=== PATIENT | male | born 1950 | race Caucasian/White ===

== ENCOUNTER → 2017-04-11 13:26 | Outpatient (CLI) | payer MEDICARE, SELFPAY ==
[2017-04-11 15:32] LABS: Absolute Lymphocyte Count 2.05 X10^3/ul (0.83-4.51); Absolute Neutrophil Count 3.3 X10^3/uL (2.0-7.7); Basophil# 0.04 X10^3/uL; Basophil% 0.6 % (0-1); Eosinophil# 0.06 X10^3/uL; Eosinophils% 0.9 % (0-5); Hematocrit 45.4 % (40-54); Hemoglobin 15.7 g/dl (13.0-16.5); Lymphocyte # 2.05 X10^3/ul (4.0); Lymphocyte % 31.9 % (19-41); Mean Corp Hgb Conc 34.6 g/gl (32-36); Mean Corpuscular Volume 92.5 fL (80-94); Mean Platelet Vol. 11.7 fl (6.2-12.0); Monocyte# 0.99 X10^3/uL; Monocyte% 15.4 % (0-10); Neutrophil # 3.28 X10^3/uL (2.7-7.7); Platelet Count 233 K/mm3 (150-450); RBC Distribution Width CV 12.3 % (11.6-14.6); RBC Distribution Width SD 40.9 fl (35.1-43.9); Red Blood Count 4.91 M/mm3 (4.6-6.2); White Blood Count 6.4 K/mm3 (4.4-11.0)
[2017-04-11 15:37] LABS: POSITIVE COUNT NO; POSITIVE DIFFERENTIAL NO; POSITIVE MORPHOLOGY NO
[2017-04-11 18:40] LABS: AST(SGOT) 27 U/L (15-37); Alanine Aminotransfer ALT/SGPT 30 U/L (16-61); Albumin, Serum 3.9 g/dL (3.2-5.0); Alkaline Phosphatase 53 U/L (45-117); Anion Gap 9 (5-15); BUN 8 mg/dL (7-18); Chloride 105 mmol/L (98-107); Cholesterol 155 mg/dL (200); Creatinine, Serum 0.89 mg/dL (0.70-1.30); EST Glomerular Filtration Rate 90 mL/min (>60); Est Glom Filt Rate - Afr Amer 109 mL/min (>60); Globulin 3.9 g/dL (2.2-4.2); Glucose 61 mg/dL (74-106); High Density Lipoprotein 48 mg/dL; Potassium 3.9 mmol/L (3.5-5.1); Prolactin 21.2 ng/mL; Protein, Total 7.8 g/dL (6.4-8.2); Sodium Level 140 mmol/L (136-145); Thyroid Stim Hormone (TSH) 1.36 uIU/mL (0.358-3.74); Triglycerides 188 mg/dL; Very Low Density Lipoprotein 38 mg/dL (5-40)
[2017-04-15 20:08] LABS: Testosterone, Free 8.26 ng/dL (5.00-21.00)
[2017-04-16 12:40] LABS: Testosterone, % Free 1.72 % (1.50-4.20); Testosterone, Total 480 ng/dL (264-916)
== END ==
PROVIDERS: Family Provider Family Medicine; PCP Family Medicine; Visit Provider Family Medicine
DX: I10 Essential (primary) hypertension (principal); E03.9 Hypothyroidism, unspecified; K76.0 Fatty (change of) liver, not elsewhere classified; Z79.899 Other long term (current) drug therapy; R53.83 Other fatigue
CPT/HCPCS: 36415; 80053; 80061; 84146; 84402; 84403; 84443; 85025

== ENCOUNTER → 2017-05-16 16:21 | Outpatient (CLI) | payer MEDICARE, SELFPAY | PROVIDERS: Family Provider Family Medicine; PCP Family Medicine; Visit Provider Urology | DX: Z12.5 Encounter for screening for malignant neoplasm of prostate (principal) | CPT/HCPCS: 36415; 84153; G0103 ==

== ENCOUNTER 2018-03-16 09:00 | Observation (INO) | payer MEDICARE, SELFPAY ==
[2017-03-24 14:55] VITALS: BMI 36.1
[2018-03-16 09:00] VITALS: BP 162/93; PULSE 89; RESP 20; TEMP 36.6; O2SAT 96; BMI 31.5
[2018-03-16 09:10] VITALS: BP 177/102; PULSE 77; RESP 16; O2SAT 96
--- NOTE | 2018-03-16 09:16 | EKG12_ITS ---
Test Reason : NAUSEA Blood Pressure : / mmHG Vent. Rate : 077 BPM Atrial Rate : 077 BPM P-R Int : 148 ms QRS Dur : 082 ms QT Int : 410 ms P-R-T Axes : 054 061 053 degrees QTc Int : 463 ms Sinus rhythm with Premature atrial complexes T wave abnormality Abnormal ECG Confirmed by JACOB MISTRY, JUAREZ ([id number]), sports editor MAIRA HERNANDES ([id number]) on 03/23/2018 1:17:23 PM Referred By: Confirmed By:JUAREZ JAMES MD
[2018-03-16] MEDS: Ondansetron 4 MG/2 ML Vial IV ×3 (09:44→22:41)
[2018-03-16] MEDS: 0.9% Normal Saline 1,000 ML 1000 ML IV (09:44)
[2018-03-16 09:52] LABS: Absolute Lymphocyte Count 1.36 X10^3/ul (0.83-4.51); Absolute Neutrophil Count 4.7 X10^3/uL (2.0-7.7); Basophil# 0.05 X10^3/uL; Basophil% 0.7 % (0-1); Eosinophil# 0.06 X10^3/uL; Eosinophils% 0.9 % (0-5); Hemoglobin 15.5 g/dl (13.0-16.5); Lymphocyte # 1.36 X10^3/ul (4.0); Lymphocyte % 20.1 % (19-41); Mean Corp Hgb Conc 33.7 g/gl (32-36); Mean Corpuscular Hgb 29.9 pg (27.0-32.0); Mean Corpuscular Volume 88.8 fL (80-94); Mean Platelet Vol. 10.6 fl (6.2-12.0); Monocyte# 0.59 X10^3/uL; Monocyte% 8.7 % (0-10); Neutrophil # 4.71 X10^3/uL (2.7-7.7); Neutrophil % 69.5 % (47-70); POSITIVE COUNT NO; POSITIVE DIFFERENTIAL NO; POSITIVE MORPHOLOGY NO; Platelet Count 254 K/mm3 (150-450); RBC Distribution Width CV 13.4 % (11.6-14.6); RBC Distribution Width SD 43.3 fl (35.1-43.9); Red Blood Count 5.18 M/mm3 (4.6-6.2); White Blood Count 6.8 K/mm3 (4.4-11.0)
[2018-03-16 10:11] LABS: Anion Gap 13 (5-15); BUN 14 mg/dL (7-18); Calcium,Total 9.2 mg/dL (8.5-10.1); Chloride 102 mmol/L (98-107); Creatinine, Serum 0.93 mg/dL (0.70-1.30); EST Glomerular Filtration Rate 85 mL/min (>60); Est Glom Filt Rate - Afr Amer 103 mL/min (>60); Glucose 100 mg/dL (74-106); Potassium 3.7 mmol/L (3.5-5.1); Sodium Level 139 mmol/L (136-145)
--- NOTE | 2018-03-16 10:30 | ED.RN ---
PER LAB GASTROCCULT POSITIVE FOR BLOOD. DR FLORES AWARE.
--- NOTE | 2018-03-16 11:57 | ED.DCSUM_ITS ---
- ER Visit Summary Date of Service: 03/16/18 Chief Complaint: Patient presents History of Present Illness: The patient is a 67 M with nausea for the past 2 days and vague crampy abdominal pain. He reports 4 loose brown watery stools with no blood or mucus noted. No risk factors for infectious diarrhea. He denies fever or chills. He does coming of thirst and dry mouth. He denies orthostatic symptoms. He did report bilateral chest pain yesterday with dyspnea. This lasted hours. He presently has no chest pain or dyspnea. There is no known history of coronary disease. He denies dysuria, frequency, urgency or hematuria. He is on no anticoagulant. Past medical history of COPD, GERD, hypertension, pulmonary embolus, hypothyroidism and neuropathy. He has had no abdominal surgery. He has undergone EGD in the past by Dr. Cole Parnell. Physical Examination: Vital signs noted and are marked for an elevated blood pressure 177 1/2. As I entered the room to examine patient he began to vomit and emesis is brown in color with specks of coffee ground appearing material. Head is atraumatic normocephalic. Pupils are equal round reactive. Extraocular muscles are intact. Conjunctive is pink. TMs are pearly white with landmarks noted. Nares patent with no drainage. Posterior pharynx without erythema or exudate. Uvula is midline. Mucosa is dry. There is no dysphonia or dysphasia. Trachea is midline. There is no stridor with auscultation of the neck. Heart is regular without murmur, gallop or rub. S1 and S2 are normal. Lungs are clear to auscultation with good movement of air bilaterally. Abdomen is slightly distended tympanitic with minimal discomfort in the epigastrium. There is no asymmetry, swelling, discoloration, leg vein distention, palpable cords or tenderness along the distribution of the deep venous system. Patient is alert and oriented ?3. Motor is 5 over 5. Sensory is intact. DTRs are symmetric with no clonus or Babinski sign. Cranial 2 through 12 are intact. Cerebellar testing is normal. Test Results: CBC, BMP and troponin are all normal. EKG revealed a sinus rhythm with no ischemic changes. Emergency Department Course and Treatment: Since patient is elderly with bilateral chest pain dyspnea EKG and chest x-ray was obtained. Gastric cyst was sent to lab and is positive for blood. In spite of Zofran he continues to vomit. He was subsequently given Reglan. Treatment Plan: IV hydration, IV Protonix consult to Dr. Galaviz for EGD. Dr. Bogdan Mcgraw he was paged and will admit patient Disposition: Medical surgical unit Impression: 1. Intractable nausea and vomiting 2. Upper GI bleed This note was generated with [employer] dictation software. It may contain incorrect words, spelling, and punctuation that were not noted in review of the chart prior to signing ED Disposition - Plan for ED Patient: Referrals: Alfred Bailey DO [Primary Care Provider] -
[2018-03-16] MEDS: Metoclopramide 10 MG/2 ML Vial 5 MG IV (12:27)
[2018-03-16 12:43] VITALS: BMI 28.3; BMI 28.4
[2018-03-16 12:45] VITALS: BP 168/82; PULSE 80; RESP 16; TEMP 36.8; O2SAT 97
--- NOTE | 2018-03-16 13:17 | NURSING ---
zofran 4mg IV push given for c/o Nausea.
--- NOTE | 2018-03-16 13:30 | CASEMGMT ---
LW/POA forms in echart, SW printed and placed on chart. BRITTNEY Harris, WALLPAPER CLEANER
[2018-03-16] MEDS: 0.9% Normal Saline 1,000 ML 100 ML IV ×2 (14:29→22:40)
[2018-03-16 14:50] VITALS: PULSE 76; RESP 20
[2018-03-16] MEDS: Ipratropium 0.5 MG/2.5 ML SOLUTION INHALATION (14:50)
--- NOTE | 2018-03-16 15:22 | HP.PCM_ITS ---
Problem List (1) GI bleed Status: Acute (2) Gastroenteritis Status: Acute History of Present Illness Date of Admission: 03/16/18 Chief Complaint: hematemasis The patient is a 67 year old M who was feeling nauseated since the morning of the 6. Was having also myalgias. Was not feeling better so presented to the emergency room. Patient had lab work that was unremarkable but lives in the restroom, patient stated that he vomited up blood. ER physician qualified it is coffee-ground emesis. And asked patient to be admitted for further evaluation of GI bleed. Patient states that he has had a history of ulcer about 40 years ago but has had no further issues. States that he takes about 1 800 mg of ibuprofen on occasion for aches and pains. [] Past Medical History Past Medical History (Chronic Problems): Chronic Problems (Last Reviewed 03/24/17 @ 14:56 by Betty Canales) Bilateral pulmonary embolism (Chronic) Hypertension (Chronic) COPD (chronic obstructive pulmonary disease) (Chronic) Hypothyroidism (Chronic) Irritable bowel syndrome (Chronic) GERD (gastroesophageal reflux disease) (Chronic) Medical History: Medical History (Last Reviewed 03/16/18 @ 15:21 by Bogdan Mcgraw DO) Hyperthyroidism E05.90 Allergies albuterol Allergy (Verified 03/16/18 09:02) Itching amoxicillin Allergy (Verified 03/16/18 09:02) doesnt rememeber happened as a child fluoxetine [From Prozac] Adverse Reaction (Verified 03/16/18 09:02) Other serotonin syndrome Home Medications: Ambulatory Orders Medication Instructions Recorded Buspirone HCl 20 mg PO TID 03/16/18 Doxepin HCl [Sinequan] 10 mg PO QHS PRN 03/16/18 Fluvoxamine Maleate [Luvox] 100 mg PO QHS 03/16/18 Levothyroxine [Synthroid] 75 mcg PO DAILY 03/16/18 Lisinopril [Zestril] 20 mg PO BID 03/16/18 Lorazepam [Ativan] 0.5 mg PO TID PRN 03/16/18 Metoclopramide [Reglan] 10 mg PO 4X/DAY 03/16/18 Pantoprazole Sodium [Protonix] 40 mg PO BID 03/16/18 Simvastatin 20 mg PO DAILY 03/16/18 Surgical History: - - surgery on right knee Psychiatric History: No pertinent psych hx Smoking Status: Former smoker Tobacco Use: Non-smoker Alcohol: None Drugs: None - *Family History Maternal History Items: Heart Disease Paternal History Items: Cancer - Father of colorectal CA Review of Systems Constitutional: Denies: Chills, Fever, Weight Change Eyes: Denies: Blurred vision, Double vision HEENT: Denies: Head Aches, Sinus Congestion, Sinus Drainage Cardiovascular: Denies: Chest Pain, Palpitations Respiratory: Denies: Cough, Shortness of breath at rest, Sputum production Gastrointestinal: Reports: Hematemesis, Nausea, Vomiting. Denies: Abdominal Pain, Hematochezia, Melena Genitourinary: Denies: Dysuria Musculoskeletal: Denies: Joint Pain, Joint Tenderness Skin: Denies: Dryness, Jaundice, Lesions Neurological: Denies: Numbness, Tingling, Focal weakness Psychiatric: Denies: Anxiety, Depression Endocrine: Denies: Change in Body Habitus Hematologic/ Lymphatic: Denies: Easy Bruising, Easy Bleeding, Hx of blood clot Comment: A 10 point review of systems were negative except as mentioned in the history of present illness and the other review of systems. VTE Information - Inpt Only VTE Present on Admission: No VTE Mechan Device Prophylaxis: SCD's VTE Pharm Prophylaxis ordered?: No Reason prophylaxis not ordered:: Medical Contraindication Patient Problems: Active and Suspected Problems (Last Reviewed 03/24/17 @ 14:56 by Betty Canales) GI bleed (Acute) Gastroenteritis (Acute) - Physical Exam General: Alert, Cooperative, No apparent distress HEENT: Atraumatic, Normocephalic Oral: Moist Mucosa, No Gingival or Mucosal Lesions/ Ulcerations Neck: No Nodes, Thyroid Normal Size and Texture Lungs: Clear to auscultation, Normal air movement, No rhonchi, No wheeze Cardiovascular: Regular rate, Regular Rhythm, Normal S1, Normal S2, No murmurs Abdomen: Bowel Sounds Present, Soft, Non Tender, Non-Distended, No Hepato-splenomegaly Extremities: No edema, No Calf Tenderness Skin: No rashes, No breakdown Psych/Mental Status: Normal Affect, Appropriate Vital Signs Temp Pulse Resp BP Pulse Ox 36.8 C 76 20 H 168/82 H 97 03/16/18 12:45 03/16/18 14:50 03/16/18 14:50 03/16/18 12:45 03/16/18 12:45 Oxygen Delivery Method Room Air Weight: 89.63 kg Body Mass Index (BMI) 28.3 Microbiology Past 72 Hours 03/16/18 09:58 Gastric Occult Blood - Final Gastric Fluid/Contents Occult Blood Positive Laboratory Tests Past 24 Hrs 03/16/18 03/16/18 09:40 09:40 WBC 6.8 RBC 5.18 Hgb 15.5 Hct 46.0 MCV 88.8 MCH 29.9 MCHC 33.7 RDW 13.4 RDW Differential 43.3 Plt Count 254 MPV 10.6 Immature Gran % (Auto) 0.100 Neut % (Auto) 69.5 Lymph % (Auto) 20.1 [place] % (Auto) 8.7 Eos % (Auto) 0.9 Baso % (Auto) 0.7 Absolute Neuts (auto) 4.7 Absolute Lymphs (auto) 1.36 Total Counted Not Reportable Sodium 139 Potassium 3.7 Chloride 102 Carbon Dioxide 24.0 Anion Gap 13 BUN 14 Creatinine 0.93 Estim Creat Clear Calc 77.40 Est GFR (MDRD) Af Amer 103 Est GFR (MDRD) Non-Af 85 BUN/Creatinine Ratio 15.0 Glucose 100 Calcium 9.2 Troponin I < 0.015 Assessment/Plan All Active Problems (Last Reviewed 03/24/17 @ 14:56 by Betty Canales) GI bleed (Acute) Gastroenteritis (Acute) Thoracic neuritis (Acute) Segmental and somatic dysfunction of cervical region (Acute) Segmental and somatic dysfunction of thoracic region (Acute) Segmental and somatic dysfunction of lumbar region (Acute) Serotonergic syndrome (Acute) TOMI (acute kidney injury) (Resolved) 1. Upper GI bleed Etiology could be Priscilla-Ernandez tear versus peptic ulcer disease. The latter is certainly feasible given the fact the patient does take ibuprofen on a semi- routine basis. Patient will be n.p.o., continued on IV Protonix, IV fluids. General surgery on consultation and plan for endoscopy on the eighth. 2. Gastroenteritis Likely viral. Patient is actually feeling better at this time. Supportive management 3. COPD Stable Continue with breathing treatments 4. DVT prophylaxis with SCDs. Chemical prophylaxis contraindicated in light of GI bleed. Code Visit Inpatient E&M: 93939 Init Hosp L2
--- NOTE | 2018-03-16 19:04 | PCM.CONS.GEN ---
Reason for Consult Date of Consultation: 03/16/18 Reason for Consultation: hematemesis/coffee grounds History of Present Illness: The patient is a 67 year old M who notes a four-day history of myalgias and nausea. The patient was feeling worse this morning and presented to the emergency department. He noted vomiting at home which she describes is clear nonbloody. He states he is a somewhat violent retcher. he then noted in episode of emesis which she described as blood and coffee grounds. This was noted by the ER physician and I was contacted for possible upper endoscopy. The patient notes a distant history of peptic ulcer disease approximate 40 years previously. The patient takes ibuprofen occasionally. He states it isn't that often but occasionally takes up to 800 mg at bedtime as needed. the patient had stable vitals. hemoglobin is 15.5 with normochromic normocytic parameters. He is not on blood thinners currently. He has a previous history of bilateral pulmonary embolisms. His additional medical history includes hypertension COPD and reflux. he takes Protonix twice a day for his reflux Past Medical History Past Medical History (Chronic Problems): Chronic Problems (Last Reviewed 03/16/18 @ 15:21 by Bogdan Mcgraw DO) Bilateral pulmonary embolism (Chronic) Hypertension (Chronic) COPD (chronic obstructive pulmonary disease) (Chronic) Hypothyroidism (Chronic) Irritable bowel syndrome (Chronic) GERD (gastroesophageal reflux disease) (Chronic) Medical History: Medical History (Last Reviewed 03/16/18 @ 15:21 by Bogdan Mcgraw DO) Hyperthyroidism E05.90 Allergies albuterol Allergy (Verified 03/16/18 09:02) Itching amoxicillin Allergy (Verified 03/16/18 09:02) doesnt rememeber happened as a child fluoxetine [From Prozac] Adverse Reaction (Verified 03/16/18 09:02) Other serotonin syndrome Home Medications: Ambulatory Orders Medication Instructions Recorded Buspirone HCl 20 mg PO TID 03/16/18 Doxepin HCl [Sinequan] 10 mg PO QHS PRN 03/16/18 Fluvoxamine Maleate [Luvox] 100 mg PO QHS 03/16/18 L.acidoph,Saliva/B.bif/S.therm 1 capsule PO DAILY 03/16/18 [Acidophilus 175 mg Capsule] Levothyroxine [Synthroid] 75 mcg PO DAILY 03/16/18 Lisinopril [Zestril] 20 mg PO BID 03/16/18 Lorazepam [Ativan] 0.5 mg PO TID PRN 03/16/18 Metoclopramide [Reglan] 10 mg PO 4X/DAY 03/16/18 Pantoprazole Sodium [Protonix] 40 mg PO BID 03/16/18 Simvastatin 20 mg PO DAILY 03/16/18 Surgical History: - - surgery on right knee Psychiatric History: No pertinent psych hx Smoking Status: Former smoker Tobacco Use: Non-smoker Alcohol: None Drugs: None - *Family History Maternal History Items: Heart Disease Paternal History Items: Cancer - Father of colorectal CA Patient Problems: Active and Suspected Problems (Last Reviewed 03/16/18 @ 15:21 by Bogdan Mcgraw DO) GI bleed (Acute) Gastroenteritis (Acute) - Physical Exam Vital Signs Temp Pulse Resp BP Pulse Ox 98.3 F 76 20 H 168/82 H 97 03/16/18 12:45 03/16/18 14:50 03/16/18 14:50 03/16/18 12:45 03/16/18 12:45 Oxygen Delivery Method Room Air Weight: 89.63 kg Body Mass Index (BMI) 28.3 Intake and Output for Last 24 Hours 03/14/18 03/15/18 03/16/18 23:59 23:59 23:59 Intake Total 502 / 502 Balance 502 / 502 Microbiology Past 72 Hours 03/16/18 09:58 Gastric Occult Blood - Final Gastric Fluid/Contents Occult Blood Positive Laboratory Tests Past 24 Hrs 03/16/18 03/16/18 09:40 09:40 WBC 6.8 RBC 5.18 Hgb 15.5 Hct 46.0 MCV 88.8 MCH 29.9 MCHC 33.7 RDW 13.4 RDW Differential 43.3 Plt Count 254 MPV 10.6 Immature Gran % (Auto) 0.100 Neut % (Auto) 69.5 Lymph % (Auto) 20.1 [place] % (Auto) 8.7 Eos % (Auto) 0.9 Baso % (Auto) 0.7 Absolute Neuts (auto) 4.7 Absolute Lymphs (auto) 1.36 Total Counted Not Reportable Sodium 139 Potassium 3.7 Chloride 102 Carbon Dioxide 24.0 Anion Gap 13 BUN 14 Creatinine 0.93 Estim Creat Clear Calc 77.40 Est GFR (MDRD) Af Amer 103 Est GFR (MDRD) Non-Af 85 BUN/Creatinine Ratio 15.0 Glucose 100 Calcium 9.2 Troponin I < 0.015 Assessment/Plan All Active Problems (Last Reviewed 03/16/18 @ 15:21 by Bogdan Mcgraw DO) GI bleed (Acute) Gastroenteritis (Acute) Thoracic neuritis (Acute) Segmental and somatic dysfunction of cervical region (Acute) Segmental and somatic dysfunction of thoracic region (Acute) Segmental and somatic dysfunction of lumbar region (Acute) Serotonergic syndrome (Acute) TOMI (acute kidney injury) (Resolved) upper GI [id number]-[id number]-Cavcf tear versus gastric ulcer in face of likely viral infection with nausea and vomiting I plan to perform upper endoscopy. The patient understands the risks, benefits, complications and possible alternatives and consents to the planned procedure.
[2018-03-16 22:30] VITALS: BP 135/84; PULSE 65; RESP 16; TEMP 36.8; O2SAT 98
[2018-03-17] VITALS (7 sets, daily range): BP systolic 118–143; BP diastolic 70–94; PULSE 61–88; RESP 16–18; TEMP 36.2–37.1; O2SAT 91–99
--- NOTE | 2018-03-17 | IMM_PTH ---
PATIENT: KIRK TELLO LOC: MS2 U#:[id number] AGE/SX: 67/M [place] [facility] [place]/16/[address]: Dr. Bogadn Mcgraw DO : 1950 BED: 1 DIS: 03/17/2018 SPEC #: [id number] RECD: 03/20/18 13:06 STATUS: JAYSON REEli #: [id number] MARIVEL: 03/17/18 00:[address]: Ki Galaviz DEPT: IMMUNOHISTOCHEMISTRY RECD BY: Deedee Wan ENTERED: 03/20/18 13:07 SP TYPE: IMMUNO OTHR DR: DO Dr. Alfred Yeung DO Tissues: Stomach, NOS Procedures: H Pylori (initial) PHYSICIAN & INSTITUTION [place] [id number] SPECIMEN INFORMATION: Tissue Source: Antral biopsy Clinical Info: Upper GI bleed Specimen Number: [id number] CPT code: 22788 METHODOLOGY: Deparaffinized sections of prefer/formalin-fixed tissue or PAP/DQ stained slides are incubated with monoclonal/polyclonal antibodies/oligonucleotide probes. Localization is made via biotin free immunoperoxidase method. Appropriate controls are performed and reacted as expected. Results on target cell population are indicated in the following table: RESULTS: ANTIBODY / CLONE RESULT H Pylori (polyclonal) negative These tests were developed and their performance characteristics determined by [facility]. They may not have been cleared or approved by the [place]. Food and Drug Administration. The FDA has determined that such clearance or approval is not necessary. INTERPRETATION: Antral biopsy: Negative for Helicobacter pylori organisms. SJ:markus 03/21/18
[2018-03-17 06:10] LABS: Absolute Lymphocyte Count 1.32 X10^3/ul (0.83-4.51); Absolute Neutrophil Count 2.9 X10^3/uL (2.0-7.7); Basophil# 0.06 X10^3/uL; Eosinophils% 12.2 % (0-5); Lymphocyte # 1.32 X10^3/ul (4.0); Mean Corp Hgb Conc 33.3 g/gl (32-36); Mean Corpuscular Hgb 29.9 pg (27.0-32.0); Mean Corpuscular Volume 89.7 fL (80-94); Mean Platelet Vol. 10.3 fl (6.2-12.0); Monocyte# 0.72 X10^3/uL; Monocyte% 12.5 % (0-10); Neutrophil # 2.94 X10^3/uL (2.7-7.7); Neutrophil % 51.3 % (47-70); Platelet Count 204 K/mm3 (150-450); RBC Distribution Width CV 13.5 % (11.6-14.6); RBC Distribution Width SD 43.6 fl (35.1-43.9); Red Blood Count 4.68 M/mm3 (4.6-6.2); White Blood Count 5.7 K/mm3 (4.4-11.0)
[2018-03-17 06:14] LABS: POSITIVE COUNT NO; POSITIVE DIFFERENTIAL NO; POSITIVE MORPHOLOGY NO
[2018-03-17 06:34] LABS: Anion Gap 9 (5-15); BUN 10 mg/dL (7-18); BUN/Creat Ratio 12.2 RATIO (10-20); Calcium,Total 8.4 mg/dL (8.5-10.1); Chloride 108 mmol/L (98-107); Creatinine, Serum 0.82 mg/dL (0.70-1.30); EST Glomerular Filtration Rate 99 mL/min (>60); Est Glom Filt Rate - Afr Amer 120 mL/min (>60); Estimated Creatinine Clearance 87.79 ml/min; Glucose 76 mg/dL (74-106); Potassium 3.4 mmol/L (3.5-5.1); Sodium Level 142 mmol/L (136-145); Thyroid Stim Hormone (TSH) 2.22 uIU/mL (0.358-3.74)
[2018-03-17] MEDS: Ipratropium 0.5 MG/2.5 ML SOLUTION INHALATION (07:29)
[2018-03-17] MEDS: Potassium Chloride 10mEq/100mL 10 MEQ/100 ML IV.SOLN. 100 MEQ IV BOLUS ×4 (07:58→13:45)
[2018-03-17] MEDS: 0.9% Normal Saline 1,000 ML 100 ML IV (08:47)
--- NOTE | 2018-03-17 09:21 | PN_ITS ---
Patient Problems: Active and Suspected Problems (Last Reviewed 03/16/18 @ 15:21 by Bogdan Mcgraw DO) GI bleed (Acute) Gastroenteritis (Acute) Subjective: Feels good. No further nausea, vomiting nor hematemesis. Vitals/I&O's: Vital Signs Temp Pulse Resp BP Pulse Ox 36.3 C L 77 17 125/73 H 94 03/17/18 03:39 03/17/18 07:30 03/17/18 07:30 03/17/18 03:39 03/17/18 07:30 Oxygen Delivery Method Room Air Weight: 89.63 kg Body Mass Index (BMI) 28.3 Intake and Output for Last 24 Hours 03/15/18 03/16/18 03/17/18 23:59 23:59 23:59 Intake Total 502 / 502 1181 / 1181 Balance 502 / 502 1181 / 1181 General: Alert, No apparent distress HEENT: Atraumatic, Normocephalic Oral: Moist Mucosa, No Gingival or Mucosal Lesions/ Ulcerations Neck: No Nodes, Thyroid Normal Size and Texture Lungs: Clear to auscultation, Normal air movement, No rhonchi, No wheeze Cardiovascular: Regular rate, Regular Rhythm, Normal S1, Normal S2 Abdomen: Bowel Sounds Present, Soft, Non Tender, Non-Distended, No Hepato- splenomegaly Extremities: No edema, No Calf Tenderness Microbiology Past 72 Hours 03/16/18 09:58 Gastric Fluid/Contents Gastric Occult Blood - Final Occult Blood Positive Laboratory Results 03/16/18 09:40: WBC 6.8, RBC 5.18, Hgb 15.5, Hct 46.0, MCV 88.8, MCH 29.9, MCHC 33.7, RDW 13.4, RDW Differential 43.3, Plt Count 254, MPV 10.6, Immature Gran % (Auto) 0.100, Neut % (Auto) 69.5, Lymph % (Auto) 20.1, [place] % (Auto) 8.7, Eos % (Auto) 0.9, Baso % (Auto) 0.7, Absolute Neuts (auto) 4.7, Absolute Lymphs (auto) 1.36, Total Counted Not Reportable 03/16/18 09:40: Sodium 139, Potassium 3.7, Chloride 102, Carbon Dioxide 24.0, Anion Gap 13, BUN 14, Creatinine 0.93, Estim Creat Clear Calc 77.40, Est GFR (MDRD) Af Amer 103, Est GFR (MDRD) Non-Af 85, BUN/Creatinine Ratio 15.0, Glucose 100, Calcium 9.2, Troponin I < 0.015 03/17/18 05:57: WBC 5.7, RBC 4.68, Hgb 14.0, Hct 42.0, MCV 89.7, MCH 29.9, MCHC 33.3, RDW 13.5, RDW Differential 43.6, Plt Count 204, MPV 10.3, Immature Gran % (Auto) 0.000, Neut % (Auto) 51.3, Lymph % (Auto) 23.0, [place] % (Auto) 12.5 H, Eos % (Auto) 12.2 H, Baso % (Auto) 1.0, Absolute Neuts (auto) 2.9, Absolute Lymphs (auto) 1.32, Total Counted Not Reportable 03/17/18 05:57: Sodium 142, Potassium 3.4 L, Chloride 108 H, Carbon Dioxide 25.0, Anion Gap 9, BUN 10, Creatinine 0.82, Estim Creat Clear Calc 87.79, Est GFR (MDRD) Af Amer 120, Est GFR (MDRD) Non-Af 99, BUN/Creatinine Ratio 12.2, Glucose 76, Calcium 8.4 L, TSH 2.22 Current Medications Sodium Chloride () 1,000 mls @ 100 mls/hr IV .Q10H ON LICENSE OF [facility] Last Admin: 03/17/18 08:47 Dose: 100 mls/hr Pantoprazole Sodium 40 mg/ (Sodium Chloride) 110 mls @ 330 mls/hr IV Q24 ON LICENSE OF [facility] Potassium Chloride () 10 meq in 100 mls @ 100 mls/hr IV BOLUS Q1H MINGO Stop: 03/17/18 11:59 Last Admin: 03/17/18 09:12 Dose: 100 mls/hr Ipratropium [place] (Atrovent) 0.5 mg INHALATION Q6HWA.RT ON LICENSE OF [facility] Last Admin: 03/17/18 07:29 Dose: 0.5 mg Magnesium Hydroxide (Milk Of Magnesia) 30 ml PO DAILY PRN PRN PRN Reason: Constipation Morphine Sulfate () 2 - 4 mg IV Q4H PRN PRN PRN Reason: MOD-SEVERE PAIN (4-10/10) Ondansetron HCl (Zofran) 4 mg IV Q8H PRN PRN PRN Reason: NAUSEA Last Admin: 03/16/18 22:41 Dose: 4 mg Sodium Chloride () 5 - 15 ml IV UD PRN PRN Reason: SALINE FLUSH Medical Necessity - Tobacco Use Smoking Status: Former smoker Tobacco Use: Non-smoker Assessment/Plan All Active Problems (Last Reviewed 03/16/18 @ 15:21 by Bogdan Mcgraw DO) GI bleed (Acute) Gastroenteritis (Acute) Thoracic neuritis (Acute) Segmental and somatic dysfunction of cervical region (Acute) Segmental and somatic dysfunction of thoracic region (Acute) Segmental and somatic dysfunction of lumbar region (Acute) Serotonergic syndrome (Acute) TOMI (acute kidney injury) (Resolved) 1. Upper GI bleed Etiology could be Priscilla-Ernandez tear versus peptic ulcer disease. The latter is certainly feasible given the fact the patient does take ibuprofen on a semi- routine basis. Patient will be n.p.o., continued on IV Protonix, IV fluids. General surgery on consultation and plan for endoscopy on the eighth. 2. Gastroenteritis Likely viral. Patient is actually feeling better at this time. Supportive management 3. COPD Stable Continue with breathing treatments 4. DVT prophylaxis with SCDs. Chemical prophylaxis contraindicated in light of GI bleed. Code Visit Inpatient E&M: 70479 Subs Hosp L2
[2018-03-17] MEDS: 0.9% NaCl Peripheral Flush Adult/Peds IV (09:56)
[2018-03-17] MEDS: Ondansetron 4 MG/2 ML Vial IV ×2 (09:56→17:44)
--- NOTE | 2018-03-17 12:20 | EGD_PTH ---
PATIENT: KIRK TELLO LOC: MS2 U#:[id number] AGE/SX: 67/M ROOM: [facility] [place] RE03/16/[address]: Dr. Bogdan Mcgraw DO : 1950 BED: 1 DIS: 03/17/2018 SPEC #: [id number] RECD: 03/17/18 13:16 STATUS: JAYSON REQ #: [id number] MARIVEL: 03/17/18 12:[address]: Ki Galaviz DEPT: SURGICAL PATHOLOGY RECD BY: Zbigniew Gimenez ENTERED: 03/17/18 13:33 SP TYPE: EGD BIOPSY OTHR DR: DO Dr. Alfred Yeung DO Tissues: Gastric mucous membrane Procedures: Surgery Specimen Level IV Comments: @ Ordering doctor for SUIV edited from to @ by JACKY at 03/17/18 133 @ Submitting doctor edited from to @ by JACKY at 03/17/18 1334 HEADER OPERATION: EGD ([facility] [place]) PRE-OP DIAGNOSIS: Upper GI bleed TISSUE SUBMITTED: Antral biopsy MICROSCOPIC DIAGNOSIS Antral biopsy: Minimal congestion and chronic inflammation. See microscopic description and comment. TAYA:markus 03/20/18 COMMENT The results of immunohistochemistry for Helicobacter pylori will be reported separately ([id number]). MICROSCOPIC DESCRIPTION Slides are reviewed. The specimen shows fragments of gastric mucosa with chronic inflammatory cell infiltrates in the lamina propria consisting of lymphocytes and plasma cells, consistent with mild chronic gastritis. Minimal congestion is also noted. GROSS DESCRIPTION Received in fixative is one container labeled with the patient's name and designated antral biopsy. The specimen consists of one irregular fragment of light [place] soft tissue that measures 0.3 x 0.3 x 0.1 cm. The specimen is totally submitted in one cassette. / TAYA:markus 03/17/18 TC:3 CPT: 94297
--- NOTE | 2018-03-17 13:05 | OP.ENDO_ITS ---
Patient Name: Brian Segura Procedure Date: 03/17/2018 12:57 PM Date of : 1950 Age: 67 Procedure: Upper GI endoscopy Indications: Hematemesis Providers: Ki Galaviz MD Medicines: Monitored Anesthesia Care Patient Profile: This is a 67 year old male. Refer to note in patient chart for documentation of history and physical. Complications: No immediate complications. Procedure: Pre-Anesthesia Assessment: - Prior to the procedure, a History and Physical was performed, and patient medications and allergies were reviewed. The patient is competent. The risks and benefits of the procedure and the sedation options and risks were discussed with the patient. All questions were answered and informed consent was obtained. Patient identification and proposed procedure were verified by the physician, the nurse and the pre sales architect in the procedure room. Mental Status Examination: alert and oriented. Airway Examination: normal oropharyngeal airway and neck mobility. Respiratory Examination: clear to auscultation. CV Examination: normal. Prophylactic Antibiotics: The patient does not require prophylactic antibiotics. Prior Anticoagulants: The patient has taken no previous anticoagulant or antiplatelet agents. ASA Grade Assessment: III - A patient with severe systemic disease. After reviewing the risks and benefits, the patient was deemed in satisfactory condition to undergo the procedure. The anesthesia plan was to use monitored anesthesia care (MAC). Immediately prior to administration of medications, the patient was re-assessed for adequacy to receive sedatives. The heart rate, respiratory rate, oxygen saturations, blood pressure, adequacy of pulmonary ventilation, and response to care were monitored throughout the procedure. The physical status of the patient was re-assessed after the procedure. After obtaining informed consent, the endoscope was passed under direct vision. Throughout the procedure, the patient's blood pressure, pulse, and oxygen saturations were monitored continuously. The gastroscope was introduced through the mouth, and advanced to the jejunum. The upper GI endoscopy was accomplished without difficulty. The patient tolerated the procedure well. Scope In: 12:56:06 PM Scope Out: 1:01:10 PM Total Procedure Duration Time 0 hours 5 minutes 4 seconds Findings: The examined jejunum was normal. One non-bleeding cratered duodenal ulcer with no stigmata of bleeding was found in the duodenal bulb. The lesion was 5 mm in largest dimension. Scattered mild inflammation characterized by erosions and erythema was found in the gastric antrum. Biopsies were taken with a cold forceps for Helicobacter pylori testing using PyloriTek test. Biopsies were taken with a cold forceps for histology. The exam of the stomach was otherwise normal. Non-severe esophagitis with no bleeding was found. Impression: - Normal examined jejunum. - One non-bleeding duodenal ulcer with no stigmata of bleeding. - Gastritis. Biopsied. - Non-severe esophagitis. Recommendation: - Await pathology results. - Use Protonix (pantoprazole) 40 mg PO BID. - Continue present medications. Procedure Code(s): --- Professional --- 81690, Esophagogastroduodenoscopy, flexible, transoral; with biopsy, single or multiple CPT copyright 2017 [employer]. All rights reserved. The codes documented in this report are preliminary and upon nonprofit director review may be revised to meet current compliance requirements. Ki Galaviz MD 03/17/2018 1:04:18 PM This report has been signed electronically. Number of Addenda: 0 Note Initiated On: 03/17/2018 12:57 PM
--- NOTE | 2018-03-17 13:05 | PCM.PN.SRG ---
Patient Problems: Active and Suspected Problems (Last Reviewed 03/16/18 @ 15:21 by Bogdan Mcgraw DO) GI bleed (Acute) Gastroenteritis (Acute) Subjective: no further vomiting, still complaint of nausea - Physical Exam General: Alert, Oriented x3, Cooperative Lungs: Clear to auscultation, Normal air movement Cardiovascular: Regular rate, No murmurs Abdomen: Bowel Sounds Present, Soft, Non Tender Vital Signs Temp Pulse Resp BP Pulse Ox 97.5 F L 61 16 133/76 H 94 03/17/18 09:30 03/17/18 09:30 03/17/18 09:30 03/17/18 09:30 03/17/18 09:30 Oxygen Delivery Method Room Air Weight: 89.63 kg Body Mass Index (BMI) 28.3 Intake and Output for Last 24 Hours 03/15/18 03/16/18 03/17/18 23:59 23:59 23:59 Intake Total 502 / 502 1181 / 1181 Balance 502 / 502 1181 / 1181 Microbiology Past 72 Hours 03/16/18 09:58 Gastric Occult Blood - Final Gastric Fluid/Contents Occult Blood Positive Laboratory Tests Past 24 Hrs 03/17/18 03/17/18 05:57 05:57 WBC 5.7 RBC 4.68 Hgb 14.0 Hct 42.0 MCV 89.7 MCH 29.9 MCHC 33.3 RDW 13.5 RDW Differential 43.6 Plt Count 204 MPV 10.3 Immature Gran % (Auto) 0.000 Neut % (Auto) 51.3 Lymph % (Auto) 23.0 [place] % (Auto) 12.5 H Eos % (Auto) 12.2 H Baso % (Auto) 1.0 Absolute Neuts (auto) 2.9 Absolute Lymphs (auto) 1.32 Total Counted Not Reportable Sodium 142 Potassium 3.4 L Chloride 108 H Carbon Dioxide 25.0 Anion Gap 9 BUN 10 Creatinine 0.82 Estim Creat Clear Calc 87.79 Est GFR (MDRD) Af Amer 120 Est GFR (MDRD) Non-Af 99 BUN/Creatinine Ratio 12.2 Glucose 76 Calcium 8.4 L TSH 2.22 Medical Necessity - Tobacco Use Smoking Status: Former smoker Tobacco Use: Non-smoker Assessment/Plan All Active Problems (Last Reviewed 03/16/18 @ 15:21 by Bogdan Jopperi, DO) GI bleed (Acute) Gastroenteritis (Acute) Thoracic neuritis (Acute) Segmental and somatic dysfunction of cervical region (Acute) Segmental and somatic dysfunction of thoracic region (Acute) Segmental and somatic dysfunction of lumbar region (Acute) Serotonergic syndrome (Acute) TOMI (acute kidney injury) (Resolved) Duodenal ulcer upper endoscopy demonstrated a duodenal ulcer with a white base - no signs of recent bleeding. stomach mild gastritis, GE junction - mild reflux changes. Would continue PPI's. Advance diet as tolerated
--- NOTE | 2018-03-17 14:06 | CASEMGMT ---
RN CM Assessment Presentation: CHEKO Mercedes role of CM and purpose of RN CM assessment PCP: Dr. Bailey [facility]erred [facility] Insurance:[facility] Prescription Benefit: yes LNOK: Living Arrangements: pt is independent, states does not use DME except CPAP @ night. Transportation: Drives DME/HHC: CPAP DC PLAN: Home, pt and state no needs. Leodan KING RN ACM
--- NOTE | 2018-03-17 14:57 | DCINST_ITS ---
- Discharge Diagnoses Current Active Problems: Current Active and Chronic Problems (Last Reviewed 03/16/18 @ 15:21 by Bogdan Mcgraw DO) GI bleed (Acute) Gastroenteritis (Acute) You will use the following diet at home:: Other - bland, advance as tolerated. Your food should be the consistency of: Regular Your liquids should be the consistency of: Regular/Thin Discharge Activity: Return to Normal Activity Call your doctor if you observe: - - intractable nausea and/or vomiting. vomiting blood. blood in stool, dark tarry stool. Allergies/Adverse Reactions: Allergies albuterol Allergy (Verified 03/16/18 09:02) Itching amoxicillin Allergy (Verified 03/16/18 09:02) doesnt rememeber happened as a child fluoxetine [From Prozac] Adverse Reaction (Verified 03/16/18 09:02) Other serotonin syndrome Medications to take at Discharge Buspirone HCl 20 mg PO TID 03/16/18 Doxepin HCl [Sinequan] 10 mg PO QHS PRN 03/16/18 Fluvoxamine Maleate [Luvox] 100 mg PO QHS 03/16/18 L.acidoph,Saliva/B.bif/S.therm [Acidophilus 175 mg Capsule] 1 capsule PO DAILY 03/16/18 Levothyroxine [Synthroid] 75 mcg PO DAILY 03/16/18 Lisinopril [Zestril] 20 mg PO BID 03/16/18 Lorazepam [Ativan] 0.5 mg PO TID PRN 03/16/18 Pantoprazole Sodium [Protonix] 40 mg PO BID 03/16/18 Simvastatin 20 mg PO DAILY 03/16/18 Metoclopramide [Reglan] 10 mg PO 4X/DAY PRN #0 03/17/18 Ondansetron [Zofran] 8 mg SL Q8H PRN PRN #20 tablet 03/17/18 The following prescriptions were given: Ondansetron [Zofran] 8 mg SL Q8H PRN PRN #20 tablet PRN Reason: nausea vomiting. Primary Care Physician: Alfred Bailey DO [Primary Care Provider] - Within 2 Weeks Test Results: Test results from this visit will be discussed in further detail at your follow- up appointment, if applicable. Please Follow Up With: Ki Galaviz MD When: 1 week. Proposed Discharge Date: 03/17/18
--- NOTE | 2018-03-17 14:58 | PCM.DC.SUM ---
Discharge Date and Diagnosis - Problem List Patient Problems: Active and Suspected Problems (Last Reviewed 03/16/18 @ 15:21 by Bogdan Mcgraw DO) Duodenal ulcer (Acute) GI bleed (Acute) Gastroenteritis (Acute) Date of Admission: 03/16/18 Date of Discharge: 03/17/18 - Primary Discharge Diagnosis Active and Suspected Problems (Last Reviewed 03/16/18 @ 15:21 by Bogdan Mcgraw DO) Duodenal ulcer (Acute) GI bleed (Acute) Gastroenteritis (Acute) - Secondary Discharge Diagnosis Chronic Problems (Last Reviewed 03/16/18 @ 15:21 by Bogdan Mcgraw DO) Bilateral pulmonary embolism (Chronic) Hypertension (Chronic) COPD (chronic obstructive pulmonary disease) (Chronic) Hypothyroidism (Chronic) Irritable bowel syndrome (Chronic) GERD (gastroesophageal reflux disease) (Chronic) Hospital Course and Treatment Operations: None Procedures: EGD Summary of Care Provided: The patient is a 67 year old M presents with nausea. Patient presented to the emergency room with that but while he was in the emergency room patient had coffee-ground emesis. He had no further hematemesis while he was here. Patient was started on Protonix IV. Patient underwent EGD today that showed a clean-based duodenal ulcer. No evidence of bleeding was noted. Is felt that the ulcer was likely culprit of his bleeding. Discussed with the patient and his today. Patient states that he is concerned about his nausea because he gets nauseated and does not throw up though he did throw up while he was in the emergency room. I reviewed the patient's medications with him and talk to him about the Reglan he is on. He states that he takes Reglan with meals but only eats one meal per day. I advised patient and his about the risks of tardive dyskinesia with chronic use of metoclopramide and advised using it very sparingly if at all. I did encourage patient to eat more than 1 meal per day as if he is not eating sufficiently is can impede healing of his ulcer. Patient was checked for H. pylori which is currently pending at this time. Patient does take ibuprofen intermittently patient is advised to avoid all NSAIDs. If patient is able to tolerate his dinner this evening be discharged. I told the patient I will give him a prescription for Zofran to take. Patient states that he takes pantoprazole once daily, though on his med rec, it is listed as twice daily, and advised him to take it twice daily and to follow-up with Dr. Franco in 1 week. [] Patient Problems: Active and Suspected Problems (Last Reviewed 03/16/18 @ 15:21 by Bogdan Mcgraw DO) Duodenal ulcer (Acute) GI bleed (Acute) Gastroenteritis (Acute) - Physical Exam Vital Signs Temp Pulse Resp BP Pulse Ox 36.4 C L 65 18 143/81 H 96 03/17/18 14:08 03/17/18 14:08 03/17/18 14:08 03/17/18 14:08 03/17/18 14:08 Oxygen Delivery Method Room Air Weight: 89.63 kg Body Mass Index (BMI) 28.3 Intake and Output for Last 24 Hours 03/15/18 03/16/18 03/17/18 23:59 23:59 23:59 Intake Total 502 / 502 1181 / 1181 Output Total 0 / 0 Balance 502 / 502 1181 / 1181 Microbiology Past 72 Hours 03/16/18 09:58 Gastric Occult Blood - Final Gastric Fluid/Contents Occult Blood Positive Laboratory Tests Past 24 Hrs 03/17/18 03/17/18 05:57 05:57 WBC 5.7 RBC 4.68 Hgb 14.0 Hct 42.0 MCV 89.7 MCH 29.9 MCHC 33.3 RDW 13.5 RDW Differential 43.6 Plt Count 204 MPV 10.3 Immature Gran % (Auto) 0.000 Neut % (Auto) 51.3 Lymph % (Auto) 23.0 [place] % (Auto) 12.5 H Eos % (Auto) 12.2 H Baso % (Auto) 1.0 Absolute Neuts (auto) 2.9 Absolute Lymphs (auto) 1.32 Total Counted Not Reportable Sodium 142 Potassium 3.4 L Chloride 108 H Carbon Dioxide 25.0 Anion Gap 9 BUN 10 Creatinine 0.82 Estim Creat Clear Calc 87.79 Est GFR (MDRD) Af Amer 120 Est GFR (MDRD) Non-Af 99 BUN/Creatinine Ratio 12.2 Glucose 76 Calcium 8.4 L TSH 2.22 Discharge Diet: - - bland, advance as tolerated. Discharge Activity: Return to Normal Activity Call your doctor if you observe: - - intractable nausea and/or vomiting. vomiting blood. blood in stool, dark tarry stool. Home Medications: Medications to take at Discharge Buspirone HCl 20 mg PO TID 03/16/18 Doxepin HCl [Sinequan] 10 mg PO QHS PRN 03/16/18 Fluvoxamine Maleate [Luvox] 100 mg PO QHS 03/16/18 L.acidoph,Saliva/B.bif/S.therm [Acidophilus 175 mg Capsule] 1 capsule PO DAILY 03/16/18 Levothyroxine [Synthroid] 75 mcg PO DAILY 03/16/18 Lisinopril [Zestril] 20 mg PO BID 03/16/18 Lorazepam [Ativan] 0.5 mg PO TID PRN 03/16/18 Pantoprazole Sodium [Protonix] 40 mg PO BID 03/16/18 Simvastatin 20 mg PO DAILY 03/16/18 Metoclopramide [Reglan] 10 mg PO 4X/DAY PRN #0 03/17/18 Ondansetron [Zofran] 8 mg SL Q8H PRN PRN #20 tablet 03/17/18 Following Prescrptions Were Given to Patient: Ondansetron [Zofran] 8 mg SL Q8H PRN PRN #20 tablet PRN Reason: nausea vomiting. Primary Care Physician: Alfred Bailey DO [Primary Care Provider] - Within 2 Weeks Please Follow Up With: Ki Galaviz MD When: 1 week. Disposition: Home Minutes spent on discharge:: 40 Patient Condition:: Good Medical Necessity - Tobacco Use Smoking Status: Former smoker Tobacco Use: Non-smoker Meaningful Use Info Meaningful Use Diagnoses (Choose all that apply): None applicable Code Visit Inpatient E&M: 45541 Disch Hosp
== END 2018-03-17 18:38 | disposition home or self-care (01) ==
LOC: ED 11:58 → MS2 12:38
PROVIDERS: Surgery; Emergency Provider Emergency Medicine; Family Provider Family Medicine; PCP Family Medicine
PROC: 0DJ08ZZ Inspection of Upper Intestinal Tract, Via Natural or Artificial Opening Endoscopic (ICD-10-PCS; CPT 43235; principal; 2018-03-17 12:15)
DX: K26.9 Duodenal ulcer, unspecified as acute or chronic, without hemorrhage or perforation (principal); K52.9 Noninfective gastroenteritis and colitis, unspecified; K92.2 Gastrointestinal hemorrhage, unspecified; J44.9 Chronic obstructive pulmonary disease, unspecified; I10 Essential (primary) hypertension; K21.9 Gastro-esophageal reflux disease without esophagitis; E03.9 Hypothyroidism, unspecified; G62.9 Polyneuropathy, unspecified; M99.01 Segmental and somatic dysfunction of cervical region; M99.03 Segmental and somatic dysfunction of lumbar region; M99.02 Segmental and somatic dysfunction of thoracic region; K58.9 Irritable bowel syndrome, unspecified; Z87.891 Personal history of nicotine dependence; Z79.899 Other long term (current) drug therapy; Z86.711 Personal history of pulmonary embolism; Z87.11 Personal history of peptic ulcer disease; G47.30 Sleep apnea, unspecified
CPT/HCPCS: 43239; 36415; 80048; 82271; 84443; 84484; 85025; 88305; 88342; 93005; 94640; 96361; 96365; 96366; 96374; 96375; 96376; 99218; 99284; J7030; J7040; A4216; G0378; G0379; J2405; J3490

== ENCOUNTER → 2018-07-06 | Outpatient (CLI) | payer MEDICARE, SELFPAY ==
[2018-03-16 12:43] VITALS: BMI 28.3
[2018-07-06 17:25] LABS: Hematocrit 46.9 % (40-54); Hemoglobin 16.3 g/dl (13.0-16.5); Mean Corp Hgb Conc 34.8 g/gl (32-36); Mean Corpuscular Hgb 29.6 pg (27.0-32.0); Mean Corpuscular Volume 85.3 fL (80-94); Mean Platelet Vol. 11.7 fl (6.2-12.0); Platelet Count 218 K/mm3 (150-450); RBC Distribution Width SD 40.4 fl (35.1-43.9); White Blood Count 5.3 K/mm3 (4.4-11.0)
[2018-07-06 17:31] LABS: Scan Indicated on CBC? Y/N NO
[2018-07-06 17:44] LABS: Vitamin B12 1278 pg/mL (211-911); Vitamin D,25 Hydroxy 22.2 ng/mL (29.95-100.01)
[2018-07-06 17:48] LABS: ALB/GLOB Ratio 0.9 RATIO (0.9-2.4); AST(SGOT) 17 U/L (15-37); Alanine Aminotransfer ALT/SGPT 17 U/L (16-61); Albumin, Serum 3.6 g/dL (3.2-5.0); Alkaline Phosphatase 71 U/L (45-117); Anion Gap 11 (5-15); BUN 18 mg/dL (7-18); BUN/Creat Ratio 23.1 RATIO (10-20); Calcium,Total 9.3 mg/dL (8.5-10.1); Chloride 104 mmol/L (98-107); Creatinine, Serum 0.78 mg/dL (0.70-1.30); EST Glomerular Filtration Rate 105 mL/min (>60); Est Glom Filt Rate - Afr Amer 127 mL/min (>60); Globulin 3.8 g/dL (2.2-4.2); Glucose 77 mg/dL (74-106); Potassium 3.7 mmol/L (3.5-5.1); Protein, Total 7.4 g/dL (6.4-8.2); Sodium Level 139 mmol/L (136-145); Thyroid Stim Hormone (TSH) 1.31 uIU/mL (0.358-3.74)
== END | disposition home or self-care (01) ==
PROVIDERS: Family Provider Family Medicine; PCP Family Medicine; Visit Provider Psychiatry & Neurology Psychiatry
DX: E55.9 Vitamin D deficiency, unspecified (principal); R53.83 Other fatigue; Z79.899 Other long term (current) drug therapy
CPT/HCPCS: 36415; 80053; 82306; 82607; 84443; 85027

== ENCOUNTER 2018-09-11 08:16 | Emergency (ER) | payer MEDICARE, SELFPAY ==
[2018-03-16 12:43] VITALS: BMI 28.3
[2018-09-11 08:16] VITALS: BP 117/97; PULSE 104; RESP 20; TEMP 36.8; O2SAT 94; BMI 27.1
--- NOTE | 2018-09-11 08:41 | EKG12_ITS ---
Test Reason : CP Blood Pressure : / mmHG Vent. Rate : 105 BPM Atrial Rate : 105 BPM P-R Int : 134 ms QRS Dur : 080 ms QT Int : 368 ms P-R-T Axes : 060 069 049 degrees QTc Int : 486 ms Sinus tachycardia with Premature atrial complexes Cannot rule out Inferior infarct , age undetermined Abnormal ECG Confirmed by CHASE ANAYA ([id number]), book editor MAIRA HERNANDES ([id number]) on 09/13/2018 3:26:10 PM Referred By: DARRICK Confirmed By:CHASE ANAYA
--- NOTE | 2018-09-11 08:41 | RAD_ITS ---
STUDY: X-RAY CHEST REASON FOR EXAM: Male, 68 years old. 24-hour history of sternal chest pain. TECHNIQUE: Single AP portable view of the chest. COMPARISON: Comparison is made with prior study dated April 17, 2016. FINDINGS: EKG electrodes are seen. Hyperinflation. The lungs are clear. There is no demonstrated pleural abnormality. Normal size heart. Normal mediastinum and enzo. Normal visualized pulmonary arteries. There is atherosclerotic tortuosity of the aortic arch and descending thoracic aorta. There are diffuse degenerative changes of the visualized thoracic spine. Normal visualized ribs, clavicles, and shoulders. There is no demonstrated abnormality of the visualized soft tissue structures of the upper abdomen. RAD/Chest 1 View (Portable) IMPRESSION: Hyperinflation. The lungs are clear. Electronically Signed: Rashid Doherty, at 9:04 EDT , Service support ,
--- NOTE | 2018-09-11 08:45 | ED.DCSUM_ITS ---
- ER Visit Summary Date of Service: 09/11/18 Chief Complaint: Chest pain History of Present Illness: The patient is a 68 M [place] the emergency department with 24 hours of a constant lower midsternal sharp chest pain. It is nonradiating. He states that when the pain is there he is not nauseated. When the patient does not have pain he is nauseated. For 3 days preceding yesterday he would wake each morning with pain and then it would resolve after several hours. He states that he is not currently taking any antacid medications. He was taking some antacid medication at the end of March when he was diagnosed with a duodenal ulcer. Because he thought that this was from a new ulcer he has been taking Mylanta and an unknown antacid. He denies any shortness of breath. He states he feels anxious. He states that he has had stress test and heart catheterization in the past but those have not revealed any coronary artery disease. He denies any black or bloody stools. He is not on any anticoagulation. Physical Examination: Afebrile vital signs stable Gen: Well-nourished well-developed patient is belching Head: Normocephalic atraumatic Eyes: Perrl EOMI ENT: TMs clear no rhinorrhea moist mucous membranes Neck: Supple no lymphadenopathy no JVD nontender CVS: Regular rate rhythm no murmurs normal S1-S2 Respiratory: No distress clear to auscultation bilaterally chest nontender Abdomen: Soft nontender nondistended normal bowel sounds no masses Back: Nontender Extremity: Nontender no edema Skin: Normal color no rash Neuro: alert orientated ?3 CN II-XII intact normal strength sensation Psych: Anxious appearing Test Results: EKG showed a sinus rhythm at a rate of 105. Labs are negative and to reiterate this troponin is 24 hours with constant pain. Chest x-ray is negative. Emergency Department Course and Treatment: During my examination the patient's heart rate was in the 80s. Patient received a GI cocktail. He is pain-free but now notes nausea and he received Zofran. The patient maintains that he does not take any daily antacid medications. He does not remember being sent home on Protonix after his diagnosis of duodenal ulcer in March. We will place the patient on twice daily Pepcid and asked that he follow-up with his doctor. Also write for some Zofran at home. Impression: 1. Acute chest pain 2. GERD This note was generated with [employer] dictation software. It may contain incorrect words, spelling, and punctuation that were not noted in review of the chart prior to signing ED Disposition - Plan for ED Patient: Disposition: Home or Assisted Living Instructions: CHEST PAIN, Uncertain Cause, GERD (Adult) Prescriptions: Famotidine [Pepcid] 20 mg PO BID #28 tab Prescription Printed Ondansetron [Zofran Odt] 4 mg PO Q8H PRN PRN #10 tab PRN Reason: Nausea Prescription Printed Referrals: Alfred Bailey DO [Primary Care Provider] - 1 Week
[2018-09-11 08:47] VITALS: O2SAT 97
[2018-09-11 08:48] LABS: Absolute Neutrophil Count 4.9 X10^3/uL (2.0-7.7); Basophil# 0.04 X10^3/uL; Basophil% 0.6 % (0-1); Eosinophil# 0.03 X10^3/uL; Eosinophils% 0.4 % (0-5); Hematocrit 43.5 % (40-54); Hemoglobin 15.1 g/dL (13.0-16.5); Lymphocyte % 18.9 % (19-41); Mean Corp Hgb Conc 34.7 g/dL (32-36); Mean Corpuscular Hgb 30.5 pg (27.0-32.0); Mean Corpuscular Volume 87.9 fL (80-94); Mean Platelet Vol. 10.3 fl (6.2-12.0); Monocyte# 0.61 X10^3/uL; Monocyte% 8.9 % (0-10); NRBC Flagged by Analyzer 0 % (0-5); Neutrophil # 4.88 X10^3/uL (2.7-7.7); Neutrophil % 71.1 % (47-70); Platelet Count 252 K/mm3 (150-450); RBC Distribution Width SD 41.6 fl (35.1-43.9); Red Blood Count 4.95 M/mm3 (4.6-6.2); White Blood Count 6.9 K/mm3 (4.4-11.0)
[2018-09-11] MEDS: Mag Hydrox/Al Hydrox/Simeth 30 ML UDC PO (08:52)
[2018-09-11 09:00] LABS: AST(SGOT) 15 U/L (15-37); Alanine Aminotransfer ALT/SGPT 14 U/L (16-61); Albumin, Serum 3.6 g/dL (3.2-5.0); Alkaline Phosphatase 78 U/L (45-117); Bilirubin, Direct 0.19 mg/dL (0.00-0.30); Globulin 3.4 g/dL (2.2-4.2)
[2018-09-11 09:02] LABS: Anion Gap 9 (5-15); BUN 15 mg/dL (7-18); BUN/Creat Ratio 14.4 RATIO (10-20); Calcium,Total 9.8 mg/dL (8.5-10.1); Chloride 102 mmol/L (98-107); Creatinine, Serum 1.04 mg/dL (0.70-1.30); EST Glomerular Filtration Rate 75 mL/min (>60); Est Glom Filt Rate - Afr Amer 91 mL/min (>60); Estimated Creatinine Clearance 68.24 ml/min; Glucose 117 mg/dL (74-106); Lipase 158 U/L (73-393); Potassium 3.7 mmol/L (3.5-5.1); Sodium Level 136 mmol/L (136-145)
[2018-09-11 10:05] VITALS: BP 134/79; PULSE 78; RESP 19; O2SAT 95
[2018-09-11] MEDS: Ondansetron 4 MG/2 ML Vial IV (10:15)
[2018-09-11 10:22] VITALS: BP 136/84; PULSE 87; RESP 18; O2SAT 97
== END 2018-09-11 10:23 | disposition home or self-care (01) ==
PROVIDERS: Emergency Provider Emergency Medicine; Family Provider Family Medicine; PCP Family Medicine
DX: R07.9 Chest pain, unspecified (principal); K21.9 Gastro-esophageal reflux disease without esophagitis; J44.9 Chronic obstructive pulmonary disease, unspecified; I10 Essential (primary) hypertension; E78.00 Pure hypercholesterolemia, unspecified; E03.9 Hypothyroidism, unspecified; Z86.711 Personal history of pulmonary embolism; Z87.19 Personal history of other diseases of the digestive system; Z79.899 Other long term (current) drug therapy
CPT/HCPCS: 71045; 80048; 80076; 83690; 84484; 85025; 93005; 96374; 99285; A4216; J2405

== ENCOUNTER → 2018-10-06 | Outpatient (CLI) | payer MEDICARE, SELFPAY ==
[2018-09-11 08:16] VITALS: BMI 27.1
[2018-10-06 13:21] LABS: Cholesterol 174 mg/dL (200); High Density Lipoprotein 62 mg/dL; T4 Free Direct 1.03 ng/dL (0.76-1.46); Thyroid Stim Hormone (TSH) 3.71 uIU/mL (0.358-3.74); Triglycerides 70 mg/dL; Very Low Density Lipoprotein 14 mg/dL (5-40)
== END | disposition home or self-care (01) ==
LOC: BFHLAB 09:24
PROVIDERS: Family Provider Family Medicine; PCP Family Medicine; Visit Provider Family Medicine
DX: E03.9 Hypothyroidism, unspecified (principal); I10 Essential (primary) hypertension
CPT/HCPCS: 36415; 80061; 84439; 84443

== ENCOUNTER 2019-03-07 14:22 | Observation (INO) | payer MEDICARE, SELFPAY ==
[2019-03-07] VITALS (13 sets, daily range): BP systolic 101–159; BP diastolic 67–85; PULSE 65–90; RESP 12–19; TEMP 36.6–36.9; O2SAT 94–97; BMI 30.9; BMI 30.6; BMI 30.7
--- NOTE | 2019-03-07 14:37 | EKG12_ITS ---
Test Reason : CP Blood Pressure : / mmHG Vent. Rate : 082 BPM Atrial Rate : 082 BPM P-R Int : 144 ms QRS Dur : 078 ms QT Int : 430 ms P-R-T Axes : 040 061 037 degrees QTc Int : 502 ms Normal sinus rhythm Nonspecific T wave abnormality Abnormal ECG Confirmed by DONNIE MISTRY, VENKATESH ([id number]), technical writer and editor KANDY MONSIVAIS ([id number]) on 03/09/2019 1:12:21 PM Referred By: JARET Confirmed By:LV FIELDS MD
--- NOTE | 2019-03-07 14:39 | ED.DCSUM_ITS ---
- ER Visit Summary Date of Service: 03/07/19 Chief Complaint: Chest pain History of Present Illness: The patient is a 68 M who presents with chest pain that has been intermittent for the past 3 weeks it has been constant for the past 2 days. Patient states the pain is sharp and over the substernal area. P atient states nothing makes it better or worse. Patient does admit to a cough and some shortness of breath. Patient also admits to some acid reflux symptoms. Patient denies any nausea or vomiting. Patient denies any diaphoresis. Patient denies any lightheadedness or weakness. Patient's cardiac risk factors include hypertension and a family history of mother who had coronary artery disease at a young age. Physical Examination: Vital signs are stable. Patient is afebrile. Patient is in no acute distress. Oral mucosa is pink and moist. Neck is supple. Trachea is midline. There is no JVD noted. Heart was regular rate and rhythm. Lungs are clear and equal bilaterally. Abdomen is soft. Bowel sounds are normal. There is no tenderness. There is no rebound or guarding noted. Skin is warm dry. Cranial nerves II through XII are intact. There are no focal motor or sensory deficits noted. Extremities are intact. There is no calf tenderness or edema. Test Results: EKG showed normal sinus rhythm with a rate of 82. There are nonspecific ST-T wave changes. This was unchanged compared to previous EKG dated 09/11/2018. CBC and basic metabolic profile were within normal limits. Troponin was normal. Portable chest x-ray was obtained and was normal. This was interpreted by the radiologist and myself. Emergency Department Course and Treatment: Patient was given aspirin initially. Patient initially stated his chest pain had resolved however on reevaluation he stated his pain was starting to come back. Patient was given sublingual nitroglycerin. On review of his chart it has been 3 years since his last stress test. Patient has a HEART score of 5 and a LUIZ risk score of 1. I recommended admission to the hospital for the patient. He is agreeable with this. Case was discussed with the hospitalist. He will admit the patient to the PCU for observation. Patient and family understand and are agreeable with the plan. All questions were answered. Disposition: Admit for observation Impression: Chest pain This note was generated with [employer] software. It may contain incorrect words, spelling, and punctuation that were not noted in review of the chart prior to signing ED Disposition - Plan for ED Patient: Disposition: Acute Care Hospital [facility] Diagnosis: Chest pain Referrals: Alfred Bailey DO [Primary Care Provider] -
--- NOTE | 2019-03-07 14:40 | RAD_ITS ---
STUDY: X-RAY CHEST REASON FOR EXAM: Male, 68 years old. CHEST PAIN X3 WEEKS TECHNIQUE: Single AP portable view of the chest. COMPARISON: Comparison is made with prior examination September 11, 2018. FINDINGS: EKG electrodes are seen. Hyperinflation. The lungs are clear. There is no demonstrated pleural abnormality. Normal size heart. Normal mediastinum and enzo. Normal visualized pulmonary arteries. There is atherosclerotic tortuosity of the aortic arch and descending thoracic aorta. There are diffuse degenerative changes of the visualized thoracic spine. Normal visualized ribs, clavicles, and shoulders. There is no demonstrated abnormality of the visualized soft tissue structures of the upper abdomen. RAD/Chest 1 View (Portable) IMPRESSION: Hyperinflation. The lungs are clear. Electronically Signed: Rashid Doherty, at 14:55 EST , Service support ,
--- NOTE | 2019-03-07 14:43 | ED.RN ---
pt denies pain at this time, nitro not given.
[2019-03-07] MEDS: Aspirin 81 MG TAB.CHEW 324 MG PO (15:08)
[2019-03-07 15:09] LABS: Absolute Lymphocyte Count 2.45 X10^3/uL (0.83-4.51); Absolute Neutrophil Count 2.9 X10^3/uL (2.0-7.7); Anion Gap 5 (5-15); BUN 13 mg/dL (7-18); BUN/Creat Ratio 12.9 RATIO (10-20); Basophil# 0.06 X10^3/uL; Calcium,Total 9.1 mg/dL (8.5-10.1); Chloride 106 mmol/L (98-107); Creatinine, Serum 1.01 mg/dL (0.70-1.30); EST Glomerular Filtration Rate 77 mL/min (>60); Eosinophil# 0.11 X10^3/uL; Eosinophils% 1.8 % (0-5); Est Glom Filt Rate - Afr Amer 94 mL/min (>60); Estimated Creatinine Clearance 70.27 ml/min; Glucose 99 mg/dL (74-106); Hematocrit 51.6 % (40-54); Hemoglobin 17.1 g/dL (13.0-16.5); Lymphocyte # 2.45 X10^3/ul (4.0); Lymphocyte % 40.4 % (19-41); Mean Corp Hgb Conc 33.1 g/dL (32-36); Mean Corpuscular Hgb 29.8 pg (27.0-32.0); Mean Corpuscular Volume 90.1 fL (80-94); Mean Platelet Vol. 10.5 fl (6.2-12.0); Monocyte# 0.56 X10^3/uL; Monocyte% 9.2 % (0-10); NRBC Flagged by Analyzer 0 % (0-5); Neutrophil # 2.87 X10^3/uL (2.7-7.7); Neutrophil % 47.3 % (47-70); Platelet Count 248 K/mm3 (150-450); Potassium 4.2 mmol/L (3.5-5.1); RBC Distribution Width SD 42.5 fl (35.1-43.9); Red Blood Count 5.73 M/mm3 (4.6-6.2); Sodium Level 139 mmol/L (136-145); White Blood Count 6.1 K/mm3 (4.4-11.0)
[2019-03-07] MEDS: Nitroglycerin SL (ED/IMG/CATH) 0.4 MG TABLET SUBLINGUAL ×2 (16:18→16:24)
--- NOTE | 2019-03-07 16:19 | PCM.HP.STD ---
Problem List (1) Chest pain Status: Acute (2) Duodenal ulcer Status: Chronic (3) GI bleed Status: Chronic (4) Gastroenteritis Status: Chronic (5) Thoracic neuritis Status: Chronic (6) Segmental and somatic dysfunction of cervical region Status: Chronic (7) Segmental and somatic dysfunction of thoracic region Status: Chronic (8) Segmental and somatic dysfunction of lumbar region Status: Chronic (9) Serotonergic syndrome Status: Chronic (10) Bilateral pulmonary embolism Status: Chronic (11) Hypertension Status: Chronic (12) COPD (chronic obstructive pulmonary disease) Status: Chronic Qualifiers: (13) Hypothyroidism Status: Chronic Qualifiers: (14) Irritable bowel syndrome Status: Chronic Qualifiers: (15) GERD (gastroesophageal reflux disease) Status: Chronic Qualifiers: History of Present Illness Date of Admission: 03/07/19 Chief Complaint: chest pain The patient is a 68 year old M with multiple comorbidities including GERD and hypertension came to ED with chest pain for about 3 weeks. Initially it was intermittent for about 2 weeks and then getting more frequent and worse. Today it started about 10:30 AM and still going in ED for about 3 hours although has much improved after nitroglycerin and aspirin given in ED. He characterized chest pain as midsternal with radiation to back interscapular area along with numbness in bilateral hand, initially 10/10 intensity but now 3 to 4 x 10 intensity associated with shortness of breath but not near syncope or syncope. Patient got mild headache after nitroglycerin. EKG normal sinus rhythm with nonspecific ST-T changes 82 bpm. QTc 502 ms. No significant change from previous EKG of September 2018. QTC was 486 ms chest pain for last couple of weeks but constatn sinc eyesterday. relieved with nitro. First troponin is negative. Past Medical History Past Medical History (Chronic Problems): Chronic Problems (Last Reviewed 03/16/18 @ 15:21 by Bogdan Mcgraw DO) Duodenal ulcer (Chronic) GI bleed (Chronic) Gastroenteritis (Chronic) Thoracic neuritis (Chronic) Segmental and somatic dysfunction of cervical region (Chronic) Segmental and somatic dysfunction of thoracic region (Chronic) Segmental and somatic dysfunction of lumbar region (Chronic) Serotonergic syndrome (Chronic) Bilateral pulmonary embolism (Chronic) Hypertension (Chronic) COPD (chronic obstructive pulmonary disease) (Chronic) Hypothyroidism (Chronic) Irritable bowel syndrome (Chronic) GERD (gastroesophageal reflux disease) (Chronic) Medical History: Medical History (Last Reviewed 03/16/18 @ 15:21 by Bogdan Mcgraw DO) Hyperthyroidism E05.90 Allergies albuterol Allergy (Verified 09/11/18 08:21) Itching amoxicillin Allergy (Verified 09/11/18 08:21) doesnt rememeber happened as a child fluoxetine [From Prozac] Adverse Reaction (Verified 09/11/18 08:21) Other serotonin syndrome Home Medications: Ambulatory Orders Medication Instructions Recorded Fluvoxamine Maleate [Luvox] 150 mg PO QHS 03/16/18 Lisinopril [Zestril] 20 mg PO BID 03/16/18 Lorazepam [Ativan] 0.5 mg PO TID PRN 03/16/18 Simvastatin 20 mg PO DAILY 03/16/18 Dextran 70/Hypromellose [Natural 1 drp EACH EYE DAILY PRN PRN 03/07/19 Balance Tears Eye Drop] Polyethylene Glycol 3350 [Miralax] 17 gm PO DAILY PRN PRN 03/07/19 Surgical History: - - surgery on right knee Psychiatric History: No pertinent psych hx Smoking Status: Former smoker - *Family History Maternal History Items: Heart Disease Paternal History Items: Cancer - Father of colorectal CA Review of Systems Constitutional: Denies: Chills, Fever, Weight Change HEENT: Denies: Head Aches, Sinus Congestion, Sinus Drainage Cardiovascular: Reports: Chest Pain, Chest Pressure. Denies: Palpitations Respiratory: Reports: Shortness of breath at rest, Shortness of breath upon exertion. Denies: Cough, Sputum production Gastrointestinal: Denies: Abdominal Pain, Nausea, Vomiting Genitourinary: Denies: Dysuria Musculoskeletal: Reports: Joint Pain, Neck Pain - Chronic neck pain. Denies: Joint Tenderness Skin: Denies: Rash, Wounds Neurological: Denies: Numbness, Tingling, Focal weakness Psychiatric: Denies: Anxiety, Depression, Homicidal Ideations, Suicidal Ideations Hematologic/ Lymphatic: Denies: Easy Bruising, Easy Bleeding VTE Information - Inpt Only VTE Present on Admission: No VTE Mechan Device Prophylaxis: None VTE Pharm Prophylaxis ordered?: Yes Patient Problems: Active and Suspected Problems (Last Reviewed 03/16/18 @ 15:21 by Bogdan Mcgraw DO) Chest pain (Acute) - Physical Exam Vitals/I&O's: Vital Signs Temp Pulse Resp BP Pulse Ox 98.2 F 71 15 142/85 H 96 03/07/19 14:24 03/07/19 16:18 03/07/19 16:12 03/07/19 16:18 03/07/19 16:12 Oxygen Delivery Method Room Air Weight: 215 lb 4.855 oz Body Mass Index (BMI) 30.9 General: Alert, Oriented x3, Cooperative HEENT: Atraumatic, PERRLA, EOMI, Normocephalic Oral: No Gingival or Mucosal Lesions/ Ulcerations, Dry Mucosa Neck: Supple, No JVD, Negative Carotid Bruits Lungs: No rhonchi, No wheeze, No rales, Diminished - Air entry diminished in all lung leiva. Cardiovascular: Regular rate, Regular Rhythm, Normal S1, Normal S2, No murmurs Abdomen: Bowel Sounds Present, Soft, Non Tender, Non-Distended Extremities: No edema, Capillary Refill Less than 3 Seconds Skin: No rashes, No breakdown Musculoskeletal: No Tenderness to Palpation of Joints or Extremities, Arthritic Changes Lymphatic: No Cervical, Supraclavicular, or Inguinal Adenopathy Neurological: Cranial nerves II-XII grossly intact, Deep Tendon Reflexes 2+/4 and Symmetrical, Neuro grossly intact Psych/Mental Status: Normal Affect, Appropriate Laboratory Results 03/07/19 14:25: WBC 6.1, RBC 5.73, Hgb 17.1 H, Hct 51.6, MCV 90.1, MCH 29.8, MCHC 33.1, RDW Std Deviation 42.5, RDW Coeff of [place] 13.0, Plt Count 248, MPV 10.5, Immature Gran % (Auto) 0.300, Neut % (Auto) 47.3, Lymph % (Auto) 40.4, [place] % (Auto) 9.2, Eos % (Auto) 1.8, Baso % (Auto) 1.0, Absolute Neuts (auto) 2.9, Absolute Lymphs (auto) 2.45, Nucleated RBC % 0 03/07/19 14:25: Sodium 139, Potassium 4.2, Chloride 106, Carbon Dioxide 28.0, Anion Gap 5, BUN 13, Creatinine 1.01, Estim Creat Clear Calc 70.27, Est GFR (MDRD) Af Amer 94, Est GFR (MDRD) Non-Af 77, BUN/Creatinine Ratio 12.9, Glucose 99, Calcium 9.1, Troponin I < 0.015 Current Medications Nitroglycerin (Nitrostat) 0.4 mg SUBLINGUAL Q5M PRN PRN Reason: Chest pain Last Admin: 03/07/19 16:18 Dose: 0.4 mg Documented by: Assessment/Plan All Active Problems (Last Reviewed 03/16/18 @ 15:21 by Bogdan Mcgraw DO) Chest pain (Acute) TOMI (acute kidney injury) (Resolved) The patient is a 68 year old M with multiple comorbidities including GERD and hypertension came to ED with chest pain for about 3 weeks. EKG normal sinus rhythm with nonspecific ST-T changes 82 bpm. QTc 502 ms. No significant change from previous EKG of September 2018. QTC was 486 ms First troponin is negative. 1. Atypical chest pain with concern for unstable angina or GERD: Patient is being admitted in PCU. Serial troponin enzymes and EKG. If troponins are negative, nuclear myocardial perfusion stress test tomorrow morning. If troponins are EKG positive, will consult cardiology for cardiac cath. Patient had normal stress test in February 2016. Patient also said he had cardiac cath done about 6 to 7 years ago on found mild coronary artery disease. No official report of cardiac cath in our record. Echo in March 2016 reported as normal LV size, systolic function with EF 65%. 2. GI issues, duodenal ulcer, history of GI bleed and GERD: Protonix 40 mg IV daily. Patient was last admitted in March 2018 for GI bleed secondary to duodenal ulcer. EGD at that time found clean base duodenal ulcer. 3. COPD: Not in exacerbation. 4. Bilateral pulmonary embolism 5. 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 6. Hypertension: Blood pressure is well controlled. 142/85 currently 107/80. Patient on lisinopril 20 mg twice daily. Dose decreased to 10 mg daily from tomorrow a.m. if blood pressure stays above 120/80. 7. Other comorbidities include hypothyroidism, irritable bowel syndrome: TSH tomorrow morning DVT prophylaxis: Lovenox 40 mg subcu daily. Discontinue if platelet count drops less than 50,000 or hemoglobin less than 8 g% laboratory Results 03/07/19 14:25: WBC 6.1, RBC 5.73, Hgb 17.1 H, Hct 51.6, MCV 90.1, MCH 29.8, MCHC 33.1, RDW Std Deviation 42.5, RDW Coeff of [place] 13.0, Plt Count 248, MPV 10.5, Immature Gran % (Auto) 0.300, Neut % (Auto) 47.3, Lymph % (Auto) 40.4, [place] % (Auto) 9.2, Eos % (Auto) 1.8, Baso % (Auto) 1.0, Absolute Neuts (auto) 2.9, Absolute Lymphs (auto) 2.45, Nucleated RBC % 0 03/07/19 14:25: Sodium 139, Potassium 4.2, Chloride 106, Carbon Dioxide 28.0, Anion Gap 5, BUN 13, Creatinine 1.01, Estim Creat Clear Calc 70.27, Est GFR (MDRD) Af Amer 94, Est GFR (MDRD) Non-Af 77, BUN/Creatinine Ratio 12.9, Glucose 99, Calcium 9.1, Troponin I < 0.015 Clinical Impression(s) from Imaging Studies Chest X-Ray 03/07/19 14:40 IMPRESSION: Hyperinflation. The lungs are clear. Code Visit OBSV E&M: 47888 Initial observation care L3
--- NOTE | 2019-03-07 16:30 | NURSING ---
spoke with md regarding BP after 2nd dose of Nitro, per MD do not give 3 dose of nitro.
[2019-03-07] MEDS: Acetaminophen 500 MG Tablet 1000 MG PO (16:31)
--- NOTE | 2019-03-07 17:13 | EKG12_ITS ---
Test Reason : Blood Pressure : / mmHG Vent. Rate : 070 BPM Atrial Rate : 070 BPM P-R Int : 146 ms QRS Dur : 076 ms QT Int : 400 ms P-R-T Axes : 046 063 081 degrees QTc Int : 432 ms Normal sinus rhythm Nonspecific T wave abnormality Abnormal ECG When compared with ECG of 07-MAR-2019 14:48, MANUAL COMPARISON REQUIRED, DATA IS UNCONFIRMED Confirmed by JACOB MISTRY, JUAREZ ([id number]), production editor BG GUERRA ([id number]) on 03/13/2019 8:56:56 AM Referred By: GAGANDEEP Confirmed By:JUAREZ JAMES MD
[2019-03-07] MEDS: 0.9% Normal Saline 1,000 ML 100 ML IV (18:04)
[2019-03-07] MEDS: 0.9% Saline Lock 10 ML Syringe IV (18:06)
[2019-03-07] MEDS: Enoxaparin 40 MG/0.4 ML Syringe SC (18:13)
[2019-03-07] MEDS: LORazepam 0.5 MG Tablet PO ×2 (18:13→21:00)
[2019-03-07 19:26] LABS: Magnesium 2.2 mg/dL (1.6-2.6)
[2019-03-07] MEDS: Atorvastatin Calcium 10 MG Tablet PO (20:59)
[2019-03-07] MEDS: fluvoxaMINE Maleate 50 MG Tablet 150 MG PO (20:59)
[2019-03-08] VITALS (7 sets, daily range): BP systolic 126–139; BP diastolic 71–79; PULSE 60–71; RESP 16–18; TEMP 36.2–36.8; O2SAT 92–98
[2019-03-08 05:44] LABS: Absolute Lymphocyte Count 2.28 X10^3/uL (0.83-4.51); Absolute Neutrophil Count 2.3 X10^3/uL (2.0-7.7); Basophil# 0.06 X10^3/uL; Basophil% 1.1 % (0-1); Eosinophil# 0.16 X10^3/uL; Hematocrit 44.5 % (40-54); Hemoglobin 14.9 g/dL (13.0-16.5); Lymphocyte # 2.28 X10^3/ul (4.0); Lymphocyte % 42.1 % (19-41); Mean Corp Hgb Conc 33.5 g/dL (32-36); Mean Corpuscular Hgb 30.2 pg (27.0-32.0); Mean Corpuscular Volume 90.1 fL (80-94); Mean Platelet Vol. 10.1 fl (6.2-12.0); Monocyte# 0.66 X10^3/uL; Monocyte% 12.2 % (0-10); NRBC Flagged by Analyzer 0 % (0-5); Neutrophil # 2.25 X10^3/uL (2.7-7.7); Neutrophil % 41.4 % (47-70); Platelet Count 203 K/mm3 (150-450); RBC Distribution Width SD 42.7 fl (35.1-43.9); Red Blood Count 4.94 M/mm3 (4.6-6.2); White Blood Count 5.4 K/mm3 (4.4-11.0)
--- NOTE | 2019-03-08 05:55 | EKG12_ITS ---
Test Reason : AM EKG Blood Pressure : / mmHG Vent. Rate : 068 BPM Atrial Rate : 068 BPM P-R Int : 158 ms QRS Dur : 082 ms QT Int : 436 ms P-R-T Axes : 048 053 059 degrees QTc Int : 463 ms Normal sinus rhythm Nonspecific T wave abnormality Abnormal ECG When compared with ECG of 07-MAR-2019 17:07, MANUAL COMPARISON REQUIRED, DATA IS UNCONFIRMED Confirmed by JACOB MISTRY, JUAREZ ([id number]), newspaper editor managing BG GUERRA ([id number]) on 03/13/2019 8:41:15 AM Referred By: DR LU Confirmed By:JUAREZ JAMES MD
[2019-03-08 06:06] LABS: Anion Gap 3 (5-15); BUN 16 mg/dL (7-18); BUN/Creat Ratio 17.6 RATIO (10-20); Calcium,Total 8.8 mg/dL (8.5-10.1); Chloride 107 mmol/L (98-107); Cholesterol 164 mg/dL (200); Creatinine, Serum 0.91 mg/dL (0.70-1.30); EST Glomerular Filtration Rate 87 mL/min (>60); Est Glom Filt Rate - Afr Amer 106 mL/min (>60); Estimated Creatinine Clearance 77.99 ml/min; Glucose 78 mg/dL (74-106); High Density Lipoprotein 50 mg/dL; Potassium 4.3 mmol/L (3.5-5.1); Sodium Level 138 mmol/L (136-145); Triglycerides 95 mg/dL; Very Low Density Lipoprotein 19 mg/dL (5-40)
[2019-03-08] MEDS: Lisinopril 10 MG Tablet PO (06:06)
[2019-03-08] MEDS: 0.9% Saline Lock 10 ML Syringe IV ×4 (06:06→11:04)
[2019-03-08] MEDS: Aspirin E.C. 81 MG Tablet PO (06:06)
[2019-03-08] MEDS: Morphine 2 MG/ML Syringe IV (07:44)
[2019-03-08] MEDS: Polyethylene Glycol 3350 17 GM PACKET PO (10:40)
[2019-03-08] MEDS: oxyCODONE 5 MG Tablet PO (13:25)
[2019-03-08] MEDS: LORazepam 0.5 MG Tablet PO (13:26)
[2019-03-08] MEDS: Mag Hydrox/Al Hydrox/Simeth 30 ML UDC PO (13:32)
--- NOTE | 2019-03-08 14:01 | STRESSREP ---
Stress Test Report Date normal sinus rhythm: 03/08/2019 Procedure: Pharmacologic stress nuclear imaging study Indications: Chest pain Consent: Per the patient Procedure: The patient underwent pharmacologic (Regadenoson) evaluation with a peak heart rate of 94 beats per minute (62 %predicted maximal heart rate) and a peak blood pressure of 122/80 mmHg. The baseline ECG demonstrated normal sinus rhythm. EKG during lexiscan infusion revealed [no significant ischemic changes]. EKG post infusion revealed [no significant ischemic changes.] [There were no cardiac dysrhythmias pretest, during pharmacologic infusion, or recovery]. [There was no complaint of chest discomfort during pharmacologic infusion or recovery]. The examination was discontinued secondary to completion of protocol. Impression: 1. Lexiscan stress test test is negative] for Lexiscan infusion induced EKG changes of ischemia. 2. Lexiscan stress test test[ is negative] for Lexiscan infusion induced chest pain. 3. Results of the nuclear portion of the test is as below Myocardial perfusion imaging study: Technique: The patient was injected with [11.7] millicuries of technetium 99m Cardiolite and subsequently rest SPECT Cardiolite nuclear imaging was obtained in the horizontal long, vertical long, and short axis views. The patient underwent pharmacologic (Regadenoson) evaluation. Please see above for details. The patient was injected with [35] millicuries of technetium 99m Cardiolite and subsequently stress SPECT Cardiolite nuclear imaging was obtained in the horizontal long, vertical long, and short axis views. A gated Cardiolite study at peak stress was obtained. Interpretation: Rest and stress SPECT Cardiolite nuclear imaging status post realignment, normalization, and attenuation correction demonstrate [normal myocardial radioisotope uptake.]. Gated images reveal no significant regional wall motion abnormalities]. The reported LVEF is 66 %. Impression: 1. There is no evidence of significant ischemia or infarction. 2. Estimated ejection fraction is 66%. This note was generated with [employer] software. It may contain incorrect words, spelling, and punctuation that were not noted in checking the note before signing.
--- NOTE | 2019-03-08 14:39 | DCINST_ITS ---
- Discharge Diagnoses Current Active Problems: Current Active and Chronic Problems (Last Reviewed 03/16/18 @ 15:21 by Bogdan Mcgraw DO) Chest pain (Acute) You will use the following diet at home:: No restrictions Discharge Activity: Return to Normal Activity Call your doctor if you observe: Shortness of breath, Dizziness, Fainting spells, Chest pain Allergies/Adverse Reactions: Allergies albuterol Allergy (Verified 09/11/18 08:21) Itching amoxicillin Allergy (Verified 09/11/18 08:21) doesnt remtrenaber happened as a child fluoxetine [From Prozac] Adverse Reaction (Verified 09/11/18 08:21) Other serotonin syndrome Medications to take at Discharge Fluvoxamine Maleate [Luvox] 150 mg PO QHS 03/16/18 Lisinopril [Zestril] 20 mg PO BID 03/16/18 Lorazepam [Ativan] 0.5 mg PO TID PRN 03/16/18 Simvastatin 20 mg PO DAILY 03/16/18 Dextran 70/Hypromellose [Natural Balance Tears Eye Drop] 1 drp EACH EYE DAILY PRN PRN 03/07/19 Polyethylene Glycol 3350 [Miralax] 17 gm PO DAILY PRN PRN 03/07/19 Pantoprazole Sodium [Protonix] 40 mg PO BID #60 tab 03/08/19 The following prescriptions were given: Pantoprazole Sodium [Protonix] 40 mg PO BID #60 tab Transmission Status: Pending to [facility] Primary Care Physician: Alfred Bailey DO [Primary Care Provider] - Please follow up with your Primary Care Physician in: 1 Week Test Results: Test results from this visit will be discussed in further detail at your follow- up appointment, if applicable. Please Follow Up With: Cole Parnell MD When: As scheduled Proposed Discharge Date: 03/08/19
--- NOTE | 2019-03-08 14:41 | DS.PCM_ITS ---
<Jenae Floyd - Last Filed: 03/08/19 16:56> Discharge Date and Diagnosis Date of Admission: 03/07/19 Date of Discharge: 03/08/19 - Primary Discharge Diagnosis Active and Suspected Problems (Last Reviewed 03/16/18 @ 15:21 by Bogdan Mcgraw DO) 1. Chest pain, ACS ruled out 2. GERD, history of duodenal ulcer with GI bleed 3. Chronic COPD 4. History of pulmonary embolism 5. Peripheral neuropathy 6. Hypertension 7. Hypothyroidism - Secondary Discharge Diagnosis Chronic Problems (Last Reviewed 03/16/18 @ 15:21 by Bogdan Mcgraw DO) Duodenal ulcer (Chronic) GI bleed (Chronic) Gastroenteritis (Chronic) Thoracic neuritis (Chronic) Segmental and somatic dysfunction of cervical region (Chronic) Segmental and somatic dysfunction of thoracic region (Chronic) Segmental and somatic dysfunction of lumbar region (Chronic) Serotonergic syndrome (Chronic) Bilateral pulmonary embolism (Chronic) Hypertension (Chronic) COPD (chronic obstructive pulmonary disease) (Chronic) Hypothyroidism (Chronic) Irritable bowel syndrome (Chronic) GERD (gastroesophageal reflux disease) (Chronic) Hospital Course and Treatment Imaging Results: Diagnostic Data Chest X-Ray 03/07/19 14:40 IMPRESSION: Hyperinflation. The lungs are clear. Electronically Signed: Rashid Bessy, at 14:55 EST , Service support , Operations: None Procedures: Stress test Summary of Care Provided: The patient is a 68 year old M admitted 03/07/2019 due to chest pain. 1. Chest pain, ACS ruled out-troponin negative. EKG without ST-T changes. Patient underwent nuclear stress test which was negative for ischemia. EF 66%. Given history of PE and report of continued chest pain with associated mild shortness of breath will obtain CTA of chest to rule out PE prior to discharge. 2. GERD, history of duodenal ulcer with GI bleed-patient reports chest discomfort mildly improved with GI cocktail. He has upcoming colonoscopy with Dr. Parnell. Discharged on PPI twice daily for 2 weeks then continue PPI daily only. Follow-up with GI as scheduled. 3. Chronic COPD-no acute exacerbation. As needed albuterol aerosol. 4. History of pulmonary embolism-previously completed treatment with Xarelto. CTA pending as noted above. 5. Peripheral neuropathy 6. Hypertension-stable, continue lisinopril regimen. 7. Hypothyroidism-not on regimen, TSH normal. 8. Hyperlipidemia-continue statin. Patient seen and examined prior to discharge. Physical assessment as noted below. Patient is stable for discharge with follow up recommendations as noted above. This patient was seen by ELIANA Kim under the supervision of Dr. Corey. - Physical Exam Vitals/I&O's: Vital Signs Temp Pulse Resp BP Pulse Ox 97.2 F L 60 18 134/77 H 98 03/08/19 13:15 03/08/19 13:15 03/08/19 13:15 03/08/19 13:15 03/08/19 13:15 Oxygen Flow Rate (L/min) 1 Oxygen Delivery Method Room Air Weight: 213 lb 10.047 oz Body Mass Index (BMI) 30.6 Intake and Output for Last 24 Hours 03/06/19 03/07/19 03/08/19 23:59 23:59 23:59 Intake Total 298.33 / 298.33 1161.67 / 1161.67 Balance 298.33 / 298.33 1161.67 / 1161.67 General: Alert, Oriented x3, Cooperative HEENT: Atraumatic, PERRLA, EOMI, Normocephalic Neck: Supple, No JVD, Negative Carotid Bruits Lungs: Clear to auscultation, Diminished Cardiovascular: Regular rate, Regular Rhythm, Normal S1, Normal S2, No murmurs Abdomen: Bowel Sounds Present, Soft, Non Tender, Non-Distended Extremities: No clubbing, No cyanosis, No edema, Capillary Refill Less than 3 Seconds Skin: No rashes, No breakdown Musculoskeletal: No Tenderness to Palpation of Joints or Extremities Neurological: Cranial nerves II-XII grossly intact, Neuro grossly intact Psych/Mental Status: Normal Affect, Appropriate Laboratory Results 03/07/19 14:25: WBC 6.1, RBC 5.73, Hgb 17.1 H, Hct 51.6, MCV 90.1, MCH 29.8, MCHC 33.1, RDW Std Deviation 42.5, RDW Coeff of Troy 13.0, Plt Count 248, MPV 10.5, Immature Gran % (Auto) 0.300, Neut % (Auto) 47.3, Lymph % (Auto) 40.4, Hartley % (Auto) 9.2, Eos % (Auto) 1.8, Baso % (Auto) 1.0, Absolute Neuts (auto) 2.9, Absolute Lymphs (auto) 2.45, Nucleated RBC % 0 03/07/19 14:25: Sodium 139, Potassium 4.2, Chloride 106, Carbon Dioxide 28.0, Anion Gap 5, BUN 13, Creatinine 1.01, Estim Creat Clear Calc 70.27, Est GFR (MDRD) Af Amer 94, Est GFR (MDRD) Non-Af 77, BUN/Creatinine Ratio 12.9, Glucose 99, Calcium 9.1, Troponin I < 0.015 03/07/19 14:25: Magnesium 2.2 03/07/19 17:53: Troponin I < 0.015 03/07/19 20:55: Troponin I < 0.015 03/08/19 05:05: WBC 5.4, RBC 4.94, Hgb 14.9, Hct 44.5, MCV 90.1, MCH 30.2, MCHC 33.5, RDW Std Deviation 42.7, RDW Coeff of Troy 13.0, Plt Count 203, MPV 10.1, Immature Gran % (Auto) 0.200, Neut % (Auto) 41.4 L, Lymph % (Auto) 42.1 H, Hartley % (Auto) 12.2 H, Eos % (Auto) 3.0, Baso % (Auto) 1.1 H, Absolute Neuts (auto) 2.3, Absolute Lymphs (auto) 2.28, Nucleated RBC % 0 03/08/19 05:05: Sodium 138, Potassium 4.3, Chloride 107, Carbon Dioxide 28.0, Anion Gap 3 L, BUN 16, Creatinine 0.91, Estim Creat Clear Calc 77.99, Est GFR (MDRD) Af Amer 106, Est GFR (MDRD) Non-Af 87, BUN/Creatinine Ratio 17.6, Glucose 78, Calcium 8.8, Triglycerides 95, Cholesterol 164, LDL Cholesterol 95, VLDL Cholesterol 19, HDL Cholesterol 50, TSH 2.70 Current Medications Acetaminophen (Tylenol) 650 mg PO Q6H PRN PRN PRN Reason: Pain Score 1-3/Temp > 100.7 F Aspirin (Ecotrin) 81 mg PO DAILY@0800 [facility] Last Admin: 03/08/19 06:06 Dose: 81 mg Documented by: Atorvastatin Calcium (Lipitor) 10 mg PO QHS [facility] Last Admin: 03/07/19 20:59 Dose: 10 mg Documented by: Enoxaparin Sodium (Lovenox) 40 mg SC DAILY [facility] Last Admin: 03/08/19 14:36 Dose: Not Given Documented by: Fluvoxamine Maleate (Luvox) 150 mg PO QHS [facility] Last Admin: 03/07/19 20:59 Dose: 150 mg Documented by: Glucagon () 1 mg IM .X1 PRN PRN Reason: Hypoglycemia Pantoprazole Sodium 40 mg/ (Sodium Chloride) 110 mls @ 330 mls/hr IV Q24 [facility] Last Infusion: 03/08/19 11:05 Dose: Infused Documented by: Dextrose (Dextrose 10%-Water) 250 mls @ 999 mls/hr IV .Q16M PRN; Protocol PRN Reason: HYPOGLYCEMIA Lisinopril (Zestril) 10 mg PO DAILY [facility] Last Admin: 03/08/19 06:06 Dose: 10 mg Documented by: Lorazepam (Ativan) 0.5 mg PO TID PRN PRN Reason: ANXIETY Last Admin: 03/08/19 13:26 Dose: 0.5 mg Documented by: Morphine Sulfate () 2 mg IV Q3H PRN PRN PRN Reason: Pain Score 6-10/10 Last Admin: 03/08/19 07:44 Dose: 2 mg Documented by: Nitroglycerin (Nitrostat) 0.4 mg SUBLINGUAL Q5M PRN PRN Reason: Chest pain Last Admin: 03/07/19 16:24 Dose: 0.4 mg Documented by: Ondansetron HCl (Zofran) 4 mg IV Q8H PRN PRN PRN Reason: NAUSEA/VOMITING Oxycodone HCl (Oxyir) 5 mg PO Q4H PRN PRN PRN Reason: Pain Score 4-5/10 Last Admin: 03/08/19 13:25 Dose: 5 mg Documented by: Polyethylene Glycol (Miralax) 17 gm PO DAILY [facility] Last Admin: 03/08/19 10:40 Dose: 17 gm Documented by: Prochlorperazine Edisylate (Compazine Iv) 5 mg IV Q4H PRN PRN PRN Reason: Breakthrough Nausea/Vomiting Senna/Docusate Sodium (Senokot-S, Lexie-Colace) 2 tablet PO BID PRN PRN PRN Reason: Constipation Sodium Chloride () 10 - 40 ml IV UD PRN PRN Reason: SALINE FLUSH Last Admin: 03/08/19 11:04 Dose: 10 ml Documented by: Discharge Diet: No Restrictions Discharge Activity: Return to Normal Activity Call your doctor if you observe: Shortness of breath, Dizziness, Fainting spells, Chest pain Home Medications: Medications to take at Discharge Fluvoxamine Maleate [Luvox] 150 mg PO QHS 03/16/18 Lisinopril [Zestril] 20 mg PO BID 03/16/18 Lorazepam [Ativan] 0.5 mg PO TID PRN 03/16/18 Simvastatin 20 mg PO DAILY 03/16/18 Dextran 70/Hypromellose [Natural Balance Tears Eye Drop] 1 drp EACH EYE DAILY PRN PRN 03/07/19 Polyethylene Glycol 3350 [Miralax] 17 gm PO DAILY PRN PRN 03/07/19 Pantoprazole Sodium [Protonix] 40 mg PO BID #60 tab 03/08/19 Following Prescrptions Were Given to Patient: Pantoprazole Sodium [Protonix] 40 mg PO BID #60 tab Transmission Status: Received by [facility] Primary Care Physician: Alfred Bailey DO [Primary Care Provider] - Please follow up with your Primary Care Physician in: 1 Week Please Follow Up With: Cole Parnell MD When: As scheduled Disposition: Home Minutes spent on discharge:: 35 Patient Condition:: Stable Medical Necessity - Tobacco Use Smoking Status: Former smoker Tobacco Use: Cigarettes Meaningful Use Info Meaningful Use Diagnoses (Choose all that apply): None applicable <Jose Corey - Last Filed: 03/09/19 15:44> Discharge Date and Diagnosis - Secondary Discharge Diagnosis Chronic Problems (Last Reviewed 03/16/18 @ 15:21 by Bogdan Mcgraw DO) Duodenal ulcer (Chronic) GI bleed (Chronic) Gastroenteritis (Chronic) Thoracic neuritis (Chronic) Segmental and somatic dysfunction of cervical region (Chronic) Segmental and somatic dysfunction of thoracic region (Chronic) Segmental and somatic dysfunction of lumbar region (Chronic) Serotonergic syndrome (Chronic) Bilateral pulmonary embolism (Chronic) Hypertension (Chronic) COPD (chronic obstructive pulmonary disease) (Chronic) Hypothyroidism (Chronic) Irritable bowel syndrome (Chronic) GERD (gastroesophageal reflux disease) (Chronic) Hospital Course and Treatment Imaging Results: 03/08/19 14:44 CTA Chest W/WO Contrast [CT] Stat Summary of Care Provided: This patient was seen in conjunction with Jenae VARGAS. I have independently interviewed and examined the patient and reviewed pertinent history, examination findings, laboratory and plan of management. I have reviewed the note and agree with the documented findings with the few additional points. In brief, patient is admitted for chest pain for about 3 weeks which got worse last 2 to 3 days. Serial troponin enzymes and EKG were negative for acute ischemia. Patient underwent myocardial nuclear perfusion stress test and was negative for ischemia. EF 66%. Patient had CTPA done because of prior history of PE, chest pain and left-sided mild shortness of breath. CT images independently reviewed and is negative for PE or major vessel aneurysm or aortic dissection. CTPA chest is reported as negative for PE but findings consistent with COPD. No acute chest disease. Patient has history of COPD but no exacerbation Other comorbidities as mentioned above includes hypertension, hypothyroid, dyslipidemia and peripheral neuropathy. I have discussed my assessment with OCCUPATIONAL THERAPIST ASSISTANTSJenae and orders have been reviewed. [] Chest CTA 03/08/19 14:44 IMPRESSION: Normal CTA chest examination, without a demonstrated pulmonary embolism or arterial dissection. There are findings consistent with COPD. There is no evidence of acute chest disease. Electronically Signed: Charlie Rios MD at 16:53 EST , Service support , Subjective: Seen and examined. Patient did not have chest pain today. Serial troponin enzymes negative. EKG did not show any acute change of ischemia. - Physical Exam Vitals/I&O's: Vital Signs Temp Pulse Resp BP Pulse Ox 97.2 F L 71 18 134/77 H 98 03/08/19 13:15 03/08/19 15:00 03/08/19 13:15 03/08/19 13:15 03/08/19 13:15 Oxygen Flow Rate (L/min) 1 Oxygen Delivery Method Room Air Weight: 213 lb 10.047 oz Body Mass Index (BMI) 30.6 Intake and Output for Last 24 Hours 03/06/19 03/07/19 03/08/19 23:59 23:59 23:59 Intake Total 298.33 / 298.33 1161.67 / 1161.67 Balance 298.33 / 298.33 1161.67 / 1161.67 General: Alert, Oriented x3, Cooperative HEENT: Atraumatic, PERRLA, EOMI, Normocephalic Neck: Supple, No JVD, Negative Carotid Bruits Lungs: Clear to auscultation, No rhonchi, No wheeze, No rales, Diminished Cardiovascular: Regular rate, Regular Rhythm, Normal S1, Normal S2, No murmurs Abdomen: Bowel Sounds Present, Soft, Non Tender, Non-Distended Extremities: No edema, Capillary Refill Less than 3 Seconds Skin: No rashes, No breakdown Musculoskeletal: No Tenderness to Palpation of Joints or Extremities Lymphatic: No Cervical, Supraclavicular, or Inguinal Adenopathy Neurological: Cranial nerves II-XII grossly intact, Deep Tendon Reflexes 2+/4 and Symmetrical, Neuro grossly intact Psych/Mental Status: Normal Affect, Appropriate Laboratory Results 03/07/19 14:25: Magnesium 2.2 03/07/19 17:53: Troponin I < 0.015 03/07/19 20:55: Troponin I < 0.015 03/08/19 05:05: WBC 5.4, RBC 4.94, Hgb 14.9, Hct 44.5, MCV 90.1, MCH 30.2, MCHC 33.5, RDW Std Deviation 42.7, RDW Coeff of Troy 13.0, Plt Count 203, MPV 10.1, Immature Gran % (Auto) 0.200, Neut % (Auto) 41.4 L, Lymph % (Auto) 42.1 H, Hartley % (Auto) 12.2 H, Eos % (Auto) 3.0, Baso % (Auto) 1.1 H, Absolute Neuts (auto) 2.3, Absolute Lymphs (auto) 2.28, Nucleated RBC % 0 03/08/19 05:05: Sodium 138, Potassium 4.3, Chloride 107, Carbon Dioxide 28.0, Anion Gap 3 L, BUN 16, Creatinine 0.91, Estim Creat Clear Calc 77.99, Est GFR (MDRD) Af Amer 106, Est GFR (MDRD) Non-Af 87, BUN/Creatinine Ratio 17.6, Glucose 78, Calcium 8.8, Triglycerides 95, Cholesterol 164, LDL Cholesterol 95, VLDL Cholesterol 19, HDL Cholesterol 50, TSH 2.70 Current Medications Acetaminophen (Tylenol) 650 mg PO Q6H PRN PRN PRN Reason: Pain Score 1-3/Temp > 100.7 F Aspirin (Ecotrin) 81 mg PO DAILY@0800 [facility] Last Admin: 03/08/19 06:06 Dose: 81 mg Documented by: Atorvastatin Calcium (Lipitor) 10 mg PO QHS [facility] Last Admin: 03/07/19 20:59 Dose: 10 mg Documented by: Enoxaparin Sodium (Lovenox) 40 mg SC DAILY [facility] Last Admin: 03/08/19 14:36 Dose: Not Given Documented by: Fluvoxamine Maleate (Luvox) 150 mg PO QHS [facility] Last Admin: 03/07/19 20:59 Dose: 150 mg Documented by: Glucagon () 1 mg IM .X1 PRN PRN Reason: Hypoglycemia Pantoprazole Sodium 40 mg/ (Sodium Chloride) 110 mls @ 330 mls/hr IV Q24 [facility] Last Infusion: 03/08/19 11:05 Dose: Infused Documented by: Dextrose (Dextrose 10%-Water) 250 mls @ 999 mls/hr IV .Q16M PRN; Protocol PRN Reason: HYPOGLYCEMIA Lisinopril (Zestril) 10 mg PO DAILY [facility] Last Admin: 03/08/19 06:06 Dose: 10 mg Documented by: Lorazepam (Ativan) 0.5 mg PO TID PRN PRN Reason: ANXIETY Last Admin: 03/08/19 13:26 Dose: 0.5 mg Documented by: Morphine Sulfate () 2 mg IV Q3H PRN PRN PRN Reason: Pain Score 6-10/10 Last Admin: 03/08/19 07:44 Dose: 2 mg Documented by: Nitroglycerin (Nitrostat) 0.4 mg SUBLINGUAL Q5M PRN PRN Reason: Chest pain Last Admin: 03/07/19 16:24 Dose: 0.4 mg Documented by: Ondansetron HCl (Zofran) 4 mg IV Q8H PRN PRN PRN Reason: NAUSEA/VOMITING Oxycodone HCl (Oxyir) 5 mg PO Q4H PRN PRN PRN Reason: Pain Score 4-5/10 Last Admin: 03/08/19 13:25 Dose: 5 mg Documented by: Polyethylene Glycol (Miralax) 17 gm PO DAILY [facility] Last Admin: 03/08/19 10:40 Dose: 17 gm Documented by: Prochlorperazine Edisylate (Compazine Iv) 5 mg IV Q4H PRN PRN PRN Reason: Breakthrough Nausea/Vomiting Senna/Docusate Sodium (Senokot-S, Lexie-Colace) 2 tablet PO BID PRN PRN PRN Reason: Constipation Sodium Chloride () 10 - 40 ml IV UD PRN PRN Reason: SALINE FLUSH Last Admin: 03/08/19 11:04 Dose: 10 ml Documented by: Code Visit Inpatient E&M: [id number] Disch Hosp
--- NOTE | 2019-03-08 14:44 | CT_ITS ---
STUDY: CTA CHEST REASON FOR EXAM: Male, 68 years old. CHEST PAIN and history of PE. RADIATION DOSAGE (If Supplied By Facility): CTDIvol = ( 13.65 ) mGy, DLP = ( 553.47 ) mGycm TECHNIQUE: The examination was performed with the intravenous administration of 100CC ISOVUE 370. Post-processing of the angiographic images was performed, with multiplanar reformation and 3D reconstruction. Individualized dose optimization techniques were used for this CT. COMPARISON: 08/20/2016. FINDINGS: Normal enhancement of the main pulmonary artery and right and left pulmonary arteries. Normal enhancement of the bilateral peripheral pulmonary arteries. There is no demonstrated pulmonary embolism. Normal thoracic aorta and visualized great vessels. There is no demonstrated aortic dissection. Normal heart and pericardium. Normal mediastinum. Normal hilar regions. Normal visualized trachea and bronchi. The lungs are hyper expanded, with flattening of the hemidiaphragms. Normal pulmonary parenchyma. Normal pleura. Normal chest wall structures. There are degenerative changes of thoracic spine. No acute abnormality seen in the visualized upper abdomen. CT/CTA Chest W/WO Contrast IMPRESSION: Normal CTA chest examination, without a demonstrated pulmonary embolism or arterial dissection. There are findings consistent with COPD. There is no evidence of acute chest disease. Electronically Signed: Charlie Rios MD at 16:53 EST , Service support ,
--- NOTE | 2019-03-08 14:47 | CHAPLAIN ---
Type of Pastoral Visit _x__ Initial Visit ___ Follow-up Visit ___ On-call Visit ___ General Patient Visit ___ Spiritual Assessment ___ Family Conference ___ Bereavement ___ Rapid Response ___ Code Blue ___ Other (describe below) Pastoral Care Referral From _x__ Patient ___ Family ___ Nurse ___ Physician ___ High Value Associate ___ Agency Manager ___ Other (describe below) Sacrament/Intervention _x__ Active listening ___ Anointing ___ Confucianism ___ Bereavement ___ Communion _x__ Elidia exploration ___ ___ Life review _x__ Prayer ___ Reconciliation ___ Sacrament of Sick _x__ Supportive presence ___ Wedding ___ Other (describe below) Pastoral Comments patient reminds this latrine cleaner that he was seen by same latrine cleaner last March and was helped spiritually at that time; more follow up questions for clarification of needs spiritually at this time
--- NOTE | 2019-03-08 14:55 | PHA.DC.MC ---
Pharmacy Service has performed discharge medication reconciliation and counseling for this patient. The patient's discharge medication list was reviewed for discrepancies and discrepancies were resolved. Home Medications Fluvoxamine Maleate [Luvox] 150 mg PO QHS 03/16/18 Lisinopril [Zestril] 20 mg PO BID 03/16/18 Lorazepam [Ativan] 0.5 mg PO TID PRN 03/16/18 Simvastatin 20 mg PO DAILY 03/16/18 Dextran 70/Hypromellose [Natural Balance Tears Eye Drop] 1 drp EACH EYE DAILY PRN PRN 03/07/19 Polyethylene Glycol 3350 [Miralax] 17 gm PO DAILY PRN PRN 03/07/19 Pantoprazole Sodium [Protonix] 40 mg PO BID #60 tab 03/08/19 The patient was counseled on the following discharge medications and changes in medications for homegoing were reviewed. 1. PROTONIX The Reason for Use, instructions for use, and potential side effects were reviewed for all new medications. The patient's questions regarding all of their medications were answered. The patient was able to verbally demonstrate an understanding of their discharge medications.
== END 2019-03-08 14:40 | disposition home or self-care (01) ==
LOC: ED 16:19 → PCU 03-08 06:16
PROVIDERS: Admitting Provider Internal Medicine; Emergency Provider Emergency Medicine; PCP Family Medicine; Visit Provider Internal Medicine
DX: R07.89 Other chest pain (principal); K21.9 Gastro-esophageal reflux disease without esophagitis; Z23 Encounter for immunization; R94.31 Abnormal electrocardiogram [ECG] [EKG]; J44.9 Chronic obstructive pulmonary disease, unspecified; G62.9 Polyneuropathy, unspecified; I10 Essential (primary) hypertension; K58.9 Irritable bowel syndrome, unspecified; M99.01 Segmental and somatic dysfunction of cervical region; M99.03 Segmental and somatic dysfunction of lumbar region; M99.02 Segmental and somatic dysfunction of thoracic region; E78.5 Hyperlipidemia, unspecified; Z79.899 Other long term (current) drug therapy; Z87.11 Personal history of peptic ulcer disease; Z86.711 Personal history of pulmonary embolism; Z87.891 Personal history of nicotine dependence
CPT/HCPCS: 36415; 71045; 71275; 78452; 80048; 80061; 83735; 84443; 84484; 85025; 93005; 93017; 96361; 96365; 96366; 96372; 96375; 99218; 99251; 99285; A9500; G0008; J7030; Q9967; 90686; A4216; G0378; G0463; J2785

== ENCOUNTER → 2019-08-23 15:32 | Outpatient (CLI) | payer MEDICARE, SELFPAY ==
[2019-03-07 16:48] VITALS: BMI 30.6
== END ==
PROVIDERS: PCP Family Medicine; Referring Provider Otolaryngology Otolaryngology/Facial Plastic Surgery; Visit Provider Otolaryngology Otolaryngology/Facial Plastic Surgery
DX: J32.9 Chronic sinusitis, unspecified (principal)
CPT/HCPCS: 87070; 87205

== ENCOUNTER 2019-09-07 01:28 | Observation (INO) | payer MEDICARE, SELFPAY ==
[2019-03-07 16:48] VITALS: BMI 30.6
[2019-09-07] VITALS (11 sets, daily range): BP systolic 106–192; BP diastolic 68–97; PULSE 78–87; RESP 13–24; TEMP 35.9–36.7; O2SAT 93–97; BMI 37.9; BMI 37.5
--- NOTE | 2019-09-07 01:31 | ED.RN ---
RN CALLED FOR EKG, PULLED OLD EKGS FOR
--- NOTE | 2019-09-07 01:33 | EKG12_ITS ---
Test Reason : CP Blood Pressure : / mmHG Vent. Rate : 086 BPM Atrial Rate : 086 BPM P-R Int : 148 ms QRS Dur : 080 ms QT Int : 388 ms P-R-T Axes : 049 070 083 degrees QTc Int : 464 ms Normal sinus rhythm Nonspecific T wave abnormality Abnormal ECG Confirmed by DONNIE MISTRY, VENKATESH ([id number]), editor department MAIRA HERNANDES ([id number] on 09/12/2019 8:39:06 AM Referred By: DARRICK Confirmed By:LV FIELDS MD
--- NOTE | 2019-09-07 01:37 | EKG12_ITS ---
Test Reason : CP ADMISSION Blood Pressure : / mmHG Vent. Rate : 077 BPM Atrial Rate : 077 BPM P-R Int : 158 ms QRS Dur : 084 ms QT Int : 398 ms P-R-T Axes : 041 053 079 degrees QTc Int : 450 ms Normal sinus rhythm Nonspecific T wave abnormality Abnormal ECG When compared with ECG of 07-SEP-2019 01:33, MANUAL COMPARISON REQUIRED, DATA IS UNCONFIRMED Confirmed by DONNIE MISTRY, VENKATESH ([id number]), legal editor KANDY MONSIVAIS ([id number]) on 09/10/2019 2:11:38 PM Referred By: GAGANDEEP Confirmed By:LV FIELDS MD
--- NOTE | 2019-09-07 01:42 | ED.VISSUMM ---
- ER Visit Summary Date of Service: 09/07/19 Chief Complaint: [Chest pain and abdominal pain] History of Present Illness: The patient is a 69 M [presents the emergency department with sudden onset of symptoms about an hour ago. Patient states that he was sitting watching television when the pain started. He describes a sharp stabbing pain that radiates from his epigastric region to his back. He denies any radiation into the arm or neck. He has some mild shortness of breath with it. He complains of nausea. Patient states last time he had pain like this it was related to a peptic ulcer. Patient denies any blood in his stool or black tarry stool. He has no heart history. He does have history remote of pulmonary emboli however he is not currently anticoagulated. He denies recent travel or surgery. He denies recent illness. He has had no fever or cough. Patient does relate eating lasagna for dinner. Patient has history of COPD, GERD, hypertension, history of GI bleed, history of peptic ulcer disease, history of hypothyroidism and IBS.] Physical Examination: [HEENT-PERRLA, EOMI. Cranial nerves II through XII grossly intact. TMs clear. Mucous membranes moist. No adenopathy. Cardiovascular-regular rate and rhythm without murmur or ectopy Lungs-clear to auscultation, chest wall stable without crepitus or subcu emphysema Abdomen-normoactive bowel sounds, soft. Patient has tenderness to palpation over the epigastric region that seems to reproduce his pain. Patient has mild tenderness over the right upper quadrant with some guarding. There is no rebound, rigidity, or peritoneal signs. Extremities-intact ?4, normal range of motion, normal pulses, atraumatic] Test Results: [EKG obtained on arrival showed sinus rhythm with a ventricular rate of [address] changes noted. When compared with prior EKG from February 2019 no significant changes noted.] CBC with differential obtained showed a white count 6.1, hemoglobin 16, hematocrit 49, platelets 223. Chemistries unremarkable. LFTs unremarkable. Lipase 253. Troponin less than 0.015. Lactate was 2.4. Chest x-ray showed nothing acute. CTA of the chest was obtained to rule out dissection which was negative for PE or dissection. CT scan of the abdomen pelvis obtained read by radiology as a sludge in the gallbladder without evidence of cholecystitis. Patient also had nonobstructing left lower renal pole calculi measuring up to 3 mm. Patient also had a 9 mm relative hyperdense lesion in the lateral midpole of the right kidney which is unchanged from prior imaging in 2017. 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 Emergency Department Course and Treatment: [IV line established. Patient was given Dilaudid 1 mg IV as well as Zofran 4 mg IV. Patient was given Protonix 80 mg IV bolus. Patient had good pain relief.] At this point etiology of patient's pain is unclear. In the differential would be gallbladder disease versus cardiac etiology versus peptic ulcer disease. Also in the differential would be ischemic bowel disease. Treatment Plan: [Admit] Disposition: [Admit] Impression: [Abdominal pain-etiology uncertain Chest pain-etiology uncertain] This note was generated with [employer] dictation software. It may contain incorrect words, spelling, and punctuation that were not noted in review of the chart prior to signing ED Disposition - Plan for ED Patient: Referrals: Alfred Bailey DO [Primary Care Provider] -
[2019-09-07] MEDS: 0.9% Normal Saline 1,000 ML 150 ML IV ×2 (01:44→08:58)
[2019-09-07] MEDS: HYDROmorphone 1 MG/ML Syringe IV (01:44)
[2019-09-07] MEDS: Ondansetron 4 MG/2 ML Vial IV (01:44)
[2019-09-07 01:48] LABS: Absolute Neutrophil Count 3.2 X10^3/uL (2.0-7.7); Basophil# 0.04 X10^3/uL; Basophil% 0.7 % (0-1); Eosinophil# 0.26 X10^3/uL; Eosinophils% 4.3 % (0-5); Hematocrit 48.9 % (40-54); Hemoglobin 16.1 g/dL (13.0-16.5); Lymphocyte % 31.3 % (19-41); Mean Corp Hgb Conc 32.9 g/dL (32-36); Mean Corpuscular Hgb 30.3 pg (27.0-32.0); Mean Corpuscular Volume 92.1 fL (80-94); Mean Platelet Vol. 9.7 fl (6.2-12.0); Monocyte# 0.68 X10^3/uL; Monocyte% 11.2 % (0-10); NRBC Flagged by Analyzer 0 % (0-5); Neutrophil # 3.18 X10^3/uL (2.7-7.7); Neutrophil % 52.2 % (47-70); Platelet Count 223 K/mm3 (150-450); RBC Distribution Width CV 13.1 % (11.6-14.6); RBC Distribution Width SD 44.1 fl (35.1-43.9); Red Blood Count 5.31 M/mm3 (4.6-6.2); White Blood Count 6.1 K/mm3 (4.4-11.0)
--- NOTE | 2019-09-07 01:50 | RAD_ITS ---
HISTORY: chest pain, upper abdomen pain, vomiting ADDITIONAL HISTORY: None provided. EXAMINATION/TECHNIQUE: XR Chest 1 View AP/PA Number of images including paperwork: 1 COMPARISON: 03/07/2019 FINDINGS: LUNGS AND PLEURA: No consolidation, mass or pleural effusion. CARDIAC SILHOUETTE: Unremarkable. MEDIASTINUM AND JOANNA: Unremarkable. UPPER ABDOMEN: Unremarkable. SKELETON AND SOFT TISSUES: No acute findings. Degenerative changes. OTHER DEVICES AND HARDWARE: None. RAD/Chest 1 View (Portable) IMPRESSION: No acute findings on this portable exam. Follow-up as clinically indicated. at 0307 Reported and signed by: Amy Momin MD Electronically Signed: Amy Momin MD at 3:06 EDT Tel , Service support ,
--- NOTE | 2019-09-07 01:51 | CT_ITS ---
STUDY: CT ABDOMEN AND PELVIS WITH CONTRAST REASON FOR EXAM: Male, 69 years old. Epigastric pain with radiation to the back. RADIATION DOSAGE (If Supplied By Facility): CTDIvol = ( 22.76 ) mGy, DLP = ( 2407.10 ) mGycm TECHNIQUE: Transaxial images were obtained from the dome of the diaphragm to the symphysis pubis without oral contrast. IV 100mL Isovue-300 was administered. Sagittal and coronal images were reconstructed. Individualized dose optimization techniques were used for this CT. COMPARISON: 03/16/2016 FINDINGS: Bibasilar atelectasis versus scar formation. The visualized portions of the heart are within normal limits. Normal liver. Sludge layering in a mildly distended gallbladder with no pericholecystic inflammation. Calcified granulomata within the spleen. Normal pancreas. Normal bilateral adrenal glands. 9 mm exophytic lesion off the lateral midpole of the right kidney which relatively hyperattenuated, unchanged from prior imaging. There are 2 calcifications within the left lower renal pelvis measuring up to 3 mm. No hydronephrosis. Normal bilateral ureters. Normal visualized stomach. Normal small intestine. Normal colon. The appendix is visualized and appears normal. Mild atherosclerotic plaque within the abdominal vasculature. Normal inferior vena cava. Mild hazy infiltration of the root of the mesentery. Normal retroperitoneum. Normal urinary bladder. Normal abdominal wall. Mild to moderate multilevel degenerative change of the spine. CT/Abdomen/Pelvis WITH Contrast IMPRESSION: 1. Gallbladder sludge with no evidence of acute cholecystitis. 2. Nonobstructing left lower renal pole calculi measuring up to 3 mm. 3. 9 mm relative hyperdense lesion in the lateral midpole of the right kidney, unchanged from prior imaging in either representing proteinaceous or hemorrhagic cyst versus enhancing neoplasm. Dedicated MR imaging should be obtained for more definitive characterization. 4. 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
--- NOTE | 2019-09-07 01:51 | CT_ITS ---
HISTORY: EPIGASTRIC PAIN RADIATING TO BACK X 1 HOUR,NAUSEAHX:GERD,GI BLEED,HYPOTHYROID,HTN,IBS TECHNIQUE: CT images of the chest were obtained [id number] Isovue-300 IV contrast. Number of images including paperwork: [phone]. A radiation dose optimization technique was used for this scan. COMPARISON: 03/08/2019 FINDINGS: VASCULATURE: Vascular tortuosity. No dissection. HEART/PERICARDIUM: Normal heart size. Coronary calcification. MEDIASTINUM: Unremarkable. ADENOPATHY: No pathologic appearing adenopathy. Calcified nodes THYROID: Unremarkable visualized portions. LUNG PARENCHYMA: No consolidation or mass. Dependent atelectasis. Linear basilar subsegmental atelectasis versus scarring. PLEURAL SPACES: Unremarkable. UPPER ABDOMEN: Hepatic and splenic granulomata. OSSEOUS AND SOFT TISSUE STRUCTURES: No acute skeletal findings. Degenerative changes. DEVICES: None. CT/Chest WITH Contrast IMPRESSION: No acute abnormality of the chest. Individualized dose optimization techniques were used for this CT. at 0352 Reported and signed by: Amy Momin MD Electronically Signed: Amy Momin MD at 3:52 EDT Tel , Service support ,
[2019-09-07 02:06] LABS: ALB/GLOB Ratio 0.9 RATIO (0.9-2.4); AST(SGOT) 19 U/L (15-37); Alanine Aminotransfer ALT/SGPT 16 U/L (16-61); Albumin, Serum 3.6 g/dL (3.2-5.0); Alkaline Phosphatase 61 U/L (45-117); Anion Gap 3 (5-15); BUN 14 mg/dL (7-18); BUN/Creat Ratio 11.9 RATIO (10-20); Calcium,Total 8.6 mg/dL (8.5-10.1); Chloride 108 mmol/L (98-107); Creatinine, Serum 1.18 mg/dL (0.70-1.30); EST Glomerular Filtration Rate 65 mL/min (>60); Est Glom Filt Rate - Afr Amer 78 mL/min (>60); Estimated Creatinine Clearance 59.29 ml/min; Globulin 4.1 g/dL (2.2-4.2); Glucose 118 mg/dL (74-106); Lipase 253 U/L (73-393); Potassium 3.7 mmol/L (3.5-5.1); Protein, Total 7.7 g/dL (6.4-8.2); Sodium Level 140 mmol/L (136-145)
[2019-09-07 02:13] LABS: Lactic Acid 2.4 mmol/L (0.4-1.9)
[2019-09-07] MEDS: Aspirin 81 MG TAB.CHEW 162 MG PO (04:04)
--- NOTE | 2019-09-07 04:32 | HP.PCM_ITS ---
History of Present Illness Date of Admission: 09/07/19 Chief Complaint: chest pain The patient is a 69 year old M with a past medical history as outlined which includes hypothyroidism, hypertension and history of peptic ulcer disease. He was admitted through the ED on 09/07/2019 with a complaint of chest pain. Chest pain started at around midnight prior to admission. He states pain was sharp right-sided at about 10 out of 10 and states it radiated to his back and epigastrium. He had no associated lightheadedness or dizziness or palpitations and denied any increased sweating. He denied any shortness of breath and denied any fever or chills, nausea vomiting though he admitted to retching. He also de nied diarrhea. He was symptoms otherwise negative. He has never had such pain before in the past and denies any history of cardiac issues. He does admit to a remote history of peptic ulcer disease. In the ED, vitals showed temperature of 98.1 Fahrenheit with blood pressure of 144/77, pulse rate of 83 respiratory rate of 15. He was saturating at 94% on 2 L of oxygen. Chemistry showed sodium of 140 with potassium of 3.7 and creatinine of 1.18 with lactic acid of 2.4. Initial troponin was less than 0.015. CBC showed hemoglobin of 16.1 and WBC of 6.1 with platelets of 223. Chest x-ray showed no acute findings and CT of the chest showed no acute abnormality of the chest. 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 Patient has been admitted to be managed for chest pain rule out ACS. [] Past Medical History Past Medical History (Chronic Problems): Chronic Problems (Last Reviewed 03/16/18 @ 15:[address] Bogdan Mcgraw DO) Duodenal ulcer (Chronic) GI bleed (Chronic) Gastroenteritis (Chronic) Thoracic neuritis (Chronic) Segmental and somatic dysfunction of cervical region (Chronic) Segmental and somatic dysfunction of thoracic region (Chronic) Segmental and somatic dysfunction of lumbar region (Chronic) Serotonergic syndrome (Chronic) Bilateral pulmonary embolism (Chronic) Hypertension (Chronic) COPD (chronic obstructive pulmonary disease) (Chronic) Hypothyroidism (Chronic) Irritable bowel syndrome (Chronic) GERD (gastroesophageal reflux disease) (Chronic) Medical History: Medical History (Last Reviewed 03/16/18 @ 15:[address] Bogdan Mcgraw DO) Hyperthyroidism E05.90 Allergies albuterol Allergy (Verified 09/07/19 01:34) Itching amoxicillin Allergy (Verified 09/07/19 01:34) doesnt rememeber happened as a child fluoxetine [From Prozac] Adverse Reaction (Verified 09/07/19 01:34) Other serotonin syndrome Home Medications: Ambulatory Orders Medication Instructions Recorded Fluvoxamine Maleate [Luvox] 150 mg PO QHS 03/16/18 Lisinopril [Zestril] 20 mg PO BID 03/16/18 Lorazepam [Ativan] 0.5 mg PO TID 03/16/18 Simvastatin 20 mg PO DAILY 03/16/18 Dextran 70/Hypromellose [Natural 1 drp EACH EYE DAILY PRN PRN 03/07/19 Balance Tears Eye Drop] Polyethylene Glycol 3350 [Miralax] 17 gm PO DAILY PRN PRN 03/07/19 Pantoprazole Sodium [Protonix] 40 mg PO BID 09/07/19 Surgical History: - - surgery on right knee Psychiatric History: No pertinent psych hx Lives: Spouse/ Significant Other Smoking Status: Former smoker Drugs: None - *Family History Maternal History Items: Heart Disease Paternal History Items: Cancer - Father of colorectal CA Review of Systems Constitutional: Denies: Chills, Fever, Malaise, Weakness, Weight Change Eyes: Denies: Blurred vision HEENT: Denies: Head Aches, Sinus Congestion, Sinus Drainage Cardiovascular: Reports: Chest Pain. Denies: Chest Pressure, Chest Tightness, Edema, Heaviness, Light Headedness, Orthopnea, Palpitations, Syncope Respiratory: Denies: Cough, Shortness of Breath, Shortness of breath at rest, Shortness of breath upon exertion, Sputum production Gastrointestinal: Reports: Abdominal Pain. Denies: Diarrhea, Dyspepsia, Hematemesis, Nausea, Vomiting Genitourinary: Denies: Dysuria Musculoskeletal: Denies: Joint Pain, Joint Tenderness Skin: Denies: Rash, Wounds Neurological: Denies: Numbness, Tingling, Focal weakness Psychiatric: Denies: Anxiety, Depression, Homicidal Ideations, Suicidal Ideations Hematologic/ Lymphatic: Denies: Easy Bruising, Easy Bleeding VTE Information - Inpt Only VTE Present on Admission: No VTE Mechan Device Prophylaxis: SCD's - Physical Exam Vitals/I&O's: Vital Signs Temp Pulse Resp BP Pulse Ox 96.7 F L 78 16 144/77 H 93 09/07/19 01:29 09/07/19 04:02 09/07/19 04:02 09/07/19 04:02 09/07/19 04:02 Oxygen Flow Rate (L/min) 2 Oxygen Delivery Method Nasal Cannula Weight: 264 lb 1.82 oz Body Mass Index (BMI) 37.9 Intake and Output for Last 24 Hours 09/05/19 09/06/19 09/07/19 23:59 23:59 23:59 Intake Total Balance General: Alert, Oriented x3, Cooperative, No apparent distress HEENT: Atraumatic, PERRLA, EOMI, Normocephalic Oral: Dry Mucosa Neck: Supple, No JVD, Negative Carotid Bruits Lungs: Clear to auscultation, Normal air movement, No rhonchi, No wheeze, No rales Cardiovascular: Regular rate, Regular Rhythm, Normal S1, Normal S2, No murmurs Abdomen: Bowel Sounds Present, Soft, Non Tender, Non-Distended, No Hepato- splenomegaly Extremities: No clubbing, No cyanosis, No edema, Capillary Refill Less than 3 Seconds Skin: No rashes, No breakdown Musculoskeletal: No Tenderness to Palpation of Joints or Extremities Lymphatic: No Cervical, Supraclavicular, or Inguinal Adenopathy Neurological: Cranial nerves II-XII grossly intact, Neuro grossly intact, Motor Exam 5/5 strength throughout Psych/Mental Status: Normal Affect, Appropriate, Alert and oriented to time, place, person, mood and affect Laboratory Results 09/07/19 01:40: WBC 6.1, RBC 5.31, Hgb 16.1, Hct 48.9, MCV 92.1, MCH 30.3, MCHC 32.9, RDW Std Deviation 44.1 H, RDW Coeff of [place] 13.1, Plt Count 223, MPV 9.7, Immature Gran % (Auto) 0.300, Neut % (Auto) 52.2, Lymph % (Auto) 31.3, [place] % (Auto) 11.2 H, Eos % (Auto) 4.3, Baso % (Auto) 0.7, Absolute Neuts (auto) 3.2, Absolute Lymphs (auto) 1.90, Nucleated RBC % 0 09/07/19 01:40: Sodium 140, Potassium 3.7, Chloride 108 H, Carbon Dioxide 29.0, Anion Gap 3 L, BUN 14, Creatinine 1.18, Estim Creat Clear Calc 59.29, Est GFR (MDRD) Af Amer 78, Est GFR (MDRD) Non-Af 65, BUN/Creatinine Ratio 11.9, Glucose 118 H, Calcium 8.6, Total Bilirubin 0.60, AST 19, ALT 16, Alkaline Phosphatase 61, Troponin I < 0.015, Total Protein 7.7, Albumin 3.6, Globulin 4.1, Albumin/Globulin Ratio 0.9, Lipase 253 09/07/19 01:40: Lactic Acid 2.4 H* Diagnostic Data Chest X-Ray 09/07/19 01:50 IMPRESSION: No acute findings on this portable exam. Follow-up as clinically indicated. at 0307 Reported and signed by: Amy Momin MD Electronically Signed: Amy Momin MD at 3:06 EDT Tel , Service support , Abdomen/Pelvis CT 09/07/19 01:51 IMPRESSION: 1. Gallbladder sludge with no evidence of acute cholecystitis. 2. Nonobstructing left lower renal pole calculi measuring up to 3 mm. 3. 9 mm relative hyperdense lesion in the lateral midpole of the right kidney, unchanged from prior imaging in either representing proteinaceous or hemorrhagic cyst versus enhancing neoplasm. Dedicated MR imaging should be obtained for more definitive characterization. 4. 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 Individualized dose optimization techniques were used for this CT. at 0352 Reported and signed by: Amy Momin MD Electronically Signed: Amy Momin MD at 3:52 EDT Tel , Service support , Current Medications Sodium Chloride () 1,000 mls @ 150 mls/hr IV .Q6H40M [facility] Last Admin: 09/07/19 01:44 Dose: 150 mls/hr Documented by: Assessment/Plan All Active Problems (Last Reviewed 03/16/18 @ 15:[address] Bogdan Mcgraw, DO) Chest pain (Acute) TOMI (acute kidney injury) (Resolved) 69 y/o admitted with a complaint of chest pain 1. 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 * Initial troponin was negative. EKG showed normal sinus rhythm with no acute ST changes. * Cycle troponins x3. * P.o. aspirin 81 mg daily. Sublingual nitroglycerin as needed. * he had negative stress test in February 2019 * to discuss with cardiology about another stress test if troponins are negative * 2. Lactic acidosis: Lactic acid is 2.4. Reason for this is unclear. Hydrate patient gently with IV fluids and trend. 3. History of hypertension: On lisinopril 20 mg twice daily. 4. History of peptic ulcer disease: On pantoprazole 40 mg twice daily. 5. Hyperlipidemia: On simvastatin 20 mg daily. 6. RIght kidney lesion: as under abdomino-pelvic CT in 1. To follow up with PCP for MRI of abdomen for follow up. DVT prophylaxis: SCDs CODE STATUS: Full code * Patient counseled extensively about different types of CODE STATUS including full code, DNR CCA and DNR CCA. Patient elects to be full code. * Total [id number] time 16 minutes. OBSV E&M: 97451 Initial observation care L2 Procedures: 94747 Advncd Care Plan 30 Min
[2019-09-07 05:46] LABS: Reflex Lactate? Y
[2019-09-07] MEDS: LORazepam 0.5 MG Tablet PO (06:03)
[2019-09-07 06:04] LABS: Absolute Lymphocyte Count 0.79 X10^3/uL (0.83-4.51); Absolute Neutrophil Count 5.4 X10^3/uL (2.0-7.7); Basophil# 0.04 X10^3/uL; Basophil% 0.6 % (0-1); Eosinophil# 0.07 X10^3/uL; Hematocrit 45.3 % (40-54); Hemoglobin 14.9 g/dL (13.0-16.5); Lymphocyte # 0.79 X10^3/ul (4.0); Lymphocyte % 11.3 % (19-41); Mean Corp Hgb Conc 32.9 g/dL (32-36); Mean Corpuscular Volume 94.2 fL (80-94); Mean Platelet Vol. 9.6 fl (6.2-12.0); Monocyte# 0.63 X10^3/uL; NRBC Flagged by Analyzer 0 % (0-5); Neutrophil # 5.43 X10^3/uL (2.7-7.7); Neutrophil % 77.7 % (47-70); Platelet Count 174 K/mm3 (150-450); RBC Distribution Width CV 13.2 % (11.6-14.6); RBC Distribution Width SD 45.5 fl (35.1-43.9); Red Blood Count 4.81 M/mm3 (4.6-6.2)
[2019-09-07] MEDS: Lisinopril 20 MG Tablet PO (06:04)
[2019-09-07 06:22] LABS: Anion Gap 2 (5-15); BUN 13 mg/dL (7-18); BUN/Creat Ratio 12.9 RATIO (10-20); Calcium,Total 8.1 mg/dL (8.5-10.1); Chloride 109 mmol/L (98-107); Creatinine, Serum 1.01 mg/dL (0.70-1.30); EST Glomerular Filtration Rate 77 mL/min (>60); Est Glom Filt Rate - Afr Amer 94 mL/min (>60); Estimated Creatinine Clearance 69.27 ml/min; Glucose 118 mg/dL (74-106); Potassium 4.7 mmol/L (3.5-5.1); Sodium Level 137 mmol/L (136-145)
[2019-09-07 06:35] LABS: Lactic Acid 1.4 mmol/L (0.4-1.9)
[2019-09-07] MEDS: Pantoprazole Sodium 40 MG Tablet PO (10:33)
[2019-09-07] MEDS: Ibuprofen 600 MG Tablet PO (10:33)
--- NOTE | 2019-09-07 10:35 | DCINST_ITS ---
You will use the following diet at home:: Cardiac Discharge Activity: May Not Drive - F/U with PCP in 1-2 week Call your doctor if you observe: Fever of 101 or Higher, Coldness, Increased Pain, Change in Color, Inability to urinate, Shortness of breath, Dizziness, Fainting spells, Swelling in the ankles, Chest pain, Prolonged hiccoughing, Increased palpitations (irregular heartbeat), Calf discomfort Allergies/Adverse Reactions: Allergies albuterol Allergy (Verified 09/07/19 01:34) Itching amoxicillin Allergy (Verified 09/07/19 01:34) doesnt rememeber happened as a child fluoxetine [From Prozac] Adverse Reaction (Verified 09/07/19 01:34) Other serotonin syndrome Medications to take at Discharge Fluvoxamine Maleate [Luvox] 150 mg PO QHS 03/16/18 Lisinopril [Zestril] 20 mg PO BID 03/16/18 Lorazepam [Ativan] 0.5 mg PO TID 03/16/18 Simvastatin 20 mg PO DAILY 03/16/18 Dextran 70/Hypromellose [Natural Balance Tears Eye Drop] 1 drp EACH EYE DAILY PRN PRN 03/07/19 Polyethylene Glycol 3350 [Miralax] 17 gm PO DAILY PRN PRN 03/07/19 Guaifenesin [Mucinex] 1,200 mg PO BID #14 tab.er.12h 09/07/19 Pantoprazole Sodium [Protonix] 40 mg PO BID 09/07/19 The following prescriptions were given: Guaifenesin [Mucinex] 1,200 mg PO BID #14 tab.er.12h Transmission Status: Pending to [facility] Primary Care Physician: Alfred Bailey DO [Primary Care Provider] - Please follow up with your Primary Care Physician in: in 2 weeks Test Results: Test results from this visit will be discussed in further detail at your follow- up appointment, if applicable. Please Follow Up With: Ashutosh Rivera MD When: in 4 weeks for atypical chest pain
--- NOTE | 2019-09-07 10:37 | DS.PCM_ITS ---
Discharge Date and Diagnosis Date of Admission: 09/07/19 Date of Discharge: 09/07/19 - Secondary Discharge Diagnosis Chronic Problems: Chronic Problems (Last Reviewed 03/16/18 @ 15:[address] Bogdan Mcgraw, DO) Duodenal ulcer (Chronic) GI bleed (Chronic) Gastroenteritis (Chronic) Thoracic neuritis (Chronic) Segmental and somatic dysfunction of cervical region (Chronic) Segmental and somatic dysfunction of thoracic region (Chronic) Segmental and somatic dysfunction of lumbar region (Chronic) Serotonergic syndrome (Chronic) Bilateral pulmonary embolism (Chronic) Hypertension (Chronic) COPD (chronic obstructive pulmonary disease) (Chronic) Hypothyroidism (Chronic) Irritable bowel syndrome (Chronic) GERD (gastroesophageal reflux disease) (Chronic) Hospital Course and Treatment Imaging Results: 09/07/19 01:50 Chest 1 View (Portable) [RAD] Stat 09/07/19 01:51 Abdomen/Pelvis WITH Contrast [CT] Stat CT Chest [Chest WITH Contrast] [CT] Stat Operations: None Summary of Care Provided: 69 y/o admitted with with multiple comorbidities including history of peptic ulcer disease on PPI admitted with chest pain around midnight on the day of admission. Pain was radiated to his back and epigastrium. Patient was admitted in PCU. Twelve-lead EKG shows normal sinus rhythm at [address]-T changes. No significant change from previous EKG of February 2019. Serial troponin enzymes are negative. Patient had negative stress test in February 2019. Discussed with the hand bulldozer Dr. lennon and he advised to follow-up in the office. Patient has history of allergic rhinitis/hypersensitivity to pollens and sinus disease. Has mild chest congestion. Discharged on Mucinex. Lactic acidosis most probably secondary to dehydration. Repeat lactic acid normal after hydration. Other comorbidities include hypertension, chronic peptic ulcer disease, dyslipidemia and right kidney lesion: CT abdomen pelvis shows gallbladder sludge with no evidence of acute cholecystitis and nonobstructing left lower renal pole calculi measuring 3 mm and 9 mm relative hypodense lesion in the lateral midpole of right kidney, unchanged from prior imaging and mesenteric pancolitis. Discharge medication reconciliation done. Discharge follow-up instructions completed. Discharge process discussed with the patient and all questions were answered to patient's satisfaction. Total time spent, exact 35 minutes on discharge meds reconciliation, examination, coordination of care with nurses and ancillary staff, review of imaging and blood test and discussion with the patient on follow-up instructions Objective: Seen and examined. Patient has serial troponin enzymes negative. Heart rate and blood pressure control. Patient had negative stress test in February 2019. In the morning, patient again had chest pain which got improved with ibuprofen., Noncardiac in origin Physical exam General: Alert, Oriented x3, Cooperative HEENT: Atraumatic, PERRLA, EOMI, Normocephalic Oral: No Gingival or Mucosal Lesions/ Ulcerations Neck: Supple, No JVD, Negative Carotid Bruits Lungs: Air entry diminished in bilateral lung bases. No crepitation/rhonchi Cardiovascular: Regular rate, Regular Rhythm, Normal S1, Normal S2, No murmurs. Normal sinus rhythm on stock broker. Abdomen: Bowel Sounds Present, Soft, Non Tender, Non-Distended : No renal angle tenderness. No suprapubic tenderness. Extremities: No edema, Capillary Refill Less than 3 Seconds Skin: No rashes, No breakdown Musculoskeletal: No Tenderness to Palpation of Joints or Extremities Neurological: Cranial nerves II-XII grossly intact, Deep Tendon Reflexes 2+/4 and Symmetrical, Neuro grossly intact Psych/Mental Status: Normal Affect, Appropriate. - Physical Exam Vitals/I&O's: Vital Signs Temp Pulse Resp BP Pulse Ox 98.0 F 80 13 145/76 H 94 09/07/19 10:12 09/07/19 10:12 09/07/19 10:12 09/07/19 10:12 09/07/19 10:12 Oxygen Flow Rate (L/min) 2 Oxygen Delivery Method Room Air Weight: 261 lb 11.019 oz Body Mass Index (BMI) 37.5 Intake and Output for Last 24 Hours 09/05/19 09/06/19 09/07/19 23:59 23:59 23:59 Intake Total 1275 / 1275 Balance 1275 / 1275 Laboratory Results 09/07/19 01:40: WBC 6.1, RBC 5.31, Hgb 16.1, Hct 48.9, MCV 92.1, MCH 30.3, MCHC 32.9, RDW Std Deviation 44.1 H, RDW Coeff of [place] 13.1, Plt Count 223, MPV 9.7, Immature Gran % (Auto) 0.300, Neut % (Auto) 52.2, Lymph % (Auto) 31.3, [place] % (Auto) 11.2 H, Eos % (Auto) 4.3, Baso % (Auto) 0.7, Absolute Neuts (auto) 3.2, Absolute Lymphs (auto) 1.90, Nucleated RBC % 0 09/07/19 01:40: Sodium 140, Potassium 3.7, Chloride 108 H, Carbon Dioxide 29.0, Anion Gap 3 L, BUN 14, Creatinine 1.18, Estim Creat Clear Calc 59.29, Est GFR (MDRD) Af Amer 78, Est GFR (MDRD) Non-Af 65, BUN/Creatinine Ratio 11.9, Glucose 118 H, Calcium 8.6, Total Bilirubin 0.60, AST 19, ALT 16, Alkaline Phosphatase 61, Troponin I < 0.015, Total Protein 7.7, Albumin 3.6, Globulin 4.1, Albumin/Globulin Ratio 0.9, Lipase 253 09/07/19 01:40: Lactic Acid 2.4 H* 09/07/19 05:54: WBC 7.0, RBC 4.81, Hgb 14.9, Hct 45.3, MCV 94.2 H, MCH 31.0, MCHC 32.9, RDW Std Deviation 45.5 H, RDW Coeff of [place] 13.2, Plt Count 174, MPV 9.6, Immature Gran % (Auto) 0.400, Neut % (Auto) 77.7 H, Lymph % (Auto) 11.3 L, [place] % (Auto) 9.0, Eos % (Auto) 1.0, Baso % (Auto) 0.6, Absolute Neuts (auto) 5.4, Absolute Lymphs (auto) 0.79 L, Nucleated RBC % 0 09/07/19 05:54: Sodium 137, Potassium 4.7, Chloride 109 H, Carbon Dioxide 26.0, Anion Gap 2 L, BUN 13, Creatinine 1.01, Estim Creat Clear Calc 69.27, Est GFR (MDRD) Af Amer 94, Est GFR (MDRD) Non-Af 77, BUN/Creatinine Ratio 12.9, Glucose 118 H, Calcium 8.1 L 09/07/19 05:54: Troponin I < 0.015 09/07/19 05:54: Lactic Acid 1.4 09/07/19 08:20: Troponin I < 0.015 Current Medications Artificial Tears (Tears Naturale, Artificial Tears) 1 drop EACH EYE DAILY PRN PRN PRN Reason: DRY EYES Aspirin (Ecotrin) 81 mg PO DAILY@0800 [facility] Atorvastatin Calcium (Lipitor) 10 mg PO QHS [facility] Dextrose (D50w Syringe) 0 gm IV X1 PRN; Protocol PRN Reason: Hypoglycemia Fluvoxamine Maleate (Luvox) 150 mg PO QHS [facility] Glucagon () 1 mg IM .X1 PRN PRN Reason: Hypoglycemia Sodium Chloride () 1,000 mls @ 150 mls/hr IV .Q6H40M [facility] Last Admin: 09/07/19 08:58 Dose: 150 mls/hr Documented by: Ibuprofen (Motrin) 600 mg PO Q8H PRN PRN PRN Reason: Pain Score 1-10/10 Last Admin: 09/07/19 10:33 Dose: 600 mg Documented by: Lisinopril (Zestril) 20 mg PO BID [facility] Last Admin: 09/07/19 06:04 Dose: 20 mg Documented by: Lorazepam (Ativan) 0.5 mg PO TID [facility] Last Admin: 09/07/19 06:03 Dose: 0.5 mg Documented by: Nitroglycerin (Nitrostat) 0.4 mg SUBLINGUAL Q5M PRN PRN Reason: CARDIAC/CHEST PAIN Ondansetron HCl (Zofran) 4 mg IV Q8H PRN PRN PRN Reason: NAUSEA/VOMITING Pantoprazole Sodium (Protonix) 40 mg PO BID [facility] Last Admin: 09/07/19 10:33 Dose: 40 mg Documented by: Polyethylene Glycol (Miralax) 17 gm PO DAILY PRN PRN PRN Reason: Constipation Sodium Chloride () 10 - 40 ml IV UD PRN PRN Reason: SALINE FLUSH Discharge Activity: May Not Drive - F/U with PCP in 1-2 week Call your doctor if you observe: Fever of 101 or Higher, Coldness, Increased Pain, Change in Color, Inability to urinate, Shortness of breath, Dizziness, Fainting spells, Swelling in the ankles, Chest pain, Prolonged hiccoughing, Increased palpitations (irregular heartbeat), Calf discomfort Home Medications: Medications to take at Discharge Fluvoxamine Maleate [Luvox] 150 mg PO QHS 03/16/18 Lisinopril [Zestril] 20 mg PO BID 03/16/18 Lorazepam [Ativan] 0.5 mg PO TID 03/16/18 Simvastatin 20 mg PO DAILY 03/16/18 Dextran 70/Hypromellose [Natural Balance Tears Eye Drop] 1 drp EACH EYE DAILY PRN PRN 03/07/19 Polyethylene Glycol 3350 [Miralax] 17 gm PO DAILY PRN PRN 03/07/19 Guaifenesin [Mucinex] 1,200 mg PO BID #14 tab.er.12h 09/07/19 Pantoprazole Sodium [Protonix] 40 mg PO BID 09/07/19 Following Prescriptions Were Given to Patient: Guaifenesin [Mucinex] 1,200 mg PO BID #14 tab.er.12h Transmission Status: Received by [facility] Primary Care Physician: Alfred Bailey DO [Primary Care Provider] - Please follow up with your Primary Care Physician in: in 2 weeks Please Follow Up With: Ashutosh Lennon MD When: in 4 weeks for atypical chest pain Medical Necessity - Tobacco Use Smoking Status: Former smoker Meaningful Use Info Meaningful Use Diagnoses (Choose all that apply): None applicable OBSV E&M: 41259 Observ/hosp same date L3
--- NOTE | 2019-09-07 11:33 | PHA.DC.MC ---
Pharmacy Service has performed discharge medication reconciliation and counseling for this patient. 1. GUAIFENESIN 1200MG PO BID The patient's discharge medication list was reviewed for discrepancies and discrepancies were resolved. Prescriptions were sent to [facility] but patient prefers [facility]. 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 Home Medications Fluvoxamine Maleate [Luvox] 150 mg PO QHS 03/16/18 Lisinopril [Zestril] 20 mg PO BID 03/16/18 Lorazepam [Ativan] 0.5 mg PO TID 03/16/18 Simvastatin 20 mg PO DAILY 03/16/18 Dextran 70/Hypromellose [Natural Balance Tears Eye Drop] 1 drp EACH EYE DAILY PRN PRN 03/07/19 Polyethylene Glycol 3350 [Miralax] 17 gm PO DAILY PRN PRN 03/07/19 Guaifenesin [Mucinex] 1,200 mg PO BID #14 tab.[id number] 09/07/19 Pantoprazole Sodium [Protonix] 40 mg PO BID 09/07/19 The patient was counseled on the following discharge medications and changes in medications for homegoing were reviewed. The Reason for Use, instructions for use, and potential side effects were reviewed for all new medications. The patient's questions regarding all of their medications were answered. The patient was able to verbally demonstrate an understanding of their discharge medications. Patient counseled by pharmacy tech customer service Gloria.
== END 2019-09-07 10:37 | disposition home or self-care (01) ==
LOC: ED 02:45 → PCU 04:53
PROVIDERS: Admitting Provider Student in an Organized Health Care Education/Training Program; Emergency Provider Emergency Medicine; PCP Family Medicine; Visit Provider Internal Medicine
DX: R07.89 Other chest pain (principal); I10 Essential (primary) hypertension; K26.4 Chronic or unspecified duodenal ulcer with hemorrhage; E78.5 Hyperlipidemia, unspecified; R06.02 Shortness of breath; R11.0 Nausea; K21.9 Gastro-esophageal reflux disease without esophagitis; K58.9 Irritable bowel syndrome, unspecified; J44.9 Chronic obstructive pulmonary disease, unspecified; Z86.711 Personal history of pulmonary embolism; Z79.899 Other long term (current) drug therapy; E05.90 Thyrotoxicosis, unspecified without thyrotoxic crisis or storm; M99.01 Segmental and somatic dysfunction of cervical region; M99.03 Segmental and somatic dysfunction of lumbar region; M99.02 Segmental and somatic dysfunction of thoracic region; Z87.891 Personal history of nicotine dependence; E87.2 Acidosis; N28.9 Disorder of kidney and ureter, unspecified
CPT/HCPCS: 36415; 71045; 71260; 74177; 80048; 80053; 83605; 83690; 84484; 85025; 93005; 96361; 96374; 96375; 97802; 99218; 99285; J7030; Q9967; A4216; G0378; J2405; J3490

== ENCOUNTER → 2019-09-21 13:16 | Outpatient (CLI) | payer MEDICARE, SELFPAY ==
[2019-09-07 05:03] VITALS: BMI 37.5
--- NOTE | 2019-09-21 13:45 | MRI_ITS ---
HISTORY: abnormal finding on ct, NO COMPLAINTS ADDITIONAL HISTORY: None provided. COMPARISON: CT 09/07/2019 TECHNIQUE: Multiplanar, multisequence MRI of the abdomen without and with 25 mL Dotarem FINDINGS: LOWER THORAX: Unremarkable visualized portions. LIVER: No concerning focal lesion. GALLBLADDER: Multiple small gallstones. BILE DUCTS: No significant biliary dilatation. KIDNEYS/URETERS: 7 x 9 mm lesion is present in the lateral aspect of the right kidney, series 8 image 51. This is hypointense on T1-weighted imaging and slightly hyperintense on T2-weighted imaging. This appears to demonstrate enhancement on the single phase of postcontrast imaging which was performed (series 13 image 49), dynamic enhanced imaging not performed. No new left lower pole renal calculus not well seen. Retroaortic left renal vein. ADRENAL GLANDS: Unremarkable. SPLEEN: Unremarkable. PANCREAS: Unremarkable. GI TRACT: Unremarkable as imaged. LYMPH NODES: No pathologic appearing adenopathy. FREE FLUID: None. SKELETON AND SOFT TISSUES: No acute findings. Mild superior endplate loss of height of L3 appears similar to previous CT. MRI/MRI Abd WITH and W/O Contrast IMPRESSION: 1. Small right renal lesion, evaluation limited due to small size and motion artifact. This appears to be enhancing and is concerning for neoplasm. 2. Cholelithiasis. at 0023 Reported and signed by: Amy Momin MD Electronically Signed: Amy Momin MD at 0:23 EDT Tel , Service support ,
== END ==
PROVIDERS: PCP Family Medicine; Referring Provider Family Medicine; Visit Provider Family Medicine
DX: N28.89 Other specified disorders of kidney and ureter (principal)
CPT/HCPCS: 74183; A9575

== ENCOUNTER → 2019-11-16 13:46 | Outpatient (CLI) | payer MEDICARE, SELFPAY ==
[2019-09-07 05:03] VITALS: BMI 37.5
[2019-11-16 15:45] LABS: Hemoglobin A1c 5.3 % (3.8-5.6)
[2019-11-16 15:46] LABS: Vitamin D,25 Hydroxy 11.5 ng/mL
[2019-11-16 15:50] LABS: AST(SGOT) 15 U/L (15-37); Alanine Aminotransfer ALT/SGPT 18 U/L (16-61); Albumin, Serum 3.4 g/dL (3.2-5.0); Alkaline Phosphatase 63 U/L (45-117); Bilirubin, Direct 0.16 mg/dL (0.00-0.30); Globulin 3.9 g/dL (2.2-4.2); PSA,Total - Annual Screen 0.66 ng/mL (0.00-4.00); Protein, Total 7.3 g/dL (6.4-8.2)
== END ==
PROVIDERS: PCP Family Medicine; Visit Provider Family Medicine
DX: K76.0 Fatty (change of) liver, not elsewhere classified (principal); R73.01 Impaired fasting glucose; Z12.5 Encounter for screening for malignant neoplasm of prostate; E55.9 Vitamin D deficiency, unspecified
CPT/HCPCS: 36415; 80076; 82306; 83036; 84153; G0103

== ENCOUNTER → 2020-01-10 12:14 | Outpatient (CLI) | payer MEDICARE, SELFPAY ==
[2019-09-07 05:03] VITALS: BMI 37.5
--- NOTE | 2020-01-10 12:17 | ART_ITS ---
Reason For Study: leg pain Procedure A bilateral lower extremity continuous wave Doppler with analog waveform analysis,segmental pressures,and ankle brachial indexes without exercise. Left Segmental Pressures Left brachial= 159mmHg. Left posterior tibial artery = 220mmHg. Left dorsalis pedis artery = 184mmHg. The left dorsalis pedis waveforms are triphasic. The left posterior tibial artery waveforms are triphasic. Right Segmental Pressures Right brachial= 162mmHg. Right posterior tibial artery = 166mmHg. Right dorsalis pedis artery = 186mmHg. The right dorsalis pedis waveforms are triphasic. The right posterior tibial artery waveforms are triphasic. Indices The right ankle brachial index by the dorsalis pedis is 1.15. The right ankle brachial index by the posterior tibial artery is 1.02. The left ankle brachial index by the dorsalis pedis is 1.14. The left ankle brachial index by the posterior tibial artery is 1.36. Interpretation Summary Triphasic Doppler waveforms are noted at ankle level bilaterally. Pulse-volume recordings are satisfactory at low-thigh, calf, and ankle levels bilaterally. Resting ankle-brachial indices are normal bilaterally. There is no evidence of significant arterial occlusive disease in the lower extremities bilaterally. Ordering Physician: Fartun Johns Performed By: RADHA VELOZ T
== END ==
PROVIDERS: PCP Family Medicine; Referring Provider Family Medicine; Visit Provider Family Medicine
DX: I73.9 Peripheral vascular disease, unspecified (principal)
CPT/HCPCS: 93923

== ENCOUNTER 2020-04-10 17:29 | Outpatient (RCR) | payer MEDICARE, SELFPAY ==
[2019-09-07 05:03] VITALS: BMI 37.5
[2020-04-10] MEDS: COVID-19 VACC, MRNA(PFIZER)/PF 30 MCG/0.3 ML SYRINGE IM (15:20)
[2020-05-01] MEDS: COVID-19 VACC, MRNA(PFIZER)/PF 30 MCG/0.3 ML SYRINGE IM (14:50)
== END 2020-07-15 23:59 ==
LOC: IMMUN 17:29
PROVIDERS: PCP Family Medicine; Visit Provider Family Medicine
DX: Z23 Encounter for immunization (principal)
CPT/HCPCS: 0001A; 0002A; 91300

== ENCOUNTER → 2020-05-07 12:47 | Outpatient (CLI) | payer MEDICARE, SELFPAY ==
--- NOTE | 2020-05-07 13:00 | MRI_ITS ---
ACR Level 3 findings have been noted. An addendum which confirms receipt of the report will follow. STUDY: MRI LUMBAR SPINE WITH AND WITHOUT CONTRAST REASON FOR EXAM: Male, 70 years old. POSSIBLE METS/ BACK PAIN, KIDNEY CA TECHNIQUE: Standardized fat and water weighted pulse sequences were obtained in the sagittal and axial planes. IV Dotarem 25ml was administered for the contrast portion of the examination. COMPARISON: None FINDINGS: T11-T12: (Sagittal only). Minimal irregularities of the vertebral endplates due to intervertebral chondrosis. Mild disc space height narrowing. No ventral extradural defect. Normal central canal and the included portions of the bilateral intervertebral neural foramina. T12-L1: (Sagittal only). Tiny Schmorl''s nodes in the central aspect of the vertebral endplates. Mild disc space height narrowing. Normal central canal and bilateral intervertebral neural foramina. Normal lumbar lordosis. There is no substantial scoliosis. Normal conus medullaris that terminates at the upper L1 vertebral body level. L1-2: Normal endplates. Normal disc height, hydration and morphology. Normal bilateral facet joints. Normal central canal and bilateral lateral recesses. Normal bilateral intervertebral neural foramina. L2-3: Normal L2 inferior endplate. Recent central compression fracture with Schmorl''s node in the upper L3 vertebral body enhance with intravenous contrast. Prominent anterior marginal spurs. Small posterior bulging disc. Normal central canal and bilateral lateral recesses. Mild to moderate asymmetric degenerative facet arthropathy. Normal bilateral intervertebral neural foramina. L3-4: Prominent bridging anterior marginal spurs. Moderate reactive edema in the anterior superior corner of the L4 vertebral body which enhance with intravenous contrast. Normal endplates. Normal disc height and morphology. Normal central canal and bilateral lateral recesses. Mild asymmetric bilateral degenerative facet hypertrophy. Normal bilateral intervertebral neural foramina. L4-5: Minimal anterior marginal spurs. Normal L4 inferior endplate. Minimal old central compression fracture in the anterior aspect of the L5 superior endplate. MODIC type II degenerative vertebral marrow fatty changes underneath the L5 superior endplate. Increased disc space height at the L5 central compression fracture. Normal central canal and bilateral lateral recesses. Mild dorsal epidural lipomatosis. Mild asymmetric degenerative facet hypertrophy. Normal bilateral intervertebral neural foramina. L5-S1: Minimal anterior marginal spurs. Pronounced disc space height narrowing with MODIC type II degenerative vertebral marrow fatty changes underneath the vertebral endplates. Normal facet joints. Normal central canal and bilateral lateral recesses. Normal bilateral intervertebral neural foramina. Normal visualized sacral ala. Superficial midline subcutaneous edema overlying the spinous processes of L2, L3, L4 and L5. This did not enhance with intravenous contrast. Mild contrast enhancement of the central L3 superior endplate compression fracture containing Schmorl''s nodes suggesting recent fracture. There is also contrast enhancement in the anterior superior corner of the L4 vertebral body but there is a prominent hypertrophic spur associated with it. OPINION: 1. Recent central compression fracture which Schmorl''s node of the L3 superior endplate enhance with intravenous contrast. This does not appear pathologic fracture. This is most likely the source of patient''s back pain. 2. Bridging hypertrophic anterior marginal spurs at L3-L4 disc level with enhancing reactive edema in the anterior superior aspect of the L4 vertebral body. In my opinion, solitary lytic metastases is less likely. CT will help confirm. 3. No MRI evidence of lumbar extruded disc fragment or spinal stenosis. RECOMMENDATION: CT lumbar spine for further evaluation. Electronically Signed: Kuldip Reyes MD at 10:50 EDT , Service support , MRI/Spine Lumbar W/WO Contrast
[2020-05-07 13:10] LABS: CREATININE FINGERSTICK 1.3 mg/dL (0.70-1.30)
== END ==
PROVIDERS: PCP Family Medicine; Referring Provider Family Medicine; Visit Provider Family Medicine
DX: M54.5 Low back pain (principal); D49.511 Neoplasm of unspecified behavior of right kidney
CPT/HCPCS: 72158; A9575

== ENCOUNTER → 2020-05-24 | Outpatient (CLI) | payer MEDICARE, SELFPAY ==
[2020-05-24 09:03] VITALS: BMI 43.2
== END | disposition home or self-care (01) ==
PROVIDERS: PCP Family Medicine; Referring Provider Nurse Practitioner Family; Visit Provider Nurse Practitioner Family
DX: Z11.52 Encounter for screening for COVID-19 (principal)
CPT/HCPCS: 87635; U0002

== ENCOUNTER → 2020-05-26 13:49 | Outpatient (CLI) | payer MEDICARE, SELFPAY ==
[2020-05-24 09:03] VITALS: BMI 43.2
--- NOTE | 2020-05-26 13:51 | CT_ITS ---
STUDY: CT LUMBAR SPINE WITH CONTRAST REASON FOR EXAM: Male, 70 years old. SEVERE LOW BACK PAIN,ABD MRI -- RADIOLOGY RECOMMENDS CT TO RULE OUT LYTIC LESIONS RADIATION DOSAGE (If Supplied By Facility): CTDIvol = ( 47.11 ) mGy, DLP = ( 1368.99 ) mGycm TECHNIQUE: The patient was scanned in a multi detector CT scanner. High resolution transaxial imaging was performed following the intravenous administration of IV 100mL Isovue-300. Images were obtained from T12 to S1 vertebral level. Sagittal and coronal images were reconstructed. Individualized dose optimization techniques were used for this CT. COMPARISON: Comparison is made with prior MRI of the lumbar spine dated 05/07/2020. FINDINGS: Normal lumbar lordosis. There is no substantial scoliosis. Normal vertebrae of the lumbar spine. L1-2: Mild degree of disc space narrowing. Spondylosis. No significant stenosis seen. L2-3: Moderate degree of disc space narrowing and disc degeneration. Spondylosis. Schmorl''s node is seen in the superior endplate of the L3 vertebrae. Mild degree of diffuse posterior disc bulge. Hypertrophy of the ligamenta flava. Mild degree of central canal stenosis. L3-4: Mild degree of disc space narrowing. Spondylosis. Facet joint osteoarthritis and hypertrophy. Mild degree of diffuse posterior disc bulge as well as hypertrophy of the ligamenta flava causing a mild degree of bilateral neural foraminal and central canal stenosis. L4-5: Mild degree of disc space narrowing. Hypertrophy of the facet joints as well as the ligamenta flava with diffuse posterior disc bulge. This causes a moderate degree of central canal stenosis and mild degree of bilateral neural foraminal stenosis. L5-S1: Marked degree of disc space narrowing and disc degeneration. Spondylosis. No significant stenosis seen. Facet joint osteoarthritis. Atherosclerotic calcification of the abdominal aorta. CT/Spine Lumbar WITH Contrast IMPRESSION: Multilevel degenerative changes, as described above. Schmorl''s node deformity of the superior endplate of the L3 vertebrae. Electronically Signed: Rashid Doherty MD at 14:55 EDT , Service support ,
== END ==
PROVIDERS: PCP Family Medicine; Referring Provider Family Medicine; Visit Provider Family Medicine
DX: M54.5 Low back pain (principal)
CPT/HCPCS: 72132; Q9967

== ENCOUNTER → 2020-05-28 10:50 | Outpatient (CLI) | payer MEDICARE, SELFPAY ==
[2020-05-24 09:03] VITALS: BMI 43.2
--- NOTE | 2020-05-28 10:52 | RAD_ITS ---
INDICATION: COUGH EXAMINATION/TECHNIQUE: X-RAY - XR Chest 2 Views COMPARISON: 09/07/2019. FINDINGS: The lungs are clear. Tortuous and calcified thoracic aorta. The heart is not enlarged. No pleural effusion or pneumothorax. No acute osseous abnormalities. Degenerative changes of thoracic spine. RAD/Chest PA and Lateral IMPRESSION: No acute radiographic abnormalities. Electronically Signed: Clay Hanson MD at 17:28 EDT Tel , Service support ,
== END ==
PROVIDERS: PCP Family Medicine; Referring Provider Family Medicine; Visit Provider Family Medicine
DX: R05 Cough (principal)
CPT/HCPCS: 71046

== ENCOUNTER → 2020-08-22 12:21 | Outpatient (CLI) | payer MEDICARE, SELFPAY ==
[2020-07-02 14:57] VITALS: BMI 43.2
[2020-08-22 13:35] LABS: Absolute Lymphocyte Count 1.65 X10^3/uL (0.83-4.51); Absolute Neutrophil Count 2.6 X10^3/uL (2.0-7.7); Basophil# 0.05 X10^3/uL; Eosinophil# 0.02 X10^3/uL; Eosinophils% 0.4 % (0-5); Hematocrit 48.7 % (40-54); Hemoglobin 16.2 g/dL (13.0-16.5); Lymphocyte # 1.65 X10^3/ul (0.83-4.51); Lymphocyte % 33.1 % (19-41); Mean Corp Hgb Conc 33.3 g/dL (32-36); Mean Corpuscular Hgb 33.3 pg (27.0-32.0); Mean Corpuscular Volume 100.2 fL (80-94); Mean Platelet Vol. 10.3 fl (6.2-12.0); Monocyte# 0.65 X10^3/uL; NRBC Flagged by Analyzer 0 % (0-5); Neutrophil # 2.61 X10^3/uL (2.7-7.7); Neutrophil % 52.3 % (47-70); Platelet Count 191 K/mm3 (150-450); RBC Distribution Width CV 14.3 % (11.6-14.6); RBC Distribution Width SD 53.4 fl (35.1-43.9); Red Blood Count 4.86 M/mm3 (4.6-6.2)
[2020-08-22 13:39] LABS: Color, Urine Yellow (Yellow); Glucose, Dipstick Normal (Normal); Ketone-Dipstick Negative (Negative); Leukocyte Esterase-Dipstick Negative /ul (Negative); Nitrite-Dipstick Negative (Negative); Occult Blood-Urine 10 /ul (Negative); Protein-Dipstick Negative (Negative); Urine Bilirubin Dipstick Negative (Negative); Urine Clarity Clear (Clear); Urine Urobilinogen Normal (Normal)
[2020-08-22 14:13] LABS: Vitamin B12 469 pg/mL (211-911); Vitamin D,25 Hydroxy 86.6 ng/mL
[2020-08-22 14:19] LABS: ALB/GLOB Ratio 0.9 RATIO (0.9-2.4); AST(SGOT) 26 U/L (15-37); Alanine Aminotransfer ALT/SGPT 21 U/L (16-61); Albumin, Serum 3.5 g/dL (3.2-5.0); Alkaline Phosphatase 73 U/L (45-117); Anion Gap 4 (5-15); BUN 9 mg/dL (7-18); BUN/Creat Ratio 8.5 RATIO (10-20); Calcium,Total 8.7 mg/dL (8.5-10.1); Chloride 104 mmol/L (98-107); Creatinine, Serum 1.06 mg/dL (0.70-1.30); EST Glomerular Filtration Rate 73 mL/min (>60); Est Glom Filt Rate - Afr Amer 88 mL/min (>60); Globulin 3.8 g/dL (2.2-4.2); Glucose 87 mg/dL (74-106); Potassium 4.6 mmol/L (3.5-5.1); Protein, Total 7.3 g/dL (6.4-8.2); Sodium Level 138 mmol/L (136-145); Thyroid Stim Hormone (TSH) 3.35 uIU/mL (0.358-3.74)
== END ==
PROVIDERS: PCP Family Medicine; Referring Provider Family Medicine; Visit Provider Family Medicine
DX: R53.83 Other fatigue (principal); E55.9 Vitamin D deficiency, unspecified; E53.8 Deficiency of other specified B group vitamins; R35.0 Frequency of micturition
CPT/HCPCS: 36415; 80053; 81002; 82306; 82607; 84443; 85025

== ENCOUNTER → 2020-09-26 08:16 | Outpatient (CLI) | payer MEDICARE, SELFPAY ==
[2020-09-16 08:29] VITALS: BMI 43.2
--- NOTE | 2020-09-26 08:18 | CT_ITS ---
STUDY: CT ABDOMEN AND PELVIS WITH CONTRAST REASON FOR EXAM: Male, 70 years old. NEOPLASM OF UNCERTAIN BEHAVIOR OF R KIDNEY RADIATION DOSAGE (If Supplied By Facility): CTDIvol = ( 19.42 ) mGy, DLP = ( 2190.08 ) mGycm TECHNIQUE: Transaxial images were obtained from the dome of the diaphragm to the symphysis pubis without oral contrast. IV 100mL Isovue-370 was administered. Sagittal and coronal images were reconstructed. Individualized dose optimization techniques were used for this CT. COMPARISON: Comparison is made with prior examination 09/07/2019. FINDINGS: Stable minimal scarring at the lung bases slightly more prominent on the left side. Coronary artery calcification. There is decreased attenuation of the liver consistent with steatosis. There are multiple small gallstones. There are multiple benign calcified granulomata of the spleen. Normal pancreas. Normal bilateral adrenal glands. Stable 9 mm exophytic nodular density along the lateral midpole region of the right kidney. 6.1 mm x 1 mm calculus in the lower pole calyx of the left kidney. There is evidence of a left retroaortic renal vein. Normal visualized stomach. Normal small intestine. There are multiple colonic diverticula consistent with diverticulosis. The appendix is visualized and appears normal. There is scattered atherosclerotic calcification of the abdominal aorta, without a demonstrated aneurysm. Normal inferior vena cava. Normal retroperitoneum. Stable mild degree of increased markings in the root of the mesentery. This is nonspecific. Normal urinary bladder. There is a left-sided inguinal hernia containing adipose tissue. There are diffuse degenerative changes of the visualized lumbar spine. CT/Abdomen/Pelvis WITH Contrast IMPRESSION: Stable 9 mm exophytic nodular density along the lateral midpole region of the right kidney. Multiple small gallstones. Nonobstructive catheters in the lower pole calyx of the left kidney. Electronically Signed: Rashid Doherty MD at 12:52 EDT , Service support ,
[2020-09-26 08:26] LABS: CREATININE FINGERSTICK 0.9 mg/dL (0.70-1.30); EGFR FINGERSTICK > 60.0000 mL/min (>60)
== END ==
PROVIDERS: PCP Family Medicine; Referring Provider Urology; Visit Provider Urology
DX: D41.01 Neoplasm of uncertain behavior of right kidney (principal)
CPT/HCPCS: 74177; Q9967

== ENCOUNTER → 2020-11-18 | Outpatient (CLI) | payer MEDICARE, SELFPAY | END | disposition home or self-care (01) | PROVIDERS: PCP Family Medicine; Referring Provider Physician Assistant; Visit Provider Physician Assistant | DX: R09.81 Nasal congestion (principal) | CPT/HCPCS: 87635; U0005; U0003 ==

== ENCOUNTER 2020-12-18 19:38 | Emergency (ER) | payer MEDICARE, SELFPAY ==
[2020-12-18 19:38] VITALS: BP 193/107; PULSE 76; RESP 16; TEMP 36.6; O2SAT 98; BMI 38.7
--- NOTE | 2020-12-18 20:10 | CT_ITS ---
STUDY: CT CHEST WITHOUT CONTRAST REASON FOR EXAM: Male, 70 years old. fal. right rib trauma RADIATION DOSAGE (If Supplied By Facility): CTDIvol = ( 20.15 ) mGy, DLP = ( 760.27 ) mGycm TECHNIQUE: Transaxial imaging was performed without the administration of intravenous contrast material. Individualized dose optimization techniques were used for this CT. COMPARISON: None. FINDINGS: There is minor interstitial thickening or subsegmental atelectasis in both lung bases lungs are otherwise clear.. Tiny calcified granuloma in right upper lobe There is no demonstrated pleural abnormality. Heart size is normal. There is coronary artery calcification. Tiny calcified right hilar and mediastinal nodes. Normal unenhanced pulmonary arteries. Atherosclerotic changes of the aorta without evidence for aneurysm. Dorsal spine demonstrates arthritic changes Mildly displaced fractures of the right lateral fifth sixth seventh and eighth ribs Poorly calcified gallstones or sludge noted within the gallbladder.. CT/Chest without Contrast IMPRESSION: Minor chronic interstitial changes or subsegmental atelectasis at the lung bases. Mildly displaced fractures of the axillary aspect of the right through eighth ribs without pneumothorax Old granulomatous disease on the right Electronically Signed: Hayder Mike MD at 20:55 EST , Service support ,
--- NOTE | 2020-12-18 20:11 | ED.VIS.FALL ---
HPI HPI - Fall History of Present Illness Chief Complaint: Fall Informant: patient and spouse/S.O. Occured/Mechanism Occurred: Today Mechanism/Context: Yes same level fall Usually ambulates: Without assistance Pain/Injury Pain Location: chest Quality of Pain: Sharp Current Severity: Severe Maximum Severity: Severe Associated Symptoms Associated Symptoms: Negative for Parasthesias, Weakness, Loss of function, Inability to ambulate, Loss of consciousness and Amnesia Narrative Narrative: 70-year-old male tripped and fell landing on his right rib cage hitting a couch. This occurred about 1 to 2 hours ago. He denies other injuries. He is concerned he has broken ribs on his right side. He is complaining of pain. No LOC. No head injury. No neck pain. He is on no blood thinners. Prior similar symptoms: Yes Recent Illness/Hospitalization: No PFSH PFS Medical History (Updated 12/18/20 @ 22:[address] Vick Ruiz MD) Chest wall contusion (~12/18/20) Encounter for screening for COVID-19 HTN (hypertension) Hyperthyroidism SOB (shortness of breath) Home Medications lisinopril 20 mg PO BID 03/16/18 [History Last Taken 03/07/19] lorazepam 0.5 mg PO TID 03/16/18 [History Last Taken 03/07/19] pantoprazole 40 mg PO BID 09/07/19 [History Last Taken Unknown] albuterol sulfate 90 mcg/actuation aerosol inhaler 1 - 2 puff INHALATION Q6H PRN #8.5 gm 05/24/20 [Rx Last Taken Unknown] azithromycin 250 mg tablet See Rx Instructions PO .COMPLEX #6 tablet 05/24/20 [Rx Last Taken Unknown] cholecalciferol (vitamin D3) 1,250 mcg (50,000 unit) capsule 1,250 mcg PO cap 05/24/20 [History Last Taken Unknown] prednisone 10 mg tablet See Rx Instructions PO QDAY #30 tablet 05/24/20 [Rx Last Taken Unknown] dexamethasone 4 mg tablet 4 mg PO DAILY #5 tab 11/18/20 [Rx Last Taken Unknown] hydrocodone-acetaminophen 1 tab PO Q4H PRN 7 Days #30 tab 12/18/20 [Rx Last Taken Unknown] Allergy/AdvReac Type Severity Reaction Status Date / Time albuterol Allergy Itching Verified 12/18/20 19:40 amoxicillin Allergy doesnt Verified 12/18/20 19:40 rememeber fluoxetine [From Prozac] AdvReac Other Verified 12/18/20 19:40 Family History Mother Myocardial infarction Father Cancer Surgical History History of eye surgery Social History Smoking Status: Former smoker alcohol intake: current Alcohol type: hard liquor ROS ROS ED ROS Narrative Patient denies recent illness. Review of Systems ROS Unobtainable: Denies due to encephalopathy Constitutional Constitutional ED: Denies fever(s) or subjective Eyes Eyes: Denies blurry vision or change in vision ENT ENT ED: Denies ear pain or sore throat Cardiovascular Cardiovascular: Reports chest pain; Denies palpitations or racing heartbeat Respiratory/Chest Respiratory/Chest: Denies cough or dyspnea Gastrointestinal Gastrointestinal: Denies abdominal pain, diarrhea, nausea or vomiting Genitourinary Genitourinary ED: Denies dysuria Musculoskeletal Musculoskeletal: Denies myalgias Integumentary Denies rash Neurologic Neurologic: Denies headache(s) Psychiatric Psychiatric: Denies depression Endocrine Endocrinology: Denies polyuria Hematologic/Lymphatic Hematologic/Lymphatic: Denies easy bruising Allergic/Immunologic Allergic/Immunologic ED: Denies urticaria EXAM Physical Exam Narrative Exam Narrative: Or male vital signs stable afebrile pulse ox 90% on room air no signs hypoxia. H EENT exam unremarkable atraumatic. Neck nontender. Trachea midline. Lungs clear to auscultation but diminished bilaterally because able to take a deep breath due to pain. He has exquisite tenderness along his right lateral chest wall. I do not feel any obvious subcu air. Left rib cage is nontender. Heart regular rhythm no murmur rate about 75. Abdomen soft nontender normal bowel sounds no peritoneal signs. Obese. Pelvic girdle intact. Abrasion right knee. He is able to do flexion-extension of both hips knees and ankles. Dorsi plantarflexion intact. No tenderness or deformity either lower extremity. 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 Neurologically is awake and alert with no focal motor deficits. GCS of 15. Const Vital Signs: 12/18/20 19:38 12/18/20 20:48 12/18/20 21:21 Temperature 97.8 F Temperature Source Temporal Pulse Rate 76 Respiratory Rate 16 16 Respiratory Effort Normal Non-Labored Blood Pressure 193/107 H 155/84 H Blood Pressure Mean 135 107 Pulse Ox 98 94 Oxygen Delivery Method Room Air Room Air Room Air 12/18/20 22:33 Temperature Temperature Source Pulse Rate 72 Respiratory Rate 18 Respiratory Effort Blood Pressure 154/71 H Blood Pressure Mean 98 Pulse Ox 94 Oxygen Delivery Method Room Air Positive well nourished, well developed and obese; Negative for cachectic, contractures or unkempt General Appearance ED: well developed; Negative for unkempt, cachectic, contractures or NAD Nutritional Appearance: obese; Negative for cachectic HEENT Reports normocephalic atraumatic; Negative for trauma or tenderness Eyes PERRL Neck full ROM, no lymphadenopathy and supple General: Negative for tenderness Chest Wall inspection of chest normal; Negative for palpation of chest normal Chest Narrative: Exquisite tenderness right lateral rib cage. No crepitance or subcu air appreciated. Resp normal respiratory effort, no retractions and clear to auscultation bilaterally Resp Narrative: Limited each breathing due to pain from his rib cage. Auscultation: Negative for rales, rhonchi or wheezes Cardio regular rate, regular rhythm, S1 normal heart sound, S2 normal heart sound and no murmurs GI non-tender, non-distended and no masses Inspection: Negative for abdominal distention Auscultation: normoactive bowel sounds Palpation: soft; Negative for guarding or rebound tenderness present Back/Spine no CVA tenderness Cervical Spine: Negative for cervical spine tenderness Thoracic Spine / Upper Back: Negative for thoracic spinal tenderness Lumbar Spine / Lower Back: Negative for lumbar spinal tenderness Extremity normal to inspection, full ROM and no calf tenderness Extremity Narrative: Abrasion right knee. No bony tenderness. Normal range of motion both upper and lower extremities. Trace edema bilaterally to both ankles. Neuro oriented x3, moves all extremities and no focal motor deficits Verdon Coma Scale: document GCS findings Spontaneous Obeys Commands Oriented 15 Sensorium / Orientation: alert, oriented to person, oriented to place and oriented to time; Negative for orientation impaired, confused, lethargic or stuporous Motor Exam: strength 5/5 throughout Psych mental status grossly normal and thought process normal Appearance: Negative for unkempt Attitude: No agitated Mood & Affect: Negative for depressed or tearful Skin Lesions: no lesions Rashes: no rashes Trauma: abrasion MDM MDM MDM Narrative Medical decision making narrative: 70-year-old male fell into the callus complained exquisite right sided rib cage pain. Concern is for fractured ribs. Due to his age and obtain a CT of his chest. To be treated with morphine and Zofran for pain. Repeat exam patient is resting in bed. His at bedside. We discussed options. He did not want to be admitted. He will be given another dose of morphine IV and discharged home with [place] pain medication. We discussed pain medications and complications those. Also the rib fractures seen on his CAT scan and outpatient follow-up. Radiography Diagnostic Testing: Clinical Impression(s) from Imaging Studies Chest CT 12/18/20 20:10 IMPRESSION: Minor chronic interstitial changes or subsegmental atelectasis at the lung bases. Mildly displaced fractures of the axillary aspect of the right through eighth ribs without pneumothorax Old granulomatous disease on the right Electronically Signed: Hayder Mike MD at 20:55 EST , Service support , CT of the chest is read by the radiologist and reviewed by me shows 4 rib fractures on the right ribs #5, 6, 7 and 8. Discussed with patient. Discharge Plan Triage Chief Complaint: Fall ED Provider: Vick Ruiz Dx/Rx/DC Orders Clinical Impression: Fall, Multiple rib fractures Instructions: ED Rib Fracture Prescriptions: New hydrocodone-acetaminophen 5-325 mg tablet 1 tab PO Q4H PRN (Reason: pain) 7 Days Qty: 30 RF: 0 No Action cholecalciferol (vitamin D3) 1,250 mcg (50,000 unit) capsule 1,250 mcg PO RF: 0 azithromycin 250 mg tablet See Rx Instructions PO .COMPLEX Qty: 6 RF: 0 prednisone 10 mg tablet See Rx Instructions PO QDAY Qty: 30 RF: 0 albuterol sulfate [ProAir HFA] 90 mcg/actuation HFA aerosol inhaler 1 - 2 puff INHALATION Q6H PRN (Reason: shortness of breath or wheezing) Qty: 8.5 RF: 1 dexamethasone [Decadron] 4 mg tablet 4 mg PO DAILY Qty: 5 RF: 0 lisinopril 20 MG tablet 20 mg PO BID RF: 0 lorazepam 0.5 MG tablet 0.5 mg PO TID RF: 0 pantoprazole 40 MG tablet 40 mg PO BID RF: 0 Primary Care Provider: Alfred Bailey Referrals: Alfred Bailey DO [Primary Care Provider] - Activity Restrictions/Additional Instructions: Use a pillow to brace your ribs on the right. Ice. [place] for pain. Make sure you are using a stool softener. Return to the emergency department if you are feeling a lot worse or having worse trouble breathing. This will take weeks to heal. Disposition Disposition: Home, Self Care
[2020-12-18] MEDS: Ondansetron 4 MG/2 ML Vial IV (20:43)
[2020-12-18] MEDS: morphine 8 MG/ML Syringe IV ×2 (20:43→23:00)
[2020-12-18 21:21] VITALS: BP 155/84; RESP 16; O2SAT 94
[2020-12-18 22:33] VITALS: BP 154/71; PULSE 72; RESP 18; O2SAT 94
[2020-12-18 23:22] VITALS: BP 131/90; PULSE 84; RESP 16; O2SAT 96
== END 2020-12-18 23:35 | disposition home or self-care (01) ==
PROVIDERS: Emergency Provider Emergency Medicine; PCP Family Medicine
DX: S22.41XA Multiple fractures of ribs, right side, initial encounter for closed fracture (principal); S80.211A Abrasion, right knee, initial encounter; W01.190A Fall on same level from slipping, tripping and stumbling with subsequent striking against furniture, initial encounter; Y93.9 Activity, unspecified; Y92.9 Unspecified place or not applicable; I10 Essential (primary) hypertension; E05.90 Thyrotoxicosis, unspecified without thyrotoxic crisis or storm; Z79.899 Other long term (current) drug therapy; Z87.891 Personal history of nicotine dependence
CPT/HCPCS: 71250; 96374; 96375; 96376; 99282; J7040; A4216; J2405

== ENCOUNTER → 2021-06-17 | Outpatient (CLI) | payer MEDICARE, SELFPAY ==
[2021-06-17 15:16] LABS: Absolute Lymphocyte Count 2.04 X10^3/uL (0.83-4.51); Basophil# 0.04 X10^3/uL; Basophil% 0.7 % (0-1); Eosinophil# 0.12 X10^3/uL; Hematocrit 45.5 % (40-54); Hemoglobin 14.9 g/dL (13.0-16.5); Lymphocyte # 2.04 X10^3/ul (0.83-4.51); Lymphocyte % 33.4 % (19-41); Mean Corp Hgb Conc 32.7 g/dL (32-36); Mean Corpuscular Hgb 32.8 pg (27.0-32.0); Mean Corpuscular Volume 100.2 fL (80-94); Monocyte# 0.89 X10^3/uL; Monocyte% 14.6 % (0-10); NRBC Flagged by Analyzer 0 % (0-5); Neutrophil # 3.01 X10^3/uL (2.7-7.7); Neutrophil % 49.1 % (47-70); Platelet Count 265 K/mm3 (150-450); RBC Distribution Width CV 15.6 % (11.6-14.6); RBC Distribution Width SD 58.3 fl (35.1-43.9); Red Blood Count 4.54 M/mm3 (4.6-6.2); White Blood Count 6.1 K/mm3 (4.4-11.0)
[2021-06-17 16:10] LABS: Vitamin B12 1132 pg/mL (211-911); Vitamin D,25 Hydroxy 48.4 ng/mL
[2021-06-17 16:15] LABS: ALB/GLOB Ratio 0.7 RATIO (0.9-2.4); AST(SGOT) 24 U/L (15-37); Alanine Aminotransfer ALT/SGPT 18 U/L (16-61); Albumin, Serum 3.1 g/dL (3.2-5.0); Alkaline Phosphatase 57 U/L (45-117); Anion Gap 5 (5-15); BUN 16 mg/dL (7-18); BUN/Creat Ratio 15.4 RATIO (10-20); Calcium,Total 8.9 mg/dL (8.5-10.1); Chloride 104 mmol/L (98-107); Cholesterol 184 mg/dL (200); Creatinine, Serum 1.04 mg/dL (0.70-1.30); EST Glomerular Filtration Rate 74 mL/min (>60); Est Glom Filt Rate - Afr Amer 90 mL/min (>60); Globulin 4.2 g/dL (2.2-4.2); Glucose 123 mg/dL (74-106); High Density Lipoprotein 45 mg/dL; PSA,Total - Annual Screen 0.68 ng/mL (0.00-4.00); Potassium 4.1 mmol/L (3.5-5.1); Protein, Total 7.3 g/dL (6.4-8.2); Sodium Level 138 mmol/L (136-145); Triglycerides 164 mg/dL; Very Low Density Lipoprotein 33 mg/dL (5-40)
[2021-06-18 13:52] LABS: Hemoglobin A1c 5.1 % (3.8-5.6)
== END | disposition home or self-care (01) ==
LOC: LAB 14:44
PROVIDERS: PCP Family Medicine; Visit Provider Family Medicine
DX: R73.01 Impaired fasting glucose (principal); I10 Essential (primary) hypertension; E53.8 Deficiency of other specified B group vitamins; E55.9 Vitamin D deficiency, unspecified; Z12.5 Encounter for screening for malignant neoplasm of prostate
CPT/HCPCS: 36415; 80053; 80061; 82306; 82607; 83036; 84153; 85025; G0103

== ENCOUNTER → 2021-09-10 | Outpatient (CLI) | payer MEDICARE, SELFPAY ==
[2021-09-10 12:20] LABS: Absolute Lymphocyte Count 2.04 X10^3/uL (0.83-4.51); Absolute Neutrophil Count 8.2 X10^3/uL (2.0-7.7); Basophil# 0.05 X10^3/uL; Basophil% 0.4 % (0-1); Eosinophil# 0.06 X10^3/uL; Eosinophils% 0.5 % (0-5); Hematocrit 48.6 % (40-54); Hemoglobin 16.6 g/dL (13.0-16.5); Lymphocyte # 2.04 X10^3/ul (0.83-4.51); Lymphocyte % 17.2 % (19-41); Mean Corp Hgb Conc 34.2 g/dL (32-36); Mean Corpuscular Hgb 33.7 pg (27.0-32.0); Mean Corpuscular Volume 98.8 fL (80-94); Mean Platelet Vol. 9.9 fl (6.2-12.0); Monocyte# 1.46 X10^3/uL; Monocyte% 12.3 % (0-10); NRBC Flagged by Analyzer 0 % (0-5); Neutrophil # 8.17 X10^3/uL (2.7-7.7); Neutrophil % 68.8 % (47-70); Platelet Count 282 K/mm3 (150-450); RBC Distribution Width CV 13.2 % (11.6-14.6); RBC Distribution Width SD 48.1 fl (35.1-43.9); Red Blood Count 4.92 M/mm3 (4.6-6.2); White Blood Count 11.9 K/mm3 (4.4-11.0)
[2021-09-10 12:23] LABS: International Normalized Ratio 0.9; Prothrombin Time (Protime)PT. 12.1 SECONDS (11.7-14.9)
== END | disposition home or self-care (01) ==
LOC: LAB 11:37
PROVIDERS: PCP Family Medicine; Referring Provider Family Medicine; Visit Provider Family Medicine
DX: R58 Hemorrhage, not elsewhere classified (principal)
CPT/HCPCS: 36415; 85025; 85610

== ENCOUNTER → 2021-10-08 | Outpatient (CLI) | payer MEDICARE, SELFPAY ==
--- NOTE | 2021-10-08 12:59 | RAD_ITS ---
STUDY: X-RAY - CERVICAL SPINE REASON FOR EXAM: Male, 71 years old. NECK PAIN TECHNIQUE: XR Spine Cervical 4 or 5 Views COMPARISON: 11.03.16 FINDINGS: Normal anterior atlantoaxial articulation. The odontoid process is obscured by the overlying hard palate on the open mouth view. Therefore, it is not fully evaluated by plain film. There is straightening of the normal cervical lordosis. There is multi-level endplate spondylosis. There is multi-level degenerative disc disease with multilevel disc space narrowing. There is multi-level osseous foraminal stenosis. The soft tissue structures are unremarkable. RAD/Cerv Spine 4 or 5 Views IMPRESSION: There are degenerative changes as noted above. The odontoid process is obscured by the overlying hard palate on the open mouth view. Therefore, it is not fully evaluated by plain film. Electronically Signed: Milton Inman MD at 14:57 EDT ,
== END | disposition home or self-care (01) ==
LOC: MTRAD 12:58
PROVIDERS: PCP Family Medicine; Referring Provider Family Medicine; Visit Provider Family Medicine
DX: M54.2 Cervicalgia (principal)
CPT/HCPCS: 72050

== ENCOUNTER → 2021-11-17 | Outpatient (CLI) | payer MEDICARE, SELFPAY ==
[2021-11-17 18:20] LABS: Vitamin B12 434 pg/mL (211-911)
[2021-11-17 18:21] LABS: Absolute Lymphocyte Count 1.44 X10^3/uL (0.83-4.51); Absolute Neutrophil Count 2.1 X10^3/uL (2.0-7.7); Basophil# 0.04 X10^3/uL; Basophil% 0.8 % (0-1); Eosinophil# 0.06 X10^3/uL; Eosinophils% 1.3 % (0-5); Hematocrit 46.8 % (40-54); Hemoglobin 15.4 g/dL (13.0-16.5); Lymphocyte # 1.44 X10^3/ul (0.83-4.51); Lymphocyte % 30.2 % (19-41); Mean Corp Hgb Conc 32.9 g/dL (32-36); Mean Corpuscular Hgb 33.3 pg (27.0-32.0); Mean Corpuscular Volume 101.3 fL (80-94); Mean Platelet Vol. 11.3 fl (6.2-12.0); Monocyte# 1.09 X10^3/uL; Monocyte% 22.9 % (0-10); NRBC Flagged by Analyzer 0 % (0-5); Neutrophil # 2.12 X10^3/uL (2.7-7.7); Neutrophil % 44.4 % (47-70); Platelet Count 230 K/mm3 (150-450); RBC Distribution Width CV 13.3 % (11.6-14.6); RBC Distribution Width SD 49.8 fl (35.1-43.9); Red Blood Count 4.62 M/mm3 (4.6-6.2); White Blood Count 4.8 K/mm3 (4.4-11.0)
[2021-11-17 18:23] LABS: Erythrocyte Sedimentation Rate 11 mm/hr (0-20)
[2021-11-17 18:36] LABS: ALB/GLOB Ratio 0.9 RATIO (0.9-2.4); AST(SGOT) 29 U/L (15-37); Alanine Aminotransfer ALT/SGPT 28 U/L (16-61); Albumin, Serum 3.3 g/dL (3.2-5.0); Alkaline Phosphatase 50 U/L (45-117); Anion Gap 6 (5-15); BUN 13 mg/dL (7-18); BUN/Creat Ratio 13.5 RATIO (10-20); Calcium,Total 9.1 mg/dL (8.5-10.1); Chloride 106 mmol/L (98-107); Creatinine, Serum 0.96 mg/dL (0.70-1.30); EST Glomerular Filtration Rate 81 mL/min (>60); Est Glom Filt Rate - Afr Amer 98 mL/min (>60); Globulin 3.8 g/dL (2.2-4.2); Glucose 69 mg/dL (74-106); Lipase 209 U/L (73-393); Potassium 3.9 mmol/L (3.5-5.1); Protein, Total 7.1 g/dL (6.4-8.2); Sodium Level 140 mmol/L (136-145)
[2021-11-20 14:37] LABS: Vitamin D,25 Hydroxy 42.8 ng/mL
== END | disposition home or self-care (01) ==
LOC: BFHLAB 14:08
PROVIDERS: PCP Family Medicine; Visit Provider Family Medicine
DX: I10 Essential (primary) hypertension (principal); R53.83 Other fatigue; E53.8 Deficiency of other specified B group vitamins; E55.9 Vitamin D deficiency, unspecified; R53.1 Weakness; R10.9 Unspecified abdominal pain
CPT/HCPCS: 36415; 80053; 82306; 82607; 83690; 84443; 85025; 85652

== ENCOUNTER → 2021-11-18 | Outpatient (CLI) | payer MEDICARE, SELFPAY ==
--- NOTE | 2021-11-18 10:43 | RAD_ITS ---
STUDY: X-RAY - ABDOMEN/PELVIS REASON FOR EXAM: Male, 71 years old. UPPER ABD DISCOMFORT TECHNIQUE: 3 views COMPARISON: None. FINDINGS: Normal visualized lung bases. Moderate stool ascending, transverse and descending colon. Remainder bowel gas pattern normal. There is no demonstrated free abdominal air. Multiple calcified splenic granulomas. Normal soft tissue structures. Moderate bilateral hip osteoarthritis. RAD/Abdomen Single View IMPRESSION: Fecal stasis. Multiple calcified splenic granulomas. Moderate bilateral hip osteoarthritis. Electronically Signed: Alfred Estrada MD, GEOVANNI at 11:07 EDT ,
== END | disposition home or self-care (01) ==
LOC: MTRAD 10:41
PROVIDERS: PCP Family Medicine; Referring Provider Family Medicine; Visit Provider Family Medicine
DX: R10.9 Unspecified abdominal pain (principal)
CPT/HCPCS: 74018

== ENCOUNTER → 2022-08-31 | Outpatient (CLI) | payer MEDICARE, SELFPAY ==
[2022-08-31 18:50] LABS: ALB/GLOB Ratio 0.9 RATIO (0.9-2.4); AST(SGOT) 39 U/L (15-37); Alanine Aminotransfer ALT/SGPT 32 U/L (16-61); Albumin, Serum 3.4 g/dL (3.2-5.0); Alkaline Phosphatase 61 U/L (45-117); Anion Gap 3 (5-15); BUN 9 mg/dL (7-18); BUN/Creat Ratio 9.6 RATIO (10-20); Calcium,Total 8.9 mg/dL (8.5-10.1); Chloride 107 mmol/L (98-107); Creatinine, Serum 0.93 mg/dL (0.70-1.30); EST Glomerular Filtration Rate 84 mL/min (>60); Est Glom Filt Rate - Afr Amer 102 mL/min (>60); Globulin 3.7 g/dL (2.2-4.2); Glucose 98 mg/dL (74-106); Lipase 55 U/L (13-75); PSA,Total - Annual Screen 1.22 ng/mL (0.00-4.00); Potassium 4.4 mmol/L (3.5-5.1); Protein, Total 7.1 g/dL (6.4-8.2); Sodium Level 140 mmol/L (136-145)
== END | disposition home or self-care (01) ==
LOC: BFHLAB 14:12
PROVIDERS: PCP Family Medicine; Referring Provider Family Medicine; Visit Provider Family Medicine
DX: I10 Essential (primary) hypertension (principal); R10.9 Unspecified abdominal pain; Z12.5 Encounter for screening for malignant neoplasm of prostate
CPT/HCPCS: 36415; 80053; 83690; 84153; G0103

== ENCOUNTER → 2022-10-20 | Outpatient (CLI) | payer MEDICARE, SELFPAY ==
--- NOTE | 2022-10-20 16:04 | VDLE_ITS ---
Reason For Study: RLE Pain RIGHT LEFT GSV is normal. CFV is compressible, spontaneous, phasic, CFV is compressible, spontaneous, phasic, competent, and demonstrates normal competent and demonstrates normal augmentation. augmentation. FV is compressible, spontaneous, phasic, competent and demonstrates normal augmentation. POP V is compressible, spontaneous, phasic, competent and demonstrates normal augmentation. T/P Trunk is compressible. PTV is compressible. RT PerV is compressible. A non vascularized heterogenous area measuring approximately 10.87cm x 1.91cm is noted in the Rt medial gastrocnemius muscle. Procedure This is a venous duplex using B-mode, color flow and spectral Doppler. Exam performed in department. The exam was diagnostic. A preliminary report was called and/or faxed to [facility]. VL/Venous Duplex US, Unilateral Interpretation Summary Deep veins of the right lower extremity are patent and compressible segmentally . There is no evidence of right lower extremity deep vein thrombosis. The right great sapheno us vein appears patent and compressible segmentally. A non vascularized heterogenous area measuring approximately 10.87cm x 1.91cm i s noted in the right medial gastrocnemius muscle. Ordering Physician: Alfred Bailey Referring Physician: Alfred Bailey Performed By: Taqueria Rodgers, RVT
== END | disposition home or self-care (01) ==
LOC: CVS 15:59
PROVIDERS: PCP Family Medicine; Referring Provider Family Medicine; Visit Provider Family Medicine
DX: M79.661 Pain in right lower leg (principal); R60.0 Localized edema
CPT/HCPCS: 93971

== ENCOUNTER → 2023-01-21 | Outpatient (CLI) | payer MEDICARE, SELFPAY ==
--- NOTE | 2023-01-21 06:46 | CT_ITS ---
STUDY: CT ABDOMEN AND PELVIS WITH CONTRAST REASON FOR EXAM: Male, 72 years old. Reevaluate right kidney mass, history of hypertension. RADIATION DOSAGE (If Supplied By Facility): CTDIvol = ( 17.05 ) mGy, DLP = ( 1331.29 ) mGycm TECHNIQUE: IV 100mL Isovue-300 was administered. Transaxial images were obtained from the dome of the diaphragm to the symphysis pubis in the arterial, nephrographic and excretory phases. Multiplanar coronal and sagittal images were reformatted. Individualized Dose Optimization Techniques Were Used For This CT. COMPARISON: Prior study dated: 09/26/2020. FINDINGS: Atelectatic changes in both lower lobes. The visualized portions of the heart are within normal limits. Coronary calcifications. Hepatic steatosis. Sludge and/or gallstones are seen in the gallbladder. There are multiple benign calcified granulomata of the spleen. Normal pancreas. Normal bilateral adrenal glands. Exophytic mass in the lateral aspect of the right kidney increased in size since previous exam now measuring about 2.3 cm. 1.5 cm stone in the left renal pelvis. Mild left hydronephrosis. Normal visualized stomach. Normal in caliber small bowel loops. No evidence of acute diverticulitis. There is non-visualization of the appendix. There is diffuse atherosclerotic calcification of the abdominal aorta, without a demonstrated aneurysm. No retroperitoneal adenopathy. Circumferential thickening of the bladder wall likely due to underdistention. There is a small left-sided inguinal hernia containing adipose tissue. There are diffuse degenerative changes of the visualized lumbar spine. CT/Abdomen/Pelvis W IV Cont ONLY IMPRESSION: 1. Exophytic right renal mass increased in size since the previous examination. Correlation with PET scan is recommended. 2. Mild left hydronephrosis due to 1.5 cm stone in the left renal pelvis. 3. Gallstones and/or sludge in the gallbladder. 4. Hepatic steatosis. Electronically Signed: Domingo Angulo MD at 12:15 EST ,
[2023-01-21 07:10] LABS: CREATININE FINGERSTICK < 1.0 mg/dL (0.70-1.30); EGFR FINGERSTICK > 60.0000 mL/min (>60)
== END | disposition home or self-care (01) ==
LOC: CT 06:45
PROVIDERS: PCP Family Medicine; Referring Provider Family Medicine; Visit Provider Family Medicine
DX: N28.89 Other specified disorders of kidney and ureter (principal)
CPT/HCPCS: 74177; Q9967

== ENCOUNTER → 2023-02-14 | Outpatient (CLI) | payer MEDICARE, SELFPAY ==
--- NOTE | 2023-02-14 11:46 | RAD_ITS ---
INDICATION: right ankle injury EXAMINATION/TECHNIQUE: X-RAY - RIGHT XR Ankle Min 3 Views 3 VIEWS COMPARISON: No relevant prior comparison study available FINDINGS: SOFT TISSUES: Soft tissue swelling of the lateral aspect of the ankle. No radiopaque foreign body. BONES/JOINTS: No acute fracture or subluxation.. Normal alignment. Preservation of the joint space.. Posterior and plantar calcaneal spurs. RAD/Ankle min 3 Views IMPRESSION: Soft tissues swelling. No evidence for acute fracture. Electronically Signed: Domingo Angulo MD at 12:02 EST ,
--- OUTSIDE RECORDS SUMMARY | 2023-02-14 12:15 | XMS RPT_ITS | CCD ---
Author Name Unknown Address [address] [place] [address] Organization [facility] Results Test Name Value Interpretation Reference Range Facil ity Summary Purpose Family History No Family History Records Found Advance Directives No Advanced Directives Records Found Procedure Findings Note Operative Note (Enc) (GENSWS ) Progress Notes: Ki Galaviz MD 04/01/2018 9:54 AM Signed OPERATIVE NOTATION FOR [facility] SURGICAL PROCEDURE. March 17, 2018 Brian Imelda 1950 [id number] male PROCEDURE: EGD WITH BIOPSY - [id number] SURGEON: Baljit Galaviz M.D. FACS [employer] MACHINE OPERATOR: None DEPT: WEli PROVIDER: [id number] Galaviz MD POS: [id number] DIAGNOSIS: (K92.0) Hematemesis, presence of nausea not specified (primary encounter diagnosis) ASA CLASS: 3 - Severe FINDINGS: duodenal ulcer COMPLICATIONS: None PMHx - PAST MEDICAL HISTORY Diagnosis Date - Abdominal pain, unspecified site - Essential hypertension, benign - Other and unspecified hyperlipidemia - PMH - PAST MEDICAL HISTORY OF back pain/muscle - Unspecified hypothyroidism COMORBIDITIES - HTN Post Op Occurrences - None Wound Classification - Clean Contaminated Operative note dictated in the [facility] dictation sys (more content not included)... Additional Source Comments (unrecognized sect ion and content) No Status Records Found INFORMATION SOURCE (unrecogn ized section and content) FOR RECORDS PERTAINING TO PATIENTS WHO ARE OR HAVE BEEN ENROLLED IN A CHEMICAL DEPENDENCY/SUBSTANCEABUSE PROGRAM, SOME INFORMATION MAY BE OMITTED. This clinical summary was aggregated from multiple sources. Caution should be exercised in using it in the provision of clinical care. This summary normalizes information from multiple sources, and as a consequence, information in this document may materially change the coding, format and clinical context of patient data. In addition, data may be omitted in some cases. CLINICAL DECISIONS SHOULD BE BASED ON THE PRIMARY CLINICAL RECORDS. [facility] [employer] [facility]. provides no warranty or guarantee of the accuracy or completeness of information in this document.
== END | disposition home or self-care (01) ==
PROVIDERS: PCP Family Medicine; Referring Provider Family Medicine; Visit Provider Family Medicine
DX: S99.911A Unspecified injury of right ankle, initial encounter (principal)
CPT/HCPCS: 73610

== ENCOUNTER → 2023-03-08 | Outpatient (CLI) | payer MEDICARE, SELFPAY ==
--- OUTSIDE RECORDS SUMMARY | 2023-03-08 09:14 | XMS RPT_ITS | CCD ---
Author Name Unknown Address [address] [place] [address] Organization [facility] Results Test Name Value Interpretation Reference Range Facil ity Summary Purpose Family History No Family History Records Found Advance Directives No Advanced Directives Records Found Procedure Findings Note Operative Note (Enc) (GENSWS ) Progress Notes: Ki Galaviz MD 04/01/2018 9:54 AM Signed OPERATIVE NOTATION FOR [facility] SURGICAL PROCEDURE. March 17, 2018 Brian Imelda 1950 [id number] male PROCEDURE: EGD WITH BIOPSY - [id number] SURGEON: Baljit Galaviz M.D. FACS COREMAKER MACHINE: None DEPT: WEli PROVIDER: [id number] Galaviz MD POS: [id number] DIAGNOSIS: (K92.0) Hematemesis, presence of nausea not [...] Clean Contaminated Operative note dictated in the [facility] dictation sys (more content not included)... Additional [...] BE BASED ON THE PRIMARY CLINICAL RECORDS. [facility] [employer] [facility]. provides no warranty or guarantee of the accuracy or completeness of information in this document.
--- NOTE | 2023-03-08 11:00 | PET_ITS ---
EXAMINATION: FDG PET-CT INDICATIONS: A 72-year-old male with history of primary renal cell carcinoma presenting for initial staging examination. COMPARISON EXAMINATION: None available INDEX LESION SIZE SUV INTERPRETATION Right kidney, exophytic mass 26.1-mm 2.9 (max) Quantitative criteria for viable neoplasm are fulfilled TECHNIQUE: Following the intravenous administration of 15.41 mCi of F-18 deoxyglucose via the right hand, multiplanar image acquisitions of the neck, chest, abdomen and pelvis to level of mid thigh, obtained at one hour post radiopharmaceutical administration contemporaneously interpreted with the current CT of the neck, chest, abdomen and pelvis, to level of mid thigh, dated 03/08/23 via coregistration reveals: BLOOD GLUCOSE LEVEL:?? 104 mg/dl?HEIGHT:?69 inches?WEIGHT: 275 lbs. FINDINGS: Head/Neck: There is no evidence of abnormal increased glucose metabolism in the pharyngeal mucosal space, parapharyngeal space, bilateral-lateral and anterior neck, hypopharynx and distribution of the laryngeal structures. The visualized portion of the cerebral cortical-subcortical structures demonstrate symmetric and preserved glucose metabolism. CHEST: There is no quantitative scintigraphic evidence of abnormal increased glucose metabolism within the context of the bilateral hemithorax pulmonary parenchyma, right and left hemithorax pleural interface, mediastinal structures and right-left thoracic perihilum. Prominent radiopharmaceutical concentration is identified in the left ventricular myocardium commensurate with the [place]. Pertinent chest CT findings are as follows. There are no parenchymal densities-nodules defined in the right and left hemithorax with quantitatively significant increased FDG uptake. Bilateral axillary and calcified and non-calcified mediastinal soft tissue densities demonstrate no evidence of increased radiotracer concentration. Abdomen/Pelvis: Enhanced tracer uptake is noted in the right kidney corresponding to exophytic mass formation. The calculated maximal standard uptake value is 2.9. The maximal axial diameter of the metabolic, morphologic abnormality is 26.1-mm. Normal physiologic distribution of the radiopharmaceutical is apparent in the hepatic (3.7) and splenic parenchyma, left renal units, bladder and visualized intestinal tract. Pertinent abdomen and pelvis CT findings are as follows. There is atherosclerotic calcification defined in the abdominal aorta without evidence of dilatation-aneurysm formation. Abdominal-pelvic arterial calcification is defined. Bilateral inguinal soft tissue densities are ametabolic. Skeletal: Degenerative changes are noted in the cervical, thoracic and lumbar spine without evidence of increased radiopharmaceutical concentration. PET/PET/CT Tumor Base -Thigh Init IMPRESSION: 1. ABNORMAL EXAMINATION INDICATIVE OF MALIGNANT-VIABLE NEOPLASM. 2. Facilitated FDG concentration noted in the posterior aspect of the right renal unit corresponding to exophytic mass formation fulfills quantitative criteria for viable neoplasm with single point technique. 3. No other quantitatively significant hypermetabolic abnormalities are encountered. Electronic Signature Ki Santiago D.O. Accurate Quantification of SUVs for this report are calculated using the exclusive [employer], ([place] Patent No. [phone] [phone] [place] patent [phone] ). Standardization and correction of the FDG SUV metric exclusively available with [employer] intellectual property, allow for vendor non-specific objective quantitative sequential FDG PET-CT comparison and otherwise unobtainable optimization of the sensitivity and specificity of the examination. [email or web address] Electronically Signed: Ki Santiago DO at 9:35 EST ,
== END | disposition home or self-care (01) ==
LOC: ONC 08:55
PROVIDERS: PCP Family Medicine; Referring Provider Family Medicine; Visit Provider Family Medicine
DX: N28.89 Other specified disorders of kidney and ureter (principal)
CPT/HCPCS: 78815; A9552

== ENCOUNTER → 2023-04-05 | Outpatient (CLI) | payer MEDICARE, SELFPAY ==
[2023-04-05 15:31] LABS: Hematocrit 44.6 % (40-54); Hemoglobin 14.8 g/dL (13.0-16.5); Mean Corp Hgb Conc 33.2 g/dL (32-36); Mean Corpuscular Hgb 33.1 pg (27.0-32.0); Mean Corpuscular Volume 99.8 fL (80-94); Mean Platelet Vol. 10.9 fl (6.2-12.0); Platelet Count 177 K/mm3 (150-450); RBC Distribution Width SD 47.8 fl (35.1-43.9); Red Blood Count 4.47 M/mm3 (4.6-6.2); White Blood Count 5.6 K/mm3 (4.4-11.0)
[2023-04-05 16:10] LABS: Anion Gap 7 (5-15); BUN 14 mg/dL (7-18); Calcium,Total 8.8 mg/dL (8.5-10.1); Chloride 103 mmol/L (98-107); EST Glomerular Filtration Rate 77 mL/min (>60); Est Glom Filt Rate - Afr Amer 94 mL/min (>60); Glucose 150 mg/dL (74-106); Potassium 3.5 mmol/L (3.5-5.1); Sodium Level 139 mmol/L (136-145)
== END | disposition home or self-care (01) ==
LOC: BFHLAB 13:56
PROVIDERS: PCP Family Medicine; Visit Provider Urology
DX: Z01.812 Encounter for preprocedural laboratory examination (principal); Z01.818 Encounter for other preprocedural examination
CPT/HCPCS: 36415; 80048; 85027

== ENCOUNTER 2023-04-15 17:44 | Emergency (ER) | payer MEDICARE, SELFPAY ==
[2023-04-15] VITALS (9 sets, daily range): BP systolic 137–206; BP diastolic 66–156; PULSE 74–87; RESP 12–35; TEMP 36; O2SAT 92–97; BMI 41.4
--- NOTE | 2023-04-15 20:07 | EX.ED.DYSGE1 ---
HPI <Dr. Torey Multani, DO - Last Filed: 04/19/23 16:47> History of Present Illness Chief Complaint: Nausea/Vomiting Narrative Narrative: Persistent nausea after returning from his procedure for ureteral stent with lithotripsy followed by Dr. Nieves today. He has been n.p.o. throughout the night. He felt fine leaving few hours after getting home he was nauseated. Has been no vomiting. He had a bowel movement while in the waiting room. History of similar in the past with no acute findings. He reports no side effects or reactions to sedation in the past. Denies abdominal pain. Denies fevers. Denies any history of heart failure. Prior similar symptoms: Yes PFSH <Dr. Torey Multani, - Last Filed: 04/19/23 16:47> [facility] Medical History Chest wall contusion (~12/18/20) Encounter for screening for COVID-19 HTN (hypertension) Hyperthyroidism SOB (shortness of breath) Home Medications lisinopril 20 mg tablet 20 mg PO BID blood pressure 03/16/18 [History Last Taken 03/07/19] pantoprazole 40 mg tablet,delayed release 40 mg PO BID reflux 09/07/19 [History Last Taken Unknown] albuterol sulfate 90 mcg/actuation aerosol inhaler (ProAir HFA) 1 - 2 puff inhalation Q6H PRN shortness of breath or wheezing #8.5 grams 05/24/20 [Rx Last Taken Unknown] ciprofloxacin HCl 500 mg tablet 500 mg PO BID 04/15/23 [History Last Taken 04/15/23] ibuprofen 600 mg tablet 600 mg PO Q6H PRN pain 04/15/23 [History Last Taken Unknown] lorazepam 0.5 mg tablet 0.5 mg PO BID 04/15/23 [History Last Taken Unknown] phenazopyridine 100 mg tablet 100 mg PO TID PRN pain 04/15/23 [History Last Taken Unknown] tamsulosin 0.4 mg capsule 0.4 mg PO QHS 04/15/23 [History Last Taken Unknown] doxepin 10 mg capsule 10 mg PO QHS PRN PRN insomnia 04/17/23 [History Last Taken Unknown] Allergy/AdvReac Type Severity Reaction Status Date / Time amoxicillin Allergy doesnt Verified 04/17/23 13:43 rememeber fluoxetine [From Prozac] AdvReac Other Verified 04/17/23 13:43 Family History Mother Myocardial infarction Father Cancer Surgical History History of eye surgery Social History Smoking Status: Former smoker alcohol intake: current Alcohol type: hard liquor ROS <Dr. Torey Multani, DO - Last Filed: 04/19/23 16:47> ROS ED Constitutional Constitutional ED: Denies chills, fever(s) or sweats Eyes Eyes: Denies change in vision ENT ENT ED: Denies dysphagia or sore throat Cardiovascular Cardiovascular: Denies chest pain, leg edema, palpitations or racing heartbeat Respiratory/Chest Respiratory/Chest: Denies cough, dyspnea or dyspnea on exertion Gastrointestinal Gastrointestinal: Reports nausea; Denies abdominal pain, diarrhea or vomiting Genitourinary Genitourinary ED: Denies dysuria, hematuria or urinary frequency Musculoskeletal Musculoskeletal: Denies back pain, extremity pain or neck pain Integumentary Denies rash or wounds Neurologic Neurologic: Denies headache(s), paresthesias or weakness EXAM <Dr. Torey Multani, DO - Last Filed: 04/19/23 16:47> Physical Exam Const Vital Signs: 04/15/23 17:46 04/15/23 19:44 04/15/23 21:00 Temperature 96.8 F L Temperature Source Temporal Pulse Rate 85 77 85 Respiratory Rate 14 18 18 Blood Pressure 198/156 H 205/102 H 191/97 H Blood Pressure Mean 170 136 128 Pulse Ox 95 94 97 Oxygen Delivery Method Room Air Room Air 04/15/23 22:00 04/15/23 22:42 04/15/23 22:46 Temperature Temperature Source Pulse Rate 77 86 74 Respiratory Rate 24 H 25 H 26 H Blood Pressure 206/106 H 198/103 H 174/91 H Blood Pressure Mean 139 134 118 Pulse Ox 95 93 92 Oxygen Delivery Method Room Air Room Air 04/15/23 22:59 04/15/23 23:36 04/15/23 23:45 Temperature Temperature Source Pulse Rate 74 87 81 Respiratory Rate 35 H 28 H 12 Blood Pressure 179/80 H 166/81 H 137/66 H Blood Pressure Mean 113 109 89 Pulse Ox 92 92 92 Oxygen Delivery Method Room Air Room Air Room Air 04/16/23 00:28 Temperature Temperature Source Pulse Rate 81 Respiratory Rate 19 H Blood Pressure 129/90 H Blood Pressure Mean 103 Pulse Ox 94 Oxygen Delivery Method Room Air Positive well nourished and well developed General Appearance ED: well developed and NAD HEENT Reports dry mucous membranes normocephalic and atraumatic Mouth ED: Yes dry mucous membranes Mouth: dry mucous membranes Eyes PERRL, EOMs intact bilaterally and conjunctivae normal General Eye ED: Yes normal appearance of both eyes Neck no lymphadenopathy and supple General: Negative for tenderness Chest Wall Chest: Negative for tenderness Resp normal respiratory effort and normal air movement Effort and Inspection: symmetric chest movement; Negative for respiratory distress Cardio regular rate, regular rhythm and no murmurs Peripheral Pulses: pulses 2+ throughout GI normal to inspection, nondistended, normoactive bowel sounds and non-tender Palpation: Negative for guarding or rebound tenderness present Back/Spine no CVA tenderness and no thoracic nor lumbar tenderness Extremity normal to inspection General Extremety ED: Negative for edema or tenderness General Extremity: Negative for edema Neuro oriented x3 and no sensory deficits noted Sensorium / Orientation: awake and alert Skin no rashes or lesions noted and no wounds <Dr. Guicho Omalley MD - Last Filed: 04/16/23 01:49> Physical Exam Const Vital Signs: 04/15/23 17:46 04/15/23 19:44 04/15/23 21:00 Temperature 96.8 F L Temperature Source Temporal Pulse Rate 85 77 85 Respiratory Rate 14 18 18 Blood Pressure 198/156 H 205/102 H 191/97 H Blood Pressure Mean 170 136 128 Pulse Ox 95 94 97 Oxygen Delivery Method Room Air Room Air 04/15/23 22:00 04/15/23 22:42 04/15/23 22:46 Temperature Temperature Source Pulse Rate 77 86 74 Respiratory Rate 24 H 25 H 26 H Blood Pressure 206/106 H 198/103 H 174/91 H Blood Pressure Mean 139 134 118 Pulse Ox 95 93 92 Oxygen Delivery Method Room Air Room Air 04/15/23 22:59 04/15/23 23:36 04/15/23 23:45 Temperature Temperature Source Pulse Rate 74 87 81 Respiratory Rate 35 H 28 H 12 Blood Pressure 179/80 H 166/81 H 137/66 H Blood Pressure Mean 113 109 89 Pulse Ox 92 92 92 Oxygen Delivery Method Room Air Room Air Room Air 04/16/23 00:28 Temperature Temperature Source Pulse Rate 81 Respiratory Rate 19 H Blood Pressure 129/90 H Blood Pressure Mean 103 Pulse Ox 94 Oxygen Delivery Method Room Air MDM <Dr. Torey Multani, DO - Last Filed: 04/19/23 16:47> MDM MDM Narrative Medical decision making narrative: Interventions / MDM: Differential diagnosis: Post sedation nausea, electrolyte abnormalities, dehydration Diagnosis considered but do not suspect: No clinical bowel obstruction, bowel movement while in the waiting room. My EKG interpretation: N/A Imaging independently reviewed and interpreted by myself: N/A External documents reviewed: N/A Test considered but not ordered:N/A ED course: Patient with dry mucosal membranes. Post sedation having nausea. Soft abdomen normal bowel sounds. Establish IV for fluids we will check basic labs and give IV Zofran. Reevaluation nausea only slightly improved. Labs are stable. Sodium 134. Will try IV Reglan. 2149: Reevaluation states was improving however symptoms returned. Discussion of any marijuana use he states he did use his CBD hemp and last use was 3 days ago. Will try Ativan IV. Will reevaluate. 2229: Persistent nausea on reevaluation. Blood pressure elevated systolic 213 heart rate 86. He is on lisinopril 20 mg twice daily. He took morning dose after his procedure. He is to nausea take his nighttime dose. Will order for Haldol IV, labetalol IV. He denies any headache or chest pain symptoms. Patient signed out to night physician to re-evaluate. Re-evaluation: stable Disposition discussed with patient/family/significant other: patient Case discussed with consulting clinician: N/A This note was generated with THYME dictation software. It may contain incorrect words, spelling, and punctuation that were not noted in checking the note before signing. Lab Data Attestation: I reviewed the patient's lab results. Labs: Laboratory Results - last 24 hr 04/15/23 04/15/23 20:30 22:45 WBC 6.1 RBC 4.76 Hgb 15.8 Hct 45.8 MCV 96.2 H MCH 33.2 H MCHC 34.5 RDW Std Deviation 44.9 H RDW Coeff of [place] 12.6 Plt Count 172 MPV 10.1 Immature Gran % (Auto) 0.300 Neut % (Auto) 80.3 H Lymph % (Auto) 12.8 L [place] % (Auto) 6.4 Eos % (Auto) 0.0 Baso % (Auto) 0.2 Absolute Neuts (auto) 4.9 Absolute Lymphs (auto) 0.78 L Nucleated RBC % 0 Sodium 134 L Potassium 3.9 Chloride 97 L Carbon Dioxide 30.0 Anion Gap 7 BUN 10 Creatinine 1.10 Estim Creat Clear Calc 75.39 Est GFR (MDRD) Af Amer 84 Est GFR (MDRD) Non-Af 69 BUN/Creatinine Ratio 9.1 L Glucose 176 H Calcium 8.9 Urine Opiates Screen NEGATIVE Urine Methadone Screen NEGATIVE Ur Barbiturates Screen NEGATIVE Ur Phencyclidine Scrn NEGATIVE Ur Amphetamines Screen NEGATIVE MDMA (Ecstasy) Screen NEGATIVE U Benzodiazepines Scrn POSITIVE H Urine Cocaine Screen NEGATIVE U Cannabinoids Screen NEGATIVE Ur Drug Screen Comment <Dr. Guicho Omalley MD - Last Filed: 04/16/23 01:49> [facility] Lab Data Labs: Laboratory Results - last 24 hr 04/15/23 04/15/23 20:30 22:45 WBC 6.1 RBC 4.76 Hgb 15.8 Hct 45.8 MCV 96.2 H MCH 33.2 H MCHC 34.5 RDW Std Deviation 44.9 H RDW Coeff of [place] 12.6 Plt Count 172 MPV 10.1 Immature Gran % (Auto) 0.300 Neut % (Auto) 80.3 H Lymph % (Auto) 12.8 L [place] % (Auto) 6.4 Eos % (Auto) 0.0 Baso % (Auto) 0.2 Absolute Neuts (auto) 4.9 Absolute Lymphs (auto) 0.78 L Nucleated RBC % 0 Sodium 134 L Potassium 3.9 Chloride 97 L Carbon Dioxide 30.0 Anion Gap 7 BUN 10 Creatinine 1.10 Estim Creat Clear Calc 75.39 Est GFR (MDRD) Af Amer 84 Est GFR (MDRD) Non-Af 69 BUN/Creatinine Ratio 9.1 L Glucose 176 H Calcium 8.9 Urine Opiates Screen NEGATIVE Urine Methadone Screen NEGATIVE Ur Barbiturates Screen NEGATIVE Ur Phencyclidine Scrn NEGATIVE Ur Amphetamines Screen NEGATIVE MDMA (Ecstasy) Screen NEGATIVE U Benzodiazepines Scrn POSITIVE H Urine Cocaine Screen NEGATIVE U Cannabinoids Screen NEGATIVE Ur Drug Screen Comment Treatment and Re-Evaluation :: Care was transferred at 2220. Plan was to discharge if patient's symptoms improved i.e. nausea vomiting and blood pressure. Patient required a third dose of IV labetalol. His nausea and vomiting resolved after receiving Haldol. Patient was reassessed at 0145. His blood pressure was 145/74. He states he no longer feels nauseous and has had no further vomiting. Plan is to discharge to home Discharge Plan Triage Chief Complaint: Nausea/Vomiting ED Provider: Guicho Omalley Dx/Rx/DC Orders Clinical Impression: Cannabis use disorder, Elevated blood pressure reading in office with diagnosis of hypertension, Nausea Instructions: ED High Blood Pressure Hypertension Prescriptions: No Action albuterol sulfate [ProAir HFA] 90 mcg/actuation HFA aerosol inhaler 1 - 2 puff INHALATION Q6H PRN (Reason: shortness of breath or wheezing) Qty: 8.5 1RF lisinopril 20 MG tablet 20 mg PO BID Patient Comments: take 1 tablet by mouth twice a day pantoprazole 40 MG tablet 40 mg PO BID Rx Instructions: Take 40 mg twice daily for 2 weeks followed by 40 mg daily. lorazepam 0.5 mg tablet 0.5 mg PO BID Patient Comments: take 1 tablet by mouth twice a day if needed for anxiety tamsulosin 0.4 mg capsule 0.4 mg PO QHS Patient Comments: take 1 capsule by mouth at bedtime phenazopyridine 100 mg tablet 100 mg PO TID PRN (Reason: pain) Patient Comments: take 1 tablet by mouth three times a day if needed ibuprofen 600 mg tablet 600 mg PO Q6H PRN (Reason: pain) Patient Comments: take 1 tablet by mouth every 6 hours NEEDED FOR PAIN ciprofloxacin HCl 500 mg tablet 500 mg PO BID Patient Comments: take 1 tablet by mouth twice a day doxepin 10 mg capsule 10 mg PO QHS PRN PRN (Reason: insomnia) Patient Comments: take 1 capsule by mouth at bedtime if needed for sleep Primary Care Provider: Alfred Bailey Referrals: Alfred Bailey DO [Primary Care Provider] - As Needed Activity Restrictions/Additional Instructions: Recommend discontinuing the CBD/hash oil Disposition Disposition: Home, Self Care Discharge Date/Time: 04/16/23 01:56
[2023-04-15] MEDS: 0.9% Normal Saline (1000mL) 1,000 ML 1000 ML IV (20:26)
[2023-04-15] MEDS: Ondansetron 4 MG/2 ML Vial IV (20:26)
[2023-04-15 20:34] LABS: Absolute Lymphocyte Count 0.78 X10^3/uL (0.83-4.51); Absolute Neutrophil Count 4.9 X10^3/uL (2.0-7.7); Basophil# 0.01 X10^3/uL; Basophil% 0.2 % (0-1); Hematocrit 45.8 % (40-54); Hemoglobin 15.8 g/dL (13.0-16.5); Lymphocyte # 0.78 X10^3/ul (0.83-4.51); Lymphocyte % 12.8 % (19-41); Mean Corp Hgb Conc 34.5 g/dL (32-36); Mean Corpuscular Hgb 33.2 pg (27.0-32.0); Mean Corpuscular Volume 96.2 fL (80-94); Mean Platelet Vol. 10.1 fl (6.2-12.0); Monocyte# 0.39 X10^3/uL; Monocyte% 6.4 % (0-10); NRBC Flagged by Analyzer 0 % (0-5); Neutrophil # 4.89 X10^3/uL (2.7-7.7); Neutrophil % 80.3 % (47-70); Platelet Count 172 K/mm3 (150-450); RBC Distribution Width CV 12.6 % (11.6-14.6); RBC Distribution Width SD 44.9 fl (35.1-43.9); Red Blood Count 4.76 M/mm3 (4.6-6.2); White Blood Count 6.1 K/mm3 (4.4-11.0)
--- OUTSIDE RECORDS SUMMARY | 2023-04-15 20:38 | XMS RPT_ITS | CCD ---
Author Name Unknown Address [address] [place] [address] Organization [facility] Care Team Providers Care [place]ai [place] Manager Name Role Phone POOL MISTRY, DR THOMAS Nelson JR Primary Care Physician ABHAY MISTRY, DR JASSON WHITE Attending Lawrence LANZA MD, DR THOMAS Nelson JR Primary Care Lawrence high Allergies Allergy Classification Reported Allergen(s) Allergy Type Date of Onset Reaction(s) Facility (1 source) Amoxicillin; Translations: [amoxicillin] Drug Allergy [facility] Medications Current Medications Medication Drug Class(es) Dates Sig (Normalized) Sig (Original) chlordiazePOXIDE hydrochloride 25 mg oral capsule (1 source) Benzodiazepine Start: 7 chlordiazePOXIDE 25 mg oral capsule Dose : 25 mg = 1 cap(s), Oral, TID, PRN for anxiety, 0 Refill(s) Start Date: 03/04/16 Status: Ordered levothyroxine (1 source) l-Thyroxine Start: 6 levothyroxine qDay, 0 Refill(s) Start Date: 03/24/15 Status: Ordered lisinopril 20 mg oral tablet (1 source) Angiotensin Converting Enzyme Inhibitor Start: 4 lisinopril 20 mg oral tablet Dose : 20 mg = 1 tab(s), Oral, BID Start Date: 07/31/13 Status: Ordered pantoprazole 40 mg delayed release oral tablet (2 sources) Proton Pump Inhibitor Start: 5 pantoprazole 40 mg oral enteric coated tablet Dose : 40 mg = 1 tab(s), Oral, BIDAC, 0 Refill(s) Start Date: 03/04/16 Status: Ordered simvastatin 20 mg oral tablet (1 source) HMG-CoA Reductase Inhibitor Start: 07-22-201 4 simvastatin 20 mg oral tablet (NF) Dose : 20 mg = 1 tab(s), Oral, qHS, 0 Refill(s) Start Date: 08/28/13 Status: Ordered Completed/Discontinued Medications Medication Drug Class(es) Dates Sig (Normalized) Sig (Original) levalbuterol 2.5 mg/ml inhalation solution (1 source) beta2-Adrenergic Agonist Start: 11-05-2013 Xopenex 1.25 mg/0.5 mL inhalation solution (NF) Dose : 1.25 mg = 0.5 mL, Inhalation, q6hRT, # 30 EA, 0 Refill(s) Start Date: 11/05/13 Status: Ordered Problems Problem Classification Problem Date Documented Da te Episodic/Chronic Anxiety disorders (1 source) Anxiety 10-31-2013 Chronic Chronic obstructive pulmonary disease and bronchiectasis (1 source) Chronic obstructive lung disease Onset: 4 11-02-2013 Chronic Chronic obstructive pulmonary disease and bronchiectasis (1 source) Bronchitis 10-28-2013 Episodic Disorders of lipid metabolism (1 source) Hyperlipidemia 08-28-2013 Chronic Esophageal disorders (1 source) Gastroesophageal reflux disease 08-28-2013 Chronic Essential hypertension (1 source) Hypertensive disorder 08-28-2013 Chronic Nausea and vomiting (1 source) Nausea 08-28-2013 Episodic Other gastrointestinal disorders (1 source) Irritable bowel syndrome 08-28-2013 Chronic Other nutritional; endocrine; and metabolic disorders (1 source) Obesity 08-28-2013 Chronic Pneumonia (except that caused by tuberculosis or sexually transmitted disease) (1 source) Pneumonia 10-31-2013 Episodic Residual codes; unclassified (1 source) Sleep apnea 08-28-2013 Chronic Results Test Name Value Interpretation Reference Range Facil ity Encounters Encounter Date Encounter Type Care Provider Facility Start: 04-13-2023 End: 04-14-[address] JASSON BLANK MD Facility:B Start: 04-13-2023 End: 04-13-[address] JASSON BLANK MD [facility] Procedures Date Procedure Procedure Detail Performing Clinician Start: 03-24-[address] JASSON FISH MD Arthroscopy knee diagnostic w/wo synovial bx spx DR JASSON BLANK MD Immunizations Immunization Date Immunization Notes Care Provider Mary kramer 07-10-2013 pneumococcal polysaccharide vaccine, [address] JASSON BLANK MD [facility] Payers Date Payer Category Payer Unknown [id number] 1950 Unknown [id number] Social History Date Type Detail Facility Tobacco smoking status Ex-smoker (finding ) [facility] Sex Assigned At Male [facility] Clinical Note 04-13-2023 Note Date & Type Note Facility 04-13-2023 Note Sinus rhythm Probable left atrial enlargement Anteroseptal infarct, age indeterminate Electronic Signature: NEVILLE UNDERWOOD MD 04/13/2023 16:41:28 [facility] Evaluation + Plan note Note Date & Type Note Facility Evaluation + Plan note No data available for this section [facility] Hospital Discharge instructions Note Date & Type Note Facility Hospital Discharge instructions No data available for this section [facility] Progress note Note Date & Type Note Facility Progress note No data available for this section [facility] Summary Purpose Family History No Family History Records Found No data available for this section No Family History Records Found Advance Directives No Advanced Directives Records FoundNo Advanced Directives Records Found Procedure Findings Note Operative Note (Enc) (GENSWS ) Progress Notes: Thomas Galaviz MD 04/01/2018 9:54 AM Signed OPERATIVE NOTATION FOR [facility] SURGICAL PROCEDURE. March 17, 2018 Kirk Segura 1950 [id number] male PROCEDURE: EGD WITH BIOPSY - [id number] SURGEON: Baljit Galaviz M.D. FACS SENIOR CARE SPECIALIST: None DEPT: [facility] PROVIDER: [id number] Galaviz MD POS: [id number] DIAGNOSIS: (K92.0) Hematemesis, presence of nausea not [...] Clean Contaminated Operative note dictated in the [facility] dictation sys (more content not included)... Additional Source Comments (unrecognized sect ion and content) No Status Records FoundNo Status Records Found INFORMATION SOURCE (unrecogn ized section and content) DATE CREATED AUTHOR AUTHOR'S ORGANIZ ATION 04/14/2023 [facility] ([place]) Patient Care team informatio n (unrecognized section and content) Care Team Personnel Name: THOMAS LANZA JR, MD Member Role: Primary Care Physician Address: Address: [address] [place] [id number] Care Team Related Persons Name: URIEL SEGURA Address: Home [address] [place] [address] FOR RECORDS PERTAINING TO PATIENTS WHO ARE [...] BE BASED ON THE PRIMARY CLINICAL RECORDS. [facility] [employer] [facility]. provides no warranty or guarantee of the accuracy or completeness of information in this document.
[2023-04-15 20:50] LABS: Anion Gap 7 (5-15); BUN 10 mg/dL (7-18); BUN/Creat Ratio 9.1 RATIO (10-20); Calcium,Total 8.9 mg/dL (8.5-10.1); Chloride 97 mmol/L (98-107); EST Glomerular Filtration Rate 69 mL/min (>60); Est Glom Filt Rate - Afr Amer 84 mL/min (>60); Estimated Creatinine Clearance 75.39 ml/min; Glucose 176 mg/dL (74-106); Potassium 3.9 mmol/L (3.5-5.1); Sodium Level 134 mmol/L (136-145)
[2023-04-15] MEDS: Metoclopramide 10 MG/2 ML Vial 5 MG IV (21:28)
[2023-04-15] MEDS: Lorazepam 2 MG/ML WCH Syringe 0.5 MG IV (21:54)
[2023-04-15] MEDS: Labetalol (Prefilled) 20 MG/4 ML 10 MG IV (22:40)
[2023-04-15] MEDS: Haloperidol Lactate 5 MG/ML Vial 2 MG IV (22:40)
--- NOTE | 2023-04-15 23:01 | ED.RN ---
Unable to scan medication into patient MAR d/t it saying Nakia Olivia was managing it. She is no longer on the facility property. I d/c the current orders and placed the same medication order so it can be tracked in the patient chart.
[2023-04-15 23:30] LABS: Amphetamine Urine VISTA NEGATIVE (<1000 ng/mL); Barbiturate Urine VISTA NEGATIVE (< 200 ng/mL); Benzodiazepine Urine VISTA POSITIVE (< 200 ng/mL); Cocaine Urine VISTA NEGATIVE (< 300 ng/mL); Ecstacy Urine VISTA NEGATIVE (< 500 ng/mL); Methadone Urine VISTA NEGATIVE (< 300 ng/mL); PCP Urine VISTA NEGATIVE (< 25 ng/mL); THC Urine VISTA NEGATIVE (< 50 ng/mL); Vista UDS pH Range 8
[2023-04-15] MEDS: Labetalol (Prefilled) 20 MG/4 ML IV (23:37)
[2023-04-16 00:28] VITALS: BP 129/90; PULSE 81; RESP 19; O2SAT 94
[2023-04-16 01:55] VITALS: BP 145/75; PULSE 78; RESP 16; TEMP 37.2; O2SAT 100
== END 2023-04-16 01:56 | disposition home or self-care (01) ==
PROVIDERS: Emergency Medicine; Emergency Provider Emergency Medicine; PCP Family Medicine; Visit Provider Emergency Medicine
DX: R11.2 Nausea with vomiting, unspecified (principal); F12.90 Cannabis use, unspecified, uncomplicated; I10 Essential (primary) hypertension; Z87.891 Personal history of nicotine dependence; Z79.899 Other long term (current) drug therapy
CPT/HCPCS: 80048; 80307; 85025; 96361; 96374; 96375; 96376; 99284; J7030; A4216; J2405

== ENCOUNTER 2023-04-17 13:43 | Observation (INO) | payer MEDICARE, SELFPAY ==
[2023-04-17] VITALS (8 sets, daily range): BP systolic 130–202; BP diastolic 86–107; PULSE 72–94; RESP 18–26; TEMP 36.3–36.7; O2SAT 92–97; BMI 41.4; BMI 40.3
--- NOTE | 2023-04-17 14:00 | EDS_ITS ---
HPI History of Present Illness Chief Complaint: Nausea/Vomiting Informant: patient Onset/Context/Timing Onset: Today Narrative Narrative: Patient presents with recurrent nausea. Patient was seen in the ER on the ev en of April 14 after having surgery for ureteral stent. He felt well when he left the hospital but developed nausea and vomiting when he got home. In the emergency room he was given Zofran, Reglan, Ativan, and labetalol for blood pressure. He ultimately required a dose of Haldol for nausea. Patient states yesterday he felt well and was able to eat and drink without difficulty. Today he has developed recurrent nausea. He denies fever or chills. He states he has had surgery multiple times in the past and never had problems with anesthesia. He denies recent marijuana use. He states he last smoked Hemp about 2 weeks ago. [facility] Medical History Chest wall contusion (~12/18/20) Encounter for screening for COVID-19 HTN (hypertension) Hyperthyroidism SOB (shortness of breath) Home Medications lisinopril 20 mg tablet 20 mg PO BID blood pressure 03/16/18 [History Last Taken 03/07/19] pantoprazole 40 mg tablet,delayed release 40 mg PO BID reflux 09/07/19 [History Last Taken Unknown] albuterol sulfate 90 mcg/actuation aerosol inhaler (ProAir HFA) 1 - 2 puff inhalation Q6H PRN shortness of breath or wheezing #8.5 grams 05/24/20 [Rx Last Taken Unknown] ciprofloxacin HCl 500 mg tablet 500 mg PO BID 04/15/23 [History Last Taken 04/15/23] ibuprofen 600 mg tablet 600 mg PO Q6H PRN pain 04/15/23 [History Last Taken Unknown] lorazepam 0.5 mg tablet 0.5 mg PO BID 04/15/23 [History Last Taken Unknown] phenazopyridine 100 mg tablet 100 mg PO TID PRN pain 04/15/23 [History Last Taken Unknown] tamsulosin 0.4 mg capsule 0.4 mg PO QHS 04/15/23 [History Last Taken Unknown] doxepin 10 mg capsule 10 mg PO QHS PRN PRN insomnia 04/17/23 [History Last Taken Unknown] Allergy/AdvReac Type Severity Reaction Status Date / Time amoxicillin Allergy doesnt Verified 04/17/23 13:43 rememeber fluoxetine [From Prozac] AdvReac Other Verified 04/17/23 13:43 Family History Mother Myocardial infarction Father Cancer Surgical History History of eye surgery Social History Smoking Status: Former smoker alcohol intake: current Alcohol type: hard liquor ROS ROS ED Constitutional Constitutional ED: Denies chills or fever(s) Eyes Eyes: Denies discharge from eye(s) ENT ENT ED: Denies discharge from eye(s), rhinorrhea or sore throat Cardiovascular Cardiovascular: Denies chest pain or palpitations Respiratory/Chest Respiratory/Chest: Denies cough or dyspnea Gastrointestinal Gastrointestinal: Reports nausea; Denies abdominal pain, diarrhea or vomiting Genitourinary Genitourinary ED: Denies dysuria Musculoskeletal Musculoskeletal: Denies back pain or extremity pain Integumentary Denies Abrasions or rash Neurologic Neurologic: Denies headache(s) or weakness Psychiatric Psychiatric: Denies anxiety or depression Allergic/Immunologic Allergic/Immunologic ED: Denies lip swelling or urticaria EXAM Physical Exam Const Vital Signs: 04/17/23 13:44 04/17/23 15:25 04/17/23 15:53 Temperature 97.3 F L Temperature Source Temporal Pulse Rate 94 81 79 Respiratory Rate 18 24 H 22 H Blood Pressure 193/96 H 197/98 H 199/107 H Blood Pressure Mean 128 131 137 Pulse Ox 94 94 92 Oxygen Delivery Method Room Air Room Air Room Air Positive well nourished and well developed General Appearance ED: well developed HEENT Reports moist mucous membranes Eyes EOMs intact bilaterally Chest Wall inspection of chest normal and palpation of chest normal Resp normal respiratory effort and clear to auscultation bilaterally Cardio regular rate and regular rhythm GI GI Narrative: Abdomen soft with no focal tenderness. Hypoactive bowel sounds noted. Extremity normal to inspection Neuro oriented x3 and no sensory deficits noted Motor Exam: strength 5/5 throughout Psych mental status grossly normal Skin no rashes or lesions noted MDM MDM MDM Narrative Medical decision making narrative: IV line will be established. Patient given IV fluids. I will give him Reglan and Benadryl to try to control his nausea. Labwork obtained to evaluate for daniel kocytosis, anemia, and electrolyte derangement. Urinalysis obtained to evaluate for infection/hematuria. History & Record Review Discussion w/independent historian: Patient Lab Data Attestation: I reviewed the patient's lab results. Labs: Laboratory Results - last 24 hr 04/17/23 04/17/23 14:05 15:02 WBC 10.6 RBC 5.03 Hgb 16.5 Hct 49.4 MCV 98.2 H MCH 32.8 H MCHC 33.4 RDW Std Deviation 47.6 H RDW Coeff of [place] 13.3 Plt Count 175 MPV 10.2 Immature Gran % (Auto) 0.400 Neut % (Auto) 70.7 H Lymph % (Auto) 16.9 L [place] % (Auto) 11.2 H Eos % (Auto) 0.4 Baso % (Auto) 0.4 Absolute Neuts (auto) 7.5 Absolute Lymphs (auto) 1.79 Nucleated RBC % 0 Sodium 137 Potassium 3.9 Chloride 100 Carbon Dioxide 28.0 Anion Gap 9 BUN 14 Creatinine 1.21 Estim Creat Clear Calc 68.57 Est GFR (MDRD) Af Amer 75 Est GFR (MDRD) Non-Af 62 BUN/Creatinine Ratio 11.6 Glucose 97 Calcium 8.6 Total Bilirubin 0.90 Direct Bilirubin 0.16 AST 42 H ALT 29 Alkaline Phosphatase 62 Total Protein 7.9 Albumin 3.8 Globulin 4.1 Urine Color Yellow Urine Clarity Clear Urine pH 8.0 Ur Specific [place] 1.015 Urine Protein 30 H Urine Glucose (UA) Normal Urine Ketones Negative Urine Occult Blood 250 H Urine Nitrite Positive H Urine Bilirubin Negative Urine Urobilinogen Normal Ur Leukocyte Esterase 25 H Urine RBC 50-100 SEEN Urine WBC 0-5 SEEN Ur Squamous Epith Cells 0-5 SEEN Amorphous Sediment 1+ PHOS Urine Bacteria RARE Urine Mucus 0 SEEN Treatment and Re-Evaluation :: CBC was normal white count at 10.6 with hemoglobin 16.5. 70% neutrophils noted. Chemistry studies are unremarkable. LFTs normal. Urinalysis is positive for nitrites with 50-100 red cells, 0-5 white cells, and rare bacteria. Patient just had a ureteral stent placed. Will give him a dose of Rocephin and send urine culture. Patient reported no improvement with his nausea and vomiting after Reglan and Benadryl. He was given a dose of IV Haldol which helped him 2 nights ago. Despite this, he continues to have nausea and vomiting. He will be given a dose of IM Phenergan and a dose of labetalol for blood pressure control. I do believe he will require hospital admission for intractable vomiting. Discharge Plan Triage Chief Complaint: Nausea/Vomiting ED Provider: Jessica Sullivan Dx/Rx/DC Orders Clinical Impression: Intractable vomiting Prescriptions: No Action albuterol sulfate [ProAir HFA] 90 mcg/actuation HFA aerosol inhaler 1 - 2 puff INHALATION Q6H PRN (Reason: shortness of breath or wheezing) Qty: 8.5 1RF lisinopril 20 MG tablet 20 mg PO BID Patient Comments: take 1 tablet by mouth twice a day pantoprazole 40 MG tablet 40 mg PO BID Rx Instructions: Take 40 mg twice daily for 2 weeks followed by 40 mg daily. lorazepam 0.5 mg tablet 0.5 mg PO BID Patient Comments: take 1 tablet by mouth twice a day if needed for anxiety tamsulosin 0.4 mg capsule 0.4 mg PO QHS Patient Comments: take 1 capsule by mouth at bedtime phenazopyridine 100 mg tablet 100 mg PO TID PRN (Reason: pain) Patient Comments: take 1 tablet by mouth three times a day if needed ibuprofen 600 mg tablet 600 mg PO Q6H PRN (Reason: pain) Patient Comments: take 1 tablet by mouth every 6 hours NEEDED FOR PAIN ciprofloxacin HCl 500 mg tablet 500 mg PO BID Patient Comments: take 1 tablet by mouth twice a day doxepin 10 mg capsule 10 mg PO QHS PRN PRN (Reason: insomnia) Patient Comments: take 1 capsule by mouth at bedtime if needed for sleep Primary Care Provider: Alfred Bailey Referrals: Alfred Bailey DO [Primary Care Provider] - Disposition Disposition: Acute Care Hospital [facility]
--- OUTSIDE RECORDS SUMMARY | 2023-04-17 14:02 | XMS RPT_ITS | CCD ---
Author Name Unknown Address [address] [place] [address] Organization [facility] Care Team Providers Care Hostel Parent Name Role Phone POOL MISTRY, DR THOMAS Nelson JR Primary Care Physician ABHAY MISTRY, DR JASSON WHITE Attending Lawrence LANZA MD, DR THOMAS Nelson JR Primary Care Lawrence high Allergies Allergy Classification Reported Allergen(s) Allergy Type Date of Onset Reaction(s) Facility (1 source) Amoxicillin; Translations: [amoxicillin] Drug Allergy [facility] Medications Current Medications Medication Drug Class(es) [...] Patient encounter procedure DR JASSON BLANK MD [facility] Procedures Date Procedure Procedure Detail Performing Clinician Start: 03-24-[address] JASSON FISH MD Arthroscopy knee diagnostic w/wo synovial bx spx DR JASSON BLANK MD Immunizations Immunization Date Immunization Notes Care Provider Mary kramer 07-10-2013 pneumococcal polysaccharide vaccine, [address] JASSON BLANK MD [facility] Payers Date Payer Category Payer Unknown [id number] 1950 Unknown [id number] Social History Date Type Detail Facility Tobacco smoking status Ex-smoker (finding ) [facility] Sex Assigned At Male [facility] Clinical Note 04-13-2023 Note Date & Type Note Facility 04-13-2023 Note Sinus rhythm Probable left atrial enlargement Anteroseptal infarct, age indeterminate Electronic Signature: NEVILLE UNDERWOOD MD 04/13/2023 16:41:28 [facility] Evaluation + Plan note Note Date & Type Note Facility Evaluation + Plan note No data available for this section [facility] Hospital Discharge instructions Note Date & Type Note Facility Hospital Discharge instructions No data available for this section [facility] Progress note Note Date & Type Note Facility Progress note No data available for this section [facility] Summary Purpose Family History No Family History Records Found No data available for this section No Family History Records Found Advance Directives No Advanced Directives Records FoundNo Advanced Directives Records Found Procedure Findings Note Operative Note (Enc) (GENSWS ) Progress Notes: Thomas Galaviz MD 04/01/2018 9:54 AM Signed OPERATIVE NOTATION FOR [facility] SURGICAL PROCEDURE. March 17, 2018 Kirk Segura 1950 [id number] male PROCEDURE: EGD WITH BIOPSY - [id number] SURGEON: Baljit Galaviz M.D. FACS DIALYSIS CHIEF EQUIPMENT TECHNICIAN: None DEPT: [facility] PROVIDER: [id number] Galaviz MD POS: [id number] DIAGNOSIS: (K92.0) Hematemesis, presence of nausea not [...] Clean Contaminated Operative note dictated in the [facility] dictation sys (more content not included)... Additional Source Comments (unrecognized sect ion and content) No Status Records FoundNo Status Records Found INFORMATION SOURCE (unrecogn ized section and content) DATE CREATED AUTHOR AUTHOR'S ORGANIZ ATION 04/14/2023 [facility] ([place]) Patient Care team informatio n (unrecognized section and content) Care Team Personnel Name: THOMAS LANZA JR, MD Member Role: Primary Care Physician Address: Address: [address] [place] [id number] Care Team Related Persons Name: URIEL SEGURA Address: Home [address] [place] [address] FOR RECORDS PERTAINING TO PATIENTS WHO ARE [...] BE BASED ON THE PRIMARY CLINICAL RECORDS. [facility] [employer] [facility]. provides no warranty or guarantee of the accuracy or completeness of information in this document.
[2023-04-17 14:15] LABS: Absolute Lymphocyte Count 1.79 X10^3/uL (0.83-4.51); Absolute Neutrophil Count 7.5 X10^3/uL (2.0-7.7); Basophil# 0.04 X10^3/uL; Basophil% 0.4 % (0-1); Eosinophil# 0.04 X10^3/uL; Eosinophils% 0.4 % (0-5); Hematocrit 49.4 % (40-54); Hemoglobin 16.5 g/dL (13.0-16.5); Lymphocyte # 1.79 X10^3/ul (0.83-4.51); Lymphocyte % 16.9 % (19-41); Mean Corp Hgb Conc 33.4 g/dL (32-36); Mean Corpuscular Hgb 32.8 pg (27.0-32.0); Mean Corpuscular Volume 98.2 fL (80-94); Mean Platelet Vol. 10.2 fl (6.2-12.0); Monocyte# 1.18 X10^3/uL; Monocyte% 11.2 % (0-10); NRBC Flagged by Analyzer 0 % (0-5); Neutrophil # 7.48 X10^3/uL (2.7-7.7); Neutrophil % 70.7 % (47-70); Platelet Count 175 K/mm3 (150-450); RBC Distribution Width CV 13.3 % (11.6-14.6); RBC Distribution Width SD 47.6 fl (35.1-43.9); Red Blood Count 5.03 M/mm3 (4.6-6.2); White Blood Count 10.6 K/mm3 (4.4-11.0)
[2023-04-17] MEDS: 0.9% Normal Saline (1000mL) 1,000 ML 1000 ML IV (14:18)
[2023-04-17] MEDS: Metoclopramide 10 MG/2 ML Vial IV (14:19)
[2023-04-17] MEDS: DiphenhydrAMINE 50 MG/ML Syringe 25 MG IV (14:19)
[2023-04-17 14:53] LABS: AST(SGOT) 42 U/L (15-37); Alanine Aminotransfer ALT/SGPT 29 U/L (16-61); Albumin, Serum 3.8 g/dL (3.2-5.0); Alkaline Phosphatase 62 U/L (45-117); Anion Gap 9 (5-15); BUN 14 mg/dL (7-18); BUN/Creat Ratio 11.6 RATIO (10-20); Bilirubin, Direct 0.16 mg/dL (0.00-0.30); Calcium,Total 8.6 mg/dL (8.5-10.1); Chloride 100 mmol/L (98-107); Creatinine, Serum 1.21 mg/dL (0.70-1.30); EST Glomerular Filtration Rate 62 mL/min (>60); Est Glom Filt Rate - Afr Amer 75 mL/min (>60); Estimated Creatinine Clearance 68.57 ml/min; Globulin 4.1 g/dL (2.2-4.2); Glucose 97 mg/dL (74-106); Potassium 3.9 mmol/L (3.5-5.1); Protein, Total 7.9 g/dL (6.4-8.2); Sodium Level 137 mmol/L (136-145)
[2023-04-17 15:10] LABS: Mucous, Urine 0 SEEN /hpf (<or=2+)
[2023-04-17 15:16] LABS: Color, Urine Yellow (Yellow); Glucose, Dipstick Normal (Normal); Ketone-Dipstick Negative (Negative); Leukocyte Esterase-Dipstick 25 /ul (Negative); Nitrite-Dipstick Positive (Negative); Occult Blood-Urine 250 /ul (Negative); Protein-Dipstick 30 mg/dl (Negative); Specific Gravity, Urine 1.015 (1.002-1.030); Urine Bilirubin Dipstick Negative (Negative); Urine Clarity Clear (Clear); Urine Urobilinogen Normal (Normal)
[2023-04-17] MEDS: Haloperidol Lactate 5 MG/ML Vial 2 MG IV (15:26)
[2023-04-17] MEDS: 0.9% Normal Saline (1000mL) 1,000 ML 150 ML IV ×2 (15:26→21:10)
[2023-04-17 15:27] LABS: Amorphous Sediment 1+ PHOS; Bacteria RARE /hpf (None Seen); Red Blood Cells-Urine 50-100 SEEN /hpf (0-5); Squamous Epithelial Cells - UA 0-5 SEEN /hpf (0-5); White Blood Cells 0-5 SEEN /hpf (0-5)
[2023-04-17] MEDS: Labetalol (Prefilled) 20 MG/4 ML 10 MG IV (16:02)
[2023-04-17] MEDS: proMETHazine 25 MG/ML Syringe 12.5 MG IM ×2 (16:14→20:30)
--- NOTE | 2023-04-17 16:23 | PCM.HP.STD ---
HPI - General General Date of Admission: 04/17/23 Date of Service: 04/17/23 Chief Complaint: Acute nausea vomiting HPI Narrative KIRK TELLO, is a 72 M who presents to the ED with concerns regarding worsening nausea and vomiting. This is his second presentation in the last 3 days to the ED. His past medical concern include hypertension [lisinopril 20 mg twice daily], GERD on pantoprazole 40 mg daily, COPD on albuterol 90, benign prostatic hyperplasia on tamsulosin 0.4 mg He showed up on 04/15/2023 following a ureteral stent with lithotripsy that morning with similar concerns, it was were treated symptomatically in the ED This morning he has been feeling persistent nausea without any vomiting since around 11:00. He had sausage, biscuit with gravy for breakfast and has been symptoms since then. After his presentation to the ED he has received 1 dose of Haldol, labetalol, metoclopramide, promethazine but he has persistent nausea He has been intentionally trying to lose weight by cutting out fast food and sweets. Has chronic constipation related to decreased hydration. Uses hemp for chronic pain but last use was about a month back. [facility] Medical History Chest wall contusion (~12/18/20) Encounter for screening for COVID-19 HTN (hypertension) Hyperthyroidism SOB (shortness of breath) Home Medications lisinopril 20 mg tablet 20 mg PO BID blood pressure 03/16/18 [History Last Taken 03/07/19] pantoprazole 40 mg tablet,delayed release 40 mg PO BID reflux 09/07/19 [History Last Taken Unknown] albuterol sulfate 90 mcg/actuation aerosol inhaler (ProAir HFA) 1 - 2 puff inhalation Q6H PRN shortness of breath or wheezing #8.5 grams 05/24/20 [Rx Last Taken Unknown] ciprofloxacin HCl 500 mg tablet 500 mg PO BID 04/15/23 [History Last Taken 04/15/23] ibuprofen 600 mg tablet 600 mg PO Q6H PRN pain 04/15/23 [History Last Taken Unknown] lorazepam 0.5 mg tablet 0.5 mg PO BID 04/15/23 [History Last Taken Unknown] phenazopyridine 100 mg tablet 100 mg PO TID PRN pain 04/15/23 [History Last Taken Unknown] tamsulosin 0.4 mg capsule 0.4 mg PO QHS 04/15/23 [History Last Taken Unknown] doxepin 10 mg capsule 10 mg PO QHS PRN PRN insomnia 04/17/23 [History Last Taken Unknown] Allergy/AdvReac Type Severity Reaction Status Date / Time amoxicillin Allergy doesnt Verified 04/17/23 13:43 rememeber fluoxetine [From Prozac] AdvReac Other Verified 04/17/23 13:43 Family History Mother Myocardial infarction Father Cancer Surgical History History of eye surgery Social History Smoking Status: Former smoker alcohol intake: current Alcohol type: hard liquor ROS Review of Systems ROS Unobtainable: Denies due to encephalopathy, due to endotracheal tube, due to mental condition, due to mental status or other Constitutional Constitutional: Reports anorexia and change in weight Eyes Eyes: Denies blurry vision, change in eye color, change in vision, discharge from eye(s), double vision, erythema, eye pain, loss of vision or other ENT HEENT: Denies abnormal hearing, dysphagia, ear pain, epistaxis, headache(s), hearing loss, nasal congestion, nasal discharge, post nasal drip, sinus pressure, sore throat or other Cardiovascular Cardiovascular: Denies chest pain, claudication, dyspnea on exertion, edema, lightheadedness, orthopnea, palpitations, paroxysmal nocturnal dyspnea, rapid heart rate, syncope or other Respiratory/Chest Respiratory/Chest: Denies cough, dyspnea, excessive phlegm production, hemoptysis, productive cough, shortness of breath at rest, shortness of breath with exertion, wheezing or other Gastrointestinal Gastrointestinal: Reports nausea; Denies abdominal pain, coffee ground emesis, constipation, diarrhea, dyspepsia, hematemesis, hematochezia, loose stools, melena, vomiting or other Genitourinary Genitourinary: Denies burning urination, difficulty urinating, dysuria, hematuria, nocturia, urinary frequency, urinary hesitancy, urinary incontinence, urinary urgency or other Musculoskeletal Musculoskeletal: Denies arthralgias, back pain, joint pain, joint stiffness, joint swelling, myalgias, neck pain or other Neurologic Neurologic: Denies abnormal gait, abnormal speech, confusion, disequilibrium, dizziness, focal weakness, headache(s), numbness, paresthesias, seizure-like activity, seizures, syncope, tingling, tremor(s) or other Psychiatric Psychiatric: Denies anxiety, depression, homicidal ideation, suicidal ideation or other Endocrine Endocrinology: Denies change in body appearance, cold intolerance, excessive sweating, heat intolerance, polydipsia, polyuria or other Hematologic/Lymphatic Hematologic/Lymphatic: Denies anemia, easy bleeding, easy bruising, lymphadenopathy or other Vital Signs Vital Signs Vital Signs: 04/17/23 13:44 04/17/23 15:25 04/17/23 15:53 Temperature 97.3 F L Temperature Source Temporal Pulse Rate 94 81 79 Respiratory Rate 18 24 H 22 H Blood Pressure 193/96 H 197/98 H 199/107 H Blood Pressure Mean 128 131 137 Pulse Ox 94 94 92 Oxygen Delivery Method Room Air Room Air Room Air Weight Weight: 272 lb 11.2 oz Body Mass Index (BMI) 41.4 Physical Exam Const alert and oriented x3 Constitutional Narrative: Obese HEENT normocephalic Resp normal respiratory effort Cardio regular rate and regular rhythm GI normal to inspection, nondistended, normoactive bowel sounds Extremity normal to inspection and full ROM Neuro oriented x3 Psych affect normal Results Medical Records Data Attestation: I reviewed the patient's medical records Lab / Micro Data Attestation: I reviewed the patient's lab results. 04/17/23 14:05 04/17/23 14:05 Labs: Laboratory Results - last 24 hr 04/17/23 14:05: WBC 10.6, RBC 5.03, Hgb 16.5, Hct 49.4, MCV 98.2 H, MCH 32.8 H, MCHC 33.4, RDW Std Deviation 47.6 H, RDW Coeff of [place] 13.3, Plt Count 175, MPV 10.2, Immature Gran % (Auto) 0.400, Neut % (Auto) 70.7 H, Lymph % (Auto) 16.9 L, [place] % (Auto) 11.2 H, Eos % (Auto) 0.4, Baso % (Auto) 0.4, Absolute Neuts (auto) 7.5, Absolute Lymphs (auto) 1.79, Nucleated RBC % 0, Sodium 137, Potassium 3.9, Chloride 100, Carbon Dioxide 28.0, Anion Gap 9, BUN 14, Creatinine 1.21, Estim Creat Clear Calc 68.57, Est GFR (MDRD) Af Amer 75, Est GFR (MDRD) Non-Af 62, BUN/Creatinine Ratio 11.6, Glucose 97, Calcium 8.6, Total Bilirubin 0.90, Direct Bilirubin 0.16, AST 42 H, ALT 29, Alkaline Phosphatase 62, Total Protein 7.9, Albumin 3.8, Globulin 4.1 04/17/23 15:02: Urine Color Yellow, Urine Clarity Clear, Urine pH 8.0, Ur Specific [place] 1.015, Urine Protein 30 H, Urine Glucose (UA) Normal, Urine Ketones Negative, Urine Occult Blood 250 H, Urine Nitrite Positive H, Urine Bilirubin Negative, Urine Urobilinogen Normal, Ur Leukocyte Esterase 25 H, Urine RBC 50-100 SEEN, Urine WBC 0-5 SEEN, Ur Squamous Epith Cells 0-5 SEEN, Amorphous Sediment 1+ PHOS, Urine Bacteria RARE, Urine Mucus 0 SEEN ABG Data Attestation: I personally reviewed and interpreted this ABG as follows: Assessment & Plan Assessment/Plan (1) Nausea: PLAN: Plan 72-year-old gentleman with history of hypertension, degenerative disc disease, prior GI bleed, bilateral pulmonary embolism, COPD, hypertension, hypothyroidism, GERD presents to the ED with persistent nausea vomiting and a blood pressure of 193/96. 1. Persistent nausea vomiting: Likely related to uncontrolled blood pressure. Other differentials include underlying gastroparesis/peptic ulcer disease/H. pylori infection. Marijuana hyperemesis syndrome is less likely as he says his last use was about a month back. -IV Zofran 4 mg as needed -Encourage p.o. water intake -Clear liquid diet for now, gastroprotective diet -Gastroenterology consult tomorrow morning for inpatient EGD -Avoid NSAIDs -Continue pantoprazole, will give Pepcid as needed -A1c levels to assess for diabetic gastroparesis -MiraLAX 17 g twice daily 2. Hypertension: -Continue losartan 20 mg twice daily -IV labetalol 10 mg as needed for systolic pressures greater than 180 and Heart rate greater than 60 3. COPD: Stable for now, continue to monitor 4. Pulmonary embolism: Not on any anticoagulation, continue to monitor 5. Benign prostatic hyperplasia: Tamsulosin 0.4 mg 6. DVT prophylaxis: Encourage mobilization, possibly short stay in the hospital and does not treat prophylactic anticoagulation Charges/Coding Visit Charges Inpatient E&M: 44430 Init Hosp L2
[2023-04-17] MEDS: Ceftriaxone 1 GM/50 ML BAG IV (16:34)
--- NOTE | 2023-04-17 16:42 | NURSING ---
MED SURG PERALES INTRACTABLE VOMITING
--- OUTSIDE RECORDS SUMMARY | 2023-04-17 17:07 | XMS RPT_ITS | CCD ---
Author Name Unknown Address [address] [place] [address] Organization [facility] Care Team Providers Care Geoscience Technician Name Role Phone POOL MISTRY, DR THOMAS Nelson JR Primary Care Physician ABHAY MISTRY, DR JASSON WHITE Attending Lawrence LANZA MD, DR THOMAS Nelson JR Primary Care Lawrence high Allergies Allergy Classification Reported Allergen(s) Allergy Type Date of Onset Reaction(s) Facility (1 source) Amoxicillin; Translations: [amoxicillin] Drug Allergy [place] Medications Current Medications Medication Drug Class(es) Dates [...] Patient encounter procedure DR JASSON BLANK MD [facility] Procedures Date Procedure Procedure Detail Performing Clinician Start: 03-24-[address] JASSON FISH MD Arthroscopy knee diagnostic w/wo synovial bx spx DR JASSON BLANK MD Immunizations Immunization Date Immunization Notes Care Provider Mray kramer 07-10-2013 pneumococcal polysaccharide vaccine, [address] JASSON BLANK MD [facility] Payers Date Payer Category Payer Unknown [id number] 1950 Unknown [id number] Social History Date Type Detail Facility Tobacco smoking status Ex-smoker (finding ) [facility] Sex Assigned At Male [facility] Clinical Note 04-13-2023 Note Date & Type Note Facility 04-13-2023 Note Sinus rhythm Probable left atrial enlargement Anteroseptal infarct, age indeterminate Electronic Signature: NEVILLE UNDERWOOD MD 04/13/2023 16:41:28 [facility] Evaluation + Plan note Note Date & Type Note Facility Evaluation + Plan note No data available for this section [facility] Discharge instructions Note Date & Type Note Facility Hospital Discharge instructions No data available for this section [facility] Progress note Note Date & Type Note Facility Progress note No data available for this section [facility] Summary Purpose Family History No Family History Records Found No data available for this section No Family History Records Found Advance Directives No Advanced Directives Records FoundNo Advanced Directives Records Found Procedure Findings Note Operative Note (Enc) (GENSWS ) Progress Notes: Thomas Galaviz MD 04/01/2018 9:54 AM Signed OPERATIVE NOTATION FOR [facility] SURGICAL PROCEDURE. March 17, 2018 Kirk Segura 1950 [id number] male PROCEDURE: EGD WITH BIOPSY - [id number] SURGEON: Baljit Galaviz M.D. FACS DIRECTOR FRANCHISE SALES: None DEPT: [facility] PROVIDER: [id number] Galaviz MD POS: [id number] DIAGNOSIS: (K92.0) Hematemesis, presence of nausea not [...] Clean Contaminated Operative note dictated in the [facility] dictation sys (more content not included)... Additional Source Comments (unrecognized sect ion and content) No Status Records FoundNo Status Records Found INFORMATION SOURCE (unrecogn ized section and content) DATE CREATED AUTHOR AUTHOR'S ORGANIZ ATION 04/14/2023 [facility] ([place]) Patient Care team informatio n (unrecognized section and content) Care Team Personnel Name: THOMAS LANZA JR, MD Member Role: Primary Care Physician Address: Address: [address] [place] [id number] Care Team Related Persons Name: URIEL SEGURA Address: Home [address] [place] [address] FOR RECORDS PERTAINING TO PATIENTS WHO ARE [...] BE BASED ON THE PRIMARY CLINICAL RECORDS. [facility]. provides no warranty or guarantee of the accuracy or completeness of information in this document.
[2023-04-17] MEDS: hydrALAZINE 20 MG/ML Vial 10 MG IV (17:42)
[2023-04-17 18:04] LABS: Hemoglobin A1c 5.5 % (3.8-5.6)
[2023-04-17] MEDS: Labetalol (Prefilled) 20 MG/4 ML IV (18:46)
[2023-04-17] MEDS: Ondansetron 4 MG/2 ML Vial IV (21:11)
--- OUTSIDE RECORDS SUMMARY | 2023-04-17 21:24 | XMS RPT_ITS | CCD ---
Author Name Unknown Address [address] [place] [address] Organization [facility] Care Team Providers Care Retail Asset Protection Specialist Name Role Phone POOL MISTRY, DR THOMAS Nelson JR Primary Care Physician ABHAY MISTRY, DR JASSON WHITE Attending Lawrence LANZA MD, DR THOMAS Nelson JR Primary Care Lawrence high Allergies Allergy Classification Reported Allergen(s) Allergy Type Date of Onset Reaction(s) Facility (1 source) Amoxicillin; Translations: [amoxicillin] Drug Allergy [facility] Medications Current Medications Medication Drug Class(es) [...] Patient encounter procedure DR JASSON BLANK MD [facility] Procedures Date Procedure Procedure Detail Performing Clinician Start: 03-24-[address] JASSON FISH MD Arthroscopy knee diagnostic w/wo synovial bx spx DR JASSON BLANK MD Immunizations Immunization Date Immunization Notes Care Provider Mary kramer 07-10-2013 pneumococcal polysaccharide vaccine, [address] JASSON BLANK MD [facility] Payers Date Payer Category Payer Unknown [id number] 1950 Unknown [id number] Social History Date Type Detail Facility Tobacco smoking status Ex-smoker (finding ) [facility] Sex Assigned At Male [facility] Clinical Note 04-13-2023 Note Date & Type Note Facility 04-13-2023 Note Sinus rhythm Probable left atrial enlargement Anteroseptal infarct, age indeterminate Electronic Signature: NEVILLE UNDERWOOD MD 04/13/2023 16:41:28 [facility] Evaluation + Plan note Note Date & Type Note Facility Evaluation + Plan note No data available for this section [facility] Hospital Discharge instructions Note Date & Type Note Facility Hospital Discharge instructions No data available for this section [facility] Progress note Note Date & Type Note Facility Progress note No data available for this section [facility] Summary Purpose Family History No Family History Records Found No data available for this section No Family History Records Found Advance Directives No Advanced Directives Records FoundNo Advanced Directives Records Found Procedure Findings Note Operative Note (Enc) (GENSWS ) Progress Notes: Thomas Galaviz MD 04/01/2018 9:54 AM Signed OPERATIVE NOTATION FOR [facility] SURGICAL PROCEDURE. March 17, 2018 Kirk Segura 1950 [id number] male PROCEDURE: EGD WITH BIOPSY - [id number] SURGEON: Baljit Galaviz M.D. FACS EXPEDITION SUPERVISOR: None DEPT: MAYRA PROVIDER: [id number] Galaviz MD POS: [id number] DIAGNOSIS: (K92.0) Hematemesis, presence of nausea not [...] Clean Contaminated Operative note dictated in the [facility] dictation sys (more content not included)... Additional Source Comments (unrecognized sect ion and content) No Status Records FoundNo Status Records Found INFORMATION SOURCE (unrecogn ized section and content) DATE CREATED AUTHOR AUTHOR'S ORGANIZ ATION 04/14/2023 [facility] ([place]) Patient Care team informatio n (unrecognized section and content) Care Team Personnel Name: THOMAS LANZA JR, MD Member Role: Primary Care Physician Address: Address: [address] [place] [id number] Care Team Related Persons Name: URIEL SEGURA Address: Home [address] [place] [address] FOR RECORDS PERTAINING TO PATIENTS WHO ARE [...] BE BASED ON THE PRIMARY CLINICAL RECORDS. [facility] [employer] [facility]. provides no warranty or guarantee of the accuracy or completeness of information in this document.
--- OUTSIDE RECORDS SUMMARY | 2023-04-17 21:24 | XMS RPT_ITS | CCD ---
Author Name Unknown Address [address] [place] [address] Organization [facility] Care Team Providers Care Corporate Compliance Manager Name Role Phone POLO MISTRY, DR THOMAS Nelson JR Primary Care Physician ABHAY MISTRY, DR JASSON WHITE Attending Lawrence LANZA MD, DR THOMAS Nelson JR Primary Care Lawrence high Allergies Allergy Classification Reported Allergen(s) Allergy Type Date of Onset Reaction(s) Facility (1 source) Amoxicillin; Translations: [amoxicillin] Drug Allergy [facility] Medications Current Medications Medication Drug [...] Patient encounter procedure DR JASSON BLANK MD [facility] Procedures Date Procedure Procedure Detail Performing Clinician Start: 03-24-[address] JASSON FISH MD Arthroscopy knee diagnostic w/wo synovial bx spx DR JASSON BLANK MD Immunizations Immunization Date Immunization Notes Care Provider Mary kramer 07-10-2013 pneumococcal polysaccharide vaccine, [address] JASSON BLANK MD [facility] Payers Date Payer Category Payer Unknown [id number] 1950 Unknown [id number] Social History Date Type Detail Facility Tobacco smoking status Ex-smoker (finding ) [facility] Sex Assigned At Male [facility] Clinical Note 04-13-2023 Note Date & Type Note Facility 04-13-2023 Note Sinus rhythm Probable left atrial enlargement Anteroseptal infarct, age indeterminate Electronic Signature: NEVILLE UNDERWOOD MD 04/13/2023 16:41:28 [facility] Evaluation + Plan note Note Date & Type Note Facility Evaluation + Plan note No data available for this section [facility] Hospital Discharge instructions Note Date & Type Note Facility Hospital Discharge instructions No data available for this section [facility] Progress note Note Date & Type Note Facility Progress note No data available for this section [facility] Summary Purpose Family History No Family History Records Found No data available for this section No Family History Records Found Advance Directives No Advanced Directives Records FoundNo Advanced Directives Records Found Procedure Findings Note Operative Note (Enc) (GENSWS ) Progress Notes: Thomas Galaviz MD 04/01/2018 9:54 AM Signed OPERATIVE NOTATION FOR [facility] SURGICAL PROCEDURE. March 17, 2018 Kirk Segura 1950 [id number] male PROCEDURE: EGD WITH BIOPSY - [id number] SURGEON: Baljit Galaviz M.D. FACS CULINARY SPECIALIST: None DEPT: MAYRA PROVIDER: [id number] Galaviz MD POS: [id number] DIAGNOSIS: (K92.0) Hematemesis, presence of nausea not [...] Clean Contaminated Operative note dictated in the [facility] dictation sys (more content not included)... Additional Source Comments (unrecognized sect ion and content) No Status Records FoundNo Status Records Found INFORMATION SOURCE (unrecogn ized section and content) DATE CREATED AUTHOR AUTHOR'S ORGANIZ ATION 04/14/2023 [facility] ([place]) Patient Care team informatio n (unrecognized section and content) Care Team Personnel Name: THOMAS LANZA JR, MD Member Role: Primary Care Physician Address: Address: [address] [place] [id number] Care Team Related Persons Name: URIEL SEGURA Address: Home [address] [place] [address] FOR RECORDS PERTAINING TO PATIENTS WHO ARE [...] BE BASED ON THE PRIMARY CLINICAL RECORDS. [facility] [employer] [facility]. provides no warranty or guarantee of the accuracy or completeness of information in this document.
[2023-04-18] MEDS: 0.9% Normal Saline (1000mL) 1,000 ML 150 ML IV ×2 (03:51→11:41)
[2023-04-18 03:53] VITALS: BP 157/83; PULSE 80; RESP 20; TEMP 36.8; O2SAT 96
[2023-04-18 07:11] LABS: Absolute Lymphocyte Count 2.65 X10^3/uL (0.83-4.51); Absolute Neutrophil Count 4.7 X10^3/uL (2.0-7.7); Basophil# 0.04 X10^3/uL; Basophil% 0.4 % (0-1); Eosinophil# 0.05 X10^3/uL; Eosinophils% 0.6 % (0-5); Hemoglobin 14.5 g/dL (13.0-16.5); Lymphocyte # 2.65 X10^3/ul (0.83-4.51); Lymphocyte % 29.4 % (19-41); Mean Corpuscular Hgb 32.2 pg (27.0-32.0); Mean Corpuscular Volume 97.8 fL (80-94); Mean Platelet Vol. 10.6 fl (6.2-12.0); Monocyte% 16.6 % (0-10); NRBC Flagged by Analyzer 0 % (0-5); Neutrophil # 4.74 X10^3/uL (2.7-7.7); Neutrophil % 52.7 % (47-70); Platelet Count 173 K/mm3 (150-450); RBC Distribution Width CV 13.2 % (11.6-14.6); RBC Distribution Width SD 46.7 fl (35.1-43.9)
[2023-04-18 08:10] LABS: ALB/GLOB Ratio 0.9 RATIO (0.9-2.4); AST(SGOT) 27 U/L (15-37); Alanine Aminotransfer ALT/SGPT 23 U/L (16-61); Albumin, Serum 3.1 g/dL (3.2-5.0); Alkaline Phosphatase 53 U/L (45-117); Anion Gap 6 (5-15); BUN 9 mg/dL (7-18); BUN/Creat Ratio 9.3 RATIO (10-20); Bilirubin, Direct 0.24 mg/dL (0.00-0.30); Calcium,Total 7.7 mg/dL (8.5-10.1); Chloride 104 mmol/L (98-107); Creatinine, Serum 0.97 mg/dL (0.70-1.30); EST Glomerular Filtration Rate 81 mL/min (>60); Est Glom Filt Rate - Afr Amer 98 mL/min (>60); Estimated Creatinine Clearance 84.22 ml/min; Globulin 3.5 g/dL (2.2-4.2); Glucose 83 mg/dL (74-106); Magnesium 1.6 mg/dL (1.6-2.6); Potassium 2.9 mmol/L (3.5-5.1); Protein, Total 6.6 g/dL (6.4-8.2); Sodium Level 139 mmol/L (136-145); Thyroid Stim Hormone (TSH) 3.29 uIU/mL (0.358-3.74)
[2023-04-18] MEDS: Ondansetron 4 MG/2 ML Vial IV (08:18)
[2023-04-18 08:25] VITALS: BP 167/78; PULSE 75; RESP 14; TEMP 36.3; O2SAT 95
[2023-04-18 09:00] VITALS: O2SAT 96
[2023-04-18 09:23] VITALS: BP 167/78; PULSE 75
[2023-04-18] MEDS: hydrALAZINE 20 MG/ML Vial 10 MG IV (09:23)
[2023-04-18] MEDS: LORazepam 0.5 MG Tablet PO (09:23)
[2023-04-18] MEDS: Pantoprazole Sodium 40 MG Tablet PO (09:51)
[2023-04-18] MEDS: Potassium Chloride Oral Tablet 20 MEQ 60 MEQ PO ×2 (09:51→16:48)
[2023-04-18] MEDS: Lisinopril 20 MG Tablet PO (09:51)
[2023-04-18] MEDS: Famotidine 20 MG Tablet PO (09:51)
--- NOTE | 2023-04-18 12:13 | PCM.DC.SUM ---
Providers Date of Admission: 04/17/23 Date of Discharge: 04/18/23 Primary Care Physician: Dr. Alfred Bailey, Consultations 04/17/23 17:17 Consult: Gastroenterology Routine Consulting Provider: [facility] Reason for Consult: Persistent nausea and vomiting EMERGENT Consult: No MD Notified: No Date Notified: 04/17/23 Time Notified: 17:18 Reason For Visit: INTRACTABLE N/V Diagnosis Discharge Diagnosis (1) Nausea: Status: Acute Code(s): R11.0 - Nausea Medications at Discharge Home Medications lisinopril 20 mg tablet 20 mg PO BID blood pressure 03/16/18 pantoprazole 40 mg tablet,delayed release 40 mg PO BID reflux 09/07/19 albuterol sulfate 90 mcg/actuation aerosol inhaler (ProAir HFA) 1 - 2 puff inhalation Q6H PRN shortness of breath or wheezing #8.5 grams 05/24/20 ciprofloxacin HCl 500 mg tablet 500 mg PO BID 04/15/23 ibuprofen 600 mg tablet 600 mg PO Q6H PRN pain 04/15/23 lorazepam 0.5 mg tablet 0.5 mg PO BID 04/15/23 phenazopyridine 100 mg tablet 100 mg PO TID PRN pain 04/15/23 tamsulosin 0.4 mg capsule 0.4 mg PO QHS 04/15/23 doxepin 10 mg capsule 10 mg PO QHS PRN PRN insomnia 04/17/23 Hospital Course Operations None Procedures None Summary of Care Provided Minutes Spent on Discharge: 30 Hospital Course: Mr. Segura is a 72-year-old white male who presented to the emergency department on 04/17/2023 due to persistent nausea and vomiting. He initially presented on 04/15/2023 and was discharged home. At that time, he presented shortly after having a ureteral stent placed with lithotripsy on the day of presentation. He had been n.p.o. throughout the night and was feeling fine however a few hours after getting home he had nausea but no vomiting. He had a bowel movement while in the waiting room and his workup was overall unremarkable. He was given IV Zofran and some IV fluids and was able to be discharged home in stable condition. However, he represented to the emergency department on 04/17/2023 for recurrence of the nausea. He felt well when he left the hospital 2 days previous but stated he developed some nausea vomiting when he got home. He ultimately required a dose of Haldol for nausea. He did report marijuana use with his last smoked temper being about 2 weeks prior to presentation. Given recurrence request for admission was made and he was placed on the medical floor. He was given antiemetics, IV fluids, and a bowel regimen. On the a.m. of 04/18/2023 at the time of my evaluation he was walking around the room and tolerated breakfast without difficulty. He was asking if he could go home. I indicated that he tolerated a regular food at breakfast he was able to go home in stable condition. He was found to have hypokalemia which was replaced and on repeat had resolved. I have asked him to follow-up with his primary care physician within the next 2 weeks and he was discharged home in stable condition on 04/18/2023. Discharge diagnoses: Intractable nausea vomiting-resolved GERD Cannabis use disorder Recent ureteral stent placement BPH with obstruction History of PE COPD HTN Physical Exam Narrative Patient is walking around the room in his hospital gown and states he feeling well. He wants to go home. We discussed that if he can tolerate food we can send him home. He states he is getting bored and feeling well. Const alert, oriented x3, no apparent distress, healthy appearing and well nourished; Negative for average body habitus or no limitations Constitutional Narrative: Morbidly obese, elderly, white male, walking around room in his gown, appears comfortable nontoxic General Appearance: cooperative, comfortable, well kempt and well developed Orientation / Consciousness: awake, oriented to person, oriented to place and oriented to time Exam Limitations: no limitations Nutritional Appearance: morbidly obese HEENT normocephalic, head/scalp atraumatic and moist oral mucous membranes; Negative for hearing grossly normal bilaterally HEENT Narrative: Moderate hearing loss, Mallampati 2-3, no thrush Eyes PERRL, EOMs intact bilaterally and conjunctivae normal Eyes Narrative: No scleral icterus Neck no lymphadenopathy and supple Neck Narrative: Trachea midline, no thyroid enlargement Resp normal respiratory effort, no retractions, no use of accessory muscles and clear to auscultation bilaterally Auscultation: Negative for rales, rhonchi or wheezes Cardio regular rate, regular rhythm, S1 normal heart sound, S2 normal heart sound, no murmurs, no rub, no gallops and no clicks GI normal to inspection, nondistended, normoactive bowel sounds, soft to palpation, non-tender and non-distended Extremity no clubbing, cyanosis or edema Extremity Narrative: Pedal pulses are 2+ Skin no rashes or lesions noted, no wounds, skin turgor normal and no jaundice Neuro oriented x3, moves all extremities and no focal motor deficits Neuro Narrative: Gait is normal, no signs of significant weakness Speech: speech normal Psych affect normal Psych Narrative: Very pleasant, interacts appropriately Weight / BMI Weight Weight: 120.202 kg Body Mass Index (BMI) 40.3 ABG / Lab / Microbiology Data 04/18/23 06:23 04/18/23 06:23 Laboratory: Laboratory Results - last 24 hr 04/17/23 14:05: WBC 10.6, RBC 5.03, Hgb 16.5, Hct 49.4, MCV 98.2 H, MCH 32.8 H, MCHC 33.4, RDW Std Deviation 47.6 H, RDW Coeff of [place] 13.3, Plt Count 175, MPV 10.2, Immature Gran % (Auto) 0.400, Neut % (Auto) 70.7 H, Lymph % (Auto) 16.9 L, Thomas % (Auto) 11.2 H, Eos % (Auto) 0.4, Baso % (Auto) 0.4, Absolute Neuts (auto) 7.5, Absolute Lymphs (auto) 1.79, Nucleated RBC % 0, Sodium 137, Potassium 3.9, Chloride 100, Carbon Dioxide 28.0, Anion Gap 9, BUN 14, Creatinine 1.21, Estim Creat Clear Calc 68.57, Est GFR (MDRD) Af Amer 75, Est GFR (MDRD) Non-Af 62, BUN/Creatinine Ratio 11.6, Glucose 97, Hemoglobin A1c 5.5, Calcium 8.6, Total Bilirubin 0.90, Direct Bilirubin 0.16, AST 42 H, ALT 29, Alkaline Phosphatase 62, Total Protein 7.9, Albumin 3.8, Globulin 4.1 04/17/23 15:02: Urine Color Yellow, Urine Clarity Clear, Urine pH 8.0, Ur Specific [place] 1.015, Urine Protein 30 H, Urine Glucose (UA) Normal, Urine Ketones Negative, Urine Occult Blood 250 H, Urine Nitrite Positive H, Urine Bilirubin Negative, Urine Urobilinogen Normal, Ur Leukocyte Esterase 25 H, Urine RBC 50-100 SEEN, Urine WBC 0-5 SEEN, Ur Squamous Epith Cells 0-5 SEEN, Amorphous Sediment 1+ PHOS, Urine Bacteria RARE, Urine Mucus 0 SEEN 04/18/23 06:23: WBC 9.0, RBC 4.50 L, Hgb 14.5, Hct 44.0, MCV 97.8 H, MCH 32.2 H, MCHC 33.0, RDW Std Deviation 46.7 H, RDW Coeff of [place] 13.2, Plt Count 173, MPV 10.6, Immature Gran % (Auto) 0.300, Neut % (Auto) 52.7, Lymph % (Auto) 29.4, Thomas % (Auto) 16.6 H, Eos % (Auto) 0.6, Baso % (Auto) 0.4, Absolute Neuts (auto) 4.7, Absolute Lymphs (auto) 2.65, Nucleated RBC % 0, Sodium 139, Potassium 2.9 L, Chloride 104, Carbon Dioxide 29.0, Anion Gap 6, BUN 9, Creatinine 0.97, Estim Creat Clear Calc 84.22, Est GFR (MDRD) Af Amer 98, Est GFR (MDRD) Non-Af 81, BUN/Creatinine Ratio 9.3 L, Glucose 83, Calcium 7.7 L, Phosphorus 3.0, Magnesium 1.6, Total Bilirubin 0.70, Direct Bilirubin 0.24, AST 27, ALT 23, Alkaline Phosphatase 53, Total Protein 6.6, Albumin 3.1 L, Globulin 3.5, Albumin/Globulin Ratio 0.9, TSH 3.29 Meaningful Use Info Meaningful Use Diagnoses (Choose all that apply): None applicable Discharge Plan Admission Admit Date/Time: 04/17/23 19:48 Primary Reason for Your Visit: Nausea and vomiting Attending Provider: Nessa Mehta Primary Care Provider: Alfred Bailey Consulting Providers: Grisel Isaac Discharge Orders/Prescriptions Prescriptions: Continued albuterol sulfate [ProAir HFA] 90 mcg/actuation HFA aerosol inhaler 1 - 2 puff INHALATION Q6H PRN (Reason: shortness of breath or wheezing) Qty: 8.5 1RF lisinopril 20 MG tablet 20 mg PO BID Patient Comments: take 1 tablet by mouth twice a day pantoprazole 40 MG tablet 40 mg PO BID Rx Instructions: Take 40 mg twice daily for 2 weeks followed by 40 mg daily. lorazepam 0.5 mg tablet 0.5 mg PO BID Patient Comments: take 1 tablet by mouth twice a day if needed for anxiety tamsulosin 0.4 mg capsule 0.4 mg PO QHS Patient Comments: take 1 capsule by mouth at bedtime phenazopyridine 100 mg tablet 100 mg PO TID PRN (Reason: pain) Patient Comments: take 1 tablet by mouth three times a day if needed ibuprofen 600 mg tablet 600 mg PO Q6H PRN (Reason: pain) Patient Comments: take 1 tablet by mouth every 6 hours NEEDED FOR PAIN ciprofloxacin HCl 500 mg tablet 500 mg PO BID Patient Comments: take 1 tablet by mouth twice a day doxepin 10 mg capsule 10 mg PO QHS PRN PRN (Reason: insomnia) Patient Comments: take 1 capsule by mouth at bedtime if needed for sleep Referrals / Follow Up: Alfred Bailey DO [Primary Care Provider] - Within 2 Weeks Disposition Disposition (needs filled in before D/C Order can be placed): Home, Self Care Charges/Coding Visit Charges Inpatient E&M: 16923 Disch Hosp
[2023-04-18 12:15] VITALS: BP 144/78; PULSE 76; RESP 12; TEMP 36.9; O2SAT 96
--- NOTE | 2023-04-18 12:23 | CASEMGMT ---
HOLDEN CM into pt room, pt sitting up in bed eating a cheeseburger for lunch. Pt states he feels safe to dc home. He does not use AD but has available if needed. Pt denies any homegoing needs.
--- NOTE | 2023-04-18 12:46 | PHA.DC.MR.R ---
Pharmacy AR Med Reconciliation Pharmacy Service has performed discharge medication reconciliation for this patient. The patient's discharge medication list was reviewed for discrepancies and discrepancies were resolved. Medications at Discharge Home Medications lisinopril 20 mg tablet 20 mg PO BID blood pressure 03/16/18 pantoprazole 40 mg tablet,delayed release 40 mg PO BID reflux 09/07/19 albuterol sulfate 90 mcg/actuation aerosol inhaler (ProAir HFA) 1 - 2 puff inhalation Q6H PRN shortness of breath or wheezing #8.5 grams 05/24/20 ciprofloxacin HCl 500 mg tablet 500 mg PO BID 04/15/23 ibuprofen 600 mg tablet 600 mg PO Q6H PRN pain 04/15/23 lorazepam 0.5 mg tablet 0.5 mg PO BID 04/15/23 phenazopyridine 100 mg tablet 100 mg PO TID PRN pain 04/15/23 tamsulosin 0.4 mg capsule 0.4 mg PO QHS 04/15/23 doxepin 10 mg capsule 10 mg PO QHS PRN PRN insomnia 04/17/23
[2023-04-18 14:25] VITALS: BP 144/78; PULSE 76; RESP 12; TEMP 36.1; O2SAT 96
[2023-04-18 14:52] LABS: Potassium 3.2 mmol/L (3.5-5.1)
== END 2023-04-18 18:24 | disposition home or self-care (01) ==
LOC: ED 16:38 → MS3 21:12
PROVIDERS: Internal Medicine; Admitting Provider Family Medicine; Emergency Provider Emergency Medicine; PCP Family Medicine; Visit Provider Internal Medicine
DX: R11.2 Nausea with vomiting, unspecified (principal); J44.9 Chronic obstructive pulmonary disease, unspecified; E87.6 Hypokalemia; N40.1 Benign prostatic hyperplasia with lower urinary tract symptoms; K21.9 Gastro-esophageal reflux disease without esophagitis; Z87.891 Personal history of nicotine dependence; G89.29 Other chronic pain; I10 Essential (primary) hypertension; Z79.899 Other long term (current) drug therapy; N13.8 Other obstructive and reflux uropathy; Z98.890 Other specified postprocedural states; Z86.711 Personal history of pulmonary embolism
CPT/HCPCS: 36415; 80048; 80053; 80076; 81001; 82248; 83036; 83735; 84100; 84132; 84443; 85025; 87086; 87088; 96361; 96365; 96366; 96372; 96375; 96376; 99221; 99285; J7030; A4216; G0378; J2405

== ENCOUNTER 2023-06-01 05:46 | Day surgery (SDC) | payer MEDICARE, SELFPAY ==
--- NOTE | 2023-05-19 07:14 | EKG12_ITS ---
Test Reason : PRE OP Blood Pressure : / mmHG Vent. Rate : 083 BPM Atrial Rate : 083 BPM P-R Int : 150 ms QRS Dur : 082 ms QT Int : 388 ms P-R-T Axes : 037 051 044 degrees QTc Int : 455 ms Normal sinus rhythm Normal ECG Confirmed by Elías Fenton ([id number]), editor greeting card MJ MORALES ([id number]) on 05/20/2023 7:22:39 AM Referred By: Willie Nieves Confirmed By:Elías Fenton
[2023-05-19 08:50] LABS: Anion Gap 2 (5-15); BUN 14 mg/dL (7-18); BUN/Creat Ratio 13.3 RATIO (10-20); Calcium,Total 9.6 mg/dL (8.5-10.1); Chloride 102 mmol/L (98-107); Creatinine, Serum 1.05 mg/dL (0.70-1.30); EST Glomerular Filtration Rate 73 mL/min (>60); Est Glom Filt Rate - Afr Amer 89 mL/min (>60); Glucose 120 mg/dL (74-106); Potassium 4.5 mmol/L (3.5-5.1); Sodium Level 136 mmol/L (136-145)
[2023-06-01] VITALS (16 sets, daily range): BP systolic 97–131; BP diastolic 51–75; PULSE 69–93; RESP 16–76; TEMP 36.1–36.6; O2SAT 92–96; BMI 39.9
[2023-06-01] MEDS: Lactated Ringers 1,000 ML 15 ML IV (06:48)
[2023-06-01] MEDS: Ipratropium/Albuterol Sulfate 3 ML AMPUL.NEB INHALATION (07:03)
[2023-06-01] MEDS: Cefazolin 2 GM in 0.9% Normal Saline (100mL Bag) 100 ML IV (07:28)
--- NOTE | 2023-06-01 07:30 | MASS_PTH ---
PATIENT: KIRK TELLO [place] [facility] [id number] AGE/SX: 73/M ROOM: RE06/01/[address]: Dr. Willie Nieves MD : 1950 BED: DIS: 06/02/2023 SPEC #: [id number] RECD: 06/01/23 10:43 STATUS: JAYSON REEli #: [id number] MARIVEL: 06/01/23 07:[address]: Willie Nieves DEPT: SURGICAL PATHOLOGY RECD BY: Marley Galvan ENTERED: 06/01/23 11:38 SP TYPE: Mass OTHR DR: Dr. 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 See cancer summary in the comment section. TAYA/ 06/03/2023 COMMENT KIDNEY CANCER SUMMARY Procedure - Partial nephrectomy Specimen laterality - Right Tumor site- Not specified Tumor size - 2.5 x 2.0 x 1.5cm Tumor focality - Unifocal Histologic type - Clear cell renal cell carcinoma Sarcomatoid features - Not identified Rhabdoid features - Not identified Histologic grade - grade 2 (WHO/ISUP grade) Tumor necrosis - Not identified Tumor extension - Tumor limited to kidney Margins - Focally present at the margin. Lymphvascular invasion - not identified. Regional lymph nodes - No lesions submitted or found Pathologic findings in non-neoplastic kidney - interstitial chronic inflammation adjacent to the tumor. PATHOLOGIC STAGE: pT1a pNx pMx The above summary is in compliance with [employer] (CAP) Cancer Protocols Checklist and [place] Joint Committee on Cancer (AJCC), Staging Manual, 8th Ed. MICROSCOPIC DESCRIPTION Slides are reviewed. GROSS DESCRIPTION Received in fixative is one container labeled with the patient's name and designated Right renal mass and tissue. The specimen consists of a piece of pink nodular tissue measuring 2.5 x 2.0 x 1.5cm and weighing 4.4gm. No obvious resection margin could be identified. The specimen is inked, serially sectioned and reveal yellowish solid cut surfaces, Area of hemorrhage necrosis or cystic degeneration are not identified. The entire specimen is submitted in six cassettes from one end to another end. Bryn 06/02/23 TC:0 CPT:96572
--- NOTE | 2023-06-01 07:42 | HP.PCM_ITS ---
HPI - General General Date of Admission: 06/01/23 Chief Complaint: Right renal mass HPI Narrative KIRK TELLO, is a 73 M who presents for a laparoscopic robotic assisted right partial nephrectomy for a solid right renal mass concerning for malignancy [facility] Medical History Alcohol use Anxiety Arthritis Back pain Chest wall contusion (~12/18/20) COPD (chronic obstructive pulmonary disease) CPAP (continuous positive airway pressure) dependence Depression Encounter for screening for COVID-19 Former smoker Gastric reflux History of diverticulitis History of edema History of IBS History of pain when walking History of renal disease History of stress test History of ulceration HTN (hypertension) Injury of head and neck Shortness of breath on exertion Wears dentures Wears glasses Home Medications lisinopril 20 mg tablet 20 mg PO BID blood pressure 03/16/18 [History Last Taken 05/31/23 22:30] pantoprazole 40 mg tablet,delayed release 40 mg PO BID reflux 09/07/19 [History Last Taken 05/31/23 22:30] albuterol sulfate 90 mcg/actuation aerosol inhaler (ProAir HFA) 1 - 2 puff inhalation Q6H PRN shortness of breath or wheezing #8.5 grams 05/24/20 [Rx Last Taken Unknown] ibuprofen 600 mg tablet 600 mg PO Q6H PRN pain 04/15/23 [History Last Taken Unknown] lorazepam 0.5 mg tablet 0.5 mg PO BID PRN PRN anxiety 04/15/23 [History Last Taken Unknown] doxepin 10 mg capsule 10 mg PO QHS PRN PRN insomnia 04/17/23 [History Last Taken Unknown] albuterol sulfate 2.5 mg/3 mL (0.083 %) solution for nebulization 2.5 mg inhalation Q6H PRN PRN shortness of breath or wheezing 05/18/23 [History Last Taken Unknown] fluvoxamine 100 mg tablet 100 mg PO QHS 05/18/23 [History Last Taken Unknown] amlodipine 5 mg tablet 5 mg PO QDAY 05/24/23 [History Last Taken Unknown] docusate sodium 100 mg capsule (Colace) 100 mg PO BID #20 caps 06/01/23 [Rx Last Taken Unknown] oxycodone 5 mg tablet 5 mg PO Q6H PRN pain 7 days #14 tabs 06/01/23 [Rx Last Taken Unknown] Allergy/AdvReac Type Severity Reaction Status Date / Time amoxicillin Allergy doesnt Verified 06/01/23 06:25 rememeber fluoxetine [From Prozac] AdvReac Other Verified 06/01/23 06:25 Family History Mother Myocardial infarction Father Cancer Surgical History History of eye surgery Hx of blepharoplasty Hx of colonoscopy Hx of esophagogastroduodenoscopy Social History Smoking Status: Former smoker alcohol intake: current Alcohol type: hard liquor Vital Signs Vital Signs Vital Signs: 06/01/23 06:27 06/01/23 06:27 06/01/23 07:03 Temperature 97.7 F L Temperature Source Temporal Pulse Rate 84 76 Respiratory Rate 16 20 H Respiratory Pattern Normal Normal Blood Pressure 130/72 H Blood Pressure Mean 91 Blood Pressure Source Monitor Blood Pressure Position Semi-Fowlers Blood Pressure Location Right Arm Pulse Ox 95 Oxygen Delivery Method Room Air Weight Weight: 119.295 kg Body Mass Index (BMI) 39.9 Results Lab / Micro Data 05/19/23 07:32
--- NOTE | 2023-06-01 09:25 | DCINST_ITS ---
Discharge Instructions Diet Discharge Diet: No restrictions Activity Discharge Activity: Return to Normal Activity and May Not Drive (while taking narcotic pain medications.) Dressing / Incision Call your doctor if you observe: Fever of 101 or Higher Follow Up Care Please Follow Up With: Willie Nieves MD When: Call [phone] for an appointment Test Results: Test results from this visit will be discussed in further detail at your follow- up appointment, if applicable. Discharge Plan Admission Primary Reason for Your Visit: Right renal mass Attending Provider: Willie Nieves Primary Care Provider: Alfred Bailey Discharge Orders/Prescriptions Prescriptions: New oxycodone 5 mg tablet 5 mg PO Q6H PRN (Reason: pain) 7 Days Qty: 14 0RF docusate sodium [Colace] 100 mg capsule 100 mg PO BID Qty: 20 0RF Continued albuterol sulfate [ProAir HFA] 90 mcg/actuation HFA aerosol inhaler 1 - 2 puff INHALATION Q6H PRN (Reason: shortness of breath or wheezing) Qty: 8.5 1RF amlodipine 5 mg tablet 5 mg PO QDAY lisinopril 20 MG tablet 20 mg PO BID Patient Comments: take 1 tablet by mouth twice a day pantoprazole 40 MG tablet 40 mg PO BID Rx Instructions: Take 40 mg twice daily for 2 weeks followed by 40 mg daily. lorazepam 0.5 mg tablet 0.5 mg PO BID PRN PRN (Reason: anxiety) Patient Comments: take 1 tablet by mouth twice a day if needed for anxiety ibuprofen 600 mg tablet 600 mg PO Q6H PRN (Reason: pain) Patient Comments: take 1 tablet by mouth every 6 hours NEEDED FOR PAIN doxepin 10 mg capsule 10 mg PO QHS PRN PRN (Reason: insomnia) Patient Comments: take 1 capsule by mouth at bedtime if needed for sleep albuterol sulfate 2.5 mg /3 mL (0.083 %) solution for nebulization 2.5 mg inhalation Q6H PRN PRN (Reason: shortness of breath or wheezing) fluvoxamine 100 mg tablet 100 mg PO QHS Referrals / Follow Up: Willie Nieves MD [Med Staff - Active Staff] - Alfred Bailey DO [Primary Care Provider] - Disposition Disposition (needs filled in before D/C Order can be placed): Home, Self Care
--- NOTE | 2023-06-01 09:25 | OP.PCM_ITS ---
Report of Operation Date of Procedure: 06/01/23 Pre-Operative Diagnosis: Right renal mass Post-Operative Diagnosis: The same Surgery/Procedure Performed:: Laparoscopic robotic assisted right partial nephrectomy Description of Surgical Findings:: 73-year-old male was found to have a solid right renal mass, in consultation in the office we discussed options of management including observation or surgical removal of the mass. We talked about the risk and benefits of the approach and he desired to have the tumor removed symptoms possible this could be malignancy. Patient was taken back to the operating room after smooth induction of ane sthesia he was placed on the table Fuentes catheter was placed he was intubated and underwent general anesthetic we then placed in the full flank position axillary roll in place to make sure all pressure points were padded made sure he was aligned nicely in the table and secured properly. We then shaved prepped draped the abdomen for approach for the transabdominal approach the right kidney marked out my trocars right arm trocar left arm trocar second left arm trocar camera trocar and also air seal port. We obtained a pneumoperitoneum and then placed our trocars I then went inside the abdomen first we dissected some adhesions in the anterior abdominal wall I then reflected the colon off the kidney on the right side and a very large floppy liver but it was out of the way of the kidney I then used the ultrasound to identify the location of the kidney and then could see the tumor quite clearly on ultrasound I then incised fat over the kidney to get to the tumor and then circumferentially dissected all the way around the kidney tumor and then very carefully and off Fashion without clamping the arteries we commenced with the resection of the tumor using enucleation fashion I found the surgical plane between the capsule the tumor and the renal parenchyma and then very carefully followed this below the tumor circumferentially until I got underneath the tumor used electrocautery and bi polar coag to control blood vessels and then the tumor was removed we then cauterized the base to help with bleeding control and then placed Surgicel in the base Floseal the base and then we used 0 Vicryl stitches to reapproximate the edge of the resection site and compression on the kidney and for control hemostasis we lowered lower down the pneumoperitoneum down to 5 mmHg observe the site where the resection was done and the the repair of the kidney was performed and there was no signs of bleeding we then extracted the tumor through the air seal port went back and looked and there was no sign of bleeding from the extraction site of blood patient blood pressure was normal and then all the ports were removed the robot was then docked and we closed each port with subcuticular stitches we did closed the air seal 1012 trocar with a fascia we closed that with a Allan Jones stitch currently patient's anesthetic to be reversed minimal blood loss for the case about 100 cc and the successful removal of the tumor complete removal of the tumor without any violations. Surgeon: Willie Nieevs Type of Anesthesia: General Drains: fuentes Estimated Blood Loss (mL): 100 Admit VTE Documentation VTE Present on Admission: No VTE Mechan Device Prophylaxis: SCD's VTE Pharm Prophylaxis ordered?: No
[2023-06-01] MEDS: Bupivacaine Mpf 0.5% 30 ML VIAL (09:31)
[2023-06-01] MEDS: Lactated Ringers 1,000 ML 125 ML IV ×2 (11:44→18:52)
[2023-06-01] MEDS: LORazepam 0.5 MG Tablet PO (13:35)
[2023-06-01] MEDS: Pantoprazole Sodium 40 MG Tablet PO ×2 (13:35→22:24)
[2023-06-01] MEDS: Lisinopril 20 MG Tablet PO ×2 (13:35→22:24)
[2023-06-01] MEDS: Ketorolac 15 MG/ML Vial IV (17:55)
[2023-06-01] MEDS: fluvoxaMINE Maleate 50 MG Tablet 100 MG PO (22:24)
[2023-06-02] MEDS: Ondansetron 4 MG/2 ML Vial IV (00:41)
[2023-06-02] MEDS: Ketorolac 15 MG/ML Vial IV (02:19)
[2023-06-02] MEDS: Lactated Ringers 1,000 ML 125 ML IV (02:21)
[2023-06-02 02:25] VITALS: BP 132/87; PULSE 88; RESP 18; TEMP 36.3; O2SAT 93
[2023-06-02 06:37] VITALS: BP 147/77; PULSE 90; RESP 18; TEMP 36.8; O2SAT 95
[2023-06-02 07:23] LABS: Hematocrit 41.3 % (40-54); Hemoglobin 13.9 g/dL (13.0-16.5); Mean Corp Hgb Conc 33.7 g/dL (32-36); Mean Corpuscular Hgb 31.8 pg (27.0-32.0); Mean Corpuscular Volume 94.5 fL (80-94); Mean Platelet Vol. 10.3 fl (6.2-12.0); Platelet Count 189 K/mm3 (150-450); RBC Distribution Width SD 44.9 fl (35.1-43.9); Red Blood Count 4.37 M/mm3 (4.6-6.2); White Blood Count 12.1 K/mm3 (4.4-11.0)
[2023-06-02 07:32] LABS: Anion Gap 7 (5-15); BUN 11 mg/dL (7-18); BUN/Creat Ratio 10.9 RATIO (10-20); Chloride 101 mmol/L (98-107); Creatinine, Serum 1.01 mg/dL (0.70-1.30); EST Glomerular Filtration Rate 77 mL/min (>60); Est Glom Filt Rate - Afr Amer 93 mL/min (>60); Estimated Creatinine Clearance 79.34 ml/min; Glucose 143 mg/dL (74-106); Potassium 4.3 mmol/L (3.5-5.1); Sodium Level 136 mmol/L (136-145)
--- NOTE | 2023-06-02 07:38 | PCM.PN.GU ---
Subjective Subjective s/p partial nephrectomy doing well d/c alfredo d/c home Objective Data Objective Data Vital Signs: Vital Signs Temp Pulse Resp BP Pulse Ox O2 Del Method O2 Flow Rate 98.2 F 90 18 147/77 H 95 Room Air 2 06/02/23 06:37 06/02/23 06:37 06/02/23 06:37 06/02/23 06:37 06/02/23 06:37 06/02/23 06:37 06/01/23 15:16 Oxygen Flow Rate (L/min) 2 Oxygen Delivery Method Room Air Weight: 119.295 kg Body Mass Index (BMI) 39.9 Intake & Output: Intake and Output for Last 24 Hours 05/31/23 06/01/23 06/02/23 23:59 23:59 23:59 Intake Total 1075.67 / 1675.67 1535.42 / 1535.42 Output Total 1150 / 2750 1600 / 1600 Balance -74.33 / -1074.33 -64.58 / -64.58 Lab / Micro Data 06/02/23 06:08 06/02/23 06:08 Labs: Laboratory Results - last 24 hr 06/02/23 06:08: WBC 12.1 H, RBC 4.37 L, Hgb 13.9, Hct 41.3, MCV 94.5 H, MCH 31.8, MCHC 33.7, RDW Std Deviation 44.9 H, RDW Coeff of [place] 13.0, Plt Count 189, MPV 10.3, Sodium 136, Potassium 4.3, Chloride 101, Carbon Dioxide 28.0, Anion Gap 7, BUN 11, Creatinine 1.01, Estim Creat Clear Calc 79.34, Est GFR (MDRD) Af Amer 93, Est GFR (MDRD) Non-Af 77, BUN/Creatinine Ratio 10.9, Glucose 143 H, Calcium 9.0
[2023-06-02 08:13] VITALS: O2SAT 95
[2023-06-02 09:02] VITALS: BP 143/74; PULSE 98; RESP 16; TEMP 36.8; O2SAT 96
[2023-06-02] MEDS: amLODIPine 5 MG Tablet PO (09:32)
[2023-06-02] MEDS: Lisinopril 20 MG Tablet PO (09:32)
[2023-06-02] MEDS: Pantoprazole Sodium 40 MG Tablet PO (09:32)
[2023-06-02 13:37] VITALS: BP 141/68; PULSE 91; RESP 16; TEMP 37.1; O2SAT 98
== END 2023-06-02 14:09 | disposition home or self-care (01) ==
LOC: SDC 06:31 → AC 06:32 → MS3 10:17 → ACINP 06-02 08:05 → MS3 06-02 08:05
PROVIDERS: Anesthesiology; PCP Family Medicine; Referring Provider Urology; Visit Provider Urology
PROC: (CPT 50543; principal; 2023-06-01 07:10)
DX: C64.1 Malignant neoplasm of right kidney, except renal pelvis (principal); J44.9 Chronic obstructive pulmonary disease, unspecified; I10 Essential (primary) hypertension; Z87.891 Personal history of nicotine dependence; Z87.448 Personal history of other diseases of urinary system; Z87.19 Personal history of other diseases of the digestive system; K21.9 Gastro-esophageal reflux disease without esophagitis
CPT/HCPCS: 50543; 00862; 36415; 80048; 85027; 88307; 93005; 94640; 94668; 94762; J7120; J2405

== ENCOUNTER → 2023-10-25 | Outpatient (CLI) | payer MEDICARE, SELFPAY ==
[2023-10-25 15:49] LABS: PSA,Total - Annual Screen 0.83 ng/mL (0.00-4.00)
== END | disposition home or self-care (01) ==
LOC: MTLAB 13:05
PROVIDERS: PCP Family Medicine; Referring Provider Nurse Practitioner; Visit Provider Nurse Practitioner
DX: Z12.5 Encounter for screening for malignant neoplasm of prostate (principal)
CPT/HCPCS: 36415; 84153; G0103

== ENCOUNTER → 2023-10-28 | Outpatient (CLI) | payer MEDICARE, SELFPAY | END | disposition home or self-care (01) | PROVIDERS: PCP Family Medicine; Referring Provider Family Medicine; Visit Provider Family Medicine | DX: R19.7 Diarrhea, unspecified (principal) | CPT/HCPCS: 82274; 87177; 87209 ==

== ENCOUNTER → 2023-11-03 | Outpatient (CLI) | payer MEDICARE, SELFPAY ==
--- NOTE | 2023-11-03 08:14 | CT_ITS ---
STUDY: CT ABDOMEN AND PELVIS WITH CONTRAST REASON FOR EXAM: Male, 73 years old. Malignant neoplasm of right kidney, except renal pelvis. Partial right nephrectomy. Lower abdominal pain. RADIATION DOSAGE (If Supplied By Facility): CTDIvol = ( 15.39 ) mGy, DLP = ( 1321.02 ) mGycm TECHNIQUE: Transaxial images were obtained from the dome of the diaphragm to the symphysis pubis without oral contrast. 100ML ISOVUE 370 was administered. Sagittal and coronal images were reconstructed. Individualized dose optimization techniques were used for this CT. COMPARISON: Comparison is made with prior study dated October 22, 2022. FINDINGS: Stable increased markings at the lung bases suggestive of linear atelectasis and/or scarring. Coronary artery calcification. There is decreased attenuation of the liver consistent with steatosis. There are multiple gallstones. There are multiple benign calcified granulomata of the spleen. Normal pancreas. Normal bilateral adrenal glands. The patient is status post partial right nephrectomy. A persistent 1.3 cm cystic structure is seen along the inferior lateral aspect of the right kidney at the surgical site. 7 mm nonobstructive calculus in the lower pole calyx of the left kidney. Normal visualized stomach. Normal small intestine. Normal colon. The appendix is visualized and appears normal. There is atherosclerotic calcification of the abdominal aorta, without a demonstrated aneurysm. Normal inferior vena cava. Normal retroperitoneum. Normal urinary bladder. There is enlargement of the prostate gland. Normal abdominal wall. There are degenerative changes of the visualized lumbar spine. CT/Abdomen/Pelvis WITH Contrast IMPRESSION: Status post partial nephrectomy of the right kidney with resultant cystic change at the operative site. Fatty infiltration of the liver. Multiple layering gallstones. Electronically Signed: Rashid Doherty MD at 10:50 EDT ,
[2023-11-03 08:52] LABS: CREATININE FINGERSTICK < 1.0 mg/dL (0.70-1.30); EGFR FINGERSTICK > 60.0000 mL/min (>60)
== END | disposition home or self-care (01) ==
LOC: CT 08:10
PROVIDERS: PCP Family Medicine; Referring Provider Urology; Visit Provider Urology
DX: C64.1 Malignant neoplasm of right kidney, except renal pelvis (principal)
CPT/HCPCS: 74177; Q9967

== ENCOUNTER → 2023-12-09 | Outpatient (CLI) | payer MEDICARE, SELFPAY ==
--- NOTE | 2023-12-09 | LES_PTH ---
PATIENT: KIRK TELLO LOC: [facility] U#:[id number] AGE/SX: 73/M ROOM: RE12/09/[address]: Dr. Alfred Bailey DO : 1950 BED: DIS: 12/09/2023 SPEC #: [id number] RECD: 12/09/23 12:44 STATUS: JAYSON ENRICO #: [id number] MARIVEL: 12/09/23 00:[address]: Alfred Bailey DEPT: SURGICAL PATHOLOGY RECD BY: Wai Blackwell Tissues: Skin of face, NOS Procedures: Surgery Specimen Level IV HEADER OPERATION: Punch biopsy of abnormal lesion PRE-OP DIAGNOSIS: Irritated skin lesion, rule out basal cell carcinoma TISSUE SUBMITTED: Right upper chest 3mm biopsy MICROSCOPIC DIAGNOSIS Right clavicle/upper chest lesion, punch biopsy: Basal cell carcinoma. 12/12/2023 MICROSCOPIC DESCRIPTION Slides are reviewed. GROSS DESCRIPTION Received in fixative is one container labeled with the patient's name and designated Right clavicle. The specimen consists of a punch biopsy of stanford-white skin measuring 0.3cm in diameter and 0.2cm in length. The entire specimen is submitted in one cassette. 12/09/2023 TC:0 CPT:90761
[2023-12-09 13:29] LABS: AST(SGOT) 31 U/L (15-37); Alanine Aminotransfer ALT/SGPT 35 U/L (16-61); Albumin, Serum 3.5 g/dL (3.2-5.0); Alkaline Phosphatase 70 U/L (45-117); Bilirubin, Direct 0.25 mg/dL (0.00-0.30); Lipase 58 U/L (13-75); Protein, Total 7.5 g/dL (6.4-8.2)
== END | disposition home or self-care (01) ==
PROVIDERS: PCP Family Medicine; Referring Provider Family Medicine; Visit Provider Family Medicine
DX: K76.0 Fatty (change of) liver, not elsewhere classified (principal); R10.9 Unspecified abdominal pain
CPT/HCPCS: 36415; 80076; 83690; 88305

== ENCOUNTER 2023-12-18 21:40 | Emergency (ER) | payer MEDICARE, SELFPAY ==
[2023-12-18 21:41] VITALS: BP 143/73; PULSE 107; RESP 26; TEMP 36.2; O2SAT 96; BMI 41.5
[2023-12-18] MEDS: LORazepam 2 MG/ML Syringe 0.5 MG IV (22:07)
[2023-12-18 22:08] LABS: Absolute Neutrophil Count 3.5 X10^3/uL (2.0-7.7); Basophil# 0.04 X10^3/uL; Basophil% 0.6 % (0-1); Eosinophil# 0.05 X10^3/uL; Eosinophils% 0.7 % (0-5); Hematocrit 43.9 % (40-54); Hemoglobin 15.1 g/dL (13.0-16.5); Lymphocyte % 36.9 % (19-41); Mean Corp Hgb Conc 34.4 g/dL (32-36); Mean Corpuscular Hgb 33.8 pg (27.0-32.0); Mean Corpuscular Volume 98.2 fL (80-94); Mean Platelet Vol. 9.7 fl (6.2-12.0); Monocyte# 0.66 X10^3/uL; Monocyte% 9.7 % (0-10); NRBC Flagged by Analyzer 0 % (0-5); Neutrophil % 51.8 % (47-70); Platelet Count 235 K/mm3 (150-450); RBC Distribution Width CV 13.4 % (11.6-14.6); Red Blood Count 4.47 M/mm3 (4.6-6.2); White Blood Count 6.8 K/mm3 (4.4-11.0)
[2023-12-18 22:28] LABS: ALB/GLOB Ratio 0.9 RATIO (0.9-2.4); AST(SGOT) 41 U/L (15-37); Alanine Aminotransfer ALT/SGPT 29 U/L (16-61); Albumin, Serum 3.6 g/dL (3.2-5.0); Alkaline Phosphatase 74 U/L (45-117); Anion Gap 8 (5-15); BUN 15 mg/dL (7-18); BUN/Creat Ratio 13.9 RATIO (10-20); Calcium,Total 9.2 mg/dL (8.5-10.1); Chloride 105 mmol/L (98-107); Creatinine, Serum 1.08 mg/dL (0.70-1.30); EST Glomerular Filtration Rate 71 mL/min (>60); Est Glom Filt Rate - Afr Amer 86 mL/min (>60); Estimated Creatinine Clearance 75.77 ml/min; Globulin 3.9 g/dL (2.2-4.2); Glucose 107 mg/dL (74-106); Lipase 58 U/L (13-75); Potassium 4.2 mmol/L (3.5-5.1); Protein, Total 7.5 g/dL (6.4-8.2); Sodium Level 138 mmol/L (136-145); Troponin-I HS 14 pg/mL (3.0-78.0)
[2023-12-18] MEDS: DiphenhydrAMINE 25 MG, ChlorproMAZINE IM 25 MG in 0.9% Normal Saline (100mL Bag) 100 ML 203 MG IV (22:34)
[2023-12-19] VITALS: BP 118/55; PULSE 95; RESP 16; O2SAT 920
[2023-12-19 01:25] VITALS: BP 115/76; PULSE 69; RESP 18; TEMP 36.6; O2SAT 94
== END 2023-12-19 01:26 | disposition home or self-care (01) ==
PROVIDERS: Emergency Provider Emergency Medicine; PCP Family Medicine; Visit Provider Emergency Medicine
DX: R11.2 Nausea with vomiting, unspecified (principal); J44.9 Chronic obstructive pulmonary disease, unspecified; I10 Essential (primary) hypertension; Z87.891 Personal history of nicotine dependence; K21.9 Gastro-esophageal reflux disease without esophagitis; Z79.899 Other long term (current) drug therapy; F41.9 Anxiety disorder, unspecified
CPT/HCPCS: 80053; 83690; 84484; 85025; 93005; 96365; 96375; 99282; J7040; A4216

== ENCOUNTER → 2024-01-27 | Outpatient (CLI) | payer MEDICARE, SELFPAY ==
--- NOTE | 2024-01-27 | LES_PTH ---
PATIENT: KIRK TELLO [facility] U#:[id number] AGE/SX: 73/M ROOM: RE01/27/[address]: Dr. Vishnu Doyle MD : 1950 BED: DIS: 01/27/2024 SPEC #: [id number] RECD: 01/27/24 14:02 STATUS: JAYSON ENRICO #: [id number] MARIVEL: 01/27/24 00:[address]: Vishnu Doyle DEPT: SURGICAL PATHOLOGY RECD BY: Gold Shafer ENTERED: 01/30/24 10:12 SP TYPE: Lesion OTHR DR: Dr. Alfred Bailey, DO Tissues: Skin of chest Procedures: Surgery Specimen Level IV HEADER OPERATION: Excision right chest PRE-OP DIAGNOSIS: Basal cell carcinoma TISSUE SUBMITTED: Right chest MICROSCOPIC DIAGNOSIS Right chest lesion, excisional biopsy: Basal cell carcinoma, completely excised. SJ: 01/31/2024 MICROSCOPIC DESCRIPTION Slides are reviewed. GROSS DESCRIPTION Received is one container labeled with the patient name and designated right chest. The specimen consists of a stanford-white skin ellipse that measures 2 x 2 x 0.5 cm. The specimen is oriented as follows: short stitch superior and long stitch lateral. The specimen is inked as follows: superior - blue, inferior - green, medial - black and lateral - yellow. The specimen is serially sectioned and submitted entirely in two cassette. /SJ:cc 01/30/24 TC:0 [facility]:[id number]
== END | disposition home or self-care (01) ==
LOC: LABSPEC 14:10
PROVIDERS: PCP Family Medicine; Referring Provider Surgery Plastic and Reconstructive Surgery; Visit Provider Surgery Plastic and Reconstructive Surgery
DX: C44.91 Basal cell carcinoma of skin, unspecified (principal)
CPT/HCPCS: 88305

== ENCOUNTER 2024-02-20 21:04 | Emergency (ER) | payer MEDICARE, SELFPAY ==
[2024-02-20 21:04] VITALS: BP 183/93; PULSE 104; RESP 16; TEMP 37.1; O2SAT 97; BMI 42.4
[2024-02-20 21:48] VITALS: BP 154/76; PULSE 89; RESP 20; O2SAT 95
--- NOTE | 2024-02-20 22:27 | ED.VIS.GI ---
HPI HPI - GI History of Present Illness Chief Complaint: Nausea/Vomiting Detail of Chief Complaint: Nausea without vomiting. Informant: patient Abdominal Pain/Flank Pain Onset: - (Nausea started around 6 PM. Patient denies any abdominal pain.) Nausea/Vomiting/Emesis GI Symptom: Positive for Nausea; Negative for Vomiting Onset: Today and Hours Severity: Mild Diarrhea/Melena/Hematochezia GI Symptom: Negative for Diarrhea, Melena or Hematochezia Associated Symptoms Associated Symptoms: Negative for Dysuria, Frequency, Hematuria or Urgency Narrative Narrative: 73-year-old male history of COPD and hypertension. Prior partial nephrectomy due to cancer. States that today around 6 PM he developed nausea. Denies any vomiting or diarrhea. No fever or chills. No shortness of breath. Denies any chest pain nor any abdominal pain. States had multiple episodes like this over the last 10 years has never been a specific diagnosis. He denies other complaints. Prior similar symptoms: Yes Recent Illness/Hospitalization: No PFSH PFSH Medical History Basal cell carcinoma of anterior chest Wears glasses Wears dentures Depression Anxiety Alcohol use Arthritis History of renal disease Back pain Injury of head and neck History of ulceration History of IBS History of diverticulitis Gastric reflux CPAP (continuous positive airway pressure) dependence Former smoker COPD (chronic obstructive pulmonary disease) Shortness of breath on exertion History of pain when walking History of edema History of stress test Encounter for screening for COVID-19 Chest wall contusion (~12/18/20) HTN (hypertension) Home Medications ?Medication ?Instructions ?Recorded ?Last Taken ?Type lisinopril 20 mg tablet 20 mg PO BID blood pressure 03/16/18 05/31/23 22:30 History pantoprazole 40 mg tablet,delayed 40 mg PO BID reflux 09/07/19 05/31/23 22:30 History release albuterol sulfate 90 mcg/actuation 1 - 2 puff inhalation Q6H PRN 05/24/20 Unknown Rx aerosol inhaler (ProAir HFA) shortness of breath or wheezing #8.5 grams ibuprofen 600 mg tablet 600 mg PO Q6H PRN pain 04/15/23 Unknown History lorazepam 0.5 mg tablet 0.5 mg PO BID PRN PRN anxiety 04/15/23 Unknown History doxepin 10 mg capsule 10 mg PO QHS PRN PRN insomnia 04/17/23 Unknown History albuterol sulfate 2.5 mg/3 mL 2.5 mg inhalation Q6H PRN PRN 05/18/23 Unknown History (0.083 %) solution for nebulization shortness of breath or wheezing fluvoxamine 100 mg tablet 100 mg PO QHS 05/18/23 Unknown History amlodipine 5 mg tablet 5 mg PO QDAY 05/24/23 Unknown History docusate sodium 100 mg capsule 100 mg PO BID #20 caps 06/01/23 Unknown Rx (Colace) oxycodone 5 mg tablet 5 mg PO Q6H PRN pain 7 days #14 06/01/23 Unknown Rx tabs omeprazole 40 mg capsule,delayed 40 mg PO DAILY 12/30/23 Unknown History release Allergy/AdvReac Type Severity Reaction Status Date / Time amoxicillin Allergy doesnt Verified 02/20/24 21:05 rememeber fluoxetine (From Prozac) AdvReac Other Verified 02/20/24 21:05 Family History Mother Myocardial infarction Hypertension Father Cancer Hypertension Surgical History Hx of colonoscopy Hx of blepharoplasty Hx of esophagogastroduodenoscopy History of eye surgery Social History Smoking Status: Former smoker how long ago did patient quit smoking: quit 20 yr ago alcohol intake: current Alcohol type: hard liquor substance use type: does not use additional social history: personal hx of PEs ROS ROS ED ROS Narrative Nausea. Constitutional Constitutional ED: Denies chills or fever(s) ENT ENT ED: Denies ear pain Cardiovascular Cardiovascular: Denies chest pain Respiratory/Chest Respiratory/Chest: Denies cough or dyspnea Gastrointestinal Gastrointestinal: Reports nausea; Denies abdominal pain, constipation, diarrhea, melena or vomiting Genitourinary Genitourinary ED: Denies dysuria or hematuria Musculoskeletal Musculoskeletal: Denies arthralgias or back pain Integumentary Denies abscess Neurologic Neurologic: Denies headache(s) Psychiatric Psychiatric: Denies anxiety Endocrine Endocrinology: Denies polydipsia Hematologic/Lymphatic Hematologic/Lymphatic: Denies easy bleeding Allergic/Immunologic Allergic/Immunologic ED: Denies mouth swelling EXAM Physical Exam Narrative Exam Narrative: Well-appearing 73-year-old male. Vital signs are stable afebrile. He does not look septic toxic nor in any distress. H EENT exam pupils round reactive light. No signs of trauma. Moist mucous membranes. Neck nontender no lymphadenopathy. Lungs clear to auscultation bilaterally. Heart regular rhythm rate about 90 no murmur. Chest wall ribs nontender. Abdomen soft nontender. Nondistended. No peritoneal signs. Moving all 4 extremities. Dorsi plantarflexion intact. 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 Nontender. No edema. Back nontender. Neurologically is awake alert. No focal motor deficits. Const Vital Signs: 02/20/24 21:04 02/20/24 21:48 Temperature 98.7 F Temperature Source Oral Pulse Rate 104 H 89 Respiratory Rate 16 20 H Blood Pressure 183/93 H 154/76 H Blood Pressure Mean 123 102 Pulse Ox 97 95 Oxygen Delivery Method Room Air Room Air Positive well nourished and well developed; Negative for cachectic, contractures or unkempt General Appearance ED: well developed and NAD; Negative for unkempt, cachectic, contractures or pallor Nutritional Appearance: Negative for cachectic HEENT Reports moist mucous membranes normocephalic and atraumatic; Negative for trauma or tenderness Eyes PERRL and EOMs intact bilaterally Neck no lymphadenopathy, supple and no JVD Resp normal respiratory effort and clear to auscultation bilaterally Effort and Inspection: Negative for respiratory distress Auscultation: Negative for rales, rhonchi, wheezes or diminished lung sounds Cardio regular rate, regular rhythm, S1 normal heart sound, S2 normal heart sound and no murmurs GI non-tender, non-distended and no masses Palpation: soft; Negative for tender, guarding or rebound tenderness present Back/Spine no CVA tenderness General Back: Negative for CVA tenderness Cervical Spine: Negative for cervical spine tenderness Thoracic Spine / Upper Back: Negative for thoracic spinal tenderness Lumbar Spine / Lower Back: Negative for lumbar spinal tenderness Extremity full ROM General Extremety ED: Negative for edema or tenderness General Extremity: Negative for edema Neuro CN's II-XII intact bilaterally and moves all extremities Sensorium / Orientation: alert, oriented to person, oriented to place and oriented to time; Negative for orientation impaired, confused or lethargic Motor Exam: strength 5/5 throughout Psych mental status grossly normal and thought process normal Appearance: Negative for unkempt Mood & Affect: Negative for depressed or tearful Skin no wounds General Skin Exam: Negative for jaundice or pallor Lesions: no lesions Rashes: no rashes Trauma: Negative for abrasion MDM MDM MDM Narrative Medical decision making narrative: 73-year-old male complaining of nausea. Benign exam. Prior history multiple times. He said there is never really been a specific diagnosis. Screening labs to be obtained. I do not think he needs any imaging. He had a recent CAT scan of October of his abdomen pelvis. We given Zofran for nausea. P.o. fluid challenge. Exam is benign. Abdomen is nontender. Repeat exam at 11:42 PM. Patient doing well. He has received IV Zofran, Ativan and Benadryl. His nausea started to resolve. I gave him a glass of water which is current drinking. His abdomen is benign. Is all the old water down is comfortable being discharged home. He does have Zofran at home for nausea. He and I went over his test results. History & Record Review Discussion w/independent historian: Patient Additional record(s) reviewed:: Prior inpatient record, Prior outpatient record, Prior ED visit and Prior labs Lab Data Attestation: I reviewed the patient's lab results. Lab results narrative: CBC shows a white count of 5. H&H 13 and 41. Platelets are low at 107. Electrolytes show a gap of 11. Normal BUN of 7 creatinine 0.8. Glucose 80. Labs: Laboratory Results - last 24 hr 02/20/24 21:45 WBC 5.1 RBC 4.16 L Hgb 13.7 Hct 41.0 MCV 98.6 H MCH 32.9 H MCHC 33.4 RDW Std Deviation 50.7 H RDW Coeff of [place] 14.2 Plt Count 107 L MPV 9.4 Immature Gran % (Auto) 0.400 Neut % (Auto) 58.7 Lymph % (Auto) 26.2 [place] % (Auto) 12.3 H Eos % (Auto) 2.0 Baso % (Auto) 0.4 Absolute Neuts (auto) 3.0 Absolute Lymphs (auto) 1.34 Nucleated RBC % 0 Sodium 138 Potassium 3.8 Chloride 99 Carbon Dioxide 28.0 Anion Gap 11 BUN 7 Creatinine 0.80 Estim Creat Clear Calc 103.48 Est GFR (MDRD) Af Amer 122 Est GFR (MDRD) Non-Af 101 BUN/Creatinine Ratio 8.8 L Glucose 80 Calcium 8.8 Discharge Plan Triage Chief Complaint: Nausea/Vomiting ED Provider: Vick Ruiz Dx/Rx/DC Orders Clinical Impression: Nausea, Thrombocytopenia Instructions: ED Vomiting (Adult) Prescriptions: No Action albuterol sulfate [ProAir HFA] 90 mcg/actuation HFA aerosol inhaler 1 - 2 puff INHALATION Q6H PRN (Reason: shortness of breath or wheezing) Qty: 8.5 1RF amlodipine 5 mg tablet 5 mg PO QDAY omeprazole 40 mg capsule,delayed release(DR/EC) 40 mg PO DAILY lisinopril 20 MG tablet 20 mg PO BID Patient Comments: take 1 tablet by mouth twice a day pantoprazole 40 MG tablet 40 mg PO BID Rx Instructions: Take 40 mg twice daily for 2 weeks followed by 40 mg daily. lorazepam 0.5 mg tablet 0.5 mg PO BID PRN PRN (Reason: anxiety) Patient Comments: take 1 tablet by mouth twice a day if needed for anxiety ibuprofen 600 mg tablet 600 mg PO Q6H PRN (Reason: pain) Patient Comments: take 1 tablet by mouth every 6 hours NEEDED FOR PAIN doxepin 10 mg capsule 10 mg PO QHS PRN PRN (Reason: insomnia) Patient Comments: take 1 capsule by mouth at bedtime if needed for sleep albuterol sulfate 2.5 mg /3 mL (0.083 %) solution for nebulization 2.5 mg inhalation Q6H PRN PRN (Reason: shortness of breath or wheezing) fluvoxamine 100 mg tablet 100 mg PO QHS oxycodone 5 mg tablet 5 mg PO Q6H PRN (Reason: pain) 7 Days Qty: 14 0RF docusate sodium [Colace] 100 mg capsule 100 mg PO BID Qty: 20 0RF Primary Care Provider: Alfred Bailey Referrals: Alfred Bailey DO [Primary Care Provider] - 3-5 Days if not improving Activity Restrictions/Additional Instructions: Your home Zofran as needed for nausea. You may swallow it or let dissolve on your tongue if you are too nauseated to swallow. Follow-up with your doctor if not improving. Return if you are feeling worse or unable to keep fluids down. Your labs tonight look good other than your platelet count was a little low at 107,000. That is just below normal. That can be rechecked in 2 to 4 weeks. Most likely will improve. Print Language: Pakistani Disposition Disposition: Home, Self Care
[2024-02-20] MEDS: Ondansetron 4 MG/2 ML Vial IV (22:37)
[2024-02-20 22:44] LABS: Absolute Lymphocyte Count 1.34 X10^3/uL (0.83-4.51); Basophil# 0.02 X10^3/uL; Basophil% 0.4 % (0-1); Hemoglobin 13.7 g/dL (13.0-16.5); Lymphocyte # 1.34 X10^3/ul (0.83-4.51); Lymphocyte % 26.2 % (19-41); Mean Corp Hgb Conc 33.4 g/dL (32-36); Mean Corpuscular Hgb 32.9 pg (27.0-32.0); Mean Corpuscular Volume 98.6 fL (80-94); Mean Platelet Vol. 9.4 fl (6.2-12.0); Monocyte# 0.63 X10^3/uL; Monocyte% 12.3 % (0-10); NRBC Flagged by Analyzer 0 % (0-5); Neutrophil # 3.01 X10^3/uL (2.7-7.7); Neutrophil % 58.7 % (47-70); Platelet Count 107 K/mm3 (150-450); RBC Distribution Width CV 14.2 % (11.6-14.6); RBC Distribution Width SD 50.7 fl (35.1-43.9); Red Blood Count 4.16 M/mm3 (4.6-6.2); White Blood Count 5.1 K/mm3 (4.4-11.0)
[2024-02-20 22:57] LABS: Anion Gap 11 (5-15); BUN 7 mg/dL (7-18); BUN/Creat Ratio 8.8 RATIO (10-20); Calcium,Total 8.8 mg/dL (8.5-10.1); Chloride 99 mmol/L (98-107); EST Glomerular Filtration Rate 101 mL/min (>60); Est Glom Filt Rate - Afr Amer 122 mL/min (>60); Estimated Creatinine Clearance 103.48 ml/min; Glucose 80 mg/dL (74-106); Potassium 3.8 mmol/L (3.5-5.1); Sodium Level 138 mmol/L (136-145)
[2024-02-20] MEDS: DiphenhydrAMINE 50 MG/ML Syringe 25 MG IV (23:21)
[2024-02-20] MEDS: LORazepam 2 MG/ML Syringe 1 MG IV (23:21)
== END 2024-02-20 23:58 | disposition home or self-care (01) ==
PROVIDERS: Emergency Provider Emergency Medicine; PCP Family Medicine; Visit Provider Emergency Medicine
DX: R11.2 Nausea with vomiting, unspecified (principal); J44.9 Chronic obstructive pulmonary disease, unspecified; Z87.891 Personal history of nicotine dependence; D69.6 Thrombocytopenia, unspecified; I10 Essential (primary) hypertension; Z90.5 Acquired absence of kidney; Z79.899 Other long term (current) drug therapy; K21.9 Gastro-esophageal reflux disease without esophagitis; F41.9 Anxiety disorder, unspecified

== ENCOUNTER → 2024-02-29 | Outpatient (CLI) | payer MEDICARE, SELFPAY ==
[2024-02-29 12:20] LABS: Absolute Lymphocyte Count 1.18 X10^3/uL (0.83-4.51); Basophil# 0.05 X10^3/uL; Basophil% 1.2 % (0-1); Eosinophil# 0.09 X10^3/uL; Eosinophils% 2.1 % (0-5); Hematocrit 42.2 % (40-54); Hemoglobin 13.8 g/dL (13.0-16.5); Lymphocyte # 1.18 X10^3/ul (0.83-4.51); Lymphocyte % 28.2 % (19-41); Mean Corp Hgb Conc 32.7 g/dL (32-36); Mean Corpuscular Hgb 32.9 pg (27.0-32.0); Mean Corpuscular Volume 100.5 fL (80-94); Mean Platelet Vol. 10.5 fl (6.2-12.0); Monocyte# 0.87 X10^3/uL; Monocyte% 20.8 % (0-10); NRBC Flagged by Analyzer 0 % (0-5); Neutrophil % 47.7 % (47-70); Platelet Count 199 K/mm3 (150-450); RBC Distribution Width CV 13.8 % (11.6-14.6); RBC Distribution Width SD 50.9 fl (35.1-43.9); White Blood Count 4.2 K/mm3 (4.4-11.0)
== END | disposition home or self-care (01) ==
LOC: BFHLAB 11:03
PROVIDERS: PCP Family Medicine; Visit Provider Family Medicine
DX: D69.6 Thrombocytopenia, unspecified (principal)
CPT/HCPCS: 36415; 85025

== ENCOUNTER 2024-03-07 13:56 | Emergency (ER) | payer MEDICARE, SELFPAY ==
[2024-03-07 13:57] VITALS: BP 147/74; PULSE 106; RESP 18; TEMP 37; O2SAT 97
[2024-03-07 15:24] VITALS: BMI 39.9
--- NOTE | 2024-03-07 15:37 | EDS_ITS ---
HPI HPI - GI History of Present Illness Chief Complaint: Nausea/Vomiting Informant: patient Nausea/Vomiting/Emesis GI Symptom: Positive for Nausea; Negative for Vomiting Onset: Yesterday Diarrhea/Melena/Hematochezia GI Symptom: Negative for Diarrhea, Melena or Hematochezia Associated Symptoms Associated Symptoms: Negative for Dysuria, Frequency or Hematuria Narrative Narrative: Patient presents with nausea that began last night. Patient states he is unable to vomit. Patient denies any abdominal pain. Patient denies any diarrhea, melena, or hematochezia. Patient denies any fevers but admits to some subjective chills. Patient denies any dysuria, frequency, or hematuria. Patient does admit to some shortness of breath but denies any chest pain. Patient denies any pain with back. Patient does admit to some neck pain. Patient states he had similar symptoms in the past and was given a dose of IV Ativan and Benadryl and his symptoms resolved after that. [facility] Medical History Basal cell carcinoma of anterior chest Wears glasses Wears dentures Depression Anxiety Alcohol use Arthritis History of renal disease Back pain Injury of head and neck History of ulceration History of IBS History of diverticulitis Gastric reflux CPAP (continuous positive airway pressure) dependence Former smoker COPD (chronic obstructive pulmonary disease) Shortness of breath on exertion History of pain when walking History of edema History of stress test Encounter for screening for COVID-19 Chest wall contusion (~12/18/20) HTN (hypertension) Home Medications ?Medication ?Instructions ?Recorded ?Last Taken ?Type lisinopril 20 mg tablet 20 mg PO BID blood pressure 03/16/18 05/31/23 22:30 History pantoprazole 40 mg tablet,delayed 40 mg PO BID reflux 09/07/19 05/31/23 22:30 History release albuterol sulfate 90 mcg/actuation 1 - 2 puff inhalation Q6H PRN 05/24/20 Unkn own Rx aerosol inhaler (ProAir HFA) shortness of breath or wheezing #8.5 grams ibuprofen 600 mg tablet 600 mg PO Q6H PRN pain 04/15/23 Unknown History lorazepam 0.5 mg tablet 0.5 mg PO BID PRN PRN anxiety 04/15/23 Unknown History doxepin 10 mg capsule 10 mg PO QHS PRN PRN insomnia 04/17/23 Unknown History albuterol sulfate 2.5 mg/3 mL 2.5 mg inhalation Q6H PRN PRN 05/18/23 Unknown History (0.083 %) solution for nebulization shortness of breath or wheezing fluvoxamine 100 mg tablet 100 mg PO QHS 05/18/23 Unknown History amlodipine 5 mg tablet 5 mg PO QDAY 05/24/23 Unknown History oxycodone 5 mg tablet 5 mg PO Q6H PRN pain 7 days #14 06/01/23 Unknown Rx tabs omeprazole 40 mg capsule,delayed 40 mg PO DAILY 12/30/23 Unknown History release ondansetron 4 mg disintegrating 4 mg PO Q8H PRN PRN Nausea #10 tabs 03/07/24 Unknown Rx tablet Allergy/AdvReac Type Severity Reaction Status Date / Time amoxicillin Allergy doesnt Verified 03/07/24 13:59 rememeber fluoxetine (From Prozac) AdvReac Other Verified 03/07/24 13:59 Family History Mother Myocardial infarction Hypertension Father Cancer Hypertension Surgical History Hx of colonoscopy Hx of blepharoplasty Hx of esophagogastroduodenoscopy History of eye surgery Social History household members: none Smoking Status: Former smoker how long ago did patient quit smoking: quit 20 yr ago alcohol intake: current Alcohol type: hard liquor substance use type: does not use additional social history: personal hx of PEs ROS ROS ED Constitutional Constitutional ED: Reports chills; Denies fever(s) Eyes Eyes: Denies blurry vision or change in vision ENT ENT ED: Denies rhinorrhea or sore throat Cardiovascular Cardiovascular: Denies chest pain or palpitations Respiratory/Chest Respiratory/Chest: Reports dyspnea; Denies cough Gastrointestinal Gastrointestinal: Denies nausea or vomiting Genitourinary Genitourinary ED: Denies dysuria or hematuria Musculoskeletal Musculoskeletal: Reports neck pain; Denies back pain Integumentary Denies abscess or rash Neurologic Neurologic: Denies headache(s) or weakness Allergic/Immunologic Allergic/Immunologic ED: Denies mouth swelling or urticaria EXAM Physical Exam Const Vital Signs: 03/07/24 13:57 03/07/24 16:07 Temperature 98.6 F Temperature Source Temporal Pulse Rate 106 H 87 Respiratory Rate 18 18 Blood Pressure 147/74 H 147/88 H Blood Pressure Mean 98 107 Pulse Ox 97 94 Oxygen Delivery Method Room Air Positive well nourished and well developed General Appearance ED: well developed and NAD HEENT Reports moist mucous membranes Neck supple and no JVD Resp normal respiratory effort and clear to auscultation bilaterally Cardio regular rate and regular rhythm GI non-tender and non-distended Palpation: soft Neuro CN's II-XII intact bilaterally, moves all extremities and no sensory deficits noted Sensorium / Orientation: alert Motor Exam: strength 5/5 throughout Psych mental status grossly normal and thought process normal MDM MDM MDM Narrative Medical decision making narrative: Differential diagnosis includes gastritis, peptic ulcer disease, duodenal ulcer, pancreatitis, gastroesophageal reflux disease, viral illness, and anxiety. CBC will be obtained to assess for leukocytosis and anemia. Comprehensive metabolic profile will be obtained to assess for hepatic function, renal function, and electrolyte abnormality. Lipase will be obtained to assess for pancreatitis. Lab Data Attestation: I reviewed the patient's lab results. Lab results narrative: CBC was reviewed and was within normal limits. Comprehensive metabolic profile was reviewed and was within normal limits. Lipase was reviewed and was normal at 58. Labs: Laboratory Results - last 24 hr 03/07/24 16:05 WBC 4.6 RBC 4.66 Hgb 14.9 Hct 44.9 MCV 96.4 H MCH 32.0 MCHC 33.2 RDW Std Deviation 48.6 H RDW Coeff of [place] 13.7 Plt Count 240 MPV 9.6 Immature Gran % (Auto) 0.400 Neut % (Auto) 69.3 Lymph % (Auto) 17.[address] [place] % (Auto) 12.4 H Eos % (Auto) 0.2 Baso % (Auto) 0.7 Absolute Neuts (auto) 3.2 Absolute Lymphs (auto) 0.78 L Nucleated RBC % 0 Sodium 135 L Potassium 3.7 Chloride 95 L Carbon Dioxide 34.0 H Anion Gap 6 BUN 8 Creatinine 0.99 Estim Creat Clear Calc 80.87 Est GFR (MDRD) Af Amer 94 Est GFR (MDRD) Non-Af 78 BUN/Creatinine Ratio 8.1 L Glucose 101 Calcium 10.2 H Total Bilirubin 1.10 H AST 67 H ALT 56 Alkaline Phosphatase 77 Total Protein 8.1 Albumin 3.9 Globulin 4.2 Albumin/Globulin Ratio 0.9 Lipase 58 Treatment and Re-Evaluation :: The patient was given IV fluids, Ativan, and Benadryl. Patient was feeling better on reevaluation. Patient was advised of his findings. Patient was given a prescription for Zofran. Patient was instructed to start with a liquid diet and advance as tolerated. Patient was instructed to follow-up with his primary care physician in 5 to 7 days. Patient was instructed to return if worse in any way. Patient understood and was agreeable with the plan. All questions were answered. Discharge Plan Triage Chief Complaint: Nausea/Vomiting ED Provider: Bogdan Grover Dx/Rx/DC Orders Clinical Impression: Nausea, Hypertension Instructions: ED Vomiting (Adult) Prescriptions: New ondansetron 4 mg tablet,disintegrating 4 mg PO Q8H PRN PRN (Reason: Nausea) Qty: 10 0RF No Action albuterol sulfate [ProAir HFA] 90 mcg/actuation HFA aerosol inhaler 1 - 2 puff INHALATION Q6H PRN (Reason: shortness of breath or wheezing) Qty: 8.5 1RF amlodipine 5 mg tablet 5 mg PO QDAY omeprazole 40 mg capsule,delayed release(DR/EC) 40 mg PO DAILY lisinopril 20 MG tablet 20 mg PO BID Patient Comments: take 1 tablet by mouth twice a day pantoprazole 40 MG tablet 40 mg PO BID Rx Instructions: Take 40 mg twice daily for 2 weeks followed by 40 mg daily. lorazepam 0.5 mg tablet 0.5 mg PO BID PRN PRN (Reason: anxiety) Patient Comments: take 1 tablet by mouth twice a day if needed for anxiety ibuprofen 600 mg tablet 600 mg PO Q6H PRN (Reason: pain) Patient Comments: take 1 tablet by mouth every 6 hours NEEDED FOR PAIN doxepin 10 mg capsule 10 mg PO QHS PRN PRN (Reason: insomnia) Patient Comments: take 1 capsule by mouth at bedtime if needed for sleep albuterol sulfate 2.5 mg /3 mL (0.083 %) solution for nebulization 2.5 mg inhalation Q6H PRN PRN (Reason: shortness of breath or wheezing) fluvoxamine 100 mg tablet 100 mg PO QHS oxycodone 5 mg tablet 5 mg PO Q6H PRN (Reason: pain) 7 Days Qty: 14 0RF Primary Care Provider: Alfred Bailey Referrals: Alfred Bailey DO [Primary Care Provider] - 5-7 Days Print Language: Portuguese Disposition Disposition: Home, Self Care
[2024-03-07] MEDS: DiphenhydrAMINE 50 MG/ML Syringe 25 MG IV (16:04)
[2024-03-07] MEDS: 0.9% Normal Saline (1000mL) 1,000 ML 1000 ML IV (16:04)
[2024-03-07] MEDS: LORazepam 2 MG/ML Syringe 0.5 MG IV (16:04)
[2024-03-07 16:07] VITALS: BP 147/88; PULSE 87; RESP 18; O2SAT 94
[2024-03-07 16:19] LABS: Absolute Lymphocyte Count 0.78 X10^3/uL (0.83-4.51); Absolute Neutrophil Count 3.2 X10^3/uL (2.0-7.7); Basophil# 0.03 X10^3/uL; Basophil% 0.7 % (0-1); Eosinophil# 0.01 X10^3/uL; Eosinophils% 0.2 % (0-5); Hematocrit 44.9 % (40-54); Hemoglobin 14.9 g/dL (13.0-16.5); Lymphocyte # 0.78 X10^3/ul (0.83-4.51); Mean Corp Hgb Conc 33.2 g/dL (32-36); Mean Corpuscular Volume 96.4 fL (80-94); Mean Platelet Vol. 9.6 fl (6.2-12.0); Monocyte# 0.57 X10^3/uL; Monocyte% 12.4 % (0-10); NRBC Flagged by Analyzer 0 % (0-5); Neutrophil # 3.18 X10^3/uL (2.7-7.7); Neutrophil % 69.3 % (47-70); Platelet Count 240 K/mm3 (150-450); RBC Distribution Width CV 13.7 % (11.6-14.6); RBC Distribution Width SD 48.6 fl (35.1-43.9); Red Blood Count 4.66 M/mm3 (4.6-6.2); White Blood Count 4.6 K/mm3 (4.4-11.0)
[2024-03-07 16:55] LABS: ALB/GLOB Ratio 0.9 RATIO (0.9-2.4); AST(SGOT) 67 U/L (15-37); Alanine Aminotransfer ALT/SGPT 56 U/L (16-61); Albumin, Serum 3.9 g/dL (3.2-5.0); Alkaline Phosphatase 77 U/L (45-117); Anion Gap 6 (5-15); BUN 8 mg/dL (7-18); BUN/Creat Ratio 8.1 RATIO (10-20); Calcium,Total 10.2 mg/dL (8.5-10.1); Chloride 95 mmol/L (98-107); Creatinine, Serum 0.99 mg/dL (0.70-1.30); EST Glomerular Filtration Rate 78 mL/min (>60); Est Glom Filt Rate - Afr Amer 94 mL/min (>60); Estimated Creatinine Clearance 80.87 ml/min; Globulin 4.2 g/dL (2.2-4.2); Glucose 101 mg/dL (74-106); Lipase 58 U/L (13-75); Potassium 3.7 mmol/L (3.5-5.1); Protein, Total 8.1 g/dL (6.4-8.2); Sodium Level 135 mmol/L (136-145)
[2024-03-07 18:00] VITALS: BP 140/71; PULSE 81; RESP 20; O2SAT 95
[2024-03-07 18:02] VITALS: BP 140/71; PULSE 81; RESP 20; TEMP 36.8; O2SAT 95
== END 2024-03-07 18:06 | disposition home or self-care (01) ==
PROVIDERS: Emergency Provider Emergency Medicine; PCP Family Medicine; Visit Provider Emergency Medicine
DX: R11.2 Nausea with vomiting, unspecified (principal); J44.9 Chronic obstructive pulmonary disease, unspecified; Z87.891 Personal history of nicotine dependence; I10 Essential (primary) hypertension; Z85.828 Personal history of other malignant neoplasm of skin; Z79.899 Other long term (current) drug therapy; K21.9 Gastro-esophageal reflux disease without esophagitis; F41.9 Anxiety disorder, unspecified
CPT/HCPCS: 80053; 83690; 85025; 96361; 96374; 96375; 99283; A4216

== ENCOUNTER 2024-04-22 13:19 | Observation (INO) | payer MEDICARE, SELFPAY ==
[2024-04-22 13:20] VITALS: BP 136/76; PULSE 87; RESP 16; TEMP 36.7; O2SAT 98; BMI 39.9
[2024-04-22 13:23] VITALS: BP 146/81
--- NOTE | 2024-04-22 13:33 | CM.ED ---
icebox worker verified advanced care directives in patient's medical records. Both are scanned in. Jessica Augustin [employer] PACKER, AUDIO VIDEO REPAIRER
--- NOTE | 2024-04-22 13:54 | CT_ITS ---
EXAM: CT brain without IV contrast CLINICAL HISTORY: Pain, trauma COMPARISON: None TECHNIQUE: Multiple contiguous axial images of the brain were obtained without the administration of intravenous contrast. Two-dimensional coronal and sagittal reformatted images were reconstructed. Low-dose imaging technique was utilized. FINDINGS: No evidence of acute intracranial hemorrhage, midline shift or mass effect. No definite CT evidence of acute territorial cortical infarction. No hydrocephalus. Mild atrophy. No depressed calvarial fracture. Paranasal sinuses and mastoid air cells are clear. CT/Brain/Head without Contrast IMPRESSION: No acute intracranial abnormality. Reading Location: [id number]
--- NOTE | 2024-04-22 13:54 | EKG12_ITS ---
Test Reason : FALL Blood Pressure : */* mmHG Vent. Rate : 89 BPM Atrial Rate : 89 BPM P-R Int : 140 ms QRS Dur : 84 ms QT Int : 390 ms P-R-T Axes : 54 64 51 degrees QTcB Int : 474 ms Normal sinus rhythm Normal ECG Confirmed by JACOB MISTRY, JUAREZ ([id number]), electronic news gathering editor MJ MORALES ([id number]) on 04/23/2024 8:24:09 AM Referred By: Confirmed By: JUAREZ JAMES MD
--- NOTE | 2024-04-22 13:54 | CT_ITS ---
PROCEDURE: CT cervical spine without IV contrast REASON FOR EXAM: Pain, trauma TECHNIQUE: Multiple contiguous axial images through the cervical spine were obtained without the administration of intravenous contrast. Two-dimensional coronal and sagittal reformatted images were reconstructed. Low-dose imaging technique was utilized. COMPARISON: None. FINDINGS: Vertebral body heights are within normal limits. Negative for fracture or traumatic subluxation. Mild multilevel degenerative changes. No paraspinal mass. Bilateral carotid artery calcifications. Lung apices are clear. CT/Spine Cervical without Contras IMPRESSION: No acute osseous abnormality. One or more dose reduction techniques were used (e.g., Automated exposure contr ol, adjustment of the mA and/or kV according to patient size, use of iterative reconstruction technique). Reading Location: [facility]
--- NOTE | 2024-04-22 14:02 | EDS_ITS ---
HPI <ELAINA Thompson - Last Filed: 04/22/24 18:40> History of Present Illness Chief Complaint: Fall Narrative Narrative: Patient is a 73-year-old male with history of anxiety, depression, COPD, hypertension, obesity, chronic back pain who presents to the emergency department after falling feeling like he might pass out. Patient does admit to 2-3 shots of black velvet whiskey, he states that he has been doing this for the last 2 years ever since his . He does drink daily. Patient states that he got up, felt dizzy like is in a pass out falling backwards landing on his right side hitting the back of his head on a chair. His only complaints is significant right sided hip pain. He denies any fever or chills. Denies any nausea or vomiting. Patient did arrive by ambulance, patient could not ambulate. PFS <ELIANA Thompson - Last Filed: 04/22/24 18:40> [facility]LY [facility] Medical History Basal cell carcinoma of anterior chest Wears glasses Wears dentures Depression Anxiety Alcohol use Arthritis History of renal disease Back pain Injury of head and neck History of ulceration History of IBS History of diverticulitis Gastric reflux CPAP (continuous positive airway pressure) dependence Former smoker COPD (chronic obstructive pulmonary disease) Shortness of breath on exertion History of pain when walking History of edema History of stress test Encounter for screening for COVID-19 Chest wall contusion (~12/18/20) HTN (hypertension) Home Medications ?Medication ?Instructions ?Recorded ?Last Taken ?Type lisinopril 20 mg tablet 20 mg PO BID blood pressure 03/16/18 05/31/23 22:30 History pantoprazole 40 mg tablet,delayed 40 mg PO BID reflux 09/07/19 05/31/23 22:30 History release ibuprofen 600 mg tablet 600 mg PO Q6H PRN pain 04/14 Unknown History lorazepam 0.5 mg tablet 0.5 mg PO BID PRN PRN anxiet y 04/15/23 Unknown History doxepin 10 mg capsule 10 mg PO QHS PRN PRN insomni a 04/17/23 Unknown History albuterol sulfate 2.5 mg/3 mL 2.5 mg inhalation Q6H DC N PRN 05/18/23 Unknown History (0.083 %) solution for nebulization shortness of breat h or wheezing fluvoxamine 100 mg tablet 100 mg PO QHS 05/18/23 Unkno wn History amlodipine 5 mg tablet 5 mg PO QDAY 05/24/23 Unknow n History omeprazole 40 mg capsule,delayed 40 mg PO DAILY Unknown History release ondansetron 4 mg disintegrating 4 mg PO Q8H PRN Nausea 04/22/24 Unknown History tablet Allergy/AdvReac Type Severity Reaction Status Date / Time amoxicillin Allergy doesnt Verified 04/22/24 13:23 rememeber fluoxetine (From Prozac) AdvReac Other Verified 04/22/24 13:23 Family History Mother Myocardial infarction Hypertension Father Cancer Hypertension Surgical History Hx of colonoscopy Hx of blepharoplasty Hx of esophagogastroduodenoscopy History of eye surgery Social History household members: none Smoking Status: Former smoker how long ago did patient quit smoking: quit 20 yr ago alcohol intake: current Alcohol type: hard liquor substance use type: does not use additional social history: personal hx of PEs ROS <ELIANA Thompson - Last Filed: 04/22/24 18:40> ROS ED ROS Narrative Constitutional: Negative for fever, chills, weight loss, weakness Eyes: Negative for vision loss, vision change, double vision ENT: Negative for any sore throat, ear pain, congestion Cardiovascular: Negative for any chest pain, tightness, palpitations Respiratory: Negative for any cough, sputum production, hemoptysis, dyspnea, dyspnea on exertion, orthopnea Gastrointestinal: Negative for any abdominal pain, nausea, vomiting, diarrhea, constipation, blood in stool, blood in vomit : Negative for any urinary frequency, dysuria, retention, blood in urine Muscle skeletal: Negative for any neck pain. Positive back pain, right hip pain Neurological: Negative for any headache, syncope, dizziness Skin: Negative for any rashes, itching, abrasions, lacerations Psychiatric: Negative for any depression, anxiety, stress, suicidal ideation, homicidal ideation Hematologic: Negative for any excessive bruising, easy bleeding EXAM <Chuck Padilla, [employer] - Last Filed: 04/22/24 18:40> Physical Exam Narrative Exam Narrative: Vital signs reviewed. On my initial evaluation, I did smell a scent of alcohol, I did ask the patient he had any alcohol this morning, he said he did, he said he had 2-3 shots of black velvet whiskey chased down by water. Pay states he does do this usually at nighttime however is not sure why he did it today. HEET: Head normocephalic atraumatic, TMs clear bilaterally. Posterior pharynx is clear, moist mucous membranes. Nares clear bilaterally. Pupils are equal round reactive to light. Negative for hematoma or septal hematoma. Neck: Supple with no lymphadenopathy or tenderness. No signs of meningismus. Cardiac: Regular rate and rhythm no murmurs gallops or rubs, equal peripheral pulses bilaterally. Respiratory: Lungs clear to auscultation bilaterally. No chest tenderness. Abdomen: Soft, nontender, nondistended. No abdominal bruit or pulsatile masses. No hepatosplenomegaly Extremities: Patient had a negative logroll to the right leg however any flexion or extension of the right hip did cause discomfort. No pain to the knee. +2 pedal pulse. Negative for any numbness or tingling. There is no obvious deformity. No obvious shortening. Neuro: Cranial nerves II through XII intact, no focal neurological deficits. Ne uroexams unremarkable. Skin: Clean dry and intact with no rash, purpura, petechiae, vesicles or pustules. Backs/flank: No CVA tenderness, no midline spinal tenderness, no deformity. Patient did have some tenderness throughout the entire lower back, he states this is chronic. Psych: Normal mood and affect. No SI, HI or acute psychosis. Const Vital Signs: 04/22/24 13:20 04/22/24 13:23 04/22/24 13:23 Temperature 98.1 F Temperature Source Oral Pulse Rate 87 Respiratory Rate 16 Respiratory Effort Normal Non-Labored Respiratory Depth Normal Respiratory Pattern Normal Blood Pressure 136/76 H 146/81 H Blood Pressure Mean 96 102 Pulse Ox 98 Oxygen Delivery Method Room Air Room Air Oxygen Flow Rate (L/min) 94 04/22/24 15:19 04/22/24 17:00 04/22/24 18:43 Temperature 97.6 F L Temperature Source Pulse Rate 82 93 93 Respiratory Rate 18 13 13 Respiratory Effort Respiratory Depth Respiratory Pattern Blood Pressure 116/55 L 155/80 H 155/80 H Blood Pressure Mean 75 105 105 Pulse Ox 95 97 97 Oxygen Delivery Method Nasal Cannula Oxygen Flow Rate (L/min) <Dr. Bogdan Grover DO - Last Filed: 04/22/24 19:12> Physical Exam Const Vital Signs: 04/22/24 13:20 04/22/24 13:23 04/22/24 13:23 Temperature 98.1 F Temperature Source Oral Pulse Rate 87 Respiratory Rate 16 Respiratory Effort Normal Non-Labored Respiratory Depth Normal Respiratory Pattern Normal Blood Pressure 136/76 H 146/81 H Blood Pressure Mean 96 102 Pulse Ox 98 Oxygen Delivery Method Room Air Room Air Oxygen Flow Rate (L/min) 94 04/22/24 15:19 04/22/24 17:00 04/22/24 18:43 Temperature 97.6 F L Temperature Source Pulse Rate 82 93 93 Respiratory Rate 18 13 13 Respiratory Effort Respiratory Depth Respiratory Pattern Blood Pressure 116/55 L 155/80 H 155/80 H Blood Pressure Mean 75 105 105 Pulse Ox 95 97 97 Oxygen Delivery Method Nasal Cannula Oxygen Flow Rate (L/min) MDM <ELIANA Thompson - Last Filed: 04/22/24 18:40> [facility] Lab Data Labs: Laboratory Results - last 24 hr 04/22/24 04/22/24 13:43 16:45 WBC 14.7 H RBC 4.45 L Hgb 14.5 Hct 42.9 MCV 96.4 H MCH 32.6 H MCHC 33.8 RDW Std Deviation 48.8 H RDW Coeff of [place] 13.6 Plt Count 212 MPV 9.8 Immature Gran % (Auto) 1.000 H Neut % (Auto) 82.7 H Lymph % (Auto) 9.0 L [place] % (Auto) 7.0 Eos % (Auto) 0.1 Baso % (Auto) 0.2 Absolute Neuts (auto) 12.2 H Absolute Lymphs (auto) 1.32 Nucleated RBC % 0 PT 12.3 INR 0.9 Sodium 138 Potassium 4.3 Chloride 99 Carbon Dioxide 25.2 Anion Gap 14 BUN 16 Creatinine 0.93 Estim Creat Clear Calc 86.05 Est GFR (MDRD) Non-Af 86 BUN/Creatinine Ratio 16.9 Glucose 79 Calcium 9.2 Total Bilirubin 0.56 Direct Bilirubin 0.32 H AST 33 ALT 29 Alkaline Phosphatase 69 Troponin T High Sens 18 Troponin T Hi Sens 2 Hr 18 Total Protein 7.1 Albumin 4.2 Globulin 2.9 Lipase 59 Radiography Diagnostic Testing: Clinical Impression(s) from Imaging Studies Brain CT 04/22/24 13:54 IMPRESSION: No acute intracranial abnormality. [facility] 04/22/24 13:54 IMPRESSION: No acute osseous abnormality. One or more dose reduction techniques were used (e.g., Automated exposure control, adjustment of the mA and/or kV according to patient size, use of iterative reconstruction technique). Reading [facility] Chest X-Ray 04/22/24 14:25 IMPRESSION: No acute airspace abnormality. Reading [facility] Hip/Pelvis X-Ray 04/22/24 14:25 IMPRESSION: Negative for acute displaced fracture or dislocation. Mild/moderate bilateral hip osteoarthritis. Reading [facility] Lumbar Spine X-Ray 04/22/24 14:25 IMPRESSION: Mild compression deformity of the superior endplate of L3. Correlate for acuity. No significant malalignment. Mild/moderate multilevel disc space narrowing. Moderate lower lumbar facet arthrosis from L4 through S1. Sacroiliac joints are intact. Mild degenerative changes of the hips. Calcified abdominal aorta. Reading [facility] Lower Extremity CT 04/22/24 15:26 IMPRESSION: No fracture or dislocation. One or more dose reduction techniques were used (e.g., Automated exposure control, adjustment of the mA and/or kV according to patient size, use of iterative reconstruction technique). Reading Location: [id number] EKG EKG shows a normal sinus rhythm: Attestation: I personally reviewed and interpreted this EKG as follows: Interpretation: Sinus Rhythm Comments: Normal sinus rhythm, rate of 89 bpm, DC interval 140 ms, QRS duration 84 ms, no acute ST elevation, no acute infarct noted. Treatment and Re-Evaluation :: Differential diagnosis includes however is not limited to: Closed head injury, concussion, skull fracture, intracranial bleeding, right hip fracture, dizziness secondary to alcohol, dehydration, vasovagal syncope, ACS, [place] Patient appears generally well, vital signs are stable, patient is nontoxic- appearing. Presenting to the emergency department with complaints of near syncopal episode falling backwards, injuring his right hip, back as well as his head. Patient does admit to alcohol use this morning. Patient received basic laboratory values including alcohol value. Patient received a CT scan of the brain and cervical spine as well as a chest x-ray, lumbar spine x-ray as well as a right hip x-ray. Patient be given IV fluids, morphine and Zofran. All radiologic examinations were read, reviewed by the emergency department attending. From these reads, a plan of care will be put in place. Patient's chest x-ray was negative. Hip x-ray shows negative for any acute displaced hip fracture. There is some osteoarthritis. Lumbar spine shows a mild compression deformity of the superior endplate of L3. Unsure if this is acute. Patient's CT scan of the brain and cervical spine were negative. Patient did receive pain medicine, nausea medicine. Patient after the hip x- rays were negative. Did have the patient get up and walk with any walker, according to the nurse, the patient could not even stand up, had such severe pain. Secondary to this finding, patient will now receive a CT scan of the right hip. CT scan of the left lower extremity shows no fracture or dislocation. Patient was redosed with pain medicine, he will then try to get up and walk with a walker. On reevaluation, the patient was very unsteady, shaky. After speak with the patient more bluntly, the patient states that he does drink more than he said. Patient is now currently going through a alcohol withdrawal. I spoke with hospitalist, secondary to the pain, inability to ambulate, alcohol withdrawal, failure to thrive. Patient stable for admission <Dr. Bogdan Grover, DO - Last Filed: 04/22/24 19:12> [facility] Narrative Medical decision making narrative: I have personally performed a face to face assessment of the patient and have reviewed the DULCE Note. I performed a substantive portion of the visit including all aspects of the following. My rose findings include: History: Patient presents after a fall that occurred today. Patient states he got dizzy and fell. Patient states he landed on his right hip. Patient states his pain is worse with any movement. Patient states he was unable to ambulate after the fall. Patient states his pain is worse with any weightbearing. Patient denies any head injury or loss of consciousness. Patient denies any other injuries. Exam: Vital signs are stable. Patient is afebrile. Patient is in no acute distress. Oral mucosa is pink and moist. Neck is supple. Trachea is midline. There is no JVD. Heart was regular rate and rhythm. Lungs are clear and equal bilaterally. There is good respiratory effort noted. Abdomen is soft. Bowel sounds are normal. There is no tenderness. There is tenderness over the right hip. Range of motion of the right hip is limited in all motions secondary to pain. There is no deformity noted. There is no shortening or external rotation. Pedal pulses are equal bilaterally. Medical Decision Making: Differential diagnosis includes hip fracture, contus ion, cardiac dysrhythmia, cardiac ischemia, pneumonia, bronchitis, lumbar compression fracture, and electrolyte abnormality. EKG will be obtained to assess for cardiac dysrhythmia and cardiac ischemia. Chest x-ray will be obtained to assess for pneumonia and bronchitis. X-rays of the lumbar spine will be obtained to assess for lumbar compression fracture and spondylolisthesis. X-rays of the right hip and pelvis will be obtained to assess for hip fracture. CT scan of brain will be obtained to assess for intracranial bleeding and stroke. CT scan of the cervical spine will be obtained to assess for cervical spine fracture and spondylolisthesis. CBC will be obtained to assess for leukocytosis and anemia. Basic metabolic profile will be obtained to assess for electrolyte abnormality and renal function. High- sensitivity troponin will be obtained to assess for cardiac ischemia. PT with INR and PTT will be obtained to assess for coagulopathy. Liver profile will be obtained to assess for hepatic function. Patient was given a dose of morphine and Zofran here. EKG was obtained. On my independent interpretation, it showed a normal sinus rhythm with a rate of 89. DC interval, QRS interval, and QTc intervals were all normal. [place] was normal. There are no acute ST or T wave changes. Portable 1 view chest x-ray was obtained. On my independent interpretation, lung leiva are clear. There is normal cardiac silhouette. Bony thorax is normal. There is no acute process noted. Radiologist also interpreted the x-ray and agrees. CT scan of the brain was obtained. There is no acute intracranial abnormality. This was interpreted by the radiologist and was also independently reviewed by myself. CT scan of the cervical spine was obtained. There is no evidence of cervical spine fracture or spondylolisthesis. There is no soft tissue swelling. This was interpreted by the radiologist and was also independently reviewed by myself. X-rays of the lumbar spine were obtained. There are 3 views. On my independent interpretation, there is no acute fracture or spondylolisthesis. There is some degenerative changes noted. Radiologist also interpreted the x-rays and agrees. X-rays of the right hip were obtained. There are 3 views. On my independent interpretation, there is no acute fracture or dislocation. Radiologist also interpreted the x-rays and agrees. CBC was reviewed. There is a mild leukocytosis of 14.7. The remainder was within normal limits. PT with INR was reviewed and was within normal limits. Basic metabolic profile was reviewed and was within normal limits. Hepatic profile was reviewed and was essentially within normal limits. Lipase was reviewed and was normal at 59. Patient attempted ambulation but was having too much pain to be able to ambulate even with a walker. Because of this, CT scan of the right hip will be obtained to assess for occult fracture. CT scan of the right hip was obtained. There is no acute fracture. Patient was normal unable to ambulate. Because of this, patient will be admitted to the hospital for physical therapy. Case was discussed with the hospitalist. Patient is agreeable with this. All questions were answered. Lab Data Labs: Laboratory Results - last 24 hr 04/22/24 04/22/24 13:43 16:45 WBC 14.7 H RBC 4.45 L Hgb 14.5 Hct 42.9 MCV 96.4 H MCH 32.6 H MCHC 33.8 RDW Std Deviation 48.8 H RDW Coeff of [place] 13.6 Plt Count 212 MPV 9.8 Immature Gran % (Auto) 1.000 H Neut % (Auto) 82.7 H Lymph % (Auto) 9.0 L [place] % (Auto) 7.0 Eos % (Auto) 0.1 Baso % (Auto) 0.2 Absolute Neuts (auto) 12.2 H Absolute Lymphs (auto) 1.32 Nucleated RBC % 0 PT 12.3 INR 0.9 Sodium 138 Potassium 4.3 Chloride 99 Carbon Dioxide 25.2 Anion Gap 14 BUN 16 Creatinine 0.93 Estim Creat Clear Calc 86.05 Est GFR (MDRD) Non-Af 86 BUN/Creatinine Ratio 16.9 Glucose 79 Calcium 9.2 Total Bilirubin 0.56 Direct Bilirubin 0.32 H AST 33 ALT 29 Alkaline Phosphatase 69 Troponin T High Sens 18 Troponin T Hi Sens 2 Hr 18 Total Protein 7.1 Albumin 4.2 Globulin 2.9 Lipase 59 Radiography Diagnostic Testing: Clinical Impression(s) from Imaging Studies Brain CT 04/22/24 13:54 IMPRESSION: No acute intracranial abnormality. Reading Location: [facility] Cervical Spine CT 04/22/24 13:54 IMPRESSION: No acute osseous abnormality. One or more dose reduction techniques were used (e.g., Automated exposure control, adjustment of the mA and/or kV according to patient size, use of iterative reconstruction technique). Reading Location: [facility] Chest X-Ray 04/22/24 14:25 IMPRESSION: No acute airspace abnormality. Reading Location: [facility] Hip/Pelvis X-Ray 04/22/24 14:25 IMPRESSION: Negative for acute displaced fracture or dislocation. Mild/moderate bilateral hip osteoarthritis. Reading Location: [facility] Lumbar Spine X-Ray 04/22/24 14:25 IMPRESSION: Mild compression deformity of the superior endplate of L3. Correlate for acuity. No significant malalignment. Mild/moderate multilevel disc space narrowing. Moderate lower lumbar facet arthrosis from L4 through S1. Sacroiliac joints are intact. Mild degenerative changes of the hips. Calcified abdominal aorta. Reading Location: [facility] Lower Extremity CT 04/22/24 15:26 IMPRESSION: No fracture or dislocation. One or more dose reduction techniques were used (e.g., Automated exposure control, adjustment of the mA and/or kV according to patient size, use of iterative reconstruction technique). Reading Location: [id number] Discharge Plan Dx/Rx/DC Orders Clinical Impression: Alcohol withdrawal, Alcohol abuse, Fall, Acute pain of right hip Disposition Disposition: Acute Care Hospital [facility] Discharge Date/Time: 04/22/24 19:09
[2024-04-22 14:13] LABS: Absolute Lymphocyte Count 1.32 X10^3/uL (0.83-4.51); Absolute Neutrophil Count 12.2 X10^3/uL (2.0-7.7); Basophil# 0.03 X10^3/uL; Basophil% 0.2 % (0-1); Eosinophil# 0.01 X10^3/uL; Eosinophils% 0.1 % (0-5); Hematocrit 42.9 % (40-54); Hemoglobin 14.5 g/dL (13.0-16.5); Lymphocyte # 1.32 X10^3/ul (0.83-4.51); Mean Corp Hgb Conc 33.8 g/dL (32-36); Mean Corpuscular Hgb 32.6 pg (27.0-32.0); Mean Corpuscular Volume 96.4 fL (80-94); Mean Platelet Vol. 9.8 fl (6.2-12.0); Monocyte# 1.03 X10^3/uL; NRBC Flagged by Analyzer 0 % (0-5); Neutrophil # 12.15 X10^3/uL (2.7-7.7); Neutrophil % 82.7 % (47-70); Platelet Count 212 K/mm3 (150-450); RBC Distribution Width CV 13.6 % (11.6-14.6); RBC Distribution Width SD 48.8 fl (35.1-43.9); Red Blood Count 4.45 M/mm3 (4.6-6.2); White Blood Count 14.7 K/mm3 (4.4-11.0)
--- NOTE | 2024-04-22 14:25 | RAD_ITS ---
PROCEDURE: Pelvis and right hip radiographs REASON FOR EXAM: Pain, trauma TECHNIQUE: Three views of the pelvis and right hip COMPARISON: None. FINDINGS: See impression RAD/HIP, UNI W/ Pelvis 2-3 Views IMPRESSION: Negative for acute displaced fracture or dislocation. Mild/moderate bilateral hip osteoarthritis. Reading Location: [facility]
--- NOTE | 2024-04-22 14:25 | RAD_ITS ---
PROCEDURE: Chest radiograph REASON FOR EXAM: COUGH TECHNIQUE: Frontal view of the chest. COMPARISON: None. FINDINGS: Cardiomediastinal silhouette is within normal limits. Lungs are clear. No sizable pneumothorax. Chronic right rib fractures. RAD/Chest 1 View (Portable) IMPRESSION: No acute airspace abnormality. Reading Location: [facility]
--- NOTE | 2024-04-22 14:25 | RAD_ITS ---
PROCEDURE: Lumbar spine radiographs REASON FOR EXAM: Pain, trauma TECHNIQUE: 3 view(s) of the lumbar spine COMPARISON: None. FINDINGS: See impression RAD/Lumbar Spine 2 or 3 Views IMPRESSION: Mild compression deformity of the superior endplate of L3. Correlate for acuit y. No significant malalignment. Mild/moderate multilevel disc space narrowing. Moderate lower lumbar facet arthrosis from L4 through S1. Sacroiliac joints are intact. Mild degenerative changes of the hips. Calcified abdominal aorta. Reading Location: [facility]
[2024-04-22 14:28] LABS: International Normalized Ratio 0.9; Prothrombin Time (Protime)PT. 12.3 SECONDS (11.7-14.9)
[2024-04-22 14:31] LABS: AST(SGOT) 33 U/L (<=37); Alanine Aminotransfer ALT/SGPT 29 U/L (<=46); Albumin, Serum 4.2 g/dL (3.4-4.8); Alkaline Phosphatase 69 U/L (40-129); Anion Gap 14 (5-15); BUN 16 mg/dL (4-19); BUN/Creat Ratio 16.9 RATIO (10-20); Bilirubin, Direct 0.32 mg/dL (0.00-0.30); Calcium,Total 9.2 mg/dL (7.6-11.0); Carbon Dioxide 25.2 mmol/L (21.0-32.0); Chloride 99 mmol/L (98-108); Creatinine, Serum 0.93 mg/dL (0.70-1.20); EST Glomerular Filtration Rate 86 (>60); Estimated Creatinine Clearance 86.05 ml/min (50-250); Globulin 2.9 g/dL (2.2-4.2); Glucose 79 mg/dL (70-99); Lipase 59 U/L (13-75); Potassium 4.3 mmol/L (3.3-5.1); Protein, Total 7.1 g/dL (5.9-8.4); Sodium Level 138 mmol/L (133-145); Total Bilirubin 0.56 mg/dL (0.00-1.30); Troponin T High Sensitivity 18 ng/L (<=22)
[2024-04-22] MEDS: Morphine 4 MG/ML Syringe IV ×2 (14:40→17:16)
[2024-04-22] MEDS: Ondansetron 4 MG/2 ML Vial IV (14:40)
[2024-04-22 15:19] VITALS: BP 116/55; PULSE 82; RESP 18; O2SAT 95
--- NOTE | 2024-04-22 15:26 | CT_ITS ---
PROCEDURE: EXTREMITY LOWER WITHOUT CONTRA REASON FOR EXAM: FALL/PAIN TECHNIQUE: Noncontrast CT right hip with coronal and sagittal reformatted images COMPARISON: None. FINDINGS: No fracture or dislocation. Mild appearing osteoarthrosis noted. The pubic symphysis appears within limits. No pelvic free fluid identified visualized pelvis. Vascular calcifications noted. No evidence of joint effusion identified. Soft tissues appear within limits. Visualized prostate suggest mild enlargement. CT/Extremity Lower without Contra IMPRESSION: No fracture or dislocation. One or more dose reduction techniques were used (e.g., Automated exposure contr ol, adjustment of the mA and/or kV according to patient size, use of iterative reconstruction technique). Reading Location: [id number]
--- NOTE | 2024-04-22 16:11 | ED.RN ---
pt dozing off in bed and o2 sats decrease to 87% on room air after morphine. 2L nasal cannula applied and provider notified
[2024-04-22 17:00] VITALS: BP 155/80; PULSE 93; RESP 13; O2SAT 97
[2024-04-22 17:13] LABS: Troponin T High Sens 2 HR 18 ng/L (<=22)
--- NOTE | 2024-04-22 18:26 | HP.PCM.HOS_ITS ---
HPI - General General Date of Admission: 04/22/24 HPI Narrative KIRK TELLO, is a 73 M who presents after a fall at home. He states that he got a little bit dizzy and lost his balance and fell backwards and hit his head. CT of the brain did not show bleed. He has been complaining of severe right hip pain however imaging does not show any fracture or dislocation at this time. He does admit to drinking at least half a pint of whiskey every night and he has been doing that for the last 2 years after his . He states that he is gone several days in the past without drinking without any withdrawal symptoms however he is unbalanced here in the hospital and does appear little bit anxious and restless with hand tremors, and he scored a 9 on CIWA scale. Of note his last drink was last evening REPLACED BY [facility] Medical History Basal cell carcinoma of anterior chest Wears glasses Wears dentures Depression Anxiety Alcohol use Arthritis History of renal disease Back pain Injury of head and neck History of ulceration History of IBS History of diverticulitis Gastric reflux CPAP (continuous positive airway pressure) dependence Former smoker COPD (chronic obstructive pulmonary disease) Shortness of breath on exertion History of pain when walking History of edema History of stress test Encounter for screening for COVID-19 Chest wall contusion (~12/18/20) HTN (hypertension) Home Medications ?Medication ?Instructions ?Recorded ?Last Taken ?Type lisinopril 20 mg tablet 20 mg PO BID blood pressure 03/16/18 04/21/24 History pantoprazole 40 mg tablet,delayed 40 mg PO BID reflux 09/07/19 04/21/24 History release ibuprofen 600 mg tablet 600 mg PO Q6H PRN pain 04/14 Unknown History lorazepam 0.5 mg tablet 0.5 mg PO BID PRN anxiety 04/21/24 History doxepin 10 mg capsule 10 mg PO QHS PRN insomnia 04/21/24 History albuterol sulfate 2.5 mg/3 mL 2.5 mg inhalation Q6H AZ N 05/18/23 Unknown History (0.083 %) solution for nebulization shortness of breat h or wheezing fluvoxamine 100 mg tablet 100 mg PO QHS 05/18/2304/21 History amlodipine 5 mg tablet 5 mg PO DAILY 05/24/2304/21 History omeprazole 40 mg capsule,delayed 40 mg PO DAILY 04/21/24 History release ondansetron 4 mg disintegrating 4 mg PO Q8H PRN Nausea 04/22/24 Unknown History tablet Allergy/AdvReac Type Severity Reaction Status Date / Time amoxicillin Allergy doesnt Verified 04/22/24 13:23 rememeber fluoxetine (From Prozac) AdvReac Other Verified 04/22/24 13:23 Family History Mother Myocardial infarction Hypertension Father Cancer Hypertension Surgical History Hx of colonoscopy Hx of blepharoplasty Hx of esophagogastroduodenoscopy History of eye surgery Social History household members: none Smoking Status: Former smoker how long ago did patient quit smoking: quit 20 yr ago alcohol intake: current Alcohol type: hard liquor substance use type: does not use additional social history: personal hx of PEs ROS Constitutional Constitutional: Reports weakness; Denies chills, fatigue, fever(s) or malaise Eyes Eyes: Denies blurry vision ENT HEENT: Denies headache(s) or nasal discharge Cardiovascular Cardiovascular: Denies chest pain, dyspnea on exertion or syncope Respiratory/Chest Respiratory/Chest: Denies cough, shortness of breath at rest or shortness of breath with exertion Gastrointestinal Gastrointestinal: Denies constipation, diarrhea, nausea or vomiting Genitourinary Genitourinary: Denies dysuria Neurologic Neurologic: Reports tremor(s); Denies focal weakness or numbness Psychiatric Psychiatric: Denies anxiety or depression Vital Signs Vital Signs Vital Signs: 04/22/24 13:20 04/22/24 13:23 04/22/24 13:23 Temperature 98.1 F Temperature Source Oral Pulse Rate 87 Respiratory Rate 16 Respiratory Effort Normal Non-Labored Respiratory Depth Normal Respiratory Pattern Normal Blood Pressure 136/76 H 146/81 H Blood Pressure Mean 96 102 Pulse Ox 98 Oxygen Delivery Method Room Air Room Air Oxygen Flow Rate (L/min) 94 04/22/24 15:19 04/22/24 17:00 Temperature Temperature Source Pulse Rate 82 93 Respiratory Rate 18 13 Respiratory Effort Respiratory Depth Respiratory Pattern Blood Pressure 116/55 L 155/80 H Blood Pressure Mean 75 105 Pulse Ox 95 97 Oxygen Delivery Method Nasal Cannula Oxygen Flow Rate (L/min) Weight Weight: 262 lb 5.601 oz Body Mass Index (BMI) 39.9 Physical Exam Narrative General: Alert, Oriented x3, Cooperative, No apparent distress, restless HEENT: Atraumatic, PERRLA, EOMI, Normocephalic Oral: Moist Mucosa Neck: Supple, No JVD Lungs: Diminished, Normal air movement, No rhonchi, No wheeze, No rales Cardiovascular: Regular rate, Regular Rhythm, Normal S1, Normal S2, No murmurs Abdomen: Soft, Non Tender, Non-Distended, No Hepato-splenomegaly Extremities: No edema, Capillary Refill Less than 3 Seconds Skin: No rashes, No breakdown Musculoskeletal: Pain to palpation of his right anterior hip, pain with hip extension Neurological: No focal neurological deficits, Motor Exam 5/5 strength throughout, Sensory exam intact to light touch and pain Psych/Mental Status: Normal Affect, Appropriate, anxious Results Lab / Micro Data 04/22/24 13:43 04/22/24 13:43 Labs: Laboratory Results - last 24 hr 04/22/24 13:43: WBC 14.7 H, RBC 4.45 L, Hgb 14.5, Hct 42.9, MCV 96.4 H, MCH 32.6 H, MCHC 33.8, RDW Std Deviation 48.8 H, RDW Coeff of [place] 13.6, Plt Count 212, MPV 9.8, Immature Gran % (Auto) 1.000 H, Neut % (Auto) 82.7 H, Lymph % (Auto) 9.0 L, [place] % (Auto) 7.0, Eos % (Auto) 0.1, Baso % (Auto) 0.2, Absolute Neuts (auto) 12.2 H, Absolute Lymphs (auto) 1.32, Nucleated RBC % 0, PT 12.3, INR 0.9, Sodium 138, Potassium 4.3, Chloride 99, Carbon Dioxide 25.2, Anion Gap 14, BUN 16, Creatinine 0.93, Estim Creat Clear Calc 86.05, Est GFR (MDRD) Non-Af 86, BUN/Creatinine Ratio 16.9, Glucose 79, Calcium 9.2, Total Bilirubin 0.56, Direct Bilirubin 0.32 H, AST 33, ALT 29, Alkaline Phosphatase 69, Troponin T High Sens 18, Total Protein 7.1, Albumin 4.2, Globulin 2.9, Lipase 59 04/22/24 16:45: Troponin T Hi Sens 2 Hr 18 Imaging Radiology Impression Brain CT 04/22/24 13:54 IMPRESSION: No acute intracranial abnormality. Reading [facility] Cervical Spine CT 04/22/24 13:54 IMPRESSION: No acute osseous abnormality. One or more dose reduction techniques were used (e.g., Automated exposure control, adjustment of the mA and/or kV according to patient size, use of iterative reconstruction technique). Reading Location[facility] Chest X-Ray 04/22/24 14:25 IMPRESSION: No acute airspace abnormality. Reading Location: [facility] Hip/Pelvis X-Ray 04/22/24 14:25 IMPRESSION: Negative for acute displaced fracture or dislocation. Mild/moderate bilateral hip osteoarthritis. Reading Location: [facility] Lumbar Spine X-Ray 04/22/24 14:25 IMPRESSION: Mild compression deformity of the superior endplate of L3. Correlate for acuity. No significant malalignment. Mild/moderate multilevel disc space narrowing. Moderate lower lumbar facet arthrosis from L4 through S1. Sacroiliac joints are intact. Mild degenerative changes of the hips. Calcified abdominal aorta. Reading Location[facility] Lower Extremity CT 04/22/24 15:26 IMPRESSION: No fracture or dislocation. One or more dose reduction techniques were used (e.g., Automated exposure control, adjustment of the mA and/or kV according to patient size, use of iterative reconstruction technique). Reading Location: [id number] Assessment & Plan Assessment/Plan (1) Acute pain of right hip: (2) Fall: (3) Alcohol withdrawal: PLAN: Plan 1. Fall due to alcohol withdrawal with acute pain of the right hip ? No fracture ? He does not want to do the alcohol withdrawal protocol ? Continue with CIWA and Ativan as needed ? PT/OT as he was very unsteady on his feet and the pain in his right hip was preventing him from being able to ambulate well ? Consult case management ? Leukocytosis is likely reactive to his trauma, no signs of infection at this time we will hold off antibiotics and recheck in the morning 2. Essential HTN ? Blood pressures are stable ? Continue with his home blood pressure medications ? Will monitor and make adjustments as necessary 3. GERD with a history of GI bleed ? Stable ? Continue with PPI hemoglobin is normal DVT: Lovenox 75 minutes was spent on direct patient care, including documentation as well as chart review and collaboration with colleagues Charges/Coding Visit Charges Inpatient E&M: 33110 Init Hosp L3
[2024-04-22 18:43] VITALS: BP 155/80; PULSE 93; RESP 13; TEMP 36.4; O2SAT 97
[2024-04-22] MEDS: Lorazepam 2 MG/ML WCH Syringe 1 MG IV (18:57)
[2024-04-22 19:15] LABS: Alcohol, Blood (Medical)-Serum 91.6 mg/dL (<=10.0)
[2024-04-22 19:30] VITALS: BP 154/78; PULSE 94; RESP 18; TEMP 36.8; O2SAT 96
[2024-04-22 19:32] VITALS: BMI 29.9
[2024-04-22] MEDS: Ondansetron ODT 4 MG Tablet PO (19:46)
[2024-04-22] MEDS: 0.9% Saline Lock 10 ML Syringe IV (21:20)
[2024-04-22] MEDS: Lisinopril 20 MG Tablet PO (21:20)
[2024-04-22] MEDS: Lorazepam 2 MG/ML WCH Syringe IV (21:20)
[2024-04-22] MEDS: proMETHazine 25 MG/ML Syringe IM (22:22)
[2024-04-23 02:33] VITALS: BP 163/78; PULSE 102; RESP 18; TEMP 36.5; O2SAT 92
[2024-04-23] MEDS: Morphine 2 MG/ML Syringe IV (02:37)
[2024-04-23] MEDS: 0.9% Saline Lock 10 ML Syringe IV ×3 (02:37→20:22)
[2024-04-23] MEDS: Lorazepam 2 MG/ML WCH Syringe IV (04:26)
[2024-04-23 06:31] LABS: Absolute Lymphocyte Count 0.88 X10^3/uL (0.83-4.51); Absolute Neutrophil Count 6.6 X10^3/uL (2.0-7.7); Basophil# 0.03 X10^3/uL; Basophil% 0.4 % (0-1); Eosinophil# 0.01 X10^3/uL; Eosinophils% 0.1 % (0-5); Hematocrit 40.4 % (40-54); Hemoglobin 13.7 g/dL (13.0-16.5); Lymphocyte # 0.88 X10^3/ul (0.83-4.51); Lymphocyte % 10.4 % (19-41); Mean Corp Hgb Conc 33.9 g/dL (32-36); Mean Corpuscular Hgb 32.5 pg (27.0-32.0); Mean Corpuscular Volume 95.7 fL (80-94); Mean Platelet Vol. 9.9 fl (6.2-12.0); Monocyte# 0.93 X10^3/uL; NRBC Flagged by Analyzer 0 % (0-5); Neutrophil # 6.57 X10^3/uL (2.7-7.7); Neutrophil % 77.5 % (47-70); Platelet Count 148 K/mm3 (150-450); RBC Distribution Width CV 13.7 % (11.6-14.6); RBC Distribution Width SD 48.1 fl (35.1-43.9); Red Blood Count 4.22 M/mm3 (4.6-6.2); White Blood Count 8.5 K/mm3 (4.4-11.0)
--- NOTE | 2024-04-23 08:22 | MRI_ITS ---
PROCEDURE: Noncontrast MRI of the pelvis. REASON FOR EXAM: RIGHT HIP PAIN TECHNIQUE: Multiplanar, multisequence MRI images of the pelvis were obtained without IV contrast. COMPARISON: Right hip CT from the same day. FINDINGS: The included lower lumbar spine, bones of the pelvis, and proximal femurs are intact. No acute fracture or dislocation of either femur. Serpiginous T2 signal of the superior left femoral head, suspicious for avascular necrosis. No gross pelvic mass or adenopathy. The origins of the hamstring complexes are intact. No sizable greater trochanteric bursal fluid collection. The distal attachments of the gluteus medius/minimus tendons and iliopsoas tendons are intact. Lobulated contour of the urinary bladder, without discrete bladder lesion. There is partially included abnormal heterogeneous increased T2 signal involving the right psoas muscle, extending into the pelvis. The myotendinous junction of the distal psoas muscle appears intact. There is a small amount of fluid signal along the anterior margin of the right psoas muscle. The left psoas muscle are unremarkable. A few lower small bowel segments are borderline dilated at 2.7 cm, nonspecific. A tiny amount of fluid extends from the anterior margin of the right psoas muscle into the right hemipelvis. No discrete drainable lower abdominal/pelvic fluid collection is demonstrated. MRI/Pelvis (Routine) IMPRESSION: There is abnormal heterogeneous increased T2 signal involving the right psoas m uscle, suspicious for partial tear or injury. An infectious/inflammatory process, such as developing right psoas muscle abscess may be a differential consideration. Short-term follow-up contrast-enhanced abdominal/pelvic CT scan is suggested. No acute bony abnormality of the pelvis or proximal femurs. 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 Origins of the hamstring complexes and distal attachments of the gluteus medius /minimus and iliopsoas tendons are intact. The acetabular labrum are not well evaluated on this study. A few borderline dilated lower small bowel segments are demonstrated, nonspecif ic. Suggest correlation with clinical exam findings. Reading Location: [facility]
[2024-04-23 08:45] VITALS: BP 153/82; PULSE 110; RESP 18; TEMP 36.8; O2SAT 94
[2024-04-23] MEDS: Lisinopril 20 MG Tablet PO ×2 (08:57→20:21)
[2024-04-23] MEDS: amLODIPine 5 MG Tablet PO (08:57)
[2024-04-23] MEDS: Enoxaparin 40 MG/0.4 ML Syringe SC (08:57)
[2024-04-23] MEDS: Pantoprazole Sodium 40 MG Tablet PO ×2 (08:58→20:21)
[2024-04-23] MEDS: oxyCODONE 5 MG Tablet 10 MG PO ×2 (08:58→16:38)
[2024-04-23 11:00] VITALS: BP 162/85; PULSE 104; RESP 20; O2SAT 95
[2024-04-23] MEDS: Morphine 4 MG/ML Syringe IV ×2 (11:01→20:22)
[2024-04-23 13:14] VITALS: BP 151/86; PULSE 98; RESP 18; TEMP 36.7; O2SAT 92
[2024-04-23 13:55] LABS: Anion Gap 11 (5-15); BUN 17 mg/dL (4-19); BUN/Creat Ratio 21.4 RATIO (10-20); Calcium,Total 8.9 mg/dL (7.6-11.0); Carbon Dioxide 25.6 mmol/L (21.0-32.0); Chloride 97 mmol/L (98-108); Creatinine, Serum 0.78 mg/dL (0.70-1.20); EST Glomerular Filtration Rate 93 (>60); Estimated Creatinine Clearance 86.71 ml/min (50-250); Glucose 95 mg/dL (70-99); Potassium 4.7 mmol/L (3.3-5.1); Sodium Level 133 mmol/L (133-145)
--- NOTE | 2024-04-23 15:42 | PN.HOSP_ITS ---
Reason for Visit Reason for Visit: Diagnoses Alcohol use, unspecified with withdrawal, unspecified (04/22/24) Pain in right hip (04/22/24) Unspecified fall, initial encounter (04/22/24) Subjective Subjective Patient was seen and examined today, he still complains of pain in his right hip. I have ordered an MRI of the right hip to further examine the hip. Objective Data Objective Data Vital Signs: Vital Signs Temp Pulse Resp BP Pulse Ox O2 Del Method O2 Flow Rate 98.0 F 98 18 151/86 H 92 Room Air 94 04/23/24 13:14 04/23/24 13:14 04/23/24 13:14 04/23/24 13:14 04/23/24 13:14 04/23/24 13:15 04/22/24 13:23 Oxygen Flow Rate (L/min) 94 Oxygen Delivery Method Room Air Weight: 89.5 kg Body Mass Index (BMI) 29.9 Intake & Output: Intake and Output for Last 24 Hours 04/21/24 04/22/24 04/23/24 23:59 23:59 23:59 Intake Total 800 / 800 Output Total 900 / 900 Balance -100 / -100 Lab / Micro Data 04/23/24 06:04 04/23/24 06:04 Labs: Laboratory Results - last 24 hr 04/22/24 13:43: Ethyl Alcohol Cancelled 04/22/24 16:45: Troponin T Hi Sens 2 Hr 18 04/22/24 18:37: Ethyl Alcohol 91.6 H 04/23/24 06:04: WBC 8.5, RBC 4.22 L, Hgb 13.7, Hct 40.4, MCV 95.7 H, MCH 32.5 H, MCHC 33.9, RDW Std Deviation 48.1 H, RDW Coeff of [place] 13.7, Plt Count 148 L, MPV 9.9, Immature Gran % (Auto) 0.600, Neut % (Auto) 77.5 H, Lymph % (Auto) 10.4 L, [place] % (Auto) 11.0 H, Eos % (Auto) 0.1, Baso % (Auto) 0.4, Absolute Neuts (auto) 6.6, Absolute Lymphs (auto) 0.88, Nucleated RBC % 0, Sodium 133, Potassium 4.7, Chloride 97 L, Carbon Dioxide 25.6, Anion Gap 11, BUN 17, Creatinine 0.78, Estim Creat Clear Calc 86.71, Est GFR (MDRD) Non-Af 93, BUN/Creatinine Ratio 21.4 H, Glucose 95, Calcium 8.9 Radiography Diagnostic Testing: Radiology Impression Lower Extremity CT 04/22/24 15:26 IMPRESSION: No fracture or dislocation. One or more dose reduction techniques were used (e.g., Automated exposure control, adjustment of the mA and/or kV according to patient size, use of iterative reconstruction technique). Reading Location: [facility] Physical Exam Const alert, oriented x3, no apparent distress and healthy appearing General Appearance: cooperative, well kempt and well developed Orientation / Consciousness: awake, oriented to person, oriented to place and oriented to time HEENT normocephalic, head/scalp atraumatic and moist oral mucous membranes Eyes PERRL, EOMs intact bilaterally and conjunctivae normal Neck supple, no JVD, thyroid normal and no carotid bruits General: trachea midline Resp normal respiratory effort, no retractions, no use of accessory muscles and clear to auscultation bilaterally Auscultation: Negative for rales, rhonchi or wheezes Cardio regular rate, regular rhythm, S1 normal heart sound, S2 normal heart sound, no murmurs, no rub and no gallops GI normal to inspection, nondistended, normoactive bowel sounds, soft to palpation, non-tender and non-distended Extremity no clubbing, cyanosis or edema Skin no rashes or lesions noted General Skin Exam: no breakdown Neuro oriented x3, CN's II-XII intact bilaterally, no focal motor deficits and no sensory deficits noted Sensorium / Orientation: awake and alert Speech: speech normal Psych affect normal Assessment & Plan Assessment/Plan (1) Acute pain of right hip: PLAN: Plan 1. Acute hip pain-etiology unclear-patient will undergo an MRI of the pelvis and right hip, patient will continue to see PT and OT #2 essential hypertension-patient remains on amlodipine and lisinopril #3 chronic obstructive pulmonary disease-patient uses an albuterol inhaler as needed wheezing, patient is on albuterol aerosols every 6 hours as needed here I do not believe the patient is going through alcohol withdrawal, patient will receive Ativan p.o. as needed for anxiety, CIWA scores will be stopped Total clinical time spent by myself addressing patient's medical issues, reviewing all of his data, and collaborating with patient's care team: 35 minutes Charges/Coding Visit Charges Inpatient E&M: 42954 Subs Hosp L2
--- NOTE | 2024-04-23 16:21 | CASEMGMT ---
Met with patient to complete JUNIOR form. JUNIOR form explained to patient who voiced understanding and signed form. Original form placed in pt?s chart and copy provided to patient. Janett Garza, Discharge Planning Asst
[2024-04-23 16:35] VITALS: BP 167/95; PULSE 95; RESP 20; TEMP 36.8; O2SAT 95
[2024-04-23 20:16] VITALS: BP 157/89; PULSE 96; RESP 18; TEMP 36.6; O2SAT 92
[2024-04-23] MEDS: Ondansetron ODT 4 MG Tablet PO (23:07)
[2024-04-24 02:12] VITALS: BP 145/88; PULSE 91; RESP 18; TEMP 36.7; O2SAT 92
[2024-04-24] MEDS: oxyCODONE 5 MG Tablet 10 MG PO ×2 (02:15→23:15)
[2024-04-24] MEDS: LORazepam 0.5 MG Tablet PO (02:15)
[2024-04-24 09:00] VITALS: BP 149/85; PULSE 80; RESP 16; TEMP 36.6; O2SAT 92
[2024-04-24] MEDS: Morphine 4 MG/ML Syringe IV ×2 (09:04→15:34)
[2024-04-24] MEDS: Ondansetron ODT 4 MG Tablet PO (09:04)
[2024-04-24] MEDS: 0.9% Saline Lock 10 ML Syringe IV ×4 (09:04→22:11)
[2024-04-24] MEDS: Lisinopril 20 MG Tablet PO ×2 (09:10→22:13)
[2024-04-24] MEDS: amLODIPine 5 MG Tablet PO (09:10)
[2024-04-24] MEDS: Pantoprazole Sodium 40 MG Tablet PO ×2 (09:10→22:13)
[2024-04-24] MEDS: Enoxaparin 40 MG/0.4 ML Syringe SC (09:10)
--- NOTE | 2024-04-24 09:10 | NURSING ---
Paged Dr. Rush for consult via [employer] at this time.
--- NOTE | 2024-04-24 10:31 | PCM.CONS.GEN ---
Assessment & Plan Assessment/Plan (1) Strain of right psoas muscle: QUALIFIERS: Encounter type: initial encounter Qualified Code(s): S76.011A - Strain of muscle, fascia and tendon of right hip, initial encounter PLAN: Plan Status post ground-level fall injuring right hip no prior anterior hip pain that all began after the fall and trauma MRI/ct no acute fracture imaging consistent with psoas partial tear/strain. There is no surgical intervention warranted here I am not concerned for infection given the clinical vignette. Management consistent with pain control weightbearing as tolerated with physical therapy likely will require placement prior to returning home. HPI Consult Data Date of Consult: 04/24/24 HPI Narrative HPI Narrative: KIRK TELLO, is a 73 M who alcoholic had a ground-level fall he cannot recall the details of the events of what happened with as he was intoxicated. However he states he had no anterior hip pain prior to the fall and this all started after the fall. His pain is located primarily in the groin and is worse with hip flexion and extension. He did have CT and MRI performed right hip upon admission which demonstrates a psoas strain no fracture. There is no significant joint effusion bone edema or other soft tissue swelling. Denies fevers or chills [facility] History Basal cell carcinoma of anterior chest Wears glasses Wears dentures Depression Anxiety Alcohol use Arthritis History of renal disease Back pain Injury of head and neck History of ulceration History of IBS History of diverticulitis Gastric reflux CPAP (continuous positive airway pressure) dependence Former smoker COPD (chronic obstructive pulmonary disease) Shortness of breath on exertion History of pain when walking History of edema History of stress test Encounter for screening for COVID-19 Chest wall contusion (~12/18/20) HTN (hypertension) Home Medications ?Medication ?Instructions ?Recorded ?Last Taken ?Type lisinopril 20 mg tablet 20 mg PO BID blood pressure 03/16/18 04/21/24 History pantoprazole 40 mg tablet,delayed 40 mg PO BID reflux 09/07/19 04/21/24 History release ibuprofen 600 mg tablet 600 mg PO Q6H PRN pain 04/15/23 Unknown History lorazepam 0.5 mg tablet 0.5 mg PO BID PRN anxiety 04/15/23 04/21/24 History doxepin 10 mg capsule 10 mg PO QHS PRN insomnia 04/17/23 04/21/24 History albuterol sulfate 2.5 mg/3 mL 2.5 mg inhalation Q6H PRN 05/18/23 Unknown History (0.083 %) solution for nebulization shortness of breath or wheezing fluvoxamine 100 mg tablet 100 mg PO QHS 05/18/23 04/21/24 History amlodipine 5 mg tablet 5 mg PO DAILY 05/24/23 04/21/24 History omeprazole 40 mg capsule,delayed 40 mg PO DAILY 12/30/23 04/21/24 History release ondansetron 4 mg disintegrating 4 mg PO Q8H PRN Nausea 04/22/24 Unknown History tablet promethazine 25 mg tablet 25 mg PO TID PRN PRN nausea 04/23/24 Unknown History Allergy/AdvReac Type Severity Reaction Status Date / Time amoxicillin Allergy doesnt Verified 04/22/24 13:23 rememeber fluoxetine (From Prozac) AdvReac Other Verified 04/22/24 13:23 Family History Mother Myocardial infarction Hypertension Father Cancer Hypertension Surgical History Hx of colonoscopy Hx of blepharoplasty Hx of esophagogastroduodenoscopy History of eye surgery Social History household members: none Smoking Status: Former smoker how long ago did patient quit smoking: quit 20 yr ago alcohol intake: current Alcohol type: hard liquor substance use type: does not use additional social history: personal hx of PEs Physical Exam Const alert, oriented x3 and no apparent distress General Appearance: cooperative; Negative for comfortable Extremity Extremity Narrative: There is no erythema or ecchymosis or soft tissue swelling around the hip he does have pain in the groin with hip flexion and extension he is able to do plantarflex and dorsiflex the ankle there is no joint effusion about the knee he has intact sensation to light touch throughout the lower extremity. Palpable pedal pulses. Lab / Micro Data Attestation: I reviewed the patient's lab results. 04/23/24 06:04 04/23/24 06:04 Labs: Laboratory Results - last 24 hr 04/23/24 06:04: Sodium 133, Potassium 4.7, Chloride 97 L, Carbon Dioxide 25.6, Anion Gap 11, BUN 17, Creatinine 0.78, Estim Creat Clear Calc 86.71, Est GFR (MDRD) Non-Af 93, BUN/Creatinine Ratio 21.4 H, Glucose 95, Calcium 8.9 Imaging Radiology Impression Pelvis MRI 04/23/24 08:22 IMPRESSION: There is abnormal heterogeneous increased T2 signal involving the right psoas muscle, suspicious for partial tear or injury. An infectious/inflammatory process, such as developing right psoas muscle abscess may be a differential consideration. Short-term follow-up contrast-enhanced abdominal/pelvic CT scan is suggested. No acute bony abnormality of the pelvis or proximal femurs. 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 Origins of the hamstring complexes and distal attachments of the gluteus medius/minimus and iliopsoas tendons are intact. The acetabular labrum are not well evaluated on this study. A few borderline dilated lower small bowel segments are demonstrated, nonspecific. Suggest correlation with clinical exam findings. Reading [facility]
[2024-04-24] MEDS: DiphenhydrAMINE 50 MG/ML Syringe 25 MG IV (11:10)
--- NOTE | 2024-04-24 12:27 | CASEMGMT ---
Addendum entered by Stefanie Saldana 04/24/24 15:36: Social Work- [facility] accepted and started precert. Pt updated. QUE Desai Original Note: Social Work- SW met with pt to discuss preferences at discharge. SW introduced self and role; pt agreeable to meeting. A list of SNF providers including quality and resource use data and consistent with the patient?s preferred geographic region, medical needs, and insurance network were provided from the [facility] Guide. Pt selected [facility] and [facility]. CHRISTIANE completed referral to TCU; referral declined. [facility] notified of referral request. CHRISTIANE remains available to follow. QUE Desai
--- NOTE | 2024-04-24 12:57 | CASEMGMT ---
Discharge Planning Referral sent to [facility]. Janett Garza DC Planning Asst.
--- NOTE | 2024-04-24 14:15 | CASEMGMT ---
[facility] has accepted and will submit for precert. SW updated. Janett Garza DC Planning Asst.
[2024-04-24 15:00] VITALS: BP 159/92; PULSE 90; RESP 16; TEMP 36.5; O2SAT 92
[2024-04-24] MEDS: Ondansetron 4 MG/2 ML Vial 8 MG IV (15:20)
[2024-04-24] MEDS: Metoclopramide 10 MG/2 ML Vial IV (15:20)
--- NOTE | 2024-04-24 17:04 | PN.HOSP_ITS ---
Reason for Visit Reason for Visit: Diagnoses Alcohol use, unspecified with withdrawal, unspecified (04/22/24) Pain in right hip (04/22/24) Strain of muscle, fascia and tendon of right hip, initial encounter (04/22/24) Unspecified fall, initial encounter (04/22/24) Subjective Subjective Patient was seen and examined today, I talked with his granddaughter today for about 10 minutes and also talked to the patient regarding the need for him to go to a [facility] facility for short-term rehab services, patient did not seem to be against this, I explained to him that he could not go home because he was unable to walk and needed skilled therapy. Patient has been nauseated today, I gave him IV Benadryl at his own request but this did not help, I have then given him Zofran and Reglan Objective Data Objective Data Vital Signs: Vital Signs Temp Pulse Resp BP Pulse Ox O2 Del Method O2 Flow Rate 97.7 F L 90 16 159/92 H 92 Room Air 94 04/24/24 15:00 04/24/24 15:00 04/24/24 15:00 04/24/24 15:00 04/24/24 15:00 04/24/24 15:00 04/22/24 13:23 Oxygen Flow Rate (L/min) 94 Oxygen Delivery Method Room Air Weight: 89.5 kg Body Mass Index (BMI) 29.9 Intake & Output: Intake and Output for Last 24 Hours 04/22/24 04/23/24 04/24/24 23:59 23:59 23:59 Intake Total 1300 / 1300 200 / 200 Output Total 1900 / 1900 700 / 700 Balance -600 / -600 -500 / -500 Lab / Micro Data 04/23/24 06:04 04/23/24 06:04 Radiography Diagnostic Testing: Radiology Impression Pelvis MRI 04/23/24 08:22 IMPRESSION: There is abnormal heterogeneous increased T2 signal involving the right psoas muscle, suspicious for partial tear or injury. An infectious/inflammatory process, such as developing right psoas muscle abscess may be a differential consideration. Short-term follow-up contrast-enhanced abdominal/pelvic CT scan is suggested. No acute bony abnormality of the pelvis or proximal femurs. 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 Origins of the hamstring complexes and distal attachments of the gluteus medius/minimus and iliopsoas tendons are intact. The acetabular labrum are not well evaluated on this study. A few borderline dilated lower small bowel segments are demonstrated, nonspecific. Suggest correlation with clinical exam findings. [facility] Physical Exam Narrative alert, oriented x3, no apparent distress and healthy appearing General Appearance: cooperative, well kempt and well developed Orientation / Consciousness: awake, oriented to person, oriented to place and oriented to time HEENT normocephalic, head/scalp atraumatic and moist oral mucous membranes Eyes PERRL, EOMs intact bilaterally and conjunctivae normal Neck supple, no JVD, thyroid normal and no carotid bruits General: trachea midline Resp normal respiratory effort, no retractions, no use of accessory muscles and clear to auscultation bilaterally Auscultation: Negative for rales, rhonchi or wheezes Cardio regular rate, regular rhythm, S1 normal heart sound, S2 normal heart sound, no murmurs, no rub and no gallops GI normal to inspection, nondistended, normoactive bowel sounds, soft to palpation, non-tender and non-distended Extremity no clubbing, cyanosis or edema Skin no rashes or lesions noted General Skin Exam: no breakdown Neuro oriented x3, CN's II-XII intact bilaterally, no focal motor deficits and no sensory deficits noted Sensorium / Orientation: awake and alert Speech: speech normal Psych affect normal Assessment & Plan Assessment/Plan (1) Strain of right psoas muscle: QUALIFIERS: Encounter type: initial encounter Qualified Code(s): S76.011A - Strain of muscle, fascia and tendon of right hip, initial encounter (2) Acute pain of right hip: PLAN: Plan 1. Right psoas muscle strain with resultant inability to ambulate due to pain- PT and OT will continue to work with the patient, I had orthopedic surgery see the patient today and they feel that analgesics and physical therapy is the recommended course. #2 essential hypertension-patient remains on amlodipine and lisinopril #3 chronic obstructive pulmonary disease-patient uses an albuterol inhaler as needed wheezing, patient is on albuterol aerosols every 6 hours as needed here #4 uncontrolled nausea-etiology unclear, again patient was given Zofran and Reglan, nursing will contact me if this is ineffective #5 alcohol use disorder-patient's granddaughter states that the patient drinks as much is 1/5 of alcohol daily, patient so far has not shown any evidence of alcohol withdrawal. I do not believe the patient is going through alcohol withdrawal, patient will receive Ativan p.o. as needed for anxiety, CIWA scores will be stopped Total clinical time spent by myself addressing patient's medical issues, reviewing all of his data, and collaborating with patient's care team: 35 minutes Charges/Coding Visit Charges Inpatient E&M: 26460 Subs Hosp L2
[2024-04-24] MEDS: Calcium Carbonate 500 MG Tablet PO (20:41)
[2024-04-24 22:09] VITALS: BP 154/77; PULSE 89; RESP 18; TEMP 37.1; O2SAT 95
[2024-04-25 03:06] VITALS: BP 157/98; PULSE 87; RESP 16; TEMP 36.9; O2SAT 95
[2024-04-25] MEDS: Ondansetron ODT 4 MG Tablet PO ×2 (03:08→11:12)
[2024-04-25] MEDS: 0.9% Saline Lock 10 ML Syringe IV ×5 (05:10→23:30)
[2024-04-25] MEDS: Morphine 4 MG/ML Syringe IV ×3 (05:10→17:08)
[2024-04-25 07:45] VITALS: BP 154/107; PULSE 85; RESP 16; TEMP 36.5; O2SAT 92
[2024-04-25] MEDS: oxyCODONE 5 MG Tablet 10 MG PO ×2 (08:14→16:09)
[2024-04-25] MEDS: Acetaminophen 325 MG Tablet 650 MG PO ×2 (08:14→16:10)
[2024-04-25] MEDS: Lisinopril 20 MG Tablet PO ×2 (08:16→21:17)
[2024-04-25] MEDS: Enoxaparin 40 MG/0.4 ML Syringe SC (08:16)
[2024-04-25] MEDS: amLODIPine 5 MG Tablet PO (08:16)
[2024-04-25] MEDS: Pantoprazole Sodium 40 MG Tablet PO ×2 (08:16→21:17)
[2024-04-25 10:00] VITALS: BP 162/80
[2024-04-25] MEDS: LORazepam 0.5 MG Tablet PO (11:11)
--- NOTE | 2024-04-25 11:29 | PN.HOSP_ITS ---
Reason for Visit Reason for Visit: Diagnoses Alcohol use, unspecified with withdrawal, unspecified (04/22/24) Pain in right hip (04/22/24) Strain of muscle, fascia and tendon of right hip, initial encounter (04/22/24) Unspecified fall, initial encounter (04/22/24) Subjective Subjective Patient seen and examined today, he continues to complain of pain in his knee area and thigh, I explained to him that due to his muscle strain he would have pain in those areas. Patient would like to take doxepin at night for sleep-he takes it at home but he is not sure of the dosage. Objective Data Objective Data Vital Signs: Vital Signs Temp Pulse Resp BP Pulse Ox O2 Del Method O2 Flow Rate 97.7 F L 85 16 162/80 H 92 Room Air 94 04/25/24 07:45 04/25/24 07:45 04/25/24 07:45 04/25/24 10:00 04/25/24 07:45 04/25/24 08:10 04/22/24 13:23 Oxygen Flow Rate (L/min) 94 Oxygen Delivery Method Room Air Weight: 89.5 kg Body Mass Index (BMI) 29.9 Intake & Output: Intake and Output for Last 24 Hours 04/23/24 04/24/24 04/25/24 23:59 23:59 23:59 Intake Total 1300 / 1300 200 / 200 Output Total 1900 / 1900 1550 / 1800 700 / 700 Balance -600 / -600 -1350 / -1600 -700 / -700 Lab / Micro Data 04/23/24 06:04 04/23/24 06:04 Physical Exam Narrative alert, oriented x3, no apparent distress and healthy appearing General Appearance: cooperative, well kempt and well developed Orientation / Consciousness: awake, oriented to person, oriented to place and oriented to time HEENT normocephalic, head/scalp atraumatic and moist oral mucous membranes Eyes PERRL, EOMs intact bilaterally and conjunctivae normal Neck supple, no JVD, thyroid normal and no carotid bruits General: trachea midline Resp normal respiratory effort, no retractions, no use of accessory muscles and clear to auscultation bilaterally Auscultation: Negative for rales, rhonchi or wheezes Cardio regular rate, regular rhythm, S1 normal heart sound, S2 normal heart sound, no murmurs, no rub and no gallops GI normal to inspection, nondistended, normoactive bowel sounds, soft to palpation, non-tender and non-distended Extremity no clubbing, cyanosis or edema Skin no rashes or lesions noted General Skin Exam: no breakdown Neuro oriented x3, CN's II-XII intact bilaterally, no focal motor deficits and no sensory deficits noted Sensorium / Orientation: awake and alert Speech: speech normal Psych affect normal Assessment & Plan Assessment/Plan (1) Strain of right psoas muscle: QUALIFIERS: Encounter type: initial encounter Qualified Code(s): S76.011A - Strain of muscle, fascia and tendon of right hip, initial encounter (2) Acute pain of right hip: PLAN: Plan 1. Right psoas muscle strain with resultant inability to ambulate due to pain- PT and OT will continue to work with the patient, we are awaiting approval for placement in a longterm facility for further inpatient rehab services, I will place the patient on OxyContin in addition to his as needed Oxy IR. #2 essential hypertension-patient remains on amlodipine and lisinopril #3 chronic obstructive pulmonary disease-patient uses an albuterol inhaler as needed wheezing, patient is on albuterol aerosols every 6 hours as needed here #4 uncontrolled nausea-resolved at this time #5 alcohol use disorder-patient's granddaughter states that the patient drinks as much is 1/5 of alcohol daily, patient so far has not shown any evidence of alcohol withdrawal. I do not believe the patient is going through alcohol withdrawal, patient will receive Ativan p.o. as needed for anxiety, CIWA scores will be stopped Total clinical time spent by myself addressing patient's medical issues, reviewing all of his data, and collaborating with patient's care team: 35 minutes Charges/Coding Visit Charges Inpatient E&M: 63312 Subs Hosp L2
[2024-04-25] MEDS: Metoclopramide 10 MG/2 ML Vial 5 MG IV ×3 (12:26→23:30)
[2024-04-25] MEDS: oxyCODONE HCl Cr 10 MG Tablet PO ×2 (12:34→21:17)
[2024-04-25 14:07] VITALS: BP 149/68; PULSE 83; RESP 14; TEMP 36.6; O2SAT 92
--- NOTE | 2024-04-25 16:17 | NURSING ---
All documentation by nursing education consultant Yolande Rausch reviewed by nursing attendant Jessica TORON, RN.
[2024-04-25 17:00] VITALS: BP 133/81; PULSE 80; RESP 20; TEMP 36.6; O2SAT 93
[2024-04-25 21:00] VITALS: BP 149/78; PULSE 83; RESP 18; TEMP 36.7; O2SAT 94
[2024-04-25] MEDS: DOXEPIN HCL 50 MG CAPSULE PO (21:17)
[2024-04-25] MEDS: Polyethylene Glycol 3350 17 GM PACKET PO (23:03)
[2024-04-26 02:59] VITALS: BP 136/85; PULSE 83; RESP 18; TEMP 36.6; O2SAT 93
[2024-04-26] MEDS: Acetaminophen 325 MG Tablet 650 MG PO ×2 (03:00→14:15)
[2024-04-26] MEDS: Metoclopramide 10 MG/2 ML Vial 5 MG IV ×3 (05:52→17:15)
[2024-04-26] MEDS: 0.9% Saline Lock 10 ML Syringe IV ×5 (05:52→17:16)
[2024-04-26 07:45] VITALS: BP 146/90; PULSE 89; RESP 18; TEMP 36.5; O2SAT 94
[2024-04-26] MEDS: oxyCODONE 5 MG Tablet 10 MG PO ×2 (07:50→14:15)
--- NOTE | 2024-04-26 08:19 | CASEMGMT ---
Discharge Planning Updates sent to [facility]. Janett Garza DC Planning Asst.
--- NOTE | 2024-04-26 08:27 | PCM.PN.HOSP ---
Reason for Visit Reason for Visit: Diagnoses Alcohol use, unspecified with withdrawal, unspecified (04/22/24) Pain in right hip (04/22/24) Strain of muscle, fascia and tendon of right hip, initial encounter (04/22/24) Unspecified fall, initial encounter (04/22/24) Subjective Subjective Patient was seen and examined today, he does not complain of any drowsiness from the OxyContin. Patient continues to complain of some discomfort in his right knee, it does not appear to be swollen however. Objective Data Objective Data Vital Signs: Vital Signs Temp Pulse Resp BP Pulse Ox O2 Del Method O2 Flow Rate 97.9 F 83 18 136/85 H 93 Room Air 94 04/26/24 02:59 04/26/24 02:59 04/26/24 02:59 04/26/24 02:59 04/26/24 02:59 04/26/24 02:59 04/22/24 13:23 Oxygen Flow Rate (L/min) 94 Oxygen Delivery Method Room Air Weight: 89.5 kg Body Mass Index (BMI) 29.9 Intake & Output: Intake and Output for Last 24 Hours 04/24/24 04/25/24 04/26/24 23:59 23:59 23:59 Intake Total 200 / 200 400 / 400 Output Total 1550 / 1800 700 / 1350 1450 / 1450 Balance -1350 / -1600 -700 / -1350 -1050 / -1050 Lab / Micro Data 04/23/24 06:04 04/23/24 06:04 Physical Exam Narrative alert, oriented x3, no apparent distress and healthy appearing General Appearance: cooperative, well kempt and well developed Orientation / Consciousness: awake, oriented to person, oriented to place and oriented to time HEENT normocephalic, head/scalp atraumatic and moist oral mucous membranes Eyes PERRL, EOMs intact bilaterally and conjunctivae normal Neck supple, no JVD, thyroid normal and no carotid bruits General: trachea midline Resp normal respiratory effort, no retractions, no use of accessory muscles and clear to auscultation bilaterally Auscultation: Negative for rales, rhonchi or wheezes Cardio regular rate, regular rhythm, S1 normal heart sound, S2 normal heart sound, no murmurs, no rub and no gallops GI normal to inspection, nondistended, normoactive bowel sounds, soft to palpation, non-tender and non-distended Extremity no clubbing, cyanosis or edema Skin no rashes or lesions noted General Skin Exam: no breakdown Neuro oriented x3, CN's II-XII intact bilaterally, no focal motor deficits and no sensory deficits noted Sensorium / Orientation: awake and alert Speech: speech normal Psych affect normal Assessment & Plan Assessment/Plan (1) Strain of right psoas muscle: QUALIFIERS: Encounter type: initial encounter Qualified Code(s): S76.011A - Strain of muscle, fascia and tendon of right hip, initial encounter (2) Acute pain of right hip: PLAN: Plan 1. Right psoas muscle strain with resultant inability to ambulate due to pain-PT and OT will continue to work with the patient, we are awaiting approval for placement in a long term facility for further inpatient rehab services, I have elected to increase the patient's OxyContin to 15 mg twice a day. #2 essential hypertension-patient remains on amlodipine and lisinopril #3 chronic obstructive pulmonary disease-patient uses an albuterol inhaler as needed wheezing, patient is on albuterol aerosols every 6 hours as needed here #4 uncontrolled nausea-resolved at this time #5 alcohol use disorder-patient's granddaughter states that the patient drinks as much is 1/5 of alcohol daily, patient so far has not shown any evidence of alcohol withdrawal. Total clinical time spent by myself addressing patient's medical issues, reviewing all of his data, and collaborating with patient's care team: 35 minutes Charges/Coding Visit Charges Inpatient E&M: 13580 Subs Hosp L2
[2024-04-26] MEDS: oxyCODONE CR 15 MG Tablet PO ×2 (09:05→22:02)
[2024-04-26] MEDS: Senna/Docusate Sodium 1 Tablet PO ×2 (09:05)
[2024-04-26] MEDS: Lisinopril 20 MG Tablet PO ×2 (09:05→22:02)
[2024-04-26] MEDS: Pantoprazole Sodium 40 MG Tablet PO ×2 (09:06→22:02)
[2024-04-26] MEDS: Enoxaparin 40 MG/0.4 ML Syringe SC (09:06)
[2024-04-26] MEDS: amLODIPine 5 MG Tablet PO (09:06)
--- NOTE | 2024-04-26 09:15 | CASEMGMT ---
MMO has denied skilled stay but has offered a peer to peer. SW updated. Janett Garza DC Planning Asst.
--- NOTE | 2024-04-26 10:59 | CASEMGMT ---
Addendum entered by Carmelina Mays 04/26/24 13:01: Social Work Return call from [facility] for Peer to Peer. Dr. Grijalva is to call [facility] [place] Tuesday at 1230 and to provide pt name and case #[id number]. Phone number [phone] option 1, option 1. Physician notified. QUE Leyva Original Note: Social Work Insurance has denied authorization for placement at [facility]. Peer to Peer has been offered. CHRISTIANE spoke with physician who is agreeable to complete peer to peer. Sw placed phone call to [facility] and VM left requesting to schedule a peer to peer. SW will await return call. QUE Swanson
[2024-04-26] MEDS: Morphine 4 MG/ML Syringe IV ×2 (12:42→16:03)
[2024-04-26 14:10] VITALS: BP 148/76; PULSE 89; RESP 18; TEMP 36.8; O2SAT 94
--- NOTE | 2024-04-26 14:25 | CASEMGMT ---
Social Work SW met with pt to discuss discharge plans. SW explained to pt that [facility] has accepted him, but insurance has denied SNF coverage. SW also explained that peer to peer will be completed. Pt is frustrated by this information as pt does not feel pt can return home. Pt's son does live with pt, but works and pt is home alone. Pt does not feel he can return home due to physical debility. SW broached topic of private pay at SNF if Peer to Peer is denied. Pt states he does not have the finances to pay for this. With pt permission, phone call to pt's granddgt Yenny and updated on the above. Yenny confirms pt does not have the finances to private pay at SNF if SNF stay is denied by insurance. Pt does have a walker and rollator and wheelchair at home and sleeps in a recliner. Pt does not have a BSC. Yenny says that if pt is denied by SNF, Pt will need to return home. CHRISTIANE did educate Yenny to home health option. CHRISTIANE will continue to follow for discharge planning. Peer to Peer tomorrow at 1230. QUE Leyva
[2024-04-26 21:55] VITALS: BP 144/69; PULSE 72; RESP 20; TEMP 36.6; O2SAT 93
[2024-04-26] MEDS: DOXEPIN HCL 50 MG CAPSULE PO (22:02)
[2024-04-27] MEDS: Metoclopramide 10 MG/2 ML Vial 5 MG IV ×3 (00:54→12:11)
[2024-04-27] MEDS: 0.9% Saline Lock 10 ML Syringe IV ×3 (00:54→12:12)
[2024-04-27] MEDS: Acetaminophen 325 MG Tablet 650 MG PO (00:56)
[2024-04-27 02:41] VITALS: BP 153/82; PULSE 86; RESP 20; TEMP 36.9; O2SAT 95
[2024-04-27] MEDS: oxyCODONE 5 MG Tablet 10 MG PO (03:12)
[2024-04-27 08:14] VITALS: BP 151/88; PULSE 70; RESP 18; TEMP 36.6; O2SAT 97
[2024-04-27 08:15] VITALS: O2SAT 97
[2024-04-27] MEDS: Lisinopril 20 MG Tablet PO (10:02)
[2024-04-27] MEDS: Enoxaparin 40 MG/0.4 ML Syringe SC (10:02)
[2024-04-27] MEDS: Pantoprazole Sodium 40 MG Tablet PO (10:03)
[2024-04-27] MEDS: oxyCODONE CR 15 MG Tablet PO (10:03)
[2024-04-27] MEDS: amLODIPine 5 MG Tablet PO (10:03)
[2024-04-27] MEDS: Methocarbamol 500 MG Tablet 1000 MG PO (13:22)
[2024-04-27 13:26] VITALS: BP 116/56; PULSE 60; RESP 18; TEMP 36.7; O2SAT 98
[2024-04-27 13:31] VITALS: PULSE 60; O2SAT 98
--- NOTE | 2024-04-27 14:24 | PCM.TXEXTCAR ---
Diet Diet Order/Speech Therapy: 04/22/24 19:22 Diet: Cardiac - Heart Healthy Food consistency:: Regular Liquid Consistency:: Regular/Thin Routine Orders/Code Status Code Status: DNRCC-A (No intubation) DC O2, CPAP, BIPAP needs Home O2 Discharge instructions: No Therapies Weight Bearing: Full weight bearing Physical Therapy: Eval and Treat Occupational Therapy: Eval and Treat Problem/Diagnosis (1) Strain of right psoas muscle: Status: Acute Code(s): S76.011A - Strain of muscle, fascia and tendon of right hip, initial encounter (2) Acute pain of right hip: Status: Acute Code(s): M25.551 - Pain in right hip Plan 1. Right psoas muscle strain with resultant inability to ambulate due to pain-PT and OT will continue to work with the patient, we are awaiting approval for placement in a assisted facility for further inpatient rehab services, I have elected to increase the patient's OxyContin to 15 mg twice a day. #2 essential hypertension-patient remains on amlodipine and lisinopril #3 chronic obstructive pulmonary disease-patient uses an albuterol inhaler as needed wheezing, patient is on albuterol aerosols every 6 hours as needed here #4 uncontrolled nausea-resolved at this time #5 alcohol use disorder-patient's granddaughter states that the patient drinks as much is 1/5 of alcohol daily, patient so far has not shown any evidence of alcohol withdrawal. Total clinical time spent by myself addressing patient's medical issues, reviewing all of his data, and collaborating with patient's care team: 35 minutes Allergies/Procedures Done in Hospital Allergies amoxicillin Allergy (Verified 04/22/24 13:23) doesnt rememeber happened as a child fluoxetine (From Prozac) Adverse Reaction (Verified 04/22/24 13:23) Other serotonin syndrome Type of Care/Length of Stay Estimated LOS: Convalescent Care Less Than 30 days Type of Care Needed: Skilled Rehab Potential: Good Prognosis: Good Additional Orders/Day of Discharge Day of Discharge: 04/27/24 Dietary and Speech Recommendations Dietitian Recommendations/Changes: Continue Cardiac diet as ordered Monitor wt trends - suspect adm wt is incorrect. Discharge Plan Admission Admit Date/Time: 04/22/24 18:44 Primary Reason for Your Visit: Strain of right psoas muscle Attending Provider: Alfred Grijalva Primary Care Provider: Alfred Bailey Consulting Providers: David Cespedes Joseph Discharge Orders/Prescriptions Prescriptions: New methocarbamol 500 mg Tablet 1,000 mg PO TID Qty: 0 0RF doxepin 50 mg Capsule 50 mg PO QHS Qty: 0 0RF acetaminophen 325 mg Tablet 650 mg PO Q4H PRN PRN (Reason: Fever, pain 1-10/10) Qty: 0 0RF lorazepam 0.5 mg Tablet 0.5 mg PO Q6H PRN PRN (Reason: Anxiety) Qty: 8 0RF calcium carbonate 200 mg calcium (500 mg) Tablet,Chewable 500 mg PO TIDCM PRN (Reason: DYSPEPSIA/INDIGESTION) Qty: 0 0RF oxycodone 5 mg Tablet 10 mg PO Q4H PRN PRN (Reason: Pain Score 1-10) 5 Days Qty: 10 0RF oxycodone [OxyContin] 15 mg Tablet,Oral Only,Ext.Rel.12 Hr 15 mg PO BID 2 Days Qty: 4 0RF sennosides-docusate sodium [Stimulant Laxative Plus] 8.6-50 mg Tablet 1 tab PO DAILY Qty: 1 0RF Continued amlodipine 5 mg tablet 5 mg PO DAILY omeprazole 40 mg capsule,delayed release(DR/EC) 40 mg PO DAILY lisinopril 20 MG tablet 20 mg PO BID pantoprazole 40 MG tablet 40 mg PO BID albuterol sulfate 2.5 mg /3 mL (0.083 %) solution for nebulization 2.5 mg inhalation Q6H PRN (Reason: shortness of breath or wheezing) ondansetron 4 mg tablet,disintegrating 4 mg PO Q8H PRN (Reason: Nausea) promethazine 25 mg tablet 25 mg PO TID PRN PRN (Reason: nausea) Discontinued lorazepam 0.5 mg tablet 0.5 mg PO BID PRN (Reason: anxiety) doxepin 10 mg capsule 10 mg PO QHS PRN (Reason: insomnia) Patient Comments: may take 1 or 2 capsules PRN insomnia No Action ibuprofen 600 mg tablet 600 mg PO Q6H PRN (Reason: pain) fluvoxamine 100 mg tablet 100 mg PO QHS Referrals / Follow Up: Lynn,Alfred, DO [Primary Care Provider] - Disposition Disposition (needs filled in before D/C Order can be placed): [facility] (1) Strain of right psoas muscle Qualifiers: Encounter type: initial encounter Qualified Code(s): S76.011A - Strain of muscle, fascia and tendon of right hip, initial encounter
--- NOTE | 2024-04-27 14:36 | PCM.DC.SUM ---
Providers Date of Admission: 04/22/24 Date of Discharge: 04/27/24 Primary Care Physician: Dr. Alfred Bailey, Consultations 04/24/24 07:15 Consult: Orthopedics Routine Consulting Provider: [place] Rush Reason for Consult: right hip pain EMERGENT Consult: No MD Notified: Yes Date Notified: 04/24/24 Time Notified: 07:15 Method of Notification: Verbal Reason For Visit: UNSTEADY WITH ETOH WITHDRAWAL Diagnosis Discharge Diagnosis (1) Strain of right psoas muscle: Status: Acute Code(s): S76.011A - Strain of muscle, fascia and tendon of right hip, initial encounter Qualifiers: Encounter type: initial encounter Qualified Code(s): S76.011A - Strain of muscle, fascia and tendon of right hip, initial encounter (2) Acute pain of right hip: Status: Acute Code(s): M25.551 - Pain in right hip Plan 1. Right psoas muscle strain with resultant inability to ambulate due to pain-PT and OT will continue to work with the patient, we are awaiting approval for placement in a fdc facility for further inpatient rehab services, I have elected to increase the patient's OxyContin to 15 mg twice a day. #2 essential hypertension-patient remains on amlodipine and lisinopril #3 chronic obstructive pulmonary disease-patient uses an albuterol inhaler as needed wheezing, patient is on albuterol aerosols every 6 hours as needed here #4 uncontrolled nausea-resolved at this time #5 alcohol use disorder-patient's granddaughter states that the patient drinks as much is 1/5 of alcohol daily, patient so far has not shown any evidence of alcohol withdrawal. Total clinical time spent by myself addressing patient's medical issues, reviewing all of his data, and collaborating with patient's care team: 35 minutes Medications at Discharge Home Medications lisinopril 20 mg tablet 20 mg PO BID blood pressure 03/16/18 pantoprazole 40 mg tablet,delayed release 40 mg PO BID reflux 09/07/19 ibuprofen 600 mg tablet 600 mg PO Q6H PRN pain 04/15/23 albuterol sulfate 2.5 mg/3 mL (0.083 %) solution for nebulization 2.5 mg inhalation Q6H PRN shortness of breath or wheezing 05/18/23 fluvoxamine 100 mg tablet 100 mg PO QHS 05/18/23 amlodipine 5 mg tablet 5 mg PO DAILY 05/24/23 omeprazole 40 mg capsule,delayed release 40 mg PO DAILY 12/30/23 ondansetron 4 mg disintegrating tablet 4 mg PO Q8H PRN Nausea 04/22/24 promethazine 25 mg tablet 25 mg PO TID PRN PRN nausea 04/23/24 acetaminophen 325 mg tablet 650 mg (2 x 325 mg) PO Q4H PRN PRN Fever, pain 1-10/10 #0 tabs 04/27/24 calcium carbonate 500 mg (2.5 x 200 mg calcium (500 mg)) PO TIDCM PRN DYSPEPSIA/INDIGESTION #0 tabs 04/27/24 doxepin 50 mg capsule 50 mg PO QHS #0 caps 04/27/24 lorazepam 0.5 mg tablet 0.5 mg PO Q6H PRN PRN Anxiety #8 tabs 04/27/24 methocarbamol 500 mg tablet 1,000 mg (2 x 500 mg) PO TID #0 tabs 04/27/24 oxycodone 15 mg tablet,crush resistant,extended release 12 hr (OxyContin) 15 mg PO BID 2 days #4 tabs 04/27/24 oxycodone 5 mg tablet 10 mg (2 x 5 mg) PO Q4H PRN PRN Pain Score 1-10 5 days #10 tabs 04/27/24 sennosides 8.6 mg-docusate sodium 50 mg tablet (Stimulant Laxative Plus) 1 tab PO DAILY #1 TAB 04/27/24 Hospital Course Operations None Procedures None Summary of Care Provided Minutes Spent on Discharge: 31 Hospital Course: This 73-year-old white male was seen in the emergency room at [facility] with complaints of right hip pain which happened after he sustained a fall at home. Workup in the emergency room included x-rays that did not show evidence of a fracture. Labs showed an elevated white blood cell count of 14.7, chemistry profile was unremarkable. Patient could not ambulate and was placed in observation status on MedSurg 3, he was seen by PT and OT and also seen by orthopedic surgery. Pelvic MRI did not show any evidence of pelvic or hip fracture, orthopedic surgery felt that the patient had a psoas muscle strain and the only treatment for this was physical therapy and analgesics. It was recommended that the patient go to a fdc facility for short-term rehab services and the patient agreed. On 04/27/2024, patient was seen and examined: On examination he appeared in good health and spirits. Vital signs as documented. Skin warm and dry and without overt rashes. Neck without JVD, neck was supple, trachea midline, thyroid was normal. Lungs clear bilaterally, normal air movement was noted. Heart exam notable for regular rhythm, normal sounds and absence of murmurs, rubs or gallops. Abdomen unremarkable and without evidence of organomegaly, masses, or abdominal aortic enlargement. Bowel sounds are present, abdomen is not distended. Extremities nonedematous, no cyanosis was noted, no clubbing was noted. Neuro: Cranial nerves II through XII are grossly intact, no focal motor deficits were noted, sensation to light touch and pinprick intact, motor exam 5/5 throughout. Psych: Patient is alert and oriented x3, he does not appear anxious or depressed, he does not appear agitated. Patient appears stable for transfer to a fdc facility ([facility]) on 04/27/2024 for inpatient rehab services. Weight / BMI Weight Weight: 89.5 kg Body Mass Index (BMI) 29.9 ABG / Lab / Microbiology Data 04/23/24 06:04 04/23/24 06:04 D/C Instructions DC O2, CPAP, BIPAP Needs Home O2 Discharge instructions: No Meaningful Use Info Meaningful Use Meaningful Use Diagnoses (Choose all that apply): None applicable Ischemic Stroke Statin Dosing Therapy Reference: STATIN DOSE THERAPY REFERENCE: * Patients > 75 years receive moderate or high dose statin therapy. * Patients 75 years or YOUNGER should receive HIGH intensity statin dose unless contraindicated. You will be required to document reason for non-treatment if statin daily dose does not meet guidelines. HIGH DOSE STATIN THERAPY DAILY Atorvastatin > than or = to 40 mg Rosuvastatin > than or = to 20 mg Amlodipine + Atorvastatin > than or = to 2.5/40 mg Ezetimibe + Simvastatin 10/80 mg Simvastatin 80mg Discharge Plan Admission Admit Date/Time: 04/22/24 18:44 Primary Reason for Your Visit: Strain of right psoas muscle Attending Provider: Alfred Grijalva Primary Care Provider: Alfred Bailey Consulting Providers: David Cespedes Joseph Discharge Orders/Prescriptions Prescriptions: New methocarbamol 500 mg Tablet 1,000 mg PO TID Qty: 0 0RF doxepin 50 mg Capsule 50 mg PO QHS Qty: 0 0RF acetaminophen 325 mg Tablet 650 mg PO Q4H PRN PRN (Reason: Fever, pain 1-1010) Qty: 0 0RF lorazepam 0.5 mg Tablet 0.5 mg PO Q6H PRN PRN (Reason: Anxiety) Qty: 8 0RF calcium carbonate 200 mg calcium (500 mg) Tablet,Chewable 500 mg PO TIDCM PRN (Reason: DYSPEPSIA/INDIGESTION) Qty: 0 0RF oxycodone 5 mg Tablet 10 mg PO Q4H PRN PRN (Reason: Pain Score 1-10) 5 Days Qty: 10 0RF oxycodone [OxyContin] 15 mg Tablet,Oral Only,Ext.Rel.12 Hr 15 mg PO BID 2 Days Qty: 4 0RF sennosides-docusate sodium [Stimulant Laxative Plus] 8.6-50 mg Tablet 1 tab PO DAILY Qty: 1 0RF Continued amlodipine 5 mg tablet 5 mg PO DAILY omeprazole 40 mg capsule,delayed release(DR/EC) 40 mg PO DAILY lisinopril 20 MG tablet 20 mg PO BID pantoprazole 40 MG tablet 40 mg PO BID albuterol sulfate 2.5 mg /3 mL (0.083 %) solution for nebulization 2.5 mg inhalation Q6H PRN (Reason: shortness of breath or wheezing) ondansetron 4 mg tablet,disintegrating 4 mg PO Q8H PRN (Reason: Nausea) promethazine 25 mg tablet 25 mg PO TID PRN PRN (Reason: nausea) Discontinued lorazepam 0.5 mg tablet 0.5 mg PO BID PRN (Reason: anxiety) doxepin 10 mg capsule 10 mg PO QHS PRN (Reason: insomnia) Patient Comments: may take 1 or 2 capsules PRN insomnia No Action ibuprofen 600 mg tablet 600 mg PO Q6H PRN (Reason: pain) fluvoxamine 100 mg tablet 100 mg PO QHS Referrals / Follow Up: Alfred Bailey DO [Primary Care Provider] - Disposition Disposition (needs filled in before D/C Order can be placed): Group Home Facility Charges/Coding Visit Charges Inpatient E&M: 99809 Disch Hosp >30min
--- NOTE | 2024-04-27 14:43 | CASEMGMT ---
[facility] has obtained auth to admit. Janett Garza DC Planning Asst.
--- NOTE | 2024-04-27 14:50 | CASEMGMT ---
Discharge Planning Discharge orders, signed med list, and transport time sent to [facility]. Physicians will transport pt by wheelchair at 4:30p. Nursing, SW, pt, and his granddaughter (Yenny) updated. Janett Garza DC Planning Asst.
--- NOTE | 2024-04-27 15:02 | CASEMGMT ---
Social Work Physician completed Peer to Peer and denial was overturn. [facility] confirms pt can discharge today. Physician notified and discharge ordered. PASRR completed in HENS. DC stonecutter assistant notified and to complete dc. Pt notified and Pt's granddgt notified of win of appeal and discharge. Disposition: [facility], skilled level of care QUE Leyva
--- NOTE | 2024-04-27 15:33 | PHA.DC_ITS ---
Pharmacy [place] Med Reconciliation Pharmacy Service has performed discharge medication reconciliation for this patient. The patient's discharge medication list was reviewed for discrepancies and discrepancies were resolved. Medications at Discharge Home Medications lisinopril 20 mg tablet 20 mg PO BID blood pressure 03/16/18 pantoprazole 40 mg tablet,delayed release 40 mg PO BID reflux 09/07/19 ibuprofen 600 mg tablet 600 mg PO Q6H PRN pain 04/15/23 albuterol sulfate 2.5 mg/3 mL (0.083 %) solution for nebulization 2.5 mg inhalation Q6H PRN shortness of breath or wheezing 05/18/23 fluvoxamine 100 mg tablet 100 mg PO QHS 05/18/23 amlodipine 5 mg tablet 5 mg PO DAILY 05/24/23 omeprazole 40 mg capsule,delayed release 40 mg PO DAILY 12/30/23 ondansetron 4 mg disintegrating tablet 4 mg PO Q8H PRN Nausea 04/22/24 promethazine 25 mg tablet 25 mg PO TID PRN PRN nausea 04/23/24 acetaminophen 325 mg tablet 650 mg (2 x 325 mg) PO Q4H PRN PRN Fever, pain 1- 10 #0 tabs 04/27/24 calcium carbonate 500 mg (2.5 x 200 mg calcium (500 mg)) PO TIDCM PRN DYSPEPSIA/INDIGESTION #0 tabs 04/27/24 doxepin 50 mg capsule 50 mg PO QHS #0 caps 04/27/24 lorazepam 0.5 mg tablet 0.5 mg PO Q6H PRN PRN Anxiety #8 tabs 04/27/24 methocarbamol 500 mg tablet 1,000 mg (2 x 500 mg) PO TID #0 tabs 04/27/24 oxycodone 15 mg tablet,crush resistant,extended release 12 hr (OxyContin) 15 mg PO BID 2 days #4 tabs 04/27/24 oxycodone 5 mg tablet 10 mg (2 x 5 mg) PO Q4H PRN PRN Pain Score 1-10 5 days #10 tabs 04/27/24 sennosides 8.6 mg-docusate sodium 50 mg tablet (Stimulant Laxative Plus) 1 tab PO DAILY #1 TAB 04/27/24
== END 2024-04-27 17:25 | disposition skilled nursing facility (03) ==
LOC: ED 18:30 → MS3 18:40
PROVIDERS: Nurse Practitioner; Admitting Provider Family Medicine; Emergency Provider Emergency Medicine; PCP Family Medicine; Visit Provider Internal Medicine
DX: S76.011A Strain of muscle, fascia and tendon of right hip, initial encounter (principal); J44.9 Chronic obstructive pulmonary disease, unspecified; F10.139 Alcohol abuse with withdrawal, unspecified; Z63.4 Disappearance and death of family member; K21.9 Gastro-esophageal reflux disease without esophagitis; G89.29 Other chronic pain; F41.9 Anxiety disorder, unspecified; Z87.891 Personal history of nicotine dependence; E66.9 Obesity, unspecified; I10 Essential (primary) hypertension; Z79.899 Other long term (current) drug therapy; W19.XXXA Unspecified fall, initial encounter; Y92.009 Unspecified place in unspecified non-institutional (private) residence as the place of occurrence of the external cause; Z68.39 Body mass index [BMI] 39.0-39.9, adult; R11.0 Nausea
CPT/HCPCS: 36415; 70450; 71045; 72100; 72125; 72195; 73502; 73700; 80048; 80076; 82077; 83690; 84484; 85025; 85610; 93005; 96372; 96374; 96375; 96376; 97162; 97166; 97530; 97802; 99221; 99285; A4216; G0378; J2405

== ENCOUNTER 2024-05-26 12:22 | Emergency (ER) | payer MEDICARE, SELFPAY ==
[2024-05-26 12:23] VITALS: BP 149/129; PULSE 97; RESP 20; TEMP 36.8; O2SAT 94; BMI 36.8
--- NOTE | 2024-05-26 12:37 | EX.ED.DYSGE1 ---
HPI <CHIQUI Hui - Last Filed: 05/26/24 17:41> History of Present Illness Chief Complaint: Nausea/Vomiting Narrative Narrative: 74-year-old male with PMH of HTN, COPD, PE, GI bleed, hypothyroidism presents with nausea and dry heaving that started around 9 AM. He is unable to vomit. He denies any chest pain or abdominal pain. He has no diarrhea, melena, hematochezia or urinary symptoms. He states he gets similar spells of nausea and dry heaving that have occurred intermittently over the last 10 years. Last occurred about 3 months ago. He states it has resolved in the past with IV Ativan and and Benadryl. He denies smoking tobacco or cannabis. He states he quit drinking alcohol 8 weeks ago. He has seen Dr. Rutledge for the symptoms and had unremarkable endoscopy and colonoscopy. PFSH <CHIQUI Hui - Last Filed: 05/26/24 17:41> [facility] Medical History Basal cell carcinoma of anterior chest Wears glasses Wears dentures Depression Anxiety Alcohol use Arthritis History of renal disease Back pain Injury of head and neck History of ulceration History of IBS History of diverticulitis Gastric reflux CPAP (continuous positive airway pressure) dependence Former smoker COPD (chronic obstructive pulmonary disease) Shortness of breath on exertion History of pain when walking History of edema History of stress test Encounter for screening for COVID-19 Chest wall contusion (~12/18/20) HTN (hypertension) Home Medications ?Medication ?Instructions ?Recorded ?Last Taken ?Type lisinopril 20 mg tablet 20 mg PO BID blood pressure 03/16/18 04/21/24 History pantoprazole 40 mg tablet,delayed 40 mg PO BID reflux 09/07/19 04/21/24 History release ibuprofen 600 mg tablet 600 mg PO Q6H PRN pain 04/15/23 Unknown History albuterol sulfate 2.5 mg/3 mL 2.5 mg inhalation Q6H PRN 05/18/23 Unknown History (0.083 %) solution for nebulization shortness of breath or wheezing fluvoxamine 100 mg tablet 100 mg PO QHS 05/18/23 04/21/24 History amlodipine 5 mg tablet 5 mg PO DAILY 05/24/23 04/21/24 History omeprazole 40 mg capsule,delayed 40 mg PO DAILY 12/30/23 04/21/24 History release ondansetron 4 mg disintegrating 4 mg PO Q8H PRN Nausea 04/22/24 Unknown History tablet promethazine 25 mg tablet 25 mg PO TID PRN PRN nausea 04/23/24 Unknown History acetaminophen 325 mg tablet 650 mg (2 x 325 mg) PO Q4H PRN PRN 04/27/24 Unknown Rx Fever, pain 1-1010 #0 tabs calcium carbonate 500 mg (2.5 x 200 mg calcium (500 04/27/24 Unknown Rx mg)) PO TIDCM PRN DYSPEPSIA/INDIGESTION #0 tabs doxepin 50 mg capsule 50 mg PO QHS #0 caps 04/27/24 Unknown Rx lorazepam 0.5 mg tablet 0.5 mg PO Q6H PRN PRN Anxiety #8 04/27/24 Unknown Rx tabs methocarbamol 500 mg tablet 1,000 mg (2 x 500 mg) PO TID #0 04/27/24 Unknown Rx tabs oxycodone 15 mg tablet,crush 15 mg PO BID 2 days #4 tabs 04/27/24 Unknown Rx resistant,extended release 12 hr (OxyContin) oxycodone 5 mg tablet 10 mg (2 x 5 mg) PO Q4H PRN PRN 04/27/24 Unknown Rx Pain Score 1-10 5 days #10 tabs sennosides 8.6 mg-docusate sodium 1 tab PO DAILY #1 TAB 04/27/24 Unknown Rx 50 mg tablet (Stimulant Laxative Plus) Allergy/AdvReac Type Severity Reaction Status Date / Time amoxicillin Allergy doesnt Verified 04/22/24 13:23 rememeber fluoxetine (From Prozac) AdvReac Other Verified 04/22/24 13:23 Family History Mother Myocardial infarction Hypertension Father Cancer Hypertension Surgical History Hx of colonoscopy Hx of blepharoplasty Hx of esophagogastroduodenoscopy History of eye surgery Social History household members: none Smoking Status: Former smoker how long ago did patient quit smoking: quit 20 yr ago alcohol intake: current Alcohol type: hard liquor substance use type: does not use additional social history: personal hx of PEs ROS <CHIQUI Hui - Last Filed: 05/26/24 17:41> ROS ED ROS Narrative Constitutional: Negative for fever, chills, malaise. CVS: Negative for palpitations, chest pain, syncope. Respiratory: Negative for shortness of breath. GI: Positive for nausea. No abdominal pain, diarrhea, constipation, melena, hematochezia. : Negative for dysuria, hematuria or frequency. EXAM <CHIQUI Hui - Last Filed: 05/26/24 17:41> Physical Exam Narrative Exam Narrative: CONST: Patient sitting in no acute distress. EYES: Normal inspection. NECK: Normal inspection. RESP: No respiratory distress, CTAB. CVS: Regular rate and rhythm, no murmur, no gallop. SKIN: Color normal, no rash, warm, dry, intact. EXTREMITIES: Normal appearance, no pedal edema. NEURO: Alert and answering questions appropriately. PSYCH: Normal affect. Const Vital Signs: 05/26/24 12:23 05/26/24 14:23 05/26/24 16:00 Temperature 98.2 F Temperature Source Oral Pulse Rate 97 89 91 Respiratory Rate 20 H 14 18 Blood Pressure 149/129 H 117/93 H 165/84 H Blood Pressure Mean 135 101 111 Pulse Ox 94 95 94 Oxygen Delivery Method Room Air Room Air Room Air 05/26/24 18:00 Temperature 97.8 F Temperature Source Pulse Rate 89 Respiratory Rate 18 Blood Pressure 148/78 H Blood Pressure Mean 101 Pulse Ox 95 Oxygen Delivery Method <Dr. Torey Multani DO - Last Filed: 05/26/24 22:34> Physical Exam Const Vital Signs: 05/26/24 12:23 05/26/24 14:23 05/26/24 16:00 Temperature 98.2 F Temperature Source Oral Pulse Rate 97 89 91 Respiratory Rate 20 H 14 18 Blood Pressure 149/129 H 117/93 H 165/84 H Blood Pressure Mean 135 101 111 Pulse Ox 94 95 94 Oxygen Delivery Method Room Air Room Air Room Air 05/26/24 18:00 Temperature 97.8 F Temperature Source Pulse Rate 89 Respiratory Rate 18 Blood Pressure 148/78 H Blood Pressure Mean 101 Pulse Ox 95 Oxygen Delivery Method [facility] <CHIQUI Hui - Last Filed: 05/26/24 17:41> [facility] Narrative Medical decision making narrative: 74 old male presents with nausea and dry heaving with similar episodes in the past. He appears well and nontoxic. Initially slightly hypertensive at 149/129 with otherwise normal vital signs but not sure if this was an accurate reading. Other than nausea he has no other symptoms and has a soft, nontender abdomen. EKG is nonischemic. I ordered IV fluids, Pepcid, Ativan and Benadryl as this has worked in the past. WBC is 12.4. Hemoglobin 15.2. Electrolytes within normal limits. BUN 22, creatinine 0.86. LFTs are unremarkable. Lipase is slightly elevated at 132 but does not meet threshold for pancreatitis. Urine tox is positive for benzodiazepines from his administration of IV Ativan here, otherwise negative. Urinalysis negative for infection. He complained of nausea again and was ordered IV Zofran. Patient was monitored and then in the department for 5+ hours. His dry heaving has resolved and he never had vomiting. He states he is still somewhat nauseated but is keeping down water and is requesting discharge. I recommended follow-up with his primary care and GI team. He was discharged in stable condition. Differential includes but not limited to electrolyte derangement, TOMI, less likely intra-abdominal process with no pain or tenderness Tests considered: I considered a CT of the abdomen/pelvis but he has no abdominal pain and serial abdominal exams are benign History & Record Review Additional record(s) reviewed:: Prior ED visit and Prior labs Lab Data Attestation: I reviewed the patient's lab results. Labs: Laboratory Results - last 24 hr 05/26/24 05/26/24 12:30 14:00 WBC 12.4 H RBC 4.55 L Hgb 15.2 Hct 42.0 MCV 92.3 MCH 33.4 H MCHC 36.2 H RDW Std Deviation 44.5 H RDW Coeff of [place] 13.2 Plt Count 329 MPV 9.6 Immature Gran % (Auto) 0.300 Neut % (Auto) 77.1 H Lymph % (Auto) 13.4 L Dolores % (Auto) 8.2 Eos % (Auto) 0.5 Baso % (Auto) 0.5 Absolute Neuts (auto) 9.5 H Absolute Lymphs (auto) 1.66 Nucleated RBC % 0 Sodium 135 Potassium 4.5 Chloride 98 Carbon Dioxide 23.4 Anion Gap 13 BUN 22 H Creatinine 0.86 Estim Creat Clear Calc 87.90 Est GFR (MDRD) Non-Af 90 BUN/Creatinine Ratio 25.7 H Glucose 111 H Calcium 9.7 Total Bilirubin 0.51 AST 27 ALT 22 Alkaline Phosphatase 94 Total Protein 7.5 Albumin 3.8 Globulin 3.7 Albumin/Globulin Ratio 1.0 Lipase 132 H Urine Color Yellow Urine Clarity Clear Urine pH 6.5 Ur Specific [place] 1.015 Urine Protein 15 H Urine Glucose (UA) Normal Urine Ketones Negative Urine Occult Blood Negative Urine Nitrite Negative Urine Bilirubin Negative Urine Urobilinogen Normal Ur Leukocyte Esterase 100 H Urine RBC 0 SEEN Urine WBC 0 SEEN Ur Squamous Epith Cells 0 SEEN Urine Bacteria 0 SEEN Urine Mucus 0 SEEN Urine Opiates Screen NEGATIVE U Buprenorphine Qual NEGATIVE Ur Oxycodone Screen NEGATIVE Urine Methadone Screen NEGATIVE Urine Fentanyl Screen NEGATIVE Ur Barbiturates Screen NEGATIVE Ur Phencyclidine Scrn NEGATIVE Ur Amphetamines Screen NEGATIVE U Benzodiazepines Scrn PRESUMPTIVE POSITIVE Urine Cocaine Screen NEGATIVE U Cannabinoids Screen NEGATIVE EKG Initial EKG: Attestation: I personally reviewed and interpreted this EKG as follows: Interpretation: Sinus Rhythm and No Acute Injury Pattern Comments: Normal sinus rhythm at 96 bpm No acute ischemic changes <Dr. Torey Multani, DO - Last Filed: 05/26/24 22:34> [facility] Narrative Medical decision making narrative: 74 old male presents with nausea and dry heaving with similar episodes in the past. He appears well and nontoxic. Initially slightly hypertensive at 149/129 with otherwise normal vital signs but not sure if this was an accurate reading. Other than nausea he has no other symptoms and has a soft, nontender abdomen. EKG is nonischemic. I ordered IV fluids, Pepcid, Ativan and Benadryl as this has worked in the past. WBC is 12.4. Hemoglobin 15.2. Electrolytes within normal limits. BUN 22, creatinine 0.86. LFTs are unremarkable. Lipase is slightly elevated at 132 but does not meet threshold for pancreatitis. Urine tox is positive for benzodiazepines from his administration of IV Ativan here, otherwise negative. Urinalysis negative for infection. He complained of nausea again and was ordered IV Zofran. Patient was monitored and then in the department for 5+ hours. His dry heaving has resolved and he never had vomiting. He states he is still somewhat nauseated but is keeping down water and is requesting discharge. I recommended follow-up with his primary care and GI team. He was discharged in stable condition. Differential includes but not limited to electrolyte derangement, TOMI, less likely intra-abdominal process with no pain or tenderness Tests considered: I considered a CT of the abdomen/pelvis but he has no abdominal pain and serial abdominal exams are benign Attending note: I have personally performed a face to face assessment of the patient and have reviewed the DULCE note. I personally made/approved the management plan and take responsibility for the patient management. I performed a substantive portion of the visit including all aspects of the following. My rose findings include: Recurrent dry heaving this is morning. No abdominal pain. Previously treated with Ativan and Benadryl states symptoms improved after couple hours. Stop drinking alcohol approximately 4 weeks ago. He had previous marijuana use 40 years ago. Evaluated nontoxic no acute distress nonsurgical abdomen. Labs drawn Ativan Benadryl given. White count 12.4 lipase 132 less than 2 times limit. No vomiting. No clinical pancreatitis. Toxicology had benzos however he was given Ativan. Negative for THC. Urine negative for infection. Treated initially with Zofran monitor at symptom resolves tolerating p.o. intake. He will follow-up with his GI doctor. Lab Data Labs: Laboratory Results - last 24 hr 05/26/24 05/26/24 12:30 14:00 WBC 12.4 H RBC 4.55 L Hgb 15.2 Hct 42.0 MCV 92.3 MCH 33.4 H MCHC 36.2 H RDW Std Deviation 44.5 H RDW Coeff of [place] 13.2 Plt Count 329 MPV 9.6 Immature Gran % (Auto) 0.300 Neut % (Auto) 77.1 H Lymph % (Auto) 13.4 L Dol[place] % (Auto) 8.2 Eos % (Auto) 0.5 Baso % (Auto) 0.5 Absolute Neuts (auto) 9.5 H Absolute Lymphs (auto) 1.66 Nucleated RBC % 0 Sodium 135 Potassium 4.5 Chloride 98 Carbon Dioxide 23.4 Anion Gap 13 BUN 22 H Creatinine 0.86 Estim Creat Clear Calc 87.90 Est GFR (MDRD) Non-Af 90 BUN/Creatinine Ratio 25.7 H Glucose 111 H Calcium 9.7 Total Bilirubin 0.51 AST 27 ALT 22 Alkaline Phosphatase 94 Total Protein 7.5 Albumin 3.8 Globulin 3.7 Albumin/Globulin Ratio 1.0 Lipase 132 H Urine Color Yellow Urine Clarity Clear Urine pH 6.5 Ur Specific [place] 1.015 Urine Protein 15 H Urine Glucose (UA) Normal Urine Ketones Negative Urine Occult Blood Negative Urine Nitrite Negative Urine Bilirubin Negative Urine Urobilinogen Normal Ur Leukocyte Esterase 100 H Urine RBC 0 SEEN Urine WBC 0 SEEN Ur Squamous Epith Cells 0 SEEN Urine Bacteria 0 SEEN Urine Mucus 0 SEEN Urine Opiates Screen NEGATIVE U Buprenorphine Qual NEGATIVE Ur Oxycodone Screen NEGATIVE Urine Methadone Screen NEGATIVE Urine Fentanyl Screen NEGATIVE Ur Barbiturates Screen NEGATIVE Ur Phencyclidine Scrn NEGATIVE Ur Amphetamines Screen NEGATIVE U Benzodiazepines Scrn PRESUMPTIVE POSITIVE Urine Cocaine Screen NEGATIVE U Cannabinoids Screen NEGATIVE Discharge Plan Triage Chief Complaint: Nausea/Vomiting Other Complaint: Burn ED Midlevel Provider: Emi Martinez ED Provider: Torey Multani Dx/Rx/DC Orders Clinical Impression: Nausea and vomiting Instructions: ED Vomiting (Adult) Prescriptions: No Action amlodipine 5 mg tablet 5 mg PO DAILY omeprazole 40 mg capsule,delayed release(DR/EC) 40 mg PO DAILY lisinopril 20 MG tablet 20 mg PO BID pantoprazole 40 MG tablet 40 mg PO BID ibuprofen 600 mg tablet 600 mg PO Q6H PRN (Reason: pain) albuterol sulfate 2.5 mg /3 mL (0.083 %) solution for nebulization 2.5 mg inhalation Q6H PRN (Reason: shortness of breath or wheezing) fluvoxamine 100 mg tablet 100 mg PO QHS ondansetron 4 mg tablet,disintegrating 4 mg PO Q8H PRN (Reason: Nausea) promethazine 25 mg tablet 25 mg PO TID PRN PRN (Reason: nausea) methocarbamol 500 mg Tablet 1,000 mg PO TID Qty: 0 0RF doxepin 50 mg Capsule 50 mg PO QHS Qty: 0 0RF acetaminophen 325 mg Tablet 650 mg PO Q4H PRN PRN (Reason: Fever, pain 1-11/16) Qty: 0 0RF lorazepam 0.5 mg Tablet 0.5 mg PO Q6H PRN PRN (Reason: Anxiety) Qty: 8 0RF calcium carbonate 200 mg calcium (500 mg) Tablet,Chewable 500 mg PO TIDCM PRN (Reason: DYSPEPSIA/INDIGESTION) Qty: 0 0RF oxycodone 5 mg Tablet 10 mg PO Q4H PRN PRN (Reason: Pain Score 1-10) 5 Days Qty: 10 0RF oxycodone [OxyContin] 15 mg Tablet,Oral Only,Ext.Rel.12 Hr 15 mg PO BID 2 Days Qty: 4 0RF sennosides-docusate sodium [Stimulant Laxative Plus] 8.6-50 mg Tablet 1 tab PO DAILY Qty: 1 0RF Primary Care Provider: Alfred Bailey Referrals: Alfred Bailey, [Primary Care Provider] - Activity Restrictions/Additional Instructions: I am not sure what is causing your repeated episodes of nausea and dry heaving. I recommend you follow-up with your primary care doctor. Return to the ER if symptoms worsen. Print Language: Surinamese Disposition Disposition: Home, Self Care Discharge Date/Time: 05/26/24 18:34
--- NOTE | 2024-05-26 12:39 | EKG12_ITS ---
Test Reason : NAUSEA Blood Pressure : */* mmHG Vent. Rate : 96 BPM Atrial Rate : 96 BPM P-R Int : 148 ms QRS Dur : 84 ms QT Int : 354 ms P-R-T Axes : 38 36 80 degrees QTcB Int : 447 ms Normal sinus rhythm Cannot rule out Inferior infarct , age undetermined Abnormal ECG Confirmed by JACOB MISTRY, JUAREZ ([id number]), fan mail editor MJ MORALES ([id number]) on 05/28/2024 8:36:30 AM Referred By: Confirmed By: JUAREZ JAMES MD
[2024-05-26] MEDS: Lorazepam 2 MG/ML WCH Syringe 1 MG IV (12:51)
[2024-05-26] MEDS: DiphenhydrAMINE 50 MG/ML Syringe 25 MG IV (12:51)
[2024-05-26] MEDS: 0.9% Normal Saline (1000mL) 1,000 ML 999 ML IV (12:51)
[2024-05-26 12:52] LABS: Absolute Lymphocyte Count 1.66 X10^3/uL (0.83-4.51); Absolute Neutrophil Count 9.5 X10^3/uL (2.0-7.7); Basophil# 0.06 X10^3/uL; Basophil% 0.5 % (0-1); Eosinophil# 0.06 X10^3/uL; Eosinophils% 0.5 % (0-5); Hemoglobin 15.2 g/dL (13.0-16.5); Lymphocyte # 1.66 X10^3/ul (0.83-4.51); Lymphocyte % 13.4 % (19-41); Mean Corp Hgb Conc 36.2 g/dL (32-36); Mean Corpuscular Hgb 33.4 pg (27.0-32.0); Mean Corpuscular Volume 92.3 fL (80-94); Mean Platelet Vol. 9.6 fl (6.2-12.0); Monocyte# 1.01 X10^3/uL; Monocyte% 8.2 % (0-10); NRBC Flagged by Analyzer 0 % (0-5); Neutrophil # 9.52 X10^3/uL (2.7-7.7); Neutrophil % 77.1 % (47-70); Platelet Count 329 K/mm3 (150-450); RBC Distribution Width CV 13.2 % (11.6-14.6); RBC Distribution Width SD 44.5 fl (35.1-43.9); Red Blood Count 4.55 M/mm3 (4.6-6.2); White Blood Count 12.4 K/mm3 (4.4-11.0)
[2024-05-26] MEDS: Famotidine 200 MG/20 ML MDV 20 MG in 0.9% Normal Saline (Pres. free 8 ML 300 MG IV (13:07)
[2024-05-26 13:28] LABS: Lipase 132 U/L (13-75)
[2024-05-26 13:48] LABS: AST(SGOT) 27 U/L (<=37); Alanine Aminotransfer ALT/SGPT 22 U/L (<=46); Albumin, Serum 3.8 g/dL (3.4-4.8); Alkaline Phosphatase 94 U/L (40-129); Anion Gap 13 (5-15); BUN 22 mg/dL (4-19); BUN/Creat Ratio 25.7 RATIO (10-20); Calcium,Total 9.7 mg/dL (7.6-11.0); Carbon Dioxide 23.4 mmol/L (21.0-32.0); Chloride 98 mmol/L (98-108); Creatinine, Serum 0.86 mg/dL (0.70-1.20); EST Glomerular Filtration Rate 90 (>60); Globulin 3.7 g/dL (2.2-4.2); Glucose 111 mg/dL (70-99); Potassium 4.5 mmol/L (3.3-5.1); Protein, Total 7.5 g/dL (5.9-8.4); Sodium Level 135 mmol/L (133-145); Total Bilirubin 0.51 mg/dL (0.00-1.30)
[2024-05-26] MEDS: Ondansetron 4 MG/2 ML Vial IV (14:04)
[2024-05-26 14:17] LABS: Bacteria 0 SEEN /hpf (None Seen); Color, Urine Yellow (Yellow); Glucose, Dipstick Normal (Normal); Ketone-Dipstick Negative (Negative); Leukocyte Esterase-Dipstick 100 /ul (Negative); Mucous, Urine 0 SEEN /hpf (<or=2+); Nitrite-Dipstick Negative (Negative); Occult Blood-Urine Negative /ul (Negative); Protein-Dipstick 15 mg/dl (Negative); Red Blood Cells-Urine 0 SEEN /hpf (0-5); Specific Gravity, Urine 1.015 (1.002-1.030); Squamous Epithelial Cells - UA 0 SEEN /hpf (0-5); Urine Bilirubin Dipstick Negative (Negative); Urine Clarity Clear (Clear); Urine Urobilinogen Normal (Normal); Urine pH 6.5 (5.0 - 8.0); White Blood Cells 0 SEEN /hpf (0-5)
[2024-05-26 14:23] VITALS: BP 117/93; PULSE 89; RESP 14; O2SAT 95
[2024-05-26 15:15] LABS: Amphetamine Urine NEGATIVE (<1000 ng/mL); Barbiturate Urine NEGATIVE (< 200 ng/mL); Benzodiazepine Urine PRESUMPTIVE POSITIVE (< 200 ng/mL); Buprenorphine Urine NEGATIVE (< 200 ng/mL); Cocaine Urine NEGATIVE (< 300 ng/mL); Fentanyl, Urine NEGATIVE; Methadone Urine NEGATIVE (< 300 ng/mL); Opiates Urine NEGATIVE (< 300 ng/mL); Oxycodone, Urine NEGATIVE (< 100 ng/mL); PCP Urine NEGATIVE (< 25 ng/mL); THC Urine NEGATIVE (< 50 ng/mL)
--- NOTE | 2024-05-26 15:25 | CM.ED ---
automotive worker verified advanced care directives in patient's electronic medical record. Jessica Augustin, CLIENT EXPERIENCE CONSULTANT, CUSTOM SHOE DESIGNER AND MAKER
[2024-05-26 16:00] VITALS: BP 165/84; PULSE 91; RESP 18; O2SAT 94
[2024-05-26 18:00] VITALS: BP 148/78; PULSE 89; RESP 18; TEMP 36.6; O2SAT 95
== END 2024-05-26 18:34 | disposition home or self-care (01) ==
PROVIDERS: Physician Assistant; Emergency Provider Emergency Medicine; PCP Family Medicine; Visit Provider Emergency Medicine
DX: R11.2 Nausea with vomiting, unspecified (principal); J44.9 Chronic obstructive pulmonary disease, unspecified; I10 Essential (primary) hypertension; Z87.891 Personal history of nicotine dependence; Z85.828 Personal history of other malignant neoplasm of skin; Z99.89 Dependence on other enabling machines and devices; Z79.899 Other long term (current) drug therapy; K21.9 Gastro-esophageal reflux disease without esophagitis; F41.9 Anxiety disorder, unspecified
CPT/HCPCS: 80053; 80307; 81001; 83690; 85025; 93005; 96365; 96375; 99285; A4216; J2405

== ENCOUNTER 2024-05-28 10:19 | Emergency (ER) | payer MEDICARE, SELFPAY ==
[2024-05-28 10:20] VITALS: BP 170/96; PULSE 90; RESP 22; TEMP 36.3; O2SAT 94; BMI 36.6
--- NOTE | 2024-05-28 10:47 | ED.VIS.GI ---
HPI HPI - GI History of Present Illness Chief Complaint: Nausea/Vomiting Informant: patient Nausea/Vomiting/Emesis GI Symptom: Positive for Nausea and Vomiting Onset: Today Severity: Moderate Diarrhea/Melena/Hematochezia GI Symptom: Negative for Diarrhea, Melena or Hematochezia Associated Symptoms Associated Symptoms: Negative for Dysuria, Frequency, Hematuria or Urgency Narrative Narrative: 74-year-old male history of COPD hypertension partial nephrectomy. States that he has episodes where he gets nausea and vomiting. Did not really know why it specifically causes it. He has seen GI, Dr. Parnell, for this in the past without specific diagnosis. He presented to the emergency room on Tuesday for similar complaint. Was treated said he felt a lot better was discharged home. He had a negative workup at that time. He states that returned. He denies any significant abdominal pain. No fever. No dysuria. Said he used Zofran at home with limited relief. He said normally Benadryl and Ativan helped him in the emergency department. Prior similar symptoms: Yes Recent Illness/Hospitalization: Yes [facility] Medical History Strain of right psoas muscle Acute pain of right hip Fall Alcohol abuse Alcohol withdrawal Basal cell carcinoma of anterior chest Wears glasses Wears dentures Depression Anxiety Alcohol use Arthritis History of renal disease Back pain Injury of head and neck History of ulceration History of IBS History of diverticulitis Gastric reflux CPAP (continuous positive airway pressure) dependence Former smoker COPD (chronic obstructive pulmonary disease) Shortness of breath on exertion History of pain when walking History of edema History of stress test Encounter for screening for COVID-19 Chest wall contusion (~12/18/20) HTN (hypertension) Home Medications ?Medication ?Instructions ?Recorded ?Last Taken ?Type lisinopril 20 mg tablet 20 mg PO BID blood pressure 03/16/18 05/27/24 History pantoprazole 40 mg tablet,delayed 40 mg PO BID reflux 09/07/19 05/27/24 History release albuterol sulfate 2.5 mg/3 mL 2.5 mg inhalation Q6H PRN 05/18/23 Unknown History (0.083 %) solution for nebulization shortness of breath or wheezing fluvoxamine 100 mg tablet 100 mg PO QHS 05/18/23 05/27/24 History amlodipine 5 mg tablet 5 mg PO DAILY 05/24/23 05/27/24 History omeprazole 40 mg capsule,delayed 40 mg PO DAILY 12/30/23 05/27/24 History release ondansetron 4 mg disintegrating 4 mg PO Q8H PRN Nausea 04/22/24 Unknown History tablet promethazine 25 mg tablet 25 mg PO TID PRN PRN nausea 04/23/24 Unknown History acetaminophen 325 mg tablet 650 mg (2 x 325 mg) PO Q4H PRN PRN 04/27/24 Unknown Rx Fever, pain -11/16 #0 tabs calcium carbonate 500 mg (2.5 x 200 mg calcium (500 04/27/24 Unknown Rx mg)) PO TIDCM PRN DYSPEPSIA/INDIGESTION #0 tabs lorazepam 0.5 mg tablet 0.5 mg PO Q6H PRN PRN Anxiety #8 04/27/24 05/27/24 Rx tabs sennosides 8.6 mg-docusate sodium 1 tab PO DAILY #1 TAB 04/27/24 Unknown Rx 50 mg tablet (Stimulant Laxative Plus) doxepin 10 mg capsule 10 - 20 mg PO QHS PRN PRN insomnia 05/28/24 05/27/24 History ibuprofen 800 mg tablet 800 mg PO DAILY 05/28/24 05/27/24 History Allergy/AdvReac Type Severity Reaction Status Date / Time amoxicillin Allergy doesnt Verified 05/28/24 10:20 rememeber fluoxetine (From Prozac) AdvReac Other Verified 05/28/24 10:20 Family History Mother Myocardial infarction Hypertension Father Cancer Hypertension Surgical History Hx of colonoscopy Hx of blepharoplasty Hx of esophagogastroduodenoscopy History of eye surgery Social History household members: none Smoking Status: Former smoker how long ago did patient quit smoking: quit 20 yr ago alcohol intake: current Alcohol type: hard liquor substance use type: does not use additional social history: personal hx of PEs ROS ROS ED ROS Narrative Nausea and vomiting. Constitutional Constitutional ED: Denies chills or fever(s) ENT ENT ED: Denies ear pain Cardiovascular Cardiovascular: Denies chest pain Respiratory/Chest Respiratory/Chest: Denies cough or dyspnea Gastrointestinal Gastrointestinal: Reports nausea and vomiting; Denies abdominal pain, constipation, diarrhea or melena Genitourinary Genitourinary ED: Denies dysuria or hematuria Musculoskeletal Musculoskeletal: Denies arthralgias Integumentary Denies abscess Neurologic Neurologic: Denies headache(s) Psychiatric Psychiatric: Denies anxiety Endocrine Endocrinology: Denies polydipsia Hematologic/Lymphatic Hematologic/Lymphatic: Denies easy bleeding Allergic/Immunologic Allergic/Immunologic ED: Denies mouth swelling, tongue swelling or urticaria EXAM Physical Exam Narrative Exam Narrative: 74-year-old male sitting upright in bed. Vital signs are stable afebrile. He does not look septic or toxic. Currently there is no family with him. He is actively retching. H EENT exam pupils round react to light. Mildly dry mucous membranes. No facial droop or trauma. Neck nontender. No lymphadenopathy. Lungs clear to auscultation bilaterally. Heart regular rhythm rate about 90 no murmur. Chest wall ribs nontender. Abdomen soft nondistended normal bowel sounds without peritoneal signs. No localizing tenderness. No hernia or mass. No obstruction. Right upper or right lower quadrants are nontender. Moving all 4 extremities. Nontender no edema. Normal strength. Neurologically is awake alert. Answering questions following commands. No focal motor deficits. Back nontender. Const Vital Signs: 05/28/24 10:20 05/28/24 10:56 05/28/24 11:21 Temperature 97.4 F L Temperature Source Oral Pulse Rate 90 98 84 Respiratory Rate 22 H 26 H 22 H Blood Pressure 170/96 H 151/87 H 164/88 H Blood Pressure Mean 120 108 113 Pulse Ox 94 93 90 Oxygen Delivery Method Room Air Room Air Room Air Positive well nourished and well developed; Negative for cachectic, contractures or unkempt General Appearance ED: well developed and NAD; Negative for unkempt, cachectic, contractures or pallor Nutritional Appearance: Negative for cachectic HEENT Reports dry mucous membranes; Denies moist mucous membranes normocephalic and atraumatic Mouth ED: Yes dry mucous membranes Mouth: dry mucous membranes Eyes PERRL and EOMs intact bilaterally Neck no lymphadenopathy, supple and no JVD Resp normal respiratory effort and clear to auscultation bilaterally Auscultation: Negative for rales, rhonchi, wheezes or diminished lung sounds Cardio regular rate, regular rhythm, S1 normal heart sound, S2 normal heart sound and no murmurs GI non-tender, non-distended and no masses Inspection: Negative for abdominal distention Auscultation: normoactive bowel sounds Palpation: soft; Negative for tender, guarding, hernia, mass, pulsatile mass or rebound tenderness present Back/Spine no CVA tenderness General Back: Negative for CVA tenderness Cervical Spine: Negative for cervical spine tenderness Thoracic Spine / Upper Back: Negative for thoracic spinal tenderness Lumbar Spine / Lower Back: Negative for lumbar spinal tenderness Extremity full ROM General Extremety ED: Negative for edema or tenderness General Extremity: Negative for edema Neuro CN's II-XII intact bilaterally and moves all extremities Sensorium / Orientation: alert, oriented to person, oriented to place and oriented to time; Negative for orientation impaired, confused or lethargic Motor Exam: strength 5/5 throughout Psych mental status grossly normal and thought process normal Appearance: Negative for unkempt Attitude: No agitated Mood & Affect: Negative for depressed Skin General Skin Exam: Negative for jaundice or pallor Lesions: no lesions Rashes: no rashes MDM MDM MDM Narrative Medical decision making narrative: 74-year-old male with recurrent nausea and vomiting has had this for a length of time without specific diagnosis. He had a extensive workup done this weekend which was negative. He will be treated with IV fluids, Zofran, Ativan and Benadryl. CBC and chemistry of be obtained. I do not think he needs any abdominal imaging his abdomen is benign and nontender. He is not complaining of any abdominal pain. Repeat exam at 1:12 PM patient still complaining of nausea. Abdomen is benign. We went over his labs. He will be given additional Zofran and reassessed. Patient doing well at 2:30 PM. Abdomen benign. Nausea is progressively getting better. He requested additional dose of nausea medication only given a third dose of Zofran. He will be discharged to home. He had multiple episodes like this in the past. They have been able to specifically diagnose why he has recurrent vomiting. He denies cannabis use. History & Record Review Discussion w/independent historian: Patient Additional record(s) reviewed:: Prior inpatient record, Prior outpatient record, Prior ED visit and Prior labs Lab Data Attestation: I reviewed the patient's lab results. Lab results narrative: CBC shows a white count 12.4. H&H 14 and 41. Platelets 316. Electrolytes show sodium 129. Gap 11. Normal BUN and 18 and creatinine 0.8. Glucose 114. Labs: Laboratory Results - last 24 hr 05/28/24 10:30 WBC 12.4 H RBC 4.58 L Hgb 14.8 Hct 41.7 MCV 91.0 MCH 32.3 H MCHC 35.5 RDW Std Deviation 42.3 RDW Coeff of [place] 12.9 Plt Count 316 MPV 9.5 Immature Gran % (Auto) 0.500 Neut % (Auto) 76.2 H Lymph % (Auto) 13.7 L Davidson % (Auto) 8.9 Eos % (Auto) 0.3 Baso % (Auto) 0.4 Absolute Neuts (auto) 9.5 H Absolute Lymphs (auto) 1.70 Nucleated RBC % 0 Sodium 129 L Potassium 3.9 Chloride 91 L Carbon Dioxide 26.3 Anion Gap 11 BUN 18 Creatinine 0.85 Estim Creat Clear Calc 88.64 Est GFR (MDRD) Non-Af 90 BUN/Creatinine Ratio 21.0 H Glucose 114 H Calcium 9.8 Discharge Plan Triage Chief Complaint: Nausea/Vomiting ED Provider: Vick Ruiz Dx/Rx/DC Orders Prescriptions: No Action amlodipine 5 mg tablet 5 mg PO DAILY omeprazole 40 mg capsule,delayed release(DR/EC) 40 mg PO DAILY lisinopril 20 MG tablet 20 mg PO BID pantoprazole 40 MG tablet 40 mg PO BID albuterol sulfate 2.5 mg /3 mL (0.083 %) solution for nebulization 2.5 mg inhalation Q6H PRN (Reason: shortness of breath or wheezing) fluvoxamine 100 mg tablet 100 mg PO QHS ondansetron 4 mg tablet,disintegrating 4 mg PO Q8H PRN (Reason: Nausea) promethazine 25 mg tablet 25 mg PO TID PRN PRN (Reason: nausea) acetaminophen 325 mg Tablet 650 mg PO Q4H PRN PRN (Reason: Fever, pain 1-10/10) Qty: 0 0RF lorazepam 0.5 mg Tablet 0.5 mg PO Q6H PRN PRN (Reason: Anxiety) Qty: 8 0RF calcium carbonate 200 mg calcium (500 mg) Tablet,Chewable 500 mg PO TIDCM PRN (Reason: DYSPEPSIA/INDIGESTION) Qty: 0 0RF sennosides-docusate sodium [Stimulant Laxative Plus] 8.6-50 mg Tablet 1 tab PO DAILY Qty: 1 0RF ibuprofen 800 mg tablet 800 mg PO DAILY Rx Instructions: 800 mg orally; family states pt has been taking more than 4xd doxepin 10 mg capsule 10 - 20 mg PO QHS PRN PRN (Reason: insomnia) Primary Care Provider: Alfred Bailey Referrals: Alfred Bailey DO [Primary Care Provider] - Print Language: Singaporean
[2024-05-28] MEDS: Ondansetron 4 MG/2 ML Vial IV ×3 (10:51→14:18)
[2024-05-28] MEDS: 0.9% Normal Saline (1000mL) 1,000 ML 1000 ML IV (10:51)
[2024-05-28] MEDS: DiphenhydrAMINE 50 MG/ML Syringe 25 MG IV (10:51)
[2024-05-28 10:54] LABS: Absolute Neutrophil Count 9.5 X10^3/uL (2.0-7.7); Basophil# 0.05 X10^3/uL; Basophil% 0.4 % (0-1); Eosinophil# 0.04 X10^3/uL; Eosinophils% 0.3 % (0-5); Hematocrit 41.7 % (40-54); Hemoglobin 14.8 g/dL (13.0-16.5); Lymphocyte % 13.7 % (19-41); Mean Corp Hgb Conc 35.5 g/dL (32-36); Mean Corpuscular Hgb 32.3 pg (27.0-32.0); Mean Platelet Vol. 9.5 fl (6.2-12.0); Monocyte# 1.11 X10^3/uL; Monocyte% 8.9 % (0-10); NRBC Flagged by Analyzer 0 % (0-5); Neutrophil # 9.47 X10^3/uL (2.7-7.7); Neutrophil % 76.2 % (47-70); Platelet Count 316 K/mm3 (150-450); RBC Distribution Width CV 12.9 % (11.6-14.6); RBC Distribution Width SD 42.3 fl (35.1-43.9); Red Blood Count 4.58 M/mm3 (4.6-6.2); White Blood Count 12.4 K/mm3 (4.4-11.0)
[2024-05-28] MEDS: Lorazepam 2 MG/ML WCH Syringe 1 MG IV (10:55)
[2024-05-28 10:56] VITALS: BP 151/87; PULSE 98; RESP 26; O2SAT 93
[2024-05-28 11:21] VITALS: BP 164/88; PULSE 84; RESP 22; O2SAT 90
[2024-05-28 11:27] LABS: Anion Gap 11 (5-15); BUN 18 mg/dL (4-19); Calcium,Total 9.8 mg/dL (7.6-11.0); Carbon Dioxide 26.3 mmol/L (21.0-32.0); Chloride 91 mmol/L (98-108); Creatinine, Serum 0.85 mg/dL (0.70-1.20); EST Glomerular Filtration Rate 90 (>60); Estimated Creatinine Clearance 88.64 ml/min (50-250); Glucose 114 mg/dL (70-99); Potassium 3.9 mmol/L (3.3-5.1); Sodium Level 129 mmol/L (133-145)
[2024-05-28 15:25] VITALS: BP 145/72; PULSE 78; RESP 12; TEMP 36.6; O2SAT 97
== END 2024-05-28 15:39 | disposition home or self-care (01) ==
PROVIDERS: Emergency Provider Emergency Medicine; PCP Family Medicine; Visit Provider Emergency Medicine
DX: R11.2 Nausea with vomiting, unspecified (principal); J44.9 Chronic obstructive pulmonary disease, unspecified; Z87.891 Personal history of nicotine dependence; I10 Essential (primary) hypertension; Z90.5 Acquired absence of kidney; Z99.89 Dependence on other enabling machines and devices; K21.9 Gastro-esophageal reflux disease without esophagitis; Z79.899 Other long term (current) drug therapy; F41.9 Anxiety disorder, unspecified
CPT/HCPCS: 80048; 85025; 96361; 96374; 96375; 96376; 99285; A4216; J2405

== ENCOUNTER 2024-06-07 15:51 | Emergency (ER) | payer MEDICARE, SELFPAY ==
[2024-06-07 15:51] VITALS: BP 152/78; PULSE 96; RESP 16; TEMP 36.6; O2SAT 100; BMI 37.4
[2024-06-07] MEDS: 0.9% Normal Saline (1000mL) 1,000 ML 999 ML IV (16:44)
[2024-06-07] MEDS: Lorazepam 2 MG/ML WCH Syringe 0.5 MG IV (16:45)
[2024-06-07] MEDS: Ondansetron 4 MG/2 ML Vial IV (16:45)
[2024-06-07] MEDS: DiphenhydrAMINE 50 MG/ML Syringe 25 MG IV (16:45)
--- NOTE | 2024-06-07 16:47 | EX.ED.DYSGE1 ---
HPI <CHIQUI Welsh - Last Filed: 06/07/24 20:37> History of Present Illness Chief Complaint: Nausea/Vomiting Narrative Narrative: Patient presenting today with intractable nausea that he has had since this morning. He does have a history of cyclic vomiting syndrome that has been worked up by GI in the past, he reports that they have never been able to figure out what causes his vomiting. He denies marijuana use. He reports previous history of alcohol use but states that he stopped drinking several weeks ago. He has not had any vomiting today, just dry heaving. He has tried Zofran with minimal relief of his symptoms. He reports that when he is here he usually gets IV Benadryl and Ativan which improves his symptoms. He denies having any fevers, chills, abdominal pain, urinary symptoms, diarrhea, and stool changes. PFSH <CHIQUI Welsh - Last Filed: 06/07/24 20:37> FORMERLY [facility], [facility]–1983 Medical History Strain of right psoas muscle Acute pain of right hip Fall Alcohol abuse Alcohol withdrawal Basal cell carcinoma of anterior chest Wears glasses Wears dentures Depression Anxiety Alcohol use Arthritis History of renal disease Back pain Injury of head and neck History of ulceration History of IBS History of diverticulitis Gastric reflux CPAP (continuous positive airway pressure) dependence Former smoker COPD (chronic obstructive pulmonary disease) Shortness of breath on exertion History of pain when walking History of edema History of stress test Encounter for screening for COVID-19 Chest wall contusion (~12/18/20) HTN (hypertension) Home Medications ?Medication ?Instructions ?Recorded ?Last Taken ?Type lisinopril 20 mg tablet 20 mg PO BID blood pressure 03/16/18 05/27/24 History pantoprazole 40 mg tablet,delayed 40 mg PO BID reflux 09/07/19 05/27/24 History release albuterol sulfate 2.5 mg/3 mL 2.5 mg inhalation Q6H PRN 05/18/23 Unknown History (0.083 %) solution for nebulization shortness of breath or wheezing fluvoxamine 100 mg tablet 100 mg PO QHS 05/18/23 05/27/24 History amlodipine 5 mg tablet 5 mg PO DAILY 05/24/23 05/27/24 History omeprazole 40 mg capsule,delayed 40 mg PO DAILY 12/30/23 05/27/24 History release ondansetron 4 mg disintegrating 4 mg PO Q8H PRN Nausea 04/22/24 Unknown History tablet promethazine 25 mg tablet 25 mg PO TID PRN PRN nausea 04/23/24 Unknown History acetaminophen 325 mg tablet 650 mg (2 x 325 mg) PO Q4H PRN PRN 04/27/24 Unknown Rx Fever, pain -11/16 #0 tabs calcium carbonate 500 mg (2.5 x 200 mg calcium (500 04/27/24 Unknown Rx mg)) PO TIDCM PRN DYSPEPSIA/INDIGESTION #0 tabs lorazepam 0.5 mg tablet 0.5 mg PO Q6H PRN PRN Anxiety #8 04/27/24 05/27/24 Rx tabs sennosides 8.6 mg-docusate sodium 1 tab PO DAILY #1 TAB 04/27/24 Unknown Rx 50 mg tablet (Stimulant Laxative Plus) doxepin 10 mg capsule 10 - 20 mg PO QHS PRN PRN insomnia 05/28/24 05/27/24 History ibuprofen 800 mg tablet 800 mg PO DAILY 05/28/24 05/27/24 History ondansetron 4 mg disintegrating 4 mg PO Q6H PRN nausea and 05/28/24 Unknown Rx tablet vomiting #10 tabs sodium chloride 1,000 mg soluble 1,000 mg PO DAILY 5 days #5 tabs 06/07/24 Unknown Rx tablet Allergy/AdvReac Type Severity Reaction Status Date / Time amoxicillin Allergy doesnt Verified 06/07/24 15:51 rememeber fluoxetine (From Prozac) AdvReac Other Verified 06/07/24 15:51 Family History Mother Myocardial infarction Hypertension Father Cancer Hypertension Surgical History Hx of colonoscopy Hx of blepharoplasty Hx of esophagogastroduodenoscopy History of eye surgery Social History household members: none Smoking Status: Former smoker how long ago did patient quit smoking: quit 20 yr ago alcohol intake: current Alcohol type: hard liquor substance use type: does not use additional social history: personal hx of PEs ROS <CHIQUI Welsh Last Filed: 06/07/24 20:37> ROS ED Constitutional Constitutional ED: Denies chills or fever(s) Cardiovascular Cardiovascular: Denies chest pain Respiratory/Chest Respiratory/Chest: Denies dyspnea Gastrointestinal Gastrointestinal: Reports nausea; Denies abdominal pain, diarrhea, melena or vomiting Genitourinary Genitourinary ED: Denies dysuria, hematuria or urinary urgency Musculoskeletal Musculoskeletal: Denies arthralgias or myalgias Integumentary Denies rash Neurologic Neurologic: Denies weakness EXAM <CHIQUI Welsh Last Filed: 06/07/24 20:37> Physical Exam Const Vital Signs: 06/07/24 15:51 06/07/24 17:51 06/07/24 19:00 Temperature 98 F Temperature Source Temporal Pulse Rate 96 88 Respiratory Rate 16 20 H 12 Blood Pressure 152/78 H 121/68 H 122/65 H Blood Pressure Mean 102 85 84 Pulse Ox 100 95 98 Oxygen Delivery Method Room Air Room Air 06/07/24 19:46 Temperature 99 F Temperature Source Pulse Rate 60 Respiratory Rate 12 Blood Pressure 145/70 H Blood Pressure Mean 95 Pulse Ox 100 Oxygen Delivery Method Positive well nourished, well developed and no apparent distress General Appearance ED: well developed HEENT Reports normocephalic and head/scalp atraumatic Mouth ED: Yes moist mucous membranes normal Eyes PERRL and EOMs intact bilaterally Neck full ROM and supple Chest Wall inspection of chest normal Resp normal respiratory effort and clear to auscultation bilaterally Cardio regular rate and regular rhythm GI soft to palpation, non-tender, non-distended and no masses GI Narrative: No rigidity or guarding Back/Spine normal ROM and normal to inspection Extremity normal to inspection and full ROM Neuro oriented x3, CN's II-XII intact bilaterally, moves all extremities, no focal motor deficits and no sensory deficits noted Sensorium / Orientation: awake and alert Psych mental status grossly normal and thought process normal Skin no rashes or lesions noted and no wounds <Dr. Brock Garcia DO - Last Filed: 06/08/24 02:16> Physical Exam Const Vital Signs: 06/07/24 15:51 06/07/24 17:51 06/07/24 19:00 Temperature 98 F Temperature Source Temporal Pulse Rate 96 88 Respiratory Rate 16 20 H 12 Blood Pressure 152/78 H 121/68 H 122/65 H Blood Pressure Mean 102 85 84 Pulse Ox 100 95 98 Oxygen Delivery Method Room Air Room Air 06/07/24 19:46 Temperature 99 F Temperature Source Pulse Rate 60 Respiratory Rate 12 Blood Pressure 145/70 H Blood Pressure Mean 95 Pulse Ox 100 Oxygen Delivery Method [facility] <CHIQUI Welsh - Last Filed: 06/07/24 20:37> [facility] Narrative Medical decision making narrative: Patient presenting today with nausea that started this morning. He has been seen here for cyclic vomiting several times in the past. He reports that his symptoms today are consistent with previous visits. He is requesting IV Benadryl and Ativan and reports that this is usually what helps him. He will be given this as well as IV fluids and Zofran. CBC will be obtained to assess for leukocytosis, he does have a elevated WBC at 14.3, and this is consistent with previous labs. UA is negative for UTI. BMP shows a sodium of 127, this is slightly lower than previous labs. No kidney dysfunction or anion gap. He does not have any abdominal pain or tenderness to necessitate need for abdominal imaging. On reexamination he reports significant improvement of his symptoms. He does have a history of hyponatremia, he reports that this has been ongoing over the last several weeks, BMP was repeated after 1 L IV fluids and sodium is now 128. I will give him a few days of salt tablets. He is now tolerating p.o. fluids. He will be discharged home with stable condition. He does have antiemetics at home that he can take as needed. Lab Data Attestation: I reviewed the patient's lab results. Labs: Laboratory Results - last 24 hr 06/07/24 06/07/24 06/07/24 16:40 17:19 18:40 WBC 14.3 H RBC 4.30 L Hgb 13.8 Hct 39.2 L MCV 91.2 MCH 32.1 H MCHC 35.2 RDW Std Deviation 43.0 RDW Coeff of [place] 12.9 Plt Count 306 MPV 9.6 Immature Gran % (Auto) 0.400 Neut % (Auto) 87.9 H Lymph % (Auto) 7.0 L [place] % (Auto) 4.5 Eos % (Auto) 0.0 Baso % (Auto) 0.2 Absolute Neuts (auto) 12.6 H Absolute Lymphs (auto) 1.01 Nucleated RBC % 0 Sodium 127 L 128 L Potassium 4.0 3.8 Chloride 91 L 93 L Carbon Dioxide 21.8 21.2 Anion Gap 14 13 BUN 13 11 Creatinine 0.68 L 0.63 L Estim Creat Clear Calc 95.23 95.23 Est GFR (MDRD) Non-Af 97 99 BUN/Creatinine Ratio 18.6 17.6 Glucose 116 H 119 H Calcium 9.3 8.9 Total Bilirubin 0.49 Direct Bilirubin 0.22 AST 26 ALT 21 Alkaline Phosphatase 89 Total Protein 7.5 Albumin 3.9 Globulin 3.6 Lipase 35 Urine Color Yellow Urine Clarity Clear Urine pH 7.0 Ur Specific [place] 1.010 Urine Protein Negative Urine Glucose (UA) Normal Urine Ketones Negative Urine Occult Blood Negative Urine Nitrite Negative Urine Bilirubin Negative Urine Urobilinogen Normal Ur Leukocyte Esterase 25 H Urine RBC 0-5 SEEN Urine WBC 0-5 SEEN Ur Squamous Epith Cells 0 SEEN Urine Bacteria 0 SEEN Hyaline Casts 0-5 SEEN Urine Mucus 0 SEEN <Dr. Brock Garcia, DO - Last Filed: 06/08/24 02:16> [facility] Narrative Medical decision making narrative: Patient presenting today with nausea that started this morning. He has been seen here for cyclic vomiting several times in the past. He reports that his symptoms today are consistent with previous visits. He is requesting IV Benadryl and Ativan and reports that this is usually what helps him. He will be given this as well as IV fluids and Zofran. CBC will be obtained to assess for leukocytosis, he does have a elevated WBC at 14.3, and this is consistent with previous labs. UA is negative for UTI. BMP shows a sodium of 127, this is slightly lower than previous labs. No kidney dysfunction or anion gap. He does not have any abdominal pain or tenderness to necessitate need for abdominal imaging. On reexamination he reports significant improvement of his symptoms. He does have a history of hyponatremia, he reports that this has been ongoing over the last several weeks, BMP was repeated after 1 L IV fluids and sodium is now 128. I will give him a few days of salt tablets. He is now tolerating p.o. fluids. He will be discharged home with stable condition. He does have antiemetics at home that he can take as needed. Supervisory Physician Note Patient was seen and examined with the Advanced Practice Provider. Nursing notes and vital signs have been reviewed. Pertinent old records have been reviewed. I agree with the essential elements of the DULCE's history, physical exam, assessment, and plan. The differential diagnosis and management options were discussed with the DULCE. I participated in determining and agree with the management, procedures, final impression and disposition as documented. See changes noted by me. Please see addendum or separate note for any additional details. 74-year-old male with history of cyclic vomiting syndrome who follows with GI presents for evaluation of nausea. Associated symptom is dry heaves. Onset this morning. Symptoms similar to previous episodes. Denies any fever, chills, shortness of breath, chest pain abdominal pain, diarrhea, constipation, dysuria. Gen: A&O x3, NAD Head: Normocephalic, atraumatic Eyes: No sclera icterus, conjunctiva clear, PERRL, EOMI ENT: TMs clear BL, moist mucous membranes, no swelling/lacerations/blood in the mouth or the nares, No nasal septal hematoma, no facial tenderness Neck: Trachea midline, No JVD, Nontender CV: RRR, no murmurs, no chest wall TTP Resp: Lungs CTA BL, no w/r/c GI: Abd soft, non-distended, non-tender, no r/r/g Musc: Full ROM, no deformity, no spinal TTP, no soto step-offs Skin: Warm, dry, intact Neuro: Alert, oriented, grossly intact, sensation intact, GCS 15 Psych: Cooperative, appropriate mood and affect Patient presents for evaluation of nausea. History of cyclic vomiting syndrome. On chart review, symptoms in the past have improved with Benadryl and Ativan. Patient ordered these as well as NS bolus and Zofran. Will obtain basic labs and UA to assess for other etiologies such as UTI, dehydration, pancreatitis. Abdominal exam is benign therefore no imaging needed at this time. Prior to me seeing the patient but after the DULCE, patient used the restroom without telling nursing and fell. Patient states he had just had a bowel movement in which he was walking out of the bathroom and his right leg gave out on him. States he landed on the right hip. Denies hitting his head. No LOC. Not on blood thinners. Denies any pain of the extremities. Denies any lightheadedness, shortness of breath, chest pain. States his nausea has improved since receiving the medication and having a bowel movement. He has history of issues in that right hip due to a recent fall. Has not had surgery. CBC with leukocytosis of 14.3. Patient has history of leukocytosis in the past. May be reactive. Could be early viral illness. No anemia. BMP with hyponatremia of 127. On chart review, patient has hyponatremia in the past. His previous sodium was 129 on 05/28/2024. Patient states that he has a history of hyponatremia. He was recently had a SNF facility in which they told him that he needs to increase his salt intake. He states that he does not like salt. He states that this has been a chronic issue in the past. States he has been eating and drinking well. Denies any confusion, weakness. Mild dehydration may also be contributing therefore will repeat after NS bolus. No TOMI. No transaminitis. Lipase unremarkable. UA negative for UTI. Repeat BMP shows hyponatremia at 128. Given patient has a history of this in the past and is currently asymptomatic I do not feel that he requires admission. Patient was updated of this and confirmed understanding. He states he does not want to be admitted. Will place him on several days of salt tabs. Follow-up with PCP. He confirmed understanding. Patient tolerated p.o. intake. Patient stable to discharge home. Return precautions explained. Impression: 1. Nausea with history of cyclic vomiting syndrome 2. Chronic hyponatremia Lab Data Labs: Laboratory Results - last 24 hr 06/07/24 06/07/24 06/07/24 16:40 17:19 18:40 WBC 14.3 H RBC 4.30 L Hgb 13.8 Hct 39.2 L MCV 91.2 MCH 32.1 H MCHC 35.2 RDW Std Deviation 43.0 RDW Coeff of [place] 12.9 Plt Count 306 MPV 9.6 Immature Gran % (Auto) 0.400 Neut % (Auto) 87.9 H Lymph % (Auto) 7.0 L [place] % (Auto) 4.5 Eos % (Auto) 0.0 Baso % (Auto) 0.2 Absolute Neuts (auto) 12.6 H Absolute Lymphs (auto) 1.01 Nucleated RBC % 0 Sodium 127 L 128 L Potassium 4.0 3.8 Chloride 91 L 93 L Carbon Dioxide 21.8 21.2 Anion Gap 14 13 BUN 13 11 Creatinine 0.68 L 0.63 L Estim Creat Clear Calc 95.23 95.23 Est GFR (MDRD) Non-Af 97 99 BUN/Creatinine Ratio 18.6 17.6 Glucose 116 H 119 H Calcium 9.3 8.9 Total Bilirubin 0.49 Direct Bilirubin 0.22 AST 26 ALT 21 Alkaline Phosphatase 89 Total Protein 7.5 Albumin 3.9 Globulin 3.6 Lipase 35 Urine Color Yellow Urine Clarity Clear Urine pH 7.0 Ur Specific [place] 1.010 Urine Protein Negative Urine Glucose (UA) Normal Urine Ketones Negative Urine Occult Blood Negative Urine Nitrite Negative Urine Bilirubin Negative Urine Urobilinogen Normal Ur Leukocyte Esterase 25 H Urine RBC 0-5 SEEN Urine WBC 0-5 SEEN Ur Squamous Epith Cells 0 SEEN Urine Bacteria 0 SEEN Hyaline Casts 0-5 SEEN Urine Mucus 0 SEEN Discharge Plan Triage Chief Complaint: Nausea/Vomiting ED Midlevel Provider: Fely Roth ED Provider: Brock Garcia Dx/Rx/DC Orders Clinical Impression: Chronic hyponatremia, Cyclic vomiting syndrome Instructions: ED Hyponatremia, ED Vomiting (Adult) Prescriptions: New sodium chloride 1,000 mg tablet,soluble 1,000 mg PO DAILY 5 Days Qty: 5 0RF No Action amlodipine 5 mg tablet 5 mg PO DAILY omeprazole 40 mg capsule,delayed release(DR/EC) 40 mg PO DAILY lisinopril 20 MG tablet 20 mg PO BID pantoprazole 40 MG tablet 40 mg PO BID albuterol sulfate 2.5 mg /3 mL (0.083 %) solution for nebulization 2.5 mg inhalation Q6H PRN (Reason: shortness of breath or wheezing) fluvoxamine 100 mg tablet 100 mg PO QHS ondansetron 4 mg tablet,disintegrating 4 mg PO Q8H PRN (Reason: Nausea) promethazine 25 mg tablet 25 mg PO TID PRN PRN (Reason: nausea) acetaminophen 325 mg Tablet 650 mg PO Q4H PRN PRN (Reason: Fever, pain 1-10/10) Qty: 0 0RF lorazepam 0.5 mg Tablet 0.5 mg PO Q6H PRN PRN (Reason: Anxiety) Qty: 8 0RF calcium carbonate 200 mg calcium (500 mg) Tablet,Chewable 500 mg PO TIDCM PRN (Reason: DYSPEPSIA/INDIGESTION) Qty: 0 0RF sennosides-docusate sodium [Stimulant Laxative Plus] 8.6-50 mg Tablet 1 tab PO DAILY Qty: 1 0RF ibuprofen 800 mg tablet 800 mg PO DAILY Rx Instructions: 800 mg orally; family states pt has been taking more than 4xd doxepin 10 mg capsule 10 - 20 mg PO QHS PRN PRN (Reason: insomnia) ondansetron 4 mg tablet,disintegrating 4 mg PO Q6H PRN (Reason: nausea and vomiting) Qty: 10 0RF Primary Care Provider: Alfred Bailey Referrals: Alfred Bailey DO [Primary Care Provider] - 5-7 Days Activity Restrictions/Additional Instructions: Follow-up with your PCP and return for any worsening symptoms or other concerns. Print Language: Swedish Disposition Disposition: Home, Self Care Discharge Date/Time: 06/07/24 19:46
--- NOTE | 2024-06-07 16:47 | ED.RN ---
Pt asked if he had a ride home prior to medication administration. Pt stated that son in law brought him, but is not able to get him back upstairs. There is [address] into his home. Per pt it only cost $150 for physicians to take him home so he will call them. Pt advised that they may not be able to accomodate that and he needed to follow up with a ride.
[2024-06-07 16:49] LABS: Absolute Lymphocyte Count 1.01 X10^3/uL (0.83-4.51); Absolute Neutrophil Count 12.6 X10^3/uL (2.0-7.7); Basophil# 0.03 X10^3/uL; Basophil% 0.2 % (0-1); Hematocrit 39.2 % (40-54); Hemoglobin 13.8 g/dL (13.0-16.5); Lymphocyte # 1.01 X10^3/ul (0.83-4.51); Mean Corp Hgb Conc 35.2 g/dL (32-36); Mean Corpuscular Hgb 32.1 pg (27.0-32.0); Mean Corpuscular Volume 91.2 fL (80-94); Mean Platelet Vol. 9.6 fl (6.2-12.0); Monocyte# 0.65 X10^3/uL; Monocyte% 4.5 % (0-10); NRBC Flagged by Analyzer 0 % (0-5); Neutrophil # 12.58 X10^3/uL (2.7-7.7); Neutrophil % 87.9 % (47-70); Platelet Count 306 K/mm3 (150-450); RBC Distribution Width CV 12.9 % (11.6-14.6); White Blood Count 14.3 K/mm3 (4.4-11.0)
[2024-06-07 17:19] LABS: Anion Gap 14 (5-15); BUN 13 mg/dL (4-19); BUN/Creat Ratio 18.6 RATIO (10-20); Calcium,Total 9.3 mg/dL (7.6-11.0); Carbon Dioxide 21.8 mmol/L (21.0-32.0); Chloride 91 mmol/L (98-108); Creatinine, Serum 0.68 mg/dL (0.70-1.20); EST Glomerular Filtration Rate 97 (>60); Estimated Creatinine Clearance 95.23 ml/min (50-250); Glucose 116 mg/dL (70-99); Sodium Level 127 mmol/L (133-145)
[2024-06-07 17:24] LABS: Bacteria 0 SEEN /hpf (None Seen); Mucous, Urine 0 SEEN /hpf (<or=2+); Squamous Epithelial Cells - UA 0 SEEN /hpf (0-5)
[2024-06-07 17:26] LABS: Color, Urine Yellow (Yellow); Glucose, Dipstick Normal (Normal); Ketone-Dipstick Negative (Negative); Leukocyte Esterase-Dipstick 25 /ul (Negative); Nitrite-Dipstick Negative (Negative); Occult Blood-Urine Negative /ul (Negative); Protein-Dipstick Negative (Negative); Urine Bilirubin Dipstick Negative (Negative); Urine Clarity Clear (Clear); Urine Urobilinogen Normal (Normal)
[2024-06-07 17:51] VITALS: BP 121/68; RESP 20; O2SAT 95
[2024-06-07 18:37] LABS: AST(SGOT) 26 U/L (<=37); Alanine Aminotransfer ALT/SGPT 21 U/L (<=46); Albumin, Serum 3.9 g/dL (3.4-4.8); Alkaline Phosphatase 89 U/L (40-129); Bilirubin, Direct 0.22 mg/dL (0.00-0.30); Globulin 3.6 g/dL (2.2-4.2); Lipase 35 U/L (13-75); Protein, Total 7.5 g/dL (5.9-8.4); Total Bilirubin 0.49 mg/dL (0.00-1.30)
[2024-06-07 18:46] LABS: Red Blood Cells-Urine 0-5 SEEN /hpf (0-5); White Blood Cells 0-5 SEEN /hpf (0-5)
[2024-06-07 18:47] LABS: Hyaline Cast 0-5 SEEN /lpf (0-5)
[2024-06-07 19:00] VITALS: BP 122/65; PULSE 88; RESP 12; O2SAT 98
[2024-06-07 19:29] LABS: Anion Gap 13 (5-15); BUN 11 mg/dL (4-19); BUN/Creat Ratio 17.6 RATIO (10-20); Calcium,Total 8.9 mg/dL (7.6-11.0); Carbon Dioxide 21.2 mmol/L (21.0-32.0); Chloride 93 mmol/L (98-108); Creatinine, Serum 0.63 mg/dL (0.70-1.20); EST Glomerular Filtration Rate 99 (>60); Estimated Creatinine Clearance 95.23 ml/min (50-250); Glucose 119 mg/dL (70-99); Potassium 3.8 mmol/L (3.3-5.1); Sodium Level 128 mmol/L (133-145)
--- NOTE | 2024-06-07 19:33 | ED.RN ---
SON CALLED PER PT. REQUEST FOR A RIDE HOME.
[2024-06-07 19:46] VITALS: BP 145/70; PULSE 60; RESP 12; TEMP 37.2; O2SAT 100
== END 2024-06-07 19:46 | disposition home or self-care (01) ==
PROVIDERS: Physician Assistant; Emergency Provider Surgery; PCP Family Medicine; Referring Provider Surgery; Visit Provider Surgery
DX: R11.2 Nausea with vomiting, unspecified (principal); J44.9 Chronic obstructive pulmonary disease, unspecified; Z87.891 Personal history of nicotine dependence; E87.1 Hypo-osmolality and hyponatremia; I10 Essential (primary) hypertension; Z79.899 Other long term (current) drug therapy; K21.9 Gastro-esophageal reflux disease without esophagitis; F41.9 Anxiety disorder, unspecified
CPT/HCPCS: 80048; 80076; 81001; 83690; 85025; 96361; 96374; 96375; 99282; A4216; J2405

== ENCOUNTER → 2024-06-21 | Outpatient (CLI) | payer MEDICARE, SELFPAY ==
[2024-06-21 18:05] LABS: Anion Gap 13 (5-15); BUN 14 mg/dL (4-19); BUN/Creat Ratio 15.6 RATIO (10-20); Calcium,Total 9.8 mg/dL (7.6-11.0); Carbon Dioxide 23.2 mmol/L (21.0-32.0); Chloride 101 mmol/L (98-108); EST Glomerular Filtration Rate 88 (>60); Glucose 102 mg/dL (70-99); Potassium 3.9 mmol/L (3.3-5.1); Sodium Level 137 mmol/L (133-145)
== END | disposition home or self-care (01) ==
LOC: MTLAB 13:43
PROVIDERS: PCP Family Medicine; Referring Provider Family Medicine; Visit Provider Family Medicine
DX: E87.1 Hypo-osmolality and hyponatremia (principal)
CPT/HCPCS: 36415; 80048

== ENCOUNTER 2024-07-14 13:48 | Emergency (ER) | payer MEDICARE, SELFPAY ==
[2024-07-14 13:49] VITALS: BP 136/83; PULSE 95; RESP 18; TEMP 36.2; O2SAT 96
--- NOTE | 2024-07-14 14:14 | EX.ED.DYSGE1 ---
HPI <Dr. Guicho Omalley MD - Last Filed: 07/17/24 14:10> History of Present Illness Chief Complaint: Nausea/Vomiting Detail of Chief Complaint: Patient presents with nausea and dry heaves. Informant: patient Onset/Context/Timing Onset: Today Context: Sudden Onset Timing: Continuous (Continuous nausea with dry heaves) Quality: Nauseousness Location: GI, history of cyclic vomiting Current Severity: Severe Maximum Severity: Severe Worsened by: Nothing Relieved by: When I come to the emergency room and get the cocktail you guys have. Associated Symptoms Associated Symptoms: Thirst and dry mouth Narrative Narrative: Patient is a 74-year-old male. He has history of cyclic vomiting. Irritable bowel syndrome, hypothyroidism, COPD, peptic ulcer disease with GI bleed, basal cell carcinoma anterior chest wall. He states he took promethazine at home with no improvement. He denies fever, chills night sweats. He denies ocular, visual or auditory symptoms. He denies chest discomfort. Nuys shortness of breath. Patient was seen on June 07 by physician medical assistant ob gyn Sienna for cyclic vomiting. He was seen by Dr. Ruiz on May 28 for cyclic vomiting. He was seen on November 25 for cyclic vomiting by physician medical assistant ob gyn Emi. Prior similar symptoms: Yes Recent Illness/Hospitalization: Yes PFS <Dr. Guicho Omalley MD - Last Filed: 07/17/24 14:10> [facility] Medical History Strain of right psoas muscle Acute pain of right hip Fall Alcohol abuse Alcohol withdrawal Basal cell carcinoma of anterior chest Wears glasses Wears dentures Depression Anxiety Alcohol use Arthritis History of renal disease Back pain Injury of head and neck History of ulceration History of IBS History of diverticulitis Gastric reflux CPAP (continuous positive airway pressure) dependence Former smoker COPD (chronic obstructive pulmonary disease) Shortness of breath on exertion History of pain when walking History of edema History of stress test Encounter for screening for COVID-19 Chest wall contusion (~12/18/20) HTN (hypertension) Home Medications ?Medication ?Instructions ?Recorded ?Last Taken ?Type lisinopril 20 mg tablet 20 mg PO BID blood pressure 03/16/18 05/27/24 History pantoprazole 40 mg tablet,delayed 40 mg PO BID reflux 09/07/19 05/27/24 History release albuterol sulfate 2.5 mg/3 mL 2.5 mg inhalation Q6H PRN 05/18/23 Unknown History (0.083 %) solution for nebulization shortness of breath or wheezing fluvoxamine 100 mg tablet 100 mg PO QHS 05/18/23 05/27/24 History amlodipine 5 mg tablet 5 mg PO DAILY 05/24/23 05/27/24 History omeprazole 40 mg capsule,delayed 40 mg PO DAILY 12/30/23 05/27/24 History release ondansetron 4 mg disintegrating 4 mg PO Q8H PRN Nausea 04/22/24 Unknown History tablet promethazine 25 mg tablet 25 mg PO TID PRN PRN nausea 04/23/24 Unknown History acetaminophen 325 mg tablet 650 mg (2 x 325 mg) PO Q4H PRN PRN 04/27/24 Unknown Rx Fever, pain -11/16 #0 tabs calcium carbonate 500 mg (2.5 x 200 mg calcium (500 04/27/24 Unknown Rx mg)) PO TIDCM PRN DYSPEPSIA/INDIGESTION #0 tabs lorazepam 0.5 mg tablet 0.5 mg PO Q6H PRN PRN Anxiety #8 04/27/24 05/27/24 Rx tabs sennosides 8.6 mg-docusate sodium 1 tab PO DAILY #1 TAB 04/27/24 Unknown Rx 50 mg tablet (Stimulant Laxative Plus) doxepin 10 mg capsule 10 - 20 mg PO QHS PRN PRN insomnia 05/28/24 05/27/24 History ibuprofen 800 mg tablet 800 mg PO DAILY 05/28/24 05/27/24 History ondansetron 4 mg disintegrating 4 mg PO Q6H PRN nausea and 05/28/24 Unknown Rx tablet vomiting #10 tabs sodium chloride 1,000 mg soluble 1,000 mg PO DAILY 5 days #5 tabs 06/07/24 Unknown Rx tablet metoclopramide HCl 5 mg tablet 5 mg PO Q8H PRN nausea and 07/14/24 Unknown Rx (Reglan) vomiting 7 days #20 tabs Allergy/AdvReac Type Severity Reaction Status Date / Time amoxicillin Allergy doesnt Verified 07/14/24 13:49 rememeber fluoxetine (From Prozac) AdvReac Other Verified 07/14/24 13:49 Family History Mother Myocardial infarction Hypertension Father Cancer Hypertension Surgical History Hx of colonoscopy Hx of blepharoplasty Hx of esophagogastroduodenoscopy History of eye surgery Social History household members: none Smoking Status: Former smoker how long ago did patient quit smoking: quit 20 yr ago alcohol intake: current Alcohol type: hard liquor substance use type: does not use additional social history: personal hx of PEs ROS <Dr. Guicho Omalley MD - Last Filed: 07/17/24 14:10> ROS ED Constitutional Constitutional ED: Denies chills, fever(s), subjective or sweats Eyes Eyes: Denies blurry vision, change in vision or diplopia ENT ENT ED: Denies ear pain, rhinorrhea or sore throat Cardiovascular Cardiovascular: Denies chest pain or palpitations Respiratory/Chest Respiratory/Chest: Denies cough, dyspnea or dyspnea on exertion Gastrointestinal Gastrointestinal: Reports abdominal pain and nausea; Denies constipation, diarrhea, melena or vomiting Musculoskeletal Musculoskeletal: Denies arthralgias or myalgias Integumentary Denies rash Neurologic Neurologic: Denies headache(s) Hematologic/Lymphatic Hematologic/Lymphatic: Reports systems reviewed and no addt'l complaints, except as documented EXAM <Dr. Guicho Omalley MD - Last Filed: 07/17/24 14:10> Physical Exam Const Vital Signs: 07/14/24 13:49 07/14/24 15:00 07/14/24 15:48 Temperature 97.2 F L Temperature Source Temporal Pulse Rate 95 91 91 Respiratory Rate 18 28 H 27 H Blood Pressure 136/83 H 140/68 H 140/68 H Blood Pressure Mean 100 88 92 Pulse Ox 96 96 95 Oxygen Delivery Method Room Air Nasal Cannula Oxygen Flow Rate (L/min) 2 07/14/24 16:00 07/14/24 17:00 Temperature Temperature Source Pulse Rate 89 96 Respiratory Rate 25 H 24 H Blood Pressure 128/64 H 127/65 H Blood Pressure Mean 82 82 Pulse Ox 95 90 Oxygen Delivery Method Oxygen Flow Rate (L/min) Positive well nourished and well developed Constitutional Narrative: BMI is elevated. Patient appears ill but not toxic. General Appearance ED: well developed; Negative for pallor HEENT Reports dry mucous membranes HEENT Narrative: Patient has poor dentition. Ears normal. Nares patent. Posterior pharynx is normal. Mouth ED: Yes dry mucous membranes Mouth: dry mucous membranes Eyes PERRL and EOMs intact bilaterally General Eye ED: Negative for pale conjunctiva or scleral icterus Neck no lymphadenopathy, supple and no JVD Chest Wall inspection of chest normal and palpation of chest normal Resp normal respiratory effort and clear to auscultation bilaterally Cardio regular rate, regular rhythm, S1 normal heart sound, S2 normal heart sound and no murmurs GI normal to inspection, nondistended, normoactive bowel sounds, non-tender, hepatosplenomegaly and no masses; Negative for non-distended Inspection: abdominal distention Auscultation: hypoactive bowel sounds Palpation: soft Back/Spine no CVA tenderness Extremity Negative for normal to inspection General Extremety ED: Yes edema General Extremity: edema Neuro oriented x3 and CN's II-XII intact bilaterally Sensorium / Orientation: alert Psych mental status grossly normal Skin no rashes or lesions noted, no wounds and No skin turgor normal General Skin Exam: Negative for jaundice or pallor <Dr. Mingo Haddad DO - Last Filed: 07/14/24 18:36> Physical Exam Const Vital Signs: 07/14/24 13:49 07/14/24 15:00 07/14/24 15:48 Temperature 97.2 F L Temperature Source Temporal Pulse Rate 95 91 91 Respiratory Rate 18 28 H 27 H Blood Pressure 136/83 H 140/68 H 140/68 H Blood Pressure Mean 100 88 92 Pulse Ox 96 96 95 Oxygen Delivery Method Room Air Nasal Cannula Oxygen Flow Rate (L/min) 2 07/14/24 16:00 07/14/24 17:00 Temperature Temperature Source Pulse Rate 89 96 Respiratory Rate 25 H 24 H Blood Pressure 128/64 H 127/65 H Blood Pressure Mean 82 82 Pulse Ox 95 90 Oxygen Delivery Method Oxygen Flow Rate (L/min) [facility] <Dr. Guicho Omalley MD - Last Filed: 07/17/24 14:10> [facility] Narrative Medical decision making narrative: Patient presents with cyclic vomiting. Patient been seen several times since beginning of May. Patient was treated with cyclic vomiting cocktail of Ativan, Zofran initially. He will receive also Benadryl Thorazine mixture. Will reevaluate after he is fluids and meds have been administered. As previously noted reviewed prior records. He does deny cannabis use. Lab Data Labs: Laboratory Results - last 24 hr 07/14/24 16:20 WBC 9.5 RBC 4.12 L Hgb 13.2 Hct 37.2 L MCV 90.3 MCH 32.0 MCHC 35.5 RDW Std Deviation 42.5 RDW Coeff of [place] 12.9 Plt Count 221 MPV 9.9 Immature Gran % (Auto) 0.400 Neut % (Auto) 85.0 H Lymph % (Auto) 8.9 L Sully % (Auto) 5.2 Eos % (Auto) 0.1 Baso % (Auto) 0.4 Absolute Neuts (auto) 8.0 H Absolute Lymphs (auto) 0.84 Nucleated RBC % 0 Sodium 140 Potassium 4.0 Chloride 101 Carbon Dioxide 27.0 Anion Gap 12 BUN 10 Creatinine 0.74 Est GFR (MDRD) Non-Af 94 BUN/Creatinine Ratio 14.0 Glucose 125 H Lactic Acid 1.4 Calcium 8.9 Total Bilirubin 0.41 AST 26 ALT 14 Alkaline Phosphatase 89 Total Protein 6.9 Albumin 3.8 Globulin 3.1 Albumin/Globulin Ratio 1.2 Treatment and Re-Evaluation :: Patient was reassessed at 1515. He is drowsy from the Benadryl and Compazine. Patient's symptoms have improved. Plan is to discharge once he is more alert. Comments:: The afternoon physician was made aware. Plan is to discharge home once he is awake and able to ambulate out of the emergency department. <Dr. Mingo Haddad, DO - Last Filed: 07/14/24 18:36> [facility] Lab Data Labs: Laboratory Results - last 24 hr 07/14/24 16:20 WBC 9.5 RBC 4.12 L Hgb 13.2 Hct 37.2 L MCV 90.3 MCH 32.0 MCHC 35.5 RDW Std Deviation 42.5 RDW Coeff of [place] 12.9 Plt Count 221 MPV 9.9 Immature Gran % (Auto) 0.400 Neut % (Auto) 85.0 H Lymph % (Auto) 8.9 L Sully % (Auto) 5.2 Eos % (Auto) 0.1 Baso % (Auto) 0.4 Absolute Neuts (auto) 8.0 H Absolute Lymphs (auto) 0.84 Nucleated RBC % 0 Sodium 140 Potassium 4.0 Chloride 101 Carbon Dioxide 27.0 Anion Gap 12 BUN 10 Creatinine 0.74 Est GFR (MDRD) Non-Af 94 BUN/Creatinine Ratio 14.0 Glucose 125 H Lactic Acid 1.4 Calcium 8.9 Total Bilirubin 0.41 AST 26 ALT 14 Alkaline Phosphatase 89 Total Protein 6.9 Albumin 3.8 Globulin 3.1 Albumin/Globulin Ratio 1.2 Treatment and Re-Evaluation Comments:: The afternoon physician was made aware. Plan is to discharge home once he is awake and able to ambulate out of the emergency department. Patient was turned over to me by Dr. [email or web address] Brief history: 74-year-old male history of cyclic vomiting with nausea vomiting. My exam patient denied abdominal pain Physical exam: Patient was hemodynamically stable, afebrile and nontoxic-appearing. Saturating well on room air. He appeared slightly drowsy but was ambulatory. He displayed capacity. His abdomen soft and nontender with no peritoneal signs. He had symmetric pulses in all 4 extremities Labs and images reviewed (if obtained): MDM/plan: Given mild episodes of vomiting and multiple antiemetics I did obtain EKG and basic labs. EKG showed normal sinus rhythm, slightly prolonged QTc at 516, no STEMI. Labs were grossly unremarkable for signs of systemic inflammation, anemia, severe electrolyte disturbance, dehydration, acute kidney injury or liver pathology. Repeat abdominal exam remained benign. Patient was given haloperidol as a additional antiemetic. He is able to tolerate p.o. He is appropriate for discharge home with prescription for Reglan in lieu of Phenergan. Impression: 1. Cyclic vomiting syndrome Disposition: Discharged home Discharge Plan Triage Chief Complaint: Nausea/Vomiting ED Provider: Guicho Omalley Dx/Rx/DC Orders Clinical Impression: Intractable cyclical vomiting with nausea, Hypothyroidism, Irritable bowel syndrome, GERD (gastroesophageal reflux disease), Hypertension Instructions: ED Cyclic Vomiting Syndrome Prescriptions: New metoclopramide HCl [Reglan] 5 mg tablet 5 mg PO Q8H PRN (Reason: nausea and vomiting) 7 Days Qty: 20 0RF No Action amlodipine 5 mg tablet 5 mg PO DAILY omeprazole 40 mg capsule,delayed release(DR/EC) 40 mg PO DAILY lisinopril 20 MG tablet 20 mg PO BID pantoprazole 40 MG tablet 40 mg PO BID sodium chloride 1,000 mg tablet,soluble 1,000 mg PO DAILY 5 Days Qty: 5 0RF albuterol sulfate 2.5 mg /3 mL (0.083 %) solution for nebulization 2.5 mg inhalation Q6H PRN (Reason: shortness of breath or wheezing) fluvoxamine 100 mg tablet 100 mg PO QHS ondansetron 4 mg tablet,disintegrating 4 mg PO Q8H PRN (Reason: Nausea) promethazine 25 mg tablet 25 mg PO TID PRN PRN (Reason: nausea) acetaminophen 325 mg Tablet 650 mg PO Q4H PRN PRN (Reason: Fever, pain 1-11/16) Qty: 0 0RF lorazepam 0.5 mg Tablet 0.5 mg PO Q6H PRN PRN (Reason: Anxiety) Qty: 8 0RF calcium carbonate 200 mg calcium (500 mg) Tablet,Chewable 500 mg PO TIDCM PRN (Reason: DYSPEPSIA/INDIGESTION) Qty: 0 0RF sennosides-docusate sodium [Stimulant Laxative Plus] 8.6-50 mg Tablet 1 tab PO DAILY Qty: 1 0RF ibuprofen 800 mg tablet 800 mg PO DAILY Rx Instructions: 800 mg orally; family states pt has been taking more than 4xd doxepin 10 mg capsule 10 - 20 mg PO QHS PRN PRN (Reason: insomnia) ondansetron 4 mg tablet,disintegrating 4 mg PO Q6H PRN (Reason: nausea and vomiting) Qty: 10 0RF Primary Care Provider: Alfred Bailey Referrals: Friend,DO Mumtaz [Med Staff - Active Staff] - Activity Restrictions/Additional Instructions: Thank you for trusting us with your care today! Please take Reglan and instead of Phenergan for nausea control at home. Please return to the emergency department if your symptoms change or worsen. Please follow with your primary care physician for further outpatient evaluation and management. Print Language: Mongolian Disposition Disposition: Home, Self Care Discharge Date/Time: 07/14/24 19:31
--- OUTSIDE RECORDS SUMMARY | 2024-07-14 14:21 | XMS RPT_ITS | CCD ---
Author Organization [facility] CliniSyky Care Team Providers Care Leather Stamper Name Role Phone POOL MISTRY, DR KI Nelson JR Primary Care Physician ABHAY MISTRY, DR WILLIE WHITE Attending Lawrence LANZA MD, DR KI Nelson JR Primary Care Milena Louis Attending Unavailable Lynn, Alfred Primary Care Unavailable LynnAlfred willis Referring Unavailable Vishnu Doyle Attending Unavailable Lynn, Alfred Primary Care Unavailable Lynn, Alfred Referring Unavailable Vishnu Doyle Referring Unavailable Lynn, Alfred Primary Care Unavailable Vishnu Doyle Attending Unavailable Lynn, Alfred Primary Care Unavailable Lynn, Alfred Referring Unavailable Bandar LAST TURNER, Camila Lyn Attending Unavailabl e LynnAlfred Referring Unavailable LynnAlfred rodriguez Attending Unavailable Lynn, Alfred Primary Care Unavailable David Cespedes Consulting Unavailable David Cespedes Admitting Unavailable Lynn, Alfred Primary Care Unavailable Alfred Grijalva Attending Unavailable [place] Rush Consulting Unavailable Romina Ballard Attending Unavailable Lynn, Alfred Primary Care Unavailable Romina Ballard Referring Unavailable Romina Ballard Attending Unavailable Lynn, Alfred Primary Care Unavailable Milena Smith Attending Unavailable Lynn, Alfred Primary Care Unavailable Lynn, Alfred Referring Unavailable Torey Multani Attending Unavailable Lynn, Alfred Primary Care Unavailable Brock Garcia Attending Unavailabl e Lynn, Alfred Primary Care Unavailable Brock Garcia Referring Unavailabl e Lynn, Alfred Primary Care Unavailable Chino Jaimes Attending Unavailable Lynn, Alfred Primary Care Unavailable LynnAlfred willis Attending Unavailable Lynn, Alfred Primary Care Unavailable Alfred Bailey Attending Unavailable Alfred Bailey Referring Unavailable Lynn, Alfred Primary Care Unavailable Willie Blank Attending Unavailable Willie Blank Referring Unavailable Lynn, Alfred Primary Care Unavailable Lynn, Alfred Referring Unavailable LynnAlfred Attending Unavailable Lynn, Alfred Primary Care Unavailable Dossi, Milena Attending Unavailable Lynn, Alfred Referring Unavailable Dossi, Milena Attending Unavailable Lynn, Alfred Primary Care Unavailable Lynn, Alfred Referring Unavailable Dossi, Milena Attending Unavailable Lynn, Alfred Primary Care Unavailable Lynn, Alfred Referring Unavailable Dossi, Milena Attending Unavailable Lynn, Alfred Primary Care Unavailable Lynn, Alfred Referring Unavailable Lynn, Alfred Primary Care Unavailable Vick Ruiz Attending Unavailable Lynn, Alfred Primary Care Unavailable Bogdan Grover Attending Unavailable David Cespedes Admitting Unavailable David Cespedes Consulting Unavailable Lynn, Alfred Primary Care Unavailable Tereletszoie, Alfred Attending Unavailable Tereletszoie, Alfred Consulting Unavailable Adri, [place] Attending Unavailable Valentine, Alfred Referring Unavailable [place] Rush Consulting Unavailable David Cespedes Attending Unavailable MaxtonAnnie Referring Unavailable Lynn, Alfred Primary Care Unavailable Maxton, Annie Attending Unavailable Siska, Vishnu Attending Unavailable SiskaVishnu Referring Unavailable Lynn, Alfred Primary Care Unavailable Lynn, Alfred Primary Care Unavailable Vick Ruiz Attending Unavailable Allergies Allergy Classification Reported Allergen(s) Allergy Type Date of Onset Reaction(s) Facility (1 source) Amoxicillin; Translations: [amoxicillin] Drug Allergy [facility] (1 source) Amoxicillin Drug Allergy 07-10-2024 [facility] (1 source) FLUoxetine Drug Allergy 07-10-2024 [facility] Medications Current Medications Medication Drug Class(es) Dates [...] tablet (1 source) HMG-CoA Reductase Inhibitor Start: 4 simvastatin 20 mg oral tablet (NF) [...] Refill(s) Start Date: 11/05/13 Status: Ordered Problems Active Problems Problem Classification Problem Date Documented Da te Episodic/Chronic Anxiety disorders (1 source) Anxiety 10-31-2013 Chronic Cancer of kidney and renal pelvis (1 source) Malignant neoplasm of right kidney, except renal pelvis; Translations: [Malignant neoplasm of right kidney, except renal pelvis] Onset: 4 Chronic Chronic obstructive pulmonary disease and bronchiectasis (1 source) Chronic obstructive lung disease Onset: 4 11-02-2013 Chronic Chronic obstructive pulmonary disease and bronchiectasis (1 source) Bronchitis 10-28-2013 Episodic Coagulation and hemorrhagic disorders (1 source) Thrombocytopenia, unspecified; Translations: [Thrombocytopenia, unspecified] Onset: 5 Chronic Disorders of lipid metabolism (1 source) Hyperlipidemia 08-28-2013 Chronic E Codes: Fall (1 source) Unspecified fall, initial encounter; Translations: [Unspecified fall, initial encounter] Onset: 5 Episodic Esophageal disorders (1 source) Gastroesophageal reflux disease 08-28-2013 Chronic Essential hypertension (1 source) Hypertensive disorder 08-28-2013 Chronic Fluid and electrolyte disorders (1 source) Hypo-osmolality and hyponatremia; Translations: [Hypo-osmolality and hyponatremia] Onset: 5 Episodic Nausea and vomiting (2 sources) Nausea; Translations: [Nausea with vomiting, unspecified] Onset: 5 08-28-2013 Episodic Other bone disease and musculoskeletal deformities (1 source) Segmental and somatic dysfunction of cervical region; Translations: [Segmental and somatic dysfunction of cervical region] Onset: 5 Episodic Other bone disease and musculoskeletal deformities (1 source) Segmental and somatic dysfunction of thoracic region; Translations: [Segmental and somatic dysfunction of thoracic region] Onset: 5 Episodic Other bone disease and musculoskeletal deformities (1 source) Segmental and somatic dysfunction of lumbar region; Translations: [Segmental and somatic dysfunction of lumbar region] Onset: 5 Episodic Other bone disease and musculoskeletal deformities (1 source) Segmental and somatic dysfunction of pelvic region; Translations: [Segmental and somatic dysfunction of pelvic region] Onset: 5 Episodic Other gastrointestinal disorders (1 source) Irritable bowel syndrome 08-28-2013 Chronic Other liver diseases (1 source) Fatty (change of) liver, not elsewhere classified; Translations: [Fatty (change of) liver, not elsewhere classified] Onset: 4 Chronic Other non-traumatic joint disorders (1 source) Pain in right hip; Translations: [Pain in right hip] Onset: 5 Episodic Other nutritional; endocrine; and metabolic disorders (1 source) Obesity 08-28-2013 Chronic Pneumonia (except that caused by tuberculosis or sexually transmitted disease) (1 source) Pneumonia 10-31-2013 Episodic Residual codes; unclassified (1 source) Sleep apnea 08-28-2013 Chronic Comment on above: noncompliant with cp ap Spondylosis; intervertebral disc disorders; other back problems (1 source) Other intervertebral disc degeneration, lumbar region; Translations: [Other intervertebral disc degeneration, lumbar region] Onset: 5 Chronic Spondylosis; intervertebral disc disorders; other back problems (2 sources) Radiculopathy, lumbar region; Translations: [Cervicalgia] Onset: 4 Episodic Sprains and strains (2 sources) Strain of muscle, fascia and tendon of right hip, initial encounter; Translations: [Strain of muscle, fascia and tendon of right hip, initial encounter] Onset: 5 Episodic Unclassified (1 source) Other intervertebral disc degeneration, lumbar region with discogenic back pain only; Translations: [Other intervertebral disc degeneration, lumbar region with discogenic back pain only] Onset: 5 Unclassified (1 source) Alcohol use, unspecified with withdrawal, unspecified; Translations: [Alcohol use, unspecified with withdrawal, unspecified] Onset: 5 Unclassified (1 source) Low back pain, unspecified; Translations: [Low back pain, unspecified] Onset: 4 Past or Other Problems Problem Classification Problem Date Documented Da te Episodic/Chronic Other gastrointestinal disorders (1 source) Diarrhea, unspecified; Translations: [Diarrhea, unspecified] Onset: 11-21-2023 Episodic Other non-epithelial cancer of skin (2 sources) Basal cell carcinoma of skin, unspecified; Translations: [Basal cell carcinoma of skin of other part of trunk] Onset: 02-23-2024 Episodic Other screening for suspected conditions (not mental disorders or infectious disease) (1 source) Encounter for screening for malignant neoplasm of prostate; Translations: [Encounter for screening for malignant neoplasm of prostate] Onset: 11-16-2023 Episodic Results Test Name Value Interpretation Reference Range [facility] Chiropractic Reporton 2024 Chiropractic Report Normal [facility] Chiropractic Reporton 2024 Chiropractic Report Normal [facility] Basic Metabolic Profile (BMP )on 06-21-2024 BUN/CRE 15.6 RATIO Normal 10-20 [facility] Comment on above: Performed By: #### L 500.2500 ####[facility] [address] [place], [address] Calcium [Mass/Vol] 9.8 mg/dL Normal 7.6-11.0 [facility] Comment on above: Performed By: #### L 500.2500 ####[facility] [address] [place], [address] Chloride [Moles/Vol] 101 mmol/L Normal 98-108 [facility] Comment on above: Performed By: #### L 500.2500 ####[facility] [address] [place], [address] CO2 [Moles/Vol] 23.2 mmol/L Normal 21.0-32.0 [facility] Comment on above: Performed By: #### L 500.2500 ####[facility] [address] [place], [address] Creatinine [Mass/Vol] 0.90 mg/dL Normal 0.70-1.20 [facility] Comment on above: Performed By: #### L 500.2500 ####[facility] [address] [place], [address] GAP 13 Normal 5-15 [facility] Comment on above: Performed By: #### L 500.2500 ####[facility] [address] [place], [address] GFR/1.73 sq M.predicted among non-blacks MDRD (S/P/Bld) [Vol rate/Area] 88 mL/min/{1.73_m2} Normal >60 [facility] Comment on above: Result Comment: mL/m in/1.73m2 CKD-EPI Creatinine Equation (2020) Performed By: #### L 500.2500 ####[facility] [address] [place], [address] Glucose [Mass/Vol] 102 mg/dL High 70-99 [facility] Comment on above: Performed By: #### L 500.2500 ####[facility] [address] [place], [address] Potassium [Moles/Vol] 3.9 mmol/L Normal 3.3-5.1 [facility] Comment on above: Performed By: #### L 500.2500 ####[facility] [address] [place], [address] Sodium [Moles/Vol] 137 mmol/L Normal 133-145 [facility] Comment on above: Performed By: #### L 500.2500 ####[facility] [address] [place], [address] Urea nitrogen [Mass/Vol] 14 mg/dL Normal 4-19 [facility] Comment on above: Performed By: #### L 500.2500 ####[facility] [address] [place], [address] Basic Metabolic Profile (BMP )on 06-07-2024 BUN/CRE 17.6 RATIO Normal 10-20 [facility] Comment on above: Performed By: #### L 500.2500 ####[facility] [address] [place], [address] Calcium [Mass/Vol] 8.9 mg/dL Normal 7.6-11.0 [facility] Comment on above: Performed By: #### L 500.2500 ####[facility] [address] [place], [address] Chloride [Moles/Vol] 93 mmol/L Low 98-108 [facility] Comment on above: Performed By: #### L 500.2500 ####[facility] [address] [place], [address] CO2 [Moles/Vol] 21.2 mmol/L Normal 21.0-32.0 [facility] Comment on above: Performed By: #### L 500.2500 ####[facility] [address] [place], [address] Creatinine [Mass/Vol] 0.63 mg/dL Low 0.70-1.20 [facility] Comment on above: Performed By: #### L 500.2500 ####[facility] [address] [place], [address] ECRCL 95.23 ml/min Normal 50-250 [facility] Comment on above: Performed By: #### L 500.2500 ####[facility] [address] [place], [address] GAP 13 Normal 5-15 [facility] Comment on above: Performed By: #### L 500.2500 ####[facility] [address] [place], [address] GFR/1.73 sq M.predicted among non-blacks MDRD (S/P/Bld) [Vol rate/Area] 99 mL/min/{1.73_m2} Normal >60 [facility] Comment on above: Result Comment: mL/m in/1.73m2 CKD-EPI Creatinine Equation (2020) Performed By: #### L 500.2500 ####[facility] [address] [place], [address] Glucose [Mass/Vol] 119 mg/dL High 70-99 [facility] Comment on above: Performed By: #### L 500.2500 ####[facility] [address] [place], [address] Potassium [Moles/Vol] 3.8 mmol/L Normal 3.3-5.1 [facility] Comment on above: Performed By: #### L 500.2500 ####[facility] [address] [place], [address] Sodium [Moles/Vol] 128 mmol/L Low 133-145 [facility] Comment on above: Performed By: #### L 500.2500 ####[facility] [address] [place], [address] Urea nitrogen [Mass/Vol] 11 mg/dL Normal 4-19 [facility] Comment on above: Performed By: #### L 500.2500 ####[facility] [address] [place], [address] BUN/CRE 18.6 RATIO Normal 10-20 [facility] Comment on above: Performed By: #### L 100.0100, L500.2500 ####[facility] [address] [place], [address] Calcium [Mass/Vol] 9.3 mg/dL Normal 7.6-11.0 [facility] Comment on above: Performed By: #### L 100.0100, L500.2500 ####[facility] [address] [place], [address] Chloride [Moles/Vol] 91 mmol/L Low 98-108 [facility] Comment on above: Performed By: #### L 100.0100, L500.2500 ####[facility] [address] [place], [address] CO2 [Moles/Vol] 21.8 mmol/L Normal 21.0-32.0 [facility] Comment on above: Performed By: #### L 100.0100, L500.2500 ####[facility] [address] [place], [address] Creatinine [Mass/Vol] 0.68 mg/dL Low 0.70-1.20 [facility] Comment on above: Performed By: #### L 100.0100, L500.2500 ####[facility] [address] [place], [address] ECRCL 95.23 ml/min Normal 50-250 [facility] Comment on above: Performed By: #### L 100.0100, L500.2500 ####[facility] [address] [place], [address] GAP 14 Normal 5-15 [facility] Comment on above: Performed By: #### L 100.0100, L500.2500 ####[facility] [address] [place], [address] GFR/1.73 sq M.predicted among non-blacks MDRD (S/P/Bld) [Vol rate/Area] 97 mL/min/{1.73_m2} Normal >60 [facility] Comment on above: Result Comment: mL/m in/1.73m2 CKD-EPI Creatinine Equation (2020) Performed By: #### L 100.0100, L500.2500 ####[facility] [address] [place], [address] Glucose [Mass/Vol] 116 mg/dL High 70-99 [facility] Comment on above: Performed By: #### L 100.0100, L500.2500 ####[facility] [address] [place], [address] Potassium [Moles/Vol] 4.0 mmol/L Normal 3.3-5.1 [facility] Comment on above: Result Comment: Hemo lysis present, Results??could be affected.?? Performed By: #### L 100.0100, L500.2500 ####[facility] [address] [place], [address] Sodium [Moles/Vol] 127 mmol/L Low 133-145 [facility] Comment on above: Performed By: #### L 100.0100, L500.2500 ####[facility] [address] [place], [address] Urea nitrogen [Mass/Vol] 13 mg/dL Normal 4-19 [facility] Comment on above: Performed By: #### L 100.0100, L500.2500 ####[facility] [address] [place], [address] CBC W/Diff, Automatedon 05-0 -2024 Absolute Lymph 1.01 X10 3/uL Normal 0.83-4.51 [facility] Comment on above: Performed By: #### L 100.0100, L500.2500 ####[facility] [address] [place], [address] Absolute Neut 12.6 X10 3/uL High 2.0-7.7 [facility] Comment on above: Performed By: #### L 100.0100, L500.2500 ####[facility] [address] [place], [address] Basophils/100 WBC (Bld) 0.2 % Normal 0-1 [facility] Comment on above: Performed By: #### L 100.0100, L500.2500 ####[facility] [address] [place], [address] Eosinophils/100 WBC (Bld) 0.0 % Normal 0-5 [facility] Comment on above: Performed By: #### L 100.0100, L500.2500 ####[facility] [address] [place], [address] Erythrocyte distribution width (RBC) [Ratio] 12.9 % Normal 11.6-14.6 [facility] Comment on above: Performed By: #### L 100.0100, L500.2500 ####[facility] [address] [place], [address] Hematocrit (Bld) [Volume fraction] 39.2 % Low 40-54 [facility] Comment on above: Performed By: #### L 100.0100, L500.2500 ####[facility] [address] [place], [address] Hemoglobin (Bld) [Mass/Vol] 13.8 g/dL Normal 13.0-16.5 [facility] Comment on above: Performed By: #### L 100.0100, L500.2500 ####[facility] [address] [place], [address] IG% 0.400 Normal 0.0-0.9 [facility] Comment on above: Result Comment: IG% - Immature Granulocytes (promyelocytes, myelocytes andmetamyelocytes) > 1% indicates that a LEFT SHIFT is Present. Performed By: #### L 100.0100, L500.2500 ####[facility] [address] [place], [address] Lymphocytes/100 WBC (Bld) 7.0 % Low 19-41 [facility] Comment on above: Performed By: #### L 100.0100, L500.2500 ####[facility] [address] [place], [address] MCH (RBC) [Entitic mass] 32.1 pg High 27.0-32.0 [facility] Comment on above: Performed By: #### L 100.0100, L500.2500 ####[facility] [address] [place], [address] MCHC (RBC) [Mass/Vol] 35.2 g/dL Normal 32-36 [facility] Comment on above: Performed By: #### L 100.0100, L500.2500 ####[facility] [address] [place], [address] MCV (RBC) [Entitic vol] 91.2 fL Normal 80-94 [facility] Comment on above: Performed By: #### L 100.0100, L500.2500 ####[facility] [address] [place], [address] Monocytes/100 WBC (Bld) 4.5 % Normal 0-10 [facility] Comment on above: Performed By: #### L 100.0100, L500.2500 ####[facility] [address] [place], [address] Neutrophils/100 WBC (Bld) 87.9 % High 47-70 [facility] Comment on above: Performed By: #### L 100.0100, L500.2500 ####[facility] [address] [place], [address] Nucleated RBC (Bld) [#/Vol] 0 10*3/uL Normal 0-5 [facility] Comment on above: Performed By: #### L 100.0100, L500.2500 ####[facility] [address] [place], [address] Platelet mean volume (Bld) [Entitic vol] 9.6 fL Normal 6.2-12.0 [facility] Comment on above: Performed By: #### L 100.0100, L500.2500 ####[facility] [address] [place], [address] Platelets (Bld) [#/Vol] 306 10*3/uL Normal 150-450 [facility] Comment on above: Performed By: #### L 100.0100, L500.2500 ####[facility] [address] [place], [address] RBC (Bld) [#/Vol] 4.30 10*6/uL Low 4.6-6.2 [facility] Comment on above: Performed By: #### L 100.0100, L500.2500 ####[facility] [address] [place], [address] RDW SD 43.0 fl Normal 35.1-43.9 [facility] Comment on above: Performed By: #### L 100.0100, L500.2500 ####[facility] [address] [place], [address] WBC (Bld) [#/Vol] 14.3 10*3/uL High 4.4-11.0 [facility] Comment on above: Performed By: #### L 100.0100, L500.2500 ####[facility] [address] [place], [address] Emergency Department Summary on 06-07-2024 Emergency Department Summary Normal [facility] Lipaseon 06-07-2024 Lipase [Catalytic activity/Vol] 35 U/L Normal 13-75 [facility] Comment on above: Result Comment: Plea se note:LIPASE revised reference range effective 22.New Lipase methodology. Expected to produce lower valuesthan the previous assay method.NEW Reference Range: 13 - 75 U/L Performed By: #### L 501.2450, L500.3400 ####[facility] [address] [place], [address] Liver Profileon 06-07-2024 Albumin [Mass/Vol] 3.9 g/dL Normal 3.4-4.8 [facility] Comment on above: Performed By: #### L 501.2450, L500.3400 ####[facility] [address] [place], [address] ALK PHOS 89 U/L Normal 40-129 [facility] Comment on above: Performed By: #### L 501.2450, L500.3400 ####[facility] [address] [place], [address] ALT [Catalytic activity/Vol] 21 U/L Normal <=46 [facility] Comment on above: Performed By: #### L 501.2450, L500.3400 ####[facility] [address] [place], [address] AST [Catalytic activity/Vol] 26 U/L Normal <=37 [facility] Comment on above: Result Comment: Hemo lysis present, Results??could be affected.?? Performed By: #### L 501.2450, L500.3400 ####[facility] [address] [place], [address] Bilirubin [Mass/Vol] 0.49 mg/dL Normal 0.00-1.30 [facility] Comment on above: Performed By: #### L 501.2450, L500.3400 ####[facility] [address] [place], [address] Bilirubin.direct [Mass/Vol] 0.22 mg/dL Normal 0.00-0.30 [facility] Comment on above: Result Comment: Hemo lysis present, Results??could be affected.?? Performed By: #### L 501.2450, L500.3400 ####[facility] [address] [place], [address] Globulin (S) [Mass/Vol] 3.6 g/dL Normal 2.2-4.2 [facility] Comment on above: Performed By: #### L 501.2450, L500.3400 ####[facility] [address] [place], [address] T PROT 7.5 g/dL Normal 5.9-8.4 [facility] Comment on above: Performed By: #### L 501.2450, L500.3400 ####[facility] [address] [place], [address] Urinalysis, Completeon 06-07 CAST,HYALINE 0-5 SEEN Normal 0-5 [facility] Comment on above: Order Comment: COLLE CTOR TO SPECIFY Performed By: #### L 400.0001 ####[facility] [address] [place], [address] RBC 0-5 SEEN Normal 0-5 [facility] Comment on above: Order Comment: COLLE CTOR TO SPECIFY Performed By: #### L 400.0001 ####[facility] [address] [place], [address] WBC 0-5 SEEN Normal 0-5 [facility] Comment on above: Order Comment: COLLE CTOR TO SPECIFY Performed By: #### L 400.0001 ####[facility] [address] [place], [address] BACTERIA 0 SEEN Normal None Seen [facility] Comment on above: Order Comment: COLLE CTOR TO SPECIFY Performed By: #### L 400.0001 ####[facility] [address] [place] [facility], [address] EPI,SQUAMOUS 0 SEEN Normal 0-5 [facility] Comment on above: Order Comment: GEORGE LAWSONOR TO SPECIFY Performed By: #### L 400.0001 ####[facility] [address] [place], [address] Mucus Ql (Urine sed) 0 SEEN Normal [facility] Comment on above: Order Comment: GEORGE CTOR TO SPECIFY Performed By: #### L 400.0001 ####[facility] [address] [place], [address] Basic Metabolic Profile (BMP )on 05-28-2024 BUN/CRE 21.0 RATIO High 10- [facility] Comment on above: Performed By: #### L 500.2500, L100.0100 ####[facility] [address] [place], [address] Calcium [Mass/Vol] 9.8 mg/dL Normal 7.6-11.0 [facility] Comment on above: Performed By: #### L 500.2500, L100.0100 ####[facility] [address] [place], [address] Chloride [Moles/Vol] 91 mmol/L Low 98-108 [facility] Comment on above: Performed By: #### L 500.2500, L100.0100 ####[facility] [address] [place], [address] CO2 [Moles/Vol] 26.3 mmol/L Normal 21.0-32.0 [facility] Comment on above: Performed By: #### L 500.2500, L100.0100 ####[facility] [address] [place], [address] Creatinine [Mass/Vol] 0.85 mg/dL Normal 0.70-1.20 [facility] Comment on above: Performed By: #### L 500.2500, L100.0100 ####[facility] [address] [place], [address] ECRCL 88.64 ml/min Normal 50-250 [facility] Comment on above: Performed By: #### L 500.2500, L100.0100 ####[facility] [address] [place], [address] GAP 11 Normal 5-15 [facility] Comment on above: Performed By: #### L 500.2500, L100.0100 ####[facility] [address] [place], [address] GFR/1.73 sq M.predicted among non-blacks MDRD (S/P/Bld) [Vol rate/Area] 90 mL/min/{1.73_m2} Normal >60 [facility] Comment on above: Result Comment: mL/m in/1.73m2 CKD-EPI Creatinine Equation (2020) Performed By: #### L 500.2500, L100.0100 ####[facility] [address] [place], [address] Glucose [Mass/Vol] 114 mg/dL High 70-99 [facility] Comment on above: Performed By: #### L 500.2500, L100.0100 ####[facility] [address] [place], [address] Potassium [Moles/Vol] 3.9 mmol/L Normal 3.3-5.1 [facility] Comment on above: Performed By: #### L 500.2500, L100.0100 ####[facility] [address] [place], [address] Sodium [Moles/Vol] 129 mmol/L Low 133-145 [facility] Comment on above: Performed By: #### L 500.2500, L100.0100 ####[facility] [address] [place], [address] Urea nitrogen [Mass/Vol] 18 mg/dL Normal 4-19 [facility] Comment on above: Performed By: #### L 500.2500, L100.0100 ####[facility] [address] [place], [address] CBC W/Diff, Automatedon - Absolute Lymph 1.70 X10 3/uL Normal 0.83-4.51 [facility] Comment on above: Performed By: #### L 500.2500, L100.0100 ####[facility] [address] [place], [address] Absolute Neut 9.5 X10 3/uL High 2.0-7.7 [facility] Comment on above: Performed By: #### L 500.2500, L100.0100 ####[facility] [address] [place], [address] Basophils/100 WBC (Bld) 0.4 % Normal 0-1 [facility] Comment on above: Performed By: #### L 500.2500, L100.0100 ####[facility] [address] [place], [address] Eosinophils/100 WBC (Bld) 0.3 % Normal 0-5 [facility] Comment on above: Performed By: #### L 500.2500, L100.0100 ####[facility] [address] [place], [address] Erythrocyte distribution width (RBC) [Ratio] 12.9 % Normal 11.6-14.6 [facility] Comment on above: Performed By: #### L 500.2500, L100.0100 ####[facility] [address] [place], [address] Hematocrit (Bld) [Volume fraction] 41.7 % Normal 40-54 [facility] Comment on above: Performed By: #### L 500.2500, L100.0100 ####[facility] [address] [place], [address] Hemoglobin (Bld) [Mass/Vol] 14.8 g/dL Normal 13.0-16.5 [facility] Comment on above: Performed By: #### L 500.2500, L100.0100 ####[facility] [address] [place], [address] IG% 0.500 Normal 0.0-0.9 [facility] Comment on above: Result Comment: IG% - Immature Granulocytes (promyelocytes, myelocytes andmetamyelocytes) > 1% indicates that a LEFT SHIFT is Present. Performed By: #### L 500.2500, L100.0100 ####[facility] [address] [place], [address] Lymphocytes/100 WBC (Bld) 13.7 % Low 19-41 [facility] Comment on above: Performed By: #### L 500.2500, L100.0100 ####[facility] [address] [place], [address] MCH (RBC) [Entitic mass] 32.3 pg High 27.0-32.0 [facility] Comment on above: Performed By: #### L 500.2500, L100.0100 ####[facility] [address] [place], [address] MCHC (RBC) [Mass/Vol] 35.5 g/dL Normal 32-36 [facility] Comment on above: Performed By: #### L 500.2500, L100.0100 ####[facility] [address] [place], [address] MCV (RBC) [Entitic vol] 91.0 fL Normal 80-94 [facility] Comment on above: Performed By: #### L 500.2500, L100.0100 ####[facility] [address] [place], [address] Monocytes/100 WBC (Bld) 8.9 % Normal 0-10 [facility] Comment on above: Performed By: #### L 500.2500, L100.0100 ####[facility] [address] [place], [address] Neutrophils/100 WBC (Bld) 76.2 % High 47-70 [facility] Comment on above: Performed By: #### L 500.2500, L100.0100 ####[facility] [address] [place], [address] Nucleated RBC (Bld) [#/Vol] 0 10*3/uL Normal 0-5 [facility] Comment on above: Performed By: #### L 500.2500, L100.0100 ####[facility] [address] [place], [address] Platelet mean volume (Bld) [Entitic vol] 9.5 fL Normal 6.2-12.0 [facility] Comment on above: Performed By: #### L 500.2500, L100.0100 ####[facility] [address] [place], [address] Platelets (Bld) [#/Vol] 316 10*3/uL Normal 150-450 [facility] Comment on above: Performed By: #### L 500.2500, L100.0100 ####[facility] [address] [place], [address] RBC (Bld) [#/Vol] 4.58 10*6/uL Low 4.6-6.2 [facility] Comment on above: Performed By: #### L 500.2500, L100.0100 ####[facility] [address] [place], [address] RDW SD 42.3 fl Normal 35.1-43.9 [facility] Comment on above: Performed By: #### L 500.2500, L100.0100 ####[facility] [address] [place], [address] WBC (Bld) [#/Vol] 12.4 10*3/uL High 4.4-11.0 [facility] Comment on above: Performed By: #### L 500.2500, L100.0100 ####[facility] [address] [place], [address] Emergency Department Summary on 05-28-2024 Emergency Department Summary Normal [facility] 12 Lead EKGon 05-26-2024 12 Lead EKG Normal [facility] CBC W/Diff, Automatedon 05-08 Absolute Lymph 1.66 X10 3/uL Normal 0.83-4.51 [facility] Comment on above: Performed By: #### L 500.4050, L501.2450, L100.0100 ####[facility] [address] [place], [address] Absolute Neut 9.5 X10 3/uL High 2.0-7.7 [facility] Comment on above: Performed By: #### L 500.4050, L501.2450, L100.0100 ####[facility] [address] [place], [address] Basophils/100 WBC (Bld) 0.5 % Normal 0-1 [facility] Comment on above: Performed By: #### L 500.4050, L501.2450, L100.0100 ####[facility] [address] [place], [address] Eosinophils/100 WBC (Bld) 0.5 % Normal 0-5 [facility] Comment on above: Performed By: #### L 500.4050, L501.2450, L100.0100 ####[facility] [address] [place], [address] Erythrocyte distribution width (RBC) [Ratio] 13.2 % Normal 11.6-14.6 [facility] Comment on above: Performed By: #### L 500.4050, L501.2450, L100.0100 ####[facility] [address] [place], [address] Hematocrit (Bld) [Volume fraction] 42.0 % Normal 40-54 [facility] Comment on above: Performed By: #### L 500.4050, L501.2450, L100.0100 ####[facility] [address] [place], [address] Hemoglobin (Bld) [Mass/Vol] 15.2 g/dL Normal 13.0-16.5 [facility] Comment on above: Performed By: #### L 500.4050, L501.2450, L100.0100 ####[facility] [address] [place], [address] IG% 0.300 Normal 0.0-0.9 [facility] Comment on above: Result Comment: IG% - Immature Granulocytes (promyelocytes, myelocytes andmetamyelocytes) > 1% indicates that a LEFT SHIFT is Present. Performed By: #### L 500.4050, L501.2450, L100.0100 ####[facility] [address] [place], [address] Lymphocytes/100 WBC (Bld) 13.4 % Low 19-41 [facility] Comment on above: Performed By: #### L 500.4050, L501.2450, L100.0100 ####[facility] [address] [place], [address] MCH (RBC) [Entitic mass] 33.4 pg High 27.0-32.0 [facility] Comment on above: Performed By: #### L 500.4050, L501.2450, L100.0100 ####[facility] [address] [place], [address] MCHC (RBC) [Mass/Vol] 36.2 g/dL High 32-36 [facility] Comment on above: Performed By: #### L 500.4050, L501.2450, L100.0100 ####[facility] [address] [place], [address] MCV (RBC) [Entitic vol] 92.3 fL Normal 80-94 [facility] Comment on above: Performed By: #### L 500.4050, L501.2450, L100.0100 ####[facility] [address] [place], [address] Monocytes/100 WBC (Bld) 8.2 % Normal 0-10 [facility] Comment on above: Performed By: #### L 500.4050, L501.2450, L100.0100 ####[facility] [address] [place], [address] Neutrophils/100 WBC (Bld) 77.1 % High 47-70 [facility] Comment on above: Performed By: #### L 500.4050, L501.2450, L100.0100 ####[facility] [address] [place], [address] Nucleated RBC (Bld) [#/Vol] 0 10*3/uL Normal 0-5 [facility] Comment on above: Performed By: #### L 500.4050, L501.2450, L100.0100 ####[facility] [address] [place], [address] Platelet mean volume (Bld) [Entitic vol] 9.6 fL Normal 6.2-12.0 [facility] Comment on above: Performed By: #### L 500.4050, L501.2450, L100.0100 ####[facility] [address] [place], [address] Platelets (Bld) [#/Vol] 329 10*3/uL Normal 150-450 [facility] Comment on above: Performed By: #### L 500.4050, L501.2450, L100.0100 ####[facility] [address] [place], [address] RBC (Bld) [#/Vol] 4.55 10*6/uL Low 4.6-6.2 [facility] Comment on above: Performed By: #### L 500.4050, L501.2450, L100.0100 ####[facility] [address] [place], [address] RDW SD 44.5 fl High 35.1-43.9 [facility] Comment on above: Performed By: #### L 500.4050, L501.2450, L100.0100 ####[facility] [address] [place], [address] WBC (Bld) [#/Vol] 12.4 10*3/uL High 4.4-11.0 [facility] Comment on above: Performed By: #### L 500.4050, L501.2450, L100.0100 ####[facility] [address] [place], [address] Comprehensive Metabolic Prof [facility] 05-26-2024 Albumin [Mass/Vol] 3.8 g/dL Normal 3.4-4.8 [facility] Comment on above: Performed By: #### L 500.4050, L501.2450, L100.0100 ####[facility] [address] [place], [address] Albumin/Globulin [Mass ratio] 1.0 {ratio} Normal 0.9-2.4 [facility] Comment on above: Performed By: #### L 500.4050, L501.2450, L100.0100 ####[facility] [place] [facility] [address] [place], [address] ALK PHOS 94 U/L Normal 40-129 [facility] Comment on above: Performed By: #### L 500.4050, L501.2450, L100.0100 ####[facility] [address] [place], [address] ALT [Catalytic activity/Vol] 22 U/L Normal <=46 [facility] Comment on above: Performed By: #### L 500.4050, L501.2450, L100.0100 ####[facility] [address] [place], [address] AST [Catalytic activity/Vol] 27 U/L Normal <=37 [facility] Comment on above: Result Comment: Hemo lysis present, Results??could be affected.?? Performed By: #### L 500.4050, L501.2450, L100.0100 ####[facility] [address] [place], [address] Bilirubin [Mass/Vol] 0.51 mg/dL Normal 0.00-1.30 [facility] Comment on above: Performed By: #### L 500.4050, L501.2450, L100.0100 ####[facility] [address] [place], [address] BUN/CRE 25.7 RATIO High 10-20 [facility] Comment on above: Performed By: #### L 500.4050, L501.2450, L100.0100 ####[facility] [address] [place], [address] Calcium [Mass/Vol] 9.7 mg/dL Normal 7.6-11.0 [facility] Comment on above: Performed By: #### L 500.4050, L501.2450, L100.0100 ####[facility] [address] [place], [address] Chloride [Moles/Vol] 98 mmol/L Normal 98-108 [facility] Comment on above: Performed By: #### L 500.4050, L501.2450, L100.0100 ####[facility] [address] [place], [address] CO2 [Moles/Vol] 23.4 mmol/L Normal 21.0-32.0 [facility] Comment on above: Performed By: #### L 500.4050, L501.2450, L100.0100 ####[facility] [address] [place], [address] Creatinine [Mass/Vol] 0.86 mg/dL Normal 0.70-1.20 [facility] Comment on above: Performed By: #### L 500.4050, L501.2450, L100.0100 ####[facility] [address] [place], [address] ECRCL 87.90 ml/min Normal 50-250 [facility] Comment on above: Performed By: #### L 500.4050, L501.2450, L100.0100 ####[facility] [address] [place], [address] GAP 13 Normal 5-15 [facility] Comment on above: Performed By: #### L 500.4050, L501.2450, L100.0100 ####[facility] [address] [place], [address] GFR/1.73 sq M.predicted among non-blacks MDRD (S/P/Bld) [Vol rate/Area] 90 mL/min/{1.73_m2} Normal >60 [facility] Comment on above: Result Comment: mL/m in/1.73m2 CKD-EPI Creatinine Equation (2020) Performed By: #### L 500.4050, L501.2450, L100.0100 ####[facility] [address] [place], [address] Globulin (S) [Mass/Vol] 3.7 g/dL Normal 2.2-4.2 [facility] Comment on above: Performed By: #### L 500.4050, L501.2450, L100.0100 ####[facility] [address] [place], [address] Glucose [Mass/Vol] 111 mg/dL High 70-99 [facility] Comment on above: Performed By: #### L 500.4050, L501.2450, L100.0100 ####[facility] [address] [place], [address] Potassium [Moles/Vol] 4.5 mmol/L Normal 3.3-5.1 [facility] Comment on above: Result Comment: Hemo lysis present, Results??could be affected.?? Performed By: #### L 500.4050, L501.2450, L100.0100 ####[facility] [address] [place], [address] Sodium [Moles/Vol] 135 mmol/L Normal 133-145 [facility] Comment on above: Performed By: #### L 500.4050, L501.2450, L100.0100 ####[facility] [address] [place], [address] T PROT 7.5 g/dL Normal 5.9-8.4 [facility] Comment on above: Performed By: #### L 500.4050, L501.2450, L100.0100 ####[facility] [address] [place], [address] Urea nitrogen [Mass/Vol] 22 mg/dL High 4-19 [facility] Comment on above: Performed By: #### L 500.4050, L501.2450, L100.0100 ####[facility] [address] [place], [address] Emergency Department Summary on 05-26-2024 Emergency Department Summary Normal [facility] Lipaseon 05-26-2024 Lipase [Catalytic activity/Vol] 132 U/L High 13-75 [facility] Comment on above: Result Comment: Nagi nelson note:LIPASE revised reference range effective 22.New Lipase methodology. Expected to produce lower valuesthan the previous assay method.NEW Reference Range: 13 - 75 U/L Performed By: #### L 500.4050, L501.2450, L100.0100 ####[facility] [address] [place], [address] Urinalysis, Completeon 05-26 BACTERIA 0 SEEN Normal None Seen [facility] Comment on above: Order Comment: CLEAN CATCH Performed By: #### L 400.0001 ####[facility] [address] [place], [address] EPI,SQUAMOUS 0 SEEN Normal 0-5 [facility] Comment on above: Order Comment: CLEAN CATCH Performed By: #### L 400.0001 ####[facility] [address] [place], [address] Mucus Ql (Urine sed) 0 SEEN Normal [facility] Comment on above: Order Comment: CLEAN CATCH Performed By: #### L 400.0001 ####[facility] [address] [place], [address] RBC 0 SEEN Normal 0-5 [facility] Comment on above: Order Comment: CLEAN CATCH Performed By: #### L 400.0001 ####[facility] [address] [place], [address] WBC 0 SEEN Normal 0-5 [facility] Comment on above: Order Comment: CLEAN CATCH Performed By: #### L 400.0001 ####[facility] [address] [facility] [address] Urine Drug Screen (VISTA)on 05-26-2024 AMPHETAMINES Negative Normal <1000 ng/mL [facility] Comment on above: Performed By: #### L 505.5000 ####[facility] [address] [place], [address] BARBITIURATES Negative Normal < 200 ng/mL [facility] Comment on above: Performed By: #### L 505.5000 ####[facility] [address] [facility] [address] BENZODIAZIPINE Positive Normal < 200 ng/mL [facility] Comment on above: Result Comment: If c onfirmation testing is needed, a separate order will berequired to send out testing to the reference laboratory. Performed By: #### L 505.5000 ####[facility] [address] [place] [id number] BUP Ur Drug Scr Negative Normal < 200 ng/mL [facility] Comment on above: Performed By: #### L 505.5000 ####[facility] [address] [facility] [address] COCAINE Negative Normal < 300 ng/mL [facility] Comment on above: Performed By: #### L 505.5000 ####[facility] [address] [facility] [address] Fentanyl Negative Normal [facility] Comment on above: Performed By: #### L 505.5000 ####[facility] [address] [place] [id number] METHADONE Negative Normal < 300 ng/mL [facility] Comment on above: Performed By: #### L 505.5000 ####[facility] [address] [facility] [address] OPIATES Negative Normal < 300 ng/mL [facility] Comment on above: Performed By: #### L 505.5000 ####[facility] [address] [place], [address] OXYCODONE Negative Normal < 100 ng/mL [facility] Comment on above: Performed By: #### L 505.5000 ####[facility] [address] [place], [address] PCP Negative Normal < 25 ng/mL [facility] Comment on above: Performed By: #### L 505.5000 ####[facility] [address] [place], [address] THC Negative Normal < 50 ng/mL [facility] Comment on above: Performed By: #### L 505.5000 ####[facility] [address] [place], [address] CBC W/Diff, Automatedon 05-08 Absolute Lymph 1.99 X10 3/uL Normal 0.83-4.51 [facility] Comment on above: Performed By: #### L 500.4050, L100.0100, L503.7505 ####[facility] [address] [place], [address] Absolute Neut 6.1 X10 3/uL Normal 2.0-7.7 [facility] Comment on above: Performed By: #### L 500.4050, L100.0100, L503.7505 ####[facility] [address] [place], [address] Basophils/100 WBC (Bld) 0.5 % Normal 0-1 [facility] Comment on above: Performed By: #### L 500.4050, L100.0100, L503.7505 ####[facility] [address] [place], [address] Eosinophils/100 WBC (Bld) 1.1 % Normal 0-5 [facility] Comment on above: Performed By: #### L 500.4050, L100.0100, L503.7505 ####[facility] [address] [place], [address] Erythrocyte distribution width (RBC) [Ratio] 12.6 % Normal 11.6-14.6 [facility] Comment on above: Performed By: #### L 500.4050, L100.0100, L503.7505 ####[facility] [address] [place], [address] Hematocrit (Bld) [Volume fraction] 40.2 % Normal 40-54 [facility] Comment on above: Performed By: #### L 500.4050, L100.0100, L503.7505 ####[facility] [address] [place], [address] Hemoglobin (Bld) [Mass/Vol] 13.9 g/dL Normal 13.0-16.5 [facility] Comment on above: Performed By: #### L 500.4050, L100.0100, L503.7505 ####[facility] [address] [place], [address] IG% 0.500 Normal 0.0-0.9 [facility] Comment on above: Result Comment: IG% - Immature Granulocytes (promyelocytes, myelocytes andmetamyelocytes) > 1% indicates that a LEFT SHIFT is Present. Performed By: #### L 500.4050, L100.0100, L503.7505 ####[facility] [address] [place], [address] Lymphocytes/100 WBC (Bld) 21.4 % Normal 19-41 [facility] Comment on above: Performed By: #### L 500.4050, L100.0100, L503.7505 ####[facility] [address] [place], [address] MCH (RBC) [Entitic mass] 32.3 pg High 27.0-32.0 [facility] Comment on above: Performed By: #### L 500.4050, L100.0100, L503.7505 ####[facility] [address] [place], [address] MCHC (RBC) [Mass/Vol] 34.6 g/dL Normal 32-36 [facility] Comment on above: Performed By: #### L 500.4050, L100.0100, L503.7505 ####[facility] [address] [place], [address] MCV (RBC) [Entitic vol] 93.5 fL Normal 80-94 [facility] Comment on above: Performed By: #### L 500.4050, L100.0100, L503.7505 ####[facility] [address] [place], [address] Monocytes/100 WBC (Bld) 11.3 % High 0-10 [facility] Comment on above: Performed By: #### L 500.4050, L100.0100, L503.7505 ####[facility] [address] [place], [address] Neutrophils/100 WBC (Bld) 65.2 % Normal 47-70 [facility] Comment on above: Performed By: #### L 500.4050, L100.0100, L503.7505 ####[facility] [address] [place], [address] Nucleated RBC (Bld) [#/Vol] 0 10*3/uL Normal 0-5 [facility] Comment on above: Performed By: #### L 500.4050, L100.0100, L503.7505 ####[facility] [address] [place], [address] Platelet mean volume (Bld) [Entitic vol] 9.8 fL Normal 6.2-12.0 [facility] Comment on above: Performed By: #### L 500.4050, L100.0100, L503.7505 ####[facility] [address] [place], [address] Platelets (Bld) [#/Vol] 309 10*3/uL Normal 150-450 [facility] Comment on above: Performed By: #### L 500.4050, L100.0100, L503.7505 ####[facility] [address] [place], [address] RBC (Bld) [#/Vol] 4.30 10*6/uL Low 4.6-6.2 [facility] Comment on above: Performed By: #### L 500.4050, L100.0100, L503.7505 ####[facility] [address] [place], [address] RDW SD 42.7 fl Normal 35.1-43.9 [facility] Comment on above: Performed By: #### L 500.4050, L100.0100, L503.7505 ####[facility] [address] [place], [address] WBC (Bld) [#/Vol] 9.3 10*3/uL Normal 4.4-11.0 [facility] Comment on above: Performed By: #### L 500.4050, L100.0100, L503.7505 ####[facility] [address] [place], [address] Comprehensive Metabolic Prof iaon 05-21-2024 Albumin [Mass/Vol] 3.6 g/dL Normal 3.4-4.8 [facility] Comment on above: Performed By: #### L 500.4050, L100.0100, L503.7505 ####[facility] [address] [place], [address] Albumin/Globulin [Mass ratio] 1.0 {ratio} Normal 0.9-2.4 [facility] Comment on above: Performed By: #### L 500.4050, L100.0100, L503.7505 ####[facility] [address] [place], [address] ALK PHOS 92 U/L Normal 40-129 [facility] Comment on above: Performed By: #### L 500.4050, L100.0100, L503.7505 ####[facility] [address] [place], [address] ALT [Catalytic activity/Vol] 17 U/L Normal <=46 [facility] Comment on above: Performed By: #### L 500.4050, L100.0100, L503.7505 ####[facility] [address] [place], [address] AST [Catalytic activity/Vol] 27 U/L Normal <=37 [facility] Comment on above: Performed By: #### L 500.4050, L100.0100, L503.7505 ####[facility] [address] [place], [address] Bilirubin [Mass/Vol] 0.47 mg/dL Normal 0.00-1.30 [facility] Comment on above: Performed By: #### L 500.4050, L100.0100, L503.7505 ####[facility] [address] [place], [address] BUN/CRE 14.6 RATIO Normal 10-20 [facility] Comment on above: Performed By: #### L 500.4050, L100.0100, L503.7505 ####[facility] [address] [place], [address] Calcium [Mass/Vol] 9.5 mg/dL Normal 7.6-11.0 [facility] Comment on above: Performed By: #### L 500.4050, L100.0100, L503.7505 ####[facility] [address] [place], [address] Chloride [Moles/Vol] 92 mmol/L Low 98-108 [facility] Comment on above: Performed By: #### L 500.4050, L100.0100, L503.7505 ####[facility] [address] [place], [address] CO2 [Moles/Vol] 26.3 mmol/L Normal 21.0-32.0 [facility] Comment on above: Performed By: #### L 500.4050, L100.0100, [id number] ####[facility] [address] [place], [address] Creatinine [Mass/Vol] 0.70 mg/dL Normal 0.70-1.20 [facility] Comment on above: Performed By: #### L 500.4050, L100.0100, [id number] ####[facility] [address] [place], [address] GAP 11 Normal 5-15 [facility] Comment on above: Performed By: #### L 500.4050, L100.0100, [id number] ####[facility] [address] [place], [address] GFR/1.73 sq M.predicted among non-blacks MDRD (S/P/Bld) [Vol rate/Area] 95 mL/min/{1.73_m2} Normal >60 [facility] Comment on above: Result Comment: mL/m in/1.73m2 CKD-EPI Creatinine Equation (2020) Performed By: #### L 500.4050, L100.0100, [id number] ####[facility] [address] [place], [address] Globulin (S) [Mass/Vol] 3.6 g/dL Normal 2.2-4.2 [facility] Comment on above: Performed By: #### L 500.4050, L100.0100, [id number] ####[facility] [address] [place], [address] Glucose [Mass/Vol] 99 mg/dL Normal 70-99 [facility] Comment on above: Performed By: #### L 500.4050, L100.0100, [id number] ####[facility] [address] [place], [address] Potassium [Moles/Vol] 4.4 mmol/L Normal 3.3-5.1 [facility] Comment on above: Performed By: #### L 500.4050, L100.0100, L503.7505 ####[facility] [address] [place], [address] Sodium [Moles/Vol] 129 mmol/L Low 133-145 [facility] Comment on above: Performed By: #### L 500.4050, L100.0100, L503.7505 ####[facility] [address] [place], [address] T PROT 7.2 g/dL Normal 5.9-8.4 [facility] Comment on above: Performed By: #### L 500.4050, L100.0100, L503.7505 ####[facility] [address] [place], [address] Urea nitrogen [Mass/Vol] 10 mg/dL Normal 4-19 [facility] Comment on above: Performed By: #### L 500.4050, L100.0100, L503.7505 ####[facility] [address] [place], [address] L503.7505on 05-21-2024 Natriuretic peptide B (Bld) [Mass/Vol] 66 pg/mL Normal <=1800 [facility] Comment on above: Result Comment: Hear t Failure Unlikely: < 300 pg/mLHeart Failure Likely< 50 Years: > 450 pg/mL50-75 Years: > 900 pg/mL>75 Years: > 1800 pg/mL Performed By: #### L 500.4050, L100.0100, L503.7505 ####[facility] [address] [place], [address] Basic Metabolic Profile (BMP )on 04-30-2024 BUN/CRE 23.2 RATIO High 10-20 [facility] Comment on above: Order Comment: 103.2 Performed By: #### L 100.0100, L506.1001, L503.0106, L500.2500, L501.9520, L501.5200 ####[facility] [address] [place], [address] Calcium [Mass/Vol] 9.4 mg/dL Normal 7.6-11.0 [facility] Comment on above: Order Comment: 103.2 Performed By: #### L 100.0100, L506.1001, L503.0106, L500.2500, L501.9520, L501.5200 ####[facility] [address] [place], [address] Chloride [Moles/Vol] 98 mmol/L Normal 98-108 [facility] Comment on above: Order Comment: 103.2 Performed By: #### L 100.0100, L506.1001, L503.0106, L500.2500, L501.9520, L501.5200 ####[facility] [address] [place], [address] CO2 [Moles/Vol] 24.1 mmol/L Normal 21.0-32.0 [facility] Comment on above: Order Comment: 103.2 Performed By: #### L 100.0100, L506.1001, L503.0106, L500.2500, L501.9520, L501.5200 ####[facility] [address] [place], [address] Creatinine [Mass/Vol] 0.87 mg/dL Normal 0.70-1.20 [facility] Comment on above: Order Comment: 103.2 Performed By: #### L 100.0100, L506.1001, L503.0106, L500.2500, L501.9520, L501.5200 ####[facility] [address] [place], [address] GAP 12 Normal 5-15 [facility] Comment on above: Order Comment: 103.2 Performed By: #### L 100.0100, L506.1001, L503.0106, L500.2500, L501.9520, L501.5200 ####[facility] [address] [place], [address] GFR/1.73 sq M.predicted among non-blacks MDRD (S/P/Bld) [Vol rate/Area] 90 mL/min/{1.73_m2} Normal >60 [facility] Comment on above: Order Comment: 103.2 Result Comment: mL/m in/1.73m2 CKD-EPI Creatinine Equation (2020) Performed By: #### L 100.0100, L506.1001, L503.0106, L500.2500, L501.9520, L501.5200 ####[facility] [address] [place], [address] Glucose [Mass/Vol] 121 mg/dL High 70-99 [facility] Comment on above: Order Comment: 103.2 Performed By: #### L 100.0100, L506.1001, L503.0106, L500.2500, L501.9520, L501.5200 ####[facility] [address] [place], [address] Potassium [Moles/Vol] 4.2 mmol/L Normal 3.3-5.1 [facility] Comment on above: Order Comment: 103.2 Performed By: #### L 100.0100, L506.1001, L503.0106, L500.2500, L501.9520, L501.5200 ####[facility] [address] [place], [address] Sodium [Moles/Vol] 134 mmol/L Normal 133-145 [facility] Comment on above: Order Comment: 103.2 Performed By: #### L 100.0100, L506.1001, L503.0106, L500.2500, L501.9520, L501.5200 ####[facility] [address] [place], [address] Urea nitrogen [Mass/Vol] 20 mg/dL High 4-19 [facility] Comment on above: Order Comment: 103.2 Performed By: #### L 100.0100, L506.1001, L503.0106, L500.2500, L501.9520, L501.5200 ####[facility] [address] [place], [address] CBC W/Diff, Automatedon 03-2 Absolute Lymph 1.32 X10 3/uL Normal 0.83-4.51 [facility] Comment on above: Order Comment: 103.2 Performed By: #### L 100.0100, L506.1001, L503.0106, L500.2500, L501.9520, L501.5200 ####[facility] [address] [place], [address] Absolute Neut 3.2 X10 3/uL Normal 2.0-7.7 [facility] Comment on above: Order Comment: 103.2 Performed By: #### L 100.0100, L506.1001, L503.0106, L500.2500, L501.9520, L501.5200 ####[facility] [address] [place], [address] Basophils/100 WBC (Bld) 1.0 % Normal 0-1 [facility] Comment on above: Order Comment: 103.2 Performed By: #### L 100.0100, L506.1001, L503.0106, L500.2500, L501.9520, L501.5200 ####[facility] [address] [place], [address] Eosinophils/100 WBC (Bld) 4.4 % Normal 0-5 [facility] Comment on above: Order Comment: 103.2 Performed By: #### L 100.0100, L506.1001, L503.0106, L500.2500, L501.9520, L501.5200 ####[facility] [address] [place], [address] Erythrocyte distribution width (RBC) [Ratio] 13.2 % Normal 11.6-14.6 [facility] Comment on above: Order Comment: 103.2 Performed By: #### L 100.0100, L506.1001, L503.0106, L500.2500, L501.9520, L501.5200 ####[facility] [address] [place], [address] Hematocrit (Bld) [Volume fraction] 42.5 % Normal 40-54 [facility] Comment on above: Order Comment: 103.2 Performed By: #### L 100.0100, L506.1001, L503.0106, L500.2500, L501.9520, L501.5200 ####[facility] [address] [place], [address] Hemoglobin (Bld) [Mass/Vol] 14.5 g/dL Normal 13.0-16.5 [facility] Comment on above: Order Comment: 103.2 Performed By: #### L 100.0100, L506.1001, L503.0106, L500.2500, L501.9520, L501.5200 ####[facility] [address] [place], [address] IG% 0.700 Normal 0.0-0.9 [facility] Comment on above: Order Comment: 103.2 Result Comment: IG% - Immature Granulocytes (promyelocytes, myelocytes andmetamyelocytes) > 1% indicates that a LEFT SHIFT is Present. Performed By: #### L 100.0100, L506.1001, L503.0106, L500.2500, L501.9520, L501.5200 ####[facility] [address] [place], [address] Lymphocytes/100 WBC (Bld) 22.4 % Normal 19-41 [facility] Comment on above: Order Comment: 103.2 Performed By: #### L 100.0100, L506.1001, L503.0106, L500.2500, L501.9520, L501.5200 ####[facility] [address] [place], [address] MCH (RBC) [Entitic mass] 33.3 pg High 27.0-32.0 [facility] Comment on above: Order Comment: 103.2 Performed By: #### L 100.0100, L506.1001, L503.0106, L500.2500, L501.9520, L501.5200 ####[facility] [address] [place], [address] MCHC (RBC) [Mass/Vol] 34.1 g/dL Normal 32-36 [facility] Comment on above: Order Comment: 103.2 Performed By: #### L 100.0100, L506.1001, L503.0106, L500.2500, L501.9520, L501.5200 ####[facility] [address] [place], [address] MCV (RBC) [Entitic vol] 97.7 fL High 80-94 [facility] Comment on above: Order Comment: 103.2 Performed By: #### L 100.0100, L506.1001, L503.0106, L500.2500, L501.9520, L501.5200 ####[facility] [address] [place], [address] Monocytes/100 WBC (Bld) 17.5 % High 0-10 [facility] Comment on above: Order Comment: 103.2 Performed By: #### L 100.0100, L506.1001, L503.0106, L500.2500, L501.9520, L501.5200 ####[facility] [address] [place], [address] Neutrophils/100 WBC (Bld) 54.0 % Normal 47-70 [facility] Comment on above: Order Comment: 103.2 Performed By: #### L 100.0100, L506.1001, L503.0106, L500.2500, L501.9520, L501.5200 ####[facility] [address] [place], [address] Nucleated RBC (Bld) [#/Vol] 0 10*3/uL Normal 0-5 [facility] Comment on above: Order Comment: 103.2 Performed By: #### L 100.0100, L506.1001, L503.0106, L500.2500, L501.9520, L501.5200 ####[facility] [address] [place], [address] Platelet mean volume (Bld) [Entitic vol] 10.2 fL Normal 6.2-12.0 [facility] Comment on above: Order Comment: 103.2 Performed By: #### L 100.0100, L506.1001, L503.0106, L500.2500, L501.9520, L501.5200 ####[facility] [address] [place], [address] Platelets (Bld) [#/Vol] 172 10*3/uL Normal 150-450 [facility] Comment on above: Order Comment: 103.2 Performed By: #### L 100.0100, L506.1001, L503.0106, L500.2500, L501.9520, L501.5200 ####[facility] [address] [place], [address] RBC (Bld) [#/Vol] 4.35 10*6/uL Low 4.6-6.2 [facility] Comment on above: Order Comment: 103.2 Performed By: #### L 100.0100, L506.1001, L503.0106, L500.2500, L501.9520, L501.5200 ####[facility] [address] [place], [address] RDW SD 47.0 fl High 35.1-43.9 [facility] Comment on above: Order Comment: 103.2 Performed By: #### L 100.0100, L506.1001, L503.0106, L500.2500, L501.9520, L501.5200 ####[facility] [address] [place], [address] WBC (Bld) [#/Vol] 5.9 10*3/uL Normal 4.4-11.0 [facility] Comment on above: Order Comment: 103.2 Performed By: #### L 100.0100, L506.1001, L503.0106, L500.2500, L501.9520, L501.5200 ####[facility] [address] [place], [address] L503.0106on 04-30-2024 Cobalamin (Vitamin B12) [Mass/Vol] 522 pg/mL Normal 180-914 [facility] Comment on above: Order Comment: 103.2 Performed By: #### L 100.0100, L506.1001, L503.0106, L500.2500, L501.9520, L501.5200 ####[facility] [address] [place], [address] L506.1001on 04-30-2024 Vitamin D 25-OH 52.8 ng/mL Normal 30-100 [facility] Comment on above: Order Comment: 103.2 Result Comment: Sandra min D StatusDeficiency: <20 ng/mL (50nmol/L)Insufficiency: 20-30 ng/mL (50-75 nmol/L)Sufficiency: 30-100 ng/mL (75-250 nmol/L)Toxicity: >100 ng/mL (>250 nmol/L) Performed By: #### L 100.0100, L506.1001, L503.0106, L500.2500, L501.9520, L501.5200 ####[facility] [address] [place], [address] Magnesiumon 04-30-2024 Magnesium [Mass/Vol] 2.1 mg/dL Normal 1.5-2.2 [facility] Comment on above: Order Comment: 103.2 Performed By: #### L 100.0100, L506.1001, L503.0106, L500.2500, L501.9520, L501.5200 ####[facility] [address] [place], [address] Thyroid Stim Hormone (TSH)on 04-30-2024 TSH 3.020 uIU/mL Normal 0.300-4.200 [facility] Comment on above: Order Comment: 103.2 Performed By: #### L 100.0100, L506.1001, L503.0106, L500.2500, L501.9520, L501.5200 ####[facility] [address] [place], [address] Basic Metabolic Profile (BMP )on 04-23-2024 BUN/CRE 21.4 RATIO High 10-20 [facility] Comment on above: Performed By: #### L 500.2500, L100.0100 ####[facility] [address] [place], [address] Calcium [Mass/Vol] 8.9 mg/dL Normal 7.6-11.0 [facility] Comment on above: Performed By: #### L 500.2500, L100.0100 ####[facility] [address] [place], [address] Chloride [Moles/Vol] 97 mmol/L Low 98-108 [facility] Comment on above: Performed By: #### L 500.2500, L100.0100 ####[facility] [address] [place], [address] CO2 [Moles/Vol] 25.6 mmol/L Normal 21.0-32.0 [facility] Comment on above: Performed By: #### L 500.2500, L100.0100 ####[facility] [address] [place], [address] Creatinine [Mass/Vol] 0.78 mg/dL Normal 0.70-1.20 [facility] Comment on above: Performed By: #### L 500.2500, L100.0100 ####[facility] [address] [place], [address] ECRCL 86.71 ml/min Normal 50-250 [facility] Comment on above: Performed By: #### L 500.2500, L100.0100 ####[facility] [address] [place], [address] GAP 11 Normal 5-15 [facility] Comment on above: Performed By: #### L 500.2500, L100.0100 ####[facility] [address] [place], [address] GFR/1.73 sq M.predicted among non-blacks MDRD (S/P/Bld) [Vol rate/Area] 93 mL/min/{1.73_m2} Normal >60 [facility] Comment on above: Result Comment: mL/m in/1.73m2 CKD-EPI Creatinine Equation (2020) Performed By: #### L 500.2500, L100.0100 ####[facility] [address] [place], [address] Glucose [Mass/Vol] 95 mg/dL Normal 70-99 [facility] Comment on above: Performed By: #### L 500.2500, L100.0100 ####[facility] [address] [place], [address] Potassium [Moles/Vol] 4.7 mmol/L Normal 3.3-5.1 [facility] Comment on above: Performed By: #### L 500.2500, L100.0100 ####[facility] [address] [place], [address] Sodium [Moles/Vol] 133 mmol/L Normal 133-145 [facility] Comment on above: Performed By: #### L 500.2500, L100.0100 ####[facility] [address] [place], [address] Urea nitrogen [Mass/Vol] 17 mg/dL Normal 4-19 [facility] Comment on above: Performed By: #### L 500.2500, L100.0100 ####[facility] [address] [place], [address] CBC W/Diff, Automatedon 04-07 Absolute Lymph 0.88 X10 3/uL Normal 0.83-4.51 [facility] Comment on above: Performed By: #### L 500.2500, L100.0100 ####[facility] [address] [place], [address] Absolute Neut 6.6 X10 3/uL Normal 2.0-7.7 [facility] Comment on above: Performed By: #### L 500.2500, L100.0100 ####[facility] [address] [place], [address] Basophils/100 WBC (Bld) 0.4 % Normal 0-1 [facility] Comment on above: Performed By: #### L 500.2500, L100.0100 ####[facility] [address] [place], [address] Eosinophils/100 WBC (Bld) 0.1 % Normal 0-5 [facility] Comment on above: Performed By: #### L 500.2500, L100.0100 ####[facility] [address] [place], [address] Erythrocyte distribution width (RBC) [Ratio] 13.7 % Normal 11.6-14.6 [facility] Comment on above: Performed By: #### L 500.2500, L100.0100 ####[facility] [address] [place], [address] Hematocrit (Bld) [Volume fraction] 40.4 % Normal 40-54 [facility] Comment on above: Performed By: #### L 500.2500, L100.0100 ####[facility] [address] [place], [address] Hemoglobin (Bld) [Mass/Vol] 13.7 g/dL Normal 13.0-16.5 [facility] Comment on above: Performed By: #### L 500.2500, L100.0100 ####[facility] [address] [place], [address] IG% 0.600 Normal 0.0-0.9 [facility] Comment on above: Result Comment: IG% - Immature Granulocytes (promyelocytes, myelocytes andmetamyelocytes) > 1% indicates that a LEFT SHIFT is Present. Performed By: #### L 500.2500, L100.0100 ####[facility] [address] [place], [address] Lymphocytes/100 WBC (Bld) 10.4 % Low 19-41 [facility] Comment on above: Performed By: #### L 500.2500, L100.0100 ####[facility] [address] [place], [address] MCH (RBC) [Entitic mass] 32.5 pg High 27.0-32.0 [facility] Comment on above: Performed By: #### L 500.2500, L100.0100 ####[facility] [address] [place], [address] MCHC (RBC) [Mass/Vol] 33.9 g/dL Normal 32-36 [facility] Comment on above: Performed By: #### L 500.2500, L100.0100 ####[facility] [address] [place], [address] MCV (RBC) [Entitic vol] 95.7 fL High 80-94 [facility] Comment on above: Performed By: #### L 500.2500, L100.0100 ####[facility] [address] [place], [address] Monocytes/100 WBC (Bld) 11.0 % High 0-10 [facility] Comment on above: Performed By: #### L 500.2500, L100.0100 ####[facility] [address] [place], [address] Neutrophils/100 WBC (Bld) 77.5 % High 47-70 [facility] Comment on above: Performed By: #### L 500.2500, L100.0100 ####[facility] [address] [place], [address] Nucleated RBC (Bld) [#/Vol] 0 10*3/uL Normal 0-5 [facility] Comment on above: Performed By: #### L 500.2500, L100.0100 ####[facility] [address] [place], [address] Platelet mean volume (Bld) [Entitic vol] 9.9 fL Normal 6.2-12.0 [facility] Comment on above: Performed By: #### L 500.2500, L100.0100 ####[facility] [address] [place], [address] Platelets (Bld) [#/Vol] 148 10*3/uL Low 150-450 [facility] Comment on above: Performed By: #### L 500.2500, L100.0100 ####[facility] [address] [place], [address] RBC (Bld) [#/Vol] 4.22 10*6/uL Low 4.6-6.2 [facility] Comment on above: Performed By: #### L 500.2500, L100.0100 ####[facility] [address] [place], [address] RDW SD 48.1 fl High 35.1-43.9 [facility] Comment on above: Performed By: #### L 500.2500, L100.0100 ####[facility] [address] [place], [address] WBC (Bld) [#/Vol] 8.5 10*3/uL Normal 4.4-11.0 [facility] Comment on above: Performed By: #### L 500.2500, L100.0100 ####[facility] [address] [place], [address] Pelvis (Routine)on Pelvis (Routine) Normal [facility] 12 Lead EKGon 04-22-2024 12 Lead EKG Normal [facility] Alcohol, Blood (Medical)-Ser umon 04-22-2024 SERUM ETOH 91.6 mg/dL High <=10.0 [facility] Comment on above: Result Comment: This test is for medical purposes only. The legaldefinition of intoxication varies according to local law. Performed By: #### L 501.9100 ####[facility] [address] [place], [address] Basic Metabolic Profile (BMP )on 04-22-2024 BUN/CRE 16.9 RATIO Normal 10-20 [facility] Comment on above: Performed By: #### L 500.3400, L100.0100, L500.2500, L501.2450, L501.4021 ####[facility] [address] [place], [address] Calcium [Mass/Vol] 9.2 mg/dL Normal 7.6-11.0 [facility] Comment on above: Performed By: #### L 500.3400, L100.0100, L500.2500, L501.2450, L501.4021 ####[facility] [address] [place], [address] Chloride [Moles/Vol] 99 mmol/L Normal 98-108 [facility] Comment on above: Performed By: #### L 500.3400, L100.0100, L500.2500, L501.2450, L501.4021 ####[facility] [address] [place], [address] CO2 [Moles/Vol] 25.2 mmol/L Normal 21.0-32.0 [facility] Comment on above: Performed By: #### L 500.3400, L100.0100, L500.2500, L501.2450, L501.4021 ####[facility] [address] [place], [address] Creatinine [Mass/Vol] 0.93 mg/dL Normal 0.70-1.20 [facility] Comment on above: Performed By: #### L 500.3400, L100.0100, L500.2500, L501.2450, L501.4021 ####[facility] [address] [place], [address] ECRCL 86.05 ml/min Normal 50-250 [facility] Comment on above: Performed By: #### L 500.3400, L100.0100, L500.2500, L501.2450, L501.4021 ####[facility] [address] [place], [address] GAP 14 Normal 5-15 [facility] Comment on above: Performed By: #### L 500.3400, L100.0100, L500.2500, L501.2450, L501.4021 ####[facility] [address] [place], [address] GFR/1.73 sq M.predicted among non-blacks MDRD (S/P/Bld) [Vol rate/Area] 86 mL/min/{1.73_m2} Normal >60 [facility] Comment on above: Result Comment: mL/m in/1.73m2 CKD-EPI Creatinine Equation (2020) Performed By: #### L 500.3400, L100.0100, L500.2500, L501.2450, L501.4021 ####[facility] [address] [place], [address] Glucose [Mass/Vol] 79 mg/dL Normal 70-99 [facility] Comment on above: Performed By: #### L 500.3400, L100.0100, L500.2500, L501.2450, L501.4021 ####[facility] [address] [place], [address] Potassium [Moles/Vol] 4.3 mmol/L Normal 3.3-5.1 [facility] Comment on above: Performed By: #### L 500.3400, L100.0100, L500.2500, L501.2450, L501.4021 ####[facility] [address] [place], [address] Sodium [Moles/Vol] 138 mmol/L Normal 133-145 [facility] Comment on above: Performed By: #### L 500.3400, L100.0100, L500.2500, L501.2450, L501.4021 ####[facility] [address] [place], [address] Urea nitrogen [Mass/Vol] 16 mg/dL Normal 4-19 [facility] Comment on above: Performed By: #### L 500.3400, L100.0100, L500.2500, L501.2450, L501.4021 ####[facility] [address] [place], [address] Brain/Head without Contrasto n 04-22-2024 Brain/Head without Contrast Normal [facility] CBC W/Diff, Automatedon 04-07 Absolute Lymph 1.32 X10 3/uL Normal 0.83-4.51 [facility] Comment on above: Performed By: #### L 500.3400, L100.0100, L500.2500, L501.2450, L501.4021 ####[facility] [address] [place], [address] Absolute Neut 12.2 X10 3/uL High 2.0-7.7 [facility] Comment on above: Performed By: #### L 500.3400, L100.0100, L500.2500, L501.2450, L501.4021 ####[facility] [address] [place], [address] Basophils/100 WBC (Bld) 0.2 % Normal 0-1 [facility] Comment on above: Performed By: #### L 500.3400, L100.0100, L500.2500, L501.2450, L501.4021 ####[facility] [address] [place], [address] Eosinophils/100 WBC (Bld) 0.1 % Normal 0-5 [facility] Comment on above: Performed By: #### L 500.3400, L100.0100, L500.2500, L501.2450, L501.4021 ####[facility] [address] [place], [address] Erythrocyte distribution width (RBC) [Ratio] 13.6 % Normal 11.6-14.6 [facility] Comment on above: Performed By: #### L 500.3400, L100.0100, L500.2500, L501.2450, L501.4021 ####[facility] [address] [place], [address] Hematocrit (Bld) [Volume fraction] 42.9 % Normal 40-54 [facility] Comment on above: Performed By: #### L 500.3400, L100.0100, L500.2500, L501.2450, L501.4021 ####[facility] [address] [place], [address] Hemoglobin (Bld) [Mass/Vol] 14.5 g/dL Normal 13.0-16.5 [facility] Comment on above: Performed By: #### L 500.3400, L100.0100, L500.2500, L501.2450, L501.4021 ####[facility] [address] [place], [address] IG% 1.000 High 0.0-0.9 [facility] Comment on above: Result Comment: IG% - Immature Granulocytes (promyelocytes, myelocytes andmetamyelocytes) > 1% indicates that a LEFT SHIFT is Present. Performed By: #### L 500.3400, L100.0100, L500.2500, L501.2450, L501.4021 ####[facility] [address] [place], [address] Lymphocytes/100 WBC (Bld) 9.0 % Low 19-41 [facility] Comment on above: Performed By: #### L 500.3400, L100.0100, L500.2500, L501.2450, L501.4021 ####[facility] [address] [place], [address] MCH (RBC) [Entitic mass] 32.6 pg High 27.0-32.0 [facility] Comment on above: Performed By: #### L 500.3400, L100.0100, L500.2500, L501.2450, L501.4021 ####[facility] [address] [place], [address] MCHC (RBC) [Mass/Vol] 33.8 g/dL Normal 32-36 [facility] Comment on above: Performed By: #### L 500.3400, L100.0100, L500.2500, L501.2450, L501.4021 ####[facility] [address] [place], [address] MCV (RBC) [Entitic vol] 96.4 fL High 80-94 [facility] Comment on above: Performed By: #### L 500.3400, L100.0100, L500.2500, L501.2450, L501.4021 ####[facility] [address] [place], [address] Monocytes/100 WBC (Bld) 7.0 % Normal 0-10 [facility] Comment on above: Performed By: #### L 500.3400, L100.0100, L500.2500, L501.2450, L501.4021 ####[facility] [address] [place], [address] Neutrophils/100 WBC (Bld) 82.7 % High 47-70 [facility] Comment on above: Performed By: #### L 500.3400, L100.0100, L500.2500, L501.2450, L501.4021 ####[facility] [address] [place], [address] Nucleated RBC (Bld) [#/Vol] 0 10*3/uL Normal 0-5 [facility] Comment on above: Performed By: #### L 500.3400, L100.0100, L500.2500, L501.2450, L501.4021 ####[facility] [address] [place], [address] Platelet mean volume (Bld) [Entitic vol] 9.8 fL Normal 6.2-12.0 [facility] Comment on above: Performed By: #### L 500.3400, L100.0100, L500.2500, L501.2450, L501.4021 ####[facility] [address] [place], [address] Platelets (Bld) [#/Vol] 212 10*3/uL Normal 150-450 [facility] Comment on above: Performed By: #### L 500.3400, L100.0100, L500.2500, L501.2450, L501.4021 ####[facility] [address] [place], [address] RBC (Bld) [#/Vol] 4.45 10*6/uL Low 4.6-6.2 [facility] Comment on above: Performed By: #### L 500.3400, L100.0100, L500.2500, L501.2450, L501.4021 ####[facility] [address] [place], [address] RDW SD 48.8 fl High 35.1-43.9 [facility] Comment on above: Performed By: #### L 500.3400, L100.0100, L500.2500, L501.2450, L501.4021 ####[facility] [address] [place], [address] WBC (Bld) [#/Vol] 14.7 10*3/uL High 4.4-11.0 [facility] Comment on above: Performed By: #### L 500.3400, L100.0100, L500.2500, L501.2450, L501.4021 ####[facility] [address] [place], [address] Chest 1 View (Portable)on Chest 1 View (Portable) Normal [facility] Emergency Department Summary on 04-22-2024 Emergency Department Summary Normal [facility] Extremity Lower without Cont raon 04-22-2024 Extremity Lower without Contra Normal [facility] H AND P Exam - Hospitaliston 04-22-2024 H&P Exam - Hospitalist Normal [facility] HIP, UNI W/ Pelvis 2-3 Views on 04-22-2024 HIP, UNI W/ Pelvis 2-3 Views Normal [facility] L499.0042on 04-22-2024 Trop T High Sen 18 ng/L Normal <=22 [facility] Comment on above: Performed By: #### L 499.0042 ####[facility] [address] [place], [address] L501.4021on 04-22-2024 Trop T High Sen 18 ng/L Normal <=22 [facility] Comment on above: Performed By: #### L 500.3400, L100.0100, L500.2500, L501.2450, L501.4021 ####[facility] [address] [place], [address] Lipaseon 04-22-2024 Lipase [Catalytic activity/Vol] 59 U/L Normal 13-75 [facility] Comment on above: Result Comment: Plea se note:LIPASE revised reference range effective 22.New Lipase methodology. Expected to produce lower valuesthan the previous assay method.NEW Reference Range: 13 - 75 U/L Performed By: #### L 500.3400, L100.0100, L500.2500, L501.2450, L501.4021 ####[facility] [address] [place], [address] Liver Profileon 04-22-2024 Albumin [Mass/Vol] 4.2 g/dL Normal 3.4-4.8 [facility] Comment on above: Performed By: #### L 500.3400, L100.0100, L500.2500, L501.2450, L501.4021 ####[facility] [address] [place], [address] ALK PHOS 69 U/L Normal 40-129 [facility] Comment on above: Performed By: #### L 500.3400, L100.0100, L500.2500, L501.2450, L501.4021 ####[facility] [address] [place], [address] ALT [Catalytic activity/Vol] 29 U/L Normal <=46 [facility] Comment on above: Performed By: #### L 500.3400, L100.0100, L500.2500, L501.2450, L501.4021 ####[facility] [address] [place], [address] AST [Catalytic activity/Vol] 33 U/L Normal <=37 [facility] Comment on above: Performed By: #### L 500.3400, L100.0100, L500.2500, L501.2450, L501.4021 ####[facility] [address] [place], [address] Bilirubin [Mass/Vol] 0.56 mg/dL Normal 0.00-1.30 [facility] Comment on above: Performed By: #### L 500.3400, L100.0100, L500.2500, L501.2450, L501.4021 ####[facility] [address] [place], [address] Bilirubin.direct [Mass/Vol] 0.32 mg/dL High 0.00-0.30 [facility] Comment on above: Performed By: #### L 500.3400, L100.0100, L500.2500, L501.2450, L501.4021 ####[facility] [address] [place], [address] Globulin (S) [Mass/Vol] 2.9 g/dL Normal 2.2-4.2 [facility] Comment on above: Performed By: #### L 500.3400, L100.0100, L500.2500, L501.2450, L501.4021 ####[facility] [address] [place], [address] T PROT 7.1 g/dL Normal 5.9-8.4 [facility] Comment on above: Performed By: #### L 500.3400, L100.0100, L500.2500, L501.2450, L501.4021 ####[facility] [address] [place], [address] Lumbar Spine 2 or 3 Viewson 04-22-2024 Lumbar Spine 2 or 3 Views Normal [facility] Prothrombin Time w/INRon INR Coag (PPP) [Relative time] 0.9 {INR} Normal [facility] Comment on above: Performed By: #### L 300.3900 ####[facility] [address] [place], [address] PT Coag (PPP) [Time] 12.3 s Normal 11.7-14.9 [facility] Comment on above: Performed By: #### L 300.3900 ####[facility] [address] [place], [address] Spine Cervical without Contr ason 04-22-2024 Spine Cervical without Contras Normal [facility] CBC W/Diff, Automatedon 01-2 Absolute Lymph 0.78 X10 3/uL Low 0.83-4.51 [facility] Comment on above: Performed By: #### L 100.0100, L500.4050, L501.2450 ####[facility] [address] [place], [address] Absolute Neut 3.2 X10 3/uL Normal 2.0-7.7 [facility] Comment on above: Performed By: #### L 100.0100, L500.4050, L501.2450 ####[facility] [address] [place], [address] Basophils/100 WBC (Bld) 0.7 % Normal 0-1 [facility] Comment on above: Performed By: #### L 100.0100, L500.4050, L501.2450 ####[facility] [address] [place], [address] Eosinophils/100 WBC (Bld) 0.2 % Normal 0-5 [facility] Comment on above: Performed By: #### L 100.0100, L500.4050, L501.2450 ####[facility] [address] [place], [address] Erythrocyte distribution width (RBC) [Ratio] 13.7 % Normal 11.6-14.6 [facility] Comment on above: Performed By: #### L 100.0100, L500.4050, L501.2450 ####[facility] [address] [place], [address] Hematocrit (Bld) [Volume fraction] 44.9 % Normal 40-54 [facility] Comment on above: Performed By: #### L 100.0100, L500.4050, L501.2450 ####[facility] [address] [place], [address] Hemoglobin (Bld) [Mass/Vol] 14.9 g/dL Normal 13.0-16.5 [facility] Comment on above: Performed By: #### L 100.0100, L500.4050, L501.2450 ####[facility] [address] [place], [address] IG% 0.400 Normal 0.0-0.9 [facility] Comment on above: Result Comment: IG% - Immature Granulocytes (promyelocytes, myelocytes andmetamyelocytes) > 1% indicates that a LEFT SHIFT is Present. Performed By: #### L 100.0100, L500.4050, L501.2450 ####[facility] [address] [place], [address] Lymphocytes/100 WBC (Bld) 17.0 % Low 19-41 [facility] Comment on above: Performed By: #### L 100.0100, L500.4050, L501.2450 ####[facility] [address] [place], [address] MCH (RBC) [Entitic mass] 32.0 pg Normal 27.0-32.0 [facility] Comment on above: Performed By: #### L 100.0100, L500.4050, L501.2450 ####[facility] [address] [place], [address] MCHC (RBC) [Mass/Vol] 33.2 g/dL Normal 32-36 [facility] Comment on above: Performed By: #### L 100.0100, L500.4050, L501.2450 ####[facility] [address] [place], [address] MCV (RBC) [Entitic vol] 96.4 fL High 80-94 [facility] Comment on above: Performed By: #### L 100.0100, L500.4050, L501.2450 ####[facility] [address] [place], [address] Monocytes/100 WBC (Bld) 12.4 % High 0-10 [facility] Comment on above: Performed By: #### L 100.0100, L500.4050, L501.2450 ####[facility] [address] [place], [address] Neutrophils/100 WBC (Bld) 69.3 % Normal 47-70 [facility] Comment on above: Performed By: #### L 100.0100, L500.4050, L501.2450 ####[facility] [address] [place], [address] Nucleated RBC (Bld) [#/Vol] 0 10*3/uL Normal 0-5 [facility] Comment on above: Performed By: #### L 100.0100, L500.4050, L501.2450 ####[facility] [address] [place], [address] Platelet mean volume (Bld) [Entitic vol] 9.6 fL Normal 6.2-12.0 [facility] Comment on above: Performed By: #### L 100.0100, L500.4050, L501.2450 ####[facility] [address] [place], [address] Platelets (Bld) [#/Vol] 240 10*3/uL Normal 150-450 [facility] Comment on above: Performed By: #### L 100.0100, L500.4050, L501.2450 ####[facility] [address] [place], [address] RBC (Bld) [#/Vol] 4.66 10*6/uL Normal 4.6-6.2 [facility] Comment on above: Performed By: #### L 100.0100, L500.4050, L501.2450 ####[facility] [address] [place], [address] RDW SD 48.6 fl High 35.1-43.9 [facility] Comment on above: Performed By: #### L 100.0100, L500.4050, L501.2450 ####[facility] [address] [place], [address] WBC (Bld) [#/Vol] 4.6 10*3/uL Normal 4.4-11.0 [facility] Comment on above: Performed By: #### L 100.0100, L500.4050, L501.2450 ####[facility] [address] [place], [address] Comprehensive Metabolic Prof [facility] 03-07-2024 Albumin [Mass/Vol] 3.9 g/dL Normal 3.2-5.0 [facility] Comment on above: Performed By: #### L 100.0100, L500.4050, L501.2450 ####[facility] [address] [place], [address] Albumin/Globulin [Mass ratio] 0.9 {ratio} Normal 0.9-2.4 [facility] Comment on above: Performed By: #### L 100.0100, L500.4050, L501.2450 ####[facility] [address] [place], [address] ALK P 77 U/L Normal 45-117 [facility] Comment on above: Performed By: #### L 100.0100, L500.4050, L501.2450 ####[facility] [address] [place], [address] ALT [Catalytic activity/Vol] 56 U/L Normal 16-61 [facility] Comment on above: Performed By: #### L 100.0100, L500.4050, L501.2450 ####[facility] [address] [place], [address] AST [Catalytic activity/Vol] 67 U/L High 15-37 [facility] Comment on above: Performed By: #### L 100.0100, L500.4050, L501.2450 ####[facility] [address] [place], [address] Bilirubin [Mass/Vol] 1.10 mg/dL High 0.20-1.00 [facility] Comment on above: Result Comment: For patients on eltrombopag therapy, use of Dimension [place] TBIL is not recommended. Performed By: #### L 100.0100, L500.4050, L501.2450 ####[facility] [address] [place], [address] BUN/CRE 8.1 RATIO Low 10-20 [facility] Comment on above: Performed By: #### L 100.0100, L500.4050, L501.2450 ####[facility] [address] [place], [address] CA,Total 10.2 mg/dL High 8.5-10.1 [facility] Comment on above: Performed By: #### L 100.0100, L500.4050, L501.2450 ####[facility] [address] [place], [address] Chloride [Moles/Vol] 95 mmol/L Low 98-107 [facility] Comment on above: Performed By: #### L 100.0100, L500.4050, L501.2450 ####[facility] [address] [place], [address] CO2 [Moles/Vol] 34.0 mmol/L High 21.0-32.0 [facility] Comment on above: Performed By: #### L 100.0100, L500.4050, L501.2450 ####[facility] [address] [place], [address] Creatinine [Mass/Vol] 0.99 mg/dL Normal 0.70-1.30 [facility] Comment on above: Result Comment: The validity of the calculated GFR GFRAA in patients over70 years has not been determined. Clinical correlation isessential. Performed By: #### L 100.0100, L500.4050, L501.2450 ####[facility] [address] [place], [address] ECRCL 80.87 ml/min Normal [facility] Comment on above: Performed By: #### L 100.0100, L500.4050, L501.2450 ####[facility] [address] [place], [address] EST GFR - AA 94 mL/min Normal >60 [facility] Comment on above: Result Comment: Afri can Algerian GFR Calc Performed By: #### L 100.0100, L500.4050, L501.2450 ####[facility] [address] [place], [address] GAP 6 Normal 5-15 [facility] Comment on above: Performed By: #### L 100.0100, L500.4050, L501.2450 ####[facility] [address] [place], [address] GFR/1.73 sq M.predicted among non-blacks MDRD (S/P/Bld) [Vol rate/Area] 78 mL/min/{1.73_m2} Normal >60 [facility] Comment on above: Result Comment: Non- GFR Calc Performed By: #### L 100.0100, L500.4050, L501.2450 ####[facility] [address] [place], [address] Globulin (S) [Mass/Vol] 4.2 g/dL Normal 2.2-4.2 [facility] Comment on above: Performed By: #### L 100.0100, L500.4050, L501.2450 ####[facility] [address] [place], [address] Glucose [Mass/Vol] 101 mg/dL Normal 74-106 [facility] Comment on above: Result Comment: Fast ing Glucose result from 100 to 125 mg/dLsuggests IMPAIRED HOMEOSTASIS per A.D.A. criteria. Performed By: #### L 100.0100, L500.4050, L501.2450 ####[facility] [address] [place], [address] Potassium [Moles/Vol] 3.7 mmol/L Normal 3.5-5.1 [facility] Comment on above: Performed By: #### L 100.0100, L500.4050, L501.2450 ####[facility] [address] [place], [address] Sodium [Moles/Vol] 135 mmol/L Low 136-145 [facility] Comment on above: Performed By: #### L 100.0100, L500.4050, L501.2450 ####[facility] [address] [place], [address] T PROT 8.1 g/dL Normal 6.4-8.2 [facility] Comment on above: Performed By: #### L 100.0100, L500.4050, L501.2450 ####[facility] [address] [place], [address] Urea nitrogen [Mass/Vol] 8 mg/dL Normal 7-18 [facility] Comment on above: Performed By: #### L 100.0100, L500.4050, L501.2450 ####[facility] [address] [place], [address] Emergency Department Summary on 03-07-2024 Emergency Department Summary Normal [facility] Lipaseon 03-07-2024 Lipase [Catalytic activity/Vol] 58 U/L Normal 13-75 [facility] Comment on above: Result Comment: Nagi nelson note:LIPASE revised reference range effective 22.New Lipase methodology. Expected to produce lower valuesthan the previous assay method.NEW Reference Range: 13 - 75 U/L Performed By: #### L 100.0100, L500.4050, L501.2450 ####[facility] [address] [place], [address] CBC W/Diff, Automatedon 02-08 Absolute Lymph 1.18 X10 3/uL Normal 0.83-4.51 [facility] Comment on above: Performed By: #### L 100.0100 ####[facility] [address] [place], [address] Absolute Neut 2.0 X10 3/uL Normal 2.0-7.7 [facility] Comment on above: Performed By: #### L 100.0100 ####[facility] [address] [place], [address] Basophils/100 WBC (Bld) 1.2 % High 0-1 [facility] Comment on above: Performed By: #### L 100.0100 ####[facility] [address] [place], [address] Eosinophils/100 WBC (Bld) 2.1 % Normal 0-5 [facility] Comment on above: Performed By: #### L 100.0100 ####[facility] [address] [place], [address] Erythrocyte distribution width (RBC) [Ratio] 13.8 % Normal 11.6-14.6 [facility] Comment on above: Performed By: #### L 100.0100 ####[facility] [address] [place], [address] Hematocrit (Bld) [Volume fraction] 42.2 % Normal 40-54 [facility] Comment on above: Performed By: #### L 100.0100 ####[facility] [address] [place], [address] Hemoglobin (Bld) [Mass/Vol] 13.8 g/dL Normal 13.0-16.5 [facility] Comment on above: Performed By: #### L 100.0100 ####[facility] [address] [place], [address] IG% 0.000 Normal 0.0-0.9 [facility] Comment on above: Result Comment: IG% - Immature Granulocytes (promyelocytes, myelocytes andmetamyelocytes) > 1% indicates that a LEFT SHIFT is Present. Performed By: #### L 100.0100 ####[facility] [address] [place], [address] Lymphocytes/100 WBC (Bld) 28.2 % Normal 19-41 [facility] Comment on above: Performed By: #### L 100.0100 ####[facility] [address] [place], [address] MCH (RBC) [Entitic mass] 32.9 pg High 27.0-32.0 [facility] Comment on above: Performed By: #### L 100.0100 ####[facility] [address] [place], [address] MCHC (RBC) [Mass/Vol] 32.7 g/dL Normal 32-36 [facility] Comment on above: Performed By: #### L 100.0100 ####[facility] [address] [place], [address] MCV (RBC) [Entitic vol] 100.5 fL High 80-94 [facility] Comment on above: Performed By: #### L 100.0100 ####[facility] [address] [place], [address] Monocytes/100 WBC (Bld) 20.8 % High 0-10 [facility] Comment on above: Performed By: #### L 100.0100 ####[facility] [address] [place], [address] Neutrophils/100 WBC (Bld) 47.7 % Normal 47-70 [facility] Comment on above: Performed By: #### L 100.0100 ####[facility] [address] [place], [address] Nucleated RBC (Bld) [#/Vol] 0 10*3/uL Normal 0-5 [facility] Comment on above: Performed By: #### L 100.0100 ####[facility] [address] [place], [address] Platelet mean volume (Bld) [Entitic vol] 10.5 fL Normal 6.2-12.0 [facility] Comment on above: Performed By: #### L 100.0100 ####[facility] [address] [place], [address] Platelets (Bld) [#/Vol] 199 10*3/uL Normal 150-450 [facility] Comment on above: Performed By: #### L 100.0100 ####[facility] [address] [place], [address] RBC (Bld) [#/Vol] 4.20 10*6/uL Low 4.6-6.2 [facility] Comment on above: Performed By: #### L 100.0100 ####[facility] [address] [place], [address] RDW SD 50.9 fl High 35.1-43.9 [facility] Comment on above: Performed By: #### L 100.0100 ####[facility] [address] [place], [address] WBC (Bld) [#/Vol] 4.2 10*3/uL Low 4.4-11.0 [facility] Comment on above: Performed By: #### L 100.0100 ####[facility] [address] [place], [address] Basic Metabolic Profile (BMP )on 02-20-2024 BUN/CRE 8.8 RATIO Low 10-20 [facility] Comment on above: Performed By: #### L 100.0100, L500.2500 ####[facility] [address] [place], [address] CA,Total 8.8 mg/dL Normal 8.5-10.1 [facility] Comment on above: Performed By: #### L 100.0100, L500.2500 ####[facility] [address] [place], [address] Chloride [Moles/Vol] 99 mmol/L Normal 98-107 [facility] Comment on above: Performed By: #### L 100.0100, L500.2500 ####[facility] [address] [place], [address] CO2 [Moles/Vol] 28.0 mmol/L Normal 21.0-32.0 [facility] Comment on above: Performed By: #### L 100.0100, L500.2500 ####[facility] [address] [place], [address] Creatinine [Mass/Vol] 0.80 mg/dL Normal 0.70-1.30 [facility] Comment on above: Result Comment: The validity of the calculated GFR GFRAA in patients over70 years has not been determined. Clinical correlation isessential. Performed By: #### L 100.0100, L500.2500 ####[facility] [address] [place], [address] ECRCL 103.48 ml/min Normal [facility] Comment on above: Performed By: #### L 100.0100, L500.2500 ####[facility] [address] [place], [address] EST GFR - AA 122 mL/min Normal >60 [facility] Comment on above: Result Comment: Afri can Algerian GFR Calc Performed By: #### L 100.0100, L500.2500 ####[facility] [address] [place], [address] GAP 11 Normal 5-15 [facility] Comment on above: Performed By: #### L 100.0100, L500.2500 ####[facility] [address] [place], [address] GFR/1.73 sq M.predicted among non-blacks MDRD (S/P/Bld) [Vol rate/Area] 101 mL/min/{1.73_m2} Normal >60 [facility] Comment on above: Result Comment: Non- GFR Calc Performed By: #### L 100.0100, L500.2500 ####[facility] [address] [place], [address] Glucose [Mass/Vol] 80 mg/dL Normal 74-106 [facility] Comment on above: Performed By: #### L 100.0100, L500.2500 ####[facility] [address] [place], [address] Potassium [Moles/Vol] 3.8 mmol/L Normal 3.5-5.1 [facility] Comment on above: Performed By: #### L 100.0100, L500.2500 ####[facility] [address] [place], [address] Sodium [Moles/Vol] 138 mmol/L Normal 136-145 [facility] Comment on above: Performed By: #### L 100.0100, L500.2500 ####[facility] [address] [place], [address] Urea nitrogen [Mass/Vol] 7 mg/dL Normal 7-18 [facility] Comment on above: Performed By: #### L 100.0100, L500.2500 ####[facility] [address] [place], [address] CBC W/Diff, Automatedon 02-07 Absolute Lymph 1.34 X10 3/uL Normal 0.83-4.51 [facility] Comment on above: Performed By: #### L 100.0100, L500.2500 ####[facility] [address] [place], [address] Absolute Neut 3.0 X10 3/uL Normal 2.0-7.7 [facility] Comment on above: Performed By: #### L 100.0100, L500.2500 ####[facility] [address] [place], [address] Basophils/100 WBC (Bld) 0.4 % Normal 0-1 [facility] Comment on above: Performed By: #### L 100.0100, L500.2500 ####[facility] [address] [place], [address] Eosinophils/100 WBC (Bld) 2.0 % Normal 0-5 [facility] Comment on above: Performed By: #### L 100.0100, L500.2500 ####[facility] [address] [place], [address] Erythrocyte distribution width (RBC) [Ratio] 14.2 % Normal 11.6-14.6 [facility] Comment on above: Performed By: #### L 100.0100, L500.2500 ####[facility] [address] [place], [address] Hematocrit (Bld) [Volume fraction] 41.0 % Normal 40-54 [facility] Comment on above: Performed By: #### L 100.0100, L500.2500 ####[facility] [address] [place], [address] Hemoglobin (Bld) [Mass/Vol] 13.7 g/dL Normal 13.0-16.5 [facility] Comment on above: Performed By: #### L 100.0100, L500.2500 ####[facility] [address] [place], [address] IG% 0.400 Normal 0.0-0.9 [facility] Comment on above: Result Comment: IG% - Immature Granulocytes (promyelocytes, myelocytes andmetamyelocytes) > 1% indicates that a LEFT SHIFT is Present. Performed By: #### L 100.0100, L500.2500 ####[facility] [address] [place], [address] Lymphocytes/100 WBC (Bld) 26.2 % Normal 19-41 [facility] Comment on above: Performed By: #### L 100.0100, L500.2500 ####[facility] [address] [place], [address] MCH (RBC) [Entitic mass] 32.9 pg High 27.0-32.0 [facility] Comment on above: Performed By: #### L 100.0100, L500.2500 ####[facility] [address] [place], [address] MCHC (RBC) [Mass/Vol] 33.4 g/dL Normal 32-36 [facility] Comment on above: Performed By: #### L 100.0100, L500.2500 ####[facility] [address] [place], [address] MCV (RBC) [Entitic vol] 98.6 fL High 80-94 [facility] Comment on above: Performed By: #### L 100.0100, L500.2500 ####[facility] [address] [place], [address] Monocytes/100 WBC (Bld) 12.3 % High 0-10 [facility] Comment on above: Performed By: #### L 100.0100, L500.2500 ####[facility] [address] [place], [address] Neutrophils/100 WBC (Bld) 58.7 % Normal 47-70 [facility] Comment on above: Performed By: #### L 100.0100, L500.2500 ####[facility] [address] [place], [address] Nucleated RBC (Bld) [#/Vol] 0 10*3/uL Normal 0-5 [facility] Comment on above: Performed By: #### L 100.0100, L500.2500 ####[facility] [address] [place], [address] Platelet mean volume (Bld) [Entitic vol] 9.4 fL Normal 6.2-12.0 [facility] Comment on above: Performed By: #### L 100.0100, L500.2500 ####[facility] [address] [place], [address] Platelets (Bld) [#/Vol] 107 10*3/uL Low 150-450 [facility] Comment on above: Performed By: #### L 100.0100, L500.2500 ####[facility] [address] [place], [address] RBC (Bld) [#/Vol] 4.16 10*6/uL Low 4.6-6.2 [facility] Comment on above: Performed By: #### L 100.0100, L500.2500 ####[facility] [address] [place], [address] RDW SD 50.7 fl High 35.1-43.9 [facility] Comment on above: Performed By: #### L 100.0100, L500.2500 ####[facility] [address] [place], [address] WBC (Bld) [#/Vol] 5.1 10*3/uL Normal 4.4-11.0 [facility] Comment on above: Performed By: #### L 100.0100, L500.2500 ####[facility] [address] [place], [address] Emergency Department Summary on 02-20-2024 Emergency Department Summary Normal [facility] Plastic Surgery Visit Report on 02-03-2024 Plastic Surgery Visit Report Normal [facility] Plastic Surgery Visit Report on 01-27-2024 Plastic Surgery Visit Report Normal [facility] Surgery Specimen Level Ibis 01-27-2024 Surgery Specimen Level IV Normal [facility] Comment on above: Performed By: #### P SUIV ####[facility] [address] [place], [address] Plastic Surgery Visit Report on 12-30-2023 Plastic Surgery Visit Report Normal [facility] 12 Lead EKGon 12-18-2023 12 Lead EKG Normal [facility] CBC W/Diff, Automatedon 12-08 Absolute Lymph 2.50 X10 3/uL Normal 0.83-4.51 [facility] Comment on above: Performed By: #### L 501.4020, L501.2450, L500.4050, L100.0100 ####[facility] [address] [place], [address] Absolute Neut 3.5 X10 3/uL Normal 2.0-7.7 [facility] Comment on above: Performed By: #### L 501.4020, L501.2450, L500.4050, L100.0100 ####[facility] [address] [place], [address] Basophils/100 WBC (Bld) 0.6 % Normal 0-1 [facility] Comment on above: Performed By: #### L 501.4020, L501.2450, L500.4050, L100.0100 ####[facility] [address] [place], [address] Eosinophils/100 WBC (Bld) 0.7 % Normal 0-5 [facility] Comment on above: Performed By: #### L 501.4020, L501.2450, L500.4050, L100.0100 ####[facility] [address] [place], [address] Erythrocyte distribution width (RBC) [Ratio] 13.4 % Normal 11.6-14.6 [facility] Comment on above: Performed By: #### L 501.4020, L501.2450, L500.4050, L100.0100 ####[facility] [address] [place], [address] Hematocrit (Bld) [Volume fraction] 43.9 % Normal 40-54 [facility] Comment on above: Performed By: #### L 501.4020, L501.2450, L500.4050, L100.0100 ####[facility] [address] [place], [address] Hemoglobin (Bld) [Mass/Vol] 15.1 g/dL Normal 13.0-16.5 [facility] Comment on above: Performed By: #### L 501.4020, L501.2450, L500.4050, L100.0100 ####[facility] [address] [place], [address] IG% 0.300 Normal 0.0-0.9 [facility] Comment on above: Result Comment: IG% - Immature Granulocytes (promyelocytes, myelocytes andmetamyelocytes) > 1% indicates that a LEFT SHIFT is Present. Performed By: #### L 501.4020, L501.2450, L500.4050, L100.0100 ####[facility] [address] [place], [address] Lymphocytes/100 WBC (Bld) 36.9 % Normal 19-41 [facility] Comment on above: Performed By: #### L 501.4020, L501.2450, L500.4050, L100.0100 ####[facility] [address] [place], [address] MCH (RBC) [Entitic mass] 33.8 pg High 27.0-32.0 [facility] Comment on above: Performed By: #### L 501.4020, L501.2450, L500.4050, L100.0100 ####[facility] [address] [place], [address] MCHC (RBC) [Mass/Vol] 34.4 g/dL Normal 32-36 [facility] Comment on above: Performed By: #### L 501.4020, L501.2450, L500.4050, L100.0100 ####[facility] [address] [place], [address] MCV (RBC) [Entitic vol] 98.2 fL High 80-94 [facility] Comment on above: Performed By: #### L 501.4020, L501.2450, L500.4050, L100.0100 ####[facility] [address] [place], [address] Monocytes/100 WBC (Bld) 9.7 % Normal 0-10 [facility] Comment on above: Performed By: #### L 501.4020, L501.2450, L500.4050, L100.0100 ####[facility] [address] [place], [address] Neutrophils/100 WBC (Bld) 51.8 % Normal 47-70 [facility] Comment on above: Performed By: #### L 501.4020, L501.2450, L500.4050, L100.0100 ####[facility] [address] [place], [address] Nucleated RBC (Bld) [#/Vol] 0 10*3/uL Normal 0-5 [facility] Comment on above: Performed By: #### L 501.4020, L501.2450, L500.4050, L100.0100 ####[facility] [address] [place], [address] Platelet mean volume (Bld) [Entitic vol] 9.7 fL Normal 6.2-12.0 [facility] Comment on above: Performed By: #### L 501.4020, L501.2450, L500.4050, L100.0100 ####[facility] [address] [place], [address] Platelets (Bld) [#/Vol] 235 10*3/uL Normal 150-450 [facility] Comment on above: Performed By: #### L 501.4020, L501.2450, L500.4050, L100.0100 ####[facility] [address] [place], [address] RBC (Bld) [#/Vol] 4.47 10*6/uL Low 4.6-6.2 [facility] Comment on above: Performed By: #### L 501.4020, L501.2450, L500.4050, L100.0100 ####[facility] [address] [place], [address] RDW SD 49.0 fl High 35.1-43.9 [facility] Comment on above: Performed By: #### L 501.4020, L501.2450, L500.4050, L100.0100 ####[facility] [address] [place], [address] WBC (Bld) [#/Vol] 6.8 10*3/uL Normal 4.4-11.0 [facility] Comment on above: Performed By: #### L 501.4020, L501.2450, L500.4050, L100.0100 ####[facility] [address] [place], [address] Comprehensive Metabolic Prof ilon 12-18-2023 Albumin [Mass/Vol] 3.6 g/dL Normal 3.2-5.0 [facility] Comment on above: Order Comment: 'TROP ' Serial specimen #1, #2 or #3: 1 Performed By: #### L 501.4020, L501.2450, L500.4050, L100.0100 ####[facility] [address] [place], [address] Albumin/Globulin [Mass ratio] 0.9 {ratio} Normal 0.9-2.4 [facility] Comment on above: Order Comment: 'TROP ' Serial specimen #1, #2 or #3: 1 Performed By: #### L 501.4020, L501.2450, L500.4050, L100.0100 ####[facility] [address] [place], [address] ALK P 74 U/L Normal 45-117 [facility] Comment on above: Order Comment: 'TROP ' Serial specimen #1, #2 or #3: 1 Performed By: #### L 501.4020, L501.2450, L500.4050, L100.0100 ####[facility] [address] [place], [address] ALT [Catalytic activity/Vol] 29 U/L Normal 16-61 [facility] Comment on above: Order Comment: 'TROP ' Serial specimen #1, #2 or #3: 1 Performed By: #### L 501.4020, L501.2450, L500.4050, L100.0100 ####[facility] [address] [place], [address] AST [Catalytic activity/Vol] 41 U/L High 15-37 [facility] Comment on above: Order Comment: 'TROP ' Serial specimen #1, #2 or #3: 1 Performed By: #### L 501.4020, L501.2450, L500.4050, L100.0100 ####[facility] [address] [place], [address] Bilirubin [Mass/Vol] 0.30 mg/dL Normal 0.20-1.00 [facility] Comment on above: Order Comment: 'TROP ' Serial specimen #1, #2 or #3: 1 Result Comment: For patients on eltrombopag therapy, use of Dimension [place] TBIL is not recommended. Performed By: #### L 501.4020, L501.2450, L500.4050, L100.0100 ####[facility] [address] [place], [address] BUN/CRE 13.9 RATIO Normal 10-20 [facility] Comment on above: Order Comment: 'TROP ' Serial specimen #1, #2 or #3: 1 Performed By: #### L 501.4020, L501.2450, L500.4050, L100.0100 ####[facility] [address] [place], [address] CA,Total 9.2 mg/dL Normal 8.5-10.1 [facility] Comment on above: Order Comment: 'TROP ' Serial specimen #1, #2 or #3: 1 Performed By: #### L 501.4020, L501.2450, L500.4050, L100.0100 ####[facility] [address] [place], [address] Chloride [Moles/Vol] 105 mmol/L Normal 98-107 [facility] Comment on above: Order Comment: 'TROP ' Serial specimen #1, #2 or #3: 1 Performed By: #### L 501.4020, L501.2450, L500.4050, L100.0100 ####[facility] [address] [place], [address] CO2 [Moles/Vol] 25.0 mmol/L Normal 21.0-32.0 [facility] Comment on above: Order Comment: 'TROP ' Serial specimen #1, #2 or #3: 1 Performed By: #### L 501.4020, L501.2450, L500.4050, L100.0100 ####[facility] [address] [place], [address] Creatinine [Mass/Vol] 1.08 mg/dL Normal 0.70-1.30 [facility] Comment on above: Order Comment: 'TROP ' Serial specimen #1, #2 or #3: 1 Result Comment: The validity of the calculated GFR GFRAA in patients over70 years has not been determined. Clinical correlation isessential. Performed By: #### L 501.4020, L501.2450, L500.4050, L100.0100 ####[facility] [address] [place], [address] ECRCL 75.77 ml/min Normal [facility] Comment on above: Order Comment: 'TROP ' Serial specimen #1, #2 or #3: 1 Performed By: #### L 501.4020, L501.2450, L500.4050, L100.0100 ####[facility] [address] [place], [address] EST GFR - AA 86 mL/min Normal >60 [facility] Comment on above: Order Comment: 'TROP ' Serial specimen #1, #2 or #3: 1 Result Comment: Afri can Algerian GFR Calc Performed By: #### L 501.4020, L501.2450, L500.4050, L100.0100 ####[facility] [address] [place], [address] GAP 8 Normal 5-15 [facility] Comment on above: Order Comment: 'TROP ' Serial specimen #1, #2 or #3: 1 Performed By: #### L 501.4020, L501.2450, L500.4050, L100.0100 ####[facility] [address] [place], [address] GFR/1.73 sq M.predicted among non-blacks MDRD (S/P/Bld) [Vol rate/Area] 71 mL/min/{1.73_m2} Normal >60 [facility] Comment on above: Order Comment: 'TROP ' Serial specimen #1, #2 or #3: 1 Result Comment: Non- GFR Calc Performed By: #### L 501.4020, L501.2450, L500.4050, L100.0100 ####[facility] [address] [place], [address] Globulin (S) [Mass/Vol] 3.9 g/dL Normal 2.2-4.2 [facility] Comment on above: Order Comment: 'TROP ' Serial specimen #1, #2 or #3: 1 Performed By: #### L 501.4020, L501.2450, L500.4050, L100.0100 ####[facility] [address] [place], [address] Glucose [Mass/Vol] 107 mg/dL High 74-106 [facility] Comment on above: Order Comment: 'TROP ' Serial specimen #1, #2 or #3: 1 Result Comment: Fast ing Glucose result from 100 to 125 mg/dLsuggests IMPAIRED HOMEOSTASIS per A.D.A. criteria. Performed By: #### L 501.4020, L501.2450, L500.4050, L100.0100 ####[facility] [address] [place], [address] Potassium [Moles/Vol] 4.2 mmol/L Normal 3.5-5.1 [facility] Comment on above: Order Comment: 'TROP ' Serial specimen #1, #2 or #3: 1 Performed By: #### L 501.4020, L501.2450, L500.4050, L100.0100 ####[facility] [address] [place], [address] Sodium [Moles/Vol] 138 mmol/L Normal 136-145 [facility] Comment on above: Order Comment: 'TROP ' Serial specimen #1, #2 or #3: 1 Performed By: #### L 501.4020, L501.2450, L500.4050, L100.0100 ####[facility] [address] [place], [address] T PROT 7.5 g/dL Normal 6.4-8.2 [facility] Comment on above: Order Comment: 'TROP ' Serial specimen #1, #2 or #3: 1 Performed By: #### L 501.4020, L501.2450, L500.4050, L100.0100 ####[facility] [address] [place], [address] Urea nitrogen [Mass/Vol] 15 mg/dL Normal 7-18 [facility] Comment on above: Order Comment: 'TROP ' Serial specimen #1, #2 or #3: 1 Performed By: #### L 501.4020, L501.2450, L500.4050, L100.0100 ####[facility] [address] [place], [address] Emergency Department Summary on 12-18-2023 Emergency Department Summary Normal [facility] L501.4020on 12-18-2023 TROPONIN-I HS 14 pg/mL Normal 3.0-78.0 [facility] Comment on above: Order Comment: 'TROP ' Serial specimen #1, #2 or #3: 1 Result Comment: Plejake nelson Note: New Test Units and Gender Specific Reference Ranges. For more information see Policy Stat Procedure [place] High Sensitivity Troponin (TNIH) and attachments. Performed By: #### L 501.4020, L501.2450, L500.4050, L100.0100 ####[facility] [address] [place], [address] Lipaseon 12-18-2023 Lipase [Catalytic activity/Vol] 58 U/L Normal 13-75 [facility] Comment on above: Order Comment: 'TROP ' Serial specimen #1, #2 or #3: 1 Result Comment: Nagi nelson note:LIPASE revised reference range effective 22.New Lipase methodology. Expected to produce lower valuesthan the previous assay method.NEW Reference Range: 13 - 75 U/L Performed By: #### L 501.4020, L501.2450, L500.4050, L100.0100 ####[facility] [address] [place], [address] Urinalysis, Completeon 12-17 BACTERIA Normal None Seen [facility] Comment on above: Order Comment: CLEAN CATCH Result Comment: PT D ISCHARGED Performed By: #### L 400.0001 ####[facility] [address] [place], [address] BILIRUBIN URINE Normal Negative [facility] Comment on above: Order Comment: CLEAN CATCH Result Comment: PT D ISCHARGED Performed By: #### L 400.0001 ####[facility] [address] [place], [address] Clarity (U) Normal Clear [facility] Comment on above: Order Comment: CLEAN CATCH Result Comment: PT D ISCHARGED Performed By: #### L 400.0001 ####[facility] [address] [place], [address] Color (U) Normal Yellow [facility] Comment on above: Order Comment: CLEAN CATCH Result Comment: PT D ISCHARGED Performed By: #### L 400.0001 ####[facility] [address] [place], [address] EPI,SQUAMOUS Normal 0-5 [facility] Comment on above: Order Comment: CLEAN CATCH Result Comment: PT D ISCHARGED Performed By: #### L 400.0001 ####[facility] [address] [place], [address] GLUCOSE, UR Normal Normal [facility] Comment on above: Order Comment: CLEAN CATCH Result Comment: PT D ISCHARGED Performed By: #### L 400.0001 ####[facility] [address] [place], [address] KETONE UR Normal Negative [facility] Comment on above: Order Comment: CLEAN CATCH Result Comment: PT D ISCHARGED Performed By: #### L 400.0001 ####[facility] [address] [place], [address] LEUK ESTERASE Normal Negative [facility] Comment on above: Order Comment: CLEAN CATCH Result Comment: PT D ISCHARGED Performed By: #### L 400.0001 ####[facility] [address] [place], [address] Mucus Ql (Urine sed) Normal [facility] Comment on above: Order Comment: CLEAN CATCH Result Comment: PT D ISCHARGED Performed By: #### L 400.0001 ####[facility] [address] [place], [address] Nitrite Ql (U) Normal Negative [facility] Comment on above: Order Comment: CLEAN CATCH Result Comment: PT D ISCHARGED Performed By: #### L 400.0001 ####[facility] [address] [place], [address] OCCULT BLOOD-UR Normal Negative [facility] Comment on above: Order Comment: CLEAN CATCH Result Comment: PT D ISCHARGED Performed By: #### L 400.0001 ####[facility] [address] [place], [address] pH UR Normal 5.0 - 8.0 [facility] Comment on above: Order Comment: CLEAN CATCH Result Comment: PT D ISCHARGED Performed By: #### L 400.0001 ####[facility] [address] [place], [address] PROT DIPSTX Normal Negative [facility] Comment on above: Order Comment: CLEAN CATCH Result Comment: PT D ISCHARGED Performed By: #### L 400.0001 ####[facility] [address] [place], [address] RBC Normal 0-5 [facility] Comment on above: Order Comment: CLEAN CATCH Result Comment: PT D ISCHARGED Performed By: #### L 400.0001 ####[facility] [address] [place], [address] SP.GR. DIPSTX Normal 1.002-1.030 [facility] Comment on above: Order Comment: CLEAN CATCH Result Comment: PT D ISCHARGED Performed By: #### L 400.0001 ####[facility] [address] [place], [address] UR Preservative Normal [facility] Comment on above: Order Comment: CLEAN CATCH Result Comment: PT D ISCHARGED Performed By: #### L 400.0001 ####[facility] [address] [place], [address] UROBILI Normal Normal [facility] Comment on above: Order Comment: CLEAN CATCH Result Comment: PT D ISCHARGED Performed By: #### L 400.0001 ####[facility] [address] [place], [address] WBC Normal 0-5 [facility] Comment on above: Order Comment: CLEAN CATCH Result Comment: PT D ISCHARGED Performed By: #### L 400.0001 ####[facility] [address] [place], [address] Lipaseon 12-09-2023 Lipase [Catalytic activity/Vol] 58 U/L Normal 13-75 [facility] Comment on above: Result Comment: Nagi nelson note:LIPASE revised reference range effective 22.New Lipase methodology. Expected to produce lower valuesthan the previous assay method.NEW Reference Range: 13 - 75 U/L Performed By: #### L 501.2450, L500.3400 ####[facility] [address] [place], [address] Liver Profileon 12-09-2023 Albumin [Mass/Vol] 3.5 g/dL Normal 3.2-5.0 [facility] Comment on above: Performed By: #### L 501.2450, L500.3400 ####[facility] [address] [place], [address] ALK P 70 U/L Normal 45-117 [facility] Comment on above: Performed By: #### L 501.2450, L500.3400 ####[facility] [address] [place], [address] ALT [Catalytic activity/Vol] 35 U/L Normal 16-61 [facility] Comment on above: Performed By: #### L 501.2450, L500.3400 ####[facility] [address] [place], [address] AST [Catalytic activity/Vol] 31 U/L Normal 15-37 [facility] Comment on above: Performed By: #### L 501.2450, L500.3400 ####[facility] [address] [place], [address] Bilirubin [Mass/Vol] 0.70 mg/dL Normal 0.20-1.00 [facility] Comment on above: Result Comment: For patients on eltrombopag therapy, use of Dimension [place] TBIL is not recommended. Performed By: #### L 501.2450, L500.3400 ####[facility] [address] [place], [address] Bilirubin.direct [Mass/Vol] 0.25 mg/dL Normal 0.00-0.30 [facility] Comment on above: Performed By: #### L 501.2450, L500.3400 ####[facility] [address] [place], [address] Globulin (S) [Mass/Vol] 4.0 g/dL Normal 2.2-4.2 [facility] Comment on above: Performed By: #### L 501.2450, L500.3400 ####[facility] [address] [place], [address] T PROT 7.5 g/dL Normal 6.4-8.2 [facility] Comment on above: Performed By: #### L 501.2450, L500.3400 ####[facility] [address] [place], [address] Surgery Specimen Level Ibis 12-09-2023 Surgery Specimen Level IV Normal [facility] Comment on above: Performed By: #### P SUIV ####[facility] [address] [place], [address] Miscellaneous Lab Procedureo n 11-09-2023 [facility] TEST . Normal [facility] Comment on above: Order Comment: STOOL CULTURE [id number] CULTURE [id number] Result Comment: Salm onella/Shigella Screen Final Report No Salmonella or Shigella recovered.Campylobacter Culture Final Report No Campylobacter species isolatedE coli Shiga Toxin EIA Final Report Negative TESTING PERFORMED AT [facility]. ORIGINAL REPORT ON FILE IN LAB CONTAINS ADDITIONAL TEST SITE INFORMATION. ____ Performed By: #### M 100.7900, M600.5000, L801.1541 ####[facility] [address] [place], [address] Ova and Parasites 8623on OP Normal [facility] Comment on above: Performed By: #### M 100.7900, M600.5000, L801.1541 ####[facility] [address] [place], [address] Abdomen/Pelvis WITH Contrast on 11-03-2023 Abdomen/Pelvis WITH Contrast Normal [facility] CREATININE FINGERSTICKon CREATININE WB < 1.0 Normal 0.70-1.30 [facility] Comment on above: Performed By: #### L 9100.0200 ####[facility] [address] [place], [address] EGFR WB > 60.0000 Normal >60 [facility] Comment on above: Performed By: #### L 9100.0200 ####[facility] [address] [place], [address] Stool Occult Blood iFOBon STOB Negative Normal [facility] Comment on above: Performed By: #### M 100.7900, M600.5000, L801.1541 ####[facility] [address] [place], [address] PSA,Total - Annual Screenon 10-25-2023 PSA,TOT SCREEN 0.83 ng/mL Normal 0.00-4.00 [facility] Comment on above: Result Comment: This test was performed using the TPSA assay method for [employer] chemistry system. Values obtained with differentassay methods cannot be used interchangably.When changing PSA assays in the course of monitoring apatient, additional sequential testing should be carriedout to confirm baseline values. Performed By: #### L 501.9910 ####[facility] [address] [place], [address] Chiropractic Reporton 2023 Chiropractic Report Normal [facility] Chiropractic Reporton 2023 Chiropractic Report Normal [facility] Chiropractic Reporton 2023 Chiropractic Report Normal [facility] Chiropractic Reporton 2023 Chiropractic Report Normal [facility] PROGRESSon 04-01-2018 Protein mass conc HNO ID: [id number] Author: Ki Galaviz Service: (none) Author Type: Physician Type: Progress Notes Filed: 04/01/2018 9:54 AM Note Text: OPERATIVE NOTATION FOR [facility] SURGICAL PROCEDURE. March 17, 2018 Brian Segura 1950 [id number] male PROCEDURE: EGD WITH BIOPSY - [id number] SURGEON: Baljit Galaviz M.D. FACS [employer]ER: None DEPT: WQ PROVIDER: [id number] Galaviz MD POS: [id number] DIAGNOSIS: (K92.0) Hematemesis, presence of nausea not [...] Clean Contaminated Operative note dictated in the [facility] dictation system. Ki Galaviz MD Normal [facility] Encounters Encounter Date Encounter Type Care Provider Facility Start: 07-10-2024 End: 07-10-2024 [place] [place]: 07-05-2024 End: 07-05-2024 ambulatory [place] [place]: 06-21-2024 End: 06-21-2024 ambulatory Alfred CornejoLynn Facility:[facility] Start: 06-07-2024 End: 06-07-2024 Emergency department patient visit Brock Jose Facility:[facility] Start: 05-28-2024 End: 05-28-2024 Emergency department patient visit Alfred Bailey Facility:[facility] Start: 05-26-2024 End: 05-26-2024 Emergency department patient visit Torey Multani Facility:[facility] Start: 05-21-2024 ambulatory Romina Flahertya OLS Facili ty:[facility] Start: 04-30-2024 ambulatory Romina Reynolda OLS Facili ty:[facility] Start: 04-22-2024 End: 04-27-2024 ambulatory David Cespedes Facility:[facility] Start: 03-07-2024 End: 03-07-2024 Emergency department patient visit Alfred Bailey Facility:[facility] Start: 02-29-2024 End: 02-29-2024 ambulatory Alfred CornejoLynn Facility:[facility] Start: 02-20-2024 End: 02-20-2024 Emergency department patient visit Alfred Bailey Facility:[facility] Start: 02-03-2024 End: 02-03-2024 ambulatory Alfred Bailey Facility:[facility] Start: 01-27-2024 End: 01-27-2024 ambulatory Vishnu Vivek Facility:[facility] Start: 01-27-2024 End: 01-27-2024 [facility] Start: 12-30-2023 End: 12-30-2023 ambulatory Vishnu Doyle Facility:[facility] Start: 12-18-2023 End: 12-19-2023 Emergency department patient visit Alfred Bailey Facility:[facility] Start: 12-09-2023 End: 12-09-2023 ambulatory Alfred Bailey Facility:[facility] Start: 11-03-2023 End: 11-03-2023 ambulatory Alfred CornejoLynn Facility:[facility] Start: 10-28-2023 End: 10-28-2023 ambulatory Alfred CornejoLynn Facility:[facility] Start: 10-25-2023 End: 10-25-2023 ambulatory Annie Pyle Facility:[facility] Start: 08-04-2023 End: 08-04-2023 ambulatory Milena Smith Facility:[facility] Start: 07-28-2023 End: 07-28-2023 ambulatory Alfred Bailey Facility:[facility] Start: 07-20-2023 End: 07-20-2023 ambulatory Milena Smith Facility:[facility] Start: 07-13-2023 End: 07-13-2023 ambulatory Milena Smith Facility:[facility] Start: 04-13-2023 End: 04-14-[address] WILLIE BLANK MD Facility:[facility] Start: 04-13-2023 End: 04-13-[address] WILLIE BLANK MD [facility] Procedures Date Procedure Procedure Detail Performing Clinician Start: 03-24-[address] WILLIE BLANK MD Arthroscopy knee med gnostic w/wo synovial bx spx DR WILLIE BLANK MD Comment on above: right Arthroscopy of knee DR WILLIE BLANK MD Entire knee region ( body structure) DR WILLIE BLANK MD Comment on above: arthroscopic Esophagogastroduodenoscopy Dwain BLANK MD Tonsillectomy DR WILLIE BLANK MD Immunizations Immunization Date Immunization Notes Care Provider Fa [facility] 07-10-2013 pneumococcal polysaccharide vaccine, [address] WILLIE BLANK MD [facility] Payers Date Payer Category Payer Self-pay 2023 Unknown [id number] Unknown [id number] 2.16.8 [id number] Unknown [id number] 2.16.8 [id number] Unknown [id number] 2.16.8 [id number] Unknown [id number] 2.16.8 [id number] Unknown [id number] 2.16.8 [id number] Unknown [id number] 2.16.8 [id number] Unknown [id number] 2.16.8 [id number] Unknown [id number] 2.16.8 [id number] Unknown [id number] 2.16.8 [id number] Unknown [id number] 2.16.8 40.1.189309.3.579.2.462 Unknown [id number] 2.16.8 40.1.380503.3.579.2.462 Unknown [id number] 2.16.8 40.1.566562.3.579.2.462 Unknown [id number] 2.16.8 40.1.179608.3.579.2.462 Unknown [id number] 2.16.8 40.1.245330.3.579.2.462 Unknown [id number] 2.16.8 40.1.125051.3.579.2.462 Unknown [id number] 2.16.8 40.1.795914.3.579.2.462 Unknown [id number] 2.16.8 40.1.257418.3.579.2.462 Unknown [id number] 2.16.8 40.1.184215.3.579.2.462 Unknown [id number] 2.16.8 40.1.069203.3.579.2.462 Unknown [id number] 2.16.8 [id number] Unknown [id number] 2.16.8 [id number] Unknown [id number] 2.16.8 [id number] Unknown [id number] 2.16.8 40.1.518021.3.579.2.462 Unknown [id number] 2.16.8 40.1.440426.3.579.2.462 Unknown [id number] 2.16.8 40.1.083179.3.579.2.462 Unknown [id number] 2.16.8 40.1.975166.3.579.2.462 Unknown [id number] 2.16.8 40.1.363364.3.579.2.462 Unknown [id number] 2.16.8 40.1.425129.3.579.2.462 Unknown [id number] 2.16.8 40.1.376771.3.579.2.462 Unknown [id number] 2.16.8 40.1.251901.3.579.2.462 Unknown [id number] 2.16.8 40.1.171787.3.579.2.462 Unknown [id number] 2.16.8 40.1.090326.3.579.2.462 Unknown [id number] 2.16.8 [id number] Social History Date Type Detail Facility Tobacco smoking status Ex-smoker (finding ) [facility] Sex Assigned At Male [facility] Discharge summary note 04-27-2024 Note Date & Type Note Facility 04-27-2024 Note [facility] Consultation note 04-24-2024 Note Date & Type Note Facility 04-24-2024 Note [facility] Clinical Note 04-13-2023 Note Date & Type Note Facility 04-13-2023 Note Sinus rhythm Probable left atrial enlargement Anteroseptal infarct, age indeterminate Electronic Signature: NEVILLE UNDERWOOD MD 04/13/2023 16:41:28 [facility] Evaluation + Plan note Note Date & Type Note Facility Evaluation + Plan note No data available for this section [facility] Hospital Discharge instructions Note Date & Type Note Facility Hospital Discharge instructions No data available for this section [facility] Progress note Note Date & Type Note Facility Progress note No data available for this section [facility] Summary Purpose Family History No Family History Records Found No data available for this section No Family History Records FoundNo Family History Records Found Advance Directives No Advanced Directives Records FoundNo Advanced Directives Records FoundNo Advanced Directives Records Found Procedure Findings Note Operative Note (Enc) (GENSWS ) Progress Notes: Ki Galaviz MD 04/01/2018 9:54 AM Signed OPERATIVE NOTATION FOR [facility] SURGICAL PROCEDURE. March 17, 2018 Brian Segura 1950 [id number] male PROCEDURE: EGD WITH BIOPSY - [id number] SURGEON: Baljit Galaviz M.D. FACS [employer]ER: None DEPT: WQ PROVIDER: [id number] Galaviz MD POS: [id number] DIAGNOSIS: (K92.0) Hematemesis, presence of nausea not [...] Clean Contaminated Operative note dictated in the [facility] dictation sys (more content not included)... Additional Source Comments (unrecognized sect ion and content) No Status Records FoundNo Status Records FoundNo Status Records Found INFORMATION SOURCE (unrecogn ized section and content) DATE CREATED AUTHOR 04/01/2018 [facility] DATE CREATED AUTHOR AUTHOR'S ORGANIZ ATION 04/14/2023 [facility] ([place]) DATE CREATED AUTHOR AUTHOR'S ORGANIZ ATION 07/11/2024 [facility] Patient Care team informatio n (unrecognized section and content) Care Team Personnel Name: KI LANZA JR, MD Member Role: Primary Care Physician Address: Address: [address] [place] [address] [address] [place], [place] [address] Care Team Related Persons Name: URIEL SEGURA Address: [address] [address] US FOR RECORDS PERTAINING TO PATIENTS WHO ARE [...] BE BASED ON THE PRIMARY CLINICAL RECORDS. [facility] [email or web address] [facility]. provides no warranty or guarantee of the accuracy or completeness of information in this document.
[2024-07-14] MEDS: Ondansetron 4 MG/2 ML Vial IV (14:22)
[2024-07-14] MEDS: Lorazepam 2 MG/ML WCH Syringe 0.5 MG IV (14:22)
[2024-07-14] MEDS: Famotidine 200 MG/20 ML MDV 20 MG in 0.9% Normal Saline (Pres. free 8 ML 300 MG IV (14:22)
[2024-07-14] MEDS: DiphenhydrAMINE 25 MG, ChlorproMAZINE 25 MG in 0.9% Normal Saline (100mL Bag) 100 ML 203 MG IV (14:51)
[2024-07-14 15:00] VITALS: BP 140/68; PULSE 91; RESP 28; O2SAT 96
[2024-07-14 15:48] VITALS: BP 140/68; PULSE 91; RESP 27; O2SAT 95
[2024-07-14 16:00] VITALS: BP 128/64; PULSE 89; RESP 25; O2SAT 95
--- NOTE | 2024-07-14 16:23 | EKG12_ITS ---
Test Reason : ARRYTH Blood Pressure : */* mmHG Vent. Rate : 100 BPM Atrial Rate : 100 BPM P-R Int : 152 ms QRS Dur : 84 ms QT Int : 400 ms P-R-T Axes : 40 39 50 degrees QTcB Int : 516 ms Normal sinus rhythm RSR' or QR pattern in V1 suggests right ventricular conduction delay Borderline Confirmed by Elías Fenton ([id number]), sound editor MJ MORALES ([id number]) on 07/16/2024 9:21:26 AM Referred By: Confirmed By: Elías Fenton
[2024-07-14 16:29] LABS: Absolute Lymphocyte Count 0.84 X10^3/uL (0.83-4.51); Basophil# 0.04 X10^3/uL; Basophil% 0.4 % (0-1); Eosinophil# 0.01 X10^3/uL; Eosinophils% 0.1 % (0-5); Hematocrit 37.2 % (40-54); Hemoglobin 13.2 g/dL (13.0-16.5); Lymphocyte # 0.84 X10^3/ul (0.83-4.51); Lymphocyte % 8.9 % (19-41); Mean Corp Hgb Conc 35.5 g/dL (32-36); Mean Corpuscular Volume 90.3 fL (80-94); Mean Platelet Vol. 9.9 fl (6.2-12.0); Monocyte# 0.49 X10^3/uL; Monocyte% 5.2 % (0-10); NRBC Flagged by Analyzer 0 % (0-5); Neutrophil # 8.04 X10^3/uL (2.7-7.7); Platelet Count 221 K/mm3 (150-450); RBC Distribution Width CV 12.9 % (11.6-14.6); RBC Distribution Width SD 42.5 fl (35.1-43.9); Red Blood Count 4.12 M/mm3 (4.6-6.2); White Blood Count 9.5 K/mm3 (4.4-11.0)
[2024-07-14] MEDS: Haloperidol Lactate 5 MG/ML Vial 2 MG IV (16:29)
[2024-07-14] MEDS: 0.9% Normal Saline (500mL Bag) 500 ML 999 ML IV (16:30)
[2024-07-14 16:49] LABS: Lactic Acid 1.4 mmol/L (0.0-2.0)
[2024-07-14 17:00] VITALS: BP 127/65; PULSE 96; RESP 24; O2SAT 90
[2024-07-14 17:16] LABS: ALB/GLOB Ratio 1.2 RATIO (0.9-2.4); AST(SGOT) 26 U/L (<=37); Alanine Aminotransfer ALT/SGPT 14 U/L (<=46); Albumin, Serum 3.8 g/dL (3.4-4.8); Alkaline Phosphatase 89 U/L (40-129); Anion Gap 12 (5-15); BUN 10 mg/dL (4-19); Calcium,Total 8.9 mg/dL (7.6-11.0); Chloride 101 mmol/L (98-108); Creatinine, Serum 0.74 mg/dL (0.70-1.20); EST Glomerular Filtration Rate 94 (>60); Globulin 3.1 g/dL (2.2-4.2); Glucose 125 mg/dL (70-99); Protein, Total 6.9 g/dL (5.9-8.4); Sodium Level 140 mmol/L (133-145); Total Bilirubin 0.41 mg/dL (0.00-1.30)
[2024-07-14 18:37] VITALS: BP 127/65; PULSE 96; RESP 24; TEMP 36.2; O2SAT 90
== END 2024-07-14 19:31 | disposition home or self-care (01) ==
PROVIDERS: Emergency Medicine; Emergency Provider Emergency Medicine; PCP Family Medicine; Visit Provider Emergency Medicine
DX: R11.15 Cyclical vomiting syndrome unrelated to migraine (principal); J44.9 Chronic obstructive pulmonary disease, unspecified; K21.9 Gastro-esophageal reflux disease without esophagitis; K58.9 Irritable bowel syndrome, unspecified; I10 Essential (primary) hypertension; Z87.891 Personal history of nicotine dependence; Z79.899 Other long term (current) drug therapy; F41.9 Anxiety disorder, unspecified
CPT/HCPCS: 80053; 83605; 85025; 93005; 96361; 96365; 96375; 99283; A4216; J2405

== ENCOUNTER 2024-07-25 19:41 | Emergency (ER) | payer MEDICARE, SELFPAY ==
[2024-07-25 19:42] VITALS: BP 142/72; PULSE 96; RESP 20; TEMP 36.7; O2SAT 97
[2024-07-25] MEDS: 0.9% Normal Saline (1000mL) 1,000 ML 1000 ML IV (21:12)
[2024-07-25 21:13] VITALS: BMI 38.9
[2024-07-25] MEDS: Ondansetron 4 MG/2 ML Vial IV (21:13)
[2024-07-25] MEDS: Lorazepam 2 MG/ML WCH Syringe 0.5 MG IV (21:13)
[2024-07-25] MEDS: Famotidine 200 MG/20 ML MDV 20 MG in 0.9% Normal Saline (Pres. free 8 ML 300 MG IV (21:13)
[2024-07-25 21:16] VITALS: BP 140/69; PULSE 92; RESP 18; O2SAT 94
[2024-07-25] MEDS: DiphenhydrAMINE 25 MG, ChlorproMAZINE 25 MG in 0.9% Normal Saline (100mL Bag) 100 ML 203 MG IV (22:27)
--- NOTE | 2024-07-25 22:41 | EX.ED.DYSGE1 ---
HPI History of Present Illness Chief Complaint: Nausea/Vomiting Informant: patient Onset/Context/Timing Onset: Today Context: Sudden Onset Timing: Intermittent Quality: Predominantly dry heaves Location: GI Current Severity: Moderate Worsened by: Patient with history of cyclic vomiting Relieved by: nothing Associated Symptoms Associated Symptoms: Thirst and dry mouth and decreased urine output Narrative Narrative: Patient is a 74-year-old male. He has history of cyclic vomiting. Patient was seen July 14 by me for intractable cyclic vomiting with nausea, he also was seen in the emergency room on June 07, May 28, May 26 and April 22 for nausea vomiting. He presents stating he needs his cocktail. He is having significant mount of nausea with initially vomiting now dry heaves. He denies cannabis use. He denies fever, chills night sweats. He denies headache, double vision, blurred vision or loss of vision. He denies ringing in his ears or decreased hearing. He denies chest pain or shortness of breath. He denies abdominal pain. He denies constipation or diarrhea. He denies urologic symptoms. Patient has a past medical history of pulmonary embolus, GERD, hypertension, hypothyroidism, COPD and cyclic vomiting. Prior similar symptoms: Yes Recent Illness/Hospitalization: Yes [facility] Medical History Strain of right psoas muscle Acute pain of right hip Fall Alcohol abuse Alcohol withdrawal Basal cell carcinoma of anterior chest Wears glasses Wears dentures Depression Anxiety Alcohol use Arthritis History of renal disease Back pain Injury of head and neck History of ulceration History of IBS History of diverticulitis Gastric reflux CPAP (continuous positive airway pressure) dependence Former smoker COPD (chronic obstructive pulmonary disease) Shortness of breath on exertion History of pain when walking History of edema History of stress test Encounter for screening for COVID-19 Chest wall contusion (~12/18/20) HTN (hypertension) Home Medications ?Medication ?Instructions ?Recorded ?Last Taken ?Type lisinopril 20 mg tablet 20 mg PO BID blood pressure 03/16/18 05/27/24 History pantoprazole 40 mg tablet,delayed 40 mg PO BID reflux 09/07/19 05/27/24 History release albuterol sulfate 2.5 mg/3 mL 2.5 mg inhalation Q6H PRN 05/18/23 Unknown History (0.083 %) solution for nebulization shortness of breath or wheezing fluvoxamine 100 mg tablet 100 mg PO QHS 05/18/23 05/27/24 History amlodipine 5 mg tablet 5 mg PO DAILY 05/24/23 05/27/24 History omeprazole 40 mg capsule,delayed 40 mg PO DAILY 12/30/23 05/27/24 History release ondansetron 4 mg disintegrating 4 mg PO Q8H PRN Nausea 04/22/24 Unknown History tablet promethazine 25 mg tablet 25 mg PO TID PRN PRN nausea 04/23/24 Unknown History acetaminophen 325 mg tablet 650 mg (2 x 325 mg) PO Q4H PRN PRN 04/27/24 Unknown Rx Fever, pain -11/16 #0 tabs calcium carbonate 500 mg (2.5 x 200 mg calcium (500 04/27/24 Unknown Rx mg)) PO TIDCM PRN DYSPEPSIA/INDIGESTION #0 tabs lorazepam 0.5 mg tablet 0.5 mg PO Q6H PRN PRN Anxiety #8 04/27/24 05/27/24 Rx tabs sennosides 8.6 mg-docusate sodium 1 tab PO DAILY #1 TAB 04/27/24 Unknown Rx 50 mg tablet (Stimulant Laxative Plus) doxepin 10 mg capsule 10 - 20 mg PO QHS PRN PRN insomnia 05/28/24 05/27/24 History ibuprofen 800 mg tablet 800 mg PO DAILY 05/28/24 05/27/24 History ondansetron 4 mg disintegrating 4 mg PO Q6H PRN nausea and 05/28/24 Unknown Rx tablet vomiting #10 tabs sodium chloride 1,000 mg soluble 1,000 mg PO DAILY 5 days #5 tabs 06/07/24 Unknown Rx tablet metoclopramide HCl 5 mg tablet 5 mg PO Q8H PRN nausea and 07/14/24 Unknown Rx (Reglan) vomiting 7 days #20 tabs Allergy/AdvReac Type Severity Reaction Status Date / Time amoxicillin Allergy doesnt Verified 07/25/24 19:45 rememeber fluoxetine (From Prozac) AdvReac Other Verified 07/25/24 19:45 Family History Mother Myocardial infarction Hypertension Father Cancer Hypertension Surgical History Hx of colonoscopy Hx of blepharoplasty Hx of esophagogastroduodenoscopy History of eye surgery Social History household members: none Smoking Status: Former smoker how long ago did patient quit smoking: quit 20 yr ago alcohol intake: current Alcohol type: hard liquor substance use type: does not use additional social history: personal hx of PEs ROS ROS ED Constitutional Constitutional ED: Denies chills, fever(s), subjective, sweats or weight loss Eyes Eyes: Denies blurry vision or change in vision ENT ENT ED: Denies ear pain, rhinorrhea or sore throat Cardiovascular Cardiovascular: Denies chest pain, palpitations or racing heartbeat Respiratory/Chest Respiratory/Chest: Denies cough, dyspnea or dyspnea on exertion Gastrointestinal Gastrointestinal: Reports nausea and vomiting; Denies abdominal pain, constipation, diarrhea or melena Genitourinary Genitourinary ED: Reports other Details: Endorses decreased urine output ; Denies dysuria or urinary frequency Musculoskeletal Musculoskeletal: Denies arthralgias or myalgias Integumentary Denies abscess, Abrasions or rash Neurologic Neurologic: Reports weakness; Denies headache(s) or paresthesias Psychiatric Psychiatric: Denies anxiety or depression Hematologic/Lymphatic Hematologic/Lymphatic: Reports systems reviewed and no addt'l complaints, except as documented EXAM Physical Exam Const Vital Signs: 07/25/24 19:42 07/25/24 21:16 Temperature 98.0 F Temperature Source Temporal Pulse Rate 96 92 Respiratory Rate 20 H 18 Blood Pressure 142/72 H 140/69 H Blood Pressure Mean 95 92 Pulse Ox 97 94 Oxygen Delivery Method Room Air Room Air Positive well nourished and well developed Constitutional Narrative: BMI is 39.0. He appears ill. He is actively vomiting. General Appearance ED: well developed; Negative for cyanotic, diaphoretic or pallor HEENT Reports moist mucous membranes HEENT Narrative: Head is atraumatic and normocephalic. Ears normal. Nares patent. Posterior pharynx is normal. Eyes PERRL and EOMs intact bilaterally General Eye ED: Negative for pale conjunctiva or scleral icterus Neck no lymphadenopathy, supple and no JVD Chest Wall inspection of chest normal and palpation of chest normal Resp normal respiratory effort and clear to auscultation bilaterally Cardio regular rate, regular rhythm, S1 normal heart sound, S2 normal heart sound and no murmurs GI normal to inspection, nondistended, normoactive bowel sounds, non-distended and no masses; Negative for non-tender or hepatosplenomegaly Palpation: tender periumbilical Back/Spine no CVA tenderness Extremity normal to inspection Neuro oriented x3, CN's II-XII intact bilaterally and no sensory deficits noted Motor Exam: strength 5/5 throughout Psych mental status grossly normal Skin no rashes or lesions noted, no wounds and skin turgor normal General Skin Exam: Negative for jaundice or pallor MDM MDM MDM Narrative Medical decision making narrative: Patient with cyclic vomiting. Patient initially received Pepcid, Ativan and Zofran. He still had symptoms. He received mixture of 25 diphenhydramine and 25 mg of Thorazine IV piggyback. When he was reassessed he reported resolution of his symptoms and passed p.o. challenge. Blood work was not obtained since he is presented with the same presentation several times over the past several months. Prior records were reviewed as well as labs. History & Record Review Additional record(s) reviewed:: Prior ED visit and Prior labs Treatment and Re-Evaluation :: Since patient's symptoms resolved and he passed p.o. challenge he was discharged to home in stable and improved condition. Discharge Plan Triage Chief Complaint: Nausea/Vomiting ED Provider: Guicho Omalley Dx/Rx/DC Orders Clinical Impression: Intractable cyclical vomiting with nausea, GERD (gastroesophageal reflux disease), Hypertension, Acute dehydration Instructions: ED Cyclic Vomiting Syndrome Prescriptions: No Action amlodipine 5 mg tablet 5 mg PO DAILY omeprazole 40 mg capsule,delayed release(DR/EC) 40 mg PO DAILY lisinopril 20 MG tablet 20 mg PO BID pantoprazole 40 MG tablet 40 mg PO BID sodium chloride 1,000 mg tablet,soluble 1,000 mg PO DAILY 5 Days Qty: 5 0RF albuterol sulfate 2.5 mg /3 mL (0.083 %) solution for nebulization 2.5 mg inhalation Q6H PRN (Reason: shortness of breath or wheezing) fluvoxamine 100 mg tablet 100 mg PO QHS ondansetron 4 mg tablet,disintegrating 4 mg PO Q8H PRN (Reason: Nausea) promethazine 25 mg tablet 25 mg PO TID PRN PRN (Reason: nausea) acetaminophen 325 mg Tablet 650 mg PO Q4H PRN PRN (Reason: Fever, pain -11/16) Qty: 0 0RF lorazepam 0.5 mg Tablet 0.5 mg PO Q6H PRN PRN (Reason: Anxiety) Qty: 8 0RF calcium carbonate 200 mg calcium (500 mg) Tablet,Chewable 500 mg PO TIDCM PRN (Reason: DYSPEPSIA/INDIGESTION) Qty: 0 0RF sennosides-docusate sodium [Stimulant Laxative Plus] 8.6-50 mg Tablet 1 tab PO DAILY Qty: 1 0RF ibuprofen 800 mg tablet 800 mg PO DAILY Rx Instructions: 800 mg orally; family states pt has been taking more than 4xd doxepin 10 mg capsule 10 - 20 mg PO QHS PRN PRN (Reason: insomnia) ondansetron 4 mg tablet,disintegrating 4 mg PO Q6H PRN (Reason: nausea and vomiting) Qty: 10 0RF metoclopramide HCl [Reglan] 5 mg tablet 5 mg PO Q8H PRN (Reason: nausea and vomiting) 7 Days Qty: 20 0RF Primary Care Provider: Alfred Bailey Referrals: Alfred Bailey DO [Primary Care Provider] - 3-5 Days Print Language: Nepali Disposition Disposition: Home, Self Care
[2024-07-25 23:41] VITALS: BP 138/70; PULSE 92; RESP 18; TEMP 37; O2SAT 94
== END 2024-07-25 23:42 | disposition home or self-care (01) ==
PROVIDERS: Emergency Provider Emergency Medicine; PCP Family Medicine; Visit Provider Emergency Medicine
DX: R11.15 Cyclical vomiting syndrome unrelated to migraine (principal); J44.9 Chronic obstructive pulmonary disease, unspecified; E86.0 Dehydration; K21.9 Gastro-esophageal reflux disease without esophagitis; I10 Essential (primary) hypertension; Z87.891 Personal history of nicotine dependence; Z79.899 Other long term (current) drug therapy; F32.A Depression, unspecified; F41.9 Anxiety disorder, unspecified
CPT/HCPCS: 96361; 96365; 96375; 99282; A4216; J2405

== ENCOUNTER 2024-10-01 03:44 | Emergency (ER) | payer MEDICARE, SELFPAY ==
[2024-10-01 03:44] VITALS: BP 119/73; PULSE 106; RESP 18; TEMP 36.6; O2SAT 94; BMI 39.6
[2024-10-01] MEDS: 0.9% Normal Saline (1000mL) 1,000 ML 999 ML IV (03:56)
--- NOTE | 2024-10-01 04:05 | EX.ED.DYSGE1 ---
HPI History of Present Illness Chief Complaint: Nausea/Vomiting Informant: patient and EMS Narrative Narrative: Patient is a 74-year-old male with past medical history of hypertension and cyclic vomiting syndrome. He was seen on July 14 and July 25 secondary to this. At that time he received Ativan and Zofran followed by Paolo and Aicha. According to the chart after receiving these medications he reported feeling better. The patient states that he is seeing multiple specialists and no one can figure out why he develops sudden bouts of nausea and/or vomiting. He states however if he is not treated the symptoms can last multiple hours or days. He states has been no fevers or chills or known sick contact. He states the symptoms started roughly just a few hours ago. He reports he has been having nausea with dry heaves but no true vomiting. He states this feels similar nature to his past bouts of cyclic vomiting syndrome and therefore in order to ensure treatment and resolution EMS was called and he was brought in for evaluation [facility] Medical History Strain of right psoas muscle Acute pain of right hip Fall Alcohol abuse Alcohol withdrawal Basal cell carcinoma of anterior chest Wears glasses Wears dentures Depression Anxiety Alcohol use Arthritis History of renal disease Back pain Injury of head and neck History of ulceration History of IBS History of diverticulitis Gastric reflux CPAP (continuous positive airway pressure) dependence Former smoker COPD (chronic obstructive pulmonary disease) Shortness of breath on exertion History of pain when walking History of edema History of stress test Encounter for screening for COVID-19 Chest wall contusion (~12/18/20) HTN (hypertension) Home Medications ?Medication ?Instructions ?Recorded ?Last Taken ?Type lisinopril 20 mg tablet 20 mg PO BID blood pressure 03/16/18 05/27/24 History pantoprazole 40 mg tablet,delayed 40 mg PO BID reflux 09/07/19 05/27/24 History release albuterol sulfate 2.5 mg/3 mL 2.5 mg inhalation Q6H PRN 05/18/23 Unknown History (0.083 %) solution for nebulization shortness of breath or wheezing fluvoxamine 100 mg tablet 100 mg PO QHS 05/18/23 05/27/24 History amlodipine 5 mg tablet 5 mg PO DAILY 05/24/23 05/27/24 History omeprazole 40 mg capsule,delayed 40 mg PO DAILY 12/30/23 05/27/24 History release ondansetron 4 mg disintegrating 4 mg PO Q8H PRN Nausea 04/22/24 Unknown History tablet promethazine 25 mg tablet 25 mg PO TID PRN PRN nausea 04/23/24 Unknown History acetaminophen 325 mg tablet 650 mg (2 x 325 mg) PO Q4H PRN PRN 04/27/24 Unknown Rx Fever, pain -11/16 #0 tabs calcium carbonate 500 mg (2.5 x 200 mg calcium (500 04/27/24 Unknown Rx mg)) PO TIDCM PRN DYSPEPSIA/INDIGESTION #0 tabs lorazepam 0.5 mg tablet 0.5 mg PO Q6H PRN PRN Anxiety #8 04/27/24 05/27/24 Rx tabs sennosides 8.6 mg-docusate sodium 1 tab PO DAILY #1 TAB 04/27/24 Unknown Rx 50 mg tablet (Stimulant Laxative Plus) doxepin 10 mg capsule 10 - 20 mg PO QHS PRN PRN insomnia 05/28/24 05/27/24 History ibuprofen 800 mg tablet 800 mg PO DAILY 05/28/24 05/27/24 History ondansetron 4 mg disintegrating 4 mg PO Q6H PRN nausea and 05/28/24 Unknown Rx tablet vomiting #10 tabs sodium chloride 1,000 mg soluble 1,000 mg PO DAILY 5 days #5 tabs 06/07/24 Unknown Rx tablet metoclopramide HCl 5 mg tablet 5 mg PO Q8H PRN nausea and 07/14/24 Unknown Rx (Reglan) vomiting 7 days #20 tabs Allergy/AdvReac Type Severity Reaction Status Date / Time amoxicillin Allergy doesnt Verified 10/01/24 03:45 rememeber fluoxetine (From Prozac) AdvReac Other Verified 10/01/24 03:45 Family History Mother Myocardial infarction Hypertension Father Cancer Hypertension Surgical History Hx of colonoscopy Hx of blepharoplasty Hx of esophagogastroduodenoscopy History of eye surgery Social History household members: none Smoking Status: Former smoker how long ago did patient quit smoking: quit 20 yr ago alcohol intake: current Alcohol type: hard liquor substance use type: does not use additional social history: personal hx of PEs ROS ROS ED Constitutional Constitutional ED: Denies chills or fever(s) Eyes Eyes: Denies change in vision ENT ENT ED: Denies rhinorrhea or sore throat Cardiovascular Cardiovascular: Denies chest pain Respiratory/Chest Respiratory/Chest: Denies cough or dyspnea Gastrointestinal Gastrointestinal: Reports nausea; Denies abdominal pain, diarrhea or vomiting Musculoskeletal Musculoskeletal: Denies back pain or myalgias Integumentary Denies rash Neurologic Neurologic: Denies headache(s) Hematologic/Lymphatic Hematologic/Lymphatic: Denies easy bleeding or easy bruising EXAM Physical Exam Const Vital Signs: 10/01/24 03:44 10/01/24 05:30 10/01/24 05:52 Temperature 97.9 F 98 F Temperature Source Oral Pulse Rate 106 H 92 64 Respiratory Rate 18 18 18 Blood Pressure 119/73 155/81 H 134/72 H Blood Pressure Mean 88 105 92 Pulse Ox 94 95 95 Oxygen Delivery Method Room Air Positive well nourished, well developed and obese General Appearance ED: well developed; Negative for pallor Nutritional Appearance: obese HEENT Reports dry mucous membranes HEENT Narrative: Normocephalic atraumatic No tongue or lip swelling no oral lesions no airway edema or compromise No secondary findings in the posterior pharynx to suggest infection Mucous membranes are dry and tacky Mouth ED: Yes dry mucous membranes Mouth: dry mucous membranes Eyes PERRL and EOMs intact bilaterally General Eye ED: Negative for scleral icterus Neck supple Resp normal respiratory effort and clear to auscultation bilaterally Cardio regular rate and regular rhythm GI non-tender, non-distended and no masses GI Narrative: Abdomen is soft nontender and nondistended with hyperactive bowel sound No voluntary guarding or rigidity or pulsatile mass No increased tympany or fluid wave No peritoneal signs Auscultation: hyperactive bowel sounds Palpation: soft Extremity Extremity Narrative: +2-3 pitting edema to the bilateral lower extremities that is equal and symmetric and chronic per patient Negative Homans' sign bilaterally Neuro oriented x3, CN's II-XII intact bilaterally and no sensory deficits noted Sensorium / Orientation: alert Motor Exam: strength 5/5 throughout Psych mental status grossly normal Skin no rashes or lesions noted and No skin turgor normal Skin Narrative: Skin turgor is increased consistent with dehydration No overlying soft tissue changes to suggest infection General Skin Exam: Negative for jaundice or pallor MDM MDM MDM Narrative Medical decision making narrative: Patient arrived to the ER with stable vitals. He reported longstanding history of bouts of nausea and vomiting with no obvious reason why. He states the symptoms came on spontaneously and only have been present for a few hours. He states he has been no known sick contacts and he denies any true vomiting but states has been recurrent dry heaves. I did review the patient's chart and he was recently seen on July 14 and July 25 for the same complaint. At that time chart reports he had improvement of his symptoms after receiving IV Ativan and Zofran followed by Thorazine and Benadryl. Secondary to this he was given IV fluid as his exam did show mild dehydration and the above medication. After receiving the medications he did report improvement of his symptoms his vitals remained stable and his abdomen soft and nonsurgical. His exam does show mild dehydration but he has been given 1 L fluid to correct this. As his symptoms only been present for a few hours I have low concern for acute kidney injury and as he does not have any abdominal pain associated with this and it is recurrent in nature I have low concern that this is related to acute pancreatitis or biliary colic. Therefore as vitals are stable abdomen soft and nonsurgical and his symptoms have improved with medication he is otherwise safe for discharge History & Record Review Discussion w/independent historian: EMS personnel and Patient Additional record(s) reviewed:: Prior ED visit Discharge Plan Triage Chief Complaint: Nausea/Vomiting ED Provider: Patrice Umaña Dx/Rx/DC Orders Clinical Impression: Cyclic vomiting syndrome, Mild dehydration, Hypertension Instructions: ED Cyclic Vomiting Syndrome Prescriptions: No Action amlodipine 5 mg tablet 5 mg PO DAILY omeprazole 40 mg capsule,delayed release(DR/EC) 40 mg PO DAILY lisinopril 20 MG tablet 20 mg PO BID pantoprazole 40 MG tablet 40 mg PO BID sodium chloride 1,000 mg tablet,soluble 1,000 mg PO DAILY 5 Days Qty: 5 0RF albuterol sulfate 2.5 mg /3 mL (0.083 %) solution for nebulization 2.5 mg inhalation Q6H PRN (Reason: shortness of breath or wheezing) fluvoxamine 100 mg tablet 100 mg PO QHS ondansetron 4 mg tablet,disintegrating 4 mg PO Q8H PRN (Reason: Nausea) promethazine 25 mg tablet 25 mg PO TID PRN PRN (Reason: nausea) acetaminophen 325 mg Tablet 650 mg PO Q4H PRN PRN (Reason: Fever, pain 1-11/16) Qty: 0 0RF lorazepam 0.5 mg Tablet 0.5 mg PO Q6H PRN PRN (Reason: Anxiety) Qty: 8 0RF calcium carbonate 200 mg calcium (500 mg) Tablet,Chewable 500 mg PO TIDCM PRN (Reason: DYSPEPSIA/INDIGESTION) Qty: 0 0RF sennosides-docusate sodium [Stimulant Laxative Plus] 8.6-50 mg Tablet 1 tab PO DAILY Qty: 1 0RF ibuprofen 800 mg tablet 800 mg PO DAILY Rx Instructions: 800 mg orally; family states pt has been taking more than 4xd doxepin 10 mg capsule 10 - 20 mg PO QHS PRN PRN (Reason: insomnia) ondansetron 4 mg tablet,disintegrating 4 mg PO Q6H PRN (Reason: nausea and vomiting) Qty: 10 0RF metoclopramide HCl [Reglan] 5 mg tablet 5 mg PO Q8H PRN (Reason: nausea and vomiting) 7 Days Qty: 20 0RF Primary Care Provider: Alfred Bailey Referrals: Alfred Bailey DO [Primary Care Provider] - Activity Restrictions/Additional Instructions: Please return to the ER should you have any further concerns or worsening of symptoms. Otherwise please continue all of your home medication as previously directed by your doctor Print Language: Kinyarwanda Disposition Disposition: Home, Self Care
[2024-10-01] MEDS: DiphenhydrAMINE 25 MG, ChlorproMAZINE 25 MG in 0.9% Normal Saline (100mL Bag) 98.5 ML 200 MG IV (04:27)
--- OUTSIDE RECORDS SUMMARY | 2024-10-01 04:54 | XMS RPT_ITS | CCD ---
Author Organization [facility]ini[facility] Care Team Providers Care Leather Drier Name Role Phone POOL MISTRY, DR KI Nelson JR Primary Care Physician ABHAY MISTRY, DR WILLIE WHITE Attending Lawrence LANZA MD, DR KI Nelson JR Primary Care Alfred Gonzalez Primary Care Unavailable Willie Blank Attending Unavailable Willie Blank Referring Unavailable Alfred Bailey Referring Unavailable Alfred Bailey Attending Unavailable Alfred Bailey Primary Care Unavailable Lynn, Alfred Primary Care Unavailable Hamburg, Annie Attending Unavailable Hamburg, Annie Referring Unavailable LynnAlfred willis Primary Care Unavailable Alfred Grijalva Attending Unavailable Sanjay Cespedesolas Cayla Consulting Unavailable Coy David F Admitting Unavailable Borrulizbet, [place] Consulting Unavailable Alfred Grijalva Consulting Unavailable LynnAlfred willis Primary Care Unavailable Shahram, Guicho Attending Unavailable Alfred Bailey Primary Care Unavailable Vishnu Doyle Attending Unavailable Vishnu Doyle Referring Unavailable LynnAlfred rodriguez Referring Unavailable LynnAlfred rodriguez Primary Care Unavailable LynnAlfred willis Attending Unavailable Alfred Bailey Primary Care Unavailable Alfred Grijalva Attending Unavailable Sanjay Cespedesolas F Consulting Unavailable Coy David F Admitting Unavailable Borrulizbet, [place] Consulting Unavailable LynnAlfred willis Primary Care Unavailable Vick Ruiz Attending Unavailable LynnAlfred willis Primary Care Unavailable OmalleyAntonioo Attending Unavailable Lynn, Alfred Primary Care Unavailable Brock Garcia Attending UnavailBrock Ortiz Referring Unavaillio e Alfred Bailey Primary Care Unavailable Vick Ruiz Attending Unavailable Alfred Bailey Primary Care Unavailable Torey Multani Attending Unavailable Lynn, Alfred Primary Care Unavailable Bogdan Grover Attending Unavailable Alfred Bailey Referring Unavailable LynnAlfred willis Attending Unavailable Lynn, Alfred Primary Care Unavailable LynnAlfred willis Attending Unavailable Lynn, Alfred Primary Care Unavailable Lynn, Alfred Referring Unavailable Lynn, Alfred Primary Care Unavailable Bandar VARGAS, Camila Lyn Attending Unavailabl e Lynn, Alfred Primary Care Unavailable Vishnu Doyle Attending Unavailable Vishnu Doyle Referring Unavailable Lynn, Alfred Primary Care Unavailable Lynn, Alfred Referring Unavailable Milena Smith Attending Unavailable Lynn, Alfred Primary Care Unavailable Romina Ballard Attending Unavailable Lynn, Alfred Primary Care Unavailable Gudla OLS, Romina Attending Unavailable Gudla OLS, Romina Referring Unavailable Lynn, Alfred Primary Care Unavailable Chino Jaimes Attending Unavailable David Cespedes Attending Unavailable [place] Rush Attending Unavailable Valentine, Alfred Referring Unavailable Lynn, Alfred Referring Unavailable Lynn, Alfred Primary Care Unavailable Milena Smith Attending Unavailable Lynn, Alfred Referring Unavailable Lynn, Alfred Primary Care Unavailable Vishnu Doyle Attending Unavailable Lynn, Alfred Referring Unavailable Lynn, Alfred Primary Care Unavailable Dosepifanio, Milena Attending Unavailable Allergies Allergy Classification Reported Allergen(s) Allergy Type Date of Onset Reaction(s) Facility (1 source) Amoxicillin; Translations: [amoxicillin] Drug Allergy [facility] (1 source) Amoxicillin Drug Allergy 07-25-2024 [facility] Repository (1 source) FLUoxetine Drug Allergy 07-25-2024 [facility] Repository Medications Current Medications Medication Drug [...] of pelvic region] Onset: 5 Episodic Other bone disease [...] of cervical region] Onset: 5 Episodic Other gastrointestinal disorders [...] disc disorders; other back problems (1 source) Radiculopathy, lumbar region; Translations: [Radiculopathy, lumbar region] Onset: 5 Episodic Sprains and strains (2 sources) Strain of muscle, fascia and tendon of right hip, initial encounter; Translations: [Strain of muscle, fascia and tendon of right hip, initial encounter] Onset: 5 Episodic Unclassified (1 source) Cyclical vomiting syndrome unrelated to migraine; Translations: [Cyclical vomiting syndrome unrelated to migraine] Onset: 5 Unclassified (1 source) Other intervertebral disc degeneration, lumbar region with discogenic back pain only; Translations: [Other intervertebral disc degeneration, lumbar region with discogenic back pain only] Onset: 5 Unclassified (1 source) Alcohol use, unspecified with withdrawal, unspecified; Translations: [Alcohol use, unspecified with withdrawal, unspecified] Onset: 5 Past or Other Problems Problem Classification Problem [...] Name Value Interpretation Reference Range Facil ity Emergency Department Summary on 07-25-2024 Emergency Department Summary Normal [facility] 12 Lead EKGon 07-14-2024 12 Lead EKG Normal [facility] CBC W/Diff, Automatedon 06-0 Absolute Lymph 0.84 X10 3/uL Normal 0.83-4.51 [facility] Comment on above: Performed By: #### L 500.4050, L100.0100 ####[facility] [address] [place], [address] Absolute Neut 8.0 X10 3/uL High 2.0-7.7 [facility] Comment on above: Performed By: #### L 500.4050, L100.0100 ####[facility] [address] [facility] [place], [address] Basophils/100 WBC (Bld) 0.4 % Normal 0-1 [facility] Comment on above: Performed By: #### L 500.4050, L100.0100 ####[facility] [address] [place], [address] Eosinophils/100 WBC (Bld) 0.1 % Normal 0-5 [facility] Comment on above: Performed By: #### L 500.4050, L100.0100 ####[facility] [address] [place], [address] Erythrocyte distribution width (RBC) [Ratio] 12.9 % Normal 11.6-14.6 [facility] Comment on above: Performed By: #### L 500.4050, L100.0100 ####[facility] [address] [place], [address] Hematocrit (Bld) [Volume fraction] 37.2 % Low 40-54 [facility] Comment on above: Performed By: #### L 500.4050, L100.0100 ####[facility] [address] [place], [address] Hemoglobin (Bld) [Mass/Vol] 13.2 g/dL Normal 13.0-16.5 [facility] Comment on above: Performed By: #### L 500.4050, L100.0100 ####[facility] [address] [place], [address] IG% 0.400 Normal 0.0-0.9 [facility] Comment on above: Result Comment: IG% - Immature Granulocytes (promyelocytes, myelocytes andmetamyelocytes) > 1% indicates that a LEFT SHIFT is Present. Performed By: #### L 500.4050, L100.0100 ####[facility] [address] [place], [address] Lymphocytes/100 WBC (Bld) 8.9 % Low 19-41 [facility] Comment on above: Performed By: #### L 500.4050, L100.0100 ####[facility] [address] [place], [address] MCH (RBC) [Entitic mass] 32.0 pg Normal 27.0-32.0 [facility] Comment on above: Performed By: #### L 500.4050, L100.0100 ####[facility] [address] [place], [address] MCHC (RBC) [Mass/Vol] 35.5 g/dL Normal 32-36 [facility] Comment on above: Performed By: #### L 500.4050, L100.0100 ####[facility] [address] [place], [address] MCV (RBC) [Entitic vol] 90.3 fL Normal 80-94 [facility] Comment on above: Performed By: #### L 500.4050, L100.0100 ####[facility] [address] [place], [address] Monocytes/100 WBC (Bld) 5.2 % Normal 0-10 [facility] Comment on above: Performed By: #### L 500.4050, L100.0100 ####[facility] [address] [place], [address] Neutrophils/100 WBC (Bld) 85.0 % High 47-70 [facility] Comment on above: Performed By: #### L 500.4050, L100.0100 ####[facility] [address] [place], [address] Nucleated RBC (Bld) [#/Vol] 0 10*3/uL Normal 0-5 [facility] Comment on above: Performed By: #### L 500.4050, L100.0100 ####[facility] [address] [place], [address] Platelet mean volume (Bld) [Entitic vol] 9.9 fL Normal 6.2-12.0 [facility] Comment on above: Performed By: #### L 500.4050, L100.0100 ####[facility] [address] [place], [address] Platelets (Bld) [#/Vol] 221 10*3/uL Normal 150-450 [facility] Comment on above: Performed By: #### L 500.4050, L100.0100 ####[facility] [address] [place], [address] RBC (Bld) [#/Vol] 4.12 10*6/uL Low 4.6-6.2 [facility] Comment on above: Performed By: #### L 500.4050, L100.0100 ####[facility] [address] [place], [address] RDW SD 42.5 fl Normal 35.1-43.9 [facility] Comment on above: Performed By: #### L 500.4050, L100.0100 ####[facility] [address] [place], [address] WBC (Bld) [#/Vol] 9.5 10*3/uL Normal 4.4-11.0 [facility] Comment on above: Performed By: #### L 500.4050, L100.0100 ####[facility] [address] [place], [address] Comprehensive Metabolic Prof [facility] 07-14-2024 Albumin [Mass/Vol] 3.8 g/dL Normal 3.4-4.8 [facility] Comment on above: Performed By: #### L 500.4050, L100.0100 ####[facility] [address] [place], [address] Albumin/Globulin [Mass ratio] 1.2 {ratio} Normal 0.9-2.4 [facility] Comment on above: Performed By: #### L 500.4050, L100.0100 ####[facility] [address] [place], [address] ALK PHOS 89 U/L Normal 40-129 [facility] Comment on above: Performed By: #### L 500.4050, L100.0100 ####[facility] [address] [place], [address] ALT [Catalytic activity/Vol] 14 U/L Normal <=46 [facility] Comment on above: Performed By: #### L 500.4050, L100.0100 ####[facility] [address] [place], [address] AST [Catalytic activity/Vol] 26 U/L Normal <=37 [facility] Comment on above: Result Comment: Hemo lysis present, Results??could be affected.?? Performed By: #### L 500.4050, L100.0100 ####[facility] [address] [place], [address] Bilirubin [Mass/Vol] 0.41 mg/dL Normal 0.00-1.30 [facility] Comment on above: Performed By: #### L 500.4050, L100.0100 ####[facility] [address] [place], [address] BUN/CRE 14.0 RATIO Normal 10-20 [facility] Comment on above: Performed By: #### L 500.4050, L100.0100 ####[facility] [address] [place], [address] Calcium [Mass/Vol] 8.9 mg/dL Normal 7.6-11.0 [facility] Comment on above: Performed By: #### L 500.4050, L100.0100 ####[facility] [address] [place], [address] Chloride [Moles/Vol] 101 mmol/L Normal 98-108 [facility] Comment on above: Performed By: #### L 500.4050, L100.0100 ####[facility] [address] [place], [address] CO2 [Moles/Vol] 27.0 mmol/L Normal 21.0-32.0 [facility] Comment on above: Performed By: #### L 500.4050, L100.0100 ####[facility] [address] [place], [address] Creatinine [Mass/Vol] 0.74 mg/dL Normal 0.70-1.20 [facility] Comment on above: Performed By: #### L 500.4050, L100.0100 ####[facility] [address] [place], [address] GAP 12 Normal 5-15 [facility] Comment on above: Performed By: #### L 500.4050, L100.0100 ####[facility] [address] [place], [address] GFR/1.73 sq M.predicted among non-blacks MDRD (S/P/Bld) [Vol rate/Area] 94 mL/min/{1.73_m2} Normal >60 [facility] Comment on above: Result Comment: mL/m in/1.73m2 CKD-EPI Creatinine Equation (2020) Performed By: #### L 500.4050, L100.0100 ####[facility] [address] [place], [address] Globulin (S) [Mass/Vol] 3.1 g/dL Normal 2.2-4.2 [facility] Comment on above: Performed By: #### L 500.4050, L100.0100 ####[facility] [address] [place], [address] Glucose [Mass/Vol] 125 mg/dL High 70-99 [facility] Comment on above: Performed By: #### L 500.4050, L100.0100 ####[facility] [address] [place], [address] Potassium [Moles/Vol] 4.0 mmol/L Normal 3.3-5.1 [facility] Comment on above: Result Comment: Hemo lysis present, Results??could be affected.?? Performed By: #### L 500.4050, L100.0100 ####[facility] [address] [place], [address] Sodium [Moles/Vol] 140 mmol/L Normal 133-145 [facility] Comment on above: Performed By: #### L 500.4050, L100.0100 ####[facility] [address] [place], [address] T PROT 6.9 g/dL Normal 5.9-8.4 [facility] Comment on above: Performed By: #### L 500.4050, L100.0100 ####[facility] [address] [place], [address] Urea nitrogen [Mass/Vol] 10 mg/dL Normal 4-19 [facility] Comment on above: Performed By: #### L 500.4050, L100.0100 ####[facility] [address] [place], [address] Emergency Department Summary on 07-14-2024 Emergency Department Summary Normal [facility] Lactic Acidon 07-14-2024 Lactate [Moles/Vol] 1.4 mmol/L Normal 0.0-2.0 [facility] Comment on above: Order Comment: Y Performed By: #### L 503.6005 ####[facility] [address] [place], [address] Chiropractic Reporton 2024 Chiropractic Report Normal [facility] Chiropractic Reporton 2024 Chiropractic Report Normal [facility] Basic Metabolic Profile (BMP )on 06-21-2024 BUN/CRE 15.6 RATIO Normal 10-20 [facility] Comment on above: Performed By: #### L 500.2500 ####[facility] [address] [place], [address] Calcium [Mass/Vol] 9.8 mg/dL Normal 7.6-11.0 [facility] Comment on above: Performed By: #### L 500.2500 ####[facility] [address] [place], [address] Chloride [Moles/Vol] 101 mmol/L Normal 98-108 [facility] Comment on above: Performed By: #### L 500.2500 ####[facility] [address] [place], [address] CO2 [Moles/Vol] 23.2 mmol/L Normal 21.0-32.0 [facility] Comment on above: Performed By: #### L 500.2500 ####[facility] [address] [place], [address] Creatinine [Mass/Vol] 0.90 mg/dL Normal 0.70-1.20 [facility] Comment on above: Performed By: #### L 500.2500 ####[facility] [address] [place], [address] GAP 13 Normal 5-15 [facility] Comment on above: Performed By: #### L 500.2500 ####[facility] [address] [place], [address] GFR/1.73 sq M.predicted among non-blacks MDRD (S/P/Bld) [Vol rate/Area] 88 mL/min/{1.73_m2} Normal >60 [facility] Comment on above: Result Comment: mL/m in/1.73m2 CKD-EPI Creatinine Equation (2020) Performed By: #### L 500.2500 ####[facility] [address] [place], [address] Glucose [Mass/Vol] 102 mg/dL High 70-99 [facility] Comment on above: Performed By: #### L 500.2500 ####[facility] [address] [place], [address] Potassium [Moles/Vol] 3.9 mmol/L Normal 3.3-5.1 [facility] Comment on above: Performed By: #### L 500.2500 ####[facility] [address] [place], [address] Sodium [Moles/Vol] 137 mmol/L Normal 133-145 [facility] Comment on above: Performed By: #### L 500.2500 ####[facility] [address] [place], [address] Urea nitrogen [Mass/Vol] 14 mg/dL Normal 4-19 [facility] Comment on above: Performed By: #### L 500.2500 ####[facility] [address] [place], [address] Basic Metabolic Profile (BMP )on 06-07-2024 BUN/CRE 17.6 RATIO Normal 10-20 [facility] Comment on above: Performed By: #### L 500.2500 ####[facility] [address] [place], [address] Calcium [Mass/Vol] 8.9 mg/dL Normal 7.6-11.0 [facility] Comment on above: Performed By: #### L 500.2500 ####[facility] [address] [place], [address] Chloride [Moles/Vol] 93 mmol/L Low 98-108 [facility] Comment on above: Performed By: #### L 500.2500 ####[facility] [address] [place], [address] CO2 [Moles/Vol] 21.2 mmol/L Normal 21.0-32.0 [facility] Comment on above: Performed By: #### L 500.2500 ####[facility] [address] [place], [address] Creatinine [Mass/Vol] 0.63 mg/dL Low 0.70-1.20 [facility] Comment on above: Performed By: #### L 500.2500 ####[facility] [address] [place], [address] ECRCL 95.23 ml/min Normal 50-250 [facility] Comment on above: Performed By: #### L 500.2500 ####[facility] [address] [place], [address] GAP 13 Normal 5-15 [facility] Comment on above: Performed By: #### L 500.2500 ####[facility] [address] [place], [address] GFR/1.73 sq M.predicted among non-blacks MDRD (S/P/Bld) [Vol rate/Area] 99 mL/min/{1.73_m2} Normal >60 [facility] Comment on above: Result Comment: mL/m in/1.73m2 CKD-EPI Creatinine Equation (2020) Performed By: #### L 500.2500 ####[facility] [address] [place], [address] Glucose [Mass/Vol] 119 mg/dL High 70-99 [facility] Comment on above: Performed By: #### L 500.2500 ####[facility] [address] [place], [address] Potassium [Moles/Vol] 3.8 mmol/L Normal 3.3-5.1 [facility] Comment on above: Performed By: #### L 500.2500 ####[facility] [address] [place], [address] Sodium [Moles/Vol] 128 mmol/L Low 133-145 [facility] Comment on above: Performed By: #### L 500.2500 ####[facility] [address] [place], [address] Urea nitrogen [Mass/Vol] 11 mg/dL Normal 4-19 [facility] Comment on above: Performed By: #### L 500.2500 ####[facility] [address] [place], [address] BUN/CRE 18.6 RATIO Normal 10-20 [facility] Comment on above: Performed By: #### L 100.0100, L500.2500 ####[facility] [address] [place], [address] Calcium [Mass/Vol] 9.3 mg/dL Normal 7.6-11.0 [facility] Comment on above: Performed By: #### L 100.0100, L500.2500 ####[facility] [address] [place], [address] Chloride [Moles/Vol] 91 mmol/L Low 98-108 [facility] Comment on above: Performed By: #### L 100.0100, L500.2500 ####[facility] [address] [place], [address] CO2 [Moles/Vol] 21.8 mmol/L Normal 21.0-32.0 [facility] Comment on above: Performed By: #### L 100.0100, L500.2500 ####[facility] [address] [place], [address] Creatinine [Mass/Vol] 0.68 mg/dL Low 0.70-1.20 [facility] Comment on above: Performed By: #### L 100.0100, L500.2500 ####[facility] [address] [place], [address] ECRCL 95.23 ml/min Normal 50-250 [facility] Comment on above: Performed By: #### L 100.0100, L500.2500 ####[facility] [address] [place], [address] GAP 14 Normal 5-15 [facility] Comment on above: Performed By: #### L 100.0100, L500.2500 ####[facility] [address] [place], [address] GFR/1.73 sq M.predicted among non-blacks MDRD (S/P/Bld) [Vol rate/Area] 97 mL/min/{1.73_m2} Normal >60 [facility] Comment on above: Result Comment: mL/m in/1.73m2 CKD-EPI Creatinine Equation (2020) Performed By: #### L 100.0100, L500.2500 ####[facility] [address] [place], [address] Glucose [Mass/Vol] 116 mg/dL High 70-99 [facility] Comment on above: Performed By: #### L 100.0100, L500.2500 ####[facility] [address] [place], [address] Potassium [Moles/Vol] 4.0 mmol/L Normal 3.3-5.1 [facility] Comment on above: Result Comment: Hemo lysis present, Results??could be affected.?? Performed By: #### L 100.0100, L500.2500 ####[facility] [address] [place], [address] Sodium [Moles/Vol] 127 mmol/L Low 133-145 [facility] Comment on above: Performed By: #### L 100.0100, L500.2500 ####[facility] [address] [place], [address] Urea nitrogen [Mass/Vol] 13 mg/dL Normal 4-19 [facility] Comment on above: Performed By: #### L 100.0100, L500.2500 ####[facility] [address] [place], [address] CBC W/Diff, Automatedon 05-0 1-2025 Absolute Lymph 1.01 X10 3/uL Normal 0.83-4.51 [facility] Comment on above: Performed By: #### L 100.0100, L500.2500 ####[facility] [address] [place], [address] Absolute Neut 12.6 X10 3/uL High 2.0-7.7 [facility] Comment on above: Performed By: #### L 100.0100, L500.2500 ####[facility] [address] [place], [address] Basophils/100 WBC (Bld) 0.2 % Normal 0-1 [facility] Comment on above: Performed By: #### L 100.0100, L500.2500 ####[facility] [address] [place], [address] Eosinophils/100 WBC (Bld) 0.0 % Normal 0-5 [facility] Comment on above: Performed By: #### L 100.0100, L500.2500 ####[facility] [address] [place], [address] Erythrocyte distribution width (RBC) [Ratio] 12.9 % Normal 11.6-14.6 [facility] Comment on above: Performed By: #### L 100.0100, L500.2500 ####[facility] [address] [place], [address] Hematocrit (Bld) [Volume fraction] 39.2 % Low 40-54 [facility] Comment on above: Performed By: #### L 100.0100, L500.2500 ####[facility] [address] [place], [address] Hemoglobin (Bld) [Mass/Vol] 13.8 g/dL Normal 13.0-16.5 [facility] Comment on above: Performed By: #### L 100.0100, L500.2500 ####[facility] [address] [place], [address] IG% 0.400 Normal 0.0-0.9 [facility] Comment on above: Result Comment: IG% - Immature Granulocytes (promyelocytes, myelocytes andmetamyelocytes) > 1% indicates that a LEFT SHIFT is Present. Performed By: #### L 100.0100, L500.2500 ####[facility] [address] [place], [address] Lymphocytes/100 WBC (Bld) 7.0 % Low 19-41 [facility] Comment on above: Performed By: #### L 100.0100, L500.2500 ####[facility] [address] [place], [address] MCH (RBC) [Entitic mass] 32.1 pg High 27.0-32.0 [facility] Comment on above: Performed By: #### L 100.0100, L500.2500 ####[facility] [address] [place], [address] MCHC (RBC) [Mass/Vol] 35.2 g/dL Normal 32-36 [facility] Comment on above: Performed By: #### L 100.0100, L500.2500 ####[facility] [address] [place], [address] MCV (RBC) [Entitic vol] 91.2 fL Normal 80-94 [facility] Comment on above: Performed By: #### L 100.0100, L500.2500 ####[facility] [address] [place], [address] Monocytes/100 WBC (Bld) 4.5 % Normal 0-10 [facility] Comment on above: Performed By: #### L 100.0100, L500.2500 ####[facility] [address] [place], [address] Neutrophils/100 WBC (Bld) 87.9 % High 47-70 [facility] Comment on above: Performed By: #### L 100.0100, L500.2500 ####[facility] [address] [place], [address] Nucleated RBC (Bld) [#/Vol] 0 10*3/uL Normal 0-5 [facility] Comment on above: Performed By: #### L 100.0100, L500.2500 ####[facility] [address] [place], [address] Platelet mean volume (Bld) [Entitic vol] 9.6 fL Normal 6.2-12.0 [facility] Comment on above: Performed By: #### L 100.0100, L500.2500 ####[facility] [address] [place], [address] Platelets (Bld) [#/Vol] 306 10*3/uL Normal 150-450 [facility] Comment on above: Performed By: #### L 100.0100, L500.2500 ####[facility] [address] [place], [address] RBC (Bld) [#/Vol] 4.30 10*6/uL Low 4.6-6.2 [facility] Comment on above: Performed By: #### L 100.0100, L500.2500 ####[facility] [address] [place], [address] RDW SD 43.0 fl Normal 35.1-43.9 [facility] Comment on above: Performed By: #### L 100.0100, L500.2500 ####[facility] [address] [place], [address] WBC (Bld) [#/Vol] 14.3 10*3/uL High 4.4-11.0 [facility] Comment on above: Performed By: #### L 100.0100, L500.2500 ####[facility] [address] [place], [address] Emergency Department Summary on 06-07-2024 Emergency Department Summary Normal [facility] Lipaseon 06-07-2024 Lipase [Catalytic activity/Vol] 35 U/L Normal 13-75 [facility] Comment on above: Result Comment: Nagi nelson note:LIPASE revised reference range effective 22.New Lipase methodology. Expected to produce lower valuesthan the previous assay method.NEW Reference Range: 13 - 75 U/L Performed By: #### L 501.2450, L500.3400 ####[facility] [address] [place], [address] Liver Profileon 06-07-2024 Albumin [Mass/Vol] 3.9 g/dL Normal 3.4-4.8 [facility] Comment on above: Performed By: #### L 501.2450, L500.3400 ####[facility] [address] [place], [address] ALK PHOS 89 U/L Normal 40-129 [facility] Comment on above: Performed By: #### L 501.2450, L500.3400 ####[facility] [address] [place], [address] ALT [Catalytic activity/Vol] 21 U/L Normal <=46 [facility] Comment on above: Performed By: #### L 501.2450, L500.3400 ####[facility] [address] [place], [address] AST [Catalytic activity/Vol] 26 U/L Normal <=37 [facility] Comment on above: Result Comment: Hemo lysis present, Results??could be affected.?? Performed By: #### L 501.2450, L500.3400 ####[facility] [address] [place], [address] Bilirubin [Mass/Vol] 0.49 mg/dL Normal 0.00-1.30 [facility] Comment on above: Performed By: #### L 501.2450, L500.3400 ####[facility] [address] [place], [address] Bilirubin.direct [Mass/Vol] 0.22 mg/dL Normal 0.00-0.30 [facility] Comment on above: Result Comment: Hemo lysis present, Results??could be affected.?? Performed By: #### L 501.2450, L500.3400 ####[facility] [address] [place], [address] Globulin (S) [Mass/Vol] 3.6 g/dL Normal 2.2-4.2 [facility] Comment on above: Performed By: #### L 501.2450, L500.3400 ####[facility] [address] [place], [address] T PROT 7.5 g/dL Normal 5.9-8.4 [facility] Comment on above: Performed By: #### L 501.2450, L500.3400 ####[facility] [address] [place], [address] Urinalysis, Completeon 06-07 CAST,HYALINE 0-5 SEEN Normal 0-5 [facility] Comment on above: Order Comment: COLLE CTOR TO SPECIFY Performed By: #### L 400.0001 ####[facility] [address] [place], [address] RBC 0-5 SEEN Normal 0-5 [facility] Comment on above: Order Comment: COLLE CTOR TO SPECIFY Performed By: #### L 400.0001 ####[facility] [address] [place], [address] WBC 0-5 SEEN Normal 0-5 [facility] Comment on above: Order Comment: COLLE CTOR TO SPECIFY Performed By: #### L 400.0001 ####[facility] [address] [place], [address] BACTERIA 0 SEEN Normal None Seen [facility] Comment on above: Order Comment: COLLE CTOR TO SPECIFY Performed By: #### L 400.0001 ####[facility] [address] [place], [address] EPI,SQUAMOUS 0 SEEN Normal 0-5 [facility] Comment on above: Order Comment: COLLE CTOR TO SPECIFY Performed By: #### L 400.0001 ####[facility] [address] [place], [address] Mucus Ql (Urine sed) 0 SEEN Normal [facility] Comment on above: Order Comment: COLLE CTOR TO SPECIFY Performed By: #### L 400.0001 ####[facility] [address] [place], [address] Basic Metabolic Profile (BMP )on 05-28-2024 BUN/CRE 21.0 RATIO High 10-20 [facility] Comment on above: Performed By: #### L 100.0100, L500.2500 ####[facility] [address] [place], [address] Calcium [Mass/Vol] 9.8 mg/dL Normal 7.6-11.0 [facility] Comment on above: Performed By: #### L 100.0100, L500.2500 ####[facility] [address] [place], [address] Chloride [Moles/Vol] 91 mmol/L Low 98-108 [facility] Comment on above: Performed By: #### L 100.0100, L500.2500 ####[facility] [address] [place], [address] CO2 [Moles/Vol] 26.3 mmol/L Normal 21.0-32.0 [facility] Comment on above: Performed By: #### L 100.0100, L500.2500 ####[facility] [address] [place], [address] Creatinine [Mass/Vol] 0.85 mg/dL Normal 0.70-1.20 [facility] Comment on above: Performed By: #### L 100.0100, L500.2500 ####[facility] [address] [place], [address] ECRCL 88.64 ml/min Normal 50-250 [facility] Comment on above: Performed By: #### L 100.0100, L500.2500 ####[facility] [address] [place], [address] GAP 11 Normal 5-15 [facility] Comment on above: Performed By: #### L 100.0100, L500.2500 ####[facility] [address] [place], [address] GFR/1.73 sq M.predicted among non-blacks MDRD (S/P/Bld) [Vol rate/Area] 90 mL/min/{1.73_m2} Normal >60 [facility] Comment on above: Result Comment: mL/m in/1.73m2 CKD-EPI Creatinine Equation (2020) Performed By: #### L 100.0100, L500.2500 ####[facility] [address] [place], [address] Glucose [Mass/Vol] 114 mg/dL High 70-99 [facility] Comment on above: Performed By: #### L 100.0100, L500.2500 ####[facility] [address] [place], [address] Potassium [Moles/Vol] 3.9 mmol/L Normal 3.3-5.1 [facility] Comment on above: Performed By: #### L 100.0100, L500.2500 ####[facility] [address] [place], [address] Sodium [Moles/Vol] 129 mmol/L Low 133-145 [facility] Comment on above: Performed By: #### L 100.0100, L500.2500 ####[facility] [address] [place], [address] Urea nitrogen [Mass/Vol] 18 mg/dL Normal 4-19 [facility] Comment on above: Performed By: #### L 100.0100, L500.2500 ####[facility] [address] [place], [address] CBC W/Diff, Automatedon 04-2 -2024 Absolute Lymph 1.70 X10 3/uL Normal 0.83-4.51 [facility] Comment on above: Performed By: #### L 100.0100, L500.2500 ####[facility] [address] [place], [address] Absolute Neut 9.5 X10 3/uL High 2.0-7.7 [facility] Comment on above: Performed By: #### L 100.0100, L500.2500 ####[facility] [address] [place], [address] Basophils/100 WBC (Bld) 0.4 % Normal 0-1 [facility] Comment on above: Performed By: #### L 100.0100, L500.2500 ####[facility] [address] [place], [address] Eosinophils/100 WBC (Bld) 0.3 % Normal 0-5 [facility] Comment on above: Performed By: #### L 100.0100, L500.2500 ####[facility] [address] [place], [address] Erythrocyte distribution width (RBC) [Ratio] 12.9 % Normal 11.6-14.6 [facility] Comment on above: Performed By: #### L 100.0100, L500.2500 ####[facility] [address] [place], [address] Hematocrit (Bld) [Volume fraction] 41.7 % Normal 40-54 [facility] Comment on above: Performed By: #### L 100.0100, L500.2500 ####[facility] [address] [place], [address] Hemoglobin (Bld) [Mass/Vol] 14.8 g/dL Normal 13.0-16.5 [facility] Comment on above: Performed By: #### L 100.0100, L500.2500 ####[facility] [address] [place], [address] IG% 0.500 Normal 0.0-0.9 [facility] Comment on above: Result Comment: IG% - Immature Granulocytes (promyelocytes, myelocytes andmetamyelocytes) > 1% indicates that a LEFT SHIFT is Present. Performed By: #### L 100.0100, L500.2500 ####[facility] [address] [place], [address] Lymphocytes/100 WBC (Bld) 13.7 % Low 19-41 [facility] Comment on above: Performed By: #### L 100.0100, L500.2500 ####[facility] [address] [place], [address] MCH (RBC) [Entitic mass] 32.3 pg High 27.0-32.0 [facility] Comment on above: Performed By: #### L 100.0100, L500.2500 ####[facility] [address] [place], [address] MCHC (RBC) [Mass/Vol] 35.5 g/dL Normal 32-36 [facility] Comment on above: Performed By: #### L 100.0100, L500.2500 ####[facility] [address] [place], [address] MCV (RBC) [Entitic vol] 91.0 fL Normal 80-94 [facility] Comment on above: Performed By: #### L 100.0100, L500.2500 ####[facility] [address] [place], [address] Monocytes/100 WBC (Bld) 8.9 % Normal 0-10 [facility] Comment on above: Performed By: #### L 100.0100, L500.2500 ####[facility] [address] [place], [address] Neutrophils/100 WBC (Bld) 76.2 % High 47-70 [facility] Comment on above: Performed By: #### L 100.0100, L500.2500 ####[facility] [address] [place], [address] Nucleated RBC (Bld) [#/Vol] 0 10*3/uL Normal 0-5 [facility] Comment on above: Performed By: #### L 100.0100, L500.2500 ####[facility] [address] [place], [address] Platelet mean volume (Bld) [Entitic vol] 9.5 fL Normal 6.2-12.0 [facility] Comment on above: Performed By: #### L 100.0100, L500.2500 ####[facility] [address] [place], [address] Platelets (Bld) [#/Vol] 316 10*3/uL Normal 150-450 [facility] Comment on above: Performed By: #### L 100.0100, L500.2500 ####[facility] [address] [place], [address] RBC (Bld) [#/Vol] 4.58 10*6/uL Low 4.6-6.2 [facility] Comment on above: Performed By: #### L 100.0100, L500.2500 ####[facility] [address] [place], [address] RDW SD 42.3 fl Normal 35.1-43.9 [facility] Comment on above: Performed By: #### L 100.0100, L500.2500 ####[facility] [address] [place], [address] WBC (Bld) [#/Vol] 12.4 10*3/uL High 4.4-11.0 [facility] Comment on above: Performed By: #### L 100.0100, L500.2500 ####[facility] [address] [place], [address] Emergency Department Summary on 05-28-2024 Emergency Department Summary Normal [facility] 12 Lead EKGon 05-26-2024 12 Lead EKG Normal [facility] CBC W/Diff, Automatedon - Absolute Lymph 1.66 X10 3/uL Normal 0.83-4.51 [facility] Comment on above: Performed By: #### L 500.4050, L501.2450, L100.0100 ####[facility] [address] [place], [address] Absolute Neut 9.5 X10 3/uL High 2.0-7.7 [facility] Comment on above: Performed By: #### L 500.4050, L501.2450, L100.0100 ####[facility] [address] [place], [address] Basophils/100 WBC (Bld) 0.5 % Normal 0-1 [facility] Comment on above: Performed By: #### L 500.4050, L501.2450, L100.0100 ####[facility] [address] [place], [address] Eosinophils/100 WBC (Bld) 0.5 % Normal 0-5 [facility] Comment on above: Performed By: #### L 500.4050, L501.2450, L100.0100 ####[facility] [address] [place], [address] Erythrocyte distribution width (RBC) [Ratio] 13.2 % Normal 11.6-14.6 [facility] Comment on above: Performed By: #### L 500.4050, L501.2450, L100.0100 ####[facility] [address] [place], [address] Hematocrit (Bld) [Volume fraction] 42.0 % Normal 40-54 [facility] Comment on above: Performed By: #### L 500.4050, L501.2450, L100.0100 ####[facility] [address] [place], [address] Hemoglobin (Bld) [Mass/Vol] 15.2 g/dL Normal 13.0-16.5 [facility] Comment on above: Performed By: #### L 500.4050, L501.2450, L100.0100 ####[facility] [address] [place], [address] IG% 0.300 Normal 0.0-0.9 [facility] Comment on above: Result Comment: IG% - Immature Granulocytes (promyelocytes, myelocytes andmetamyelocytes) > 1% indicates that a LEFT SHIFT is Present. Performed By: #### L 500.4050, L501.2450, L100.0100 ####[facility] [address] [place], [address] Lymphocytes/100 WBC (Bld) 13.4 % Low 19-41 [facility] Comment on above: Performed By: #### L 500.4050, L501.2450, L100.0100 ####[facility] [address] [place], [address] MCH (RBC) [Entitic mass] 33.4 pg High 27.0-32.0 [facility] Comment on above: Performed By: #### L 500.4050, L501.2450, L100.0100 ####[facility] [address] [place], [address] MCHC (RBC) [Mass/Vol] 36.2 g/dL High 32-36 [facility] Comment on above: Performed By: #### L 500.4050, L501.2450, L100.0100 ####[facility] [address] [place], [address] MCV (RBC) [Entitic vol] 92.3 fL Normal 80-94 [facility] Comment on above: Performed By: #### L 500.4050, L501.2450, L100.0100 ####[facility] [address] [place], [address] Monocytes/100 WBC (Bld) 8.2 % Normal 0-10 [facility] Comment on above: Performed By: #### L 500.4050, L501.2450, L100.0100 ####[facility] [address] [place], [address] Neutrophils/100 WBC (Bld) 77.1 % High 47-70 [facility] Comment on above: Performed By: #### L 500.4050, L501.2450, L100.0100 ####[facility] [address] [place], [address] Nucleated RBC (Bld) [#/Vol] 0 10*3/uL Normal 0-5 [facility] Comment on above: Performed By: #### L 500.4050, L501.2450, L100.0100 ####[facility] [address] [place], [address] Platelet mean volume (Bld) [Entitic vol] 9.6 fL Normal 6.2-12.0 [facility] Comment on above: Performed By: #### L 500.4050, L501.2450, L100.0100 ####[facility] [address] [place], [address] Platelets (Bld) [#/Vol] 329 10*3/uL Normal 150-450 [facility] Comment on above: Performed By: #### L 500.4050, L501.2450, L100.0100 ####[facility] [address] [place], [address] RBC (Bld) [#/Vol] 4.55 10*6/uL Low 4.6-6.2 [facility] Comment on above: Performed By: #### L 500.4050, L501.2450, L100.0100 ####[facility] [address] [place], [address] RDW SD 44.5 fl High 35.1-43.9 [facility] Comment on above: Performed By: #### L 500.4050, L501.2450, L100.0100 ####[facility] [address] [place], [address] WBC (Bld) [#/Vol] 12.4 10*3/uL High 4.4-11.0 [facility] Comment on above: Performed By: #### L 500.4050, L501.2450, L100.0100 ####[facility] [address] [place], [address] Comprehensive Metabolic Prof terry 05-26-2024 Albumin [Mass/Vol] 3.8 g/dL Normal 3.4-4.8 [facility] Comment on above: Performed By: #### L 500.4050, L501.2450, L100.0100 ####[facility] [address] [place], [address] Albumin/Globulin [Mass ratio] 1.0 {ratio} Normal 0.9-2.4 [facility] Comment on above: Performed By: #### L 500.4050, L501.2450, L100.0100 ####[facility] [address] [place], [address] ALK PHOS 94 U/L Normal 40-129 [facility] Comment on above: Performed By: #### L 500.4050, L501.2450, L100.0100 ####[facility] [address] [place], [address] ALT [Catalytic activity/Vol] 22 U/L Normal <=46 [facility] Comment on above: Performed By: #### L 500.4050, L501.2450, L100.0100 ####[facility] [address] [place], [address] AST [Catalytic activity/Vol] 27 U/L Normal <=37 [facility] Comment on above: Result Comment: Hemo lysis present, Results??could be affected.?? Performed By: #### L 500.4050, L501.2450, L100.0100 ####[facility] [address] [place], [address] Bilirubin [Mass/Vol] 0.51 mg/dL Normal 0.00-1.30 [facility] Comment on above: Performed By: #### L 500.4050, L501.2450, L100.0100 ####[facility] [address] [place], [address] BUN/CRE 25.7 RATIO High 10-20 [facility] Comment on above: Performed By: #### L 500.4050, L501.2450, L100.0100 ####[facility] [address] [place], [address] Calcium [Mass/Vol] 9.7 mg/dL Normal 7.6-11.0 [facility] Comment on above: Performed By: #### L 500.4050, L501.2450, L100.0100 ####[facility] [address] [place], [address] Chloride [Moles/Vol] 98 mmol/L Normal 98-108 [facility] Comment on above: Performed By: #### L 500.4050, L501.2450, L100.0100 ####[facility] [address] [place], [address] CO2 [Moles/Vol] 23.4 mmol/L Normal 21.0-32.0 [facility] Comment on above: Performed By: #### L 500.4050, L501.2450, L100.0100 ####[facility] [address] [place], [address] Creatinine [Mass/Vol] 0.86 mg/dL Normal 0.70-1.20 [facility] Comment on above: Performed By: #### L 500.4050, L501.2450, L100.0100 ####[facility] [address] [place], [address] ECRCL 87.90 ml/min Normal 50-250 [facility] Comment on above: Performed By: #### L 500.4050, L501.2450, L100.0100 ####[facility] [address] [place], [address] GAP 13 Normal 5-15 [facility] Comment on above: Performed By: #### L 500.4050, L501.2450, L100.0100 ####[facility] [address] [place], [address] GFR/1.73 sq M.predicted among non-blacks MDRD (S/P/Bld) [Vol rate/Area] 90 mL/min/{1.73_m2} Normal >60 [facility] Comment on above: Result Comment: mL/m in/1.73m2 CKD-EPI Creatinine Equation (2020) Performed By: #### L 500.4050, L501.2450, L100.0100 ####[facility] [address] [place], [address] Globulin (S) [Mass/Vol] 3.7 g/dL Normal 2.2-4.2 [facility] Comment on above: Performed By: #### L 500.4050, L501.2450, L100.0100 ####[facility] [address] [place], [address] Glucose [Mass/Vol] 111 mg/dL High 70-99 [facility] Comment on above: Performed By: #### L 500.4050, L501.2450, L100.0100 ####[facility] [address] [place], [address] Potassium [Moles/Vol] 4.5 mmol/L Normal 3.3-5.1 [facility] Comment on above: Result Comment: Hemo lysis present, Results??could be affected.?? Performed By: #### L 500.4050, L501.2450, L100.0100 ####[facility] [address] [place], [address] Sodium [Moles/Vol] 135 mmol/L Normal 133-145 [facility] Comment on above: Performed By: #### L 500.4050, L501.2450, L100.0100 ####[facility] [address] [place], [address] T PROT 7.5 g/dL Normal 5.9-8.4 [facility] Comment on above: Performed By: #### L 500.4050, L501.2450, L100.0100 ####[facility] [address] [place], [address] Urea nitrogen [Mass/Vol] 22 mg/dL High - [facility] Comment on above: Performed By: #### L 500.4050, L501.2450, L100.0100 ####[facility] [address] [place], [address] Emergency Department Summary on 05-26-2024 Emergency Department Summary Normal [facility] Lipaseon 05-26-2024 Lipase [Catalytic activity/Vol] 132 U/L High 13-75 [facility] Comment on above: Result Comment: Nagi nelson note:LIPASE revised reference range effective 22.New Lipase methodology. Expected to produce lower valuesthan the previous assay method.NEW Reference Range: 13 - 75 U/L Performed By: #### L 500.4050, L501.2450, L100.0100 ####[facility] [address] [place], [address] Urinalysis, Completeon 05-26 BACTERIA 0 SEEN Normal None Seen [facility] Comment on above: Order Comment: CLEAN CATCH Performed By: #### L 400.0001 ####[facility] [address] [place], [address] EPI,SQUAMOUS 0 SEEN Normal 0-5 [facility] Comment on above: Order Comment: CLEAN CATCH Performed By: #### L 400.0001 ####[facility] [address] [place], [address] Mucus Ql (Urine sed) 0 SEEN Normal [facility] Comment on above: Order Comment: CLEAN CATCH Performed By: #### L 400.0001 ####[facility] [address] [place], [address] RBC 0 SEEN Normal 0-5 [facility] Comment on above: Order Comment: CLEAN CATCH Performed By: #### L 400.0001 ####[facility] [address] [place], [address] WBC 0 SEEN Normal 0-5 [facility] Comment on above: Order Comment: CLEAN CATCH Performed By: #### L 400.0001 ####[facility] [address] [place] [address] Urine Drug Screen (VISTA)on 05-26-2024 AMPHETAMINES Negative Normal <1000 ng/mL [facility] Comment on above: Performed By: #### L 505.5000 ####[facility] [address] [place] [address] BARBITIURATES Negative Normal < 200 ng/mL [facility] Comment on above: Performed By: #### L 505.5000 ####[facility] [address] [place], [phone] BENZODIAZIPINE Positive Normal < 200 ng/mL [facility] Comment on above: Result Comment: If c onfirmation testing is needed, a separate order will berequired to send out testing to the reference laboratory. Performed By: #### L 505.5000 ####[facility] [address] [place] [id number] BUP Ur Drug Scr Negative Normal < 200 ng/mL [facility] Comment on above: Performed By: #### L 505.5000 ####[facility] [address] [place] [address] COCAINE Negative Normal < 300 ng/mL [facility] Comment on above: Performed By: #### L 505.5000 ####[facility] [address] [place], [address] Fentanyl Negative Normal [facility] Comment on above: Performed By: #### L 505.5000 ####[facility] [address] [place], [address] METHADONE Negative Normal < 300 ng/mL [facility] Comment on above: Performed By: #### L 505.5000 ####[facility] [address] [place], [address] OPIATES Negative Normal < 300 ng/mL [facility] Comment on above: Performed By: #### L 505.5000 ####[facility] [address] [place], [address] OXYCODONE Negative Normal < 100 ng/mL [facility] Comment on above: Performed By: #### L 505.5000 ####[facility] [address] [place], [address] PCP Negative Normal < 25 ng/mL [facility] Comment on above: Performed By: #### L 505.5000 ####[facility] [address] [place], [address] THC Negative Normal < 50 ng/mL [facility] Comment on above: Performed By: #### L 505.5000 ####[facility] [address] [place], [address] CBC W/Diff, Automatedon - Absolute Lymph 1.99 X10 3/uL Normal 0.83-4.51 [facility] Comment on above: Performed By: #### L 500.4050, L100.0100, L503.7505 ####[facility] [address] [place], [address] Absolute Neut 6.1 X10 3/uL Normal 2.0-7.7 [facility] Comment on above: Performed By: #### L 500.4050, L100.0100, L503.7505 ####[facility] [address] [place], [address] Basophils/100 WBC (Bld) 0.5 % Normal 0-1 [facility] Comment on above: Performed By: #### L 500.4050, L100.0100, L503.7505 ####[facility] [address] [place], [address] Eosinophils/100 WBC (Bld) 1.1 % Normal 0-5 [facility] Comment on above: Performed By: #### L 500.4050, L100.0100, L503.7505 ####[facility] [address] [place], [address] Erythrocyte distribution width (RBC) [Ratio] 12.6 % Normal 11.6-14.6 [facility] Comment on above: Performed By: #### L 500.4050, L100.0100, L503.7505 ####[facility] [address] [place], [address] Hematocrit (Bld) [Volume fraction] 40.2 % Normal 40-54 [facility] Comment on above: Performed By: #### L 500.4050, L100.0100, L503.7505 ####[facility] [address] [place], [address] Hemoglobin (Bld) [Mass/Vol] 13.9 g/dL Normal 13.0-16.5 [facility] Comment on above: Performed By: #### L 500.4050, L100.0100, L503.7505 ####[facility] [address] [place], [address] IG% 0.500 Normal 0.0-0.9 [facility] Comment on above: Result Comment: IG% - Immature Granulocytes (promyelocytes, myelocytes andmetamyelocytes) > 1% indicates that a LEFT SHIFT is Present. Performed By: #### L 500.4050, L100.0100, L503.7505 ####[facility] [address] [place], [address] Lymphocytes/100 WBC (Bld) 21.4 % Normal 19-41 [facility] Comment on above: Performed By: #### L 500.4050, L100.0100, L503.7505 ####[facility] [address] [place], [address] MCH (RBC) [Entitic mass] 32.3 pg High 27.0-32.0 [facility] Comment on above: Performed By: #### L 500.4050, L100.0100, L503.7505 ####[facility] [address] [place], [address] MCHC (RBC) [Mass/Vol] 34.6 g/dL Normal 32-36 [facility] Comment on above: Performed By: #### L 500.4050, L100.0100, L503.7505 ####[facility] [address] [place], [address] MCV (RBC) [Entitic vol] 93.5 fL Normal 80-94 [facility] Comment on above: Performed By: #### L 500.4050, L100.0100, L503.7505 ####[facility] [address] [place], [address] Monocytes/100 WBC (Bld) 11.3 % High 0-10 [facility] Comment on above: Performed By: #### L 500.4050, L100.0100, L503.7505 ####[facility] [address] [place], [address] Neutrophils/100 WBC (Bld) 65.2 % Normal 47-70 [facility] Comment on above: Performed By: #### L 500.4050, L100.0100, L503.7505 ####[facility] [address] [place], [address] Nucleated RBC (Bld) [#/Vol] 0 10*3/uL Normal 0-5 [facility] Comment on above: Performed By: #### L 500.4050, L100.0100, L503.7505 ####[facility] [address] [place], [address] Platelet mean volume (Bld) [Entitic vol] 9.8 fL Normal 6.2-12.0 [facility] Comment on above: Performed By: #### L 500.4050, L100.0100, L503.7505 ####[facility] [address] [place], [address] Platelets (Bld) [#/Vol] 309 10*3/uL Normal 150-450 [facility] Comment on above: Performed By: #### L 500.4050, L100.0100, L503.7505 ####[facility] [address] [place], [address] RBC (Bld) [#/Vol] 4.30 10*6/uL Low 4.6-6.2 [facility] Comment on above: Performed By: #### L 500.4050, L100.0100, L503.7505 ####[facility] [address] [place], [address] RDW SD 42.7 fl Normal 35.1-43.9 [facility] Comment on above: Performed By: #### L 500.4050, L100.0100, L503.7505 ####[facility] [address] [place], [address] WBC (Bld) [#/Vol] 9.3 10*3/uL Normal 4.4-11.0 [facility] Comment on above: Performed By: #### L 500.4050, L100.0100, L503.7505 ####[facility] [address] [place], [address] Comprehensive Metabolic [facility] ilon 05-21-2024 Albumin [Mass/Vol] 3.6 g/dL Normal 3.4-4.8 [facility] Comment on above: Performed By: #### L 500.4050, L100.0100, L503.7505 ####[facility] [address] [place], [address] Albumin/Globulin [Mass ratio] 1.0 {ratio} Normal 0.9-2.4 [facility] Comment on above: Performed By: #### L 500.4050, L100.0100, L503.7505 ####[facility] [address] [place], [address] ALK PHOS 92 U/L Normal 40-129 [facility] Comment on above: Performed By: #### L 500.4050, L100.0100, L503.7505 ####[facility] [address] [place], [address] ALT [Catalytic activity/Vol] 17 U/L Normal <=46 [facility] Comment on above: Performed By: #### L 500.4050, L100.0100, L503.7505 ####[facility] [address] [place], [address] AST [Catalytic activity/Vol] 27 U/L Normal <=37 [facility] Comment on above: Performed By: #### L 500.4050, L100.0100, L503.7505 ####[facility] [address] [place], [address] Bilirubin [Mass/Vol] 0.47 mg/dL Normal 0.00-1.30 [facility] Comment on above: Performed By: #### L 500.4050, L100.0100, L503.7505 ####[facility] [address] [place], [address] BUN/CRE 14.6 RATIO Normal 10-20 [facility] Comment on above: Performed By: #### L 500.4050, L100.0100, L503.7505 ####[facility] [address] [place], [address] Calcium [Mass/Vol] 9.5 mg/dL Normal 7.6-11.0 [facility] Comment on above: Performed By: #### L 500.4050, L100.0100, L503.7505 ####[facility] [address] [place], [address] Chloride [Moles/Vol] 92 mmol/L Low 98-108 [facility] Comment on above: Performed By: #### L 500.4050, L100.0100, L503.7505 ####[facility] [address] [place], [address] CO2 [Moles/Vol] 26.3 mmol/L Normal 21.0-32.0 [facility] Comment on above: Performed By: #### L 500.4050, L100.0100, L503.7505 ####[facility] [address] [place], [address] Creatinine [Mass/Vol] 0.70 mg/dL Normal 0.70-1.20 [facility] Comment on above: Performed By: #### L 500.4050, L100.0100, L503.7505 ####[facility] [address] [place], [address] GAP 11 Normal 5-15 [facility] Comment on above: Performed By: #### L 500.4050, L100.0100, L503.7505 ####[facility] [address] [place], [address] GFR/1.73 sq M.predicted among non-blacks MDRD (S/P/Bld) [Vol rate/Area] 95 mL/min/{1.73_m2} Normal >60 [facility] Comment on above: Result Comment: mL/m in/1.73m2 CKD-EPI Creatinine Equation (2020) Performed By: #### L 500.4050, L100.0100, L503.7505 ####[facility] [address] [place], [address] Globulin (S) [Mass/Vol] 3.6 g/dL Normal 2.2-4.2 [facility] Comment on above: Performed By: #### L 500.4050, L100.0100, L503.7505 ####[facility] [address] [place], [address] Glucose [Mass/Vol] 99 mg/dL Normal 70-99 [facility] Comment on above: Performed By: #### L 500.4050, L100.0100, L503.7505 ####[facility] [address] [place], [address] Potassium [Moles/Vol] 4.4 mmol/L Normal 3.3-5.1 [facility] Comment on above: Performed By: #### L 500.4050, L100.0100, L503.7505 ####[facility] [address] [place], [address] Sodium [Moles/Vol] 129 mmol/L Low 133-145 [facility] Comment on above: Performed By: #### L 500.4050, L100.0100, L503.7505 ####[facility] [address] [place], [address] T PROT 7.2 g/dL Normal 5.9-8.4 [facility] Comment on above: Performed By: #### L 500.4050, L100.0100, L503.7505 ####[facility] [address] [place], [address] Urea nitrogen [Mass/Vol] 10 mg/dL Normal 4-19 [facility] Comment on above: Performed By: #### L 500.4050, L100.0100, L503.7505 ####[facility] [address] [place], [address] L503.7505on 05-21-2024 Natriuretic peptide B (Bld) [Mass/Vol] 66 pg/mL Normal <=1800 [facility] Comment on above: Result Comment: Hear t Failure Unlikely: < 300 pg/mLHeart Failure Likely< 50 Years: > 450 pg/mL50-75 Years: > 900 pg/mL>75 Years: > 1800 pg/mL Performed By: #### L 500.4050, L100.0100, L503.7505 ####[facility] [address] [place], [address] Basic Metabolic Profile (BMP )on 04-30-2024 BUN/CRE 23.2 RATIO High 10-20 [facility] Comment on above: Order Comment: 103.2 Performed By: #### L 100.0100, L506.1001, L503.0106, L500.2500, L501.9520, L501.5200 ####[facility] [address] [place], [address] Calcium [Mass/Vol] 9.4 mg/dL Normal 7.6-11.0 [facility] Comment on above: Order Comment: 103.2 Performed By: #### L 100.0100, L506.1001, L503.0106, L500.2500, L501.9520, L501.5200 ####[facility] [address] [place], [address] Chloride [Moles/Vol] 98 mmol/L Normal 98-108 [facility] Comment on above: Order Comment: 103.2 Performed By: #### L 100.0100, L506.1001, L503.0106, L500.2500, L501.9520, L501.5200 ####[facility] [address] [place], [address] CO2 [Moles/Vol] 24.1 mmol/L Normal 21.0-32.0 [facility] Comment on above: Order Comment: 103.2 Performed By: #### L 100.0100, L506.1001, L503.0106, L500.2500, L501.9520, L501.5200 ####[facility] [address] [place], [address] Creatinine [Mass/Vol] 0.87 mg/dL Normal 0.70-1.20 [facility] Comment on above: Order Comment: 103.2 Performed By: #### L 100.0100, L506.1001, L503.0106, L500.2500, L501.9520, L501.5200 ####[facility] [address] [place], [address] GAP 12 Normal 5-15 [facility] Comment on above: Order Comment: 103.2 Performed By: #### L 100.0100, L506.1001, L503.0106, L500.2500, L501.9520, L501.5200 ####[facility] [address] [place], [address] GFR/1.73 sq M.predicted among non-blacks MDRD (S/P/Bld) [Vol rate/Area] 90 mL/min/{1.73_m2} Normal >60 [facility] Comment on above: Order Comment: 103.2 Result Comment: mL/m in/1.73m2 CKD-EPI Creatinine Equation (2020) Performed By: #### L 100.0100, L506.1001, L503.0106, L500.2500, L501.9520, L501.5200 ####[facility] [address] [place], [address] Glucose [Mass/Vol] 121 mg/dL High 70-99 [facility] Comment on above: Order Comment: 103.2 Performed By: #### L 100.0100, L506.1001, L503.0106, L500.2500, L501.9520, L501.5200 ####[facility] [address] [place], [address] Potassium [Moles/Vol] 4.2 mmol/L Normal 3.3-5.1 [facility] Comment on above: Order Comment: 103.2 Performed By: #### L 100.0100, L506.1001, L503.0106, L500.2500, L501.9520, L501.5200 ####[facility] [address] [place], [address] Sodium [Moles/Vol] 134 mmol/L Normal 133-145 [facility] Comment on above: Order Comment: 103.2 Performed By: #### L 100.0100, L506.1001, L503.0106, L500.2500, L501.9520, L501.5200 ####[facility] [address] [place], [address] Urea nitrogen [Mass/Vol] 20 mg/dL High 4-19 [facility] Comment on above: Order Comment: 103.2 Performed By: #### L 100.0100, L506.1001, L503.0106, L500.2500, L501.9520, L501.5200 ####[facility] [address] [place], [address] CBC W/Diff, Automatedon - Absolute Lymph 1.32 X10 3/uL Normal 0.83-4.51 [facility] Comment on above: Order Comment: 103.2 Performed By: #### L 100.0100, L506.1001, L503.0106, L500.2500, L501.9520, L501.5200 ####[facility] [address] [place], [address] Absolute Neut 3.2 X10 3/uL Normal 2.0-7.7 [facility] Comment on above: Order Comment: 103.2 Performed By: #### L 100.0100, L506.1001, L503.0106, L500.2500, L501.9520, L501.5200 ####[facility] [address] [place], [address] Basophils/100 WBC (Bld) 1.0 % Normal 0-1 [facility] Comment on above: Order Comment: 103.2 Performed By: #### L 100.0100, L506.1001, L503.0106, L500.2500, L501.9520, L501.5200 ####[facility] [address] [place], [address] Eosinophils/100 WBC (Bld) 4.4 % Normal 0-5 [facility] Comment on above: Order Comment: 103.2 Performed By: #### L 100.0100, L506.1001, L503.0106, L500.2500, L501.9520, L501.5200 ####[facility] [address] [place], [address] Erythrocyte distribution width (RBC) [Ratio] 13.2 % Normal 11.6-14.6 [facility] Comment on above: Order Comment: 103.2 Performed By: #### L 100.0100, L506.1001, L503.0106, L500.2500, L501.9520, L501.5200 ####[facility] [address] [place], [address] Hematocrit (Bld) [Volume fraction] 42.5 % Normal 40-54 [facility] Comment on above: Order Comment: 103.2 Performed By: #### L 100.0100, L506.1001, L503.0106, L500.2500, L501.9520, L501.5200 ####[facility] [address] [place], [address] Hemoglobin (Bld) [Mass/Vol] 14.5 g/dL Normal 13.0-16.5 [facility] Comment on above: Order Comment: 103.2 Performed By: #### L 100.0100, L506.1001, L503.0106, L500.2500, L501.9520, L501.5200 ####[facility] [address] [place], [address] IG% 0.700 Normal 0.0-0.9 [facility] Comment on above: Order Comment: 103.2 Result Comment: IG% - Immature Granulocytes (promyelocytes, myelocytes andmetamyelocytes) > 1% indicates that a LEFT SHIFT is Present. Performed By: #### L 100.0100, L506.1001, L503.0106, L500.2500, L501.9520, L501.5200 ####[facility] [address] [place], [address] Lymphocytes/100 WBC (Bld) 22.4 % Normal 19-41 [facility] Comment on above: Order Comment: 103.2 Performed By: #### L 100.0100, L506.1001, L503.0106, L500.2500, L501.9520, L501.5200 ####[facility] [address] [place], [address] MCH (RBC) [Entitic mass] 33.3 pg High 27.0-32.0 [facility] Comment on above: Order Comment: 103.2 Performed By: #### L 100.0100, L506.1001, L503.0106, L500.2500, L501.9520, L501.5200 ####[facility] [address] [place], [address] MCHC (RBC) [Mass/Vol] 34.1 g/dL Normal 32-36 [facility] Comment on above: Order Comment: 103.2 Performed By: #### L 100.0100, L506.1001, L503.0106, L500.2500, L501.9520, L501.5200 ####[facility] [address] [place], [address] MCV (RBC) [Entitic vol] 97.7 fL High 80-94 [facility] Comment on above: Order Comment: 103.2 Performed By: #### L 100.0100, L506.1001, L503.0106, L500.2500, L501.9520, L501.5200 ####[facility] [address] [place], [address] Monocytes/100 WBC (Bld) 17.5 % High 0-10 [facility] Comment on above: Order Comment: 103.2 Performed By: #### L 100.0100, L506.1001, L503.0106, L500.2500, L501.9520, L501.5200 ####[facility] [address] [place], [address] Neutrophils/100 WBC (Bld) 54.0 % Normal 47-70 [facility] Comment on above: Order Comment: 103.2 Performed By: #### L 100.0100, L506.1001, L503.0106, L500.2500, L501.9520, L501.5200 ####[facility] [address] [place], [address] Nucleated RBC (Bld) [#/Vol] 0 10*3/uL Normal 0-5 [facility] Comment on above: Order Comment: 103.2 Performed By: #### L 100.0100, L506.1001, L503.0106, L500.2500, L501.9520, L501.5200 ####[facility] [address] [place], [address] Platelet mean volume (Bld) [Entitic vol] 10.2 fL Normal 6.2-12.0 [facility] Comment on above: Order Comment: 103.2 Performed By: #### L 100.0100, L506.1001, L503.0106, L500.2500, L501.9520, L501.5200 ####[facility] [address] [place], [address] Platelets (Bld) [#/Vol] 172 10*3/uL Normal 150-450 [facility] Comment on above: Order Comment: 103.2 Performed By: #### L 100.0100, L506.1001, L503.0106, L500.2500, L501.9520, L501.5200 ####[facility] [address] [place], [address] RBC (Bld) [#/Vol] 4.35 10*6/uL Low 4.6-6.2 [facility] Comment on above: Order Comment: 103.2 Performed By: #### L 100.0100, L506.1001, L503.0106, L500.2500, L501.9520, L501.5200 ####[facility] [address] [place], [address] RDW SD 47.0 fl High 35.1-43.9 [facility] Comment on above: Order Comment: 103.2 Performed By: #### L 100.0100, L506.1001, L503.0106, L500.2500, L501.9520, L501.5200 ####[facility] [address] [place], [address] WBC (Bld) [#/Vol] 5.9 10*3/uL Normal 4.4-11.0 [facility] Comment on above: Order Comment: 103.2 Performed By: #### L 100.0100, L506.1001, L503.0106, L500.2500, L501.9520, L501.5200 ####[facility] [address] [place], [address] L503.0106on 04-30-2024 Cobalamin (Vitamin B12) [Mass/Vol] 522 pg/mL Normal 180-914 [facility] Comment on above: Order Comment: 103.2 Performed By: #### L 100.0100, L506.1001, L503.0106, L500.2500, L501.9520, L501.5200 ####[facility] [address] [place], [address] L506.1001on 04-30-2024 Vitamin D 25-OH 52.8 ng/mL Normal 30-100 [facility] Comment on above: Order Comment: 103.2 Result Comment: Sandra min D StatusDeficiency: <20 ng/mL (50nmol/L)Insufficiency: 20-30 ng/mL (50-75 nmol/L)Sufficiency: 30-100 ng/mL (75-250 nmol/L)Toxicity: >100 ng/mL (>250 nmol/L) Performed By: #### L 100.0100, L506.1001, L503.0106, L500.2500, L501.9520, L501.5200 ####[facility] [address] [place], [address] Magnesiumon 04-30-2024 Magnesium [Mass/Vol] 2.1 mg/dL Normal 1.5-2.2 [facility] Comment on above: Order Comment: 103.2 Performed By: #### L 100.0100, L506.1001, L503.0106, L500.2500, L501.9520, L501.5200 ####[facility] [address] [place], [address] Thyroid Stim Hormone (TSH)on 04-30-2024 TSH 3.020 uIU/mL Normal 0.300-4.200 [facility] Comment on above: Order Comment: 103.2 Performed By: #### L 100.0100, L506.1001, L503.0106, L500.2500, L501.9520, L501.5200 ####[facility] [address] [place], [address] Basic Metabolic Profile (BMP )on 04-23-2024 BUN/CRE 21.4 RATIO High 10-20 [facility] Comment on above: Performed By: #### L 100.0100, L500.2500 ####[facility] [address] [place], [address] Calcium [Mass/Vol] 8.9 mg/dL Normal 7.6-11.0 [facility] Comment on above: Performed By: #### L 100.0100, L500.2500 ####[facility] [address] [place], [address] Chloride [Moles/Vol] 97 mmol/L Low 98-108 [facility] Comment on above: Performed By: #### L 100.0100, L500.2500 ####[facility] [address] [place], [address] CO2 [Moles/Vol] 25.6 mmol/L Normal 21.0-32.0 [facility] Comment on above: Performed By: #### L 100.0100, L500.2500 ####[facility] [address] [place], [address] Creatinine [Mass/Vol] 0.78 mg/dL Normal 0.70-1.20 [facility] Comment on above: Performed By: #### L 100.0100, L500.2500 ####[facility] [address] [place], [address] ECRCL 86.71 ml/min Normal 50-250 [facility] Comment on above: Performed By: #### L 100.0100, L500.2500 ####[facility] [address] [place], [address] GAP 11 Normal 5-15 [facility] Comment on above: Performed By: #### L 100.0100, L500.2500 ####[facility] [address] [place], [address] GFR/1.73 sq M.predicted among non-blacks MDRD (S/P/Bld) [Vol rate/Area] 93 mL/min/{1.73_m2} Normal >60 [facility] Comment on above: Result Comment: mL/m in/1.73m2 CKD-EPI Creatinine Equation (2020) Performed By: #### L 100.0100, L500.2500 ####[facility] [id number] [place], [address] Glucose [Mass/Vol] 95 mg/dL Normal 70-99 [facility] Comment on above: Performed By: #### L 100.0100, L500.2500 ####[facility] [id number] [place], [address] Potassium [Moles/Vol] 4.7 mmol/L Normal 3.3-5.1 [facility] Comment on above: Performed By: #### L 100.0100, L500.2500 ####[facility] [id number] [place], [address] Sodium [Moles/Vol] 133 mmol/L Normal 133-145 [facility] Comment on above: Performed By: #### L 100.0100, L500.2500 ####[facility] [id number] [place], [address] Urea nitrogen [Mass/Vol] 17 mg/dL Normal 4-19 [facility] Comment on above: Performed By: #### L 100.0100, L500.2500 ####[facility] [address] [place], [address] CBC W/Diff, Automatedon 04-07 Absolute Lymph 0.88 X10 3/uL Normal 0.83-4.51 [facility] Comment on above: Performed By: #### L 100.0100, L500.2500 ####[facility] [address] [place], [address] Absolute Neut 6.6 X10 3/uL Normal 2.0-7.7 [facility] Comment on above: Performed By: #### L 100.0100, L500.2500 ####[facility] [address] [place], [address] Basophils/100 WBC (Bld) 0.4 % Normal 0-1 [facility] Comment on above: Performed By: #### L 100.0100, L500.2500 ####[facility] [address] [place], [address] Eosinophils/100 WBC (Bld) 0.1 % Normal 0-5 [facility] Comment on above: Performed By: #### L 100.0100, L500.2500 ####[facility] [address] [place], [address] Erythrocyte distribution width (RBC) [Ratio] 13.7 % Normal 11.6-14.6 [facility] Comment on above: Performed By: #### L 100.0100, L500.2500 ####[facility] [address] [place], [address] Hematocrit (Bld) [Volume fraction] 40.4 % Normal 40-54 [facility] Comment on above: Performed By: #### L 100.0100, L500.2500 ####[facility] [address] [place], [address] Hemoglobin (Bld) [Mass/Vol] 13.7 g/dL Normal 13.0-16.5 [facility] Comment on above: Performed By: #### L 100.0100, L500.2500 ####[facility] [address] [place], [address] IG% 0.600 Normal 0.0-0.9 [facility] Comment on above: Result Comment: IG% - Immature Granulocytes (promyelocytes, myelocytes andmetamyelocytes) > 1% indicates that a LEFT SHIFT is Present. Performed By: #### L 100.0100, L500.2500 ####[facility] [address] [place], [address] Lymphocytes/100 WBC (Bld) 10.4 % Low 19-41 [facility] Comment on above: Performed By: #### L 100.0100, L500.2500 ####[facility] [address] [place], [address] MCH (RBC) [Entitic mass] 32.5 pg High 27.0-32.0 [facility] Comment on above: Performed By: #### L 100.0100, L500.2500 ####[facility] [address] [place], [address] MCHC (RBC) [Mass/Vol] 33.9 g/dL Normal 32-36 [facility] Comment on above: Performed By: #### L 100.0100, L500.2500 ####[facility] [address] [place], [address] MCV (RBC) [Entitic vol] 95.7 fL High 80-94 [facility] Comment on above: Performed By: #### L 100.0100, L500.2500 ####[facility] [address] [place], [address] Monocytes/100 WBC (Bld) 11.0 % High 0-10 [facility] Comment on above: Performed By: #### L 100.0100, L500.2500 ####[facility] [address] [place], [address] Neutrophils/100 WBC (Bld) 77.5 % High 47-70 [facility] Comment on above: Performed By: #### L 100.0100, L500.2500 ####[facility] [address] [place], [address] Nucleated RBC (Bld) [#/Vol] 0 10*3/uL Normal 0-5 [facility] Comment on above: Performed By: #### L 100.0100, L500.2500 ####[facility] [address] [place], [address] Platelet mean volume (Bld) [Entitic vol] 9.9 fL Normal 6.2-12.0 [facility] Comment on above: Performed By: #### L 100.0100, L500.2500 ####[facility] [address] [place], [address] Platelets (Bld) [#/Vol] 148 10*3/uL Low 150-450 [facility] Comment on above: Performed By: #### L 100.0100, L500.2500 ####[facility] [address] [place], [address] RBC (Bld) [#/Vol] 4.22 10*6/uL Low 4.6-6.2 [facility] Comment on above: Performed By: #### L 100.0100, L500.2500 ####[facility] [address] [place], [address] RDW SD 48.1 fl High 35.1-43.9 [facility] Comment on above: Performed By: #### L 100.0100, L500.2500 ####[facility] [address] [place], [address] WBC (Bld) [#/Vol] 8.5 10*3/uL Normal 4.4-11.0 [facility] Comment on above: Performed By: #### L 100.0100, L500.2500 ####[facility] [address] [place], [address] Pelvis (Routine)on Pelvis (Routine) Normal [facility] 12 Lead EKGon 04-22-2024 12 Lead EKG Normal [facility] Alcohol, Blood (Medical)-Ser umon 04-22-2024 SERUM ETOH 91.6 mg/dL High <=10.0 [facility] Comment on above: Result Comment: This test is for medical purposes only. The legaldefinition of intoxication varies according to local law. Performed By: #### L 501.9100 ####[facility] [address] [place], [address] Basic Metabolic Profile (BMP )on 04-22-2024 BUN/CRE 16.9 RATIO Normal 10-20 [facility] Comment on above: Performed By: #### L 500.3400, L100.0100, L500.2500, L501.2450, L501.4021 ####[facility] [address] [place], [address] Calcium [Mass/Vol] 9.2 mg/dL Normal 7.6-11.0 [facility] Comment on above: Performed By: #### L 500.3400, L100.0100, L500.2500, L501.2450, L501.4021 ####[facility] [address] [place], [address] Chloride [Moles/Vol] 99 mmol/L Normal 98-108 [facility] Comment on above: Performed By: #### L 500.3400, L100.0100, L500.2500, L501.2450, L501.4021 ####[facility] [address] [place], [address] CO2 [Moles/Vol] 25.2 mmol/L Normal 21.0-32.0 [facility] Comment on above: Performed By: #### L 500.3400, L100.0100, L500.2500, L501.2450, L501.4021 ####[facility] [address] [place], [address] Creatinine [Mass/Vol] 0.93 mg/dL Normal 0.70-1.20 [facility] Comment on above: Performed By: #### L 500.3400, L100.0100, L500.2500, L501.2450, L501.4021 ####[facility] [address] [place], [address] ECRCL 86.05 ml/min Normal 50-250 [facility] Comment on above: Performed By: #### L 500.3400, L100.0100, L500.2500, L501.2450, L501.4021 ####[facility] [address] [place], [address] GAP 14 Normal 5-15 [facility] Comment on above: Performed By: #### L 500.3400, L100.0100, L500.2500, L501.2450, L501.4021 ####[facility] [address] [place], [address] GFR/1.73 sq M.predicted among non-blacks MDRD (S/P/Bld) [Vol rate/Area] 86 mL/min/{1.73_m2} Normal >60 [facility] Comment on above: Result Comment: mL/m in/1.73m2 CKD-EPI Creatinine Equation (2020) Performed By: #### L 500.3400, L100.0100, L500.2500, L501.2450, L501.4021 ####[facility] [address] [place], [address] Glucose [Mass/Vol] 79 mg/dL Normal 70-99 [facility] Comment on above: Performed By: #### L 500.3400, L100.0100, L500.2500, L501.2450, L501.4021 ####[facility] [address] [place], [address] Potassium [Moles/Vol] 4.3 mmol/L Normal 3.3-5.1 [facility] Comment on above: Performed By: #### L 500.3400, L100.0100, L500.2500, L501.2450, L501.4021 ####[facility] [address] [place], [address] Sodium [Moles/Vol] 138 mmol/L Normal 133-145 [facility] Comment on above: Performed By: #### L 500.3400, L100.0100, L500.2500, L501.2450, L501.4021 ####[facility] [address] [place], [address] Urea nitrogen [Mass/Vol] 16 mg/dL Normal 4-19 [facility] Comment on above: Performed By: #### L 500.3400, L100.0100, L500.2500, L501.2450, L501.4021 ####[facility] [address] [place], [address] Brain/Head without Contrasto n 04-22-2024 Brain/Head without Contrast Normal [facility] CBC W/Diff, Automatedon 04-07 Absolute Lymph 1.32 X10 3/uL Normal 0.83-4.51 [facility] Comment on above: Performed By: #### L 500.3400, L100.0100, L500.2500, L501.2450, L501.4021 ####[facility] [address] [place], [address] Absolute Neut 12.2 X10 3/uL High 2.0-7.7 [facility] Comment on above: Performed By: #### L 500.3400, L100.0100, L500.2500, L501.2450, L501.4021 ####[facility] [address] [place], [address] Basophils/100 WBC (Bld) 0.2 % Normal 0-1 [facility] Comment on above: Performed By: #### L 500.3400, L100.0100, L500.2500, L501.2450, L501.4021 ####[facility] [address] [place], [address] Eosinophils/100 WBC (Bld) 0.1 % Normal 0-5 [facility] Comment on above: Performed By: #### L 500.3400, L100.0100, L500.2500, L501.2450, L501.4021 ####[facility] [address] [place], [address] Erythrocyte distribution width (RBC) [Ratio] 13.6 % Normal 11.6-14.6 [facility] Comment on above: Performed By: #### L 500.3400, L100.0100, L500.2500, L501.2450, L501.4021 ####[facility] [address] [place], [address] Hematocrit (Bld) [Volume fraction] 42.9 % Normal 40-54 [facility] Comment on above: Performed By: #### L 500.3400, L100.0100, L500.2500, L501.2450, L501.4021 ####[facility] [address] [place], [address] Hemoglobin (Bld) [Mass/Vol] 14.5 g/dL Normal 13.0-16.5 [facility] Comment on above: Performed By: #### L 500.3400, L100.0100, L500.2500, L501.2450, L501.4021 ####[facility] [address] [place], [address] IG% 1.000 High 0.0-0.9 [facility] Comment on above: Result Comment: IG% - Immature Granulocytes (promyelocytes, myelocytes andmetamyelocytes) > 1% indicates that a LEFT SHIFT is Present. Performed By: #### L 500.3400, L100.0100, L500.2500, L501.2450, L501.4021 ####[facility] [address] [place], [address] Lymphocytes/100 WBC (Bld) 9.0 % Low 19-41 [facility] Comment on above: Performed By: #### L 500.3400, L100.0100, L500.2500, L501.2450, L501.4021 ####[facility] [address] [place], [address] MCH (RBC) [Entitic mass] 32.6 pg High 27.0-32.0 [facility] Comment on above: Performed By: #### L 500.3400, L100.0100, L500.2500, L501.2450, L501.4021 ####[facility] [address] [place], [address] MCHC (RBC) [Mass/Vol] 33.8 g/dL Normal 32-36 [facility] Comment on above: Performed By: #### L 500.3400, L100.0100, L500.2500, L501.2450, L501.4021 ####[facility] [address] [place], [address] MCV (RBC) [Entitic vol] 96.4 fL High 80-94 [facility] Comment on above: Performed By: #### L 500.3400, L100.0100, L500.2500, L501.2450, L501.4021 ####[facility] [address] [place], [address] Monocytes/100 WBC (Bld) 7.0 % Normal 0-10 [facility] Comment on above: Performed By: #### L 500.3400, L100.0100, L500.2500, L501.2450, L501.4021 ####[facility] [address] [place], [address] Neutrophils/100 WBC (Bld) 82.7 % High 47-70 [facility] Comment on above: Performed By: #### L 500.3400, L100.0100, L500.2500, L501.2450, L501.4021 ####[facility] [address] [place], [address] Nucleated RBC (Bld) [#/Vol] 0 10*3/uL Normal 0-5 [facility] Comment on above: Performed By: #### L 500.3400, L100.0100, L500.2500, L501.2450, L501.4021 ####[facility] [address] [place], [address] Platelet mean volume (Bld) [Entitic vol] 9.8 fL Normal 6.2-12.0 [facility] Comment on above: Performed By: #### L 500.3400, L100.0100, L500.2500, L501.2450, L501.4021 ####[facility] [address] [place], [address] Platelets (Bld) [#/Vol] 212 10*3/uL Normal 150-450 [facility] Comment on above: Performed By: #### L 500.3400, L100.0100, L500.2500, L501.2450, L501.4021 ####[facility] [address] [place], [address] RBC (Bld) [#/Vol] 4.45 10*6/uL Low 4.6-6.2 [facility] Comment on above: Performed By: #### L 500.3400, L100.0100, L500.2500, L501.2450, L501.4021 ####[facility] [address] [place], [address] RDW SD 48.8 fl High 35.1-43.9 [facility] Comment on above: Performed By: #### L 500.3400, L100.0100, L500.2500, L501.2450, L501.4021 ####[facility] [address] [place], [address] WBC (Bld) [#/Vol] 14.7 10*3/uL High 4.4-11.0 [facility] Comment on above: Performed By: #### L 500.3400, L100.0100, L500.2500, L501.2450, L501.4021 ####[facility] [address] [place], [address] Chest 1 View (Portable)on Chest 1 View (Portable) Normal [facility] Emergency Department Summary on 04-22-2024 Emergency Department Summary Normal [facility] Extremity Lower without Cont raon 04-22-2024 Extremity Lower without Contra Normal [facility] H AND P Exam - Hospitaliston 04-22-2024 H&P Exam - Hospitalist Normal [facility] HIP, UNI W/ Pelvis 2-3 Views on 04-22-2024 HIP, UNI W/ Pelvis 2-3 Views Normal [facility] L499.0042on 04-22-2024 Trop T High Sen 18 ng/L Normal <=22 [facility] Comment on above: Performed By: #### L 499.0042 ####[facility] [address] [place], [address] L501.4021on 04-22-2024 Trop T High Sen 18 ng/L Normal <=22 [facility] Comment on above: Performed By: #### L 500.3400, L100.0100, L500.2500, L501.2450, L501.4021 ####[facility] [address] [place], [address] Lipaseon 04-22-2024 Lipase [Catalytic activity/Vol] 59 U/L Normal 13-75 [facility] Comment on above: Result Comment: Nagi nelson note:LIPASE revised reference range effective 22.New Lipase methodology. Expected to produce lower valuesthan the previous assay method.NEW Reference Range: 13 - 75 U/L Performed By: #### L 500.3400, L100.0100, L500.2500, L501.2450, L501.4021 ####[facility] [address] [place], [address] Liver Profileon 04-22-2024 Albumin [Mass/Vol] 4.2 g/dL Normal 3.4-4.8 [facility] Comment on above: Performed By: #### L 500.3400, L100.0100, L500.2500, L501.2450, L501.4021 ####[facility] [address] [place], [address] ALK PHOS 69 U/L Normal 40-129 [facility] Comment on above: Performed By: #### L 500.3400, L100.0100, L500.2500, L501.2450, L501.4021 ####[facility] [address] [place], [address] ALT [Catalytic activity/Vol] 29 U/L Normal <=46 [facility] Comment on above: Performed By: #### L 500.3400, L100.0100, L500.2500, L501.2450, L501.4021 ####[facility] [address] [place], [address] AST [Catalytic activity/Vol] 33 U/L Normal <=37 [facility] Comment on above: Performed By: #### L 500.3400, L100.0100, L500.2500, L501.2450, L501.4021 ####[facility] [address] [place], [address] Bilirubin [Mass/Vol] 0.56 mg/dL Normal 0.00-1.30 [facility] Comment on above: Performed By: #### L 500.3400, L100.0100, L500.2500, L501.2450, L501.4021 ####[facility] [address] [place], [address] Bilirubin.direct [Mass/Vol] 0.32 mg/dL High 0.00-0.30 [facility] Comment on above: Performed By: #### L 500.3400, L100.0100, L500.2500, L501.2450, L501.4021 ####[facility] [address] [place], [address] Globulin (S) [Mass/Vol] 2.9 g/dL Normal 2.2-4.2 [facility] Comment on above: Performed By: #### L 500.3400, L100.0100, L500.2500, L501.2450, L501.4021 ####[facility] [address] [place], [address] T PROT 7.1 g/dL Normal 5.9-8.4 [facility] Comment on above: Performed By: #### L 500.3400, L100.0100, L500.2500, L501.2450, L501.4021 ####[facility] [address] [place], [address] Lumbar Spine 2 or 3 Viewson 04-22-2024 Lumbar Spine 2 or 3 Views Normal [facility] Prothrombin Time w/INRon - INR Coag (PPP) [Relative time] 0.9 {INR} Normal [facility] Comment on above: Performed By: #### L 300.3900 ####[facility] [address] [place], [address] PT Coag (PPP) [Time] 12.3 s Normal 11.7-14.9 [facility] Comment on above: Performed By: #### L 300.3900 ####[facility] [address] [place], [address] Spine Cervical without Contr ason 04-22-2024 Spine Cervical without Contras Normal [facility] CBC W/Diff, Automatedon - Absolute Lymph 0.78 X10 3/uL Low 0.83-4.51 [facility] Comment on above: Performed By: #### L 100.0100, L500.4050, L501.2450 ####[facility] [address] [place], [address] Absolute Neut 3.2 X10 3/uL Normal 2.0-7.7 [facility] Comment on above: Performed By: #### L 100.0100, L500.4050, L501.2450 ####[facility] [address] [place], [address] Basophils/100 WBC (Bld) 0.7 % Normal 0-1 [facility] Comment on above: Performed By: #### L 100.0100, L500.4050, L501.2450 ####[facility] [address] [place], [address] Eosinophils/100 WBC (Bld) 0.2 % Normal 0-5 [facility] Comment on above: Performed By: #### L 100.0100, L500.4050, L501.2450 ####[facility] [address] [place], [address] Erythrocyte distribution width (RBC) [Ratio] 13.7 % Normal 11.6-14.6 [facility] Comment on above: Performed By: #### L 100.0100, L500.4050, L501.2450 ####[facility] [address] [place], [address] Hematocrit (Bld) [Volume fraction] 44.9 % Normal 40-54 [facility] Comment on above: Performed By: #### L 100.0100, L500.4050, L501.2450 ####[facility] [address] [place], [address] Hemoglobin (Bld) [Mass/Vol] 14.9 g/dL Normal 13.0-16.5 [facility] Comment on above: Performed By: #### L 100.0100, L500.4050, L501.2450 ####[facility] [address] [place], [address] IG% 0.400 Normal 0.0-0.9 [facility] Comment on above: Result Comment: IG% - Immature Granulocytes (promyelocytes, myelocytes andmetamyelocytes) > 1% indicates that a LEFT SHIFT is Present. Performed By: #### L 100.0100, L500.4050, L501.2450 ####[facility] [address] [place], [address] Lymphocytes/100 WBC (Bld) 17.0 % Low 19-41 [facility] Comment on above: Performed By: #### L 100.0100, L500.4050, L501.2450 ####[facility] [address] [place], [address] MCH (RBC) [Entitic mass] 32.0 pg Normal 27.0-32.0 [facility] Comment on above: Performed By: #### L 100.0100, L500.4050, L501.2450 ####[facility] [address] [place], [address] MCHC (RBC) [Mass/Vol] 33.2 g/dL Normal 32-36 [facility] Comment on above: Performed By: #### L 100.0100, L500.4050, L501.2450 ####[facility] [address] [place], [address] MCV (RBC) [Entitic vol] 96.4 fL High 80-94 [facility] Comment on above: Performed By: #### L 100.0100, L500.4050, L501.2450 ####[facility] [address] [place], [address] Monocytes/100 WBC (Bld) 12.4 % High 0-10 [facility] Comment on above: Performed By: #### L 100.0100, L500.4050, L501.2450 ####[facility] [address] [place], [address] Neutrophils/100 WBC (Bld) 69.3 % Normal 47-70 [facility] Comment on above: Performed By: #### L 100.0100, L500.4050, L501.2450 ####[facility] [address] [place], [address] Nucleated RBC (Bld) [#/Vol] 0 10*3/uL Normal 0-5 [facility] Comment on above: Performed By: #### L 100.0100, L500.4050, L501.2450 ####[facility] [address] [place], [address] Platelet mean volume (Bld) [Entitic vol] 9.6 fL Normal 6.2-12.0 [facility] Comment on above: Performed By: #### L 100.0100, L500.4050, L501.2450 ####[facility] [address] [place], [address] Platelets (Bld) [#/Vol] 240 10*3/uL Normal 150-450 [facility] Comment on above: Performed By: #### L 100.0100, L500.4050, L501.2450 ####[facility] [address] [place], [address] RBC (Bld) [#/Vol] 4.66 10*6/uL Normal 4.6-6.2 [facility] Comment on above: Performed By: #### L 100.0100, L500.4050, L501.2450 ####[facility] [address] [place], [address] RDW SD 48.6 fl High 35.1-43.9 [facility] Comment on above: Performed By: #### L 100.0100, L500.4050, L501.2450 ####[facility] [address] [place], [address] WBC (Bld) [#/Vol] 4.6 10*3/uL Normal 4.4-11.0 [facility] Comment on above: Performed By: #### L 100.0100, L500.4050, L501.2450 ####[facility] [address] [place], [address] Comprehensive Metabolic Prof [facility] 03-07-2024 Albumin [Mass/Vol] 3.9 g/dL Normal 3.2-5.0 [facility] Comment on above: Performed By: #### L 100.0100, L500.4050, L501.2450 ####[facility] [address] [place], [address] Albumin/Globulin [Mass ratio] 0.9 {ratio} Normal 0.9-2.4 [facility] Comment on above: Performed By: #### L 100.0100, L500.4050, L501.2450 ####[facility] [address] [place], [address] ALK P 77 U/L Normal 45-117 [facility] Comment on above: Performed By: #### L 100.0100, L500.4050, L501.2450 ####[facility] [address] [place], [address] ALT [Catalytic activity/Vol] 56 U/L Normal 16-61 [facility] Comment on above: Performed By: #### L 100.0100, L500.4050, L501.2450 ####[facility] [address] [place], [address] AST [Catalytic activity/Vol] 67 U/L High 15-37 [facility] Comment on above: Performed By: #### L 100.0100, L500.4050, L501.2450 ####[facility] [address] [place], [address] Bilirubin [Mass/Vol] 1.10 mg/dL High 0.20-1.00 [facility] Comment on above: Result Comment: For patients on eltrombopag therapy, use of Dimension [place] TBIL is not recommended. Performed By: #### L 100.0100, L500.4050, L501.2450 ####[facility] [address] [place], [address] BUN/CRE 8.1 RATIO Low 10-20 [facility] Comment on above: Performed By: #### L 100.0100, L500.4050, L501.2450 ####[facility] [address] [place], [address] CA,Total 10.2 mg/dL High 8.5-10.1 [facility] Comment on above: Performed By: #### L 100.0100, L500.4050, L501.2450 ####[facility] [address] [place], [address] Chloride [Moles/Vol] 95 mmol/L Low 98-107 [facility] Comment on above: Performed By: #### L 100.0100, L500.4050, [id number] ####[facility] [address] [place], [address] CO2 [Moles/Vol] 34.0 mmol/L High 21.0-32.0 [facility] Comment on above: Performed By: #### L 100.0100, L500.4050, L501.2450 ####[facility] [address] [place], [address] Creatinine [Mass/Vol] 0.99 mg/dL Normal 0.70-1.30 [facility] Comment on above: Result Comment: The validity of the calculated GFR GFRAA in patients over70 years has not been determined. Clinical correlation isessential. Performed By: #### L 100.0100, L500.4050, L501.2450 ####[facility] [address] [place], [address] ECRCL 80.87 ml/min Normal [facility] Comment on above: Performed By: #### L 100.0100, L500.4050, L501.2450 ####[facility] [address] [place], [address] EST GFR - AA 94 mL/min Normal >60 [facility] Comment on above: Result Comment: Afri can Lithuanian GFR Calc Performed By: #### L 100.0100, L500.4050, L501.2450 ####[facility] [address] [place], [address] GAP 6 Normal 5-15 [facility] Comment on above: Performed By: #### L 100.0100, L500.4050, L501.2450 ####[facility] [address] [place], [address] GFR/1.73 sq M.predicted among non-blacks MDRD (S/P/Bld) [Vol rate/Area] 78 mL/min/{1.73_m2} Normal >60 [facility] Comment on above: Result Comment: Non- GFR Calc Performed By: #### L 100.0100, L500.4050, L501.2450 ####[facility] [address] [place], [address] Globulin (S) [Mass/Vol] 4.2 g/dL Normal 2.2-4.2 [facility] Comment on above: Performed By: #### L 100.0100, L500.4050, L501.2450 ####[facility] [address] [place], [address] Glucose [Mass/Vol] 101 mg/dL Normal 74-106 [facility] Comment on above: Result Comment: Fast ing Glucose result from 100 to 125 mg/dLsuggests IMPAIRED HOMEOSTASIS per A.D.A. criteria. Performed By: #### L 100.0100, L500.4050, L501.2450 ####[facility] [address] [place], [address] Potassium [Moles/Vol] 3.7 mmol/L Normal 3.5-5.1 [facility] Comment on above: Performed By: #### L 100.0100, L500.4050, L501.2450 ####[facility] [address] [place], [address] Sodium [Moles/Vol] 135 mmol/L Low 136-145 [facility] Comment on above: Performed By: #### L 100.0100, L500.4050, L501.2450 ####[facility] [address] [place], [address] T PROT 8.1 g/dL Normal 6.4-8.2 [facility] Comment on above: Performed By: #### L 100.0100, L500.4050, L501.2450 ####[facility] [address] [place], [address] Urea nitrogen [Mass/Vol] 8 mg/dL Normal 7-18 [facility] Comment on above: Performed By: #### L 100.0100, L500.4050, L501.2450 ####[facility] [address] [place], [address] Emergency Department Summary on 03-07-2024 Emergency Department Summary Normal [facility] Lipaseon 03-07-2024 Lipase [Catalytic activity/Vol] 58 U/L Normal 13-75 [facility] Comment on above: Result Comment: Nagi nelson note:LIPASE revised reference range effective 22.New Lipase methodology. Expected to produce lower valuesthan the previous assay method.NEW Reference Range: 13 - 75 U/L Performed By: #### L 100.0100, L500.4050, L501.2450 ####[facility] [address] [place], [address] CBC W/Diff, Automatedon 02-08 Absolute Lymph 1.18 X10 3/uL Normal 0.83-4.51 [facility] Comment on above: Performed By: #### L 100.0100 ####[facility] [address] [place], [address] Absolute Neut 2.0 X10 3/uL Normal 2.0-7.7 [facility] Comment on above: Performed By: #### L 100.0100 ####[facility] [address] [place], [address] Basophils/100 WBC (Bld) 1.2 % High 0-1 [facility] Comment on above: Performed By: #### L 100.0100 ####[facility] [address] [place], [address] Eosinophils/100 WBC (Bld) 2.1 % Normal 0-5 [facility] Comment on above: Performed By: #### L 100.0100 ####[facility] [address] [place], [address] Erythrocyte distribution width (RBC) [Ratio] 13.8 % Normal 11.6-14.6 [facility] Comment on above: Performed By: #### L 100.0100 ####[facility] [address] [place], [address] Hematocrit (Bld) [Volume fraction] 42.2 % Normal 40-54 [facility] Comment on above: Performed By: #### L 100.0100 ####[facility] [address] [place], [address] Hemoglobin (Bld) [Mass/Vol] 13.8 g/dL Normal 13.0-16.5 [facility] Comment on above: Performed By: #### L 100.0100 ####[facility] [address] [place], [address] IG% 0.000 Normal 0.0-0.9 [facility] Comment on above: Result Comment: IG% - Immature Granulocytes (promyelocytes, myelocytes andmetamyelocytes) > 1% indicates that a LEFT SHIFT is Present. Performed By: #### L 100.0100 ####[facility] [address] [place], [address] Lymphocytes/100 WBC (Bld) 28.2 % Normal 19-41 [facility] Comment on above: Performed By: #### L 100.0100 ####[facility] [address] [place], [address] MCH (RBC) [Entitic mass] 32.9 pg High 27.0-32.0 [facility] Comment on above: Performed By: #### L 100.0100 ####[facility] [address] [place], [address] MCHC (RBC) [Mass/Vol] 32.7 g/dL Normal 32-36 [facility] Comment on above: Performed By: #### L 100.0100 ####[facility] [address] [place], [address] MCV (RBC) [Entitic vol] 100.5 fL High 80-94 [facility] Comment on above: Performed By: #### L 100.0100 ####[facility] [address] [place], [address] Monocytes/100 WBC (Bld) 20.8 % High 0-10 [facility] Comment on above: Performed By: #### L 100.0100 ####[facility] [address] [place], [address] Neutrophils/100 WBC (Bld) 47.7 % Normal 47-70 [facility] Comment on above: Performed By: #### L 100.0100 ####[facility] [address] [place], [address] Nucleated RBC (Bld) [#/Vol] 0 10*3/uL Normal 0-5 [facility] Comment on above: Performed By: #### L 100.0100 ####[facility] [address] [place], [address] Platelet mean volume (Bld) [Entitic vol] 10.5 fL Normal 6.2-12.0 [facility] Comment on above: Performed By: #### L 100.0100 ####[facility] [address] [place], [address] Platelets (Bld) [#/Vol] 199 10*3/uL Normal 150-450 [facility] Comment on above: Performed By: #### L 100.0100 ####[facility] [address] [place], [address] RBC (Bld) [#/Vol] 4.20 10*6/uL Low 4.6-6.2 [facility] Comment on above: Performed By: #### L 100.0100 ####[facility] [address] [place], [address] RDW SD 50.9 fl High 35.1-43.9 [facility] Comment on above: Performed By: #### L 100.0100 ####[facility] [address] [place], [address] WBC (Bld) [#/Vol] 4.2 10*3/uL Low 4.4-11.0 [facility] Comment on above: Performed By: #### L 100.0100 ####[facility] [address] [place], [address] Basic Metabolic Profile (BMP )on 02-20-2024 BUN/CRE 8.8 RATIO Low 10-20 [facility] Comment on above: Performed By: #### L 100.0100, L500.2500 ####[facility] [address] [place], [address] CA,Total 8.8 mg/dL Normal 8.5-10.1 [facility] Comment on above: Performed By: #### L 100.0100, L500.2500 ####[facility] [address] [place], [address] Chloride [Moles/Vol] 99 mmol/L Normal 98-107 [facility] Comment on above: Performed By: #### L 100.0100, L500.2500 ####[facility] [address] [place], [address] CO2 [Moles/Vol] 28.0 mmol/L Normal 21.0-32.0 [facility] Comment on above: Performed By: #### L 100.0100, L500.2500 ####[facility] [address] [place], [address] Creatinine [Mass/Vol] 0.80 mg/dL Normal 0.70-1.30 [facility] Comment on above: Result Comment: The validity of the calculated GFR GFRAA in patients over70 years has not been determined. Clinical correlation isessential. Performed By: #### L 100.0100, L500.2500 ####[facility] [address] [place], [address] ECRCL 103.48 ml/min Normal [facility] Comment on above: Performed By: #### L 100.0100, L500.2500 ####[facility] [address] [place], [address] EST GFR - AA 122 mL/min Normal >60 [facility] Comment on above: Result Comment: Afri can Lithuanian GFR Calc Performed By: #### L 100.0100, L500.2500 ####[facility] [address] [place], [address] GAP 11 Normal 5-15 [facility] Comment on above: Performed By: #### L 100.0100, L500.2500 ####[facility] [address] [place], [address] GFR/1.73 sq M.predicted among non-blacks MDRD (S/P/Bld) [Vol rate/Area] 101 mL/min/{1.73_m2} Normal >60 [facility] Comment on above: Result Comment: Non- GFR Calc Performed By: #### L 100.0100, L500.2500 ####[facility] [address] [place], [address] Glucose [Mass/Vol] 80 mg/dL Normal 74-106 [facility] Comment on above: Performed By: #### L 100.0100, L500.2500 ####[facility] [address] [place], [address] Potassium [Moles/Vol] 3.8 mmol/L Normal 3.5-5.1 [facility] Comment on above: Performed By: #### L 100.0100, L500.2500 ####[facility] [address] [place], [address] Sodium [Moles/Vol] 138 mmol/L Normal 136-145 [facility] Comment on above: Performed By: #### L 100.0100, L500.2500 ####[facility] [address] [place], [address] Urea nitrogen [Mass/Vol] 7 mg/dL Normal 7-18 [facility] Comment on above: Performed By: #### L 100.0100, L500.2500 ####[facility] [address] [place], [address] CBC W/Diff, Automatedon - Absolute Lymph 1.34 X10 3/uL Normal 0.83-4.51 [facility] Comment on above: Performed By: #### L 100.0100, L500.2500 ####[facility] [address] [place], [address] Absolute Neut 3.0 X10 3/uL Normal 2.0-7.7 [facility] Comment on above: Performed By: #### L 100.0100, L500.2500 ####[facility] [address] [place], [address] Basophils/100 WBC (Bld) 0.4 % Normal 0-1 [facility] Comment on above: Performed By: #### L 100.0100, L500.2500 ####[facility] [address] [place], [address] Eosinophils/100 WBC (Bld) 2.0 % Normal 0-5 [facility] Comment on above: Performed By: #### L 100.0100, L500.2500 ####[facility] [address] [place], [address] Erythrocyte distribution width (RBC) [Ratio] 14.2 % Normal 11.6-14.6 [facility] Comment on above: Performed By: #### L 100.0100, L500.2500 ####[facility] [address] [place], [address] Hematocrit (Bld) [Volume fraction] 41.0 % Normal 40-54 [facility] Comment on above: Performed By: #### L 100.0100, L500.2500 ####[facility] [address] [place], [address] Hemoglobin (Bld) [Mass/Vol] 13.7 g/dL Normal 13.0-16.5 [facility] Comment on above: Performed By: #### L 100.0100, L500.2500 ####[facility] [address] [place], [address] IG% 0.400 Normal 0.0-0.9 [facility] Comment on above: Result Comment: IG% - Immature Granulocytes (promyelocytes, myelocytes andmetamyelocytes) > 1% indicates that a LEFT SHIFT is Present. Performed By: #### L 100.0100, L500.2500 ####[facility] [address] [place], [address] Lymphocytes/100 WBC (Bld) 26.2 % Normal 19-41 [facility] Comment on above: Performed By: #### L 100.0100, L500.2500 ####[facility] [address] [place], [address] MCH (RBC) [Entitic mass] 32.9 pg High 27.0-32.0 [facility] Comment on above: Performed By: #### L 100.0100, L500.2500 ####[facility] [address] [place], [address] MCHC (RBC) [Mass/Vol] 33.4 g/dL Normal 32-36 [facility] Comment on above: Performed By: #### L 100.0100, L500.2500 ####[facility] [address] [place], [address] MCV (RBC) [Entitic vol] 98.6 fL High 80-94 [facility] Comment on above: Performed By: #### L 100.0100, L500.2500 ####[facility] [address] [place], [address] Monocytes/100 WBC (Bld) 12.3 % High 0-10 [facility] Comment on above: Performed By: #### L 100.0100, L500.2500 ####[facility] [address] [place], [address] Neutrophils/100 WBC (Bld) 58.7 % Normal 47-70 [facility] Comment on above: Performed By: #### L 100.0100, L500.2500 ####[facility] [address] [place], [address] Nucleated RBC (Bld) [#/Vol] 0 10*3/uL Normal 0-5 [facility] Comment on above: Performed By: #### L 100.0100, L500.2500 ####[facility] [address] [place], [address] Platelet mean volume (Bld) [Entitic vol] 9.4 fL Normal 6.2-12.0 [facility] Comment on above: Performed By: #### L 100.0100, L500.2500 ####[facility] [address] [place], [address] Platelets (Bld) [#/Vol] 107 10*3/uL Low 150-450 [facility] Comment on above: Performed By: #### L 100.0100, L500.2500 ####[facility] [address] [place], [address] RBC (Bld) [#/Vol] 4.16 10*6/uL Low 4.6-6.2 [facility] Comment on above: Performed By: #### L 100.0100, L500.2500 ####[facility] [address] [place], [address] RDW SD 50.7 fl High 35.1-43.9 [facility] Comment on above: Performed By: #### L 100.0100, L500.2500 ####[facility] [address] [place], [address] WBC (Bld) [#/Vol] 5.1 10*3/uL Normal 4.4-11.0 [facility] Comment on above: Performed By: #### L 100.0100, L500.2500 ####[facility] [address] [place], [address] Emergency Department Summary on 02-20-2024 Emergency Department Summary Normal [facility] Plastic Surgery Visit Report on 02-03-2024 Plastic Surgery Visit Report Normal [facility] Plastic Surgery Visit Report on 01-27-2024 Plastic Surgery Visit Report Normal [facility] Surgery Specimen Level Ibis 01-27-2024 Surgery Specimen Level IV Normal [facility] Comment on above: Performed By: #### P SUIV ####[facility] [address] [place], [address] Plastic Surgery Visit Report on 12-30-2023 Plastic Surgery Visit Report Normal [facility] 12 Lead EKGon 12-18-2023 12 Lead EKG Normal [facility] CBC W/Diff, Automatedon - Absolute Lymph 2.50 X10 3/uL Normal 0.83-4.51 [facility] Comment on above: Performed By: #### L 501.4020, L501.2450, L500.4050, L100.0100 ####[facility] [address] [place], [address] Absolute Neut 3.5 X10 3/uL Normal 2.0-7.7 [facility] Comment on above: Performed By: #### L 501.4020, L501.2450, L500.4050, L100.0100 ####[facility] [address] [place], [address] Basophils/100 WBC (Bld) 0.6 % Normal 0-1 [facility] Comment on above: Performed By: #### L 501.4020, L501.2450, L500.4050, L100.0100 ####[facility] [address] [place], [address] Eosinophils/100 WBC (Bld) 0.7 % Normal 0-5 [facility] Comment on above: Performed By: #### L 501.4020, L501.2450, L500.4050, L100.0100 ####[facility] [address] [place], [address] Erythrocyte distribution width (RBC) [Ratio] 13.4 % Normal 11.6-14.6 [facility] Comment on above: Performed By: #### L 501.4020, L501.2450, L500.4050, L100.0100 ####[facility] [address] [place], [address] Hematocrit (Bld) [Volume fraction] 43.9 % Normal 40-54 [facility] Comment on above: Performed By: #### L 501.4020, L501.2450, L500.4050, L100.0100 ####[facility] [address] [place], [address] Hemoglobin (Bld) [Mass/Vol] 15.1 g/dL Normal 13.0-16.5 [facility] Comment on above: Performed By: #### L 501.4020, L501.2450, L500.4050, L100.0100 ####[facility] [address] [place], [address] IG% 0.300 Normal 0.0-0.9 [facility] Comment on above: Result Comment: IG% - Immature Granulocytes (promyelocytes, myelocytes andmetamyelocytes) > 1% indicates that a LEFT SHIFT is Present. Performed By: #### L 501.4020, L501.2450, L500.4050, L100.0100 ####[facility] [address] [place], [address] Lymphocytes/100 WBC (Bld) 36.9 % Normal 19-41 [facility] Comment on above: Performed By: #### L 501.4020, L501.2450, L500.4050, L100.0100 ####[facility] [address] [place], [address] MCH (RBC) [Entitic mass] 33.8 pg High 27.0-32.0 [facility] Comment on above: Performed By: #### L 501.4020, L501.2450, L500.4050, L100.0100 ####[facility] [address] [place], [address] MCHC (RBC) [Mass/Vol] 34.4 g/dL Normal 32-36 [facility] Comment on above: Performed By: #### L 501.4020, L501.2450, L500.4050, L100.0100 ####[facility] [address] [place], [address] MCV (RBC) [Entitic vol] 98.2 fL High 80-94 [facility] Comment on above: Performed By: #### L 501.4020, L501.2450, L500.4050, L100.0100 ####[facility] [address] [place], [address] Monocytes/100 WBC (Bld) 9.7 % Normal 0-10 [facility] Comment on above: Performed By: #### L 501.4020, L501.2450, L500.4050, L100.0100 ####[facility] [address] [place], [address] Neutrophils/100 WBC (Bld) 51.8 % Normal 47-70 [facility] Comment on above: Performed By: #### L 501.4020, L501.2450, L500.4050, L100.0100 ####[facility] [address] [place], [address] Nucleated RBC (Bld) [#/Vol] 0 10*3/uL Normal 0-5 [facility] Comment on above: Performed By: #### L 501.4020, L501.2450, L500.4050, L100.0100 ####[facility] [address] [place], [address] Platelet mean volume (Bld) [Entitic vol] 9.7 fL Normal 6.2-12.0 [facility] Comment on above: Performed By: #### L 501.4020, L501.2450, L500.4050, L100.0100 ####[facility] [address] [place], [address] Platelets (Bld) [#/Vol] 235 10*3/uL Normal 150-450 [facility] Comment on above: Performed By: #### L 501.4020, L501.2450, L500.4050, L100.0100 ####[facility] [address] [place], [address] RBC (Bld) [#/Vol] 4.47 10*6/uL Low 4.6-6.2 [facility] Comment on above: Performed By: #### L 501.4020, L501.2450, L500.4050, L100.0100 ####[facility] [address] [place], [address] RDW SD 49.0 fl High 35.1-43.9 [facility] Comment on above: Performed By: #### L 501.4020, L501.2450, L500.4050, L100.0100 ####[facility] [address] [place], [address] WBC (Bld) [#/Vol] 6.8 10*3/uL Normal 4.4-11.0 [facility] Comment on above: Performed By: #### L 501.4020, L501.2450, L500.4050, L100.0100 ####[facility] [address] [place], [address] Comprehensive Metabolic Prof nymunir 12-18-2023 Albumin [Mass/Vol] 3.6 g/dL Normal 3.2-5.0 [facility] Comment on above: Order Comment: 'TROP ' Serial specimen #1, #2 or #3: 1 Performed By: #### L 501.4020, L501.2450, L500.4050, L100.0100 ####[facility] [address] [place], [address] Albumin/Globulin [Mass ratio] 0.9 {ratio} Normal 0.9-2.4 [facility] Comment on above: Order Comment: 'TROP ' Serial specimen #1, #2 or #3: 1 Performed By: #### L 501.4020, L501.2450, L500.4050, L100.0100 ####[facility] [address] [place], [address] ALK P 74 U/L Normal 45-117 [facility] Comment on above: Order Comment: 'TROP ' Serial specimen #1, #2 or #3: 1 Performed By: #### L 501.4020, L501.2450, L500.4050, L100.0100 ####[facility] [address] [place], [address] ALT [Catalytic activity/Vol] 29 U/L Normal 16-61 [facility] Comment on above: Order Comment: 'TROP ' Serial specimen #1, #2 or #3: 1 Performed By: #### L 501.4020, L501.2450, L500.4050, L100.0100 ####[facility] [address] [place], [address] AST [Catalytic activity/Vol] 41 U/L High 15-37 [facility] Comment on above: Order Comment: 'TROP ' Serial specimen #1, #2 or #3: 1 Performed By: #### L 501.4020, L501.2450, L500.4050, L100.0100 ####[facility] [address] [place], [address] Bilirubin [Mass/Vol] 0.30 mg/dL Normal 0.20-1.00 [facility] Comment on above: Order Comment: 'TROP ' Serial specimen #1, #2 or #3: 1 Result Comment: For patients on eltrombopag therapy, use of Dimension [place] TBIL is not recommended. Performed By: #### L 501.4020, L501.2450, L500.4050, L100.0100 ####[facility] [address] [place], [address] BUN/CRE 13.9 RATIO Normal 10-20 [facility] Comment on above: Order Comment: 'TROP ' Serial specimen #1, #2 or #3: 1 Performed By: #### L 501.4020, L501.2450, L500.4050, L100.0100 ####[facility] [address] [place], [address] CA,Total 9.2 mg/dL Normal 8.5-10.1 [facility] Comment on above: Order Comment: 'TROP ' Serial specimen #1, #2 or #3: 1 Performed By: #### L 501.4020, L501.2450, L500.4050, L100.0100 ####[facility] [address] [place], [address] Chloride [Moles/Vol] 105 mmol/L Normal 98-107 [facility] Comment on above: Order Comment: 'TROP ' Serial specimen #1, #2 or #3: 1 Performed By: #### L 501.4020, L501.2450, L500.4050, L100.0100 ####[facility] [address] [place], [address] CO2 [Moles/Vol] 25.0 mmol/L Normal 21.0-32.0 [facility] Comment on above: Order Comment: 'TROP ' Serial specimen #1, #2 or #3: 1 Performed By: #### L 501.4020, L501.2450, L500.4050, L100.0100 ####[facility] [address] [place], [address] Creatinine [Mass/Vol] 1.08 mg/dL Normal 0.70-1.30 [facility] Comment on above: Order Comment: 'TROP ' Serial specimen #1, #2 or #3: 1 Result Comment: The validity of the calculated GFR GFRAA in patients over70 years has not been determined. Clinical correlation isessential. Performed By: #### L 501.4020, L501.2450, L500.4050, L100.0100 ####[facility] [address] [place], [address] ECRCL 75.77 ml/min Normal [facility] Comment on above: Order Comment: 'TROP ' Serial specimen #1, #2 or #3: 1 Performed By: #### L 501.4020, L501.2450, L500.4050, L100.0100 ####[facility] [address] [place], [address] EST GFR - AA 86 mL/min Normal >60 [facility] Comment on above: Order Comment: 'TROP ' Serial specimen #1, #2 or #3: 1 Result Comment: Afri can Lithuanian GFR Calc Performed By: #### L 501.4020, L501.2450, L500.4050, L100.0100 ####[facility] [address] [place], [address] GAP 8 Normal 5-15 [facility] Comment on above: Order Comment: 'TROP ' Serial specimen #1, #2 or #3: 1 Performed By: #### L 501.4020, L501.2450, L500.4050, L100.0100 ####[facility] [address] [place], [address] GFR/1.73 sq M.predicted among non-blacks MDRD (S/P/Bld) [Vol rate/Area] 71 mL/min/{1.73_m2} Normal >60 [facility] Comment on above: Order Comment: 'TROP ' Serial specimen #1, #2 or #3: 1 Result Comment: Non- GFR Calc Performed By: #### L 501.4020, L501.2450, L500.4050, L100.0100 ####[facility] [address] [place], [address] Globulin (S) [Mass/Vol] 3.9 g/dL Normal 2.2-4.2 [facility] Comment on above: Order Comment: 'TROP ' Serial specimen #1, #2 or #3: 1 Performed By: #### L 501.4020, L501.2450, L500.4050, L100.0100 ####[facility] [address] [place], [address] Glucose [Mass/Vol] 107 mg/dL High 74-106 [facility] Comment on above: Order Comment: 'TROP ' Serial specimen #1, #2 or #3: 1 Result Comment: Fast ing Glucose result from 100 to 125 mg/dLsuggests IMPAIRED HOMEOSTASIS per A.D.A. criteria. Performed By: #### L 501.4020, L501.2450, L500.4050, L100.0100 ####[facility] [address] [place], [address] Potassium [Moles/Vol] 4.2 mmol/L Normal 3.5-5.1 [facility] Comment on above: Order Comment: 'TROP ' Serial specimen #1, #2 or #3: 1 Performed By: #### L 501.4020, L501.2450, L500.4050, L100.0100 ####[facility] [address] [place], [address] Sodium [Moles/Vol] 138 mmol/L Normal 136-145 [facility] Comment on above: Order Comment: 'TROP ' Serial specimen #1, #2 or #3: 1 Performed By: #### L 501.4020, L501.2450, L500.4050, L100.0100 ####[facility] [address] [place], [address] T PROT 7.5 g/dL Normal 6.4-8.2 [facility] Comment on above: Order Comment: 'TROP ' Serial specimen #1, #2 or #3: 1 Performed By: #### L 501.4020, L501.2450, L500.4050, L100.0100 ####[facility] [address] [place], [address] Urea nitrogen [Mass/Vol] 15 mg/dL Normal 7-18 [facility] Comment on above: Order Comment: 'TROP ' Serial specimen #1, #2 or #3: 1 Performed By: #### L 501.4020, L501.2450, L500.4050, L100.0100 ####[facility] [address] [place], [address] Emergency Department Summary on 12-18-2023 Emergency Department Summary Normal [facility] L501.4020on 12-18-2023 TROPONIN-I HS 14 pg/mL Normal 3.0-78.0 [facility] Comment on above: Order Comment: 'TROP ' Serial specimen #1, #2 or #3: 1 Result Comment: Plea se Note: New Test Units and Gender Specific Reference Ranges. For more information see Policy Stat Procedure [place] High Sensitivity Troponin (TNIH) and attachments. Performed By: #### L 501.4020, L501.2450, L500.4050, L100.0100 ####[facility] [address] [place], [address] Lipaseon 12-18-2023 Lipase [Catalytic activity/Vol] 58 U/L Normal 13-75 [facility] Comment on above: Order Comment: 'TROP ' Serial specimen #1, #2 or #3: 1 Result Comment: Plea se note:LIPASE revised reference range effective 22.New Lipase methodology. Expected to produce lower valuesthan the previous assay method.NEW Reference Range: 13 - 75 U/L Performed By: #### L 501.4020, L501.2450, L500.4050, L100.0100 ####[facility] [address] [place], [address] Urinalysis, Completeon 12-17 BACTERIA Normal None Seen [facility] Comment on above: Order Comment: CLEAN CATCH Result Comment: PT D ISCHARGED Performed By: #### L 400.0001 ####[facility] [address] [place], [address] BILIRUBIN URINE Normal Negative [facility] Comment on above: Order Comment: CLEAN CATCH Result Comment: PT D ISCHARGED Performed By: #### L 400.0001 ####[facility] [address] [place], [address] Clarity (U) Normal Clear [facility] Comment on above: Order Comment: CLEAN CATCH Result Comment: PT D ISCHARGED Performed By: #### L 400.0001 ####[facility] [address] [place], [address] Color (U) Normal Yellow [facility] Comment on above: Order Comment: CLEAN CATCH Result Comment: PT D ISCHARGED Performed By: #### L 400.0001 ####[facility] [address] [place], [address] EPI,SQUAMOUS Normal 0-5 [facility] Comment on above: Order Comment: CLEAN CATCH Result Comment: PT D ISCHARGED Performed By: #### L 400.0001 ####[facility] [address] [place], [address] GLUCOSE, UR Normal Normal [facility] Comment on above: Order Comment: CLEAN CATCH Result Comment: PT D ISCHARGED Performed By: #### L 400.0001 ####[facility] [address] [place], [address] KETONE UR Normal Negative [facility] Comment on above: Order Comment: CLEAN CATCH Result Comment: PT D ISCHARGED Performed By: #### L 400.0001 ####[facility] [address] [place], [address] LEUK ESTERASE Normal Negative [facility] Comment on above: Order Comment: CLEAN CATCH Result Comment: PT D ISCHARGED Performed By: #### L 400.0001 ####[facility] [address] [place], [address] Mucus Ql (Urine sed) Normal [facility] Comment on above: Order Comment: CLEAN CATCH Result Comment: PT D ISCHARGED Performed By: #### L 400.0001 ####[facility] [address] [place], [address] Nitrite Ql (U) Normal Negative [facility] Comment on above: Order Comment: CLEAN CATCH Result Comment: PT D ISCHARGED Performed By: #### L 400.0001 ####[facility] [address] [place], [address] OCCULT BLOOD-UR Normal Negative [facility] Comment on above: Order Comment: CLEAN CATCH Result Comment: PT D ISCHARGED Performed By: #### L 400.0001 ####[facility] [address] [facility] [address] pH UR Normal 5.0 - 8.0 [facility] Comment on above: Order Comment: CLEAN CATCH Result Comment: PT D ISCHARGED Performed By: #### L 400.0001 ####[facility] [address] [place], [address] PROT DIPSTX Normal Negative [facility] Comment on above: Order Comment: CLEAN CATCH Result Comment: PT D ISCHARGED Performed By: #### L 400.0001 ####[facility] [address] [place], [address] RBC Normal 0-5 [facility] Comment on above: Order Comment: CLEAN CATCH Result Comment: PT D ISCHARGED Performed By: #### L 400.0001 ####[facility] [address] [place], [address] SP.GR. DIPSTX Normal 1.002-1.030 [facility] Comment on above: Order Comment: CLEAN CATCH Result Comment: PT D ISCHARGED Performed By: #### L 400.0001 ####[facility] [address] [place], [address] UR Preservative Normal [facility] Comment on above: Order Comment: CLEAN CATCH Result Comment: PT D ISCHARGED Performed By: #### L 400.0001 ####[facility] [address] [place], [address] UROBILI Normal Normal [facility] Comment on above: Order Comment: CLEAN CATCH Result Comment: PT D ISCHARGED Performed By: #### L 400.0001 ####[facility] [address] [place], [address] WBC Normal 0-5 [facility] Comment on above: Order Comment: CLEAN CATCH Result Comment: PT D ISCHARGED Performed By: #### L 400.0001 ####[facility] [address] [place], [address] Lipaseon 12-09-2023 Lipase [Catalytic activity/Vol] 58 U/L Normal 13-75 [facility] Comment on above: Result Comment: Nagi nelson note:LIPASE revised reference range effective 22.New Lipase methodology. Expected to produce lower valuesthan the previous assay method.NEW Reference Range: 13 - 75 U/L Performed By: #### L 501.2450, L500.3400 ####[facility] [address] [place], [address] Liver Profileon 12-09-2023 Albumin [Mass/Vol] 3.5 g/dL Normal 3.2-5.0 [facility] Comment on above: Performed By: #### L 501.2450, L500.3400 ####[facility] [address] [place], [address] ALK P 70 U/L Normal 45-117 [facility] Comment on above: Performed By: #### L 501.2450, L500.3400 ####[facility] [address] [place], [address] ALT [Catalytic activity/Vol] 35 U/L Normal 16-61 [facility] Comment on above: Performed By: #### L 501.2450, L500.3400 ####[facility] [address] [place], [address] AST [Catalytic activity/Vol] 31 U/L Normal 15-37 [facility] Comment on above: Performed By: #### L 501.2450, L500.3400 ####[facility] [address] [place], [address] Bilirubin [Mass/Vol] 0.70 mg/dL Normal 0.20-1.00 [facility] Comment on above: Result Comment: For patients on eltrombopag therapy, use of Dimension [place] TBIL is not recommended. Performed By: #### L 501.2450, L500.3400 ####[facility] [address] [place], [address] Bilirubin.direct [Mass/Vol] 0.25 mg/dL Normal 0.00-0.30 [facility] Comment on above: Performed By: #### L 501.2450, L500.3400 ####[facility] [address] [place], [address] Globulin (S) [Mass/Vol] 4.0 g/dL Normal 2.2-4.2 [facility] Comment on above: Performed By: #### L 501.2450, L500.3400 ####[facility] [address] [place], [address] T PROT 7.5 g/dL Normal 6.4-8.2 [facility] Comment on above: Performed By: #### L 501.2450, L500.3400 ####[facility] [address] [place], [address] Surgery Specimen Level Ibis 12-09-2023 Surgery Specimen Level IV Normal [facility] Comment on above: Performed By: #### P SUIV ####[facility] [address] [place], [address] Miscellaneous Lab Procedureo n 11-09-2023 [facility] LAB TEST . Normal [facility] Comment on above: Order Comment: STOOL CULTURE [id number] CULTURE [id number] Result Comment: Salm onella/Shigella Screen Final Report No Salmonella or Shigella recovered.Campylobacter Culture Final Report No Campylobacter species isolatedE coli Shiga Toxin EIA Final Report Negative TESTING PERFORMED AT [facility]. ORIGINAL REPORT ON FILE IN LAB CONTAINS ADDITIONAL TEST SITE INFORMATION. ____ Performed By: #### M 100.7900, M600.5000, L801.1541 ####[facility] [address] [place], [address] Ova and Parasites 8623on OP Normal [facility] Comment on above: Performed By: #### M 100.7900, M600.5000, L801.1541 ####[facility] [address] [place], [address] Abdomen/Pelvis WITH Contrast on 11-03-2023 Abdomen/Pelvis WITH Contrast Normal [facility] CREATININE FINGERSTICKon CREATININE WB < 1.0 Normal 0.70-1.30 [facility] Comment on above: Performed By: #### L 9100.0200 ####[facility] [address] [place], [address] EGFR WB > 60.0000 Normal >60 [facility] Comment on above: Performed By: #### L 9100.0200 ####[facility] [address] [place], [address] Stool Occult Blood iFOBon STOB Negative Normal [facility] Comment on above: Performed By: #### M 100.7900, M600.5000, L801.1541 ####[facility] [address] [place], [address] PSA,Total - Annual Screenon 10-25-2023 PSA,TOT SCREEN 0.83 ng/mL Normal 0.00-4.00 [facility] Comment on above: Result Comment: This test was performed using the TPSA assay method for The [employer] chemistry system. Values obtained with differentassay methods cannot be used interchangably.When changing PSA assays in the course of monitoring apatient, additional sequential testing should be carriedout to confirm baseline values. Performed By: #### L 501.9979 ####[facility] [address] [place], [address] Chiropractic Reporton 2023 Chiropractic Report Normal [facility] PROGRESSon 04-01-2018 Protein mass conc HNO ID: [id number] Author: Ki Galaviz Service: (none) Author Type: Physician Type: Progress Notes Filed: 04/01/2018 9:54 AM Note Text: OPERATIVE NOTATION FOR [facility] SURGICAL PROCEDURE. March 17, 2018 Brian Segura 1950 [id number] male PROCEDURE: EGD WITH BIOPSY - [id number] SURGEON: Baljit Galaviz M.D. FACS FLATBED DRIVER: None DEPT: WQ PROVIDER: [id number] Galaviz MD POS: [id number] DIAGNOSIS: (K92.0) Hematemesis, presence of nausea not [...] Clean Contaminated Operative note dictated in the [facility] dictation system. Ki Galaviz MD [facility] Encounters Encounter Date Encounter Type Care Provider Facility Start: 07-25-2024 End: 07-25-2024 Emergency department patient visit Alfred Bailey Facility:[facility] Start: 07-14-2024 End: 07-14-2024 Emergency department patient visit Alfred Bailey Facility:[facility] Start: 07-10-2024 End: 07-10-2024 ambulatory Alfred Bailey Facility:[facility] Start: 07-05-2024 End: 07-05-2024 ambulatory Alfred Bailey Facility:[facility] Start: 06-21-2024 End: 06-21-2024 ambulatory Alfred Bailey Facility:[facility] Start: 06-07-2024 End: 06-07-2024 Emergency department patient visit Alfred Bailey Facility:[facility] Start: 05-28-2024 End: 05-28-2024 Emergency department patient visit Alfred Bailey Facility:[facility] Start: 05-26-2024 End: 05-26-2024 Emergency department patient visit Alfred Bailey Facility:[facility] Start: 05-21-2024 ambulatory Alfred CornejoLynn Facility: [facility] Start: 04-30-2024 ambulatory Alfred CornejoLynn Facility: [facility] Start: 04-22-2024 End: 04-27-2024 ambulatory Alfred CornejoLynn Facility:[facility] Start: 03-07-2024 End: 03-07-2024 Emergency department patient visit Alfred Bailey Facility:[facility] Start: 02-29-2024 End: 02-29-2024 ambulatory Alfred CornejoLynn Facility:[facility] Start: 02-20-2024 End: 02-20-2024 Emergency department patient visit Alfred Bailey Facility:[facility] Start: 02-03-2024 End: 02-03-2024 ambulatory Alfred Bailey Facility:[facility] Start: 01-27-2024 End: 01-27-2024 ambulatory Alfred Lynn Facility:[facility] Start: 01-27-2024 End: 01-27-2024 ambulatory Alfred Lynn Facility:[facility] Start: 12-30-2023 End: 12-30-2023 ambulatory [facility] Facility:[facility] Start: 12-18-2023 End: 12-19-2023 Emergency department patient visit [facility] Facility:[facility] Start: 12-09-2023 End: 12-09-2023 ambulatory [facility] Facility:[facility] Start: 11-03-2023 End: 11-03-2023 ambulatory [facility] Facility:[facility] Start: 10-28-2023 End: 10-28-2023 ambulatory [facility] Facility:[facility] Start: 10-25-2023 End: 10-25-2023 ambulatory [facility] Facility:[facility] Start: 08-04-2023 End: 08-04-2023 ambulatory [facility] Facility:[facility] Start: 04-13-2023 End: 04-14-[address] WILLIE BLANK MD Facility:[facility] Start: 04-13-2023 End: 04-13-[address] WILLIE BLANK MD [facility] Procedures Date Procedure Procedure Detail [...] Immunization Date Immunization Notes Care Provider Fa [facility] 07-10-2013 pneumococcal polysaccharide vaccine, [address] WILLIE BLANK MD [facility] Payers Date Payer Category Payer Self-pay 2023 Unknown [id number] 1950 Unknown [id number] 2.16.8 40.1.723338.3.579.2.627 Unknown [id number] 2.16.8 40.1.780196.3.579.2.462 Unknown [id number] 2.16.8 40.1.511425.3.579.2.462 Unknown [id number] 2.16.8 40.1.952139.3.579.2.462 Unknown [id number] 2.16.8 40.1.690903.3.579.2.462 Unknown [id number] 2.16.8 40.1.897677.3.579.2.462 Unknown [id number] 2.16.8 40.1.136483.3.579.2.462 Unknown [id number] 2.16.8 40.1.516546.3.579.2.462 Unknown [id number] 2.16.8 40.1.493963.3.579.2.462 Unknown [id number] 2.16.8 40.1.290232.3.579.2.462 Unknown [id number] 2.16.8 40.1.928509.3.579.2.462 Unknown [id number] 2.16.8 40.1.697825.3.579.2.462 Unknown [id number] 2.16.8 40.1.078549.3.579.2.462 Unknown [id number] 2.16.8 40.1.855227.3.579.2.462 Unknown [id number] 2.16.8 40.1.963599.3.579.2.462 Unknown [id number] 2.16.8 40.1.902974.3.579.2.462 Unknown [id number] 2.16.8 40.1.174659.3.579.2.462 Unknown [id number] 2.16.8 40.1.404172.3.579.2.462 Unknown [id number] 2.16.8 40.1.136978.3.579.2.462 Unknown [id number] 2.16.8 40.1.558617.3.579.2.462 Unknown [id number] 2.16.8 40.1.028726.3.579.2.462 Unknown [id number] 2.16.8 40.1.589436.3.579.2.462 Unknown [id number] 2.16.8 40.1.780632.3.579.2.462 Unknown [id number] 2.16.8 40.1.837794.3.579.2.462 Unknown [id number] 2.16.8 40.1.346785.3.579.2.462 Unknown [id number] 2.16.8 40.1.472412.3.579.2.462 Unknown [id number] 2.16.8 40.1.197737.3.579.2.462 Unknown [id number] 2.16.8 40.1.564195.3.579.2.462 Unknown [id number] 2.16.8 40.1.012614.3.579.2.462 Unknown [id number] 2.16.8 40.1.541313.3.579.2.462 Unknown [id number] 2.16.8 40.1.851862.3.579.2.462 Unknown [id number] 2.16.8 40.1.379442.3.579.2.462 Social History Date Type Detail Facility Tobacco smoking status Ex-smoker (finding ) [facility] Sex Assigned At Male [facility] Discharge summary note 04-27-2024 Note Date & Type Note Facility 04-27-2024 Note [facility] Consultation note 04-24-2024 Note Date & Type Note Facility 04-24-2024 Note [facility] Clinical Note 04-13-2023 Note Date & Type Note Facility 04-13-2023 Note Sinus rhythm Probable left atrial enlargement Anteroseptal infarct, age indeterminate Electronic Signature: NEVILLE UNDERWOOD MD 04/13/2023 16:41:28 [facility] Evaluation + Plan note Note Date & Type Note Facility Evaluation + Plan note No data available for this section [facility] Hospital Discharge instructions Note Date & Type Note Facility Hospital Discharge instructions No data available for this section [facility] Progress note Note Date & Type Note Facility Progress note No data available for this section [facility] Summary Purpose Family History No Family History Records Found No data available for this section No Family History Records FoundNo Family History Records Found Advance Directives No Advanced Directives Records FoundNo Advanced Directives Records FoundNo Advanced Directives Records Found Procedure Findings Note Operative Note (Enc) (GENSWS ) Progress Notes: Ki Galaviz MD 04/01/2018 9:54 AM Signed OPERATIVE NOTATION FOR [facility] SURGICAL PROCEDURE. March 17, 2018 Brian Segura 1950 [id number] male PROCEDURE: EGD WITH BIOPSY - [id number] SURGEON: Baljit Galaviz M.D. FACS FLATBED DRIVER: None DEPT: WQ PROVIDER: [id number] Galaviz MD POS: [id number] DIAGNOSIS: (K92.0) Hematemesis, presence of nausea not [...] Clean Contaminated Operative note dictated in the [facility] dictation sys (more content not included)... Additional Source Comments (unrecognized sect ion and content) No Status Records FoundNo Status Records FoundNo Status Records Found INFORMATION SOURCE (unrecogn ized section and content) DATE CREATED AUTHOR 04/01/2018 [facility] DATE CREATED AUTHOR AUTHOR'S ORGANIZ ATION 04/14/2023 [facility] [place] [facility] DATE CREATED AUTHOR AUTHOR'S ORGANIZ ATION 08/02/2024 [facility] Patient Care team informatio n (unrecognized section and content) Care Team Personnel Name: KI LNAZA JR, MD Member Role: Primary Care Physician Address: Address: [address] [place] [address] Care Team Related Persons Name: URIEL SEGURA Address: [address] [address] [place] FOR RECORDS PERTAINING TO PATIENTS WHO [...] BE BASED ON THE PRIMARY CLINICAL RECORDS. [email or web address] provides no warranty or guarantee of the accuracy or completeness of information in this document.
[2024-10-01 05:30] VITALS: BP 155/81; PULSE 92; RESP 18; O2SAT 95
[2024-10-01 05:52] VITALS: BP 134/72; PULSE 64; RESP 18; TEMP 36.6; O2SAT 95
== END 2024-10-01 06:25 | disposition home or self-care (01) ==
PROVIDERS: Emergency Provider Emergency Medicine; PCP Family Medicine; Visit Provider Emergency Medicine
DX: R11.15 Cyclical vomiting syndrome unrelated to migraine (principal); J44.9 Chronic obstructive pulmonary disease, unspecified; E86.0 Dehydration; I10 Essential (primary) hypertension; Z87.891 Personal history of nicotine dependence; Z79.899 Other long term (current) drug therapy; K21.9 Gastro-esophageal reflux disease without esophagitis; F41.9 Anxiety disorder, unspecified; F32.A Depression, unspecified
CPT/HCPCS: 96361; 96365; 96375; 99284; A4216; J2405

== ENCOUNTER 2024-10-13 04:59 | Emergency (ER) | payer MEDICARE, SELFPAY ==
[2024-10-13 05:00] VITALS: BP 153/87; PULSE 80; RESP 18; TEMP 36.5; O2SAT 95; BMI 39.0
--- NOTE | 2024-10-13 05:03 | EX.ED.GENINJ ---
HPI History of Present Illness Chief Complaint: Nausea/Vomiting [facility] Medical History Strain of right psoas muscle Acute pain of right hip Fall Alcohol abuse Alcohol withdrawal Basal cell carcinoma of anterior chest Wears glasses Wears dentures Depression Anxiety Alcohol use Arthritis History of renal disease Back pain Injury of head and neck History of ulceration History of IBS History of diverticulitis Gastric reflux CPAP (continuous positive airway pressure) dependence Former smoker COPD (chronic obstructive pulmonary disease) Shortness of breath on exertion History of pain when walking History of edema History of stress test Encounter for screening for COVID-19 Chest wall contusion (~12/18/20) HTN (hypertension) Home Medications Medication Instructions Recorded Last Taken Type lisinopril 20 mg tablet 20 mg PO BID blood pressure 03/16/18 05/27/24 History pantoprazole 40 mg tablet,delayed 40 mg PO BID reflux 09/07/19 05/27/24 History release albuterol sulfate 2.5 mg/3 mL 2.5 mg inhalation Q6H PRN 05/18/23 Unknown History (0.083 %) solution for nebulization shortness of breath or wheezing fluvoxamine 100 mg tablet 100 mg PO QHS 05/18/23 05/27/24 History amlodipine 5 mg tablet 5 mg PO DAILY 05/24/23 05/27/24 History omeprazole 40 mg capsule,delayed 40 mg PO DAILY 12/30/23 05/27/24 History release ondansetron 4 mg disintegrating 4 mg PO Q8H PRN Nausea 04/22/24 Unknown History tablet promethazine 25 mg tablet 25 mg PO TID PRN PRN nausea 04/23/24 Unknown History acetaminophen 325 mg tablet 650 mg (2 x 325 mg) PO Q4H PRN PRN 04/27/24 Unknown Rx Fever, pain 1-11/16 #0 tabs calcium carbonate 500 mg (2.5 x 200 mg calcium (500 04/27/24 Unknown Rx mg)) PO TIDCM PRN DYSPEPSIA/INDIGESTION #0 tabs lorazepam 0.5 mg tablet 0.5 mg PO Q6H PRN PRN Anxiety #8 04/27/24 05/27/24 Rx tabs sennosides 8.6 mg-docusate sodium 1 tab PO DAILY #1 TAB 04/27/24 Unknown Rx 50 mg tablet (Stimulant Laxative Plus) doxepin 10 mg capsule 10 - 20 mg PO QHS PRN PRN insomnia 05/28/24 05/27/24 History ibuprofen 800 mg tablet 800 mg PO DAILY 05/28/24 05/27/24 History ondansetron 4 mg disintegrating 4 mg PO Q6H PRN nausea and 05/28/24 Unknown Rx tablet vomiting #10 tabs sodium chloride 1,000 mg soluble 1,000 mg PO DAILY 5 days #5 tabs 06/07/24 Unknown Rx tablet metoclopramide HCl 5 mg tablet 5 mg PO Q8H PRN nausea and 07/14/24 Unknown Rx (Reglan) vomiting 7 days #20 tabs promethazine 25 mg tablet 25 mg PO TID PRN nausea and 10/13/24 Unknown Rx vomiting 7 days #20 tabs Allergy/AdvReac Type Severity Reaction Status Date / Time amoxicillin Allergy doesnt Verified 10/13/24 05:00 rememeber fluoxetine (From Prozac) AdvReac Other Verified 10/13/24 05:00 Family History Mother Myocardial infarction Hypertension Father Cancer Hypertension Surgical History Hx of colonoscopy Hx of blepharoplasty Hx of esophagogastroduodenoscopy History of eye surgery Social History household members: none Smoking Status: Former smoker how long ago did patient quit smoking: quit 20 yr ago alcohol intake: current Alcohol type: hard liquor substance use type: does not use additional social history: personal hx of PEs EXAM Physical Exam Const Vital Signs: 10/13/24 05:00 10/13/24 06:38 Temperature 97.7 F L 98 F Temperature Source Oral Pulse Rate 80 73 Respiratory Rate 18 18 Blood Pressure 153/87 H 166/83 H Blood Pressure Mean 109 110 Pulse Ox 95 93 Oxygen Delivery Method Room Air MDM MDM MDM Narrative Medical decision making narrative: HISTORY OF PRESENT ILLNESS: Chief complaint: Nausea 74-year-old male history of cyclic vomiting syndrome, alcohol abuse, degenerative disease, duodenal ulcer, GI bleed, COPD, presents with nausea. States this began at 1200 last night. Patient notes he typically gets the symptoms randomly without inciting event. Notes of excess gas as well as some belching. Denies vomiting. Last bowel movement was yesterday. No melena hematochezia. Denies urinary complaints. Denies alcohol or drug use. Notes he typically is better with Ativan, Zofran, Benadryl and Thorazine. REVIEW OF SYSTEMS: Pertinent positives: Nausea Pertinent negatives: Vomiting PHYSICAL EXAM: Nursing triage notes reviewed, Vital signs reviewed Constitutional: please see [facility] HENT: MMM Eyes: Pupils equal round and reactive to light, Extraocular muscles intact Neck: No stridor, no JVD, full neck ROM Lungs: Clear to auscultation, No wheezing or rales. No increased work of breathing, no conversational dyspnea, no accessory muscle use, no nasal flaring. No respiratory distress noted Heart: Regular rate and rhythm, No murmurs, No rubs and No gallops, 2+ distal pulses (radial, femoral, posterior tibial) in all extremities Abdomen: Soft, there is no tenderness, rigidity, rebound or guarding, no obvious peritoneal signs, no palpable pulsatile abdominal masses, no auscultated abdominal bruit : No CVAT Extremities: No edema Neuro: No new focal neurological deficits, cranial nerves II through XII intact, 5/5 strength in all present extremities. Intact sensation to light touch in all present extremities, 2+ reflexes bilateral patella tendons. Skin: No rash or lesions noted MEDICAL DECISION MAKING: Chief Complaint: please see HPI External records reviewed: Reviewed imaging studies Factors affecting care: Cyclic vomiting syndrome Social determinants of health: THC, illicit drug History obtained from others: none Consults: none [facility] Narrative: The patient was initially hemodynamically stable, afebrile and nontoxic-appearing. Exam for soft nonperitonitic, nondistended abdomen. Given the patient's advanced age and multiple recent visits I did obtain laboratory studies to assess vital organs in the belly. I obtained CMP, CBC, lipase to further determine if the patient was suffering from a life-threatening etiology. Initially treat the patient with 500 cc bolus, 4 mg IV Ativan, 4 mg IV Zofran as well as 5 mg of IV Benadryl and Thorazine respectively. ALL IMAGES (IF OBTAINED) HAVE BEEN PERSONALLY REVIEWED AND INTERPRETED BY MYSELF. CBC without leukocytosis, severe anemia, no thrombocytopenia. BMP without significant [place] normalities, noted mild hypokalemia, no sign of metabolic acidosis or endorgan hypoperfusion, no TOMI LFTs show no evidence of hepatobiliary pathology. Lipase is wnl indicating no pancreatic inflammation. Repeat abdominal exam is benign. Patient is able to tolerate p.o. potassium. Patient notes essentially complete improvement of symptoms. He was safe for discharge home as there is no life-limiting etiology could be identified. The patient and/or family, caregivers express understanding. The patient and/or family, caregivers agrees with the plan. Shared decision making: I will have a discussion with the patient and or visitors regarding risk/benefits of further testing or admission. They will be made aware of of the risk/benefits inherent in this decision they will be given the opportunity to voice understanding. Total critical care time today provided was at least 0 minutes. This excludes separately billable procedures. Critical care time (if documented) is secondary to the patient having high probability of clinically significant/life threatening deterioration in the patient's condition which required my urgent intervention. Impression: 1. Nausea 2. History of cyclic vomiting syndrome Dispo: Discharge home This note was generated with [employer] dictation software. It may contain incorrect words, spelling, and punctuation that were not noted in review of the chart prior to signing. Lab Data Labs: Laboratory Results - last 24 hr 10/13/24 05:10 WBC 8.6 RBC 4.89 Hgb 15.5 Hct 44.2 MCV 90.4 MCH 31.7 MCHC 35.1 RDW Std Deviation 45.7 H RDW Coeff of [place] 13.8 Plt Count 226 MPV 9.7 Immature Gran % (Auto) 0.200 Neut % (Auto) 72.2 H Lymph % (Auto) 18.1 L [place] % (Auto) 8.3 Eos % (Auto) 0.8 Baso % (Auto) 0.4 Absolute Neuts (auto) 6.2 Absolute Lymphs (auto) 1.55 Nucleated RBC % 0 Sodium 136 Potassium 3.1 L Chloride 95 L Carbon Dioxide 25.5 Anion Gap 15 BUN 7 Creatinine 0.72 Estim Creat Clear Calc 97.38 Est GFR (MDRD) Non-Af 95 BUN/Creatinine Ratio 9.8 L Glucose 144 H Calcium 10.4 Total Bilirubin 0.64 AST 22 ALT 12 Alkaline Phosphatase 87 Total Protein 7.5 Albumin 3.9 Globulin 3.5 Albumin/Globulin Ratio 1.1 Lipase 33 Discharge Plan Triage Chief Complaint: Nausea/Vomiting ED Provider: Mingo Haddad Dx/Rx/DC Orders Clinical Impression: Nausea Instructions: ED Cyclic Vomiting Syndrome Prescriptions: New promethazine 25 mg tablet 25 mg PO TID PRN (Reason: nausea and vomiting) 7 Days Qty: 20 0RF No Action amlodipine 5 mg tablet 5 mg PO DAILY omeprazole 40 mg capsule,delayed release(DR/EC) 40 mg PO DAILY lisinopril 20 MG tablet 20 mg PO BID pantoprazole 40 MG tablet 40 mg PO BID sodium chloride 1,000 mg tablet,soluble 1,000 mg PO DAILY 5 Days Qty: 5 0RF albuterol sulfate 2.5 mg /3 mL (0.083 %) solution for nebulization 2.5 mg inhalation Q6H PRN (Reason: shortness of breath or wheezing) fluvoxamine 100 mg tablet 100 mg PO QHS ondansetron 4 mg tablet,disintegrating 4 mg PO Q8H PRN (Reason: Nausea) promethazine 25 mg tablet 25 mg PO TID PRN PRN (Reason: nausea) acetaminophen 325 mg Tablet 650 mg PO Q4H PRN PRN (Reason: Fever, pain 1-11/16) Qty: 0 0RF lorazepam 0.5 mg Tablet 0.5 mg PO Q6H PRN PRN (Reason: Anxiety) Qty: 8 0RF calcium carbonate 200 mg calcium (500 mg) Tablet,Chewable 500 mg PO TIDCM PRN (Reason: DYSPEPSIA/INDIGESTION) Qty: 0 0RF sennosides-docusate sodium [Stimulant Laxative Plus] 8.6-50 mg Tablet 1 tab PO DAILY Qty: 1 0RF ibuprofen 800 mg tablet 800 mg PO DAILY Rx Instructions: 800 mg orally; family states pt has been taking more than 4xd doxepin 10 mg capsule 10 - 20 mg PO QHS PRN PRN (Reason: insomnia) ondansetron 4 mg tablet,disintegrating 4 mg PO Q6H PRN (Reason: nausea and vomiting) Qty: 10 0RF metoclopramide HCl [Reglan] 5 mg tablet 5 mg PO Q8H PRN (Reason: nausea and vomiting) 7 Days Qty: 20 0RF Primary Care Provider: Alfred Bailey Referrals: Alfred Bailey DO [Primary Care Provider] - Friend,DO Mumtaz [Med Staff - Active Staff] - Activity Restrictions/Additional Instructions: Thank you for trusting us with your care today! Your labs are reassuring. They suggest mild dehydration. Please take Phenergan as needed for nausea vomiting control at home. Please take Tylenol (2 pills, 650 mg), ibuprofen (2 pills, 400 mg) every 6 hours as needed for pain and fever control. Please return to the emergency department if your symptoms change or worsen. Please follow with Gastroenterology (Dr. Sneed) for further outpatient evaluation and management. Print Language: Colombian Disposition Disposition: Home, Self Care
[2024-10-13 05:16] LABS: Hematocrit 44.2 % (40-54); Hemoglobin 15.5 g/dL (13.0-16.5); Immature Granulocytes Count 0.020 X10^3/uL (0.0-0.0); Mean Corp Hgb Conc 35.1 g/dL (32-36); Mean Corpuscular Volume 90.4 fL (80-94); Mean Platelet Vol. 9.7 fl (6.2-12.0); NRBC Flagged by Analyzer 0 % (0-5); Platelet Count 226 K/mm3 (150-450); RBC Distribution Width CV 13.8 % (11.6-14.6); RBC Distribution Width SD 45.7 fl (35.1-43.9); Red Blood Count 4.89 M/mm3 (4.6-6.2); White Blood Count 8.6 K/mm3 (4.4-11.0)
--- OUTSIDE RECORDS SUMMARY | 2024-10-13 05:34 | XMS RPT_ITS | CCD ---
Author Organization [facility] CliniSyfl Care Team Providers Care Agronomy Specialist Name Role Phone POOL MISTRY, DR KI Nelson JR Primary Care Physician ABHAY MISTRY, DR WILLIE WHITE Attending Lawrence LANZA MD, DR KI Nelson JR Primary Care Alfred Gonzalez Referring Unavailable Alfred Bailey Attending Unavailable Lynn, Alfred Primary Care Unavailable Lynn, Alfred Primary Care Unavailable Willie Blank Attending Unavailable Willie Blank Referring Unavailable LynnAlfred rodriguez Referring Unavailable LynnAlfred willis Attending Unavailable Lynn, Alfred Primary Care Unavailable Lynn, Alfred Primary Care Unavailable [place] Rush Attending Unavailable Alfred Grijalva Referring Unavailable Jaleeltsonis, David F Consulting Unavailable Jaleeltsonis, David F Admitting Unavailable SteveruBoston somers Consulting Unavailable Alfred Grijalva Consulting Unavailable Lynn, Alfred Primary Care Unavailable Patrice Umaña Attending Unavailable Lynn, Alfred Primary Care Unavailable Vishnu Doyle Attending Unavailable Vishnu Doyle Referring Unavailable LynnAlfred Referring Unavailable Lynn, Alfred Primary Care Unavailable Alfred Bailey Attending Unavailable Lynn, Alfred Primary Care Unavailable Alfred Grijalva Attending Unavailable Jose Enriqueonis, David F Consulting Unavailable Jaleeltsonis, David F Admitting Unavailable Borrulizbet [place] Consulting Unavailable Lynn, Alfred Primary Care Unavailable Bogdan Grover Attending Unavailable Lynn, Alfred Primary Care Unavailable Chino Jaimes Attending Unavailable Lynn, Alfred Primary Care Unavailable Antonio Omalleyo Attending Unavailable Lynn, Alfred Primary Care Unavailable Antonio Omalleyo Attending Unavailable Lynn, Alfred Primary Care Unavailable Brock Garcia Attending UnavailBrock Ortiz Referring Unavailabl e Alfred Bailey Primary Care Unavailable Vick Ruiz Attending Unavailable Lynn, Alfred Primary Care Unavailable Torey Multani Attending Unavailable BouseAnnie Referring Unavailable Lynn, Alfred Primary Care Unavailable BouseAnnie Attending Unavailable LynnAlfred Attending Unavailable Lynn, Alfred Primary Care Unavailable Lynn, Alfred Referring Unavailable Lynn, Alfred Primary Care Unavailable Milena Smith Attending Unavailable Alfred Grijalva Attending Unavailable Lynn, Alfred Primary Care Unavailable Romina Ballard Attending Unavailable Lynn, Alfred Primary Care Unavailable Reynolda ALYCE, Romina Attending Unavailable Guzehraa OLS, Romina Referring Unavailable Lynn, Alfred Primary Care Unavailable Vick Ruiz Attending Unavailable David Cespedes Attending Unavailable Lynn, Alfred Primary Care Unavailable Vishnu Doyle Attending Unavailable SisVishnu le Referring Unavailable Lynn, Alfred Referring Unavailable Lynn, Alfred Primary Care Unavailable Siska, Vishnu Attending Unavailable Lynn, Alfred Referring Unavailable Lynn, Alfred Primary Care Unavailable Bandar VARGAS, Camila Lyn Attending Unavailabl e Lynn, Alfred Referring Unavailable Lynn, Alfred Primary Care Unavailable Milena Smith Attending Unavailable Allergies Allergy Classification Reported Allergen(s) Allergy Type Date of Onset Reaction(s) Facility (1 source) Amoxicillin; Translations: [amoxicillin] Drug Allergy [facility] (1 source) Amoxicillin Drug Allergy 10-01-2024 [facility] Repository (1 source) FLUoxetine Drug Allergy 10-01-2024 [facility] Rep[facility] Medications Current Medications Medication Drug [...] hypertension (1 source) Hypertensive disorder 08-28-2013 Chronic Other bone disease and musculoskeletal deformities (1 [...] not elsewhere classified] Onset: 4 Chronic Other nutritional; endocrine; and metabolic disorders [...] Translations: [Radiculopathy, lumbar region] Onset: 5 Episodic Unclassified (1 source) Cyclical [...] Classification Problem Date Documented Da te Episodic/Chronic E Codes: Fall (1 source) Unspecified fall, initial encounter; Translations: [Unspecified fall, initial encounter] Onset: 05-25-2024 Episodic Fluid and electrolyte disorders (1 source) Hypo-osmolality and hyponatremia; Translations: [Hypo-osmolality and hyponatremia] Onset: 06-25-2024 Episodic Nausea and vomiting (2 sources) Nausea; Translations: [Nausea with vomiting, unspecified] Onset: 06-12-2024 08-28-2013 Episodic Other gastrointestinal disorders (1 source) Diarrhea, unspecified; Translations: [Diarrhea, unspecified] Onset: 11-21-2023 Episodic Other non-epithelial cancer of skin (2 sources) Basal cell carcinoma of skin, unspecified; Translations: [Basal cell carcinoma of skin of other part of trunk] Onset: 02-23-2024 Episodic Other non-traumatic joint disorders (1 source) Pain in right hip; Translations: [Pain in right hip] Onset: 05-25-2024 Episodic Other screening for suspected conditions (not mental disorders or infectious disease) (1 source) Encounter for screening for malignant neoplasm of prostate; Translations: [Encounter for screening for malignant neoplasm of prostate] Onset: 11-16-2023 Episodic Sprains and strains (2 sources) Strain of muscle, fascia and tendon of right hip, initial encounter; Translations: [Strain of muscle, fascia and tendon of right hip, initial encounter] Onset: 05-25-2024 Episodic Results Test Name Value Interpretation Reference Range Facil ity CBC W/Diff, Automatedon 08-2 Absolute Neut Normal 2.0-7.7 [facility] Comment on above: Result Comment: Alivia elled via OM: MD Ordered Performed By: #### L 100.0100 ####[facility] [address] [place], [address] HCT Normal 40-54 [facility] Comment on above: Result Comment: Alivia elled via OM: MD Ordered Performed By: #### L 100.0100 ####[facility] [address] [place], [address] HGB Normal 13.0-16.5 [facility] Comment on above: Result Comment: Alivia elled via OM: Ordered Performed By: #### L 100.0100 ####[facility] [address] [place], [address] MCH Normal 27.0-32.0 [facility] Comment on above: Result Comment: Canc elled via OM: MD Ordered Performed By: #### L 100.0100 ####[facility] [address] [place], [address] MCHC Normal 32-36 [facility] Comment on above: Result Comment: Canc elled via OM: MD Ordered Performed By: #### L 100.0100 ####[facility] [address] [place], [address] MCV Normal 80-94 [facility] Comment on above: Result Comment: Canc elled via OM: MD Ordered Performed By: #### L 100.0100 ####[facility] [address] [place], [address] NEUT% Normal 47-70 [facility] Comment on above: Result Comment: Canc elled via OM: MD Ordered Performed By: #### L 100.0100 ####[facility] [address] [place], [address] PLT Normal 150-450 [facility] Comment on above: Result Comment: Canc elled via OM: MD Ordered Performed By: #### L 100.0100 ####[facility] [address] [place], [address] RBC Normal 4.6-6.2 [facility] Comment on above: Result Comment: Canc elled via OM: MD Ordered Performed By: #### L 100.0100 ####[facility] [address] [place], [address] RDW CV Normal 11.6-14.6 [facility] Comment on above: Result Comment: Canc elled via OM: MD Ordered Performed By: #### L 100.0100 ####[facility] [address] [place], [address] RDW SD Normal 35.1-43.9 [facility] Comment on above: Result Comment: Canc elled via OM: MD Ordered Performed By: #### L 100.0100 ####[facility] [address] [place], [address] WBC Normal 4.4-11.0 [facility] Comment on above: Result Comment: Alivia garcia via OM: Ordered Performed By: #### L 100.0100 ####[facility] [address] [place], [address] Emergency Department Summary on 10-01-2024 Emergency Department Summary Normal [facility] Emergency Department Summary on 07-25-2024 Emergency Department Summary Normal [facility] 12 Lead EKGon 07-14-2024 12 Lead EKG Normal [facility] CBC W/Diff, Automatedon Absolute Lymph 0.84 X10 3/uL Normal 0.83-4.51 [facility] Comment on above: Performed By: #### L 500.4050, L100.0100 ####[facility] [address] [place], [address] Absolute Neut 8.0 X10 3/uL High 2.0-7.7 [facility] Comment on above: Performed By: #### L 500.4050, L100.0100 ####[facility] [address] [place], [address] Basophils/100 WBC (Bld) 0.4 % Normal 0-1 [facility] Comment on above: Performed By: #### L 500.4050, L100.0100 ####[facility] [address] [place], [address] Eosinophils/100 WBC (Bld) 0.1 % Normal 0-5 [facility] Comment on above: Performed By: #### L 500.4050, L100.0100 ####[facility] [address] [place], [address] Erythrocyte distribution width (RBC) [Ratio] 12.9 % Normal 11.6-14.6 [facility] Comment on above: Performed By: #### L 500.4050, L100.0100 ####[facility] [address] [place], [address] Hematocrit (Bld) [Volume fraction] 37.2 % Low 40-54 [facility] Comment on above: Performed By: #### L 500.4050, L100.0100 ####[facility] [address] [place], [address] Hemoglobin (Bld) [Mass/Vol] 13.2 g/dL Normal 13.0-16.5 [facility] Comment on above: Performed By: #### L 500.4050, L100.0100 ####[facility] [address] [place], [address] IG% 0.400 Normal 0.0-0.9 [facility] Comment on above: Result Comment: IG% - Immature Granulocytes (promyelocytes, myelocytes andmetamyelocytes) > 1% indicates that a LEFT SHIFT is Present. Performed By: #### L 500.4050, L100.0100 ####[facility] [address] [place], [address] Lymphocytes/100 WBC (Bld) 8.9 % Low 19-41 [facility] Comment on above: Performed By: #### L 500.4050, L100.0100 ####[facility] [address] [place], [address] MCH (RBC) [Entitic mass] 32.0 pg Normal 27.0-32.0 [facility] Comment on above: Performed By: #### L 500.4050, L100.0100 ####[facility] [address] [place], [address] MCHC (RBC) [Mass/Vol] 35.5 g/dL Normal 32-36 [facility] Comment on above: Performed By: #### L 500.4050, L100.0100 ####[facility] [address] [place], [address] MCV (RBC) [Entitic vol] 90.3 fL Normal 80-94 [facility] Comment on above: Performed By: #### L 500.4050, L100.0100 ####[facility] [address] [place], [address] Monocytes/100 WBC (Bld) 5.2 % Normal 0-10 [facility] Comment on above: Performed By: #### L 500.4050, L100.0100 ####[facility] [address] [place], [address] Neutrophils/100 WBC (Bld) 85.0 % High 47-70 [facility] Comment on above: Performed By: #### L 500.4050, L100.0100 ####[facility] [address] [place], [address] Nucleated RBC (Bld) [#/Vol] 0 10*3/uL Normal 0-5 [facility] Comment on above: Performed By: #### L 500.4050, L100.0100 ####[facility] [address] [place], [address] Platelet mean volume (Bld) [Entitic vol] 9.9 fL Normal 6.2-12.0 [facility] Comment on above: Performed By: #### L 500.4050, L100.0100 ####[facility] [address] [place], [address] Platelets (Bld) [#/Vol] 221 10*3/uL Normal 150-450 [facility] Comment on above: Performed By: #### L 500.4050, L100.0100 ####[facility] [address] [place], [address] RBC (Bld) [#/Vol] 4.12 10*6/uL Low 4.6-6.2 [facility] Comment on above: Performed By: #### L 500.4050, L100.0100 ####[facility] [address] [place], [address] RDW SD 42.5 fl Normal 35.1-43.9 [facility] Comment on above: Performed By: #### L 500.4050, L100.0100 ####[facility] [address] [place], [address] WBC (Bld) [#/Vol] 9.5 10*3/uL Normal 4.4-11.0 [facility] Comment on above: Performed By: #### L 500.4050, L100.0100 ####[facility] [address] [place], [address] Comprehensive Metabolic [facility] 07-14-2024 Albumin [Mass/Vol] 3.8 g/dL Normal 3.4-4.8 [facility] Comment on above: Performed By: #### L 500.4050, L100.0100 ####[facility] [address] [place], [address] Albumin/Globulin [Mass ratio] 1.2 {ratio} Normal 0.9-2.4 [facility] Comment on above: Performed By: #### L 500.4050, L100.0100 ####[facility] [address] [place], [address] ALK PHOS 89 U/L Normal 40-129 [facility] Comment on above: Performed By: #### L 500.4050, L100.0100 ####[facility] [address] [place], [address] ALT [Catalytic activity/Vol] 14 U/L Normal <=46 [facility] Comment on above: Performed By: #### L 500.4050, L100.0100 ####[facility] [address] [place], [address] AST [Catalytic activity/Vol] 26 U/L Normal <=37 [facility] Comment on above: Result Comment: Hemo lysis present, Results??could be affected.?? Performed By: #### L 500.4050, L100.0100 ####[facility] [address] [place], [address] Bilirubin [Mass/Vol] 0.41 mg/dL Normal 0.00-1.30 [facility] Comment on above: Performed By: #### L 500.4050, L100.0100 ####[facility] [address] [place], [address] BUN/CRE 14.0 RATIO Normal 10-20 [facility] Comment on above: Performed By: #### L 500.4050, L100.0100 ####[facility] [address] [place], [address] Calcium [Mass/Vol] 8.9 mg/dL Normal 7.6-11.0 [facility] Comment on above: Performed By: #### L 500.4050, L100.0100 ####[facility] [address] [place], [address] Chloride [Moles/Vol] 101 mmol/L Normal 98-108 [facility] Comment on above: Performed By: #### L 500.4050, L100.0100 ####[facility] [address] [place], [address] CO2 [Moles/Vol] 27.0 mmol/L Normal 21.0-32.0 [facility] Comment on above: Performed By: #### L 500.4050, L100.0100 ####[facility] [address] [place], [address] Creatinine [Mass/Vol] 0.74 mg/dL Normal 0.70-1.20 [facility] Comment on above: Performed By: #### L 500.4050, L100.0100 ####[facility] [address] [place], [address] GAP 12 Normal 5-15 [facility] Comment on above: Performed By: #### L 500.4050, L100.0100 ####[facility] [address] [place], [address] GFR/1.73 sq M.predicted among non-blacks MDRD (S/P/Bld) [Vol rate/Area] 94 mL/min/{1.73_m2} Normal >60 [facility] Comment on above: Result Comment: mL/m in/1.73m2 CKD-EPI Creatinine Equation (2020) Performed By: #### L 500.4050, L100.0100 ####[facility] [address] [place], [address] Globulin (S) [Mass/Vol] 3.1 g/dL Normal 2.2-4.2 [facility] Comment on above: Performed By: #### L 500.4050, L100.0100 ####[facility] [address] [place], [address] Glucose [Mass/Vol] 125 mg/dL High 70-99 [facility] Comment on above: Performed By: #### L 500.4050, L100.0100 ####[facility] [address] [place], [address] Potassium [Moles/Vol] 4.0 mmol/L Normal 3.3-5.1 [facility] Comment on above: Result Comment: Hemo lysis present, Results??could be affected.?? Performed By: #### L 500.4050, L100.0100 ####[facility] [address] [place], [address] Sodium [Moles/Vol] 140 mmol/L Normal 133-145 [facility] Comment on above: Performed By: #### L 500.4050, L100.0100 ####[facility] [address] [place], [address] T PROT 6.9 g/dL Normal 5.9-8.4 [facility] Comment on above: Performed By: #### L 500.4050, L100.0100 ####[facility] [address] [place], [address] Urea nitrogen [Mass/Vol] 10 mg/dL Normal 4-19 [facility] Comment on above: Performed By: #### L 500.4050, L100.0100 ####[facility] [address] [place], [address] Emergency Department Summary on 07-14-2024 Emergency Department Summary Normal [facility] Lactic Acidon 07-14-2024 Lactate [Moles/Vol] 1.4 mmol/L Normal 0.0-2.0 [facility] Comment on above: Order Comment: Y Performed By: #### L 503.6005 ####[facility] [address] [place], [address] Chiropractic Reporton 2024 Chiropractic Report Normal [facility] Chiropractic Reporton 2024 Chiropractic Report Normal [facility] Basic Metabolic Profile (BMP )on 06-21-2024 BUN/CRE 15.6 RATIO Normal 10-20 [facility] Comment on above: Performed By: #### L 500.2500 ####[facility] [address] [place], [address] Calcium [Mass/Vol] 9.8 mg/dL Normal 7.6-11.0 [facility] Comment on above: Performed By: #### L 500.2500 ####[facility] [address] [place], [address] Chloride [Moles/Vol] 101 mmol/L Normal 98-108 [facility] Comment on above: Performed By: #### L 500.2500 ####[facility] [address] [place], [address] CO2 [Moles/Vol] 23.2 mmol/L Normal 21.0-32.0 [facility] Comment on above: Performed By: #### L 500.2500 ####[facility] [address] [place], [address] Creatinine [Mass/Vol] 0.90 mg/dL Normal 0.70-1.20 [facility] Comment on above: Performed By: #### L 500.2500 ####[facility] [address] [place], [address] GAP 13 Normal 5-15 [facility] Comment on above: Performed By: #### L 500.2500 ####[facility] [address] [place], [address] GFR/1.73 sq M.predicted among non-blacks MDRD (S/P/Bld) [Vol rate/Area] 88 mL/min/{1.73_m2} Normal >60 [facility] Comment on above: Result Comment: mL/m in/1.73m2 CKD-EPI Creatinine Equation (2020) Performed By: #### L 500.2500 ####[facility] [address] [place], [address] Glucose [Mass/Vol] 102 mg/dL High 70-99 [facility] Comment on above: Performed By: #### L 500.2500 ####[facility] [address] [place], [address] Potassium [Moles/Vol] 3.9 mmol/L Normal 3.3-5.1 [facility] Comment on above: Performed By: #### L 500.2500 ####[facility] [address] [place], [address] Sodium [Moles/Vol] 137 mmol/L Normal 133-145 [facility] Comment on above: Performed By: #### L 500.2500 ####[facility] [address] [place], [address] Urea nitrogen [Mass/Vol] 14 mg/dL Normal 4-19 [facility] Comment on above: Performed By: #### L 500.2500 ####[facility] [address] [place], [address] Basic Metabolic Profile (BMP )on 06-07-2024 BUN/CRE 17.6 RATIO Normal 10-20 [facility] Comment on above: Performed By: #### L 500.2500 ####[facility] [address] [place], [address] Calcium [Mass/Vol] 8.9 mg/dL Normal 7.6-11.0 [facility] Comment on above: Performed By: #### L 500.2500 ####[facility] [address] [place], [address] Chloride [Moles/Vol] 93 mmol/L Low 98-108 [facility] Comment on above: Performed By: #### L 500.2500 ####[facility] [address] [place], [address] CO2 [Moles/Vol] 21.2 mmol/L Normal 21.0-32.0 [facility] Comment on above: Performed By: #### L 500.2500 ####[facility] [address] [place], [address] Creatinine [Mass/Vol] 0.63 mg/dL Low 0.70-1.20 [facility] Comment on above: Performed By: #### L 500.2500 ####[facility] [address] [place], [address] ECRCL 95.23 ml/min Normal 50-250 [facility] Comment on above: Performed By: #### L 500.2500 ####[facility] [address] [place], [address] GAP 13 Normal 5-15 [facility] Comment on above: Performed By: #### L 500.2500 ####[facility] [address] [place], [address] GFR/1.73 sq M.predicted among non-blacks MDRD (S/P/Bld) [Vol rate/Area] 99 mL/min/{1.73_m2} Normal >60 [facility] Comment on above: Result Comment: mL/m in/1.73m2 CKD-EPI Creatinine Equation (2020) Performed By: #### L 500.2500 ####[facility] [address] [place], [address] Glucose [Mass/Vol] 119 mg/dL High 70-99 [facility] Comment on above: Performed By: #### L 500.2500 ####[facility] [address] [place], [address] Potassium [Moles/Vol] 3.8 mmol/L Normal 3.3-5.1 [facility] Comment on above: Performed By: #### L 500.2500 ####[facility] [address] [place], [address] Sodium [Moles/Vol] 128 mmol/L Low 133-145 [facility] Comment on above: Performed By: #### L 500.2500 ####[facility] [address] [place], [address] Urea nitrogen [Mass/Vol] 11 mg/dL Normal 4-19 [facility] Comment on above: Performed By: #### L 500.2500 ####[facility] [address] [place], [address] BUN/CRE 18.6 RATIO Normal 10-20 [facility] Comment on above: Performed By: #### L 100.0100, L500.2500 ####[facility] [address] [place], [address] Calcium [Mass/Vol] 9.3 mg/dL Normal 7.6-11.0 [facility] Comment on above: Performed By: #### L 100.0100, L500.2500 ####[facility] [address] [place], [address] Chloride [Moles/Vol] 91 mmol/L Low 98-108 [facility] Comment on above: Performed By: #### L 100.0100, L500.2500 ####[facility] [address] [place], [address] CO2 [Moles/Vol] 21.8 mmol/L Normal 21.0-32.0 [facility] Comment on above: Performed By: #### L 100.0100, L500.2500 ####[facility] [address] [place], [address] Creatinine [Mass/Vol] 0.68 mg/dL Low 0.70-1.20 [facility] Comment on above: Performed By: #### L 100.0100, L500.2500 ####[facility] [address] [place], [address] ECRCL 95.23 ml/min Normal 50-250 [facility] Comment on above: Performed By: #### L 100.0100, L500.2500 ####[facility] [address] [place], [address] GAP 14 Normal 5-15 [facility] Comment on above: Performed By: #### L 100.0100, L500.2500 ####[facility] [address] [place], [address] GFR/1.73 sq M.predicted among non-blacks MDRD (S/P/Bld) [Vol rate/Area] 97 mL/min/{1.73_m2} Normal >60 [facility] Comment on above: Result Comment: mL/m in/1.73m2 CKD-EPI Creatinine Equation (2020) Performed By: #### L 100.0100, L500.2500 ####[facility] [address] [place], [address] Glucose [Mass/Vol] 116 mg/dL High 70-99 [facility] Comment on above: Performed By: #### L 100.0100, L500.2500 ####[facility] [address] [place], [address] Potassium [Moles/Vol] 4.0 mmol/L Normal 3.3-5.1 [facility] Comment on above: Result Comment: Hemo lysis present, Results??could be affected.?? Performed By: #### L 100.0100, L500.2500 ####[facility] [address] [place], [address] Sodium [Moles/Vol] 127 mmol/L Low 133-145 [facility] Comment on above: Performed By: #### L 100.0100, L500.2500 ####[facility] [address] [place], [address] Urea nitrogen [Mass/Vol] 13 mg/dL Normal 4-19 [facility] Comment on above: Performed By: #### L 100.0100, L500.2500 ####[facility] [address] [place], [address] CBC W/Diff, Automatedon 05-0 Absolute Lymph 1.01 X10 3/uL Normal 0.83-4.51 [facility] Comment on above: Performed By: #### L 100.0100, L500.2500 ####[facility] [address] [place], [address] Absolute Neut 12.6 X10 3/uL High 2.0-7.7 [facility] Comment on above: Performed By: #### L 100.0100, L500.2500 ####[facility] [address] [place], [address] Basophils/100 WBC (Bld) 0.2 % Normal 0-1 [facility] Comment on above: Performed By: #### L 100.0100, L500.2500 ####[facility] [address] [place], [address] Eosinophils/100 WBC (Bld) 0.0 % Normal 0-5 [facility] Comment on above: Performed By: #### L 100.0100, L500.2500 ####[facility] [address] [place], [address] Erythrocyte distribution width (RBC) [Ratio] 12.9 % Normal 11.6-14.6 [facility] Comment on above: Performed By: #### L 100.0100, L500.2500 ####[facility] [address] [place], [address] Hematocrit (Bld) [Volume fraction] 39.2 % Low 40-54 [facility] Comment on above: Performed By: #### L 100.0100, L500.2500 ####[facility] [address] [place], [address] Hemoglobin (Bld) [Mass/Vol] 13.8 g/dL Normal 13.0-16.5 [facility] Comment on above: Performed By: #### L 100.0100, L500.2500 ####[facility] [address] [place], [address] IG% 0.400 Normal 0.0-0.9 [facility] Comment on above: Result Comment: IG% - Immature Granulocytes (promyelocytes, myelocytes andmetamyelocytes) > 1% indicates that a LEFT SHIFT is Present. Performed By: #### L 100.0100, L500.2500 ####[facility] [address] [place], [address] Lymphocytes/100 WBC (Bld) 7.0 % Low 19-41 [facility] Comment on above: Performed By: #### L 100.0100, L500.2500 ####[facility] [address] [place], [address] MCH (RBC) [Entitic mass] 32.1 pg High 27.0-32.0 [facility] Comment on above: Performed By: #### L 100.0100, L500.2500 ####[facility] [address] [place], [address] MCHC (RBC) [Mass/Vol] 35.2 g/dL Normal 32-36 [facility] Comment on above: Performed By: #### L 100.0100, L500.2500 ####[facility] [address] [place], [address] MCV (RBC) [Entitic vol] 91.2 fL Normal 80-94 [facility] Comment on above: Performed By: #### L 100.0100, L500.2500 ####[facility] [address] [place], [address] Monocytes/100 WBC (Bld) 4.5 % Normal 0-10 [facility] Comment on above: Performed By: #### L 100.0100, L500.2500 ####[facility] [address] [place], [address] Neutrophils/100 WBC (Bld) 87.9 % High 47-70 [facility] Comment on above: Performed By: #### L 100.0100, L500.2500 ####[facility] [address] [place], [address] Nucleated RBC (Bld) [#/Vol] 0 10*3/uL Normal 0-5 [facility] Comment on above: Performed By: #### L 100.0100, L500.2500 ####[facility] [address] [place], [address] Platelet mean volume (Bld) [Entitic vol] 9.6 fL Normal 6.2-12.0 [facility] Comment on above: Performed By: #### L 100.0100, L500.2500 ####[facility] [address] [place], [address] Platelets (Bld) [#/Vol] 306 10*3/uL Normal 150-450 [facility] Comment on above: Performed By: #### L 100.0100, L500.2500 ####[facility] [address] [place], [address] RBC (Bld) [#/Vol] 4.30 10*6/uL Low 4.6-6.2 [facility] Comment on above: Performed By: #### L 100.0100, L500.2500 ####[facility] [address] [place], [address] RDW SD 43.0 fl Normal 35.1-43.9 [facility] Comment on above: Performed By: #### L 100.0100, L500.2500 ####[facility] [address] [place], [address] WBC (Bld) [#/Vol] 14.3 10*3/uL High 4.4-11.0 [facility] Comment on above: Performed By: #### L 100.0100, L500.2500 ####[facility] [address] [place], [address] Emergency Department Summary on 06-07-2024 Emergency Department Summary Normal [facility] Lipaseon 06-07-2024 Lipase [Catalytic activity/Vol] 35 U/L Normal 13-75 [facility] Comment on above: Result Comment: Nagi nelson note:LIPASE revised reference range effective 22.New Lipase methodology. Expected to produce lower valuesthan the previous assay method.NEW Reference Range: 13 - 75 U/L Performed By: #### L 501.2450, L500.3400 ####[facility] [address] [place], [address] Liver Profileon 06-07-2024 Albumin [Mass/Vol] 3.9 g/dL Normal 3.4-4.8 [facility] Comment on above: Performed By: #### L 501.2450, L500.3400 ####[facility] [address] [place], [address] ALK PHOS 89 U/L Normal 40-129 [facility] Comment on above: Performed By: #### L 501.2450, L500.3400 ####[facility] [address] [place], [address] ALT [Catalytic activity/Vol] 21 U/L Normal <=46 [facility] Comment on above: Performed By: #### L 501.2450, L500.3400 ####[facility] [address] [place], [address] AST [Catalytic activity/Vol] 26 U/L Normal <=37 [facility] Comment on above: Result Comment: Hemo lysis present, Results??could be affected.?? Performed By: #### L 501.2450, L500.3400 ####[facility] [address] [place], [address] Bilirubin [Mass/Vol] 0.49 mg/dL Normal 0.00-1.30 [facility] Comment on above: Performed By: #### L 501.2450, L500.3400 ####[facility] [address] [place], [address] Bilirubin.direct [Mass/Vol] 0.22 mg/dL Normal 0.00-0.30 [facility] Comment on above: Result Comment: Hemo lysis present, Results??could be affected.?? Performed By: #### L 501.2450, L500.3400 ####[facility] [address] [place], [address] Globulin (S) [Mass/Vol] 3.6 g/dL Normal 2.2-4.2 [facility] Comment on above: Performed By: #### L 501.2450, L500.3400 ####[facility] [address] [place], [address] T PROT 7.5 g/dL Normal 5.9-8.4 [facility] Comment on above: Performed By: #### L 501.2450, L500.3400 ####[facility] [address] [place], [address] Urinalysis, Completeon 06-07 CAST,HYALINE 0-5 SEEN Normal 0-5 [facility] Comment on above: Order Comment: COLLE CTOR TO SPECIFY Performed By: #### L 400.0001 ####[facility] [address] [place], [address] RBC 0-5 SEEN Normal 0-5 [facility] Comment on above: Order Comment: COLLE CTOR TO SPECIFY Performed By: #### L 400.0001 ####[facility] [address] [place], [address] WBC 0-5 SEEN Normal 0-5 [facility] Comment on above: Order Comment: COLLE CTOR TO SPECIFY Performed By: #### L 400.0001 ####[facility] [address] [place], [address] BACTERIA 0 SEEN Normal None Seen [facility] Comment on above: Order Comment: COLLE CTOR TO SPECIFY Performed By: #### L 400.0001 ####[facility] [address] [place], [address] EPI,SQUAMOUS 0 SEEN Normal 0-5 [facility] Comment on above: Order Comment: COLLE CTOR TO SPECIFY Performed By: #### L 400.0001 ####[facility] [address] [place], [address] Mucus Ql (Urine sed) 0 SEEN Normal [facility] Comment on above: Order Comment: COLLE CTOR TO SPECIFY Performed By: #### L 400.0001 ####[facility] [address] [place], [address] Basic Metabolic Profile (BMP )on 05-28-2024 BUN/CRE 21.0 RATIO High 10-20 [facility] Comment on above: Performed By: #### L 100.0100, L500.2500 ####[facility] [address] [place], [address] Calcium [Mass/Vol] 9.8 mg/dL Normal 7.6-11.0 [facility] Comment on above: Performed By: #### L 100.0100, L500.2500 ####[facility] [address] [place], [address] Chloride [Moles/Vol] 91 mmol/L Low 98-108 [facility] Comment on above: Performed By: #### L 100.0100, L500.2500 ####[facility] [address] [place], [address] CO2 [Moles/Vol] 26.3 mmol/L Normal 21.0-32.0 [facility] Comment on above: Performed By: #### L 100.0100, L500.2500 ####[facility] [address] [place], [address] Creatinine [Mass/Vol] 0.85 mg/dL Normal 0.70-1.20 [facility] Comment on above: Performed By: #### L 100.0100, L500.2500 ####[facility] [address] [place], [address] ECRCL 88.64 ml/min Normal 50-250 [facility] Comment on above: Performed By: #### L 100.0100, L500.2500 ####[facility] [address] [place], [address] GAP 11 Normal 5-15 [facility] Comment on above: Performed By: #### L 100.0100, L500.2500 ####[facility] [address] [place], [address] GFR/1.73 sq M.predicted among non-blacks MDRD (S/P/Bld) [Vol rate/Area] 90 mL/min/{1.73_m2} Normal >60 [facility] Comment on above: Result Comment: mL/m in/1.73m2 CKD-EPI Creatinine Equation (2020) Performed By: #### L 100.0100, L500.2500 ####[facility] [address] [place], [address] Glucose [Mass/Vol] 114 mg/dL High 70-99 [facility] Comment on above: Performed By: #### L 100.0100, L500.2500 ####[facility] [address] [place], [address] Potassium [Moles/Vol] 3.9 mmol/L Normal 3.3-5.1 [facility] Comment on above: Performed By: #### L 100.0100, L500.2500 ####[facility] [address] [place], [address] Sodium [Moles/Vol] 129 mmol/L Low 133-145 [facility] Comment on above: Performed By: #### L 100.0100, L500.2500 ####[facility] [address] [place], [address] Urea nitrogen [Mass/Vol] 18 mg/dL Normal 4-19 [facility] Comment on above: Performed By: #### L 100.0100, L500.2500 ####[facility] [address] [place], [address] CBC W/Diff, Automatedon 04-2 -2024 Absolute Lymph 1.70 X10 3/uL Normal 0.83-4.51 [facility] Comment on above: Performed By: #### L 100.0100, L500.2500 ####[facility] [address] [place], [address] Absolute Neut 9.5 X10 3/uL High 2.0-7.7 [facility] Comment on above: Performed By: #### L 100.0100, L500.2500 ####[facility] [address] [place], [address] Basophils/100 WBC (Bld) 0.4 % Normal 0-1 [facility] Comment on above: Performed By: #### L 100.0100, L500.2500 ####[facility] [address] [place], [address] Eosinophils/100 WBC (Bld) 0.3 % Normal 0-5 [facility] Comment on above: Performed By: #### L 100.0100, L500.2500 ####[facility] [address] [place], [address] Erythrocyte distribution width (RBC) [Ratio] 12.9 % Normal 11.6-14.6 [facility] Comment on above: Performed By: #### L 100.0100, L500.2500 ####[facility] [address] [place], [address] Hematocrit (Bld) [Volume fraction] 41.7 % Normal 40-54 [facility] Comment on above: Performed By: #### L 100.0100, L500.2500 ####[facility] [address] [place], [address] Hemoglobin (Bld) [Mass/Vol] 14.8 g/dL Normal 13.0-16.5 [facility] Comment on above: Performed By: #### L 100.0100, L500.2500 ####[facility] [address] [place], [address] IG% 0.500 Normal 0.0-0.9 [facility] Comment on above: Result Comment: IG% - Immature Granulocytes (promyelocytes, myelocytes andmetamyelocytes) > 1% indicates that a LEFT SHIFT is Present. Performed By: #### L 100.0100, L500.2500 ####[facility] [address] [place], [address] Lymphocytes/100 WBC (Bld) 13.7 % Low 19-41 [facility] Comment on above: Performed By: #### L 100.0100, L500.2500 ####[facility] [address] [place], [address] MCH (RBC) [Entitic mass] 32.3 pg High 27.0-32.0 [facility] Comment on above: Performed By: #### L 100.0100, L500.2500 ####[facility] [address] [place], [address] MCHC (RBC) [Mass/Vol] 35.5 g/dL Normal 32-36 [facility] Comment on above: Performed By: #### L 100.0100, L500.2500 ####[facility] [address] [place], [address] MCV (RBC) [Entitic vol] 91.0 fL Normal 80-94 [facility] Comment on above: Performed By: #### L 100.0100, L500.2500 ####[facility] [address] [place], [address] Monocytes/100 WBC (Bld) 8.9 % Normal 0-10 [facility] Comment on above: Performed By: #### L 100.0100, L500.2500 ####[facility] [address] [place], [address] Neutrophils/100 WBC (Bld) 76.2 % High 47-70 [facility] Comment on above: Performed By: #### L 100.0100, L500.2500 ####[facility] [address] [place], [address] Nucleated RBC (Bld) [#/Vol] 0 10*3/uL Normal 0-5 [facility] Comment on above: Performed By: #### L 100.0100, L500.2500 ####[facility] [address] [place], [address] Platelet mean volume (Bld) [Entitic vol] 9.5 fL Normal 6.2-12.0 [facility] Comment on above: Performed By: #### L 100.0100, L500.2500 ####[facility] [address] [place], [address] Platelets (Bld) [#/Vol] 316 10*3/uL Normal 150-450 [facility] Comment on above: Performed By: #### L 100.0100, L500.2500 ####[facility] [address] [place], [address] RBC (Bld) [#/Vol] 4.58 10*6/uL Low 4.6-6.2 [facility] Comment on above: Performed By: #### L 100.0100, L500.2500 ####[facility] [address] [place], [address] RDW SD 42.3 fl Normal 35.1-43.9 [facility] Comment on above: Performed By: #### L 100.0100, L500.2500 ####[facility] [address] [place], [address] WBC (Bld) [#/Vol] 12.4 10*3/uL High 4.4-11.0 [facility] Comment on above: Performed By: #### L 100.0100, L500.2500 ####[facility] [address] [place], [address] Emergency Department Summary on 05-28-2024 Emergency Department Summary Normal [facility] 12 Lead EKGon 05-26-2024 12 Lead EKG Normal [facility] CBC W/Diff, Automatedon 05-08 Absolute Lymph 1.66 X10 3/uL Normal 0.83-4.51 [facility] Comment on above: Performed By: #### L 500.4050, L501.2450, L100.0100 ####[facility] [address] [place], [address] Absolute Neut 9.5 X10 3/uL High 2.0-7.7 [facility] Comment on above: Performed By: #### L 500.4050, L501.2450, L100.0100 ####[facility] [address] [place], [address] Basophils/100 WBC (Bld) 0.5 % Normal 0-1 [facility] Comment on above: Performed By: #### L 500.4050, L501.2450, L100.0100 ####[facility] [address] [place], [address] Eosinophils/100 WBC (Bld) 0.5 % Normal 0-5 [facility] Comment on above: Performed By: #### L 500.4050, L501.2450, L100.0100 ####[facility] [address] [place], [address] Erythrocyte distribution width (RBC) [Ratio] 13.2 % Normal 11.6-14.6 [facility] Comment on above: Performed By: #### L 500.4050, L501.2450, L100.0100 ####[facility] [address] [place], [address] Hematocrit (Bld) [Volume fraction] 42.0 % Normal 40-54 [facility] Comment on above: Performed By: #### L 500.4050, L501.2450, L100.0100 ####[facility] [address] [place], [address] Hemoglobin (Bld) [Mass/Vol] 15.2 g/dL Normal 13.0-16.5 [facility] Comment on above: Performed By: #### L 500.4050, L501.2450, L100.0100 ####[facility] [address] [place], [address] IG% 0.300 Normal 0.0-0.9 [facility] Comment on above: Result Comment: IG% - Immature Granulocytes (promyelocytes, myelocytes andmetamyelocytes) > 1% indicates that a LEFT SHIFT is Present. Performed By: #### L 500.4050, L501.2450, L100.0100 ####[facility] [address] [place], [address] Lymphocytes/100 WBC (Bld) 13.4 % Low 19-41 [facility] Comment on above: Performed By: #### L 500.4050, L501.2450, L100.0100 ####[facility] [address] [place], [address] MCH (RBC) [Entitic mass] 33.4 pg High 27.0-32.0 [facility] Comment on above: Performed By: #### L 500.4050, L501.2450, L100.0100 ####[facility] [address] [place], [address] MCHC (RBC) [Mass/Vol] 36.2 g/dL High 32-36 [facility] Comment on above: Performed By: #### L 500.4050, L501.2450, L100.0100 ####[facility] [address] [place], [address] MCV (RBC) [Entitic vol] 92.3 fL Normal 80-94 [facility] Comment on above: Performed By: #### L 500.4050, L501.2450, L100.0100 ####[facility] [address] [place], [address] Monocytes/100 WBC (Bld) 8.2 % Normal 0-10 [facility] Comment on above: Performed By: #### L 500.4050, L501.2450, L100.0100 ####[facility] [address] [place], [address] Neutrophils/100 WBC (Bld) 77.1 % High 47-70 [facility] Comment on above: Performed By: #### L 500.4050, L501.2450, L100.0100 ####[facility] [address] [place], [address] Nucleated RBC (Bld) [#/Vol] 0 10*3/uL Normal 0-5 [facility] Comment on above: Performed By: #### L 500.4050, L501.2450, L100.0100 ####[facility] [address] [place], [address] Platelet mean volume (Bld) [Entitic vol] 9.6 fL Normal 6.2-12.0 [facility] Comment on above: Performed By: #### L 500.4050, L501.2450, L100.0100 ####[facility] [address] [place], [address] Platelets (Bld) [#/Vol] 329 10*3/uL Normal 150-450 [facility] Comment on above: Performed By: #### L 500.4050, L501.2450, L100.0100 ####[facility] [address] [place], [address] RBC (Bld) [#/Vol] 4.55 10*6/uL Low 4.6-6.2 [facility] Comment on above: Performed By: #### L 500.4050, L501.2450, L100.0100 ####[facility] [address] [place], [address] RDW SD 44.5 fl High 35.1-43.9 [facility] Comment on above: Performed By: #### L 500.4050, L501.2450, L100.0100 ####[facility] [address] [place], [address] WBC (Bld) [#/Vol] 12.4 10*3/uL High 4.4-11.0 [facility] Comment on above: Performed By: #### L 500.4050, L501.2450, L100.0100 ####[facility] [address] [place], [address] Comprehensive Metabolic Prof ilon 05-26-2024 Albumin [Mass/Vol] 3.8 g/dL Normal 3.4-4.8 [facility] Comment on above: Performed By: #### L 500.4050, L501.2450, L100.0100 ####[facility] [address] [place], [address] Albumin/Globulin [Mass ratio] 1.0 {ratio} Normal 0.9-2.4 [facility] Comment on above: Performed By: #### L 500.4050, L501.2450, L100.0100 ####[facility] [address] [place], [address] ALK PHOS 94 U/L Normal 40-129 [facility] Comment on above: Performed By: #### L 500.4050, L501.2450, L100.0100 ####[facility] [address] [place], [address] ALT [Catalytic activity/Vol] 22 U/L Normal <=46 [facility] Comment on above: Performed By: #### L 500.4050, L501.2450, L100.0100 ####[facility] [address] [place], [address] AST [Catalytic activity/Vol] 27 U/L Normal <=37 [facility] Comment on above: Result Comment: Hemo lysis present, Results??could be affected.?? Performed By: #### L 500.4050, L501.2450, L100.0100 ####[facility] [address] [place], [address] Bilirubin [Mass/Vol] 0.51 mg/dL Normal 0.00-1.30 [facility] Comment on above: Performed By: #### L 500.4050, L501.2450, L100.0100 ####[facility] [address] [place], [address] BUN/CRE 25.7 RATIO High 10-20 [facility] Comment on above: Performed By: #### L 500.4050, L501.2450, L100.0100 ####[facility] [address] [place], [address] Calcium [Mass/Vol] 9.7 mg/dL Normal 7.6-11.0 [facility] Comment on above: Performed By: #### L 500.4050, L501.2450, L100.0100 ####[facility] [address] [place], [address] Chloride [Moles/Vol] 98 mmol/L Normal 98-108 [facility] Comment on above: Performed By: #### L 500.4050, L501.2450, L100.0100 ####[facility] [address] [place], [address] CO2 [Moles/Vol] 23.4 mmol/L Normal 21.0-32.0 [facility] Comment on above: Performed By: #### L 500.4050, L501.2450, L100.0100 ####[facility] [address] [place], [address] Creatinine [Mass/Vol] 0.86 mg/dL Normal 0.70-1.20 [facility] Comment on above: Performed By: #### L 500.4050, L501.2450, L100.0100 ####[facility] [address] [place], [address] ECRCL 87.90 ml/min Normal 50-250 [facility] Comment on above: Performed By: #### L 500.4050, L501.2450, L100.0100 ####[facility] [address] [place], [address] GAP 13 Normal 5-15 [facility] Comment on above: Performed By: #### L 500.4050, L501.2450, L100.0100 ####[facility] [address] [place], [address] GFR/1.73 sq M.predicted among non-blacks MDRD (S/P/Bld) [Vol rate/Area] 90 mL/min/{1.73_m2} Normal >60 [facility] Comment on above: Result Comment: mL/m in/1.73m2 CKD-EPI Creatinine Equation (2020) Performed By: #### L 500.4050, L501.2450, L100.0100 ####[facility] [address] [place], [address] Globulin (S) [Mass/Vol] 3.7 g/dL Normal 2.2-4.2 [facility] Comment on above: Performed By: #### L 500.4050, L501.2450, L100.0100 ####[facility] [address] [place], [address] Glucose [Mass/Vol] 111 mg/dL High 70-99 [facility] Comment on above: Performed By: #### L 500.4050, L501.2450, L100.0100 ####[facility] [address] [place], [address] Potassium [Moles/Vol] 4.5 mmol/L Normal 3.3-5.1 [facility] Comment on above: Result Comment: Hemo lysis present, Results??could be affected.?? Performed By: #### L 500.4050, L501.2450, L100.0100 ####[facility] [address] [place], [address] Sodium [Moles/Vol] 135 mmol/L Normal 133-145 [facility] Comment on above: Performed By: #### L 500.4050, L501.2450, L100.0100 ####[facility] [address] [place], [address] T PROT 7.5 g/dL Normal 5.9-8.4 [facility] Comment on above: Performed By: #### L 500.4050, L501.2450, L100.0100 ####[facility] [address] [place], [address] Urea nitrogen [Mass/Vol] 22 mg/dL High - [facility] Comment on above: Performed By: #### L 500.4050, L501.2450, L100.0100 ####[facility] [address] [place], [address] Emergency Department Summary on 05-26-2024 Emergency Department Summary Normal [facility] Lipaseon 05-26-2024 Lipase [Catalytic activity/Vol] 132 U/L High 13-75 [facility] Comment on above: Result Comment: Nagi nelson note:LIPASE revised reference range effective 22.New Lipase methodology. Expected to produce lower valuesthan the previous assay method.NEW Reference Range: 13 - 75 U/L Performed By: #### L 500.4050, L501.2450, L100.0100 ####[facility] [address] [place], [address] Urinalysis, Completeon 05-26 BACTERIA 0 SEEN Normal None Seen [facility] Comment on above: Order Comment: CLEAN CATCH Performed By: #### L 400.0001 ####[facility] [address] [place], [address] EPI,SQUAMOUS 0 SEEN Normal 0-5 [facility] Comment on above: Order Comment: CLEAN CATCH Performed By: #### L 400.0001 ####[facility] [address] [place], [address] Mucus Ql (Urine sed) 0 SEEN Normal [facility] Comment on above: Order Comment: CLEAN CATCH Performed By: #### L 400.0001 ####[facility] [address] [place], [address] RBC 0 SEEN Normal 0-5 [facility] Comment on above: Order Comment: CLEAN CATCH Performed By: #### L 400.0001 ####[facility] [address] [place], [address] WBC 0 SEEN Normal 0-5 [facility] Comment on above: Order Comment: CLEAN CATCH Performed By: #### L 400.0001 ####[facility] [address] [facility] [address] Urine Drug Screen (VISTA)on 05-26-2024 AMPHETAMINES Negative Normal <1000 ng/mL [facility] Comment on above: Performed By: #### L 505.5000 ####[facility] [address] [place] [id number] BARBITIURATES Negative Normal < 200 ng/mL [facility] Comment on above: Performed By: #### L 505.5000 ####[facility] [address] [place] [address] BENZODIAZIPINE Positive Normal < 200 ng/mL [facility] Comment on above: Result Comment: If c onfirmation testing is needed, a separate order will berequired to send out testing to the reference laboratory. Performed By: #### L 505.5000 ####[facility] [address] [place] [address] BUP Ur Drug Scr Negative Normal < 200 ng/mL [facility] Comment on above: Performed By: #### L 505.5000 ####[facility] [address] [place] [address] COCAINE Negative Normal < 300 ng/mL [facility] Comment on above: Performed By: #### L 505.5000 ####[facility] [address] [place] [id number] Fentanyl Negative Normal [facility] Comment on above: Performed By: #### L 505.5000 ####[facility] [address] [facility] [address] METHADONE Negative Normal < 300 ng/mL [facility] Comment on above: Performed By: #### L 505.5000 ####[facility] [address] [place], [address] OPIATES Negative Normal < 300 ng/mL [facility] Comment on above: Performed By: #### L 505.5000 ####[facility] [address] [place], [address] OXYCODONE Negative Normal < 100 ng/mL [facility] Comment on above: Performed By: #### L 505.5000 ####[facility] [address] [place], [address] PCP Negative Normal < 25 ng/mL [facility] Comment on above: Performed By: #### L 505.5000 ####[facility] [address] [place], [address] THC Negative Normal < 50 ng/mL [facility] Comment on above: Performed By: #### L 505.5000 ####[facility] [address] [place], [address] CBC W/Diff, Automatedon 05-08 Absolute Lymph 1.99 X10 3/uL Normal 0.83-4.51 [facility] Comment on above: Performed By: #### L 500.4050, L100.0100, L503.7505 ####[facility] [address] [place], [address] Absolute Neut 6.1 X10 3/uL Normal 2.0-7.7 [facility] Comment on above: Performed By: #### L 500.4050, L100.0100, L503.7505 ####[facility] [address] [place], [address] Basophils/100 WBC (Bld) 0.5 % Normal 0-1 [facility] Comment on above: Performed By: #### L 500.4050, L100.0100, L503.7505 ####[facility] [address] [place], [address] Eosinophils/100 WBC (Bld) 1.1 % Normal 0-5 [facility] Comment on above: Performed By: #### L 500.4050, L100.0100, L503.7505 ####[facility] [address] [place], [address] Erythrocyte distribution width (RBC) [Ratio] 12.6 % Normal 11.6-14.6 [facility] Comment on above: Performed By: #### L 500.4050, L100.0100, L503.7505 ####[facility] [address] [place], [address] Hematocrit (Bld) [Volume fraction] 40.2 % Normal 40-54 [facility] Comment on above: Performed By: #### L 500.4050, L100.0100, L503.7505 ####[facility] [address] [place], [address] Hemoglobin (Bld) [Mass/Vol] 13.9 g/dL Normal 13.0-16.5 [facility] Comment on above: Performed By: #### L 500.4050, L100.0100, L503.7505 ####[facility] [address] [place], [address] IG% 0.500 Normal 0.0-0.9 [facility] Comment on above: Result Comment: IG% - Immature Granulocytes (promyelocytes, myelocytes andmetamyelocytes) > 1% indicates that a LEFT SHIFT is Present. Performed By: #### L 500.4050, L100.0100, L503.7505 ####[facility] [address] [place], [address] Lymphocytes/100 WBC (Bld) 21.4 % Normal 19-41 [facility] Comment on above: Performed By: #### L 500.4050, L100.0100, L503.7505 ####[facility] [address] [place], [address] MCH (RBC) [Entitic mass] 32.3 pg High 27.0-32.0 [facility] Comment on above: Performed By: #### L 500.4050, L100.0100, L503.7505 ####[facility] [address] [place], [address] MCHC (RBC) [Mass/Vol] 34.6 g/dL Normal 32-36 [facility] Comment on above: Performed By: #### L 500.4050, L100.0100, L503.7505 ####[facility] [address] [place], [address] MCV (RBC) [Entitic vol] 93.5 fL Normal 80-94 [facility] Comment on above: Performed By: #### L 500.4050, L100.0100, L503.7505 ####[facility] [address] [place], [address] Monocytes/100 WBC (Bld) 11.3 % High 0-10 [facility] Comment on above: Performed By: #### L 500.4050, L100.0100, L503.7505 ####[facility] [address] [place], [address] Neutrophils/100 WBC (Bld) 65.2 % Normal 47-70 [facility] Comment on above: Performed By: #### L 500.4050, L100.0100, L503.7505 ####[facility] [address] [place], [address] Nucleated RBC (Bld) [#/Vol] 0 10*3/uL Normal 0-5 [facility] Comment on above: Performed By: #### L 500.4050, L100.0100, L503.7505 ####[facility] [address] [place], [address] Platelet mean volume (Bld) [Entitic vol] 9.8 fL Normal 6.2-12.0 [facility] Comment on above: Performed By: #### L 500.4050, L100.0100, L503.7505 ####[facility] [address] [place], [address] Platelets (Bld) [#/Vol] 309 10*3/uL Normal 150-450 [facility] Comment on above: Performed By: #### L 500.4050, L100.0100, L503.7505 ####[facility] [address] [place], [address] RBC (Bld) [#/Vol] 4.30 10*6/uL Low 4.6-6.2 [facility] Comment on above: Performed By: #### L 500.4050, L100.0100, L503.7505 ####[facility] [address] [place], [address] RDW SD 42.7 fl Normal 35.1-43.9 [facility] Comment on above: Performed By: #### L 500.4050, L100.0100, L503.7505 ####[facility] [address] [place], [address] WBC (Bld) [#/Vol] 9.3 10*3/uL Normal 4.4-11.0 [facility] Comment on above: Performed By: #### L 500.4050, L100.0100, L503.7505 ####[facility] [address] [place], [address] Comprehensive Metabolic Prof ilon 05-21-2024 Albumin [Mass/Vol] 3.6 g/dL Normal 3.4-4.8 [facility] Comment on above: Performed By: #### L 500.4050, L100.0100, L503.7505 ####[facility] [address] [place], [address] Albumin/Globulin [Mass ratio] 1.0 {ratio} Normal 0.9-2.4 [facility] Comment on above: Performed By: #### L 500.4050, L100.0100, L503.7505 ####[facility] [address] [place], [address] ALK PHOS 92 U/L Normal 40-129 [facility] Comment on above: Performed By: #### L 500.4050, L100.0100, L503.7505 ####[facility] [address] [place], [address] ALT [Catalytic activity/Vol] 17 U/L Normal <=46 [facility] Comment on above: Performed By: #### L 500.4050, L100.0100, L503.7505 ####[facility] [address] [place], [address] AST [Catalytic activity/Vol] 27 U/L Normal <=37 [facility] Comment on above: Performed By: #### L 500.4050, L100.0100, L503.7505 ####[facility] [address] [place], [address] Bilirubin [Mass/Vol] 0.47 mg/dL Normal 0.00-1.30 [facility] Comment on above: Performed By: #### L 500.4050, L100.0100, L503.7505 ####[facility] [address] [place], [address] BUN/CRE 14.6 RATIO Normal 10-20 [facility] Comment on above: Performed By: #### L 500.4050, L100.0100, L503.7505 ####[facility] [address] [place], [address] Calcium [Mass/Vol] 9.5 mg/dL Normal 7.6-11.0 [facility] Comment on above: Performed By: #### L 500.4050, L100.0100, L503.7505 ####[facility] [address] [place], [address] Chloride [Moles/Vol] 92 mmol/L Low 98-108 [facility] Comment on above: Performed By: #### L 500.4050, L100.0100, L503.7505 ####[facility] [address] [place], [address] CO2 [Moles/Vol] 26.3 mmol/L Normal 21.0-32.0 [facility] Comment on above: Performed By: #### L 500.4050, L100.0100, L503.7505 ####[facility] [address] [place], [address] Creatinine [Mass/Vol] 0.70 mg/dL Normal 0.70-1.20 [facility] Comment on above: Performed By: #### L 500.4050, L100.0100, L503.7505 ####[facility] [address] [place], [address] GAP 11 Normal 5-15 [facility] Comment on above: Performed By: #### L 500.4050, L100.0100, L503.7505 ####[facility] [address] [place], [address] GFR/1.73 sq M.predicted among non-blacks MDRD (S/P/Bld) [Vol rate/Area] 95 mL/min/{1.73_m2} Normal >60 [facility] Comment on above: Result Comment: mL/m in/1.73m2 CKD-EPI Creatinine Equation (2020) Performed By: #### L 500.4050, L100.0100, L503.7505 ####[facility] [address] [place], [address] Globulin (S) [Mass/Vol] 3.6 g/dL Normal 2.2-4.2 [facility] Comment on above: Performed By: #### L 500.4050, L100.0100, L503.7505 ####[facility] [address] [place], [address] Glucose [Mass/Vol] 99 mg/dL Normal 70-99 [facility] Comment on above: Performed By: #### L 500.4050, L100.0100, L503.7505 ####[facility] [address] [place], [address] Potassium [Moles/Vol] 4.4 mmol/L Normal 3.3-5.1 [facility] Comment on above: Performed By: #### L 500.4050, L100.0100, L503.7505 ####[facility] [address] [place], [address] Sodium [Moles/Vol] 129 mmol/L Low 133-145 [facility] Comment on above: Performed By: #### L 500.4050, L100.0100, L503.7505 ####[facility] [address] [place], [address] T PROT 7.2 g/dL Normal 5.9-8.4 [facility] Comment on above: Performed By: #### L 500.4050, L100.0100, L503.7505 ####[facility] [address] [place], [address] Urea nitrogen [Mass/Vol] 10 mg/dL Normal 4-19 [facility] Comment on above: Performed By: #### L 500.4050, L100.0100, L503.7505 ####[facility] [address] [place], [address] L503.7505on 05-21-2024 Natriuretic peptide B (Bld) [Mass/Vol] 66 pg/mL Normal <=1800 [facility] Comment on above: Result Comment: Hear t Failure Unlikely: < 300 pg/mLHeart Failure Likely< 50 Years: > 450 pg/mL50-75 Years: > 900 pg/mL>75 Years: > 1800 pg/mL Performed By: #### L 500.4050, L100.0100, L503.7505 ####[facility] [address] [place], [address] Basic Metabolic Profile (BMP )on 04-30-2024 BUN/CRE 23.2 RATIO High 10-20 [facility] Comment on above: Order Comment: 103.2 Performed By: #### L 100.0100, L506.1001, L503.0106, L500.2500, L501.9520, L501.5200 ####[facility] [address] [place], [address] Calcium [Mass/Vol] 9.4 mg/dL Normal 7.6-11.0 [facility] Comment on above: Order Comment: 103.2 Performed By: #### L 100.0100, L506.1001, L503.0106, L500.2500, L501.9520, L501.5200 ####[facility] [address] [place], [address] Chloride [Moles/Vol] 98 mmol/L Normal 98-108 [facility] Comment on above: Order Comment: 103.2 Performed By: #### L 100.0100, L506.1001, L503.0106, L500.2500, L501.9520, L501.5200 ####[facility] [address] [place], [address] CO2 [Moles/Vol] 24.1 mmol/L Normal 21.0-32.0 [facility] Comment on above: Order Comment: 103.2 Performed By: #### L 100.0100, L506.1001, L503.0106, L500.2500, L501.9520, L501.5200 ####[facility] [address] [place], [address] Creatinine [Mass/Vol] 0.87 mg/dL Normal 0.70-1.20 [facility] Comment on above: Order Comment: 103.2 Performed By: #### L 100.0100, L506.1001, L503.0106, L500.2500, L501.9520, L501.5200 ####[facility] [address] [place], [address] GAP 12 Normal 5-15 [facility] Comment on above: Order Comment: 103.2 Performed By: #### L 100.0100, L506.1001, L503.0106, L500.2500, L501.9520, L501.5200 ####[facility] [address] [place], [address] GFR/1.73 sq M.predicted among non-blacks MDRD (S/P/Bld) [Vol rate/Area] 90 mL/min/{1.73_m2} Normal >60 [facility] Comment on above: Order Comment: 103.2 Result Comment: mL/m in/1.73m2 CKD-EPI Creatinine Equation (2020) Performed By: #### L 100.0100, L506.1001, L503.0106, L500.2500, L501.9520, L501.5200 ####[facility] [address] [place], [address] Glucose [Mass/Vol] 121 mg/dL High 70-99 [facility] Comment on above: Order Comment: 103.2 Performed By: #### L 100.0100, L506.1001, L503.0106, L500.2500, L501.9520, L501.5200 ####[facility] [address] [place], [address] Potassium [Moles/Vol] 4.2 mmol/L Normal 3.3-5.1 [facility] Comment on above: Order Comment: 103.2 Performed By: #### L 100.0100, L506.1001, L503.0106, L500.2500, L501.9520, L501.5200 ####[facility] [address] [place], [address] Sodium [Moles/Vol] 134 mmol/L Normal 133-145 [facility] Comment on above: Order Comment: 103.2 Performed By: #### L 100.0100, L506.1001, L503.0106, L500.2500, L501.9520, L501.5200 ####[facility] [address] [place], [address] Urea nitrogen [Mass/Vol] 20 mg/dL High 4-19 [facility] Comment on above: Order Comment: 103.2 Performed By: #### L 100.0100, L506.1001, L503.0106, L500.2500, L501.9520, L501.5200 ####[facility] [address] [place], [address] CBC W/Diff, Automatedon 03-2 Absolute Lymph 1.32 X10 3/uL Normal 0.83-4.51 [facility] Comment on above: Order Comment: 103.2 Performed By: #### L 100.0100, L506.1001, L503.0106, L500.2500, L501.9520, L501.5200 ####[facility] [address] [place], [address] Absolute Neut 3.2 X10 3/uL Normal 2.0-7.7 [facility] Comment on above: Order Comment: 103.2 Performed By: #### L 100.0100, L506.1001, L503.0106, L500.2500, L501.9520, L501.5200 ####[facility] [address] [place], [address] Basophils/100 WBC (Bld) 1.0 % Normal 0-1 [facility] Comment on above: Order Comment: 103.2 Performed By: #### L 100.0100, L506.1001, L503.0106, L500.2500, L501.9520, L501.5200 ####[facility] [address] [place], [address] Eosinophils/100 WBC (Bld) 4.4 % Normal 0-5 [facility] Comment on above: Order Comment: 103.2 Performed By: #### L 100.0100, L506.1001, L503.0106, L500.2500, L501.9520, L501.5200 ####[facility] [address] [place], [address] Erythrocyte distribution width (RBC) [Ratio] 13.2 % Normal 11.6-14.6 [facility] Comment on above: Order Comment: 103.2 Performed By: #### L 100.0100, L506.1001, L503.0106, L500.2500, L501.9520, L501.5200 ####[facility] [address] [place], [address] Hematocrit (Bld) [Volume fraction] 42.5 % Normal 40-54 [facility] Comment on above: Order Comment: 103.2 Performed By: #### L 100.0100, L506.1001, L503.0106, L500.2500, L501.9520, L501.5200 ####[facility] [address] [place], [address] Hemoglobin (Bld) [Mass/Vol] 14.5 g/dL Normal 13.0-16.5 [facility] Comment on above: Order Comment: 103.2 Performed By: #### L 100.0100, L506.1001, L503.0106, L500.2500, L501.9520, L501.5200 ####[facility] [address] [place], [address] IG% 0.700 Normal 0.0-0.9 [facility] Comment on above: Order Comment: 103.2 Result Comment: IG% - Immature Granulocytes (promyelocytes, myelocytes andmetamyelocytes) > 1% indicates that a LEFT SHIFT is Present. Performed By: #### L 100.0100, L506.1001, L503.0106, L500.2500, L501.9520, L501.5200 ####[facility] [address] [place], [address] Lymphocytes/100 WBC (Bld) 22.4 % Normal 19-41 [facility] Comment on above: Order Comment: 103.2 Performed By: #### L 100.0100, L506.1001, L503.0106, L500.2500, L501.9520, L501.5200 ####[facility] [address] [place], [address] MCH (RBC) [Entitic mass] 33.3 pg High 27.0-32.0 [facility] Comment on above: Order Comment: 103.2 Performed By: #### L 100.0100, L506.1001, L503.0106, L500.2500, L501.9520, L501.5200 ####[facility] [address] [place], [address] MCHC (RBC) [Mass/Vol] 34.1 g/dL Normal 32-36 [facility] Comment on above: Order Comment: 103.2 Performed By: #### L 100.0100, L506.1001, L503.0106, L500.2500, L501.9520, L501.5200 ####[facility] [address] [place], [address] MCV (RBC) [Entitic vol] 97.7 fL High 80-94 [facility] Comment on above: Order Comment: 103.2 Performed By: #### L 100.0100, L506.1001, L503.0106, L500.2500, L501.9520, L501.5200 ####[facility] [address] [place], [address] Monocytes/100 WBC (Bld) 17.5 % High 0-10 [facility] Comment on above: Order Comment: 103.2 Performed By: #### L 100.0100, L506.1001, L503.0106, L500.2500, L501.9520, L501.5200 ####[facility] [address] [place], [address] Neutrophils/100 WBC (Bld) 54.0 % Normal 47-70 [facility] Comment on above: Order Comment: 103.2 Performed By: #### L 100.0100, L506.1001, L503.0106, L500.2500, L501.9520, L501.5200 ####[facility] [address] [place], [address] Nucleated RBC (Bld) [#/Vol] 0 10*3/uL Normal 0-5 [facility] Comment on above: Order Comment: 103.2 Performed By: #### L 100.0100, L506.1001, L503.0106, L500.2500, L501.9520, L501.5200 ####[facility] [address] [place], [address] Platelet mean volume (Bld) [Entitic vol] 10.2 fL Normal 6.2-12.0 [facility] Comment on above: Order Comment: 103.2 Performed By: #### L 100.0100, L506.1001, L503.0106, L500.2500, L501.9520, L501.5200 ####[facility] [address] [place], [address] Platelets (Bld) [#/Vol] 172 10*3/uL Normal 150-450 [facility] Comment on above: Order Comment: 103.2 Performed By: #### L 100.0100, L506.1001, L503.0106, L500.2500, L501.9520, L501.5200 ####[facility] [address] [place], [address] RBC (Bld) [#/Vol] 4.35 10*6/uL Low 4.6-6.2 [facility] Comment on above: Order Comment: 103.2 Performed By: #### L 100.0100, L506.1001, L503.0106, L500.2500, L501.9520, L501.5200 ####[facility] [address] [place], [address] RDW SD 47.0 fl High 35.1-43.9 [facility] Comment on above: Order Comment: 103.2 Performed By: #### L 100.0100, L506.1001, L503.0106, L500.2500, L501.9520, L501.5200 ####[facility] [address] [place], [address] WBC (Bld) [#/Vol] 5.9 10*3/uL Normal 4.4-11.0 [facility] Comment on above: Order Comment: 103.2 Performed By: #### L 100.0100, L506.1001, L503.0106, L500.2500, L501.9520, L501.5200 ####[facility] [address] [place], [address] L503.0106on 04-30-2024 Cobalamin (Vitamin B12) [Mass/Vol] 522 pg/mL Normal 180-914 [facility] Comment on above: Order Comment: 103.2 Performed By: #### L 100.0100, L506.1001, L503.0106, L500.2500, L501.9520, L501.5200 ####[facility] [address] [place], [place], [address] L506.1001on 04-30-2024 Vitamin D 25-OH 52.8 ng/mL Normal 30-100 [facility] Comment on above: Order Comment: 103.2 Result Comment: Sandra min D StatusDeficiency: <20 ng/mL (50nmol/L)Insufficiency: 20-30 ng/mL (50-75 nmol/L)Sufficiency: 30-100 ng/mL (75-250 nmol/L)Toxicity: >100 ng/mL (>250 nmol/L) Performed By: #### L 100.0100, L506.1001, L503.0106, L500.2500, L501.9520, L501.5200 ####[facility] [address] [place], [address] Magnesiumon 04-30-2024 Magnesium [Mass/Vol] 2.1 mg/dL Normal 1.5-2.2 [facility] Comment on above: Order Comment: 103.2 Performed By: #### L 100.0100, L506.1001, L503.0106, L500.2500, L501.9520, L501.5200 ####[facility] [address] [place], [address] Thyroid Stim Hormone (TSH)on 04-30-2024 TSH 3.020 uIU/mL Normal 0.300-4.200 [facility] Comment on above: Order Comment: 103.2 Performed By: #### L 100.0100, L506.1001, L503.0106, L500.2500, L501.9520, L501.5200 ####[facility] [address] [place], [address] Basic Metabolic Profile (BMP )on 04-23-2024 BUN/CRE 21.4 RATIO High 10-20 [facility] Comment on above: Performed By: #### L 100.0100, L500.2500 ####[facility] [address] [place], [address] Calcium [Mass/Vol] 8.9 mg/dL Normal 7.6-11.0 [facility] Comment on above: Performed By: #### L 100.0100, L500.2500 ####[facility] [address] [place], [address] Chloride [Moles/Vol] 97 mmol/L Low 98-108 [facility] Comment on above: Performed By: #### L 100.0100, L500.2500 ####[facility] [address] [place], [address] CO2 [Moles/Vol] 25.6 mmol/L Normal 21.0-32.0 [facility] Comment on above: Performed By: #### L 100.0100, L500.2500 ####[facility] [address] [place], [address] Creatinine [Mass/Vol] 0.78 mg/dL Normal 0.70-1.20 [facility] Comment on above: Performed By: #### L 100.0100, L500.2500 ####[facility] [address] [place], [address] ECRCL 86.71 ml/min Normal 50-250 [facility] Comment on above: Performed By: #### L 100.0100, L500.2500 ####[facility] [address] [place], [address] GAP 11 Normal 5-15 [facility] Comment on above: Performed By: #### L 100.0100, L500.2500 ####[facility] [address] [place], [address] GFR/1.73 sq M.predicted among non-blacks MDRD (S/P/Bld) [Vol rate/Area] 93 mL/min/{1.73_m2} Normal >60 [facility] Comment on above: Result Comment: mL/m in/1.73m2 CKD-EPI Creatinine Equation (2020) Performed By: #### L 100.0100, L500.2500 ####[facility] [address] [place], [address] Glucose [Mass/Vol] 95 mg/dL Normal 70-99 [facility] Comment on above: Performed By: #### L 100.0100, L500.2500 ####[facility] [address] [place], [address] Potassium [Moles/Vol] 4.7 mmol/L Normal 3.3-5.1 [facility] Comment on above: Performed By: #### L 100.0100, L500.2500 ####[facility] [address] [place], [address] Sodium [Moles/Vol] 133 mmol/L Normal 133-145 [facility] Comment on above: Performed By: #### L 100.0100, L500.2500 ####[facility] [address] [place], [address] Urea nitrogen [Mass/Vol] 17 mg/dL Normal 4-19 [facility] Comment on above: Performed By: #### L 100.0100, L500.2500 ####[facility] [address] [place], [address] CBC W/Diff, Automatedon 04-07 Absolute Lymph 0.88 X10 3/uL Normal 0.83-4.51 [facility] Comment on above: Performed By: #### L 100.0100, L500.2500 ####[facility] [address] [place], [address] Absolute Neut 6.6 X10 3/uL Normal 2.0-7.7 [facility] Comment on above: Performed By: #### L 100.0100, L500.2500 ####[facility] [address] [place], [address] Basophils/100 WBC (Bld) 0.4 % Normal 0-1 [facility] Comment on above: Performed By: #### L 100.0100, L500.2500 ####[facility] [address] [place], [address] Eosinophils/100 WBC (Bld) 0.1 % Normal 0-5 [facility] Comment on above: Performed By: #### L 100.0100, L500.2500 ####[facility] [address] [place], [address] Erythrocyte distribution width (RBC) [Ratio] 13.7 % Normal 11.6-14.6 [facility] Comment on above: Performed By: #### L 100.0100, L500.2500 ####[facility] [address] [place], [address] Hematocrit (Bld) [Volume fraction] 40.4 % Normal 40-54 [facility] Comment on above: Performed By: #### L 100.0100, L500.2500 ####[facility] [address] [place], [address] Hemoglobin (Bld) [Mass/Vol] 13.7 g/dL Normal 13.0-16.5 [facility] Comment on above: Performed By: #### L 100.0100, L500.2500 ####[facility] [address] [place], [address] IG% 0.600 Normal 0.0-0.9 [facility] Comment on above: Result Comment: IG% - Immature Granulocytes (promyelocytes, myelocytes andmetamyelocytes) > 1% indicates that a LEFT SHIFT is Present. Performed By: #### L 100.0100, L500.2500 ####[facility] [address] [place], [address] Lymphocytes/100 WBC (Bld) 10.4 % Low 19-41 [facility] Comment on above: Performed By: #### L 100.0100, L500.2500 ####[facility] [address] [place], [address] MCH (RBC) [Entitic mass] 32.5 pg High 27.0-32.0 [facility] Comment on above: Performed By: #### L 100.0100, L500.2500 ####[facility] [address] [place], [address] MCHC (RBC) [Mass/Vol] 33.9 g/dL Normal 32-36 [facility] Comment on above: Performed By: #### L 100.0100, L500.2500 ####[facility] [address] [place], [address] MCV (RBC) [Entitic vol] 95.7 fL High 80-94 [facility] Comment on above: Performed By: #### L 100.0100, L500.2500 ####[facility] [address] [place], [address] Monocytes/100 WBC (Bld) 11.0 % High 0-10 [facility] Comment on above: Performed By: #### L 100.0100, L500.2500 ####[facility] [address] [place], [address] Neutrophils/100 WBC (Bld) 77.5 % High 47-70 [facility] Comment on above: Performed By: #### L 100.0100, L500.2500 ####[facility] [address] [place], [address] Nucleated RBC (Bld) [#/Vol] 0 10*3/uL Normal 0-5 [facility] Comment on above: Performed By: #### L 100.0100, L500.2500 ####[facility] [address] [place], [address] Platelet mean volume (Bld) [Entitic vol] 9.9 fL Normal 6.2-12.0 [facility] Comment on above: Performed By: #### L 100.0100, L500.2500 ####[facility] [address] [place], [address] Platelets (Bld) [#/Vol] 148 10*3/uL Low 150-450 [facility] Comment on above: Performed By: #### L 100.0100, L500.2500 ####[facility] [address] [place], [address] RBC (Bld) [#/Vol] 4.22 10*6/uL Low 4.6-6.2 [facility] Comment on above: Performed By: #### L 100.0100, L500.2500 ####[facility] [address] [place], [address] RDW SD 48.1 fl High 35.1-43.9 [facility] Comment on above: Performed By: #### L 100.0100, L500.2500 ####[facility] [address] [place], [address] WBC (Bld) [#/Vol] 8.5 10*3/uL Normal 4.4-11.0 [facility] Comment on above: Performed By: #### L 100.0100, L500.2500 ####[facility] [address] [place], [address] Pelvis (Routine)on 5 Pelvis (Routine) Normal [facility] 12 Lead EKGon 04-22-2024 12 Lead EKG Normal [facility] Alcohol, Blood (Medical)-Ser umon 04-22-2024 SERUM ETOH 91.6 mg/dL High <=10.0 [facility] Comment on above: Result Comment: This test is for medical purposes only. The legaldefinition of intoxication varies according to local law. Performed By: #### L 501.9100 ####[facility] [address] [place], [address] Basic Metabolic Profile (BMP )on 04-22-2024 BUN/CRE 16.9 RATIO Normal 10-20 [facility] Comment on above: Performed By: #### L 500.3400, L100.0100, L500.2500, L501.2450, L501.4021 ####[facility] [address] [place], [address] Calcium [Mass/Vol] 9.2 mg/dL Normal 7.6-11.0 [facility] Comment on above: Performed By: #### L 500.3400, L100.0100, L500.2500, L501.2450, L501.4021 ####[facility] [address] [place], [address] Chloride [Moles/Vol] 99 mmol/L Normal 98-108 [facility] Comment on above: Performed By: #### L 500.3400, L100.0100, L500.2500, L501.2450, L501.4021 ####[facility] [address] [place], [address] CO2 [Moles/Vol] 25.2 mmol/L Normal 21.0-32.0 [facility] Comment on above: Performed By: #### L 500.3400, L100.0100, L500.2500, L501.2450, L501.4021 ####[facility] [address] [place], [address] Creatinine [Mass/Vol] 0.93 mg/dL Normal 0.70-1.20 [facility] Comment on above: Performed By: #### L 500.3400, L100.0100, L500.2500, L501.2450, L501.4021 ####[facility] [address] [place], [address] ECRCL 86.05 ml/min Normal 50-250 [facility] Comment on above: Performed By: #### L 500.3400, L100.0100, L500.2500, L501.2450, L501.4021 ####[facility] [address] [place], [address] GAP 14 Normal 5-15 [facility] Comment on above: Performed By: #### L 500.3400, L100.0100, L500.2500, L501.2450, L501.4021 ####[facility] [address] [place], [address] GFR/1.73 sq M.predicted among non-blacks MDRD (S/P/Bld) [Vol rate/Area] 86 mL/min/{1.73_m2} Normal >60 [facility] Comment on above: Result Comment: mL/m in/1.73m2 CKD-EPI Creatinine Equation (2020) Performed By: #### L 500.3400, L100.0100, L500.2500, L501.2450, L501.4021 ####[facility] [address] [place], [address] Glucose [Mass/Vol] 79 mg/dL Normal 70-99 [facility] Comment on above: Performed By: #### L 500.3400, L100.0100, L500.2500, L501.2450, L501.4021 ####[facility] [address] [place], [address] Potassium [Moles/Vol] 4.3 mmol/L Normal 3.3-5.1 [facility] Comment on above: Performed By: #### L 500.3400, L100.0100, L500.2500, L501.2450, L501.4021 ####[facility] [address] [place], [address] Sodium [Moles/Vol] 138 mmol/L Normal 133-145 [facility] Comment on above: Performed By: #### L 500.3400, L100.0100, L500.2500, L501.2450, L501.4021 ####[facility] [address] [place], [address] Urea nitrogen [Mass/Vol] 16 mg/dL Normal 4-19 [facility] Comment on above: Performed By: #### L 500.3400, L100.0100, L500.2500, L501.2450, L501.4021 ####[facility] [address] [place], [address] Brain/Head without Contrasto n 04-22-2024 Brain/Head without Contrast Normal [facility] CBC W/Diff, Automatedon - Absolute Lymph 1.32 X10 3/uL Normal 0.83-4.51 [facility] Comment on above: Performed By: #### L 500.3400, L100.0100, L500.2500, L501.2450, L501.4021 ####[facility] [address] [place], [address] Absolute Neut 12.2 X10 3/uL High 2.0-7.7 [facility] Comment on above: Performed By: #### L 500.3400, L100.0100, L500.2500, L501.2450, L501.4021 ####[facility] [address] [place], [address] Basophils/100 WBC (Bld) 0.2 % Normal 0-1 [facility] Comment on above: Performed By: #### L 500.3400, L100.0100, L500.2500, L501.2450, L501.4021 ####[facility] [address] [place], [address] Eosinophils/100 WBC (Bld) 0.1 % Normal 0-5 [facility] Comment on above: Performed By: #### L 500.3400, L100.0100, L500.2500, L501.2450, L501.4021 ####[facility] [address] [place], [address] Erythrocyte distribution width (RBC) [Ratio] 13.6 % Normal 11.6-14.6 [facility] Comment on above: Performed By: #### L 500.3400, L100.0100, L500.2500, L501.2450, L501.4021 ####[facility] [address] [place], [address] Hematocrit (Bld) [Volume fraction] 42.9 % Normal 40-54 [facility] Comment on above: Performed By: #### L 500.3400, L100.0100, L500.2500, L501.2450, L501.4021 ####[facility] [address] [place], [address] Hemoglobin (Bld) [Mass/Vol] 14.5 g/dL Normal 13.0-16.5 [facility] Comment on above: Performed By: #### L 500.3400, L100.0100, L500.2500, L501.2450, L501.4021 ####[facility] [address] [place], [address] IG% 1.000 High 0.0-0.9 [facility] Comment on above: Result Comment: IG% - Immature Granulocytes (promyelocytes, myelocytes andmetamyelocytes) > 1% indicates that a LEFT SHIFT is Present. Performed By: #### L 500.3400, L100.0100, L500.2500, L501.2450, L501.4021 ####[facility] [address] [place], [address] Lymphocytes/100 WBC (Bld) 9.0 % Low 19-41 [facility] Comment on above: Performed By: #### L 500.3400, L100.0100, L500.2500, L501.2450, L501.4021 ####[facility] [address] [place], [address] MCH (RBC) [Entitic mass] 32.6 pg High 27.0-32.0 [facility] Comment on above: Performed By: #### L 500.3400, L100.0100, L500.2500, L501.2450, L501.4021 ####[facility] [address] [place], [address] MCHC (RBC) [Mass/Vol] 33.8 g/dL Normal 32-36 [facility] Comment on above: Performed By: #### L 500.3400, L100.0100, L500.2500, L501.2450, L501.4021 ####[facility] [address] [place], [address] MCV (RBC) [Entitic vol] 96.4 fL High 80-94 [facility] Comment on above: Performed By: #### L 500.3400, L100.0100, L500.2500, L501.2450, L501.4021 ####[facility] [address] [place], [address] Monocytes/100 WBC (Bld) 7.0 % Normal 0-10 [facility] Comment on above: Performed By: #### L 500.3400, L100.0100, L500.2500, L501.2450, L501.4021 ####[facility] [address] [place], [address] Neutrophils/100 WBC (Bld) 82.7 % High 47-70 [facility] Comment on above: Performed By: #### L 500.3400, L100.0100, L500.2500, L501.2450, L501.4021 ####[facility] [address] [place], [address] Nucleated RBC (Bld) [#/Vol] 0 10*3/uL Normal 0-5 [facility] Comment on above: Performed By: #### L 500.3400, L100.0100, L500.2500, L501.2450, L501.4021 ####[facility] [address] [place], [address] Platelet mean volume (Bld) [Entitic vol] 9.8 fL Normal 6.2-12.0 [facility] Comment on above: Performed By: #### L 500.3400, L100.0100, L500.2500, L501.2450, L501.4021 ####[facility] [address] [place], [address] Platelets (Bld) [#/Vol] 212 10*3/uL Normal 150-450 [facility] Comment on above: Performed By: #### L 500.3400, L100.0100, L500.2500, L501.2450, L501.4021 ####[facility] [address] [place], [address] RBC (Bld) [#/Vol] 4.45 10*6/uL Low 4.6-6.2 [facility] Comment on above: Performed By: #### L 500.3400, L100.0100, L500.2500, L501.2450, L501.4021 ####[facility] [address] [place], [address] RDW SD 48.8 fl High 35.1-43.9 [facility] Comment on above: Performed By: #### L 500.3400, L100.0100, L500.2500, L501.2450, L501.4021 ####[facility] [address] [place], [address] WBC (Bld) [#/Vol] 14.7 10*3/uL High 4.4-11.0 [facility] Comment on above: Performed By: #### L 500.3400, L100.0100, L500.2500, L501.2450, L501.4021 ####[facility] [address] [place], [place], [address] Chest 1 View (Portable)on Chest 1 View (Portable) Normal [facility] Emergency Department Summary on 04-22-2024 Emergency Department Summary Normal [facility] Extremity Lower without Cont raon 04-22-2024 Extremity Lower without Contra Normal [facility] H AND P Exam - Hospitaliston 04-22-2024 H&P Exam - Hospitalist Normal [facility] HIP, UNI W/ Pelvis 2-3 Views on 04-22-2024 HIP, UNI W/ Pelvis 2-3 Views Normal [facility] L499.0042on 04-22-2024 Trop T High Sen 18 ng/L Normal <=22 [facility] Comment on above: Performed By: #### L 499.0042 ####[facility] [address] [place], [address] L501.4021on 04-22-2024 Trop T High Sen 18 ng/L Normal <=22 [facility] Comment on above: Performed By: #### L 500.3400, L100.0100, L500.2500, L501.2450, L501.4021 ####[facility] [address] [place], [address] Lipaseon 04-22-2024 Lipase [Catalytic activity/Vol] 59 U/L Normal 13-75 [facility] Comment on above: Result Comment: Nagi nelson note:LIPASE revised reference range effective 22.New Lipase methodology. Expected to produce lower valuesthan the previous assay method.NEW Reference Range: 13 - 75 U/L Performed By: #### L 500.3400, L100.0100, L500.2500, L501.2450, L501.4021 ####[facility] [address] [place], [address] Liver Profileon 04-22-2024 Albumin [Mass/Vol] 4.2 g/dL Normal 3.4-4.8 [facility] Comment on above: Performed By: #### L 500.3400, L100.0100, L500.2500, L501.2450, L501.4021 ####[facility] [address] [place], [address] ALK PHOS 69 U/L Normal 40-129 [facility] Comment on above: Performed By: #### L 500.3400, L100.0100, L500.2500, L501.2450, L501.4021 ####[facility] [address] [place], [address] ALT [Catalytic activity/Vol] 29 U/L Normal <=46 [facility] Comment on above: Performed By: #### L 500.3400, L100.0100, L500.2500, L501.2450, L501.4021 ####[facility] [address] [place], [address] AST [Catalytic activity/Vol] 33 U/L Normal <=37 [facility] Comment on above: Performed By: #### L 500.3400, L100.0100, L500.2500, L501.2450, L501.4021 ####[facility] [address] [place], [address] Bilirubin [Mass/Vol] 0.56 mg/dL Normal 0.00-1.30 [facility] Comment on above: Performed By: #### L 500.3400, L100.0100, L500.2500, L501.2450, L501.4021 ####[facility] [address] [place], [address] Bilirubin.direct [Mass/Vol] 0.32 mg/dL High 0.00-0.30 [facility] Comment on above: Performed By: #### L 500.3400, L100.0100, L500.2500, L501.2450, L501.4021 ####[facility] [address] [place], [address] Globulin (S) [Mass/Vol] 2.9 g/dL Normal 2.2-4.2 [facility] Comment on above: Performed By: #### L 500.3400, L100.0100, L500.2500, L501.2450, L501.4021 ####[facility] [address] [place], [address] T PROT 7.1 g/dL Normal 5.9-8.4 [facility] Comment on above: Performed By: #### L 500.3400, L100.0100, L500.2500, L501.2450, L501.4021 ####[facility] [address] [place], [address] Lumbar Spine 2 or 3 Viewson 04-22-2024 Lumbar Spine 2 or 3 Views Normal [facility] Prothrombin Time w/INRon INR Coag (PPP) [Relative time] 0.9 {INR} Normal [facility] Comment on above: Performed By: #### L 300.3900 ####[facility] [address] [place], [address] PT Coag (PPP) [Time] 12.3 s Normal 11.7-14.9 [facility] Comment on above: Performed By: #### L 300.3900 ####[facility] [address] [place], [address] Spine Cervical without Contr ason 04-22-2024 Spine Cervical without Contras Normal [facility] CBC W/Diff, Automatedon 02-08 Absolute Lymph 0.78 X10 3/uL Low 0.83-4.51 [facility] Comment on above: Performed By: #### L 100.0100, L500.4050, L501.2450 ####[facility] [address] [place], [address] Absolute Neut 3.2 X10 3/uL Normal 2.0-7.7 [facility] Comment on above: Performed By: #### L 100.0100, L500.4050, L501.2450 ####[facility] [address] [place], [address] Basophils/100 WBC (Bld) 0.7 % Normal 0-1 [facility] Comment on above: Performed By: #### L 100.0100, L500.4050, L501.2450 ####[facility] [address] [place], [address] Eosinophils/100 WBC (Bld) 0.2 % Normal 0-5 [facility] Comment on above: Performed By: #### L 100.0100, L500.4050, L501.2450 ####[facility] [address] [place], [address] Erythrocyte distribution width (RBC) [Ratio] 13.7 % Normal 11.6-14.6 [facility] Comment on above: Performed By: #### L 100.0100, L500.4050, L501.2450 ####[facility] [address] [place], [address] Hematocrit (Bld) [Volume fraction] 44.9 % Normal 40-54 [facility] Comment on above: Performed By: #### L 100.0100, L500.4050, L501.2450 ####[facility] [address] [place], [address] Hemoglobin (Bld) [Mass/Vol] 14.9 g/dL Normal 13.0-16.5 [facility] Comment on above: Performed By: #### L 100.0100, L500.4050, L501.2450 ####[facility] [address] [place], [address] IG% 0.400 Normal 0.0-0.9 [facility] Comment on above: Result Comment: IG% - Immature Granulocytes (promyelocytes, myelocytes andmetamyelocytes) > 1% indicates that a LEFT SHIFT is Present. Performed By: #### L 100.0100, L500.4050, L501.2450 ####[facility] [address] [place], [address] Lymphocytes/100 WBC (Bld) 17.0 % Low 19-41 [facility] Comment on above: Performed By: #### L 100.0100, L500.4050, L501.2450 ####[facility] [address] [place], [address] MCH (RBC) [Entitic mass] 32.0 pg Normal 27.0-32.0 [facility] Comment on above: Performed By: #### L 100.0100, L500.4050, L501.2450 ####[facility] [address] [place], [address] MCHC (RBC) [Mass/Vol] 33.2 g/dL Normal 32-36 [facility] Comment on above: Performed By: #### L 100.0100, L500.4050, L501.2450 ####[facility] [address] [place], [address] MCV (RBC) [Entitic vol] 96.4 fL High 80-94 [facility] Comment on above: Performed By: #### L 100.0100, L500.4050, L501.2450 ####[facility] [address] [place], [address] Monocytes/100 WBC (Bld) 12.4 % High 0-10 [facility] Comment on above: Performed By: #### L 100.0100, L500.4050, L501.2450 ####[facility] [address] [place], [address] Neutrophils/100 WBC (Bld) 69.3 % Normal 47-70 [facility] Comment on above: Performed By: #### L 100.0100, L500.4050, L501.2450 ####[facility] [address] [place], [address] Nucleated RBC (Bld) [#/Vol] 0 10*3/uL Normal 0-5 [facility] Comment on above: Performed By: #### L 100.0100, L500.4050, L501.2450 ####[facility] [address] [place], [address] Platelet mean volume (Bld) [Entitic vol] 9.6 fL Normal 6.2-12.0 [facility] Comment on above: Performed By: #### L 100.0100, L500.4050, L501.2450 ####[facility] [address] [place], [address] Platelets (Bld) [#/Vol] 240 10*3/uL Normal 150-450 [facility] Comment on above: Performed By: #### L 100.0100, L500.4050, L501.2450 ####[facility] [address] [place], [address] RBC (Bld) [#/Vol] 4.66 10*6/uL Normal 4.6-6.2 [facility] Comment on above: Performed By: #### L 100.0100, L500.4050, L501.2450 ####[facility] [address] [place], [address] RDW SD 48.6 fl High 35.1-43.9 [facility] Comment on above: Performed By: #### L 100.0100, L500.4050, L501.2450 ####[facility] [address] [place], [address] WBC (Bld) [#/Vol] 4.6 10*3/uL Normal 4.4-11.0 [facility] Comment on above: Performed By: #### L 100.0100, L500.4050, L501.2450 ####[facility] [address] [place], [address] Comprehensive Metabolic Prof [facility] 03-07-2024 Albumin [Mass/Vol] 3.9 g/dL Normal 3.2-5.0 [facility] Comment on above: Performed By: #### L 100.0100, L500.4050, L501.2450 ####[facility] [address] [place], [address] Albumin/Globulin [Mass ratio] 0.9 {ratio} Normal 0.9-2.4 [facility] Comment on above: Performed By: #### L 100.0100, L500.4050, L501.2450 ####[facility] [address] [place], [address] ALK P 77 U/L Normal 45-117 [facility] Comment on above: Performed By: #### L 100.0100, L500.4050, L501.2450 ####[facility] [address] [place], [address] ALT [Catalytic activity/Vol] 56 U/L Normal 16-61 [facility] Comment on above: Performed By: #### L 100.0100, L500.4050, L501.2450 ####[facility] [address] [place], [address] AST [Catalytic activity/Vol] 67 U/L High 15-37 [facility] Comment on above: Performed By: #### L 100.0100, L500.4050, L501.2450 ####[facility] [address] [place], [address] Bilirubin [Mass/Vol] 1.10 mg/dL High 0.20-1.00 [facility] Comment on above: Result Comment: For patients on eltrombopag therapy, use of Dimension [place] TBIL is not recommended. Performed By: #### L 100.0100, L500.4050, L501.2450 ####[facility] [address] [place], [address] BUN/CRE 8.1 RATIO Low 10-20 [facility] Comment on above: Performed By: #### L 100.0100, L500.4050, L501.2450 ####[facility] [address] [place], [address] CA,Total 10.2 mg/dL High 8.5-10.1 [facility] Comment on above: Performed By: #### L 100.0100, L500.4050, L501.2450 ####[facility] [address] [place], [address] Chloride [Moles/Vol] 95 mmol/L Low 98-107 [facility] Comment on above: Performed By: #### L 100.0100, L500.4050, L501.2450 ####[facility] [address] [place], [address] CO2 [Moles/Vol] 34.0 mmol/L High 21.0-32.0 [facility] Comment on above: Performed By: #### L 100.0100, L500.4050, L501.2450 ####[facility] [address] [place], [address] Creatinine [Mass/Vol] 0.99 mg/dL Normal 0.70-1.30 [facility] Comment on above: Result Comment: The validity of the calculated GFR GFRAA in patients over70 years has not been determined. Clinical correlation isessential. Performed By: #### L 100.0100, L500.4050, L501.2450 ####[facility] [address] [place], [address] ECRCL 80.87 ml/min Normal [facility] Comment on above: Performed By: #### L 100.0100, L500.4050, L501.2450 ####[facility] [address] [place], [address] EST GFR - AA 94 mL/min Normal >60 [facility] Comment on above: Result Comment: Afri can Afghan GFR Calc Performed By: #### L 100.0100, L500.4050, L501.2450 ####[facility] [address] [place], [address] GAP 6 Normal 5-15 [facility] Comment on above: Performed By: #### L 100.0100, L500.4050, L501.2450 ####[facility] [address] [place], [address] GFR/1.73 sq M.predicted among non-blacks MDRD (S/P/Bld) [Vol rate/Area] 78 mL/min/{1.73_m2} Normal >60 [facility] Comment on above: Result Comment: Non- GFR Calc Performed By: #### L 100.0100, L500.4050, L501.2450 ####[facility] [address] [place], [address] Globulin (S) [Mass/Vol] 4.2 g/dL Normal 2.2-4.2 [facility] Comment on above: Performed By: #### L 100.0100, L500.4050, L501.2450 ####[facility] [address] [place], [address] Glucose [Mass/Vol] 101 mg/dL Normal 74-106 [facility] Comment on above: Result Comment: Fast ing Glucose result from 100 to 125 mg/dLsuggests IMPAIRED HOMEOSTASIS per A.D.A. criteria. Performed By: #### L 100.0100, L500.4050, L501.2450 ####[facility] [address] [place], [address] Potassium [Moles/Vol] 3.7 mmol/L Normal 3.5-5.1 [facility] Comment on above: Performed By: #### L 100.0100, L500.4050, L501.2450 ####[facility] [address] [place], [address] Sodium [Moles/Vol] 135 mmol/L Low 136-145 [facility] Comment on above: Performed By: #### L 100.0100, L500.4050, L501.2450 ####[facility] [address] [place], [address] T PROT 8.1 g/dL Normal 6.4-8.2 [facility] Comment on above: Performed By: #### L 100.0100, L500.4050, L501.2450 ####[facility] [address] [place], [address] Urea nitrogen [Mass/Vol] 8 mg/dL Normal 7-18 [facility] Comment on above: Performed By: #### L 100.0100, L500.4050, L501.2450 ####[facility] [address] [place], [address] Emergency Department Summary on 03-07-2024 Emergency Department Summary Normal [facility] Lipaseon 03-07-2024 Lipase [Catalytic activity/Vol] 58 U/L Normal 13-75 [facility] Comment on above: Result Comment: Nagi nelson note:LIPASE revised reference range effective 22.New Lipase methodology. Expected to produce lower valuesthan the previous assay method.NEW Reference Range: 13 - 75 U/L Performed By: #### L 100.0100, L500.4050, L501.2450 ####[facility] [address] [place], [address] CBC W/Diff, Automatedon 02-08 Absolute Lymph 1.18 X10 3/uL Normal 0.83-4.51 [facility] Comment on above: Performed By: #### L 100.0100 ####[facility] [address] [place], [address] Absolute Neut 2.0 X10 3/uL Normal 2.0-7.7 [facility] Comment on above: Performed By: #### L 100.0100 ####[facility] [address] [place], [address] Basophils/100 WBC (Bld) 1.2 % High 0-1 [facility] Comment on above: Performed By: #### L 100.0100 ####[facility] [address] [place], [address] Eosinophils/100 WBC (Bld) 2.1 % Normal 0-5 [facility] Comment on above: Performed By: #### L 100.0100 ####[facility] [address] [place], [address] Erythrocyte distribution width (RBC) [Ratio] 13.8 % Normal 11.6-14.6 [facility] Comment on above: Performed By: #### L 100.0100 ####[facility] [address] [place], [address] Hematocrit (Bld) [Volume fraction] 42.2 % Normal 40-54 [facility] Comment on above: Performed By: #### L 100.0100 ####[facility] [address] [place], [address] Hemoglobin (Bld) [Mass/Vol] 13.8 g/dL Normal 13.0-16.5 [facility] Comment on above: Performed By: #### L 100.0100 ####[facility] [address] [place], [address] IG% 0.000 Normal 0.0-0.9 [facility] Comment on above: Result Comment: IG% - Immature Granulocytes (promyelocytes, myelocytes andmetamyelocytes) > 1% indicates that a LEFT SHIFT is Present. Performed By: #### L 100.0100 ####[facility] [address] [place], [address] Lymphocytes/100 WBC (Bld) 28.2 % Normal 19-41 [facility] Comment on above: Performed By: #### L 100.0100 ####[facility] [address] [place], [address] MCH (RBC) [Entitic mass] 32.9 pg High 27.0-32.0 [facility] Comment on above: Performed By: #### L 100.0100 ####[facility] [address] [place], [address] MCHC (RBC) [Mass/Vol] 32.7 g/dL Normal 32-36 [facility] Comment on above: Performed By: #### L 100.0100 ####[facility] [address] [place], [address] MCV (RBC) [Entitic vol] 100.5 fL High 80-94 [facility] Comment on above: Performed By: #### L 100.0100 ####[facility] [address] [place], [address] Monocytes/100 WBC (Bld) 20.8 % High 0-10 [facility] Comment on above: Performed By: #### L 100.0100 ####[facility] [address] [place], [address] Neutrophils/100 WBC (Bld) 47.7 % Normal 47-70 [facility] Comment on above: Performed By: #### L 100.0100 ####[facility] [address] [place], [address] Nucleated RBC (Bld) [#/Vol] 0 10*3/uL Normal 0-5 [facility] Comment on above: Performed By: #### L 100.0100 ####[facility] [address] [place], [address] Platelet mean volume (Bld) [Entitic vol] 10.5 fL Normal 6.2-12.0 [facility] Comment on above: Performed By: #### L 100.0100 ####[facility] [address] [place], [address] Platelets (Bld) [#/Vol] 199 10*3/uL Normal 150-450 [facility] Comment on above: Performed By: #### L 100.0100 ####[facility] [address] [place], [address] RBC (Bld) [#/Vol] 4.20 10*6/uL Low 4.6-6.2 [facility] Comment on above: Performed By: #### L 100.0100 ####[facility] [address] [place], [address] RDW SD 50.9 fl High 35.1-43.9 [facility] Comment on above: Performed By: #### L 100.0100 ####[facility] [address] [place], [address] WBC (Bld) [#/Vol] 4.2 10*3/uL Low 4.4-11.0 [facility] Comment on above: Performed By: #### L 100.0100 ####[facility] [address] [place], [address] Basic Metabolic Profile (BMP )on 02-20-2024 BUN/CRE 8.8 RATIO Low 10-20 [facility] Comment on above: Performed By: #### L 100.0100, L500.2500 ####[facility] [address] [place], [address] CA,Total 8.8 mg/dL Normal 8.5-10.1 [facility] Comment on above: Performed By: #### L 100.0100, L500.2500 ####[facility] [address] [place], [address] Chloride [Moles/Vol] 99 mmol/L Normal 98-107 [facility] Comment on above: Performed By: #### L 100.0100, L500.2500 ####[facility] [address] [place], [address] CO2 [Moles/Vol] 28.0 mmol/L Normal 21.0-32.0 [facility] Comment on above: Performed By: #### L 100.0100, L500.2500 ####[facility] [address] [place], [address] Creatinine [Mass/Vol] 0.80 mg/dL Normal 0.70-1.30 [facility] Comment on above: Result Comment: The validity of the calculated GFR GFRAA in patients over70 years has not been determined. Clinical correlation isessential. Performed By: #### L 100.0100, L500.2500 ####[facility] [address] [place], [address] ECRCL 103.48 ml/min Normal [facility] Comment on above: Performed By: #### L 100.0100, L500.2500 ####[facility] [address] [place], [address] EST GFR - AA 122 mL/min Normal >60 [facility] Comment on above: Result Comment: Afri can Afghan GFR Calc Performed By: #### L 100.0100, L500.2500 ####[facility] [address] [place], [address] GAP 11 Normal 5-15 [facility] Comment on above: Performed By: #### L 100.0100, L500.2500 ####[facility] [address] [place], [address] GFR/1.73 sq M.predicted among non-blacks MDRD (S/P/Bld) [Vol rate/Area] 101 mL/min/{1.73_m2} Normal >60 [facility] Comment on above: Result Comment: Non- GFR Calc Performed By: #### L 100.0100, L500.2500 ####[facility] [address] [place], [address] Glucose [Mass/Vol] 80 mg/dL Normal 74-106 [facility] Comment on above: Performed By: #### L 100.0100, L500.2500 ####[facility] [address] [place], [address] Potassium [Moles/Vol] 3.8 mmol/L Normal 3.5-5.1 [facility] Comment on above: Performed By: #### L 100.0100, L500.2500 ####[facility] [address] [place], [address] Sodium [Moles/Vol] 138 mmol/L Normal 136-145 [facility] Comment on above: Performed By: #### L 100.0100, L500.2500 ####[facility] [address] [place], [address] Urea nitrogen [Mass/Vol] 7 mg/dL Normal 7-18 [facility] Comment on above: Performed By: #### L 100.0100, L500.2500 ####[facility] [address] [place], [address] CBC W/Diff, Automatedon 02-07 Absolute Lymph 1.34 X10 3/uL Normal 0.83-4.51 [facility] Comment on above: Performed By: #### L 100.0100, L500.2500 ####[facility] [address] [place], [address] Absolute Neut 3.0 X10 3/uL Normal 2.0-7.7 [facility] Comment on above: Performed By: #### L 100.0100, L500.2500 ####[facility] [address] [place], [address] Basophils/100 WBC (Bld) 0.4 % Normal 0-1 [facility] Comment on above: Performed By: #### L 100.0100, L500.2500 ####[facility] [address] [place], [address] Eosinophils/100 WBC (Bld) 2.0 % Normal 0-5 [facility] Comment on above: Performed By: #### L 100.0100, L500.2500 ####[facility] [address] [place], [address] Erythrocyte distribution width (RBC) [Ratio] 14.2 % Normal 11.6-14.6 [facility] Comment on above: Performed By: #### L 100.0100, L500.2500 ####[facility] [address] [place], [address] Hematocrit (Bld) [Volume fraction] 41.0 % Normal 40-54 [facility] Comment on above: Performed By: #### L 100.0100, L500.2500 ####[facility] [address] [place], [address] Hemoglobin (Bld) [Mass/Vol] 13.7 g/dL Normal 13.0-16.5 [facility] Comment on above: Performed By: #### L 100.0100, L500.2500 ####[facility] [address] [place], [address] IG% 0.400 Normal 0.0-0.9 [facility] Comment on above: Result Comment: IG% - Immature Granulocytes (promyelocytes, myelocytes andmetamyelocytes) > 1% indicates that a LEFT SHIFT is Present. Performed By: #### L 100.0100, L500.2500 ####[facility] [address] [place], [address] Lymphocytes/100 WBC (Bld) 26.2 % Normal 19-41 [facility] Comment on above: Performed By: #### L 100.0100, L500.2500 ####[facility] [address] [place], [address] MCH (RBC) [Entitic mass] 32.9 pg High 27.0-32.0 [facility] Comment on above: Performed By: #### L 100.0100, L500.2500 ####[facility] [address] [place], [address] MCHC (RBC) [Mass/Vol] 33.4 g/dL Normal 32-36 [facility] Comment on above: Performed By: #### L 100.0100, L500.2500 ####[facility] [address] [place], [address] MCV (RBC) [Entitic vol] 98.6 fL High 80-94 [facility] Comment on above: Performed By: #### L 100.0100, L500.2500 ####[facility] [address] [place], [address] Monocytes/100 WBC (Bld) 12.3 % High 0-10 [facility] Comment on above: Performed By: #### L 100.0100, L500.2500 ####[facility] [address] [place], [address] Neutrophils/100 WBC (Bld) 58.7 % Normal 47-70 [facility] Comment on above: Performed By: #### L 100.0100, L500.2500 ####[facility] [address] [place], [address] Nucleated RBC (Bld) [#/Vol] 0 10*3/uL Normal 0-5 [facility] Comment on above: Performed By: #### L 100.0100, L500.2500 ####[facility] [address] [place], [address] Platelet mean volume (Bld) [Entitic vol] 9.4 fL Normal 6.2-12.0 [facility] Comment on above: Performed By: #### L 100.0100, L500.2500 ####[facility] [address] [place], [address] Platelets (Bld) [#/Vol] 107 10*3/uL Low 150-450 [facility] Comment on above: Performed By: #### L 100.0100, L500.2500 ####[facility] [address] [place], [address] RBC (Bld) [#/Vol] 4.16 10*6/uL Low 4.6-6.2 [facility] Comment on above: Performed By: #### L 100.0100, L500.2500 ####[facility] [address] [place], [address] RDW SD 50.7 fl High 35.1-43.9 [facility] Comment on above: Performed By: #### L 100.0100, L500.2500 ####[facility] [address] [place], [address] WBC (Bld) [#/Vol] 5.1 10*3/uL Normal 4.4-11.0 [facility] Comment on above: Performed By: #### L 100.0100, L500.2500 ####[facility] [address] [place], [address] Emergency Department Summary on 02-20-2024 Emergency Department Summary Normal [facility] Plastic Surgery Visit Report on 02-03-2024 Plastic Surgery Visit Report Normal [facility] Plastic Surgery Visit Report on 01-27-2024 Plastic Surgery Visit Report Normal [facility] Surgery Specimen Level Ibis 01-27-2024 Surgery Specimen Level IV Normal [facility] Comment on above: Performed By: #### P SUIV ####[facility] [address] [place], [address] Plastic Surgery Visit Report on 12-30-2023 Plastic Surgery Visit Report Normal [facility] 12 Lead EKGon 12-18-2023 12 Lead EKG Normal [facility] CBC W/Diff, Automatedon 12-08 Absolute Lymph 2.50 X10 3/uL Normal 0.83-4.51 [facility] Comment on above: Performed By: #### L 501.4020, L501.2450, L500.4050, L100.0100 ####[facility] [address] [place], [address] Absolute Neut 3.5 X10 3/uL Normal 2.0-7.7 [facility] Comment on above: Performed By: #### L 501.4020, L501.2450, L500.4050, L100.0100 ####[facility] [address] [place], [address] Basophils/100 WBC (Bld) 0.6 % Normal 0-1 [facility] Comment on above: Performed By: #### L 501.4020, L501.2450, L500.4050, L100.0100 ####[facility] [address] [place], [address] Eosinophils/100 WBC (Bld) 0.7 % Normal 0-5 [facility] Comment on above: Performed By: #### L 501.4020, L501.2450, L500.4050, L100.0100 ####[facility] [address] [place], [address] Erythrocyte distribution width (RBC) [Ratio] 13.4 % Normal 11.6-14.6 [facility] Comment on above: Performed By: #### L 501.4020, L501.2450, L500.4050, L100.0100 ####[facility] [address] [place], [address] Hematocrit (Bld) [Volume fraction] 43.9 % Normal 40-54 [facility] Comment on above: Performed By: #### L 501.4020, L501.2450, L500.4050, L100.0100 ####[facility] [address] [place], [address] Hemoglobin (Bld) [Mass/Vol] 15.1 g/dL Normal 13.0-16.5 [facility] Comment on above: Performed By: #### L 501.4020, L501.2450, L500.4050, L100.0100 ####[facility] [address] [place], [address] IG% 0.300 Normal 0.0-0.9 [facility] Comment on above: Result Comment: IG% - Immature Granulocytes (promyelocytes, myelocytes andmetamyelocytes) > 1% indicates that a LEFT SHIFT is Present. Performed By: #### L 501.4020, L501.2450, L500.4050, L100.0100 ####[facility] [address] [place], [address] Lymphocytes/100 WBC (Bld) 36.9 % Normal 19-41 [facility] Comment on above: Performed By: #### L 501.4020, L501.2450, L500.4050, L100.0100 ####[facility] [address] [place], [address] MCH (RBC) [Entitic mass] 33.8 pg High 27.0-32.0 [facility] Comment on above: Performed By: #### L 501.4020, L501.2450, L500.4050, L100.0100 ####[facility] [address] [place], [address] MCHC (RBC) [Mass/Vol] 34.4 g/dL Normal 32-36 [facility] Comment on above: Performed By: #### L 501.4020, L501.2450, L500.4050, L100.0100 ####[facility] [address] [place], [address] MCV (RBC) [Entitic vol] 98.2 fL High 80-94 [facility] Comment on above: Performed By: #### L 501.4020, L501.2450, L500.4050, L100.0100 ####[facility] [address] [place], [address] Monocytes/100 WBC (Bld) 9.7 % Normal 0-10 [facility] Comment on above: Performed By: #### L 501.4020, L501.2450, L500.4050, L100.0100 ####[facility] [address] [place], [address] Neutrophils/100 WBC (Bld) 51.8 % Normal 47-70 [facility] Comment on above: Performed By: #### L 501.4020, L501.2450, L500.4050, L100.0100 ####[facility] [address] [place], [address] Nucleated RBC (Bld) [#/Vol] 0 10*3/uL Normal 0-5 [facility] Comment on above: Performed By: #### L 501.4020, L501.2450, L500.4050, L100.0100 ####[facility] [address] [place], [address] Platelet mean volume (Bld) [Entitic vol] 9.7 fL Normal 6.2-12.0 [facility] Comment on above: Performed By: #### L 501.4020, L501.2450, L500.4050, L100.0100 ####[facility] [address] [place], [address] Platelets (Bld) [#/Vol] 235 10*3/uL Normal 150-450 [facility] Comment on above: Performed By: #### L 501.4020, L501.2450, L500.4050, L100.0100 ####[facility] [address] [place], [address] RBC (Bld) [#/Vol] 4.47 10*6/uL Low 4.6-6.2 [facility] Comment on above: Performed By: #### L 501.4020, L501.2450, L500.4050, L100.0100 ####[facility] [address] [place], [address] RDW SD 49.0 fl High 35.1-43.9 [facility] Comment on above: Performed By: #### L 501.4020, L501.2450, L500.4050, L100.0100 ####[facility] [address] [place], [address] WBC (Bld) [#/Vol] 6.8 10*3/uL Normal 4.4-11.0 [facility] Comment on above: Performed By: #### L 501.4020, L501.2450, L500.4050, L100.0100 ####[facility] [address] [place], [address] Comprehensive Metabolic Prof ilon 12-18-2023 Albumin [Mass/Vol] 3.6 g/dL Normal 3.2-5.0 [facility] Comment on above: Order Comment: 'TROP ' Serial specimen #1, #2 or #3: 1 Performed By: #### L 501.4020, L501.2450, L500.4050, L100.0100 ####[facility] [address] [place], [address] Albumin/Globulin [Mass ratio] 0.9 {ratio} Normal 0.9-2.4 [facility] Comment on above: Order Comment: 'TROP ' Serial specimen #1, #2 or #3: 1 Performed By: #### L 501.4020, L501.2450, L500.4050, L100.0100 ####[facility] [address] [place], [address] ALK P 74 U/L Normal 45-117 [facility] Comment on above: Order Comment: 'TROP ' Serial specimen #1, #2 or #3: 1 Performed By: #### L 501.4020, L501.2450, L500.4050, L100.0100 ####[facility] [address] [place], [address] ALT [Catalytic activity/Vol] 29 U/L Normal 16-61 [facility] Comment on above: Order Comment: 'TROP ' Serial specimen #1, #2 or #3: 1 Performed By: #### L 501.4020, L501.2450, L500.4050, L100.0100 ####[facility] [address] [place], [address] AST [Catalytic activity/Vol] 41 U/L High 15-37 [facility] Comment on above: Order Comment: 'TROP ' Serial specimen #1, #2 or #3: 1 Performed By: #### L 501.4020, L501.2450, L500.4050, L100.0100 ####[facility] [address] [place], [address] Bilirubin [Mass/Vol] 0.30 mg/dL Normal 0.20-1.00 [facility] Comment on above: Order Comment: 'TROP ' Serial specimen #1, #2 or #3: 1 Result Comment: For patients on eltrombopag therapy, use of Dimension [place] TBIL is not recommended. Performed By: #### L 501.4020, L501.2450, L500.4050, L100.0100 ####[facility] [address] [place], [address] BUN/CRE 13.9 RATIO Normal 10-20 [facility] Comment on above: Order Comment: 'TROP ' Serial specimen #1, #2 or #3: 1 Performed By: #### L 501.4020, L501.2450, L500.4050, L100.0100 ####[facility] [address] [place], [address] CA,Total 9.2 mg/dL Normal 8.5-10.1 [facility] Comment on above: Order Comment: 'TROP ' Serial specimen #1, #2 or #3: 1 Performed By: #### L 501.4020, L501.2450, L500.4050, L100.0100 ####[facility] [address] [place], [address] Chloride [Moles/Vol] 105 mmol/L Normal 98-107 [facility] Comment on above: Order Comment: 'TROP ' Serial specimen #1, #2 or #3: 1 Performed By: #### L 501.4020, L501.2450, L500.4050, L100.0100 ####[facility] [address] [place], [address] CO2 [Moles/Vol] 25.0 mmol/L Normal 21.0-32.0 [facility] Comment on above: Order Comment: 'TROP ' Serial specimen #1, #2 or #3: 1 Performed By: #### L 501.4020, L501.2450, L500.4050, L100.0100 ####[facility] [address] [place], [address] Creatinine [Mass/Vol] 1.08 mg/dL Normal 0.70-1.30 [facility] Comment on above: Order Comment: 'TROP ' Serial specimen #1, #2 or #3: 1 Result Comment: The validity of the calculated GFR GFRAA in patients over70 years has not been determined. Clinical correlation isessential. Performed By: #### L 501.4020, L501.2450, L500.4050, L100.0100 ####[facility] [address] [place], [address] ECRCL 75.77 ml/min Normal [facility] Comment on above: Order Comment: 'TROP ' Serial specimen #1, #2 or #3: 1 Performed By: #### L 501.4020, L501.2450, L500.4050, L100.0100 ####[facility] [address] [place], [address] EST GFR - AA 86 mL/min Normal >60 [facility] Comment on above: Order Comment: 'TROP ' Serial specimen #1, #2 or #3: 1 Result Comment: Afri can Afghan GFR Calc Performed By: #### L 501.4020, L501.2450, L500.4050, L100.0100 ####[facility] [address] [place], [address] GAP 8 Normal 5-15 [facility] Comment on above: Order Comment: 'TROP ' Serial specimen #1, #2 or #3: 1 Performed By: #### L 501.4020, L501.2450, L500.4050, L100.0100 ####[facility] [address] [place], [address] GFR/1.73 sq M.predicted among non-blacks MDRD (S/P/Bld) [Vol rate/Area] 71 mL/min/{1.73_m2} Normal >60 [facility] Comment on above: Order Comment: 'TROP ' Serial specimen #1, #2 or #3: 1 Result Comment: Non- GFR Calc Performed By: #### L 501.4020, L501.2450, L500.4050, L100.0100 ####[facility] [address] [place], [address] Globulin (S) [Mass/Vol] 3.9 g/dL Normal 2.2-4.2 [facility] Comment on above: Order Comment: 'TROP ' Serial specimen #1, #2 or #3: 1 Performed By: #### L 501.4020, L501.2450, L500.4050, L100.0100 ####[facility] [address] [place], [address] Glucose [Mass/Vol] 107 mg/dL High 74-106 [facility] Comment on above: Order Comment: 'TROP ' Serial specimen #1, #2 or #3: 1 Result Comment: Fast ing Glucose result from 100 to 125 mg/dLsuggests IMPAIRED HOMEOSTASIS per A.D.A. criteria. Performed By: #### L 501.4020, L501.2450, L500.4050, L100.0100 ####[facility] [address] [place], [address] Potassium [Moles/Vol] 4.2 mmol/L Normal 3.5-5.1 [facility] Comment on above: Order Comment: 'TROP ' Serial specimen #1, #2 or #3: 1 Performed By: #### L 501.4020, L501.2450, L500.4050, L100.0100 ####[facility] [address] [place], [address] Sodium [Moles/Vol] 138 mmol/L Normal 136-145 [facility] Comment on above: Order Comment: 'TROP ' Serial specimen #1, #2 or #3: 1 Performed By: #### L 501.4020, L501.2450, L500.4050, L100.0100 ####[facility] [address] [place], [address] T PROT 7.5 g/dL Normal 6.4-8.2 [facility] Comment on above: Order Comment: 'TROP ' Serial specimen #1, #2 or #3: 1 Performed By: #### L 501.4020, L501.2450, L500.4050, L100.0100 ####[facility] [address] [place], [address] Urea nitrogen [Mass/Vol] 15 mg/dL Normal 7-18 [facility] Comment on above: Order Comment: 'TROP ' Serial specimen #1, #2 or #3: 1 Performed By: #### L 501.4020, L501.2450, L500.4050, L100.0100 ####[facility] [address] [place], [address] Emergency Department Summary on 12-18-2023 Emergency Department Summary Normal [facility] L501.4020on 12-18-2023 TROPONIN-I HS 14 pg/mL Normal 3.0-78.0 [facility] Comment on above: Order Comment: 'TROP ' Serial specimen #1, #2 or #3: 1 Result Comment: Plea se Note: New Test Units and Gender Specific Reference Ranges. For more information see Policy Stat Procedure [place] High Sensitivity Troponin (TNIH) and attachments. Performed By: #### L 501.4020, L501.2450, L500.4050, L100.0100 ####[facility] [address] [place], [address] Lipaseon 12-18-2023 Lipase [Catalytic activity/Vol] 58 U/L Normal 13-75 [facility] Comment on above: Order Comment: 'TROP ' Serial specimen #1, #2 or #3: 1 Result Comment: Plea se note:LIPASE revised reference range effective 22.New Lipase methodology. Expected to produce lower valuesthan the previous assay method.NEW Reference Range: 13 - 75 U/L Performed By: #### L 501.4020, L501.2450, L500.4050, L100.0100 ####[facility] [address] [place], [address] Urinalysis, Completeon 12-17 BACTERIA Normal None Seen [facility] Comment on above: Order Comment: CLEAN CATCH Result Comment: PT D ISCHARGED Performed By: #### L 400.0001 ####[facility] [address] [place], [address] BILIRUBIN URINE Normal Negative [facility] Comment on above: Order Comment: CLEAN CATCH Result Comment: PT D ISCHARGED Performed By: #### L 400.0001 ####[facility] [address] [place], [address] Clarity (U) Normal Clear [facility] Comment on above: Order Comment: CLEAN CATCH Result Comment: PT D ISCHARGED Performed By: #### L 400.0001 ####[facility] [address] [place], [address] Color (U) Normal Yellow [facility] Comment on above: Order Comment: CLEAN CATCH Result Comment: PT D ISCHARGED Performed By: #### L 400.0001 ####[facility] [address] [place], [address] EPI,SQUAMOUS Normal 0-5 [facility] Comment on above: Order Comment: CLEAN CATCH Result Comment: PT D ISCHARGED Performed By: #### L 400.0001 ####[facility] [address] [place], [address] GLUCOSE, UR Normal Normal [facility] Comment on above: Order Comment: CLEAN CATCH Result Comment: PT D ISCHARGED Performed By: #### L 400.0001 ####[facility] [address] [place], [address] KETONE UR Normal Negative [facility] Comment on above: Order Comment: CLEAN CATCH Result Comment: PT D ISCHARGED Performed By: #### L 400.0001 ####[facility] [address] [place], [address] LEUK ESTERASE Normal Negative [facility] Comment on above: Order Comment: CLEAN CATCH Result Comment: PT D ISCHARGED Performed By: #### L 400.0001 ####[facility] [address] [place], [address] Mucus Ql (Urine sed) Normal [facility] Comment on above: Order Comment: CLEAN CATCH Result Comment: PT D ISCHARGED Performed By: #### L 400.0001 ####[facility] [address] [place], [address] Nitrite Ql (U) Normal Negative [facility] Comment on above: Order Comment: CLEAN CATCH Result Comment: PT D ISCHARGED Performed By: #### L 400.0001 ####[facility] [address] [place], [address] OCCULT BLOOD-UR Normal Negative [facility] Comment on above: Order Comment: CLEAN CATCH Result Comment: PT D ISCHARGED Performed By: #### L 400.0001 ####[facility] [address] [place], [address] pH UR Normal 5.0 - 8.0 [facility] Comment on above: Order Comment: CLEAN CATCH Result Comment: PT D ISCHARGED Performed By: #### L 400.0001 ####[facility] [address] [place], [address] PROT DIPSTX Normal Negative [facility] Comment on above: Order Comment: CLEAN CATCH Result Comment: PT D ISCHARGED Performed By: #### L 400.0001 ####[facility] [address] [facility] [address] RBC Normal 0-5 [facility] Comment on above: Order Comment: CLEAN CATCH Result Comment: PT D ISCHARGED Performed By: #### L 400.0001 ####[facility] [address] [place], [address] SP.GR. DIPSTX Normal 1.002-1.030 [facility] Comment on above: Order Comment: CLEAN CATCH Result Comment: PT D ISCHARGED Performed By: #### L 400.0001 ####[facility] [address] [place], [address] UR Preservative Normal [facility] Comment on above: Order Comment: CLEAN CATCH Result Comment: PT D ISCHARGED Performed By: #### L 400.0001 ####[facility] [address] [facility] [address] UROBILI Normal Normal [facility] Comment on above: Order Comment: CLEAN CATCH Result Comment: PT D ISCHARGED Performed By: #### L 400.0001 ####[facility] [address] [place], [address] WBC Normal 0-5 [facility] Comment on above: Order Comment: CLEAN CATCH Result Comment: PT D ISCHARGED Performed By: #### L 400.0001 ####[facility] [address] [place], [address] Lipaseon 12-09-2023 Lipase [Catalytic activity/Vol] 58 U/L Normal 13-75 [facility] Comment on above: Result Comment: Nagi nelson note:LIPASE revised reference range effective 22.New Lipase methodology. Expected to produce lower valuesthan the previous assay method.NEW Reference Range: 13 - 75 U/L Performed By: #### L 501.2450, L500.3400 ####[facility] [address] [place], [address] Liver Profileon 12-09-2023 Albumin [Mass/Vol] 3.5 g/dL Normal 3.2-5.0 [facility] Comment on above: Performed By: #### L 501.2450, L500.3400 ####[facility] [address] [place], [address] ALK P 70 U/L Normal 45-117 [facility] Comment on above: Performed By: #### L 501.2450, L500.3400 ####[facility] [address] [place], [address] ALT [Catalytic activity/Vol] 35 U/L Normal 16-61 [facility] Comment on above: Performed By: #### L 501.2450, L500.3400 ####[facility] [address] [place], [address] AST [Catalytic activity/Vol] 31 U/L Normal 15-37 [facility] Comment on above: Performed By: #### L 501.2450, L500.3400 ####[facility] [address] [place], [address] Bilirubin [Mass/Vol] 0.70 mg/dL Normal 0.20-1.00 [facility] Comment on above: Result Comment: For patients on eltrombopag therapy, use of Dimension [place] TBIL is not recommended. Performed By: #### L 501.2450, L500.3400 ####[facility] [address] [place], [address] Bilirubin.direct [Mass/Vol] 0.25 mg/dL Normal 0.00-0.30 [facility] Comment on above: Performed By: #### L 501.2450, L500.3400 ####[facility] [address] [place], [address] Globulin (S) [Mass/Vol] 4.0 g/dL Normal 2.2-4.2 [facility] Comment on above: Performed By: #### L 501.2450, L500.3400 ####[facility] [address] [place], [address] T PROT 7.5 g/dL Normal 6.4-8.2 [facility] Comment on above: Performed By: #### L 501.2450, L500.3400 ####[facility] [address] [place], [address] Surgery Specimen Level Ibis 12-09-2023 Surgery Specimen Level IV Normal [facility] Comment on above: Performed By: #### P SUIV ####[facility] [address] [place], [address] Miscellaneous Lab Procedureo n 11-09-2023 [facility] LAB TEST . Normal [facility] Comment on above: Order Comment: STOOL CULTURE [id number] CULTURE [id number] Result Comment: Salm onella/Shigella Screen Final Report No Salmonella or Shigella recovered.Campylobacter Culture Final Report No Campylobacter species isolatedE coli Shiga Toxin EIA Final Report Negative TESTING PERFORMED AT [facility]. ORIGINAL REPORT ON FILE IN LAB CONTAINS ADDITIONAL TEST SITE INFORMATION. ____ Performed By: #### M 100.7900, M600.5000, L801.1541 ####[facility] [address] [place], [address] Ova and Parasites 8623on OP Normal [facility] Comment on above: Performed By: #### M 100.7900, M600.5000, L801.1541 ####[facility] [address] [place], [address] Abdomen/Pelvis WITH Contrast on 11-03-2023 Abdomen/Pelvis WITH Contrast Normal [facility] CREATININE FINGERSTICKon CREATININE WB < 1.0 Normal 0.70-1.30 [facility] Comment on above: Performed By: #### L 9100.0200 ####[facility] [address] [place], [address] EGFR WB > 60.0000 Normal >60 [facility] Comment on above: Performed By: #### L [id number] ####[facility] [address] [place], [address] Stool Occult Blood iFOBon STOB Negative Normal [facility] Comment on above: Performed By: #### M 100.7900, M600.5000, L801.1541 ####[facility] [address] [place], [address] PSA,Total - Annual Screenon 09-17-2024 PSA,TOT SCREEN 0.83 ng/mL Normal 0.00-4.00 [facility] Comment on above: Result Comment: This test was performed using the TPSA assay method for [employer] chemistry system. Values obtained with differentassay methods cannot be used interchangably.When changing PSA assays in the course of monitoring apatient, additional sequential testing should be carriedout to confirm baseline values. Performed By: #### L 501.9910 ####[facility] [address] [place], [address] PROGRESSon 04-01-2018 Protein mass conc HNO ID: [id number] Author: Ki Galaviz Service: (none) Author Type: Physician Type: Progress Notes Filed: 04/01/2018 9:54 AM Note Text: OPERATIVE NOTATION FOR [facility] SURGICAL PROCEDURE. March 17, 2018 Brian Segura 1950 [id number] male PROCEDURE: EGD WITH BIOPSY - [id number] SURGEON: Baljit Galaviz M.D. FACS GARDE MANAGER: None DEPT: WQ PROVIDER: [id number] Galaviz MD POS: [id number] DIAGNOSIS: (K92.0) Hematemesis, presence of nausea not [...] Clean Contaminated Operative note dictated in the [facility] dictation system. Ki Galaviz MD [facility] Encounters Encounter Date Encounter Type Care Provider Facility Start: 10-01-2024 End: 10-01-2024 Emergency department patient visit [facility] Facility:[facility] Start: 07-25-2024 End: 07-25-2024 Emergency department patient visit [facility] Facility:[facility] Start: 07-14-2024 End: 07-14-2024 Emergency department patient visit [facility] Facility:[facility] Start: 07-10-2024 End: 07-10-2024 ambulatory [facility] Facility:[facility] Start: 07-05-2024 End: 07-05-2024 ambulatory Alfred Bailey Facility:[facility] Start: 06-21-2024 End: 06-21-2024 ambulatory Alfred Bailey Facility:[facility] Start: 06-07-2024 End: 06-07-2024 Emergency department patient visit Alfred Bailey Facility:[facility] Start: 05-28-2024 End: 05-28-2024 Emergency department patient visit Alfred Bailey Facility:[facility] Start: 05-26-2024 End: 05-26-2024 Emergency department patient visit Alfred Bailey Facility:[facility] Start: 05-21-2024 ambulatory Alfred Lynn Facility: [facility] Start: 04-30-2024 ambulatory Alfred Bailey Facility: [facility] Start: 04-22-2024 End: 04-27-2024 ambulatory Alfred Bailey Facility:[facility] Start: 03-07-2024 End: 03-07-2024 Emergency department patient visit Alfrde Bailey Facility:[facility] Start: 02-29-2024 End: 02-29-2024 ambulatory Alfred Bailey Facility:[facility] Start: 02-20-2024 End: 02-20-2024 Emergency department patient visit Alfred Bailey Facility:[facility] Start: 02-03-2024 End: 02-03-2024 ambulatory Alfred Bailey Facility:[facility] Start: 01-27-2024 End: 01-27-2024 ambulatory Alfred Bailey Facility:[facility] Start: 01-27-2024 End: 01-27-2024 ambulatory Alfred Bailey Facility:[facility] Start: 12-30-2023 End: 12-30-2023 ambulatory Alfred Bailey Facility:[facility] Start: 12-18-2023 End: 12-19-2023 Emergency department patient visit Alfred Quintanaman Facility:[facility] Start: 12-09-2023 End: 12-09-2023 ambulatory Alfred Lynn Facility:[facility] Start: 11-03-2023 End: 11-03-2023 ambulatory Alfred Bailey Facility:[facility] Start: 10-28-2023 End: 10-28-2023 ambulatory Alfred Bailey Facility:[facility] Start: 10-25-2023 End: 10-25-2023 ambulatory Annie Bouse Facility:[facility] Start: 04-13-2023 End: 04-14-[address] WILLIE BLANK MD Facility: Start: 04-13-2023 End: 04-13-[address] WILLIE BLANK MD [facility] Procedures Date Procedure Procedure Detail Performing Clinician Start: 03-24-[address] WILLIE BLANK MD Arthroscopy knee med gnostic w/wo synovial bx spx DR WILLIE BLANK MD Comment on above: right Arthroscopy of knee DR WILLIE BLANK MD Entire knee region ( body structure) DR WILLIE BLANK MD Comment on above: arthroscopic Esophagogastroduodenoscopy D R WILLIE BLANK MD Tonsillectomy DR WILLIE BLANK MD Immunizations Immunization Date Immunization Notes Care Provider Fa cility 07-10-2013 pneumococcal polysaccharide vaccine, [address] WILLIE BLANK MD [facility] Payers Date Payer Category Payer Self-pay 2023 Unknown [id number] 1950 Unknown [id number] 2.16.8 40.1.880256.3.579.2.627 Unknown [id number] 2.16.8 40.1.746962.3.579.2.462 Unknown [id number] 2.16.8 40.1.409117.3.579.2.462 Unknown [id number] 2.16.8 40.1.794763.3.579.2.462 Unknown [id number] 2.16.8 40.1.053797.3.579.2.462 Unknown [id number] 2.16.8 40.1.394048.3.579.2.462 Unknown [id number] 2.16.8 40.1.305605.3.579.2.462 Unknown [id number] 2.16.8 40.1.343052.3.579.2.462 Unknown [id number] 2.16.8 40.1.786841.3.579.2.462 Unknown [id number] 2.16.8 40.1.428252.3.579.2.462 Unknown [id number] 2.16.8 40.1.954583.3.579.2.462 Unknown [id number] 2.16.8 40.1.378424.3.579.2.462 Unknown [id number] 2.16.8 40.1.312216.3.579.2.462 Unknown [id number] 2.16.8 40.1.482846.3.579.2.462 Unknown [id number] 2.16.8 40.1.957375.3.579.2.462 Unknown [id number] 2.16.8 40.1.896034.3.579.2.462 Unknown [id number] 2.16.8 40.1.915155.3.579.2.462 Unknown [id number] 2.16.8 40.1.928651.3.579.2.462 Unknown [id number] 2.16.8 40.1.083647.3.579.2.462 Unknown [id number] 2.16.8 40.1.263220.3.579.2.462 Unknown [id number] 2.16.8 40.1.350051.3.579.2.462 Unknown [id number] 2.16.8 40.1.010402.3.579.2.462 Unknown [id number] 2.16.8 40.1.108622.3.579.2.462 Unknown [id number] 2.16.8 40.1.049559.3.579.2.462 Unknown [id number] 2.16.8 40.1.818420.3.579.2.462 Unknown [id number] 2.16.8 40.1.967934.3.579.2.462 Unknown [id number] 2.16.8 40.1.558885.3.579.2.462 Unknown [id number] 2.16.8 40.1.055456.3.579.2.462 Unknown [id number] 2.16.8 40.1.641548.3.579.2.462 Unknown [id number] 2.16.8 40.1.955273.3.579.2.462 Unknown [id number] 2.16.8 40.1.273691.3.579.2.462 Unknown [id number] 2.16.8 40.1.767023.3.579.2.462 Social History Date Type Detail Facility Tobacco smoking status Ex-smoker (finding ) [facility] Sex Assigned At Male [facility] Discharge summary note 04-27-2024 Note Date & Type Note Facility 04-27-2024 Note [facility] Consultation note 04-24-2024 Note Date & Type Note Facility 04-24-2024 Note [facility] Clinical Note 04-13-2023 Note Date & Type Note Facility 04-13-2023 Note Sinus rhythm Probable left atrial enlargement Anteroseptal infarct, age indeterminate Electronic Signature: NEVILLE UNDERWOOD MD 04/13/2023 16:41:28 [facility] Evaluation + Plan note Note Date & Type Note Facility Evaluation + Plan note No data available for this section [facility] Hospital Discharge instructions Note Date & Type Note Facility Hospital Discharge instructions No data available for this section [facility] Progress note Note Date & Type Note Facility Progress note No data available for this section [facility] Summary Purpose Family History No Family History Records Found No data available for this section No Family History Records FoundNo Family History Records Found Advance Directives No Advanced Directives Records FoundNo Advanced Directives Records FoundNo Advanced Directives Records Found Procedure Findings Note Operative Note (Enc) (GENSWS ) Progress Notes: Ki aGlaviz MD 04/01/2018 9:54 AM Signed OPERATIVE NOTATION FOR [facility] SURGICAL PROCEDURE. March 17, 2018 Brian Segura 1950 [id number] male PROCEDURE: EGD WITH BIOPSY - [id number] SURGEON: Baljit Galaviz M.D. FACS GARDE MANAGER: None DEPT: W PROVIDER: [id number] Galaviz MD POS: [id number] DIAGNOSIS: (K92.0) Hematemesis, presence of nausea not [...] Clean Contaminated Operative note dictated in the [facility] dictation sys (more content not included)... Additional Source Comments (unrecognized sect ion and content) No Status Records FoundNo Status Records FoundNo Status Records Found INFORMATION SOURCE (unrecogn ized section and content) DATE CREATED AUTHOR 04/01/2018 [facility] DATE CREATED AUTHOR AUTHOR'S ORGANIZ ATION 04/14/2023 [facility] [place] [facility] DATE CREATED AUTHOR AUTHOR'S ORGANIZ ATION 10/07/2024 [facility] Patient Care team informatio n (unrecognized section and content) Care Team Personnel Name: KI LANZA JR, MD Member Role: Primary Care Physician Address: Address: [address] [place] [address] Care Team Related Persons Name: SEGURA, FAY Address: Home [address] [place], [place] [id number] FOR RECORDS PERTAINING TO PATIENTS WHO ARE [...] BE BASED ON THE PRIMARY CLINICAL RECORDS. [facility]. provides no warranty or guarantee of the accuracy or completeness of information in this document.
[2024-10-13 05:43] LABS: AST(SGOT) 22 U/L (<=37); Alanine Aminotransfer ALT/SGPT 12 U/L (<=46); Albumin, Serum 3.9 g/dL (3.4-4.8); Alkaline Phosphatase 87 U/L (40-129); Anion Gap 15 (5-15); BUN 7 mg/dL (4-19); BUN/Creat Ratio 9.8 RATIO (10-20); Calcium,Total 10.4 mg/dL (7.6-11.0); Carbon Dioxide 25.5 mmol/L (21.0-32.0); Chloride 95 mmol/L (98-108); Estimated Creatinine Clearance 97.38 ml/min (50-250); Globulin 3.5 g/dL (2.2-4.2); Glucose 144 mg/dL (70-99); Lipase 33 U/L (13-75); Potassium 3.1 mmol/L (3.3-5.1)
[2024-10-13] MEDS: DiphenhydrAMINE 25 MG, ChlorproMAZINE 25 MG in 0.9% Normal Saline (100mL Bag) 98.5 ML 200 MG IV (05:49)
[2024-10-13] MEDS: 0.9% Normal Saline (500mL Bag) 500 ML 999 ML IV (05:49)
[2024-10-13] MEDS: Potassium Chloride Oral Soln 20 MEQ/15 ML UDC 40 MEQ PO (06:16)
[2024-10-13 06:38] VITALS: BP 166/83; PULSE 73; RESP 18; TEMP 36.6; O2SAT 93
[2024-10-13 07:00] VITALS: BP 119/59; PULSE 82; RESP 18; O2SAT 93
[2024-10-13] MEDS: Capsaicin 0.025% 1 APPLIC Tube TOPICAL (07:19)
== END 2024-10-13 07:30 | disposition home or self-care (01) ==
PROVIDERS: Emergency Provider Emergency Medicine; PCP Family Medicine; Visit Provider Emergency Medicine
DX: R11.2 Nausea with vomiting, unspecified (principal); J44.9 Chronic obstructive pulmonary disease, unspecified; Z87.891 Personal history of nicotine dependence; I10 Essential (primary) hypertension; Z85.828 Personal history of other malignant neoplasm of skin; Z79.899 Other long term (current) drug therapy; K21.9 Gastro-esophageal reflux disease without esophagitis; F41.9 Anxiety disorder, unspecified
CPT/HCPCS: 96365; 96375; 99285; 80053; 83690; 85025; A4216; J2405

== ENCOUNTER 2024-10-13 18:43 | Emergency (ER) | payer MEDICARE, SELFPAY ==
[2024-10-13 18:43] VITALS: BP 140/81; PULSE 96; RESP 22; TEMP 36; O2SAT 95; BMI 37.0
--- NOTE | 2024-10-13 18:58 | ED.RN ---
Did not use cream or sweet pickled fruit maker prescriptions.
--- OUTSIDE RECORDS SUMMARY | 2024-10-13 19:02 | XMS RPT_ITS | CCD ---
Author Organization [facility] CliniSyva Care Team Providers Care Manager Integration Name Role Phone POOL MISTRY, DR KI [...] Attending Unavailable Alfred Grijalva Referring Unavailable Jaleeltsonis, Dvaid F Consulting Unavailable Jaleeltsonis, David F Admitting [...] Primary Care Unavailable Torey Multani Attending Unavailable BroadwayAnnie Referring Unavailable Lynn, Alfred Primary Care Unavailable BroadwayAnnie Attending Unavailable LynnAlfred Attending Unavailable Lynn, Alfred [...] (1 source) Amoxicillin; Translations: [amoxicillin] Drug Allergy [facility] (1 source) Amoxicillin Drug Allergy 10-01-2024 [facility] (1 source) FLUoxetine Drug Allergy 10-01-2024 [facility] Medications Current Medications Medication Drug [...] W/Diff, Automatedon 08-2 Absolute Neut Normal 2.0-7.7 [facility] Comment on above: Result Comment: Alivia elled via OM: MD Ordered Performed By: #### L 100.0100 ####[facility] [address] [place], [address] HCT Normal 40-54 [facility] Comment on above: Result Comment: Alivia elled via OM: MD Ordered Performed By: #### L 100.0100 ####[facility] [address] [place], [address] HGB Normal 13.0-16.5 [facility] Comment on above: Result Comment: Alivia elled via OM: Ordered Performed By: #### L 100.0100 ####[facility] [address] [place], [address] MCH Normal 27.0-32.0 [facility] Comment on above: Result Comment: Canc elled via OM: MD Ordered Performed By: #### L 100.0100 ####[facility] [address] [place], [address] MCHC Normal 32-36 [facility] Comment on above: Result Comment: Canc elled via OM: MD Ordered Performed By: #### L 100.0100 ####[facility] [address] [place], [address] MCV Normal 80-94 [facility] Comment on above: Result Comment: Canc elled via OM: MD Ordered Performed By: #### L 100.0100 ####[facility] [address] [place], [address] NEUT% Normal 47-70 [facility] Comment on above: Result Comment: Canc elled via OM: MD Ordered Performed By: #### L 100.0100 ####[facility] [address] [place], [address] PLT Normal 150-450 [facility] Comment on above: Result Comment: Canc elled via OM: MD Ordered Performed By: #### L 100.0100 ####[facility] [address] [place], [address] RBC Normal 4.6-6.2 [facility] Comment on above: Result Comment: Canc elled via OM: MD Ordered Performed By: #### L 100.0100 ####[facility] [address] [place], [address] RDW CV Normal 11.6-14.6 [facility] Comment on above: Result Comment: Canc elled via OM: MD Ordered Performed By: #### L 100.0100 ####[facility] [address] [place], [address] RDW SD Normal 35.1-43.9 [facility] Comment on above: Result Comment: Canc elled via OM: MD Ordered Performed By: #### L 100.0100 ####[facility] [address] [place], [address] WBC Normal 4.4-11.0 [facility] Comment on above: Result Comment: Alivia garcia via OM: Ordered Performed By: #### L 100.0100 ####[facility] [address] [place], [address] Emergency Department Summary on 10-01-2024 Emergency Department Summary Normal [facility] Emergency Department Summary on 07-25-2024 Emergency Department Summary Normal [facility] 12 Lead EKGon 07-14-2024 12 Lead EKG Normal [facility] CBC W/Diff, Automatedon Absolute Lymph 0.84 X10 3/uL Normal 0.83-4.51 [facility] Comment on above: Performed By: #### L 500.4050, L100.0100 ####[facility] [address] [place], [address] Absolute Neut 8.0 X10 3/uL High 2.0-7.7 [facility] Comment on above: Performed By: #### L 500.4050, L100.0100 ####[facility] [address] [place], [address] Basophils/100 WBC (Bld) 0.4 % Normal 0-1 [facility] Comment on above: Performed By: #### L 500.4050, L100.0100 ####[facility] [address] [place], [address] Eosinophils/100 WBC (Bld) 0.1 % Normal 0-5 [facility] Comment on above: Performed By: #### L 500.4050, L100.0100 ####[facility] [address] [place], [address] Erythrocyte distribution width (RBC) [Ratio] 12.9 % Normal 11.6-14.6 [facility] Comment on above: Performed By: #### L 500.4050, L100.0100 ####[facility] [address] [place], [address] Hematocrit (Bld) [Volume fraction] 37.2 % Low 40-54 [facility] Comment on above: Performed By: #### L 500.4050, L100.0100 ####[facility] [address] [place], [address] Hemoglobin (Bld) [Mass/Vol] 13.2 g/dL Normal 13.0-16.5 [facility] Comment on above: Performed By: #### L 500.4050, L100.0100 ####[facility] [address] [place], [address] IG% 0.400 Normal 0.0-0.9 [facility] Comment on above: Result Comment: IG% - Immature Granulocytes (promyelocytes, myelocytes andmetamyelocytes) > 1% indicates that a LEFT SHIFT is Present. Performed By: #### L 500.4050, L100.0100 ####[facility] [address] [place], [address] Lymphocytes/100 WBC (Bld) 8.9 % Low 19-41 [facility] Comment on above: Performed By: #### L 500.4050, L100.0100 ####[facility] [address] [place], [address] MCH (RBC) [Entitic mass] 32.0 pg Normal 27.0-32.0 [facility] Comment on above: Performed By: #### L 500.4050, L100.0100 ####[facility] [address] [place], [address] MCHC (RBC) [Mass/Vol] 35.5 g/dL Normal 32-36 [facility] Comment on above: Performed By: #### L 500.4050, L100.0100 ####[facility] [address] [place], [address] MCV (RBC) [Entitic vol] 90.3 fL Normal 80-94 [facility] Comment on above: Performed By: #### L 500.4050, L100.0100 ####[facility] [address] [place], [address] Monocytes/100 WBC (Bld) 5.2 % Normal 0-10 [facility] Comment on above: Performed By: #### L 500.4050, L100.0100 ####[facility] [address] [place], [address] Neutrophils/100 WBC (Bld) 85.0 % High 47-70 [facility] Comment on above: Performed By: #### L 500.4050, L100.0100 ####[facility] [address] [place], [address] Nucleated RBC (Bld) [#/Vol] 0 10*3/uL Normal 0-5 [facility] Comment on above: Performed By: #### L 500.4050, L100.0100 ####[facility] [address] [place], [address] Platelet mean volume (Bld) [Entitic vol] 9.9 fL Normal 6.2-12.0 [facility] Comment on above: Performed By: #### L 500.4050, L100.0100 ####[facility] [address] [place], [address] Platelets (Bld) [#/Vol] 221 10*3/uL Normal 150-450 [facility] Comment on above: Performed By: #### L 500.4050, L100.0100 ####[facility] [address] [place], [address] RBC (Bld) [#/Vol] 4.12 10*6/uL Low 4.6-6.2 [facility] Comment on above: Performed By: #### L 500.4050, L100.0100 ####[facility] [address] [place], [address] RDW SD 42.5 fl Normal 35.1-43.9 [facility] Comment on above: Performed By: #### L 500.4050, L100.0100 ####[facility] [address] [place], [address] WBC (Bld) [#/Vol] 9.5 10*3/uL Normal 4.4-11.0 [facility] Comment on above: Performed By: #### L 500.4050, L100.0100 ####[facility] [address] [place], [address] [facility] 07-14-2024 Albumin [Mass/Vol] 3.8 g/dL Normal 3.4-4.8 [facility] Comment on above: Performed By: #### L 500.4050, L100.0100 ####[facility] [address] [place], [address] Albumin/Globulin [Mass ratio] 1.2 {ratio} Normal 0.9-2.4 [facility] Comment on above: Performed By: #### L 500.4050, L100.0100 ####[facility] [address] [place], [address] ALK PHOS 89 U/L Normal 40-129 [facility] Comment on above: Performed By: #### L 500.4050, L100.0100 ####[facility] [address] [place], [address] ALT [Catalytic activity/Vol] 14 U/L Normal <=46 [facility] Comment on above: Performed By: #### L 500.4050, L100.0100 ####[facility] [address] [place], [address] AST [Catalytic activity/Vol] 26 U/L Normal <=37 [facility] Comment on above: Result Comment: Hemo lysis present, Results??could be affected.?? Performed By: #### L 500.4050, L100.0100 ####[facility] [address] [place], [address] Bilirubin [Mass/Vol] 0.41 mg/dL Normal 0.00-1.30 [facility] Comment on above: Performed By: #### L 500.4050, L100.0100 ####[facility] [address] [place], [address] BUN/CRE 14.0 RATIO Normal 10-20 [facility] Comment on above: Performed By: #### L 500.4050, L100.0100 ####[facility] [address] [place], [address] Calcium [Mass/Vol] 8.9 mg/dL Normal 7.6-11.0 [facility] Comment on above: Performed By: #### L 500.4050, L100.0100 ####[facility] [address] [place], [address] Chloride [Moles/Vol] 101 mmol/L Normal 98-108 [facility] Comment on above: Performed By: #### L 500.4050, L100.0100 ####[facility] [address] [place], [address] CO2 [Moles/Vol] 27.0 mmol/L Normal 21.0-32.0 [facility] Comment on above: Performed By: #### L 500.4050, L100.0100 ####[facility] [address] [place], [address] Creatinine [Mass/Vol] 0.74 mg/dL Normal 0.70-1.20 [facility] Comment on above: Performed By: #### L 500.4050, L100.0100 ####[facility] [address] [place], [address] GAP 12 Normal 5-15 [facility] Comment on above: Performed By: #### L 500.4050, L100.0100 ####[facility] [address] [place], [address] GFR/1.73 sq M.predicted among non-blacks MDRD (S/P/Bld) [Vol rate/Area] 94 mL/min/{1.73_m2} Normal >60 [facility] Comment on above: Result Comment: mL/m in/1.73m2 CKD-EPI Creatinine Equation (2020) Performed By: #### L 500.4050, L100.0100 ####[facility] [address] [place], [address] Globulin (S) [Mass/Vol] 3.1 g/dL Normal 2.2-4.2 [facility] Comment on above: Performed By: #### L 500.4050, L100.0100 ####[facility] [address] [place], [address] Glucose [Mass/Vol] 125 mg/dL High 70-99 [facility] Comment on above: Performed By: #### L 500.4050, L100.0100 ####[facility] [address] [place], [address] Potassium [Moles/Vol] 4.0 mmol/L Normal 3.3-5.1 [facility] Comment on above: Result Comment: Hemo lysis present, Results??could be affected.?? Performed By: #### L 500.4050, L100.0100 ####[facility] [address] [place], [address] Sodium [Moles/Vol] 140 mmol/L Normal 133-145 [facility] Comment on above: Performed By: #### L 500.4050, L100.0100 ####[facility] [address] [place], [address] T PROT 6.9 g/dL Normal 5.9-8.4 [facility] Comment on above: Performed By: #### L 500.4050, L100.0100 ####[facility] [address] [place], [address] Urea nitrogen [Mass/Vol] 10 mg/dL Normal 4-19 [facility] Comment on above: Performed By: #### L 500.4050, L100.0100 ####[facility] [address] [place], [address] Emergency Department Summary on 07-14-2024 Emergency Department Summary Normal [facility] Lactic Acidon 07-14-2024 Lactate [Moles/Vol] 1.4 mmol/L Normal 0.0-2.0 [facility] Comment on above: Order Comment: Y Performed By: #### L 503.6005 ####[facility] [address] [place], [address] Chiropractic Reporton 2024 Chiropractic Report Normal [facility] Chiropractic Reporton 2024 Chiropractic Report Normal [facility] Basic Metabolic Profile (BMP )on 06-21-2024 BUN/CRE 15.6 RATIO Normal 10-20 [facility] Comment on above: Performed By: #### L 500.2500 ####[facility] [address] [place], [address] Calcium [Mass/Vol] 9.8 mg/dL Normal 7.6-11.0 [facility] Comment on above: Performed By: #### L 500.2500 ####[facility] [address] [place], [address] Chloride [Moles/Vol] 101 mmol/L Normal 98-108 [facility] Comment on above: Performed By: #### L 500.2500 ####[facility] [address] [place], [address] CO2 [Moles/Vol] 23.2 mmol/L Normal 21.0-32.0 [facility] Comment on above: Performed By: #### L 500.2500 ####[facility] [address] [place], [address] Creatinine [Mass/Vol] 0.90 mg/dL Normal 0.70-1.20 [facility] Comment on above: Performed By: #### L 500.2500 ####[facility] [address] [place], [address] GAP 13 Normal 5-15 [facility] Comment on above: Performed By: #### L 500.2500 ####[facility] [address] [place], [address] GFR/1.73 sq M.predicted among non-blacks MDRD (S/P/Bld) [Vol rate/Area] 88 mL/min/{1.73_m2} Normal >60 [facility] Comment on above: Result Comment: mL/m in/1.73m2 CKD-EPI Creatinine Equation (2020) Performed By: #### L 500.2500 ####[facility] [address] [place], [address] Glucose [Mass/Vol] 102 mg/dL High 70-99 [facility] Comment on above: Performed By: #### L 500.2500 ####[facility] [address] [place], [address] Potassium [Moles/Vol] 3.9 mmol/L Normal 3.3-5.1 [facility] Comment on above: Performed By: #### L 500.2500 ####[facility] [address] [place], [address] Sodium [Moles/Vol] 137 mmol/L Normal 133-145 [facility] Comment on above: Performed By: #### L 500.2500 ####[facility] [address] [place], [address] Urea nitrogen [Mass/Vol] 14 mg/dL Normal 4-19 [facility] Comment on above: Performed By: #### L 500.2500 ####[facility] [address] [place], [address] Basic Metabolic Profile (BMP )on 06-07-2024 BUN/CRE 17.6 RATIO Normal 10-20 [facility] Comment on above: Performed By: #### L 500.2500 ####[facility] [address] [place], [address] Calcium [Mass/Vol] 8.9 mg/dL Normal 7.6-11.0 [facility] Comment on above: Performed By: #### L 500.2500 ####[facility] [address] [place], [address] Chloride [Moles/Vol] 93 mmol/L Low 98-108 [facility] Comment on above: Performed By: #### L 500.2500 ####[facility] [address] [place], [address] CO2 [Moles/Vol] 21.2 mmol/L Normal 21.0-32.0 [facility] Comment on above: Performed By: #### L 500.2500 ####[facility] [address] [place], [address] Creatinine [Mass/Vol] 0.63 mg/dL Low 0.70-1.20 [facility] Comment on above: Performed By: #### L 500.2500 ####[facility] [address] [place], [address] ECRCL 95.23 ml/min Normal 50-250 [facility] Comment on above: Performed By: #### L 500.2500 ####[facility] [address] [place], [address] GAP 13 Normal 5-15 [facility] Comment on above: Performed By: #### L 500.2500 ####[facility] [address] [place], [address] GFR/1.73 sq M.predicted among non-blacks MDRD (S/P/Bld) [Vol rate/Area] 99 mL/min/{1.73_m2} Normal >60 [facility] Comment on above: Result Comment: mL/m in/1.73m2 CKD-EPI Creatinine Equation (2020) Performed By: #### L 500.2500 ####[facility] [address] [place], [address] Glucose [Mass/Vol] 119 mg/dL High 70-99 [facility] Comment on above: Performed By: #### L 500.2500 ####[facility] [address] [place], [address] Potassium [Moles/Vol] 3.8 mmol/L Normal 3.3-5.1 [facility] Comment on above: Performed By: #### L 500.2500 ####[facility] [address] [place], [address] Sodium [Moles/Vol] 128 mmol/L Low 133-145 [facility] Comment on above: Performed By: #### L 500.2500 ####[facility] [address] [place], [address] Urea nitrogen [Mass/Vol] 11 mg/dL Normal 4-19 [facility] Comment on above: Performed By: #### L 500.2500 ####[facility] [address] [place], [address] BUN/CRE 18.6 RATIO Normal 10-20 [facility] Comment on above: Performed By: #### L 100.0100, L500.2500 ####[facility] [address] [place], [address] Calcium [Mass/Vol] 9.3 mg/dL Normal 7.6-11.0 [facility] Comment on above: Performed By: #### L 100.0100, L500.2500 ####[facility] [address] [place], [address] Chloride [Moles/Vol] 91 mmol/L Low 98-108 [facility] Comment on above: Performed By: #### L 100.0100, L500.2500 ####[facility] [address] [place], [address] CO2 [Moles/Vol] 21.8 mmol/L Normal 21.0-32.0 [facility] Comment on above: Performed By: #### L 100.0100, L500.2500 ####[facility] [address] [place], [address] Creatinine [Mass/Vol] 0.68 mg/dL Low 0.70-1.20 [facility] Comment on above: Performed By: #### L 100.0100, L500.2500 ####[facility] [address] [place], [address] ECRCL 95.23 ml/min Normal 50-250 [facility] Comment on above: Performed By: #### L 100.0100, L500.2500 ####[facility] [address] [place], [address] GAP 14 Normal 5-15 [facility] Comment on above: Performed By: #### L 100.0100, L500.2500 ####[facility] [address] [place], [address] GFR/1.73 sq M.predicted among non-blacks MDRD (S/P/Bld) [Vol rate/Area] 97 mL/min/{1.73_m2} Normal >60 [facility] Comment on above: Result Comment: mL/m in/1.73m2 CKD-EPI Creatinine Equation (2020) Performed By: #### L 100.0100, L500.2500 ####[facility] [address] [place], [address] Glucose [Mass/Vol] 116 mg/dL High 70-99 [facility] Comment on above: Performed By: #### L 100.0100, L500.2500 ####[facility] [address] [place], [address] Potassium [Moles/Vol] 4.0 mmol/L Normal 3.3-5.1 [facility] Comment on above: Result Comment: Hemo lysis present, Results??could be affected.?? Performed By: #### L 100.0100, L500.2500 ####[facility] [address] [place], [address] Sodium [Moles/Vol] 127 mmol/L Low 133-145 [facility] Comment on above: Performed By: #### L 100.0100, L500.2500 ####[facility] [address] [place], [address] Urea nitrogen [Mass/Vol] 13 mg/dL Normal 4-19 [facility] Comment on above: Performed By: #### L 100.0100, L500.2500 ####[facility] [address] [place], [address] CBC W/Diff, Automatedon 05-0 Absolute Lymph 1.01 X10 3/uL Normal 0.83-4.51 [facility] Comment on above: Performed By: #### L 100.0100, L500.2500 ####[facility] [address] [place], [address] Absolute Neut 12.6 X10 3/uL High 2.0-7.7 [facility] Comment on above: Performed By: #### L 100.0100, L500.2500 ####[facility] [address] [place], [address] Basophils/100 WBC (Bld) 0.2 % Normal 0-1 [facility] Comment on above: Performed By: #### L 100.0100, L500.2500 ####[facility] [address] [place], [address] Eosinophils/100 WBC (Bld) 0.0 % Normal 0-5 [facility] Comment on above: Performed By: #### L 100.0100, L500.2500 ####[facility] [address] [place], [address] Erythrocyte distribution width (RBC) [Ratio] 12.9 % Normal 11.6-14.6 [facility] Comment on above: Performed By: #### L 100.0100, L500.2500 ####[facility] [address] [place], [address] Hematocrit (Bld) [Volume fraction] 39.2 % Low 40-54 [facility] Comment on above: Performed By: #### L 100.0100, L500.2500 ####[facility] [address] [place], [address] Hemoglobin (Bld) [Mass/Vol] 13.8 g/dL Normal 13.0-16.5 [facility] Comment on above: Performed By: #### L 100.0100, L500.2500 ####[facility] [address] [place], [address] IG% 0.400 Normal 0.0-0.9 [facility] Comment on above: Result Comment: IG% - Immature Granulocytes (promyelocytes, myelocytes andmetamyelocytes) > 1% indicates that a LEFT SHIFT is Present. Performed By: #### L 100.0100, L500.2500 ####[facility] [address] [place], [address] Lymphocytes/100 WBC (Bld) 7.0 % Low 19-41 [facility] Comment on above: Performed By: #### L 100.0100, L500.2500 ####[facility] [address] [place], [address] MCH (RBC) [Entitic mass] 32.1 pg High 27.0-32.0 [facility] Comment on above: Performed By: #### L 100.0100, L500.2500 ####[facility] [address] [place], [address] MCHC (RBC) [Mass/Vol] 35.2 g/dL Normal 32-36 [facility] Comment on above: Performed By: #### L 100.0100, L500.2500 ####[facility] [address] [place], [address] MCV (RBC) [Entitic vol] 91.2 fL Normal 80-94 [facility] Comment on above: Performed By: #### L 100.0100, L500.2500 ####[facility] [address] [place], [address] Monocytes/100 WBC (Bld) 4.5 % Normal 0-10 [facility] Comment on above: Performed By: #### L 100.0100, L500.2500 ####[facility] [address] [place], [address] Neutrophils/100 WBC (Bld) 87.9 % High 47-70 [facility] Comment on above: Performed By: #### L 100.0100, L500.2500 ####[facility] [address] [place], [address] Nucleated RBC (Bld) [#/Vol] 0 10*3/uL Normal 0-5 [facility] Comment on above: Performed By: #### L 100.0100, L500.2500 ####[facility] [address] [place], [address] Platelet mean volume (Bld) [Entitic vol] 9.6 fL Normal 6.2-12.0 [facility] Comment on above: Performed By: #### L 100.0100, L500.2500 ####[facility] [address] [place], [address] Platelets (Bld) [#/Vol] 306 10*3/uL Normal 150-450 [facility] Comment on above: Performed By: #### L 100.0100, L500.2500 ####[facility] [address] [place], [address] RBC (Bld) [#/Vol] 4.30 10*6/uL Low 4.6-6.2 [facility] Comment on above: Performed By: #### L 100.0100, L500.2500 ####[facility] [address] [place], [address] RDW SD 43.0 fl Normal 35.1-43.9 [facility] Comment on above: Performed By: #### L 100.0100, L500.2500 ####[facility] [address] [place], [address] WBC (Bld) [#/Vol] 14.3 10*3/uL High 4.4-11.0 [facility] Comment on above: Performed By: #### L 100.0100, L500.2500 ####[facility] [address] [place], [address] Emergency Department Summary on 06-07-2024 Emergency Department Summary Normal [facility] Lipaseon 06-07-2024 Lipase [Catalytic activity/Vol] 35 U/L Normal 13-75 [facility] Comment on above: Result Comment: Nagi nelson note:LIPASE revised reference range effective 22.New Lipase methodology. Expected to produce lower valuesthan the previous assay method.NEW Reference Range: 13 - 75 U/L Performed By: #### L 501.2450, L500.3400 ####[facility] [address] [place], [address] Liver Profileon 06-07-2024 Albumin [Mass/Vol] 3.9 g/dL Normal 3.4-4.8 [facility] Comment on above: Performed By: #### L 501.2450, L500.3400 ####[facility] [address] [place], [address] ALK PHOS 89 U/L Normal 40-129 [facility] Comment on above: Performed By: #### L 501.2450, L500.3400 ####[facility] [address] [place], [address] ALT [Catalytic activity/Vol] 21 U/L Normal <=46 [facility] Comment on above: Performed By: #### L 501.2450, L500.3400 ####[facility] [address] [place], [address] AST [Catalytic activity/Vol] 26 U/L Normal <=37 [facility] Comment on above: Result Comment: Hemo lysis present, Results??could be affected.?? Performed By: #### L 501.2450, L500.3400 ####[facility] [address] [place], [address] Bilirubin [Mass/Vol] 0.49 mg/dL Normal 0.00-1.30 [facility] Comment on above: Performed By: #### L 501.2450, L500.3400 ####[facility] [address] [place], [address] Bilirubin.direct [Mass/Vol] 0.22 mg/dL Normal 0.00-0.30 [facility] Comment on above: Result Comment: Hemo lysis present, Results??could be affected.?? Performed By: #### L 501.2450, L500.3400 ####[facility] [address] [place], [address] Globulin (S) [Mass/Vol] 3.6 g/dL Normal 2.2-4.2 [facility] Comment on above: Performed By: #### L 501.2450, L500.3400 ####[facility] [address] [place], [address] T PROT 7.5 g/dL Normal 5.9-8.4 [facility] Comment on above: Performed By: #### L 501.2450, L500.3400 ####[facility] [address] [place], [address] Urinalysis, Completeon 06-07 CAST,HYALINE 0-5 SEEN Normal 0-5 [facility] Comment on above: Order Comment: COLLE CTOR TO SPECIFY Performed By: #### L 400.0001 ####[facility] [address] [place], [address] RBC 0-5 SEEN Normal 0-5 [facility] Comment on above: Order Comment: COLLE CTOR TO SPECIFY Performed By: #### L 400.0001 ####[facility] [address] [place], [address] WBC 0-5 SEEN Normal 0-5 [facility] Comment on above: Order Comment: COLLE CTOR TO SPECIFY Performed By: #### L 400.0001 ####[facility] [address] [place], [address] BACTERIA 0 SEEN Normal None Seen [facility] Comment on above: Order Comment: COLLE CTOR TO SPECIFY Performed By: #### L 400.0001 ####[facility] [address] [place], [address] EPI,SQUAMOUS 0 SEEN Normal 0-5 [facility] Comment on above: Order Comment: COLLE CTOR TO SPECIFY Performed By: #### L 400.0001 ####[facility] [address] [place], [address] Mucus Ql (Urine sed) 0 SEEN Normal [facility] Comment on above: Order Comment: COLLE CTOR TO SPECIFY Performed By: #### L 400.0001 ####[facility] [address] [place], [address] Basic Metabolic Profile (BMP )on 05-28-2024 BUN/CRE 21.0 RATIO High 10-20 [facility] Comment on above: Performed By: #### L 100.0100, L500.2500 ####[facility] [address] [place], [address] Calcium [Mass/Vol] 9.8 mg/dL Normal 7.6-11.0 [facility] Comment on above: Performed By: #### L 100.0100, L500.2500 ####[facility] [address] [place], [address] Chloride [Moles/Vol] 91 mmol/L Low 98-108 [facility] Comment on above: Performed By: #### L 100.0100, L500.2500 ####[facility] [address] [place], [address] CO2 [Moles/Vol] 26.3 mmol/L Normal 21.0-32.0 [facility] Comment on above: Performed By: #### L 100.0100, L500.2500 ####[facility] [address] [place], [address] Creatinine [Mass/Vol] 0.85 mg/dL Normal 0.70-1.20 [facility] Comment on above: Performed By: #### L 100.0100, L500.2500 ####[facility] [address] [place], [address] ECRCL 88.64 ml/min Normal 50-250 [facility] Comment on above: Performed By: #### L 100.0100, L500.2500 ####[facility] [address] [place], [address] GAP 11 Normal 5-15 [facility] Comment on above: Performed By: #### L 100.0100, L500.2500 ####[facility] [address] [place], [address] GFR/1.73 sq M.predicted among non-blacks MDRD (S/P/Bld) [Vol rate/Area] 90 mL/min/{1.73_m2} Normal >60 [facility] Comment on above: Result Comment: mL/m in/1.73m2 CKD-EPI Creatinine Equation (2020) Performed By: #### L 100.0100, L500.2500 ####[facility] [address] [place], [address] Glucose [Mass/Vol] 114 mg/dL High 70-99 [facility] Comment on above: Performed By: #### L 100.0100, L500.2500 ####[facility] [address] [place], [address] Potassium [Moles/Vol] 3.9 mmol/L Normal 3.3-5.1 [facility] Comment on above: Performed By: #### L 100.0100, L500.2500 ####[facility] [address] [place], [address] Sodium [Moles/Vol] 129 mmol/L Low 133-145 [facility] Comment on above: Performed By: #### L 100.0100, L500.2500 ####[facility] [address] [place], [address] Urea nitrogen [Mass/Vol] 18 mg/dL Normal 4-19 [facility] Comment on above: Performed By: #### L 100.0100, L500.2500 ####[facility] [address] [place], [address] CBC W/Diff, Automatedon 04-2 -2024 Absolute Lymph 1.70 X10 3/uL Normal 0.83-4.51 [facility] Comment on above: Performed By: #### L 100.0100, L500.2500 ####[facility] [address] [place], [address] Absolute Neut 9.5 X10 3/uL High 2.0-7.7 [facility] Comment on above: Performed By: #### L 100.0100, L500.2500 ####[facility] [address] [place], [address] Basophils/100 WBC (Bld) 0.4 % Normal 0-1 [facility] Comment on above: Performed By: #### L 100.0100, L500.2500 ####[facility] [address] [place], [address] Eosinophils/100 WBC (Bld) 0.3 % Normal 0-5 [facility] Comment on above: Performed By: #### L 100.0100, L500.2500 ####[facility] [address] [place], [address] Erythrocyte distribution width (RBC) [Ratio] 12.9 % Normal 11.6-14.6 [facility] Comment on above: Performed By: #### L 100.0100, L500.2500 ####[facility] [address] [place], [address] Hematocrit (Bld) [Volume fraction] 41.7 % Normal 40-54 [facility] Comment on above: Performed By: #### L 100.0100, L500.2500 ####[facility] [address] [place], [address] Hemoglobin (Bld) [Mass/Vol] 14.8 g/dL Normal 13.0-16.5 [facility] Comment on above: Performed By: #### L 100.0100, L500.2500 ####[facility] [address] [place], [address] IG% 0.500 Normal 0.0-0.9 [facility] Comment on above: Result Comment: IG% - Immature Granulocytes (promyelocytes, myelocytes andmetamyelocytes) > 1% indicates that a LEFT SHIFT is Present. Performed By: #### L 100.0100, L500.2500 ####[facility] [address] [place], [address] Lymphocytes/100 WBC (Bld) 13.7 % Low 19-41 [facility] Comment on above: Performed By: #### L 100.0100, L500.2500 ####[facility] [address] [place], [address] MCH (RBC) [Entitic mass] 32.3 pg High 27.0-32.0 [facility] Comment on above: Performed By: #### L 100.0100, L500.2500 ####[facility] [address] [place], [address] MCHC (RBC) [Mass/Vol] 35.5 g/dL Normal 32-36 [facility] Comment on above: Performed By: #### L 100.0100, L500.2500 ####[facility] [address] [place], [address] MCV (RBC) [Entitic vol] 91.0 fL Normal 80-94 [facility] Comment on above: Performed By: #### L 100.0100, L500.2500 ####[facility] [address] [place], [address] Monocytes/100 WBC (Bld) 8.9 % Normal 0-10 [facility] Comment on above: Performed By: #### L 100.0100, L500.2500 ####[facility] [address] [place], [address] Neutrophils/100 WBC (Bld) 76.2 % High 47-70 [facility] Comment on above: Performed By: #### L 100.0100, L500.2500 ####[facility] [address] [place], [address] Nucleated RBC (Bld) [#/Vol] 0 10*3/uL Normal 0-5 [facility] Comment on above: Performed By: #### L 100.0100, L500.2500 ####[facility] [address] [place], [address] Platelet mean volume (Bld) [Entitic vol] 9.5 fL Normal 6.2-12.0 [facility] Comment on above: Performed By: #### L 100.0100, L500.2500 ####[facility] [address] [place], [address] Platelets (Bld) [#/Vol] 316 10*3/uL Normal 150-450 [facility] Comment on above: Performed By: #### L 100.0100, L500.2500 ####[facility] [address] [place], [address] RBC (Bld) [#/Vol] 4.58 10*6/uL Low 4.6-6.2 [facility] Comment on above: Performed By: #### L 100.0100, L500.2500 ####[facility] [address] [place], [address] RDW SD 42.3 fl Normal 35.1-43.9 [facility] Comment on above: Performed By: #### L 100.0100, L500.2500 ####[facility] [address] [place], [address] WBC (Bld) [#/Vol] 12.4 10*3/uL High 4.4-11.0 [facility] Comment on above: Performed By: #### L 100.0100, L500.2500 ####[facility] [address] [place], [address] Emergency Department Summary on 05-28-2024 Emergency Department Summary Normal [facility] 12 Lead EKGon 05-26-2024 12 Lead EKG Normal [facility] CBC W/Diff, Automatedon 05-08 Absolute Lymph 1.66 X10 3/uL Normal 0.83-4.51 [facility] Comment on above: Performed By: #### L 500.4050, L501.2450, L100.0100 ####[facility] [address] [place], [address] Absolute Neut 9.5 X10 3/uL High 2.0-7.7 [facility] Comment on above: Performed By: #### L 500.4050, L501.2450, L100.0100 ####[facility] [address] [place], [address] Basophils/100 WBC (Bld) 0.5 % Normal 0-1 [facility] Comment on above: Performed By: #### L 500.4050, L501.2450, L100.0100 ####[facility] [address] [place], [address] Eosinophils/100 WBC (Bld) 0.5 % Normal 0-5 [facility] Comment on above: Performed By: #### L 500.4050, L501.2450, L100.0100 ####[facility] [address] [place], [address] Erythrocyte distribution width (RBC) [Ratio] 13.2 % Normal 11.6-14.6 [facility] Comment on above: Performed By: #### L 500.4050, L501.2450, L100.0100 ####[facility] [address] [place], [address] Hematocrit (Bld) [Volume fraction] 42.0 % Normal 40-54 [facility] Comment on above: Performed By: #### L 500.4050, L501.2450, L100.0100 ####[facility] [address] [place], [address] Hemoglobin (Bld) [Mass/Vol] 15.2 g/dL Normal 13.0-16.5 [facility] Comment on above: Performed By: #### L 500.4050, L501.2450, L100.0100 ####[facility] [address] [place], [address] IG% 0.300 Normal 0.0-0.9 [facility] Comment on above: Result Comment: IG% - Immature Granulocytes (promyelocytes, myelocytes andmetamyelocytes) > 1% indicates that a LEFT SHIFT is Present. Performed By: #### L 500.4050, L501.2450, L100.0100 ####[facility] [address] [place], [address] Lymphocytes/100 WBC (Bld) 13.4 % Low 19-41 [facility] Comment on above: Performed By: #### L 500.4050, L501.2450, L100.0100 ####[facility] [address] [place], [address] MCH (RBC) [Entitic mass] 33.4 pg High 27.0-32.0 [facility] Comment on above: Performed By: #### L 500.4050, L501.2450, L100.0100 ####[facility] [address] [place], [address] MCHC (RBC) [Mass/Vol] 36.2 g/dL High 32-36 [facility] Comment on above: Performed By: #### L 500.4050, L501.2450, L100.0100 ####[facility] [address] [place], [address] MCV (RBC) [Entitic vol] 92.3 fL Normal 80-94 [facility] Comment on above: Performed By: #### L 500.4050, L501.2450, L100.0100 ####[facility] [address] [place], [address] Monocytes/100 WBC (Bld) 8.2 % Normal 0-10 [facility] Comment on above: Performed By: #### L 500.4050, L501.2450, L100.0100 ####[facility] [address] [place], [address] Neutrophils/100 WBC (Bld) 77.1 % High 47-70 [facility] Comment on above: Performed By: #### L 500.4050, L501.2450, L100.0100 ####[facility] [address] [place], [address] Nucleated RBC (Bld) [#/Vol] 0 10*3/uL Normal 0-5 [facility] Comment on above: Performed By: #### L 500.4050, L501.2450, L100.0100 ####[facility] [address] [place], [address] Platelet mean volume (Bld) [Entitic vol] 9.6 fL Normal 6.2-12.0 [facility] Comment on above: Performed By: #### L 500.4050, L501.2450, L100.0100 ####[facility] [address] [place], [address] Platelets (Bld) [#/Vol] 329 10*3/uL Normal 150-450 [facility] Comment on above: Performed By: #### L 500.4050, L501.2450, L100.0100 ####[facility] [address] [place], [address] RBC (Bld) [#/Vol] 4.55 10*6/uL Low 4.6-6.2 [facility] Comment on above: Performed By: #### L 500.4050, L501.2450, L100.0100 ####[facility] [address] [place], [address] RDW SD 44.5 fl High 35.1-43.9 [facility] Comment on above: Performed By: #### L 500.4050, L501.2450, L100.0100 ####[facility] [address] [place], [address] WBC (Bld) [#/Vol] 12.4 10*3/uL High 4.4-11.0 [facility] Comment on above: Performed By: #### L 500.4050, L501.2450, L100.0100 ####[facility] [address] [place], [address] Comprehensive Metabolic Prof ilon 05-26-2024 Albumin [Mass/Vol] 3.8 g/dL Normal 3.4-4.8 [facility] Comment on above: Performed By: #### L 500.4050, L501.2450, L100.0100 ####[facility] [address] [place], [address] Albumin/Globulin [Mass ratio] 1.0 {ratio} Normal 0.9-2.4 [facility] Comment on above: Performed By: #### L 500.4050, L501.2450, L100.0100 ####[facility] [address] [place], [address] ALK PHOS 94 U/L Normal 40-129 [facility] Comment on above: Performed By: #### L 500.4050, L501.2450, L100.0100 ####[facility] [address] [place], [address] ALT [Catalytic activity/Vol] 22 U/L Normal <=46 [facility] Comment on above: Performed By: #### L 500.4050, L501.2450, L100.0100 ####[facility] [address] [place], [address] AST [Catalytic activity/Vol] 27 U/L Normal <=37 [facility] Comment on above: Result Comment: Hemo lysis present, Results??could be affected.?? Performed By: #### L 500.4050, L501.2450, L100.0100 ####[facility] [address] [place], [address] Bilirubin [Mass/Vol] 0.51 mg/dL Normal 0.00-1.30 [facility] Comment on above: Performed By: #### L 500.4050, L501.2450, L100.0100 ####[facility] [address] [place], [address] BUN/CRE 25.7 RATIO High 10-20 [facility] Comment on above: Performed By: #### L 500.4050, L501.2450, L100.0100 ####[facility] [address] [place], [address] Calcium [Mass/Vol] 9.7 mg/dL Normal 7.6-11.0 [facility] Comment on above: Performed By: #### L 500.4050, L501.2450, L100.0100 ####[facility] [address] [place], [address] Chloride [Moles/Vol] 98 mmol/L Normal 98-108 [facility] Comment on above: Performed By: #### L 500.4050, L501.2450, L100.0100 ####[facility] [address] [place], [address] CO2 [Moles/Vol] 23.4 mmol/L Normal 21.0-32.0 [facility] Comment on above: Performed By: #### L 500.4050, L501.2450, L100.0100 ####[facility] [address] [place], [address] Creatinine [Mass/Vol] 0.86 mg/dL Normal 0.70-1.20 [facility] Comment on above: Performed By: #### L 500.4050, L501.2450, L100.0100 ####[facility] [address] [place], [address] ECRCL 87.90 ml/min Normal 50-250 [facility] Comment on above: Performed By: #### L 500.4050, L501.2450, L100.0100 ####[facility] [address] [place], [address] GAP 13 Normal 5-15 [facility] Comment on above: Performed By: #### L 500.4050, L501.2450, L100.0100 ####[facility] [address] [place], [address] GFR/1.73 sq M.predicted among non-blacks MDRD (S/P/Bld) [Vol rate/Area] 90 mL/min/{1.73_m2} Normal >60 [facility] Comment on above: Result Comment: mL/m in/1.73m2 CKD-EPI Creatinine Equation (2020) Performed By: #### L 500.4050, L501.2450, L100.0100 ####[facility] [address] [place], [address] Globulin (S) [Mass/Vol] 3.7 g/dL Normal 2.2-4.2 [facility] Comment on above: Performed By: #### L 500.4050, L501.2450, L100.0100 ####[facility] [address] [place], [address] Glucose [Mass/Vol] 111 mg/dL High 70-99 [facility] Comment on above: Performed By: #### L 500.4050, L501.2450, L100.0100 ####[facility] [address] [place], [address] Potassium [Moles/Vol] 4.5 mmol/L Normal 3.3-5.1 [facility] Comment on above: Result Comment: Hemo lysis present, Results??could be affected.?? Performed By: #### L 500.4050, L501.2450, L100.0100 ####[facility] [address] [place], [address] Sodium [Moles/Vol] 135 mmol/L Normal 133-145 [facility] Comment on above: Performed By: #### L 500.4050, L501.2450, L100.0100 ####[facility] [address] [place], [address] T PROT 7.5 g/dL Normal 5.9-8.4 [facility] Comment on above: Performed By: #### L 500.4050, L501.2450, L100.0100 ####[facility] [address] [place], [address] Urea nitrogen [Mass/Vol] 22 mg/dL High - [facility] Comment on above: Performed By: #### L 500.4050, L501.2450, L100.0100 ####[facility] [address] [place], [address] Emergency Department Summary on 05-26-2024 Emergency Department Summary Normal [facility] Lipaseon 05-26-2024 Lipase [Catalytic activity/Vol] 132 U/L High 13-75 [facility] Comment on above: Result Comment: Nagi nelson note:LIPASE revised reference range effective 22.New Lipase methodology. Expected to produce lower valuesthan the previous assay method.NEW Reference Range: 13 - 75 U/L Performed By: #### L 500.4050, L501.2450, L100.0100 ####[facility] [address] [place], [address] Urinalysis, Completeon 05-26 BACTERIA 0 SEEN Normal None Seen [facility] Comment on above: Order Comment: CLEAN CATCH Performed By: #### L 400.0001 ####[facility] [address] [place], [address] EPI,SQUAMOUS 0 SEEN Normal 0-5 [facility] Comment on above: Order Comment: CLEAN CATCH Performed By: #### L 400.0001 ####[facility] [address] [place], [address] Mucus Ql (Urine sed) 0 SEEN Normal [facility] Comment on above: Order Comment: CLEAN CATCH Performed By: #### L 400.0001 ####[facility] [address] [place], [address] RBC 0 SEEN Normal 0-5 [facility] Comment on above: Order Comment: CLEAN CATCH Performed By: #### L 400.0001 ####[facility] [address] [place], [address] WBC 0 SEEN Normal 0-5 [facility] Comment on above: Order Comment: CLEAN CATCH Performed By: #### L 400.0001 ####[facility] [address] [facility] [address] Urine Drug Screen (VISTA)on 05-26-2024 AMPHETAMINES Negative Normal <1000 ng/mL [facility] Comment on above: Performed By: #### L 505.5000 ####[facility] [address] [place] [id number] BARBITIURATES Negative Normal < 200 ng/mL [facility] Comment on above: Performed By: #### L 505.5000 ####[facility] [address] [place] [address] BENZODIAZIPINE Positive Normal < 200 ng/mL [facility] Comment on above: Result Comment: If c onfirmation testing is needed, a separate order will berequired to send out testing to the reference laboratory. Performed By: #### L 505.5000 ####[facility] [address] [place] [address] BUP Ur Drug Scr Negative Normal < 200 ng/mL [facility] Comment on above: Performed By: #### L 505.5000 ####[facility] [address] [place] [address] COCAINE Negative Normal < 300 ng/mL [facility] Comment on above: Performed By: #### L 505.5000 ####[facility] [address] [place] [id number] Fentanyl Negative Normal [facility] Comment on above: Performed By: #### L 505.5000 ####[facility] [address] [facility] [address] METHADONE Negative Normal < 300 ng/mL [facility] Comment on above: Performed By: #### L 505.5000 ####[facility] [address] [place], [address] OPIATES Negative Normal < 300 ng/mL [facility] Comment on above: Performed By: #### L 505.5000 ####[facility] [address] [place], [address] OXYCODONE Negative Normal < 100 ng/mL [facility] Comment on above: Performed By: #### L 505.5000 ####[facility] [address] [place], [address] PCP Negative Normal < 25 ng/mL [facility] Comment on above: Performed By: #### L 505.5000 ####[facility] [address] [place], [address] THC Negative Normal < 50 ng/mL [facility] Comment on above: Performed By: #### L 505.5000 ####[facility] [address] [place], [address] CBC W/Diff, Automatedon 05-08 Absolute Lymph 1.99 X10 3/uL Normal 0.83-4.51 [facility] Comment on above: Performed By: #### L 500.4050, L100.0100, L503.7505 ####[facility] [address] [place], [address] Absolute Neut 6.1 X10 3/uL Normal 2.0-7.7 [facility] Comment on above: Performed By: #### L 500.4050, L100.0100, L503.7505 ####[facility] [address] [place], [address] Basophils/100 WBC (Bld) 0.5 % Normal 0-1 [facility] Comment on above: Performed By: #### L 500.4050, L100.0100, L503.7505 ####[facility] [address] [place], [address] Eosinophils/100 WBC (Bld) 1.1 % Normal 0-5 [facility] Comment on above: Performed By: #### L 500.4050, L100.0100, L503.7505 ####[facility] [address] [place], [address] Erythrocyte distribution width (RBC) [Ratio] 12.6 % Normal 11.6-14.6 [facility] Comment on above: Performed By: #### L 500.4050, L100.0100, L503.7505 ####[facility] [address] [place], [address] Hematocrit (Bld) [Volume fraction] 40.2 % Normal 40-54 [facility] Comment on above: Performed By: #### L 500.4050, L100.0100, L503.7505 ####[facility] [address] [place], [address] Hemoglobin (Bld) [Mass/Vol] 13.9 g/dL Normal 13.0-16.5 [facility] Comment on above: Performed By: #### L 500.4050, L100.0100, L503.7505 ####[facility] [address] [place], [address] IG% 0.500 Normal 0.0-0.9 [facility] Comment on above: Result Comment: IG% - Immature Granulocytes (promyelocytes, myelocytes andmetamyelocytes) > 1% indicates that a LEFT SHIFT is Present. Performed By: #### L 500.4050, L100.0100, L503.7505 ####[facility] [address] [place], [address] Lymphocytes/100 WBC (Bld) 21.4 % Normal 19-41 [facility] Comment on above: Performed By: #### L 500.4050, L100.0100, L503.7505 ####[facility] [address] [place], [address] MCH (RBC) [Entitic mass] 32.3 pg High 27.0-32.0 [facility] Comment on above: Performed By: #### L 500.4050, L100.0100, L503.7505 ####[facility] [address] [place], [address] MCHC (RBC) [Mass/Vol] 34.6 g/dL Normal 32-36 [facility] Comment on above: Performed By: #### L 500.4050, L100.0100, L503.7505 ####[facility] [address] [place], [address] MCV (RBC) [Entitic vol] 93.5 fL Normal 80-94 [facility] Comment on above: Performed By: #### L 500.4050, L100.0100, L503.7505 ####[facility] [address] [place], [address] Monocytes/100 WBC (Bld) 11.3 % High 0-10 [facility] Comment on above: Performed By: #### L 500.4050, L100.0100, L503.7505 ####[facility] [address] [place], [address] Neutrophils/100 WBC (Bld) 65.2 % Normal 47-70 [facility] Comment on above: Performed By: #### L 500.4050, L100.0100, L503.7505 ####[facility] [address] [place], [address] Nucleated RBC (Bld) [#/Vol] 0 10*3/uL Normal 0-5 [facility] Comment on above: Performed By: #### L 500.4050, L100.0100, L503.7505 ####[facility] [address] [place], [address] Platelet mean volume (Bld) [Entitic vol] 9.8 fL Normal 6.2-12.0 [facility] Comment on above: Performed By: #### L 500.4050, L100.0100, L503.7505 ####[facility] [address] [place], [address] Platelets (Bld) [#/Vol] 309 10*3/uL Normal 150-450 [facility] Comment on above: Performed By: #### L 500.4050, L100.0100, L503.7505 ####[facility] [address] [place], [address] RBC (Bld) [#/Vol] 4.30 10*6/uL Low 4.6-6.2 [facility] Comment on above: Performed By: #### L 500.4050, L100.0100, L503.7505 ####[facility] [address] [place], [address] RDW SD 42.7 fl Normal 35.1-43.9 [facility] Comment on above: Performed By: #### L 500.4050, L100.0100, L503.7505 ####[facility] [address] [place], [address] WBC (Bld) [#/Vol] 9.3 10*3/uL Normal 4.4-11.0 [facility] Comment on above: Performed By: #### L 500.4050, L100.0100, L503.7505 ####[facility] [address] [place], [address] Comprehensive Metabolic Prof ilon 05-21-2024 Albumin [Mass/Vol] 3.6 g/dL Normal 3.4-4.8 [facility] Comment on above: Performed By: #### L 500.4050, L100.0100, L503.7505 ####[facility] [address] [place], [address] Albumin/Globulin [Mass ratio] 1.0 {ratio} Normal 0.9-2.4 [facility] Comment on above: Performed By: #### L 500.4050, L100.0100, L503.7505 ####[facility] [address] [place], [address] ALK PHOS 92 U/L Normal 40-129 [facility] Comment on above: Performed By: #### L 500.4050, L100.0100, L503.7505 ####[facility] [address] [place], [address] ALT [Catalytic activity/Vol] 17 U/L Normal <=46 [facility] Comment on above: Performed By: #### L 500.4050, L100.0100, L503.7505 ####[facility] [address] [place], [address] AST [Catalytic activity/Vol] 27 U/L Normal <=37 [facility] Comment on above: Performed By: #### L 500.4050, L100.0100, L503.7505 ####[facility] [address] [place], [address] Bilirubin [Mass/Vol] 0.47 mg/dL Normal 0.00-1.30 [facility] Comment on above: Performed By: #### L 500.4050, L100.0100, L503.7505 ####[facility] [address] [place], [address] BUN/CRE 14.6 RATIO Normal 10-20 [facility] Comment on above: Performed By: #### L 500.4050, L100.0100, L503.7505 ####[facility] [address] [place], [address] Calcium [Mass/Vol] 9.5 mg/dL Normal 7.6-11.0 [facility] Comment on above: Performed By: #### L 500.4050, L100.0100, L503.7505 ####[facility] [address] [place], [address] Chloride [Moles/Vol] 92 mmol/L Low 98-108 [facility] Comment on above: Performed By: #### L 500.4050, L100.0100, L503.7505 ####[facility] [address] [place], [address] CO2 [Moles/Vol] 26.3 mmol/L Normal 21.0-32.0 [facility] Comment on above: Performed By: #### L 500.4050, L100.0100, L503.7505 ####[facility] [address] [place], [address] Creatinine [Mass/Vol] 0.70 mg/dL Normal 0.70-1.20 [facility] Comment on above: Performed By: #### L 500.4050, L100.0100, L503.7505 ####[facility] [address] [place], [address] GAP 11 Normal 5-15 [facility] Comment on above: Performed By: #### L 500.4050, L100.0100, L503.7505 ####[facility] [address] [place], [address] GFR/1.73 sq M.predicted among non-blacks MDRD (S/P/Bld) [Vol rate/Area] 95 mL/min/{1.73_m2} Normal >60 [facility] Comment on above: Result Comment: mL/m in/1.73m2 CKD-EPI Creatinine Equation (2020) Performed By: #### L 500.4050, L100.0100, L503.7505 ####[facility] [address] [place], [address] Globulin (S) [Mass/Vol] 3.6 g/dL Normal 2.2-4.2 [facility] Comment on above: Performed By: #### L 500.4050, L100.0100, L503.7505 ####[facility] [address] [place], [address] Glucose [Mass/Vol] 99 mg/dL Normal 70-99 [facility] Comment on above: Performed By: #### L 500.4050, L100.0100, L503.7505 ####[facility] [address] [place], [address] Potassium [Moles/Vol] 4.4 mmol/L Normal 3.3-5.1 [facility] Comment on above: Performed By: #### L 500.4050, L100.0100, L503.7505 ####[facility] [address] [place], [address] Sodium [Moles/Vol] 129 mmol/L Low 133-145 [facility] Comment on above: Performed By: #### L 500.4050, L100.0100, L503.7505 ####[facility] [address] [place], [address] T PROT 7.2 g/dL Normal 5.9-8.4 [facility] Comment on above: Performed By: #### L 500.4050, L100.0100, L503.7505 ####[facility] [address] [place], [address] Urea nitrogen [Mass/Vol] 10 mg/dL Normal 4-19 [facility] Comment on above: Performed By: #### L 500.4050, L100.0100, L503.7505 ####[facility] [address] [place], [address] L503.7505on 05-21-2024 Natriuretic peptide B (Bld) [Mass/Vol] 66 pg/mL Normal <=1800 [facility] Comment on above: Result Comment: Hear t Failure Unlikely: < 300 pg/mLHeart Failure Likely< 50 Years: > 450 pg/mL50-75 Years: > 900 pg/mL>75 Years: > 1800 pg/mL Performed By: #### L 500.4050, L100.0100, L503.7505 ####[facility] [address] [place], [address] Basic Metabolic Profile (BMP )on 04-30-2024 BUN/CRE 23.2 RATIO High 10-20 [facility] Comment on above: Order Comment: 103.2 Performed By: #### L 100.0100, L506.1001, L503.0106, L500.2500, L501.9520, L501.5200 ####[facility] [address] [place], [address] Calcium [Mass/Vol] 9.4 mg/dL Normal 7.6-11.0 [facility] Comment on above: Order Comment: 103.2 Performed By: #### L 100.0100, L506.1001, L503.0106, L500.2500, L501.9520, L501.5200 ####[facility] [address] [place], [address] Chloride [Moles/Vol] 98 mmol/L Normal 98-108 [facility] Comment on above: Order Comment: 103.2 Performed By: #### L 100.0100, L506.1001, L503.0106, L500.2500, L501.9520, L501.5200 ####[facility] [address] [place], [address] CO2 [Moles/Vol] 24.1 mmol/L Normal 21.0-32.0 [facility] Comment on above: Order Comment: 103.2 Performed By: #### L 100.0100, L506.1001, L503.0106, L500.2500, L501.9520, L501.5200 ####[facility] [address] [place], [address] Creatinine [Mass/Vol] 0.87 mg/dL Normal 0.70-1.20 [facility] Comment on above: Order Comment: 103.2 Performed By: #### L 100.0100, L506.1001, L503.0106, L500.2500, L501.9520, L501.5200 ####[facility] [address] [place], [address] GAP 12 Normal 5-15 [facility] Comment on above: Order Comment: 103.2 Performed By: #### L 100.0100, L506.1001, L503.0106, L500.2500, L501.9520, L501.5200 ####[facility] [address] [place], [address] GFR/1.73 sq M.predicted among non-blacks MDRD (S/P/Bld) [Vol rate/Area] 90 mL/min/{1.73_m2} Normal >60 [facility] Comment on above: Order Comment: 103.2 Result Comment: mL/m in/1.73m2 CKD-EPI Creatinine Equation (2020) Performed By: #### L 100.0100, L506.1001, L503.0106, L500.2500, L501.9520, L501.5200 ####[facility] [address] [place], [address] Glucose [Mass/Vol] 121 mg/dL High 70-99 [facility] Comment on above: Order Comment: 103.2 Performed By: #### L 100.0100, L506.1001, L503.0106, L500.2500, L501.9520, L501.5200 ####[facility] [address] [place], [address] Potassium [Moles/Vol] 4.2 mmol/L Normal 3.3-5.1 [facility] Comment on above: Order Comment: 103.2 Performed By: #### L 100.0100, L506.1001, L503.0106, L500.2500, L501.9520, L501.5200 ####[facility] [address] [place], [address] Sodium [Moles/Vol] 134 mmol/L Normal 133-145 [facility] Comment on above: Order Comment: 103.2 Performed By: #### L 100.0100, L506.1001, L503.0106, L500.2500, L501.9520, L501.5200 ####[facility] [address] [place], [address] Urea nitrogen [Mass/Vol] 20 mg/dL High 4-19 [facility] Comment on above: Order Comment: 103.2 Performed By: #### L 100.0100, L506.1001, L503.0106, L500.2500, L501.9520, L501.5200 ####[facility] [address] [place], [address] CBC W/Diff, Automatedon 03-2 Absolute Lymph 1.32 X10 3/uL Normal 0.83-4.51 [facility] Comment on above: Order Comment: 103.2 Performed By: #### L 100.0100, L506.1001, L503.0106, L500.2500, L501.9520, L501.5200 ####[facility] [address] [place], [address] Absolute Neut 3.2 X10 3/uL Normal 2.0-7.7 [facility] Comment on above: Order Comment: 103.2 Performed By: #### L 100.0100, L506.1001, L503.0106, L500.2500, L501.9520, L501.5200 ####[facility] [address] [place], [address] Basophils/100 WBC (Bld) 1.0 % Normal 0-1 [facility] Comment on above: Order Comment: 103.2 Performed By: #### L 100.0100, L506.1001, L503.0106, L500.2500, L501.9520, L501.5200 ####[facility] [address] [place], [address] Eosinophils/100 WBC (Bld) 4.4 % Normal 0-5 [facility] Comment on above: Order Comment: 103.2 Performed By: #### L 100.0100, L506.1001, L503.0106, L500.2500, L501.9520, L501.5200 ####[facility] [address] [place], [address] Erythrocyte distribution width (RBC) [Ratio] 13.2 % Normal 11.6-14.6 [facility] Comment on above: Order Comment: 103.2 Performed By: #### L 100.0100, L506.1001, L503.0106, L500.2500, L501.9520, L501.5200 ####[facility] [address] [place], [address] Hematocrit (Bld) [Volume fraction] 42.5 % Normal 40-54 [facility] Comment on above: Order Comment: 103.2 Performed By: #### L 100.0100, L506.1001, L503.0106, L500.2500, L501.9520, L501.5200 ####[facility] [address] [place], [address] Hemoglobin (Bld) [Mass/Vol] 14.5 g/dL Normal 13.0-16.5 [facility] Comment on above: Order Comment: 103.2 Performed By: #### L 100.0100, L506.1001, L503.0106, L500.2500, L501.9520, L501.5200 ####[facility] [address] [place], [address] IG% 0.700 Normal 0.0-0.9 [facility] Comment on above: Order Comment: 103.2 Result Comment: IG% - Immature Granulocytes (promyelocytes, myelocytes andmetamyelocytes) > 1% indicates that a LEFT SHIFT is Present. Performed By: #### L 100.0100, L506.1001, L503.0106, L500.2500, L501.9520, L501.5200 ####[facility] [address] [place], [address] Lymphocytes/100 WBC (Bld) 22.4 % Normal 19-41 [facility] Comment on above: Order Comment: 103.2 Performed By: #### L 100.0100, L506.1001, L503.0106, L500.2500, L501.9520, L501.5200 ####[facility] [address] [place], [address] MCH (RBC) [Entitic mass] 33.3 pg High 27.0-32.0 [facility] Comment on above: Order Comment: 103.2 Performed By: #### L 100.0100, L506.1001, L503.0106, L500.2500, L501.9520, L501.5200 ####[facility] [address] [place], [address] MCHC (RBC) [Mass/Vol] 34.1 g/dL Normal 32-36 [facility] Comment on above: Order Comment: 103.2 Performed By: #### L 100.0100, L506.1001, L503.0106, L500.2500, L501.9520, L501.5200 ####[facility] [address] [place], [address] MCV (RBC) [Entitic vol] 97.7 fL High 80-94 [facility] Comment on above: Order Comment: 103.2 Performed By: #### L 100.0100, L506.1001, L503.0106, L500.2500, L501.9520, L501.5200 ####[facility] [address] [place], [address] Monocytes/100 WBC (Bld) 17.5 % High 0-10 [facility] Comment on above: Order Comment: 103.2 Performed By: #### L 100.0100, L506.1001, L503.0106, L500.2500, L501.9520, L501.5200 ####[facility] [address] [place], [address] Neutrophils/100 WBC (Bld) 54.0 % Normal 47-70 [facility] Comment on above: Order Comment: 103.2 Performed By: #### L 100.0100, L506.1001, L503.0106, L500.2500, L501.9520, L501.5200 ####[facility] [address] [place], [address] Nucleated RBC (Bld) [#/Vol] 0 10*3/uL Normal 0-5 [facility] Comment on above: Order Comment: 103.2 Performed By: #### L 100.0100, L506.1001, L503.0106, L500.2500, L501.9520, L501.5200 ####[facility] [address] [place], [address] Platelet mean volume (Bld) [Entitic vol] 10.2 fL Normal 6.2-12.0 [facility] Comment on above: Order Comment: 103.2 Performed By: #### L 100.0100, L506.1001, L503.0106, L500.2500, L501.9520, L501.5200 ####[facility] [address] [place], [address] Platelets (Bld) [#/Vol] 172 10*3/uL Normal 150-450 [facility] Comment on above: Order Comment: 103.2 Performed By: #### L 100.0100, L506.1001, L503.0106, L500.2500, L501.9520, L501.5200 ####[facility] [address] [place], [address] RBC (Bld) [#/Vol] 4.35 10*6/uL Low 4.6-6.2 [facility] Comment on above: Order Comment: 103.2 Performed By: #### L 100.0100, L506.1001, L503.0106, L500.2500, L501.9520, L501.5200 ####[facility] [address] [place], [address] RDW SD 47.0 fl High 35.1-43.9 [facility] Comment on above: Order Comment: 103.2 Performed By: #### L 100.0100, L506.1001, L503.0106, L500.2500, L501.9520, L501.5200 ####[facility] [address] [place], [address] WBC (Bld) [#/Vol] 5.9 10*3/uL Normal 4.4-11.0 [facility] Comment on above: Order Comment: 103.2 Performed By: #### L 100.0100, L506.1001, L503.0106, L500.2500, L501.9520, L501.5200 ####[facility] [address] [place], [address] L503.0106on 04-30-2024 Cobalamin (Vitamin B12) [Mass/Vol] 522 pg/mL Normal 180-914 [facility] Comment on above: Order Comment: 103.2 Performed By: #### L 100.0100, L506.1001, L503.0106, L500.2500, L501.9520, L501.5200 ####[facility] [address] [place], [place], [address] L506.1001on 04-30-2024 Vitamin D 25-OH 52.8 ng/mL Normal 30-100 [facility] Comment on above: Order Comment: 103.2 Result Comment: Sandra min D StatusDeficiency: <20 ng/mL (50nmol/L)Insufficiency: 20-30 ng/mL (50-75 nmol/L)Sufficiency: 30-100 ng/mL (75-250 nmol/L)Toxicity: >100 ng/mL (>250 nmol/L) Performed By: #### L 100.0100, L506.1001, L503.0106, L500.2500, L501.9520, L501.5200 ####[facility] [address] [place], [address] Magnesiumon 04-30-2024 Magnesium [Mass/Vol] 2.1 mg/dL Normal 1.5-2.2 [facility] Comment on above: Order Comment: 103.2 Performed By: #### L 100.0100, L506.1001, L503.0106, L500.2500, L501.9520, L501.5200 ####[facility] [address] [place], [address] Thyroid Stim Hormone (TSH)on 04-30-2024 TSH 3.020 uIU/mL Normal 0.300-4.200 [facility] Comment on above: Order Comment: 103.2 Performed By: #### L 100.0100, L506.1001, L503.0106, L500.2500, L501.9520, L501.5200 ####[facility] [address] [place], [address] Basic Metabolic Profile (BMP )on 04-23-2024 BUN/CRE 21.4 RATIO High 10-20 [facility] Comment on above: Performed By: #### L 100.0100, L500.2500 ####[facility] [address] [place], [address] Calcium [Mass/Vol] 8.9 mg/dL Normal 7.6-11.0 [facility] Comment on above: Performed By: #### L 100.0100, L500.2500 ####[facility] [address] [place], [address] Chloride [Moles/Vol] 97 mmol/L Low 98-108 [facility] Comment on above: Performed By: #### L 100.0100, L500.2500 ####[facility] [address] [place], [address] CO2 [Moles/Vol] 25.6 mmol/L Normal 21.0-32.0 [facility] Comment on above: Performed By: #### L 100.0100, L500.2500 ####[facility] [address] [place], [address] Creatinine [Mass/Vol] 0.78 mg/dL Normal 0.70-1.20 [facility] Comment on above: Performed By: #### L 100.0100, L500.2500 ####[facility] [address] [place], [address] ECRCL 86.71 ml/min Normal 50-250 [facility] Comment on above: Performed By: #### L 100.0100, L500.2500 ####[facility] [address] [place], [address] GAP 11 Normal 5-15 [facility] Comment on above: Performed By: #### L 100.0100, L500.2500 ####[facility] [address] [place], [address] GFR/1.73 sq M.predicted among non-blacks MDRD (S/P/Bld) [Vol rate/Area] 93 mL/min/{1.73_m2} Normal >60 [facility] Comment on above: Result Comment: mL/m in/1.73m2 CKD-EPI Creatinine Equation (2020) Performed By: #### L 100.0100, L500.2500 ####[facility] [address] [place], [address] Glucose [Mass/Vol] 95 mg/dL Normal 70-99 [facility] Comment on above: Performed By: #### L 100.0100, L500.2500 ####[facility] [address] [place], [address] Potassium [Moles/Vol] 4.7 mmol/L Normal 3.3-5.1 [facility] Comment on above: Performed By: #### L 100.0100, L500.2500 ####[facility] [address] [place], [address] Sodium [Moles/Vol] 133 mmol/L Normal 133-145 [facility] Comment on above: Performed By: #### L 100.0100, L500.2500 ####[facility] [address] [place], [address] Urea nitrogen [Mass/Vol] 17 mg/dL Normal 4-19 [facility] Comment on above: Performed By: #### L 100.0100, L500.2500 ####[facility] [address] [place], [address] CBC W/Diff, Automatedon 04-07 Absolute Lymph 0.88 X10 3/uL Normal 0.83-4.51 [facility] Comment on above: Performed By: #### L 100.0100, L500.2500 ####[facility] [address] [place], [address] Absolute Neut 6.6 X10 3/uL Normal 2.0-7.7 [facility] Comment on above: Performed By: #### L 100.0100, L500.2500 ####[facility] [address] [place], [address] Basophils/100 WBC (Bld) 0.4 % Normal 0-1 [facility] Comment on above: Performed By: #### L 100.0100, L500.2500 ####[facility] [address] [place], [address] Eosinophils/100 WBC (Bld) 0.1 % Normal 0-5 [facility] Comment on above: Performed By: #### L 100.0100, L500.2500 ####[facility] [address] [place], [address] Erythrocyte distribution width (RBC) [Ratio] 13.7 % Normal 11.6-14.6 [facility] Comment on above: Performed By: #### L 100.0100, L500.2500 ####[facility] [address] [place], [address] Hematocrit (Bld) [Volume fraction] 40.4 % Normal 40-54 [facility] Comment on above: Performed By: #### L 100.0100, L500.2500 ####[facility] [address] [place], [address] Hemoglobin (Bld) [Mass/Vol] 13.7 g/dL Normal 13.0-16.5 [facility] Comment on above: Performed By: #### L 100.0100, L500.2500 ####[facility] [address] [place], [address] IG% 0.600 Normal 0.0-0.9 [facility] Comment on above: Result Comment: IG% - Immature Granulocytes (promyelocytes, myelocytes andmetamyelocytes) > 1% indicates that a LEFT SHIFT is Present. Performed By: #### L 100.0100, L500.2500 ####[facility] [address] [place], [address] Lymphocytes/100 WBC (Bld) 10.4 % Low 19-41 [facility] Comment on above: Performed By: #### L 100.0100, L500.2500 ####[facility] [address] [place], [address] MCH (RBC) [Entitic mass] 32.5 pg High 27.0-32.0 [facility] Comment on above: Performed By: #### L 100.0100, L500.2500 ####[facility] [address] [place], [address] MCHC (RBC) [Mass/Vol] 33.9 g/dL Normal 32-36 [facility] Comment on above: Performed By: #### L 100.0100, L500.2500 ####[facility] [address] [place], [address] MCV (RBC) [Entitic vol] 95.7 fL High 80-94 [facility] Comment on above: Performed By: #### L 100.0100, L500.2500 ####[facility] [address] [place], [address] Monocytes/100 WBC (Bld) 11.0 % High 0-10 [facility] Comment on above: Performed By: #### L 100.0100, L500.2500 ####[facility] [address] [place], [address] Neutrophils/100 WBC (Bld) 77.5 % High 47-70 [facility] Comment on above: Performed By: #### L 100.0100, L500.2500 ####[facility] [address] [place], [address] Nucleated RBC (Bld) [#/Vol] 0 10*3/uL Normal 0-5 [facility] Comment on above: Performed By: #### L 100.0100, L500.2500 ####[facility] [address] [place], [address] Platelet mean volume (Bld) [Entitic vol] 9.9 fL Normal 6.2-12.0 [facility] Comment on above: Performed By: #### L 100.0100, L500.2500 ####[facility] [address] [place], [address] Platelets (Bld) [#/Vol] 148 10*3/uL Low 150-450 [facility] Comment on above: Performed By: #### L 100.0100, L500.2500 ####[facility] [address] [place], [address] RBC (Bld) [#/Vol] 4.22 10*6/uL Low 4.6-6.2 [facility] Comment on above: Performed By: #### L 100.0100, L500.2500 ####[facility] [address] [place], [address] RDW SD 48.1 fl High 35.1-43.9 [facility] Comment on above: Performed By: #### L 100.0100, L500.2500 ####[facility] [address] [place], [address] WBC (Bld) [#/Vol] 8.5 10*3/uL Normal 4.4-11.0 [facility] [facility] Comment on above: Performed By: #### L 100.0100, L500.2500 ####[facility] [address] [place], [address] Pelvis (Routine)on 5 Pelvis (Routine) Normal [facility] 12 Lead EKGon 04-22-2024 12 Lead EKG Normal [facility] Alcohol, Blood (Medical)-Ser umon 04-22-2024 SERUM ETOH 91.6 mg/dL High <=10.0 [facility] Comment on above: Result Comment: This test is for medical purposes only. The legaldefinition of intoxication varies according to local law. Performed By: #### L 501.9100 ####[facility] [address] [place], [address] Basic Metabolic Profile (BMP )on 04-22-2024 BUN/CRE 16.9 RATIO Normal 10-20 [facility] Comment on above: Performed By: #### L 500.3400, L100.0100, L500.2500, L501.2450, L501.4021 ####[facility] [address] [place], [address] Calcium [Mass/Vol] 9.2 mg/dL Normal 7.6-11.0 [facility] Comment on above: Performed By: #### L 500.3400, L100.0100, L500.2500, L501.2450, L501.4021 ####[facility] [address] [place], [address] Chloride [Moles/Vol] 99 mmol/L Normal 98-108 [facility] Comment on above: Performed By: #### L 500.3400, L100.0100, L500.2500, L501.2450, L501.4021 ####[facility] [address] [place], [address] CO2 [Moles/Vol] 25.2 mmol/L Normal 21.0-32.0 [facility] Comment on above: Performed By: #### L 500.3400, L100.0100, L500.2500, L501.2450, L501.4021 ####[facility] [address] [place], [address] Creatinine [Mass/Vol] 0.93 mg/dL Normal 0.70-1.20 [facility] Comment on above: Performed By: #### L 500.3400, L100.0100, L500.2500, L501.2450, L501.4021 ####[facility] [address] [place], [address] ECRCL 86.05 ml/min Normal 50-250 [facility] Comment on above: Performed By: #### L 500.3400, L100.0100, L500.2500, L501.2450, L501.4021 ####[facility] [address] [place], [address] GAP 14 Normal 5-15 [facility] Comment on above: Performed By: #### L 500.3400, L100.0100, L500.2500, L501.2450, L501.4021 ####[facility] [address] [place], [address] GFR/1.73 sq M.predicted among non-blacks MDRD (S/P/Bld) [Vol rate/Area] 86 mL/min/{1.73_m2} Normal >60 [facility] Comment on above: Result Comment: mL/m in/1.73m2 CKD-EPI Creatinine Equation (2020) Performed By: #### L 500.3400, L100.0100, L500.2500, L501.2450, L501.4021 ####[facility] [address] [place], [address] Glucose [Mass/Vol] 79 mg/dL Normal 70-99 [facility] Comment on above: Performed By: #### L 500.3400, L100.0100, L500.2500, L501.2450, L501.4021 ####[facility] [address] [place], [address] Potassium [Moles/Vol] 4.3 mmol/L Normal 3.3-5.1 [facility] Comment on above: Performed By: #### L 500.3400, L100.0100, L500.2500, L501.2450, L501.4021 ####[facility] [address] [place], [address] Sodium [Moles/Vol] 138 mmol/L Normal 133-145 [facility] Comment on above: Performed By: #### L 500.3400, L100.0100, L500.2500, L501.2450, L501.4021 ####[facility] [address] [place], [address] Urea nitrogen [Mass/Vol] 16 mg/dL Normal 4-19 [facility] Comment on above: Performed By: #### L 500.3400, L100.0100, L500.2500, L501.2450, L501.4021 ####[facility] [address] [place], [address] Brain/Head without Contrasto n 04-22-2024 Brain/Head without Contrast Normal [facility] CBC W/Diff, Automatedon - Absolute Lymph 1.32 X10 3/uL Normal 0.83-4.51 [facility] Comment on above: Performed By: #### L 500.3400, L100.0100, L500.2500, L501.2450, L501.4021 ####[facility] [address] [place], [address] Absolute Neut 12.2 X10 3/uL High 2.0-7.7 [facility] Comment on above: Performed By: #### L 500.3400, L100.0100, L500.2500, L501.2450, L501.4021 ####[facility] [address] [place], [address] Basophils/100 WBC (Bld) 0.2 % Normal 0-1 [facility] Comment on above: Performed By: #### L 500.3400, L100.0100, L500.2500, L501.2450, L501.4021 ####[facility] [address] [place], [address] Eosinophils/100 WBC (Bld) 0.1 % Normal 0-5 [facility] Comment on above: Performed By: #### L 500.3400, L100.0100, L500.2500, L501.2450, L501.4021 ####[facility] [address] [place], [address] Erythrocyte distribution width (RBC) [Ratio] 13.6 % Normal 11.6-14.6 [facility] Comment on above: Performed By: #### L 500.3400, L100.0100, L500.2500, L501.2450, L501.4021 ####[facility] [address] [place], [address] Hematocrit (Bld) [Volume fraction] 42.9 % Normal 40-54 [facility] Comment on above: Performed By: #### L 500.3400, L100.0100, L500.2500, L501.2450, L501.4021 ####[facility] [address] [place], [address] Hemoglobin (Bld) [Mass/Vol] 14.5 g/dL Normal 13.0-16.5 [facility] Comment on above: Performed By: #### L 500.3400, L100.0100, L500.2500, L501.2450, L501.4021 ####[facility] [address] [place], [address] IG% 1.000 High 0.0-0.9 [facility] Comment on above: Result Comment: IG% - Immature Granulocytes (promyelocytes, myelocytes andmetamyelocytes) > 1% indicates that a LEFT SHIFT is Present. Performed By: #### L 500.3400, L100.0100, L500.2500, L501.2450, L501.4021 ####[facility] [address] [place], [address] Lymphocytes/100 WBC (Bld) 9.0 % Low 19-41 [facility] Comment on above: Performed By: #### L 500.3400, L100.0100, L500.2500, L501.2450, L501.4021 ####[facility] [address] [place], [address] MCH (RBC) [Entitic mass] 32.6 pg High 27.0-32.0 [facility] Comment on above: Performed By: #### L 500.3400, L100.0100, L500.2500, L501.2450, L501.4021 ####[facility] [address] [place], [address] MCHC (RBC) [Mass/Vol] 33.8 g/dL Normal 32-36 [facility] Comment on above: Performed By: #### L 500.3400, L100.0100, L500.2500, L501.2450, L501.4021 ####[facility] [address] [place], [address] MCV (RBC) [Entitic vol] 96.4 fL High 80-94 [facility] Comment on above: Performed By: #### L 500.3400, L100.0100, L500.2500, L501.2450, L501.4021 ####[facility] [address] [place], [address] Monocytes/100 WBC (Bld) 7.0 % Normal 0-10 [facility] Comment on above: Performed By: #### L 500.3400, L100.0100, L500.2500, L501.2450, L501.4021 ####[facility] [address] [place], [address] Neutrophils/100 WBC (Bld) 82.7 % High 47-70 [facility] Comment on above: Performed By: #### L 500.3400, L100.0100, L500.2500, L501.2450, L501.4021 ####[facility] [address] [place], [address] Nucleated RBC (Bld) [#/Vol] 0 10*3/uL Normal 0-5 [facility] Comment on above: Performed By: #### L 500.3400, L100.0100, L500.2500, L501.2450, L501.4021 ####[facility] [address] [place], [address] Platelet mean volume (Bld) [Entitic vol] 9.8 fL Normal 6.2-12.0 [facility] Comment on above: Performed By: #### L 500.3400, L100.0100, L500.2500, L501.2450, L501.4021 ####[facility] [address] [place], [address] Platelets (Bld) [#/Vol] 212 10*3/uL Normal 150-450 [facility] Comment on above: Performed By: #### L 500.3400, L100.0100, L500.2500, L501.2450, L501.4021 ####[facility] [address] [place], [address] RBC (Bld) [#/Vol] 4.45 10*6/uL Low 4.6-6.2 [facility] Comment on above: Performed By: #### L 500.3400, L100.0100, L500.2500, L501.2450, L501.4021 ####[facility] [address] [place], [address] RDW SD 48.8 fl High 35.1-43.9 [facility] Comment on above: Performed By: #### L 500.3400, L100.0100, L500.2500, L501.2450, L501.4021 ####[facility] [address] [place], [address] WBC (Bld) [#/Vol] 14.7 10*3/uL High 4.4-11.0 [facility] Comment on above: Performed By: #### L 500.3400, L100.0100, L500.2500, L501.2450, L501.4021 ####[facility] [address] [place], [place], [address] Chest 1 View (Portable)on Chest 1 View (Portable) Normal [facility] Emergency Department Summary on 04-22-2024 Emergency Department Summary Normal [facility] Extremity Lower without Cont raon 04-22-2024 Extremity Lower without Contra Normal [facility] H AND P Exam - Hospitaliston 04-22-2024 H&P Exam - Hospitalist Normal [facility] HIP, UNI W/ Pelvis 2-3 Views on 04-22-2024 HIP, UNI W/ Pelvis 2-3 Views Normal [facility] L499.0042on 04-22-2024 Trop T High Sen 18 ng/L Normal <=22 [facility] Comment on above: Performed By: #### L 499.0042 ####[facility] [address] [place], [address] L501.4021on 04-22-2024 Trop T High Sen 18 ng/L Normal <=22 [facility] Comment on above: Performed By: #### L 500.3400, L100.0100, L500.2500, L501.2450, L501.4021 ####[facility] [address] [place], [address] Lipaseon 04-22-2024 Lipase [Catalytic activity/Vol] 59 U/L Normal 13-75 [facility] Comment on above: Result Comment: Nagi nelson note:LIPASE revised reference range effective 22.New Lipase methodology. Expected to produce lower valuesthan the previous assay method.NEW Reference Range: 13 - 75 U/L Performed By: #### L 500.3400, L100.0100, L500.2500, L501.2450, L501.4021 ####[facility] [address] [place], [address] Liver Profileon 04-22-2024 Albumin [Mass/Vol] 4.2 g/dL Normal 3.4-4.8 [facility] Comment on above: Performed By: #### L 500.3400, L100.0100, L500.2500, L501.2450, L501.4021 ####[facility] [address] [place], [address] ALK PHOS 69 U/L Normal 40-129 [facility] Comment on above: Performed By: #### L 500.3400, L100.0100, L500.2500, L501.2450, L501.4021 ####[facility] [address] [place], [address] ALT [Catalytic activity/Vol] 29 U/L Normal <=46 [facility] Comment on above: Performed By: #### L 500.3400, L100.0100, L500.2500, L501.2450, L501.4021 ####[facility] [address] [place], [address] AST [Catalytic activity/Vol] 33 U/L Normal <=37 [facility] Comment on above: Performed By: #### L 500.3400, L100.0100, L500.2500, L501.2450, L501.4021 ####[facility] [address] [place], [address] Bilirubin [Mass/Vol] 0.56 mg/dL Normal 0.00-1.30 [facility] Comment on above: Performed By: #### L 500.3400, L100.0100, L500.2500, L501.2450, L501.4021 ####[facility] [address] [place], [address] Bilirubin.direct [Mass/Vol] 0.32 mg/dL High 0.00-0.30 [facility] Comment on above: Performed By: #### L 500.3400, L100.0100, L500.2500, L501.2450, L501.4021 ####[facility] [address] [place], [address] Globulin (S) [Mass/Vol] 2.9 g/dL Normal 2.2-4.2 [facility] Comment on above: Performed By: #### L 500.3400, L100.0100, L500.2500, L501.2450, L501.4021 ####[facility] [address] [place], [address] T PROT 7.1 g/dL Normal 5.9-8.4 [facility] Comment on above: Performed By: #### L 500.3400, L100.0100, L500.2500, L501.2450, L501.4021 ####[facility] [address] [place], [address] Lumbar Spine 2 or 3 Viewson 04-22-2024 Lumbar Spine 2 or 3 Views Normal [facility] Prothrombin Time w/INRon INR Coag (PPP) [Relative time] 0.9 {INR} Normal [facility] Comment on above: Performed By: #### L 300.3900 ####[facility] [address] [place], [address] PT Coag (PPP) [Time] 12.3 s Normal 11.7-14.9 [facility] Comment on above: Performed By: #### L 300.3900 ####[facility] [address] [place], [address] Spine Cervical without Contr ason 04-22-2024 Spine Cervical without Contras Normal [facility] CBC W/Diff, Automatedon 02-08 Absolute Lymph 0.78 X10 3/uL Low 0.83-4.51 [facility] Comment on above: Performed By: #### L 100.0100, L500.4050, L501.2450 ####[facility] [address] [place], [address] Absolute Neut 3.2 X10 3/uL Normal 2.0-7.7 [facility] Comment on above: Performed By: #### L 100.0100, L500.4050, L501.2450 ####[facility] [address] [place], [address] Basophils/100 WBC (Bld) 0.7 % Normal 0-1 [facility] Comment on above: Performed By: #### L 100.0100, L500.4050, L501.2450 ####[facility] [address] [place], [address] Eosinophils/100 WBC (Bld) 0.2 % Normal 0-5 [facility] Comment on above: Performed By: #### L 100.0100, L500.4050, L501.2450 ####[facility] [address] [place], [address] Erythrocyte distribution width (RBC) [Ratio] 13.7 % Normal 11.6-14.6 [facility] Comment on above: Performed By: #### L 100.0100, L500.4050, L501.2450 ####[facility] [address] [place], [address] Hematocrit (Bld) [Volume fraction] 44.9 % Normal 40-54 [facility] Comment on above: Performed By: #### L 100.0100, L500.4050, L501.2450 ####[facility] [address] [place], [address] Hemoglobin (Bld) [Mass/Vol] 14.9 g/dL Normal 13.0-16.5 [facility] Comment on above: Performed By: #### L 100.0100, L500.4050, L501.2450 ####[facility] [address] [place], [address] IG% 0.400 Normal 0.0-0.9 [facility] Comment on above: Result Comment: IG% - Immature Granulocytes (promyelocytes, myelocytes andmetamyelocytes) > 1% indicates that a LEFT SHIFT is Present. Performed By: #### L 100.0100, L500.4050, L501.2450 ####[facility] [address] [place], [address] Lymphocytes/100 WBC (Bld) 17.0 % Low 19-41 [facility] Comment on above: Performed By: #### L 100.0100, L500.4050, L501.2450 ####[facility] [address] [place], [address] MCH (RBC) [Entitic mass] 32.0 pg Normal 27.0-32.0 [facility] Comment on above: Performed By: #### L 100.0100, L500.4050, L501.2450 ####[facility] [address] [place], [address] MCHC (RBC) [Mass/Vol] 33.2 g/dL Normal 32-36 [facility] Comment on above: Performed By: #### L 100.0100, L500.4050, L501.2450 ####[facility] [address] [place], [address] MCV (RBC) [Entitic vol] 96.4 fL High 80-94 [facility] Comment on above: Performed By: #### L 100.0100, L500.4050, L501.2450 ####[facility] [address] [place], [address] Monocytes/100 WBC (Bld) 12.4 % High 0-10 [facility] Comment on above: Performed By: #### L 100.0100, L500.4050, L501.2450 ####[facility] [address] [place], [address] Neutrophils/100 WBC (Bld) 69.3 % Normal 47-70 [facility] Comment on above: Performed By: #### L 100.0100, L500.4050, L501.2450 ####[facility] [address] [place], [address] Nucleated RBC (Bld) [#/Vol] 0 10*3/uL Normal 0-5 [facility] Comment on above: Performed By: #### L 100.0100, L500.4050, L501.2450 ####[facility] [address] [place], [address] Platelet mean volume (Bld) [Entitic vol] 9.6 fL Normal 6.2-12.0 [facility] Comment on above: Performed By: #### L 100.0100, L500.4050, L501.2450 ####[facility] [address] [place], [address] Platelets (Bld) [#/Vol] 240 10*3/uL Normal 150-450 [facility] Comment on above: Performed By: #### L 100.0100, L500.4050, L501.2450 ####[facility] [address] [place], [address] RBC (Bld) [#/Vol] 4.66 10*6/uL Normal 4.6-6.2 [facility] Comment on above: Performed By: #### L 100.0100, L500.4050, L501.2450 ####[facility] [address] [place], [address] RDW SD 48.6 fl High 35.1-43.9 [facility] Comment on above: Performed By: #### L 100.0100, L500.4050, L501.2450 ####[facility] [address] [place], [address] WBC (Bld) [#/Vol] 4.6 10*3/uL Normal 4.4-11.0 [facility] Comment on above: Performed By: #### L 100.0100, L500.4050, L501.2450 ####[facility] [address] [place], [address] Comprehensive Metabolic Prof [facility] 03-07-2024 Albumin [Mass/Vol] 3.9 g/dL Normal 3.2-5.0 [facility] Comment on above: Performed By: #### L 100.0100, L500.4050, L501.2450 ####[facility] [address] [place], [address] Albumin/Globulin [Mass ratio] 0.9 {ratio} Normal 0.9-2.4 [facility] Comment on above: Performed By: #### L 100.0100, L500.4050, L501.2450 ####[facility] [address] [place], [address] ALK P 77 U/L Normal 45-117 [facility] Comment on above: Performed By: #### L 100.0100, L500.4050, L501.2450 ####[facility] [address] [place], [address] ALT [Catalytic activity/Vol] 56 U/L Normal 16-61 [facility] Comment on above: Performed By: #### L 100.0100, L500.4050, L501.2450 ####[facility] [address] [place], [address] AST [Catalytic activity/Vol] 67 U/L High 15-37 [facility] Comment on above: Performed By: #### L 100.0100, L500.4050, L501.2450 ####[facility] [address] [place], [address] Bilirubin [Mass/Vol] 1.10 mg/dL High 0.20-1.00 [facility] Comment on above: Result Comment: For patients on eltrombopag therapy, use of Dimension [place] TBIL is not recommended. Performed By: #### L 100.0100, L500.4050, L501.2450 ####[facility] [address] [place], [address] BUN/CRE 8.1 RATIO Low 10-20 [facility] Comment on above: Performed By: #### L 100.0100, L500.4050, L501.2450 ####[facility] [address] [place], [address] CA,Total 10.2 mg/dL High 8.5-10.1 [facility] Comment on above: Performed By: #### L 100.0100, L500.4050, L501.2450 ####[facility] [address] [place], [address] Chloride [Moles/Vol] 95 mmol/L Low 98-107 [facility] Comment on above: Performed By: #### L 100.0100, L500.4050, L501.2450 ####[facility] [address] [place], [address] CO2 [Moles/Vol] 34.0 mmol/L High 21.0-32.0 [facility] Comment on above: Performed By: #### L 100.0100, L500.4050, L501.2450 ####[facility] [address] [place], [address] Creatinine [Mass/Vol] 0.99 mg/dL Normal 0.70-1.30 [facility] Comment on above: Result Comment: The validity of the calculated GFR GFRAA in patients over70 years has not been determined. Clinical correlation isessential. Performed By: #### L 100.0100, L500.4050, L501.2450 ####[facility] [address] [place], [address] ECRCL 80.87 ml/min Normal [facility] Comment on above: Performed By: #### L 100.0100, L500.4050, L501.2450 ####[facility] [address] [place], [address] EST GFR - AA 94 mL/min Normal >60 [facility] Comment on above: Result Comment: Afri can Montserratian GFR Calc Performed By: #### L 100.0100, L500.4050, L501.2450 ####[facility] [address] [place], [address] GAP 6 Normal 5-15 [facility] Comment on above: Performed By: #### L 100.0100, L500.4050, L501.2450 ####[facility] [address] [place], [address] GFR/1.73 sq M.predicted among non-blacks MDRD (S/P/Bld) [Vol rate/Area] 78 mL/min/{1.73_m2} Normal >60 [facility] Comment on above: Result Comment: Non- GFR Calc Performed By: #### L 100.0100, L500.4050, L501.2450 ####[facility] [address] [place], [address] Globulin (S) [Mass/Vol] 4.2 g/dL Normal 2.2-4.2 [facility] Comment on above: Performed By: #### L 100.0100, L500.4050, L501.2450 ####[facility] [address] [place], [address] Glucose [Mass/Vol] 101 mg/dL Normal 74-106 [facility] Comment on above: Result Comment: Fast ing Glucose result from 100 to 125 mg/dLsuggests IMPAIRED HOMEOSTASIS per A.D.A. criteria. Performed By: #### L 100.0100, L500.4050, L501.2450 ####[facility] [address] [place], [address] Potassium [Moles/Vol] 3.7 mmol/L Normal 3.5-5.1 [facility] Comment on above: Performed By: #### L 100.0100, L500.4050, L501.2450 ####[facility] [address] [place], [address] Sodium [Moles/Vol] 135 mmol/L Low 136-145 [facility] Comment on above: Performed By: #### L 100.0100, L500.4050, L501.2450 ####[facility] [address] [place], [address] T PROT 8.1 g/dL Normal 6.4-8.2 [facility] Comment on above: Performed By: #### L 100.0100, L500.4050, L501.2450 ####[facility] [address] [place], [address] Urea nitrogen [Mass/Vol] 8 mg/dL Normal 7-18 [facility] Comment on above: Performed By: #### L 100.0100, L500.4050, L501.2450 ####[facility] [address] [place], [address] Emergency Department Summary on 03-07-2024 Emergency Department Summary Normal [facility] Lipaseon 03-07-2024 Lipase [Catalytic activity/Vol] 58 U/L Normal 13-75 [facility] Comment on above: Result Comment: Nagi nelson note:LIPASE revised reference range effective 22.New Lipase methodology. Expected to produce lower valuesthan the previous assay method.NEW Reference Range: 13 - 75 U/L Performed By: #### L 100.0100, L500.4050, L501.2450 ####[facility] [address] [place], [address] CBC W/Diff, Automatedon 02-08 Absolute Lymph 1.18 X10 3/uL Normal 0.83-4.51 [facility] Comment on above: Performed By: #### L 100.0100 ####[facility] [address] [place], [address] Absolute Neut 2.0 X10 3/uL Normal 2.0-7.7 [facility] Comment on above: Performed By: #### L 100.0100 ####[facility] [address] [place], [address] Basophils/100 WBC (Bld) 1.2 % High 0-1 [facility] Comment on above: Performed By: #### L 100.0100 ####[facility] [address] [place], [address] Eosinophils/100 WBC (Bld) 2.1 % Normal 0-5 [facility] Comment on above: Performed By: #### L 100.0100 ####[facility] [address] [place], [address] Erythrocyte distribution width (RBC) [Ratio] 13.8 % Normal 11.6-14.6 [facility] Comment on above: Performed By: #### L 100.0100 ####[facility] [address] [place], [address] Hematocrit (Bld) [Volume fraction] 42.2 % Normal 40-54 [facility] Comment on above: Performed By: #### L 100.0100 ####[facility] [address] [place], [address] Hemoglobin (Bld) [Mass/Vol] 13.8 g/dL Normal 13.0-16.5 [facility] Comment on above: Performed By: #### L 100.0100 ####[facility] [address] [place], [address] IG% 0.000 Normal 0.0-0.9 [facility] Comment on above: Result Comment: IG% - Immature Granulocytes (promyelocytes, myelocytes andmetamyelocytes) > 1% indicates that a LEFT SHIFT is Present. Performed By: #### L 100.0100 ####[facility] [address] [place], [address] Lymphocytes/100 WBC (Bld) 28.2 % Normal 19-41 [facility] Comment on above: Performed By: #### L 100.0100 ####[facility] [address] [place], [address] MCH (RBC) [Entitic mass] 32.9 pg High 27.0-32.0 [facility] Comment on above: Performed By: #### L 100.0100 ####[facility] [address] [place], [address] MCHC (RBC) [Mass/Vol] 32.7 g/dL Normal 32-36 [facility] Comment on above: Performed By: #### L 100.0100 ####[facility] [address] [place], [address] MCV (RBC) [Entitic vol] 100.5 fL High 80-94 [facility] Comment on above: Performed By: #### L 100.0100 ####[facility] [address] [place], [address] Monocytes/100 WBC (Bld) 20.8 % High 0-10 [facility] Comment on above: Performed By: #### L 100.0100 ####[facility] [address] [place], [address] Neutrophils/100 WBC (Bld) 47.7 % Normal 47-70 [facility] Comment on above: Performed By: #### L 100.0100 ####[facility] [address] [place], [address] Nucleated RBC (Bld) [#/Vol] 0 10*3/uL Normal 0-5 [facility] Comment on above: Performed By: #### L 100.0100 ####[facility] [address] [place], [address] Platelet mean volume (Bld) [Entitic vol] 10.5 fL Normal 6.2-12.0 [facility] Comment on above: Performed By: #### L 100.0100 ####[facility] [address] [place], [address] Platelets (Bld) [#/Vol] 199 10*3/uL Normal 150-450 [facility] Comment on above: Performed By: #### L 100.0100 ####[facility] [address] [place], [address] RBC (Bld) [#/Vol] 4.20 10*6/uL Low 4.6-6.2 [facility] Comment on above: Performed By: #### L 100.0100 ####[facility] [address] [place], [address] RDW SD 50.9 fl High 35.1-43.9 [facility] Comment on above: Performed By: #### L 100.0100 ####[facility] [address] [place], [address] WBC (Bld) [#/Vol] 4.2 10*3/uL Low 4.4-11.0 [facility] Comment on above: Performed By: #### L 100.0100 ####[facility] [address] [place], [address] Basic Metabolic Profile (BMP )on 02-20-2024 BUN/CRE 8.8 RATIO Low 10-20 [facility] Comment on above: Performed By: #### L 100.0100, L500.2500 ####[facility] [address] [place], [address] CA,Total 8.8 mg/dL Normal 8.5-10.1 [facility] Comment on above: Performed By: #### L 100.0100, L500.2500 ####[facility] [address] [place], [address] Chloride [Moles/Vol] 99 mmol/L Normal 98-107 [facility] Comment on above: Performed By: #### L 100.0100, L500.2500 ####[facility] [address] [place], [address] CO2 [Moles/Vol] 28.0 mmol/L Normal 21.0-32.0 [facility] Comment on above: Performed By: #### L 100.0100, L500.2500 ####[facility] [address] [place], [address] Creatinine [Mass/Vol] 0.80 mg/dL Normal 0.70-1.30 [facility] Comment on above: Result Comment: The validity of the calculated GFR GFRAA in patients over70 years has not been determined. Clinical correlation isessential. Performed By: #### L 100.0100, L500.2500 ####[facility] [address] [place], [address] ECRCL 103.48 ml/min Normal [facility] Comment on above: Performed By: #### L 100.0100, L500.2500 ####[facility] [address] [place], [address] EST GFR - AA 122 mL/min Normal >60 [facility] Comment on above: Result Comment: Afri can Montserratian GFR Calc Performed By: #### L 100.0100, L500.2500 ####[facility] [address] [place], [address] GAP 11 Normal 5-15 [facility] Comment on above: Performed By: #### L 100.0100, L500.2500 ####[facility] [address] [place], [address] GFR/1.73 sq M.predicted among non-blacks MDRD (S/P/Bld) [Vol rate/Area] 101 mL/min/{1.73_m2} Normal >60 [facility] Comment on above: Result Comment: Non- GFR Calc Performed By: #### L 100.0100, L500.2500 ####[facility] [address] [place], [address] Glucose [Mass/Vol] 80 mg/dL Normal 74-106 [facility] Comment on above: Performed By: #### L 100.0100, L500.2500 ####[facility] [address] [place], [address] Potassium [Moles/Vol] 3.8 mmol/L Normal 3.5-5.1 [facility] Comment on above: Performed By: #### L 100.0100, L500.2500 ####[facility] [address] [place], [address] Sodium [Moles/Vol] 138 mmol/L Normal 136-145 [facility] Comment on above: Performed By: #### L 100.0100, L500.2500 ####[facility] [address] [place], [address] Urea nitrogen [Mass/Vol] 7 mg/dL Normal 7-18 [facility] Comment on above: Performed By: #### L 100.0100, L500.2500 ####[facility] [address] [place], [address] CBC W/Diff, Automatedon 02-07 Absolute Lymph 1.34 X10 3/uL Normal 0.83-4.51 [facility] Comment on above: Performed By: #### L 100.0100, L500.2500 ####[facility] [address] [place], [address] Absolute Neut 3.0 X10 3/uL Normal 2.0-7.7 [facility] Comment on above: Performed By: #### L 100.0100, L500.2500 ####[facility] [address] [place], [address] Basophils/100 WBC (Bld) 0.4 % Normal 0-1 [facility] Comment on above: Performed By: #### L 100.0100, L500.2500 ####[facility] [address] [place], [address] Eosinophils/100 WBC (Bld) 2.0 % Normal 0-5 [facility] Comment on above: Performed By: #### L 100.0100, L500.2500 ####[facility] [address] [place], [address] Erythrocyte distribution width (RBC) [Ratio] 14.2 % Normal 11.6-14.6 [facility] Comment on above: Performed By: #### L 100.0100, L500.2500 ####[facility] [address] [place], [address] Hematocrit (Bld) [Volume fraction] 41.0 % Normal 40-54 [facility] Comment on above: Performed By: #### L 100.0100, L500.2500 ####[facility] [address] [place], [address] Hemoglobin (Bld) [Mass/Vol] 13.7 g/dL Normal 13.0-16.5 [facility] Comment on above: Performed By: #### L 100.0100, L500.2500 ####[facility] [address] [place], [address] IG% 0.400 Normal 0.0-0.9 [facility] Comment on above: Result Comment: IG% - Immature Granulocytes (promyelocytes, myelocytes andmetamyelocytes) > 1% indicates that a LEFT SHIFT is Present. Performed By: #### L 100.0100, L500.2500 ####[facility] [address] [place], [address] Lymphocytes/100 WBC (Bld) 26.2 % Normal 19-41 [facility] Comment on above: Performed By: #### L 100.0100, L500.2500 ####[facility] [address] [place], [address] MCH (RBC) [Entitic mass] 32.9 pg High 27.0-32.0 [facility] Comment on above: Performed By: #### L 100.0100, L500.2500 ####[facility] [address] [place], [address] MCHC (RBC) [Mass/Vol] 33.4 g/dL Normal 32-36 [facility] Comment on above: Performed By: #### L 100.0100, L500.2500 ####[facility] [address] [place], [address] MCV (RBC) [Entitic vol] 98.6 fL High 80-94 [facility] Comment on above: Performed By: #### L 100.0100, L500.2500 ####[facility] [address] [place], [address] Monocytes/100 WBC (Bld) 12.3 % High 0-10 [facility] Comment on above: Performed By: #### L 100.0100, L500.2500 ####[facility] [address] [place], [address] Neutrophils/100 WBC (Bld) 58.7 % Normal 47-70 [facility] Comment on above: Performed By: #### L 100.0100, L500.2500 ####[facility] [address] [place], [address] Nucleated RBC (Bld) [#/Vol] 0 10*3/uL Normal 0-5 [facility] Comment on above: Performed By: #### L 100.0100, L500.2500 ####[facility] [address] [place], [address] Platelet mean volume (Bld) [Entitic vol] 9.4 fL Normal 6.2-12.0 [facility] Comment on above: Performed By: #### L 100.0100, L500.2500 ####[facility] [address] [place], [address] Platelets (Bld) [#/Vol] 107 10*3/uL Low 150-450 [facility] Comment on above: Performed By: #### L 100.0100, L500.2500 ####[facility] [address] [place], [address] RBC (Bld) [#/Vol] 4.16 10*6/uL Low 4.6-6.2 [facility] Comment on above: Performed By: #### L 100.0100, L500.2500 ####[facility] [address] [place], [address] RDW SD 50.7 fl High 35.1-43.9 [facility] Comment on above: Performed By: #### L 100.0100, L500.2500 ####[facility] [address] [place], [address] WBC (Bld) [#/Vol] 5.1 10*3/uL Normal 4.4-11.0 [facility] Comment on above: Performed By: #### L 100.0100, L500.2500 ####[facility] [address] [place], [address] Emergency Department Summary on 02-20-2024 Emergency Department Summary Normal [facility] Plastic Surgery Visit Report on 02-03-2024 Plastic Surgery Visit Report Normal [facility] Plastic Surgery Visit Report on 01-27-2024 Plastic Surgery Visit Report Normal [facility] Surgery Specimen Level Ibis 01-27-2024 Surgery Specimen Level IV Normal [facility] Comment on above: Performed By: #### P SUIV ####[facility] [address] [place], [address] Plastic Surgery Visit Report on 12-30-2023 Plastic Surgery Visit Report Normal [facility] 12 Lead EKGon 12-18-2023 12 Lead EKG Normal [facility] CBC W/Diff, Automatedon 12-08 Absolute Lymph 2.50 X10 3/uL Normal 0.83-4.51 [facility] Comment on above: Performed By: #### L 501.4020, L501.2450, L500.4050, L100.0100 ####[facility] [address] [place], [address] Absolute Neut 3.5 X10 3/uL Normal 2.0-7.7 [facility] Comment on above: Performed By: #### L 501.4020, L501.2450, L500.4050, L100.0100 ####[facility] [address] [place], [address] Basophils/100 WBC (Bld) 0.6 % Normal 0-1 [facility] Comment on above: Performed By: #### L 501.4020, L501.2450, L500.4050, L100.0100 ####[facility] [address] [place], [address] Eosinophils/100 WBC (Bld) 0.7 % Normal 0-5 [facility] Comment on above: Performed By: #### L 501.4020, L501.2450, L500.4050, L100.0100 ####[facility] [address] [place], [address] Erythrocyte distribution width (RBC) [Ratio] 13.4 % Normal 11.6-14.6 [facility] Comment on above: Performed By: #### L 501.4020, L501.2450, L500.4050, L100.0100 ####[facility] [address] [place], [address] Hematocrit (Bld) [Volume fraction] 43.9 % Normal 40-54 [facility] Comment on above: Performed By: #### L 501.4020, L501.2450, L500.4050, L100.0100 ####[facility] [address] [place], [address] Hemoglobin (Bld) [Mass/Vol] 15.1 g/dL Normal 13.0-16.5 [facility] Comment on above: Performed By: #### L 501.4020, L501.2450, L500.4050, L100.0100 ####[facility] [address] [place], [address] IG% 0.300 Normal 0.0-0.9 [facility] Comment on above: Result Comment: IG% - Immature Granulocytes (promyelocytes, myelocytes andmetamyelocytes) > 1% indicates that a LEFT SHIFT is Present. Performed By: #### L 501.4020, L501.2450, L500.4050, L100.0100 ####[facility] [address] [place], [address] Lymphocytes/100 WBC (Bld) 36.9 % Normal 19-41 [facility] Comment on above: Performed By: #### L 501.4020, L501.2450, L500.4050, L100.0100 ####[facility] [address] [place], [address] MCH (RBC) [Entitic mass] 33.8 pg High 27.0-32.0 [facility] Comment on above: Performed By: #### L 501.4020, L501.2450, L500.4050, L100.0100 ####[facility] [address] [place], [address] MCHC (RBC) [Mass/Vol] 34.4 g/dL Normal 32-36 [facility] Comment on above: Performed By: #### L 501.4020, L501.2450, L500.4050, L100.0100 ####[facility] [address] [place], [address] MCV (RBC) [Entitic vol] 98.2 fL High 80-94 [facility] Comment on above: Performed By: #### L 501.4020, L501.2450, L500.4050, L100.0100 ####[facility] [address] [place], [address] Monocytes/100 WBC (Bld) 9.7 % Normal 0-10 [facility] Comment on above: Performed By: #### L 501.4020, L501.2450, L500.4050, L100.0100 ####[facility] [address] [place], [address] Neutrophils/100 WBC (Bld) 51.8 % Normal 47-70 [facility] Comment on above: Performed By: #### L 501.4020, L501.2450, L500.4050, L100.0100 ####[facility] [address] [place], [address] Nucleated RBC (Bld) [#/Vol] 0 10*3/uL Normal 0-5 [facility] Comment on above: Performed By: #### L 501.4020, L501.2450, L500.4050, L100.0100 ####[facility] [address] [place], [address] Platelet mean volume (Bld) [Entitic vol] 9.7 fL Normal 6.2-12.0 [facility] Comment on above: Performed By: #### L 501.4020, L501.2450, L500.4050, L100.0100 ####[facility] [address] [place], [address] Platelets (Bld) [#/Vol] 235 10*3/uL Normal 150-450 [facility] Comment on above: Performed By: #### L 501.4020, L501.2450, L500.4050, L100.0100 ####[facility] [address] [place], [address] RBC (Bld) [#/Vol] 4.47 10*6/uL Low 4.6-6.2 [facility] Comment on above: Performed By: #### L 501.4020, L501.2450, L500.4050, L100.0100 ####[facility] [address] [place], [address] RDW SD 49.0 fl High 35.1-43.9 [facility] Comment on above: Performed By: #### L 501.4020, L501.2450, L500.4050, L100.0100 ####[facility] [address] [place], [address] WBC (Bld) [#/Vol] 6.8 10*3/uL Normal 4.4-11.0 [facility] Comment on above: Performed By: #### L 501.4020, L501.2450, L500.4050, L100.0100 ####[facility] [address] [place], [address] Comprehensive Metabolic Prof ilon 12-18-2023 Albumin [Mass/Vol] 3.6 g/dL Normal 3.2-5.0 [facility] Comment on above: Order Comment: 'TROP ' Serial specimen #1, #2 or #3: 1 Performed By: #### L 501.4020, L501.2450, L500.4050, L100.0100 ####[facility] [address] [place], [address] Albumin/Globulin [Mass ratio] 0.9 {ratio} Normal 0.9-2.4 [facility] Comment on above: Order Comment: 'TROP ' Serial specimen #1, #2 or #3: 1 Performed By: #### L 501.4020, L501.2450, L500.4050, L100.0100 ####[facility] [address] [place], [address] ALK P 74 U/L Normal 45-117 [facility] Comment on above: Order Comment: 'TROP ' Serial specimen #1, #2 or #3: 1 Performed By: #### L 501.4020, L501.2450, L500.4050, L100.0100 ####[facility] [address] [place], [address] ALT [Catalytic activity/Vol] 29 U/L Normal 16-61 [facility] Comment on above: Order Comment: 'TROP ' Serial specimen #1, #2 or #3: 1 Performed By: #### L 501.4020, L501.2450, L500.4050, L100.0100 ####[facility] [address] [place], [address] AST [Catalytic activity/Vol] 41 U/L High 15-37 [facility] Comment on above: Order Comment: 'TROP ' Serial specimen #1, #2 or #3: 1 Performed By: #### L 501.4020, L501.2450, L500.4050, L100.0100 ####[facility] [address] [place], [address] Bilirubin [Mass/Vol] 0.30 mg/dL Normal 0.20-1.00 [facility] Comment on above: Order Comment: 'TROP ' Serial specimen #1, #2 or #3: 1 Result Comment: For patients on eltrombopag therapy, use of Dimension [place] TBIL is not recommended. Performed By: #### L 501.4020, L501.2450, L500.4050, L100.0100 ####[facility] [address] [place], [address] BUN/CRE 13.9 RATIO Normal 10-20 [facility] Comment on above: Order Comment: 'TROP ' Serial specimen #1, #2 or #3: 1 Performed By: #### L 501.4020, L501.2450, L500.4050, L100.0100 ####[facility] [address] [place], [address] CA,Total 9.2 mg/dL Normal 8.5-10.1 [facility] Comment on above: Order Comment: 'TROP ' Serial specimen #1, #2 or #3: 1 Performed By: #### L 501.4020, L501.2450, L500.4050, L100.0100 ####[facility] [address] [place], [address] Chloride [Moles/Vol] 105 mmol/L Normal 98-107 [facility] Comment on above: Order Comment: 'TROP ' Serial specimen #1, #2 or #3: 1 Performed By: #### L 501.4020, L501.2450, L500.4050, L100.0100 ####[facility] [address] [place], [address] CO2 [Moles/Vol] 25.0 mmol/L Normal 21.0-32.0 [facility] Comment on above: Order Comment: 'TROP ' Serial specimen #1, #2 or #3: 1 Performed By: #### L 501.4020, L501.2450, L500.4050, L100.0100 ####[facility] [address] [place], [address] Creatinine [Mass/Vol] 1.08 mg/dL Normal 0.70-1.30 [facility] Comment on above: Order Comment: 'TROP ' Serial specimen #1, #2 or #3: 1 Result Comment: The validity of the calculated GFR GFRAA in patients over70 years has not been determined. Clinical correlation isessential. Performed By: #### L 501.4020, L501.2450, L500.4050, L100.0100 ####[facility] [address] [place], [address] ECRCL 75.77 ml/min Normal [facility] Comment on above: Order Comment: 'TROP ' Serial specimen #1, #2 or #3: 1 Performed By: #### L 501.4020, L501.2450, L500.4050, L100.0100 ####[facility] [address] [place], [address] EST GFR - AA 86 mL/min Normal >60 [facility] Comment on above: Order Comment: 'TROP ' Serial specimen #1, #2 or #3: 1 Result Comment: Afri can Montserratian GFR Calc Performed By: #### L 501.4020, L501.2450, L500.4050, L100.0100 ####[facility] [address] [place], [address] GAP 8 Normal 5-15 [facility] Comment on above: Order Comment: 'TROP ' Serial specimen #1, #2 or #3: 1 Performed By: #### L 501.4020, L501.2450, L500.4050, L100.0100 ####[facility] [address] [place], [address] GFR/1.73 sq M.predicted among non-blacks MDRD (S/P/Bld) [Vol rate/Area] 71 mL/min/{1.73_m2} Normal >60 [facility] Comment on above: Order Comment: 'TROP ' Serial specimen #1, #2 or #3: 1 Result Comment: Non- GFR Calc Performed By: #### L 501.4020, L501.2450, L500.4050, L100.0100 ####[facility] [address] [place], [address] Globulin (S) [Mass/Vol] 3.9 g/dL Normal 2.2-4.2 [facility] Comment on above: Order Comment: 'TROP ' Serial specimen #1, #2 or #3: 1 Performed By: #### L 501.4020, L501.2450, L500.4050, L100.0100 ####[facility] [address] [place], [address] Glucose [Mass/Vol] 107 mg/dL High 74-106 [facility] Comment on above: Order Comment: 'TROP ' Serial specimen #1, #2 or #3: 1 Result Comment: Fast ing Glucose result from 100 to 125 mg/dLsuggests IMPAIRED HOMEOSTASIS per A.D.A. criteria. Performed By: #### L 501.4020, L501.2450, L500.4050, L100.0100 ####[facility] [address] [place], [address] Potassium [Moles/Vol] 4.2 mmol/L Normal 3.5-5.1 [facility] Comment on above: Order Comment: 'TROP ' Serial specimen #1, #2 or #3: 1 Performed By: #### L 501.4020, L501.2450, L500.4050, L100.0100 ####[facility] [address] [place], [address] Sodium [Moles/Vol] 138 mmol/L Normal 136-145 [facility] Comment on above: Order Comment: 'TROP ' Serial specimen #1, #2 or #3: 1 Performed By: #### L 501.4020, L501.2450, L500.4050, L100.0100 ####[facility] [address] [place], [address] T PROT 7.5 g/dL Normal 6.4-8.2 [facility] Comment on above: Order Comment: 'TROP ' Serial specimen #1, #2 or #3: 1 Performed By: #### L 501.4020, L501.2450, L500.4050, L100.0100 ####[facility] [address] [place], [address] Urea nitrogen [Mass/Vol] 15 mg/dL Normal 7-18 [facility] Comment on above: Order Comment: 'TROP ' Serial specimen #1, #2 or #3: 1 Performed By: #### L 501.4020, L501.2450, L500.4050, L100.0100 ####[facility] [address] [place], [address] Emergency Department Summary on 12-18-2023 Emergency Department Summary Normal [facility] L501.4020on 12-18-2023 TROPONIN-I HS 14 pg/mL Normal 3.0-78.0 [facility] Comment on above: Order Comment: 'TROP ' Serial specimen #1, #2 or #3: 1 Result Comment: Plea se Note: New Test Units and Gender Specific Reference Ranges. For more information see Policy Stat Procedure [place] High Sensitivity Troponin (TNIH) and attachments. Performed By: #### L 501.4020, L501.2450, L500.4050, L100.0100 ####[facility] [address] [place], [address] Lipaseon 12-18-2023 Lipase [Catalytic activity/Vol] 58 U/L Normal 13-75 [facility] Comment on above: Order Comment: 'TROP ' Serial specimen #1, #2 or #3: 1 Result Comment: Plea se note:LIPASE revised reference range effective 22.New Lipase methodology. Expected to produce lower valuesthan the previous assay method.NEW Reference Range: 13 - 75 U/L Performed By: #### L 501.4020, L501.2450, L500.4050, L100.0100 ####[facility] [address] [place], [address] Urinalysis, Completeon 12-17 BACTERIA Normal None Seen [facility] Comment on above: Order Comment: CLEAN CATCH Result Comment: PT D ISCHARGED Performed By: #### L 400.0001 ####[facility] [address] [place], [address] BILIRUBIN URINE Normal Negative [facility] Comment on above: Order Comment: CLEAN CATCH Result Comment: PT D ISCHARGED Performed By: #### L 400.0001 ####[facility] [address] [place], [address] Clarity (U) Normal Clear [facility] Comment on above: Order Comment: CLEAN CATCH Result Comment: PT D ISCHARGED Performed By: #### L 400.0001 ####[facility] [address] [place], [address] Color (U) Normal Yellow [facility] Comment on above: Order Comment: CLEAN CATCH Result Comment: PT D ISCHARGED Performed By: #### L 400.0001 ####[facility] [address] [place], [address] EPI,SQUAMOUS Normal 0-5 [facility] Comment on above: Order Comment: CLEAN CATCH Result Comment: PT D ISCHARGED Performed By: #### L 400.0001 ####[facility] [address] [place], [address] GLUCOSE, UR Normal Normal [facility] Comment on above: Order Comment: CLEAN CATCH Result Comment: PT D ISCHARGED Performed By: #### L 400.0001 ####[facility] [address] [place], [address] KETONE UR Normal Negative [facility] Comment on above: Order Comment: CLEAN CATCH Result Comment: PT D ISCHARGED Performed By: #### L 400.0001 ####[facility] [address] [place], [address] LEUK ESTERASE Normal Negative [facility] Comment on above: Order Comment: CLEAN CATCH Result Comment: PT D ISCHARGED Performed By: #### L 400.0001 ####[facility] [address] [place], [address] Mucus Ql (Urine sed) Normal [facility] Comment on above: Order Comment: CLEAN CATCH Result Comment: PT D ISCHARGED Performed By: #### L 400.0001 ####[facility] [address] [place], [address] Nitrite Ql (U) Normal Negative [facility] Comment on above: Order Comment: CLEAN CATCH Result Comment: PT D ISCHARGED Performed By: #### L 400.0001 ####[facility] [address] [place], [address] OCCULT BLOOD-UR Normal Negative [facility] Comment on above: Order Comment: CLEAN CATCH Result Comment: PT D ISCHARGED Performed By: #### L 400.0001 ####[facility] [address] [place], [address] pH UR Normal 5.0 - 8.0 [facility] Comment on above: Order Comment: CLEAN CATCH Result Comment: PT D ISCHARGED Performed By: #### L 400.0001 ####[facility] [address] [place], [address] PROT DIPSTX Normal Negative [facility] Comment on above: Order Comment: CLEAN CATCH Result Comment: PT D ISCHARGED Performed By: #### L 400.0001 ####[facility] [address] [facility] [address] RBC Normal 0-5 [facility] Comment on above: Order Comment: CLEAN CATCH Result Comment: PT D ISCHARGED Performed By: #### L 400.0001 ####[facility] [address] [place], [address] SP.GR. DIPSTX Normal 1.002-1.030 [facility] Comment on above: Order Comment: CLEAN CATCH Result Comment: PT D ISCHARGED Performed By: #### L 400.0001 ####[facility] [address] [place], [address] UR Preservative Normal [facility] Comment on above: Order Comment: CLEAN CATCH Result Comment: PT D ISCHARGED Performed By: #### L 400.0001 ####[facility] [address] [facility] [address] UROBILI Normal Normal [facility] Comment on above: Order Comment: CLEAN CATCH Result Comment: PT D ISCHARGED Performed By: #### L 400.0001 ####[facility] [address] [place], [address] WBC Normal 0-5 [facility] Comment on above: Order Comment: CLEAN CATCH Result Comment: PT D ISCHARGED Performed By: #### L 400.0001 ####[facility] [address] [place], [address] Lipaseon 12-09-2023 Lipase [Catalytic activity/Vol] 58 U/L Normal 13-75 [facility] Comment on above: Result Comment: Nagi nelson note:LIPASE revised reference range effective 22.New Lipase methodology. Expected to produce lower valuesthan the previous assay method.NEW Reference Range: 13 - 75 U/L Performed By: #### L 501.2450, L500.3400 ####[facility] [address] [place], [address] Liver Profileon 12-09-2023 Albumin [Mass/Vol] 3.5 g/dL Normal 3.2-5.0 [facility] Comment on above: Performed By: #### L 501.2450, L500.3400 ####[facility] [address] [place], [address] ALK P 70 U/L Normal 45-117 [facility] Comment on above: Performed By: #### L 501.2450, L500.3400 ####[facility] [address] [place], [address] ALT [Catalytic activity/Vol] 35 U/L Normal 16-61 [facility] Comment on above: Performed By: #### L 501.2450, L500.3400 ####[facility] [address] [place], [address] AST [Catalytic activity/Vol] 31 U/L Normal 15-37 [facility] Comment on above: Performed By: #### L 501.2450, L500.3400 ####[facility] [address] [place], [address] Bilirubin [Mass/Vol] 0.70 mg/dL Normal 0.20-1.00 [facility] Comment on above: Result Comment: For patients on eltrombopag therapy, use of Dimension [place] TBIL is not recommended. Performed By: #### L 501.2450, L500.3400 ####[facility] [address] [place], [address] Bilirubin.direct [Mass/Vol] 0.25 mg/dL Normal 0.00-0.30 [facility] Comment on above: Performed By: #### L 501.2450, L500.3400 ####[facility] [address] [place], [address] Globulin (S) [Mass/Vol] 4.0 g/dL Normal 2.2-4.2 [facility] Comment on above: Performed By: #### L 501.2450, L500.3400 ####[facility] [address] [place], [address] T PROT 7.5 g/dL Normal 6.4-8.2 [facility] Comment on above: Performed By: #### L 501.2450, L500.3400 ####[facility] [address] [place], [address] Surgery Specimen Level Ibis 12-09-2023 Surgery Specimen Level IV Normal [facility] Comment on above: Performed By: #### P SUIV ####[facility] [address] [place], [address] Miscellaneous Lab Procedureo n 11-09-2023 [facility] LAB TEST . Normal [facility] Comment on above: Order Comment: STOOL CULTURE [id number] CULTURE [id number] Result Comment: Salm onella/Shigella Screen Final Report No Salmonella or Shigella recovered.Campylobacter Culture Final Report No Campylobacter species isolatedE coli Shiga Toxin EIA Final Report Negative TESTING PERFORMED AT [facility]. ORIGINAL REPORT ON FILE IN LAB CONTAINS ADDITIONAL TEST SITE INFORMATION. ____ Performed By: #### M 100.7900, M600.5000, L801.1541 ####[facility] [address] [place], [address] Ova and Parasites 8623on OP Normal [facility] Comment on above: Performed By: #### M 100.7900, M600.5000, L801.1541 ####[facility] [address] [place], [address] Abdomen/Pelvis WITH Contrast on 11-03-2023 Abdomen/Pelvis WITH Contrast Normal [facility] CREATININE FINGERSTICKon CREATININE WB < 1.0 Normal 0.70-1.30 [facility] Comment on above: Performed By: #### L 9100.0200 ####[facility] [address] [place], [address] EGFR WB > 60.0000 Normal >60 [facility] Comment on above: Performed By: #### L 9100.0200 ####[facility] [address] [place], [address] Stool Occult Blood iFOBon STOB Negative Normal [facility] Comment on above: Performed By: #### M 100.7900, M600.5000, L801.1541 ####[facility] [address] [place], [address] PSA,Total - Annual Screenon 09-17-2024 PSA,TOT SCREEN 0.83 ng/mL Normal 0.00-4.00 [facility] Comment on above: Result Comment: This test was performed using the TPSA assay method for [employer] chemistry system. Values obtained with differentassay methods cannot be used interchangably.When changing PSA assays in the course of monitoring apatient, additional sequential testing should be carriedout to confirm baseline values. Performed By: #### L 501.9910 ####[facility] [address] [place], [address] PROGRESSon 04-01-2018 Protein mass conc HNO ID: [id number] Author: Ki Galaviz Service: (none) Author Type: Physician Type: Progress Notes Filed: 04/01/2018 9:54 AM Note Text: OPERATIVE NOTATION FOR [facility] SURGICAL PROCEDURE. March 17, 2018 Brian Segura 1950 [id number] male PROCEDURE: EGD WITH BIOPSY - [id number] SURGEON: Baljit Galaviz M.D. FACS VERIFICATION SPECIALIST: None DEPT: WQ PROVIDER: [id number] Galaviz MD POS: [id number] DIAGNOSIS: (K92.0) Hematemesis, presence of nausea not [...] Clean Contaminated Operative note dictated in the [facility] dictation system. Ki Galaviz MD [facility] Encounters Encounter Date Encounter Type Care Provider Facility Start: 10-01-2024 End: 10-01-2024 Emergency department patient visit [facility] Facility:[facility] Start: 07-25-2024 End: 07-25-2024 Emergency department patient visit [facility] Facility:[facility] Start: 07-14-2024 End: 07-14-2024 Emergency department patient visit [facility] Facility:[facility] Start: 07-10-2024 End: 07-10-2024 ambulatory [facility] [place] Start: 07-05-2024 End: 07-05-2024 ambulatory Alfred Bailey Facility:[facility] Start: 06-21-2024 End: 06-21-2024 ambulatory Alfred Bailey Facility:[facility] Start: 06-07-2024 End: 06-07-2024 Emergency department patient visit Alfred Bailey Facility:[facility] Start: 05-28-2024 End: 05-28-2024 Emergency department patient visit Alfred Bailey Facility:[facility] Start: 05-26-2024 End: 05-26-2024 Emergency department patient visit Alfred Bailey Facility:[facility] Start: 05-21-2024 ambulatory Alfred Lynn Facility: [facility] Start: 04-30-2024 ambulatory Alfred Bailey Facility: [facility] Start: 04-22-2024 End: 04-27-2024 ambulatory Alfred Bailey Facility:[facility] Start: 03-07-2024 End: 03-07-2024 Emergency department patient visit Alfred Bailey Facility:[facility] Start: 02-29-2024 End: 02-29-2024 ambulatory Alfred Bailey Facility:[facility] Start: 02-20-2024 End: 02-20-2024 Emergency department patient visit Alfred Bailey Facility:[facility] Start: 02-03-2024 End: 02-03-2024 ambulatory Alfred Bailey Facility:[facility] Start: 01-27-2024 End: 01-27-2024 ambulatory Alfred Bailey Facility:[facility] Start: 01-27-2024 End: 01-27-2024 ambulatory Alfred Bailey Facility:[facility] Start: 12-30-2023 End: 12-30-2023 ambulatory Alfred Bailey Facility:[facility] Start: 12-18-2023 End: 12-19-2023 Emergency department patient visit Alfred Quintanaman Facility:[facility] Start: 12-09-2023 End: 12-09-2023 ambulatory Alfred Lynn Facility:[facility] Start: 11-03-2023 End: 11-03-2023 ambulatory Alfred Bailey Facility:[facility] Start: 10-28-2023 End: 10-28-2023 ambulatory Alfred Bailey Facility:[facility] Start: 10-25-2023 End: 10-25-20[address] Facility:[facility] Start: 04-13-2023 End: 04-14-[address] WILLIE BLANK MD Facility: Start: 04-13-2023 End: 04-13-[address] WILLIE BLANK MD [facility] Procedures Date Procedure Procedure Detail [...] vaccine, [address] WILLIE BLANK MD [facility] Payers Date Payer Category Payer Self-pay 2023 Unknown [id number] 1950 Unknown [id number] 2.16.8 [id number] Unknown [id number] 2.16.8 40.1.705557.3.579.2.462 Unknown [id number] 2.16.8 40.1.019826.3.579.2.462 Unknown [id number] 2.16.8 40.1.033612.3.579.2.462 Unknown [id number] 2.16.8 40.1.778686.3.579.2.462 Unknown [id number] 2.16.8 40.1.677537.3.579.2.462 Unknown [id number] 2.16.8 40.1.770434.3.579.2.462 Unknown [id number] 2.16.8 40.1.907403.3.579.2.462 Unknown [id number] 2.16.8 40.1.873313.3.579.2.462 Unknown [id number] 2.16.8 40.1.653550.3.579.2.462 Unknown [id number] 2.16.8 40.1.496890.3.579.2.462 Unknown [id number] 2.16.8 40.1.920993.3.579.2.462 Unknown [id number] 2.16.8 40.1.744861.3.579.2.462 Unknown [id number] 2.16.8 40.1.917805.3.579.2.462 Unknown [id number] 2.16.8 40.1.336266.3.579.2.462 Unknown [id number] 2.16.8 40.1.242390.3.579.2.462 Unknown [id number] 2.16.8 40.1.381250.3.579.2.462 Unknown [id number] 2.16.8 40.1.427080.3.579.2.462 Unknown [id number] 2.16.8 40.1.739070.3.579.2.462 Unknown [id number] 2.16.8 40.1.075741.3.579.2.462 Unknown [id number] 2.16.8 40.1.752435.3.579.2.462 Unknown [id number] 2.16.8 40.1.082922.3.579.2.462 Unknown [id number] 2.16.8 40.1.927500.3.579.2.462 Unknown [id number] 2.16.8 40.1.559589.3.579.2.462 Unknown [id number] 2.16.8 40.1.254143.3.579.2.462 Unknown [id number] 2.16.8 40.1.823161.3.579.2.462 Unknown [id number] 2.16.8 40.1.949494.3.579.2.462 Unknown [id number] 2.16.8 40.1.117664.3.579.2.462 Unknown [id number] 2.16.8 40.1.079493.3.579.2.462 Unknown [id number] 2.16.8 40.1.609035.3.579.2.462 Unknown [id number] 2.16.8 40.1.157009.3.579.2.462 Unknown [id number] 2.16.8 40.1.926898.3.579.2.462 Social History Date Type Detail Facility Tobacco smoking status Ex-smoker (finding ) [facility] Sex Assigned At Male [facility] Discharge summary note 04-27-2024 Note Date & Type Note Facility 04-27-2024 Note [facility] Consultation note 04-24-2024 Note Date & Type Note Facility 04-24-2024 Note [facility] Clinical Note 04-13-2023 Note Date & Type Note Facility 04-13-2023 Note Sinus rhythm Probable left atrial enlargement Anteroseptal infarct, age indeterminate Electronic Signature: NEVILLE UNDERWOOD MD 04/13/2023 16:41:28 [facility] Evaluation + Plan note Note Date & Type Note Facility Evaluation + Plan note No data available for this section [facility] Hospital Discharge instructions Note Date & Type Note Facility Hospital Discharge instructions No data available for this section [facility] Progress note Note Date & Type Note Facility Progress note No data available for this section [facility] Summary Purpose Family History No Family History Records Found No data available for this section No Family History Records FoundNo Family History Records Found Advance Directives No Advanced Directives Records FoundNo Advanced Directives Records FoundNo Advanced Directives Records Found Procedure Findings Note Operative Note (Enc) (GENSWS ) Progress Notes: Ki Galaviz MD 04/01/2018 9:54 AM Signed OPERATIVE NOTATION FOR [facility] SURGICAL PROCEDURE. March 17, 2018 Brian Segura 1950 [id number] male PROCEDURE: EGD WITH BIOPSY - [id number] SURGEON: Baljit Galaviz M.D. FACS VERIFICATION SPECIALIST: None DEPT: W PROVIDER: I15=HwzywrdKi Galaviz MD POS: 1O1=YEVIZNUOH DIAGNOSIS: (K92.0) Hematemesis, presence of nausea not [...] Clean Contaminated Operative note dictated in the [facility] dictation sys (more content not included)... Additional Source Comments (unrecognized sect ion and content) No Status Records FoundNo Status Records FoundNo Status Records Found INFORMATION SOURCE (unrecogn ized section and content) DATE CREATED AUTHOR 04/01/2018 [facility] DATE CREATED AUTHOR AUTHOR'S ORGANIZ ATION 04/14/2023 [facility] DATE CREATED AUTHOR AUTHOR'S ORGANIZ ATION 10/07/2024 [facility] Patient Care team informatio n (unrecognized section and content) Care Team Personnel Name: KI LANZA JR, MD Member Role: Primary Care Physician Address: Address: [address] [place] [address] Care Team Related Persons Name: SEGURA, FAY Address: Home [address] [place], [place] [id number] FOR RECORDS PERTAINING TO PATIENTS WHO ARE [...] BE BASED ON THE PRIMARY CLINICAL RECORDS. [facility] [employer] [facility]. provides no warranty or guarantee of the accuracy or completeness of information in this document.
--- NOTE | 2024-10-13 19:07 | CT_ITS ---
PROCEDURE: ABDOMEN/PELVIS W IV CONT ONLY 10/13/2024 REASON FOR EXAM: NAUSEA AND VOMITING TECHNIQUE: Procedure Code: CTABDPELIV Modality: CT Procedure: ABDOMEN/PELVIS W IV CONT ONLY Coronal and Sagittal reconstruction series were provided. CONTRAST: 100 cc VOLUME: Isovue 370 mL One or more dose reduction techniques were used (e.g., Automated exposure control, adjustment of the mA and/or kV according to patient size, use of iterative reconstruction technique. RADIATION DOSE SUMMARY: CTDlvol: 36 mGy DLP: 1257 mGycm COMPARISON: 11/03/2023 FINDINGS: No solid liver masses. Dependent density in the gallbladder may represent dependent sludge. Normal appearance of the spleen with benign splenic granulomas. No gastric dilatation. Normal pancreas. No renal mass, calculus or hydronephrosis. No adrenal mass lesions. No dilatation of the large bowel or the small bowel. No free air or free fluid. No bowel wall thickening. Lung bases are clear CT/Abdomen/Pelvis W IV Cont ONLY IMPRESSION: No acute abnormality Reading [facility]
[2024-10-13 19:16] LABS: Hematocrit 47.5 % (40-54); Hemoglobin 16.4 g/dL (13.0-16.5); Immature Granulocytes Count 0.020 X10^3/uL (0.0-0.0); Mean Corp Hgb Conc 34.5 g/dL (32-36); Mean Corpuscular Volume 91.2 fL (80-94); Mean Platelet Vol. 10.3 fl (6.2-12.0); NRBC Flagged by Analyzer 0 % (0-5); Platelet Count 261 K/mm3 (150-450); RBC Distribution Width CV 14.0 % (11.6-14.6); RBC Distribution Width SD 47.1 fl (35.1-43.9); Red Blood Count 5.21 M/mm3 (4.6-6.2); White Blood Count 9.7 K/mm3 (4.4-11.0)
[2024-10-13] MEDS: DiphenhydrAMINE 50 MG/ML Syringe 25 MG IV (19:18)
[2024-10-13] MEDS: 0.9% Normal Saline (1000mL) 1,000 ML 999 ML IV (19:18)
--- NOTE | 2024-10-13 19:21 | EX.ED.GENINJ ---
HPI History of Present Illness Chief Complaint: Nausea/Vomiting Narrative Narrative: Chief complaint and HPI: 74-year-old male with history of cyclic vomiting syndrome, alcohol abuse, degenerative disease, duodenal ulcer, GI bleed, COPD presents for evaluation of nausea. Onset of symptoms approximately 2 PM. Patient was seen yesterday evening for the same complaint. States he received medication and his symptoms improved however reoccurred which is why he presents. He states he follows with GI for his recurrent nausea. States the nausea happens spontaneously. He denies any cannabis abuse. States he has had dry heaving but no vomiting. Last bowel movement was yesterday. He denies any fever, chills, shortness of breath, chest pain, hematemesis, bloody stools, dysuria. Endorses some mild abdominal pain from all the nausea and dry heaving. Review of systems: See HPI Medications: As listed on the chart Allergies: As listed on the chart PFSH: Per chart Vital signs: As listed on the chart. Reviewed. Physical exam: Gen: A&O x3, NAD Head: Normocephalic, atraumatic Eyes: No sclera icterus, conjunctiva clear ENT: Dry mucous membranes Neck: Trachea midline, No JVD CV: RRR, no murmurs, no peripheral edema Resp: Lungs CTA BL, no w/r/c GI: Abd soft, non-distended, non-tender, no r/r/g : No CVA tenderness Musc: Full ROM, no deformity Skin: Warm, dry Neuro: Alert, oriented, grossly intact, sensation intact Psych: Cooperative, appropriate mood and affect PFS PFS Medical History Strain of right psoas muscle Acute pain of right hip Fall Alcohol abuse Alcohol withdrawal Basal cell carcinoma of anterior chest Wears glasses Wears dentures Depression Anxiety Alcohol use Arthritis History of renal disease Back pain Injury of head and neck History of ulceration History of IBS History of diverticulitis Gastric reflux CPAP (continuous positive airway pressure) dependence Former smoker COPD (chronic obstructive pulmonary disease) Shortness of breath on exertion History of pain when walking History of edema History of stress test Encounter for screening for COVID-19 Chest wall contusion (~12/18/20) HTN (hypertension) Home Medications ?Medication ?Instructions ?Recorded ?Last Taken ?Type lisinopril 20 mg tablet 20 mg PO BID blood pressure 03/16/18 05/27/24 History pantoprazole 40 mg tablet,delayed 40 mg PO BID reflux 09/07/19 05/27/24 History release albuterol sulfate 2.5 mg/3 mL 2.5 mg inhalation Q6H PRN 05/18/23 Unknown History (0.083 %) solution for nebulization shortness of breath or wheezing fluvoxamine 100 mg tablet 100 mg PO QHS 05/18/23 05/27/24 History amlodipine 5 mg tablet 5 mg PO DAILY 05/24/23 05/27/24 History acetaminophen 325 mg tablet 650 mg (2 x 325 mg) PO Q4H PRN PRN 04/27/24 Unknown Rx Fever, pain -11/16 #0 tabs calcium carbonate 500 mg (2.5 x 200 mg calcium (500 04/27/24 Unknown Rx mg)) PO TIDCM PRN DYSPEPSIA/INDIGESTION #0 tabs lorazepam 0.5 mg tablet 0.5 mg PO Q6H PRN PRN Anxiety #8 04/27/24 05/27/24 Rx tabs sennosides 8.6 mg-docusate sodium 1 tab PO DAILY #1 TAB 04/27/24 Unknown Rx 50 mg tablet (Stimulant Laxative Plus) doxepin 10 mg capsule 10 - 20 mg PO QHS PRN PRN insomnia 05/28/24 05/27/24 History Allergy/AdvReac Type Severity Reaction Status Date / Time amoxicillin Allergy doesnt Verified 10/13/24 18:43 rememeber fluoxetine (From Prozac) AdvReac Other Verified 10/13/24 18:43 Family History Mother Myocardial infarction Hypertension Father Cancer Hypertension Surgical History Hx of colonoscopy Hx of blepharoplasty Hx of esophagogastroduodenoscopy History of eye surgery Social History household members: none Smoking Status: Former smoker how long ago did patient quit smoking: quit 20 yr ago alcohol intake: current Alcohol type: hard liquor substance use type: does not use additional social history: personal hx of PEs EXAM Physical Exam Const Vital Signs: 10/13/24 18:43 10/13/24 19:31 Temperature 96.8 F L Temperature Source Temporal Pulse Rate 96 88 Respiratory Rate 22 H 18 Blood Pressure 140/81 H 156/67 H Blood Pressure Mean 100 96 Pulse Ox 95 95 Oxygen Delivery Method Room Air Room Air MDM MDM MDM Narrative Medical decision making narrative: 74-year-old male with history of cyclic vomiting syndrome, alcohol abuse, degenerative disease, duodenal ulcer, GI bleed, COPD presents for evaluation of nausea. Onset of symptoms approximately 2 PM. Patient was seen yesterday evening for the same complaint. On chart review, patient was seen early this morning for the same complaint. He received NS bolus, Ativan, Zofran, Benadryl, Thorazine. He had laboratory workup that was relatively unremarkable. On presentation, patient in no acute distress. Nontoxic-appearing. Dry mucous membranes. Differential diagnosis includes but is not limited to cyclic vomiting syndrome, dehydration, electrolyte abnormality, viral illness, gastroenteritis, intra-abdominal pathology. NS bolus, Ativan, Reglan, Benadryl ordered for symptoms. Given this is the second time patient is presenting for the same symptoms and endorsing some mild abdominal pain now we will get CT abdomen and pelvis. CBC without leukocytosis or anemia. CMP unremarkable. Lipase unremarkable. UA negative for UTI. CT abdomen pelvis shows no acute abnormality. At this point in time no clear etiology to explain patient's nausea. Suspect it is secondary to his known cyclic vomiting. On reevaluation, patient's nausea has improved. Patient feels that his home Zofran is not working therefore we will place him on Reglan. Follow-up with his known GI physician and PCP. Return back to the ED symptoms change or worsen. He confirmed understanding the plan. Impression: 1. Nausea and vomiting 2. History of cyclic vomiting syndrome Lab Data Labs: Laboratory Results - last 24 hr 10/13/24 10/13/24 18:55 19:36 WBC 9.7 RBC 5.21 Hgb 16.4 Hct 47.5 MCV 91.2 MCH 31.5 MCHC 34.5 RDW Std Deviation 47.1 H RDW Coeff of [place] 14.0 Plt Count 261 MPV 10.3 Immature Gran % (Auto) 0.200 Neut % (Auto) 71.8 H Lymph % (Auto) 19.1 Republic % (Auto) 7.2 Eos % (Auto) 1.3 Baso % (Auto) 0.4 Absolute Neuts (auto) 6.9 Absolute Lymphs (auto) 1.85 Nucleated RBC % 0 Sodium 136 Potassium 3.5 Chloride 95 L Carbon Dioxide 25.9 Anion Gap 15 BUN 6 Creatinine 0.76 Estim Creat Clear Calc 94.79 Est GFR (MDRD) Non-Af 93 BUN/Creatinine Ratio 8.5 L Glucose 118 H Calcium 10.2 Total Bilirubin 0.64 AST 30 ALT 12 Alkaline Phosphatase 91 Total Protein 7.9 Albumin 4.2 Globulin 3.7 Albumin/Globulin Ratio 1.2 Lipase 36 Urine Color Yellow Urine Clarity Clear Urine pH 8.0 Ur Specific [place] 1.015 Urine Protein Negative Urine Glucose (UA) Normal Urine Ketones Negative Urine Occult Blood Negative Urine Nitrite Negative Urine Bilirubin Negative Urine Urobilinogen Normal Ur Leukocyte Esterase 25 H Urine RBC 0 SEEN Urine WBC 0-5 SEEN Ur Squamous Epith Cells 0-5 SEEN Urine Bacteria 1+ Urine Mucus 0 SEEN Radiography Diagnostic Testing: Clinical Impression(s) from Imaging Studies Abdomen/Pelvis CT 10/13/24 19:07 IMPRESSION: No acute abnormality Reading Location: [facility] Discharge Plan Triage Chief Complaint: Nausea/Vomiting ED Provider: Brock Garcia Dx/Rx/DC Orders Prescriptions: No Action amlodipine 5 mg tablet 5 mg PO DAILY lisinopril 20 MG tablet 20 mg PO BID pantoprazole 40 MG tablet 40 mg PO BID albuterol sulfate 2.5 mg /3 mL (0.083 %) solution for nebulization 2.5 mg inhalation Q6H PRN (Reason: shortness of breath or wheezing) fluvoxamine 100 mg tablet 100 mg PO QHS acetaminophen 325 mg Tablet 650 mg PO Q4H PRN PRN (Reason: Fever, pain 1-10/10) Qty: 0 0RF lorazepam 0.5 mg Tablet 0.5 mg PO Q6H PRN PRN (Reason: Anxiety) Qty: 8 0RF calcium carbonate 200 mg calcium (500 mg) Tablet,Chewable 500 mg PO TIDCM PRN (Reason: DYSPEPSIA/INDIGESTION) Qty: 0 0RF sennosides-docusate sodium [Stimulant Laxative Plus] 8.6-50 mg Tablet 1 tab PO DAILY Qty: 1 0RF doxepin 10 mg capsule 10 - 20 mg PO QHS PRN PRN (Reason: insomnia) Primary Care Provider: Alfred Bailey Referrals: Alfred Bailey DO [Primary Care Provider] - Print Language: Trinidadian
[2024-10-13 19:31] VITALS: BP 156/67; PULSE 88; RESP 18; O2SAT 95
[2024-10-13 19:34] LABS: Lipase 36 U/L (13-75)
[2024-10-13 19:40] LABS: Mucous, Urine 0 SEEN /hpf (<or=2+); Red Blood Cells-Urine 0 SEEN /hpf (0-5)
[2024-10-13 19:41] LABS: AST(SGOT) 30 U/L (<=37); Alanine Aminotransfer ALT/SGPT 12 U/L (<=46); Albumin, Serum 4.2 g/dL (3.4-4.8); Alkaline Phosphatase 91 U/L (40-129); Anion Gap 15 (5-15); BUN 6 mg/dL (4-19); BUN/Creat Ratio 8.5 RATIO (10-20); Calcium,Total 10.2 mg/dL (7.6-11.0); Carbon Dioxide 25.9 mmol/L (21.0-32.0); Chloride 95 mmol/L (98-108); Estimated Creatinine Clearance 94.79 ml/min (50-250); Globulin 3.7 g/dL (2.2-4.2); Glucose 118 mg/dL (70-99); Potassium 3.5 mmol/L (3.3-5.1)
[2024-10-13 19:42] LABS: Color, Urine Yellow (Yellow); Glucose, Dipstick Normal (Normal); Ketone-Dipstick Negative (Negative); Leukocyte Esterase-Dipstick 25 /ul (Negative); Nitrite-Dipstick Negative (Negative); Occult Blood-Urine Negative /ul (Negative); Protein-Dipstick Negative (Negative); Specific Gravity, Urine 1.015 (1.002-1.030); Urine Bilirubin Dipstick Negative (Negative)
[2024-10-13 19:55] LABS: Squamous Epithelial Cells - UA 0-5 SEEN /hpf (0-5)
[2024-10-13 21:00] VITALS: PULSE 88; RESP 19; O2SAT 94
[2024-10-13 21:39] VITALS: BP 159/77; PULSE 90; RESP 18; TEMP 36.8; O2SAT 95
== END 2024-10-13 21:40 | disposition home or self-care (01) ==
PROVIDERS: Emergency Provider Surgery; PCP Family Medicine; Visit Provider Surgery
DX: R11.2 Nausea with vomiting, unspecified (principal); J44.9 Chronic obstructive pulmonary disease, unspecified; Z87.891 Personal history of nicotine dependence; I10 Essential (primary) hypertension; Z85.828 Personal history of other malignant neoplasm of skin; K21.9 Gastro-esophageal reflux disease without esophagitis; Z79.899 Other long term (current) drug therapy; F41.9 Anxiety disorder, unspecified
CPT/HCPCS: 74177; 80053; 81001; 83690; 85025; 96361; 96374; 96375; 99283; Q9967; A4216

== ENCOUNTER 2024-10-15 12:54 | Emergency (ER) | payer MEDICARE, SELFPAY ==
[2024-10-15 12:55] VITALS: BP 149/80; PULSE 96; RESP 14; TEMP 36.7; O2SAT 98; BMI 34.9
--- NOTE | 2024-10-15 14:22 | EX.ED.DYSGE1 ---
HPI History of Present Illness Chief Complaint: Nausea/Vomiting Narrative Narrative: Patient is a 74-year-old male with past medical history of alcohol abuse, anxiety, IBS, GERD, COPD, hypertension, recurrent nausea and vomiting who presents to the emergency department chief complaint of nausea and dry heaving. Patient states that he gets these episodes and he comes in and he states that Ativan, Benadryl and Zofran is the cocktail that he normally receives and this medially helps. He states that he is watched here for a few hours and then he is sent home. He seen multiple doctors he states and they cannot figure out why he is having these episodes. He states that he was here on Tuesday had a CT scan and was normal. Patient states that this episode just started. [facility] Medical History Strain of right psoas muscle Acute pain of right hip Fall Alcohol abuse Alcohol withdrawal Basal cell carcinoma of anterior chest Wears glasses Wears dentures Depression Anxiety Alcohol use Arthritis History of renal disease Back pain Injury of head and neck History of ulceration History of IBS History of diverticulitis Gastric reflux CPAP (continuous positive airway pressure) dependence Former smoker COPD (chronic obstructive pulmonary disease) Shortness of breath on exertion History of pain when walking History of edema History of stress test Encounter for screening for COVID-19 Chest wall contusion (~12/18/20) HTN (hypertension) Home Medications ?Medication ?Instructions ?Recorded ?Last Taken ?Type lisinopril 20 mg tablet 20 mg PO BID blood pressure 03/16/18 05/27/24 History pantoprazole 40 mg tablet,delayed 40 mg PO BID reflux 09/07/19 05/27/24 History release albuterol sulfate 2.5 mg/3 mL 2.5 mg inhalation Q6H PRN 05/18/23 Unknown History (0.083 %) solution for nebulization shortness of breath or wheezing fluvoxamine 100 mg tablet 100 mg PO QHS 05/18/23 05/27/24 History amlodipine 5 mg tablet 5 mg PO DAILY 05/24/23 05/27/24 History acetaminophen 325 mg tablet 650 mg (2 x 325 mg) PO Q4H PRN PRN 04/27/24 Unknown Rx Fever, pain 1-11/16 #0 tabs calcium carbonate 500 mg (2.5 x 200 mg calcium (500 04/27/24 Unknown Rx mg)) PO TIDCM PRN DYSPEPSIA/INDIGESTION #0 tabs lorazepam 0.5 mg tablet 0.5 mg PO Q6H PRN PRN Anxiety #8 04/27/24 05/27/24 Rx tabs sennosides 8.6 mg-docusate sodium 1 tab PO DAILY #1 TAB 04/27/24 Unknown Rx 50 mg tablet (Stimulant Laxative Plus) doxepin 10 mg capsule 10 - 20 mg PO QHS PRN PRN insomnia 05/28/24 05/27/24 History ondansetron 4 mg disintegrating 4 mg PO Q6H PRN nausea and 10/15/24 Unknown Rx tablet vomiting #20 tabs Allergy/AdvReac Type Severity Reaction Status Date / Time amoxicillin Allergy doesnt Verified 10/15/24 12:54 rememeber fluoxetine (From Prozac) AdvReac Other Verified 10/15/24 12:54 Family History Mother Myocardial infarction Hypertension Father Cancer Hypertension Surgical History Hx of colonoscopy Hx of blepharoplasty Hx of esophagogastroduodenoscopy History of eye surgery Social History household members: none Smoking Status: Former smoker how long ago did patient quit smoking: quit 20 yr ago alcohol intake: current Alcohol type: hard liquor substance use type: does not use additional social history: personal hx of PEs ROS ROS ED ROS Narrative Constitutional: Denies any fevers, chills, headache Eyes: Denies double vision Cardiovascular: Denies chest pain Respiratory: Denies shortness of breath Abdomen: Complains of nausea and dry heaving as noted above denies diarrhea denies any abdominal pain : Denies any urinary symptoms Neurological: Denies numbness, weakness, tingling Musculoskeletal: Denies back pain Skin: Denies any rashes or lesions EXAM Physical Exam Narrative Exam Narrative: General: Patient was lying in bed with emesis bag in hand dry heaving Head: Atraumatic, normocephalic Eyes: PERRL bilaterally, EOMI bilateral, no conjunctival injection noted Neck: Soft, supple, trachea midline Cardiovascular: Regular rate and rhythm Respiratory: Clear to auscultation bilaterally Abdomen: Soft, nondistended, no tenderness palpation Extremities: +5/5 strength noted in the bilateral upper and lower extremities, radial pulse +2/4 in the bilateral extremities Neurological: Patient follow commands and that he was at [facility] year is 2024 Skin: Warm, dry, intact no rashes or lesions noted Const Vital Signs: 10/15/24 12:55 10/15/24 14:54 10/15/24 16:00 Temperature 98.1 F Temperature Source Temporal Pulse Rate 96 78 Respiratory Rate 14 Blood Pressure 149/80 H 167/67 H 152/71 H Blood Pressure Mean 103 100 98 Pulse Ox 98 Oxygen Delivery Method Room Air MDM MDM MDM Narrative Medical decision making narrative: Patient is a 74-year-old male who presents to the emergency department chief complaint of nausea and dry heaving. On the differential diagnose includes but not limited to recurrent nausea and vomiting, bowel obstruction although have low suspicion for this as he is passing gas and he has no pain, viral gastroenteritis. Patient will be given IV fluids, Ativan, Benadryl and Zofran. He will be observed and reevaluated. Patient is feeling much improved and would like to go home at this point in time. Patient was observed here in the emergency department until the medication wore off and he became much more awake. He ambulated well here in the emergency department no difficulty is acting appropriate. He is advised to follow-up with gastroenterology as well as other doctors. He is advised to return for worsening symptoms or any concerns. All question concerns answered he is discharged home in stable condition. Discharge Plan Triage Chief Complaint: Nausea/Vomiting ED Provider: Michele Dennison Dx/Rx/DC Orders Clinical Impression: COPD (chronic obstructive pulmonary disease), Irritable bowel syndrome, Hypertension, Nausea & vomiting Prescriptions: New ondansetron 4 mg tablet,disintegrating 4 mg PO Q6H PRN (Reason: nausea and vomiting) Qty: 20 0RF No Action amlodipine 5 mg tablet 5 mg PO DAILY lisinopril 20 MG tablet 20 mg PO BID pantoprazole 40 MG tablet 40 mg PO BID albuterol sulfate 2.5 mg /3 mL (0.083 %) solution for nebulization 2.5 mg inhalation Q6H PRN (Reason: shortness of breath or wheezing) fluvoxamine 100 mg tablet 100 mg PO QHS acetaminophen 325 mg Tablet 650 mg PO Q4H PRN PRN (Reason: Fever, pain 1-11/16) Qty: 0 0RF lorazepam 0.5 mg Tablet 0.5 mg PO Q6H PRN PRN (Reason: Anxiety) Qty: 8 0RF calcium carbonate 200 mg calcium (500 mg) Tablet,Chewable 500 mg PO TIDCM PRN (Reason: DYSPEPSIA/INDIGESTION) Qty: 0 0RF sennosides-docusate sodium [Stimulant Laxative Plus] 8.6-50 mg Tablet 1 tab PO DAILY Qty: 1 0RF doxepin 10 mg capsule 10 - 20 mg PO QHS PRN PRN (Reason: insomnia) Primary Care Provider: Alfred Bailey Referrals: Alfred Bailey DO [Primary Care Provider] - Activity Restrictions/Additional Instructions: Use prescription for nausea as needed though sent to your pharmacy. Follow-up your doctors outpatient setting. Return with worsening symptoms or if concerns Print Language: Occitan Disposition Disposition: Home, Self Care
[2024-10-15] MEDS: 0.9% Normal Saline (1000mL) 1,000 ML 999 ML IV (14:29)
[2024-10-15] MEDS: DiphenhydrAMINE 25 MG, ChlorproMAZINE 50 MG in 0.9% Normal Saline (250mL Bag) 247.5 ML 250 MG IV (14:44)
[2024-10-15 14:54] VITALS: BP 167/67; PULSE 78
[2024-10-15 16:00] VITALS: BP 152/71
[2024-10-15 17:31] VITALS: BP 154/71; PULSE 81; RESP 16; TEMP 36.6; O2SAT 100
--- OUTSIDE RECORDS SUMMARY | 2024-10-15 21:36 | XMS RPT_ITS | CCD ---
Author Organization [facility] ion [facility] CliniSyin Care Team Providers Care Volunteer Services Coordinator Name Role Phone POOL MISTRY, DR KI Nelson JR Primary Care Physician ABHAY MISTRY, DR WILLIE WHITE Attending Lawrence LANZA MD, DR KI Nelson JR Primary Care Lawrence Bailey, Alfred Primary Care Unavailable Bogdan Grover Attending Unavailable Lynn, Alfred Primary Care Unavailable Vick Ruiz Attending Unavailable Lynn, Alfred Primary Care Unavailable Vishnu Doyle Attending Unavailable Vishnu Doyle Referring Unavailable Lynn, Alfred Primary Care Unavailable Willie Blank Attending Unavailable Willie Blank Referring Unavailable Lynn, Alfred Primary Care Unavailable Torey Multani Attending Unavailable Lynn, Alfred Primary Care Unavailable Brock Garcia Attending Unavaillio e Klfideliay-IsidroBrock lemus Referring Unavailabl e Lynn, Alfred Primary Care Unavailable Annie Pyle Attending Unavailable DeweyvilleAnnie Referring Unavailable LynnAlfred Attending Unavailable Lynn, Alfred Primary Care Unavailable Lynn, Alfred Referring Unavailable Lynn, Alfred Primary Care Unavailable LynnAlfred willis Attending Unavailable LynnAlfred Referring Unavailable LynnAlfred Attending Unavailable Lynn, Alfred Primary Care Unavailable Lynn, Alfred Primary Care Unavailable Vick Ruiz Attending Unavailable Lynn, Alfred Primary Care Unavailable Chino Jaimes Attending Unavailable Lynn, Alfred Primary Care Unavailable Jose ManuelustyBrock De Guzman Attending Unavailabl e Lynn, Alfred Primary Care Unavailable Mingo Haddad Attending Unavailable Lynn, Alfred Primary Care Unavailable Patrice Umaña Attending Unavailable Lynn, Alfred Primary Care Unavailable Shahram, Guicho Attending Unavailable Lynn, Alfred Primary Care Unavailable Omalley Guicho Attending Unavailable Lynn, Alfred Primary Care Unavailable Alfred Grijalva Attending Unavailable David Cespedes Admitting Unavailable David Cespedes Consulting Unavailable [place] Rush Consulting Unavailable Alfred Grijalva Consulting Unavailable Lynn, Alfred Referring Unavailable Lynn, Alfred Attending Unavailable Lynn, Alfred Primary Care Unavailable Lynn, Alfred Primary Care Unavailable Alfred Grijalva Attending Unavailable David Cespedes Consulting Unavailable David Cespedes Admitting Unavailable Adri, [place] Consulting Unavailable Lynn, Alfred Primary Care Unavailable Romina Ballard Attending Unavailable Lynn, Alfred Primary Care Unavailable Reynolda OLS, Romina Attending Unavailable Reynolda OLS, Romina Referring Unavailable David Cespedes Attending Unavailable Adri, Bostno Attending Unavailable Valentine, Alfred Referring Unavailable Lynn, Alfred Primary Care Unavailable Sismimi, Vishnu Attending Unavailable Siska, Vishnu Referring Unavailable Lynn, Alfred Referring Unavailable Lynn, Alfred Primary Care Unavailable Sismimi, Vishnu Attending Unavailable Lynn, Alfred Primary Care Unavailable Milena Smith Attending Unavailable Lynn, Alfred Referring Unavailable Lynn, Alfred Referring Unavailable Lynn, Alfred Primary Care Unavailable Milena Smith Attending Unavailable Lynn, Alfred Referring Unavailable Lynn, Alfred Primary Care Unavailable Bandar VARGAS, Camila Seals Attending Unavaillio seals Allergies Allergy Classification Reported Allergen(s) Allergy Type Date of Onset Reaction(s) Facility (1 source) Amoxicillin; Translations: [amoxicillin] Drug Allergy [facility] (1 source) Amoxicillin Drug Allergy 10-13-2024 [facility] Repository (1 source) FLUoxetine Drug Allergy 10-13-2024 [facility] Medications Current Medications Medication Drug [...] (1 source) Hypertensive disorder 08-28-2013 Chronic Other gastrointestinal disorders (1 source) Irritable bowel [...] disc degeneration, lumbar region] Onset: 5 Chronic Unclassified (1 source) Cyclical vomiting syndrome unrelated [...] vomiting, unspecified] Onset: 06-12-2024 08-28-2013 Episodic Other bone disease and musculoskeletal deformities (1 source) Segmental and somatic dysfunction of pelvic region; Translations: [Segmental and somatic dysfunction of pelvic region] Onset: 07-10-2024 Episodic Other bone disease and musculoskeletal deformities (1 source) Segmental and somatic dysfunction of lumbar region; Translations: [Segmental and somatic dysfunction of lumbar region] Onset: 07-10-2024 Episodic Other bone disease and musculoskeletal deformities (1 source) Segmental and somatic dysfunction of thoracic region; Translations: [Segmental and somatic dysfunction of thoracic region] Onset: 07-10-2024 Episodic Other bone disease and musculoskeletal deformities (1 source) Segmental and somatic dysfunction of cervical region; Translations: [Segmental and somatic dysfunction of cervical region] Onset: 07-10-2024 Episodic Other gastrointestinal disorders (1 source) Diarrhea, [...] malignant neoplasm of prostate] Onset: 11-16-2023 Episodic Spondylosis; intervertebral disc disorders; other back problems (1 source) Radiculopathy, lumbar region; Translations: [Radiculopathy, lumbar region] Onset: 07-10-2024 Episodic Sprains and strains (2 sources) Strain of muscle, fascia and tendon of right hip, initial encounter; Translations: [Strain of muscle, fascia and tendon of right hip, initial encounter] Onset: 05-25-2024 Episodic Results Test Name Value Interpretation Reference Range Facil ity Abdomen/Pelvis W IV Cont ONL Yon 10-13-2024 Abdomen/Pelvis W IV Cont ONLY Normal [facility] CBC W/Diff, Automatedon 09-0 Absolute Lymph 1.85 X10 3/uL Normal 0.83-4.51 [facility] Comment on above: Performed By: #### L 500.4050, L501.2450, L100.0100 ####[facility] [address] [place], [address] Absolute Neut 6.9 X10 3/uL Normal 2.0-7.7 [facility] Comment on above: Performed By: #### L 500.4050, L501.2450, L100.0100 ####[facility] [address] [place], [address] Basophils/100 WBC (Bld) 0.4 % Normal 0-1 [facility] Comment on above: Performed By: #### L 500.4050, L501.2450, L100.0100 ####[facility] [address] [place], [address] Eosinophils/100 WBC (Bld) 1.3 % Normal 0-5 [facility] Comment on above: Performed By: #### L 500.4050, L501.2450, L100.0100 ####[facility] [address] [place], [address] Erythrocyte distribution width (RBC) [Ratio] 14.0 % Normal 11.6-14.6 [facility] Comment on above: Performed By: #### L 500.4050, L501.2450, L100.0100 ####[facility] [address] [place], [address] Hematocrit (Bld) [Volume fraction] 47.5 % Normal 40-54 [facility] Comment on above: Performed By: #### L 500.4050, L501.2450, L100.0100 ####[facility] [address] [place], [address] Hemoglobin (Bld) [Mass/Vol] 16.4 g/dL Normal 13.0-16.5 [facility] Comment on above: Performed By: #### L 500.4050, L501.2450, L100.0100 ####[facility] [address] [place], [address] IG% 0.200 Normal 0.0-0.9 [facility] Comment on above: Result Comment: IG% - Immature Granulocytes (promyelocytes, myelocytes andmetamyelocytes) > 1% indicates that a LEFT SHIFT is Present. Performed By: #### L 500.4050, L501.2450, L100.0100 ####[facility] [address] [place], [address] Lymphocytes/100 WBC (Bld) 19.1 % Normal 19-41 [facility] Comment on above: Performed By: #### L 500.4050, L501.2450, L100.0100 ####[facility] [address] [place], [address] MCH (RBC) [Entitic mass] 31.5 pg Normal 27.0-32.0 [facility] Comment on above: Performed By: #### L 500.4050, L501.2450, L100.0100 ####[facility] [address] [place], [address] MCHC (RBC) [Mass/Vol] 34.5 g/dL Normal 32-36 [facility] Comment on above: Performed By: #### L 500.4050, L501.2450, L100.0100 ####[facility] [address] [place], [address] MCV (RBC) [Entitic vol] 91.2 fL Normal 80-94 [facility] Comment on above: Performed By: #### L 500.4050, L501.2450, L100.0100 ####[facility] [address] [place], [address] Monocytes/100 WBC (Bld) 7.2 % Normal 0-10 [facility] Comment on above: Performed By: #### L 500.4050, L501.2450, L100.0100 ####[facility] [address] [place], [address] Neutrophils/100 WBC (Bld) 71.8 % High 47-70 [facility] Comment on above: Performed By: #### L 500.4050, L501.2450, L100.0100 ####[facility] [address] [place], [address] Nucleated RBC (Bld) [#/Vol] 0 10*3/uL Normal 0-5 [facility] Comment on above: Performed By: #### L 500.4050, L501.2450, L100.0100 ####[facility] [address] [place], [address] Platelet mean volume (Bld) [Entitic vol] 10.3 fL Normal 6.2-12.0 [facility] Comment on above: Performed By: #### L 500.4050, L501.2450, L100.0100 ####[facility] [address] [place], [address] Platelets (Bld) [#/Vol] 261 10*3/uL Normal 150-450 [facility] Comment on above: Performed By: #### L 500.4050, L501.2450, L100.0100 ####[facility] [address] [place], [address] RBC (Bld) [#/Vol] 5.21 10*6/uL Normal 4.6-6.2 [facility] Comment on above: Performed By: #### L 500.4050, L501.2450, L100.0100 ####[facility] [address] [place], [address] RDW SD 47.1 fl High 35.1-43.9 [facility] Comment on above: Performed By: #### L 500.4050, L501.2450, L100.0100 ####[facility] [address] [place], [address] WBC (Bld) [#/Vol] 9.7 10*3/uL Normal 4.4-11.0 [facility] Comment on above: Performed By: #### L 500.4050, L501.2450, L100.0100 ####[facility] [address] [place], [address] Absolute Lymph 1.55 X10 3/uL Normal 0.83-4.51 [facility] Comment on above: Performed By: #### L 500.4050, L501.2450, L100.0100 ####[facility] [address] [place], [address] Absolute Neut 6.2 X10 3/uL Normal 2.0-7.7 [facility] Comment on above: Performed By: #### L 500.4050, L501.2450, L100.0100 ####[facility] [address] [place], [address] Basophils/100 WBC (Bld) 0.4 % Normal 0-1 [facility] Comment on above: Performed By: #### L 500.4050, L501.2450, L100.0100 ####[facility] [address] [place], [address] Eosinophils/100 WBC (Bld) 0.8 % Normal 0-5 [facility] Comment on above: Performed By: #### L 500.4050, L501.2450, L100.0100 ####[facility] [address] [place], [address] Erythrocyte distribution width (RBC) [Ratio] 13.8 % Normal 11.6-14.6 [facility] Comment on above: Performed By: #### L 500.4050, L501.2450, L100.0100 ####[facility] [address] [place], [address] Hematocrit (Bld) [Volume fraction] 44.2 % Normal 40-54 [facility] Comment on above: Performed By: #### L 500.4050, L501.2450, L100.0100 ####[facility] [address] [place], [address] Hemoglobin (Bld) [Mass/Vol] 15.5 g/dL Normal 13.0-16.5 [facility] Comment on above: Performed By: #### L 500.4050, L501.2450, L100.0100 ####[facility] [address] [place], [address] IG% 0.200 Normal 0.0-0.9 [facility] Comment on above: Result Comment: IG% - Immature Granulocytes (promyelocytes, myelocytes andmetamyelocytes) > 1% indicates that a LEFT SHIFT is Present. Performed By: #### L 500.4050, L501.2450, L100.0100 ####[facility] [address] [place], [address] Lymphocytes/100 WBC (Bld) 18.1 % Low 19-41 [facility] Comment on above: Performed By: #### L 500.4050, L501.2450, L100.0100 ####[facility] [address] [place], [address] MCH (RBC) [Entitic mass] 31.7 pg Normal 27.0-32.0 [facility] Comment on above: Performed By: #### L 500.4050, L501.2450, L100.0100 ####[facility] [address] [place], [address] MCHC (RBC) [Mass/Vol] 35.1 g/dL Normal 32-36 [facility] Comment on above: Performed By: #### L 500.4050, L501.2450, L100.0100 ####[facility] [address] [place], [address] MCV (RBC) [Entitic vol] 90.4 fL Normal 80-94 [facility] Comment on above: Performed By: #### L 500.4050, L501.2450, L100.0100 ####[facility] [address] [place], [address] Monocytes/100 WBC (Bld) 8.3 % Normal 0-10 [facility] Comment on above: Performed By: #### L 500.4050, L501.2450, L100.0100 ####[facility] [address] [place], [address] Neutrophils/100 WBC (Bld) 72.2 % High 47-70 [facility] Comment on above: Performed By: #### L 500.4050, L501.2450, L100.0100 ####[facility] [address] [place], [address] Nucleated RBC (Bld) [#/Vol] 0 10*3/uL Normal 0-5 [facility] Comment on above: Performed By: #### L 500.4050, L501.2450, L100.0100 ####[facility] [address] [place], [address] Platelet mean volume (Bld) [Entitic vol] 9.7 fL Normal 6.2-12.0 [facility] Comment on above: Performed By: #### L 500.4050, L501.2450, L100.0100 ####[facility] [address] [place], [address] Platelets (Bld) [#/Vol] 226 10*3/uL Normal 150-450 [facility] Comment on above: Performed By: #### L 500.4050, L501.2450, L100.0100 ####[facility] [address] [place], [address] RBC (Bld) [#/Vol] 4.89 10*6/uL Normal 4.6-6.2 [facility] Comment on above: Performed By: #### L 500.4050, L501.2450, L100.0100 ####[facility] [address] [place], [address] RDW SD 45.7 fl High 35.1-43.9 [facility] Comment on above: Performed By: #### L 500.4050, L501.2450, L100.0100 ####[facility] [address] [place], [address] WBC (Bld) [#/Vol] 8.6 10*3/uL Normal 4.4-11.0 [facility] Comment on above: Performed By: #### L 500.4050, L501.2450, L100.0100 ####[facility] [address] [place], [address] Comprehensive Metabolic Prof ilon 10-13-2024 Albumin [Mass/Vol] 4.2 g/dL Normal 3.4-4.8 [facility] Comment on above: Performed By: #### L 500.4050, L501.2450, L100.0100 ####[facility] [address] [place], [address] Albumin/Globulin [Mass ratio] 1.2 {ratio} Normal 0.9-2.4 [facility] Comment on above: Performed By: #### L 500.4050, L501.2450, L100.0100 ####[facility] [address] [place], [address] ALK PHOS 91 U/L Normal 40-129 [facility] Comment on above: Performed By: #### L 500.4050, L501.2450, L100.0100 ####[facility] [address] [place], [address] ALT [Catalytic activity/Vol] 12 U/L Normal <=46 [facility] Comment on above: Performed By: #### L 500.4050, L501.2450, L100.0100 ####[facility] [address] [place], [address] AST [Catalytic activity/Vol] 30 U/L Normal <=37 [facility] Comment on above: Result Comment: Hemo lysis present, Results??could be affected.?? Performed By: #### L 500.4050, L501.2450, L100.0100 ####[facility] [address] [place], [address] Bilirubin [Mass/Vol] 0.64 mg/dL Normal 0.00-1.30 [facility] Comment on above: Performed By: #### L 500.4050, L501.2450, L100.0100 ####[facility] [address] [place], [address] BUN/CRE 8.5 RATIO Low 10-20 [facility] Comment on above: Performed By: #### L 500.4050, L501.2450, L100.0100 ####[facility] [address] [place], [address] Calcium [Mass/Vol] 10.2 mg/dL Normal 7.6-11.0 [facility] Comment on above: Performed By: #### L 500.4050, L501.2450, L100.0100 ####[facility] [address] [place], [address] Chloride [Moles/Vol] 95 mmol/L Low 98-108 [facility] Comment on above: Performed By: #### L 500.4050, L501.2450, L100.0100 ####[facility] [address] [place], [address] CO2 [Moles/Vol] 25.9 mmol/L Normal 21.0-32.0 [facility] Comment on above: Performed By: #### L 500.4050, L501.2450, L100.0100 ####[facility] [address] [place], [address] Creatinine [Mass/Vol] 0.76 mg/dL Normal 0.70-1.20 [facility] Comment on above: Performed By: #### L 500.4050, L501.2450, L100.0100 ####[facility] [address] [place], [address] ECRCL 94.79 ml/min Normal 50-250 [facility] Comment on above: Performed By: #### L 500.4050, L501.2450, L100.0100 ####[facility] [address] [place], [address] GAP 15 Normal 5-15 [facility] Comment on above: Performed By: #### L 500.4050, L501.2450, L100.0100 ####[facility] [address] [place], [address] GFR/1.73 sq M.predicted among non-blacks MDRD (S/P/Bld) [Vol rate/Area] 93 mL/min/{1.73_m2} Normal >60 [facility] Comment on above: Result Comment: mL/m in/1.73m2 CKD-EPI Creatinine Equation (2020) Performed By: #### L 500.4050, L501.2450, L100.0100 ####[facility] [address] [place], [address] Globulin (S) [Mass/Vol] 3.7 g/dL Normal 2.2-4.2 [facility] Comment on above: Performed By: #### L 500.4050, L501.2450, L100.0100 ####[facility] [address] [place], [address] Glucose [Mass/Vol] 118 mg/dL High 70-99 [facility] Comment on above: Performed By: #### L 500.4050, L501.2450, L100.0100 ####[facility] [address] [place], [address] Potassium [Moles/Vol] 3.5 mmol/L Normal 3.3-5.1 [facility] Comment on above: Result Comment: Hemo lysis present, Results??could be affected.?? Performed By: #### L 500.4050, L501.2450, L100.0100 ####[facility] [address] [place], [address] Sodium [Moles/Vol] 136 mmol/L Normal 133-145 [facility] Comment on above: Performed By: #### L 500.4050, L501.2450, L100.0100 ####[facility] [address] [place], [address] T PROT 7.9 g/dL Normal 5.9-8.4 [facility] Comment on above: Performed By: #### L 500.4050, L501.2450, L100.0100 ####[facility] [address] [place], [address] Urea nitrogen [Mass/Vol] 6 mg/dL Normal 4-19 [facility] Comment on above: Performed By: #### L 500.4050, L501.2450, L100.0100 ####[facility] [address] [place], [address] Albumin [Mass/Vol] 3.9 g/dL Normal 3.4-4.8 [facility] Comment on above: Performed By: #### L 500.4050, L501.2450, L100.0100 ####[facility] [address] [place], [address] Albumin/Globulin [Mass ratio] 1.1 {ratio} Normal 0.9-2.4 [facility] Comment on above: Performed By: #### L 500.4050, L501.2450, L100.0100 ####[facility] [address] [place], [address] ALK PHOS 87 U/L Normal 40-129 [facility] Comment on above: Performed By: #### L 500.4050, L501.2450, L100.0100 ####[facility] [address] [place], [address] ALT [Catalytic activity/Vol] 12 U/L Normal <=46 [facility] Comment on above: Performed By: #### L 500.4050, L501.2450, L100.0100 ####[facility] [address] [place], [address] AST [Catalytic activity/Vol] 22 U/L Normal <=37 [facility] Comment on above: Performed By: #### L 500.4050, L501.2450, L100.0100 ####[facility] [address] [place], [address] Bilirubin [Mass/Vol] 0.64 mg/dL Normal 0.00-1.30 [facility] Comment on above: Performed By: #### L 500.4050, L501.2450, L100.0100 ####[facility] [address] [place], [address] BUN/CRE 9.8 RATIO Low 10-20 [facility] Comment on above: Performed By: #### L 500.4050, L501.2450, L100.0100 ####[facility] [address] [place], [address] Calcium [Mass/Vol] 10.4 mg/dL Normal 7.6-11.0 [facility] Comment on above: Performed By: #### L 500.4050, L501.2450, L100.0100 ####[facility] [facility] [address] [place], [address] Chloride [Moles/Vol] 95 mmol/L Low 98-108 [facility] Comment on above: Performed By: #### L 500.4050, L501.2450, L100.0100 ####[facility] [address] [place], [address] CO2 [Moles/Vol] 25.5 mmol/L Normal 21.0-32.0 [facility] Comment on above: Performed By: #### L 500.4050, L501.2450, L100.0100 ####[facility] [address] [place], [address] Creatinine [Mass/Vol] 0.72 mg/dL Normal 0.70-1.20 [facility] Comment on above: Performed By: #### L 500.4050, L501.2450, L100.0100 ####[facility] [address] [place], [address] ECRCL 97.38 ml/min Normal 50-250 [facility] Comment on above: Performed By: #### L 500.4050, L501.2450, L100.0100 ####[facility] [address] [place], [address] GAP 15 Normal 5-15 [facility] Comment on above: Performed By: #### L 500.4050, L501.2450, L100.0100 ####[facility] [address] [place], [address] GFR/1.73 sq M.predicted among non-blacks MDRD (S/P/Bld) [Vol rate/Area] 95 mL/min/{1.73_m2} Normal >60 [facility] Comment on above: Result Comment: mL/m in/1.73m2 CKD-EPI Creatinine Equation (2020) Performed By: #### L 500.4050, L501.2450, L100.0100 ####[facility] [address] [place], [address] Globulin (S) [Mass/Vol] 3.5 g/dL Normal 2.2-4.2 [facility] Comment on above: Performed By: #### L 500.4050, L501.2450, L100.0100 ####[facility] [address] [place], [address] Glucose [Mass/Vol] 144 mg/dL High 70-99 [facility] Comment on above: Performed By: #### L 500.4050, L501.2450, L100.0100 ####[facility] [address] [place], [address] Potassium [Moles/Vol] 3.1 mmol/L Low 3.3-5.1 [facility] Comment on above: Performed By: #### L 500.4050, L501.2450, L100.0100 ####[facility] [address] [place], [address] Sodium [Moles/Vol] 136 mmol/L Normal 133-145 [facility] Comment on above: Performed By: #### L 500.4050, L501.2450, L100.0100 ####[facility] [address] [place], [address] T PROT 7.5 g/dL Normal 5.9-8.4 [facility] Comment on above: Performed By: #### L 500.4050, L501.2450, L100.0100 ####[facility] [address] [place], [address] Urea nitrogen [Mass/Vol] 7 mg/dL Normal 4-19 [facility] Comment on above: Performed By: #### L 500.4050, L501.2450, L100.0100 ####[facility] [address] [place], [address] Emergency Department Summary on 10-13-2024 Emergency Department Summary Normal [facility] Emergency Department Summary Normal [facility] Lipaseon 10-13-2024 Lipase [Catalytic activity/Vol] 36 U/L Normal 13-75 [facility] Comment on above: Result Comment: Plea se note:LIPASE revised reference range effective 22.New Lipase methodology. Expected to produce lower valuesthan the previous assay method.NEW Reference Range: 13 - 75 U/L Performed By: #### L 500.4050, L501.2450, L100.0100 ####[facility] [address] [place], [address] Lipase [Catalytic activity/Vol] 33 U/L Normal 13-75 [facility] Comment on above: Result Comment: Plea se note:LIPASE revised reference range effective 22.New Lipase methodology. Expected to produce lower valuesthan the previous assay method.NEW Reference Range: 13 - 75 U/L Performed By: #### L 500.4050, L501.2450, L100.0100 ####[facility] [address] [place], [address] Urinalysis, Completeon 10-13 BACTERIA 1+ /hpf Normal None Seen [facility] Comment on above: Order Comment: CLEAN CATCH Performed By: #### L 400.0001 ####[facility] [address] [place], [address] EPI,SQUAMOUS 0-5 SEEN Normal 0-5 [facility] Comment on above: Order Comment: CLEAN CATCH Performed By: #### L 400.0001 ####[facility] [address] [place], [address] WBC 0-5 SEEN Normal 0-5 [facility] Comment on above: Order Comment: CLEAN CATCH Performed By: #### L 400.0001 ####[facility] [address] [place], [address] Mucus Ql (Urine sed) 0 SEEN Normal [facility] Comment on above: Order Comment: CLEAN CATCH Performed By: #### L 400.0001 ####[facility] [address] [place], [address] RBC 0 SEEN Normal 0-5 [facility] Comment on above: Order Comment: CLEAN CATCH Performed By: #### L 400.0001 ####[facility] [address] [place], [address] CBC W/Diff, Automatedon 08-2 Absolute Neut Normal 2.0-7.7 [facility] Comment on above: Result Comment: Canc elled via OM: MD Ordered Performed By: #### L 100.0100 ####[facility] [address] [place], [address] HCT Normal 40-54 [facility] Comment on above: Result Comment: Canc elled via OM: MD Ordered Performed By: #### L 100.0100 ####[facility] [address] [place], [address] HGB Normal 13.0-16.5 [facility] Comment on above: Result Comment: Canc elled via OM: MD Ordered Performed By: #### L 100.0100 ####[facility] [address] [place], [address] MCH Normal 27.0-32.0 [facility] Comment on above: Result Comment: Canc elled via OM: MD Ordered Performed By: #### L 100.0100 ####[facility] [address] [place], [address] MCHC Normal 32-36 [facility] Comment on above: Result Comment: Canc elled via OM: MD Ordered Performed By: #### L 100.0100 ####[facility] [address] [place], [address] MCV Normal 80-94 [facility] Comment on above: Result Comment: Canc elled via OM: MD Ordered Performed By: #### L 100.0100 ####[facility] [address] [place], [address] NEUT% Normal 47-70 [facility] Comment on above: Result Comment: Canc elled via OM: MD Ordered Performed By: #### L 100.0100 ####[facility] [address] [place], [address] PLT Normal 150-450 [facility] Comment on above: Result Comment: Canc elled via OM: MD Ordered Performed By: #### L 100.0100 ####[facility] [address] [place], [address] RBC Normal 4.6-6.2 [facility] Comment on above: Result Comment: Canc elled via OM: MD Ordered Performed By: #### L 100.0100 ####[facility] [address] [place], [address] RDW CV Normal 11.6-14.6 [facility] Comment on above: Result Comment: Canc elled via OM: MD Ordered Performed By: #### L 100.0100 ####[facility] [address] [place], [address] RDW SD Normal 35.1-43.9 [facility] Comment on above: Result Comment: Canc elled via OM: MD Ordered Performed By: #### L 100.0100 ####[facility] [address] [place], [address] WBC Normal 4.4-11.0 [facility] Comment on above: Result Comment: Canc elled via OM: MD Ordered Performed By: #### L 100.0100 ####[facility] [address] [place], [address] Emergency Department Summary on 10-01-2024 Emergency Department Summary Normal [facility] Emergency Department Summary on 07-25-2024 Emergency Department Summary Normal [facility] 12 Lead EKGon 07-14-2024 12 Lead EKG Normal [facility] CBC W/Diff, Automatedon - Absolute Lymph 0.84 X10 3/uL Normal 0.83-4.51 [facility] Comment on above: Performed By: #### L 500.4050, L100.0100 ####[facility] [address] [place], [address] Absolute Neut 8.0 X10 3/uL High 2.0-7.7 [facility] Comment on above: Performed By: #### L 500.4050, L100.0100 ####[facility] [address] [place], [address] Basophils/100 WBC (Bld) 0.4 % Normal 0-1 [facility] Comment on above: Performed By: #### L 500.4050, L100.0100 ####[facility] [address] [place], [address] Eosinophils/100 WBC (Bld) 0.1 % Normal 0-5 [facility] Comment on above: Performed By: #### L 500.4050, L100.0100 ####[facility] [address] [place], [address] Erythrocyte distribution width (RBC) [Ratio] 12.9 % Normal 11.6-14.6 [facility] Comment on above: Performed By: #### L 500.4050, L100.0100 ####[facility] [address] [place], [address] Hematocrit (Bld) [Volume fraction] 37.2 % Low 40-54 [facility] Comment on above: Performed By: #### L 500.4050, L100.0100 ####[facility] [address] [place], [address] Hemoglobin (Bld) [Mass/Vol] 13.2 g/dL Normal 13.0-16.5 [facility] Comment on above: Performed By: #### L 500.4050, L100.0100 ####[facility] [address] [place], [address] IG% 0.400 Normal 0.0-0.9 [facility] Comment on above: Result Comment: IG% - Immature Granulocytes (promyelocytes, myelocytes andmetamyelocytes) > 1% indicates that a LEFT SHIFT is Present. Performed By: #### L 500.4050, L100.0100 ####[facility] [address] [place], [address] Lymphocytes/100 WBC (Bld) 8.9 % Low 19-41 [facility] Comment on above: Performed By: #### L 500.4050, L100.0100 ####[facility] [address] [place], [address] MCH (RBC) [Entitic mass] 32.0 pg Normal 27.0-32.0 [facility] Comment on above: Performed By: #### L 500.4050, L100.0100 ####[facility] [address] [place], [address] MCHC (RBC) [Mass/Vol] 35.5 g/dL Normal 32-36 [facility] Comment on above: Performed By: #### L 500.4050, L100.0100 ####[facility] [address] [place], [address] MCV (RBC) [Entitic vol] 90.3 fL Normal 80-94 [facility] Comment on above: Performed By: #### L 500.4050, L100.0100 ####[facility] [address] [place], [address] Monocytes/100 WBC (Bld) 5.2 % Normal 0-10 [facility] Comment on above: Performed By: #### L 500.4050, L100.0100 ####[facility] [address] [place], [address] Neutrophils/100 WBC (Bld) 85.0 % High 47-70 [facility] Comment on above: Performed By: #### L 500.4050, L100.0100 ####[facility] [address] [place], [address] Nucleated RBC (Bld) [#/Vol] 0 10*3/uL Normal 0-5 [facility] Comment on above: Performed By: #### L 500.4050, L100.0100 ####[facility] [address] [place], [address] Platelet mean volume (Bld) [Entitic vol] 9.9 fL Normal 6.2-12.0 [facility] Comment on above: Performed By: #### L 500.4050, L100.0100 ####[facility] [address] [place], [address] Platelets (Bld) [#/Vol] 221 10*3/uL Normal 150-450 [facility] Comment on above: Performed By: #### L 500.4050, L100.0100 ####[facility] [address] [place], [address] RBC (Bld) [#/Vol] 4.12 10*6/uL Low 4.6-6.2 [facility] Comment on above: Performed By: #### L 500.4050, L100.0100 ####[facility] [address] [place], [address] RDW SD 42.5 fl Normal 35.1-43.9 [facility] Comment on above: Performed By: #### L 500.4050, L100.0100 ####[facility] [address] [place], [address] WBC (Bld) [#/Vol] 9.5 10*3/uL Normal 4.4-11.0 [facility] Comment on above: Performed By: #### L 500.4050, L100.0100 ####[facility] [address] [place], [address] Comprehensive Metabolic Prof ilon 07-14-2024 Albumin [Mass/Vol] 3.8 g/dL Normal 3.4-4.8 [facility] Comment on above: Performed By: #### L 500.4050, L100.0100 ####[facility] [address] [place], [address] Albumin/Globulin [Mass ratio] 1.2 {ratio} Normal 0.9-2.4 [facility] Comment on above: Performed By: #### L 500.4050, L100.0100 ####[facility] [address] [place], [address] ALK PHOS 89 U/L Normal 40-129 [facility] Comment on above: Performed By: #### L 500.4050, L100.0100 ####[facility] [address] [place], [address] ALT [Catalytic activity/Vol] 14 U/L Normal <=46 [facility] Comment on above: Performed By: #### L 500.4050, L100.0100 ####[facility] [address] [place], [address] AST [Catalytic activity/Vol] 26 U/L Normal <=37 [facility] Comment on above: Result Comment: Hemo lysis present, Results??could be affected.?? Performed By: #### L 500.4050, L100.0100 ####[facility] [address] [place], [address] Bilirubin [Mass/Vol] 0.41 mg/dL Normal 0.00-1.30 [facility] Comment on above: Performed By: #### L 500.4050, L100.0100 ####[facility] [address] [place], [address] BUN/CRE 14.0 RATIO Normal 10-20 [facility] Comment on above: Performed By: #### L 500.4050, L100.0100 ####[facility] [address] [place], [address] Calcium [Mass/Vol] 8.9 mg/dL Normal 7.6-11.0 [facility] Comment on above: Performed By: #### L 500.4050, L100.0100 ####[facility] [address] [place], [address] Chloride [Moles/Vol] 101 mmol/L Normal 98-108 [facility] Comment on above: Performed By: #### L 500.4050, L100.0100 ####[facility] [address] [place], [address] CO2 [Moles/Vol] 27.0 mmol/L Normal 21.0-32.0 [facility] Comment on above: Performed By: #### L 500.4050, L100.0100 ####[facility] [address] [place], [address] Creatinine [Mass/Vol] 0.74 mg/dL Normal 0.70-1.20 [facility] Comment on above: Performed By: #### L 500.4050, L100.0100 ####[facility] [address] [place], [address] GAP 12 Normal 5-15 [facility] Comment on above: Performed By: #### L 500.4050, L100.0100 ####[facility] [address] [place], [address] GFR/1.73 sq M.predicted among non-blacks MDRD (S/P/Bld) [Vol rate/Area] 94 mL/min/{1.73_m2} Normal >60 [facility] Comment on above: Result Comment: mL/m in/1.73m2 CKD-EPI Creatinine Equation (2020) Performed By: #### L 500.4050, L100.0100 ####[facility] [address] [place], [address] Globulin (S) [Mass/Vol] 3.1 g/dL Normal 2.2-4.2 [facility] Comment on above: Performed By: #### L 500.4050, L100.0100 ####[facility] [address] [place], [address] Glucose [Mass/Vol] 125 mg/dL High 70-99 [facility] Comment on above: Performed By: #### L 500.4050, L100.0100 ####[facility] [address] [place], [address] Potassium [Moles/Vol] 4.0 mmol/L Normal 3.3-5.1 [facility] Comment on above: Result Comment: Hemo lysis present, Results??could be affected.?? Performed By: #### L 500.4050, L100.0100 ####[facility] [address] [place], [address] Sodium [Moles/Vol] 140 mmol/L Normal 133-145 [facility] Comment on above: Performed By: #### L 500.4050, L100.0100 ####[facility] [address] [place], [address] T PROT 6.9 g/dL Normal 5.9-8.4 [facility] Comment on above: Performed By: #### L 500.4050, L100.0100 ####[facility] [address] [place], [address] Urea nitrogen [Mass/Vol] 10 mg/dL Normal 4-19 [facility] Comment on above: Performed By: #### L 500.4050, L100.0100 ####[facility] [address] [place], [address] Emergency Department Summary on 07-14-2024 Emergency Department Summary Normal [facility] Lactic Acidon 07-14-2024 Lactate [Moles/Vol] 1.4 mmol/L Normal 0.0-2.0 [facility] Comment on above: Order Comment: Y Performed By: #### L 503.6005 ####[facility] [address] [place], [address] Chiropractic Reporton 2024 Chiropractic Report Normal [facility] Chiropractic Reporton 2024 Chiropractic Report Normal [facility] Basic Metabolic Profile (BMP )on 06-21-2024 BUN/CRE 15.6 RATIO Normal 10-20 [facility] Comment on above: Performed By: #### L 500.2500 ####[facility] [address] [place], [address] Calcium [Mass/Vol] 9.8 mg/dL Normal 7.6-11.0 [facility] Comment on above: Performed By: #### L 500.2500 ####[facility] [address] [place], [address] Chloride [Moles/Vol] 101 mmol/L Normal 98-108 [facility] Comment on above: Performed By: #### L 500.2500 ####[facility] [address] [place], [address] CO2 [Moles/Vol] 23.2 mmol/L Normal 21.0-32.0 [facility] Comment on above: Performed By: #### L 500.2500 ####[facility] [address] [place], [address] Creatinine [Mass/Vol] 0.90 mg/dL Normal 0.70-1.20 [facility] Comment on above: Performed By: #### L 500.2500 ####[facility] [address] [place], [address] GAP 13 Normal 5-15 [facility] Comment on above: Performed By: #### L 500.2500 ####[facility] [address] [place], [address] GFR/1.73 sq M.predicted among non-blacks MDRD (S/P/Bld) [Vol rate/Area] 88 mL/min/{1.73_m2} Normal >60 [facility] Comment on above: Result Comment: mL/m in/1.73m2 CKD-EPI Creatinine Equation (2020) Performed By: #### L 500.2500 ####[facility] [address] [place], [address] Glucose [Mass/Vol] 102 mg/dL High 70-99 [facility] Comment on above: Performed By: #### L 500.2500 ####[facility] [address] [place], [address] Potassium [Moles/Vol] 3.9 mmol/L Normal 3.3-5.1 [facility] Comment on above: Performed By: #### L 500.2500 ####[facility] [address] [place], [address] Sodium [Moles/Vol] 137 mmol/L Normal 133-145 [facility] Comment on above: Performed By: #### L 500.2500 ####[facility] [address] [place], [address] Urea nitrogen [Mass/Vol] 14 mg/dL Normal 4-19 [facility] Comment on above: Performed By: #### L 500.2500 ####[facility] [address] [place], [address] Basic Metabolic Profile (BMP )on 06-07-2024 BUN/CRE 17.6 RATIO Normal 10-20 [facility] Comment on above: Performed By: #### L 500.2500 ####[facility] [address] [place], [address] Calcium [Mass/Vol] 8.9 mg/dL Normal 7.6-11.0 [facility] Comment on above: Performed By: #### L 500.2500 ####[facility] [address] [place], [address] Chloride [Moles/Vol] 93 mmol/L Low 98-108 [facility] Comment on above: Performed By: #### L 500.2500 ####[facility] [address] [place], [address] CO2 [Moles/Vol] 21.2 mmol/L Normal 21.0-32.0 [facility] Comment on above: Performed By: #### L 500.2500 ####[facility] [address] [place], [address] Creatinine [Mass/Vol] 0.63 mg/dL Low 0.70-1.20 [facility] Comment on above: Performed By: #### L 500.2500 ####[facility] [address] [place], [address] ECRCL 95.23 ml/min Normal 50-250 [facility] Comment on above: Performed By: #### L 500.2500 ####[facility] [address] [place], [address] GAP 13 Normal 5-15 [facility] Comment on above: Performed By: #### L 500.2500 ####[facility] [address] [place], [address] GFR/1.73 sq M.predicted among non-blacks MDRD (S/P/Bld) [Vol rate/Area] 99 mL/min/{1.73_m2} Normal >60 [facility] Comment on above: Result Comment: mL/m in/1.73m2 CKD-EPI Creatinine Equation (2020) Performed By: #### L 500.2500 ####[facility] [address] [place], [address] Glucose [Mass/Vol] 119 mg/dL High 70-99 [facility] Comment on above: Performed By: #### L 500.2500 ####[facility] [address] [place], [address] Potassium [Moles/Vol] 3.8 mmol/L Normal 3.3-5.1 [facility] Comment on above: Performed By: #### L 500.2500 ####[facility] [address] [place], [address] Sodium [Moles/Vol] 128 mmol/L Low 133-145 [facility] Comment on above: Performed By: #### L 500.2500 ####[facility] [address] [place], [address] Urea nitrogen [Mass/Vol] 11 mg/dL Normal 4-19 [facility] Comment on above: Performed By: #### L 500.2500 ####[facility] [address] [place], [address] BUN/CRE 18.6 RATIO Normal 10-20 [facility] Comment on above: Performed By: #### L 100.0100, L500.2500 ####[facility] [address] [place], [address] Calcium [Mass/Vol] 9.3 mg/dL Normal 7.6-11.0 [facility] Comment on above: Performed By: #### L 100.0100, L500.2500 ####[facility] [address] [place], [address] Chloride [Moles/Vol] 91 mmol/L Low 98-108 [facility] Comment on above: Performed By: #### L 100.0100, L500.2500 ####[facility] [address] [place], [address] CO2 [Moles/Vol] 21.8 mmol/L Normal 21.0-32.0 [facility] Comment on above: Performed By: #### L 100.0100, L500.2500 ####[facility] [address] [place], [address] Creatinine [Mass/Vol] 0.68 mg/dL Low 0.70-1.20 [facility] Comment on above: Performed By: #### L 100.0100, L500.2500 ####[facility] [address] [place], [address] ECRCL 95.23 ml/min Normal 50-250 [facility] Comment on above: Performed By: #### L 100.0100, L500.2500 ####[facility] [address] [place], [address] GAP 14 Normal 5-15 [facility] Comment on above: Performed By: #### L 100.0100, L500.2500 ####[facility] [address] [place], [address] GFR/1.73 sq M.predicted among non-blacks MDRD (S/P/Bld) [Vol rate/Area] 97 mL/min/{1.73_m2} Normal >60 [facility] Comment on above: Result Comment: mL/m in/1.73m2 CKD-EPI Creatinine Equation (2020) Performed By: #### L 100.0100, L500.2500 ####[facility] [address] [place], [address] Glucose [Mass/Vol] 116 mg/dL High 70-99 [facility] Comment on above: Performed By: #### L 100.0100, L500.2500 ####[facility] [address] [place], [address] Potassium [Moles/Vol] 4.0 mmol/L Normal 3.3-5.1 [facility] Comment on above: Result Comment: Hemo lysis present, Results??could be affected.?? Performed By: #### L 100.0100, L500.2500 ####[facility] [address] [place], [address] Sodium [Moles/Vol] 127 mmol/L Low 133-145 [facility] Comment on above: Performed By: #### L 100.0100, L500.2500 ####[facility] [address] [place], [address] Urea nitrogen [Mass/Vol] 13 mg/dL Normal 4-19 [facility] Comment on above: Performed By: #### L 100.0100, L500.2500 ####[facility] [address] [place], [address] CBC W/Diff, Automatedon 05-0 1-2025 Absolute Lymph 1.01 X10 3/uL Normal 0.83-4.51 [facility] Comment on above: Performed By: #### L 100.0100, L500.2500 ####[facility] [address] [place], [address] Absolute Neut 12.6 X10 3/uL High 2.0-7.7 [facility] Comment on above: Performed By: #### L 100.0100, L500.2500 ####[facility] [address] [place], [address] Basophils/100 WBC (Bld) 0.2 % Normal 0-1 [facility] Comment on above: Performed By: #### L 100.0100, L500.2500 ####[facility] [address] [place], [address] Eosinophils/100 WBC (Bld) 0.0 % Normal 0-5 [facility] Comment on above: Performed By: #### L 100.0100, L500.2500 ####[facility] [address] [place], [address] Erythrocyte distribution width (RBC) [Ratio] 12.9 % Normal 11.6-14.6 [facility] Comment on above: Performed By: #### L 100.0100, L500.2500 ####[facility] [address] [place], [address] Hematocrit (Bld) [Volume fraction] 39.2 % Low 40-54 [facility] Comment on above: Performed By: #### L 100.0100, L500.2500 ####[facility] [address] [place], [address] Hemoglobin (Bld) [Mass/Vol] 13.8 g/dL Normal 13.0-16.5 [facility] Comment on above: Performed By: #### L 100.0100, L500.2500 ####[facility] [address] [place], [address] IG% 0.400 Normal 0.0-0.9 [facility] Comment on above: Result Comment: IG% - Immature Granulocytes (promyelocytes, myelocytes andmetamyelocytes) > 1% indicates that a LEFT SHIFT is Present. Performed By: #### L 100.0100, L500.2500 ####[facility] [address] [place], [address] Lymphocytes/100 WBC (Bld) 7.0 % Low 19-41 [facility] Comment on above: Performed By: #### L 100.0100, L500.2500 ####[facility] [address] [place], [address] MCH (RBC) [Entitic mass] 32.1 pg High 27.0-32.0 [facility] Comment on above: Performed By: #### L 100.0100, L500.2500 ####[facility] [address] [place], [address] MCHC (RBC) [Mass/Vol] 35.2 g/dL Normal 32-36 [facility] Comment on above: Performed By: #### L 100.0100, L500.2500 ####[facility] [address] [place], [address] MCV (RBC) [Entitic vol] 91.2 fL Normal 80-94 [facility] Comment on above: Performed By: #### L 100.0100, L500.2500 ####[facility] [address] [place], [address] Monocytes/100 WBC (Bld) 4.5 % Normal 0-10 [facility] Comment on above: Performed By: #### L 100.0100, L500.2500 ####[facility] [address] [place], [address] Neutrophils/100 WBC (Bld) 87.9 % High 47-70 [facility] Comment on above: Performed By: #### L 100.0100, L500.2500 ####[facility] [address] [place], [address] Nucleated RBC (Bld) [#/Vol] 0 10*3/uL Normal 0-5 [facility] Comment on above: Performed By: #### L 100.0100, L500.2500 ####[facility] [address] [place], [address] Platelet mean volume (Bld) [Entitic vol] 9.6 fL Normal 6.2-12.0 [facility] Comment on above: Performed By: #### L 100.0100, L500.2500 ####[facility] [address] [place], [address] Platelets (Bld) [#/Vol] 306 10*3/uL Normal 150-450 [facility] Comment on above: Performed By: #### L 100.0100, L500.2500 ####[facility] [address] [place], [address] RBC (Bld) [#/Vol] 4.30 10*6/uL Low 4.6-6.2 [facility] Comment on above: Performed By: #### L 100.0100, L500.2500 ####[facility] [address] [place], [address] RDW SD 43.0 fl Normal 35.1-43.9 [facility] Comment on above: Performed By: #### L 100.0100, L500.2500 ####[facility] [address] [place], [address] WBC (Bld) [#/Vol] 14.3 10*3/uL High 4.4-11.0 [facility] Comment on above: Performed By: #### L 100.0100, L500.2500 ####[facility] [address] [place], [address] Emergency Department Summary on 06-07-2024 Emergency Department Summary Normal [facility] Lipaseon 06-07-2024 Lipase [Catalytic activity/Vol] 35 U/L Normal 13-75 [facility] Comment on above: Result Comment: Nagi nelson note:LIPASE revised reference range effective 22.New Lipase methodology. Expected to produce lower valuesthan the previous assay method.NEW Reference Range: 13 - 75 U/L Performed By: #### L 501.2450, L500.3400 ####[facility] [address] [place], [address] Liver Profileon 06-07-2024 Albumin [Mass/Vol] 3.9 g/dL Normal 3.4-4.8 [facility] Comment on above: Performed By: #### L 501.2450, L500.3400 ####[facility] [address] [place], [address] ALK PHOS 89 U/L Normal 40-129 [facility] Comment on above: Performed By: #### L 501.2450, L500.3400 ####[facility] [address] [place], [address] ALT [Catalytic activity/Vol] 21 U/L Normal <=46 [facility] Comment on above: Performed By: #### L 501.2450, L500.3400 ####[facility] [address] [place], [address] AST [Catalytic activity/Vol] 26 U/L Normal <=37 [facility] Comment on above: Result Comment: Hemo lysis present, Results??could be affected.?? Performed By: #### L 501.2450, L500.3400 ####[facility] [address] [place], [address] Bilirubin [Mass/Vol] 0.49 mg/dL Normal 0.00-1.30 [facility] Comment on above: Performed By: #### L 501.2450, L500.3400 ####[facility] [address] [place], [address] Bilirubin.direct [Mass/Vol] 0.22 mg/dL Normal 0.00-0.30 [facility] Comment on above: Result Comment: Hemo lysis present, Results??could be affected.?? Performed By: #### L 501.2450, L500.3400 ####[facility] [address] [place], [address] Globulin (S) [Mass/Vol] 3.6 g/dL Normal 2.2-4.2 [facility] Comment on above: Performed By: #### L 501.2450, L500.3400 ####[facility] [address] [place], [address] T PROT 7.5 g/dL Normal 5.9-8.4 [facility] Comment on above: Performed By: #### L 501.2450, L500.3400 ####[facility] [address] [place], [address] Urinalysis, Completeon 06-07 CAST,HYALINE 0-5 SEEN Normal 0-5 [facility] Comment on above: Order Comment: COLLE CTOR TO SPECIFY Performed By: #### L 400.0001 ####[facility] [address] [place], [address] RBC 0-5 SEEN Normal 0-5 [facility] Comment on above: Order Comment: COLLE CTOR TO SPECIFY Performed By: #### L 400.0001 ####[facility] [address] [place], [address] WBC 0-5 SEEN Normal 0-5 [facility] Comment on above: Order Comment: COLLE CTOR TO SPECIFY Performed By: #### L 400.0001 ####[facility] [address] [place], [address] BACTERIA 0 SEEN Normal None Seen [facility] Comment on above: Order Comment: COLLE CTOR TO SPECIFY Performed By: #### L 400.0001 ####[facility] [address] [place], [address] EPI,SQUAMOUS 0 SEEN Normal 0-5 [facility] Comment on above: Order Comment: COLLE CTOR TO SPECIFY Performed By: #### L 400.0001 ####[facility] [address] [place], [address] Mucus Ql (Urine sed) 0 SEEN Normal [facility] Comment on above: Order Comment: COLLE CTOR TO SPECIFY Performed By: #### L 400.0001 ####[facility] [address] [place], [address] Basic Metabolic Profile (BMP )on 05-28-2024 BUN/CRE 21.0 RATIO High 10-20 [facility] Comment on above: Performed By: #### L 100.0100, L500.2500 ####[facility] [address] [place], [address] Calcium [Mass/Vol] 9.8 mg/dL Normal 7.6-11.0 [facility] Comment on above: Performed By: #### L 100.0100, L500.2500 ####[facility] [address] [place], [address] Chloride [Moles/Vol] 91 mmol/L Low 98-108 [facility] Comment on above: Performed By: #### L 100.0100, L500.2500 ####[facility] [address] [place], [address] CO2 [Moles/Vol] 26.3 mmol/L Normal 21.0-32.0 [facility] Comment on above: Performed By: #### L 100.0100, L500.2500 ####[facility] [address] [place], [address] Creatinine [Mass/Vol] 0.85 mg/dL Normal 0.70-1.20 [facility] Comment on above: Performed By: #### L 100.0100, L500.2500 ####[facility] [address] [place], [address] ECRCL 88.64 ml/min Normal 50-250 [facility] Comment on above: Performed By: #### L 100.0100, L500.2500 ####[facility] [address] [place], [address] GAP 11 Normal 5-15 [facility] Comment on above: Performed By: #### L 100.0100, L500.2500 ####[facility] [address] [place], [address] GFR/1.73 sq M.predicted among non-blacks MDRD (S/P/Bld) [Vol rate/Area] 90 mL/min/{1.73_m2} Normal >60 [facility] Comment on above: Result Comment: mL/m in/1.73m2 CKD-EPI Creatinine Equation (2020) Performed By: #### L 100.0100, L500.2500 ####[facility] [address] [place], [address] Glucose [Mass/Vol] 114 mg/dL High 70-99 [facility] Comment on above: Performed By: #### L 100.0100, L500.2500 ####[facility] [address] [place], [address] Potassium [Moles/Vol] 3.9 mmol/L Normal 3.3-5.1 [facility] Comment on above: Performed By: #### L 100.0100, L500.2500 ####[facility] [address] [place], [address] Sodium [Moles/Vol] 129 mmol/L Low 133-145 [facility] Comment on above: Performed By: #### L 100.0100, L500.2500 ####[facility] [address] [place], [address] Urea nitrogen [Mass/Vol] 18 mg/dL Normal 4-19 [facility] Comment on above: Performed By: #### L 100.0100, L500.2500 ####[facility] [address] [place], [address] CBC W/Diff, Automatedon 04-2 Absolute Lymph 1.70 X10 3/uL Normal 0.83-4.51 [facility] Comment on above: Performed By: #### L 100.0100, L500.2500 ####[facility] [address] [place], [address] Absolute Neut 9.5 X10 3/uL High 2.0-7.7 [facility] Comment on above: Performed By: #### L 100.0100, L500.2500 ####[facility] [address] [place], [address] Basophils/100 WBC (Bld) 0.4 % Normal 0-1 [facility] Comment on above: Performed By: #### L 100.0100, L500.2500 ####[facility] [address] [place], [address] Eosinophils/100 WBC (Bld) 0.3 % Normal 0-5 [facility] Comment on above: Performed By: #### L 100.0100, L500.2500 ####[facility] [address] [place], [address] Erythrocyte distribution width (RBC) [Ratio] 12.9 % Normal 11.6-14.6 [facility] Comment on above: Performed By: #### L 100.0100, L500.2500 ####[facility] [address] [place], [address] Hematocrit (Bld) [Volume fraction] 41.7 % Normal 40-54 [facility] Comment on above: Performed By: #### L 100.0100, L500.2500 ####[facility] [address] [place], [address] Hemoglobin (Bld) [Mass/Vol] 14.8 g/dL Normal 13.0-16.5 [facility] Comment on above: Performed By: #### L 100.0100, L500.2500 ####[facility] [address] [place], [address] IG% 0.500 Normal 0.0-0.9 [facility] Comment on above: Result Comment: IG% - Immature Granulocytes (promyelocytes, myelocytes andmetamyelocytes) > 1% indicates that a LEFT SHIFT is Present. Performed By: #### L 100.0100, L500.2500 ####[facility] [address] [place], [address] Lymphocytes/100 WBC (Bld) 13.7 % Low 19-41 [facility] Comment on above: Performed By: #### L 100.0100, L500.2500 ####[facility] [address] [place], [address] MCH (RBC) [Entitic mass] 32.3 pg High 27.0-32.0 [facility] Comment on above: Performed By: #### L 100.0100, L500.2500 ####[facility] [address] [place], [address] MCHC (RBC) [Mass/Vol] 35.5 g/dL Normal 32-36 [facility] Comment on above: Performed By: #### L 100.0100, L500.2500 ####[facility] [address] [place], [address] MCV (RBC) [Entitic vol] 91.0 fL Normal 80-94 [facility] Comment on above: Performed By: #### L 100.0100, L500.2500 ####[facility] [address] [place], [address] Monocytes/100 WBC (Bld) 8.9 % Normal 0-10 [facility] Comment on above: Performed By: #### L 100.0100, L500.2500 ####[facility] [address] [place], [address] Neutrophils/100 WBC (Bld) 76.2 % High 47-70 [facility] Comment on above: Performed By: #### L 100.0100, L500.2500 ####[facility] [address] [place], [address] Nucleated RBC (Bld) [#/Vol] 0 10*3/uL Normal 0-5 [facility] Comment on above: Performed By: #### L 100.0100, L500.2500 ####[facility] [address] [place], [address] Platelet mean volume (Bld) [Entitic vol] 9.5 fL Normal 6.2-12.0 [facility] Comment on above: Performed By: #### L 100.0100, L500.2500 ####[facility] [address] [place], [address] Platelets (Bld) [#/Vol] 316 10*3/uL Normal 150-450 [facility] Comment on above: Performed By: #### L 100.0100, L500.2500 ####[facility] [address] [place], [address] RBC (Bld) [#/Vol] 4.58 10*6/uL Low 4.6-6.2 [facility] Comment on above: Performed By: #### L 100.0100, L500.2500 ####[facility] [address] [place], [address] RDW SD 42.3 fl Normal 35.1-43.9 [facility] Comment on above: Performed By: #### L 100.0100, L500.2500 ####[facility] [address] [place], [address] WBC (Bld) [#/Vol] 12.4 10*3/uL High 4.4-11.0 [facility] Comment on above: Performed By: #### L 100.0100, L500.2500 ####[facility] [address] [place], [address] Emergency Department Summary on 05-28-2024 Emergency Department Summary Normal [facility] 12 Lead EKGon 05-26-2024 12 Lead EKG Normal [facility] CBC W/Diff, Automatedon 05-08 Absolute Lymph 1.66 X10 3/uL Normal 0.83-4.51 [facility] Comment on above: Performed By: #### L 500.4050, L501.2450, L100.0100 ####[facility] [address] [place], [address] Absolute Neut 9.5 X10 3/uL High 2.0-7.7 [facility] Comment on above: Performed By: #### L 500.4050, L501.2450, L100.0100 ####[facility] [address] [place], [address] Basophils/100 WBC (Bld) 0.5 % Normal 0-1 [facility] Comment on above: Performed By: #### L 500.4050, L501.2450, L100.0100 ####[facility] [facility] [address] [place], [address] Eosinophils/100 WBC (Bld) 0.5 % Normal 0-5 [facility] Comment on above: Performed By: #### L 500.4050, L501.2450, L100.0100 ####[facility] [address] [place], [address] Erythrocyte distribution width (RBC) [Ratio] 13.2 % Normal 11.6-14.6 [facility] Comment on above: Performed By: #### L 500.4050, L501.2450, L100.0100 ####[facility] [address] [place], [address] Hematocrit (Bld) [Volume fraction] 42.0 % Normal 40-54 [facility] Comment on above: Performed By: #### L 500.4050, L501.2450, L100.0100 ####[facility] [address] [place], [address] Hemoglobin (Bld) [Mass/Vol] 15.2 g/dL Normal 13.0-16.5 [facility] Comment on above: Performed By: #### L 500.4050, L501.2450, L100.0100 ####[facility] [address] [place], [address] IG% 0.300 Normal 0.0-0.9 [facility] Comment on above: Result Comment: IG% - Immature Granulocytes (promyelocytes, myelocytes andmetamyelocytes) > 1% indicates that a LEFT SHIFT is Present. Performed By: #### L 500.4050, L501.2450, L100.0100 ####[facility] [address] [place], [address] Lymphocytes/100 WBC (Bld) 13.4 % Low 19-41 [facility] Comment on above: Performed By: #### L 500.4050, L501.2450, L100.0100 ####[facility] [address] [place], [address] MCH (RBC) [Entitic mass] 33.4 pg High 27.0-32.0 [facility] Comment on above: Performed By: #### L 500.4050, L501.2450, L100.0100 ####[facility] [address] [place], [address] MCHC (RBC) [Mass/Vol] 36.2 g/dL High 32-36 [facility] Comment on above: Performed By: #### L 500.4050, L501.2450, L100.0100 ####[place] [facility] [address] [place], [address] MCV (RBC) [Entitic vol] 92.3 fL Normal 80-94 [facility] Comment on above: Performed By: #### L 500.4050, L501.2450, L100.0100 ####[facility] [address] [place], [address] Monocytes/100 WBC (Bld) 8.2 % Normal 0-10 [facility] Comment on above: Performed By: #### L 500.4050, L501.2450, L100.0100 ####[facility] [address] [place], [address] Neutrophils/100 WBC (Bld) 77.1 % High 47-70 [facility] Comment on above: Performed By: #### L 500.4050, L501.2450, L100.0100 ####[facility] [address] [place], [address] Nucleated RBC (Bld) [#/Vol] 0 10*3/uL Normal 0-5 [facility] Comment on above: Performed By: #### L 500.4050, L501.2450, L100.0100 ####[facility] [address] [place], [address] Platelet mean volume (Bld) [Entitic vol] 9.6 fL Normal 6.2-12.0 [facility] Comment on above: Performed By: #### L 500.4050, L501.2450, L100.0100 ####[facility] [address] [place], [address] Platelets (Bld) [#/Vol] 329 10*3/uL Normal 150-450 [facility] Comment on above: Performed By: #### L 500.4050, L501.2450, L100.0100 ####[facility] [address] [place], [address] RBC (Bld) [#/Vol] 4.55 10*6/uL Low 4.6-6.2 [facility] Comment on above: Performed By: #### L 500.4050, L501.2450, L100.0100 ####[facility] [address] [place], [address] RDW SD 44.5 fl High 35.1-43.9 [facility] Comment on above: Performed By: #### L 500.4050, L501.2450, L100.0100 ####[facility] [address] [place], [address] WBC (Bld) [#/Vol] 12.4 10*3/uL High 4.4-11.0 [facility] Comment on above: Performed By: #### L 500.4050, L501.2450, L100.0100 ####[facility] [address] [place], [address] Comprehensive Metabolic Prof [facility] 05-26-2024 Albumin [Mass/Vol] 3.8 g/dL Normal 3.4-4.8 [facility] Comment on above: Performed By: #### L 500.4050, L501.2450, L100.0100 ####[facility] [address] [place], [address] Albumin/Globulin [Mass ratio] 1.0 {ratio} Normal 0.9-2.4 [facility] Comment on above: Performed By: #### L 500.4050, L501.2450, L100.0100 ####[facility] [address] [place], [address] ALK PHOS 94 U/L Normal 40-129 [facility] Comment on above: Performed By: #### L 500.4050, L501.2450, L100.0100 ####[facility] [address] [place], [address] ALT [Catalytic activity/Vol] 22 U/L Normal <=46 [facility] Comment on above: Performed By: #### L 500.4050, L501.2450, L100.0100 ####[facility] [address] [place], [address] AST [Catalytic activity/Vol] 27 U/L Normal <=37 [facility] Comment on above: Result Comment: Hemo lysis present, Results??could be affected.?? Performed By: #### L 500.4050, L501.2450, L100.0100 ####[facility] [address] [place], [address] Bilirubin [Mass/Vol] 0.51 mg/dL Normal 0.00-1.30 [facility] Comment on above: Performed By: #### L 500.4050, L501.2450, L100.0100 ####[facility] [address] [place], [address] BUN/CRE 25.7 RATIO High 10-20 [facility] Comment on above: Performed By: #### L 500.4050, L501.2450, L100.0100 ####[facility] [address] [place], [address] Calcium [Mass/Vol] 9.7 mg/dL Normal 7.6-11.0 [facility] Comment on above: Performed By: #### L 500.4050, L501.2450, L100.0100 ####[facility] [address] [place], [address] Chloride [Moles/Vol] 98 mmol/L Normal 98-108 [facility] Comment on above: Performed By: #### L 500.4050, L501.2450, L100.0100 ####[facility] [address] [place], [address] CO2 [Moles/Vol] 23.4 mmol/L Normal 21.0-32.0 [facility] Comment on above: Performed By: #### L 500.4050, L501.2450, L100.0100 ####[facility] [address] [place], [address] Creatinine [Mass/Vol] 0.86 mg/dL Normal 0.70-1.20 [facility] Comment on above: Performed By: #### L 500.4050, L501.2450, L100.0100 ####[facility] [address] [place], [address] ECRCL 87.90 ml/min Normal 50-250 [facility] Comment on above: Performed By: #### L 500.4050, L501.2450, L100.0100 ####[facility] [address] [place], [address] GAP 13 Normal 5-15 [facility] Comment on above: Performed By: #### L 500.4050, L501.2450, L100.0100 ####[facility] [address] [place], [address] GFR/1.73 sq M.predicted among non-blacks MDRD (S/P/Bld) [Vol rate/Area] 90 mL/min/{1.73_m2} Normal >60 [facility] Comment on above: Result Comment: mL/m in/1.73m2 CKD-EPI Creatinine Equation (2020) Performed By: #### L 500.4050, L501.2450, L100.0100 ####[facility] [address] [place], [address] Globulin (S) [Mass/Vol] 3.7 g/dL Normal 2.2-4.2 [facility] Comment on above: Performed By: #### L 500.4050, L501.2450, L100.0100 ####[facility] [address] [place], [address] Glucose [Mass/Vol] 111 mg/dL High 70-99 [facility] Comment on above: Performed By: #### L 500.4050, L501.2450, L100.0100 ####[facility] [address] [place], [address] Potassium [Moles/Vol] 4.5 mmol/L Normal 3.3-5.1 [facility] Comment on above: Result Comment: Hemo lysis present, Results??could be affected.?? Performed By: #### L 500.4050, L501.2450, L100.0100 ####[facility] [address] [place], [address] Sodium [Moles/Vol] 135 mmol/L Normal 133-145 [facility] Comment on above: Performed By: #### L 500.4050, L501.2450, L100.0100 ####[facility] [address] [place], [address] T PROT 7.5 g/dL Normal 5.9-8.4 [facility] Comment on above: Performed By: #### L 500.4050, L501.2450, L100.0100 ####[facility] [address] [place], [address] Urea nitrogen [Mass/Vol] 22 mg/dL High 4-19 [facility] Comment on above: Performed By: #### L 500.4050, L501.2450, L100.0100 ####[facility] [address] [place], [address] Emergency Department Summary on 05-26-2024 Emergency Department Summary Normal [facility] Lipaseon 05-26-2024 Lipase [Catalytic activity/Vol] 132 U/L High 13-75 [facility] Comment on above: Result Comment: Nagi nelson note:LIPASE revised reference range effective 22.New Lipase methodology. Expected to produce lower valuesthan the previous assay method.NEW Reference Range: 13 - 75 U/L Performed By: #### L 500.4050, L501.2450, L100.0100 ####[facility] [address] [place], [address] Urinalysis, Completeon 05-26 BACTERIA 0 SEEN Normal None Seen [facility] Comment on above: Order Comment: CLEAN CATCH Performed By: #### L 400.0001 ####[facility] [address] [place], [address] EPI,SQUAMOUS 0 SEEN Normal 0-5 [facility] Comment on above: Order Comment: CLEAN CATCH Performed By: #### L 400.0001 ####[facility] [address] [place], [address] Mucus Ql (Urine sed) 0 SEEN Normal [facility] Comment on above: Order Comment: CLEAN CATCH Performed By: #### L 400.0001 ####[facility] [address] [place], [address] RBC 0 SEEN Normal 0-5 [facility] Comment on above: Order Comment: CLEAN CATCH Performed By: #### L 400.0001 ####[facility] [address] [place], [address] WBC 0 SEEN Normal 0-5 [facility] Comment on above: Order Comment: CLEAN CATCH Performed By: #### L 400.0001 ####[facility] [address] [place], [address] Urine Drug Screen (VISTA)on 05-26-2024 AMPHETAMINES Negative Normal <1000 ng/mL [facility] Comment on above: Performed By: #### L 505.5000 ####[facility] [address] [facility] [address] BARBITIURATES Negative Normal < 200 ng/mL [facility] Comment on above: Performed By: #### L 505.5000 ####[facility] [address] [facility] [address] BENZODIAZIPINE Positive Normal < 200 ng/mL [facility] Comment on above: Result Comment: If c onfirmation testing is needed, a separate order will berequired to send out testing to the reference laboratory. Performed By: #### L 505.5000 ####[facility] [address] [facility] [address] BUP Ur Drug Scr Negative Normal < 200 ng/mL [facility] Comment on above: Performed By: #### L 505.5000 ####[facility] [address] [place] [id number] COCAINE Negative Normal < 300 ng/mL [facility] Comment on above: Performed By: #### L 505.5000 ####[facility] [address] [place] [id number] Fentanyl Negative Normal [facility] Comment on above: Performed By: #### L 505.5000 ####[facility] [address] [facility] [address] METHADONE Negative Normal < 300 ng/mL [facility] Comment on above: Performed By: #### L 505.5000 ####[facility] [address] [facility] [address] OPIATES Negative Normal < 300 ng/mL [facility] Comment on above: Performed By: #### L 505.5000 ####[facility] [address] [place] [id number] OXYCODONE Negative Normal < 100 ng/mL [facility] Comment on above: Performed By: #### L 505.5000 ####[facility] [address] [place], [address] PCP Negative Normal < 25 ng/mL [facility] Comment on above: Performed By: #### L 505.5000 ####[facility] [address] [place], [address] THC Negative Normal < 50 ng/mL [facility] Comment on above: Performed By: #### L 505.5000 ####[facility] [address] [place], [address] CBC W/Diff, Automatedon 05-08 Absolute Lymph 1.99 X10 3/uL Normal 0.83-4.51 [facility] Comment on above: Performed By: #### L 500.4050, L100.0100, L503.7505 ####[facility] [address] [place], [address] Absolute Neut 6.1 X10 3/uL Normal 2.0-7.7 [facility] Comment on above: Performed By: #### L 500.4050, L100.0100, L503.7505 ####[facility] [address] [place], [address] Basophils/100 WBC (Bld) 0.5 % Normal 0-1 [facility] Comment on above: Performed By: #### L 500.4050, L100.0100, L503.7505 ####[facility] [address] [place], [address] Eosinophils/100 WBC (Bld) 1.1 % Normal 0-5 [facility] Comment on above: Performed By: #### L 500.4050, L100.0100, L503.7505 ####[facility] [address] [place], [address] Erythrocyte distribution width (RBC) [Ratio] 12.6 % Normal 11.6-14.6 [facility] Comment on above: Performed By: #### L 500.4050, L100.0100, L503.7505 ####[facility] [address] [place], [address] Hematocrit (Bld) [Volume fraction] 40.2 % Normal 40-54 [facility] Comment on above: Performed By: #### L 500.4050, L100.0100, L503.7505 ####[facility] [address] [place], [address] Hemoglobin (Bld) [Mass/Vol] 13.9 g/dL Normal 13.0-16.5 [facility] Comment on above: Performed By: #### L 500.4050, L100.0100, L503.7505 ####[facility] [address] [place], [address] IG% 0.500 Normal 0.0-0.9 [facility] Comment on above: Result Comment: IG% - Immature Granulocytes (promyelocytes, myelocytes andmetamyelocytes) > 1% indicates that a LEFT SHIFT is Present. Performed By: #### L 500.4050, L100.0100, L503.7505 ####[facility] [address] [place], [address] Lymphocytes/100 WBC (Bld) 21.4 % Normal 19-41 [facility] Comment on above: Performed By: #### L 500.4050, L100.0100, L503.7505 ####[facility] [address] [place], [address] MCH (RBC) [Entitic mass] 32.3 pg High 27.0-32.0 [facility] Comment on above: Performed By: #### L 500.4050, L100.0100, L503.7505 ####[facility] [address] [place], [address] MCHC (RBC) [Mass/Vol] 34.6 g/dL Normal 32-36 [facility] Comment on above: Performed By: #### L 500.4050, L100.0100, L503.7505 ####[facility] [address] [place], [address] MCV (RBC) [Entitic vol] 93.5 fL Normal 80-94 [facility] Comment on above: Performed By: #### L 500.4050, L100.0100, L503.7505 ####[facility] [address] [place], [address] Monocytes/100 WBC (Bld) 11.3 % High 0-10 [facility] Comment on above: Performed By: #### L 500.4050, L100.0100, L503.7505 ####[facility] [address] [place], [address] Neutrophils/100 WBC (Bld) 65.2 % Normal 47-70 [facility] Comment on above: Performed By: #### L 500.4050, L100.0100, L503.7505 ####[facility] [address] [place], [address] Nucleated RBC (Bld) [#/Vol] 0 10*3/uL Normal 0-5 [facility] Comment on above: Performed By: #### L 500.4050, L100.0100, L503.7505 ####[facility] [address] [place], [address] Platelet mean volume (Bld) [Entitic vol] 9.8 fL Normal 6.2-12.0 [facility] Comment on above: Performed By: #### L 500.4050, L100.0100, L503.7505 ####[facility] [address] [place], [address] Platelets (Bld) [#/Vol] 309 10*3/uL Normal 150-450 [facility] Comment on above: Performed By: #### L 500.4050, L100.0100, L503.7505 ####[facility] [address] [place], [address] RBC (Bld) [#/Vol] 4.30 10*6/uL Low 4.6-6.2 [facility] Comment on above: Performed By: #### L 500.4050, L100.0100, L503.7505 ####[facility] [address] [place], [address] RDW SD 42.7 fl Normal 35.1-43.9 [facility] Comment on above: Performed By: #### L 500.4050, L100.0100, L503.7505 ####[facility] [address] [place], [address] WBC (Bld) [#/Vol] 9.3 10*3/uL Normal 4.4-11.0 [facility] Comment on above: Performed By: #### L 500.4050, L100.0100, L503.7505 ####[facility] [address] [place], [address] Comprehensive Metabolic Prof ilon 05-21-2024 Albumin [Mass/Vol] 3.6 g/dL Normal 3.4-4.8 [facility] Comment on above: Performed By: #### L 500.4050, L100.0100, L503.7505 ####[facility] [address] [place], [address] Albumin/Globulin [Mass ratio] 1.0 {ratio} Normal 0.9-2.4 [facility] Comment on above: Performed By: #### L 500.4050, L100.0100, L503.7505 ####[facility] [address] [place], [address] ALK PHOS 92 U/L Normal 40-129 [facility] Comment on above: Performed By: #### L 500.4050, L100.0100, L503.7505 ####[facility] [address] [place], [address] ALT [Catalytic activity/Vol] 17 U/L Normal <=46 [facility] Comment on above: Performed By: #### L 500.4050, L100.0100, L503.7505 ####[facility] [address] [place], [address] AST [Catalytic activity/Vol] 27 U/L Normal <=37 [facility] Comment on above: Performed By: #### L 500.4050, L100.0100, L503.7505 ####[facility] [address] [place], [address] Bilirubin [Mass/Vol] 0.47 mg/dL Normal 0.00-1.30 [facility] Comment on above: Performed By: #### L 500.4050, L100.0100, L503.7505 ####[facility] [address] [place], [address] BUN/CRE 14.6 RATIO Normal 10-20 [facility] Comment on above: Performed By: #### L 500.4050, L100.0100, L503.7505 ####[facility] [address] [place], [address] Calcium [Mass/Vol] 9.5 mg/dL Normal 7.6-11.0 [facility] Comment on above: Performed By: #### L 500.4050, L100.0100, L503.7505 ####[facility] [address] [place], [address] Chloride [Moles/Vol] 92 mmol/L Low 98-108 [facility] Comment on above: Performed By: #### L 500.4050, L100.0100, L503.7505 ####[facility] [address] [place], [address] CO2 [Moles/Vol] 26.3 mmol/L Normal 21.0-32.0 [facility] Comment on above: Performed By: #### L 500.4050, L100.0100, L503.7505 ####[facility] [address] [place], [address] Creatinine [Mass/Vol] 0.70 mg/dL Normal 0.70-1.20 [facility] Comment on above: Performed By: #### L 500.4050, L100.0100, L503.7505 ####[facility] [address] [place], [address] GAP 11 Normal 5-15 [facility] Comment on above: Performed By: #### L 500.4050, L100.0100, L503.7505 ####[facility] [address] [place], [address] GFR/1.73 sq M.predicted among non-blacks MDRD (S/P/Bld) [Vol rate/Area] 95 mL/min/{1.73_m2} Normal >60 [facility] Comment on above: Result Comment: mL/m in/1.73m2 CKD-EPI Creatinine Equation (2020) Performed By: #### L 500.4050, L100.0100, L503.7505 ####[facility] [address] [place], [address] Globulin (S) [Mass/Vol] 3.6 g/dL Normal 2.2-4.2 [facility] Comment on above: Performed By: #### L 500.4050, L100.0100, L503.7505 ####[facility] [address] [place], [address] Glucose [Mass/Vol] 99 mg/dL Normal 70-99 [facility] Comment on above: Performed By: #### L 500.4050, L100.0100, L503.7505 ####[facility] [address] [place], [address] Potassium [Moles/Vol] 4.4 mmol/L Normal 3.3-5.1 [facility] Comment on above: Performed By: #### L 500.4050, L100.0100, L503.7505 ####[facility] [address] [place], [address] Sodium [Moles/Vol] 129 mmol/L Low 133-145 [facility] Comment on above: Performed By: #### L 500.4050, L100.0100, L503.7505 ####[facility] [address] [place], [address] T PROT 7.2 g/dL Normal 5.9-8.4 [facility] Comment on above: Performed By: #### L 500.4050, L100.0100, L503.7505 ####[facility] [address] [place], [address] Urea nitrogen [Mass/Vol] 10 mg/dL Normal 4-19 [facility] Comment on above: Performed By: #### L 500.4050, L100.0100, L503.7505 ####[facility] [address] [place], [address] L503.7505on 05-21-2024 Natriuretic peptide B (Bld) [Mass/Vol] 66 pg/mL Normal <=1800 [facility] Comment on above: Result Comment: Hear t Failure Unlikely: < 300 pg/mLHeart Failure Likely< 50 Years: > 450 pg/mL50-75 Years: > 900 pg/mL>75 Years: > 1800 pg/mL Performed By: #### L 500.4050, L100.0100, L503.7505 ####[facility] [address] [place], [address] Basic Metabolic Profile (BMP )on 04-30-2024 BUN/CRE 23.2 RATIO High 10-20 [facility] Comment on above: Order Comment: 103.2 Performed By: #### L 503.0106, L500.2500, L100.0100, L501.5200, L506.1001, L501.9520 ####[facility] [address] [place], [address] Calcium [Mass/Vol] 9.4 mg/dL Normal 7.6-11.0 [facility] Comment on above: Order Comment: 103.2 Performed By: #### L 503.0106, L500.2500, L100.0100, L501.5200, L506.1001, L501.9520 ####[facility] [address] [place], [address] Chloride [Moles/Vol] 98 mmol/L Normal 98-108 [facility] Comment on above: Order Comment: 103.2 Performed By: #### L 503.0106, L500.2500, L100.0100, L501.5200, L506.1001, L501.9520 ####[facility] [address] [place], [address] CO2 [Moles/Vol] 24.1 mmol/L Normal 21.0-32.0 [facility] Comment on above: Order Comment: 103.2 Performed By: #### L 503.0106, L500.2500, L100.0100, L501.5200, L506.1001, L501.9520 ####[facility] [address] [place], [address] Creatinine [Mass/Vol] 0.87 mg/dL Normal 0.70-1.20 [facility] Comment on above: Order Comment: 103.2 Performed By: #### L 503.0106, L500.2500, L100.0100, L501.5200, L506.1001, L501.9520 ####[facility] [address] [place], [address] GAP 12 Normal 5-15 [facility] Comment on above: Order Comment: 103.2 Performed By: #### L 503.0106, L500.2500, L100.0100, L501.5200, L506.1001, L501.9520 ####[facility] [address] [place], [address] GFR/1.73 sq M.predicted among non-blacks MDRD (S/P/Bld) [Vol rate/Area] 90 mL/min/{1.73_m2} Normal >60 [facility] Comment on above: Order Comment: 103.2 Result Comment: mL/m in/1.73m2 CKD-EPI Creatinine Equation (2020) Performed By: #### L 503.0106, L500.2500, L100.0100, L501.5200, L506.1001, L501.9520 ####[facility] [address] [place], [address] Glucose [Mass/Vol] 121 mg/dL High 70-99 [facility] Comment on above: Order Comment: 103.2 Performed By: #### L 503.0106, L500.2500, L100.0100, L501.5200, L506.1001, L501.9520 ####[facility] [address] [place], [address] Potassium [Moles/Vol] 4.2 mmol/L Normal 3.3-5.1 [facility] Comment on above: Order Comment: 103.2 Performed By: #### L 503.0106, L500.2500, L100.0100, L501.5200, L506.1001, L501.9520 ####[facility] [address] [place], [address] Sodium [Moles/Vol] 134 mmol/L Normal 133-145 [facility] Comment on above: Order Comment: 103.2 Performed By: #### L 503.0106, L500.2500, L100.0100, L501.5200, L506.1001, L501.9520 ####[facility] [address] [place], [address] Urea nitrogen [Mass/Vol] 20 mg/dL High 4-19 [facility] Comment on above: Order Comment: 103.2 Performed By: #### L 503.0106, L500.2500, L100.0100, L501.5200, L506.1001, L501.9520 ####[facility] [address] [place], [address] CBC W/Diff, Automatedon 04-08 Absolute Lymph 1.32 X10 3/uL Normal 0.83-4.51 [facility] Comment on above: Order Comment: 103.2 Performed By: #### L 503.0106, L500.2500, L100.0100, L501.5200, L506.1001, L501.9520 ####[facility] [address] [place], [address] Absolute Neut 3.2 X10 3/uL Normal 2.0-7.7 [facility] Comment on above: Order Comment: 103.2 Performed By: #### L 503.0106, L500.2500, L100.0100, L501.5200, L506.1001, L501.9520 ####[facility] [address] [place], [address] Basophils/100 WBC (Bld) 1.0 % Normal 0-1 [facility] Comment on above: Order Comment: 103.2 Performed By: #### L 503.0106, L500.2500, L100.0100, L501.5200, L506.1001, L501.9520 ####[facility] [address] [place], [address] Eosinophils/100 WBC (Bld) 4.4 % Normal 0-5 [facility] Comment on above: Order Comment: 103.2 Performed By: #### L 503.0106, L500.2500, L100.0100, L501.5200, L506.1001, L501.9520 ####[facility] [address] [place], [address] Erythrocyte distribution width (RBC) [Ratio] 13.2 % Normal 11.6-14.6 [facility] Comment on above: Order Comment: 103.2 Performed By: #### L 503.0106, L500.2500, L100.0100, L501.5200, L506.1001, L501.9520 ####[facility] [address] [place], [address] Hematocrit (Bld) [Volume fraction] 42.5 % Normal 40-54 [facility] Comment on above: Order Comment: 103.2 Performed By: #### L 503.0106, L500.2500, L100.0100, L501.5200, L506.1001, L501.9520 ####[facility] [address] [place], [address] Hemoglobin (Bld) [Mass/Vol] 14.5 g/dL Normal 13.0-16.5 [facility] Comment on above: Order Comment: 103.2 Performed By: #### L 503.0106, L500.2500, L100.0100, L501.5200, L506.1001, L501.9520 ####[facility] [address] [place], [address] IG% 0.700 Normal 0.0-0.9 [facility] Comment on above: Order Comment: 103.2 Result Comment: IG% - Immature Granulocytes (promyelocytes, myelocytes andmetamyelocytes) > 1% indicates that a LEFT SHIFT is Present. Performed By: #### L 503.0106, L500.2500, L100.0100, L501.5200, L506.1001, L501.9520 ####[facility] [address] [place], [address] Lymphocytes/100 WBC (Bld) 22.4 % Normal 19-41 [facility] Comment on above: Order Comment: 103.2 Performed By: #### L 503.0106, L500.2500, L100.0100, L501.5200, L506.1001, L501.9520 ####[facility] [address] [place], [address] MCH (RBC) [Entitic mass] 33.3 pg High 27.0-32.0 [facility] Comment on above: Order Comment: 103.2 Performed By: #### L 503.0106, L500.2500, L100.0100, L501.5200, L506.1001, L501.9520 ####[facility] [address] [place], [address] MCHC (RBC) [Mass/Vol] 34.1 g/dL Normal 32-36 [facility] Comment on above: Order Comment: 103.2 Performed By: #### L 503.0106, L500.2500, L100.0100, L501.5200, L506.1001, L501.9520 ####[facility] [address] [place], [address] MCV (RBC) [Entitic vol] 97.7 fL High 80-94 [facility] Comment on above: Order Comment: 103.2 Performed By: #### L 503.0106, L500.2500, L100.0100, L501.5200, L506.1001, L501.9520 ####[facility] [address] [place], [address] Monocytes/100 WBC (Bld) 17.5 % High 0-10 [facility] Comment on above: Order Comment: 103.2 Performed By: #### L 503.0106, L500.2500, L100.0100, L501.5200, L506.1001, L501.9520 ####[facility] [address] [place], [address] Neutrophils/100 WBC (Bld) 54.0 % Normal 47-70 [facility] Comment on above: Order Comment: 103.2 Performed By: #### L 503.0106, L500.2500, L100.0100, L501.5200, L506.1001, L501.9520 ####[facility] [address] [place], [address] Nucleated RBC (Bld) [#/Vol] 0 10*3/uL Normal 0-5 [facility] Comment on above: Order Comment: 103.2 Performed By: #### L 503.0106, L500.2500, L100.0100, L501.5200, L506.1001, L501.9520 ####[facility] [address] [place], [address] Platelet mean volume (Bld) [Entitic vol] 10.2 fL Normal 6.2-12.0 [facility] Comment on above: Order Comment: 103.2 Performed By: #### L 503.0106, L500.2500, L100.0100, L501.5200, L506.1001, L501.9520 ####[facility] [address] [place], [address] Platelets (Bld) [#/Vol] 172 10*3/uL Normal 150-450 [facility] Comment on above: Order Comment: 103.2 Performed By: #### L 503.0106, L500.2500, L100.0100, L501.5200, L506.1001, L501.9520 ####[facility] [address] [place], [address] RBC (Bld) [#/Vol] 4.35 10*6/uL Low 4.6-6.2 [facility] Comment on above: Order Comment: 103.2 Performed By: #### L 503.0106, L500.2500, L100.0100, L501.5200, L506.1001, L501.9520 ####[facility] [address] [place], [address] RDW SD 47.0 fl High 35.1-43.9 [facility] Comment on above: Order Comment: 103.2 Performed By: #### L 503.0106, L500.2500, L100.0100, L501.5200, L506.1001, L501.9520 ####[facility] [address] [place], [address] WBC (Bld) [#/Vol] 5.9 10*3/uL Normal 4.4-11.0 [facility] Comment on above: Order Comment: 103.2 Performed By: #### L 503.0106, L500.2500, L100.0100, L501.5200, L506.1001, L501.9520 ####[facility] [address] [place], [address] L503.0106on 04-30-2024 Cobalamin (Vitamin B12) [Mass/Vol] 522 pg/mL Normal 180-914 [facility] Comment on above: Order Comment: 103.2 Performed By: #### L 503.0106, L500.2500, L100.0100, L501.5200, L506.1001, L501.9520 ####[facility] [address] [place], [address] L506.1001on 04-30-2024 Vitamin D 25-OH 52.8 ng/mL Normal 30-100 [facility] Comment on above: Order Comment: 103.2 Result Comment: Sandra min D StatusDeficiency: <20 ng/mL (50nmol/L)Insufficiency: 20-30 ng/mL (50-75 nmol/L)Sufficiency: 30-100 ng/mL (75-250 nmol/L)Toxicity: >100 ng/mL (>250 nmol/L) Performed By: #### L 503.0106, L500.2500, L100.0100, L501.5200, L506.1001, L501.9520 ####[facility] [address] [place], [address] Magnesiumon 04-30-2024 Magnesium [Mass/Vol] 2.1 mg/dL Normal 1.5-2.2 [facility] Comment on above: Order Comment: 103.2 Performed By: #### L 503.0106, L500.2500, L100.0100, L501.5200, L506.1001, L501.9520 ####[facility] [address] [place], [address] Thyroid Stim Hormone (TSH)on 04-30-2024 TSH 3.020 uIU/mL Normal 0.300-4.200 [facility] Comment on above: Order Comment: 103.2 Performed By: #### L 503.0106, L500.2500, L100.0100, L501.5200, L506.1001, L501.9520 ####[facility] [address] [place], [address] Basic Metabolic Profile (BMP )on 04-23-2024 BUN/CRE 21.4 RATIO High 10-20 [facility] Comment on above: Performed By: #### L 100.0100, L500.2500 ####[facility] [address] [place], [address] Calcium [Mass/Vol] 8.9 mg/dL Normal 7.6-11.0 [facility] Comment on above: Performed By: #### L 100.0100, L500.2500 ####[facility] [address] [place], [address] Chloride [Moles/Vol] 97 mmol/L Low 98-108 [facility] Comment on above: Performed By: #### L 100.0100, L500.2500 ####[facility] [address] [place], [address] CO2 [Moles/Vol] 25.6 mmol/L Normal 21.0-32.0 [facility] Comment on above: Performed By: #### L 100.0100, L500.2500 ####[facility] [address] [place], [address] Creatinine [Mass/Vol] 0.78 mg/dL Normal 0.70-1.20 [facility] Comment on above: Performed By: #### L 100.0100, L500.2500 ####[facility] [address] [place], [address] ECRCL 86.71 ml/min Normal 50-250 [facility] Comment on above: Performed By: #### L 100.0100, L500.2500 ####[facility] [address] [place], [address] GAP 11 Normal 5-15 [facility] Comment on above: Performed By: #### L 100.0100, L500.2500 ####[facility] [address] [place], [address] GFR/1.73 sq M.predicted among non-blacks MDRD (S/P/Bld) [Vol rate/Area] 93 mL/min/{1.73_m2} Normal >60 [facility] Comment on above: Result Comment: mL/m in/1.73m2 CKD-EPI Creatinine Equation (2020) Performed By: #### L 100.0100, L500.2500 ####[facility] [address] [place], [address] Glucose [Mass/Vol] 95 mg/dL Normal 70-99 [facility] Comment on above: Performed By: #### L 100.0100, L500.2500 ####[facility] [address] [place], [address] Potassium [Moles/Vol] 4.7 mmol/L Normal 3.3-5.1 [facility] Comment on above: Performed By: #### L 100.0100, L500.2500 ####[facility] [address] [place], [address] Sodium [Moles/Vol] 133 mmol/L Normal 133-145 [facility] Comment on above: Performed By: #### L 100.0100, L500.2500 ####[facility] [address] [place], [address] Urea nitrogen [Mass/Vol] 17 mg/dL Normal 4-19 [facility] Comment on above: Performed By: #### L 100.0100, L500.2500 ####[facility] [address] [place], [address] CBC W/Diff, Automatedon 04-07 Absolute Lymph 0.88 X10 3/uL Normal 0.83-4.51 [facility] Comment on above: Performed By: #### L 100.0100, L500.2500 ####[facility] [address] [place], [address] Absolute Neut 6.6 X10 3/uL Normal 2.0-7.7 [facility] Comment on above: Performed By: #### L 100.0100, L500.2500 ####[facility] [address] [place], [address] Basophils/100 WBC (Bld) 0.4 % Normal 0-1 [facility] Comment on above: Performed By: #### L 100.0100, L500.2500 ####[facility] [address] [place], [address] Eosinophils/100 WBC (Bld) 0.1 % Normal 0-5 [facility] Comment on above: Performed By: #### L 100.0100, L500.2500 ####[facility] [address] [place], [address] Erythrocyte distribution width (RBC) [Ratio] 13.7 % Normal 11.6-14.6 [facility] Comment on above: Performed By: #### L 100.0100, L500.2500 ####[facility] [address] [place], [address] Hematocrit (Bld) [Volume fraction] 40.4 % Normal 40-54 [facility] Comment on above: Performed By: #### L 100.0100, L500.2500 ####[facility] [address] [place], [address] Hemoglobin (Bld) [Mass/Vol] 13.7 g/dL Normal 13.0-16.5 [facility] Comment on above: Performed By: #### L 100.0100, L500.2500 ####[facility] [address] [place], [address] IG% 0.600 Normal 0.0-0.9 [facility] Comment on above: Result Comment: IG% - Immature Granulocytes (promyelocytes, myelocytes andmetamyelocytes) > 1% indicates that a LEFT SHIFT is Present. Performed By: #### L 100.0100, L500.2500 ####[facility] [address] [place], [address] Lymphocytes/100 WBC (Bld) 10.4 % Low 19-41 [facility] Comment on above: Performed By: #### L 100.0100, L500.2500 ####[facility] [address] [place], [address] MCH (RBC) [Entitic mass] 32.5 pg High 27.0-32.0 [facility] Comment on above: Performed By: #### L 100.0100, L500.2500 ####[facility] [address] [place], [address] MCHC (RBC) [Mass/Vol] 33.9 g/dL Normal 32-36 [facility] Comment on above: Performed By: #### L 100.0100, L500.2500 ####[facility] [address] [place], [address] MCV (RBC) [Entitic vol] 95.7 fL High 80-94 [facility] Comment on above: Performed By: #### L 100.0100, L500.2500 ####[facility] [address] [place], [address] Monocytes/100 WBC (Bld) 11.0 % High 0-10 [facility] Comment on above: Performed By: #### L 100.0100, L500.2500 ####[facility] [address] [place], [address] Neutrophils/100 WBC (Bld) 77.5 % High 47-70 [facility] Comment on above: Performed By: #### L 100.0100, L500.2500 ####[facility] [address] [place], [address] Nucleated RBC (Bld) [#/Vol] 0 10*3/uL Normal 0-5 [facility] Comment on above: Performed By: #### L 100.0100, L500.2500 ####[facility] [address] [place], [address] Platelet mean volume (Bld) [Entitic vol] 9.9 fL Normal 6.2-12.0 [facility] Comment on above: Performed By: #### L 100.0100, L500.2500 ####[facility] [address] [place], [address] Platelets (Bld) [#/Vol] 148 10*3/uL Low 150-450 [facility] Comment on above: Performed By: #### L 100.0100, L500.2500 ####[facility] [address] [place], [address] RBC (Bld) [#/Vol] 4.22 10*6/uL Low 4.6-6.2 [facility] Comment on above: Performed By: #### L 100.0100, L500.2500 ####[facility] [address] [place], [address] RDW SD 48.1 fl High 35.1-43.9 [facility] Comment on above: Performed By: #### L 100.0100, L500.2500 ####[facility] [address] [place], [address] WBC (Bld) [#/Vol] 8.5 10*3/uL Normal 4.4-11.0 [facility] Comment on above: Performed By: #### L 100.0100, L500.2500 ####[facility] [address] [place], [address] Pelvis (Routine)on 5 Pelvis (Routine) Normal [facility] 12 Lead EKGon 04-22-2024 12 Lead EKG Normal [facility] Alcohol, Blood (Medical)-Ser umon 04-22-2024 SERUM ETOH 91.6 mg/dL High <=10.0 [facility] Comment on above: Result Comment: This test is for medical purposes only. The legaldefinition of intoxication varies according to local law. Performed By: #### L 501.9100 ####[facility] [address] [place], [address] Basic Metabolic Profile (BMP )on 04-22-2024 BUN/CRE 16.9 RATIO Normal 10-20 [facility] Comment on above: Performed By: #### L 500.3400, L100.0100, L500.2500, L501.2450, L501.4021 ####[facility] [address] [place], [address] Calcium [Mass/Vol] 9.2 mg/dL Normal 7.6-11.0 [facility] Comment on above: Performed By: #### L 500.3400, L100.0100, L500.2500, L501.2450, L501.4021 ####[facility] [address] [place], [address] Chloride [Moles/Vol] 99 mmol/L Normal 98-108 [facility] Comment on above: Performed By: #### L 500.3400, L100.0100, L500.2500, L501.2450, L501.4021 ####[facility] [address] [place], [address] CO2 [Moles/Vol] 25.2 mmol/L Normal 21.0-32.0 [facility] Comment on above: Performed By: #### L 500.3400, L100.0100, L500.2500, L501.2450, L501.4021 ####[facility] [address] [place], [address] Creatinine [Mass/Vol] 0.93 mg/dL Normal 0.70-1.20 [facility] Comment on above: Performed By: #### L 500.3400, L100.0100, L500.2500, L501.2450, L501.4021 ####[facility] [address] [place], [address] ECRCL 86.05 ml/min Normal 50-250 [facility] Comment on above: Performed By: #### L 500.3400, L100.0100, L500.2500, L501.2450, L501.4021 ####[facility] [address] [place], [address] GAP 14 Normal 5-15 [facility] Comment on above: Performed By: #### L 500.3400, L100.0100, L500.2500, L501.2450, L501.4021 ####[facility] [address] [place], [address] GFR/1.73 sq M.predicted among non-blacks MDRD (S/P/Bld) [Vol rate/Area] 86 mL/min/{1.73_m2} Normal >60 [facility] Comment on above: Result Comment: mL/m in/1.73m2 CKD-EPI Creatinine Equation (2020) Performed By: #### L 500.3400, L100.0100, L500.2500, L501.2450, L501.4021 ####[facility] [address] [place], [address] Glucose [Mass/Vol] 79 mg/dL Normal 70-99 [facility] Comment on above: Performed By: #### L 500.3400, L100.0100, L500.2500, L501.2450, L501.4021 ####[facility] [address] [place], [address] Potassium [Moles/Vol] 4.3 mmol/L Normal 3.3-5.1 [facility] Comment on above: Performed By: #### L 500.3400, L100.0100, L500.2500, L501.2450, L501.4021 ####[facility] [address] [place], [address] Sodium [Moles/Vol] 138 mmol/L Normal 133-145 [facility] Comment on above: Performed By: #### L 500.3400, L100.0100, L500.2500, L501.2450, L501.4021 ####[facility] [address] [place], [address] Urea nitrogen [Mass/Vol] 16 mg/dL Normal 4-19 [facility] Comment on above: Performed By: #### L 500.3400, L100.0100, L500.2500, L501.2450, L501.4021 ####[facility] [address] [place], [address] Brain/Head without Contrasto n 04-22-2024 Brain/Head without Contrast Normal [facility] CBC W/Diff, Automatedon 04-07 Absolute Lymph 1.32 X10 3/uL Normal 0.83-4.51 [facility] Comment on above: Performed By: #### L 500.3400, L100.0100, L500.2500, L501.2450, L501.4021 ####[facility] [address] [place], [address] Absolute Neut 12.2 X10 3/uL High 2.0-7.7 [facility] Comment on above: Performed By: #### L 500.3400, L100.0100, L500.2500, L501.2450, L501.4021 ####[facility] [address] [place], [address] Basophils/100 WBC (Bld) 0.2 % Normal 0-1 [facility] Comment on above: Performed By: #### L 500.3400, L100.0100, L500.2500, L501.2450, L501.4021 ####[facility] [address] [place], [address] Eosinophils/100 WBC (Bld) 0.1 % Normal 0-5 [facility] Comment on above: Performed By: #### L 500.3400, L100.0100, L500.2500, L501.2450, L501.4021 ####[facility] [address] [place], [address] Erythrocyte distribution width (RBC) [Ratio] 13.6 % Normal 11.6-14.6 [facility] Comment on above: Performed By: #### L 500.3400, L100.0100, L500.2500, L501.2450, L501.4021 ####[facility] [address] [place], [address] Hematocrit (Bld) [Volume fraction] 42.9 % Normal 40-54 [facility] Comment on above: Performed By: #### L 500.3400, L100.0100, L500.2500, L501.2450, L501.4021 ####[facility] [address] [place], [address] Hemoglobin (Bld) [Mass/Vol] 14.5 g/dL Normal 13.0-16.5 [facility] Comment on above: Performed By: #### L 500.3400, L100.0100, L500.2500, L501.2450, L501.4021 ####[facility] [address] [place], [address] IG% 1.000 High 0.0-0.9 [facility] Comment on above: Result Comment: IG% - Immature Granulocytes (promyelocytes, myelocytes andmetamyelocytes) > 1% indicates that a LEFT SHIFT is Present. Performed By: #### L 500.3400, L100.0100, L500.2500, L501.2450, L501.4021 ####[facility] [address] [place], [address] Lymphocytes/100 WBC (Bld) 9.0 % Low 19-41 [facility] Comment on above: Performed By: #### L 500.3400, L100.0100, L500.2500, L501.2450, L501.4021 ####[facility] [address] [place], [address] MCH (RBC) [Entitic mass] 32.6 pg High 27.0-32.0 [facility] Comment on above: Performed By: #### L 500.3400, L100.0100, L500.2500, L501.2450, L501.4021 ####[facility] [address] [place], [address] MCHC (RBC) [Mass/Vol] 33.8 g/dL Normal 32-36 [facility] Comment on above: Performed By: #### L 500.3400, L100.0100, L500.2500, L501.2450, L501.4021 ####[facility] [address] [place], [address] MCV (RBC) [Entitic vol] 96.4 fL High 80-94 [facility] Comment on above: Performed By: #### L 500.3400, L100.0100, L500.2500, L501.2450, L501.4021 ####[facility] [address] [place], [address] Monocytes/100 WBC (Bld) 7.0 % Normal 0-10 [facility] Comment on above: Performed By: #### L 500.3400, L100.0100, L500.2500, L501.2450, L501.4021 ####[facility] [address] [place], [address] Neutrophils/100 WBC (Bld) 82.7 % High 47-70 [facility] Comment on above: Performed By: #### L 500.3400, L100.0100, L500.2500, L501.2450, L501.4021 ####[facility] [address] [place], [address] Nucleated RBC (Bld) [#/Vol] 0 10*3/uL Normal 0-5 [facility] Comment on above: Performed By: #### L 500.3400, L100.0100, L500.2500, L501.2450, L501.4021 ####[facility] [address] [place], [address] Platelet mean volume (Bld) [Entitic vol] 9.8 fL Normal 6.2-12.0 [facility] Comment on above: Performed By: #### L 500.3400, L100.0100, L500.2500, L501.2450, L501.4021 ####[facility] [address] [place], [address] Platelets (Bld) [#/Vol] 212 10*3/uL Normal 150-450 [facility] Comment on above: Performed By: #### L 500.3400, L100.0100, L500.2500, L501.2450, L501.4021 ####[facility] [address] [place], [address] RBC (Bld) [#/Vol] 4.45 10*6/uL Low 4.6-6.2 [facility] Comment on above: Performed By: #### L 500.3400, L100.0100, L500.2500, L501.2450, L501.4021 ####[facility] [address] [place], [address] RDW SD 48.8 fl High 35.1-43.9 [facility] Comment on above: Performed By: #### L 500.3400, L100.0100, L500.2500, L501.2450, L501.4021 ####[facility] [address] [place], [address] WBC (Bld) [#/Vol] 14.7 10*3/uL High 4.4-11.0 [facility] Comment on above: Performed By: #### L 500.3400, L100.0100, L500.2500, L501.2450, L501.4021 ####[facility] [address] [place], [address] Chest 1 View (Portable)on Chest 1 View (Portable) Normal [facility] Emergency Department Summary on 04-22-2024 Emergency Department Summary Normal [facility] Extremity Lower without Cont raon 04-22-2024 Extremity Lower without Contra Normal [facility] H AND P Exam - Hospitaliston 04-22-2024 H&P Exam - Hospitalist Normal [facility] HIP, UNI W/ Pelvis 2-3 Views on 04-22-2024 HIP, UNI W/ Pelvis 2-3 Views Normal [facility] L499.0042on 04-22-2024 Trop T High Sen 18 ng/L Normal <=22 [facility] Comment on above: Performed By: #### L 499.0042 ####[facility] [address] [place], [address] L501.4021on 04-22-2024 Trop T High Sen 18 ng/L Normal <=22 [facility] Comment on above: Performed By: #### L 500.3400, L100.0100, L500.2500, L501.2450, L501.4021 ####[facility] [address] [place], [address] Lipaseon 04-22-2024 Lipase [Catalytic activity/Vol] 59 U/L Normal 13-75 [facility] Comment on above: Result Comment: Nagi nelson note:LIPASE revised reference range effective 22.New Lipase methodology. Expected to produce lower valuesthan the previous assay method.NEW Reference Range: 13 - 75 U/L Performed By: #### L 500.3400, L100.0100, L500.2500, L501.2450, L501.4021 ####[facility] [address] [place], [address] Liver Profileon 04-22-2024 Albumin [Mass/Vol] 4.2 g/dL Normal 3.4-4.8 [facility] Comment on above: Performed By: #### L 500.3400, L100.0100, L500.2500, L501.2450, L501.4021 ####[facility] [address] [place], [address] ALK PHOS 69 U/L Normal 40-129 [facility] Comment on above: Performed By: #### L 500.3400, L100.0100, L500.2500, L501.2450, L501.4021 ####[facility] [address] [place], [address] ALT [Catalytic activity/Vol] 29 U/L Normal <=46 [facility] Comment on above: Performed By: #### L 500.3400, L100.0100, L500.2500, L501.2450, L501.4021 ####[facility] [address] [place], [address] AST [Catalytic activity/Vol] 33 U/L Normal <=37 [facility] Comment on above: Performed By: #### L 500.3400, L100.0100, L500.2500, L501.2450, L501.4021 ####[facility] [address] [place], [address] Bilirubin [Mass/Vol] 0.56 mg/dL Normal 0.00-1.30 [facility] Comment on above: Performed By: #### L 500.3400, L100.0100, L500.2500, L501.2450, L501.4021 ####[facility] [address] [place], [address] Bilirubin.direct [Mass/Vol] 0.32 mg/dL High 0.00-0.30 [facility] Comment on above: Performed By: #### L 500.3400, L100.0100, L500.2500, L501.2450, L501.4021 ####[facility] [address] [place], [address] Globulin (S) [Mass/Vol] 2.9 g/dL Normal 2.2-4.2 [facility] Comment on above: Performed By: #### L 500.3400, L100.0100, L500.2500, L501.2450, L501.4021 ####[facility] [address] [place], [address] T PROT 7.1 g/dL Normal 5.9-8.4 [facility] Comment on above: Performed By: #### L 500.3400, L100.0100, L500.2500, L501.2450, L501.4021 ####[facility] [address] [place], [address] Lumbar Spine 2 or 3 Viewson 04-22-2024 Lumbar Spine 2 or 3 Views Normal [facility] Prothrombin Time w/INRon INR Coag (PPP) [Relative time] 0.9 {INR} Normal [facility] Comment on above: Performed By: #### L 300.3900 ####[facility] [address] [place], [address] PT Coag (PPP) [Time] 12.3 s Normal 11.7-14.9 [facility] Comment on above: Performed By: #### L 300.3900 ####[facility] [address] [place], [address] Spine Cervical without Contr ason 04-22-2024 Spine Cervical without Contras Normal [facility] CBC W/Diff, Automatedon - Absolute Lymph 0.78 X10 3/uL Low 0.83-4.51 [facility] Comment on above: Performed By: #### L 100.0100, L500.4050, L501.2450 ####[facility] [address] [place], [address] Absolute Neut 3.2 X10 3/uL Normal 2.0-7.7 [facility] Comment on above: Performed By: #### L 100.0100, L500.4050, L501.2450 ####[facility] [address] [place], [address] Basophils/100 WBC (Bld) 0.7 % Normal 0-1 [facility] Comment on above: Performed By: #### L 100.0100, L500.4050, L501.2450 ####[facility] [address] [place], [address] Eosinophils/100 WBC (Bld) 0.2 % Normal 0-5 [facility] Comment on above: Performed By: #### L 100.0100, L500.4050, L501.2450 ####[facility] [address] [place], [address] Erythrocyte distribution width (RBC) [Ratio] 13.7 % Normal 11.6-14.6 [facility] Comment on above: Performed By: #### L 100.0100, L500.4050, L501.2450 ####[facility] [address] [place], [address] Hematocrit (Bld) [Volume fraction] 44.9 % Normal 40-54 [facility] Comment on above: Performed By: #### L 100.0100, L500.4050, L501.2450 ####[facility] [address] [place], [address] Hemoglobin (Bld) [Mass/Vol] 14.9 g/dL Normal 13.0-16.5 [facility] Comment on above: Performed By: #### L 100.0100, L500.4050, L501.2450 ####[facility] [address] [place], [address] IG% 0.400 Normal 0.0-0.9 [facility] Comment on above: Result Comment: IG% - Immature Granulocytes (promyelocytes, myelocytes andmetamyelocytes) > 1% indicates that a LEFT SHIFT is Present. Performed By: #### L 100.0100, L500.4050, L501.2450 ####[facility] [address] [place], [address] Lymphocytes/100 WBC (Bld) 17.0 % Low 19-41 [facility] Comment on above: Performed By: #### L 100.0100, L500.4050, L501.2450 ####[facility] [address] [place], [address] MCH (RBC) [Entitic mass] 32.0 pg Normal 27.0-32.0 [facility] Comment on above: Performed By: #### L 100.0100, L500.4050, L501.2450 ####[facility] [address] [place], [address] MCHC (RBC) [Mass/Vol] 33.2 g/dL Normal 32-36 [facility] Comment on above: Performed By: #### L 100.0100, L500.4050, L501.2450 ####[facility] [address] [place], [address] MCV (RBC) [Entitic vol] 96.4 fL High 80-94 [facility] Comment on above: Performed By: #### L 100.0100, L500.4050, L501.2450 ####[facility] [address] [place], [address] Monocytes/100 WBC (Bld) 12.4 % High 0-10 [facility] Comment on above: Performed By: #### L 100.0100, L500.4050, L501.2450 ####[facility] [address] [place], [address] Neutrophils/100 WBC (Bld) 69.3 % Normal 47-70 [facility] Comment on above: Performed By: #### L 100.0100, L500.4050, L501.2450 ####[facility] [address] [place], [address] Nucleated RBC (Bld) [#/Vol] 0 10*3/uL Normal 0-5 [facility] Comment on above: Performed By: #### L 100.0100, L500.4050, L501.2450 ####[facility] [address] [place], [address] Platelet mean volume (Bld) [Entitic vol] 9.6 fL Normal 6.2-12.0 [facility] Comment on above: Performed By: #### L 100.0100, L500.4050, L501.2450 ####[facility] [address] [place], [address] Platelets (Bld) [#/Vol] 240 10*3/uL Normal 150-450 [facility] Comment on above: Performed By: #### L 100.0100, L500.4050, L501.2450 ####[facility] [address] [place], [address] RBC (Bld) [#/Vol] 4.66 10*6/uL Normal 4.6-6.2 [facility] Comment on above: Performed By: #### L 100.0100, L500.4050, L501.2450 ####[facility] [address] [place], [address] RDW SD 48.6 fl High 35.1-43.9 [facility] Comment on above: Performed By: #### L 100.0100, L500.4050, L501.2450 ####[facility] [address] [place], [address] WBC (Bld) [#/Vol] 4.6 10*3/uL Normal 4.4-11.0 [facility] Comment on above: Performed By: #### L 100.0100, L500.4050, L501.2450 ####[facility] [address] [place], [address] Comprehensive Metabolic Prof [facility] 03-07-2024 Albumin [Mass/Vol] 3.9 g/dL Normal 3.2-5.0 [facility] Comment on above: Performed By: #### L 100.0100, L500.4050, L501.2450 ####[facility] [address] [place], [address] Albumin/Globulin [Mass ratio] 0.9 {ratio} Normal 0.9-2.4 [facility] Comment on above: Performed By: #### L 100.0100, L500.4050, L501.2450 ####[facility] [address] [place], [address] ALK P 77 U/L Normal 45-117 [facility] Comment on above: Performed By: #### L 100.0100, L500.4050, L501.2450 ####[facility] [address] [place], [address] ALT [Catalytic activity/Vol] 56 U/L Normal 16-61 [facility] Comment on above: Performed By: #### L 100.0100, L500.4050, L501.2450 ####[facility] [address] [place], [address] AST [Catalytic activity/Vol] 67 U/L High 15-37 [facility] Comment on above: Performed By: #### L 100.0100, L500.4050, L501.2450 ####[facility] [address] [place], [address] Bilirubin [Mass/Vol] 1.10 mg/dL High 0.20-1.00 [facility] Comment on above: Result Comment: For patients on eltrombopag therapy, use of Dimension [place] TBIL is not recommended. Performed By: #### L 100.0100, L500.4050, L501.2450 ####[facility] [address] [place], [address] BUN/CRE 8.1 RATIO Low 10-20 [facility] Comment on above: Performed By: #### L 100.0100, L500.4050, L501.2450 ####[facility] [address] [place], [address] CA,Total 10.2 mg/dL High 8.5-10.1 [facility] Comment on above: Performed By: #### L 100.0100, L500.4050, L501.2450 ####[facility] [address] [place], [address] Chloride [Moles/Vol] 95 mmol/L Low 98-107 [facility] Comment on above: Performed By: #### L 100.0100, L500.4050, L501.2450 ####[facility] [address] [place], [address] CO2 [Moles/Vol] 34.0 mmol/L High 21.0-32.0 [facility] Comment on above: Performed By: #### L 100.0100, L500.4050, L501.2450 ####[facility] [address] [place], [address] Creatinine [Mass/Vol] 0.99 mg/dL Normal 0.70-1.30 [facility] Comment on above: Result Comment: The validity of the calculated GFR GFRAA in patients over70 years has not been determined. Clinical correlation isessential. Performed By: #### L 100.0100, L500.4050, L501.2450 ####[facility] [address] [place], [address] ECRCL 80.87 ml/min Normal [facility] Comment on above: Performed By: #### L 100.0100, L500.4050, L501.2450 ####[facility] [address] [place], [address] EST GFR - AA 94 mL/min Normal >60 [facility] Comment on above: Result Comment: Afri can [place] GFR Calc Performed By: #### L 100.0100, L500.4050, L501.2450 ####[facility] [address] [place], [address] GAP 6 Normal 5-15 [facility] Comment on above: Performed By: #### L 100.0100, L500.4050, L501.2450 ####[facility] [address] [place], [address] GFR/1.73 sq M.predicted among non-blacks MDRD (S/P/Bld) [Vol rate/Area] 78 mL/min/{1.73_m2} Normal >60 [facility] Comment on above: Result Comment: Non- GFR Calc Performed By: #### L 100.0100, L500.4050, L501.2450 ####[facility] [address] [place], [address] Globulin (S) [Mass/Vol] 4.2 g/dL Normal 2.2-4.2 [facility] Comment on above: Performed By: #### L 100.0100, L500.4050, L501.2450 ####[facility] [address] [place], [address] Glucose [Mass/Vol] 101 mg/dL Normal 74-106 [facility] Comment on above: Result Comment: Fast ing Glucose result from 100 to 125 mg/dLsuggests IMPAIRED HOMEOSTASIS per A.D.A. criteria. Performed By: #### L 100.0100, L500.4050, L501.2450 ####[facility] [address] [place], [address] Potassium [Moles/Vol] 3.7 mmol/L Normal 3.5-5.1 [facility] Comment on above: Performed By: #### L 100.0100, L500.4050, L501.2450 ####[facility] [address] [place], [address] Sodium [Moles/Vol] 135 mmol/L Low 136-145 [facility] Comment on above: Performed By: #### L 100.0100, L500.4050, L501.2450 ####[facility] [address] [place], [address] T PROT 8.1 g/dL Normal 6.4-8.2 [facility] Comment on above: Performed By: #### L 100.0100, L500.4050, L501.2450 ####[facility] [address] [place], [address] Urea nitrogen [Mass/Vol] 8 mg/dL Normal 7-18 [facility] Comment on above: Performed By: #### L 100.0100, L500.4050, L501.2450 ####[facility] [address] [place], [address] Emergency Department Summary on 03-07-2024 Emergency Department Summary Normal [facility] Lipaseon 03-07-2024 Lipase [Catalytic activity/Vol] 58 U/L Normal 13-75 [facility] Comment on above: Result Comment: Nagi nelson note:LIPASE revised reference range effective 22.New Lipase methodology. Expected to produce lower valuesthan the previous assay method.NEW Reference Range: 13 - 75 U/L Performed By: #### L 100.0100, L500.4050, L501.2450 ####[facility] [address] [place], [address] CBC W/Diff, Automatedon -03 11-2024 Absolute Lymph 1.18 X10 3/uL Normal 0.83-4.51 [facility] Comment on above: Performed By: #### L 100.0100 ####[facility] [address] [place], [address] Absolute Neut 2.0 X10 3/uL Normal 2.0-7.7 [facility] Comment on above: Performed By: #### L 100.0100 ####[facility] [address] [place], [address] Basophils/100 WBC (Bld) 1.2 % High 0-1 [facility] Comment on above: Performed By: #### L 100.0100 ####[facility] [address] [place], [address] Eosinophils/100 WBC (Bld) 2.1 % Normal 0-5 [facility] Comment on above: Performed By: #### L 100.0100 ####[facility] [address] [place], [address] Erythrocyte distribution width (RBC) [Ratio] 13.8 % Normal 11.6-14.6 [facility] Comment on above: Performed By: #### L 100.0100 ####[facility] [address] [place], [address] Hematocrit (Bld) [Volume fraction] 42.2 % Normal 40-54 [facility] Comment on above: Performed By: #### L 100.0100 ####[facility] [address] [place], [address] Hemoglobin (Bld) [Mass/Vol] 13.8 g/dL Normal 13.0-16.5 [facility] Comment on above: Performed By: #### L 100.0100 ####[facility] [address] [place], [address] IG% 0.000 Normal 0.0-0.9 [facility] Comment on above: Result Comment: IG% - Immature Granulocytes (promyelocytes, myelocytes andmetamyelocytes) > 1% indicates that a LEFT SHIFT is Present. Performed By: #### L 100.0100 ####[facility] [address] [place], [address] Lymphocytes/100 WBC (Bld) 28.2 % Normal 19-41 [facility] Comment on above: Performed By: #### L 100.0100 ####[facility] [address] [place], [address] MCH (RBC) [Entitic mass] 32.9 pg High 27.0-32.0 [facility] Comment on above: Performed By: #### L 100.0100 ####[facility] [address] [place], [address] MCHC (RBC) [Mass/Vol] 32.7 g/dL Normal 32-36 [facility] Comment on above: Performed By: #### L 100.0100 ####[facility] [address] [place], [address] MCV (RBC) [Entitic vol] 100.5 fL High 80-94 [facility] Comment on above: Performed By: #### L 100.0100 ####[facility] [address] [place], [address] Monocytes/100 WBC (Bld) 20.8 % High 0-10 [facility] Comment on above: Performed By: #### L 100.0100 ####[facility] [address] [place], [address] Neutrophils/100 WBC (Bld) 47.7 % Normal 47-70 [facility] Comment on above: Performed By: #### L 100.0100 ####[facility] [address] [place], [address] Nucleated RBC (Bld) [#/Vol] 0 10*3/uL Normal 0-5 [facility] Comment on above: Performed By: #### L 100.0100 ####[facility] [address] [place], [address] Platelet mean volume (Bld) [Entitic vol] 10.5 fL Normal 6.2-12.0 [facility] Comment on above: Performed By: #### L 100.0100 ####[facility] [address] [place], [address] Platelets (Bld) [#/Vol] 199 10*3/uL Normal 150-450 [facility] Comment on above: Performed By: #### L 100.0100 ####[facility] [address] [place], [address] RBC (Bld) [#/Vol] 4.20 10*6/uL Low 4.6-6.2 [facility] Comment on above: Performed By: #### L 100.0100 ####[facility] [address] [place], [address] RDW SD 50.9 fl High 35.1-43.9 [facility] Comment on above: Performed By: #### L 100.0100 ####[facility] [address] [place], [address] WBC (Bld) [#/Vol] 4.2 10*3/uL Low 4.4-11.0 [facility] Comment on above: Performed By: #### L 100.0100 ####[facility] [address] [place], [address] Basic Metabolic Profile (BMP )on 02-20-2024 BUN/CRE 8.8 RATIO Low 10-20 [facility] Comment on above: Performed By: #### L 500.2500, L100.0100 ####[facility] [address] [place], [address] CA,Total 8.8 mg/dL Normal 8.5-10.1 [facility] Comment on above: Performed By: #### L 500.2500, L100.0100 ####[facility] [address] [place], [address] Chloride [Moles/Vol] 99 mmol/L Normal 98-107 [facility] Comment on above: Performed By: #### L 500.2500, L100.0100 ####[facility] [address] [place], [address] CO2 [Moles/Vol] 28.0 mmol/L Normal 21.0-32.0 [facility] Comment on above: Performed By: #### L 500.2500, L100.0100 ####[facility] [address] [place], [address] Creatinine [Mass/Vol] 0.80 mg/dL Normal 0.70-1.30 [facility] Comment on above: Result Comment: The validity of the calculated GFR GFRAA in patients over70 years has not been determined. Clinical correlation isessential. Performed By: #### L 500.2500, L100.0100 ####[facility] [address] [place], [address] ECRCL 103.48 ml/min Normal [facility] Comment on above: Performed By: #### L 500.2500, L100.0100 ####[facility] [address] [place], [address] EST GFR - AA 122 mL/min Normal >60 [facility] Comment on above: Result Comment: Afri can [place] GFR Calc Performed By: #### L 500.2500, L100.0100 ####[facility] [address] [place], [address] GAP 11 Normal 5-15 [facility] Comment on above: Performed By: #### L 500.2500, L100.0100 ####[facility] [address] [place], [address] GFR/1.73 sq M.predicted among non-blacks MDRD (S/P/Bld) [Vol rate/Area] 101 mL/min/{1.73_m2} Normal >60 [facility] Comment on above: Result Comment: Non- GFR Calc Performed By: #### L 500.2500, L100.0100 ####[facility] [address] [place], [address] Glucose [Mass/Vol] 80 mg/dL Normal 74-106 [facility] Comment on above: Performed By: #### L 500.2500, L100.0100 ####[facility] [address] [place], [address] Potassium [Moles/Vol] 3.8 mmol/L Normal 3.5-5.1 [facility] Comment on above: Performed By: #### L 500.2500, L100.0100 ####[facility] [address] [place], [address] Sodium [Moles/Vol] 138 mmol/L Normal 136-145 [facility] Comment on above: Performed By: #### L 500.2500, L100.0100 ####[facility] [address] [place], [address] Urea nitrogen [Mass/Vol] 7 mg/dL Normal 7-18 [facility] Comment on above: Performed By: #### L 500.2500, L100.0100 ####[facility] [address] [place], [address] CBC W/Diff, Automatedon -02 09-2024 Absolute Lymph 1.34 X10 3/uL Normal 0.83-4.51 [facility] Comment on above: Performed By: #### L 500.2500, L100.0100 ####[facility] [address] [place], [address] Absolute Neut 3.0 X10 3/uL Normal 2.0-7.7 [facility] Comment on above: Performed By: #### L 500.2500, L100.0100 ####[facility] [address] [place], [address] Basophils/100 WBC (Bld) 0.4 % Normal 0-1 [facility] Comment on above: Performed By: #### L 500.2500, L100.0100 ####[facility] [address] [place], [address] Eosinophils/100 WBC (Bld) 2.0 % Normal 0-5 [facility] Comment on above: Performed By: #### L 500.2500, L100.0100 ####[facility] [address] [place], [address] Erythrocyte distribution width (RBC) [Ratio] 14.2 % Normal 11.6-14.6 [facility] Comment on above: Performed By: #### L 500.2500, L100.0100 ####[facility] [address] [place], [address] Hematocrit (Bld) [Volume fraction] 41.0 % Normal 40-54 [facility] Comment on above: Performed By: #### L 500.2500, L100.0100 ####[facility] [address] [place], [address] Hemoglobin (Bld) [Mass/Vol] 13.7 g/dL Normal 13.0-16.5 [facility] Comment on above: Performed By: #### L 500.2500, L100.0100 ####[facility] [address] [place], [address] IG% 0.400 Normal 0.0-0.9 [facility] Comment on above: Result Comment: IG% - Immature Granulocytes (promyelocytes, myelocytes andmetamyelocytes) > 1% indicates that a LEFT SHIFT is Present. Performed By: #### L 500.2500, L100.0100 ####[facility] [address] [place], [address] Lymphocytes/100 WBC (Bld) 26.2 % Normal 19-41 [facility] Comment on above: Performed By: #### L 500.2500, L100.0100 ####[facility] [address] [place], [address] MCH (RBC) [Entitic mass] 32.9 pg High 27.0-32.0 [facility] Comment on above: Performed By: #### L 500.2500, L100.0100 ####[facility] [address] [place], [address] MCHC (RBC) [Mass/Vol] 33.4 g/dL Normal 32-36 [facility] Comment on above: Performed By: #### L 500.2500, L100.0100 ####[facility] [address] [place], [address] MCV (RBC) [Entitic vol] 98.6 fL High 80-94 [facility] Comment on above: Performed By: #### L 500.2500, L100.0100 ####[facility] [address] [place], [address] Monocytes/100 WBC (Bld) 12.3 % High 0-10 [facility] Comment on above: Performed By: #### L 500.2500, L100.0100 ####[facility] [address] [place], [address] Neutrophils/100 WBC (Bld) 58.7 % Normal 47-70 [facility] Comment on above: Performed By: #### L 500.2500, L100.0100 ####[facility] [address] [place], [address] Nucleated RBC (Bld) [#/Vol] 0 10*3/uL Normal 0-5 [facility] Comment on above: Performed By: #### L 500.2500, L100.0100 ####[facility] [address] [place], [address] Platelet mean volume (Bld) [Entitic vol] 9.4 fL Normal 6.2-12.0 [facility] Comment on above: Performed By: #### L 500.2500, L100.0100 ####[facility] [address] [place], [address] Platelets (Bld) [#/Vol] 107 10*3/uL Low 150-450 [facility] Comment on above: Performed By: #### L 500.2500, L100.0100 ####[facility] [address] [place], [address] RBC (Bld) [#/Vol] 4.16 10*6/uL Low 4.6-6.2 [facility] Comment on above: Performed By: #### L 500.2500, L100.0100 ####[facility] [address] [place], [address] RDW SD 50.7 fl High 35.1-43.9 [facility] Comment on above: Performed By: #### L 500.2500, L100.0100 ####[facility] [address] [place], [address] WBC (Bld) [#/Vol] 5.1 10*3/uL Normal 4.4-11.0 [facility] Comment on above: Performed By: #### L 500.2500, L100.0100 ####[facility] [address] [place], [address] Emergency Department Summary on 02-20-2024 Emergency Department Summary Normal [facility] Plastic Surgery Visit Report on 02-03-2024 Plastic Surgery Visit Report Normal [facility] Plastic Surgery Visit Report on 01-27-2024 Plastic Surgery Visit Report Normal [facility] Surgery Specimen Level Ibis 01-27-2024 Surgery Specimen Level IV Normal [facility] Comment on above: Performed By: #### P SUIV ####[facility] [address] [place], [address] Plastic Surgery Visit Report on 12-30-2023 Plastic Surgery Visit Report Normal [facility] 12 Lead EKGon 12-18-2023 12 Lead EKG Normal [facility] CBC W/Diff, Automatedon 12-08 Absolute Lymph 2.50 X10 3/uL Normal 0.83-4.51 [facility] Comment on above: Performed By: #### L 501.2450, L501.4020, L100.0100, L500.4050 ####[facility] [address] [place], [address] Absolute Neut 3.5 X10 3/uL Normal 2.0-7.7 [facility] Comment on above: Performed By: #### L 501.2450, L501.4020, L100.0100, L500.4050 ####[facility] [address] [place], [address] Basophils/100 WBC (Bld) 0.6 % Normal 0-1 [facility] Comment on above: Performed By: #### L 501.2450, L501.4020, L100.0100, L500.4050 ####[facility] [address] [place], [address] Eosinophils/100 WBC (Bld) 0.7 % Normal 0-5 [facility] Comment on above: Performed By: #### L 501.2450, L501.4020, L100.0100, L500.4050 ####[facility] [address] [place], [address] Erythrocyte distribution width (RBC) [Ratio] 13.4 % Normal 11.6-14.6 [facility] Comment on above: Performed By: #### L 501.2450, L501.4020, L100.0100, L500.4050 ####[facility] [address] [place], [address] Hematocrit (Bld) [Volume fraction] 43.9 % Normal 40-54 [facility] Comment on above: Performed By: #### L 501.2450, L501.4020, L100.0100, L500.4050 ####[facility] [address] [place], [address] Hemoglobin (Bld) [Mass/Vol] 15.1 g/dL Normal 13.0-16.5 [facility] Comment on above: Performed By: #### L 501.2450, L501.4020, L100.0100, L500.4050 ####[facility] [address] [place], [address] IG% 0.300 Normal 0.0-0.9 [facility] Comment on above: Result Comment: IG% - Immature Granulocytes (promyelocytes, myelocytes andmetamyelocytes) > 1% indicates that a LEFT SHIFT is Present. Performed By: #### L 501.2450, L501.4020, L100.0100, L500.4050 ####[facility] [address] [place], [address] Lymphocytes/100 WBC (Bld) 36.9 % Normal 19-41 [facility] Comment on above: Performed By: #### L 501.2450, L501.4020, L100.0100, L500.4050 ####[facility] [address] [place], [address] MCH (RBC) [Entitic mass] 33.8 pg High 27.0-32.0 [facility] Comment on above: Performed By: #### L 501.2450, L501.4020, L100.0100, L500.4050 ####[facility] [address] [place], [address] MCHC (RBC) [Mass/Vol] 34.4 g/dL Normal 32-36 [facility] Comment on above: Performed By: #### L 501.2450, L501.4020, L100.0100, L500.4050 ####[facility] [address] [place], [address] MCV (RBC) [Entitic vol] 98.2 fL High 80-94 [facility] Comment on above: Performed By: #### L 501.2450, L501.4020, L100.0100, L500.4050 ####[facility] [address] [place], [address] Monocytes/100 WBC (Bld) 9.7 % Normal 0-10 [facility] Comment on above: Performed By: #### L 501.2450, L501.4020, L100.0100, L500.4050 ####[facility] [address] [place], [address] Neutrophils/100 WBC (Bld) 51.8 % Normal 47-70 [facility] Comment on above: Performed By: #### L 501.2450, L501.4020, L100.0100, L500.4050 ####[facility] [address] [place], [address] Nucleated RBC (Bld) [#/Vol] 0 10*3/uL Normal 0-5 [facility] Comment on above: Performed By: #### L 501.2450, L501.4020, L100.0100, L500.4050 ####[facility] [address] [place], [address] Platelet mean volume (Bld) [Entitic vol] 9.7 fL Normal 6.2-12.0 [facility] Comment on above: Performed By: #### L 501.2450, L501.4020, L100.0100, L500.4050 ####[facility] [address] [place], [address] Platelets (Bld) [#/Vol] 235 10*3/uL Normal 150-450 [facility] Comment on above: Performed By: #### L 501.2450, L501.4020, L100.0100, L500.4050 ####[facility] [address] [place], [address] RBC (Bld) [#/Vol] 4.47 10*6/uL Low 4.6-6.2 [facility] Comment on above: Performed By: #### L 501.2450, L501.4020, L100.0100, L500.4050 ####[facility] [address] [place], [address] RDW SD 49.0 fl High 35.1-43.9 [facility] Comment on above: Performed By: #### L 501.2450, L501.4020, L100.0100, L500.4050 ####[facility] [address] [place], [address] WBC (Bld) [#/Vol] 6.8 10*3/uL Normal 4.4-11.0 [facility] Comment on above: Performed By: #### L 501.2450, L501.4020, L100.0100, L500.4050 ####[facility] [address] [place], [address] Comprehensive Metabolic Prof ilon 12-18-2023 Albumin [Mass/Vol] 3.6 g/dL Normal 3.2-5.0 [facility] Comment on above: Order Comment: 'TROP ' Serial specimen #1, #2 or #3: 1 Performed By: #### L 501.2450, L501.4020, L100.0100, L500.4050 ####[facility] [address] [place], [address] Albumin/Globulin [Mass ratio] 0.9 {ratio} Normal 0.9-2.4 [facility] Comment on above: Order Comment: 'TROP ' Serial specimen #1, #2 or #3: 1 Performed By: #### L 501.2450, L501.4020, L100.0100, L500.4050 ####[facility] [address] [place], [address] ALK P 74 U/L Normal 45-117 [facility] Comment on above: Order Comment: 'TROP ' Serial specimen #1, #2 or #3: 1 Performed By: #### L 501.2450, L501.4020, L100.0100, L500.4050 ####[facility] [address] [place], [address] ALT [Catalytic activity/Vol] 29 U/L Normal 16-61 [facility] Comment on above: Order Comment: 'TROP ' Serial specimen #1, #2 or #3: 1 Performed By: #### L 501.2450, L501.4020, L100.0100, L500.4050 ####[facility] [address] [place], [address] AST [Catalytic activity/Vol] 41 U/L High 15-37 [facility] Comment on above: Order Comment: 'TROP ' Serial specimen #1, #2 or #3: 1 Performed By: #### L 501.2450, L501.4020, L100.0100, L500.4050 ####[facility] [address] [place], [address] Bilirubin [Mass/Vol] 0.30 mg/dL Normal 0.20-1.00 [facility] Comment on above: Order Comment: 'TROP ' Serial specimen #1, #2 or #3: 1 Result Comment: For patients on eltrombopag therapy, use of Dimension [place] TBIL is not recommended. Performed By: #### L 501.2450, L501.4020, L100.0100, L500.4050 ####[facility] [address] [place], [address] BUN/CRE 13.9 RATIO Normal 10-20 [facility] Comment on above: Order Comment: 'TROP ' Serial specimen #1, #2 or #3: 1 Performed By: #### L 501.2450, L501.4020, L100.0100, L500.4050 ####[facility] [address] [place], [address] CA,Total 9.2 mg/dL Normal 8.5-10.1 [facility] Comment on above: Order Comment: 'TROP ' Serial specimen #1, #2 or #3: 1 Performed By: #### L 501.2450, L501.4020, L100.0100, L500.4050 ####[facility] [address] [place], [address] Chloride [Moles/Vol] 105 mmol/L Normal 98-107 [facility] Comment on above: Order Comment: 'TROP ' Serial specimen #1, #2 or #3: 1 Performed By: #### L 501.2450, L501.4020, L100.0100, L500.4050 ####[facility] [address] [place], [address] CO2 [Moles/Vol] 25.0 mmol/L Normal 21.0-32.0 [facility] Comment on above: Order Comment: 'TROP ' Serial specimen #1, #2 or #3: 1 Performed By: #### L 501.2450, L501.4020, L100.0100, L500.4050 ####[facility] [address] [place], [address] Creatinine [Mass/Vol] 1.08 mg/dL Normal 0.70-1.30 [facility] Comment on above: Order Comment: 'TROP ' Serial specimen #1, #2 or #3: 1 Result Comment: The validity of the calculated GFR GFRAA in patients over70 years has not been determined. Clinical correlation isessential. Performed By: #### L 501.2450, L501.4020, L100.0100, L500.4050 ####[facility] [address] [place], [address] ECRCL 75.77 ml/min Normal [facility] Comment on above: Order Comment: 'TROP ' Serial specimen #1, #2 or #3: 1 Performed By: #### L 501.2450, L501.4020, L100.0100, L500.4050 ####[facility] [address] [place], [address] EST GFR - AA 86 mL/min Normal >60 [facility] Comment on above: Order Comment: 'TROP ' Serial specimen #1, #2 or #3: 1 Result Comment: Afri can [place] GFR Calc Performed By: #### L 501.2450, L501.4020, L100.0100, L500.4050 ####[facility] [address] [place], [address] GAP 8 Normal 5-15 [facility] Comment on above: Order Comment: 'TROP ' Serial specimen #1, #2 or #3: 1 Performed By: #### L 501.2450, L501.4020, L100.0100, L500.4050 ####[facility] [address] [place], [address] GFR/1.73 sq M.predicted among non-blacks MDRD (S/P/Bld) [Vol rate/Area] 71 mL/min/{1.73_m2} Normal >60 [facility] Comment on above: Order Comment: 'TROP ' Serial specimen #1, #2 or #3: 1 Result Comment: Non- GFR Calc Performed By: #### L 501.2450, L501.4020, L100.0100, L500.4050 ####[facility] [address] [place], [address] Globulin (S) [Mass/Vol] 3.9 g/dL Normal 2.2-4.2 [facility] Comment on above: Order Comment: 'TROP ' Serial specimen #1, #2 or #3: 1 Performed By: #### L 501.2450, L501.4020, L100.0100, L500.4050 ####[facility] [address] [place], [address] Glucose [Mass/Vol] 107 mg/dL High 74-106 [facility] Comment on above: Order Comment: 'TROP ' Serial specimen #1, #2 or #3: 1 Result Comment: Fast ing Glucose result from 100 to 125 mg/dLsuggests IMPAIRED HOMEOSTASIS per A.D.A. criteria. Performed By: #### L 501.2450, L501.4020, L100.0100, L500.4050 ####[facility] [address] [place], [address] Potassium [Moles/Vol] 4.2 mmol/L Normal 3.5-5.1 [facility] Comment on above: Order Comment: 'TROP ' Serial specimen #1, #2 or #3: 1 Performed By: #### L 501.2450, L501.4020, L100.0100, L500.4050 ####[facility] [address] [place], [address] Sodium [Moles/Vol] 138 mmol/L Normal 136-145 [facility] Comment on above: Order Comment: 'TROP ' Serial specimen #1, #2 or #3: 1 Performed By: #### L 501.2450, L501.4020, L100.0100, L500.4050 ####[facility] [address] [place], [address] T PROT 7.5 g/dL Normal 6.4-8.2 [facility] Comment on above: Order Comment: 'TROP ' Serial specimen #1, #2 or #3: 1 Performed By: #### L 501.2450, L501.4020, L100.0100, L500.4050 ####[facility] [address] [place], [address] Urea nitrogen [Mass/Vol] 15 mg/dL Normal 7-18 [facility] Comment on above: Order Comment: 'TROP ' Serial specimen #1, #2 or #3: 1 Performed By: #### L 501.2450, L501.4020, L100.0100, L500.4050 ####[facility] [address] [place], [address] Emergency Department Summary on 12-18-2023 Emergency Department Summary Normal [facility] L501.4020on 12-18-2023 TROPONIN-I HS 14 pg/mL Normal 3.0-78.0 [facility] Comment on above: Order Comment: 'TROP ' Serial specimen #1, #2 or #3: 1 Result Comment: Nagi nelson Note: New Test Units and Gender Specific Reference Ranges. For more information see Policy Stat Procedure [place] High Sensitivity Troponin (TNIH) and attachments. Performed By: #### L 501.2450, L501.4020, L100.0100, L500.4050 ####[facility] [address] [place], [address] Lipaseon 12-18-2023 Lipase [Catalytic activity/Vol] 58 U/L Normal 13-75 [facility] Comment on above: Order Comment: 'TROP ' Serial specimen #1, #2 or #3: 1 Result Comment: Nagi nelson note:LIPASE revised reference range effective 22.New Lipase methodology. Expected to produce lower valuesthan the previous assay method.NEW Reference Range: 13 - 75 U/L Performed By: #### L 501.2450, L501.4020, L100.0100, L500.4050 ####[facility] [address] [place], [address] Urinalysis, Completeon 12-17 BACTERIA Normal None Seen [facility] Comment on above: Order Comment: CLEAN CATCH Result Comment: PT D ISCHARGED Performed By: #### L 400.0001 ####[facility] [address] [place], [address] BILIRUBIN URINE Normal Negative [facility] Comment on above: Order Comment: CLEAN CATCH Result Comment: PT D ISCHARGED Performed By: #### L 400.0001 ####[facility] [address] [place], [address] Clarity (U) Normal Clear [facility] Comment on above: Order Comment: CLEAN CATCH Result Comment: PT D ISCHARGED Performed By: #### L 400.0001 ####[facility] [address] [place], [address] Color (U) Normal Yellow [facility] Comment on above: Order Comment: CLEAN CATCH Result Comment: PT D ISCHARGED Performed By: #### L 400.0001 ####[facility] [address] [place], [address] EPI,SQUAMOUS Normal 0-5 [facility] Comment on above: Order Comment: CLEAN CATCH Result Comment: PT D ISCHARGED Performed By: #### L 400.0001 ####[facility] [address] [place], [address] GLUCOSE, UR Normal Normal [facility] Comment on above: Order Comment: CLEAN CATCH Result Comment: PT D ISCHARGED Performed By: #### L 400.0001 ####[facility] [address] [place], [address] KETONE UR Normal Negative [facility] Comment on above: Order Comment: CLEAN CATCH Result Comment: PT D ISCHARGED Performed By: #### L 400.0001 ####[facility] [address] [place], [address] LEUK ESTERASE Normal Negative [facility] Comment on above: Order Comment: CLEAN CATCH Result Comment: PT D ISCHARGED Performed By: #### L 400.0001 ####[facility] [address] [place], [address] Mucus Ql (Urine sed) Normal [facility] Comment on above: Order Comment: CLEAN CATCH Result Comment: PT D ISCHARGED Performed By: #### L 400.0001 ####[facility] [address] [place], [address] Nitrite Ql (U) Normal Negative [facility] Comment on above: Order Comment: CLEAN CATCH Result Comment: PT D ISCHARGED Performed By: #### L 400.0001 ####[facility] [address] [place], [address] OCCULT BLOOD-UR Normal Negative [facility] Comment on above: Order Comment: CLEAN CATCH Result Comment: PT D ISCHARGED Performed By: #### L 400.0001 ####[facility] [address] [place], [address] pH UR Normal 5.0 - 8.0 [facility] Comment on above: Order Comment: CLEAN CATCH Result Comment: PT D ISCHARGED Performed By: #### L 400.0001 ####[facility] [address] [place], [address] PROT DIPSTX Normal Negative [facility] Comment on above: Order Comment: CLEAN CATCH Result Comment: PT D ISCHARGED Performed By: #### L 400.0001 ####[facility] [address] [place], [address] RBC Normal 0-5 [facility] Comment on above: Order Comment: CLEAN CATCH Result Comment: PT D ISCHARGED Performed By: #### L 400.0001 ####[facility] [address] [place], [address] SP.GR. DIPSTX Normal 1.002-1.030 [facility] Comment on above: Order Comment: CLEAN CATCH Result Comment: PT D ISCHARGED Performed By: #### L 400.0001 ####[facility] [address] [place], [address] UR Preservative Normal [facility] Comment on above: Order Comment: CLEAN CATCH Result Comment: PT D ISCHARGED Performed By: #### L 400.0001 ####[facility] [address] [place], [address] UROBILI Normal Normal [facility] Comment on above: Order Comment: CLEAN CATCH Result Comment: PT D ISCHARGED Performed By: #### L 400.0001 ####[facility] [address] [place], [address] WBC Normal 0-5 [facility] Comment on above: Order Comment: CLEAN CATCH Result Comment: PT D ISCHARGED Performed By: #### L 400.0001 ####[facility] [address] [place], [address] Lipaseon 12-09-2023 Lipase [Catalytic activity/Vol] 58 U/L Normal 13-75 [facility] Comment on above: Result Comment: Plea note:LIPASE revised reference range effective 22.New Lipase methodology. Expected to produce lower valuesthan the previous assay method.NEW Reference Range: 13 - 75 U/L Performed By: #### L 501.2450, L500.3400 ####[facility] [address] [place], [address] Liver Profileon 12-09-2023 Albumin [Mass/Vol] 3.5 g/dL Normal 3.2-5.0 [facility] Comment on above: Performed By: #### L 501.2450, L500.3400 ####[facility] [address] [place], [address] ALK P 70 U/L Normal 45-117 [facility] Comment on above: Performed By: #### L 501.2450, L500.3400 ####[facility] [address] [place], [address] ALT [Catalytic activity/Vol] 35 U/L Normal 16-61 [facility] Comment on above: Performed By: #### L 501.2450, L500.3400 ####[facility] [address] [place], [address] AST [Catalytic activity/Vol] 31 U/L Normal 15-37 [facility] Comment on above: Performed By: #### L 501.2450, L500.3400 ####[facility] [address] [place], [address] Bilirubin [Mass/Vol] 0.70 mg/dL Normal 0.20-1.00 [facility] Comment on above: Result Comment: For patients on eltrombopag therapy, use of Dimension [place] TBIL is not recommended. Performed By: #### L 501.2450, L500.3400 ####[facility] [address] [place], [address] Bilirubin.direct [Mass/Vol] 0.25 mg/dL Normal 0.00-0.30 [facility] Comment on above: Performed By: #### L 501.2450, L500.3400 ####[facility] [address] [place], [address] Globulin (S) [Mass/Vol] 4.0 g/dL Normal 2.2-4.2 [facility] Comment on above: Performed By: #### L 501.2450, L500.3400 ####[facility] [address] [place], [address] T PROT 7.5 g/dL Normal 6.4-8.2 [facility] Comment on above: Performed By: #### L 501.2450, L500.3400 ####[facility] [address] [place], [address] Surgery Specimen Level Ibis 12-09-2023 Surgery Specimen Level IV Normal [facility] Comment on above: Performed By: #### P SUIV ####[facility] [address] [place], [address] Miscellaneous Lab Procedureo n 11-09-2023 [facility] TEST . Normal [facility] Comment on above: Order Comment: STOOL CULTURE [id number] CULTURE [id number] Result Comment: Salm onella/Shigella Screen Final Report No Salmonella or Shigella recovered.Campylobacter Culture Final Report No Campylobacter species isolatedE coli Shiga Toxin EIA Final Report Negative TESTING PERFORMED AT [facility]. ORIGINAL REPORT ON FILE IN LAB CONTAINS ADDITIONAL TEST SITE INFORMATION. ____ Performed By: #### M 100.7900, M600.5000, L801.1541 ####[facility] [address] [place], [address] Ova and Parasites 8623on OP Normal [facility] Comment on above: Performed By: #### M 100.7900, M600.5000, L801.1541 ####[facility] [address] [place], [address] Abdomen/Pelvis WITH Contrast on 11-03-2023 Abdomen/Pelvis WITH Contrast Normal [facility] CREATININE FINGERSTICKon CREATININE WB < 1.0 Normal 0.70-1.30 [facility] Comment on above: Performed By: #### L 9100.0200 ####[facility] [address] [place], [address] EGFR WB > 60.0000 Normal >60 [facility] Comment on above: Performed By: #### L 9100.0200 ####[facility] [address] [place], [address] Stool Occult Blood iFOBon STOB Negative Normal [facility] Comment on above: Performed By: #### M 100.7900, M600.5000, L801.1541 ####[facility] [address] [place], [address] PSA,Total - Annual Screenon 10-25-2023 PSA,TOT SCREEN 0.83 ng/mL Normal 0.00-4.00 [facility] Comment on above: Result Comment: This test was performed using the TPSA assay method for theAmerican [employer] chemistry system. Values obtained with differentassay methods cannot be used interchangably.When changing PSA assays in the course of monitoring apatient, additional sequential testing should be carriedout to confirm baseline values. Performed By: #### L 501.9910 ####[facility] [address] [place], [address] PROGRESSon 04-01-2018 Protein mass conc HNO ID: [id number] Author: Ki Galaviz Service: (none) Author Type: Physician Type: Progress Notes Filed: 04/01/2018 9:54 AM Note Text: OPERATIVE NOTATION FOR [facility] SURGICAL PROCEDURE. March 17, 2018 Brian Segura 1950 [id number] male PROCEDURE: EGD WITH BIOPSY - [id number] SURGEON: Baljit Galaviz M.D. FACS [employer] HAND: None DEPT: WQ PROVIDER: [id number] Galaviz MD POS: 2I3=HMULWTAEY DIAGNOSIS: (K92.0) Hematemesis, presence of nausea not [...] Clean Contaminated Operative note dictated in the [facility] dictation system. Ki Galaviz MD [facility] Encounters Encounter Date Encounter Type Care Provider Facility Start: 10-13-2024 End: 10-13-2024 Emergency department patient visit [facility] Facility:[facility] Start: 10-13-2024 End: 10-13-2024 Emergency department patient visit [facility] Facility:[facility] Start: 10-01-2024 End: 10-01-2024 Emergency department patient visit [facility] Facility:[facility] Start: 07-25-2024 End: 07-25-2024 Emergency department patient visit [facility] Facility:[facility] Start: 07-14-2024 End: 07-14-2024 Emergency department patient visit [facility] Facility:[facility] Start: 07-10-2024 End: 07-10-2024 ambulatory [facility] Facility:[facility] Start: 07-05-2024 End: 07-05-2024 ambulatory [facility] Facility:[facility] Start: 06-21-2024 End: 06-21-2024 ambulatory [facility] Facility:[facility] Start: 06-07-2024 End: 06-07-2024 Emergency department patient visit [facility] Facility:[facility] Start: 05-28-2024 End: 05-28-2024 Emergency department patient visit Alfred Bailey Facility:[facility] Start: 05-26-2024 End: 05-26-2024 Emergency department patient visit Alfred Bailey Facility:[facility] Start: 05-21-2024 ambulatory Alfred Bailey Facility: [facility] Start: 04-30-2024 ambulatory Alfred Bailey Facility: [facility] Start: 04-22-2024 End: 04-27-2024 ambulatory Alfred Bailey Facility:[facility] Start: 03-07-2024 End: 03-07-2024 Emergency department patient visit Alfred Bailey Facility:[facility] Start: 02-29-2024 End: 02-29-2024 ambulatory Alfred Bailey Facility:[facility] Start: 02-20-2024 End: 02-20-2024 Emergency department patient visit Alfred Bailey Facility:[facility] Start: 02-03-2024 End: 02-03-2024 ambulatory Alfred Bailey Facility:[facility] Start: 01-27-2024 End: 01-27-2024 ambulatory Alfred Bailey Facility:[facility] Start: 01-27-2024 End: 01-27-2024 ambulatory Alfred Bailey Facility:[facility] Start: 12-30-2023 End: 12-30-2023 ambulatory Alfred Bailey Facility:[facility] Start: 12-18-2023 End: 12-19-2023 Emergency department patient visit Alfred Bailey Facility:[facility] Start: 12-09-2023 End: 12-09-2023 ambulatory Alfred Bailey Facility:[facility] Start: 11-03-2023 End: 11-03-2023 ambulatory Alfred Lynn Facility:[facility] Start: 10-28-2023 End: 10-28-2023 ambulatory Alfred Lynn Facility:[facility] Start: 10-25-2023 End: 10-25-2023 ambulatory Alfred CornejoLynn Facility:[facility] Start: 04-13-2023 End: 04-14-[address] WILLIE BLANK MD Facility:[facility] Start: 04-13-2023 End: 04-13-[address] WILLIE BLANK MD [facility] Procedures Date Procedure Procedure Detail [...] Immunization Date Immunization Notes Care Provider Fa [facility] 07-10-2013 pneumococcal polysaccharide vaccine, [address] WILLIE BLANK MD [facility] Payers Date Payer Category Payer Self-pay 2023 Unknown [id number] 1950 Unknown [id number] 2.16.8 40.1.089228.3.579.2.627 Unknown [id number] 2.16.8 40.1.478555.3.579.2.462 Unknown [id number] 2.16.8 40.1.975896.3.579.2.462 Unknown [id number] 2.16.8 40.1.891169.3.579.2.462 Unknown [id number] 2.16.8 40.1.041614.3.579.2.462 Unknown [id number] 2.16.8 40.1.410772.3.579.2.462 Unknown [id number] 2.16.8 40.1.710252.3.579.2.462 Unknown [id number] 2.16.8 40.1.586383.3.579.2.462 Unknown [id number] 2.16.8 40.1.958642.3.579.2.462 Unknown [id number] 2.16.8 40.1.068548.3.579.2.462 Unknown [id number] 2.16.8 40.1.265619.3.579.2.462 Unknown [id number] 2.16.8 40.1.984208.3.579.2.462 Unknown [id number] 2.16.8 40.1.168272.3.579.2.462 Unknown [id number] 2.16.8 40.1.800829.3.579.2.462 Unknown [id number] 2.16.8 40.1.866565.3.579.2.462 Unknown [id number] 2.16.8 40.1.140607.3.579.2.462 Unknown [id number] 2.16.8 40.1.524930.3.579.2.462 Unknown [id number] 2.16.8 40.1.747803.3.579.2.462 Unknown [id number] 2.16.8 40.1.537322.3.579.2.462 Unknown [id number] 2.16.8 40.1.722756.3.579.2.462 Unknown [id number] 2.16.8 40.1.760604.3.579.2.462 Unknown [id number] 2.16.8 40.1.637900.3.579.2.462 Unknown [id number] 2.16.8 40.1.889929.3.579.2.462 Unknown [id number] 2.16.8 40.1.145549.3.579.2.462 Unknown [id number] 2.16.8 40.1.013837.3.579.2.462 Unknown [id number] 2.16.8 40.1.993353.3.579.2.462 Unknown [id number] 2.16.8 40.1.066575.3.579.2.462 Unknown [id number] 2.16.8 40.1.985784.3.579.2.462 Unknown [id number] 2.16.8 40.1.825463.3.579.2.462 Unknown [id number] 2.16.8 40.1.135182.3.579.2.462 Unknown [id number] 2.16.8 40.1.929289.3.579.2.462 Unknown [id number] 2.16.8 40.1.204030.3.579.2.462 Unknown [id number] 2.16.8 40.1.672685.3.579.2.462 Unknown [id number] 2.16.8 40.1.056769.3.579.2.462 Social History Date Type Detail Facility Tobacco smoking status Ex-smoker (finding ) [facility] Sex Assigned At Male [facility] Discharge summary note 04-27-2024 Note Date & Type Note Facility 04-27-2024 Note [facility] Consultation note 04-24-2024 Note Date & Type Note Facility 04-24-2024 Note [facility] Clinical Note 04-13-2023 Note Date & Type Note Facility 04-13-2023 Note Sinus rhythm Probable left atrial enlargement Anteroseptal infarct, age indeterminate Electronic Signature: NEVILLE UNDERWOOD MD 04/13/2023 16:41:28 [facility] Evaluation + Plan note Note Date & Type Note Facility Evaluation + Plan note No data available for this section [facility] Hospital Discharge instructions Note Date & Type Note Facility Hospital Discharge instructions No data available for this section [facility] Progress note Note Date & Type Note Facility Progress note No data available for this section [facility] Summary Purpose Family History No Family History Records Found No data available for this section No Family History Records FoundNo Family History Records Found Advance Directives No Advanced Directives Records FoundNo Advanced Directives Records FoundNo Advanced Directives Records Found Procedure Findings Note Operative Note (Enc) (GENSWS ) Progress Notes: Ki Galaviz MD 04/01/2018 9:54 AM Signed OPERATIVE NOTATION FOR [facility] SURGICAL PROCEDURE. March 17, 2018 Brian Segura 1950 [id number] male PROCEDURE: EGD WITH BIOPSY - [id number] SURGEON: Baljit Galaviz M.D. FACS [employer] HAND: None DEPT: WEli PROVIDER: [id number] Galaviz MD POS: [id number] DIAGNOSIS: (K92.0) Hematemesis, presence of nausea not [...] Clean Contaminated Operative note dictated in the [facility] dictation sys (more content not included)... Additional Source Comments (unrecognized sect ion and content) No Status Records FoundNo Status Records FoundNo Status Records Found INFORMATION SOURCE (unrecogn ized section and content) DATE CREATED AUTHOR 04/01/2018 [facility] DATE CREATED AUTHOR AUTHOR'S ORGANIZ ATION 04/14/2023 [facility] ([place]) DATE CREATED AUTHOR AUTHOR'S ORGANIZ ATION 10/15/2024 [facility] Patient Care team informatio n (unrecognized section and content) Care Team Personnel Name: KI LANZA JR, MD Member Role: Primary Care Physician Address: Address: [address] [place] [id number] Care Team Related Persons Name: URIEL SEGURA Address: Home [address] [place] [id number] US FOR RECORDS PERTAINING TO PATIENTS WHO [...] BE BASED ON THE PRIMARY CLINICAL RECORDS. [facility]. provides no warranty or guarantee of the accuracy or completeness of information in this document.
== END 2024-10-15 17:33 | disposition home or self-care (01) ==
PROVIDERS: Emergency Provider Emergency Medicine; PCP Family Medicine; Visit Provider Emergency Medicine
DX: R11.2 Nausea with vomiting, unspecified (principal); J44.9 Chronic obstructive pulmonary disease, unspecified; I10 Essential (primary) hypertension; K58.9 Irritable bowel syndrome, unspecified; Z87.891 Personal history of nicotine dependence; F41.9 Anxiety disorder, unspecified; Z85.828 Personal history of other malignant neoplasm of skin; K21.9 Gastro-esophageal reflux disease without esophagitis; Z79.899 Other long term (current) drug therapy
CPT/HCPCS: 96365; 96372; 96375; 99282; A4216; J2405

== ENCOUNTER 2024-11-06 23:36 | Emergency (ER) | payer MEDICARE, SELFPAY ==
[2024-11-06 23:38] VITALS: BP 138/69; PULSE 109; RESP 16; TEMP 37.3; O2SAT 92; BMI 37.9
[2024-11-07] VITALS: BP 137/84; PULSE 102; RESP 18; O2SAT 93
[2024-11-07] MEDS: 0.9% Normal Saline (500mL Bag) 500 ML 999 ML IV (01:12)
[2024-11-07] MEDS: DiphenhydrAMINE 50 MG/ML Syringe 25 MG IV (01:13)
[2024-11-07 02:00] VITALS: BP 162/71; PULSE 97; RESP 18; O2SAT 92
--- NOTE | 2024-11-07 03:41 | EX.ED.DYSGE1 ---
HPI History of Present Illness Chief Complaint: Nausea/Vomiting Informant: patient Narrative Narrative: Patient is a 74-year-old male with past medical history of hypertension and COPD. He has been seen in the past for bouts of nausea without vomiting. He states that this is a common reoccurrence for him and he states that there is no precipitating factors such as marijuana use or medication. He reports that when he gets the sensation that he needs to have bouts of emesis but cannot do so if he comes to the ER and gets medication and symptoms will improve within a few hours but if he does not they can last for days. He states that his sensation of nausea began a few hours ago and with concern he will need medication to help resolve the issue he presents for evaluation [facility] Medical History Strain of right psoas muscle Acute pain of right hip Fall Alcohol abuse Alcohol withdrawal Basal cell carcinoma of anterior chest Wears glasses Wears dentures Depression Anxiety Alcohol use Arthritis History of renal disease Back pain Injury of head and neck History of ulceration History of IBS History of diverticulitis Gastric reflux CPAP (continuous positive airway pressure) dependence Former smoker COPD (chronic obstructive pulmonary disease) Shortness of breath on exertion History of pain when walking History of edema History of stress test Encounter for screening for COVID-19 Chest wall contusion (~12/18/20) HTN (hypertension) Home Medications ?Medication ?Instructions ?Recorded ?Last Taken ?Type lisinopril 20 mg tablet 20 mg PO BID blood pressure 03/16/18 05/27/24 History pantoprazole 40 mg tablet,delayed 40 mg PO BID reflux 09/07/19 05/27/24 History release albuterol sulfate 2.5 mg/3 mL 2.5 mg inhalation Q6H PRN 05/18/23 Unknown History (0.083 %) solution for nebulization shortness of breath or wheezing fluvoxamine 100 mg tablet 100 mg PO QHS 05/18/23 05/27/24 History amlodipine 5 mg tablet 5 mg PO DAILY 05/24/23 05/27/24 History acetaminophen 325 mg tablet 650 mg (2 x 325 mg) PO Q4H PRN PRN 04/27/24 Unknown Rx Fever, pain 1-11/16 #0 tabs calcium carbonate 500 mg (2.5 x 200 mg calcium (500 04/27/24 Unknown Rx mg)) PO TIDCM PRN DYSPEPSIA/INDIGESTION #0 tabs lorazepam 0.5 mg tablet 0.5 mg PO Q6H PRN PRN Anxiety #8 04/27/24 05/27/24 Rx tabs sennosides 8.6 mg-docusate sodium 1 tab PO DAILY #1 TAB 04/27/24 Unknown Rx 50 mg tablet (Stimulant Laxative Plus) doxepin 10 mg capsule 10 - 20 mg PO QHS PRN PRN insomnia 05/28/24 05/27/24 History ondansetron 4 mg disintegrating 4 mg PO Q6H PRN nausea and 10/15/24 Unknown Rx tablet vomiting #20 tabs metoclopramide HCl 10 mg tablet 10 mg PO Q6H PRN PRN nausea and 11/09/24 Unknown History vomiting promethazine 25 mg tablet 25 mg PO TID PRN PRN nausea and 11/09/24 Unknown History vomiting tamsulosin 0.4 mg capsule 0.4 mg PO QHS 11/09/24 Unknown History Allergy/AdvReac Type Severity Reaction Status Date / Time amoxicillin Allergy doesnt Verified 11/09/24 04:43 rememeber fluoxetine (From Prozac) AdvReac Other Verified 11/09/24 04:43 Family History Mother Myocardial infarction Hypertension Father Cancer Hypertension Surgical History Hx of colonoscopy Hx of blepharoplasty Hx of esophagogastroduodenoscopy History of eye surgery Social History household members: none Smoking Status: Former smoker how long ago did patient quit smoking: quit 20 yr ago alcohol intake: current Alcohol type: hard liquor substance use type: does not use additional social history: personal hx of PEs ROS ROS ED Constitutional Constitutional ED: Denies chills or fever(s) Eyes Eyes: Denies change in vision ENT ENT ED: Denies sore throat Cardiovascular Cardiovascular: Denies chest pain Respiratory/Chest Respiratory/Chest: Denies cough or dyspnea Gastrointestinal Gastrointestinal: Reports nausea; Denies abdominal pain, diarrhea or vomiting Musculoskeletal Musculoskeletal: Denies back pain or myalgias Integumentary Denies rash Neurologic Neurologic: Denies headache(s) Hematologic/Lymphatic Hematologic/Lymphatic: Denies easy bleeding or easy bruising EXAM Physical Exam Const Vital Signs: 11/06/24 23:38 11/07/24 00:00 11/07/24 02:00 Temperature 99.2 F H Temperature Source Oral Pulse Rate 109 H 102 H 97 Respiratory Rate 16 18 18 Blood Pressure 138/69 H 137/84 H 162/71 H Blood Pressure Mean 92 101 101 Pulse Ox 92 93 92 Oxygen Delivery Method Room Air Room Air Room Air Positive well nourished, well developed and obese General Appearance ED: well developed; Negative for pallor Nutritional Appearance: obese HEENT HEENT Narrative: Normocephalic atraumatic No tongue or lip swelling no oral lesions no airway edema or compromise Mucous membranes are mildly dry and tacky No signs of infection noted in the posterior pharynx Eyes PERRL and EOMs intact bilaterally General Eye ED: Negative for scleral icterus Neck supple Resp normal respiratory effort Resp Narrative: Breath sounds are diminished throughout with faint rhonchi and expiratory wheeze consistent with history of COPD but no signs of respiratory distress Cardio regular rate and regular rhythm Rate: other Other Details: Radial and carotid pulses are equal and symmetric GI non-tender, non-distended and no masses GI Narrative: Abdomen is soft nontender nondistended with hyperactive bowel sounds. No voluntary guarding no rigidity or pulsatile mass. No peritoneal signs. No increased tympany Auscultation: hyperactive bowel sounds Palpation: soft Extremity normal to inspection Neuro oriented x3, CN's II-XII intact bilaterally and no sensory deficits noted Sensorium / Orientation: alert Motor Exam: strength 5/5 throughout Psych mental status grossly normal Skin no rashes or lesions noted Skin Narrative: Skin turgor is slightly increased General Skin Exam: Negative for jaundice or pallor MDM MDM MDM Narrative Medical decision making narrative: Patient presented to the ER with a soft nonsurgical abdomen. He reports he has had the symptoms recurrently for years. Chart review reveals he has been worked up multiple times for this with no obvious cause. Therefore at this time as his physical exam does not suggest obstruction or perforation and the fact symptoms only and present for a few hours I have low concern for acute kidney injury or electro abnormality I do not feel need for imaging or laboratory studies. The patient was given his reported cocktail of IV Zofran Benadryl and Ativan. Following receiving these medications he reported feeling better and had no bouts of vomiting. Therefore at this time with stable vitals and a persistently soft nonsurgical abdomen and resolution of symptoms I do not feel there is need for further intervention and he is otherwise safe for discharge History & Record Review Discussion w/independent historian: Patient Discharge Plan Triage Chief Complaint: Nausea/Vomiting ED Provider: Patrice Umaña Dx/Rx/DC Orders Clinical Impression: Cyclic vomiting syndrome, COPD (chronic obstructive pulmonary disease), Hypertension Instructions: ED Cyclic Vomiting Syndrome Prescriptions: No Action amlodipine 5 mg tablet 5 mg PO DAILY lisinopril 20 MG tablet 20 mg PO BID pantoprazole 40 MG tablet 40 mg PO BID ondansetron 4 mg tablet,disintegrating 4 mg PO Q6H PRN (Reason: nausea and vomiting) Qty: 20 0RF albuterol sulfate 2.5 mg /3 mL (0.083 %) solution for nebulization 2.5 mg inhalation Q6H PRN (Reason: shortness of breath or wheezing) fluvoxamine 100 mg tablet 100 mg PO QHS acetaminophen 325 mg Tablet 650 mg PO Q4H PRN PRN (Reason: Fever, pain 1-11/16) Qty: 0 0RF lorazepam 0.5 mg Tablet 0.5 mg PO Q6H PRN PRN (Reason: Anxiety) Qty: 8 0RF calcium carbonate 200 mg calcium (500 mg) Tablet,Chewable 500 mg PO TIDCM PRN (Reason: DYSPEPSIA/INDIGESTION) Qty: 0 0RF sennosides-docusate sodium [Stimulant Laxative Plus] 8.6-50 mg Tablet 1 tab PO DAILY Qty: 1 0RF doxepin 10 mg capsule 10 - 20 mg PO QHS PRN PRN (Reason: insomnia) metoclopramide HCl 10 mg tablet 10 mg PO Q6H PRN PRN (Reason: nausea and vomiting) promethazine 25 mg tablet 25 mg PO TID PRN PRN (Reason: nausea and vomiting) tamsulosin 0.4 mg capsule 0.4 mg PO QHS Primary Care Provider: Alfred Bailey Referrals: Alfred Bailey DO [Primary Care Provider, Family Practice] Print Language: Greek Disposition Disposition: Home, Self Care Discharge Date/Time: 11/07/24 04:09
[2024-11-07 03:45] VITALS: BP 139/78; PULSE 97; RESP 18; TEMP 36.6; O2SAT 94
== END 2024-11-07 04:09 | disposition home or self-care (01) ==
PROVIDERS: Emergency Provider Emergency Medicine; PCP Family Medicine; Visit Provider Emergency Medicine
DX: R11.15 Cyclical vomiting syndrome unrelated to migraine (principal); J44.9 Chronic obstructive pulmonary disease, unspecified; Z87.891 Personal history of nicotine dependence; I10 Essential (primary) hypertension; Z85.828 Personal history of other malignant neoplasm of skin; K21.9 Gastro-esophageal reflux disease without esophagitis; Z79.899 Other long term (current) drug therapy; F41.9 Anxiety disorder, unspecified
CPT/HCPCS: 96361; 96374; 96375; 99283; A4216; J2405

== ENCOUNTER 2024-11-09 04:42 | Emergency (ER) | payer MEDICARE, SELFPAY ==
[2024-11-09 04:43] VITALS: BP 161/81; PULSE 100; RESP 18; TEMP 36.8; O2SAT 97; BMI 38.4
[2024-11-09 05:09] LABS: Hematocrit 43.7 % (40-54); Hemoglobin 15.1 g/dL (13.0-16.5); Immature Granulocytes Count 0.040 X10^3/uL (0.0-0.0); Mean Corp Hgb Conc 34.6 g/dL (32-36); Mean Corpuscular Volume 90.9 fL (80-94); Mean Platelet Vol. 10.4 fl (6.2-12.0); NRBC Flagged by Analyzer 0 % (0-5); Platelet Count 276 K/mm3 (150-450); RBC Distribution Width CV 13.8 % (11.6-14.6); RBC Distribution Width SD 46.2 fl (35.1-43.9); Red Blood Count 4.81 M/mm3 (4.6-6.2); White Blood Count 7.5 K/mm3 (4.4-11.0)
[2024-11-09] MEDS: 0.9% Normal Saline (500mL Bag) 500 ML 999 ML IV (05:13)
[2024-11-09] MEDS: DiphenhydrAMINE 50 MG/ML Syringe 25 MG IV (05:13)
[2024-11-09 05:26] LABS: Lipase 38 U/L (13-75)
[2024-11-09 05:27] LABS: AST(SGOT) 26 U/L (<=37); Alanine Aminotransfer ALT/SGPT 19 U/L (<=46); Albumin, Serum 4.1 g/dL (3.4-4.8); Alkaline Phosphatase 81 U/L (40-129); Anion Gap 14 (5-15); BUN 9 mg/dL (4-19); BUN/Creat Ratio 11.4 RATIO (10-20); Bilirubin, Direct 0.14 mg/dL (0.00-0.30); Calcium,Total 9.2 mg/dL (7.6-11.0); Carbon Dioxide 23.9 mmol/L (21.0-32.0); Chloride 101 mmol/L (98-108); Estimated Creatinine Clearance 95.34 ml/min (50-250); Globulin 3.3 g/dL (2.2-4.2); Glucose 131 mg/dL (70-99); Potassium 4.0 mmol/L (3.3-5.1)
--- NOTE | 2024-11-09 05:38 | RAD_ITS ---
PROCEDURE: ACUTE ABDOMEN INC CHEST 11/09/2024 REASON FOR EXAM: ABD PAIN TECHNIQUE: Procedure Code: RADABDCA Modality: DX Procedure: ACUTE ABDOMEN INC CHEST COMPARISON: October 2023. FINDINGS: Chest: Hardware and support lines: None. Heart: Negative. Lungs: Negative for infiltrates, or pulmonary edema. Pleura: No pleural thickening. No pleural effusion. Mediastinum and aorta: Negative for hilar adenopathy. Mildly tortuous thoracic aorta. Bones: Likely old right-sided rib fractures age-appropriate degenerative changes of the spine. Other: Abdomen: Negative for subdiaphragmatic air. Negative for free intra-abdominal air. Degenerative changes in the hips. Mild increased stool throughout the colon. Negative for dilated loops of large or small bowel. Age-appropriate appearance of the hips and spine. Remainder of the exam negative. RAD/Acute Abdomen Inc Chest IMPRESSION: Negative for acute cardiopulmonary disease. Constipation. Reading Location: [id number]
--- OUTSIDE RECORDS SUMMARY | 2024-11-09 05:57 | XMS RPT_ITS | CCD ---
Author Organization [facility] ion Partnership [facility] CliniSyoh Care Team Providers Care Concrete Pipe Maker Name Role Phone POOL MISTRY, DR KI Nelson JR Primary Care Physician ABHAY MISTRY, DR WILLIE WHITE Attending Lawrence LANZA MD, DR KI Nelson JR Primary Care Unascott Bailey, Alfred Primary Care Unavailable Chino Jaimes Attending Unavailable Lynn, Alfred Primary Care Unavailable Vsihnu Doyle Attending Unavailable Vishnu Doyle Referring Unavailable Lynn, Alfred Referring Unavailable Lynn, Alfred Primary Care Unavailable LynnAlfred Attending Unavailable Lynn, Alfred Primary Care Unavailable Bogdan Grover Attending Unavailable Lynn, Alfred Primary Care Unavailable Vick Ruiz Attending Unavailable Lynn, Alfred Primary Care Unavailable Vick Ruiz Attending Unavailable LynnAlfred Attending Unavailable Lynn, Alfred Primary Care Unavailable Lynn, Alfred Primary Care Unavailable Alfred Grijalva Attending Unavailable David Cespedes Consulting Unavailable David Cespedes Admitting Unavailable [place] Rush Consulting Unavailable LynnAlfred Referring Unavailable LynnAlfred Attending Unavailable Lynn, Alfred Primary Care Unavailable Lynn, Alfred Primary Care Unavailable Michele Dennison Attending Unavailable Lynn, Alfred Primary Care Unavailable Brock Garcia Attending Unavailabl e Lynn, Alfred Primary Care Unavailable Mingo Haddad Attending Unavailable Lynn, Alfred Primary Care Unavailable Patrice Umaña Attending Unavailable Lynn, Alfred Primary Care Unavailable Omalley Guicho Attending Unavailable Lynn, Alfred Primary Care Unavailable Omalley Guicho Attending Unavailable Lynn, Alfred Primary Care Unavailable Brock Garcia Attending Unavaillio e Jose Manuelusty-Brock Felix Referring Unavailabl e Lynn, Alfred Primary Care Unavailable Annie Pyle Attending Unavailable Annie Pyle Referring Unavailable Lynn, Alfred Primary Care Unavailable Torey Multani Attending Unavailable Lynn, Alfred Referring Unavailable Lynn, Alfred Attending Unavailable Lynn, Alfred Primary Care Unavailable Lynn, Alfred Primary Care Unavailable Willie Blank Attending Unavailable Willie Blank Referring Unavailable Lynn, Alfred Primary Care Unavailable Romina Ballard Attending Unavailable Lynn, Alfred Primary Care Unavailable Valentine, Alfred Attending Unavailable David Cespedes Admitting Unavailable David Cespedes Consulting Unavailable [place] Rush Consulting Unavailable Alfred Grijalva Consulting Unavailable Lynn, Alfred Primary Care Unavailable Romina Ballard Attending Unavailable Romina Ballard Referring Unavailable David Cespedes Attending Unavailable Lynn, Alfred Referring Unavailable Lynn, Alfred Primary Care Unavailable Bandar BACK HOE MACHINE OPERATOR, Camila Lyn Attending Unavaillio e Lynn, Alfred Primary Care Unavailable Vishnu Doyle Attending Unavailable Vishnu Doyle Referring Unavailable Lynn, Alfred Referring Unavailable Lynn, Alfred Primary Care Unavailable Vishnu Doyle Attending Unavailable Lynn, Alfred Primary Care Unavailable Milena Smith Attending Unavailable Lynn, Alfred Referring Unavailable Lynn, Alfred Primary Care Unavailable Milena Smith Attending Unavailable Lynn, Alfred Referring Unavailable Boston Rush Attending Unavailable Valentine, Alfred Referring Unavailable Allergies Allergy Classification Reported Allergen(s) Allergy Type Date of Onset Reaction(s) Facility (1 source) Amoxicillin; Translations: [amoxicillin] Drug Allergy [facility] (1 source) Amoxicillin Drug Allergy 10-15-2024 [facility] (1 source) FLUoxetine Drug Allergy 10-15-2024 [facility] Medications Current Medications [...] Hypertensive disorder 08-28-2013 Chronic Nausea and vomiting (2 sources) Nausea; Translations: [Nausea with vomiting, unspecified] Onset: 5 08-28-2013 Episodic Other gastrointestinal disorders (1 source) [...] Translations: [Hypo-osmolality and hyponatremia] Onset: 06-25-2024 Episodic Other bone disease and musculoskeletal deformities [...] Range Facil ity Emergency Department Summary on 10-15-2024 Emergency Department Summary Normal [facility] Abdomen/Pelvis W IV Cont ONL Yon 10-13-2024 Abdomen/Pelvis W IV Cont ONLY Normal [facility] CBC W/Diff, Automatedon Absolute Lymph 1.85 X10 3/uL Normal 0.83-4.51 [facility] Comment on above: Performed By: #### L 500.4050, L501.2450, L100.0100 ####[facility] [address] [place], [address] Absolute Neut 6.9 X10 3/uL Normal 2.0-7.7 [facility] Comment on above: Performed By: #### L 500.4050, L501.2450, L100.0100 ####[facility] [address] [place], [address] Basophils/100 WBC (Bld) 0.4 % Normal 0-1 [facility] Comment on above: Performed By: #### L 500.4050, L501.2450, L100.0100 ####[facility] [address] [place], [address] Eosinophils/100 WBC (Bld) 1.3 % Normal 0-5 [facility] Comment on above: Performed By: #### L 500.4050, L501.2450, L100.0100 ####[facility] [address] [place], [address] Erythrocyte distribution width (RBC) [Ratio] 14.0 % Normal 11.6-14.6 [facility] Comment on above: Performed By: #### L 500.4050, L501.2450, L100.0100 ####[facility] [address] [place], [address] Hematocrit (Bld) [Volume fraction] 47.5 % Normal 40-54 [facility] Comment on above: Performed By: #### L 500.4050, L501.2450, L100.0100 ####[facility] [address] [place], [address] Hemoglobin (Bld) [Mass/Vol] 16.4 g/dL Normal 13.0-16.5 [facility] Comment on above: Performed By: #### L 500.4050, L501.2450, L100.0100 ####[facility] [address] [place], [address] IG% 0.200 Normal 0.0-0.9 [facility] Comment on above: Result Comment: IG% - Immature Granulocytes (promyelocytes, myelocytes andmetamyelocytes) > 1% indicates that a LEFT SHIFT is Present. Performed By: #### L 500.4050, L501.2450, L100.0100 ####[facility] [address] [place], [address] Lymphocytes/100 WBC (Bld) 19.1 % Normal 19-41 [facility] Comment on above: Performed By: #### L 500.4050, L501.2450, L100.0100 ####[facility] [address] [place], [address] MCH (RBC) [Entitic mass] 31.5 pg Normal 27.0-32.0 [facility] Comment on above: Performed By: #### L 500.4050, L501.2450, L100.0100 ####[facility] [address] [place], [address] MCHC (RBC) [Mass/Vol] 34.5 g/dL Normal 32-36 [facility] Comment on above: Performed By: #### L 500.4050, L501.2450, L100.0100 ####[facility] [address] [place], [address] MCV (RBC) [Entitic vol] 91.2 fL Normal 80-94 [facility] Comment on above: Performed By: #### L 500.4050, L501.2450, L100.0100 ####[facility] [address] [place], [address] Monocytes/100 WBC (Bld) 7.2 % Normal 0-10 [facility] Comment on above: Performed By: #### L 500.4050, L501.2450, L100.0100 ####[facility] [address] [place], [address] Neutrophils/100 WBC (Bld) 71.8 % High 47-70 [facility] Comment on above: Performed By: #### L 500.4050, L501.2450, L100.0100 ####[facility] [address] [place], [address] Nucleated RBC (Bld) [#/Vol] 0 10*3/uL Normal 0-5 [facility] Comment on above: Performed By: #### L 500.4050, L501.2450, L100.0100 ####[facility] [address] [place], [address] Platelet mean volume (Bld) [Entitic vol] 10.3 fL Normal 6.2-12.0 [facility] Comment on above: Performed By: #### L 500.4050, L501.2450, L100.0100 ####[facility] [address] [place], [address] Platelets (Bld) [#/Vol] 261 10*3/uL Normal 150-450 [facility] Comment on above: Performed By: #### L 500.4050, L501.2450, L100.0100 ####[facility] [address] [place], [address] RBC (Bld) [#/Vol] 5.21 10*6/uL Normal 4.6-6.2 [facility] Comment on above: Performed By: #### L 500.4050, L501.2450, L100.0100 ####[facility] [address] [place], [address] RDW SD 47.1 fl High 35.1-43.9 [facility] Comment on above: Performed By: #### L 500.4050, L501.2450, L100.0100 ####[facility] [address] [place], [address] WBC (Bld) [#/Vol] 9.7 10*3/uL Normal 4.4-11.0 [facility] Comment on above: Performed By: #### L 500.4050, L501.2450, L100.0100 ####[facility] [address] [place], [address] Absolute Lymph 1.55 X10 3/uL Normal 0.83-4.51 [facility] Comment on above: Performed By: #### L 500.4050, L501.2450, L100.0100 ####[facility] [address] [place], [address] Absolute Neut 6.2 X10 3/uL Normal 2.0-7.7 [facility] Comment on above: Performed By: #### L 500.4050, L501.2450, L100.0100 ####[facility] [address] [place], [address] Basophils/100 WBC (Bld) 0.4 % Normal 0-1 [facility] Comment on above: Performed By: #### L 500.4050, L501.2450, L100.0100 ####[facility] [address] [place], [address] Eosinophils/100 WBC (Bld) 0.8 % Normal 0-5 [facility] Comment on above: Performed By: #### L 500.4050, L501.2450, L100.0100 ####[facility] [address] [place], [address] Erythrocyte distribution width (RBC) [Ratio] 13.8 % Normal 11.6-14.6 [facility] Comment on above: Performed By: #### L 500.4050, L501.2450, L100.0100 ####[facility] [address] [place], [address] Hematocrit (Bld) [Volume fraction] 44.2 % Normal 40-54 [facility] Comment on above: Performed By: #### L 500.4050, L501.2450, L100.0100 ####[facility] [address] [place], [address] Hemoglobin (Bld) [Mass/Vol] 15.5 g/dL Normal 13.0-16.5 [facility] Comment on above: Performed By: #### L 500.4050, L501.2450, L100.0100 ####[facility] [address] [place], [address] IG% 0.200 Normal 0.0-0.9 [facility] Comment on above: Result Comment: IG% - Immature Granulocytes (promyelocytes, myelocytes andmetamyelocytes) > 1% indicates that a LEFT SHIFT is Present. Performed By: #### L 500.4050, L501.2450, L100.0100 ####[facility] [address] [place], [address] Lymphocytes/100 WBC (Bld) 18.1 % Low 19-41 [facility] Comment on above: Performed By: #### L 500.4050, L501.2450, L100.0100 ####[facility] [address] [place], [address] MCH (RBC) [Entitic mass] 31.7 pg Normal 27.0-32.0 [facility] Comment on above: Performed By: #### L 500.4050, L501.2450, L100.0100 ####[facility] [address] [place], [address] MCHC (RBC) [Mass/Vol] 35.1 g/dL Normal 32-36 [facility] Comment on above: Performed By: #### L 500.4050, L501.2450, L100.0100 ####[facility] [address] [place], [address] MCV (RBC) [Entitic vol] 90.4 fL Normal 80-94 [facility] Comment on above: Performed By: #### L 500.4050, L501.2450, L100.0100 ####[facility] [address] [place], [address] Monocytes/100 WBC (Bld) 8.3 % Normal 0-10 [facility] Comment on above: Performed By: #### L 500.4050, L501.2450, L100.0100 ####[facility] [address] [place], [address] Neutrophils/100 WBC (Bld) 72.2 % High 47-70 [facility] Comment on above: Performed By: #### L 500.4050, L501.2450, L100.0100 ####[facility] [address] [place], [address] Nucleated RBC (Bld) [#/Vol] 0 10*3/uL Normal 0-5 [facility] Comment on above: Performed By: #### L 500.4050, L501.2450, L100.0100 ####[facility] [address] [place], [address] Platelet mean volume (Bld) [Entitic vol] 9.7 fL Normal 6.2-12.0 [facility] Comment on above: Performed By: #### L 500.4050, L501.2450, L100.0100 ####[facility] [address] [place], [address] Platelets (Bld) [#/Vol] 226 10*3/uL Normal 150-450 [facility] Comment on above: Performed By: #### L 500.4050, L501.2450, L100.0100 ####[facility] [address] [place], [address] RBC (Bld) [#/Vol] 4.89 10*6/uL Normal 4.6-6.2 [facility] Comment on above: Performed By: #### L 500.4050, L501.2450, L100.0100 ####[facility] [address] [place], [address] RDW SD 45.7 fl High 35.1-43.9 [facility] Comment on above: Performed By: #### L 500.4050, L501.2450, L100.0100 ####[facility] [address] [place], [address] WBC (Bld) [#/Vol] 8.6 10*3/uL Normal 4.4-11.0 [facility] Comment on above: Performed By: #### L 500.4050, L501.2450, L100.0100 ####[facility] [address] [place], [address] Comprehensive Metabolic Prof [facility] 10-13-2024 Albumin [Mass/Vol] 4.2 g/dL Normal 3.4-4.8 [facility] Comment on above: Performed By: #### L 500.4050, L501.2450, L100.0100 ####[facility] [address] [place], [address] Albumin/Globulin [Mass ratio] 1.2 {ratio} Normal 0.9-2.4 [facility] Comment on above: Performed By: #### L 500.4050, L501.2450, L100.0100 ####[facility] [address] [place], [address] ALK PHOS 91 U/L Normal 40-129 [facility] Comment on above: Performed By: #### L 500.4050, L501.2450, L100.0100 ####[facility] [address] [place], [address] ALT [Catalytic activity/Vol] 12 U/L Normal <=46 [facility] Comment on above: Performed By: #### L 500.4050, L501.2450, L100.0100 ####[facility] [address] [place], [address] AST [Catalytic activity/Vol] 30 U/L Normal <=37 [facility] Comment on above: Result Comment: Hemo lysis present, Results??could be affected.?? Performed By: #### L 500.4050, L501.2450, L100.0100 ####[facility] [address] [place], [address] Bilirubin [Mass/Vol] 0.64 mg/dL Normal 0.00-1.30 [facility] Comment on above: Performed By: #### L 500.4050, L501.2450, L100.0100 ####[facility] [address] [place], [address] BUN/CRE 8.5 RATIO Low 10-20 [facility] Comment on above: Performed By: #### L 500.4050, L501.2450, L100.0100 ####[facility] [address] [place], [address] Calcium [Mass/Vol] 10.2 mg/dL Normal 7.6-11.0 [facility] Comment on above: Performed By: #### L 500.4050, L501.2450, L100.0100 ####[facility] [address] [place], [address] Chloride [Moles/Vol] 95 mmol/L Low 98-108 [facility] Comment on above: Performed By: #### L 500.4050, L501.2450, L100.0100 ####[facility] [address] [place], [address] CO2 [Moles/Vol] 25.9 mmol/L Normal 21.0-32.0 [facility] Comment on above: Performed By: #### L 500.4050, L501.2450, L100.0100 ####[facility] [address] [place], [address] Creatinine [Mass/Vol] 0.76 mg/dL Normal 0.70-1.20 [facility] Comment on above: Performed By: #### L 500.4050, L501.2450, L100.0100 ####[facility] [address] [place], [address] ECRCL 94.79 ml/min Normal 50-250 [facility] Comment on above: Performed By: #### L 500.4050, L501.2450, L100.0100 ####[facility] [address] [place], [address] GAP 15 Normal 5-15 [facility] Comment on above: Performed By: #### L 500.4050, L501.2450, L100.0100 ####[facility] [address] [place], [address] GFR/1.73 sq M.predicted among non-blacks MDRD (S/P/Bld) [Vol rate/Area] 93 mL/min/{1.73_m2} Normal >60 [facility] Comment on above: Result Comment: mL/m in/1.73m2 CKD-EPI Creatinine Equation (2020) Performed By: #### L 500.4050, L501.2450, L100.0100 ####[facility] [address] [place], [address] Globulin (S) [Mass/Vol] 3.7 g/dL Normal 2.2-4.2 [facility] Comment on above: Performed By: #### L 500.4050, L501.2450, L100.0100 ####[facility] [address] [place], [address] Glucose [Mass/Vol] 118 mg/dL High 70-99 [facility] Comment on above: Performed By: #### L 500.4050, L501.2450, L100.0100 ####[facility] [address] [place], [address] Potassium [Moles/Vol] 3.5 mmol/L Normal 3.3-5.1 [facility] Comment on above: Result Comment: Hemo lysis present, Results??could be affected.?? Performed By: #### L 500.4050, L501.2450, L100.0100 ####[facility] [address] [place], [address] Sodium [Moles/Vol] 136 mmol/L Normal 133-145 [facility] Comment on above: Performed By: #### L 500.4050, L501.2450, L100.0100 ####[facility] [address] [place], [address] T PROT 7.9 g/dL Normal 5.9-8.4 [facility] Comment on above: Performed By: #### L 500.4050, L501.2450, L100.0100 ####[facility] [address] [place], [address] Urea nitrogen [Mass/Vol] 6 mg/dL Normal 4-19 [facility] Comment on above: Performed By: #### L 500.4050, L501.2450, L100.0100 ####[facility] [address] [place], [address] Albumin [Mass/Vol] 3.9 g/dL Normal 3.4-4.8 [facility] Comment on above: Performed By: #### L 500.4050, L501.2450, L100.0100 ####[facility] [address] [place], [address] Albumin/Globulin [Mass ratio] 1.1 {ratio} Normal 0.9-2.4 [facility] Comment on above: Performed By: #### L 500.4050, L501.2450, L100.0100 ####[facility] [address] [place], [address] ALK PHOS 87 U/L Normal 40-129 [facility] Comment on above: Performed By: #### L 500.4050, L501.2450, L100.0100 ####[facility] [address] [place], [address] ALT [Catalytic activity/Vol] 12 U/L Normal <=46 [facility] Comment on above: Performed By: #### L 500.4050, L501.2450, L100.0100 ####[facility] [address] [place], [address] AST [Catalytic activity/Vol] 22 U/L Normal <=37 [facility] Comment on above: Performed By: #### L 500.4050, L501.2450, L100.0100 ####[facility] [address] [place], [address] Bilirubin [Mass/Vol] 0.64 mg/dL Normal 0.00-1.30 [facility] Comment on above: Performed By: #### L 500.4050, L501.2450, L100.0100 ####[facility] [address] [place], [address] BUN/CRE 9.8 RATIO Low 10-20 [facility] Comment on above: Performed By: #### L 500.4050, L501.2450, L100.0100 ####[facility] [address] [place], [address] Calcium [Mass/Vol] 10.4 mg/dL Normal 7.6-11.0 [facility] Comment on above: Performed By: #### L 500.4050, L501.2450, L100.0100 ####[facility] [address] [place], [address] Chloride [Moles/Vol] 95 mmol/L Low 98-108 [facility] Comment on above: Performed By: #### L 500.4050, L501.2450, L100.0100 ####[facility] [address] [place], [address] CO2 [Moles/Vol] 25.5 mmol/L Normal 21.0-32.0 [facility] Comment on above: Performed By: #### L 500.4050, L501.2450, L100.0100 ####[facility] [address] [place], [address] Creatinine [Mass/Vol] 0.72 mg/dL Normal 0.70-1.20 [facility] Comment on above: Performed By: #### L 500.4050, L501.2450, L100.0100 ####[facility] [address] [place], [address] ECRCL 97.38 ml/min Normal 50-250 [facility] Comment on above: Performed By: #### L 500.4050, L501.2450, L100.0100 ####[facility] [address] [place], [address] GAP 15 Normal 5-15 [facility] Comment on above: Performed By: #### L 500.4050, L501.2450, L100.0100 ####[facility] [address] [place], [address] GFR/1.73 sq M.predicted among non-blacks MDRD (S/P/Bld) [Vol rate/Area] 95 mL/min/{1.73_m2} Normal >60 [facility] Comment on above: Result Comment: mL/m in/1.73m2 CKD-EPI Creatinine Equation (2020) Performed By: #### L 500.4050, L501.2450, L100.0100 ####[facility] [address] [place], [address] Globulin (S) [Mass/Vol] 3.5 g/dL Normal 2.2-4.2 [facility] Comment on above: Performed By: #### L 500.4050, L501.2450, L100.0100 ####[facility] [address] [place], [address] Glucose [Mass/Vol] 144 mg/dL High 70-99 [facility] Comment on above: Performed By: #### L 500.4050, L501.2450, L100.0100 ####[facility] [address] [place], [address] Potassium [Moles/Vol] 3.1 mmol/L Low 3.3-5.1 [facility] Comment on above: Performed By: #### L 500.4050, L501.2450, L100.0100 ####[facility] [address] [place], [address] Sodium [Moles/Vol] 136 mmol/L Normal 133-145 [facility] Comment on above: Performed By: #### L 500.4050, L501.2450, L100.0100 ####[facility] [address] [place], [address] T PROT 7.5 g/dL Normal 5.9-8.4 [facility] Comment on above: Performed By: #### L 500.4050, L501.2450, L100.0100 ####[facility] [address] [place], [address] Urea nitrogen [Mass/Vol] 7 mg/dL Normal 4-19 [facility] Comment on above: Performed By: #### L 500.4050, L501.2450, L100.0100 ####[facility] [address] [place], [address] Emergency Department Summary on 10-13-2024 Emergency Department Summary Normal [facility] Emergency Department Summary Normal [facility] Lipaseon 10-13-2024 Lipase [Catalytic activity/Vol] 36 U/L Normal 13-75 [facility] Comment on above: Result Comment: Nagi nelson note:LIPASE revised reference range effective 22.New Lipase methodology. Expected to produce lower valuesthan the previous assay method.NEW Reference Range: 13 - 75 U/L Performed By: #### L 500.4050, L501.2450, L100.0100 ####[facility] [address] [place], [address] Lipase [Catalytic activity/Vol] 33 U/L Normal 13-75 [facility] Comment on above: Result Comment: Nagi nelson note:LIPASE revised reference range effective 22.New Lipase methodology. Expected to produce lower valuesthan the previous assay method.NEW Reference Range: 13 - 75 U/L Performed By: #### L 500.4050, L501.2450, L100.0100 ####[facility] [address] [place], [address] Urinalysis, Completeon 10-13 BACTERIA 1+ /hpf Normal None Seen [facility] Comment on above: Order Comment: CLEAN CATCH Performed By: #### L 400.0001 ####[facility] [address] [place], [address] EPI,SQUAMOUS 0-5 SEEN Normal 0-5 [facility] Comment on above: Order Comment: CLEAN CATCH Performed By: #### L 400.0001 ####[facility] [address] [place], [address] WBC 0-5 SEEN Normal 0-5 [facility] Comment on above: Order Comment: CLEAN CATCH Performed By: #### L 400.0001 ####[facility] [address] [place], [address] Mucus Ql (Urine sed) 0 SEEN Normal [facility] Comment on above: Order Comment: CLEAN CATCH Performed By: #### L 400.0001 ####[facility] [address] [place], [address] RBC 0 SEEN Normal 0-5 [facility] Comment on above: Order Comment: CLEAN CATCH Performed By: #### L 400.0001 ####[facility] [address] [place], [address] CBC W/Diff, Automatedon 2 Absolute Neut Normal 2.0-7.7 [facility] Comment on above: Result Comment: Canc elled via OM: MD Ordered Performed By: #### L 100.0100 ####[facility] [address] [place], [address] HCT Normal 40-54 [facility] Comment on above: Result Comment: Canc elled via OM: MD Ordered Performed By: #### L 100.0100 ####[facility] [facility] [address] [place], [address] HGB Normal 13.0-16.5 [facility] Comment on above: Result Comment: Canc elled via OM: MD Ordered Performed By: #### L 100.0100 ####[facility] [address] [place], [address] MCH Normal 27.0-32.0 [facility] Comment on above: Result Comment: Canc elled via OM: MD Ordered Performed By: #### L 100.0100 ####[facility] [address] [place], [address] MCHC Normal 32-36 [facility] Comment on above: Result Comment: Canc elled via OM: MD Ordered Performed By: #### L 100.0100 ####[facility] [address] [place], [address] MCV Normal 80-94 [facility] Comment on above: Result Comment: Canc elled via OM: MD Ordered Performed By: #### L 100.0100 ####[facility] [address] [place], [address] NEUT% Normal 47-70 [facility] Comment on above: Result Comment: Canc elled via OM: MD Ordered Performed By: #### L 100.0100 ####[facility] [address] [place], [address] PLT Normal 150-450 [facility] Comment on above: Result Comment: Canc elled via OM: MD Ordered Performed By: #### L 100.0100 ####[facility] [address] [place], [address] RBC Normal 4.6-6.2 [facility] Comment on above: Result Comment: Canc elled via OM: MD Ordered Performed By: #### L 100.0100 ####[facility] [address] [place], [address] RDW CV Normal 11.6-14.6 [facility] Comment on above: Result Comment: Canc elled via OM: MD Ordered Performed By: #### L 100.0100 ####[facility] [address] [place], [address] RDW SD Normal 35.1-43.9 [facility] Comment on above: Result Comment: Canc elled via OM: MD Ordered Performed By: #### L 100.0100 ####[facility] [address] [place], [address] WBC Normal 4.4-11.0 [facility] Comment on above: Result Comment: Canc elled via OM: MD Ordered Performed By: #### L 100.0100 ####[facility] [address] [place], [address] Emergency Department Summary on 10-01-2024 Emergency Department Summary Normal [facility] Emergency Department Summary on 07-25-2024 Emergency Department Summary Normal [facility] 12 Lead EKGon 07-14-2024 12 Lead EKG Normal [facility] CBC W/Diff, Automatedon -0 Absolute Lymph 0.84 X10 3/uL Normal 0.83-4.51 [facility] Comment on above: Performed By: #### L 500.4050, L100.0100 ####[facility] [address] [place], [address] Absolute Neut 8.0 X10 3/uL High 2.0-7.7 [facility] Comment on above: Performed By: #### L 500.4050, L100.0100 ####[facility] [address] [place], [address] Basophils/100 WBC (Bld) 0.4 % Normal 0-1 [facility] Comment on above: Performed By: #### L 500.4050, L100.0100 ####[facility] [address] [place], [address] Eosinophils/100 WBC (Bld) 0.1 % Normal 0-5 [facility] Comment on above: Performed By: #### L 500.4050, L100.0100 ####[facility] [address] [place], [address] Erythrocyte distribution width (RBC) [Ratio] 12.9 % Normal 11.6-14.6 [facility] Comment on above: Performed By: #### L 500.4050, L100.0100 ####[facility] [address] [place], [address] Hematocrit (Bld) [Volume fraction] 37.2 % Low 40-54 [facility] Comment on above: Performed By: #### L 500.4050, L100.0100 ####[facility] [address] [place], [address] Hemoglobin (Bld) [Mass/Vol] 13.2 g/dL Normal 13.0-16.5 [facility] Comment on above: Performed By: #### L 500.4050, L100.0100 ####[facility] [address] [place], [address] IG% 0.400 Normal 0.0-0.9 [facility] Comment on above: Result Comment: IG% - Immature Granulocytes (promyelocytes, myelocytes andmetamyelocytes) > 1% indicates that a LEFT SHIFT is Present. Performed By: #### L 500.4050, L100.0100 ####[facility] [address] [place], [address] Lymphocytes/100 WBC (Bld) 8.9 % Low 19-41 [facility] Comment on above: Performed By: #### L 500.4050, L100.0100 ####[facility] [address] [place], [address] MCH (RBC) [Entitic mass] 32.0 pg Normal 27.0-32.0 [facility] Comment on above: Performed By: #### L 500.4050, L100.0100 ####[facility] [address] [place], [address] MCHC (RBC) [Mass/Vol] 35.5 g/dL Normal 32-36 [facility] Comment on above: Performed By: #### L 500.4050, L100.0100 ####[facility] [address] [place], [address] MCV (RBC) [Entitic vol] 90.3 fL Normal 80-94 [facility] Comment on above: Performed By: #### L 500.4050, L100.0100 ####[facility] [address] [place], [address] Monocytes/100 WBC (Bld) 5.2 % Normal 0-10 [facility] Comment on above: Performed By: #### L 500.4050, L100.0100 ####[facility] [address] [place], [address] Neutrophils/100 WBC (Bld) 85.0 % High 47-70 [facility] Comment on above: Performed By: #### L 500.4050, L100.0100 ####[facility] [address] [place], [address] Nucleated RBC (Bld) [#/Vol] 0 10*3/uL Normal 0-5 [facility] Comment on above: Performed By: #### L 500.4050, L100.0100 ####[facility] [address] [place], [address] Platelet mean volume (Bld) [Entitic vol] 9.9 fL Normal 6.2-12.0 [facility] Comment on above: Performed By: #### L 500.4050, L100.0100 ####[facility] [address] [place], [address] Platelets (Bld) [#/Vol] 221 10*3/uL Normal 150-450 [facility] Comment on above: Performed By: #### L 500.4050, L100.0100 ####[facility] [address] [place], [address] RBC (Bld) [#/Vol] 4.12 10*6/uL Low 4.6-6.2 [facility] Comment on above: Performed By: #### L 500.4050, L100.0100 ####[facility] [address] [place], [address] RDW SD 42.5 fl Normal 35.1-43.9 [facility] Comment on above: Performed By: #### L 500.4050, L100.0100 ####[facility] [address] [place], [address] WBC (Bld) [#/Vol] 9.5 10*3/uL Normal 4.4-11.0 [facility] Comment on above: Performed By: #### L 500.4050, L100.0100 ####[facility] [address] [place], [address] Comprehensive Metabolic Prof ilon 07-14-2024 Albumin [Mass/Vol] 3.8 g/dL Normal 3.4-4.8 [facility] Comment on above: Performed By: #### L 500.4050, L100.0100 ####[facility] [address] [place], [address] Albumin/Globulin [Mass ratio] 1.2 {ratio} Normal 0.9-2.4 [facility] Comment on above: Performed By: #### L 500.4050, L100.0100 ####[facility] [address] [place], [address] ALK PHOS 89 U/L Normal 40-129 [facility] Comment on above: Performed By: #### L 500.4050, L100.0100 ####[facility] [address] [place], [address] ALT [Catalytic activity/Vol] 14 U/L Normal <=46 [facility] Comment on above: Performed By: #### L 500.4050, L100.0100 ####[facility] [address] [place], [address] AST [Catalytic activity/Vol] 26 U/L Normal <=37 [facility] Comment on above: Result Comment: Hemo lysis present, Results??could be affected.?? Performed By: #### L 500.4050, L100.0100 ####[facility] [address] [place], [address] Bilirubin [Mass/Vol] 0.41 mg/dL Normal 0.00-1.30 [facility] Comment on above: Performed By: #### L 500.4050, L100.0100 ####[facility] [address] [place], [address] BUN/CRE 14.0 RATIO Normal 10-20 [facility] Comment on above: Performed By: #### L 500.4050, L100.0100 ####[facility] [address] [place], [address] Calcium [Mass/Vol] 8.9 mg/dL Normal 7.6-11.0 [facility] Comment on above: Performed By: #### L 500.4050, L100.0100 ####[facility] [address] [place], [address] Chloride [Moles/Vol] 101 mmol/L Normal 98-108 [facility] Comment on above: Performed By: #### L 500.4050, L100.0100 ####[facility] [address] [place], [address] CO2 [Moles/Vol] 27.0 mmol/L Normal 21.0-32.0 [facility] Comment on above: Performed By: #### L 500.4050, L100.0100 ####[facility] [address] [place], [address] Creatinine [Mass/Vol] 0.74 mg/dL Normal 0.70-1.20 [facility] Comment on above: Performed By: #### L 500.4050, L100.0100 ####[facility] [address] [place], [address] GAP 12 Normal 5-15 [facility] Comment on above: Performed By: #### L 500.4050, L100.0100 ####[facility] [address] [place], [address] GFR/1.73 sq M.predicted among non-blacks MDRD (S/P/Bld) [Vol rate/Area] 94 mL/min/{1.73_m2} Normal >60 [facility] Comment on above: Result Comment: mL/m in/1.73m2 CKD-EPI Creatinine Equation (2020) Performed By: #### L 500.4050, L100.0100 ####[facility] [address] [place], [address] Globulin (S) [Mass/Vol] 3.1 g/dL Normal 2.2-4.2 [facility] Comment on above: Performed By: #### L 500.4050, L100.0100 ####[facility] [address] [place], [address] Glucose [Mass/Vol] 125 mg/dL High 70-99 [facility] Comment on above: Performed By: #### L 500.4050, L100.0100 ####[facility] [address] [place], [address] Potassium [Moles/Vol] 4.0 mmol/L Normal 3.3-5.1 [facility] Comment on above: Result Comment: Hemo lysis present, Results??could be affected.?? Performed By: #### L 500.4050, L100.0100 ####[facility] [address] [place], [address] Sodium [Moles/Vol] 140 mmol/L Normal 133-145 [facility] Comment on above: Performed By: #### L 500.4050, L100.0100 ####[facility] [address] [place], [address] T PROT 6.9 g/dL Normal 5.9-8.4 [facility] Comment on above: Performed By: #### L 500.4050, L100.0100 ####[facility] [address] [place], [address] Urea nitrogen [Mass/Vol] 10 mg/dL Normal 4-19 [facility] Comment on above: Performed By: #### L 500.4050, L100.0100 ####[facility] [address] [place], [address] Emergency Department Summary on 07-14-2024 Emergency Department Summary Normal [facility] Lactic Acidon 07-14-2024 Lactate [Moles/Vol] 1.4 mmol/L Normal 0.0-2.0 [facility] Comment on above: Order Comment: Y Performed By: #### L 503.6005 ####[facility] [address] [place], [address] Chiropractic Reporton 2024 Chiropractic Report Normal [facility] Chiropractic Reporton 2024 Chiropractic Report Normal [facility] Basic Metabolic Profile (BMP )on 06-21-2024 BUN/CRE 15.6 RATIO Normal 10-20 [facility] Comment on above: Performed By: #### L 500.2500 ####[facility] [address] [place], [address] Calcium [Mass/Vol] 9.8 mg/dL Normal 7.6-11.0 [facility] Comment on above: Performed By: #### L 500.2500 ####[facility] [address] [place], [address] Chloride [Moles/Vol] 101 mmol/L Normal 98-108 [facility] Comment on above: Performed By: #### L 500.2500 ####[facility] [address] [place], [address] CO2 [Moles/Vol] 23.2 mmol/L Normal 21.0-32.0 [facility] Comment on above: Performed By: #### L 500.2500 ####[facility] [address] [place], [address] Creatinine [Mass/Vol] 0.90 mg/dL Normal 0.70-1.20 [facility] Comment on above: Performed By: #### L 500.2500 ####[facility] [address] [place], [address] GAP 13 Normal 5-15 [facility] Comment on above: Performed By: #### L 500.2500 ####[facility] [address] [place], [address] GFR/1.73 sq M.predicted among non-blacks MDRD (S/P/Bld) [Vol rate/Area] 88 mL/min/{1.73_m2} Normal >60 [facility] Comment on above: Result Comment: mL/m in/1.73m2 CKD-EPI Creatinine Equation (2020) Performed By: #### L 500.2500 ####[facility] [address] [place], [address] Glucose [Mass/Vol] 102 mg/dL High 70-99 [facility] Comment on above: Performed By: #### L 500.2500 ####[facility] [address] [place], [address] Potassium [Moles/Vol] 3.9 mmol/L Normal 3.3-5.1 [facility] Comment on above: Performed By: #### L 500.2500 ####[facility] [address] [place], [address] Sodium [Moles/Vol] 137 mmol/L Normal 133-145 [facility] Comment on above: Performed By: #### L 500.2500 ####[facility] [address] [place], [address] Urea nitrogen [Mass/Vol] 14 mg/dL Normal 4-19 [facility] Comment on above: Performed By: #### L 500.2500 ####[facility] [address] [place], [address] Basic Metabolic Profile (BMP )on 06-07-2024 BUN/CRE 17.6 RATIO Normal 10-20 [facility] Comment on above: Performed By: #### L 500.2500 ####[facility] [address] [place], [address] Calcium [Mass/Vol] 8.9 mg/dL Normal 7.6-11.0 [facility] Comment on above: Performed By: #### L 500.2500 ####[facility] [address] [place], [address] Chloride [Moles/Vol] 93 mmol/L Low 98-108 [facility] Comment on above: Performed By: #### L 500.2500 ####[facility] [address] [place], [address] CO2 [Moles/Vol] 21.2 mmol/L Normal 21.0-32.0 [facility] Comment on above: Performed By: #### L 500.2500 ####[facility] [address] [place], [address] Creatinine [Mass/Vol] 0.63 mg/dL Low 0.70-1.20 [facility] Comment on above: Performed By: #### L 500.2500 ####[facility] [address] [place], [address] ECRCL 95.23 ml/min Normal 50-250 [facility] Comment on above: Performed By: #### L 500.2500 ####[facility] [address] [place], [address] GAP 13 Normal 5-15 [facility] Comment on above: Performed By: #### L 500.2500 ####[facility] [address] [place], [address] GFR/1.73 sq M.predicted among non-blacks MDRD (S/P/Bld) [Vol rate/Area] 99 mL/min/{1.73_m2} Normal >60 [facility] Comment on above: Result Comment: mL/m in/1.73m2 CKD-EPI Creatinine Equation (2020) Performed By: #### L 500.2500 ####[facility] [address] [place], [address] Glucose [Mass/Vol] 119 mg/dL High 70-99 [facility] Comment on above: Performed By: #### L 500.2500 ####[facility] [address] [place], [address] Potassium [Moles/Vol] 3.8 mmol/L Normal 3.3-5.1 [facility] Comment on above: Performed By: #### L 500.2500 ####[facility] [address] [place], [address] Sodium [Moles/Vol] 128 mmol/L Low 133-145 [facility] Comment on above: Performed By: #### L 500.2500 ####[facility] [address] [place], [address] Urea nitrogen [Mass/Vol] 11 mg/dL Normal 4-19 [facility] Comment on above: Performed By: #### L 500.2500 ####[facility] [address] [place], [address] BUN/CRE 18.6 RATIO Normal 10-20 [facility] Comment on above: Performed By: #### L 100.0100, L500.2500 ####[facility] [address] [place], [address] Calcium [Mass/Vol] 9.3 mg/dL Normal 7.6-11.0 [facility] Comment on above: Performed By: #### L 100.0100, L500.2500 ####[facility] [address] [place], [address] Chloride [Moles/Vol] 91 mmol/L Low 98-108 [facility] Comment on above: Performed By: #### L 100.0100, L500.2500 ####[facility] [address] [place], [address] CO2 [Moles/Vol] 21.8 mmol/L Normal 21.0-32.0 [facility] Comment on above: Performed By: #### L 100.0100, L500.2500 ####[facility] [address] [place], [address] Creatinine [Mass/Vol] 0.68 mg/dL Low 0.70-1.20 [facility] Comment on above: Performed By: #### L 100.0100, L500.2500 ####[facility] [address] [place], [address] ECRCL 95.23 ml/min Normal 50-250 [facility] Comment on above: Performed By: #### L 100.0100, L500.2500 ####[facility] [address] [place], [address] GAP 14 Normal 5-15 [facility] Comment on above: Performed By: #### L 100.0100, L500.2500 ####[facility] [address] [place], [address] GFR/1.73 sq M.predicted among non-blacks MDRD (S/P/Bld) [Vol rate/Area] 97 mL/min/{1.73_m2} Normal >60 [facility] Comment on above: Result Comment: mL/m in/1.73m2 CKD-EPI Creatinine Equation (2020) Performed By: #### L 100.0100, L500.2500 ####[facility] [address] [place], [address] Glucose [Mass/Vol] 116 mg/dL High 70-99 [facility] Comment on above: Performed By: #### L 100.0100, L500.2500 ####[facility] [address] [place], [address] Potassium [Moles/Vol] 4.0 mmol/L Normal 3.3-5.1 [facility] Comment on above: Result Comment: Hemo lysis present, Results??could be affected.?? Performed By: #### L 100.0100, L500.2500 ####[facility] [address] [place], [address] Sodium [Moles/Vol] 127 mmol/L Low 133-145 [facility] Comment on above: Performed By: #### L 100.0100, L500.2500 ####[facility] [address] [place], [address] Urea nitrogen [Mass/Vol] 13 mg/dL Normal 4-19 [facility] Comment on above: Performed By: #### L 100.0100, L500.2500 ####[facility] [address] [place], [address] CBC W/Diff, Automatedon 05-0 -2024 Absolute Lymph 1.01 X10 3/uL Normal 0.83-4.51 [facility] Comment on above: Performed By: #### L 100.0100, L500.2500 ####[facility] [address] [place], [address] Absolute Neut 12.6 X10 3/uL High 2.0-7.7 [facility] Comment on above: Performed By: #### L 100.0100, L500.2500 ####[facility] [address] [place], [address] Basophils/100 WBC (Bld) 0.2 % Normal 0-1 [facility] Comment on above: Performed By: #### L 100.0100, L500.2500 ####[facility] [address] [place], [address] Eosinophils/100 WBC (Bld) 0.0 % Normal 0-5 [facility] Comment on above: Performed By: #### L 100.0100, L500.2500 ####[facility] [address] [place], [address] Erythrocyte distribution width (RBC) [Ratio] 12.9 % Normal 11.6-14.6 [facility] Comment on above: Performed By: #### L 100.0100, L500.2500 ####[facility] [address] [place], [address] Hematocrit (Bld) [Volume fraction] 39.2 % Low 40-54 [facility] Comment on above: Performed By: #### L 100.0100, L500.2500 ####[facility] [address] [place], [address] Hemoglobin (Bld) [Mass/Vol] 13.8 g/dL Normal 13.0-16.5 [facility] Comment on above: Performed By: #### L 100.0100, L500.2500 ####[facility] [address] [place], [address] IG% 0.400 Normal 0.0-0.9 [facility] Comment on above: Result Comment: IG% - Immature Granulocytes (promyelocytes, myelocytes andmetamyelocytes) > 1% indicates that a LEFT SHIFT is Present. Performed By: #### L 100.0100, L500.2500 ####[facility] [address] [place], [address] Lymphocytes/100 WBC (Bld) 7.0 % Low 19-41 [facility] Comment on above: Performed By: #### L 100.0100, L500.2500 ####[facility] [address] [place], [address] MCH (RBC) [Entitic mass] 32.1 pg High 27.0-32.0 [facility] Comment on above: Performed By: #### L 100.0100, L500.2500 ####[facility] [address] [place], [address] MCHC (RBC) [Mass/Vol] 35.2 g/dL Normal 32-36 [facility] Comment on above: Performed By: #### L 100.0100, L500.2500 ####[facility] [address] [place], [address] MCV (RBC) [Entitic vol] 91.2 fL Normal 80-94 [facility] Comment on above: Performed By: #### L 100.0100, L500.2500 ####[facility] [address] [place], [address] Monocytes/100 WBC (Bld) 4.5 % Normal 0-10 [facility] Comment on above: Performed By: #### L 100.0100, L500.2500 ####[facility] [address] [place], [address] Neutrophils/100 WBC (Bld) 87.9 % High 47-70 [facility] Comment on above: Performed By: #### L 100.0100, L500.2500 ####[facility] [address] [place], [address] Nucleated RBC (Bld) [#/Vol] 0 10*3/uL Normal 0-5 [facility] Comment on above: Performed By: #### L 100.0100, L500.2500 ####[facility] [address] [place], [address] Platelet mean volume (Bld) [Entitic vol] 9.6 fL Normal 6.2-12.0 [facility] Comment on above: Performed By: #### L 100.0100, L500.2500 ####[facility] [address] [place], [address] Platelets (Bld) [#/Vol] 306 10*3/uL Normal 150-450 [facility] Comment on above: Performed By: #### L 100.0100, L500.2500 ####[facility] [address] [place], [address] RBC (Bld) [#/Vol] 4.30 10*6/uL Low 4.6-6.2 [facility] Comment on above: Performed By: #### L 100.0100, L500.2500 ####[facility] [address] [place], [address] RDW SD 43.0 fl Normal 35.1-43.9 [facility] Comment on above: Performed By: #### L 100.0100, L500.2500 ####[facility] [address] [place], [address] WBC (Bld) [#/Vol] 14.3 10*3/uL High 4.4-11.0 [facility] Comment on above: Performed By: #### L 100.0100, L500.2500 ####[facility] [address] [place], [address] Emergency Department Summary on 06-07-2024 Emergency Department Summary Normal [facility] Lipaseon 06-07-2024 Lipase [Catalytic activity/Vol] 35 U/L Normal 13-75 [facility] Comment on above: Result Comment: Nagi nelson note:LIPASE revised reference range effective 22.New Lipase methodology. Expected to produce lower valuesthan the previous assay method.NEW Reference Range: 13 - 75 U/L Performed By: #### L 501.2450, L500.3400 ####[facility] [address] [place], [address] Liver Profileon 06-07-2024 Albumin [Mass/Vol] 3.9 g/dL Normal 3.4-4.8 [facility] Comment on above: Performed By: #### L 501.2450, L500.3400 ####[facility] [address] [place], [address] ALK PHOS 89 U/L Normal 40-129 [facility] Comment on above: Performed By: #### L 501.2450, L500.3400 ####[facility] [address] [place], [address] ALT [Catalytic activity/Vol] 21 U/L Normal <=46 [facility] Comment on above: Performed By: #### L 501.2450, L500.3400 ####[facility] [address] [place], [address] AST [Catalytic activity/Vol] 26 U/L Normal <=37 [facility] Comment on above: Result Comment: Hemo lysis present, Results??could be affected.?? Performed By: #### L 501.2450, L500.3400 ####[facility] [address] [place], [address] Bilirubin [Mass/Vol] 0.49 mg/dL Normal 0.00-1.30 [facility] Comment on above: Performed By: #### L 501.2450, L500.3400 ####[facility] [address] [place], [address] Bilirubin.direct [Mass/Vol] 0.22 mg/dL Normal 0.00-0.30 [facility] Comment on above: Result Comment: Hemo lysis present, Results??could be affected.?? Performed By: #### L 501.2450, L500.3400 ####[facility] [address] [place], [address] Globulin (S) [Mass/Vol] 3.6 g/dL Normal 2.2-4.2 [facility] Comment on above: Performed By: #### L 501.2450, L500.3400 ####[facility] [address] [place], [address] T PROT 7.5 g/dL Normal 5.9-8.4 [facility] Comment on above: Performed By: #### L 501.2450, L500.3400 ####[facility] [address] [place], [address] Urinalysis, Completeon 06-07 CAST,HYALINE 0-5 SEEN Normal 0-5 [facility] Comment on above: Order Comment: GEORGE CTOR TO SPECIFY Performed By: #### L 400.0001 ####[facility] [address] [place], [address] RBC 0-5 SEEN Normal 0-5 [facility] Comment on above: Order Comment: GEORGE CTOR TO SPECIFY Performed By: #### L 400.0001 ####[facility] [address] [place], [address] WBC 0-5 SEEN Normal 0-5 [facility] Comment on above: Order Comment: GEORGE CTOR TO SPECIFY Performed By: #### L 400.0001 ####[facility] [address] [place], [address] BACTERIA 0 SEEN Normal None Seen [facility] Comment on above: Order Comment: GEORGE CTOR TO SPECIFY Performed By: #### L 400.0001 ####[facility] [address] [place], [address] EPI,SQUAMOUS 0 SEEN Normal 0-5 [facility] Comment on above: Order Comment: COLLE CTOR TO SPECIFY Performed By: #### L 400.0001 ####[facility] [address] [place], [address] Mucus Ql (Urine sed) 0 SEEN Normal [facility] Comment on above: Order Comment: GEORGE CTOR TO SPECIFY Performed By: #### L 400.0001 ####[facility] [address] [place], [address] Basic Metabolic Profile (BMP )on 05-28-2024 BUN/CRE 21.0 RATIO High 10-20 [facility] Comment on above: Performed By: #### L 100.0100, L500.2500 ####[facility] [address] [place], [address] Calcium [Mass/Vol] 9.8 mg/dL Normal 7.6-11.0 [facility] Comment on above: Performed By: #### L 100.0100, L500.2500 ####[facility] [address] [place], [address] Chloride [Moles/Vol] 91 mmol/L Low 98-108 [facility] Comment on above: Performed By: #### L 100.0100, L500.2500 ####[facility] [address] [place], [address] CO2 [Moles/Vol] 26.3 mmol/L Normal 21.0-32.0 [facility] Comment on above: Performed By: #### L 100.0100, L500.2500 ####[facility] [address] [place], [address] Creatinine [Mass/Vol] 0.85 mg/dL Normal 0.70-1.20 [facility] Comment on above: Performed By: #### L 100.0100, L500.2500 ####[facility] [address] [place], [address] ECRCL 88.64 ml/min Normal 50-250 [facility] Comment on above: Performed By: #### L 100.0100, L500.2500 ####[facility] [address] [place], [address] GAP 11 Normal 5-15 [facility] Comment on above: Performed By: #### L 100.0100, L500.2500 ####[facility] [address] [place], [address] GFR/1.73 sq M.predicted among non-blacks MDRD (S/P/Bld) [Vol rate/Area] 90 mL/min/{1.73_m2} Normal >60 [facility] Comment on above: Result Comment: mL/m in/1.73m2 CKD-EPI Creatinine Equation (2020) Performed By: #### L 100.0100, L500.2500 ####[facility] [address] [place], [address] Glucose [Mass/Vol] 114 mg/dL High 70-99 [facility] Comment on above: Performed By: #### L 100.0100, L500.2500 ####[facility] [address] [place], [address] Potassium [Moles/Vol] 3.9 mmol/L Normal 3.3-5.1 [facility] Comment on above: Performed By: #### L 100.0100, L500.2500 ####[facility] [address] [place], [address] Sodium [Moles/Vol] 129 mmol/L Low 133-145 [facility] Comment on above: Performed By: #### L 100.0100, L500.2500 ####[facility] [address] [place], [address] Urea nitrogen [Mass/Vol] 18 mg/dL Normal 4-19 [facility] Comment on above: Performed By: #### L 100.0100, L500.2500 ####[facility] [address] [place], [address] CBC W/Diff, Automatedon 05-09 Absolute Lymph 1.70 X10 3/uL Normal 0.83-4.51 [facility] Comment on above: Performed By: #### L 100.0100, L500.2500 ####[facility] [address] [place], [address] Absolute Neut 9.5 X10 3/uL High 2.0-7.7 [facility] Comment on above: Performed By: #### L 100.0100, L500.2500 ####[facility] [address] [place], [address] Basophils/100 WBC (Bld) 0.4 % Normal 0-1 [facility] Comment on above: Performed By: #### L 100.0100, L500.2500 ####[facility] [address] [place], [address] Eosinophils/100 WBC (Bld) 0.3 % Normal 0-5 [facility] Comment on above: Performed By: #### L 100.0100, L500.2500 ####[facility] [address] [place], [address] Erythrocyte distribution width (RBC) [Ratio] 12.9 % Normal 11.6-14.6 [facility] Comment on above: Performed By: #### L 100.0100, L500.2500 ####[facility] [address] [place], [address] Hematocrit (Bld) [Volume fraction] 41.7 % Normal 40-54 [facility] Comment on above: Performed By: #### L 100.0100, L500.2500 ####[facility] [address] [place], [address] Hemoglobin (Bld) [Mass/Vol] 14.8 g/dL Normal 13.0-16.5 [facility] Comment on above: Performed By: #### L 100.0100, L500.2500 ####[facility] [address] [place], [address] IG% 0.500 Normal 0.0-0.9 [facility] Comment on above: Result Comment: IG% - Immature Granulocytes (promyelocytes, myelocytes andmetamyelocytes) > 1% indicates that a LEFT SHIFT is Present. Performed By: #### L 100.0100, L500.2500 ####[facility] [address] [place], [address] Lymphocytes/100 WBC (Bld) 13.7 % Low 19-41 [facility] Comment on above: Performed By: #### L 100.0100, L500.2500 ####[facility] [address] [place], [address] MCH (RBC) [Entitic mass] 32.3 pg High 27.0-32.0 [facility] Comment on above: Performed By: #### L 100.0100, L500.2500 ####[facility] [address] [place], [address] MCHC (RBC) [Mass/Vol] 35.5 g/dL Normal 32-36 [facility] Comment on above: Performed By: #### L 100.0100, L500.2500 ####[facility] [address] [place], [address] MCV (RBC) [Entitic vol] 91.0 fL Normal 80-94 [facility] Comment on above: Performed By: #### L 100.0100, L500.2500 ####[facility] [address] [place], [address] Monocytes/100 WBC (Bld) 8.9 % Normal 0-10 [facility] Comment on above: Performed By: #### L 100.0100, L500.2500 ####[facility] [address] [place], [address] Neutrophils/100 WBC (Bld) 76.2 % High 47-70 [facility] Comment on above: Performed By: #### L 100.0100, L500.2500 ####[facility] [address] [place], [address] Nucleated RBC (Bld) [#/Vol] 0 10*3/uL Normal 0-5 [facility] Comment on above: Performed By: #### L 100.0100, L500.2500 ####[facility] [address] [place], [address] Platelet mean volume (Bld) [Entitic vol] 9.5 fL Normal 6.2-12.0 [facility] Comment on above: Performed By: #### L 100.0100, L500.2500 ####[facility] [address] [place], [address] Platelets (Bld) [#/Vol] 316 10*3/uL Normal 150-450 [facility] Comment on above: Performed By: #### L 100.0100, L500.2500 ####[facility] [address] [place], [address] RBC (Bld) [#/Vol] 4.58 10*6/uL Low 4.6-6.2 [facility] Comment on above: Performed By: #### L 100.0100, L500.2500 ####[facility] [address] [place], [address] RDW SD 42.3 fl Normal 35.1-43.9 [facility] Comment on above: Performed By: #### L 100.0100, L500.2500 ####[facility] [address] [place], [address] WBC (Bld) [#/Vol] 12.4 10*3/uL High 4.4-11.0 [facility] Comment on above: Performed By: #### L 100.0100, L500.2500 ####[facility] [address] [place], [address] Emergency Department Summary on 05-28-2024 Emergency Department Summary Normal [facility] 12 Lead EKGon 05-26-2024 12 Lead EKG Normal [facility] CBC W/Diff, Automatedon 05-08 Absolute Lymph 1.66 X10 3/uL Normal 0.83-4.51 [facility] Comment on above: Performed By: #### L 500.4050, L501.2450, L100.0100 ####[facility] [address] [place], [address] Absolute Neut 9.5 X10 3/uL High 2.0-7.7 [facility] Comment on above: Performed By: #### L 500.4050, L501.2450, L100.0100 ####[facility] [address] [place], [address] Basophils/100 WBC (Bld) 0.5 % Normal 0-1 [facility] Comment on above: Performed By: #### L 500.4050, L501.2450, L100.0100 ####[facility] [address] [place], [address] Eosinophils/100 WBC (Bld) 0.5 % Normal 0-5 [facility] Comment on above: Performed By: #### L 500.4050, L501.2450, L100.0100 ####[facility] [address] [place], [address] Erythrocyte distribution width (RBC) [Ratio] 13.2 % Normal 11.6-14.6 [facility] Comment on above: Performed By: #### L 500.4050, L501.2450, L100.0100 ####[facility] [address] [place], [address] Hematocrit (Bld) [Volume fraction] 42.0 % Normal 40-54 [facility] Comment on above: Performed By: #### L 500.4050, L501.2450, L100.0100 ####[facility] [address] [place], [address] Hemoglobin (Bld) [Mass/Vol] 15.2 g/dL Normal 13.0-16.5 [facility] Comment on above: Performed By: #### L 500.4050, L501.2450, L100.0100 ####[facility] [address] [place], [address] IG% 0.300 Normal 0.0-0.9 [facility] Comment on above: Result Comment: IG% - Immature Granulocytes (promyelocytes, myelocytes andmetamyelocytes) > 1% indicates that a LEFT SHIFT is Present. Performed By: #### L 500.4050, L501.2450, L100.0100 ####[facility] [address] [place], [address] Lymphocytes/100 WBC (Bld) 13.4 % Low 19-41 [facility] Comment on above: Performed By: #### L 500.4050, L501.2450, L100.0100 ####[facility] [address] [place], [address] MCH (RBC) [Entitic mass] 33.4 pg High 27.0-32.0 [facility] Comment on above: Performed By: #### L 500.4050, L501.2450, L100.0100 ####[facility] [address] [place], [address] MCHC (RBC) [Mass/Vol] 36.2 g/dL High 32-36 [facility] Comment on above: Performed By: #### L 500.4050, L501.2450, L100.0100 ####[facility] [address] [place], [address] MCV (RBC) [Entitic vol] 92.3 fL Normal 80-94 [facility] Comment on above: Performed By: #### L 500.4050, L501.2450, L100.0100 ####[facility] [address] [place], [address] Monocytes/100 WBC (Bld) 8.2 % Normal 0-10 [facility] Comment on above: Performed By: #### L 500.4050, L501.2450, L100.0100 ####[facility] [address] [place], [address] Neutrophils/100 WBC (Bld) 77.1 % High 47-70 [facility] Comment on above: Performed By: #### L 500.4050, L501.2450, L100.0100 ####[facility] [address] [place], [address] Nucleated RBC (Bld) [#/Vol] 0 10*3/uL Normal 0-5 [facility] Comment on above: Performed By: #### L 500.4050, L501.2450, L100.0100 ####[facility] [address] [place], [address] Platelet mean volume (Bld) [Entitic vol] 9.6 fL Normal 6.2-12.0 [facility] Comment on above: Performed By: #### L 500.4050, L501.2450, L100.0100 ####[facility] [address] [place], [address] Platelets (Bld) [#/Vol] 329 10*3/uL Normal 150-450 [facility] Comment on above: Performed By: #### L 500.4050, L501.2450, L100.0100 ####[facility] [address] [place], [address] RBC (Bld) [#/Vol] 4.55 10*6/uL Low 4.6-6.2 [facility] Comment on above: Performed By: #### L 500.4050, L501.2450, L100.0100 ####[facility] [address] [place], [address] RDW SD 44.5 fl High 35.1-43.9 [facility] Comment on above: Performed By: #### L 500.4050, L501.2450, L100.0100 ####[facility] [address] [place], [address] WBC (Bld) [#/Vol] 12.4 10*3/uL High 4.4-11.0 [facility] Comment on above: Performed By: #### L 500.4050, L501.2450, L100.0100 ####[facility] [address] [place], [address] Comprehensive Metabolic Prof [facility] 05-26-2024 Albumin [Mass/Vol] 3.8 g/dL Normal 3.4-4.8 [facility] Comment on above: Performed By: #### L 500.4050, L501.2450, L100.0100 ####[facility] [address] [place], [address] Albumin/Globulin [Mass ratio] 1.0 {ratio} Normal 0.9-2.4 [facility] Comment on above: Performed By: #### L 500.4050, L501.2450, L100.0100 ####[facility] [address] [place], [address] ALK PHOS 94 U/L Normal 40-129 [facility] Comment on above: Performed By: #### L 500.4050, L501.2450, L100.0100 ####[facility] [address] [place], [address] ALT [Catalytic activity/Vol] 22 U/L Normal <=46 [facility] Comment on above: Performed By: #### L 500.4050, L501.2450, L100.0100 ####[facility] [address] [place], [address] AST [Catalytic activity/Vol] 27 U/L Normal <=37 [facility] Comment on above: Result Comment: Hemo lysis present, Results??could be affected.?? Performed By: #### L 500.4050, L501.2450, L100.0100 ####[facility] [address] [place], [address] Bilirubin [Mass/Vol] 0.51 mg/dL Normal 0.00-1.30 [facility] Comment on above: Performed By: #### L 500.4050, L501.2450, L100.0100 ####[facility] [address] [place], [address] BUN/CRE 25.7 RATIO High 10-20 [facility] Comment on above: Performed By: #### L 500.4050, L501.2450, L100.0100 ####[facility] [address] [place], [address] Calcium [Mass/Vol] 9.7 mg/dL Normal 7.6-11.0 [facility] Comment on above: Performed By: #### L 500.4050, L501.2450, L100.0100 ####[facility] [address] [place], [address] Chloride [Moles/Vol] 98 mmol/L Normal 98-108 [facility] Comment on above: Performed By: #### L 500.4050, L501.2450, L100.0100 ####[facility] [address] [place], [address] CO2 [Moles/Vol] 23.4 mmol/L Normal 21.0-32.0 [facility] Comment on above: Performed By: #### L 500.4050, L501.2450, L100.0100 ####[facility] [address] [place], [address] Creatinine [Mass/Vol] 0.86 mg/dL Normal 0.70-1.20 [facility] Comment on above: Performed By: #### L 500.4050, L501.2450, L100.0100 ####[facility] [address] [place], [address] ECRCL 87.90 ml/min Normal 50-250 [facility] Comment on above: Performed By: #### L 500.4050, L501.2450, L100.0100 ####[facility] [address] [place], [address] GAP 13 Normal 5-15 [facility] Comment on above: Performed By: #### L 500.4050, L501.2450, L100.0100 ####[facility] [address] [place], [address] GFR/1.73 sq M.predicted among non-blacks MDRD (S/P/Bld) [Vol rate/Area] 90 mL/min/{1.73_m2} Normal >60 [facility] Comment on above: Result Comment: mL/m in/1.73m2 CKD-EPI Creatinine Equation (2020) Performed By: #### L 500.4050, L501.2450, L100.0100 ####[facility] [address] [place], [address] Globulin (S) [Mass/Vol] 3.7 g/dL Normal 2.2-4.2 [facility] Comment on above: Performed By: #### L 500.4050, L501.2450, L100.0100 ####[facility] [address] [place], [address] Glucose [Mass/Vol] 111 mg/dL High 70-99 [facility] Comment on above: Performed By: #### L 500.4050, L501.2450, L100.0100 ####[facility] [address] [place], [address] Potassium [Moles/Vol] 4.5 mmol/L Normal 3.3-5.1 [facility] Comment on above: Result Comment: Hemo lysis present, Results??could be affected.?? Performed By: #### L 500.4050, L501.2450, L100.0100 ####[facility] [address] [place], [address] Sodium [Moles/Vol] 135 mmol/L Normal 133-145 [facility] Comment on above: Performed By: #### L 500.4050, L501.2450, L100.0100 ####[facility] [address] [place], [address] T PROT 7.5 g/dL Normal 5.9-8.4 [facility] Comment on above: Performed By: #### L 500.4050, L501.2450, L100.0100 ####[facility] [address] [place], [address] Urea nitrogen [Mass/Vol] 22 mg/dL High 4-19 [facility] Comment on above: Performed By: #### L 500.4050, L501.2450, L100.0100 ####[facility] [address] [place], [address] Emergency Department Summary on 05-26-2024 Emergency Department Summary Normal [facility] Lipaseon 05-26-2024 Lipase [Catalytic activity/Vol] 132 U/L High 13-75 [facility] Comment on above: Result Comment: Nagi nelson note:LIPASE revised reference range effective 22.New Lipase methodology. Expected to produce lower valuesthan the previous assay method.NEW Reference Range: 13 - 75 U/L Performed By: #### L 500.4050, L501.2450, L100.0100 ####[facility] [address] [place], [address] Urinalysis, Completeon 05-26 BACTERIA 0 SEEN Normal None Seen [facility] Comment on above: Order Comment: CLEAN CATCH Performed By: #### L 400.0001 ####[facility] [address] [place], [address] EPI,SQUAMOUS 0 SEEN Normal 0-5 [facility] Comment on above: Order Comment: CLEAN CATCH Performed By: #### L 400.0001 ####[facility] [address] [place], [address] Mucus Ql (Urine sed) 0 SEEN Normal [facility] Comment on above: Order Comment: CLEAN CATCH Performed By: #### L 400.0001 ####[facility] [address] [place], [address] RBC 0 SEEN Normal 0-5 [facility] Comment on above: Order Comment: CLEAN CATCH Performed By: #### L 400.0001 ####[facility] [address] [place], [address] WBC 0 SEEN Normal 0-5 [facility] Comment on above: Order Comment: CLEAN CATCH Performed By: #### L 400.0001 ####[facility] [address] [place], [address] Urine Drug Screen (VISTA)on 05-26-2024 AMPHETAMINES Negative Normal <1000 ng/mL [facility] Comment on above: Performed By: #### L 505.5000 ####[facility] [address] [place] [address] BARBITIURATES Negative Normal < 200 ng/mL [facility] Comment on above: Performed By: #### L 505.5000 ####[facility] [address] [place] [address] BENZODIAZIPINE Positive Normal < 200 ng/mL [facility] Comment on above: Result Comment: If c onfirmation testing is needed, a separate order will berequired to send out testing to the reference laboratory. Performed By: #### L 505.5000 ####[facility] [address] [place] [address] BUP Ur Drug Scr Negative Normal < 200 ng/mL [facility] Comment on above: Performed By: #### L 505.5000 ####[facility] [address] [place] [address] COCAINE Negative Normal < 300 ng/mL [facility] Comment on above: Performed By: #### L 505.5000 ####[facility] [address] [place] [address] Fentanyl Negative Normal [facility] Comment on above: Performed By: #### L 505.5000 ####[facility] [address] [place] [address] METHADONE Negative Normal < 300 ng/mL [facility] Comment on above: Performed By: #### L 505.5000 ####[facility] [address] [place] [address] OPIATES Negative Normal < 300 ng/mL [facility] Comment on above: Performed By: #### L 505.5000 ####[facility] [address] [place] [id number] OXYCODONE Negative Normal < 100 ng/mL [facility] Comment on above: Performed By: #### L 505.5000 ####[facility] [address] [place], [address] PCP Negative Normal < 25 ng/mL [facility] Comment on above: Performed By: #### L 505.5000 ####[facility] [address] [place], [address] THC Negative Normal < 50 ng/mL [facility] Comment on above: Performed By: #### L 505.5000 ####[facility] [address] [place], [address] CBC W/Diff, Automatedon 05-08 Absolute Lymph 1.99 X10 3/uL Normal 0.83-4.51 [facility] Comment on above: Performed By: #### L 500.4050, L100.0100, L503.7505 ####[facility] [address] [place], [address] Absolute Neut 6.1 X10 3/uL Normal 2.0-7.7 [facility] Comment on above: Performed By: #### L 500.4050, L100.0100, L503.7505 ####[facility] [address] [place], [address] Basophils/100 WBC (Bld) 0.5 % Normal 0-1 [facility] Comment on above: Performed By: #### L 500.4050, L100.0100, L503.7505 ####[facility] [address] [place], [address] Eosinophils/100 WBC (Bld) 1.1 % Normal 0-5 [facility] Comment on above: Performed By: #### L 500.4050, L100.0100, L503.7505 ####[facility] [address] [place], [address] Erythrocyte distribution width (RBC) [Ratio] 12.6 % Normal 11.6-14.6 [facility] Comment on above: Performed By: #### L 500.4050, L100.0100, L503.7505 ####[facility] [address] [place], [address] Hematocrit (Bld) [Volume fraction] 40.2 % Normal 40-54 [facility] Comment on above: Performed By: #### L 500.4050, L100.0100, L503.7505 ####[facility] [address] [place], [address] Hemoglobin (Bld) [Mass/Vol] 13.9 g/dL Normal 13.0-16.5 [facility] Comment on above: Performed By: #### L 500.4050, L100.0100, L503.7505 ####[facility] [address] [place], [address] IG% 0.500 Normal 0.0-0.9 [facility] Comment on above: Result Comment: IG% - Immature Granulocytes (promyelocytes, myelocytes andmetamyelocytes) > 1% indicates that a LEFT SHIFT is Present. Performed By: #### L 500.4050, L100.0100, L503.7505 ####[facility] [address] [place], [address] Lymphocytes/100 WBC (Bld) 21.4 % Normal 19-41 [facility] Comment on above: Performed By: #### L 500.4050, L100.0100, L503.7505 ####[facility] [address] [place], [address] MCH (RBC) [Entitic mass] 32.3 pg High 27.0-32.0 [facility] Comment on above: Performed By: #### L 500.4050, L100.0100, L503.7505 ####[facility] [address] [place], [address] MCHC (RBC) [Mass/Vol] 34.6 g/dL Normal 32-36 [facility] Comment on above: Performed By: #### L 500.4050, L100.0100, L503.7505 ####[facility] [address] [place], [address] MCV (RBC) [Entitic vol] 93.5 fL Normal 80-94 [facility] Comment on above: Performed By: #### L 500.4050, L100.0100, L503.7505 ####[facility] [address] [place], [address] Monocytes/100 WBC (Bld) 11.3 % High 0-10 [facility] Comment on above: Performed By: #### L 500.4050, L100.0100, L503.7505 ####[facility] [address] [place], [address] Neutrophils/100 WBC (Bld) 65.2 % Normal 47-70 [facility] Comment on above: Performed By: #### L 500.4050, L100.0100, L503.7505 ####[facility] [address] [place], [address] Nucleated RBC (Bld) [#/Vol] 0 10*3/uL Normal 0-5 [facility] Comment on above: Performed By: #### L 500.4050, L100.0100, L503.7505 ####[facility] [address] [place], [address] Platelet mean volume (Bld) [Entitic vol] 9.8 fL Normal 6.2-12.0 [facility] Comment on above: Performed By: #### L 500.4050, L100.0100, L503.7505 ####[facility] [address] [place], [address] Platelets (Bld) [#/Vol] 309 10*3/uL Normal 150-450 [facility] Comment on above: Performed By: #### L 500.4050, L100.0100, L503.7505 ####[facility] [address] [place], [address] RBC (Bld) [#/Vol] 4.30 10*6/uL Low 4.6-6.2 [facility] Comment on above: Performed By: #### L 500.4050, L100.0100, L503.7505 ####[facility] [address] [place], [address] RDW SD 42.7 fl Normal 35.1-43.9 [facility] Comment on above: Performed By: #### L 500.4050, L100.0100, L503.7505 ####[facility] [address] [place], [address] WBC (Bld) [#/Vol] 9.3 10*3/uL Normal 4.4-11.0 [facility] Comment on above: Performed By: #### L 500.4050, L100.0100, L503.7505 ####[facility] [address] [place], [address] Comprehensive Metabolic Prof [facility] 05-21-2024 Albumin [Mass/Vol] 3.6 g/dL Normal 3.4-4.8 [facility] Comment on above: Performed By: #### L 500.4050, L100.0100, L503.7505 ####[facility] [address] [place], [address] Albumin/Globulin [Mass ratio] 1.0 {ratio} Normal 0.9-2.4 [facility] Comment on above: Performed By: #### L 500.4050, L100.0100, L503.7505 ####[facility] [address] [place], [address] ALK PHOS 92 U/L Normal 40-129 [facility] Comment on above: Performed By: #### L 500.4050, L100.0100, L503.7505 ####[facility] [address] [place], [address] ALT [Catalytic activity/Vol] 17 U/L Normal <=46 [facility] Comment on above: Performed By: #### L 500.4050, L100.0100, L503.7505 ####[facility] [address] [place], [address] AST [Catalytic activity/Vol] 27 U/L Normal <=37 [facility] Comment on above: Performed By: #### L 500.4050, L100.0100, L503.7505 ####[facility] [address] [place], [address] Bilirubin [Mass/Vol] 0.47 mg/dL Normal 0.00-1.30 [facility] Comment on above: Performed By: #### L 500.4050, L100.0100, L503.7505 ####[facility] [address] [place], [address] BUN/CRE 14.6 RATIO Normal 10-20 [facility] Comment on above: Performed By: #### L 500.4050, L100.0100, L503.7505 ####[facility] [address] [place], [address] Calcium [Mass/Vol] 9.5 mg/dL Normal 7.6-11.0 [facility] Comment on above: Performed By: #### L 500.4050, L100.0100, L503.7505 ####[facility] [address] [place], [address] Chloride [Moles/Vol] 92 mmol/L Low 98-108 [facility] Comment on above: Performed By: #### L 500.4050, L100.0100, L503.7505 ####[facility] [address] [place], [address] CO2 [Moles/Vol] 26.3 mmol/L Normal 21.0-32.0 [facility] Comment on above: Performed By: #### L 500.4050, L100.0100, L503.7505 ####[facility] [address] [place], [address] Creatinine [Mass/Vol] 0.70 mg/dL Normal 0.70-1.20 [facility] Comment on above: Performed By: #### L 500.4050, L100.0100, L503.7505 ####[facility] [address] [place], [address] GAP 11 Normal 5-15 [facility] Comment on above: Performed By: #### L 500.4050, L100.0100, L503.7505 ####[facility] [address] [place], [address] GFR/1.73 sq M.predicted among non-blacks MDRD (S/P/Bld) [Vol rate/Area] 95 mL/min/{1.73_m2} Normal >60 [facility] Comment on above: Result Comment: mL/m in/1.73m2 CKD-EPI Creatinine Equation (2020) Performed By: #### L 500.4050, L100.0100, L503.7505 ####[facility] [address] [place], [address] Globulin (S) [Mass/Vol] 3.6 g/dL Normal 2.2-4.2 [facility] Comment on above: Performed By: #### L 500.4050, L100.0100, L503.7505 ####[facility] [address] [place], [address] Glucose [Mass/Vol] 99 mg/dL Normal 70-99 [facility] Comment on above: Performed By: #### L 500.4050, L100.0100, L503.7505 ####[facility] [address] [place], [address] Potassium [Moles/Vol] 4.4 mmol/L Normal 3.3-5.1 [facility] Comment on above: Performed By: #### L 500.4050, L100.0100, L503.7505 ####[facility] [address] [place], [address] Sodium [Moles/Vol] 129 mmol/L Low 133-145 [facility] Comment on above: Performed By: #### L 500.4050, L100.0100, L503.7505 ####[facility] [address] [place], [address] T PROT 7.2 g/dL Normal 5.9-8.4 [facility] Comment on above: Performed By: #### L 500.4050, L100.0100, L503.7505 ####[facility] [address] [place], [address] Urea nitrogen [Mass/Vol] 10 mg/dL Normal 4-19 [facility] Comment on above: Performed By: #### L 500.4050, L100.0100, L503.7505 ####[facility] [address] [place], [address] L503.7505on 05-21-2024 Natriuretic peptide B (Bld) [Mass/Vol] 66 pg/mL Normal <=1800 [facility] Comment on above: Result Comment: Hear t Failure Unlikely: < 300 pg/mLHeart Failure Likely< 50 Years: > 450 pg/mL50-75 Years: > 900 pg/mL>75 Years: > 1800 pg/mL Performed By: #### L 500.4050, L100.0100, L503.7505 ####[facility] [address] [place], [address] Basic Metabolic Profile (BMP )on 04-30-2024 BUN/CRE 23.2 RATIO High 10-20 [facility] Comment on above: Order Comment: 103.2 Performed By: #### L 503.0106, L500.2500, L100.0100, L501.5200, L506.1001, L501.9520 ####[facility] [address] [place], [address] Calcium [Mass/Vol] 9.4 mg/dL Normal 7.6-11.0 [facility] Comment on above: Order Comment: 103.2 Performed By: #### L 503.0106, L500.2500, L100.0100, L501.5200, L506.1001, L501.9520 ####[facility] [address] [place], [address] Chloride [Moles/Vol] 98 mmol/L Normal 98-108 [facility] Comment on above: Order Comment: 103.2 Performed By: #### L 503.0106, L500.2500, L100.0100, L501.5200, L506.1001, L501.9520 ####[facility] [address] [place], [address] CO2 [Moles/Vol] 24.1 mmol/L Normal 21.0-32.0 [facility] Comment on above: Order Comment: 103.2 Performed By: #### L 503.0106, L500.2500, L100.0100, L501.5200, L506.1001, L501.9520 ####[facility] [address] [place], [address] Creatinine [Mass/Vol] 0.87 mg/dL Normal 0.70-1.20 [facility] Comment on above: Order Comment: 103.2 Performed By: #### L 503.0106, L500.2500, L100.0100, L501.5200, L506.1001, L501.9520 ####[facility] [address] [place], [address] GAP 12 Normal 5-15 [facility] Comment on above: Order Comment: 103.2 Performed By: #### L 503.0106, L500.2500, L100.0100, L501.5200, L506.1001, L501.9520 ####[facility] [address] [place], [address] GFR/1.73 sq M.predicted among non-blacks MDRD (S/P/Bld) [Vol rate/Area] 90 mL/min/{1.73_m2} Normal >60 [facility] Comment on above: Order Comment: 103.2 Result Comment: mL/m in/1.73m2 CKD-EPI Creatinine Equation (2020) Performed By: #### L 503.0106, L500.2500, L100.0100, L501.5200, L506.1001, L501.9520 ####[facility] [address] [place], [address] Glucose [Mass/Vol] 121 mg/dL High 70-99 [facility] Comment on above: Order Comment: 103.2 Performed By: #### L 503.0106, L500.2500, L100.0100, L501.5200, L506.1001, L501.9520 ####[facility] [address] [place], [address] Potassium [Moles/Vol] 4.2 mmol/L Normal 3.3-5.1 [facility] Comment on above: Order Comment: 103.2 Performed By: #### L 503.0106, L500.2500, L100.0100, L501.5200, L506.1001, L501.9520 ####[facility] [address] [place], [address] Sodium [Moles/Vol] 134 mmol/L Normal 133-145 [facility] Comment on above: Order Comment: 103.2 Performed By: #### L 503.0106, L500.2500, L100.0100, L501.5200, L506.1001, L501.9520 ####[facility] [address] [place], [address] Urea nitrogen [Mass/Vol] 20 mg/dL High 4-19 [facility] Comment on above: Order Comment: 103.2 Performed By: #### L 503.0106, L500.2500, L100.0100, L501.5200, L506.1001, L501.9520 ####[facility] [address] [place], [address] CBC W/Diff, Automatedon 04-08 Absolute Lymph 1.32 X10 3/uL Normal 0.83-4.51 [facility] Comment on above: Order Comment: 103.2 Performed By: #### L 503.0106, L500.2500, L100.0100, L501.5200, L506.1001, L501.9520 ####[facility] [address] [place], [address] Absolute Neut 3.2 X10 3/uL Normal 2.0-7.7 [facility] Comment on above: Order Comment: 103.2 Performed By: #### L 503.0106, L500.2500, L100.0100, L501.5200, L506.1001, L501.9520 ####[facility] [address] [place], [address] Basophils/100 WBC (Bld) 1.0 % Normal 0-1 [facility] Comment on above: Order Comment: 103.2 Performed By: #### L 503.0106, L500.2500, L100.0100, L501.5200, L506.1001, L501.9520 ####[facility] [address] [place], [address] Eosinophils/100 WBC (Bld) 4.4 % Normal 0-5 [facility] Comment on above: Order Comment: 103.2 Performed By: #### L 503.0106, L500.2500, L100.0100, L501.5200, L506.1001, L501.9520 ####[facility] [address] [place], [address] Erythrocyte distribution width (RBC) [Ratio] 13.2 % Normal 11.6-14.6 [facility] Comment on above: Order Comment: 103.2 Performed By: #### L 503.0106, L500.2500, L100.0100, L501.5200, L506.1001, L501.9520 ####[facility] [address] [place], [address] Hematocrit (Bld) [Volume fraction] 42.5 % Normal 40-54 [facility] Comment on above: Order Comment: 103.2 Performed By: #### L 503.0106, L500.2500, L100.0100, L501.5200, L506.1001, L501.9520 ####[facility] [address] [place], [address] Hemoglobin (Bld) [Mass/Vol] 14.5 g/dL Normal 13.0-16.5 [facility] Comment on above: Order Comment: 103.2 Performed By: #### L 503.0106, L500.2500, L100.0100, L501.5200, L506.1001, L501.9520 ####[facility] [address] [place], [address] IG% 0.700 Normal 0.0-0.9 [facility] Comment on above: Order Comment: 103.2 Result Comment: IG% - Immature Granulocytes (promyelocytes, myelocytes andmetamyelocytes) > 1% indicates that a LEFT SHIFT is Present. Performed By: #### L 503.0106, L500.2500, L100.0100, L501.5200, L506.1001, L501.9520 ####[facility] [address] [place], [address] Lymphocytes/100 WBC (Bld) 22.4 % Normal 19-41 [facility] Comment on above: Order Comment: 103.2 Performed By: #### L 503.0106, L500.2500, L100.0100, L501.5200, L506.1001, L501.9520 ####[facility] [address] [place], [address] MCH (RBC) [Entitic mass] 33.3 pg High 27.0-32.0 [facility] Comment on above: Order Comment: 103.2 Performed By: #### L 503.0106, L500.2500, L100.0100, L501.5200, L506.1001, L501.9520 ####[facility] [address] [place], [address] MCHC (RBC) [Mass/Vol] 34.1 g/dL Normal 32-36 [facility] Comment on above: Order Comment: 103.2 Performed By: #### L 503.0106, L500.2500, L100.0100, L501.5200, L506.1001, L501.9520 ####[facility] [address] [place], [address] MCV (RBC) [Entitic vol] 97.7 fL High 80-94 [facility] Comment on above: Order Comment: 103.2 Performed By: #### L 503.0106, L500.2500, L100.0100, L501.5200, L506.1001, L501.9520 ####[facility] [address] [place], [address] Monocytes/100 WBC (Bld) 17.5 % High 0-10 [facility] Comment on above: Order Comment: 103.2 Performed By: #### L 503.0106, L500.2500, L100.0100, L501.5200, L506.1001, L501.9520 ####[facility] [address] [place], [address] Neutrophils/100 WBC (Bld) 54.0 % Normal 47-70 [facility] Comment on above: Order Comment: 103.2 Performed By: #### L 503.0106, L500.2500, L100.0100, L501.5200, L506.1001, L501.9520 ####[facility] [address] [place], [address] Nucleated RBC (Bld) [#/Vol] 0 10*3/uL Normal 0-5 [facility] Comment on above: Order Comment: 103.2 Performed By: #### L 503.0106, L500.2500, L100.0100, L501.5200, L506.1001, L501.9520 ####[facility] [address] [place], [address] Platelet mean volume (Bld) [Entitic vol] 10.2 fL Normal 6.2-12.0 [facility] Comment on above: Order Comment: 103.2 Performed By: #### L 503.0106, L500.2500, L100.0100, L501.5200, L506.1001, L501.9520 ####[facility] [address] [place], [address] Platelets (Bld) [#/Vol] 172 10*3/uL Normal 150-450 [facility] Comment on above: Order Comment: 103.2 Performed By: #### L 503.0106, L500.2500, L100.0100, L501.5200, L506.1001, L501.9520 ####[facility] [address] [place], [address] RBC (Bld) [#/Vol] 4.35 10*6/uL Low 4.6-6.2 [facility] Comment on above: Order Comment: 103.2 Performed By: #### L 503.0106, L500.2500, L100.0100, L501.5200, L506.1001, L501.9520 ####[facility] [address] [place], [address] RDW SD 47.0 fl High 35.1-43.9 [facility] Comment on above: Order Comment: 103.2 Performed By: #### L 503.0106, L500.2500, L100.0100, L501.5200, L506.1001, L501.9520 ####[facility] [address] [place], [address] WBC (Bld) [#/Vol] 5.9 10*3/uL Normal 4.4-11.0 [facility] Comment on above: Order Comment: 103.2 Performed By: #### L 503.0106, L500.2500, L100.0100, L501.5200, L506.1001, L501.9520 ####[facility] [address] [place], [address] L503.0106on 04-30-2024 Cobalamin (Vitamin B12) [Mass/Vol] 522 pg/mL Normal 180-914 [facility] Comment on above: Order Comment: 103.2 Performed By: #### L 503.0106, L500.2500, L100.0100, L501.5200, L506.1001, L501.9520 ####[facility] [address] [place], [address] L506.1001on 04-30-2024 Vitamin D 25-OH 52.8 ng/mL Normal 30-100 [facility] Comment on above: Order Comment: 103.2 Result Comment: Sandra min D StatusDeficiency: <20 ng/mL (50nmol/L)Insufficiency: 20-30 ng/mL (50-75 nmol/L)Sufficiency: 30-100 ng/mL (75-250 nmol/L)Toxicity: >100 ng/mL (>250 nmol/L) Performed By: #### L 503.0106, L500.2500, L100.0100, L501.5200, L506.1001, L501.9520 ####[facility] [address] [place], [address] Magnesiumon 04-30-2024 Magnesium [Mass/Vol] 2.1 mg/dL Normal 1.5-2.2 [facility] Comment on above: Order Comment: 103.2 Performed By: #### L 503.0106, L500.2500, L100.0100, L501.5200, L506.1001, L501.9520 ####[facility] [address] [place], [address] Thyroid Stim Hormone (TSH)on 04-30-2024 TSH 3.020 uIU/mL Normal 0.300-4.200 [facility] Comment on above: Order Comment: 103.2 Performed By: #### L 503.0106, L500.2500, L100.0100, L501.5200, L506.1001, L501.9520 ####[facility] [address] [place], [address] Basic Metabolic Profile (BMP )on 04-23-2024 BUN/CRE 21.4 RATIO High 10-20 [facility] Comment on above: Performed By: #### L 100.0100, L500.2500 ####[facility] [address] [place], [address] Calcium [Mass/Vol] 8.9 mg/dL Normal 7.6-11.0 [facility] Comment on above: Performed By: #### L 100.0100, L500.2500 ####[facility] [address] [place], [address] Chloride [Moles/Vol] 97 mmol/L Low 98-108 [facility] Comment on above: Performed By: #### L 100.0100, L500.2500 ####[facility] [address] [place], [address] CO2 [Moles/Vol] 25.6 mmol/L Normal 21.0-32.0 [facility] Comment on above: Performed By: #### L 100.0100, L500.2500 ####[facility] [address] [place], [address] Creatinine [Mass/Vol] 0.78 mg/dL Normal 0.70-1.20 [facility] Comment on above: Performed By: #### L 100.0100, L500.2500 ####[facility] [address] [place], [address] ECRCL 86.71 ml/min Normal 50-250 [facility] Comment on above: Performed By: #### L 100.0100, L500.2500 ####[facility] [address] [place], [address] GAP 11 Normal 5-15 [facility] Comment on above: Performed By: #### L 100.0100, L500.2500 ####[facility] [address] [place], [address] GFR/1.73 sq M.predicted among non-blacks MDRD (S/P/Bld) [Vol rate/Area] 93 mL/min/{1.73_m2} Normal >60 [facility] Comment on above: Result Comment: mL/m in/1.73m2 CKD-EPI Creatinine Equation (2020) Performed By: #### L 100.0100, L500.2500 ####[facility] [address] [place], [address] Glucose [Mass/Vol] 95 mg/dL Normal 70-99 [facility] Comment on above: Performed By: #### L 100.0100, L500.2500 ####[facility] [address] [place], [address] Potassium [Moles/Vol] 4.7 mmol/L Normal 3.3-5.1 [facility] Comment on above: Performed By: #### L 100.0100, L500.2500 ####[facility] [address] [place], [address] Sodium [Moles/Vol] 133 mmol/L Normal 133-145 [facility] Comment on above: Performed By: #### L 100.0100, L500.2500 ####[facility] [address] [place], [address] Urea nitrogen [Mass/Vol] 17 mg/dL Normal 4-19 [facility] Comment on above: Performed By: #### L 100.0100, L500.2500 ####[facility] [address] [place], [address] CBC W/Diff, Automatedon 04-07 Absolute Lymph 0.88 X10 3/uL Normal 0.83-4.51 [facility] Comment on above: Performed By: #### L 100.0100, L500.2500 ####[facility] [address] [place], [address] Absolute Neut 6.6 X10 3/uL Normal 2.0-7.7 [facility] Comment on above: Performed By: #### L 100.0100, L500.2500 ####[facility] [address] [place], [address] Basophils/100 WBC (Bld) 0.4 % Normal 0-1 [facility] Comment on above: Performed By: #### L 100.0100, L500.2500 ####[facility] [address] [place], [address] Eosinophils/100 WBC (Bld) 0.1 % Normal 0-5 [facility] Comment on above: Performed By: #### L 100.0100, L500.2500 ####[facility] [address] [place], [address] Erythrocyte distribution width (RBC) [Ratio] 13.7 % Normal 11.6-14.6 [facility] Comment on above: Performed By: #### L 100.0100, L500.2500 ####[facility] [address] [place], [address] Hematocrit (Bld) [Volume fraction] 40.4 % Normal 40-54 [facility] Comment on above: Performed By: #### L 100.0100, L500.2500 ####[facility] [address] [place], [address] Hemoglobin (Bld) [Mass/Vol] 13.7 g/dL Normal 13.0-16.5 [facility] Comment on above: Performed By: #### L 100.0100, L500.2500 ####[facility] [address] [place], [address] IG% 0.600 Normal 0.0-0.9 [facility] Comment on above: Result Comment: IG% - Immature Granulocytes (promyelocytes, myelocytes andmetamyelocytes) > 1% indicates that a LEFT SHIFT is Present. Performed By: #### L 100.0100, L500.2500 ####[facility] [address] [place], [address] Lymphocytes/100 WBC (Bld) 10.4 % Low 19-41 [facility] Comment on above: Performed By: #### L 100.0100, L500.2500 ####[facility] [address] [place], [address] MCH (RBC) [Entitic mass] 32.5 pg High 27.0-32.0 [facility] Comment on above: Performed By: #### L 100.0100, L500.2500 ####[facility] [address] [place], [address] MCHC (RBC) [Mass/Vol] 33.9 g/dL Normal 32-36 [facility] Comment on above: Performed By: #### L 100.0100, L500.2500 ####[facility] [address] [place], [address] MCV (RBC) [Entitic vol] 95.7 fL High 80-94 [facility] Comment on above: Performed By: #### L 100.0100, L500.2500 ####[facility] [address] [place], [address] Monocytes/100 WBC (Bld) 11.0 % High 0-10 [facility] Comment on above: Performed By: #### L 100.0100, L500.2500 ####[facility] [address] [place], [address] Neutrophils/100 WBC (Bld) 77.5 % High 47-70 [facility] Comment on above: Performed By: #### L 100.0100, L500.2500 ####[facility] [address] [place], [address] Nucleated RBC (Bld) [#/Vol] 0 10*3/uL Normal 0-5 [facility] Comment on above: Performed By: #### L 100.0100, L500.2500 ####[facility] [address] [place], [address] Platelet mean volume (Bld) [Entitic vol] 9.9 fL Normal 6.2-12.0 [facility] Comment on above: Performed By: #### L 100.0100, L500.2500 ####[facility] [address] [place], [address] Platelets (Bld) [#/Vol] 148 10*3/uL Low 150-450 [facility] Comment on above: Performed By: #### L 100.0100, L500.2500 ####[facility] [address] [place], [address] RBC (Bld) [#/Vol] 4.22 10*6/uL Low 4.6-6.2 [facility] Comment on above: Performed By: #### L 100.0100, L500.2500 ####[facility] [address] [place], [address] RDW SD 48.1 fl High 35.1-43.9 [facility] Comment on above: Performed By: #### L 100.0100, L500.2500 ####[facility] [address] [place], [address] WBC (Bld) [#/Vol] 8.5 10*3/uL Normal 4.4-11.0 [facility] Comment on above: Performed By: #### L 100.0100, L500.2500 ####[facility] [address] [place], [address] Pelvis (Routine)on Pelvis (Routine) Normal [facility] 12 Lead EKGon 04-22-2024 12 Lead EKG Normal [facility] Alcohol, Blood (Medical)-Ser umon 04-22-2024 SERUM ETOH 91.6 mg/dL High <=10.0 [facility] Comment on above: Result Comment: This test is for medical purposes only. The legaldefinition of intoxication varies according to local law. Performed By: #### L 501.9100 ####[facility] [address] [place], [address] Basic Metabolic Profile (BMP )on 04-22-2024 BUN/CRE 16.9 RATIO Normal 10-20 [facility] Comment on above: Performed By: #### L 500.3400, L100.0100, L500.2500, L501.2450, L501.4021 ####[facility] [address] [place], [address] Calcium [Mass/Vol] 9.2 mg/dL Normal 7.6-11.0 [facility] Comment on above: Performed By: #### L 500.3400, L100.0100, L500.2500, L501.2450, L501.4021 ####[facility] [address] [place], [address] Chloride [Moles/Vol] 99 mmol/L Normal 98-108 [facility] Comment on above: Performed By: #### L 500.3400, L100.0100, L500.2500, L501.2450, L501.4021 ####[facility] [address] [place], [address] CO2 [Moles/Vol] 25.2 mmol/L Normal 21.0-32.0 [facility] Comment on above: Performed By: #### L 500.3400, L100.0100, L500.2500, L501.2450, L501.4021 ####[facility] [address] [place], [address] Creatinine [Mass/Vol] 0.93 mg/dL Normal 0.70-1.20 [facility] Comment on above: Performed By: #### L 500.3400, L100.0100, L500.2500, L501.2450, L501.4021 ####[facility] [address] [place], [address] ECRCL 86.05 ml/min Normal 50-250 [facility] Comment on above: Performed By: #### L 500.3400, L100.0100, L500.2500, L501.2450, L501.4021 ####[place] [facility] [address] [place], [address] GAP 14 Normal 5-15 [facility] Comment on above: Performed By: #### L 500.3400, L100.0100, L500.2500, L501.2450, L501.4021 ####[facility] [address] [place], [address] GFR/1.73 sq M.predicted among non-blacks MDRD (S/P/Bld) [Vol rate/Area] 86 mL/min/{1.73_m2} Normal >60 [facility] Comment on above: Result Comment: mL/m in/1.73m2 CKD-EPI Creatinine Equation (2020) Performed By: #### L 500.3400, L100.0100, L500.2500, L501.2450, L501.4021 ####[facility] [address] [place], [address] Glucose [Mass/Vol] 79 mg/dL Normal 70-99 [facility] Comment on above: Performed By: #### L 500.3400, L100.0100, L500.2500, L501.2450, L501.4021 ####[facility] [address] [place], [address] Potassium [Moles/Vol] 4.3 mmol/L Normal 3.3-5.1 [facility] Comment on above: Performed By: #### L 500.3400, L100.0100, L500.2500, L501.2450, L501.4021 ####[facility] [address] [place], [address] Sodium [Moles/Vol] 138 mmol/L Normal 133-145 [facility] Comment on above: Performed By: #### L 500.3400, L100.0100, L500.2500, L501.2450, L501.4021 ####[facility] [address] [place], [address] Urea nitrogen [Mass/Vol] 16 mg/dL Normal 4-19 [facility] Comment on above: Performed By: #### L 500.3400, L100.0100, L500.2500, L501.2450, L501.4021 ####[facility] [address] [place], [address] Brain/Head without Contrasto n 04-22-2024 Brain/Head without Contrast Normal [facility] CBC W/Diff, Automatedon 04-07 Absolute Lymph 1.32 X10 3/uL Normal 0.83-4.51 [facility] Comment on above: Performed By: #### L 500.3400, L100.0100, L500.2500, L501.2450, L501.4021 ####[facility] [address] [place], [address] Absolute Neut 12.2 X10 3/uL High 2.0-7.7 [facility] Comment on above: Performed By: #### L 500.3400, L100.0100, L500.2500, L501.2450, L501.4021 ####[facility] [address] [place], [address] Basophils/100 WBC (Bld) 0.2 % Normal 0-1 [facility] Comment on above: Performed By: #### L 500.3400, L100.0100, L500.2500, L501.2450, L501.4021 ####[facility] [address] [place], [address] Eosinophils/100 WBC (Bld) 0.1 % Normal 0-5 [facility] Comment on above: Performed By: #### L 500.3400, L100.0100, L500.2500, L501.2450, L501.4021 ####[facility] [address] [place], [address] Erythrocyte distribution width (RBC) [Ratio] 13.6 % Normal 11.6-14.6 [facility] Comment on above: Performed By: #### L 500.3400, L100.0100, L500.2500, L501.2450, L501.4021 ####[facility] [address] [place], [address] Hematocrit (Bld) [Volume fraction] 42.9 % Normal 40-54 [facility] Comment on above: Performed By: #### L 500.3400, L100.0100, L500.2500, L501.2450, L501.4021 ####[facility] [address] [place], [address] Hemoglobin (Bld) [Mass/Vol] 14.5 g/dL Normal 13.0-16.5 [facility] Comment on above: Performed By: #### L 500.3400, L100.0100, L500.2500, L501.2450, L501.4021 ####[facility] [address] [place], [address] IG% 1.000 High 0.0-0.9 [facility] Comment on above: Result Comment: IG% - Immature Granulocytes (promyelocytes, myelocytes andmetamyelocytes) > 1% indicates that a LEFT SHIFT is Present. Performed By: #### L 500.3400, L100.0100, L500.2500, L501.2450, L501.4021 ####[facility] [address] [place], [address] Lymphocytes/100 WBC (Bld) 9.0 % Low 19-41 [facility] Comment on above: Performed By: #### L 500.3400, L100.0100, L500.2500, L501.2450, L501.4021 ####[facility] [address] [place], [address] MCH (RBC) [Entitic mass] 32.6 pg High 27.0-32.0 [facility] Comment on above: Performed By: #### L 500.3400, L100.0100, L500.2500, L501.2450, L501.4021 ####[facility] [address] [place], [address] MCHC (RBC) [Mass/Vol] 33.8 g/dL Normal 32-36 [facility] Comment on above: Performed By: #### L 500.3400, L100.0100, L500.2500, L501.2450, L501.4021 ####[facility] [address] [place], [address] MCV (RBC) [Entitic vol] 96.4 fL High 80-94 [facility] Comment on above: Performed By: #### L 500.3400, L100.0100, L500.2500, L501.2450, L501.4021 ####[facility] [address] [place], [address] Monocytes/100 WBC (Bld) 7.0 % Normal 0-10 [facility] Comment on above: Performed By: #### L 500.3400, L100.0100, L500.2500, L501.2450, L501.4021 ####[facility] [address] [place], [address] Neutrophils/100 WBC (Bld) 82.7 % High 47-70 [facility] Comment on above: Performed By: #### L 500.3400, L100.0100, L500.2500, L501.2450, L501.4021 ####[facility] [address] [place], [address] Nucleated RBC (Bld) [#/Vol] 0 10*3/uL Normal 0-5 [facility] Comment on above: Performed By: #### L 500.3400, L100.0100, L500.2500, L501.2450, L501.4021 ####[facility] [address] [place], [address] Platelet mean volume (Bld) [Entitic vol] 9.8 fL Normal 6.2-12.0 [facility] Comment on above: Performed By: #### L 500.3400, L100.0100, L500.2500, L501.2450, L501.4021 ####[facility] [address] [place], [address] Platelets (Bld) [#/Vol] 212 10*3/uL Normal 150-450 [facility] Comment on above: Performed By: #### L 500.3400, L100.0100, L500.2500, L501.2450, L501.4021 ####[facility] [address] [place], [address] RBC (Bld) [#/Vol] 4.45 10*6/uL Low 4.6-6.2 [facility] Comment on above: Performed By: #### L 500.3400, L100.0100, L500.2500, L501.2450, L501.4021 ####[facility] [address] [place], [address] RDW SD 48.8 fl High 35.1-43.9 [facility] Comment on above: Performed By: #### L 500.3400, L100.0100, L500.2500, L501.2450, L501.4021 ####[facility] [address] [place], [address] WBC (Bld) [#/Vol] 14.7 10*3/uL High 4.4-11.0 [facility] Comment on above: Performed By: #### L 500.3400, L100.0100, L500.2500, L501.2450, L501.4021 ####[facility] [address] [place], [address] Chest 1 View (Portable)on Chest 1 View (Portable) Normal [facility] Emergency Department Summary on 04-22-2024 Emergency Department Summary Normal [facility] Extremity Lower without Cont raon 04-22-2024 Extremity Lower without Contra Normal [facility] H AND P Exam - Hospitaliston 04-22-2024 H&P Exam - Hospitalist Normal [facility] HIP, UNI W/ Pelvis 2-3 Views on 04-22-2024 HIP, UNI W/ Pelvis 2-3 Views Normal [facility] L499.0042on 04-22-2024 Trop T High Sen 18 ng/L Normal <=22 [facility] Comment on above: Performed By: #### L 499.0042 ####[facility] [address] [place], [address] L501.4021on 04-22-2024 Trop T High Sen 18 ng/L Normal <=22 [facility] Comment on above: Performed By: #### L 500.3400, L100.0100, L500.2500, L501.2450, L501.4021 ####[facility] [address] [place], [address] Lipaseon 04-22-2024 Lipase [Catalytic activity/Vol] 59 U/L Normal 13-75 [facility] Comment on above: Result Comment: Nagi nelson note:LIPASE revised reference range effective 22.New Lipase methodology. Expected to produce lower valuesthan the previous assay method.NEW Reference Range: 13 - 75 U/L Performed By: #### L 500.3400, L100.0100, L500.2500, L501.2450, L501.4021 ####[facility] [address] [place], [address] Liver Profileon 04-22-2024 Albumin [Mass/Vol] 4.2 g/dL Normal 3.4-4.8 [facility] Comment on above: Performed By: #### L 500.3400, L100.0100, L500.2500, L501.2450, L501.4021 ####[facility] [address] [place], [address] ALK PHOS 69 U/L Normal 40-129 [facility] Comment on above: Performed By: #### L 500.3400, L100.0100, L500.2500, L501.2450, L501.4021 ####[facility] [address] [place], [address] ALT [Catalytic activity/Vol] 29 U/L Normal <=46 [facility] Comment on above: Performed By: #### L 500.3400, L100.0100, L500.2500, L501.2450, L501.4021 ####[facility] [address] [place], [address] AST [Catalytic activity/Vol] 33 U/L Normal <=37 [facility] Comment on above: Performed By: #### L 500.3400, L100.0100, L500.2500, L501.2450, L501.4021 ####[facility] [address] [place], [address] Bilirubin [Mass/Vol] 0.56 mg/dL Normal 0.00-1.30 [facility] Comment on above: Performed By: #### L 500.3400, L100.0100, L500.2500, L501.2450, L501.4021 ####[facility] [address] [place], [address] Bilirubin.direct [Mass/Vol] 0.32 mg/dL High 0.00-0.30 [facility] Comment on above: Performed By: #### L 500.3400, L100.0100, L500.2500, L501.2450, L501.4021 ####[facility] [address] [place], [address] Globulin (S) [Mass/Vol] 2.9 g/dL Normal 2.2-4.2 [facility] Comment on above: Performed By: #### L 500.3400, L100.0100, L500.2500, L501.2450, L501.4021 ####[facility] [address] [place], [address] T PROT 7.1 g/dL Normal 5.9-8.4 [facility] Comment on above: Performed By: #### L 500.3400, L100.0100, L500.2500, L501.2450, L501.4021 ####[facility] [address] [place], [address] Lumbar Spine 2 or 3 Viewson 04-22-2024 Lumbar Spine 2 or 3 Views Normal [facility] Prothrombin Time w/INRon INR Coag (PPP) [Relative time] 0.9 {INR} Normal [facility] Comment on above: Performed By: #### L 300.3900 ####[facility] [address] [place], [address] PT Coag (PPP) [Time] 12.3 s Normal 11.7-14.9 [facility] Comment on above: Performed By: #### L 300.3900 ####[facility] [address] [place], [address] Spine Cervical without Contr ason 04-22-2024 Spine Cervical without Contras Normal [facility] CBC W/Diff, Automatedon 01-2 Absolute Lymph 0.78 X10 3/uL Low 0.83-4.51 [facility] Comment on above: Performed By: #### L 100.0100, L500.4050, L501.2450 ####[facility] [address] [place], [address] Absolute Neut 3.2 X10 3/uL Normal 2.0-7.7 [facility] Comment on above: Performed By: #### L 100.0100, L500.4050, L501.2450 ####[facility] [address] [place], [address] Basophils/100 WBC (Bld) 0.7 % Normal 0-1 [facility] Comment on above: Performed By: #### L 100.0100, L500.4050, L501.2450 ####[facility] [address] [place], [address] Eosinophils/100 WBC (Bld) 0.2 % Normal 0-5 [facility] Comment on above: Performed By: #### L 100.0100, L500.4050, L501.2450 ####[facility] [address] [place], [address] Erythrocyte distribution width (RBC) [Ratio] 13.7 % Normal 11.6-14.6 [facility] Comment on above: Performed By: #### L 100.0100, L500.4050, L501.2450 ####[facility] [address] [place], [address] Hematocrit (Bld) [Volume fraction] 44.9 % Normal 40-54 [facility] Comment on above: Performed By: #### L 100.0100, L500.4050, L501.2450 ####[facility] [address] [place], [address] Hemoglobin (Bld) [Mass/Vol] 14.9 g/dL Normal 13.0-16.5 [facility] Comment on above: Performed By: #### L 100.0100, L500.4050, L501.2450 ####[facility] [address] [place], [address] IG% 0.400 Normal 0.0-0.9 [facility] Comment on above: Result Comment: IG% - Immature Granulocytes (promyelocytes, myelocytes andmetamyelocytes) > 1% indicates that a LEFT SHIFT is Present. Performed By: #### L 100.0100, L500.4050, L501.2450 ####[facility] [address] [place], [address] Lymphocytes/100 WBC (Bld) 17.0 % Low 19-41 [facility] Comment on above: Performed By: #### L 100.0100, L500.4050, L501.2450 ####[facility] [address] [place], [address] MCH (RBC) [Entitic mass] 32.0 pg Normal 27.0-32.0 [facility] Comment on above: Performed By: #### L 100.0100, L500.4050, L501.2450 ####[facility] [address] [place], [address] MCHC (RBC) [Mass/Vol] 33.2 g/dL Normal 32-36 [facility] Comment on above: Performed By: #### L 100.0100, L500.4050, L501.2450 ####[facility] [address] [place], [address] MCV (RBC) [Entitic vol] 96.4 fL High 80-94 [facility] Comment on above: Performed By: #### L 100.0100, L500.4050, L501.2450 ####[facility] [address] [place], [address] Monocytes/100 WBC (Bld) 12.4 % High 0-10 [facility] Comment on above: Performed By: #### L 100.0100, L500.4050, L501.2450 ####[facility] [address] [place], [address] Neutrophils/100 WBC (Bld) 69.3 % Normal 47-70 [facility] Comment on above: Performed By: #### L 100.0100, L500.4050, L501.2450 ####[facility] [address] [place], [address] Nucleated RBC (Bld) [#/Vol] 0 10*3/uL Normal 0-5 [facility] Comment on above: Performed By: #### L 100.0100, L500.4050, L501.2450 ####[facility] [address] [place], [address] Platelet mean volume (Bld) [Entitic vol] 9.6 fL Normal 6.2-12.0 [facility] Comment on above: Performed By: #### L 100.0100, L500.4050, L501.2450 ####[facility] [address] [place], [address] Platelets (Bld) [#/Vol] 240 10*3/uL Normal 150-450 [facility] Comment on above: Performed By: #### L 100.0100, L500.4050, L501.2450 ####[facility] [address] [place], [address] RBC (Bld) [#/Vol] 4.66 10*6/uL Normal 4.6-6.2 [facility] Comment on above: Performed By: #### L 100.0100, L500.4050, L501.2450 ####[facility] [address] [place], [address] RDW SD 48.6 fl High 35.1-43.9 [facility] Comment on above: Performed By: #### L 100.0100, L500.4050, L501.2450 ####[facility] [address] [place], [address] WBC (Bld) [#/Vol] 4.6 10*3/uL Normal 4.4-11.0 [facility] Comment on above: Performed By: #### L 100.0100, L500.4050, L501.2450 ####[facility] [address] [place], [address] Comprehensive Metabolic Prof ilon 03-07-2024 Albumin [Mass/Vol] 3.9 g/dL Normal 3.2-5.0 [facility] Comment on above: Performed By: #### L 100.0100, L500.4050, L501.2450 ####[facility] [address] [place], [address] Albumin/Globulin [Mass ratio] 0.9 {ratio} Normal 0.9-2.4 [facility] Comment on above: Performed By: #### L 100.0100, L500.4050, L501.2450 ####[facility] [address] [place], [address] ALK P 77 U/L Normal 45-117 [facility] Comment on above: Performed By: #### L 100.0100, L500.4050, L501.2450 ####[facility] [address] [place], [address] ALT [Catalytic activity/Vol] 56 U/L Normal 16-61 [facility] Comment on above: Performed By: #### L 100.0100, L500.4050, L501.2450 ####[facility] [address] [place], [address] AST [Catalytic activity/Vol] 67 U/L High 15-37 [facility] Comment on above: Performed By: #### L 100.0100, L500.4050, L501.2450 ####[facility] [address] [place], [address] Bilirubin [Mass/Vol] 1.10 mg/dL High 0.20-1.00 [facility] Comment on above: Result Comment: For patients on eltrombopag therapy, use of Dimension Lorida TBIL is not recommended. Performed By: #### L 100.0100, L500.4050, L5.2450 ####[facility] [address] [place], [address] BUN/CRE 8.1 RATIO Low 10-20 [facility] Comment on above: Performed By: #### L 100.0100, L500.4050, L50 ####[facility] [address] [place], [address] CA,Total 10.2 mg/dL High 8.5-10.1 [facility] Comment on above: Performed By: #### L 100.0100, L500.4050, L501.2450 ####[facility] [address] [place], [address] Chloride [Moles/Vol] 95 mmol/L Low 98-107 [facility] Comment on above: Performed By: #### L 100.0100, L500.4050, L501.2450 ####[facility] [address] [place], [address] CO2 [Moles/Vol] 34.0 mmol/L High 21.0-32.0 [facility] Comment on above: Performed By: #### L 100.0100, L500.4050, L5.2450 ####[facility] [address] [place], [address] Creatinine [Mass/Vol] 0.99 mg/dL Normal 0.70-1.30 [facility] Comment on above: Result Comment: The validity of the calculated GFR GFRAA in patients over70 years has not been determined. Clinical correlation isessential. Performed By: #### L 100.0100, L500.4050, L501.2450 ####[facility] [address] [place], [address] ECRCL 80.87 ml/min Normal [facility] Comment on above: Performed By: #### L 100.0100, L500.4050, L501.2450 ####[facility] [address] [place], [address] EST GFR - AA 94 mL/min Normal >60 [facility] Comment on above: Result Comment: Afri can [place] GFR Calc Performed By: #### L 100.0100, L500.4050, L501.2450 ####[facility] [address] [place], [address] GAP 6 Normal 5-15 [facility] Comment on above: Performed By: #### L 100.0100, L500.4050, L501.2450 ####[facility] [address] [place], [address] GFR/1.73 sq M.predicted among non-blacks MDRD (S/P/Bld) [Vol rate/Area] 78 mL/min/{1.73_m2} Normal >60 [facility] Comment on above: Result Comment: Non- GFR Calc Performed By: #### L 100.0100, L500.4050, L501.2450 ####[facility] [address] [place], [address] Globulin (S) [Mass/Vol] 4.2 g/dL Normal 2.2-4.2 [facility] Comment on above: Performed By: #### L 100.0100, L500.4050, L501.2450 ####[facility] [address] [place], [address] Glucose [Mass/Vol] 101 mg/dL Normal 74-106 [facility] Comment on above: Result Comment: Fast ing Glucose result from 100 to 125 mg/dLsuggests IMPAIRED HOMEOSTASIS per A.D.A. criteria. Performed By: #### L 100.0100, L500.4050, L501.2450 ####[facility] [address] [place], [address] Potassium [Moles/Vol] 3.7 mmol/L Normal 3.5-5.1 [facility] Comment on above: Performed By: #### L 100.0100, L500.4050, L501.2450 ####[facility] [address] [place], [address] Sodium [Moles/Vol] 135 mmol/L Low 136-145 [facility] Comment on above: Performed By: #### L 100.0100, L500.4050, L501.2450 ####[facility] [address] [place], [address] T PROT 8.1 g/dL Normal 6.4-8.2 [facility] Comment on above: Performed By: #### L 100.0100, L500.4050, L501.2450 ####[facility] [address] [place], [address] Urea nitrogen [Mass/Vol] 8 mg/dL Normal 7-18 [facility] Comment on above: Performed By: #### L 100.0100, L500.4050, L501.2450 ####[facility] [address] [place], [address] Emergency Department Summary on 03-07-2024 Emergency Department Summary Normal [facility] Lipaseon 03-07-2024 Lipase [Catalytic activity/Vol] 58 U/L Normal 13-75 [facility] Comment on above: Result Comment: Nagi nelson note:LIPASE revised reference range effective 22.New Lipase methodology. Expected to produce lower valuesthan the previous assay method.NEW Reference Range: 13 - 75 U/L Performed By: #### L 100.0100, L500.4050, L501.2450 ####[facility] [address] [place], [address] CBC W/Diff, Automatedon 02-08 Absolute Lymph 1.18 X10 3/uL Normal 0.83-4.51 [facility] Comment on above: Performed By: #### L 100.0100 ####[facility] [address] [place], [address] Absolute Neut 2.0 X10 3/uL Normal 2.0-7.7 [facility] Comment on above: Performed By: #### L 100.0100 ####[facility] [address] [place], [address] Basophils/100 WBC (Bld) 1.2 % High 0-1 [facility] Comment on above: Performed By: #### L 100.0100 ####[facility] [address] [place], [address] Eosinophils/100 WBC (Bld) 2.1 % Normal 0-5 [facility] Comment on above: Performed By: #### L 100.0100 ####[facility] [address] [place], [address] Erythrocyte distribution width (RBC) [Ratio] 13.8 % Normal 11.6-14.6 [facility] Comment on above: Performed By: #### L 100.0100 ####[facility] [address] [place], [address] Hematocrit (Bld) [Volume fraction] 42.2 % Normal 40-54 [facility] Comment on above: Performed By: #### L 100.0100 ####[facility] [address] [place], [address] Hemoglobin (Bld) [Mass/Vol] 13.8 g/dL Normal 13.0-16.5 [facility] Comment on above: Performed By: #### L 100.0100 ####[facility] [address] [place], [address] IG% 0.000 Normal 0.0-0.9 [facility] Comment on above: Result Comment: IG% - Immature Granulocytes (promyelocytes, myelocytes andmetamyelocytes) > 1% indicates that a LEFT SHIFT is Present. Performed By: #### L 100.0100 ####[facility] [address] [place], [address] Lymphocytes/100 WBC (Bld) 28.2 % Normal 19-41 [facility] Comment on above: Performed By: #### L 100.0100 ####[facility] [address] [place], [address] MCH (RBC) [Entitic mass] 32.9 pg High 27.0-32.0 [facility] Comment on above: Performed By: #### L 100.0100 ####[facility] [address] [place], [address] MCHC (RBC) [Mass/Vol] 32.7 g/dL Normal 32-36 [facility] Comment on above: Performed By: #### L 100.0100 ####[facility] [address] [place], [address] MCV (RBC) [Entitic vol] 100.5 fL High 80-94 [facility] Comment on above: Performed By: #### L 100.0100 ####[facility] [address] [place], [address] Monocytes/100 WBC (Bld) 20.8 % High 0-10 [facility] Comment on above: Performed By: #### L 100.0100 ####[facility] [address] [place], [address] Neutrophils/100 WBC (Bld) 47.7 % Normal 47-70 [facility] Comment on above: Performed By: #### L 100.0100 ####[facility] [address] [place], [address] Nucleated RBC (Bld) [#/Vol] 0 10*3/uL Normal 0-5 [facility] Comment on above: Performed By: #### L 100.0100 ####[facility] [address] [place], [address] Platelet mean volume (Bld) [Entitic vol] 10.5 fL Normal 6.2-12.0 [facility] Comment on above: Performed By: #### L 100.0100 ####[facility] [address] [place], [address] Platelets (Bld) [#/Vol] 199 10*3/uL Normal 150-450 [facility] Comment on above: Performed By: #### L 100.0100 ####[facility] [address] [place], [address] RBC (Bld) [#/Vol] 4.20 10*6/uL Low 4.6-6.2 [facility] Comment on above: Performed By: #### L 100.0100 ####[facility] [address] [place], [address] RDW SD 50.9 fl High 35.1-43.9 [facility] Comment on above: Performed By: #### L 100.0100 ####[facility] [address] [place], [address] WBC (Bld) [#/Vol] 4.2 10*3/uL Low 4.4-11.0 [facility] Comment on above: Performed By: #### L 100.0100 ####[facility] [address] [place], [address] Basic Metabolic Profile (BMP )on 02-20-2024 BUN/CRE 8.8 RATIO Low 10-20 [facility] Comment on above: Performed By: #### L 500.2500, L100.0100 ####[facility] [address] [place], [address] CA,Total 8.8 mg/dL Normal 8.5-10.1 [facility] Comment on above: Performed By: #### L 500.2500, L100.0100 ####[facility] [address] [place], [address] Chloride [Moles/Vol] 99 mmol/L Normal 98-107 [facility] Comment on above: Performed By: #### L 500.2500, L100.0100 ####[facility] [address] [place], [address] CO2 [Moles/Vol] 28.0 mmol/L Normal 21.0-32.0 [facility] Comment on above: Performed By: #### L 500.2500, L100.0100 ####[facility] [address] [place], [address] Creatinine [Mass/Vol] 0.80 mg/dL Normal 0.70-1.30 [facility] Comment on above: Result Comment: The validity of the calculated GFR GFRAA in patients over70 years has not been determined. Clinical correlation isessential. Performed By: #### L 500.2500, L100.0100 ####[facility] [address] [place], [address] ECRCL 103.48 ml/min Normal [facility] Comment on above: Performed By: #### L 500.2500, L100.0100 ####[facility] [address] [place], [address] EST GFR - AA 122 mL/min Normal >60 [facility] Comment on above: Result Comment: Afri can [place] GFR Calc Performed By: #### L 500.2500, L100.0100 ####[facility] [address] [place], [address] GAP 11 Normal 5-15 [facility] Comment on above: Performed By: #### L 500.2500, L100.0100 ####[facility] [address] [place], [address] GFR/1.73 sq M.predicted among non-blacks MDRD (S/P/Bld) [Vol rate/Area] 101 mL/min/{1.73_m2} Normal >60 [facility] Comment on above: Result Comment: Non- GFR Calc Performed By: #### L 500.2500, L100.0100 ####[facility] [address] [place], [address] Glucose [Mass/Vol] 80 mg/dL Normal 74-106 [facility] Comment on above: Performed By: #### L 500.2500, L100.0100 ####[facility] [address] [place], [address] Potassium [Moles/Vol] 3.8 mmol/L Normal 3.5-5.1 [facility] Comment on above: Performed By: #### L 500.2500, L100.0100 ####[facility] [address] [place], [address] Sodium [Moles/Vol] 138 mmol/L Normal 136-145 [facility] Comment on above: Performed By: #### L 500.2500, L100.0100 ####[facility] [address] [place], [address] Urea nitrogen [Mass/Vol] 7 mg/dL Normal 7-18 [facility] Comment on above: Performed By: #### L 500.2500, L100.0100 ####[facility] [address] [place], [address] CBC W/Diff, Automatedon 02-07 Absolute Lymph 1.34 X10 3/uL Normal 0.83-4.51 [facility] Comment on above: Performed By: #### L 500.2500, L100.0100 ####[facility] [address] [place], [address] Absolute Neut 3.0 X10 3/uL Normal 2.0-7.7 [facility] Comment on above: Performed By: #### L 500.2500, L100.0100 ####[facility] [address] [place], [address] Basophils/100 WBC (Bld) 0.4 % Normal 0-1 [facility] Comment on above: Performed By: #### L 500.2500, L100.0100 ####[facility] [address] [place], [address] Eosinophils/100 WBC (Bld) 2.0 % Normal 0-5 [facility] Comment on above: Performed By: #### L 500.2500, L100.0100 ####[facility] [address] [place], [address] Erythrocyte distribution width (RBC) [Ratio] 14.2 % Normal 11.6-14.6 [facility] Comment on above: Performed By: #### L 500.2500, L100.0100 ####[facility] [address] [place], [address] Hematocrit (Bld) [Volume fraction] 41.0 % Normal 40-54 [facility] Comment on above: Performed By: #### L 500.2500, L100.0100 ####[facility] [address] [place], [address] Hemoglobin (Bld) [Mass/Vol] 13.7 g/dL Normal 13.0-16.5 [facility] Comment on above: Performed By: #### L 500.2500, L100.0100 ####[facility] [address] [place], [address] IG% 0.400 Normal 0.0-0.9 [facility] Comment on above: Result Comment: IG% - Immature Granulocytes (promyelocytes, myelocytes andmetamyelocytes) > 1% indicates that a LEFT SHIFT is Present. Performed By: #### L 500.2500, L100.0100 ####[facility] [address] [place], [address] Lymphocytes/100 WBC (Bld) 26.2 % Normal 19-41 [facility] Comment on above: Performed By: #### L 500.2500, L100.0100 ####[facility] [address] [place], [address] MCH (RBC) [Entitic mass] 32.9 pg High 27.0-32.0 [facility] Comment on above: Performed By: #### L 500.2500, L100.0100 ####[facility] [address] [place], [address] MCHC (RBC) [Mass/Vol] 33.4 g/dL Normal 32-36 [facility] Comment on above: Performed By: #### L 500.2500, L100.0100 ####[facility] [address] [place], [address] MCV (RBC) [Entitic vol] 98.6 fL High 80-94 [facility] Comment on above: Performed By: #### L 500.2500, L100.0100 ####[facility] [address] [place], [address] Monocytes/100 WBC (Bld) 12.3 % High 0-10 [facility] Comment on above: Performed By: #### L 500.2500, L100.0100 ####[facility] [address] [place], [address] Neutrophils/100 WBC (Bld) 58.7 % Normal 47-70 [facility] Comment on above: Performed By: #### L 500.2500, L100.0100 ####[facility] [address] [place], [address] Nucleated RBC (Bld) [#/Vol] 0 10*3/uL Normal 0-5 [facility] Comment on above: Performed By: #### L 500.2500, L100.0100 ####[facility] [address] [place], [address] Platelet mean volume (Bld) [Entitic vol] 9.4 fL Normal 6.2-12.0 [facility] Comment on above: Performed By: #### L 500.2500, L100.0100 ####[facility] [address] [place], [address] Platelets (Bld) [#/Vol] 107 10*3/uL Low 150-450 [facility] Comment on above: Performed By: #### L 500.2500, L100.0100 ####[facility] [address] [place], [address] RBC (Bld) [#/Vol] 4.16 10*6/uL Low 4.6-6.2 [facility] Comment on above: Performed By: #### L 500.2500, L100.0100 ####[facility] [address] [place], [address] RDW SD 50.7 fl High 35.1-43.9 [facility] Comment on above: Performed By: #### L 500.2500, L100.0100 ####[facility] [address] [place], [address] WBC (Bld) [#/Vol] 5.1 10*3/uL Normal 4.4-11.0 [facility] Comment on above: Performed By: #### L 500.2500, L100.0100 ####[facility] [address] [place], [address] Emergency Department Summary on 02-20-2024 Emergency Department Summary Normal [facility] Plastic Surgery Visit Report on 02-03-2024 Plastic Surgery Visit Report Normal [facility] Plastic Surgery Visit Report on 01-27-2024 Plastic Surgery Visit Report Normal [facility] Surgery Specimen Level Ibis 01-27-2024 Surgery Specimen Level IV Normal [facility] Comment on above: Performed By: #### P SUIV ####[facility] [address] [place], [address] Plastic Surgery Visit Report on 12-30-2023 Plastic Surgery Visit Report Normal [facility] 12 Lead EKGon 12-18-2023 12 Lead EKG Normal [facility] CBC W/Diff, Automatedon 11- Absolute Lymph 2.50 X10 3/uL Normal 0.83-4.51 [facility] Comment on above: Performed By: #### L 501.2450, L501.4020, L100.0100, L500.4050 ####[facility] [address] [place], [address] Absolute Neut 3.5 X10 3/uL Normal 2.0-7.7 [facility] Comment on above: Performed By: #### L 501.2450, L501.4020, L100.0100, L500.4050 ####[facility] [address] [place], [address] Basophils/100 WBC (Bld) 0.6 % Normal 0-1 [facility] Comment on above: Performed By: #### L 501.2450, L501.4020, L100.0100, L500.4050 ####[facility] [address] [place], [address] Eosinophils/100 WBC (Bld) 0.7 % Normal 0-5 [facility] Comment on above: Performed By: #### L 501.2450, L501.4020, L100.0100, L500.4050 ####[facility] [address] [place], [address] Erythrocyte distribution width (RBC) [Ratio] 13.4 % Normal 11.6-14.6 [facility] Comment on above: Performed By: #### L 501.2450, L501.4020, L100.0100, L500.4050 ####[facility] [address] [place], [address] Hematocrit (Bld) [Volume fraction] 43.9 % Normal 40-54 [facility] Comment on above: Performed By: #### L 501.2450, L501.4020, L100.0100, L500.4050 ####[facility] [address] [place], [address] Hemoglobin (Bld) [Mass/Vol] 15.1 g/dL Normal 13.0-16.5 [facility] Comment on above: Performed By: #### L 501.2450, L501.4020, L100.0100, L500.4050 ####[facility] [address] [place], [address] IG% 0.300 Normal 0.0-0.9 [facility] Comment on above: Result Comment: IG% - Immature Granulocytes (promyelocytes, myelocytes andmetamyelocytes) > 1% indicates that a LEFT SHIFT is Present. Performed By: #### L 501.2450, L501.4020, L100.0100, L500.4050 ####[facility] [address] [place], [address] Lymphocytes/100 WBC (Bld) 36.9 % Normal 19-41 [facility] Comment on above: Performed By: #### L 501.2450, L501.4020, L100.0100, L500.4050 ####[facility] [address] [place], [address] MCH (RBC) [Entitic mass] 33.8 pg High 27.0-32.0 [facility] Comment on above: Performed By: #### L 501.2450, L501.4020, L100.0100, L500.4050 ####[facility] [address] [place], [address] MCHC (RBC) [Mass/Vol] 34.4 g/dL Normal 32-36 [facility] Comment on above: Performed By: #### L 501.2450, L501.4020, L100.0100, L500.4050 ####[facility] [address] [place], [address] MCV (RBC) [Entitic vol] 98.2 fL High 80-94 [facility] Comment on above: Performed By: #### L 501.2450, L501.4020, L100.0100, L500.4050 ####[facility] [address] [place], [address] Monocytes/100 WBC (Bld) 9.7 % Normal 0-10 [facility] Comment on above: Performed By: #### L 501.2450, L501.4020, L100.0100, L500.4050 ####[facility] [address] [place], [address] Neutrophils/100 WBC (Bld) 51.8 % Normal 47-70 [facility] Comment on above: Performed By: #### L 501.2450, L501.4020, L100.0100, L500.4050 ####[facility] [address] [place], [address] Nucleated RBC (Bld) [#/Vol] 0 10*3/uL Normal 0-5 [facility] Comment on above: Performed By: #### L 501.2450, L501.4020, L100.0100, L500.4050 ####[facility] [address] [place], [address] Platelet mean volume (Bld) [Entitic vol] 9.7 fL Normal 6.2-12.0 [facility] Comment on above: Performed By: #### L 501.2450, L501.4020, L100.0100, L500.4050 ####[facility] [address] [place], [address] Platelets (Bld) [#/Vol] 235 10*3/uL Normal 150-450 [facility] Comment on above: Performed By: #### L 501.2450, L501.4020, L100.0100, L500.4050 ####[facility] [address] [place], [address] RBC (Bld) [#/Vol] 4.47 10*6/uL Low 4.6-6.2 [facility] Comment on above: Performed By: #### L 501.2450, L501.4020, L100.0100, L500.4050 ####[facility] [address] [place], [address] RDW SD 49.0 fl High 35.1-43.9 [facility] Comment on above: Performed By: #### L 501.2450, L501.4020, L100.0100, L500.4050 ####[facility] [address] [place], [address] WBC (Bld) [#/Vol] 6.8 10*3/uL Normal 4.4-11.0 [facility] Comment on above: Performed By: #### L 501.2450, L501.4020, L100.0100, L500.4050 ####[facility] [address] [place], [address] Comprehensive Metabolic Prof ilon 12-18-2023 Albumin [Mass/Vol] 3.6 g/dL Normal 3.2-5.0 [facility] Comment on above: Order Comment: 'TROP ' Serial specimen #1, #2 or #3: 1 Performed By: #### L 501.2450, L501.4020, L100.0100, L500.4050 ####[facility] [address] [place], [address] Albumin/Globulin [Mass ratio] 0.9 {ratio} Normal 0.9-2.4 [facility] Comment on above: Order Comment: 'TROP ' Serial specimen #1, #2 or #3: 1 Performed By: #### L 501.2450, L501.4020, L100.0100, L500.4050 ####[facility] [address] [place], [address] ALK P 74 U/L Normal 45-117 [facility] Comment on above: Order Comment: 'TROP ' Serial specimen #1, #2 or #3: 1 Performed By: #### L 501.2450, L501.4020, L100.0100, L500.4050 ####[facility] [address] [place], [address] ALT [Catalytic activity/Vol] 29 U/L Normal 16-61 [facility] Comment on above: Order Comment: 'TROP ' Serial specimen #1, #2 or #3: 1 Performed By: #### L 501.2450, L501.4020, L100.0100, L500.4050 ####[facility] [address] [place], [address] AST [Catalytic activity/Vol] 41 U/L High 15-37 [facility] Comment on above: Order Comment: 'TROP ' Serial specimen #1, #2 or #3: 1 Performed By: #### L 501.2450, L501.4020, L100.0100, L500.4050 ####[facility] [address] [place], [address] Bilirubin [Mass/Vol] 0.30 mg/dL Normal 0.20-1.00 [facility] Comment on above: Order Comment: 'TROP ' Serial specimen #1, #2 or #3: 1 Result Comment: For patients on eltrombopag therapy, use of Dimension Lorida TBIL is not recommended. Performed By: #### L 501.2450, L501.4020, L100.0100, L500.4050 ####[facility] [address] [place], [address] BUN/CRE 13.9 RATIO Normal 10-20 [facility] Comment on above: Order Comment: 'TROP ' Serial specimen #1, #2 or #3: 1 Performed By: #### L 501.2450, L501.4020, L100.0100, L500.4050 ####[facility] [address] [place], [address] CA,Total 9.2 mg/dL Normal 8.5-10.1 [facility] Comment on above: Order Comment: 'TROP ' Serial specimen #1, #2 or #3: 1 Performed By: #### L 501.2450, L501.4020, L100.0100, L500.4050 ####[facility] [address] [place], [address] Chloride [Moles/Vol] 105 mmol/L Normal 98-107 [facility] Comment on above: Order Comment: 'TROP ' Serial specimen #1, #2 or #3: 1 Performed By: #### L 501.2450, L501.4020, L100.0100, L500.4050 ####[facility] [address] [place], [address] CO2 [Moles/Vol] 25.0 mmol/L Normal 21.0-32.0 [facility] Comment on above: Order Comment: 'TROP ' Serial specimen #1, #2 or #3: 1 Performed By: #### L 501.2450, L501.4020, L100.0100, L500.4050 ####[facility] [address] [place], [address] Creatinine [Mass/Vol] 1.08 mg/dL Normal 0.70-1.30 [facility] Comment on above: Order Comment: 'TROP ' Serial specimen #1, #2 or #3: 1 Result Comment: The validity of the calculated GFR GFRAA in patients over70 years has not been determined. Clinical correlation isessential. Performed By: #### L 501.2450, L501.4020, L100.0100, L500.4050 ####[facility] [address] [place], [address] ECRCL 75.77 ml/min Normal [facility] Comment on above: Order Comment: 'TROP ' Serial specimen #1, #2 or #3: 1 Performed By: #### L 501.2450, L501.4020, L100.0100, L500.4050 ####[facility] [address] [place], [address] EST GFR - AA 86 mL/min Normal >60 [facility] Comment on above: Order Comment: 'TROP ' Serial specimen #1, #2 or #3: 1 Result Comment: Afri can [place] GFR Calc Performed By: #### L 501.2450, L501.4020, L100.0100, L500.4050 ####[facility] [address] [place], [address] GAP 8 Normal 5-15 [facility] Comment on above: Order Comment: 'TROP ' Serial specimen #1, #2 or #3: 1 Performed By: #### L 501.2450, L501.4020, L100.0100, L500.4050 ####[facility] [address] [place], [address] GFR/1.73 sq M.predicted among non-blacks MDRD (S/P/Bld) [Vol rate/Area] 71 mL/min/{1.73_m2} Normal >60 [facility] Comment on above: Order Comment: 'TROP ' Serial specimen #1, #2 or #3: 1 Result Comment: Non- GFR Calc Performed By: #### L 501.2450, L501.4020, L100.0100, L500.4050 ####[facility] [address] [place], [address] Globulin (S) [Mass/Vol] 3.9 g/dL Normal 2.2-4.2 [facility] Comment on above: Order Comment: 'TROP ' Serial specimen #1, #2 or #3: 1 Performed By: #### L 501.2450, L501.4020, L100.0100, L500.4050 ####[facility] [address] [place], [address] Glucose [Mass/Vol] 107 mg/dL High 74-106 [facility] Comment on above: Order Comment: 'TROP ' Serial specimen #1, #2 or #3: 1 Result Comment: Fast ing Glucose result from 100 to 125 mg/dLsuggests IMPAIRED HOMEOSTASIS per A.D.A. criteria. Performed By: #### L 501.2450, L501.4020, L100.0100, L500.4050 ####[facility] [address] [place], [address] Potassium [Moles/Vol] 4.2 mmol/L Normal 3.5-5.1 [facility] Comment on above: Order Comment: 'TROP ' Serial specimen #1, #2 or #3: 1 Performed By: #### L 501.2450, L501.4020, L100.0100, L500.4050 ####[facility] [address] [place], [address] Sodium [Moles/Vol] 138 mmol/L Normal 136-145 [facility] Comment on above: Order Comment: 'TROP ' Serial specimen #1, #2 or #3: 1 Performed By: #### L 501.2450, L501.4020, L100.0100, L500.4050 ####[facility] [address] [place], [address] T PROT 7.5 g/dL Normal 6.4-8.2 [facility] Comment on above: Order Comment: 'TROP ' Serial specimen #1, #2 or #3: 1 Performed By: #### L 501.2450, L501.4020, L100.0100, L500.4050 ####[facility] [address] [place], [address] Urea nitrogen [Mass/Vol] 15 mg/dL Normal 7-18 [facility] Comment on above: Order Comment: 'TROP ' Serial specimen #1, #2 or #3: 1 Performed By: #### L 501.2450, L501.4020, L100.0100, L500.4050 ####[facility] [address] [place], [address] Emergency Department Summary on 12-18-2023 Emergency Department Summary Normal [facility] L501.4020on 12-18-2023 TROPONIN-I HS 14 pg/mL Normal 3.0-78.0 [facility] Comment on above: Order Comment: 'TROP ' Serial specimen #1, #2 or #3: 1 Result Comment: Plea se Note: New Test Units and Gender Specific Reference Ranges. For more information see Policy Stat Procedure Lorida High Sensitivity Troponin (TNIH) and attachments. Performed By: #### L 501.2450, L501.4020, L100.0100, L500.4050 ####[facility] [address] [place], [address] Lipaseon 12-18-2023 Lipase [Catalytic activity/Vol] 58 U/L Normal 13-75 [facility] Comment on above: Order Comment: 'TROP ' Serial specimen #1, #2 or #3: 1 Result Comment: Plea se note:LIPASE revised reference range effective 22.New Lipase methodology. Expected to produce lower valuesthan the previous assay method.NEW Reference Range: 13 - 75 U/L Performed By: #### L 501.2450, L501.4020, L100.0100, L500.4050 ####[facility] [address] [place], [address] Urinalysis, Completeon 12-17 BACTERIA Normal None Seen [facility] Comment on above: Order Comment: CLEAN CATCH Result Comment: PT D ISCHARGED Performed By: #### L 400.0001 ####[facility] [address] [place], [address] BILIRUBIN URINE Normal Negative [facility] Comment on above: Order Comment: CLEAN CATCH Result Comment: PT D ISCHARGED Performed By: #### L 400.0001 ####[facility] [address] [place], [address] Clarity (U) Normal Clear [facility] Comment on above: Order Comment: CLEAN CATCH Result Comment: PT D ISCHARGED Performed By: #### L 400.0001 ####[facility] [address] [place], [address] Color (U) Normal Yellow [facility] Comment on above: Order Comment: CLEAN CATCH Result Comment: PT D ISCHARGED Performed By: #### L 400.0001 ####[facility] [address] [place], [address] EPI,SQUAMOUS Normal 0-5 [facility] Comment on above: Order Comment: CLEAN CATCH Result Comment: PT D ISCHARGED Performed By: #### L 400.0001 ####[facility] [address] [place], [address] GLUCOSE, UR Normal Normal [facility] Comment on above: Order Comment: CLEAN CATCH Result Comment: PT D ISCHARGED Performed By: #### L 400.0001 ####[facility] [address] [place], [address] KETONE UR Normal Negative [facility] Comment on above: Order Comment: CLEAN CATCH Result Comment: PT D ISCHARGED Performed By: #### L 400.0001 ####[facility] [address] [place], [address] LEUK ESTERASE Normal Negative [facility] Comment on above: Order Comment: CLEAN CATCH Result Comment: PT D ISCHARGED Performed By: #### L 400.0001 ####[facility] [address] [place], [address] Mucus Ql (Urine sed) Normal [facility] Comment on above: Order Comment: CLEAN CATCH Result Comment: PT D ISCHARGED Performed By: #### L 400.0001 ####[facility] [address] [place], [address] Nitrite Ql (U) Normal Negative [facility] Comment on above: Order Comment: CLEAN CATCH Result Comment: PT D ISCHARGED Performed By: #### L 400.0001 ####[facility] [address] [place], [address] OCCULT BLOOD-UR Normal Negative [facility] Comment on above: Order Comment: CLEAN CATCH Result Comment: PT D ISCHARGED Performed By: #### L 400.0001 ####[facility] [address] [place], [address] pH UR Normal 5.0 - 8.0 [facility] Comment on above: Order Comment: CLEAN CATCH Result Comment: PT D ISCHARGED Performed By: #### L 400.0001 ####[facility] [address] [place], [address] PROT DIPSTX Normal Negative [facility] Comment on above: Order Comment: CLEAN CATCH Result Comment: PT D ISCHARGED Performed By: #### L 400.0001 ####[facility] [address] [place], [address] RBC Normal 0-5 [facility] Comment on above: Order Comment: CLEAN CATCH Result Comment: PT D ISCHARGED Performed By: #### L 400.0001 ####[facility] [address] [place], [address] SP.GR. DIPSTX Normal 1.002-1.030 [facility] Comment on above: Order Comment: CLEAN CATCH Result Comment: PT D ISCHARGED Performed By: #### L 400.0001 ####[facility] [address] [place], [address] UR Preservative Normal [facility] Comment on above: Order Comment: CLEAN CATCH Result Comment: PT D ISCHARGED Performed By: #### L 400.0001 ####[facility] [address] [place], [address] UROBILI Normal Normal [facility] Comment on above: Order Comment: CLEAN CATCH Result Comment: PT D ISCHARGED Performed By: #### L 400.0001 ####[facility] [address] [place], [address] WBC Normal 0-5 [facility] Comment on above: Order Comment: CLEAN CATCH Result Comment: PT D ISCHARGED Performed By: #### L 400.0001 ####[facility] [address] [place], [address] Lipaseon 12-09-2023 Lipase [Catalytic activity/Vol] 58 U/L Normal 13-75 [facility] Comment on above: Result Comment: Nagi nelson note:LIPASE revised reference range effective 22.New Lipase methodology. Expected to produce lower valuesthan the previous assay method.NEW Reference Range: 13 - 75 U/L Performed By: #### L 501.2450, L500.3400 ####[facility] [address] [place], [address] Liver Profileon 12-09-2023 Albumin [Mass/Vol] 3.5 g/dL Normal 3.2-5.0 [facility] Comment on above: Performed By: #### L 501.2450, L500.3400 ####[facility] [address] [place], [address] ALK P 70 U/L Normal 45-117 [facility] Comment on above: Performed By: #### L 501.2450, L500.3400 ####[facility] [address] [place], [address] ALT [Catalytic activity/Vol] 35 U/L Normal 16-61 [facility] Comment on above: Performed By: #### L 501.2450, L500.3400 ####[facility] [address] [place], [address] AST [Catalytic activity/Vol] 31 U/L Normal 15-37 [facility] Comment on above: Performed By: #### L 501.2450, L500.3400 ####[facility] [address] [place], [address] Bilirubin [Mass/Vol] 0.70 mg/dL Normal 0.20-1.00 [facility] Comment on above: Result Comment: For patients on eltrombopag therapy, use of Dimension Lorida TBIL is not recommended. Performed By: #### L 501.2450, L500.3400 ####[facility] [address] [place], [address] Bilirubin.direct [Mass/Vol] 0.25 mg/dL Normal 0.00-0.30 [facility] Comment on above: Performed By: #### L 501.2450, L500.3400 ####[facility] [address] [place], [address] Globulin (S) [Mass/Vol] 4.0 g/dL Normal 2.2-4.2 [facility] Comment on above: Performed By: #### L 501.2450, L500.3400 ####[facility] [address] [place], [address] T PROT 7.5 g/dL Normal 6.4-8.2 [facility] Comment on above: Performed By: #### L 501.2450, L500.3400 ####[facility] [address] [place], [address] Surgery Specimen Level Ibis 12-09-2023 Surgery Specimen Level IV Normal [facility] Comment on above: Performed By: #### P SUIV ####[facility] [address] [place], [address] Miscellaneous Lab Procedureo n 11-09-2023 [facility] Normal [facility] Comment on above: Order Comment: STOOL CULTURE [id number] CULTURE [id number] Result Comment: Salm onella/Shigella Screen Final Report No Salmonella or Shigella recovered.Campylobacter Culture Final Report No Campylobacter species isolatedE coli Shiga Toxin EIA Final Report Negative [facility] ORIGINAL REPORT ON FILE IN LAB CONTAINS ADDITIONAL TEST SITE INFORMATION. ____ Performed By: #### M 100.7900, M600.5000, L801.1541 ####[facility] [address] [place], [address] Ova and Parasites 8623on OP Normal [facility] Comment on above: Performed By: #### M 100.7900, M600.5000, L801.1541 ####[facility] [address] [place], [address] Abdomen/Pelvis WITH Contrast on 11-03-2023 Abdomen/Pelvis WITH Contrast Normal [facility] CREATININE FINGERSTICKon CREATININE WB < 1.0 Normal 0.70-1.30 [facility] Comment on above: Performed By: #### L 9100.0200 ####[facility] [address] [place], [address] EGFR WB > 60.0000 Normal >60 [facility] Comment on above: Performed By: #### L 9100.0200 ####[facility] [address] [place], [address] Stool Occult Blood iFOBon STOB Negative Normal [facility] Comment on above: Performed By: #### M 100.7900, M600.5000, L801.1541 ####[facility] [address] [place], [address] PSA,Total - Annual Screenon 10-25-2023 PSA,TOT SCREEN 0.83 ng/mL Normal 0.00-4.00 [facility] Comment on above: Result Comment: This test was performed using the TPSA assay method for the[facility] chemistry system. Values obtained with differentassay methods cannot be used interchangably.When changing PSA assays in the course of monitoring apatient, additional sequential testing should be carriedout to confirm baseline values. Performed By: #### L 501.9910 ####[facility] [address] [place], [address] PROGRESSon 04-01-2018 Protein mass conc HNO ID: [id number] Author: Ki Galaviz Service: (none) Author Type: Physician Type: Progress Notes Filed: 04/01/2018 9:54 AM Note Text: OPERATIVE NOTATION FOR [facility] [place] SURGICAL PROCEDURE. March 17, 2018 Brian Segura 1950 [id number] male PROCEDURE: EGD WITH BIOPSY - [id number] SURGEON: Baljit Galaviz M.D. FACS [employer] OPERATOR: None DEPT: WQ PROVIDER: [id number] Galaviz MD POS: [id number] DIAGNOSIS: (K92.0) Hematemesis, presence of nausea not [...] dictated in the [facility] dictation system. Ki Galaviz MD [facility] Encounters Encounter Date Encounter Type Care Provider Facility Start: 10-15-2024 End: 10-15-2024 Emergency department patient visit [facility] Facility:[facility] Start: 10-13-2024 End: 10-13-2024 Emergency department patient visit [facility] Facility:[facility] Start: 10-13-2024 End: 10-13-2024 Emergency department patient visit [facility] Facility:[facility] Start: 10-01-2024 End: 10-01-2024 Emergency department patient visit [facility] Facility:[facility] Start: 07-25-2024 End: 07-25-2024 Emergency department patient visit [facility] Facility:[facility] Start: 07-14-2024 End: 07-14-2024 Emergency department patient visit [facility] Facility:[facility] Start: 07-10-2024 End: 07-10-2024 ambulatory [facility] Facility:[facility] Start: 07-05-2024 End: 07-05-2024 ambulatory Alfred Bailey Facility:[facility] Start: 06-21-2024 End: 06-21-2024 ambulatory Alfred Bailey Facility:[facility] Start: 06-07-2024 End: 06-07-2024 Emergency department patient visit Alfred Bailey Facility:[facility] Start: 05-28-2024 End: 05-28-2024 Emergency department patient visit Alfred Bailey Facility:[facility] Start: 05-26-2024 End: 05-26-2024 Emergency department patient visit Alfred Bailey Facility:[facility] Start: 05-21-2024 ambulatory Alfred Bailey Facility: [facility] Start: 04-30-2024 ambulatory Alfred Bailey Facility: [facility] Start: 04-22-2024 End: 04-27-2024 ambulatory Alfred Bailey Facility:[facility] Start: 03-07-2024 End: 03-07-2024 Emergency department patient visit Alfred Bailey Facility:[facility] Start: 02-29-2024 End: 02-29-2024 ambulatory Alfred Bailey Facility:[facility] Start: 02-20-2024 End: 02-20-2024 Emergency department patient visit Alfred Bailey Facility:[facility] Start: 02-03-2024 End: 02-03-2024 ambulatory Alfred Bailey Facility:[facility] Start: 01-27-2024 End: 01-27-2024 ambulatory Alfred Bailey Facility:[facility] Start: 01-27-2024 End: 01-27-2024 ambulatory Alfred CornejoLynn Facility:[facility] Start: 12-30-2023 End: 12-30-2023 ambulatory Alfred Bailey Facility:[facility] Start: 12-18-2023 End: 12-19-2023 Emergency department patient visit Alfred Bailey Facility:[facility] Start: 12-09-2023 End: 12-09-2023 ambulatory Alfred Lynn Facility:[facility] Start: 11-03-2023 End: 11-03-2023 ambulatory Alfred Lynn Facility:[facility] Start: 10-28-2023 End: 10-28-2023 ambulatory Alfred Bailey Facility:[facility] Start: 10-25-2023 End: 10-25-2023 ambulatory Alfred Bailey Facility:[facility] Start: 04-13-2023 End: 04-14-[address] WILLIE BLANK MD Facility: Start: 04-13-2023 End: 04-13-[address] WILLIE BLANK MD [facility] Procedures Date Procedure Procedure Detail [...] Immunization Date Immunization Notes Care Provider [facility] 07-10-2013 pneumococcal polysaccharide vaccine, [address] WILLIE BLANK MD [facility] Payers Date Payer Category Payer Self-pay 2023 Unknown [id number] 1950 Unknown [id number] 2.16.8 40.1.814614.3.579.2.627 Unknown [id number] 2.16.8 40.1.855838.3.579.2.462 Unknown [id number] 2.16.8 40.1.318528.3.579.2.462 Unknown [id number] 2.16.8 40.1.850350.3.579.2.462 Unknown [id number] 2.16.8 40.1.058510.3.579.2.462 Unknown [id number] 2.16.8 40.1.769221.3.579.2.462 Unknown [id number] 2.16.8 40.1.791797.3.579.2.462 Unknown [id number] 2.16.8 40.1.799842.3.579.2.462 Unknown [id number] 2.16.8 40.1.850303.3.579.2.462 Unknown [id number] 2.16.8 40.1.787661.3.579.2.462 Unknown [id number] 2.16.8 40.1.012275.3.579.2.462 Unknown [id number] 2.16.8 40.1.948476.3.579.2.462 Unknown [id number] 2.16.8 40.1.213227.3.579.2.462 Unknown [id number] 2.16.8 40.1.440056.3.579.2.462 Unknown [id number] 2.16.8 40.1.962304.3.579.2.462 Unknown [id number] 2.16.8 40.1.886724.3.579.2.462 Unknown [id number] 2.16.8 40.1.472414.3.579.2.462 Unknown [id number] 2.16.8 40.1.530666.3.579.2.462 Unknown [id number] 2.16.8 40.1.387342.3.579.2.462 Unknown [id number] 2.16.8 40.1.709727.3.579.2.462 Unknown [id number] 2.16.8 40.1.413025.3.579.2.462 Unknown [id number] 2.16.8 40.1.341112.3.579.2.462 Unknown [id number] 2.16.8 40.1.475993.3.579.2.462 Unknown [id number] 2.16.8 40.1.072241.3.579.2.462 Unknown [id number] 2.16.8 40.1.493588.3.579.2.462 Unknown [id number] 2.16.8 40.1.579654.3.579.2.462 Unknown [id number] 2.16.8 40.1.297793.3.579.2.462 Unknown [id number] 2.16.8 40.1.196423.3.579.2.462 Unknown [id number] 2.16.8 40.1.251006.3.579.2.462 Unknown [id number] 2.16.8 40.1.601151.3.579.2.462 Unknown [id number] 2.16.8 40.1.377244.3.579.2.462 Unknown [id number] 2.16.8 40.1.963847.3.579.2.462 Unknown [id number] 2.16.8 40.1.290625.3.579.2.462 Unknown [id number] 2.16.8 40.1.178711.3.579.2.462 Unknown [id number] 2.16.8 40.1.180602.3.579.2.462 Social History Date Type Detail Facility Tobacco smoking status Ex-smoker (finding ) [facility] Sex Assigned At Male [facility] Discharge summary note 04-27-2024 Note Date & Type Note Facility 04-27-2024 Note [facility] Consultation note 04-24-2024 Note Date & Type Note Facility 04-24-2024 Note [facility] Clinical Note 04-13-2023 Note Date & Type Note Facility 04-13-2023 Note Sinus rhythm Probable left atrial enlargement Anteroseptal infarct, age indeterminate Electronic Signature: NEVILLE UNDERWOOD MD 04/13/2023 16:41:28 [facility] Evaluation + Plan note Note Date & Type Note Facility Evaluation + Plan note No data available for this section [facility] Discharge instructions Note Date & Type Note Facility Hospital Discharge instructions No data available for this section [facility] Progress note Note Date & Type Note Facility Progress note No data available for this section [facility] Summary Purpose Family History No Family History [...] [facility] [place] SURGICAL [facility]EDURE. March 17, 2018 Brian Segura 1950 [id number] male PROCEDURE: EGD WITH BIOPSY - [id number] SURGEON: Baljit Galaviz M.D. FACS [employer] OPERATOR: None DEPT: WQ PROVIDER: [id number] Galaviz MD POS: [id number] DIAGNOSIS: (K92.0) Hematemesis, presence of nausea not [...] DATE CREATED AUTHOR AUTHOR'S ORGANIZ ATION 04/14/2023 [facility] ([place]) DATE CREATED AUTHOR AUTHOR'S ORGANIZ ATION 10/20/2024 [facility] Patient Care team informatio n (unrecognized section and content) Care Team Personnel Name: KI LANZA JR, MD Member Role: Primary Care Physician Address: Address: [address] [place] [id number] Care Team Related Persons Name: URIEL SEGURA Address: [address] [address] FOR RECORDS PERTAINING TO PATIENTS WHO ARE [...] BE BASED ON THE PRIMARY CLINICAL RECORDS. [facility]. provides no warranty or guarantee of the accuracy or completeness of information in this document.
[2024-11-09 06:42] VITALS: BP 158/79; PULSE 93; RESP 18; O2SAT 96
[2024-11-09] MEDS: DiphenhydrAMINE 25 MG, ChlorproMAZINE 25 MG in 0.9% Normal Saline (100mL Bag) 98.5 ML 200 MG IV (06:55)
--- NOTE | 2024-11-09 07:31 | EX.ED.DYSGE1 ---
HPI History of Present Illness Chief Complaint: Nausea/Vomiting Informant: patient Narrative Narrative: Patient is a 74-year-old male with past medical history of hypertension and COPD and cyclic vomiting syndrome. He was seen a few days ago for similar symptoms and after receiving medication and reported feeling better and was discharged home. Patient states he was better for the past 2 days but that this evening awoke with sensation of nausea. He states that there is been no fevers or chills or known sick contact. He states that there is no precipitating factors such as marijuana use or medication. He reports that if he comes to the hospital and receives medication his symptoms will resolve within a few hours versus lasting days if he tries to let them pass at home. He states that the symptoms of nausea occurred just a few hours prior to arrival and with concern he will need medication presents for evaluation [facility] Medical History Strain of right psoas muscle Acute pain of right hip Fall Alcohol abuse Alcohol withdrawal Basal cell carcinoma of anterior chest Wears glasses Wears dentures Depression Anxiety Alcohol use Arthritis History of renal disease Back pain Injury of head and neck History of ulceration History of IBS History of diverticulitis Gastric reflux CPAP (continuous positive airway pressure) dependence Former smoker COPD (chronic obstructive pulmonary disease) Shortness of breath on exertion History of pain when walking History of edema History of stress test Encounter for screening for COVID-19 Chest wall contusion (~12/18/20) HTN (hypertension) Home Medications ?Medication ?Instructions ?Recorded ?Last Taken ?Type lisinopril 20 mg tablet 20 mg PO BID blood pressure 03/16/18 05/27/24 History pantoprazole 40 mg tablet,delayed 40 mg PO BID reflux 09/07/19 05/27/24 History release albuterol sulfate 2.5 mg/3 mL 2.5 mg inhalation Q6H PRN 05/18/23 Unknown History (0.083 %) solution for nebulization shortness of breath or wheezing fluvoxamine 100 mg tablet 100 mg PO QHS 05/18/23 05/27/24 History amlodipine 5 mg tablet 5 mg PO DAILY 05/24/23 05/27/24 History acetaminophen 325 mg tablet 650 mg (2 x 325 mg) PO Q4H PRN PRN 04/27/24 Unknown Rx Fever, pain 1-11/16 #0 tabs calcium carbonate 500 mg (2.5 x 200 mg calcium (500 04/27/24 Unknown Rx mg)) PO TIDCM PRN DYSPEPSIA/INDIGESTION #0 tabs lorazepam 0.5 mg tablet 0.5 mg PO Q6H PRN PRN Anxiety #8 04/27/24 05/27/24 Rx tabs sennosides 8.6 mg-docusate sodium 1 tab PO DAILY #1 TAB 04/27/24 Unknown Rx 50 mg tablet (Stimulant Laxative Plus) doxepin 10 mg capsule 10 - 20 mg PO QHS PRN PRN insomnia 05/28/24 05/27/24 History ondansetron 4 mg disintegrating 4 mg PO Q6H PRN nausea and 10/15/24 Unknown Rx tablet vomiting #20 tabs metoclopramide HCl 10 mg tablet 10 mg PO Q6H PRN PRN nausea and 11/09/24 Unknown History vomiting promethazine 25 mg tablet 25 mg PO TID PRN PRN nausea and 11/09/24 Unknown History vomiting tamsulosin 0.4 mg capsule 0.4 mg PO QHS 11/09/24 Unknown History Allergy/AdvReac Type Severity Reaction Status Date / Time amoxicillin Allergy doesnt Verified 11/09/24 04:43 rememeber fluoxetine (From Prozac) AdvReac Other Verified 11/09/24 04:43 Family History Mother Myocardial infarction Hypertension Father Cancer Hypertension Surgical History Hx of colonoscopy Hx of blepharoplasty Hx of esophagogastroduodenoscopy History of eye surgery Social History household members: none Smoking Status: Former smoker how long ago did patient quit smoking: quit 20 yr ago alcohol intake: current Alcohol type: hard liquor substance use type: does not use additional social history: personal hx of PEs ROS ROS ED Constitutional Constitutional ED: Denies chills or fever(s) ENT ENT ED: Denies sore throat Cardiovascular Cardiovascular: Denies chest pain Respiratory/Chest Respiratory/Chest: Denies cough or dyspnea Gastrointestinal Gastrointestinal: Reports nausea; Denies abdominal pain, diarrhea or vomiting Musculoskeletal Musculoskeletal: Denies back pain or myalgias Integumentary Denies rash Neurologic Neurologic: Denies headache(s) Hematologic/Lymphatic Hematologic/Lymphatic: Denies easy bleeding or easy bruising EXAM Physical Exam Const Vital Signs: 11/09/24 04:43 11/09/24 06:42 11/09/24 07:55 Temperature 98.2 F 97.7 F L Temperature Source Oral Pulse Rate 100 93 93 Respiratory Rate 18 18 18 Blood Pressure 161/81 H 158/79 H 158/79 H Blood Pressure Mean 107 105 105 Pulse Ox 97 96 96 Oxygen Delivery Method Room Air Room Air Positive well nourished, well developed and obese General Appearance ED: well developed; Negative for pallor Nutritional Appearance: obese HEENT HEENT Narrative: Normocephalic atraumatic No tongue or lip swelling no oral lesions no airway edema or compromise Mucous membranes are slightly dry and tacky Eyes PERRL and EOMs intact bilaterally General Eye ED: Negative for scleral icterus Neck supple Resp normal respiratory effort Resp Narrative: Breath sounds are diminished throughout with faint rhonchi and expiratory wheeze in the lower lobes consistent with history of COPD but no signs of respiratory distress Cardio regular rate and regular rhythm GI non-tender, non-distended and no masses GI Narrative: Abdomen is soft nontender nondistended with hyperactive bowel sounds. No voluntary guarding or rigidity or pulsatile mass. No peritoneal signs. No increased tympany. Auscultation: hyperactive bowel sounds Palpation: soft Extremity normal to inspection Neuro oriented x3, CN's II-XII intact bilaterally and no sensory deficits noted Sensorium / Orientation: alert Motor Exam: strength 5/5 throughout Psych mental status grossly normal Skin no rashes or lesions noted and No skin turgor normal Skin Narrative: Skin turgor is slightly increased General Skin Exam: Negative for jaundice or pallor MDM MDM MDM Narrative Medical decision making narrative: Patient presented to the ER with stable vitals and a soft nonsurgical abdomen. However as he was seen just a few days ago for the same issues I did elect to perform basic laboratory studies and acute abdominal series in order to check for acute kidney injury versus [place] abnormality versus pancreatitis versus potential small bowel obstruction or perforation or ileus. Labs revealed no clinically significant findings and x-ray revealed no sign of perforation or obstruction. He was given his reported cocktail which has typically helped his symptoms of IV Benadryl Zofran and Ativan. On reevaluation he reports he has had mild symptom improvement but not significant and therefore Thorazine and Benadryl were added. After receiving the second round of medication he had improvement of his symptoms and his vitals remained stable and his abdomen soft and nonsurgical. Therefore at this time as he does not have TOMI pancreatitis clinically significant electrolyte abnormality or signs of obstruction or ileus or perforation I do not feel need for further intervention and he is otherwise safe for discharge History & Record Review Discussion w/independent historian: Patient Lab Data Attestation: I reviewed the patient's lab results. Labs: Laboratory Results - last 24 hr 11/09/24 04:50 WBC 7.5 RBC 4.81 Hgb 15.1 Hct 43.7 MCV 90.9 MCH 31.4 MCHC 34.6 RDW Std Deviation 46.2 H RDW Coeff of [place] 13.8 Plt Count 276 MPV 10.4 Immature Gran % (Auto) 0.500 Neut % (Auto) 55.5 Lymph % (Auto) 30.2 [place] % (Auto) 9.6 Eos % (Auto) 3.7 Baso % (Auto) 0.5 Absolute Neuts (auto) 4.1 Absolute Lymphs (auto) 2.26 Nucleated RBC % 0 Sodium 139 Potassium 4.0 Chloride 101 Carbon Dioxide 23.9 Anion Gap 14 BUN 9 Creatinine 0.81 Estim Creat Clear Calc 95.34 Est GFR (MDRD) Non-Af 91 BUN/Creatinine Ratio 11.4 Glucose 131 H Calcium 9.2 Total Bilirubin 0.40 Direct Bilirubin 0.14 AST 26 ALT 19 Alkaline Phosphatase 81 Total Protein 7.4 Albumin 4.1 Globulin 3.3 Lipase 38 Radiography Diagnostic Testing: Clinical Impression(s) from Imaging Studies Acute Abdomen Series 11/09/24 05:38 IMPRESSION: Negative for acute cardiopulmonary disease. Constipation. Reading Location: [id number] Acute abdominal series as interpreted by the emergency medicine physician reveals a nonspecific nonobstructive bowel gas pattern without perforation and there is mild to moderate constipation noted. Chest x-ray component reveals no acute infiltrate or pneumothorax Discharge Plan Triage Chief Complaint: Nausea/Vomiting ED Provider: Patrice Umaña Dx/Rx/DC Orders Clinical Impression: Cyclic vomiting syndrome, COPD (chronic obstructive pulmonary disease), Hypertension Instructions: ED Cyclic Vomiting Syndrome Prescriptions: No Action amlodipine 5 mg tablet 5 mg PO DAILY lisinopril 20 MG tablet 20 mg PO BID pantoprazole 40 MG tablet 40 mg PO BID ondansetron 4 mg tablet,disintegrating 4 mg PO Q6H PRN (Reason: nausea and vomiting) Qty: 20 0RF albuterol sulfate 2.5 mg /3 mL (0.083 %) solution for nebulization 2.5 mg inhalation Q6H PRN (Reason: shortness of breath or wheezing) fluvoxamine 100 mg tablet 100 mg PO QHS acetaminophen 325 mg Tablet 650 mg PO Q4H PRN PRN (Reason: Fever, pain 1-11/16) Qty: 0 0RF lorazepam 0.5 mg Tablet 0.5 mg PO Q6H PRN PRN (Reason: Anxiety) Qty: 8 0RF calcium carbonate 200 mg calcium (500 mg) Tablet,Chewable 500 mg PO TIDCM PRN (Reason: DYSPEPSIA/INDIGESTION) Qty: 0 0RF sennosides-docusate sodium [Stimulant Laxative Plus] 8.6-50 mg Tablet 1 tab PO DAILY Qty: 1 0RF doxepin 10 mg capsule 10 - 20 mg PO QHS PRN PRN (Reason: insomnia) metoclopramide HCl 10 mg tablet 10 mg PO Q6H PRN PRN (Reason: nausea and vomiting) promethazine 25 mg tablet 25 mg PO TID PRN PRN (Reason: nausea and vomiting) tamsulosin 0.4 mg capsule 0.4 mg PO QHS Primary Care Provider: Alfred Bailey Referrals: Alfred Bailey DO [Primary Care Provider, Family Practice] Activity Restrictions/Additional Instructions: Your workup today revealed no sign of bowel blockage or perforation. Labs revealed no sign of electrolyte abnormality or acute kidney damage. Your history exam and workup is consistent with cyclic vomiting syndrome. Please continue all of your home medications as directed by your doctor and keep yourself well-hydrated. Return to the ER should you have further concerns Print Language: Nepalese Disposition Disposition: Home, Self Care Discharge Date/Time: 11/09/24 07:56
[2024-11-09 07:55] VITALS: BP 158/79; PULSE 93; RESP 18; TEMP 36.5; O2SAT 96
== END 2024-11-09 07:56 | disposition home or self-care (01) ==
PROVIDERS: Emergency Provider Emergency Medicine; PCP Family Medicine; Visit Provider Emergency Medicine
DX: R11.15 Cyclical vomiting syndrome unrelated to migraine (principal); J44.9 Chronic obstructive pulmonary disease, unspecified; Z87.891 Personal history of nicotine dependence; I10 Essential (primary) hypertension; Z99.89 Dependence on other enabling machines and devices; Z79.899 Other long term (current) drug therapy; K21.9 Gastro-esophageal reflux disease without esophagitis; Z85.828 Personal history of other malignant neoplasm of skin; F32.A Depression, unspecified; F41.9 Anxiety disorder, unspecified
CPT/HCPCS: 74022; 80048; 80076; 83690; 85025; 96361; 96365; 96375; 99282; A4216; J2405

== ENCOUNTER 2025-01-13 01:39 | Emergency (ER) | payer MEDICARE, SELFPAY ==
[2025-01-13 01:41] VITALS: BP 151/94; PULSE 100; RESP 24; TEMP 36.9; O2SAT 100; BMI 38.5
--- OUTSIDE RECORDS SUMMARY | 2025-01-13 02:27 | XMS RPT_ITS | CCD ---
Author Organization [facility] CliniSyma Care Team Providers Care Welfare Administrator Name Role Phone POOL MISTRY, DR KI Nelson JR Primary Care Physician ABHAY MISTRY, DR JASSON WHITE Attending Lawrence LANZA MD, DR KI Nelson JR Primary Care Unascott Bailey, Alfred Primary Care Unavailable Vick Ruiz Attending Unavailable Lynn, Alfred Primary Care Unavailable Bogdan Grover Attending Unavailable Vishnu Doyle Attending Unavailable Vishnu Doyle Referring Unavailable Lynn, Alfred Primary Care Unavailable Brock Garcia Attending Unavailabl e Lynn, Alfred Primary Care Unavailable Patrice Umaña Attending Unavailable Lynn, Alfred Primary Care Unavailable Lynn, Alfred Primary Care Unavailable Lynn, Alfred Referring Unavailable LynnAlfred Attending Unavailable Patrice Umaña Attending Unavailable Lynn, Alfred Primary Care Unavailable Lynn, Alfred Primary Care Unavailable Lynn, Alfred Attending Unavailable Lynn, Alfred Attending Unavailable Lynn, Alfred Referring Unavailable Lynn, Alfred Primary Care Unavailable Michele Dennison Attending Unavailable Lynn, Alfred Primary Care Unavailable Patrice Umaña Attending Unavailable Lynn, Alfred Primary Care Unavailable Lynn, Alfred Primary Care Unavailable Torey Multani Attending Unavailable Chino Jaimes Attending Unavailable Lynn, Alfred Primary Care Unavailable Lynn, Alfred Primary Care Unavailable Vick Ruiz Attending Unavailable Brock Garcia Referring UnavailBrock Ortiz Attending Unavailabl e Lynn, Alfred Primary Care Unavailable Lynn, Alfred Primary Care Unavailable Guicho Omalley Attending Unavailable Guicho Omalley Attending Unavailable Lynn, Alfred Primary Care Unavailable Boston Rush Attending Unavailable David Cespedes Admitting Unavailable David Cespedes Consulting Unavailable Lynn, Alfred Primary Care Unavailable TerAlfred viera Referring Unavailable Boston Rush Consulting Unavailable Alfred Grijalva Consulting Unavailable Alfred Grijalva Attending Unavailable Mingo Haddad Attending Unavailable Lynn, Alfred Primary Care Unavailable David Cespedes Consulting Unavailable David Cespedes Admitting Unavailable Lynn, Alfred Primary Care Unavailable Teraylin, Alfred Attending Unavailable Boston Rush Consulting Unavailable Shari MEAD, Romina Attending Unavailable Lynn, Aflred Primary Care Unavailable GuRomina Leija Referring Unavailable Lynn, Alfred Primary Care Unavailable Shari OLSRomina Attending Unavailable Vivek, Vishnu Attending Unavailable Lynn, Alfred Referring Unavailable Lynn, Alfred Primary Care Unavailable Siska, Vishnu Referring Unavailable Sismimi, Vishnu Attending Unavailable Lynn, Alfred Primary Care Unavailable Milena Smith Attending Unavailable Lynn, Alfred Primary Care Unavailable Lynn, Alfred Referring Unavailable DosMilena godfrey Attending Unavailable Lynn, Alfred Primary Care Unavailable Lynn, Alfred Referring Unavailable Lynn, Alfred Primary Care Unavailable Bandar CQ DEVELOPER, Camila Lyn Attending Unavailabl e Alfred Bailey Referring Unavailable David Cespedes Attending Unavailable Allergies Allergy Classification Reported Allergen(s) Allergy Type Date of Onset Reaction(s) Facility (1 source) Amoxicillin; Translations: [amoxicillin] Drug Allergy [facility] (1 source) Amoxicillin Drug Allergy 11-09-2024 [facility] (1 source) FLUoxetine Drug Allergy 11-09-2024 [facility] Medications Current Medications Medication Drug [...] of cervical region] Onset: 07-10-2024 Episodic Other bone disease [...] of pelvic region] Onset: 07-10-2024 Episodic Other non-epithelial cancer of skin (2 sources) Basal cell carcinoma of skin, unspecified; Translations: [Basal cell carcinoma of skin of other part of trunk] Onset: 02-23-2024 Episodic Other non-traumatic joint disorders (1 source) Pain in right hip; Translations: [Pain in right hip] Onset: 05-25-2024 Episodic Spondylosis; intervertebral disc disorders; other back problems (1 source) Radiculopathy, lumbar region; Translations: [Radiculopathy, lumbar region] Onset: 07-10-2024 Episodic Sprains and strains (2 sources) Strain of muscle, fascia and tendon of right hip, initial encounter; Translations: [Strain of muscle, fascia and tendon of right hip, initial encounter] Onset: 05-25-2024 Episodic Results Test Name Value Interpretation Reference Range Facil ity Acute Abdomen Inc Cheston Acute Abdomen Inc Chest Normal [facility] Basic Metabolic Profile (BMP )on 11-09-2024 BUN/CRE 11.4 RATIO Normal - [facility] Comment on above: Performed By: #### L 500.2500, L500.3400, L501.2450, L100.0100 ####[facility] [address] [place], [address] Calcium [Mass/Vol] 9.2 mg/dL Normal 7.6-11.0 [facility] Comment on above: Performed By: #### L 500.2500, L500.3400, L501.2450, L100.0100 ####[facility] [address] [place], [address] Chloride [Moles/Vol] 101 mmol/L Normal 98-108 [facility] Comment on above: Performed By: #### L 500.2500, L500.3400, L501.2450, L100.0100 ####[facility] [address] [place], [address] CO2 [Moles/Vol] 23.9 mmol/L Normal 21.0-32.0 [facility] Comment on above: Performed By: #### L 500.2500, L500.3400, L501.2450, L100.0100 ####[facility] [address] [place], [address] Creatinine [Mass/Vol] 0.81 mg/dL Normal 0.70-1.20 [facility] Comment on above: Performed By: #### L 500.2500, L500.3400, L501.2450, L100.0100 ####[facility] [address] [place], [address] ECRCL 95.34 ml/min Normal 50-250 [facility] Comment on above: Performed By: #### L 500.2500, L500.3400, L501.2450, L100.0100 ####[facility] [address] [place], [address] GAP 14 Normal 5-15 [facility] Comment on above: Performed By: #### L 500.2500, L500.3400, L501.2450, L100.0100 ####[facility] [address] [place], [address] GFR/1.73 sq M.predicted among non-blacks MDRD (S/P/Bld) [Vol rate/Area] 91 mL/min/{1.73_m2} Normal >60 [facility] Comment on above: Result Comment: mL/m in/1.73m2 CKD-EPI Creatinine Equation (2020) Performed By: #### L 500.2500, L500.3400, L501.2450, L100.0100 ####[facility] [address] [place], [address] Glucose [Mass/Vol] 131 mg/dL High 70-99 [facility] Comment on above: Performed By: #### L 500.2500, L500.3400, L501.2450, L100.0100 ####[facility] [address] [place], [address] Potassium [Moles/Vol] 4.0 mmol/L Normal 3.3-5.1 [facility] Comment on above: Result Comment: Hemo lysis present, Results??could be affected.?? Performed By: #### L 500.2500, L500.3400, L501.2450, L100.0100 ####[facility] [address] [place], [address] Sodium [Moles/Vol] 139 mmol/L Normal 133-145 [facility] Comment on above: Performed By: #### L 500.2500, L500.3400, L501.2450, L100.0100 ####[facility] [address] [place], [address] Urea nitrogen [Mass/Vol] 9 mg/dL Normal 4-19 [facility] Comment on above: Performed By: #### L 500.2500, L500.3400, L501.2450, L100.0100 ####[facility] [address] [place], [address] CBC W/Diff, Automatedon 10-0 3-2025 Absolute Lymph 2.26 X10 3/uL Normal 0.83-4.51 [facility] Comment on above: Performed By: #### L 500.2500, L500.3400, L501.2450, L100.0100 ####[facility] [address] [place], [address] Absolute Neut 4.1 X10 3/uL Normal 2.0-7.7 [facility] Comment on above: Performed By: #### L 500.2500, L500.3400, L501.2450, L100.0100 ####[facility] [address] [place], [address] Basophils/100 WBC (Bld) 0.5 % Normal 0-1 [facility] Comment on above: Performed By: #### L 500.2500, L500.3400, L501.2450, L100.0100 ####[facility] [address] [place], [address] Eosinophils/100 WBC (Bld) 3.7 % Normal 0-5 [facility] Comment on above: Performed By: #### L 500.2500, L500.3400, L501.2450, L100.0100 ####[facility] [address] [place], [address] Erythrocyte distribution width (RBC) [Ratio] 13.8 % Normal 11.6-14.6 [facility] Comment on above: Performed By: #### L 500.2500, L500.3400, L501.2450, L100.0100 ####[facility] [address] [place], [address] Hematocrit (Bld) [Volume fraction] 43.7 % Normal 40-54 [facility] Comment on above: Performed By: #### L 500.2500, L500.3400, L501.2450, L100.0100 ####[facility] [address] [place], [address] Hemoglobin (Bld) [Mass/Vol] 15.1 g/dL Normal 13.0-16.5 [facility] Comment on above: Performed By: #### L 500.2500, L500.3400, L501.2450, L100.0100 ####[facility] [address] [place], [address] IG% 0.500 Normal 0.0-0.9 [facility] Comment on above: Result Comment: IG% - Immature Granulocytes (promyelocytes, myelocytes andmetamyelocytes) > 1% indicates that a LEFT SHIFT is Present. Performed By: #### L 500.2500, L500.3400, L501.2450, L100.0100 ####[facility] [address] [place], [address] Lymphocytes/100 WBC (Bld) 30.2 % Normal 19-41 [facility] Comment on above: Performed By: #### L 500.2500, L500.3400, L501.2450, L100.0100 ####[facility] [address] [place], [address] MCH (RBC) [Entitic mass] 31.4 pg Normal 27.0-32.0 [facility] Comment on above: Performed By: #### L 500.2500, L500.3400, L501.2450, L100.0100 ####[facility] [address] [place], [address] MCHC (RBC) [Mass/Vol] 34.6 g/dL Normal 32-36 [facility] Comment on above: Performed By: #### L 500.2500, L500.3400, L501.2450, L100.0100 ####[facility] [address] [place], [address] MCV (RBC) [Entitic vol] 90.9 fL Normal 80-94 [facility] Comment on above: Performed By: #### L 500.2500, L500.3400, L501.2450, L100.0100 ####[facility] [address] [place], [address] Monocytes/100 WBC (Bld) 9.6 % Normal 0-10 [facility] Comment on above: Performed By: #### L 500.2500, L500.3400, L501.2450, L100.0100 ####[facility] [address] [place], [address] Neutrophils/100 WBC (Bld) 55.5 % Normal 47-70 [facility] Comment on above: Performed By: #### L 500.2500, L500.3400, L501.2450, L100.0100 ####[facility] [address] [place], [address] Nucleated RBC (Bld) [#/Vol] 0 10*3/uL Normal 0-5 [facility] Comment on above: Performed By: #### L 500.2500, L500.3400, L501.2450, L100.0100 ####[facility] [address] [place], [address] Platelet mean volume (Bld) [Entitic vol] 10.4 fL Normal 6.2-12.0 [facility] Comment on above: Performed By: #### L 500.2500, L500.3400, L501.2450, L100.0100 ####[facility] [address] [place], [address] Platelets (Bld) [#/Vol] 276 10*3/uL Normal 150-450 [facility] Comment on above: Performed By: #### L 500.2500, L500.3400, L501.2450, L100.0100 ####[facility] [address] [place], [address] RBC (Bld) [#/Vol] 4.81 10*6/uL Normal 4.6-6.2 [facility] Comment on above: Performed By: #### L 500.2500, L500.3400, L501.2450, L100.0100 ####[facility] [address] [place], [address] RDW SD 46.2 fl High 35.1-43.9 [facility] Comment on above: Performed By: #### L 500.2500, L500.3400, L501.2450, L100.0100 ####[facility] [address] [place], [address] WBC (Bld) [#/Vol] 7.5 10*3/uL Normal 4.4-11.0 [facility] Comment on above: Performed By: #### L 500.2500, L500.3400, L501.2450, L100.0100 ####[facility] [address] [place], [address] Emergency Department Summary on 11-09-2024 Emergency Department Summary Normal [facility] Lipaseon 11-09-2024 Lipase [Catalytic activity/Vol] 38 U/L Normal 13-75 [facility] Comment on above: Result Comment: Nagi nelson note:LIPASE revised reference range effective 22.New Lipase methodology. Expected to produce lower valuesthan the previous assay method.NEW Reference Range: 13 - 75 U/L Performed By: #### L 500.2500, L500.3400, L501.2450, L100.0100 ####[facility] [address] [place], [address] Liver Profileon 11-09-2024 Albumin [Mass/Vol] 4.1 g/dL Normal 3.4-4.8 [facility] Comment on above: Performed By: #### L 500.2500, L500.3400, L501.2450, L100.0100 ####[facility] [address] [place], [address] ALK PHOS 81 U/L Normal 40-129 [facility] Comment on above: Performed By: #### L 500.2500, L500.3400, L501.2450, L100.0100 ####[facility] [address] [place], [address] ALT [Catalytic activity/Vol] 19 U/L Normal <=46 [facility] Comment on above: Performed By: #### L 500.2500, L500.3400, L501.2450, L100.0100 ####[facility] [address] [place], [address] AST [Catalytic activity/Vol] 26 U/L Normal <=37 [facility] Comment on above: Result Comment: Hemo lysis present, Results??could be affected.?? Performed By: #### L 500.2500, L500.3400, L501.2450, L100.0100 ####[facility] [address] [place], [address] Bilirubin [Mass/Vol] 0.40 mg/dL Normal 0.00-1.30 [facility] Comment on above: Performed By: #### L 500.2500, L500.3400, L501.2450, L100.0100 ####[facility] [address] [place], [address] Bilirubin.direct [Mass/Vol] 0.14 mg/dL Normal 0.00-0.30 [facility] Comment on above: Result Comment: Hemo lysis present, Results??could be affected.?? Performed By: #### L 500.2500, L500.3400, L501.2450, L100.0100 ####[facility] [address] [place], [address] Globulin (S) [Mass/Vol] 3.3 g/dL Normal 2.2-4.2 [facility] Comment on above: Performed By: #### L 500.2500, L500.3400, L501.2450, L100.0100 ####[facility] [address] [place], [address] T PROT 7.4 g/dL Normal 5.9-8.4 [facility] Comment on above: Performed By: #### L 500.2500, L500.3400, L501.2450, L100.0100 ####[facility] [address] [place], [address] Emergency Department Summary on 11-07-2024 Emergency Department Summary Normal [facility] Emergency Department Summary on 10-15-2024 Emergency Department Summary Normal [facility] Abdomen/Pelvis W IV Cont ONL Yon 10-13-2024 Abdomen/Pelvis W IV Cont ONLY Normal [facility] CBC W/Diff, Automatedon Absolute Lymph 1.85 X10 3/uL Normal 0.83-4.51 [facility] Comment on above: Performed By: #### L 500.4050, L501.2450, L100.0100 ####[facility] [address] [place], [address] Absolute Neut 6.9 X10 3/uL Normal 2.0-7.7 [facility] Comment on above: Performed By: #### L 500.4050, L501.2450, L100.0100 ####[facility] [address] [place], [address] Basophils/100 WBC (Bld) 0.4 % Normal 0-1 [facility] Comment on above: Performed By: #### L 500.4050, L501.2450, L100.0100 ####[facility] [address] [place], [address] Eosinophils/100 WBC (Bld) 1.3 % Normal 0-5 [facility] Comment on above: Performed By: #### L 500.4050, L501.2450, L100.0100 ####[facility] [address] [place], [address] Erythrocyte distribution width (RBC) [Ratio] 14.0 % Normal 11.6-14.6 [facility] Comment on above: Performed By: #### L 500.4050, L501.2450, L100.0100 ####[facility] [address] [place], [address] Hematocrit (Bld) [Volume fraction] 47.5 % Normal 40-54 [facility] Comment on above: Performed By: #### L 500.4050, L501.2450, L100.0100 ####[facility] [address] [place], [address] Hemoglobin (Bld) [Mass/Vol] 16.4 g/dL Normal 13.0-16.5 [facility] Comment on above: Performed By: #### L 500.4050, L501.2450, L100.0100 ####[facility] [address] [place], [address] IG% 0.200 Normal 0.0-0.9 [facility] Comment on above: Result Comment: IG% - Immature Granulocytes (promyelocytes, myelocytes andmetamyelocytes) > 1% indicates that a LEFT SHIFT is Present. Performed By: #### L 500.4050, L501.2450, L100.0100 ####[facility] [address] [place], [address] Lymphocytes/100 WBC (Bld) 19.1 % Normal 19-41 [facility] Comment on above: Performed By: #### L 500.4050, L501.2450, L100.0100 ####[facility] [address] [place], [address] MCH (RBC) [Entitic mass] 31.5 pg Normal 27.0-32.0 [facility] Comment on above: Performed By: #### L 500.4050, L501.2450, L100.0100 ####[facility] [address] [place], [address] MCHC (RBC) [Mass/Vol] 34.5 g/dL Normal 32-36 [facility] Comment on above: Performed By: #### L 500.4050, L501.2450, L100.0100 ####[facility] [address] [place], [address] MCV (RBC) [Entitic vol] 91.2 fL Normal 80-94 [facility] Comment on above: Performed By: #### L 500.4050, L501.2450, L100.0100 ####[facility] [address] [place], [address] Monocytes/100 WBC (Bld) 7.2 % Normal 0-10 [facility] Comment on above: Performed By: #### L 500.4050, L501.2450, L100.0100 ####[facility] [address] [place], [address] Neutrophils/100 WBC (Bld) 71.8 % High 47-70 [facility] Comment on above: Performed By: #### L 500.4050, L501.2450, L100.0100 ####[facility] [address] [place], [address] Nucleated RBC (Bld) [#/Vol] 0 10*3/uL Normal 0-5 [facility] Comment on above: Performed By: #### L 500.4050, L501.2450, L100.0100 ####[facility] [address] [place], [address] Platelet mean volume (Bld) [Entitic vol] 10.3 fL Normal 6.2-12.0 [facility] Comment on above: Performed By: #### L 500.4050, L501.2450, L100.0100 ####[facility] [address] [place], [address] Platelets (Bld) [#/Vol] 261 10*3/uL Normal 150-450 [facility] Comment on above: Performed By: #### L 500.4050, L501.2450, L100.0100 ####[facility] [address] [place], [address] RBC (Bld) [#/Vol] 5.21 10*6/uL Normal 4.6-6.2 [facility] Comment on above: Performed By: #### L 500.4050, L501.2450, L100.0100 ####[facility] [address] [place], [address] RDW SD 47.1 fl High 35.1-43.9 [facility] Comment on above: Performed By: #### L 500.4050, L501.2450, L100.0100 ####[facility] [address] [place], [address] WBC (Bld) [#/Vol] 9.7 10*3/uL Normal 4.4-11.0 [facility] Comment on above: Performed By: #### L 500.4050, L501.2450, L100.0100 ####[facility] [address] [place], [address] Absolute Lymph 1.55 X10 3/uL Normal 0.83-4.51 [facility] Comment on above: Performed By: #### L 500.4050, L501.2450, L100.0100 ####[facility] [address] [place], [address] Absolute Neut 6.2 X10 3/uL Normal 2.0-7.7 [facility] Comment on above: Performed By: #### L 500.4050, L501.2450, L100.0100 ####[facility] [address] [place], [address] Basophils/100 WBC (Bld) 0.4 % Normal 0-1 [facility] Comment on above: Performed By: #### L 500.4050, L501.2450, L100.0100 ####[facility] [address] [place], [address] Eosinophils/100 WBC (Bld) 0.8 % Normal 0-5 [facility] Comment on above: Performed By: #### L 500.4050, L501.2450, L100.0100 ####[facility] [address] [place], [address] Erythrocyte distribution width (RBC) [Ratio] 13.8 % Normal 11.6-14.6 [facility] Comment on above: Performed By: #### L 500.4050, L501.2450, L100.0100 ####[facility] [address] [place], [address] Hematocrit (Bld) [Volume fraction] 44.2 % Normal 40-54 [facility] Comment on above: Performed By: #### L 500.4050, L501.2450, L100.0100 ####[facility] [address] [place], [address] Hemoglobin (Bld) [Mass/Vol] 15.5 g/dL Normal 13.0-16.5 [facility] Comment on above: Performed By: #### L 500.4050, L501.2450, L100.0100 ####[facility] [address] [place], [address] IG% 0.200 Normal 0.0-0.9 [facility] Comment on above: Result Comment: IG% - Immature Granulocytes (promyelocytes, myelocytes andmetamyelocytes) > 1% indicates that a LEFT SHIFT is Present. Performed By: #### L 500.4050, L501.2450, L100.0100 ####[facility] [address] [place], [address] Lymphocytes/100 WBC (Bld) 18.1 % Low 19-41 [facility] Comment on above: Performed By: #### L 500.4050, L501.2450, L100.0100 ####[facility] [address] [place], [address] MCH (RBC) [Entitic mass] 31.7 pg Normal 27.0-32.0 [facility] Comment on above: Performed By: #### L 500.4050, L501.2450, L100.0100 ####[facility] [address] [place], [address] MCHC (RBC) [Mass/Vol] 35.1 g/dL Normal 32-36 [facility] Comment on above: Performed By: #### L 500.4050, L501.2450, L100.0100 ####[facility] [address] [place], [address] MCV (RBC) [Entitic vol] 90.4 fL Normal 80-94 [facility] Comment on above: Performed By: #### L 500.4050, L501.2450, L100.0100 ####[facility] [address] [place], [address] Monocytes/100 WBC (Bld) 8.3 % Normal 0-10 [facility] Comment on above: Performed By: #### L 500.4050, L501.2450, L100.0100 ####[facility] [address] [place], [address] Neutrophils/100 WBC (Bld) 72.2 % High 47-70 [facility] Comment on above: Performed By: #### L 500.4050, L501.2450, L100.0100 ####[facility] [address] [place], [address] Nucleated RBC (Bld) [#/Vol] 0 10*3/uL Normal 0-5 [facility] Comment on above: Performed By: #### L 500.4050, L501.2450, L100.0100 ####[facility] [address] [place], [address] Platelet mean volume (Bld) [Entitic vol] 9.7 fL Normal 6.2-12.0 [facility] Comment on above: Performed By: #### L 500.4050, L501.2450, L100.0100 ####[facility] [address] [place], [address] Platelets (Bld) [#/Vol] 226 10*3/uL Normal 150-450 [facility] Comment on above: Performed By: #### L 500.4050, L501.2450, L100.0100 ####[facility] [address] [place], [address] RBC (Bld) [#/Vol] 4.89 10*6/uL Normal 4.6-6.2 [facility] Comment on above: Performed By: #### L 500.4050, L501.2450, L100.0100 ####[facility] [address] [place], [address] RDW SD 45.7 fl High 35.1-43.9 [facility] Comment on above: Performed By: #### L 500.4050, L501.2450, L100.0100 ####[facility] [address] [place], [address] WBC (Bld) [#/Vol] 8.6 10*3/uL Normal 4.4-11.0 [facility] Comment on above: Performed By: #### L 500.4050, L501.2450, L100.0100 ####[facility] [address] [place], [address] [facility] Albumin [Mass/Vol] 4.2 g/dL Normal 3.4-4.8 [facility] Comment on above: Performed By: #### L 500.4050, L501.2450, L100.0100 ####[facility] [address] [place], [address] Albumin/Globulin [Mass ratio] 1.2 {ratio} Normal 0.9-2.4 [facility] Comment on above: Performed By: #### L 500.4050, L501.2450, L100.0100 ####[facility] [address] [place], [address] ALK PHOS 91 U/L Normal 40-129 [facility] Comment on above: Performed By: #### L 500.4050, L501.2450, L100.0100 ####[facility] [address] [place], [address] ALT [Catalytic activity/Vol] 12 U/L Normal <=46 [facility] Comment on above: Performed By: #### L 500.4050, L501.2450, L100.0100 ####[facility] [address] [place], [address] AST [Catalytic activity/Vol] 30 U/L Normal <=37 [facility] Comment on above: Result Comment: Hemo lysis present, Results??could be affected.?? Performed By: #### L 500.4050, L501.2450, L100.0100 ####[facility] [address] [place], [address] Bilirubin [Mass/Vol] 0.64 mg/dL Normal 0.00-1.30 [facility] Comment on above: Performed By: #### L 500.4050, L501.2450, L100.0100 ####[facility] [address] [place], [address] BUN/CRE 8.5 RATIO Low 10-20 [facility] Comment on above: Performed By: #### L 500.4050, L501.2450, L100.0100 ####[facility] [address] [place], [address] Calcium [Mass/Vol] 10.2 mg/dL Normal 7.6-11.0 [facility] Comment on above: Performed By: #### L 500.4050, L501.2450, L100.0100 ####[facility] [address] [place], [address] Chloride [Moles/Vol] 95 mmol/L Low 98-108 [facility] Comment on above: Performed By: #### L 500.4050, L501.2450, L100.0100 ####[facility] [address] [place], [address] CO2 [Moles/Vol] 25.9 mmol/L Normal 21.0-32.0 [facility] Comment on above: Performed By: #### L 500.4050, L501.2450, L100.0100 ####[facility] [address] [place], [address] Creatinine [Mass/Vol] 0.76 mg/dL Normal 0.70-1.20 [facility] Comment on above: Performed By: #### L 500.4050, L501.2450, L100.0100 ####[facility] [address] [place], [address] ECRCL 94.79 ml/min Normal 50-250 [facility] Comment on above: Performed By: #### L 500.4050, L501.2450, L100.0100 ####[facility] [address] [place], [address] GAP 15 Normal 5-15 [facility] Comment on above: Performed By: #### L 500.4050, L501.2450, L100.0100 ####[facility] [address] [place], [address] GFR/1.73 sq M.predicted among non-blacks MDRD (S/P/Bld) [Vol rate/Area] 93 mL/min/{1.73_m2} Normal >60 [facility] Comment on above: Result Comment: mL/m in/1.73m2 CKD-EPI Creatinine Equation (2020) Performed By: #### L 500.4050, L501.2450, L100.0100 ####[facility] [address] [place], [address] Globulin (S) [Mass/Vol] 3.7 g/dL Normal 2.2-4.2 [facility] Comment on above: Performed By: #### L 500.4050, L501.2450, L100.0100 ####[facility] [address] [place], [address] Glucose [Mass/Vol] 118 mg/dL High 70-99 [facility] Comment on above: Performed By: #### L 500.4050, L501.2450, L100.0100 ####[facility] [address] [place], [address] Potassium [Moles/Vol] 3.5 mmol/L Normal 3.3-5.1 [facility] Comment on above: Result Comment: Hemo lysis present, Results??could be affected.?? Performed By: #### L 500.4050, L501.2450, L100.0100 ####[facility] [address] [place], [address] Sodium [Moles/Vol] 136 mmol/L Normal 133-145 [facility] Comment on above: Performed By: #### L 500.4050, L501.2450, L100.0100 ####[facility] [address] [place], [address] T PROT 7.9 g/dL Normal 5.9-8.4 [facility] Comment on above: Performed By: #### L 500.4050, L501.2450, L100.0100 ####[facility] [address] [place], [address] Urea nitrogen [Mass/Vol] 6 mg/dL Normal 4-19 [facility] Comment on above: Performed By: #### L 500.4050, L501.2450, L100.0100 ####[facility] [address] [place], [address] Albumin [Mass/Vol] 3.9 g/dL Normal 3.4-4.8 [facility] Comment on above: Performed By: #### L 500.4050, L501.2450, L100.0100 ####[facility] [address] [place], [address] Albumin/Globulin [Mass ratio] 1.1 {ratio} Normal 0.9-2.4 [facility] Comment on above: Performed By: #### L 500.4050, L501.2450, L100.0100 ####[facility] [address] [place], [address] ALK PHOS 87 U/L Normal 40-129 [facility] Comment on above: Performed By: #### L 500.4050, L501.2450, L100.0100 ####[facility] [address] [place], [address] ALT [Catalytic activity/Vol] 12 U/L Normal <=46 [facility] Comment on above: Performed By: #### L 500.4050, L501.2450, L100.0100 ####[facility] [address] [place], [address] AST [Catalytic activity/Vol] 22 U/L Normal <=37 [facility] Comment on above: Performed By: #### L 500.4050, L501.2450, L100.0100 ####[facility] [address] [place], [address] Bilirubin [Mass/Vol] 0.64 mg/dL Normal 0.00-1.30 [facility] Comment on above: Performed By: #### L 500.4050, L501.2450, L100.0100 ####[facility] [address] [place], [address] BUN/CRE 9.8 RATIO Low 10-20 [facility] Comment on above: Performed By: #### L 500.4050, L501.2450, L100.0100 ####[facility] [address] [place], [address] Calcium [Mass/Vol] 10.4 mg/dL Normal 7.6-11.0 [facility] Comment on above: Performed By: #### L 500.4050, L501.2450, L100.0100 ####[facility] [address] [place], [address] Chloride [Moles/Vol] 95 mmol/L Low 98-108 [facility] Comment on above: Performed By: #### L 500.4050, L501.2450, L100.0100 ####[facility] [address] [place], [address] CO2 [Moles/Vol] 25.5 mmol/L Normal 21.0-32.0 [facility] Comment on above: Performed By: #### L 500.4050, L501.2450, L100.0100 ####[facility] [address] [place], [address] Creatinine [Mass/Vol] 0.72 mg/dL Normal 0.70-1.20 [facility] Comment on above: Performed By: #### L 500.4050, L501.2450, L100.0100 ####[facility] [address] [place], [address] ECRCL 97.38 ml/min Normal 50-250 [facility] Comment on above: Performed By: #### L 500.4050, L501.2450, L100.0100 ####[facility] [address] [place], [address] GAP 15 Normal 5-15 [facility] Comment on above: Performed By: #### L 500.4050, L501.2450, L100.0100 ####[facility] [address] [place], [address] GFR/1.73 sq M.predicted among non-blacks MDRD (S/P/Bld) [Vol rate/Area] 95 mL/min/{1.73_m2} Normal >60 [facility] Comment on above: Result Comment: mL/m in/1.73m2 CKD-EPI Creatinine Equation (2020) Performed By: #### L 500.4050, L501.2450, L100.0100 ####[facility] [address] [place], [address] Globulin (S) [Mass/Vol] 3.5 g/dL Normal 2.2-4.2 [facility] Comment on above: Performed By: #### L 500.4050, L501.2450, L100.0100 ####[facility] [address] [place], [address] Glucose [Mass/Vol] 144 mg/dL High 70-99 [facility] Comment on above: Performed By: #### L 500.4050, L501.2450, L100.0100 ####[facility] [address] [place], [address] Potassium [Moles/Vol] 3.1 mmol/L Low 3.3-5.1 [facility] Comment on above: Performed By: #### L 500.4050, L501.2450, L100.0100 ####[facility] [address] [place], [address] Sodium [Moles/Vol] 136 mmol/L Normal 133-145 [facility] Comment on above: Performed By: #### L 500.4050, L501.2450, L100.0100 ####[facility] [address] [place], [address] T PROT 7.5 g/dL Normal 5.9-8.4 [facility] Comment on above: Performed By: #### L 500.4050, L501.2450, L100.0100 ####[facility] [address] [place], [address] Urea nitrogen [Mass/Vol] 7 mg/dL Normal 4-19 [facility] Comment on above: Performed By: #### L 500.4050, L501.2450, L100.0100 ####[facility] [address] [place], [address] Emergency Department Summary on 10-13-2024 Emergency Department Summary Normal [facility] Emergency Department Summary Normal [facility] Lipaseon 10-13-2024 Lipase [Catalytic activity/Vol] 36 U/L Normal 13-75 [facility] Comment on above: Result Comment: Plea note:LIPASE revised reference range effective 22.New Lipase methodology. Expected to produce lower valuesthan the previous assay method.NEW Reference Range: 13 - 75 U/L Performed By: #### L 500.4050, L501.2450, L100.0100 ####[facility] [address] [place], [address] Lipase [Catalytic activity/Vol] 33 U/L Normal 13-75 [facility] Comment on above: Result Comment: Plejake nelson note:LIPASE revised reference range effective 22.New Lipase methodology. Expected to produce lower valuesthan the previous assay method.NEW Reference Range: 13 - 75 U/L Performed By: #### L 500.4050, L501.2450, L100.0100 ####[facility] [address] [place], [address] Urinalysis, Completeon 10-13 BACTERIA 1+ /hpf Normal None Seen [facility] Comment on above: Order Comment: CLEAN CATCH Performed By: #### L 400.0001 ####[facility] [address] [place], [address] EPI,SQUAMOUS 0-5 SEEN Normal 0-5 [facility] Comment on above: Order Comment: CLEAN CATCH Performed By: #### L 400.0001 ####[facility] [address] [place], [address] WBC 0-5 SEEN Normal 0-5 [facility] Comment on above: Order Comment: CLEAN CATCH Performed By: #### L 400.0001 ####[facility] [address] [place], [address] Mucus Ql (Urine sed) 0 SEEN Normal [facility] Comment on above: Order Comment: CLEAN CATCH Performed By: #### L 400.0001 ####[facility] [address] [place], [address] RBC 0 SEEN Normal 0-5 [facility] Comment on above: Order Comment: CLEAN CATCH Performed By: #### L 400.0001 ####[facility] [address] [place], [address] CBC W/Diff, Automatedon 08-2 -2024 Absolute Neut Normal 2.0-7.7 [facility] Comment on above: Result Comment: Canc elled via OM: MD Ordered Performed By: #### L 100.0100 ####[facility] [address] [place], [address] HCT Normal 40-54 [facility] Comment on above: Result Comment: Canc elled via OM: MD Ordered Performed By: #### L 100.0100 ####[facility] [address] [place], [address] HGB Normal 13.0-16.5 [facility] Comment on above: Result Comment: Canc elled via OM: MD Ordered Performed By: #### L 100.0100 ####[facility] [address] [place], [address] MCH Normal 27.0-32.0 [facility] Comment on above: Result Comment: Canc elled via OM: MD Ordered Performed By: #### L 100.0100 ####[facility] [address] [place], [address] MCHC Normal 32-36 [facility] Comment on above: Result Comment: Canc elled via OM: MD Ordered Performed By: #### L 100.0100 ####[facility] [address] [place], [address] MCV Normal 80-94 [facility] Comment on above: Result Comment: Canc elled via OM: MD Ordered Performed By: #### L 100.0100 ####[facility] [address] [place], [address] NEUT% Normal 47-70 [facility] Comment on above: Result Comment: Canc elled via OM: MD Ordered Performed By: #### L 100.0100 ####[facility] [address] [place], [address] PLT Normal 150-450 [facility] Comment on above: Result Comment: Canc elled via OM: MD Ordered Performed By: #### L 100.0100 ####[facility] [address] [place], [address] RBC Normal 4.6-6.2 [facility] Comment on above: Result Comment: Canc elled via OM: MD Ordered Performed By: #### L 100.0100 ####[facility] [address] [place], [address] RDW CV Normal 11.6-14.6 [facility] Comment on above: Result Comment: Canc elled via OM: MD Ordered Performed By: #### L 100.0100 ####[facility] [address] [place], [address] RDW SD Normal 35.1-43.9 [facility] Comment on above: Result Comment: Alivia garcia via OM: Ordered Performed By: #### L 100.0100 ####[facility] [address] [place], [address] WBC Normal 4.4-11.0 [facility] Comment on above: Result Comment: Alivia garcia via OM: Ordered Performed By: #### L 100.0100 ####[facility] [address] [place], [address] Emergency Department Summary on 10-01-2024 Emergency Department Summary Normal [facility] Emergency Department Summary on 07-25-2024 Emergency Department Summary Normal [facility] 12 Lead EKGon 07-14-2024 12 Lead EKG Normal [facility] CBC W/Diff, Automatedon Absolute Lymph 0.84 X10 3/uL Normal 0.83-4.51 [facility] Comment on above: Performed By: #### L 500.4050, L100.0100 ####[facility] [address] [place], [address] Absolute Neut 8.0 X10 3/uL High 2.0-7.7 [facility] Comment on above: Performed By: #### L 500.4050, L100.0100 ####[facility] [address] [place], [address] Basophils/100 WBC (Bld) 0.4 % Normal 0-1 [facility] Comment on above: Performed By: #### L 500.4050, L100.0100 ####[facility] [address] [place], [address] Eosinophils/100 WBC (Bld) 0.1 % Normal 0-5 [facility] Comment on above: Performed By: #### L 500.4050, L100.0100 ####[facility] [address] [place], [address] Erythrocyte distribution width (RBC) [Ratio] 12.9 % Normal 11.6-14.6 [facility] Comment on above: Performed By: #### L 500.4050, L100.0100 ####[facility] [address] [place], [address] Hematocrit (Bld) [Volume fraction] 37.2 % Low 40-54 [facility] Comment on above: Performed By: #### L 500.4050, L100.0100 ####[facility] [address] [place], [address] Hemoglobin (Bld) [Mass/Vol] 13.2 g/dL Normal 13.0-16.5 [facility] Comment on above: Performed By: #### L 500.4050, L100.0100 ####[facility] [address] [place], [address] IG% 0.400 Normal 0.0-0.9 [facility] Comment on above: Result Comment: IG% - Immature Granulocytes (promyelocytes, myelocytes andmetamyelocytes) > 1% indicates that a LEFT SHIFT is Present. Performed By: #### L 500.4050, L100.0100 ####[facility] [address] [place], [address] Lymphocytes/100 WBC (Bld) 8.9 % Low 19-41 [facility] Comment on above: Performed By: #### L 500.4050, L100.0100 ####[facility] [address] [place], [address] MCH (RBC) [Entitic mass] 32.0 pg Normal 27.0-32.0 [facility] Comment on above: Performed By: #### L 500.4050, L100.0100 ####[facility] [address] [place], [address] MCHC (RBC) [Mass/Vol] 35.5 g/dL Normal 32-36 [facility] Comment on above: Performed By: #### L 500.4050, L100.0100 ####[facility] [address] [place], [address] MCV (RBC) [Entitic vol] 90.3 fL Normal 80-94 [facility] Comment on above: Performed By: #### L 500.4050, L100.0100 ####[facility] [address] [place], [address] Monocytes/100 WBC (Bld) 5.2 % Normal 0-10 [facility] Comment on above: Performed By: #### L 500.4050, L100.0100 ####[facility] [address] [place], [address] Neutrophils/100 WBC (Bld) 85.0 % High 47-70 [facility] Comment on above: Performed By: #### L 500.4050, L100.0100 ####[facility] [address] [place], [address] Nucleated RBC (Bld) [#/Vol] 0 10*3/uL Normal 0-5 [facility] Comment on above: Performed By: #### L 500.4050, L100.0100 ####[facility] [address] [place], [address] Platelet mean volume (Bld) [Entitic vol] 9.9 fL Normal 6.2-12.0 [facility] Comment on above: Performed By: #### L 500.4050, L100.0100 ####[facility] [address] [place], [address] Platelets (Bld) [#/Vol] 221 10*3/uL Normal 150-450 [facility] Comment on above: Performed By: #### L 500.4050, L100.0100 ####[facility] [address] [place], [address] RBC (Bld) [#/Vol] 4.12 10*6/uL Low 4.6-6.2 [facility] Comment on above: Performed By: #### L 500.4050, L100.0100 ####[facility] [address] [place], [address] RDW SD 42.5 fl Normal 35.1-43.9 [facility] Comment on above: Performed By: #### L 500.4050, L100.0100 ####[facility] [address] [place], [address] WBC (Bld) [#/Vol] 9.5 10*3/uL Normal 4.4-11.0 [facility] Comment on above: Performed By: #### L 500.4050, L100.0100 ####[facility] [address] [place], [address] [facility] Albumin [Mass/Vol] 3.8 g/dL Normal 3.4-4.8 [facility] Comment on above: Performed By: #### L 500.4050, L100.0100 ####[facility] [address] [place], [address] Albumin/Globulin [Mass ratio] 1.2 {ratio} Normal 0.9-2.4 [facility] Comment on above: Performed By: #### L 500.4050, L100.0100 ####[facility] [address] [place], [address] ALK PHOS 89 U/L Normal 40-129 [facility] Comment on above: Performed By: #### L 500.4050, L100.0100 ####[facility] [address] [place], [address] ALT [Catalytic activity/Vol] 14 U/L Normal <=46 [facility] Comment on above: Performed By: #### L 500.4050, L100.0100 ####[facility] [address] [place], [address] AST [Catalytic activity/Vol] 26 U/L Normal <=37 [facility] Comment on above: Result Comment: Hemo lysis present, Results??could be affected.?? Performed By: #### L 500.4050, L100.0100 ####[facility] [address] [place], [address] Bilirubin [Mass/Vol] 0.41 mg/dL Normal 0.00-1.30 [facility] Comment on above: Performed By: #### L 500.4050, L100.0100 ####[facility] [address] [place], [address] BUN/CRE 14.0 RATIO Normal 10-20 [facility] Comment on above: Performed By: #### L 500.4050, L100.0100 ####[facility] [address] [place], [address] Calcium [Mass/Vol] 8.9 mg/dL Normal 7.6-11.0 [facility] Comment on above: Performed By: #### L 500.4050, L100.0100 ####[facility] [address] [place], [address] Chloride [Moles/Vol] 101 mmol/L Normal 98-108 [facility] Comment on above: Performed By: #### L 500.4050, L100.0100 ####[facility] [address] [place], [address] CO2 [Moles/Vol] 27.0 mmol/L Normal 21.0-32.0 [facility] Comment on above: Performed By: #### L 500.4050, L100.0100 ####[facility] [address] [place], [address] Creatinine [Mass/Vol] 0.74 mg/dL Normal 0.70-1.20 [facility] Comment on above: Performed By: #### L 500.4050, L100.0100 ####[facility] [address] [place], [address] GAP 12 Normal 5-15 [facility] Comment on above: Performed By: #### L 500.4050, L100.0100 ####[facility] [address] [place], [address] GFR/1.73 sq M.predicted among non-blacks MDRD (S/P/Bld) [Vol rate/Area] 94 mL/min/{1.73_m2} Normal >60 [facility] Comment on above: Result Comment: mL/m in/1.73m2 CKD-EPI Creatinine Equation (2020) Performed By: #### L 500.4050, L100.0100 ####[facility] [address] [place], [address] Globulin (S) [Mass/Vol] 3.1 g/dL Normal 2.2-4.2 [facility] Comment on above: Performed By: #### L 500.4050, L100.0100 ####[facility] [address] [place], [address] Glucose [Mass/Vol] 125 mg/dL High 70-99 [facility] Comment on above: Performed By: #### L 500.4050, L100.0100 ####[facility] [address] [place], [address] Potassium [Moles/Vol] 4.0 mmol/L Normal 3.3-5.1 [facility] Comment on above: Result Comment: Hemo lysis present, Results??could be affected.?? Performed By: #### L 500.4050, L100.0100 ####[facility] [address] [place], [address] Sodium [Moles/Vol] 140 mmol/L Normal 133-145 [facility] Comment on above: Performed By: #### L 500.4050, L100.0100 ####[facility] [address] [place], [address] T PROT 6.9 g/dL Normal 5.9-8.4 [facility] Comment on above: Performed By: #### L 500.4050, L100.0100 ####[facility] [address] [place], [address] Urea nitrogen [Mass/Vol] 10 mg/dL Normal 4-19 [facility] Comment on above: Performed By: #### L 500.4050, L100.0100 ####[facility] [address] [place], [address] Emergency Department Summary on 07-14-2024 Emergency Department Summary Normal [facility] Lactic Acidon 07-14-2024 Lactate [Moles/Vol] 1.4 mmol/L Normal 0.0-2.0 [facility] Comment on above: Order Comment: Y Performed By: #### L 503.6005 ####[facility] [address] [place], [address] Chiropractic Reporton 2024 Chiropractic Report Normal [facility] Chiropractic Reporton 2024 Chiropractic Report Normal [facility] Basic Metabolic Profile (BMP )on 06-21-2024 BUN/CRE 15.6 RATIO Normal 10-20 [facility] Comment on above: Performed By: #### L 500.2500 ####[facility] [address] [place], [address] Calcium [Mass/Vol] 9.8 mg/dL Normal 7.6-11.0 [facility] Comment on above: Performed By: #### L 500.2500 ####[facility] [address] [place], [address] Chloride [Moles/Vol] 101 mmol/L Normal 98-108 [facility] Comment on above: Performed By: #### L 500.2500 ####[facility] [address] [place], [address] CO2 [Moles/Vol] 23.2 mmol/L Normal 21.0-32.0 [facility] Comment on above: Performed By: #### L 500.2500 ####[facility] [address] [place], [address] Creatinine [Mass/Vol] 0.90 mg/dL Normal 0.70-1.20 [facility] Comment on above: Performed By: #### L 500.2500 ####[facility] [address] [place], [address] GAP 13 Normal 5-15 [facility] Comment on above: Performed By: #### L 500.2500 ####[facility] [address] [place], [address] GFR/1.73 sq M.predicted among non-blacks MDRD (S/P/Bld) [Vol rate/Area] 88 mL/min/{1.73_m2} Normal >60 [facility] Comment on above: Result Comment: mL/m in/1.73m2 CKD-EPI Creatinine Equation (2020) Performed By: #### L 500.2500 ####[facility] [address] [place], [address] Glucose [Mass/Vol] 102 mg/dL High 70-99 [facility] Comment on above: Performed By: #### L 500.2500 ####[facility] [address] [place], [address] Potassium [Moles/Vol] 3.9 mmol/L Normal 3.3-5.1 [facility] Comment on above: Performed By: #### L 500.2500 ####[facility] [address] [place], [address] Sodium [Moles/Vol] 137 mmol/L Normal 133-145 [facility] Comment on above: Performed By: #### L 500.2500 ####[facility] [address] [place], [address] Urea nitrogen [Mass/Vol] 14 mg/dL Normal 4-19 [facility] Comment on above: Performed By: #### L 500.2500 ####[facility] [address] [place], [address] Basic Metabolic Profile (BMP )on 06-07-2024 BUN/CRE 17.6 RATIO Normal 10-20 [facility] Comment on above: Performed By: #### L 500.2500 ####[facility] [address] [place], [address] Calcium [Mass/Vol] 8.9 mg/dL Normal 7.6-11.0 [facility] Comment on above: Performed By: #### L 500.2500 ####[facility] [address] [place], [address] Chloride [Moles/Vol] 93 mmol/L Low 98-108 [facility] Comment on above: Performed By: #### L 500.2500 ####[facility] [address] [place], [address] CO2 [Moles/Vol] 21.2 mmol/L Normal 21.0-32.0 [facility] Comment on above: Performed By: #### L 500.2500 ####[facility] [address] [place], [address] Creatinine [Mass/Vol] 0.63 mg/dL Low 0.70-1.20 [facility] Comment on above: Performed By: #### L 500.2500 ####[facility] [address] [place], [address] ECRCL 95.23 ml/min Normal 50-250 [facility] Comment on above: Performed By: #### L 500.2500 ####[facility] [address] [place], [address] GAP 13 Normal 5-15 [facility] Comment on above: Performed By: #### L 500.2500 ####[facility] [address] [place], [address] GFR/1.73 sq M.predicted among non-blacks MDRD (S/P/Bld) [Vol rate/Area] 99 mL/min/{1.73_m2} Normal >60 [facility] Comment on above: Result Comment: mL/m in/1.73m2 CKD-EPI Creatinine Equation (2020) Performed By: #### L 500.2500 ####[facility] [address] [place], [address] Glucose [Mass/Vol] 119 mg/dL High 70-99 [facility] Comment on above: Performed By: #### L 500.2500 ####[facility] [address] [place], [address] Potassium [Moles/Vol] 3.8 mmol/L Normal 3.3-5.1 [facility] Comment on above: Performed By: #### L 500.2500 ####[facility] [address] [place], [address] Sodium [Moles/Vol] 128 mmol/L Low 133-145 [facility] Comment on above: Performed By: #### L 500.2500 ####[facility] [address] [place], [address] Urea nitrogen [Mass/Vol] 11 mg/dL Normal 4-19 [facility] Comment on above: Performed By: #### L 500.2500 ####[facility] [address] [place], [address] BUN/CRE 18.6 RATIO Normal 10-20 [facility] Comment on above: Performed By: #### L 100.0100, L500.2500 ####[facility] [address] [place], [address] Calcium [Mass/Vol] 9.3 mg/dL Normal 7.6-11.0 [facility] Comment on above: Performed By: #### L 100.0100, L500.2500 ####[facility] [address] [place], [address] Chloride [Moles/Vol] 91 mmol/L Low 98-108 [facility] Comment on above: Performed By: #### L 100.0100, L500.2500 ####[facility] [address] [place], [address] CO2 [Moles/Vol] 21.8 mmol/L Normal 21.0-32.0 [facility] Comment on above: Performed By: #### L 100.0100, L500.2500 ####[facility] [address] [place], [address] Creatinine [Mass/Vol] 0.68 mg/dL Low 0.70-1.20 [facility] Comment on above: Performed By: #### L 100.0100, L500.2500 ####[facility] [address] [place], [address] ECRCL 95.23 ml/min Normal 50-250 [facility] Comment on above: Performed By: #### L 100.0100, L500.2500 ####[facility] [address] [place], [address] GAP 14 Normal 5-15 [facility] Comment on above: Performed By: #### L 100.0100, L500.2500 ####[facility] [address] [place], [address] GFR/1.73 sq M.predicted among non-blacks MDRD (S/P/Bld) [Vol rate/Area] 97 mL/min/{1.73_m2} Normal >60 [facility] Comment on above: Result Comment: mL/m in/1.73m2 CKD-EPI Creatinine Equation (2020) Performed By: #### L 100.0100, L500.2500 ####[facility] [address] [place], [address] Glucose [Mass/Vol] 116 mg/dL High 70-99 [facility] Comment on above: Performed By: #### L 100.0100, L500.2500 ####[facility] [address] [place], [address] Potassium [Moles/Vol] 4.0 mmol/L Normal 3.3-5.1 [facility] Comment on above: Result Comment: Hemo lysis present, Results??could be affected.?? Performed By: #### L 100.0100, L500.2500 ####[facility] [address] [place], [address] Sodium [Moles/Vol] 127 mmol/L Low 133-145 [facility] Comment on above: Performed By: #### L 100.0100, L500.2500 ####[facility] [address] [place], [address] Urea nitrogen [Mass/Vol] 13 mg/dL Normal 4-19 [facility] Comment on above: Performed By: #### L 100.0100, L500.2500 ####[facility] [address] [place], [address] CBC W/Diff, Automatedon 05-0 1-2024 Absolute Lymph 1.01 X10 3/uL Normal 0.83-4.51 [facility] Comment on above: Performed By: #### L 100.0100, L500.2500 ####[facility] [address] [place], [address] Absolute Neut 12.6 X10 3/uL High 2.0-7.7 [facility] Comment on above: Performed By: #### L 100.0100, L500.2500 ####[facility] [address] [place], [address] Basophils/100 WBC (Bld) 0.2 % Normal 0-1 [facility] Comment on above: Performed By: #### L 100.0100, L500.2500 ####[facility] [address] [place], [address] Eosinophils/100 WBC (Bld) 0.0 % Normal 0-5 [facility] Comment on above: Performed By: #### L 100.0100, L500.2500 ####[facility] [address] [place], [address] Erythrocyte distribution width (RBC) [Ratio] 12.9 % Normal 11.6-14.6 [facility] Comment on above: Performed By: #### L 100.0100, L500.2500 ####[facility] [address] [place], [address] Hematocrit (Bld) [Volume fraction] 39.2 % Low 40-54 [facility] Comment on above: Performed By: #### L 100.0100, L500.2500 ####[facility] [address] [place], [address] Hemoglobin (Bld) [Mass/Vol] 13.8 g/dL Normal 13.0-16.5 [facility] Comment on above: Performed By: #### L 100.0100, L500.2500 ####[facility] [address] [place], [address] IG% 0.400 Normal 0.0-0.9 [facility] Comment on above: Result Comment: IG% - Immature Granulocytes (promyelocytes, myelocytes andmetamyelocytes) > 1% indicates that a LEFT SHIFT is Present. Performed By: #### L 100.0100, L500.2500 ####[facility] [address] [place], [address] Lymphocytes/100 WBC (Bld) 7.0 % Low 19-41 [facility] Comment on above: Performed By: #### L 100.0100, L500.2500 ####[facility] [address] [place], [address] MCH (RBC) [Entitic mass] 32.1 pg High 27.0-32.0 [facility] Comment on above: Performed By: #### L 100.0100, L500.2500 ####[facility] [address] [place], [address] MCHC (RBC) [Mass/Vol] 35.2 g/dL Normal 32-36 [facility] Comment on above: Performed By: #### L 100.0100, L500.2500 ####[facility] [address] [place], [address] MCV (RBC) [Entitic vol] 91.2 fL Normal 80-94 [facility] Comment on above: Performed By: #### L 100.0100, L500.2500 ####[facility] [address] [place], [address] Monocytes/100 WBC (Bld) 4.5 % Normal 0-10 [facility] Comment on above: Performed By: #### L 100.0100, L500.2500 ####[facility] [address] [place], [address] Neutrophils/100 WBC (Bld) 87.9 % High 47-70 [facility] Comment on above: Performed By: #### L 100.0100, L500.2500 ####[facility] [address] [place], [address] Nucleated RBC (Bld) [#/Vol] 0 10*3/uL Normal 0-5 [facility] Comment on above: Performed By: #### L 100.0100, L500.2500 ####[facility] [address] [place], [address] Platelet mean volume (Bld) [Entitic vol] 9.6 fL Normal 6.2-12.0 [facility] Comment on above: Performed By: #### L 100.0100, L500.2500 ####[facility] [address] [place], [address] Platelets (Bld) [#/Vol] 306 10*3/uL Normal 150-450 [facility] Comment on above: Performed By: #### L 100.0100, L500.2500 ####[facility] [address] [place], [address] RBC (Bld) [#/Vol] 4.30 10*6/uL Low 4.6-6.2 [facility] Comment on above: Performed By: #### L 100.0100, L500.2500 ####[facility] [address] [place], [address] RDW SD 43.0 fl Normal 35.1-43.9 [facility] Comment on above: Performed By: #### L 100.0100, L500.2500 ####[facility] [address] [place], [address] WBC (Bld) [#/Vol] 14.3 10*3/uL High 4.4-11.0 [facility] Comment on above: Performed By: #### L 100.0100, L500.2500 ####[facility] [address] [place], [address] Emergency Department Summary on 06-07-2024 Emergency Department Summary Normal [facility] Lipaseon 06-07-2024 Lipase [Catalytic activity/Vol] 35 U/L Normal 13-75 [facility] Comment on above: Result Comment: Nagi nelson note:LIPASE revised reference range effective 22.New Lipase methodology. Expected to produce lower valuesthan the previous assay method.NEW Reference Range: 13 - 75 U/L Performed By: #### L 501.2450, L500.3400 ####[facility] [address] [place], [address] Liver Profileon 06-07-2024 Albumin [Mass/Vol] 3.9 g/dL Normal 3.4-4.8 [facility] Comment on above: Performed By: #### L 501.2450, L500.3400 ####[facility] [address] [place], [address] ALK PHOS 89 U/L Normal 40-129 [facility] Comment on above: Performed By: #### L 501.2450, L500.3400 ####[facility] [address] [place], [address] ALT [Catalytic activity/Vol] 21 U/L Normal <=46 [facility] Comment on above: Performed By: #### L 501.2450, L500.3400 ####[facility] [address] [place], [address] AST [Catalytic activity/Vol] 26 U/L Normal <=37 [facility] Comment on above: Result Comment: Hemo lysis present, Results??could be affected.?? Performed By: #### L 501.2450, L500.3400 ####[facility] [address] [place], [address] Bilirubin [Mass/Vol] 0.49 mg/dL Normal 0.00-1.30 [facility] Comment on above: Performed By: #### L 501.2450, L500.3400 ####[facility] [address] [place], [address] Bilirubin.direct [Mass/Vol] 0.22 mg/dL Normal 0.00-0.30 [facility] Comment on above: Result Comment: Hemo lysis present, Results??could be affected.?? Performed By: #### L 501.2450, L500.3400 ####[facility] [address] [place], [address] Globulin (S) [Mass/Vol] 3.6 g/dL Normal 2.2-4.2 [facility] Comment on above: Performed By: #### L 501.2450, L500.3400 ####[facility] [address] [place], [address] T PROT 7.5 g/dL Normal 5.9-8.4 [facility] Comment on above: Performed By: #### L 501.2450, L500.3400 ####[facility] [address] [place], [address] Urinalysis, Completeon 06-07 CAST,HYALINE 0-5 SEEN Normal 0-5 [facility] Comment on above: Order Comment: GEORGE CTOR TO SPECIFY Performed By: #### L 400.0001 ####[facility] [address] [place], [address] RBC 0-5 SEEN Normal 0-5 [facility] Comment on above: Order Comment: GEORGE CTOR TO SPECIFY Performed By: #### L 400.0001 ####[facility] [address] [place], [address] WBC 0-5 SEEN Normal 0-5 [facility] Comment on above: Order Comment: COLLE CTOR TO SPECIFY Performed By: #### L 400.0001 ####[facility] [address] [place], [address] BACTERIA 0 SEEN Normal None Seen [facility] Comment on above: Order Comment: COLLE CTOR TO SPECIFY Performed By: #### L 400.0001 ####[facility] [address] [place], [address] EPI,SQUAMOUS 0 SEEN Normal 0-5 [facility] Comment on above: Order Comment: COLLE CTOR TO SPECIFY Performed By: #### L 400.0001 ####[facility] [address] [place], [address] Mucus Ql (Urine sed) 0 SEEN Normal [facility] Comment on above: Order Comment: COLLE CTOR TO SPECIFY Performed By: #### L 400.0001 ####[facility] [address] [place], [address] Basic Metabolic Profile (BMP )on 05-28-2024 BUN/CRE 21.0 RATIO High 10-20 [facility] Comment on above: Performed By: #### L 100.0100, L500.2500 ####[facility] [address] [place], [address] Calcium [Mass/Vol] 9.8 mg/dL Normal 7.6-11.0 [facility] Comment on above: Performed By: #### L 100.0100, L500.2500 ####[facility] [address] [place], [address] Chloride [Moles/Vol] 91 mmol/L Low 98-108 [facility] Comment on above: Performed By: #### L 100.0100, L500.2500 ####[facility] [address] [place], [address] CO2 [Moles/Vol] 26.3 mmol/L Normal 21.0-32.0 [facility] Comment on above: Performed By: #### L 100.0100, L500.2500 ####[facility] [address] [place], [address] Creatinine [Mass/Vol] 0.85 mg/dL Normal 0.70-1.20 [facility] Comment on above: Performed By: #### L 100.0100, L500.2500 ####[facility] [address] [place], [address] ECRCL 88.64 ml/min Normal 50-250 [facility] Comment on above: Performed By: #### L 100.0100, L500.2500 ####[facility] [address] [place], [address] GAP 11 Normal 5-15 [facility] Comment on above: Performed By: #### L 100.0100, L500.2500 ####[facility] [address] [place], [address] GFR/1.73 sq M.predicted among non-blacks MDRD (S/P/Bld) [Vol rate/Area] 90 mL/min/{1.73_m2} Normal >60 [facility] Comment on above: Result Comment: mL/m in/1.73m2 CKD-EPI Creatinine Equation (2020) Performed By: #### L 100.0100, L500.2500 ####[facility] [address] [place], [address] Glucose [Mass/Vol] 114 mg/dL High 70-99 [facility] Comment on above: Performed By: #### L 100.0100, L500.2500 ####[facility] [address] [place], [address] Potassium [Moles/Vol] 3.9 mmol/L Normal 3.3-5.1 [facility] Comment on above: Performed By: #### L 100.0100, L500.2500 ####[facility] [address] [place], [address] Sodium [Moles/Vol] 129 mmol/L Low 133-145 [facility] Comment on above: Performed By: #### L 100.0100, L500.2500 ####[facility] [address] [place], [address] Urea nitrogen [Mass/Vol] 18 mg/dL Normal 4-19 [facility] Comment on above: Performed By: #### L 100.0100, L500.2500 ####[facility] [address] [place], [address] CBC W/Diff, Automatedon 04- Absolute Lymph 1.70 X10 3/uL Normal 0.83-4.51 [facility] Comment on above: Performed By: #### L 100.0100, L500.2500 ####[facility] [address] [place], [address] Absolute Neut 9.5 X10 3/uL High 2.0-7.7 [facility] Comment on above: Performed By: #### L 100.0100, L500.2500 ####[facility] [address] [place], [address] Basophils/100 WBC (Bld) 0.4 % Normal 0-1 [facility] Comment on above: Performed By: #### L 100.0100, L500.2500 ####[facility] [address] [place], [address] Eosinophils/100 WBC (Bld) 0.3 % Normal 0-5 [facility] Comment on above: Performed By: #### L 100.0100, L500.2500 ####[facility] [address] [place], [address] Erythrocyte distribution width (RBC) [Ratio] 12.9 % Normal 11.6-14.6 [facility] Comment on above: Performed By: #### L 100.0100, L500.2500 ####[facility] [address] [place], [address] Hematocrit (Bld) [Volume fraction] 41.7 % Normal 40-54 [facility] Comment on above: Performed By: #### L 100.0100, L500.2500 ####[facility] [address] [place], [address] Hemoglobin (Bld) [Mass/Vol] 14.8 g/dL Normal 13.0-16.5 [facility] Comment on above: Performed By: #### L 100.0100, L500.2500 ####[facility] [address] [place], [address] IG% 0.500 Normal 0.0-0.9 [facility] Comment on above: Result Comment: IG% - Immature Granulocytes (promyelocytes, myelocytes andmetamyelocytes) > 1% indicates that a LEFT SHIFT is Present. Performed By: #### L 100.0100, L500.2500 ####[facility] [address] [place], [address] Lymphocytes/100 WBC (Bld) 13.7 % Low 19-41 [facility] Comment on above: Performed By: #### L 100.0100, L500.2500 ####[facility] [address] [place], [address] MCH (RBC) [Entitic mass] 32.3 pg High 27.0-32.0 [facility] Comment on above: Performed By: #### L 100.0100, L500.2500 ####[facility] [address] [place], [address] MCHC (RBC) [Mass/Vol] 35.5 g/dL Normal 32-36 [facility] Comment on above: Performed By: #### L 100.0100, L500.2500 ####[facility] [address] [place], [address] MCV (RBC) [Entitic vol] 91.0 fL Normal 80-94 [facility] Comment on above: Performed By: #### L 100.0100, L500.2500 ####[facility] [address] [place], [address] Monocytes/100 WBC (Bld) 8.9 % Normal 0-10 [facility] Comment on above: Performed By: #### L 100.0100, L500.2500 ####[facility] [address] [place], [address] Neutrophils/100 WBC (Bld) 76.2 % High 47-70 [facility] Comment on above: Performed By: #### L 100.0100, L500.2500 ####[facility] [address] [place], [address] Nucleated RBC (Bld) [#/Vol] 0 10*3/uL Normal 0-5 [facility] Comment on above: Performed By: #### L 100.0100, L500.2500 ####[facility] [address] [place], [address] Platelet mean volume (Bld) [Entitic vol] 9.5 fL Normal 6.2-12.0 [facility] Comment on above: Performed By: #### L 100.0100, L500.2500 ####[facility] [address] [place], [address] Platelets (Bld) [#/Vol] 316 10*3/uL Normal 150-450 [facility] Comment on above: Performed By: #### L 100.0100, L500.2500 ####[facility] [address] [place], [address] RBC (Bld) [#/Vol] 4.58 10*6/uL Low 4.6-6.2 [facility] Comment on above: Performed By: #### L 100.0100, L500.2500 ####[facility] [address] [place], [address] RDW SD 42.3 fl Normal 35.1-43.9 [facility] Comment on above: Performed By: #### L 100.0100, L500.2500 ####[facility] [address] [place], [address] WBC (Bld) [#/Vol] 12.4 10*3/uL High 4.4-11.0 [facility] Comment on above: Performed By: #### L 100.0100, L500.2500 ####[facility] [address] [place], [address] Emergency Department Summary on 05-28-2024 Emergency Department Summary Normal [facility] 12 Lead EKGon 05-26-2024 12 Lead EKG Normal [facility] CBC W/Diff, Automatedon 05-08 Absolute Lymph 1.66 X10 3/uL Normal 0.83-4.51 [facility] Comment on above: Performed By: #### L 500.4050, L501.2450, L100.0100 ####[facility] [address] [place], [address] Absolute Neut 9.5 X10 3/uL High 2.0-7.7 [facility] Comment on above: Performed By: #### L 500.4050, L501.2450, L100.0100 ####[facility] [address] [place], [address] Basophils/100 WBC (Bld) 0.5 % Normal 0-1 [facility] Comment on above: Performed By: #### L 500.4050, L501.2450, L100.0100 ####[facility] [address] [place], [address] Eosinophils/100 WBC (Bld) 0.5 % Normal 0-5 [facility] Comment on above: Performed By: #### L 500.4050, L501.2450, L100.0100 ####[facility] [address] [place], [address] Erythrocyte distribution width (RBC) [Ratio] 13.2 % Normal 11.6-14.6 [facility] Comment on above: Performed By: #### L 500.4050, L501.2450, L100.0100 ####[facility] [address] [place], [place], [address] Hematocrit (Bld) [Volume fraction] 42.0 % Normal 40-54 [facility] Comment on above: Performed By: #### L 500.4050, L501.2450, L100.0100 ####[facility] [address] [place], [address] Hemoglobin (Bld) [Mass/Vol] 15.2 g/dL Normal 13.0-16.5 [facility] Comment on above: Performed By: #### L 500.4050, L501.2450, L100.0100 ####[facility] [address] [place], [address] IG% 0.300 Normal 0.0-0.9 [facility] Comment on above: Result Comment: IG% - Immature Granulocytes (promyelocytes, myelocytes andmetamyelocytes) > 1% indicates that a LEFT SHIFT is Present. Performed By: #### L 500.4050, L501.2450, L100.0100 ####[facility] [address] [place], [address] Lymphocytes/100 WBC (Bld) 13.4 % Low 19-41 [facility] Comment on above: Performed By: #### L 500.4050, L501.2450, L100.0100 ####[facility] [address] [place], [address] MCH (RBC) [Entitic mass] 33.4 pg High 27.0-32.0 [facility] Comment on above: Performed By: #### L 500.4050, L501.2450, L100.0100 ####[facility] [address] [place], [address] MCHC (RBC) [Mass/Vol] 36.2 g/dL High 32-36 [facility] Comment on above: Performed By: #### L 500.4050, L501.2450, L100.0100 ####[facility] [address] [place], [address] MCV (RBC) [Entitic vol] 92.3 fL Normal 80-94 [facility] Comment on above: Performed By: #### L 500.4050, L501.2450, L100.0100 ####[facility] [address] [place], [address] Monocytes/100 WBC (Bld) 8.2 % Normal 0-10 [facility] Comment on above: Performed By: #### L 500.4050, L501.2450, L100.0100 ####[facility] [address] [place], [address] Neutrophils/100 WBC (Bld) 77.1 % High 47-70 [facility] Comment on above: Performed By: #### L 500.4050, L501.2450, L100.0100 ####[facility] [address] [place], [address] Nucleated RBC (Bld) [#/Vol] 0 10*3/uL Normal 0-5 [facility] Comment on above: Performed By: #### L 500.4050, L501.2450, L100.0100 ####[facility] [address] [place], [address] Platelet mean volume (Bld) [Entitic vol] 9.6 fL Normal 6.2-12.0 [facility] Comment on above: Performed By: #### L 500.4050, L501.2450, L100.0100 ####[facility] [address] [place], [address] Platelets (Bld) [#/Vol] 329 10*3/uL Normal 150-450 [facility] Comment on above: Performed By: #### L 500.4050, L501.2450, L100.0100 ####[facility] [address] [place], [address] RBC (Bld) [#/Vol] 4.55 10*6/uL Low 4.6-6.2 [facility] Comment on above: Performed By: #### L 500.4050, L501.2450, L100.0100 ####[facility] [address] [place], [address] RDW SD 44.5 fl High 35.1-43.9 [facility] Comment on above: Performed By: #### L 500.4050, L501.2450, L100.0100 ####[facility] [address] [place], [address] WBC (Bld) [#/Vol] 12.4 10*3/uL High 4.4-11.0 [facility] Comment on above: Performed By: #### L 500.4050, L501.2450, L100.0100 ####[facility] [address] [place], [address] Comprehensive Metabolic Prof ilon 05-26-2024 Albumin [Mass/Vol] 3.8 g/dL Normal 3.4-4.8 [facility] Comment on above: Performed By: #### L 500.4050, L501.2450, L100.0100 ####[facility] [address] [place], [address] Albumin/Globulin [Mass ratio] 1.0 {ratio} Normal 0.9-2.4 [facility] Comment on above: Performed By: #### L 500.4050, L501.2450, L100.0100 ####[facility] [address] [place], [address] ALK PHOS 94 U/L Normal 40-129 [facility] Comment on above: Performed By: #### L 500.4050, L501.2450, L100.0100 ####[facility] [address] [place], [address] ALT [Catalytic activity/Vol] 22 U/L Normal <=46 [facility] Comment on above: Performed By: #### L 500.4050, L501.2450, L100.0100 ####[facility] [address] [place], [address] AST [Catalytic activity/Vol] 27 U/L Normal <=37 [facility] Comment on above: Result Comment: Hemo lysis present, Results??could be affected.?? Performed By: #### L 500.4050, L501.2450, L100.0100 ####[facility] [address] [place], [address] Bilirubin [Mass/Vol] 0.51 mg/dL Normal 0.00-1.30 [facility] Comment on above: Performed By: #### L 500.4050, L501.2450, L100.0100 ####[facility] [address] [place], [address] BUN/CRE 25.7 RATIO High 10-20 [facility] Comment on above: Performed By: #### L 500.4050, L501.2450, L100.0100 ####[facility] [address] [place], [address] Calcium [Mass/Vol] 9.7 mg/dL Normal 7.6-11.0 [facility] Comment on above: Performed By: #### L 500.4050, L501.2450, L100.0100 ####[facility] [address] [place], [address] Chloride [Moles/Vol] 98 mmol/L Normal 98-108 [facility] Comment on above: Performed By: #### L 500.4050, L501.2450, L100.0100 ####[facility] [address] [place], [address] CO2 [Moles/Vol] 23.4 mmol/L Normal 21.0-32.0 [facility] Comment on above: Performed By: #### L 500.4050, L501.2450, L100.0100 ####[facility] [address] [place], [address] Creatinine [Mass/Vol] 0.86 mg/dL Normal 0.70-1.20 [facility] Comment on above: Performed By: #### L 500.4050, L501.2450, L100.0100 ####[facility] [address] [place], [address] ECRCL 87.90 ml/min Normal 50-250 [facility] Comment on above: Performed By: #### L 500.4050, L501.2450, L100.0100 ####[facility] [address] [place], [address] GAP 13 Normal 5-15 [facility] Comment on above: Performed By: #### L 500.4050, L501.2450, L100.0100 ####[facility] [address] [place], [address] GFR/1.73 sq M.predicted among non-blacks MDRD (S/P/Bld) [Vol rate/Area] 90 mL/min/{1.73_m2} Normal >60 [facility] Comment on above: Result Comment: mL/m in/1.73m2 CKD-EPI Creatinine Equation (2020) Performed By: #### L 500.4050, L501.2450, L100.0100 ####[facility] [address] [place], [address] Globulin (S) [Mass/Vol] 3.7 g/dL Normal 2.2-4.2 [facility] Comment on above: Performed By: #### L 500.4050, L501.2450, L100.0100 ####[facility] [address] [place], [address] Glucose [Mass/Vol] 111 mg/dL High 70-99 [facility] Comment on above: Performed By: #### L 500.4050, L501.2450, L100.0100 ####[facility] [address] [place], [address] Potassium [Moles/Vol] 4.5 mmol/L Normal 3.3-5.1 [facility] Comment on above: Result Comment: Hemo lysis present, Results??could be affected.?? Performed By: #### L 500.4050, L501.2450, L100.0100 ####[facility] [address] [place], [address] Sodium [Moles/Vol] 135 mmol/L Normal 133-145 [facility] Comment on above: Performed By: #### L 500.4050, L501.2450, L100.0100 ####[facility] [address] [place], [address] T PROT 7.5 g/dL Normal 5.9-8.4 [facility] Comment on above: Performed By: #### L 500.4050, L501.2450, L100.0100 ####[facility] [address] [place], [address] Urea nitrogen [Mass/Vol] 22 mg/dL High - [facility] Comment on above: Performed By: #### L 500.4050, L501.2450, L100.0100 ####[facility] [address] [place], [address] Emergency Department Summary on 05-26-2024 Emergency Department Summary Normal [facility] Lipaseon 05-26-2024 Lipase [Catalytic activity/Vol] 132 U/L High 13-75 [facility] Comment on above: Result Comment: Nagi nelson note:LIPASE revised reference range effective 22.New Lipase methodology. Expected to produce lower valuesthan the previous assay method.NEW Reference Range: 13 - 75 U/L Performed By: #### L 500.4050, L501.2450, L100.0100 ####[facility] [address] [place], [address] Urinalysis, Completeon 05-26 BACTERIA 0 SEEN Normal None Seen [facility] Comment on above: Order Comment: CLEAN CATCH Performed By: #### L 400.0001 ####[facility] [address] [place], [address] EPI,SQUAMOUS 0 SEEN Normal 0-5 [facility] Comment on above: Order Comment: CLEAN CATCH Performed By: #### L 400.0001 ####[facility] [address] [place], [address] Mucus Ql (Urine sed) 0 SEEN Normal [facility] Comment on above: Order Comment: CLEAN CATCH Performed By: #### L 400.0001 ####[facility] [address] [place], [address] RBC 0 SEEN Normal 0-5 [facility] Comment on above: Order Comment: CLEAN CATCH Performed By: #### L 400.0001 ####[facility] [address] [place], [address] WBC 0 SEEN Normal 0-5 [facility] Comment on above: Order Comment: CLEAN CATCH Performed By: #### L 400.0001 ####[facility] [address] [place], [address] Urine Drug Screen (VISTA)on 05-26-2024 AMPHETAMINES Negative Normal <1000 ng/mL [facility] Comment on above: Performed By: #### L 505.5000 ####[facility] [address] [place] [id number] BARBITIURATES Negative Normal < 200 ng/mL [facility] Comment on above: Performed By: #### L 505.5000 ####[facility] [address] [place] [id number] BENZODIAZIPINE Positive Normal < 200 ng/mL [facility] Comment on above: Result Comment: If c onfirmation testing is needed, a separate order will berequired to send out testing to the reference laboratory. Performed By: #### L 505.5000 ####[facility] [address] [place], [address] BUP Ur Drug Scr Negative Normal < 200 ng/mL [facility] Comment on above: Performed By: #### L 505.5000 ####[facility] [address] [facility] [address] COCAINE Negative Normal < 300 ng/mL [facility] Comment on above: Performed By: #### L 505.5000 ####[facility] [address] [place], [address] Fentanyl Negative Normal [facility] Comment on above: Performed By: #### L 505.5000 ####[facility] [address] [place], [address] METHADONE Negative Normal < 300 ng/mL [facility] Comment on above: Performed By: #### L 505.5000 ####[facility] [address] [place], [address] OPIATES Negative Normal < 300 ng/mL [facility] Comment on above: Performed By: #### L 505.5000 ####[facility] [address] [place], [address] OXYCODONE Negative Normal < 100 ng/mL [facility] Comment on above: Performed By: #### L 505.5000 ####[facility] [address] [place], [address] PCP Negative Normal < 25 ng/mL [facility] Comment on above: Performed By: #### L 505.5000 ####[facility] [address] [place], [address] THC Negative Normal < 50 ng/mL [facility] Comment on above: Performed By: #### L 505.5000 ####[facility] [address] [place], [address] CBC W/Diff, Automatedon 05-08 Absolute Lymph 1.99 X10 3/uL Normal 0.83-4.51 [facility] Comment on above: Performed By: #### L 500.4050, L100.0100, L503.7505 ####[facility] [address] [place], [address] Absolute Neut 6.1 X10 3/uL Normal 2.0-7.7 [facility] Comment on above: Performed By: #### L 500.4050, L100.0100, L503.7505 ####[facility] [address] [place], [address] Basophils/100 WBC (Bld) 0.5 % Normal 0-1 [facility] Comment on above: Performed By: #### L 500.4050, L100.0100, L503.7505 ####[facility] [address] [place], [address] Eosinophils/100 WBC (Bld) 1.1 % Normal 0-5 [facility] Comment on above: Performed By: #### L 500.4050, L100.0100, L503.7505 ####[facility] [address] [place], [address] Erythrocyte distribution width (RBC) [Ratio] 12.6 % Normal 11.6-14.6 [facility] Comment on above: Performed By: #### L 500.4050, L100.0100, L503.7505 ####[facility] [address] [place], [address] Hematocrit (Bld) [Volume fraction] 40.2 % Normal 40-54 [facility] Comment on above: Performed By: #### L 500.4050, L100.0100, L503.7505 ####[facility] [address] [place], [address] Hemoglobin (Bld) [Mass/Vol] 13.9 g/dL Normal 13.0-16.5 [facility] Comment on above: Performed By: #### L 500.4050, L100.0100, L503.7505 ####[facility] [address] [place], [address] IG% 0.500 Normal 0.0-0.9 [facility] Comment on above: Result Comment: IG% - Immature Granulocytes (promyelocytes, myelocytes andmetamyelocytes) > 1% indicates that a LEFT SHIFT is Present. Performed By: #### L 500.4050, L100.0100, L503.7505 ####[facility] [address] [place], [address] Lymphocytes/100 WBC (Bld) 21.4 % Normal 19-41 [facility] Comment on above: Performed By: #### L 500.4050, L100.0100, L503.7505 ####[facility] [address] [place], [address] MCH (RBC) [Entitic mass] 32.3 pg High 27.0-32.0 [facility] Comment on above: Performed By: #### L 500.4050, L100.0100, L503.7505 ####[facility] [address] [place], [address] MCHC (RBC) [Mass/Vol] 34.6 g/dL Normal 32-36 [facility] Comment on above: Performed By: #### L 500.4050, L100.0100, L503.7505 ####[facility] [address] [place], [address] MCV (RBC) [Entitic vol] 93.5 fL Normal 80-94 [facility] Comment on above: Performed By: #### L 500.4050, L100.0100, L503.7505 ####[facility] [address] [place], [address] Monocytes/100 WBC (Bld) 11.3 % High 0-10 [facility] Comment on above: Performed By: #### L 500.4050, L100.0100, L503.7505 ####[facility] [address] [place], [address] Neutrophils/100 WBC (Bld) 65.2 % Normal 47-70 [facility] Comment on above: Performed By: #### L 500.4050, L100.0100, L503.7505 ####[facility] [address] [place], [address] Nucleated RBC (Bld) [#/Vol] 0 10*3/uL Normal 0-5 [facility] Comment on above: Performed By: #### L 500.4050, L100.0100, L503.7505 ####[facility] [address] [place], [address] Platelet mean volume (Bld) [Entitic vol] 9.8 fL Normal 6.2-12.0 [facility] Comment on above: Performed By: #### L 500.4050, L100.0100, L503.7505 ####[facility] [address] [place], [address] Platelets (Bld) [#/Vol] 309 10*3/uL Normal 150-450 [facility] Comment on above: Performed By: #### L 500.4050, L100.0100, L503.7505 ####[facility] [address] [place], [address] RBC (Bld) [#/Vol] 4.30 10*6/uL Low 4.6-6.2 [facility] Comment on above: Performed By: #### L 500.4050, L100.0100, L503.7505 ####[facility] [address] [place], [address] RDW SD 42.7 fl Normal 35.1-43.9 [facility] Comment on above: Performed By: #### L 500.4050, L100.0100, L503.7505 ####[facility] [address] [place], [address] WBC (Bld) [#/Vol] 9.3 10*3/uL Normal 4.4-11.0 [facility] Comment on above: Performed By: #### L 500.4050, L100.0100, L503.7505 ####[facility] [address] [place], [address] Comprehensive [facility] Prof [facility] Albumin [Mass/Vol] 3.6 g/dL Normal 3.4-4.8 [facility] Comment on above: Performed By: #### L 500.4050, L100.0100, L503.7505 ####[facility] [address] [place], [address] Albumin/Globulin [Mass ratio] 1.0 {ratio} Normal 0.9-2.4 [facility] Comment on above: Performed By: #### L 500.4050, L100.0100, L503.7505 ####[facility] [address] [place], [address] ALK PHOS 92 U/L Normal 40-129 [facility] Comment on above: Performed By: #### L 500.4050, L100.0100, L503.7505 ####[facility] [address] [place], [address] ALT [Catalytic activity/Vol] 17 U/L Normal <=46 [facility] Comment on above: Performed By: #### L 500.4050, L100.0100, L503.7505 ####[facility] [address] [place], [address] AST [Catalytic activity/Vol] 27 U/L Normal <=37 [facility] Comment on above: Performed By: #### L 500.4050, L100.0100, L503.7505 ####[facility] [address] [place], [address] Bilirubin [Mass/Vol] 0.47 mg/dL Normal 0.00-1.30 [facility] Comment on above: Performed By: #### L 500.4050, L100.0100, L503.7505 ####[facility] [address] [place], [address] BUN/CRE 14.6 RATIO Normal 10-20 [facility] Comment on above: Performed By: #### L 500.4050, L100.0100, L503.7505 ####[facility] [address] [place], [address] Calcium [Mass/Vol] 9.5 mg/dL Normal 7.6-11.0 [facility] Comment on above: Performed By: #### L 500.4050, L100.0100, L503.7505 ####[facility] [address] [place], [address] Chloride [Moles/Vol] 92 mmol/L Low 98-108 [facility] Comment on above: Performed By: #### L 500.4050, L100.0100, L503.7505 ####[facility] [address] [place], [address] CO2 [Moles/Vol] 26.3 mmol/L Normal 21.0-32.0 [facility] Comment on above: Performed By: #### L 500.4050, L100.0100, L503.7505 ####[facility] [address] [place], [address] Creatinine [Mass/Vol] 0.70 mg/dL Normal 0.70-1.20 [facility] Comment on above: Performed By: #### L 500.4050, L100.0100, L503.7505 ####[facility] [address] [place], [address] GAP 11 Normal 5-15 [facility] Comment on above: Performed By: #### L 500.4050, L100.0100, L503.7505 ####[facility] [address] [place], [address] GFR/1.73 sq M.predicted among non-blacks MDRD (S/P/Bld) [Vol rate/Area] 95 mL/min/{1.73_m2} Normal >60 [facility] Comment on above: Result Comment: mL/m in/1.73m2 CKD-EPI Creatinine Equation (2020) Performed By: #### L 500.4050, L100.0100, L503.7505 ####[facility] [address] [place], [address] Globulin (S) [Mass/Vol] 3.6 g/dL Normal 2.2-4.2 [facility] Comment on above: Performed By: #### L 500.4050, L100.0100, L503.7505 ####[facility] [address] [place], [address] Glucose [Mass/Vol] 99 mg/dL Normal 70-99 [facility] Comment on above: Performed By: #### L 500.4050, L100.0100, L503.7505 ####[facility] [address] [place], [address] Potassium [Moles/Vol] 4.4 mmol/L Normal 3.3-5.1 [facility] Comment on above: Performed By: #### L 500.4050, L100.0100, L503.7505 ####[facility] [address] [place], [address] Sodium [Moles/Vol] 129 mmol/L Low 133-145 [facility] Comment on above: Performed By: #### L 500.4050, L100.0100, L503.7505 ####[facility] [address] [place], [address] T PROT 7.2 g/dL Normal 5.9-8.4 [facility] Comment on above: Performed By: #### L 500.4050, L100.0100, L503.7505 ####[facility] [address] [place], [address] Urea nitrogen [Mass/Vol] 10 mg/dL Normal 4-19 [facility] Comment on above: Performed By: #### L 500.4050, L100.0100, L503.7505 ####[facility] [address] [place], [address] L503.7505on 05-21-2024 Natriuretic peptide B (Bld) [Mass/Vol] 66 pg/mL Normal <=1800 [facility] Comment on above: Result Comment: Hear t Failure Unlikely: < 300 pg/mLHeart Failure Likely< 50 Years: > 450 pg/mL50-75 Years: > 900 pg/mL>75 Years: > 1800 pg/mL Performed By: #### L 500.4050, L100.0100, L503.7505 ####[facility] [address] [place], [address] Basic Metabolic Profile (BMP )on 04-30-2024 BUN/CRE 23.2 RATIO High 10-20 [facility] Comment on above: Order Comment: 103.2 Performed By: #### L 503.0106, L500.2500, L100.0100, L501.5200, L506.1001, L501.9520 ####[facility] [address] [place], [address] Calcium [Mass/Vol] 9.4 mg/dL Normal 7.6-11.0 [facility] Comment on above: Order Comment: 103.2 Performed By: #### L 503.0106, L500.2500, L100.0100, L501.5200, L506.1001, L501.9520 ####[facility] [address] [place], [address] Chloride [Moles/Vol] 98 mmol/L Normal 98-108 [facility] Comment on above: Order Comment: 103.2 Performed By: #### L 503.0106, L500.2500, L100.0100, L501.5200, L506.1001, L501.9520 ####[facility] [address] [place], [address] CO2 [Moles/Vol] 24.1 mmol/L Normal 21.0-32.0 [facility] Comment on above: Order Comment: 103.2 Performed By: #### L 503.0106, L500.2500, L100.0100, L501.5200, L506.1001, L501.9520 ####[facility] [address] [place], [address] Creatinine [Mass/Vol] 0.87 mg/dL Normal 0.70-1.20 [facility] Comment on above: Order Comment: 103.2 Performed By: #### L 503.0106, L500.2500, L100.0100, L501.5200, L506.1001, L501.9520 ####[facility] [address] [place], [address] GAP 12 Normal 5-15 [facility] Comment on above: Order Comment: 103.2 Performed By: #### L 503.0106, L500.2500, L100.0100, L501.5200, L506.1001, L501.9520 ####[facility] [address] [place], [address] GFR/1.73 sq M.predicted among non-blacks MDRD (S/P/Bld) [Vol rate/Area] 90 mL/min/{1.73_m2} Normal >60 [facility] Comment on above: Order Comment: 103.2 Result Comment: mL/m in/1.73m2 CKD-EPI Creatinine Equation (2020) Performed By: #### L 503.0106, L500.2500, L100.0100, L501.5200, L506.1001, L501.9520 ####[facility] [address] [place], [address] Glucose [Mass/Vol] 121 mg/dL High 70-99 [facility] Comment on above: Order Comment: 103.2 Performed By: #### L 503.0106, L500.2500, L100.0100, L501.5200, L506.1001, L501.9520 ####[facility] [address] [place], [address] Potassium [Moles/Vol] 4.2 mmol/L Normal 3.3-5.1 [facility] Comment on above: Order Comment: 103.2 Performed By: #### L 503.0106, L500.2500, L100.0100, L501.5200, L506.1001, L501.9520 ####[facility] [address] [place], [address] Sodium [Moles/Vol] 134 mmol/L Normal 133-145 [facility] Comment on above: Order Comment: 103.2 Performed By: #### L 503.0106, L500.2500, L100.0100, L501.5200, L506.1001, L501.9520 ####[facility] [address] [place], [address] Urea nitrogen [Mass/Vol] 20 mg/dL High - [facility] Comment on above: Order Comment: 103.2 Performed By: #### L 503.0106, L500.2500, L100.0100, L501.5200, L506.1001, L501.9520 ####[facility] [address] [place], [address] CBC W/Diff, Automatedon 03- Absolute Lymph 1.32 X10 3/uL Normal 0.83-4.51 [facility] Comment on above: Order Comment: 103.2 Performed By: #### L 503.0106, L500.2500, L100.0100, L501.5200, L506.1001, L501.9520 ####[facility] [address] [place], [address] Absolute Neut 3.2 X10 3/uL Normal 2.0-7.7 [facility] Comment on above: Order Comment: 103.2 Performed By: #### L 503.0106, L500.2500, L100.0100, L501.5200, L506.1001, L501.9520 ####[facility] [address] [place], [address] Basophils/100 WBC (Bld) 1.0 % Normal 0-1 [facility] Comment on above: Order Comment: 103.2 Performed By: #### L 503.0106, L500.2500, L100.0100, L501.5200, L506.1001, L501.9520 ####[facility] [address] [place], [address] Eosinophils/100 WBC (Bld) 4.4 % Normal 0-5 [facility] Comment on above: Order Comment: 103.2 Performed By: #### L 503.0106, L500.2500, L100.0100, L501.5200, L506.1001, L501.9520 ####[facility] [address] [place], [address] Erythrocyte distribution width (RBC) [Ratio] 13.2 % Normal 11.6-14.6 [facility] Comment on above: Order Comment: 103.2 Performed By: #### L 503.0106, L500.2500, L100.0100, L501.5200, L506.1001, L501.9520 ####[facility] [address] [place], [address] Hematocrit (Bld) [Volume fraction] 42.5 % Normal 40-54 [facility] Comment on above: Order Comment: 103.2 Performed By: #### L 503.0106, L500.2500, L100.0100, L501.5200, L506.1001, L501.9520 ####[facility] [address] [place], [address] Hemoglobin (Bld) [Mass/Vol] 14.5 g/dL Normal 13.0-16.5 [facility] Comment on above: Order Comment: 103.2 Performed By: #### L 503.0106, L500.2500, L100.0100, L501.5200, L506.1001, L501.9520 ####[facility] [address] [place], [address] IG% 0.700 Normal 0.0-0.9 [facility] Comment on above: Order Comment: 103.2 Result Comment: IG% - Immature Granulocytes (promyelocytes, myelocytes andmetamyelocytes) > 1% indicates that a LEFT SHIFT is Present. Performed By: #### L 503.0106, L500.2500, L100.0100, L501.5200, L506.1001, L501.9520 ####[facility] [address] [place], [address] Lymphocytes/100 WBC (Bld) 22.4 % Normal 19-41 [facility] Comment on above: Order Comment: 103.2 Performed By: #### L 503.0106, L500.2500, L100.0100, L501.5200, L506.1001, L501.9520 ####[facility] [address] [place], [address] MCH (RBC) [Entitic mass] 33.3 pg High 27.0-32.0 [facility] Comment on above: Order Comment: 103.2 Performed By: #### L 503.0106, L500.2500, L100.0100, L501.5200, L506.1001, L501.9520 ####[facility] [address] [place], [address] MCHC (RBC) [Mass/Vol] 34.1 g/dL Normal 32-36 [facility] Comment on above: Order Comment: 103.2 Performed By: #### L 503.0106, L500.2500, L100.0100, L501.5200, L506.1001, L501.9520 ####[facility] [address] [place], [address] MCV (RBC) [Entitic vol] 97.7 fL High 80-94 [facility] Comment on above: Order Comment: 103.2 Performed By: #### L 503.0106, L500.2500, L100.0100, L501.5200, L506.1001, L501.9520 ####[facility] [address] [place], [address] Monocytes/100 WBC (Bld) 17.5 % High 0-10 [facility] Comment on above: Order Comment: 103.2 Performed By: #### L 503.0106, L500.2500, L100.0100, L501.5200, L506.1001, L501.9520 ####[facility] [address] [place], [address] Neutrophils/100 WBC (Bld) 54.0 % Normal 47-70 [facility] Comment on above: Order Comment: 103.2 Performed By: #### L 503.0106, L500.2500, L100.0100, L501.5200, L506.1001, L501.9520 ####[facility] [address] [place], [address] Nucleated RBC (Bld) [#/Vol] 0 10*3/uL Normal 0-5 [facility] Comment on above: Order Comment: 103.2 Performed By: #### L 503.0106, L500.2500, L100.0100, L501.5200, L506.1001, L501.9520 ####[facility] [address] [place], [address] Platelet mean volume (Bld) [Entitic vol] 10.2 fL Normal 6.2-12.0 [facility] Comment on above: Order Comment: 103.2 Performed By: #### L 503.0106, L500.2500, L100.0100, L501.5200, L506.1001, L501.9520 ####[facility] [address] [place], [address] Platelets (Bld) [#/Vol] 172 10*3/uL Normal 150-450 [facility] Comment on above: Order Comment: 103.2 Performed By: #### L 503.0106, L500.2500, L100.0100, L501.5200, L506.1001, L501.9520 ####[facility] [address] [place], [address] RBC (Bld) [#/Vol] 4.35 10*6/uL Low 4.6-6.2 [facility] Comment on above: Order Comment: 103.2 Performed By: #### L 503.0106, L500.2500, L100.0100, L501.5200, L506.1001, L501.9520 ####[facility] [address] [place], [address] RDW SD 47.0 fl High 35.1-43.9 [facility] Comment on above: Order Comment: 103.2 Performed By: #### L 503.0106, L500.2500, L100.0100, L501.5200, L506.1001, L501.9520 ####[facility] [address] [place], [address] WBC (Bld) [#/Vol] 5.9 10*3/uL Normal 4.4-11.0 [facility] Comment on above: Order Comment: 103.2 Performed By: #### L 503.0106, L500.2500, L100.0100, L501.5200, L506.1001, L501.9520 ####[facility] [address] [place], [address] L503.0106on 04-30-2024 Cobalamin (Vitamin B12) [Mass/Vol] 522 pg/mL Normal 180-914 [facility] Comment on above: Order Comment: 103.2 Performed By: #### L 503.0106, L500.2500, L100.0100, L501.5200, L506.1001, L501.9520 ####[facility] [address] [place], [address] L506.1001on 04-30-2024 Vitamin D 25-OH 52.8 ng/mL Normal 30-100 [facility] Comment on above: Order Comment: 103.2 Result Comment: Asndra min D StatusDeficiency: <20 ng/mL (50nmol/L)Insufficiency: 20-30 ng/mL (50-75 nmol/L)Sufficiency: 30-100 ng/mL (75-250 nmol/L)Toxicity: >100 ng/mL (>250 nmol/L) Performed By: #### L 503.0106, L500.2500, L100.0100, L501.5200, L506.1001, L501.9520 ####[facility] [address] [place], [address] Magnesiumon 04-30-2024 Magnesium [Mass/Vol] 2.1 mg/dL Normal 1.5-2.2 [facility] Comment on above: Order Comment: 103.2 Performed By: #### L 503.0106, L500.2500, L100.0100, L501.5200, L506.1001, L501.9520 ####[facility] [address] [place], [address] Thyroid Stim Hormone (TSH)on 04-30-2024 TSH 3.020 uIU/mL Normal 0.300-4.200 [facility] Comment on above: Order Comment: 103.2 Performed By: #### L 503.0106, L500.2500, L100.0100, L501.5200, L506.1001, L501.9520 ####[facility] [address] [place], [address] Basic Metabolic Profile (BMP )on 04-23-2024 BUN/CRE 21.4 RATIO High 10-20 [facility] Comment on above: Performed By: #### L 100.0100, L500.2500 ####[facility] [address] [place], [address] Calcium [Mass/Vol] 8.9 mg/dL Normal 7.6-11.0 [facility] Comment on above: Performed By: #### L 100.0100, L500.2500 ####[facility] [address] [place], [address] Chloride [Moles/Vol] 97 mmol/L Low 98-108 [facility] Comment on above: Performed By: #### L 100.0100, L500.2500 ####[facility] [address] [place], [address] CO2 [Moles/Vol] 25.6 mmol/L Normal 21.0-32.0 [facility] Comment on above: Performed By: #### L 100.0100, L500.2500 ####[facility] [address] [place], [address] Creatinine [Mass/Vol] 0.78 mg/dL Normal 0.70-1.20 [facility] Comment on above: Performed By: #### L 100.0100, L500.2500 ####[facility] [address] [place], [address] ECRCL 86.71 ml/min Normal 50-250 [facility] Comment on above: Performed By: #### L 100.0100, L500.2500 ####[facility] [address] [place], [address] GAP 11 Normal 5-15 [facility] Comment on above: Performed By: #### L 100.0100, L500.2500 ####[facility] [address] [place], [address] GFR/1.73 sq M.predicted among non-blacks MDRD (S/P/Bld) [Vol rate/Area] 93 mL/min/{1.73_m2} Normal >60 [facility] Comment on above: Result Comment: mL/m in/1.73m2 CKD-EPI Creatinine Equation (2020) Performed By: #### L 100.0100, L500.2500 ####[facility] [address] [place], [address] Glucose [Mass/Vol] 95 mg/dL Normal 70-99 [facility] Comment on above: Performed By: #### L 100.0100, L500.2500 ####[facility] [address] [place], [address] Potassium [Moles/Vol] 4.7 mmol/L Normal 3.3-5.1 [facility] Comment on above: Performed By: #### L 100.0100, L500.2500 ####[facility] [address] [place], [address] Sodium [Moles/Vol] 133 mmol/L Normal 133-145 [facility] Comment on above: Performed By: #### L 100.0100, L500.2500 ####[facility] [address] [place], [address] Urea nitrogen [Mass/Vol] 17 mg/dL Normal 4-19 [facility] Comment on above: Performed By: #### L 100.0100, L500.2500 ####[facility] [address] [place], [address] CBC W/Diff, Automatedon 04-07 Absolute Lymph 0.88 X10 3/uL Normal 0.83-4.51 [facility] Comment on above: Performed By: #### L 100.0100, L500.2500 ####[facility] [address] [place], [address] Absolute Neut 6.6 X10 3/uL Normal 2.0-7.7 [facility] Comment on above: Performed By: #### L 100.0100, L500.2500 ####[facility] [address] [place], [address] Basophils/100 WBC (Bld) 0.4 % Normal 0-1 [facility] Comment on above: Performed By: #### L 100.0100, L500.2500 ####[facility] [address] [place], [address] Eosinophils/100 WBC (Bld) 0.1 % Normal 0-5 [facility] Comment on above: Performed By: #### L 100.0100, L500.2500 ####[facility] [address] [place], [address] Erythrocyte distribution width (RBC) [Ratio] 13.7 % Normal 11.6-14.6 [facility] Comment on above: Performed By: #### L 100.0100, L500.2500 ####[facility] [address] [place], [address] Hematocrit (Bld) [Volume fraction] 40.4 % Normal 40-54 [facility] Comment on above: Performed By: #### L 100.0100, L500.2500 ####[facility] [address] [place], [address] Hemoglobin (Bld) [Mass/Vol] 13.7 g/dL Normal 13.0-16.5 [facility] Comment on above: Performed By: #### L 100.0100, L500.2500 ####[facility] [address] [place], [address] IG% 0.600 Normal 0.0-0.9 [facility] Comment on above: Result Comment: IG% - Immature Granulocytes (promyelocytes, myelocytes andmetamyelocytes) > 1% indicates that a LEFT SHIFT is Present. Performed By: #### L 100.0100, L500.2500 ####[facility] [address] [place], [address] Lymphocytes/100 WBC (Bld) 10.4 % Low 19-41 [facility] Comment on above: Performed By: #### L 100.0100, L500.2500 ####[facility] [address] [place], [address] MCH (RBC) [Entitic mass] 32.5 pg High 27.0-32.0 [facility] Comment on above: Performed By: #### L 100.0100, L500.2500 ####[facility] [address] [place], [address] MCHC (RBC) [Mass/Vol] 33.9 g/dL Normal 32-36 [facility] Comment on above: Performed By: #### L 100.0100, L500.2500 ####[facility] [address] [place], [address] MCV (RBC) [Entitic vol] 95.7 fL High 80-94 [facility] Comment on above: Performed By: #### L 100.0100, L500.2500 ####[facility] [address] [place], [address] Monocytes/100 WBC (Bld) 11.0 % High 0-10 [facility] Comment on above: Performed By: #### L 100.0100, L500.2500 ####[facility] [address] [place], [address] Neutrophils/100 WBC (Bld) 77.5 % High 47-70 [facility] Comment on above: Performed By: #### L 100.0100, L500.2500 ####[facility] [address] [place], [address] Nucleated RBC (Bld) [#/Vol] 0 10*3/uL Normal 0-5 [facility] Comment on above: Performed By: #### L 100.0100, L500.2500 ####[facility] [address] [place], [address] Platelet mean volume (Bld) [Entitic vol] 9.9 fL Normal 6.2-12.0 [facility] Comment on above: Performed By: #### L 100.0100, L500.2500 ####[facility] [address] [place], [address] Platelets (Bld) [#/Vol] 148 10*3/uL Low 150-450 [facility] Comment on above: Performed By: #### L 100.0100, L500.2500 ####[facility] [address] [place], [address] RBC (Bld) [#/Vol] 4.22 10*6/uL Low 4.6-6.2 [facility] Comment on above: Performed By: #### L 100.0100, L500.2500 ####[facility] [address] [place], [address] RDW SD 48.1 fl High 35.1-43.9 [facility] Comment on above: Performed By: #### L 100.0100, L500.2500 ####[facility] [address] [place], [address] WBC (Bld) [#/Vol] 8.5 10*3/uL Normal 4.4-11.0 [facility] Comment on above: Performed By: #### L 100.0100, L500.2500 ####[facility] [address] [place], [address] Pelvis (Routine)on Pelvis (Routine) Normal [facility] 12 Lead EKGon 04-22-2024 12 Lead EKG Normal [facility] Alcohol, Blood (Medical)-Ser umon 04-22-2024 SERUM ETOH 91.6 mg/dL High <=10.0 [facility] Comment on above: Result Comment: This test is for medical purposes only. The legaldefinition of intoxication varies according to local law. Performed By: #### L 501.9100 ####[facility] [address] [place], [address] Basic Metabolic Profile (BMP )on 04-22-2024 BUN/CRE 16.9 RATIO Normal 10-20 [facility] Comment on above: Performed By: #### L 500.3400, L100.0100, L500.2500, L501.2450, L501.4021 ####[facility] [address] [place], [address] Calcium [Mass/Vol] 9.2 mg/dL Normal 7.6-11.0 [facility] Comment on above: Performed By: #### L 500.3400, L100.0100, L500.2500, L501.2450, L501.4021 ####[facility] [address] [place], [address] Chloride [Moles/Vol] 99 mmol/L Normal 98-108 [facility] Comment on above: Performed By: #### L 500.3400, L100.0100, L500.2500, L501.2450, L501.4021 ####[facility] [address] [place], [address] CO2 [Moles/Vol] 25.2 mmol/L Normal 21.0-32.0 [facility] Comment on above: Performed By: #### L 500.3400, L100.0100, L500.2500, L501.2450, L501.4021 ####[facility] [address] [place], [address] Creatinine [Mass/Vol] 0.93 mg/dL Normal 0.70-1.20 [facility] Comment on above: Performed By: #### L 500.3400, L100.0100, L500.2500, L501.2450, L501.4021 ####[facility] [address] [place], [address] ECRCL 86.05 ml/min Normal 50-250 [facility] Comment on above: Performed By: #### L 500.3400, L100.0100, L500.2500, L501.2450, L501.4021 ####[facility] [address] [place], [address] GAP 14 Normal 5-15 [facility] Comment on above: Performed By: #### L 500.3400, L100.0100, L500.2500, L501.2450, L501.4021 ####[facility] [address] [place], [address] GFR/1.73 sq M.predicted among non-blacks MDRD (S/P/Bld) [Vol rate/Area] 86 mL/min/{1.73_m2} Normal >60 [facility] Comment on above: Result Comment: mL/m in/1.73m2 CKD-EPI Creatinine Equation (2020) Performed By: #### L 500.3400, L100.0100, L500.2500, L501.2450, L501.4021 ####[facility] [address] [place], [address] Glucose [Mass/Vol] 79 mg/dL Normal 70-99 [facility] Comment on above: Performed By: #### L 500.3400, L100.0100, L500.2500, L501.2450, L501.4021 ####[facility] [address] [place], [address] Potassium [Moles/Vol] 4.3 mmol/L Normal 3.3-5.1 [facility] Comment on above: Performed By: #### L 500.3400, L100.0100, L500.2500, L501.2450, L501.4021 ####[facility] [address] [place], [address] Sodium [Moles/Vol] 138 mmol/L Normal 133-145 [facility] Comment on above: Performed By: #### L 500.3400, L100.0100, L500.2500, L501.2450, L501.4021 ####[facility] [address] [place], [address] Urea nitrogen [Mass/Vol] 16 mg/dL Normal 4-19 [facility] Comment on above: Performed By: #### L 500.3400, L100.0100, L500.2500, L501.2450, L501.4021 ####[facility] [address] [place], [address] Brain/Head without Contrasto n 04-22-2024 Brain/Head without Contrast Normal [facility] CBC W/Diff, Automatedon 03- Absolute Lymph 1.32 X10 3/uL Normal 0.83-4.51 [facility] Comment on above: Performed By: #### L 500.3400, L100.0100, L500.2500, L501.2450, L501.4021 ####[facility] [address] [place], [address] Absolute Neut 12.2 X10 3/uL High 2.0-7.7 [facility] Comment on above: Performed By: #### L 500.3400, L100.0100, L500.2500, L501.2450, L501.4021 ####[facility] [address] [place], [address] Basophils/100 WBC (Bld) 0.2 % Normal 0-1 [facility] Comment on above: Performed By: #### L 500.3400, L100.0100, L500.2500, L501.2450, L501.4021 ####[facility] [address] [place], [address] Eosinophils/100 WBC (Bld) 0.1 % Normal 0-5 [facility] Comment on above: Performed By: #### L 500.3400, L100.0100, L500.2500, L501.2450, L501.4021 ####[facility] [address] [place], [address] Erythrocyte distribution width (RBC) [Ratio] 13.6 % Normal 11.6-14.6 [facility] Comment on above: Performed By: #### L 500.3400, L100.0100, L500.2500, L501.2450, L501.4021 ####[facility] [address] [place], [address] Hematocrit (Bld) [Volume fraction] 42.9 % Normal 40-54 [facility] Comment on above: Performed By: #### L 500.3400, L100.0100, L500.2500, L501.2450, L501.4021 ####[facility] [address] [place], [address] Hemoglobin (Bld) [Mass/Vol] 14.5 g/dL Normal 13.0-16.5 [facility] Comment on above: Performed By: #### L 500.3400, L100.0100, L500.2500, L501.2450, L501.4021 ####[facility] [address] [place], [address] IG% 1.000 High 0.0-0.9 [facility] Comment on above: Result Comment: IG% - Immature Granulocytes (promyelocytes, myelocytes andmetamyelocytes) > 1% indicates that a LEFT SHIFT is Present. Performed By: #### L 500.3400, L100.0100, L500.2500, L501.2450, L501.4021 ####[facility] [address] [place], [address] Lymphocytes/100 WBC (Bld) 9.0 % Low 19-41 [facility] Comment on above: Performed By: #### L 500.3400, L100.0100, L500.2500, L501.2450, L501.4021 ####[facility] [address] [place], [address] MCH (RBC) [Entitic mass] 32.6 pg High 27.0-32.0 [facility] Comment on above: Performed By: #### L 500.3400, L100.0100, L500.2500, L501.2450, L501.4021 ####[facility] [address] [place], [address] MCHC (RBC) [Mass/Vol] 33.8 g/dL Normal 32-36 [facility] Comment on above: Performed By: #### L 500.3400, L100.0100, L500.2500, L501.2450, L501.4021 ####[facility] [address] [place], [address] MCV (RBC) [Entitic vol] 96.4 fL High 80-94 [facility] Comment on above: Performed By: #### L 500.3400, L100.0100, L500.2500, L501.2450, L501.4021 ####[facility] [address] [place], [address] Monocytes/100 WBC (Bld) 7.0 % Normal 0-10 [facility] Comment on above: Performed By: #### L 500.3400, L100.0100, L500.2500, L501.2450, L501.4021 ####[facility] [address] [place], [address] Neutrophils/100 WBC (Bld) 82.7 % High 47-70 [facility] Comment on above: Performed By: #### L 500.3400, L100.0100, L500.2500, L501.2450, L501.4021 ####[facility] [address] [place], [address] Nucleated RBC (Bld) [#/Vol] 0 10*3/uL Normal 0-5 [facility] Comment on above: Performed By: #### L 500.3400, L100.0100, L500.2500, L501.2450, L501.4021 ####[facility] [address] [place], [address] Platelet mean volume (Bld) [Entitic vol] 9.8 fL Normal 6.2-12.0 [facility] Comment on above: Performed By: #### L 500.3400, L100.0100, L500.2500, L501.2450, L501.4021 ####[facility] [address] [place], [address] Platelets (Bld) [#/Vol] 212 10*3/uL Normal 150-450 [facility] Comment on above: Performed By: #### L 500.3400, L100.0100, L500.2500, L501.2450, L501.4021 ####[facility] [address] [place], [address] RBC (Bld) [#/Vol] 4.45 10*6/uL Low 4.6-6.2 [facility] Comment on above: Performed By: #### L 500.3400, L100.0100, L500.2500, L501.2450, L501.4021 ####[facility] [address] [place], [address] RDW SD 48.8 fl High 35.1-43.9 [facility] Comment on above: Performed By: #### L 500.3400, L100.0100, L500.2500, L501.2450, L501.4021 ####[facility] [id number] [place], [address] WBC (Bld) [#/Vol] 14.7 10*3/uL High 4.4-11.0 [facility] Comment on above: Performed By: #### L 500.3400, L100.0100, L500.2500, L501.2450, L501.4021 ####[facility] [address] [place], [address] Chest 1 View (Portable)on Chest 1 View (Portable) Normal [facility] Emergency Department Summary on 04-22-2024 Emergency Department Summary Normal [facility] Extremity Lower without Cont raon 04-22-2024 Extremity Lower without Contra Normal [facility] H AND P Exam - Hospitaliston 04-22-2024 H&P Exam - Hospitalist Normal [facility] HIP, UNI W/ Pelvis 2-3 Views on 04-22-2024 HIP, UNI W/ Pelvis 2-3 Views Normal [facility] L499.0042on 04-22-2024 Trop T High Sen 18 ng/L Normal <=22 [facility] Comment on above: Performed By: #### L 499.0042 ####[facility] [address] [place], [address] L501.4021on 04-22-2024 Trop T High Sen 18 ng/L Normal <=22 [facility] Comment on above: Performed By: #### L 500.3400, L100.0100, L500.2500, L501.2450, L501.4021 ####[facility] [address] [place], [address] Lipaseon 04-22-2024 Lipase [Catalytic activity/Vol] 59 U/L Normal 13-75 [facility] Comment on above: Result Comment: Nagi nelson note:LIPASE revised reference range effective 22.New Lipase methodology. Expected to produce lower valuesthan the previous assay method.NEW Reference Range: 13 - 75 U/L Performed By: #### L 500.3400, L100.0100, L500.2500, L501.2450, L501.4021 ####[facility] [address] [place], [address] Liver Profileon 04-22-2024 Albumin [Mass/Vol] 4.2 g/dL Normal 3.4-4.8 [facility] Comment on above: Performed By: #### L 500.3400, L100.0100, L500.2500, L501.2450, L501.4021 ####[facility] [address] [place], [address] ALK PHOS 69 U/L Normal 40-129 [facility] Comment on above: Performed By: #### L 500.3400, L100.0100, L500.2500, L501.2450, L501.4021 ####[facility] [address] [place], [address] ALT [Catalytic activity/Vol] 29 U/L Normal <=46 [facility] Comment on above: Performed By: #### L 500.3400, L100.0100, L500.2500, L501.2450, L501.4021 ####[facility] [address] [place], [address] AST [Catalytic activity/Vol] 33 U/L Normal <=37 [facility] Comment on above: Performed By: #### L 500.3400, L100.0100, L500.2500, L501.2450, L501.4021 ####[facility] [address] [place], [address] Bilirubin [Mass/Vol] 0.56 mg/dL Normal 0.00-1.30 [facility] Comment on above: Performed By: #### L 500.3400, L100.0100, L500.2500, L501.2450, L501.4021 ####[facility] [address] [place], [address] Bilirubin.direct [Mass/Vol] 0.32 mg/dL High 0.00-0.30 [facility] Comment on above: Performed By: #### L 500.3400, L100.0100, L500.2500, L501.2450, L501.4021 ####[facility] [address] [place], [address] Globulin (S) [Mass/Vol] 2.9 g/dL Normal 2.2-4.2 [facility] Comment on above: Performed By: #### L 500.3400, L100.0100, L500.2500, L501.2450, L501.4021 ####[facility] [address] [place], [address] T PROT 7.1 g/dL Normal 5.9-8.4 [facility] Comment on above: Performed By: #### L 500.3400, L100.0100, L500.2500, L501.2450, L501.4021 ####[facility] [address] [place], [address] Lumbar Spine 2 or 3 Viewson 04-22-2024 Lumbar Spine 2 or 3 Views Normal [facility] Prothrombin Time w/INRon INR Coag (PPP) [Relative time] 0.9 {INR} Normal [facility] Comment on above: Performed By: #### L 300.3900 ####[facility] [address] [place], [address] PT Coag (PPP) [Time] 12.3 s Normal 11.7-14.9 [facility] Comment on above: Performed By: #### L 300.3900 ####[facility] [address] [place], [address] Spine Cervical without Contr ason 04-22-2024 Spine Cervical without Contras Normal [facility] CBC W/Diff, Automatedon - Absolute Lymph 0.78 X10 3/uL Low 0.83-4.51 [facility] Comment on above: Performed By: #### L 100.0100, L500.4050, L501.2450 ####[facility] [address] [place], [address] Absolute Neut 3.2 X10 3/uL Normal 2.0-7.7 [facility] Comment on above: Performed By: #### L 100.0100, L500.4050, L501.2450 ####[facility] [address] [place], [address] Basophils/100 WBC (Bld) 0.7 % Normal 0-1 [facility] Comment on above: Performed By: #### L 100.0100, L500.4050, L501.2450 ####[facility] [address] [place], [address] Eosinophils/100 WBC (Bld) 0.2 % Normal 0-5 [facility] Comment on above: Performed By: #### L 100.0100, L500.4050, L501.2450 ####[facility] [address] [place], [address] Erythrocyte distribution width (RBC) [Ratio] 13.7 % Normal 11.6-14.6 [facility] Comment on above: Performed By: #### L 100.0100, L500.4050, L501.2450 ####[facility] [address] [place], [address] Hematocrit (Bld) [Volume fraction] 44.9 % Normal 40-54 [facility] Comment on above: Performed By: #### L 100.0100, L500.4050, L501.2450 ####[facility] [address] [place], [address] Hemoglobin (Bld) [Mass/Vol] 14.9 g/dL Normal 13.0-16.5 [facility] Comment on above: Performed By: #### L 100.0100, L500.4050, L501.2450 ####[facility] [address] [place], [address] IG% 0.400 Normal 0.0-0.9 [facility] Comment on above: Result Comment: IG% - Immature Granulocytes (promyelocytes, myelocytes andmetamyelocytes) > 1% indicates that a LEFT SHIFT is Present. Performed By: #### L 100.0100, L500.4050, L501.2450 ####[facility] [address] [place], [address] Lymphocytes/100 WBC (Bld) 17.0 % Low 19-41 [facility] Comment on above: Performed By: #### L 100.0100, L500.4050, L501.2450 ####[facility] [address] [place], [address] MCH (RBC) [Entitic mass] 32.0 pg Normal 27.0-32.0 [facility] Comment on above: Performed By: #### L 100.0100, L500.4050, L501.2450 ####[facility] [address] [place], [address] MCHC (RBC) [Mass/Vol] 33.2 g/dL Normal 32-36 [facility] Comment on above: Performed By: #### L 100.0100, L500.4050, L501.2450 ####[facility] [address] [place], [address] MCV (RBC) [Entitic vol] 96.4 fL High 80-94 [facility] Comment on above: Performed By: #### L 100.0100, L500.4050, L501.2450 ####[facility] [address] [place], [address] Monocytes/100 WBC (Bld) 12.4 % High 0-10 [facility] Comment on above: Performed By: #### L 100.0100, L500.4050, L501.2450 ####[facility] [address] [place], [address] Neutrophils/100 WBC (Bld) 69.3 % Normal 47-70 [facility] Comment on above: Performed By: #### L 100.0100, L500.4050, L501.2450 ####[facility] [address] [place], [address] Nucleated RBC (Bld) [#/Vol] 0 10*3/uL Normal 0-5 [facility] Comment on above: Performed By: #### L 100.0100, L500.4050, L501.2450 ####[facility] [address] [place], [address] Platelet mean volume (Bld) [Entitic vol] 9.6 fL Normal 6.2-12.0 [facility] Comment on above: Performed By: #### L 100.0100, L500.4050, L501.2450 ####[facility] [address] [place], [address] Platelets (Bld) [#/Vol] 240 10*3/uL Normal 150-450 [facility] Comment on above: Performed By: #### L 100.0100, L500.4050, L501.2450 ####[facility] [address] [place], [address] RBC (Bld) [#/Vol] 4.66 10*6/uL Normal 4.6-6.2 [facility] Comment on above: Performed By: #### L 100.0100, L500.4050, L501.2450 ####[facility] [address] [place], [address] RDW SD 48.6 fl High 35.1-43.9 [facility] Comment on above: Performed By: #### L 100.0100, L500.4050, L501.2450 ####[facility] [address] [place], [address] WBC (Bld) [#/Vol] 4.6 10*3/uL Normal 4.4-11.0 [facility] Comment on above: Performed By: #### L 100.0100, L500.4050, L501.2450 ####[facility] [address] [place], [address] [facility] 03-07-2024 Albumin [Mass/Vol] 3.9 g/dL Normal 3.2-5.0 [facility] Comment on above: Performed By: #### L 100.0100, L500.4050, L501.2450 ####[facility] [address] [place], [address] Albumin/Globulin [Mass ratio] 0.9 {ratio} Normal 0.9-2.4 [facility] Comment on above: Performed By: #### L 100.0100, L500.4050, L501.2450 ####[facility] [address] [place], [address] ALK P 77 U/L Normal 45-117 [facility] Comment on above: Performed By: #### L 100.0100, L500.4050, L501.2450 ####[facility] [address] [place], [address] ALT [Catalytic activity/Vol] 56 U/L Normal 16-61 [facility] Comment on above: Performed By: #### L 100.0100, L500.4050, L501.2450 ####[facility] [address] [place], [address] AST [Catalytic activity/Vol] 67 U/L High 15-37 [facility] Comment on above: Performed By: #### L 100.0100, L500.4050, L501.2450 ####[facility] [address] [place], [address] Bilirubin [Mass/Vol] 1.10 mg/dL High 0.20-1.00 [facility] Comment on above: Result Comment: For patients on eltrombopag therapy, use of [employer]ension [place] TBIL is not recommended. Performed By: #### L 100.0100, L500.4050, L501.2450 ####[facility] [address] [place], [address] BUN/CRE 8.1 RATIO Low 10-20 [facility] Comment on above: Performed By: #### L 100.0100, L500.4050, L501.2450 ####[facility] [address] [place], [address] CA,Total 10.2 mg/dL High 8.5-10.1 [facility] Comment on above: Performed By: #### L 100.0100, L500.4050, L501.2450 ####[facility] [address] [place], [address] Chloride [Moles/Vol] 95 mmol/L Low 98-107 [facility] Comment on above: Performed By: #### L 100.0100, L500.4050, L501.2450 ####[facility] [address] [place], [address] CO2 [Moles/Vol] 34.0 mmol/L High 21.0-32.0 [facility] Comment on above: Performed By: #### L 100.0100, L500.4050, L501.2450 ####[facility] [address] [place], [address] Creatinine [Mass/Vol] 0.99 mg/dL Normal 0.70-1.30 [facility] Comment on above: Result Comment: The validity of the calculated GFR GFRAA in patients over70 years has not been determined. Clinical correlation isessential. Performed By: #### L 100.0100, L500.4050, L501.2450 ####[facility] [address] [place], [address] ECRCL 80.87 ml/min Normal [facility] Comment on above: Performed By: #### L 100.0100, L500.4050, L501.2450 ####[facility] [address] [place], [address] EST GFR - AA 94 mL/min Normal >60 [facility] Comment on above: Result Comment: Afri can [place] GFR Calc Performed By: #### L 100.0100, L500.4050, L501.2450 ####[facility] [address] [place], [address] GAP 6 Normal 5-15 [facility] Comment on above: Performed By: #### L 100.0100, L500.4050, L501.2450 ####[facility] [address] [place], [address] GFR/1.73 sq M.predicted among non-blacks MDRD (S/P/Bld) [Vol rate/Area] 78 mL/min/{1.73_m2} Normal >60 [facility] Comment on above: Result Comment: Non- GFR Calc Performed By: #### L 100.0100, L500.4050, L501.2450 ####[facility] [address] [place], [address] Globulin (S) [Mass/Vol] 4.2 g/dL Normal 2.2-4.2 [facility] Comment on above: Performed By: #### L 100.0100, L500.4050, L501.2450 ####[facility] [address] [place], [address] Glucose [Mass/Vol] 101 mg/dL Normal 74-106 [facility] Comment on above: Result Comment: Fast ing Glucose result from 100 to 125 mg/dLsuggests IMPAIRED HOMEOSTASIS per A.D.A. criteria. Performed By: #### L 100.0100, L500.4050, L501.2450 ####[facility] [address] [place], [address] Potassium [Moles/Vol] 3.7 mmol/L Normal 3.5-5.1 [facility] Comment on above: Performed By: #### L 100.0100, L500.4050, L501.2450 ####[facility] [address] [place], [address] Sodium [Moles/Vol] 135 mmol/L Low 136-145 [facility] Comment on above: Performed By: #### L 100.0100, L500.4050, L501.2450 ####[facility] [address] [place], [address] T PROT 8.1 g/dL Normal 6.4-8.2 [facility] Comment on above: Performed By: #### L 100.0100, L500.4050, L501.2450 ####[facility] [address] [place], [address] Urea nitrogen [Mass/Vol] 8 mg/dL Normal 7-18 [facility] Comment on above: Performed By: #### L 100.0100, L500.4050, L501.2450 ####[facility] [address] [place], [address] Emergency Department Summary on 03-07-2024 Emergency Department Summary Normal [facility] Lipaseon 03-07-2024 Lipase [Catalytic activity/Vol] 58 U/L Normal 13-75 [facility] Comment on above: Result Comment: Nagi nelson note:LIPASE revised reference range effective 22.New Lipase methodology. Expected to produce lower valuesthan the previous assay method.NEW Reference Range: 13 - 75 U/L Performed By: #### L 100.0100, L500.4050, L501.2450 ####[facility] [address] [place], [address] CBC W/Diff, Automatedon 02-08 Absolute Lymph 1.18 X10 3/uL Normal 0.83-4.51 [facility] Comment on above: Performed By: #### L 100.0100 ####[facility] [address] [place], [address] Absolute Neut 2.0 X10 3/uL Normal 2.0-7.7 [facility] Comment on above: Performed By: #### L 100.0100 ####[facility] [address] [place], [address] Basophils/100 WBC (Bld) 1.2 % High 0-1 [facility] Comment on above: Performed By: #### L 100.0100 ####[facility] [address] [place], [address] Eosinophils/100 WBC (Bld) 2.1 % Normal 0-5 [facility] Comment on above: Performed By: #### L 100.0100 ####[facility] [address] [place], [address] Erythrocyte distribution width (RBC) [Ratio] 13.8 % Normal 11.6-14.6 [facility] Comment on above: Performed By: #### L 100.0100 ####[facility] [address] [place], [address] Hematocrit (Bld) [Volume fraction] 42.2 % Normal 40-54 [facility] Comment on above: Performed By: #### L 100.0100 ####[facility] [address] [place], [address] Hemoglobin (Bld) [Mass/Vol] 13.8 g/dL Normal 13.0-16.5 [facility] Comment on above: Performed By: #### L 100.0100 ####[facility] [address] [place], [address] IG% 0.000 Normal 0.0-0.9 [facility] Comment on above: Result Comment: IG% - Immature Granulocytes (promyelocytes, myelocytes andmetamyelocytes) > 1% indicates that a LEFT SHIFT is Present. Performed By: #### L 100.0100 ####[facility] [address] [place], [address] Lymphocytes/100 WBC (Bld) 28.2 % Normal 19-41 [facility] Comment on above: Performed By: #### L 100.0100 ####[facility] [address] [place], [address] MCH (RBC) [Entitic mass] 32.9 pg High 27.0-32.0 [facility] Comment on above: Performed By: #### L 100.0100 ####[facility] [address] [place], [address] MCHC (RBC) [Mass/Vol] 32.7 g/dL Normal 32-36 [facility] Comment on above: Performed By: #### L 100.0100 ####[facility] [address] [place], [address] MCV (RBC) [Entitic vol] 100.5 fL High 80-94 [facility] Comment on above: Performed By: #### L 100.0100 ####[facility] [address] [place], [address] Monocytes/100 WBC (Bld) 20.8 % High 0-10 [facility] Comment on above: Performed By: #### L 100.0100 ####[facility] [address] [place], [address] Neutrophils/100 WBC (Bld) 47.7 % Normal 47-70 [facility] Comment on above: Performed By: #### L 100.0100 ####[facility] [address] [place], [address] Nucleated RBC (Bld) [#/Vol] 0 10*3/uL Normal 0-5 [facility] Comment on above: Performed By: #### L 100.0100 ####[facility] [address] [place], [address] Platelet mean volume (Bld) [Entitic vol] 10.5 fL Normal 6.2-12.0 [facility] Comment on above: Performed By: #### L 100.0100 ####[facility] [address] [place], [address] Platelets (Bld) [#/Vol] 199 10*3/uL Normal 150-450 [facility] Comment on above: Performed By: #### L 100.0100 ####[facility] [address] [place], [address] RBC (Bld) [#/Vol] 4.20 10*6/uL Low 4.6-6.2 [facility] Comment on above: Performed By: #### L 100.0100 ####[facility] [address] [place], [address] RDW SD 50.9 fl High 35.1-43.9 [facility] Comment on above: Performed By: #### L 100.0100 ####[facility] [address] [place], [address] WBC (Bld) [#/Vol] 4.2 10*3/uL Low 4.4-11.0 [facility] Comment on above: Performed By: #### L 100.0100 ####[facility] [address] [place], [address] Basic Metabolic Profile (BMP )on 02-20-2024 BUN/CRE 8.8 RATIO Low 10-20 [facility] Comment on above: Performed By: #### L 500.2500, L100.0100 ####[facility] [address] [place], [address] CA,Total 8.8 mg/dL Normal 8.5-10.1 [facility] Comment on above: Performed By: #### L 500.2500, L100.0100 ####[facility] [address] [place], [address] Chloride [Moles/Vol] 99 mmol/L Normal 98-107 [facility] Comment on above: Performed By: #### L 500.2500, L100.0100 ####[facility] [address] [place], [address] CO2 [Moles/Vol] 28.0 mmol/L Normal 21.0-32.0 [facility] Comment on above: Performed By: #### L 500.2500, L100.0100 ####[facility] [address] [place], [address] Creatinine [Mass/Vol] 0.80 mg/dL Normal 0.70-1.30 [facility] Comment on above: Result Comment: The validity of the calculated GFR GFRAA in patients over70 years has not been determined. Clinical correlation isessential. Performed By: #### L 500.2500, L100.0100 ####[facility] [address] [place], [address] ECRCL 103.48 ml/min Normal [facility] Comment on above: Performed By: #### L 500.2500, L100.0100 ####[facility] [address] [place], [address] EST GFR - AA 122 mL/min Normal >60 [facility] Comment on above: Result Comment: Afri can [place] GFR Calc Performed By: #### L 500.2500, L100.0100 ####[facility] [address] [place], [address] GAP 11 Normal 5-15 [facility] Comment on above: Performed By: #### L 500.2500, L100.0100 ####[facility] [address] [place], [address] GFR/1.73 sq M.predicted among non-blacks MDRD (S/P/Bld) [Vol rate/Area] 101 mL/min/{1.73_m2} Normal >60 [facility] Comment on above: Result Comment: Non- GFR Calc Performed By: #### L 500.2500, L100.0100 ####[facility] [address] [place], [address] Glucose [Mass/Vol] 80 mg/dL Normal 74-106 [facility] Comment on above: Performed By: #### L 500.2500, L100.0100 ####[facility] [address] [place], [address] Potassium [Moles/Vol] 3.8 mmol/L Normal 3.5-5.1 [facility] Comment on above: Performed By: #### L 500.2500, L100.0100 ####[facility] [address] [place], [address] Sodium [Moles/Vol] 138 mmol/L Normal 136-145 [facility] Comment on above: Performed By: #### L 500.2500, L100.0100 ####[facility] [address] [place], [address] Urea nitrogen [Mass/Vol] 7 mg/dL Normal 7-18 [facility] Comment on above: Performed By: #### L 500.2500, L100.0100 ####[facility] [address] [place], [address] CBC W/Diff, Automatedon 02-07-2024 Absolute Lymph 1.34 X10 3/uL Normal 0.83-4.51 [facility] Comment on above: Performed By: #### L 500.2500, L100.0100 ####[facility] [address] [place], [address] Absolute Neut 3.0 X10 3/uL Normal 2.0-7.7 [facility] Comment on above: Performed By: #### L 500.2500, L100.0100 ####[facility] [address] [place], [address] Basophils/100 WBC (Bld) 0.4 % Normal 0-1 [facility] Comment on above: Performed By: #### L 500.2500, L100.0100 ####[facility] [address] [place], [address] Eosinophils/100 WBC (Bld) 2.0 % Normal 0-5 [facility] Comment on above: Performed By: #### L 500.2500, L100.0100 ####[facility] [address] [place], [address] Erythrocyte distribution width (RBC) [Ratio] 14.2 % Normal 11.6-14.6 [facility] Comment on above: Performed By: #### L 500.2500, L100.0100 ####[facility] [address] [place], [address] Hematocrit (Bld) [Volume fraction] 41.0 % Normal 40-54 [facility] Comment on above: Performed By: #### L 500.2500, L100.0100 ####[facility] [address] [place], [address] Hemoglobin (Bld) [Mass/Vol] 13.7 g/dL Normal 13.0-16.5 [facility] Comment on above: Performed By: #### L 500.2500, L100.0100 ####[facility] [address] [place], [address] IG% 0.400 Normal 0.0-0.9 [facility] Comment on above: Result Comment: IG% - Immature Granulocytes (promyelocytes, myelocytes andmetamyelocytes) > 1% indicates that a LEFT SHIFT is Present. Performed By: #### L 500.2500, L100.0100 ####[facility] [address] [place], [address] Lymphocytes/100 WBC (Bld) 26.2 % Normal 19-41 [facility] Comment on above: Performed By: #### L 500.2500, L100.0100 ####[facility] [address] [place], [address] MCH (RBC) [Entitic mass] 32.9 pg High 27.0-32.0 [facility] Comment on above: Performed By: #### L 500.2500, L100.0100 ####[facility] [address] [place], [address] MCHC (RBC) [Mass/Vol] 33.4 g/dL Normal 32-36 [facility] Comment on above: Performed By: #### L 500.2500, L100.0100 ####[facility] [address] [place], [address] MCV (RBC) [Entitic vol] 98.6 fL High 80-94 [facility] Comment on above: Performed By: #### L 500.2500, L100.0100 ####[facility] [address] [place], [address] Monocytes/100 WBC (Bld) 12.3 % High 0-10 [facility] Comment on above: Performed By: #### L 500.2500, L100.0100 ####[facility] [address] [place], [address] Neutrophils/100 WBC (Bld) 58.7 % Normal 47-70 [facility] Comment on above: Performed By: #### L 500.2500, L100.0100 ####[facility] [address] [place], [address] Nucleated RBC (Bld) [#/Vol] 0 10*3/uL Normal 0-5 [facility] Comment on above: Performed By: #### L 500.2500, L100.0100 ####[facility] [address] [place], [address] Platelet mean volume (Bld) [Entitic vol] 9.4 fL Normal 6.2-12.0 [facility] Comment on above: Performed By: #### L 500.2500, L100.0100 ####[facility] [address] [place], [address] Platelets (Bld) [#/Vol] 107 10*3/uL Low 150-450 [facility] Comment on above: Performed By: #### L 500.2500, L100.0100 ####[facility] [address] [place], [address] RBC (Bld) [#/Vol] 4.16 10*6/uL Low 4.6-6.2 [facility] Comment on above: Performed By: #### L 500.2500, L100.0100 ####[facility] [address] [place], [address] RDW SD 50.7 fl High 35.1-43.9 [facility] Comment on above: Performed By: #### L 500.2500, L100.0100 ####[facility] [address] [place], [address] WBC (Bld) [#/Vol] 5.1 10*3/uL Normal 4.4-11.0 [facility] Comment on above: Performed By: #### L 500.2500, L100.0100 ####[facility] [address] [place], [address] Emergency Department Summary on 02-20-2024 Emergency Department Summary Normal [facility] Plastic Surgery Visit Report on 02-03-2024 Plastic Surgery Visit Report Normal [facility] Plastic Surgery Visit Report on 01-27-2024 Plastic Surgery Visit Report Normal [facility] Surgery Specimen Level Ibis 01-27-2024 Surgery Specimen Level IV Normal [facility] Comment on above: Performed By: #### P SUIV ####[facility] [address] [place], [address] Plastic Surgery Visit Report on 12-30-2023 Plastic Surgery Visit Report Normal [facility] 12 Lead EKGon 12-18-2023 12 Lead EKG Normal [facility] CBC W/Diff, Automatedon 11- Absolute Lymph 2.50 X10 3/uL Normal 0.83-4.51 [facility] Comment on above: Performed By: #### L 501.2450, L501.4020, L100.0100, L500.4050 ####[facility] [address] [place], [address] Absolute Neut 3.5 X10 3/uL Normal 2.0-7.7 [facility] Comment on above: Performed By: #### L 501.2450, L501.4020, L100.0100, L500.4050 ####[facility] [address] [place], [address] Basophils/100 WBC (Bld) 0.6 % Normal 0-1 [facility] Comment on above: Performed By: #### L 501.2450, L501.4020, L100.0100, L500.4050 ####[facility] [address] [place], [address] Eosinophils/100 WBC (Bld) 0.7 % Normal 0-5 [facility] Comment on above: Performed By: #### L 501.2450, L501.4020, L100.0100, L500.4050 ####[facility] [address] [place], [address] Erythrocyte distribution width (RBC) [Ratio] 13.4 % Normal 11.6-14.6 [facility] Comment on above: Performed By: #### L 501.2450, L501.4020, L100.0100, L500.4050 ####[facility] [address] [place], [address] Hematocrit (Bld) [Volume fraction] 43.9 % Normal 40-54 [facility] Comment on above: Performed By: #### L 501.2450, L501.4020, L100.0100, L500.4050 ####[facility] [address] [place], [address] Hemoglobin (Bld) [Mass/Vol] 15.1 g/dL Normal 13.0-16.5 [facility] Comment on above: Performed By: #### L 501.2450, L501.4020, L100.0100, L500.4050 ####[facility] [address] [place], [address] IG% 0.300 Normal 0.0-0.9 [facility] Comment on above: Result Comment: IG% - Immature Granulocytes (promyelocytes, myelocytes andmetamyelocytes) > 1% indicates that a LEFT SHIFT is Present. Performed By: #### L 501.2450, L501.4020, L100.0100, L500.4050 ####[facility] [address] [place], [address] Lymphocytes/100 WBC (Bld) 36.9 % Normal 19-41 [facility] Comment on above: Performed By: #### L 501.2450, L501.4020, L100.0100, L500.4050 ####[facility] [address] [place], [address] MCH (RBC) [Entitic mass] 33.8 pg High 27.0-32.0 [facility] Comment on above: Performed By: #### L 501.2450, L501.4020, L100.0100, L500.4050 ####[facility] [address] [place], [address] MCHC (RBC) [Mass/Vol] 34.4 g/dL Normal 32-36 [facility] Comment on above: Performed By: #### L 501.2450, L501.4020, L100.0100, L500.4050 ####[facility] [address] [place], [address] MCV (RBC) [Entitic vol] 98.2 fL High 80-94 [facility] Comment on above: Performed By: #### L 501.2450, L501.4020, L100.0100, L500.4050 ####[facility] [address] [place], [address] Monocytes/100 WBC (Bld) 9.7 % Normal 0-10 [facility] Comment on above: Performed By: #### L 501.2450, L501.4020, L100.0100, L500.4050 ####[facility] [address] [place], [address] Neutrophils/100 WBC (Bld) 51.8 % Normal 47-70 [facility] Comment on above: Performed By: #### L 501.2450, L501.4020, L100.0100, L500.4050 ####[facility] [address] [place], [address] Nucleated RBC (Bld) [#/Vol] 0 10*3/uL Normal 0-5 [facility] Comment on above: Performed By: #### L 501.2450, L501.4020, L100.0100, L500.4050 ####[facility] [address] [place], [address] Platelet mean volume (Bld) [Entitic vol] 9.7 fL Normal 6.2-12.0 [facility] Comment on above: Performed By: #### L 501.2450, L501.4020, L100.0100, L500.4050 ####[facility] [address] [place], [address] Platelets (Bld) [#/Vol] 235 10*3/uL Normal 150-450 [facility] Comment on above: Performed By: #### L 501.2450, L501.4020, L100.0100, L500.4050 ####[facility] [address] [place], [address] RBC (Bld) [#/Vol] 4.47 10*6/uL Low 4.6-6.2 [facility] Comment on above: Performed By: #### L 501.2450, L501.4020, L100.0100, L500.4050 ####[facility] [address] [place], [address] RDW SD 49.0 fl High 35.1-43.9 [facility] Comment on above: Performed By: #### L 501.2450, L501.4020, L100.0100, L500.4050 ####[facility] [address] [place], [address] WBC (Bld) [#/Vol] 6.8 10*3/uL Normal 4.4-11.0 [facility] Comment on above: Performed By: #### L 501.2450, L501.4020, L100.0100, L500.4050 ####[facility] [address] [place], [address] [facility] Albumin [Mass/Vol] 3.6 g/dL Normal 3.2-5.0 [facility] Comment on above: Order Comment: 'TROP ' Serial specimen #1, #2 or #3: 1 Performed By: #### L 501.2450, L501.4020, L100.0100, L500.4050 ####[facility] [address] [place], [address] Albumin/Globulin [Mass ratio] 0.9 {ratio} Normal 0.9-2.4 [facility] Comment on above: Order Comment: 'TROP ' Serial specimen #1, #2 or #3: 1 Performed By: #### L 501.2450, L501.4020, L100.0100, L500.4050 ####[facility] [address] [place], [address] ALK P 74 U/L Normal 45-117 [facility] Comment on above: Order Comment: 'TROP ' Serial specimen #1, #2 or #3: 1 Performed By: #### L 501.2450, L501.4020, L100.0100, L500.4050 ####[facility] [address] [place], [address] ALT [Catalytic activity/Vol] 29 U/L Normal 16-61 [facility] Comment on above: Order Comment: 'TROP ' Serial specimen #1, #2 or #3: 1 Performed By: #### L 501.2450, L501.4020, L100.0100, L500.4050 ####[facility] [address] [place], [address] AST [Catalytic activity/Vol] 41 U/L High 15-37 [facility] Comment on above: Order Comment: 'TROP ' Serial specimen #1, #2 or #3: 1 Performed By: #### L 501.2450, L501.4020, L100.0100, L500.4050 ####[facility] [address] [place], [address] Bilirubin [Mass/Vol] 0.30 mg/dL Normal 0.20-1.00 [facility] Comment on above: Order Comment: 'TROP ' Serial specimen #1, #2 or #3: 1 Result Comment: For patients on eltrombopag therapy, use of Dimension [place] TBIL is not recommended. Performed By: #### L 501.2450, L501.4020, L100.0100, L500.4050 ####[facility] [address] [place], [address] BUN/CRE 13.9 RATIO Normal 10-20 [facility] Comment on above: Order Comment: 'TROP ' Serial specimen #1, #2 or #3: 1 Performed By: #### L 501.2450, L501.4020, L100.0100, L500.4050 ####[facility] [address] [place], [address] CA,Total 9.2 mg/dL Normal 8.5-10.1 [facility] Comment on above: Order Comment: 'TROP ' Serial specimen #1, #2 or #3: 1 Performed By: #### L 501.2450, L501.4020, L100.0100, L500.4050 ####[facility] [address] [place], [address] Chloride [Moles/Vol] 105 mmol/L Normal 98-107 [facility] Comment on above: Order Comment: 'TROP ' Serial specimen #1, #2 or #3: 1 Performed By: #### L 501.2450, L501.4020, L100.0100, L500.4050 ####[facility] [address] [place], [address] CO2 [Moles/Vol] 25.0 mmol/L Normal 21.0-32.0 [facility] Comment on above: Order Comment: 'TROP ' Serial specimen #1, #2 or #3: 1 Performed By: #### L 501.2450, L501.4020, L100.0100, L500.4050 ####[facility] [address] [place], [address] Creatinine [Mass/Vol] 1.08 mg/dL Normal 0.70-1.30 [facility] Comment on above: Order Comment: 'TROP ' Serial specimen #1, #2 or #3: 1 Result Comment: The validity of the calculated GFR GFRAA in patients over70 years has not been determined. Clinical correlation isessential. Performed By: #### L 501.2450, L501.4020, L100.0100, L500.4050 ####[facility] [address] [place], [address] ECRCL 75.77 ml/min Normal [facility] Comment on above: Order Comment: 'TROP ' Serial specimen #1, #2 or #3: 1 Performed By: #### L 501.2450, L501.4020, L100.0100, L500.4050 ####[facility] [address] [place], [address] EST GFR - AA 86 mL/min Normal >60 [facility] Comment on above: Order Comment: 'TROP ' Serial specimen #1, #2 or #3: 1 Result Comment: Afri can [place] GFR Calc Performed By: #### L 501.2450, L501.4020, L100.0100, L500.4050 ####[facility] [address] [place], [address] GAP 8 Normal 5-15 [facility] Comment on above: Order Comment: 'TROP ' Serial specimen #1, #2 or #3: 1 Performed By: #### L 501.2450, L501.4020, L100.0100, L500.4050 ####[facility] [address] [place], [address] GFR/1.73 sq M.predicted among non-blacks MDRD (S/P/Bld) [Vol rate/Area] 71 mL/min/{1.73_m2} Normal >60 [facility] Comment on above: Order Comment: 'TROP ' Serial specimen #1, #2 or #3: 1 Result Comment: Non- GFR Calc Performed By: #### L 501.2450, L501.4020, L100.0100, L500.4050 ####[facility] [address] [place], [address] Globulin (S) [Mass/Vol] 3.9 g/dL Normal 2.2-4.2 [facility] Comment on above: Order Comment: 'TROP ' Serial specimen #1, #2 or #3: 1 Performed By: #### L 501.2450, L501.4020, L100.0100, L500.4050 ####[facility] [address] [place], [address] Glucose [Mass/Vol] 107 mg/dL High 74-106 [facility] Comment on above: Order Comment: 'TROP ' Serial specimen #1, #2 or #3: 1 Result Comment: Fast ing Glucose result from 100 to 125 mg/dLsuggests IMPAIRED HOMEOSTASIS per A.D.A. criteria. Performed By: #### L 501.2450, L501.4020, L100.0100, L500.4050 ####[facility] [address] [place], [address] Potassium [Moles/Vol] 4.2 mmol/L Normal 3.5-5.1 [facility] Comment on above: Order Comment: 'TROP ' Serial specimen #1, #2 or #3: 1 Performed By: #### L 501.2450, L501.4020, L100.0100, L500.4050 ####[facility] [address] [place], [address] Sodium [Moles/Vol] 138 mmol/L Normal 136-145 [facility] Comment on above: Order Comment: 'TROP ' Serial specimen #1, #2 or #3: 1 Performed By: #### L 501.2450, L501.4020, L100.0100, L500.4050 ####[facility] [address] [place], [address] T PROT 7.5 g/dL Normal 6.4-8.2 [facility] Comment on above: Order Comment: 'TROP ' Serial specimen #1, #2 or #3: 1 Performed By: #### L 501.2450, L501.4020, L100.0100, L500.4050 ####[facility] [address] [place], [address] Urea nitrogen [Mass/Vol] 15 mg/dL Normal 7-18 [facility] Comment on above: Order Comment: 'TROP ' Serial specimen #1, #2 or #3: 1 Performed By: #### L 501.2450, L501.4020, L100.0100, L500.4050 ####[facility] [address] [place], [address] Emergency Department Summary on 12-18-2023 Emergency Department Summary Normal [facility] L501.4020on 12-18-2023 TROPONIN-I HS 14 pg/mL Normal 3.0-78.0 [facility] Comment on above: Order Comment: 'TROP ' Serial specimen #1, #2 or #3: 1 Result Comment: Plea se Note: New Test Units and Gender Specific Reference Ranges. For more information see Policy Stat Procedure [place] High Sensitivity Troponin (TNIH) and attachments. Performed By: #### L 501.2450, L501.4020, L100.0100, L500.4050 ####[facility] [address] [place], [address] Lipaseon 12-18-2023 Lipase [Catalytic activity/Vol] 58 U/L Normal 13-75 [facility] Comment on above: Order Comment: 'TROP ' Serial specimen #1, #2 or #3: 1 Result Comment: Plea se note:LIPASE revised reference range effective 22.New Lipase methodology. Expected to produce lower valuesthan the previous assay method.NEW Reference Range: 13 - 75 U/L Performed By: #### L 501.2450, L501.4020, L100.0100, L500.4050 ####[facility] [address] [place], [address] Urinalysis, Completeon 12-17 BACTERIA Normal None Seen [facility] Comment on above: Order Comment: CLEAN CATCH Result Comment: PT D ISCHARGED Performed By: #### L 400.0001 ####[facility] [address] [place], [address] BILIRUBIN URINE Normal Negative [facility] Comment on above: Order Comment: CLEAN CATCH Result Comment: PT D ISCHARGED Performed By: #### L 400.0001 ####[facility] [address] [place], [address] Clarity (U) Normal Clear [facility] Comment on above: Order Comment: CLEAN CATCH Result Comment: PT D ISCHARGED Performed By: #### L 400.0001 ####[facility] [address] [place], [address] Color (U) Normal Yellow [facility] Comment on above: Order Comment: CLEAN CATCH Result Comment: PT D ISCHARGED Performed By: #### L 400.0001 ####[facility] [address] [place], [address] EPI,SQUAMOUS Normal 0-5 [facility] Comment on above: Order Comment: CLEAN CATCH Result Comment: PT D ISCHARGED Performed By: #### L 400.0001 ####[facility] [address] [place], [address] GLUCOSE, UR Normal Normal [facility] Comment on above: Order Comment: CLEAN CATCH Result Comment: PT D ISCHARGED Performed By: #### L 400.0001 ####[facility] [address] [place], [address] KETONE UR Normal Negative [facility] Comment on above: Order Comment: CLEAN CATCH Result Comment: PT D ISCHARGED Performed By: #### L 400.0001 ####[facility] [address] [place], [address] LEUK ESTERASE Normal Negative [facility] Comment on above: Order Comment: CLEAN CATCH Result Comment: PT D ISCHARGED Performed By: #### L 400.0001 ####[facility] [address] [place], [address] Mucus Ql (Urine sed) Normal [facility] Comment on above: Order Comment: CLEAN CATCH Result Comment: PT D ISCHARGED Performed By: #### L 400.0001 ####[facility] [address] [place], [address] Nitrite Ql (U) Normal Negative [facility] Comment on above: Order Comment: CLEAN CATCH Result Comment: PT D ISCHARGED Performed By: #### L 400.0001 ####[facility] [address] [place], [address] OCCULT BLOOD-UR Normal Negative [facility] Comment on above: Order Comment: CLEAN CATCH Result Comment: PT D ISCHARGED Performed By: #### L 400.0001 ####[facility] [address] [place], [address] pH UR Normal 5.0 - 8.0 [facility] Comment on above: Order Comment: CLEAN CATCH Result Comment: PT D ISCHARGED Performed By: #### L 400.0001 ####[facility] [address] [place], [address] PROT DIPSTX Normal Negative [facility] Comment on above: Order Comment: CLEAN CATCH Result Comment: PT D ISCHARGED Performed By: #### L 400.0001 ####[facility] [address] [place], [address] RBC Normal 0-5 [facility] Comment on above: Order Comment: CLEAN CATCH Result Comment: PT D ISCHARGED Performed By: #### L 400.0001 ####[facility] [address] [place], [address] SP.GR. DIPSTX Normal 1.002-1.030 [facility] Comment on above: Order Comment: CLEAN CATCH Result Comment: PT D ISCHARGED Performed By: #### L 400.0001 ####[facility] [address] [place], [address] UR Preservative Normal [facility] Comment on above: Order Comment: CLEAN CATCH Result Comment: PT D ISCHARGED Performed By: #### L 400.0001 ####[facility] [address] [place], [address] UROBILI Normal Normal [facility] Comment on above: Order Comment: CLEAN CATCH Result Comment: PT D ISCHARGED Performed By: #### L 400.0001 ####[facility] [address] [place], [address] WBC Normal 0-5 [facility] Comment on above: Order Comment: CLEAN CATCH Result Comment: PT D ISCHARGED Performed By: #### L 400.0001 ####[facility] [address] [place], [address] Lipaseon 12-09-2023 Lipase [Catalytic activity/Vol] 58 U/L Normal 13-75 [facility] Comment on above: Result Comment: Plea se note:LIPASE revised reference range effective 22.New Lipase methodology. Expected to produce lower valuesthan the previous assay method.NEW Reference Range: 13 - 75 U/L Performed By: #### L 501.2450, L500.3400 ####[facility] [address] [place], [address] Liver Profileon 12-09-2023 Albumin [Mass/Vol] 3.5 g/dL Normal 3.2-5.0 [facility] Comment on above: Performed By: #### L 501.2450, L500.3400 ####[facility] [address] [place], [address] ALK P 70 U/L Normal 45-117 [facility] Comment on above: Performed By: #### L 501.2450, L500.3400 ####[facility] [address] [place], [address] ALT [Catalytic activity/Vol] 35 U/L Normal 16-61 [facility] Comment on above: Performed By: #### L 501.2450, L500.3400 ####[facility] [address] [place], [address] AST [Catalytic activity/Vol] 31 U/L Normal 15-37 [facility] Comment on above: Performed By: #### L 501.2450, L500.3400 ####[facility] [address] [place], [address] Bilirubin [Mass/Vol] 0.70 mg/dL Normal 0.20-1.00 [facility] Comment on above: Result Comment: For patients on eltrombopag therapy, use of Dimension [place] TBIL is not recommended. Performed By: #### L 501.2450, L500.3400 ####[facility] [address] [place], [address] Bilirubin.direct [Mass/Vol] 0.25 mg/dL Normal 0.00-0.30 [facility] Comment on above: Performed By: #### L 501.2450, L500.3400 ####[facility] [address] [place], [address] Globulin (S) [Mass/Vol] 4.0 g/dL Normal 2.2-4.2 [facility] Comment on above: Performed By: #### L 501.2450, L500.3400 ####[facility] [address] [place], [address] T PROT 7.5 g/dL Normal 6.4-8.2 [facility] Comment on above: Performed By: #### L 501.2450, L500.3400 ####[facility] [address] [place], [address] Surgery Specimen Level Ibis 12-09-2023 Surgery Specimen Level IV Normal [facility] Comment on above: Performed By: #### P SUIV ####[facility] [address] [place], [address] PROGRESSon 04-01-2018 Protein mass conc HNO ID: [id number] Author: Ki Galaviz Service: (none) Author Type: Physician Type: Progress Notes Filed: 04/01/2018 9:54 AM Note Text: OPERATIVE NOTATION FOR [facility] SURGICAL PROCEDURE. March 17, 2018 Brian Segura 1950 [id number] male PROCEDURE: EGD WITH BIOPSY - [id number] SURGEON: Baljit Galaviz M.D. FACS ME[employer] GRADING MACHINE OPERATOR: None DEPT: [facility] PROVIDER: [id number] Galaviz MD POS: [id number] DIAGNOSIS: (K92.0) Hematemesis, presence of nausea not [...] in the [facility] dictation system. Ki Galaviz MD [facility] Encounters Encounter Date Encounter Type Care Provider Facility Start: 11-09-2024 End: 11-09-2024 Emergency department patient visit [facility] Facility:[facility] Start: 11-06-2024 End: 11-07-2024 Emergency department patient visit [facility] Facility:[facility] Start: 10-15-2024 End: 10-15-2024 Emergency department patient visit Michele Dennison Facility:[facility] Start: 10-13-2024 End: 10-13-2024 Emergency department patient visit Brock Garcia Facility:[facility] Start: 10-13-2024 End: 10-13-2024 Emergency department patient visit Mingo Haddad Facility:[facility] Start: 10-01-2024 End: 10-01-2024 Emergency department patient visit [facility] Facility:[facility] Start: 07-25-2024 End: 07-25-2024 Emergency department patient visit Guicho Omalley Facility:[facility] Start: 07-14-2024 End: 07-14-2024 Emergency department patient visit Alfred Bailey Facility:[facility] Start: 07-10-2024 End: 07-10-2024 ambulatory Milena Smith Facility:[facility] Start: 07-05-2024 End: 07-05-2024 ambulatory Milena Smith Facility:[facility] Start: 06-21-2024 End: 06-21-2024 ambulatory Alfred Bailey Facility:[facility] Start: 06-07-2024 End: 06-07-2024 Emergency department patient visit Brock RichardfideliajlAdamsIsidro Facility:[facility] Start: 05-28-2024 End: 05-28-2024 Emergency department patient visit Alfred Bailey Facility:[facility] Start: 05-26-2024 End: 05-26-2024 Emergency department patient visit Alfred Bailey Facility:[facility] Start: 05-21-2024 ambulatory Romina Guzehraa OLS Facili ty:[facility] Start: 04-30-2024 ambulatory Romina Gudla OLS Facili ty:[facility] Start: 04-22-2024 End: 04-27-2024 ambulatory David Cespedes Facility:[facility] Start: 03-07-2024 End: 03-07-2024 Emergency department patient visit Alfred Bailey Facility:[facility] Start: 02-29-2024 End: 02-29-2024 ambulatory Alfred Bailey Facility:[facility] Start: 02-20-2024 End: 02-20-2024 Emergency department patient visit Alfred Bailey Facility:[facility] Start: 02-03-2024 End: 02-03-2024 ambulatory Alfred Bailey Facility:[facility] Start: 01-27-2024 End: 01-27-2024 ambulatory Vishnu Doyle Facility:[facility] Start: 01-27-2024 End: 01-27-2024 ambulatory [facility] Facility:[facility] Start: 12-30-2023 End: 12-30-2023 ambulatory Vishnu Vivek Facility:[facility] Start: 12-18-2023 End: 12-19-2023 Emergency department patient visit Chino Jaimes Facility:[facility] Start: 12-09-2023 End: 12-09-2023 ambulatory Alfred Bailey Facility:[facility] Start: 04-13-2023 End: 04-14-[address] JASSON BLANK MD Facility:[facility] Start: 04-13-2023 End: 04-13-[address] JASSON BLANK MD [facility] Procedures Date Procedure Procedure Detail Performing Clinician Start: 03-24-[address] JASSON BLANK MD Arthroscopy knee med gnostic w/wo synovial bx spx DR JASSON BLANK MD Comment on above: right Arthroscopy of knee DR JASSON BLANK MD Entire knee region ( body structure) DR JASSON BLANK MD Comment on above: arthroscopic Esophagogastroduodenoscopy D R JASSON BLANK MD Tonsillectomy DR JASSON BLANK MD Immunizations Immunization Date Immunization Notes Care Provider Fa [facility] 07-10-2013 pneumococcal polysaccharide vaccine, [address] JASSON BLANK MD [facility] Payers Date Payer Category Payer Self-pay 2023 Unknown [id number] Unknown [id number] 2.16.8 [id number] Unknown [id number] 2.16.8 40.1.189706.3.579.2.462 Unknown [id number] 2.16.8 40.1.931300.3.579.2.462 Unknown [id number] 2.16.8 40.1.117516.3.579.2.462 Unknown [id number] 2.16.8 40.1.093131.3.579.2.462 Unknown [id number] 2.16.8 40.1.035105.3.579.2.462 Unknown [id number] 2.16.8 40.1.800060.3.579.2.462 Unknown [id number] 2.16.8 40.1.584722.3.579.2.462 Unknown [id number] 2.16.8 40.1.015850.3.579.2.462 Unknown [id number] 2.16.8 40.1.717976.3.579.2.462 Unknown [id number] 2.16.8 40.1.830665.3.579.2.462 Unknown [id number] 2.16.8 40.1.488431.3.579.2.462 Unknown [id number] 2.16.8 40.1.377701.3.579.2.462 Unknown [id number] 2.16.8 40.1.872902.3.579.2.462 Unknown [id number] 2.16.8 40.1.204899.3.579.2.462 Unknown [id number] 2.16.8 40.1.187362.3.579.2.462 Unknown [id number] 2.16.8 40.1.593378.3.579.2.462 Unknown [id number] 2.16.8 40.1.703041.3.579.2.462 Unknown [id number] 2.16.8 40.1.926066.3.579.2.462 Unknown [id number] 2.16.8 40.1.273603.3.579.2.462 Unknown [id number] 2.16.8 40.1.312622.3.579.2.462 Unknown [id number] 2.16.8 40.1.394314.3.579.2.462 Unknown [id number] 2.16.8 40.1.925468.3.579.2.462 Unknown [id number] 2.16.8 40.1.091297.3.579.2.462 Unknown [id number] 2.16.8 40.1.674281.3.579.2.462 Unknown [id number] 2.16.8 40.1.639792.3.579.2.462 Unknown [id number] 2.16.8 40.1.490751.3.579.2.462 Unknown [id number] 2.16.8 40.1.313014.3.579.2.462 Unknown [id number] 2.16.8 40.1.952006.3.579.2.462 Unknown [id number] 2.16.8 40.1.290363.3.579.2.462 Unknown [id number] 2.16.8 40.1.956380.3.579.2.462 Unknown [id number] 2.16.8 40.1.860040.3.579.2.462 Unknown [id number] 2.16.8 40.1.059136.3.579.2.462 Unknown [id number] 2.16.8 40.1.540278.3.579.2.462 Social History Date Type Detail Facility Tobacco smoking status Ex-smoker (finding ) [facility] Sex Assigned At Male [facility] Discharge summary note 04-27-2024 Note Date & Type Note Facility 04-27-2024 Note [facility] Consultation note 04-24-2024 Note Date & Type Note Facility 04-24-2024 Note [facility] Clinical Note 04-13-2023 Note Date & Type Note Facility 04-13-2023 Note Sinus rhythm Probable left atrial enlargement Anteroseptal infarct, age indeterminate Electronic Signature: NEVILLE UNDERWOOD MD 04/13/2023 16:41:28 [facility] Evaluation + Plan note Note Date & Type Note Facility Evaluation + Plan note No data available for this section [facility] Hospital Discharge instructions Note Date & Type Note Facility Hospital Discharge instructions No data available for this section [facility] Progress note Note Date & Type Note Facility Progress note No data available for this section [facility] Summary Purpose Family History No Family History Records Found No data available for this section No Family History Records FoundNo Family History Records Found Advance Directives No Advanced Directives Records FoundNo Advanced Directives Records FoundNo Advanced Directives Records Found Procedure Findings Note Operative Note (Enc) (GENSWS ) Progress Notes: Ki Galaviz MD 04/01/2018 9:54 AM Signed OPERATIVE NOTATION FOR [facility] SURGICAL PROCEDURE. March 17, 2018 Brian Segura 1950 [id number] male PROCEDURE: EGD WITH BIOPSY - [id number] SURGEON: Baljit Galaviz M.D. FACS MEAT GRADING MACHINE OPERATOR: None DEPT: W PROVIDER: [id number] Galaviz MD POS: [id number] DIAGNOSIS: (K92.0) Hematemesis, presence of nausea not [...] section and content) DATE CREATED AUTHOR 04/01/2018 [facility] DATE CREATED AUTHOR AUTHOR'S ORGANIZ ATION 04/14/2023 [facility] ([place]) DATE CREATED AUTHOR AUTHOR'S ORGANIZ ATION 11/20/2024 [facility] Patient Care team informatio n (unrecognized section and content) Care Team Personnel Name: KI LANZA JR, MD Member Role: Primary Care Physician Address: Address: [address] [place] [id number] Care Team Related Persons Name: URIEL SEGURA Address: Home [address] [place] [id number] US FOR RECORDS PERTAINING TO PATIENTS WHO [...] BE BASED ON THE PRIMARY CLINICAL RECORDS. [facility] [employer] [facility]. provides no warranty or guarantee of the accuracy or completeness of information in this document.
[2025-01-13] MEDS: 0.9% Normal Saline (1000mL) 1,000 ML 999 ML IV (02:37)
[2025-01-13] MEDS: DiphenhydrAMINE 50 MG/ML Syringe 25 MG IV (02:38)
[2025-01-13 02:43] VITALS: BP 128/82; PULSE 99; RESP 16; O2SAT 95
[2025-01-13 04:00] VITALS: BP 148/89; PULSE 110; RESP 16; O2SAT 97
--- NOTE | 2025-01-13 05:20 | EX.ED.DYSGE1 ---
HPI History of Present Illness Chief Complaint: Nausea/Vomiting Narrative Narrative: Patient was seen and examined after presenting to ED for nausea but no vomiting states he has absolutely no other symptoms reports in the last 10 years I have only been here 15 times I just need my nausea cocktail. PFSH [facility] Medical History Vitamin D deficiency Gout Steatosis of liver Chronic vomiting Strain of right psoas muscle Acute pain of right hip Fall Alcohol abuse Alcohol withdrawal Basal cell carcinoma of anterior chest Wears glasses Wears dentures Depression Anxiety Alcohol use Arthritis History of renal disease Back pain Injury of head and neck History of ulceration History of IBS History of diverticulitis Gastric reflux CPAP (continuous positive airway pressure) dependence Former smoker COPD (chronic obstructive pulmonary disease) Shortness of breath on exertion History of pain when walking History of edema History of stress test Encounter for screening for COVID-19 Chest wall contusion (~12/18/20) HTN (hypertension) Home Medications ?Medication ?Instructions ?Recorded ?Last Taken ?Type lisinopril 20 mg tablet 20 mg PO BID blood pressure 03/16/18 05/27/24 History pantoprazole 40 mg tablet,delayed 40 mg PO BID reflux 09/07/19 05/27/24 History release fluvoxamine 100 mg tablet 100 mg PO QHS 05/18/23 05/27/24 History amlodipine 5 mg tablet 5 mg PO DAILY 05/24/23 05/27/24 History lorazepam 0.5 mg tablet 0.5 mg PO Q6H PRN PRN Anxiety #8 04/27/24 05/27/24 Rx tabs doxepin 10 mg capsule 10 - 20 mg PO QHS PRN PRN insomnia 05/28/24 05/27/24 History promethazine 25 mg tablet 25 mg PO TID PRN PRN nausea and 11/09/24 Unknown History vomiting amitriptyline 25 mg tablet 25 mg PO QHS #30 tabs 12/21/24 Unknown Rx scopolamine base 1 mg over 3 days 1 patch transdermal Q3D PRN nausea 12/21/24 Unknown Rx transdermal patch 30 days #10 ea ondansetron 4 mg disintegrating 4 mg PO Q8H PRN PRN Nausea #30 tabs 01/13/25 Unknown Rx tablet Allergy/AdvReac Type Severity Reaction Status Date / Time amoxicillin Allergy doesnt Verified 01/13/25 01:41 rememeber fluoxetine (From Prozac) AdvReac Other Verified 01/13/25 01:41 Family History Mother Myocardial infarction Hypertension Father Cancer Hypertension Surgical History Hx of colonoscopy Hx of blepharoplasty Hx of esophagogastroduodenoscopy History of eye surgery Social History household members: none Smoking Status: Former smoker how long ago did patient quit smoking: quit 20 yr ago alcohol intake: current Alcohol type: hard liquor substance use type: does not use additional social history: personal hx of PEs ROS ROS ED ROS Narrative Pertinent Positives: Nausea Pertinent Negatives: Fevers chills chest pain pressure shortness of breath vomiting diarrhea black or bloody stools urinary symptoms The remainder of review of systems negative unless otherwise stated in the HPI above. Systems reviewed including constitutional, psychiatric, cardiovascular, respiratory, integument, HENT, gastrointestinal. EXAM Physical Exam Narrative Exam Narrative: Afebrile hemodynamically stable does not appear toxic or in distress is normocephalic and atraumatic abdomen is soft nontender nondistended. No palpable pulsatile mass is intact and equal MSPs normal heart lung sounds normal range of motion of his head and neck. Up and ambulatory without issue Const Vital Signs: 01/13/25 01:41 01/13/25 02:43 01/13/25 04:00 Temperature 98.5 F Temperature Source Oral Pulse Rate 100 99 110 H Respiratory Rate 24 H 16 16 Blood Pressure 151/94 H 128/82 H 148/89 H Blood Pressure Mean 113 97 108 Pulse Ox 100 95 97 Oxygen Delivery Method Room Air Room Air MDM MDM MDM Narrative Medical decision making narrative: Nursing notes, triage notes, available previous documentation, and vital signs were reviewed. Any discrepancies noted were addressed. Differential Diagnoses: Could be viral but he has no other symptoms Interventions: Ativan Zofran Benadryl Fluids Given: 1 L normal saline Labs Reviewed: Patient declined any labs Imaging Reviewed: Patient declined any imaging Previous Documentation Reviewed: None available or applicable at this time. ED Course: Patient presenting with nausea but absolutely no other symptoms whatsoever I offered to do labs and imaging he declined stated that he just needed his nausea cocktail that he gets every once in a while which was Ativan Benadryl and Zofran I also provided him with IV fluids is reassessed he states that he is improving we will plan to discharge return precautions follow-up recommendations provided he is stable for discharge home. This note was made utilizing voice recognition software. All attempts were made to correct spelling or other errors prior to note completion. However, due to the fast-paced nature of emergency medicine, some errors may still be present. Discharge Plan Triage Chief Complaint: Nausea/Vomiting ED Provider: Elinor Galloway Dx/Rx/DC Orders Clinical Impression: Nausea alone Instructions: ED Diet Vomiting Diarrhea Prescriptions: New ondansetron 4 mg tablet,disintegrating 4 mg PO Q8H PRN PRN (Reason: Nausea) Qty: 30 0RF No Action amlodipine 5 mg tablet 5 mg PO DAILY amitriptyline 25 mg tablet 25 mg PO QHS Qty: 30 3RF scopolamine base 1 mg over 3 days patch 3 day 1 patch transdermal Q3D PRN (Reason: nausea) 30 Days Qty: 10 3RF lisinopril 20 MG tablet 20 mg PO BID pantoprazole 40 MG tablet 40 mg PO BID fluvoxamine 100 mg tablet 100 mg PO QHS lorazepam 0.5 mg Tablet 0.5 mg PO Q6H PRN PRN (Reason: Anxiety) Qty: 8 0RF doxepin 10 mg capsule 10 - 20 mg PO QHS PRN PRN (Reason: insomnia) promethazine 25 mg tablet 25 mg PO TID PRN PRN (Reason: nausea and vomiting) Primary Care Provider: Alfred Bailey Referrals: Alfred Bailey DO [Primary Care Provider, Family Practice] Activity Restrictions/Additional Instructions: We are providing you with a prescription for Zofran you can follow-up with your primary care doctor you can always return if you feel like you are getting worse Print Language: [place] Island[place] Disposition Disposition: Home, Self Care
[2025-01-13 06:00] VITALS: BP 156/92; PULSE 81; RESP 16; TEMP 36.9; O2SAT 96
== END 2025-01-13 06:31 | disposition home or self-care (01) ==
PROVIDERS: Emergency Provider Specialist/Technologist Athletic Trainer; PCP Family Medicine; Visit Provider Specialist/Technologist Athletic Trainer
DX: R11.2 Nausea with vomiting, unspecified (principal); J44.9 Chronic obstructive pulmonary disease, unspecified; I10 Essential (primary) hypertension; Z87.891 Personal history of nicotine dependence; Z85.828 Personal history of other malignant neoplasm of skin; Z79.899 Other long term (current) drug therapy; K21.9 Gastro-esophageal reflux disease without esophagitis; F41.9 Anxiety disorder, unspecified
CPT/HCPCS: 96361; 96374; 96375; 96376; 99283; A4216; J2405

== ENCOUNTER 2025-01-30 22:25 | Emergency (ER) | payer MEDICARE, SELFPAY ==
[2025-01-30 22:26] VITALS: BP 131/88; PULSE 84; PULSE 88; RESP 18; TEMP 35.8; O2SAT 95; O2SAT 96; BMI 38.6
--- NOTE | 2025-01-30 22:58 | ED.VIS.GI ---
HPI HPI - GI History of Present Illness Chief Complaint: Nausea/Vomiting Informant: patient Nausea/Vomiting/Emesis GI Symptom: Positive for Nausea Onset: Hours (1) Diarrhea/Melena/Hematochezia GI Symptom: Negative for Diarrhea, Melena or Hematochezia Associated Symptoms Associated Symptoms: Negative for Dysuria, Frequency or Hematuria Narrative Narrative: Patient presents with nausea that began tonight. Patient states he has been having some dry heaves but is unable to vomit anything. Patient denies any abdominal pain. Patient states he gets this occasionally. Patient states that when he gets this, he comes to the emergency department and is given Ativan, Benadryl, and Zofran. Patient states that usually helps. Patient denies any fevers or chills. Patient also admits to a sore throat. Patient denies any cough. [facility] Medical History Vitamin D deficiency Gout Steatosis of liver Chronic vomiting Strain of right psoas muscle Acute pain of right hip Fall Alcohol abuse Alcohol withdrawal Basal cell carcinoma of anterior chest Wears glasses Wears dentures Depression Anxiety Alcohol use Arthritis History of renal disease Back pain Injury of head and neck History of ulceration History of IBS History of diverticulitis Gastric reflux CPAP (continuous positive airway pressure) dependence Former smoker COPD (chronic obstructive pulmonary disease) Shortness of breath on exertion History of pain when walking History of edema History of stress test Encounter for screening for COVID-19 Chest wall contusion (~12/18/20) HTN (hypertension) Home Medications ?Medication ?Instructions ?Recorded ?Last Taken ?Type lisinopril 20 mg tablet 20 mg PO BID blood pressure 03/16/18 05/27/24 History pantoprazole 40 mg tablet,delayed 40 mg PO BID reflux 09/07/19 05/27/24 History release fluvoxamine 100 mg tablet 100 mg PO QHS 05/18/23 05/27/24 History amlodipine 5 mg tablet 5 mg PO DAILY 05/24/23 05/27/24 History lorazepam 0.5 mg tablet 0.5 mg PO Q6H PRN PRN Anxiety #8 04/27/24 05/27/24 Rx tabs doxepin 10 mg capsule 10 - 20 mg PO QHS PRN PRN insomnia 05/28/24 05/27/24 History promethazine 25 mg tablet 25 mg PO TID PRN PRN nausea and 11/09/24 Unknown History vomiting amitriptyline 25 mg tablet 25 mg PO QHS #30 tabs 12/21/24 Unknown Rx scopolamine base 1 mg over 3 days 1 patch transdermal Q3D PRN nausea 12/21/24 Unknown Rx transdermal patch 30 days #10 ea ondansetron 4 mg disintegrating 4 mg PO Q8H PRN PRN Nausea #30 tabs 01/13/25 Unknown Rx tablet Allergy/AdvReac Type Severity Reaction Status Date / Time amoxicillin Allergy doesnt Verified 01/30/25 22:29 rememeber fluoxetine (From Prozac) AdvReac Other Verified 01/30/25 22:29 Family History Mother Myocardial infarction Hypertension Father Cancer Hypertension Surgical History Hx of colonoscopy Hx of blepharoplasty Hx of esophagogastroduodenoscopy History of eye surgery Social History household members: none Smoking Status: Former smoker how long ago did patient quit smoking: quit 20 yr ago alcohol intake: current Alcohol type: hard liquor substance use type: does not use additional social history: personal hx of PEs ROS ROS ED Constitutional Constitutional ED: Denies chills or fever(s) Eyes Eyes: Denies blurry vision or change in vision ENT ENT ED: Reports sore throat; Denies rhinorrhea Cardiovascular Cardiovascular: Denies chest pain or palpitations Respiratory/Chest Respiratory/Chest: Reports dyspnea; Denies cough Gastrointestinal Gastrointestinal: Reports nausea; Denies vomiting Genitourinary Genitourinary ED: Denies dysuria or hematuria Musculoskeletal Musculoskeletal: Reports back pain; Denies neck pain Integumentary Denies abscess or rash Neurologic Neurologic: Denies headache(s) or weakness Allergic/Immunologic Allergic/Immunologic ED: Denies mouth swelling or urticaria EXAM Physical Exam Const Vital Signs: 01/30/25 22:26 01/30/25 22:26 01/30/25 23:28 Temperature 96.5 F L Temperature Source Temporal Pulse Rate 88 84 Respiratory Rate 18 18 Blood Pressure 131/88 H 131/88 H Blood Pressure Mean 102 102 Pulse Ox 95 96 79 Oxygen Delivery Method Room Air Room Air Room Air Oxygen Flow Rate (L/min) 01/30/25 23:29 01/31/25 00:04 Temperature Temperature Source Pulse Rate Respiratory Rate Blood Pressure Blood Pressure Mean Pulse Ox 93 100 Oxygen Delivery Method Nasal Cannula Room Air Oxygen Flow Rate (L/min) 3 Positive well nourished and well developed General Appearance ED: well developed HEENT Reports moist mucous membranes HEENT Narrative: Oropharynx is erythematous. There is no exudate noted. Airway is patent. Neck supple and no JVD Resp normal respiratory effort and clear to auscultation bilaterally Cardio regular rate and regular rhythm GI non-tender Palpation: soft Neuro CN's II-XII intact bilaterally, moves all extremities and no sensory deficits noted Sensorium / Orientation: alert Motor Exam: strength 5/5 throughout Psych mental status grossly normal MDM MDM MDM Narrative Medical decision making narrative: Differential diagnosis includes gastritis, gastroparesis, dehydration, electrolyte abnormality, strep pharyngitis, and viral pharyngitis. Rapid strep will be obtained to assess for strep pharyngitis. CBC will be obtained to assess for leukocytosis and anemia. Basic metabolic profile will be obtained to assess for electrolyte abnormality and renal function. History & Record Review Additional record(s) reviewed:: Prior outpatient record, Prior ED visit and Prior labs Lab Data Attestation: I reviewed the patient's lab results. Lab results narrative: CBC was reviewed with normal limits. Basic metabolic profile was reviewed and was within normal limits. Rapid strep was reviewed and was negative. Labs: Laboratory Results - last 24 hr 01/30/25 22:38 WBC 5.0 RBC 4.90 Hgb 16.0 Hct 46.5 MCV 94.9 H MCH 32.7 H MCHC 34.4 RDW Std Deviation 47.5 H RDW Coeff of [place] 13.7 Plt Count 262 MPV 10.0 Immature Gran % (Auto) 0.200 Neut % (Auto) 41.4 L Lymph % (Auto) 43.4 H Nobles % (Auto) 12.4 H Eos % (Auto) 1.6 Baso % (Auto) 1.0 Absolute Neuts (auto) 2.1 Absolute Lymphs (auto) 2.17 Nucleated RBC % 0 Sodium 138 Potassium 3.5 Chloride 98 Carbon Dioxide 24.8 Anion Gap 15 BUN 6 Creatinine 0.85 Estim Creat Clear Calc 91.11 Est GFR (MDRD) Non-Af 90 BUN/Creatinine Ratio 7.4 L Glucose 100 H Calcium 8.3 Treatment and Re-Evaluation :: Patient given IV fluids, Ativan, Benadryl, and Zofran. Patient states his nausea has improved. Patient was advised of his findings. Patient was instructed to drink plenty of fluids. Patient was instructed to take Tylenol or ibuprofen as needed for any fevers or pain. Patient was instructed to follow-up with his primary care physician in 5 to 7 days. Patient understood and was agreeable with the plan. All questions were answered. Discharge Plan Triage Chief Complaint: Nausea/Vomiting ED Provider: Bogdan Grover Dx/Rx/DC Orders Clinical Impression: Viral pharyngitis, Nausea Instructions: ED Pharyngitis, Viral, ED Vomiting (Adult) Prescriptions: No Action amlodipine 5 mg tablet 5 mg PO DAILY amitriptyline 25 mg tablet 25 mg PO QHS Qty: 30 3RF scopolamine base 1 mg over 3 days patch 3 day 1 patch transdermal Q3D PRN (Reason: nausea) 30 Days Qty: 10 3RF lisinopril 20 MG tablet 20 mg PO BID pantoprazole 40 MG tablet 40 mg PO BID fluvoxamine 100 mg tablet 100 mg PO QHS lorazepam 0.5 mg Tablet 0.5 mg PO Q6H PRN PRN (Reason: Anxiety) Qty: 8 0RF doxepin 10 mg capsule 10 - 20 mg PO QHS PRN PRN (Reason: insomnia) promethazine 25 mg tablet 25 mg PO TID PRN PRN (Reason: nausea and vomiting) ondansetron 4 mg tablet,disintegrating 4 mg PO Q8H PRN PRN (Reason: Nausea) Qty: 30 0RF Primary Care Provider: Alfred Bailey Referrals: Alfred Bailey DO [Primary Care Provider, Family Practice] - 5-7 Days Print Language: Pakistani Disposition Disposition: Home, Self Care
--- OUTSIDE RECORDS SUMMARY | 2025-01-30 23:08 | XMS RPT_ITS | CCD ---
Author Organization [facility]ini[facility] Care Team Providers Care Retail Account Manager Name Role Phone POOL MISTRY, DR KI [...] Referring Unavailable [employer] Unavailable Alfred Griajlva Consulting Unavailable Alfred Grijalva Attending Unavailable Mingo Haddad Attending Unavailable Lynn, Alfred Primary Care Unavailable David Cespedes Consulting Unavailable David Cespedes Admitting Unavailable Lynn, Alfred Primary Care Unavailable Teraylin, Alfred Attending Unavailable [employer] Unavailable Shari MEAD, Romina Attending Unavailable Lynn, Alfred Primary Care Unavailable GuRomina Leija Referring Unavailable [...] Unavailable Lynn, Alfred Primary Care Unavailable Bandar GRANULATOR OPERATOR, Camila Lyn Attending Unavailabl e Alfred Bailey Referring Unavailable David Cespedes Attending Unavailable Allergies Allergy Classification Reported Allergen(s) Allergy Type Date of Onset Reaction(s) Facility (1 source) Amoxicillin; Translations: [amoxicillin] Drug Allergy [facility] (1 source) Amoxicillin Drug Allergy 11-09-2024 [facility] Repository (1 source) FLUoxetine Drug Allergy 11-09-2024 [facility] Repository Medications Current Medications Medication Drug [...] Inc Cheston Acute Abdomen Inc Chest Normal [facility] Basic Metabolic Profile (BMP )on 11-09-2024 BUN/CRE 11.4 RATIO Normal - [facility] Comment on above: Performed By: #### L 500.2500, L500.3400, L501.2450, L100.0100 ####[facility] [address] [place], [address] Calcium [Mass/Vol] 9.2 mg/dL Normal 7.6-11.0 [facility] Comment on above: Performed By: #### L 500.2500, L500.3400, L501.2450, L100.0100 ####[facility] [address] [place], [address] Chloride [Moles/Vol] 101 mmol/L Normal 98-108 [facility] Comment on above: Performed By: #### L 500.2500, L500.3400, L501.2450, L100.0100 ####[facility] [address] [place], [address] CO2 [Moles/Vol] 23.9 mmol/L Normal 21.0-32.0 [facility] Comment on above: Performed By: #### L 500.2500, L500.3400, L501.2450, L100.0100 ####[facility] [address] [place], [address] Creatinine [Mass/Vol] 0.81 mg/dL Normal 0.70-1.20 [facility] Comment on above: Performed By: #### L 500.2500, L500.3400, L501.2450, L100.0100 ####[facility] [address] [place], [address] ECRCL 95.34 ml/min Normal 50-250 [facility] Comment on above: Performed By: #### L 500.2500, L500.3400, L501.2450, L100.0100 ####[facility] [address] [place], [address] GAP 14 Normal 5-15 [facility] Comment on above: Performed By: #### L 500.2500, L500.3400, L501.2450, L100.0100 ####[facility] [address] [place], [address] GFR/1.73 sq M.predicted among non-blacks MDRD (S/P/Bld) [Vol rate/Area] 91 mL/min/{1.73_m2} Normal >60 [facility] Comment on above: Result Comment: mL/m in/1.73m2 CKD-EPI Creatinine Equation (2020) Performed By: #### L 500.2500, L500.3400, L501.2450, L100.0100 ####[facility] [address] [place], [address] Glucose [Mass/Vol] 131 mg/dL High 70-99 [facility] Comment on above: Performed By: #### L 500.2500, L500.3400, L501.2450, L100.0100 ####[facility] [address] [place], [address] Potassium [Moles/Vol] 4.0 mmol/L Normal 3.3-5.1 [facility] Comment on above: Result Comment: Hemo lysis present, Results??could be affected.?? Performed By: #### L 500.2500, L500.3400, L501.2450, L100.0100 ####[facility] [address] [place], [address] Sodium [Moles/Vol] 139 mmol/L Normal 133-145 [facility] Comment on above: Performed By: #### L 500.2500, L500.3400, L501.2450, L100.0100 ####[facility] [address] [place], [address] Urea nitrogen [Mass/Vol] 9 mg/dL Normal 4-19 [facility] Comment on above: Performed By: #### L 500.2500, L500.3400, L501.2450, L100.0100 ####[facility] [address] [place], [address] CBC W/Diff, Automatedon 10-0 3-2025 Absolute Lymph 2.26 X10 3/uL Normal 0.83-4.51 [facility] Comment on above: Performed By: #### L 500.2500, L500.3400, L501.2450, L100.0100 ####[facility] [address] [place], [address] Absolute Neut 4.1 X10 3/uL Normal 2.0-7.7 [facility] Comment on above: Performed By: #### L 500.2500, L500.3400, L501.2450, L100.0100 ####[facility] [address] [place], [address] Basophils/100 WBC (Bld) 0.5 % Normal 0-1 [facility] Comment on above: Performed By: #### L 500.2500, L500.3400, L501.2450, L100.0100 ####[facility] [address] [place], [address] Eosinophils/100 WBC (Bld) 3.7 % Normal 0-5 [facility] Comment on above: Performed By: #### L 500.2500, L500.3400, L501.2450, L100.0100 ####[facility] [address] [place], [address] Erythrocyte distribution width (RBC) [Ratio] 13.8 % Normal 11.6-14.6 [facility] Comment on above: Performed By: #### L 500.2500, L500.3400, L501.2450, L100.0100 ####[facility] [address] [place], [address] Hematocrit (Bld) [Volume fraction] 43.7 % Normal 40-54 [facility] Comment on above: Performed By: #### L 500.2500, L500.3400, L501.2450, L100.0100 ####[facility] [address] [place], [address] Hemoglobin (Bld) [Mass/Vol] 15.1 g/dL Normal 13.0-16.5 [facility] Comment on above: Performed By: #### L 500.2500, L500.3400, L501.2450, L100.0100 ####[facility] [address] [place], [address] IG% 0.500 Normal 0.0-0.9 [facility] Comment on above: Result Comment: IG% - Immature Granulocytes (promyelocytes, myelocytes andmetamyelocytes) > 1% indicates that a LEFT SHIFT is Present. Performed By: #### L 500.2500, L500.3400, L501.2450, L100.0100 ####[facility] [address] [place], [address] Lymphocytes/100 WBC (Bld) 30.2 % Normal 19-41 [facility] Comment on above: Performed By: #### L 500.2500, L500.3400, L501.2450, L100.0100 ####[facility] [address] [place], [address] MCH (RBC) [Entitic mass] 31.4 pg Normal 27.0-32.0 [facility] Comment on above: Performed By: #### L 500.2500, L500.3400, L501.2450, L100.0100 ####[facility] [address] [place], [address] MCHC (RBC) [Mass/Vol] 34.6 g/dL Normal 32-36 [facility] Comment on above: Performed By: #### L 500.2500, L500.3400, L501.2450, L100.0100 ####[facility] [address] [place], [address] MCV (RBC) [Entitic vol] 90.9 fL Normal 80-94 [facility] Comment on above: Performed By: #### L 500.2500, L500.3400, L501.2450, L100.0100 ####[facility] [address] [place], [address] Monocytes/100 WBC (Bld) 9.6 % Normal 0-10 [facility] Comment on above: Performed By: #### L 500.2500, L500.3400, L501.2450, L100.0100 ####[facility] [address] [place], [address] Neutrophils/100 WBC (Bld) 55.5 % Normal 47-70 [facility] Comment on above: Performed By: #### L 500.2500, L500.3400, L501.2450, L100.0100 ####[facility] [address] [place], [address] Nucleated RBC (Bld) [#/Vol] 0 10*3/uL Normal 0-5 [facility] Comment on above: Performed By: #### L 500.2500, L500.3400, L501.2450, L100.0100 ####[facility] [address] [place], [address] Platelet mean volume (Bld) [Entitic vol] 10.4 fL Normal 6.2-12.0 [facility] Comment on above: Performed By: #### L 500.2500, L500.3400, L501.2450, L100.0100 ####[facility] [address] [place], [address] Platelets (Bld) [#/Vol] 276 10*3/uL Normal 150-450 [facility] Comment on above: Performed By: #### L 500.2500, L500.3400, L501.2450, L100.0100 ####[facility] [address] [place], [address] RBC (Bld) [#/Vol] 4.81 10*6/uL Normal 4.6-6.2 [facility] Comment on above: Performed By: #### L 500.2500, L500.3400, L501.2450, L100.0100 ####[facility] [address] [place], [address] RDW SD 46.2 fl High 35.1-43.9 [facility] Comment on above: Performed By: #### L 500.2500, L500.3400, L501.2450, L100.0100 ####[facility] [address] [place], [address] WBC (Bld) [#/Vol] 7.5 10*3/uL Normal 4.4-11.0 [facility] Comment on above: Performed By: #### L 500.2500, L500.3400, L501.2450, L100.0100 ####[facility] [address] [place], [address] Emergency Department Summary on 11-09-2024 Emergency Department Summary Normal [facility] Lipaseon 11-09-2024 Lipase [Catalytic activity/Vol] 38 U/L Normal 13-75 [facility] Comment on above: Result Comment: Nagi nelson note:LIPASE revised reference range effective 22.New Lipase methodology. Expected to produce lower valuesthan the previous assay method.NEW Reference Range: 13 - 75 U/L Performed By: #### L 500.2500, L500.3400, L501.2450, L100.0100 ####[facility] [address] [place], [address] Liver Profileon 11-09-2024 Albumin [Mass/Vol] 4.1 g/dL Normal 3.4-4.8 [facility] Comment on above: Performed By: #### L 500.2500, L500.3400, L501.2450, L100.0100 ####[facility] [address] [place], [address] ALK PHOS 81 U/L Normal 40-129 [facility] Comment on above: Performed By: #### L 500.2500, L500.3400, L501.2450, L100.0100 ####[facility] [address] [place], [address] ALT [Catalytic activity/Vol] 19 U/L Normal <=46 [facility] Comment on above: Performed By: #### L 500.2500, L500.3400, L501.2450, L100.0100 ####[facility] [address] [place], [address] AST [Catalytic activity/Vol] 26 U/L Normal <=37 [facility] Comment on above: Result Comment: Hemo lysis present, Results??could be affected.?? Performed By: #### L 500.2500, L500.3400, L501.2450, L100.0100 ####[facility] [address] [place], [address] Bilirubin [Mass/Vol] 0.40 mg/dL Normal 0.00-1.30 [facility] Comment on above: Performed By: #### L 500.2500, L500.3400, L501.2450, L100.0100 ####[facility] [address] [place], [address] Bilirubin.direct [Mass/Vol] 0.14 mg/dL Normal 0.00-0.30 [facility] Comment on above: Result Comment: Hemo lysis present, Results??could be affected.?? Performed By: #### L 500.2500, L500.3400, L501.2450, L100.0100 ####[facility] [address] [place], [address] Globulin (S) [Mass/Vol] 3.3 g/dL Normal 2.2-4.2 [facility] Comment on above: Performed By: #### L 500.2500, L500.3400, L501.2450, L100.0100 ####[facility] [address] [place], [address] T PROT 7.4 g/dL Normal 5.9-8.4 [facility] Comment on above: Performed By: #### L 500.2500, L500.3400, L501.2450, L100.0100 ####[facility] [address] [place], [address] Emergency Department Summary on 11-07-2024 Emergency Department Summary Normal [facility] Emergency Department Summary on 10-15-2024 Emergency Department Summary Normal [facility] Abdomen/Pelvis W IV Cont ONL Yon 10-13-2024 Abdomen/Pelvis W IV Cont ONLY Normal [facility] CBC W/Diff, Automatedon Absolute Lymph 1.85 X10 3/uL Normal 0.83-4.51 [facility] Comment on above: Performed By: #### L 500.4050, L501.2450, L100.0100 ####[facility] [address] [place], [address] Absolute Neut 6.9 X10 3/uL Normal 2.0-7.7 [facility] Comment on above: Performed By: #### L 500.4050, L501.2450, L100.0100 ####[facility] [address] [place], [address] Basophils/100 WBC (Bld) 0.4 % Normal 0-1 [facility] Comment on above: Performed By: #### L 500.4050, L501.2450, L100.0100 ####[facility] [address] [place], [address] Eosinophils/100 WBC (Bld) 1.3 % Normal 0-5 [facility] Comment on above: Performed By: #### L 500.4050, L501.2450, L100.0100 ####[facility] [address] [place], [address] Erythrocyte distribution width (RBC) [Ratio] 14.0 % Normal 11.6-14.6 [facility] Comment on above: Performed By: #### L 500.4050, L501.2450, L100.0100 ####[facility] [address] [place], [address] Hematocrit (Bld) [Volume fraction] 47.5 % Normal 40-54 [facility] Comment on above: Performed By: #### L 500.4050, L501.2450, L100.0100 ####[facility] [address] [place], [address] Hemoglobin (Bld) [Mass/Vol] 16.4 g/dL Normal 13.0-16.5 [facility] Comment on above: Performed By: #### L 500.4050, L501.2450, L100.0100 ####[facility] [address] [place], [address] IG% 0.200 Normal 0.0-0.9 [facility] Comment on above: Result Comment: IG% - Immature Granulocytes (promyelocytes, myelocytes andmetamyelocytes) > 1% indicates that a LEFT SHIFT is Present. Performed By: #### L 500.4050, L501.2450, L100.0100 ####[facility] [address] [place], [address] Lymphocytes/100 WBC (Bld) 19.1 % Normal 19-41 [facility] Comment on above: Performed By: #### L 500.4050, L501.2450, L100.0100 ####[facility] [address] [place], [address] MCH (RBC) [Entitic mass] 31.5 pg Normal 27.0-32.0 [facility] Comment on above: Performed By: #### L 500.4050, L501.2450, L100.0100 ####[facility] [address] [place], [address] MCHC (RBC) [Mass/Vol] 34.5 g/dL Normal 32-36 [facility] Comment on above: Performed By: #### L 500.4050, L501.2450, L100.0100 ####[facility] [address] [place], [address] MCV (RBC) [Entitic vol] 91.2 fL Normal 80-94 [facility] Comment on above: Performed By: #### L 500.4050, L501.2450, L100.0100 ####[facility] [address] [place], [address] Monocytes/100 WBC (Bld) 7.2 % Normal 0-10 [facility] Comment on above: Performed By: #### L 500.4050, L501.2450, L100.0100 ####[facility] [address] [place], [address] Neutrophils/100 WBC (Bld) 71.8 % High 47-70 [facility] Comment on above: Performed By: #### L 500.4050, L501.2450, L100.0100 ####[facility] [address] [place], [address] Nucleated RBC (Bld) [#/Vol] 0 10*3/uL Normal 0-5 [facility] Comment on above: Performed By: #### L 500.4050, L501.2450, L100.0100 ####[facility] [address] [place], [address] Platelet mean volume (Bld) [Entitic vol] 10.3 fL Normal 6.2-12.0 [facility] Comment on above: Performed By: #### L 500.4050, L501.2450, L100.0100 ####[facility] [address] [place], [address] Platelets (Bld) [#/Vol] 261 10*3/uL Normal 150-450 [facility] Comment on above: Performed By: #### L 500.4050, L501.2450, L100.0100 ####[facility] [address] [place], [address] RBC (Bld) [#/Vol] 5.21 10*6/uL Normal 4.6-6.2 [facility] Comment on above: Performed By: #### L 500.4050, L501.2450, L100.0100 ####[facility] [address] [place], [address] RDW SD 47.1 fl High 35.1-43.9 [facility] Comment on above: Performed By: #### L 500.4050, L501.2450, L100.0100 ####[facility] [address] [place], [address] WBC (Bld) [#/Vol] 9.7 10*3/uL Normal 4.4-11.0 [facility] Comment on above: Performed By: #### L 500.4050, L501.2450, L100.0100 ####[facility] [address] [place], [address] Absolute Lymph 1.55 X10 3/uL Normal 0.83-4.51 [facility] Comment on above: Performed By: #### L 500.4050, L501.2450, L100.0100 ####[facility] [address] [place], [address] Absolute Neut 6.2 X10 3/uL Normal 2.0-7.7 [facility] Comment on above: Performed By: #### L 500.4050, L501.2450, L100.0100 ####[facility] [address] [place], [address] Basophils/100 WBC (Bld) 0.4 % Normal 0-1 [facility] Comment on above: Performed By: #### L 500.4050, L501.2450, L100.0100 ####[facility] [address] [place], [address] Eosinophils/100 WBC (Bld) 0.8 % Normal 0-5 [facility] Comment on above: Performed By: #### L 500.4050, L501.2450, L100.0100 ####[facility] [address] [place], [address] Erythrocyte distribution width (RBC) [Ratio] 13.8 % Normal 11.6-14.6 [facility] Comment on above: Performed By: #### L 500.4050, L501.2450, L100.0100 ####[facility] [address] [place], [address] Hematocrit (Bld) [Volume fraction] 44.2 % Normal 40-54 [facility] Comment on above: Performed By: #### L 500.4050, L501.2450, L100.0100 ####[facility] [address] [place], [address] Hemoglobin (Bld) [Mass/Vol] 15.5 g/dL Normal 13.0-16.5 [facility] Comment on above: Performed By: #### L 500.4050, L501.2450, L100.0100 ####[facility] [address] [place], [address] IG% 0.200 Normal 0.0-0.9 [facility] Comment on above: Result Comment: IG% - Immature Granulocytes (promyelocytes, myelocytes andmetamyelocytes) > 1% indicates that a LEFT SHIFT is Present. Performed By: #### L 500.4050, L501.2450, L100.0100 ####[facility] [address] [place], [address] Lymphocytes/100 WBC (Bld) 18.1 % Low 19-41 [facility] Comment on above: Performed By: #### L 500.4050, L501.2450, L100.0100 ####[facility] [address] [place], [address] MCH (RBC) [Entitic mass] 31.7 pg Normal 27.0-32.0 [facility] Comment on above: Performed By: #### L 500.4050, L501.2450, L100.0100 ####[facility] [address] [place], [address] MCHC (RBC) [Mass/Vol] 35.1 g/dL Normal 32-36 [facility] Comment on above: Performed By: #### L 500.4050, L501.2450, L100.0100 ####[facility] [address] [place], [address] MCV (RBC) [Entitic vol] 90.4 fL Normal 80-94 [facility] Comment on above: Performed By: #### L 500.4050, L501.2450, L100.0100 ####[facility] [address] [place], [address] Monocytes/100 WBC (Bld) 8.3 % Normal 0-10 [facility] Comment on above: Performed By: #### L 500.4050, L501.2450, L100.0100 ####[facility] [address] [place], [address] Neutrophils/100 WBC (Bld) 72.2 % High 47-70 [facility] Comment on above: Performed By: #### L 500.4050, L501.2450, L100.0100 ####[facility] [address] [place], [address] Nucleated RBC (Bld) [#/Vol] 0 10*3/uL Normal 0-5 [facility] Comment on above: Performed By: #### L 500.4050, L501.2450, L100.0100 ####[facility] [address] [place], [address] Platelet mean volume (Bld) [Entitic vol] 9.7 fL Normal 6.2-12.0 [facility] Comment on above: Performed By: #### L 500.4050, L501.2450, L100.0100 ####[facility] [address] [place], [address] Platelets (Bld) [#/Vol] 226 10*3/uL Normal 150-450 [facility] Comment on above: Performed By: #### L 500.4050, L501.2450, L100.0100 ####[facility] [address] [place], [address] RBC (Bld) [#/Vol] 4.89 10*6/uL Normal 4.6-6.2 [facility] Comment on above: Performed By: #### L 500.4050, L501.2450, L100.0100 ####[facility] [address] [place], [address] RDW SD 45.7 fl High 35.1-43.9 [facility] Comment on above: Performed By: #### L 500.4050, L501.2450, L100.0100 ####[facility] [address] [place], [address] WBC (Bld) [#/Vol] 8.6 10*3/uL Normal 4.4-11.0 [facility] Comment on above: Performed By: #### L 500.4050, L501.2450, L100.0100 ####[facility] [address] [place], [address] Comprehensive Metabolic Prof [facility] 10-13-2024 Albumin [Mass/Vol] 4.2 g/dL Normal 3.4-4.8 [facility] Comment on above: Performed By: #### L 500.4050, L501.2450, L100.0100 ####[facility] [address] [place], [address] Albumin/Globulin [Mass ratio] 1.2 {ratio} Normal 0.9-2.4 [facility] Comment on above: Performed By: #### L 500.4050, L501.2450, L100.0100 ####[facility] [address] [place], [address] ALK PHOS 91 U/L Normal 40-129 [facility] Comment on above: Performed By: #### L 500.4050, L501.2450, L100.0100 ####[facility] [address] [place], [address] ALT [Catalytic activity/Vol] 12 U/L Normal <=46 [facility] Comment on above: Performed By: #### L 500.4050, L501.2450, L100.0100 ####[facility] [address] [place], [address] AST [Catalytic activity/Vol] 30 U/L Normal <=37 [facility] Comment on above: Result Comment: Hemo lysis present, Results??could be affected.?? Performed By: #### L 500.4050, L501.2450, L100.0100 ####[facility] [address] [place], [address] Bilirubin [Mass/Vol] 0.64 mg/dL Normal 0.00-1.30 [facility] Comment on above: Performed By: #### L 500.4050, L501.2450, L100.0100 ####[facility] [address] [place], [address] BUN/CRE 8.5 RATIO Low 10-20 [facility] Comment on above: Performed By: #### L 500.4050, L501.2450, L100.0100 ####[facility] [address] [place], [address] Calcium [Mass/Vol] 10.2 mg/dL Normal 7.6-11.0 [facility] Comment on above: Performed By: #### L 500.4050, L501.2450, L100.0100 ####[facility] [address] [place], [address] Chloride [Moles/Vol] 95 mmol/L Low 98-108 [facility] Comment on above: Performed By: #### L 500.4050, L501.2450, L100.0100 ####[facility] [address] [place], [address] CO2 [Moles/Vol] 25.9 mmol/L Normal 21.0-32.0 [facility] Comment on above: Performed By: #### L 500.4050, L501.2450, L100.0100 ####[facility] [address] [place], [address] Creatinine [Mass/Vol] 0.76 mg/dL Normal 0.70-1.20 [facility] Comment on above: Performed By: #### L 500.4050, L501.2450, L100.0100 ####[facility] [address] [place], [address] ECRCL 94.79 ml/min Normal 50-250 [facility] Comment on above: Performed By: #### L 500.4050, L501.2450, L100.0100 ####[facility] [address] [place], [address] GAP 15 Normal 5-15 [facility] Comment on above: Performed By: #### L 500.4050, L501.2450, L100.0100 ####[facility] [facility] [address] [place], [address] GFR/1.73 sq M.predicted among non-blacks MDRD (S/P/Bld) [Vol rate/Area] 93 mL/min/{1.73_m2} Normal >60 [facility] Comment on above: Result Comment: mL/m in/1.73m2 CKD-EPI Creatinine Equation (2020) Performed By: #### L 500.4050, L501.2450, L100.0100 ####[facility] [address] [place], [address] Globulin (S) [Mass/Vol] 3.7 g/dL Normal 2.2-4.2 [facility] Comment on above: Performed By: #### L 500.4050, L501.2450, L100.0100 ####[facility] [address] [place], [address] Glucose [Mass/Vol] 118 mg/dL High 70-99 [facility] Comment on above: Performed By: #### L 500.4050, L501.2450, L100.0100 ####[facility] [address] [place], [address] Potassium [Moles/Vol] 3.5 mmol/L Normal 3.3-5.1 [facility] Comment on above: Result Comment: Hemo lysis present, Results??could be affected.?? Performed By: #### L 500.4050, L501.2450, L100.0100 ####[facility] [address] [place], [address] Sodium [Moles/Vol] 136 mmol/L Normal 133-145 [facility] Comment on above: Performed By: #### L 500.4050, L501.2450, L100.0100 ####[facility] [address] [place], [address] T PROT 7.9 g/dL Normal 5.9-8.4 [facility] Comment on above: Performed By: #### L 500.4050, L501.2450, L100.0100 ####[facility] [address] [place], [address] Urea nitrogen [Mass/Vol] 6 mg/dL Normal 4-19 [facility] Comment on above: Performed By: #### L 500.4050, L501.2450, L100.0100 ####[facility] [address] [place], [address] Albumin [Mass/Vol] 3.9 g/dL Normal 3.4-4.8 [facility] Comment on above: Performed By: #### L 500.4050, L501.2450, L100.0100 ####[facility] [address] [place], [address] Albumin/Globulin [Mass ratio] 1.1 {ratio} Normal 0.9-2.4 [facility] Comment on above: Performed By: #### L 500.4050, L501.2450, L100.0100 ####[facility] [address] [place], [address] ALK PHOS 87 U/L Normal 40-129 [facility] Comment on above: Performed By: #### L 500.4050, L501.2450, L100.0100 ####[facility] [address] [place], [address] ALT [Catalytic activity/Vol] 12 U/L Normal <=46 [facility] Comment on above: Performed By: #### L 500.4050, L501.2450, L100.0100 ####[facility] [address] [place], [address] AST [Catalytic activity/Vol] 22 U/L Normal <=37 [facility] Comment on above: Performed By: #### L 500.4050, L501.2450, L100.0100 ####[facility] [address] [place], [address] Bilirubin [Mass/Vol] 0.64 mg/dL Normal 0.00-1.30 [facility] Comment on above: Performed By: #### L 500.4050, L501.2450, L100.0100 ####[facility] [address] [place], [address] BUN/CRE 9.8 RATIO Low 10-20 [facility] Comment on above: Performed By: #### L 500.4050, L501.2450, L100.0100 ####[facility] [address] [place], [address] Calcium [Mass/Vol] 10.4 mg/dL Normal 7.6-11.0 [facility] Comment on above: Performed By: #### L 500.4050, L501.2450, L100.0100 ####[facility] [address] [place], [address] Chloride [Moles/Vol] 95 mmol/L Low 98-108 [facility] Comment on above: Performed By: #### L 500.4050, L501.2450, L100.0100 ####[facility] [address] [place], [address] CO2 [Moles/Vol] 25.5 mmol/L Normal 21.0-32.0 [facility] Comment on above: Performed By: #### L 500.4050, L501.2450, L100.0100 ####[facility] [address] [place], [address] Creatinine [Mass/Vol] 0.72 mg/dL Normal 0.70-1.20 [facility] Comment on above: Performed By: #### L 500.4050, L501.2450, L100.0100 ####[facility] [address] [place], [address] ECRCL 97.38 ml/min Normal 50-250 [facility] Comment on above: Performed By: #### L 500.4050, L501.2450, L100.0100 ####[facility] [address] [place], [address] GAP 15 Normal 5-15 [facility] Comment on above: Performed By: #### L 500.4050, L501.2450, L100.0100 ####[facility] [address] [place], [address] GFR/1.73 sq M.predicted among non-blacks MDRD (S/P/Bld) [Vol rate/Area] 95 mL/min/{1.73_m2} Normal >60 [facility] Comment on above: Result Comment: mL/m in/1.73m2 CKD-EPI Creatinine Equation (2020) Performed By: #### L 500.4050, L501.2450, L100.0100 ####[facility] [address] [place], [address] Globulin (S) [Mass/Vol] 3.5 g/dL Normal 2.2-4.2 [facility] Comment on above: Performed By: #### L 500.4050, L501.2450, L100.0100 ####[facility] [address] [place], [address] Glucose [Mass/Vol] 144 mg/dL High 70-99 [facility] Comment on above: Performed By: #### L 500.4050, L501.2450, L100.0100 ####[facility] [address] [place], [address] Potassium [Moles/Vol] 3.1 mmol/L Low 3.3-5.1 [facility] Comment on above: Performed By: #### L 500.4050, L501.2450, L100.0100 ####[facility] [address] [place], [address] Sodium [Moles/Vol] 136 mmol/L Normal 133-145 [facility] Comment on above: Performed By: #### L 500.4050, L501.2450, L100.0100 ####[facility] [address] [place], [address] T PROT 7.5 g/dL Normal 5.9-8.4 [facility] Comment on above: Performed By: #### L 500.4050, L501.2450, L100.0100 ####[facility] [address] [place], [address] Urea nitrogen [Mass/Vol] 7 mg/dL Normal 4-19 [facility] Comment on above: Performed By: #### L 500.4050, L501.2450, L100.0100 ####[facility] [address] [place], [address] Emergency Department Summary on 10-13-2024 Emergency Department Summary Normal [facility] Emergency Department Summary Normal [facility] Lipaseon 10-13-2024 Lipase [Catalytic activity/Vol] 36 U/L Normal 13-75 [facility] Comment on above: Result Comment: Plea note:LIPASE revised reference range effective 22.New Lipase methodology. Expected to produce lower valuesthan the previous assay method.NEW Reference Range: 13 - 75 U/L Performed By: #### L 500.4050, L501.2450, L100.0100 ####[facility] [address] [place], [address] Lipase [Catalytic activity/Vol] 33 U/L Normal 13-75 [facility] Comment on above: Result Comment: Plejake nelson note:LIPASE revised reference range effective 22.New Lipase methodology. Expected to produce lower valuesthan the previous assay method.NEW Reference Range: 13 - 75 U/L Performed By: #### L 500.4050, L501.2450, L100.0100 ####[facility] [address] [place], [address] Urinalysis, Completeon 10-13 BACTERIA 1+ /hpf Normal None Seen [facility] Comment on above: Order Comment: CLEAN CATCH Performed By: #### L 400.0001 ####[facility] [address] [place], [address] EPI,SQUAMOUS 0-5 SEEN Normal 0-5 [facility] Comment on above: Order Comment: CLEAN CATCH Performed By: #### L 400.0001 ####[facility] [address] [place], [address] WBC 0-5 SEEN Normal 0-5 [facility] Comment on above: Order Comment: CLEAN CATCH Performed By: #### L 400.0001 ####[facility] [address] [place], [address] Mucus Ql (Urine sed) 0 SEEN Normal [facility] Comment on above: Order Comment: CLEAN CATCH Performed By: #### L 400.0001 ####[facility] [address] [place], [address] RBC 0 SEEN Normal 0-5 [facility] Comment on above: Order Comment: CLEAN CATCH Performed By: #### L 400.0001 ####[facility] [address] [place], [address] CBC W/Diff, Automatedon 08-2 -2024 Absolute Neut Normal 2.0-7.7 [facility] Comment on above: Result Comment: Canc elled via OM: MD Ordered Performed By: #### L 100.0100 ####[facility] [address] [place], [address] HCT Normal 40-54 [facility] Comment on above: Result Comment: Canc elled via OM: MD Ordered Performed By: #### L 100.0100 ####[facility] [address] [place], [address] HGB Normal 13.0-16.5 [facility] Comment on above: Result Comment: Canc elled via OM: MD Ordered Performed By: #### L 100.0100 ####[facility] [address] [place], [address] MCH Normal 27.0-32.0 [facility] Comment on above: Result Comment: Canc elled via OM: MD Ordered Performed By: #### L 100.0100 ####[facility] [address] [place], [address] MCHC Normal 32-36 [facility] Comment on above: Result Comment: Canc elled via OM: MD Ordered Performed By: #### L 100.0100 ####[facility] [address] [place], [address] MCV Normal 80-94 [facility] Comment on above: Result Comment: Canc elled via OM: MD Ordered Performed By: #### L 100.0100 ####[facility] [address] [place], [address] NEUT% Normal 47-70 [facility] Comment on above: Result Comment: Canc elled via OM: MD Ordered Performed By: #### L 100.0100 ####[facility] [address] [place], [address] PLT Normal 150-450 [facility] Comment on above: Result Comment: Canc elled via OM: MD Ordered Performed By: #### L 100.0100 ####[facility] [address] [place], [address] RBC Normal 4.6-6.2 [facility] Comment on above: Result Comment: Canc elled via OM: MD Ordered Performed By: #### L 100.0100 ####[facility] [address] [place], [address] RDW CV Normal 11.6-14.6 [facility] Comment on above: Result Comment: Canc elled via OM: MD Ordered Performed By: #### L 100.0100 ####[facility] [address] [place], [address] RDW SD Normal 35.1-43.9 [facility] Comment on above: Result Comment: Alivia garcia via OM: Ordered Performed By: #### L 100.0100 ####[facility] [address] [place], [address] WBC Normal 4.4-11.0 [facility] Comment on above: Result Comment: Alivia garcia via OM: Ordered Performed By: #### L 100.0100 ####[facility] [address] [place], [address] Emergency Department Summary on 10-01-2024 Emergency Department Summary Normal [facility] Emergency Department Summary on 07-25-2024 Emergency Department Summary Normal [facility] 12 Lead EKGon 07-14-2024 12 Lead EKG Normal [facility] CBC W/Diff, Automatedon Absolute Lymph 0.84 X10 3/uL Normal 0.83-4.51 [facility] Comment on above: Performed By: #### L 500.4050, L100.0100 ####[facility] [address] [place], [address] Absolute Neut 8.0 X10 3/uL High 2.0-7.7 [facility] Comment on above: Performed By: #### L 500.4050, L100.0100 ####[facility] [address] [place], [address] Basophils/100 WBC (Bld) 0.4 % Normal 0-1 [facility] Comment on above: Performed By: #### L 500.4050, L100.0100 ####[facility] [address] [place], [address] Eosinophils/100 WBC (Bld) 0.1 % Normal 0-5 [facility] Comment on above: Performed By: #### L 500.4050, L100.0100 ####[facility] [address] [place], [address] Erythrocyte distribution width (RBC) [Ratio] 12.9 % Normal 11.6-14.6 [facility] Comment on above: Performed By: #### L 500.4050, L100.0100 ####[facility] [address] [place], [address] Hematocrit (Bld) [Volume fraction] 37.2 % Low 40-54 [facility] Comment on above: Performed By: #### L 500.4050, L100.0100 ####[facility] [address] [place], [address] Hemoglobin (Bld) [Mass/Vol] 13.2 g/dL Normal 13.0-16.5 [facility] Comment on above: Performed By: #### L 500.4050, L100.0100 ####[facility] [address] [place], [address] IG% 0.400 Normal 0.0-0.9 [facility] Comment on above: Result Comment: IG% - Immature Granulocytes (promyelocytes, myelocytes andmetamyelocytes) > 1% indicates that a LEFT SHIFT is Present. Performed By: #### L 500.4050, L100.0100 ####[facility] [address] [place], [address] Lymphocytes/100 WBC (Bld) 8.9 % Low 19-41 [facility] Comment on above: Performed By: #### L 500.4050, L100.0100 ####[facility] [address] [place], [address] MCH (RBC) [Entitic mass] 32.0 pg Normal 27.0-32.0 [facility] Comment on above: Performed By: #### L 500.4050, L100.0100 ####[facility] [address] [place], [address] MCHC (RBC) [Mass/Vol] 35.5 g/dL Normal 32-36 [facility] Comment on above: Performed By: #### L 500.4050, L100.0100 ####[facility] [address] [place], [address] MCV (RBC) [Entitic vol] 90.3 fL Normal 80-94 [facility] Comment on above: Performed By: #### L 500.4050, L100.0100 ####[facility] [address] [place], [address] Monocytes/100 WBC (Bld) 5.2 % Normal 0-10 [facility] Comment on above: Performed By: #### L 500.4050, L100.0100 ####[facility] [address] [place], [address] Neutrophils/100 WBC (Bld) 85.0 % High 47-70 [facility] Comment on above: Performed By: #### L 500.4050, L100.0100 ####[facility] [address] [place], [address] Nucleated RBC (Bld) [#/Vol] 0 10*3/uL Normal 0-5 [facility] Comment on above: Performed By: #### L 500.4050, L100.0100 ####[facility] [address] [place], [address] Platelet mean volume (Bld) [Entitic vol] 9.9 fL Normal 6.2-12.0 [facility] Comment on above: Performed By: #### L 500.4050, L100.0100 ####[facility] [address] [place], [address] Platelets (Bld) [#/Vol] 221 10*3/uL Normal 150-450 [facility] Comment on above: Performed By: #### L 500.4050, L100.0100 ####[facility] [address] [place], [address] RBC (Bld) [#/Vol] 4.12 10*6/uL Low 4.6-6.2 [facility] Comment on above: Performed By: #### L 500.4050, L100.0100 ####[facility] [address] [place], [address] RDW SD 42.5 fl Normal 35.1-43.9 [facility] Comment on above: Performed By: #### L 500.4050, L100.0100 ####[facility] [address] [place], [address] WBC (Bld) [#/Vol] 9.5 10*3/uL Normal 4.4-11.0 [facility] Comment on above: Performed By: #### L 500.4050, L100.0100 ####[facility] [address] [place], [address] Comprehensive Metabolic Prof [facility] 07-14-2024 Albumin [Mass/Vol] 3.8 g/dL Normal 3.4-4.8 [facility] Comment on above: Performed By: #### L 500.4050, L100.0100 ####[facility] [address] [place], [address] Albumin/Globulin [Mass ratio] 1.2 {ratio} Normal 0.9-2.4 [facility] Comment on above: Performed By: #### L 500.4050, L100.0100 ####[facility] [address] [place], [address] ALK PHOS 89 U/L Normal 40-129 [facility] Comment on above: Performed By: #### L 500.4050, L100.0100 ####[facility] [address] [place], [address] ALT [Catalytic activity/Vol] 14 U/L Normal <=46 [facility] Comment on above: Performed By: #### L 500.4050, L100.0100 ####[facility] [address] [place], [address] AST [Catalytic activity/Vol] 26 U/L Normal <=37 [facility] Comment on above: Result Comment: Hemo lysis present, Results??could be affected.?? Performed By: #### L 500.4050, L100.0100 ####[facility] [address] [place], [address] Bilirubin [Mass/Vol] 0.41 mg/dL Normal 0.00-1.30 [facility] Comment on above: Performed By: #### L 500.4050, L100.0100 ####[facility] [address] [place], [address] BUN/CRE 14.0 RATIO Normal 10-20 [facility] Comment on above: Performed By: #### L 500.4050, L100.0100 ####[facility] [address] [place], [address] Calcium [Mass/Vol] 8.9 mg/dL Normal 7.6-11.0 [facility] Comment on above: Performed By: #### L 500.4050, L100.0100 ####[facility] [address] [place], [address] Chloride [Moles/Vol] 101 mmol/L Normal 98-108 [facility] Comment on above: Performed By: #### L 500.4050, L100.0100 ####[facility] [address] [place], [address] CO2 [Moles/Vol] 27.0 mmol/L Normal 21.0-32.0 [facility] Comment on above: Performed By: #### L 500.4050, L100.0100 ####[facility] [address] [place], [address] Creatinine [Mass/Vol] 0.74 mg/dL Normal 0.70-1.20 [facility] Comment on above: Performed By: #### L 500.4050, L100.0100 ####[facility] [address] [place], [address] GAP 12 Normal 5-15 [facility] Comment on above: Performed By: #### L 500.4050, L100.0100 ####[facility] [address] [place], [address] GFR/1.73 sq M.predicted among non-blacks MDRD (S/P/Bld) [Vol rate/Area] 94 mL/min/{1.73_m2} Normal >60 [facility] Comment on above: Result Comment: mL/m in/1.73m2 CKD-EPI Creatinine Equation (2020) Performed By: #### L 500.4050, L100.0100 ####[facility] [address] [place], [address] Globulin (S) [Mass/Vol] 3.1 g/dL Normal 2.2-4.2 [facility] Comment on above: Performed By: #### L 500.4050, L100.0100 ####[facility] [address] [place], [address] Glucose [Mass/Vol] 125 mg/dL High 70-99 [facility] Comment on above: Performed By: #### L 500.4050, L100.0100 ####[facility] [address] [place], [address] Potassium [Moles/Vol] 4.0 mmol/L Normal 3.3-5.1 [facility] Comment on above: Result Comment: Hemo lysis present, Results??could be affected.?? Performed By: #### L 500.4050, L100.0100 ####[facility] [address] [place], [address] Sodium [Moles/Vol] 140 mmol/L Normal 133-145 [facility] Comment on above: Performed By: #### L 500.4050, L100.0100 ####[facility] [address] [place], [address] T PROT 6.9 g/dL Normal 5.9-8.4 [facility] Comment on above: Performed By: #### L 500.4050, L100.0100 ####[facility] [address] [place], [address] Urea nitrogen [Mass/Vol] 10 mg/dL Normal 4-19 [facility] Comment on above: Performed By: #### L 500.4050, L100.0100 ####[facility] [address] [place], [address] Emergency Department Summary on 07-14-2024 Emergency Department Summary Normal [facility] Lactic Acidon 07-14-2024 Lactate [Moles/Vol] 1.4 mmol/L Normal 0.0-2.0 [facility] Comment on above: Order Comment: Y Performed By: #### L 503.6005 ####[facility] [address] [place], [address] Chiropractic Reporton [address] [facility] Chiropractic Reporton [address] [facility] Basic Metabolic Profile (BMP )on 06-21-2024 BUN/CRE 15.6 RATIO Normal 10-20 [facility] Comment on above: Performed By: #### L 500.2500 ####[facility] [address] [place], [address] Calcium [Mass/Vol] 9.8 mg/dL Normal 7.6-11.0 [facility] Comment on above: Performed By: #### L 500.2500 ####[facility] [address] [place], [address] Chloride [Moles/Vol] 101 mmol/L Normal 98-108 [facility] Comment on above: Performed By: #### L 500.2500 ####[facility] [address] [place], [address] CO2 [Moles/Vol] 23.2 mmol/L Normal 21.0-32.0 [facility] Comment on above: Performed By: #### L 500.2500 ####[facility] [address] [place], [address] Creatinine [Mass/Vol] 0.90 mg/dL Normal 0.70-1.20 [facility] Comment on above: Performed By: #### L 500.2500 ####[facility] [address] [place], [address] GAP 13 Normal 5-15 [facility] Comment on above: Performed By: #### L 500.2500 ####[facility] [address] [place], [address] GFR/1.73 sq M.predicted among non-blacks MDRD (S/P/Bld) [Vol rate/Area] 88 mL/min/{1.73_m2} Normal >60 [facility] Comment on above: Result Comment: mL/m in/1.73m2 CKD-EPI Creatinine Equation (2020) Performed By: #### L 500.2500 ####[facility] [address] [place], [address] Glucose [Mass/Vol] 102 mg/dL High 70-99 [facility] Comment on above: Performed By: #### L 500.2500 ####[facility] [address] [place], [address] Potassium [Moles/Vol] 3.9 mmol/L Normal 3.3-5.1 [facility] Comment on above: Performed By: #### L 500.2500 ####[facility] [address] [place], [address] Sodium [Moles/Vol] 137 mmol/L Normal 133-145 [facility] Comment on above: Performed By: #### L 500.2500 ####[facility] [address] [place], [address] Urea nitrogen [Mass/Vol] 14 mg/dL Normal 4-19 [facility] Comment on above: Performed By: #### L 500.2500 ####[facility] [address] [place], [address] Basic Metabolic Profile (BMP )on 06-07-2024 BUN/CRE 17.6 RATIO Normal 10-20 [facility] Comment on above: Performed By: #### L 500.2500 ####[facility] [address] [place], [address] Calcium [Mass/Vol] 8.9 mg/dL Normal 7.6-11.0 [facility] Comment on above: Performed By: #### L 500.2500 ####[facility] [address] [place], [address] Chloride [Moles/Vol] 93 mmol/L Low 98-108 [facility] Comment on above: Performed By: #### L 500.2500 ####[facility] [address] [place], [address] CO2 [Moles/Vol] 21.2 mmol/L Normal 21.0-32.0 [facility] Comment on above: Performed By: #### L 500.2500 ####[facility] [address] [place], [address] Creatinine [Mass/Vol] 0.63 mg/dL Low 0.70-1.20 [facility] Comment on above: Performed By: #### L 500.2500 ####[facility] [address] [place], [address] ECRCL 95.23 ml/min Normal 50-250 [facility] Comment on above: Performed By: #### L 500.2500 ####[facility] [address] [place], [address] GAP 13 Normal 5-15 [facility] Comment on above: Performed By: #### L 500.2500 ####[facility] [address] [place], [address] GFR/1.73 sq M.predicted among non-blacks MDRD (S/P/Bld) [Vol rate/Area] 99 mL/min/{1.73_m2} Normal >60 [facility] [facility] Comment on above: Result Comment: mL/m in/1.73m2 CKD-EPI Creatinine Equation (2020) Performed By: #### L 500.2500 ####[facility] [address] [place], [address] Glucose [Mass/Vol] 119 mg/dL High 70-99 [facility] Comment on above: Performed By: #### L 500.2500 ####[facility] [address] [place], [address] Potassium [Moles/Vol] 3.8 mmol/L Normal 3.3-5.1 [facility] Comment on above: Performed By: #### L 500.2500 ####[facility] [address] [place], [address] Sodium [Moles/Vol] 128 mmol/L Low 133-145 [facility] Comment on above: Performed By: #### L 500.2500 ####[facility] [address] [place], [address] Urea nitrogen [Mass/Vol] 11 mg/dL Normal 4-19 [facility] Comment on above: Performed By: #### L 500.2500 ####[facility] [address] [place], [address] BUN/CRE 18.6 RATIO Normal 10-20 [facility] Comment on above: Performed By: #### L 100.0100, L500.2500 ####[facility] [address] [place], [address] Calcium [Mass/Vol] 9.3 mg/dL Normal 7.6-11.0 [facility] Comment on above: Performed By: #### L 100.0100, L500.2500 ####[facility] [address] [place], [address] Chloride [Moles/Vol] 91 mmol/L Low 98-108 [facility] Comment on above: Performed By: #### L 100.0100, L500.2500 ####[facility] [address] [place], [address] CO2 [Moles/Vol] 21.8 mmol/L Normal 21.0-32.0 [facility] Comment on above: Performed By: #### L 100.0100, L500.2500 ####[facility] [address] [place], [address] Creatinine [Mass/Vol] 0.68 mg/dL Low 0.70-1.20 [facility] Comment on above: Performed By: #### L 100.0100, L500.2500 ####[facility] [address] [place], [address] ECRCL 95.23 ml/min Normal 50-250 [facility] Comment on above: Performed By: #### L 100.0100, L500.2500 ####[facility] [address] [place], [address] GAP 14 Normal 5-15 [facility] Comment on above: Performed By: #### L 100.0100, L500.2500 ####[facility] [address] [place], [address] GFR/1.73 sq M.predicted among non-blacks MDRD (S/P/Bld) [Vol rate/Area] 97 mL/min/{1.73_m2} Normal >60 [facility] Comment on above: Result Comment: mL/m in/1.73m2 CKD-EPI Creatinine Equation (2020) Performed By: #### L 100.0100, L500.2500 ####[facility] [address] [place], [address] Glucose [Mass/Vol] 116 mg/dL High 70-99 [facility] Comment on above: Performed By: #### L 100.0100, L500.2500 ####[facility] [address] [place], [address] Potassium [Moles/Vol] 4.0 mmol/L Normal 3.3-5.1 [facility] Comment on above: Result Comment: Hemo lysis present, Results??could be affected.?? Performed By: #### L 100.0100, L500.2500 ####[facility] [address] [place], [address] Sodium [Moles/Vol] 127 mmol/L Low 133-145 [facility] Comment on above: Performed By: #### L 100.0100, L500.2500 ####[facility] [address] [place], [address] Urea nitrogen [Mass/Vol] 13 mg/dL Normal 4-19 [facility] Comment on above: Performed By: #### L 100.0100, L500.2500 ####[facility] [address] [place], [address] CBC W/Diff, Automatedon 05-0 1-2024 Absolute Lymph 1.01 X10 3/uL Normal 0.83-4.51 [facility] Comment on above: Performed By: #### L 100.0100, L500.2500 ####[facility] [address] [place], [address] Absolute Neut 12.6 X10 3/uL High 2.0-7.7 [facility] Comment on above: Performed By: #### L 100.0100, L500.2500 ####[facility] [address] [place], [address] Basophils/100 WBC (Bld) 0.2 % Normal 0-1 [facility] Comment on above: Performed By: #### L 100.0100, L500.2500 ####[facility] [address] [place], [address] Eosinophils/100 WBC (Bld) 0.0 % Normal 0-5 [facility] Comment on above: Performed By: #### L 100.0100, L500.2500 ####[facility] [address] [place], [address] Erythrocyte distribution width (RBC) [Ratio] 12.9 % Normal 11.6-14.6 [facility] Comment on above: Performed By: #### L 100.0100, L500.2500 ####[facility] [address] [place], [address] Hematocrit (Bld) [Volume fraction] 39.2 % Low 40-54 [facility] Comment on above: Performed By: #### L 100.0100, L500.2500 ####[facility] [address] [place], [address] Hemoglobin (Bld) [Mass/Vol] 13.8 g/dL Normal 13.0-16.5 [facility] Comment on above: Performed By: #### L 100.0100, L500.2500 ####[facility] [address] [place], [address] IG% 0.400 Normal 0.0-0.9 [facility] Comment on above: Result Comment: IG% - Immature Granulocytes (promyelocytes, myelocytes andmetamyelocytes) > 1% indicates that a LEFT SHIFT is Present. Performed By: #### L 100.0100, L500.2500 ####[facility] [address] [place], [address] Lymphocytes/100 WBC (Bld) 7.0 % Low 19-41 [facility] Comment on above: Performed By: #### L 100.0100, L500.2500 ####[facility] [address] [place], [address] MCH (RBC) [Entitic mass] 32.1 pg High 27.0-32.0 [facility] Comment on above: Performed By: #### L 100.0100, L500.2500 ####[facility] [address] [place], [address] MCHC (RBC) [Mass/Vol] 35.2 g/dL Normal 32-36 [facility] Comment on above: Performed By: #### L 100.0100, L500.2500 ####[facility] [address] [place], [address] MCV (RBC) [Entitic vol] 91.2 fL Normal 80-94 [facility] Comment on above: Performed By: #### L 100.0100, L500.2500 ####[facility] [address] [place], [address] Monocytes/100 WBC (Bld) 4.5 % Normal 0-10 [facility] Comment on above: Performed By: #### L 100.0100, L500.2500 ####[facility] [address] [place], [address] Neutrophils/100 WBC (Bld) 87.9 % High 47-70 [facility] Comment on above: Performed By: #### L 100.0100, L500.2500 ####[facility] [address] [place], [address] Nucleated RBC (Bld) [#/Vol] 0 10*3/uL Normal 0-5 [facility] Comment on above: Performed By: #### L 100.0100, L500.2500 ####[facility] [address] [place], [address] Platelet mean volume (Bld) [Entitic vol] 9.6 fL Normal 6.2-12.0 [facility] Comment on above: Performed By: #### L 100.0100, L500.2500 ####[facility] [address] [place], [address] Platelets (Bld) [#/Vol] 306 10*3/uL Normal 150-450 [facility] Comment on above: Performed By: #### L 100.0100, L500.2500 ####[facility] [address] [place], [address] RBC (Bld) [#/Vol] 4.30 10*6/uL Low 4.6-6.2 [facility] Comment on above: Performed By: #### L 100.0100, L500.2500 ####[facility] [address] [place], [address] RDW SD 43.0 fl Normal 35.1-43.9 [facility] Comment on above: Performed By: #### L 100.0100, L500.2500 ####[facility] [address] [place], [address] WBC (Bld) [#/Vol] 14.3 10*3/uL High 4.4-11.0 [facility] Comment on above: Performed By: #### L 100.0100, L500.2500 ####[facility] [address] [place], [address] Emergency Department Summary on 06-07-2024 Emergency Department Summary Normal [facility] Lipaseon 06-07-2024 Lipase [Catalytic activity/Vol] 35 U/L Normal 13-75 [facility] Comment on above: Result Comment: Nagi nelson note:LIPASE revised reference range effective 22.New Lipase methodology. Expected to produce lower valuesthan the previous assay method.NEW Reference Range: 13 - 75 U/L Performed By: #### L 501.2450, L500.3400 ####[facility] [address] [place], [address] Liver Profileon 06-07-2024 Albumin [Mass/Vol] 3.9 g/dL Normal 3.4-4.8 [facility] Comment on above: Performed By: #### L 501.2450, L500.3400 ####[facility] [address] [place], [address] ALK PHOS 89 U/L Normal 40-129 [facility] Comment on above: Performed By: #### L 501.2450, L500.3400 ####[facility] [address] [place], [address] ALT [Catalytic activity/Vol] 21 U/L Normal <=46 [facility] Comment on above: Performed By: #### L 501.2450, L500.3400 ####[facility] [address] [place], [address] AST [Catalytic activity/Vol] 26 U/L Normal <=37 [facility] Comment on above: Result Comment: Hemo lysis present, Results??could be affected.?? Performed By: #### L 501.2450, L500.3400 ####[facility] [address] [place], [address] Bilirubin [Mass/Vol] 0.49 mg/dL Normal 0.00-1.30 [facility] Comment on above: Performed By: #### L 501.2450, L500.3400 ####[facility] [address] [place], [address] Bilirubin.direct [Mass/Vol] 0.22 mg/dL Normal 0.00-0.30 [facility] Comment on above: Result Comment: Hemo lysis present, Results??could be affected.?? Performed By: #### L 501.2450, L500.3400 ####[facility] [address] [place], [address] Globulin (S) [Mass/Vol] 3.6 g/dL Normal 2.2-4.2 [facility] Comment on above: Performed By: #### L 501.2450, L500.3400 ####[facility] [address] [place], [address] T PROT 7.5 g/dL Normal 5.9-8.4 [facility] Comment on above: Performed By: #### L 501.2450, L500.3400 ####[facility] [address] [place], [address] Urinalysis, Completeon 06-07 CAST,HYALINE 0-5 SEEN Normal 0-5 [facility] Comment on above: Order Comment: GEORGE CTOR TO SPECIFY Performed By: #### L 400.0001 ####[facility] [address] [place], [address] RBC 0-5 SEEN Normal 0-5 [facility] Comment on above: Order Comment: GEORGE CTOR TO SPECIFY Performed By: #### L 400.0001 ####[facility] [address] [place], [address] WBC 0-5 SEEN Normal 0-5 [facility] Comment on above: Order Comment: COLLE CTOR TO SPECIFY Performed By: #### L 400.0001 ####[facility] [address] [place], [address] BACTERIA 0 SEEN Normal None Seen [facility] Comment on above: Order Comment: COLLE CTOR TO SPECIFY Performed By: #### L 400.0001 ####[facility] [address] [place], [address] EPI,SQUAMOUS 0 SEEN Normal 0-5 [facility] Comment on above: Order Comment: COLLE CTOR TO SPECIFY Performed By: #### L 400.0001 ####[facility] [address] [place], [address] Mucus Ql (Urine sed) 0 SEEN Normal [facility] Comment on above: Order Comment: COLLE CTOR TO SPECIFY Performed By: #### L 400.0001 ####[facility] [address] [place], [address] Basic Metabolic Profile (BMP )on 05-28-2024 BUN/CRE 21.0 RATIO High 10-20 [facility] Comment on above: Performed By: #### L 100.0100, L500.2500 ####[facility] [address] [place], [address] Calcium [Mass/Vol] 9.8 mg/dL Normal 7.6-11.0 [facility] Comment on above: Performed By: #### L 100.0100, L500.2500 ####[facility] [address] [place], [address] Chloride [Moles/Vol] 91 mmol/L Low 98-108 [facility] Comment on above: Performed By: #### L 100.0100, L500.2500 ####[facility] [address] [place], [address] CO2 [Moles/Vol] 26.3 mmol/L Normal 21.0-32.0 [facility] Comment on above: Performed By: #### L 100.0100, L500.2500 ####[facility] [address] [place], [address] Creatinine [Mass/Vol] 0.85 mg/dL Normal 0.70-1.20 [facility] Comment on above: Performed By: #### L 100.0100, L500.2500 ####[facility] [address] [place], [address] ECRCL 88.64 ml/min Normal 50-250 [facility] Comment on above: Performed By: #### L 100.0100, L500.2500 ####[facility] [address] [place], [address] GAP 11 Normal 5-15 [facility] Comment on above: Performed By: #### L 100.0100, L500.2500 ####[facility] [address] [place], [address] GFR/1.73 sq M.predicted among non-blacks MDRD (S/P/Bld) [Vol rate/Area] 90 mL/min/{1.73_m2} Normal >60 [facility] Comment on above: Result Comment: mL/m in/1.73m2 CKD-EPI Creatinine Equation (2020) Performed By: #### L 100.0100, L500.2500 ####[facility] [address] [place], [address] Glucose [Mass/Vol] 114 mg/dL High 70-99 [facility] Comment on above: Performed By: #### L 100.0100, L500.2500 ####[facility] [address] [place], [address] Potassium [Moles/Vol] 3.9 mmol/L Normal 3.3-5.1 [facility] Comment on above: Performed By: #### L 100.0100, L500.2500 ####[facility] [address] [place], [address] Sodium [Moles/Vol] 129 mmol/L Low 133-145 [facility] Comment on above: Performed By: #### L 100.0100, L500.2500 ####[facility] [address] [place], [address] Urea nitrogen [Mass/Vol] 18 mg/dL Normal 4-19 [facility] Comment on above: Performed By: #### L 100.0100, L500.2500 ####[facility] [address] [place], [address] CBC W/Diff, Automatedon 04- Absolute Lymph 1.70 X10 3/uL Normal 0.83-4.51 [facility] Comment on above: Performed By: #### L 100.0100, L500.2500 ####[facility] [address] [place], [address] Absolute Neut 9.5 X10 3/uL High 2.0-7.7 [facility] Comment on above: Performed By: #### L 100.0100, L500.2500 ####[facility] [address] [place], [address] Basophils/100 WBC (Bld) 0.4 % Normal 0-1 [facility] Comment on above: Performed By: #### L 100.0100, L500.2500 ####[facility] [address] [place], [address] Eosinophils/100 WBC (Bld) 0.3 % Normal 0-5 [facility] Comment on above: Performed By: #### L 100.0100, L500.2500 ####[facility] [address] [place], [address] Erythrocyte distribution width (RBC) [Ratio] 12.9 % Normal 11.6-14.6 [facility] Comment on above: Performed By: #### L 100.0100, L500.2500 ####[facility] [address] [place], [address] Hematocrit (Bld) [Volume fraction] 41.7 % Normal 40-54 [facility] Comment on above: Performed By: #### L 100.0100, L500.2500 ####[facility] [address] [place], [address] Hemoglobin (Bld) [Mass/Vol] 14.8 g/dL Normal 13.0-16.5 [facility] Comment on above: Performed By: #### L 100.0100, L500.2500 ####[facility] [address] [place], [address] IG% 0.500 Normal 0.0-0.9 [facility] Comment on above: Result Comment: IG% - Immature Granulocytes (promyelocytes, myelocytes andmetamyelocytes) > 1% indicates that a LEFT SHIFT is Present. Performed By: #### L 100.0100, L500.2500 ####[facility] [address] [place], [address] Lymphocytes/100 WBC (Bld) 13.7 % Low 19-41 [facility] Comment on above: Performed By: #### L 100.0100, L500.2500 ####[facility] [address] [place], [address] MCH (RBC) [Entitic mass] 32.3 pg High 27.0-32.0 [facility] Comment on above: Performed By: #### L 100.0100, L500.2500 ####[facility] [address] [place], [address] MCHC (RBC) [Mass/Vol] 35.5 g/dL Normal 32-36 [facility] Comment on above: Performed By: #### L 100.0100, L500.2500 ####[facility] [address] [place], [address] MCV (RBC) [Entitic vol] 91.0 fL Normal 80-94 [facility] Comment on above: Performed By: #### L 100.0100, L500.2500 ####[facility] [address] [place], [address] Monocytes/100 WBC (Bld) 8.9 % Normal 0-10 [facility] Comment on above: Performed By: #### L 100.0100, L500.2500 ####[facility] [address] [place], [address] Neutrophils/100 WBC (Bld) 76.2 % High 47-70 [facility] Comment on above: Performed By: #### L 100.0100, L500.2500 ####[facility] [address] [place], [address] Nucleated RBC (Bld) [#/Vol] 0 10*3/uL Normal 0-5 [facility] Comment on above: Performed By: #### L 100.0100, L500.2500 ####[facility] [address] [place], [address] Platelet mean volume (Bld) [Entitic vol] 9.5 fL Normal 6.2-12.0 [facility] Comment on above: Performed By: #### L 100.0100, L500.2500 ####[facility] [address] [place], [address] Platelets (Bld) [#/Vol] 316 10*3/uL Normal 150-450 [facility] Comment on above: Performed By: #### L 100.0100, L500.2500 ####[facility] [address] [place], [address] RBC (Bld) [#/Vol] 4.58 10*6/uL Low 4.6-6.2 [facility] Comment on above: Performed By: #### L 100.0100, L500.2500 ####[facility] [address] [place], [address] RDW SD 42.3 fl Normal 35.1-43.9 [facility] Comment on above: Performed By: #### L 100.0100, L500.2500 ####[facility] [address] [place], [address] WBC (Bld) [#/Vol] 12.4 10*3/uL High 4.4-11.0 [facility] Comment on above: Performed By: #### L 100.0100, L500.2500 ####[facility] [address] [place], [address] Emergency Department Summary on 05-28-2024 Emergency Department Summary Normal [facility] 12 Lead EKGon 05-26-2024 12 Lead EKG Normal [facility] CBC W/Diff, Automatedon 05-08 Absolute Lymph 1.66 X10 3/uL Normal 0.83-4.51 [facility] Comment on above: Performed By: #### L 500.4050, L501.2450, L100.0100 ####[facility] [address] [place], [address] Absolute Neut 9.5 X10 3/uL High 2.0-7.7 [facility] Comment on above: Performed By: #### L 500.4050, L501.2450, L100.0100 ####[facility] [address] [place], [address] Basophils/100 WBC (Bld) 0.5 % Normal 0-1 [facility] Comment on above: Performed By: #### L 500.4050, L501.2450, L100.0100 ####[facility] [address] [place], [address] Eosinophils/100 WBC (Bld) 0.5 % Normal 0-5 [facility] Comment on above: Performed By: #### L 500.4050, L501.2450, L100.0100 ####[facility] [address] [place], [address] Erythrocyte distribution width (RBC) [Ratio] 13.2 % Normal 11.6-14.6 [facility] Comment on above: Performed By: #### L 500.4050, L501.2450, L100.0100 ####[facility] [address] [place], [address] Hematocrit (Bld) [Volume fraction] 42.0 % Normal 40-54 [facility] Comment on above: Performed By: #### L 500.4050, L501.2450, L100.0100 ####[facility] [address] [place], [address] Hemoglobin (Bld) [Mass/Vol] 15.2 g/dL Normal 13.0-16.5 [facility] Comment on above: Performed By: #### L 500.4050, L501.2450, L100.0100 ####[facility] [address] [place], [address] IG% 0.300 Normal 0.0-0.9 [facility] Comment on above: Result Comment: IG% - Immature Granulocytes (promyelocytes, myelocytes andmetamyelocytes) > 1% indicates that a LEFT SHIFT is Present. Performed By: #### L 500.4050, L501.2450, L100.0100 ####[facility] [address] [place], [address] Lymphocytes/100 WBC (Bld) 13.4 % Low 19-41 [facility] Comment on above: Performed By: #### L 500.4050, L501.2450, L100.0100 ####[facility] [address] [place], [address] MCH (RBC) [Entitic mass] 33.4 pg High 27.0-32.0 [facility] Comment on above: Performed By: #### L 500.4050, L501.2450, L100.0100 ####[facility] [address] [place], [address] MCHC (RBC) [Mass/Vol] 36.2 g/dL High 32-36 [facility] Comment on above: Performed By: #### L 500.4050, L501.2450, L100.0100 ####[facility] [address] [place], [address] MCV (RBC) [Entitic vol] 92.3 fL Normal 80-94 [facility] Comment on above: Performed By: #### L 500.4050, L501.2450, L100.0100 ####[facility] [address] [place], [address] Monocytes/100 WBC (Bld) 8.2 % Normal 0-10 [facility] Comment on above: Performed By: #### L 500.4050, L501.2450, L100.0100 ####[facility] [address] [place], [address] Neutrophils/100 WBC (Bld) 77.1 % High 47-70 [facility] Comment on above: Performed By: #### L 500.4050, L501.2450, L100.0100 ####[facility] [address] [place], [address] Nucleated RBC (Bld) [#/Vol] 0 10*3/uL Normal 0-5 [facility] Comment on above: Performed By: #### L 500.4050, L501.2450, L100.0100 ####[facility] [address] [place], [address] Platelet mean volume (Bld) [Entitic vol] 9.6 fL Normal 6.2-12.0 [facility] Comment on above: Performed By: #### L 500.4050, L501.2450, L100.0100 ####[facility] [address] [place], [address] Platelets (Bld) [#/Vol] 329 10*3/uL Normal 150-450 [facility] Comment on above: Performed By: #### L 500.4050, L501.2450, L100.0100 ####[facility] [address] [place], [address] RBC (Bld) [#/Vol] 4.55 10*6/uL Low 4.6-6.2 [facility] Comment on above: Performed By: #### L 500.4050, L501.2450, L100.0100 ####[facility] [address] [place], [address] RDW SD 44.5 fl High 35.1-43.9 [facility] Comment on above: Performed By: #### L 500.4050, L501.2450, L100.0100 ####[facility] [address] [place], [address] WBC (Bld) [#/Vol] 12.4 10*3/uL High 4.4-11.0 [facility] Comment on above: Performed By: #### L 500.4050, L501.2450, L100.0100 ####[facility] [address] [place], [address] Comprehensive Metabolic Prof ilon 05-26-2024 Albumin [Mass/Vol] 3.8 g/dL Normal 3.4-4.8 [facility] Comment on above: Performed By: #### L 500.4050, L501.2450, L100.0100 ####[facility] [address] [place], [address] Albumin/Globulin [Mass ratio] 1.0 {ratio} Normal 0.9-2.4 [facility] Comment on above: Performed By: #### L 500.4050, L501.2450, L100.0100 ####[facility] [address] [place], [address] ALK PHOS 94 U/L Normal 40-129 [facility] Comment on above: Performed By: #### L 500.4050, L501.2450, L100.0100 ####[facility] [address] [place], [address] ALT [Catalytic activity/Vol] 22 U/L Normal <=46 [facility] Comment on above: Performed By: #### L 500.4050, L501.2450, L100.0100 ####[facility] [address] [place], [address] AST [Catalytic activity/Vol] 27 U/L Normal <=37 [facility] Comment on above: Result Comment: Hemo lysis present, Results??could be affected.?? Performed By: #### L 500.4050, L501.2450, L100.0100 ####[facility] [address] [place], [address] Bilirubin [Mass/Vol] 0.51 mg/dL Normal 0.00-1.30 [facility] Comment on above: Performed By: #### L 500.4050, L501.2450, L100.0100 ####[facility] [address] [place], [address] BUN/CRE 25.7 RATIO High 10-20 [facility] Comment on above: Performed By: #### L 500.4050, L501.2450, L100.0100 ####[facility] [address] [place], [address] Calcium [Mass/Vol] 9.7 mg/dL Normal 7.6-11.0 [facility] Comment on above: Performed By: #### L 500.4050, L501.2450, L100.0100 ####[facility] [address] [place], [address] Chloride [Moles/Vol] 98 mmol/L Normal 98-108 [facility] Comment on above: Performed By: #### L 500.4050, L501.2450, L100.0100 ####[facility] [address] [place], [address] CO2 [Moles/Vol] 23.4 mmol/L Normal 21.0-32.0 [facility] Comment on above: Performed By: #### L 500.4050, L501.2450, L100.0100 ####[facility] [address] [place], [address] Creatinine [Mass/Vol] 0.86 mg/dL Normal 0.70-1.20 [facility] Comment on above: Performed By: #### L 500.4050, L501.2450, L100.0100 ####[facility] [address] [place], [address] ECRCL 87.90 ml/min Normal 50-250 [facility] Comment on above: Performed By: #### L 500.4050, L501.2450, L100.0100 ####[facility] [address] [place], [address] GAP 13 Normal 5-15 [facility] Comment on above: Performed By: #### L 500.4050, L501.2450, L100.0100 ####[facility] [address] [place], [address] GFR/1.73 sq M.predicted among non-blacks MDRD (S/P/Bld) [Vol rate/Area] 90 mL/min/{1.73_m2} Normal >60 [facility] Comment on above: Result Comment: mL/m in/1.73m2 CKD-EPI Creatinine Equation (2020) Performed By: #### L 500.4050, L501.2450, L100.0100 ####[facility] [address] [place], [address] Globulin (S) [Mass/Vol] 3.7 g/dL Normal 2.2-4.2 [facility] Comment on above: Performed By: #### L 500.4050, L501.2450, L100.0100 ####[facility] [address] [place], [address] Glucose [Mass/Vol] 111 mg/dL High 70-99 [facility] Comment on above: Performed By: #### L 500.4050, L501.2450, L100.0100 ####[facility] [address] [place], [address] Potassium [Moles/Vol] 4.5 mmol/L Normal 3.3-5.1 [facility] Comment on above: Result Comment: Hemo lysis present, Results??could be affected.?? Performed By: #### L 500.4050, L501.2450, L100.0100 ####[facility] [address] [place], [address] Sodium [Moles/Vol] 135 mmol/L Normal 133-145 [facility] Comment on above: Performed By: #### L 500.4050, L501.2450, L100.0100 ####[facility] [address] [place], [address] T PROT 7.5 g/dL Normal 5.9-8.4 [facility] Comment on above: Performed By: #### L 500.4050, L501.2450, L100.0100 ####[facility] [address] [place], [address] Urea nitrogen [Mass/Vol] 22 mg/dL High - [facility] Comment on above: Performed By: #### L 500.4050, L501.2450, L100.0100 ####[facility] [address] [place], [address] Emergency Department Summary on 05-26-2024 Emergency Department Summary Normal [facility] Lipaseon 05-26-2024 Lipase [Catalytic activity/Vol] 132 U/L High 13-75 [facility] Comment on above: Result Comment: Nagi nelson note:LIPASE revised reference range effective 22.New Lipase methodology. Expected to produce lower valuesthan the previous assay method.NEW Reference Range: 13 - 75 U/L Performed By: #### L 500.4050, L501.2450, L100.0100 ####[facility] [address] [place], [address] Urinalysis, Completeon 05-26 BACTERIA 0 SEEN Normal None Seen [facility] Comment on above: Order Comment: CLEAN CATCH Performed By: #### L 400.0001 ####[facility] [address] [place], [address] EPI,SQUAMOUS 0 SEEN Normal 0-5 [facility] Comment on above: Order Comment: CLEAN CATCH Performed By: #### L 400.0001 ####[facility] [address] [place], [address] Mucus Ql (Urine sed) 0 SEEN Normal [facility] Comment on above: Order Comment: CLEAN CATCH Performed By: #### L 400.0001 ####[facility] [address] [place], [address] RBC 0 SEEN Normal 0-5 [facility] Comment on above: Order Comment: CLEAN CATCH Performed By: #### L 400.0001 ####[facility] [address] [place], [address] WBC 0 SEEN Normal 0-5 [facility] Comment on above: Order Comment: CLEAN CATCH Performed By: #### L 400.0001 ####[facility] [address] [place], [address] Urine Drug Screen (VISTA)on 05-26-2024 AMPHETAMINES Negative Normal <1000 ng/mL [facility] Comment on above: Performed By: #### L 505.5000 ####[facility] [address] [place] [id number] BARBITIURATES Negative Normal < 200 ng/mL [facility] Comment on above: Performed By: #### L 505.5000 ####[facility] [address] [place] [id number] BENZODIAZIPINE Positive Normal < 200 ng/mL [facility] Comment on above: Result Comment: If c onfirmation testing is needed, a separate order will berequired to send out testing to the reference laboratory. Performed By: #### L 505.5000 ####[facility] [address] [place], [address] BUP Ur Drug Scr Negative Normal < 200 ng/mL [facility] Comment on above: Performed By: #### L 505.5000 ####[facility] [address] [facility] [address] COCAINE Negative Normal < 300 ng/mL [facility] Comment on above: Performed By: #### L 505.5000 ####[facility] [address] [place], [address] Fentanyl Negative Normal [facility] Comment on above: Performed By: #### L 505.5000 ####[facility] [address] [place], [address] METHADONE Negative Normal < 300 ng/mL [facility] Comment on above: Performed By: #### L 505.5000 ####[facility] [address] [place], [address] OPIATES Negative Normal < 300 ng/mL [facility] Comment on above: Performed By: #### L 505.5000 ####[facility] [address] [place], [address] OXYCODONE Negative Normal < 100 ng/mL [facility] Comment on above: Performed By: #### L 505.5000 ####[facility] [address] [place], [address] PCP Negative Normal < 25 ng/mL [facility] Comment on above: Performed By: #### L 505.5000 ####[facility] [address] [place], [address] THC Negative Normal < 50 ng/mL [facility] Comment on above: Performed By: #### L 505.5000 ####[facility] [address] [place], [address] CBC W/Diff, Automatedon 05-08 Absolute Lymph 1.99 X10 3/uL Normal 0.83-4.51 [facility] Comment on above: Performed By: #### L 500.4050, L100.0100, L503.7505 ####[facility] [address] [place], [address] Absolute Neut 6.1 X10 3/uL Normal 2.0-7.7 [facility] Comment on above: Performed By: #### L 500.4050, L100.0100, L503.7505 ####[facility] [address] [place], [address] Basophils/100 WBC (Bld) 0.5 % Normal 0-1 [facility] Comment on above: Performed By: #### L 500.4050, L100.0100, L503.7505 ####[facility] [address] [place], [address] Eosinophils/100 WBC (Bld) 1.1 % Normal 0-5 [facility] Comment on above: Performed By: #### L 500.4050, L100.0100, L503.7505 ####[facility] [address] [place], [address] Erythrocyte distribution width (RBC) [Ratio] 12.6 % Normal 11.6-14.6 [facility] Comment on above: Performed By: #### L 500.4050, L100.0100, L503.7505 ####[facility] [address] [place], [address] Hematocrit (Bld) [Volume fraction] 40.2 % Normal 40-54 [facility] Comment on above: Performed By: #### L 500.4050, L100.0100, L503.7505 ####[facility] [address] [place], [address] Hemoglobin (Bld) [Mass/Vol] 13.9 g/dL Normal 13.0-16.5 [facility] Comment on above: Performed By: #### L 500.4050, L100.0100, L503.7505 ####[facility] [address] [place], [address] IG% 0.500 Normal 0.0-0.9 [facility] Comment on above: Result Comment: IG% - Immature Granulocytes (promyelocytes, myelocytes andmetamyelocytes) > 1% indicates that a LEFT SHIFT is Present. Performed By: #### L 500.4050, L100.0100, L503.7505 ####[facility] [address] [place], [address] Lymphocytes/100 WBC (Bld) 21.4 % Normal 19-41 [facility] Comment on above: Performed By: #### L 500.4050, L100.0100, L503.7505 ####[facility] [address] [place], [address] MCH (RBC) [Entitic mass] 32.3 pg High 27.0-32.0 [facility] Comment on above: Performed By: #### L 500.4050, L100.0100, L503.7505 ####[facility] [address] [place], [address] MCHC (RBC) [Mass/Vol] 34.6 g/dL Normal 32-36 [facility] Comment on above: Performed By: #### L 500.4050, L100.0100, L503.7505 ####[facility] [address] [place], [address] MCV (RBC) [Entitic vol] 93.5 fL Normal 80-94 [facility] Comment on above: Performed By: #### L 500.4050, L100.0100, L503.7505 ####[facility] [address] [place], [address] Monocytes/100 WBC (Bld) 11.3 % High 0-10 [facility] Comment on above: Performed By: #### L 500.4050, L100.0100, L503.7505 ####[facility] [address] [place], [address] Neutrophils/100 WBC (Bld) 65.2 % Normal 47-70 [facility] Comment on above: Performed By: #### L 500.4050, L100.0100, L503.7505 ####[facility] [address] [place], [address] Nucleated RBC (Bld) [#/Vol] 0 10*3/uL Normal 0-5 [facility] Comment on above: Performed By: #### L 500.4050, L100.0100, L503.7505 ####[facility] [address] [place], [address] Platelet mean volume (Bld) [Entitic vol] 9.8 fL Normal 6.2-12.0 [facility] Comment on above: Performed By: #### L 500.4050, L100.0100, L503.7505 ####[facility] [address] [place], [address] Platelets (Bld) [#/Vol] 309 10*3/uL Normal 150-450 [facility] Comment on above: Performed By: #### L 500.4050, L100.0100, L503.7505 ####[facility] [address] [place], [address] RBC (Bld) [#/Vol] 4.30 10*6/uL Low 4.6-6.2 [facility] Comment on above: Performed By: #### L 500.4050, L100.0100, L503.7505 ####[facility] [address] [place], [address] RDW SD 42.7 fl Normal 35.1-43.9 [facility] Comment on above: Performed By: #### L 500.4050, L100.0100, L503.7505 ####[facility] [address] [place], [address] WBC (Bld) [#/Vol] 9.3 10*3/uL Normal 4.4-11.0 [facility] Comment on above: Performed By: #### L 500.4050, L100.0100, L503.7505 ####[facility] [address] [place], [address] Comprehensive Metabolic Prof [facility] 05-21-2024 Albumin [Mass/Vol] 3.6 g/dL Normal 3.4-4.8 [facility] Comment on above: Performed By: #### L 500.4050, L100.0100, L503.7505 ####[facility] [address] [place], [address] Albumin/Globulin [Mass ratio] 1.0 {ratio} Normal 0.9-2.4 [facility] Comment on above: Performed By: #### L 500.4050, L100.0100, L503.7505 ####[facility] [address] [place], [address] ALK PHOS 92 U/L Normal 40-129 [facility] Comment on above: Performed By: #### L 500.4050, L100.0100, L503.7505 ####[facility] [address] [place], [address] ALT [Catalytic activity/Vol] 17 U/L Normal <=46 [facility] Comment on above: Performed By: #### L 500.4050, L100.0100, L503.7505 ####[facility] [address] [place], [address] AST [Catalytic activity/Vol] 27 U/L Normal <=37 [facility] Comment on above: Performed By: #### L 500.4050, L100.0100, L503.7505 ####[facility] [address] [place], [address] Bilirubin [Mass/Vol] 0.47 mg/dL Normal 0.00-1.30 [facility] Comment on above: Performed By: #### L 500.4050, L100.0100, L503.7505 ####[facility] [address] [place], [address] BUN/CRE 14.6 RATIO Normal 10-20 [facility] Comment on above: Performed By: #### L 500.4050, L100.0100, L503.7505 ####[facility] [address] [place], [address] Calcium [Mass/Vol] 9.5 mg/dL Normal 7.6-11.0 [facility] Comment on above: Performed By: #### L 500.4050, L100.0100, L503.7505 ####[facility] [address] [place], [address] Chloride [Moles/Vol] 92 mmol/L Low 98-108 [facility] Comment on above: Performed By: #### L 500.4050, L100.0100, L503.7505 ####[facility] [address] [place], [address] CO2 [Moles/Vol] 26.3 mmol/L Normal 21.0-32.0 [facility] Comment on above: Performed By: #### L 500.4050, L100.0100, L503.7505 ####[facility] [address] [place], [address] Creatinine [Mass/Vol] 0.70 mg/dL Normal 0.70-1.20 [facility] Comment on above: Performed By: #### L 500.4050, L100.0100, L503.7505 ####[facility] [address] [place], [address] GAP 11 Normal 5-15 [facility] Comment on above: Performed By: #### L 500.4050, L100.0100, L503.7505 ####[facility] [address] [place], [address] GFR/1.73 sq M.predicted among non-blacks MDRD (S/P/Bld) [Vol rate/Area] 95 mL/min/{1.73_m2} Normal >60 [facility] Comment on above: Result Comment: mL/m in/1.73m2 CKD-EPI Creatinine Equation (2020) Performed By: #### L 500.4050, L100.0100, L503.7505 ####[facility] [address] [place], [address] Globulin (S) [Mass/Vol] 3.6 g/dL Normal 2.2-4.2 [facility] Comment on above: Performed By: #### L 500.4050, L100.0100, L503.7505 ####[facility] [address] [place], [address] Glucose [Mass/Vol] 99 mg/dL Normal 70-99 [facility] Comment on above: Performed By: #### L 500.4050, L100.0100, L503.7505 ####[facility] [address] [place], [address] Potassium [Moles/Vol] 4.4 mmol/L Normal 3.3-5.1 [facility] Comment on above: Performed By: #### L 500.4050, L100.0100, L503.7505 ####[facility] [address] [place], [address] Sodium [Moles/Vol] 129 mmol/L Low 133-145 [facility] Comment on above: Performed By: #### L 500.4050, L100.0100, L503.7505 ####[facility] [address] [place], [address] T PROT 7.2 g/dL Normal 5.9-8.4 [facility] Comment on above: Performed By: #### L 500.4050, L100.0100, L503.7505 ####[facility] [address] [place], [address] Urea nitrogen [Mass/Vol] 10 mg/dL Normal 4-19 [facility] Comment on above: Performed By: #### L 500.4050, L100.0100, L503.7505 ####[facility] [address] [place], [address] L503.7505on 05-21-2024 Natriuretic peptide B (Bld) [Mass/Vol] 66 pg/mL Normal <=1800 [facility] Comment on above: Result Comment: Hear t Failure Unlikely: < 300 pg/mLHeart Failure Likely< 50 Years: > 450 pg/mL50-75 Years: > 900 pg/mL>75 Years: > 1800 pg/mL Performed By: #### L 500.4050, L100.0100, L503.7505 ####[facility] [address] [place], [address] Basic Metabolic Profile (BMP )on 04-30-2024 BUN/CRE 23.2 RATIO High 10-20 [facility] Comment on above: Order Comment: 103.2 Performed By: #### L 503.0106, L500.2500, L100.0100, L501.5200, L506.1001, L501.9520 ####[facility] [address] [place], [address] Calcium [Mass/Vol] 9.4 mg/dL Normal 7.6-11.0 [facility] Comment on above: Order Comment: 103.2 Performed By: #### L 503.0106, L500.2500, L100.0100, L501.5200, L506.1001, L501.9520 ####[facility] [address] [place], [address] Chloride [Moles/Vol] 98 mmol/L Normal 98-108 [facility] Comment on above: Order Comment: 103.2 Performed By: #### L 503.0106, L500.2500, L100.0100, L501.5200, L506.1001, L501.9520 ####[facility] [address] [place], [address] CO2 [Moles/Vol] 24.1 mmol/L Normal 21.0-32.0 [facility] Comment on above: Order Comment: 103.2 Performed By: #### L 503.0106, L500.2500, L100.0100, L501.5200, L506.1001, L501.9520 ####[facility] [address] [place], [address] Creatinine [Mass/Vol] 0.87 mg/dL Normal 0.70-1.20 [facility] Comment on above: Order Comment: 103.2 Performed By: #### L 503.0106, L500.2500, L100.0100, L501.5200, L506.1001, L501.9520 ####[facility] [address] [place], [address] GAP 12 Normal 5-15 [facility] Comment on above: Order Comment: 103.2 Performed By: #### L 503.0106, L500.2500, L100.0100, L501.5200, L506.1001, L501.9520 ####[facility] [address] [place], [address] GFR/1.73 sq M.predicted among non-blacks MDRD (S/P/Bld) [Vol rate/Area] 90 mL/min/{1.73_m2} Normal >60 [facility] Comment on above: Order Comment: 103.2 Result Comment: mL/m in/1.73m2 CKD-EPI Creatinine Equation (2020) Performed By: #### L 503.0106, L500.2500, L100.0100, L501.5200, L506.1001, L501.9520 ####[facility] [address] [place], [address] Glucose [Mass/Vol] 121 mg/dL High 70-99 [facility] Comment on above: Order Comment: 103.2 Performed By: #### L 503.0106, L500.2500, L100.0100, L501.5200, L506.1001, L501.9520 ####[facility] [address] [place], [address] Potassium [Moles/Vol] 4.2 mmol/L Normal 3.3-5.1 [facility] Comment on above: Order Comment: 103.2 Performed By: #### L 503.0106, L500.2500, L100.0100, L501.5200, L506.1001, L501.9520 ####[facility] [address] [place], [address] Sodium [Moles/Vol] 134 mmol/L Normal 133-145 [facility] Comment on above: Order Comment: 103.2 Performed By: #### L 503.0106, L500.2500, L100.0100, L501.5200, L506.1001, L501.9520 ####[facility] [address] [place], [address] Urea nitrogen [Mass/Vol] 20 mg/dL High - [facility] Comment on above: Order Comment: 103.2 Performed By: #### L 503.0106, L500.2500, L100.0100, L501.5200, L506.1001, L501.9520 ####[facility] [address] [place], [address] CBC W/Diff, Automatedon 03- Absolute Lymph 1.32 X10 3/uL Normal 0.83-4.51 [facility] Comment on above: Order Comment: 103.2 Performed By: #### L 503.0106, L500.2500, L100.0100, L501.5200, L506.1001, L501.9520 ####[facility] [address] [place], [address] Absolute Neut 3.2 X10 3/uL Normal 2.0-7.7 [facility] Comment on above: Order Comment: 103.2 Performed By: #### L 503.0106, L500.2500, L100.0100, L501.5200, L506.1001, L501.9520 ####[facility] [address] [place], [address] Basophils/100 WBC (Bld) 1.0 % Normal 0-1 [facility] Comment on above: Order Comment: 103.2 Performed By: #### L 503.0106, L500.2500, L100.0100, L501.5200, L506.1001, L501.9520 ####[facility] [address] [place], [address] Eosinophils/100 WBC (Bld) 4.4 % Normal 0-5 [facility] Comment on above: Order Comment: 103.2 Performed By: #### L 503.0106, L500.2500, L100.0100, L501.5200, L506.1001, L501.9520 ####[facility] [address] [place], [address] Erythrocyte distribution width (RBC) [Ratio] 13.2 % Normal 11.6-14.6 [facility] Comment on above: Order Comment: 103.2 Performed By: #### L 503.0106, L500.2500, L100.0100, L501.5200, L506.1001, L501.9520 ####[facility] [address] [place], [address] Hematocrit (Bld) [Volume fraction] 42.5 % Normal 40-54 [facility] Comment on above: Order Comment: 103.2 Performed By: #### L 503.0106, L500.2500, L100.0100, L501.5200, L506.1001, L501.9520 ####[facility] [address] [place], [address] Hemoglobin (Bld) [Mass/Vol] 14.5 g/dL Normal 13.0-16.5 [facility] Comment on above: Order Comment: 103.2 Performed By: #### L 503.0106, L500.2500, L100.0100, L501.5200, L506.1001, L501.9520 ####[facility] [address] [place], [address] IG% 0.700 Normal 0.0-0.9 [facility] Comment on above: Order Comment: 103.2 Result Comment: IG% - Immature Granulocytes (promyelocytes, myelocytes andmetamyelocytes) > 1% indicates that a LEFT SHIFT is Present. Performed By: #### L 503.0106, L500.2500, L100.0100, L501.5200, L506.1001, L501.9520 ####[facility] [address] [place], [address] Lymphocytes/100 WBC (Bld) 22.4 % Normal 19-41 [facility] Comment on above: Order Comment: 103.2 Performed By: #### L 503.0106, L500.2500, L100.0100, L501.5200, L506.1001, L501.9520 ####[facility] [address] [place], [address] MCH (RBC) [Entitic mass] 33.3 pg High 27.0-32.0 [facility] Comment on above: Order Comment: 103.2 Performed By: #### L 503.0106, L500.2500, L100.0100, L501.5200, L506.1001, L501.9520 ####[facility] [address] [place], [address] MCHC (RBC) [Mass/Vol] 34.1 g/dL Normal 32-36 [facility] Comment on above: Order Comment: 103.2 Performed By: #### L 503.0106, L500.2500, L100.0100, L501.5200, L506.1001, L501.9520 ####[facility] [address] [place], [address] MCV (RBC) [Entitic vol] 97.7 fL High 80-94 [facility] Comment on above: Order Comment: 103.2 Performed By: #### L 503.0106, L500.2500, L100.0100, L501.5200, L506.1001, L501.9520 ####[facility] [address] [place], [address] Monocytes/100 WBC (Bld) 17.5 % High 0-10 [facility] Comment on above: Order Comment: 103.2 Performed By: #### L 503.0106, L500.2500, L100.0100, L501.5200, L506.1001, L501.9520 ####[facility] [address] [place], [address] Neutrophils/100 WBC (Bld) 54.0 % Normal 47-70 [facility] Comment on above: Order Comment: 103.2 Performed By: #### L 503.0106, L500.2500, L100.0100, L501.5200, L506.1001, L501.9520 ####[facility] [address] [place], [address] Nucleated RBC (Bld) [#/Vol] 0 10*3/uL Normal 0-5 [facility] Comment on above: Order Comment: 103.2 Performed By: #### L 503.0106, L500.2500, L100.0100, L501.5200, L506.1001, L501.9520 ####[facility] [address] [place], [address] Platelet mean volume (Bld) [Entitic vol] 10.2 fL Normal 6.2-12.0 [facility] Comment on above: Order Comment: 103.2 Performed By: #### L 503.0106, L500.2500, L100.0100, L501.5200, L506.1001, L501.9520 ####[facility] [address] [place], [address] Platelets (Bld) [#/Vol] 172 10*3/uL Normal 150-450 [facility] Comment on above: Order Comment: 103.2 Performed By: #### L 503.0106, L500.2500, L100.0100, L501.5200, L506.1001, L501.9520 ####[facility] [address] [place], [address] RBC (Bld) [#/Vol] 4.35 10*6/uL Low 4.6-6.2 [facility] Comment on above: Order Comment: 103.2 Performed By: #### L 503.0106, L500.2500, L100.0100, L501.5200, L506.1001, L501.9520 ####[facility] [address] [place], [address] RDW SD 47.0 fl High 35.1-43.9 [facility] Comment on above: Order Comment: 103.2 Performed By: #### L 503.0106, L500.2500, L100.0100, L501.5200, L506.1001, L501.9520 ####[facility] [address] [place], [address] WBC (Bld) [#/Vol] 5.9 10*3/uL Normal 4.4-11.0 [facility] Comment on above: Order Comment: 103.2 Performed By: #### L 503.0106, L500.2500, L100.0100, L501.5200, L506.1001, L501.9520 ####[facility] [address] [place], [address] L503.0106on 04-30-2024 Cobalamin (Vitamin B12) [Mass/Vol] 522 pg/mL Normal 180-914 [facility] Comment on above: Order Comment: 103.2 Performed By: #### L 503.0106, L500.2500, L100.0100, L501.5200, L506.1001, L501.9520 ####[facility] [address] [place], [address] L506.1001on 04-30-2024 Vitamin D 25-OH 52.8 ng/mL Normal 30-100 [facility] Comment on above: Order Comment: 103.2 Result Comment: Sandra min D StatusDeficiency: <20 ng/mL (50nmol/L)Insufficiency: 20-30 ng/mL (50-75 nmol/L)Sufficiency: 30-100 ng/mL (75-250 nmol/L)Toxicity: >100 ng/mL (>250 nmol/L) Performed By: #### L 503.0106, L500.2500, L100.0100, L501.5200, L506.1001, L501.9520 ####[facility] [address] [place], [address] Magnesiumon 04-30-2024 Magnesium [Mass/Vol] 2.1 mg/dL Normal 1.5-2.2 [facility] Comment on above: Order Comment: 103.2 Performed By: #### L 503.0106, L500.2500, L100.0100, L501.5200, L506.1001, L501.9520 ####[facility] [address] [place], [address] Thyroid Stim Hormone (TSH)on 04-30-2024 TSH 3.020 uIU/mL Normal 0.300-4.200 [facility] Comment on above: Order Comment: 103.2 Performed By: #### L 503.0106, L500.2500, L100.0100, L501.5200, L506.1001, L501.9520 ####[facility] [address] [place], [address] Basic Metabolic Profile (BMP )on 04-23-2024 BUN/CRE 21.4 RATIO High 10-20 [facility] Comment on above: Performed By: #### L 100.0100, L500.2500 ####[facility] [address] [place], [address] Calcium [Mass/Vol] 8.9 mg/dL Normal 7.6-11.0 [facility] Comment on above: Performed By: #### L 100.0100, L500.2500 ####[facility] [address] [place], [address] Chloride [Moles/Vol] 97 mmol/L Low 98-108 [facility] Comment on above: Performed By: #### L 100.0100, L500.2500 ####[facility] [address] [place], [address] CO2 [Moles/Vol] 25.6 mmol/L Normal 21.0-32.0 [facility] Comment on above: Performed By: #### L 100.0100, L500.2500 ####[facility] [address] [place], [address] Creatinine [Mass/Vol] 0.78 mg/dL Normal 0.70-1.20 [facility] Comment on above: Performed By: #### L 100.0100, L500.2500 ####[facility] [address] [place], [address] ECRCL 86.71 ml/min Normal 50-250 [facility] Comment on above: Performed By: #### L 100.0100, L500.2500 ####[facility] [address] [place], [address] GAP 11 Normal 5-15 [facility] Comment on above: Performed By: #### L 100.0100, L500.2500 ####[facility] [address] [place], [address] GFR/1.73 sq M.predicted among non-blacks MDRD (S/P/Bld) [Vol rate/Area] 93 mL/min/{1.73_m2} Normal >60 [facility] Comment on above: Result Comment: mL/m in/1.73m2 CKD-EPI Creatinine Equation (2020) Performed By: #### L 100.0100, L500.2500 ####[facility] [address] [place], [address] Glucose [Mass/Vol] 95 mg/dL Normal 70-99 [facility] Comment on above: Performed By: #### L 100.0100, L500.2500 ####[facility] [address] [place], [address] Potassium [Moles/Vol] 4.7 mmol/L Normal 3.3-5.1 [facility] Comment on above: Performed By: #### L 100.0100, L500.2500 ####[facility] [address] [place], [address] Sodium [Moles/Vol] 133 mmol/L Normal 133-145 [facility] Comment on above: Performed By: #### L 100.0100, L500.2500 ####[facility] [address] [place], [address] Urea nitrogen [Mass/Vol] 17 mg/dL Normal 4-19 [facility] Comment on above: Performed By: #### L 100.0100, L500.2500 ####[facility] [address] [place], [address] CBC W/Diff, Automatedon 04-07 Absolute Lymph 0.88 X10 3/uL Normal 0.83-4.51 [facility] Comment on above: Performed By: #### L 100.0100, L500.2500 ####[facility] [address] [place], [address] Absolute Neut 6.6 X10 3/uL Normal 2.0-7.7 [facility] Comment on above: Performed By: #### L 100.0100, L500.2500 ####[facility] [address] [place], [address] Basophils/100 WBC (Bld) 0.4 % Normal 0-1 [facility] Comment on above: Performed By: #### L 100.0100, L500.2500 ####[facility] [address] [place], [address] Eosinophils/100 WBC (Bld) 0.1 % Normal 0-5 [facility] Comment on above: Performed By: #### L 100.0100, L500.2500 ####[facility] [address] [place], [address] Erythrocyte distribution width (RBC) [Ratio] 13.7 % Normal 11.6-14.6 [facility] Comment on above: Performed By: #### L 100.0100, L500.2500 ####[facility] [address] [place], [address] Hematocrit (Bld) [Volume fraction] 40.4 % Normal 40-54 [facility] Comment on above: Performed By: #### L 100.0100, L500.2500 ####[facility] [address] [place], [address] Hemoglobin (Bld) [Mass/Vol] 13.7 g/dL Normal 13.0-16.5 [facility] Comment on above: Performed By: #### L 100.0100, L500.2500 ####[facility] [address] [place], [address] IG% 0.600 Normal 0.0-0.9 [facility] Comment on above: Result Comment: IG% - Immature Granulocytes (promyelocytes, myelocytes andmetamyelocytes) > 1% indicates that a LEFT SHIFT is Present. Performed By: #### L 100.0100, L500.2500 ####[facility] [address] [place], [address] Lymphocytes/100 WBC (Bld) 10.4 % Low 19-41 [facility] Comment on above: Performed By: #### L 100.0100, L500.2500 ####[facility] [address] [place], [address] MCH (RBC) [Entitic mass] 32.5 pg High 27.0-32.0 [facility] Comment on above: Performed By: #### L 100.0100, L500.2500 ####[facility] [address] [place], [address] MCHC (RBC) [Mass/Vol] 33.9 g/dL Normal 32-36 [facility] Comment on above: Performed By: #### L 100.0100, L500.2500 ####[facility] [address] [place], [address] MCV (RBC) [Entitic vol] 95.7 fL High 80-94 [facility] Comment on above: Performed By: #### L 100.0100, L500.2500 ####[facility] [address] [place], [address] Monocytes/100 WBC (Bld) 11.0 % High 0-10 [facility] Comment on above: Performed By: #### L 100.0100, L500.2500 ####[facility] [address] [place], [address] Neutrophils/100 WBC (Bld) 77.5 % High 47-70 [facility] Comment on above: Performed By: #### L 100.0100, L500.2500 ####[facility] [address] [place], [address] Nucleated RBC (Bld) [#/Vol] 0 10*3/uL Normal 0-5 [facility] Comment on above: Performed By: #### L 100.0100, L500.2500 ####[facility] [address] [place], [address] Platelet mean volume (Bld) [Entitic vol] 9.9 fL Normal 6.2-12.0 [facility] Comment on above: Performed By: #### L 100.0100, L500.2500 ####[facility] [address] [place], [address] Platelets (Bld) [#/Vol] 148 10*3/uL Low 150-450 [facility] Comment on above: Performed By: #### L 100.0100, L500.2500 ####[facility] [address] [place], [address] RBC (Bld) [#/Vol] 4.22 10*6/uL Low 4.6-6.2 [facility] Comment on above: Performed By: #### L 100.0100, L500.2500 ####[facility] [address] [place], [address] RDW SD 48.1 fl High 35.1-43.9 [facility] Comment on above: Performed By: #### L 100.0100, L500.2500 ####[facility] [address] [place], [address] WBC (Bld) [#/Vol] 8.5 10*3/uL Normal 4.4-11.0 [facility] Comment on above: Performed By: #### L 100.0100, L500.2500 ####[facility] [address] [place], [address] Pelvis (Routine)on Pelvis (Routine) Normal [facility] 12 Lead EKGon 04-22-2024 12 Lead EKG Normal [facility] Alcohol, Blood (Medical)-Ser umon 04-22-2024 SERUM ETOH 91.6 mg/dL High <=10.0 [facility] Comment on above: Result Comment: This test is for medical purposes only. The legaldefinition of intoxication varies according to local law. Performed By: #### L 501.9100 ####[facility] [address] [place], [address] Basic Metabolic Profile (BMP )on 04-22-2024 BUN/CRE 16.9 RATIO Normal 10-20 [facility] Comment on above: Performed By: #### L 500.3400, L100.0100, L500.2500, L501.2450, L501.4021 ####[facility] [address] [place], [address] Calcium [Mass/Vol] 9.2 mg/dL Normal 7.6-11.0 [facility] Comment on above: Performed By: #### L 500.3400, L100.0100, L500.2500, L501.2450, L501.4021 ####[facility] [address] [place], [address] Chloride [Moles/Vol] 99 mmol/L Normal 98-108 [facility] Comment on above: Performed By: #### L 500.3400, L100.0100, L500.2500, L501.2450, L501.4021 ####[facility] [address] [place], [address] CO2 [Moles/Vol] 25.2 mmol/L Normal 21.0-32.0 [facility] Comment on above: Performed By: #### L 500.3400, L100.0100, L500.2500, L501.2450, L501.4021 ####[facility] [address] [place], [address] Creatinine [Mass/Vol] 0.93 mg/dL Normal 0.70-1.20 [facility] Comment on above: Performed By: #### L 500.3400, L100.0100, L500.2500, L501.2450, L501.4021 ####[facility] [address] [place], [address] ECRCL 86.05 ml/min Normal 50-250 [facility] Comment on above: Performed By: #### L 500.3400, L100.0100, L500.2500, L501.2450, L501.4021 ####[facility] [address] [place], [address] GAP 14 Normal 5-15 [facility] Comment on above: Performed By: #### L 500.3400, L100.0100, L500.2500, L501.2450, L501.4021 ####[facility] [address] [place], [address] GFR/1.73 sq M.predicted among non-blacks MDRD (S/P/Bld) [Vol rate/Area] 86 mL/min/{1.73_m2} Normal >60 [facility] Comment on above: Result Comment: mL/m in/1.73m2 CKD-EPI Creatinine Equation (2020) Performed By: #### L 500.3400, L100.0100, L500.2500, L501.2450, L501.4021 ####[facility] [address] [place], [address] Glucose [Mass/Vol] 79 mg/dL Normal 70-99 [facility] Comment on above: Performed By: #### L 500.3400, L100.0100, L500.2500, L501.2450, L501.4021 ####[facility] [address] [place], [address] Potassium [Moles/Vol] 4.3 mmol/L Normal 3.3-5.1 [facility] Comment on above: Performed By: #### L 500.3400, L100.0100, L500.2500, L501.2450, L501.4021 ####[facility] [address] [place], [address] Sodium [Moles/Vol] 138 mmol/L Normal 133-145 [facility] Comment on above: Performed By: #### L 500.3400, L100.0100, L500.2500, L501.2450, L501.4021 ####[facility] [address] [place], [address] Urea nitrogen [Mass/Vol] 16 mg/dL Normal 4-19 [facility] Comment on above: Performed By: #### L 500.3400, L100.0100, L500.2500, L501.2450, L501.4021 ####[facility] [address] [place], [address] Brain/Head without Contrasto n 04-22-2024 Brain/Head without Contrast Normal [facility] CBC W/Diff, Automatedon 03- Absolute Lymph 1.32 X10 3/uL Normal 0.83-4.51 [facility] Comment on above: Performed By: #### L 500.3400, L100.0100, L500.2500, L501.2450, L501.4021 ####[facility] [address] [place], [address] Absolute Neut 12.2 X10 3/uL High 2.0-7.7 [facility] Comment on above: Performed By: #### L 500.3400, L100.0100, L500.2500, L501.2450, L501.4021 ####[facility] [address] [place], [address] Basophils/100 WBC (Bld) 0.2 % Normal 0-1 [facility] Comment on above: Performed By: #### L 500.3400, L100.0100, L500.2500, L501.2450, L501.4021 ####[facility] [address] [place], [address] Eosinophils/100 WBC (Bld) 0.1 % Normal 0-5 [facility] Comment on above: Performed By: #### L 500.3400, L100.0100, L500.2500, L501.2450, L501.4021 ####[facility] [address] [place], [address] Erythrocyte distribution width (RBC) [Ratio] 13.6 % Normal 11.6-14.6 [facility] Comment on above: Performed By: #### L 500.3400, L100.0100, L500.2500, L501.2450, L501.4021 ####[facility] [address] [place], [address] Hematocrit (Bld) [Volume fraction] 42.9 % Normal 40-54 [facility] Comment on above: Performed By: #### L 500.3400, L100.0100, L500.2500, L501.2450, L501.4021 ####[facility] [address] [place], [address] Hemoglobin (Bld) [Mass/Vol] 14.5 g/dL Normal 13.0-16.5 [facility] Comment on above: Performed By: #### L 500.3400, L100.0100, L500.2500, L501.2450, L501.4021 ####[facility] [address] [place], [address] IG% 1.000 High 0.0-0.9 [facility] Comment on above: Result Comment: IG% - Immature Granulocytes (promyelocytes, myelocytes andmetamyelocytes) > 1% indicates that a LEFT SHIFT is Present. Performed By: #### L 500.3400, L100.0100, L500.2500, L501.2450, L501.4021 ####[facility] [address] [place], [address] Lymphocytes/100 WBC (Bld) 9.0 % Low 19-41 [facility] Comment on above: Performed By: #### L 500.3400, L100.0100, L500.2500, L501.2450, L501.4021 ####[facility] [address] [place], [address] MCH (RBC) [Entitic mass] 32.6 pg High 27.0-32.0 [facility] Comment on above: Performed By: #### L 500.3400, L100.0100, L500.2500, L501.2450, L501.4021 ####[facility] [address] [place], [address] MCHC (RBC) [Mass/Vol] 33.8 g/dL Normal 32-36 [facility] Comment on above: Performed By: #### L 500.3400, L100.0100, L500.2500, L501.2450, L501.4021 ####[facility] [address] [place], [address] MCV (RBC) [Entitic vol] 96.4 fL High 80-94 [facility] Comment on above: Performed By: #### L 500.3400, L100.0100, L500.2500, L501.2450, L501.4021 ####[facility] [address] [place], [address] Monocytes/100 WBC (Bld) 7.0 % Normal 0-10 [facility] Comment on above: Performed By: #### L 500.3400, L100.0100, L500.2500, L501.2450, L501.4021 ####[facility] [address] [place], [address] Neutrophils/100 WBC (Bld) 82.7 % High 47-70 [facility] Comment on above: Performed By: #### L 500.3400, L100.0100, L500.2500, L501.2450, L501.4021 ####[facility] [address] [place], [address] Nucleated RBC (Bld) [#/Vol] 0 10*3/uL Normal 0-5 [facility] Comment on above: Performed By: #### L 500.3400, L100.0100, L500.2500, L501.2450, L501.4021 ####[facility] [address] [place], [address] Platelet mean volume (Bld) [Entitic vol] 9.8 fL Normal 6.2-12.0 [facility] Comment on above: Performed By: #### L 500.3400, L100.0100, L500.2500, L501.2450, L501.4021 ####[facility] [address] [place], [address] Platelets (Bld) [#/Vol] 212 10*3/uL Normal 150-450 [facility] Comment on above: Performed By: #### L 500.3400, L100.0100, L500.2500, L501.2450, L501.4021 ####[facility] [address] [place], [address] RBC (Bld) [#/Vol] 4.45 10*6/uL Low 4.6-6.2 [facility] Comment on above: Performed By: #### L 500.3400, L100.0100, L500.2500, L501.2450, L501.4021 ####[facility] [address] [place], [address] RDW SD 48.8 fl High 35.1-43.9 [facility] Comment on above: Performed By: #### L 500.3400, L100.0100, L500.2500, L501.2450, L501.4021 ####[facility] [address] [place], [address] WBC (Bld) [#/Vol] 14.7 10*3/uL High 4.4-11.0 [facility] Comment on above: Performed By: #### L 500.3400, L100.0100, L500.2500, L501.2450, L501.4021 ####[facility] [address] [place], [address] Chest 1 View (Portable)on Chest 1 View (Portable) Normal [facility] Emergency Department Summary on 04-22-2024 Emergency Department Summary Normal [facility] Extremity Lower without Cont raon 04-22-2024 Extremity Lower without Contra Normal [facility] H AND P Exam - Hospitaliston 04-22-2024 H&P Exam - Hospitalist Normal [facility] HIP, UNI W/ Pelvis 2-3 Views on 04-22-2024 HIP, UNI W/ Pelvis 2-3 Views Normal [facility] L499.0042on 04-22-2024 Trop T High Sen 18 ng/L Normal <=22 [facility] Comment on above: Performed By: #### L 499.0042 ####[facility] [address] [place], [address] L501.4021on 04-22-2024 Trop T High Sen 18 ng/L Normal <=22 [facility] Comment on above: Performed By: #### L 500.3400, L100.0100, L500.2500, L501.2450, L501.4021 ####[facility] [address] [place], [address] Lipaseon 04-22-2024 Lipase [Catalytic activity/Vol] 59 U/L Normal 13-75 [facility] Comment on above: Result Comment: Nagi nelson note:LIPASE revised reference range effective 22.New Lipase methodology. Expected to produce lower valuesthan the previous assay method.NEW Reference Range: 13 - 75 U/L Performed By: #### L 500.3400, L100.0100, L500.2500, L501.2450, L501.4021 ####[facility] [address] [place], [address] Liver Profileon 04-22-2024 Albumin [Mass/Vol] 4.2 g/dL Normal 3.4-4.8 [facility] Comment on above: Performed By: #### L 500.3400, L100.0100, L500.2500, L501.2450, L501.4021 ####[facility] [address] [place], [address] ALK PHOS 69 U/L Normal 40-129 [facility] Comment on above: Performed By: #### L 500.3400, L100.0100, L500.2500, L501.2450, L501.4021 ####[facility] [address] [place], [address] ALT [Catalytic activity/Vol] 29 U/L Normal <=46 [facility] Comment on above: Performed By: #### L 500.3400, L100.0100, L500.2500, L501.2450, L501.4021 ####[facility] [address] [place], [address] AST [Catalytic activity/Vol] 33 U/L Normal <=37 [facility] Comment on above: Performed By: #### L 500.3400, L100.0100, L500.2500, L501.2450, L501.4021 ####[facility] [address] [place], [address] Bilirubin [Mass/Vol] 0.56 mg/dL Normal 0.00-1.30 [facility] Comment on above: Performed By: #### L 500.3400, L100.0100, L500.2500, L501.2450, L501.4021 ####[facility] [address] [place], [address] Bilirubin.direct [Mass/Vol] 0.32 mg/dL High 0.00-0.30 [facility] Comment on above: Performed By: #### L 500.3400, L100.0100, L500.2500, L501.2450, L501.4021 ####[facility] [address] [place], [address] Globulin (S) [Mass/Vol] 2.9 g/dL Normal 2.2-4.2 [facility] Comment on above: Performed By: #### L 500.3400, L100.0100, L500.2500, L501.2450, L501.4021 ####[facility] [address] [place], [address] T PROT 7.1 g/dL Normal 5.9-8.4 [facility] Comment on above: Performed By: #### L 500.3400, L100.0100, L500.2500, L501.2450, L501.4021 ####[facility] [address] [place], [address] Lumbar Spine 2 or 3 Viewson 04-22-2024 Lumbar Spine 2 or 3 Views Normal [facility] Prothrombin Time w/INRon INR Coag (PPP) [Relative time] 0.9 {INR} Normal [facility] Comment on above: Performed By: #### L 300.3900 ####[facility] [address] [place], [address] PT Coag (PPP) [Time] 12.3 s Normal 11.7-14.9 [facility] Comment on above: Performed By: #### L 300.3900 ####[facility] [address] [place], [address] Spine Cervical without Contr ason 04-22-2024 Spine Cervical without Contras Normal [facility] CBC W/Diff, Automatedon - Absolute Lymph 0.78 X10 3/uL Low 0.83-4.51 [facility] Comment on above: Performed By: #### L 100.0100, L500.4050, L501.2450 ####[facility] [address] [place], [address] Absolute Neut 3.2 X10 3/uL Normal 2.0-7.7 [facility] Comment on above: Performed By: #### L 100.0100, L500.4050, L501.2450 ####[facility] [address] [place], [address] Basophils/100 WBC (Bld) 0.7 % Normal 0-1 [facility] Comment on above: Performed By: #### L 100.0100, L500.4050, L501.2450 ####[facility] [address] [place], [address] Eosinophils/100 WBC (Bld) 0.2 % Normal 0-5 [facility] Comment on above: Performed By: #### L 100.0100, L500.4050, L501.2450 ####[facility] [address] [place], [address] Erythrocyte distribution width (RBC) [Ratio] 13.7 % Normal 11.6-14.6 [facility] Comment on above: Performed By: #### L 100.0100, L500.4050, L501.2450 ####[facility] [address] [place], [address] Hematocrit (Bld) [Volume fraction] 44.9 % Normal 40-54 [facility] Comment on above: Performed By: #### L 100.0100, L500.4050, L501.2450 ####[facility] [address] [place], [address] Hemoglobin (Bld) [Mass/Vol] 14.9 g/dL Normal 13.0-16.5 [facility] Comment on above: Performed By: #### L 100.0100, L500.4050, L501.2450 ####[facility] [address] [place], [address] IG% 0.400 Normal 0.0-0.9 [facility] Comment on above: Result Comment: IG% - Immature Granulocytes (promyelocytes, myelocytes andmetamyelocytes) > 1% indicates that a LEFT SHIFT is Present. Performed By: #### L 100.0100, L500.4050, L501.2450 ####[facility] [address] [place], [address] Lymphocytes/100 WBC (Bld) 17.0 % Low 19-41 [facility] Comment on above: Performed By: #### L 100.0100, L500.4050, L501.2450 ####[facility] [address] [place], [address] MCH (RBC) [Entitic mass] 32.0 pg Normal 27.0-32.0 [facility] Comment on above: Performed By: #### L 100.0100, L500.4050, L501.2450 ####[facility] [address] [place], [address] MCHC (RBC) [Mass/Vol] 33.2 g/dL Normal 32-36 [facility] Comment on above: Performed By: #### L 100.0100, L500.4050, L501.2450 ####[facility] [address] [place], [address] MCV (RBC) [Entitic vol] 96.4 fL High 80-94 [facility] Comment on above: Performed By: #### L 100.0100, L500.4050, L501.2450 ####[facility] [address] [place], [address] Monocytes/100 WBC (Bld) 12.4 % High 0-10 [facility] Comment on above: Performed By: #### L 100.0100, L500.4050, L501.2450 ####[facility] [address] [place], [address] Neutrophils/100 WBC (Bld) 69.3 % Normal 47-70 [facility] Comment on above: Performed By: #### L 100.0100, L500.4050, L501.2450 ####[facility] [address] [place], [address] Nucleated RBC (Bld) [#/Vol] 0 10*3/uL Normal 0-5 [facility] Comment on above: Performed By: #### L 100.0100, L500.4050, L501.2450 ####[facility] [address] [place], [address] Platelet mean volume (Bld) [Entitic vol] 9.6 fL Normal 6.2-12.0 [facility] Comment on above: Performed By: #### L 100.0100, L500.4050, L501.2450 ####[facility] [address] [place], [address] Platelets (Bld) [#/Vol] 240 10*3/uL Normal 150-450 [facility] Comment on above: Performed By: #### L 100.0100, L500.4050, L501.2450 ####[facility] [address] [place], [address] RBC (Bld) [#/Vol] 4.66 10*6/uL Normal 4.6-6.2 [facility] Comment on above: Performed By: #### L 100.0100, L500.4050, L501.2450 ####[facility] [address] [place], [address] RDW SD 48.6 fl High 35.1-43.9 [facility] Comment on above: Performed By: #### L 100.0100, L500.4050, L501.2450 ####[facility] [address] [place], [address] WBC (Bld) [#/Vol] 4.6 10*3/uL Normal 4.4-11.0 [facility] Comment on above: Performed By: #### L 100.0100, L500.4050, L501.2450 ####[facility] [address] [place], [address] Comprehensive Metabolic [facility] 03-07-2024 Albumin [Mass/Vol] 3.9 g/dL Normal 3.2-5.0 [facility] Comment on above: Performed By: #### L 100.0100, L500.4050, L501.2450 ####[facility] [address] [place], [address] Albumin/Globulin [Mass ratio] 0.9 {ratio} Normal 0.9-2.4 [facility] Comment on above: Performed By: #### L 100.0100, L500.4050, L501.2450 ####[facility] [address] [place], [address] ALK P 77 U/L Normal 45-117 [facility] Comment on above: Performed By: #### L 100.0100, L500.4050, L501.2450 ####[facility] [address] [place], [address] ALT [Catalytic activity/Vol] 56 U/L Normal 16-61 [facility] Comment on above: Performed By: #### L 100.0100, L500.4050, L501.2450 ####[facility] [address] [place], [address] AST [Catalytic activity/Vol] 67 U/L High 15-37 [facility] Comment on above: Performed By: #### L 100.0100, L500.4050, L501.2450 ####[facility] [address] [place], [address] Bilirubin [Mass/Vol] 1.10 mg/dL High 0.20-1.00 [facility] Comment on above: Result Comment: For patients on eltrombopag therapy, use of Dimension [place] TBIL is not recommended. Performed By: #### L 100.0100, L500.4050, L501.2450 ####[facility] [address] [place], [address] BUN/CRE 8.1 RATIO Low 10-20 [facility] Comment on above: Performed By: #### L 100.0100, L500.4050, L501.2450 ####[facility] [address] [place], [address] CA,Total 10.2 mg/dL High 8.5-10.1 [facility] Comment on above: Performed By: #### L 100.0100, L500.4050, L501.2450 ####[facility] [address] [place], [address] Chloride [Moles/Vol] 95 mmol/L Low 98-107 [facility] Comment on above: Performed By: #### L 100.0100, L500.4050, L501.2450 ####[facility] [address] [place], [address] CO2 [Moles/Vol] 34.0 mmol/L High 21.0-32.0 [facility] Comment on above: Performed By: #### L 100.0100, L500.4050, L501.2450 ####[facility] [address] [place], [address] Creatinine [Mass/Vol] 0.99 mg/dL Normal 0.70-1.30 [facility] Comment on above: Result Comment: The validity of the calculated GFR GFRAA in patients over70 years has not been determined. Clinical correlation isessential. Performed By: #### L 100.0100, L500.4050, L501.2450 ####[facility] [address] [place], [address] ECRCL 80.87 ml/min Normal [facility] Comment on above: Performed By: #### L 100.0100, L500.4050, L501.2450 ####[facility] [address] [place], [address] EST GFR - AA 94 mL/min Normal >60 [facility] Comment on above: Result Comment: Afri can [place] GFR Calc Performed By: #### L 100.0100, L500.4050, L501.2450 ####[facility] [address] [place], [address] GAP 6 Normal 5-15 [facility] Comment on above: Performed By: #### L 100.0100, L500.4050, L501.2450 ####[facility] [address] [place], [address] GFR/1.73 sq M.predicted among non-blacks MDRD (S/P/Bld) [Vol rate/Area] 78 mL/min/{1.73_m2} Normal >60 [facility] Comment on above: Result Comment: Non- GFR Calc Performed By: #### L 100.0100, L500.4050, L501.2450 ####[facility] [address] [place], [address] Globulin (S) [Mass/Vol] 4.2 g/dL Normal 2.2-4.2 [facility] Comment on above: Performed By: #### L 100.0100, L500.4050, L501.2450 ####[facility] [address] [place], [address] Glucose [Mass/Vol] 101 mg/dL Normal 74-106 [facility] Comment on above: Result Comment: Fast ing Glucose result from 100 to 125 mg/dLsuggests IMPAIRED HOMEOSTASIS per A.D.A. criteria. Performed By: #### L 100.0100, L500.4050, L501.2450 ####[facility] [address] [place], [address] Potassium [Moles/Vol] 3.7 mmol/L Normal 3.5-5.1 [facility] Comment on above: Performed By: #### L 100.0100, L500.4050, L501.2450 ####[facility] [address] [place], [address] Sodium [Moles/Vol] 135 mmol/L Low 136-145 [facility] Comment on above: Performed By: #### L 100.0100, L500.4050, L501.2450 ####[facility] [address] [place], [address] T PROT 8.1 g/dL Normal 6.4-8.2 [facility] Comment on above: Performed By: #### L 100.0100, L500.4050, L501.2450 ####[facility] [address] [place], [address] Urea nitrogen [Mass/Vol] 8 mg/dL Normal 7-18 [facility] Comment on above: Performed By: #### L 100.0100, L500.4050, L501.2450 ####[facility] [address] [place], [address] Emergency Department Summary on 03-07-2024 Emergency Department Summary Normal [facility] Lipaseon 03-07-2024 Lipase [Catalytic activity/Vol] 58 U/L Normal 13-75 [facility] Comment on above: Result Comment: Nagi nelson note:LIPASE revised reference range effective 22.New Lipase methodology. Expected to produce lower valuesthan the previous assay method.NEW Reference Range: 13 - 75 U/L Performed By: #### L 100.0100, L500.4050, L501.2450 ####[facility] [address] [place], [address] CBC W/Diff, Automatedon 02-08 Absolute Lymph 1.18 X10 3/uL Normal 0.83-4.51 [facility] Comment on above: Performed By: #### L 100.0100 ####[facility] [address] [place], [address] Absolute Neut 2.0 X10 3/uL Normal 2.0-7.7 [facility] Comment on above: Performed By: #### L 100.0100 ####[facility] [address] [place], [address] Basophils/100 WBC (Bld) 1.2 % High 0-1 [facility] Comment on above: Performed By: #### L 100.0100 ####[facility] [address] [place], [address] Eosinophils/100 WBC (Bld) 2.1 % Normal 0-5 [facility] Comment on above: Performed By: #### L 100.0100 ####[facility] [address] [place], [address] Erythrocyte distribution width (RBC) [Ratio] 13.8 % Normal 11.6-14.6 [facility] Comment on above: Performed By: #### L 100.0100 ####[facility] [address] [place], [address] Hematocrit (Bld) [Volume fraction] 42.2 % Normal 40-54 [facility] Comment on above: Performed By: #### L 100.0100 ####[facility] [address] [place], [address] Hemoglobin (Bld) [Mass/Vol] 13.8 g/dL Normal 13.0-16.5 [facility] Comment on above: Performed By: #### L 100.0100 ####[facility] [address] [place], [address] IG% 0.000 Normal 0.0-0.9 [facility] Comment on above: Result Comment: IG% - Immature Granulocytes (promyelocytes, myelocytes andmetamyelocytes) > 1% indicates that a LEFT SHIFT is Present. Performed By: #### L 100.0100 ####[facility] [address] [place], [address] Lymphocytes/100 WBC (Bld) 28.2 % Normal 19-41 [facility] Comment on above: Performed By: #### L 100.0100 ####[facility] [address] [place], [address] MCH (RBC) [Entitic mass] 32.9 pg High 27.0-32.0 [facility] Comment on above: Performed By: #### L 100.0100 ####[facility] [address] [place], [address] MCHC (RBC) [Mass/Vol] 32.7 g/dL Normal 32-36 [facility] Comment on above: Performed By: #### L 100.0100 ####[facility] [address] [place], [address] MCV (RBC) [Entitic vol] 100.5 fL High 80-94 [facility] Comment on above: Performed By: #### L 100.0100 ####[facility] [address] [place], [address] Monocytes/100 WBC (Bld) 20.8 % High 0-10 [facility] Comment on above: Performed By: #### L 100.0100 ####[facility] [address] [place], [address] Neutrophils/100 WBC (Bld) 47.7 % Normal 47-70 [facility] Comment on above: Performed By: #### L 100.0100 ####[facility] [address] [place], [address] Nucleated RBC (Bld) [#/Vol] 0 10*3/uL Normal 0-5 [facility] Comment on above: Performed By: #### L 100.0100 ####[facility] [address] [place], [address] Platelet mean volume (Bld) [Entitic vol] 10.5 fL Normal 6.2-12.0 [facility] Comment on above: Performed By: #### L 100.0100 ####[facility] [address] [place], [address] Platelets (Bld) [#/Vol] 199 10*3/uL Normal 150-450 [facility] Comment on above: Performed By: #### L 100.0100 ####[facility] [address] [place], [address] RBC (Bld) [#/Vol] 4.20 10*6/uL Low 4.6-6.2 [facility] Comment on above: Performed By: #### L 100.0100 ####[facility] [address] [place], [address] RDW SD 50.9 fl High 35.1-43.9 [facility] Comment on above: Performed By: #### L 100.0100 ####[facility] [address] [place], [address] WBC (Bld) [#/Vol] 4.2 10*3/uL Low 4.4-11.0 [facility] Comment on above: Performed By: #### L 100.0100 ####[facility] [address] [place], [address] Basic Metabolic Profile (BMP )on 02-20-2024 BUN/CRE 8.8 RATIO Low 10-20 [facility] Comment on above: Performed By: #### L 500.2500, L100.0100 ####[facility] [address] [place], [address] CA,Total 8.8 mg/dL Normal 8.5-10.1 [facility] Comment on above: Performed By: #### L 500.2500, L100.0100 ####[facility] [address] [place], [address] Chloride [Moles/Vol] 99 mmol/L Normal 98-107 [facility] Comment on above: Performed By: #### L 500.2500, L100.0100 ####[facility] [address] [place], [address] CO2 [Moles/Vol] 28.0 mmol/L Normal 21.0-32.0 [facility] Comment on above: Performed By: #### L 500.2500, L100.0100 ####[facility] [address] [place], [address] Creatinine [Mass/Vol] 0.80 mg/dL Normal 0.70-1.30 [facility] Comment on above: Result Comment: The validity of the calculated GFR GFRAA in patients over70 years has not been determined. Clinical correlation isessential. Performed By: #### L 500.2500, L100.0100 ####[facility] [address] [place], [address] ECRCL 103.48 ml/min Normal [facility] Comment on above: Performed By: #### L 500.2500, L100.0100 ####[facility] [address] [place], [address] EST GFR - AA 122 mL/min Normal >60 [facility] Comment on above: Result Comment: Afri can [place] GFR Calc Performed By: #### L 500.2500, L100.0100 ####[facility] [address] [place], [address] GAP 11 Normal 5-15 [facility] Comment on above: Performed By: #### L 500.2500, L100.0100 ####[facility] [address] [place], [address] GFR/1.73 sq M.predicted among non-blacks MDRD (S/P/Bld) [Vol rate/Area] 101 mL/min/{1.73_m2} Normal >60 [facility] Comment on above: Result Comment: Non- GFR Calc Performed By: #### L 500.2500, L100.0100 ####[facility] [address] [place], [address] Glucose [Mass/Vol] 80 mg/dL Normal 74-106 [facility] Comment on above: Performed By: #### L 500.2500, L100.0100 ####[facility] [address] [place], [address] Potassium [Moles/Vol] 3.8 mmol/L Normal 3.5-5.1 [facility] Comment on above: Performed By: #### L 500.2500, L100.0100 ####[facility] [address] [place], [address] Sodium [Moles/Vol] 138 mmol/L Normal 136-145 [facility] Comment on above: Performed By: #### L 500.2500, L100.0100 ####[facility] [address] [place], [address] Urea nitrogen [Mass/Vol] 7 mg/dL Normal 7-18 [facility] Comment on above: Performed By: #### L 500.2500, L100.0100 ####[facility] [address] [place], [address] CBC W/Diff, Automatedon 02-07-2024 Absolute Lymph 1.34 X10 3/uL Normal 0.83-4.51 [facility] Comment on above: Performed By: #### L 500.2500, L100.0100 ####[facility] [address] [place], [address] Absolute Neut 3.0 X10 3/uL Normal 2.0-7.7 [facility] Comment on above: Performed By: #### L 500.2500, L100.0100 ####[facility] [address] [place], [address] Basophils/100 WBC (Bld) 0.4 % Normal 0-1 [facility] Comment on above: Performed By: #### L 500.2500, L100.0100 ####[facility] [address] [place], [address] Eosinophils/100 WBC (Bld) 2.0 % Normal 0-5 [facility] Comment on above: Performed By: #### L 500.2500, L100.0100 ####[facility] [address] [place], [address] Erythrocyte distribution width (RBC) [Ratio] 14.2 % Normal 11.6-14.6 [facility] Comment on above: Performed By: #### L 500.2500, L100.0100 ####[facility] [address] [place], [address] Hematocrit (Bld) [Volume fraction] 41.0 % Normal 40-54 [facility] Comment on above: Performed By: #### L 500.2500, L100.0100 ####[facility] [address] [place], [address] Hemoglobin (Bld) [Mass/Vol] 13.7 g/dL Normal 13.0-16.5 [facility] Comment on above: Performed By: #### L 500.2500, L100.0100 ####[facility] [address] [place], [address] IG% 0.400 Normal 0.0-0.9 [facility] Comment on above: Result Comment: IG% - Immature Granulocytes (promyelocytes, myelocytes andmetamyelocytes) > 1% indicates that a LEFT SHIFT is Present. Performed By: #### L 500.2500, L100.0100 ####[facility] [address] [place], [address] Lymphocytes/100 WBC (Bld) 26.2 % Normal 19-41 [facility] Comment on above: Performed By: #### L 500.2500, L100.0100 ####[facility] [address] [place], [address] MCH (RBC) [Entitic mass] 32.9 pg High 27.0-32.0 [facility] Comment on above: Performed By: #### L 500.2500, L100.0100 ####[facility] [address] [place], [address] MCHC (RBC) [Mass/Vol] 33.4 g/dL Normal 32-36 [facility] Comment on above: Performed By: #### L 500.2500, L100.0100 ####[facility] [address] [place], [address] MCV (RBC) [Entitic vol] 98.6 fL High 80-94 [facility] Comment on above: Performed By: #### L 500.2500, L100.0100 ####[facility] [address] [place], [address] Monocytes/100 WBC (Bld) 12.3 % High 0-10 [facility] Comment on above: Performed By: #### L 500.2500, L100.0100 ####[facility] [address] [place], [address] Neutrophils/100 WBC (Bld) 58.7 % Normal 47-70 [facility] Comment on above: Performed By: #### L 500.2500, L100.0100 ####[facility] [address] [place], [address] Nucleated RBC (Bld) [#/Vol] 0 10*3/uL Normal 0-5 [facility] Comment on above: Performed By: #### L 500.2500, L100.0100 ####[facility] [address] [place], [address] Platelet mean volume (Bld) [Entitic vol] 9.4 fL Normal 6.2-12.0 [facility] Comment on above: Performed By: #### L 500.2500, L100.0100 ####[facility] [address] [place], [address] Platelets (Bld) [#/Vol] 107 10*3/uL Low 150-450 [facility] Comment on above: Performed By: #### L 500.2500, L100.0100 ####[facility] [address] [place], [address] RBC (Bld) [#/Vol] 4.16 10*6/uL Low 4.6-6.2 [facility] Comment on above: Performed By: #### L 500.2500, L100.0100 ####[facility] [address] [place], [address] RDW SD 50.7 fl High 35.1-43.9 [facility] Comment on above: Performed By: #### L 500.2500, L100.0100 ####[facility] [address] [place], [address] WBC (Bld) [#/Vol] 5.1 10*3/uL Normal 4.4-11.0 [facility] Comment on above: Performed By: #### L 500.2500, L100.0100 ####[facility] [address] [place], [address] Emergency Department Summary on 02-20-2024 Emergency Department Summary Normal [facility] Plastic Surgery Visit Report on 02-03-2024 Plastic Surgery Visit Report Normal [facility] Plastic Surgery Visit Report on 01-27-2024 Plastic Surgery Visit Report Normal [facility] Surgery Specimen Level Ibis 01-27-2024 Surgery Specimen Level IV Normal [facility] Comment on above: Performed By: #### P SUIV ####[facility] [address] [place], [address] Plastic Surgery Visit Report on 12-30-2023 Plastic Surgery Visit Report Normal [facility] 12 Lead EKGon 12-18-2023 12 Lead EKG Normal [facility] CBC W/Diff, Automatedon 11- Absolute Lymph 2.50 X10 3/uL Normal 0.83-4.51 [facility] Comment on above: Performed By: #### L 501.2450, L501.4020, L100.0100, L500.4050 ####[facility] [address] [place], [address] Absolute Neut 3.5 X10 3/uL Normal 2.0-7.7 [facility] Comment on above: Performed By: #### L 501.2450, L501.4020, L100.0100, L500.4050 ####[facility] [address] [place], [address] Basophils/100 WBC (Bld) 0.6 % Normal 0-1 [facility] Comment on above: Performed By: #### L 501.2450, L501.4020, L100.0100, L500.4050 ####[facility] [address] [place], [address] Eosinophils/100 WBC (Bld) 0.7 % Normal 0-5 [facility] Comment on above: Performed By: #### L 501.2450, L501.4020, L100.0100, L500.4050 ####[facility] [address] [place], [address] Erythrocyte distribution width (RBC) [Ratio] 13.4 % Normal 11.6-14.6 [facility] Comment on above: Performed By: #### L 501.2450, L501.4020, L100.0100, L500.4050 ####[facility] [address] [place], [address] Hematocrit (Bld) [Volume fraction] 43.9 % Normal 40-54 [facility] Comment on above: Performed By: #### L 501.2450, L501.4020, L100.0100, L500.4050 ####[facility] [address] [place], [address] Hemoglobin (Bld) [Mass/Vol] 15.1 g/dL Normal 13.0-16.5 [facility] Comment on above: Performed By: #### L 501.2450, L501.4020, L100.0100, L500.4050 ####[facility] [address] [place], [address] IG% 0.300 Normal 0.0-0.9 [facility] Comment on above: Result Comment: IG% - Immature Granulocytes (promyelocytes, myelocytes andmetamyelocytes) > 1% indicates that a LEFT SHIFT is Present. Performed By: #### L 501.2450, L501.4020, L100.0100, L500.4050 ####[facility] [address] [place], [address] Lymphocytes/100 WBC (Bld) 36.9 % Normal 19-41 [facility] Comment on above: Performed By: #### L 501.2450, L501.4020, L100.0100, L500.4050 ####[facility] [address] [place], [address] MCH (RBC) [Entitic mass] 33.8 pg High 27.0-32.0 [facility] Comment on above: Performed By: #### L 501.2450, L501.4020, L100.0100, L500.4050 ####[facility] [address] [place], [address] MCHC (RBC) [Mass/Vol] 34.4 g/dL Normal 32-36 [facility] Comment on above: Performed By: #### L 501.2450, L501.4020, L100.0100, L500.4050 ####[facility] [address] [place], [address] MCV (RBC) [Entitic vol] 98.2 fL High 80-94 [facility] Comment on above: Performed By: #### L 501.2450, L501.4020, L100.0100, L500.4050 ####[facility] [address] [place], [address] Monocytes/100 WBC (Bld) 9.7 % Normal 0-10 [facility] Comment on above: Performed By: #### L 501.2450, L501.4020, L100.0100, L500.4050 ####[facility] [address] [place], [address] Neutrophils/100 WBC (Bld) 51.8 % Normal 47-70 [facility] Comment on above: Performed By: #### L 501.2450, L501.4020, L100.0100, L500.4050 ####[facility] [address] [place], [address] Nucleated RBC (Bld) [#/Vol] 0 10*3/uL Normal 0-5 [facility] Comment on above: Performed By: #### L 501.2450, L501.4020, L100.0100, L500.4050 ####[facility] [address] [place], [address] Platelet mean volume (Bld) [Entitic vol] 9.7 fL Normal 6.2-12.0 [facility] Comment on above: Performed By: #### L 501.2450, L501.4020, L100.0100, L500.4050 ####[facility] [address] [place], [address] Platelets (Bld) [#/Vol] 235 10*3/uL Normal 150-450 [facility] Comment on above: Performed By: #### L 501.2450, L501.4020, L100.0100, L500.4050 ####[facility] [address] [place], [address] RBC (Bld) [#/Vol] 4.47 10*6/uL Low 4.6-6.2 [facility] Comment on above: Performed By: #### L 501.2450, L501.4020, L100.0100, L500.4050 ####[facility] [address] [place], [address] RDW SD 49.0 fl High 35.1-43.9 [facility] Comment on above: Performed By: #### L 501.2450, L501.4020, L100.0100, L500.4050 ####[facility] [address] [place], [address] WBC (Bld) [#/Vol] 6.8 10*3/uL Normal 4.4-11.0 [facility] Comment on above: Performed By: #### L 501.2450, L501.4020, L100.0100, L500.4050 ####[facility] [address] [place], [address] Comprehensive Metabolic Prof [facility] 12-18-2023 Albumin [Mass/Vol] 3.6 g/dL Normal 3.2-5.0 [facility] Comment on above: Order Comment: 'TROP ' Serial specimen #1, #2 or #3: 1 Performed By: #### L 501.2450, L501.4020, L100.0100, L500.4050 ####[facility] [address] [place], [address] Albumin/Globulin [Mass ratio] 0.9 {ratio} Normal 0.9-2.4 [facility] Comment on above: Order Comment: 'TROP ' Serial specimen #1, #2 or #3: 1 Performed By: #### L 501.2450, L501.4020, L100.0100, L500.4050 ####[facility] [address] [place], [address] ALK P 74 U/L Normal 45-117 [facility] Comment on above: Order Comment: 'TROP ' Serial specimen #1, #2 or #3: 1 Performed By: #### L 501.2450, L501.4020, L100.0100, L500.4050 ####[facility] [address] [place], [address] ALT [Catalytic activity/Vol] 29 U/L Normal 16-61 [facility] Comment on above: Order Comment: 'TROP ' Serial specimen #1, #2 or #3: 1 Performed By: #### L 501.2450, L501.4020, L100.0100, L500.4050 ####[facility] [address] [place], [address] AST [Catalytic activity/Vol] 41 U/L High 15-37 [facility] Comment on above: Order Comment: 'TROP ' Serial specimen #1, #2 or #3: 1 Performed By: #### L 501.2450, L501.4020, L100.0100, L500.4050 ####[facility] [address] [place], [address] Bilirubin [Mass/Vol] 0.30 mg/dL Normal 0.20-1.00 [facility] Comment on above: Order Comment: 'TROP ' Serial specimen #1, #2 or #3: 1 Result Comment: For patients on eltrombopag therapy, use of Dimension [place] TBIL is not recommended. Performed By: #### L 501.2450, L501.4020, L100.0100, L500.4050 ####[facility] [address] [place], [address] BUN/CRE 13.9 RATIO Normal 10-20 [facility] Comment on above: Order Comment: 'TROP ' Serial specimen #1, #2 or #3: 1 Performed By: #### L 501.2450, L501.4020, L100.0100, L500.4050 ####[facility] [address] [place], [address] CA,Total 9.2 mg/dL Normal 8.5-10.1 [facility] Comment on above: Order Comment: 'TROP ' Serial specimen #1, #2 or #3: 1 Performed By: #### L 501.2450, L501.4020, L100.0100, L500.4050 ####[facility] [address] [place], [address] Chloride [Moles/Vol] 105 mmol/L Normal 98-107 [facility] Comment on above: Order Comment: 'TROP ' Serial specimen #1, #2 or #3: 1 Performed By: #### L 501.2450, L501.4020, L100.0100, L500.4050 ####[facility] [address] [place], [address] CO2 [Moles/Vol] 25.0 mmol/L Normal 21.0-32.0 [facility] Comment on above: Order Comment: 'TROP ' Serial specimen #1, #2 or #3: 1 Performed By: #### L 501.2450, L501.4020, L100.0100, L500.4050 ####[facility] [address] [place], [address] Creatinine [Mass/Vol] 1.08 mg/dL Normal 0.70-1.30 [facility] Comment on above: Order Comment: 'TROP ' Serial specimen #1, #2 or #3: 1 Result Comment: The validity of the calculated GFR GFRAA in patients over70 years has not been determined. Clinical correlation isessential. Performed By: #### L 501.2450, L501.4020, L100.0100, L500.4050 ####[facility] [address] [place], [address] ECRCL 75.77 ml/min Normal [facility] Comment on above: Order Comment: 'TROP ' Serial specimen #1, #2 or #3: 1 Performed By: #### L 501.2450, L501.4020, L100.0100, L500.4050 ####[facility] [address] [place], [address] EST GFR - AA 86 mL/min Normal >60 [facility] Comment on above: Order Comment: 'TROP ' Serial specimen #1, #2 or #3: 1 Result Comment: Afri can [place] GFR Calc Performed By: #### L 501.2450, L501.4020, L100.0100, L500.4050 ####[facility] [address] [place], [address] GAP 8 Normal 5-15 [facility] Comment on above: Order Comment: 'TROP ' Serial specimen #1, #2 or #3: 1 Performed By: #### L 501.2450, L501.4020, L100.0100, L500.4050 ####[facility] [address] [place], [address] GFR/1.73 sq M.predicted among non-blacks MDRD (S/P/Bld) [Vol rate/Area] 71 mL/min/{1.73_m2} Normal >60 [facility] Comment on above: Order Comment: 'TROP ' Serial specimen #1, #2 or #3: 1 Result Comment: Non- GFR Calc Performed By: #### L 501.2450, L501.4020, L100.0100, L500.4050 ####[facility] [address] [place], [address] Globulin (S) [Mass/Vol] 3.9 g/dL Normal 2.2-4.2 [facility] Comment on above: Order Comment: 'TROP ' Serial specimen #1, #2 or #3: 1 Performed By: #### L 501.2450, L501.4020, L100.0100, L500.4050 ####[facility] [address] [place], [address] Glucose [Mass/Vol] 107 mg/dL High 74-106 [facility] Comment on above: Order Comment: 'TROP ' Serial specimen #1, #2 or #3: 1 Result Comment: Fast ing Glucose result from 100 to 125 mg/dLsuggests IMPAIRED HOMEOSTASIS per A.D.A. criteria. Performed By: #### L 501.2450, L501.4020, L100.0100, L500.4050 ####[facility] [address] [place], [address] Potassium [Moles/Vol] 4.2 mmol/L Normal 3.5-5.1 [facility] Comment on above: Order Comment: 'TROP ' Serial specimen #1, #2 or #3: 1 Performed By: #### L 501.2450, L501.4020, L100.0100, L500.4050 ####[facility] [address] [place], [address] Sodium [Moles/Vol] 138 mmol/L Normal 136-145 [facility] Comment on above: Order Comment: 'TROP ' Serial specimen #1, #2 or #3: 1 Performed By: #### L 501.2450, L501.4020, L100.0100, L500.4050 ####[facility] [address] [place], [address] T PROT 7.5 g/dL Normal 6.4-8.2 [facility] Comment on above: Order Comment: 'TROP ' Serial specimen #1, #2 or #3: 1 Performed By: #### L 501.2450, L501.4020, L100.0100, L500.4050 ####[facility] [address] [place], [address] Urea nitrogen [Mass/Vol] 15 mg/dL Normal 7-18 [facility] Comment on above: Order Comment: 'TROP ' Serial specimen #1, #2 or #3: 1 Performed By: #### L 501.2450, L501.4020, L100.0100, L500.4050 ####[facility] [address] [place], [address] Emergency Department Summary on 12-18-2023 Emergency Department Summary Normal [facility] L501.4020on 12-18-2023 TROPONIN-I HS 14 pg/mL Normal 3.0-78.0 [facility] Comment on above: Order Comment: 'TROP ' Serial specimen #1, #2 or #3: 1 Result Comment: Plea se Note: New Test Units and Gender Specific Reference Ranges. For more information see Policy Stat Procedure [place] High Sensitivity Troponin (TNIH) and attachments. Performed By: #### L 501.2450, L501.4020, L100.0100, L500.4050 ####[facility] [address] [place], [address] Lipaseon 12-18-2023 Lipase [Catalytic activity/Vol] 58 U/L Normal 13-75 [facility] Comment on above: Order Comment: 'TROP ' Serial specimen #1, #2 or #3: 1 Result Comment: Plea se note:LIPASE revised reference range effective 22.New Lipase methodology. Expected to produce lower valuesthan the previous assay method.NEW Reference Range: 13 - 75 U/L Performed By: #### L 501.2450, L501.4020, L100.0100, L500.4050 ####[facility] [address] [place], [address] Urinalysis, Completeon 12-17 BACTERIA Normal None Seen [facility] Comment on above: Order Comment: CLEAN CATCH Result Comment: PT D ISCHARGED Performed By: #### L 400.0001 ####[facility] [address] [place], [address] BILIRUBIN URINE Normal Negative [facility] Comment on above: Order Comment: CLEAN CATCH Result Comment: PT D ISCHARGED Performed By: #### L 400.0001 ####[facility] [address] [place], [address] Clarity (U) Normal Clear [facility] Comment on above: Order Comment: CLEAN CATCH Result Comment: PT D ISCHARGED Performed By: #### L 400.0001 ####[facility] [address] [place], [address] Color (U) Normal Yellow [facility] Comment on above: Order Comment: CLEAN CATCH Result Comment: PT D ISCHARGED Performed By: #### L 400.0001 ####[facility] [address] [place], [address] EPI,SQUAMOUS Normal 0-5 [facility] Comment on above: Order Comment: CLEAN CATCH Result Comment: PT D ISCHARGED Performed By: #### L 400.0001 ####[facility] [address] [place], [address] GLUCOSE, UR Normal Normal [facility] Comment on above: Order Comment: CLEAN CATCH Result Comment: PT D ISCHARGED Performed By: #### L 400.0001 ####[facility] [address] [place], [address] KETONE UR Normal Negative [facility] Comment on above: Order Comment: CLEAN CATCH Result Comment: PT D ISCHARGED Performed By: #### L 400.0001 ####[facility] [address] [place], [address] LEUK ESTERASE Normal Negative [facility] Comment on above: Order Comment: CLEAN CATCH Result Comment: PT D ISCHARGED Performed By: #### L 400.0001 ####[facility] [address] [place], [address] Mucus Ql (Urine sed) Normal [facility] Comment on above: Order Comment: CLEAN CATCH Result Comment: PT D ISCHARGED Performed By: #### L 400.0001 ####[facility] [address] [place], [address] Nitrite Ql (U) Normal Negative [facility] Comment on above: Order Comment: CLEAN CATCH Result Comment: PT D ISCHARGED Performed By: #### L 400.0001 ####[facility] [address] [place], [address] OCCULT BLOOD-UR Normal Negative [facility] Comment on above: Order Comment: CLEAN CATCH Result Comment: PT D ISCHARGED Performed By: #### L 400.0001 ####[facility] [address] [place], [address] pH UR Normal 5.0 - 8.0 [facility] Comment on above: Order Comment: CLEAN CATCH Result Comment: PT D ISCHARGED Performed By: #### L 400.0001 ####[facility] [address] [place], [address] PROT DIPSTX Normal Negative [facility] Comment on above: Order Comment: CLEAN CATCH Result Comment: PT D ISCHARGED Performed By: #### L 400.0001 ####[facility] [address] [place], [address] RBC Normal 0-5 [facility] Comment on above: Order Comment: CLEAN CATCH Result Comment: PT D ISCHARGED Performed By: #### L 400.0001 ####[facility] [address] [place], [address] SP.GR. DIPSTX Normal 1.002-1.030 [facility] Comment on above: Order Comment: CLEAN CATCH Result Comment: PT D ISCHARGED Performed By: #### L 400.0001 ####[facility] [address] [place], [address] UR Preservative Normal [facility] Comment on above: Order Comment: CLEAN CATCH Result Comment: PT D ISCHARGED Performed By: #### L 400.0001 ####[facility] [address] [place], [address] UROBILI Normal Normal [facility] Comment on above: Order Comment: CLEAN CATCH Result Comment: PT D ISCHARGED Performed By: #### L 400.0001 ####[facility] [address] [place], [address] WBC Normal 0-5 [facility] Comment on above: Order Comment: CLEAN CATCH Result Comment: PT D ISCHARGED Performed By: #### L 400.0001 ####[facility] [address] [place], [address] Lipaseon 12-09-2023 Lipase [Catalytic activity/Vol] 58 U/L Normal 13-75 [facility] Comment on above: Result Comment: Plea se note:LIPASE revised reference range effective 22.New Lipase methodology. Expected to produce lower valuesthan the previous assay method.NEW Reference Range: 13 - 75 U/L Performed By: #### L 501.2450, L500.3400 ####[facility] [address] [place], [address] Liver Profileon 12-09-2023 Albumin [Mass/Vol] 3.5 g/dL Normal 3.2-5.0 [facility] Comment on above: Performed By: #### L 501.2450, L500.3400 ####[facility] [address] [place], [address] ALK P 70 U/L Normal 45-117 [facility] Comment on above: Performed By: #### L 501.2450, L500.3400 ####[facility] [address] [place], [address] ALT [Catalytic activity/Vol] 35 U/L Normal 16-61 [facility] Comment on above: Performed By: #### L 501.2450, L500.3400 ####[facility] [address] [place], [address] AST [Catalytic activity/Vol] 31 U/L Normal 15-37 [facility] Comment on above: Performed By: #### L 501.2450, L500.3400 ####[facility] [address] [place], [address] Bilirubin [Mass/Vol] 0.70 mg/dL Normal 0.20-1.00 [facility] Comment on above: Result Comment: For patients on eltrombopag therapy, use of Dimension [place] TBIL is not recommended. Performed By: #### L 501.2450, L500.3400 ####[facility] [address] [place], [address] Bilirubin.direct [Mass/Vol] 0.25 mg/dL Normal 0.00-0.30 [facility] Comment on above: Performed By: #### L 501.2450, L500.3400 ####[facility] [address] [place], [address] Globulin (S) [Mass/Vol] 4.0 g/dL Normal 2.2-4.2 [facility] Comment on above: Performed By: #### L 501.2450, L500.3400 ####[facility] [address] [place], [address] T PROT 7.5 g/dL Normal 6.4-8.2 [facility] Comment on above: Performed By: #### L 501.2450, L500.3400 ####[facility] [address] [place], [address] Surgery Specimen Level Ibis 12-09-2023 Surgery Specimen Level IV Normal [facility] Comment on above: Performed By: #### P SUIV ####[facility] [address] [place], [address] PROGRESSon 04-01-2018 Protein mass conc HNO ID: [id number] Author: Ki Galaviz Service: (none) Author Type: Physician Type: Progress Notes Filed: 04/01/2018 9:54 AM Note Text: OPERATIVE NOTATION FOR [facility] SURGICAL PROCEDURE. March 17, 2018 Brian Segura 1950 [id number] male PROCEDURE: EGD WITH BIOPSY - [id number] SURGEON: Baljit Galaviz M.D. FACS STUDIO SALES ASSOCIATE: None DEPT: [facility] PROVIDER: [id number] Galaviz MD POS: [id number] DIAGNOSIS: (K92.0) Hematemesis, presence of nausea not [...] Clean Contaminated Operative note dictated in the [facility] dictation system. Ki Galaviz MD [facility] Encounters Encounter Date Encounter Type Care Provider Facility Start: 11-09-2024 End: 11-09-2024 Emergency department patient visit [facility] Facility:[facility] Start: 11-06-2024 End: 11-07-2024 Emergency department patient visit [facility] Facility:[facility] Start: 10-15-2024 End: 10-15-2024 Emergency department patient visit Michele Dennison Facility:[facility] Start: 10-13-2024 End: 10-13-2024 Emergency department patient visit Brock Garcia Facility:[facility] Start: 10-13-2024 End: 10-13-2024 Emergency department patient visit Mingo Haddad Facility:[facility] Start: 10-01-2024 End: 10-01-2024 Emergency department patient visit [facility] Facility:[facility] Start: 07-25-2024 End: 07-25-2024 Emergency department patient visit Guicho Omalley Facility:[facility] Start: 07-14-2024 End: 07-14-2024 Emergency department patient visit Alfred Bailey Facility:[facility] Start: 07-10-2024 End: 07-10-2024 ambulatory Milena Smith Facility:[facility] Start: 07-05-2024 End: 07-05-2024 ambulatory Milena Smith Facility:[facility] Start: 06-21-2024 End: 06-21-2024 ambulatory Alfred Bailey Facility:[facility] Start: 06-07-2024 End: 06-07-2024 Emergency department patient visit Brock RichardfideliajlAdamsIsidro Facility:[facility] Start: 05-28-2024 End: 05-28-2024 Emergency department patient visit Alfred Bailey Facility:[facility] Start: 05-26-2024 End: 05-26-2024 Emergency department patient visit Alfred Bailey Facility:[facility] Start: 05-21-2024 ambulatory Romina Guzehraa OLS Facili ty:[facility] Start: 04-30-2024 ambulatory Romina Gudla OLS Facili ty:[facility] Start: 04-22-2024 End: 04-27-2024 ambulatory David Cespedes Facility:[facility] Start: 03-07-2024 End: 03-07-2024 Emergency department patient visit Alfred Bailey Facility:[facility] Start: 02-29-2024 End: 02-29-2024 ambulatory Alfred Bailey Facility:[facility] Start: 02-20-2024 End: 02-20-2024 Emergency department patient visit Alfred Bailey Facility:[facility] Start: 02-03-2024 End: 02-03-2024 ambulatory Alfred Bailey Facility:[facility] Start: 01-27-2024 End: 01-27-2024 ambulatory Vishnu Doyle Facility:[facility] Start: 01-27-2024 End: [facility] Start: 12-30-2023 End: 12-30-2023 ambulatory Vishnu Vivek Facility:[facility] Start: 12-18-2023 End: 12-19-2023 Emergency department patient visit Chino Jaimes Facility:[facility] Start: 12-09-2023 End: 12-09-2023 ambulatory Alfred Bailey Facility:[facility] Start: 04-13-2023 End: 04-14-[address] JASSON BLANK MD Facility:[facility] Start: 04-13-2023 End: 04-13-[address] JASSON BLANK MD [facility] Procedures Date Procedure Procedure Detail [...] Immunization Date Immunization Notes Care Provider Fa [facility] 07-10-2013 pneumococcal polysaccharide vaccine, [address] JASSON BLANK MD [facility] Payers Date Payer Category Payer Self-pay 2023 Unknown [id number] 1950 Unknown [id number] 2.16.8 40.1.920220.3.579.2.627 Unknown [id number] 2.16.8 40.1.950501.3.579.2.462 Unknown [id number] 2.16.8 40.1.670208.3.579.2.462 Unknown [id number] 2.16.8 40.1.124530.3.579.2.462 Unknown [id number] 2.16.8 40.1.004954.3.579.2.462 Unknown [id number] 2.16.8 40.1.921490.3.579.2.462 Unknown [id number] 2.16.8 40.1.788901.3.579.2.462 Unknown [id number] 2.16.8 40.1.222453.3.579.2.462 Unknown [id number] 2.16.8 40.1.624860.3.579.2.462 Unknown [id number] 2.16.8 40.1.941258.3.579.2.462 Unknown [id number] 2.16.8 40.1.521119.3.579.2.462 Unknown [id number] 2.16.8 40.1.756788.3.579.2.462 Unknown [id number] 2.16.8 40.1.549762.3.579.2.462 Unknown [id number] 2.16.8 40.1.269220.3.579.2.462 Unknown [id number] 2.16.8 40.1.081672.3.579.2.462 Unknown [id number] 2.16.8 40.1.932314.3.579.2.462 Unknown [id number] 2.16.8 40.1.982449.3.579.2.462 Unknown [id number] 2.16.8 40.1.090939.3.579.2.462 Unknown [id number] 2.16.8 40.1.868087.3.579.2.462 Unknown [id number] 2.16.8 40.1.713039.3.579.2.462 Unknown [id number] 2.16.8 40.1.753306.3.579.2.462 Unknown [id number] 2.16.8 40.1.369866.3.579.2.462 Unknown [id number] 2.16.8 40.1.395044.3.579.2.462 Unknown [id number] 2.16.8 40.1.972004.3.579.2.462 Unknown [id number] 2.16.8 40.1.149483.3.579.2.462 Unknown [id number] 2.16.8 40.1.868941.3.579.2.462 Unknown [id number] 2.16.8 40.1.149288.3.579.2.462 Unknown [id number] 2.16.8 40.1.935560.3.579.2.462 Unknown [id number] 2.16.8 40.1.646907.3.579.2.462 Unknown [id number] 2.16.8 40.1.425114.3.579.2.462 Unknown [id number] 2.16.8 40.1.558297.3.579.2.462 Unknown [id number] 2.16.8 40.1.945417.3.579.2.462 Unknown [id number] 2.16.8 40.1.289885.3.579.2.462 Unknown [id number] 2.16.8 40.1.027822.3.579.2.462 Social History Date Type Detail Facility Tobacco smoking status Ex-smoker (finding ) [facility] Sex Assigned At Male [facility] Discharge summary note 04-27-2024 Note Date & Type Note Facility 04-27-2024 Note [facility] Consultation note 04-24-2024 Note Date & Type Note Facility 04-24-2024 Note [facility] Clinical Note 04-13-2023 Note Date & Type Note Facility 04-13-2023 Note Sinus rhythm Probable left atrial enlargement Anteroseptal infarct, age indeterminate Electronic Signature: NEVILLE UNDERWOOD MD 04/13/2023 16:41:28 [facility] Evaluation + Plan note Note Date & Type Note Facility Evaluation + Plan note No data available for this section [facility] Hospital Discharge instructions Note Date & Type Note Facility Hospital Discharge instructions No data available for this section [facility] Progress note Note Date & Type Note Facility Progress note No data available for this section [facility] Summary Purpose Family History No Family History Records Found No data available for this section No Family History Records FoundNo Family History Records Found Advance Directives No Advanced Directives Records FoundNo Advanced Directives Records FoundNo Advanced Directives Records Found Procedure Findings Note Operative Note (Enc) (GENSWS ) Progress Notes: Ki Galaviz MD 04/01/2018 9:54 AM Signed OPERATIVE NOTATION FOR [facility] SURGICAL PROCEDURE. March 17, 2018 Brian Segura 1950 [id number] male PROCEDURE: EGD WITH BIOPSY - [id number] SURGEON: Baljit Galaviz M.D. FACS STUDIO SALES ASSOCIATE: None DEPT: W PROVIDER: [id number] Galaviz MD POS: [id number] DIAGNOSIS: (K92.0) Hematemesis, presence of nausea not [...] Clean Contaminated Operative note dictated in the [facility] dictation sys (more content not included)... Additional Source Comments (unrecognized sect ion and content) No Status Records FoundNo Status Records FoundNo Status Records Found INFORMATION SOURCE (unrecogn ized section and content) DATE CREATED AUTHOR 04/01/2018 [facility] DATE CREATED AUTHOR AUTHOR'S ORGANIZ ATION 04/14/2023 [facility] ([place]) DATE CREATED AUTHOR AUTHOR'S ORGANIZ ATION 11/20/2024 [facility] Patient Care team informatio n (unrecognized section and content) Care Team Personnel Name: KI LANZA JR, MD Member Role: Primary Care Physician Address: Address: [address] [place] [id number] Care Team Related Persons Name: URIEL SEGURA Address: Home [address] [place] [id number] [place] FOR RECORDS PERTAINING TO PATIENTS WHO [...] BE BASED ON THE PRIMARY CLINICAL RECORDS. [facility] [employer] [facility]. provides no warranty or guarantee of the accuracy or completeness of information in this document.
[2025-01-30] MEDS: 0.9% Normal Saline (1000mL) 1,000 ML 1000 ML IV (23:17)
[2025-01-30] MEDS: DiphenhydrAMINE 50 MG/ML Syringe 25 MG IV (23:19)
[2025-01-30 23:28] VITALS: O2SAT 79
[2025-01-30 23:29] VITALS: O2SAT 93
[2025-01-30 23:33] LABS: Hematocrit 46.5 % (40-54); Hemoglobin 16.0 g/dL (13.0-16.5); Immature Granulocytes Count 0.010 X10^3/uL (0.0-0.0); Mean Corp Hgb Conc 34.4 g/dL (32-36); Mean Corpuscular Volume 94.9 fL (80-94); Mean Platelet Vol. 10.0 fl (6.2-12.0); NRBC Flagged by Analyzer 0 % (0-5); Platelet Count 262 K/mm3 (150-450); RBC Distribution Width CV 13.7 % (11.6-14.6); RBC Distribution Width SD 47.5 fl (35.1-43.9); Red Blood Count 4.90 M/mm3 (4.6-6.2); White Blood Count 5.0 K/mm3 (4.4-11.0)
[2025-01-30 23:50] LABS: Anion Gap 15 (7-18); BUN 6 mg/dL (4-19); BUN/Creat Ratio 7.4 RATIO (10-20); Calcium,Total 8.3 mg/dL (7.6-11.0); Carbon Dioxide 24.8 mmol/L (20.0-29.0); Chloride 98 mmol/L (96-106); Estimated Creatinine Clearance 91.11 ml/min (50-250); Glucose 100 mg/dL (70-99); Potassium 3.5 mmol/L (3.5-5.1)
[2025-01-31 00:04] VITALS: O2SAT 100
[2025-01-31 00:28] VITALS: BP 131/88; PULSE 84; RESP 18; TEMP 35.8; O2SAT 100
== END 2025-01-31 00:33 | disposition home or self-care (01) ==
PROVIDERS: Emergency Provider Emergency Medicine; PCP Family Medicine; Visit Provider Emergency Medicine
DX: R11.2 Nausea with vomiting, unspecified (principal); J44.9 Chronic obstructive pulmonary disease, unspecified; I10 Essential (primary) hypertension; Z87.891 Personal history of nicotine dependence; Z85.828 Personal history of other malignant neoplasm of skin; Z79.899 Other long term (current) drug therapy; F41.9 Anxiety disorder, unspecified; K21.9 Gastro-esophageal reflux disease without esophagitis; J02.9 Acute pharyngitis, unspecified
CPT/HCPCS: 80048; 85025; 87651; 96374; 96375; 99283; J2405